=== PATIENT | female | born 1975 | race Caucasian/White ===

== ENCOUNTER 2019-10-26 16:47 | Emergency (ER) | payer MEDICARE, SELFPAY ==
[2019-10-26 17:15] VITALS: BP 121/90; PULSE 81; RESP 16; TEMP 36.5; O2SAT 99; BMI 20.5
--- NOTE | 2019-10-26 18:41 | ED_ITS ---
Entered by [id number], acting as scribe for Liliana Anderson MD Oct 26, 2019 16:47 HPI - General Adult General: Chief complaint: General Medical Stated complaint: flu like symptoms Time Seen by Provider: 10/26/19 19:01 Source: patient Mode of arrival: wheelchair Limitations: no limitations History of Present Illness: HPI narrative: 44-year-old female states she had generalized weakness for last 2 days. She has had low-grade fevers as well states she has had some nausea. She denies any abdominal pain. She had a slight cough. She denies any worsening or improving factors. Patient is normotensive here. She is afebrile here. Onset (ago): hour(s) Associated symptoms: Deny chest pain, dyspnea, headache(s), nausea, rash or vomiting Review of Systems Const: Denies: fever or chills Eyes: Denies: change in vision ENMT: Denies: throat pain or mouth pain Card: Denies: chest pain Resp: Denies: shortness of breath GI: Denies: abdominal pain, nausea, vomiting or diarrhea : Denies: difficulty urinating Musc: Denies: back pain or joint pain Skin/Breast: Denies: rash Neuro: Denies: headache or behavioral changes Psych: Denies: depression Endo: Denies: excessive urination Raul/Lymph: Denies: easy bruising All/Imm: Denies: hives PFSH ED PFSH: Statuses (acute, chronic, etc) shown below reflect problem list status as previously entered and may not be historically accurate Social History Smoking and tobacco status: former smoker Physical Exam Const: COMMON NORMALS: no apparent distress, oriented x3 and healthy appearing HENMT: COMMON NORMALS: normocephalic and external nose normal HEAD & SCALP: normocephalic NOSE: external nose normal Eye: COMMON NORMALS: PERRL PUPIL: Yes PERRL Neck/C-Spine: COMMON NORMALS: full ROM and no lymphadenopathy Chest: COMMONS NORMALS: inspection of chest normal Resp: COMMON NORMALS: normal respiratory effort, no use of accessory muscles and clear to auscultation bilaterally AUSCULTATION: clear to auscultation bilaterally Cardio: COMMON NORMALS: regular rate and regular rhythm RATE: regular rate RHYTHM: regular rhythm GI: COMMON NORMALS: normal to inspection, nondistended, normoactive bowel sounds, soft to palpation, non-tender and no masses PALPATION: Yes soft Back/Pelvis: THORACIC SPINE/UPPER BACK: Yes normal to inspection Extremity: COMMON NORMALS: normal to inspection, full ROM and normal capillary refill Neuro: COMMON NORMALS: oriented x3 Psych: COMMON NORMALS: mental status grossly normal and cooperative Skin: COMMON NORMALS: no rashes or lesions noted GENERAL SKIN EXAM: no rashes or lesions noted Course Vital Signs: Vital signs: Vital Signs Temperature 97.9 F 10/26/19 23:24 Pulse Rate 90 10/26/19 23:24 Respiratory Rate 18 10/26/19 23:24 Blood Pressure 109/79 10/26/19 23:24 Pulse Oximetry 100 10/26/19 23:24 MDM - General Adult MDM Narrative: Medical decision making narrative: Patient presents with generalized weakness and was found to have a urinary tract infection. Patient given IV antibiotics and will prescribe Keflex for home. She is to follow-up with primary care doctor in 2 to 4 days and return if worsening. Lab Data: Labs: Lab Results 10/26/19 10/26/19 10/26/19 Range/Units 17:30 19:45 19:45 WBC Cancelled Corrected WBC Cancelled RBC Cancelled Hgb Cancelled Hct Cancelled MCV Cancelled MCH Cancelled MCHC Cancelled RDW Cancelled Plt Count Cancelled MPV Cancelled Gran % Cancelled Neut % (Auto) Cancelled Lymph % (Auto) Cancelled [place] % (Auto) Cancelled Eos % (Auto) Cancelled Baso % (Auto) Cancelled Neut # (Auto) Cancelled Lymph # (Auto) Cancelled [place] # (Auto) Cancelled Eos # (Auto) Cancelled Baso # (Auto) Cancelled Absolute Gran (aut o) Cancelled Nucleated RBC % (a uto) Cancelled Nucleated RBCs # Cancelled Sodium 134 L (136-145) mmol/L Potassium 4.0 (3.5-5.1) mmol/L Chloride 102 (98-107) mmol/L Carbon Dioxide 17 L (22-29) mmol/L Anion Gap 19.0 (5-19) BUN 13 (6-20) mg/dL Creatinine 0.8 (0.5-0.9) mg/dL GFR Calculation 77.9 L (90-130) mL/min Glucose 93 (74-109) mg/dL Calcium 10.1 H (8.6-10.0) mg/Dl Total Bilirubin 0.3 (0.15-1.2) mg/dL AST 15 (0-32) U/L ALT 9 (0-33) U/L Alkaline Phosphata se 91 (35-105) IU/L Total Protein 8.6 (6.6-8.7) g/dL Albumin 3.9 (3.5-5.2) g/dL Globulin 4.7 H (1.3-4.6) g/dL Lipase 19 (13-60) U/L Urine Color (Yellow) Urine Appearance (CLEAR) Urine pH (5-7) Ur Specific Gravit y (1.005-1.030) Urine Protein (Negative) Urine Glucose (UA) (Normal) Urine Ketones (Negative) Urine Occult Blood (Negative) Urine Nitrate (Negative) Urine Bilirubin (Negative) Prot Sulfosalicyli c Acd (Negative) Urine Urobilinogen (Negative) mg/dL Ur Leukocyte Maggi ase (Negative) Urine RBC (0-2) /hpf Urine WBC (0-5) /hpf Ur Squamous Epith Cells (0-5) Urine Bacteria (NONE) Influenza Type A A g Negative (Negative) POC Influenza B Ag Negative (Negative) 10/26/19 10/26/19 Range/Units 20:20 20:30 WBC 9.1 Corrected WBC RBC 4.56 Hgb 13.4 Hct 42.7 MCV 93.6 MCH 29.4 MCHC 31.4 RDW 13.5 Plt Count 382 MPV 10.2 Gran % Neut % (Auto) 72.5 Lymph % (Auto) 19.5 [place] % (Auto) 6.2 Eos % (Auto) 1.3 Baso % (Auto) 0.3 Neut # (Auto) 6.6 Lymph # (Auto) 1.8 [place] # (Auto) 0.6 Eos # (Auto) 0.1 Baso # (Auto) 0.0 Absolute Gran (aut o) Nucleated RBC % (a uto) 0 Nucleated RBCs # 0.0 Sodium (136-145) mmol/L Potassium (3.5-5.1) mmol/L Chloride (98-107) mmol/L Carbon Dioxide (22-29) mmol/L Anion Gap (5-19) BUN (6-20) mg/dL Creatinine (0.5-0.9) mg/dL GFR Calculation (90-130) mL/min Glucose (74-109) mg/dL Calcium (8.6-10.0) mg/Dl Total Bilirubin (0.15-1.2) mg/dL AST (0-32) U/L ALT (0-33) U/L Alkaline Phosphata se (35-105) IU/L Total Protein (6.6-8.7) g/dL Albumin (3.5-5.2) g/dL Globulin (1.3-4.6) g/dL Lipase (13-60) U/L Urine Color Yellow (Yellow) Urine Appearance Sl cloudy A (CLEAR) Urine pH 9 H (5-7) Ur Specific Gravit y 1.015 (1.005-1.030) Urine Protein 2+ H (Negative) Urine Glucose (UA) Norm (Normal) Urine Ketones 1+ H (Negative) Urine Occult Blood 3+ H (Negative) Urine Nitrate Positive H (Negative) Urine Bilirubin Neg (Negative) Prot Sulfosalicyli c Acd 1+ (Negative) Urine Urobilinogen Norm (Negative) mg/dL Ur Leukocyte Maggi ase 2+ H (Negative) Urine RBC 10-15 H (0-2) /hpf Urine WBC 40-55 H (0-5) /hpf Ur Squamous Epith Cells 0-4 H (0-5) Urine Bacteria 4+ H (NONE) Influenza Type A A g (Negative) POC Influenza B Ag (Negative) Discharge Plan Discharge Patient Disposition: Home, Self-Care Clinical Impression: Acute cystitis Qualifiers: Hematuria presence: without hematuria Qualified Code(s): N30.00 - Acute cystitis without hematuria Condition: Stable Prescriptions: New Keflex 500 mg capsule 500 mg PO Q6H 7 Days Qty: 28 RF: 0 [place] 5-325 mg tablet 1 tab PO Q8H PRN (Reason: pain) Qty: 14 RF: 0 Discharge Orders: Discharge Order (Routine); Ordered 10/26/19 Ordered By: Liliana Anderson Referrals: [id number] [Other] NOT ON FILE,DOCTOR [Primary Care Provider] - (pcp in 3-5 days) Discharge Diet: Advance as tolerated Discharge Activity: Resume usual activity Patient Instructions: Urinary Tract Infection in Women (ED) Discharge Date/Time: 10/26/19 21:21 Coding Level of Care Code ED Automated Cutting Machine Operator for Julien Magaña The documentation recorded by the [email or web address], [id number], accurately reflects the service I personally performed and the decisions made by Justin nicole Korby, MD Oct 26, 2019 16:47
--- NOTE | 2019-10-26 19:05 | W.ED.GENADLT ---
HPI - General Adult General: Chief complaint: General Medical Stated complaint: flu like symptoms Time Seen by Provider: 10/26/19 19:01 Source: patient Mode of arrival: wheelchair History of Present Illness: HPI narrative: 44 yo f came to the [place] [facility] with family with flu like symptoms. Onset was today. Pt states that she has had a cough with nausea and vomiting along with back pain. Pt states that she hurts all over her back. Pt denies a fever and chills at this time. MD complaint: poss flu Onset (ago): day(s) (today) Severity: mild Exacerbating factors: none Associated symptoms: Reports nausea and vomiting; Deny chest pain, cough or dyspnea Review of Systems General: Reports: 10 or more systems reviewed and unremarkable except in HPI and below Const: Reports: fatigue; Denies: fever ENMT: Denies: throat pain Card: Denies: chest pain Resp: Reports: productive cough; Denies: shortness of breath GI: Reports: nausea and vomiting Musc: Denies: neck pain PFSH ED PFSH: Statuses (acute, chronic, etc) shown below reflect problem list status as previously entered and may not be historically accurate Social History Smoking and tobacco status: former smoker Course Vital Signs: Vital signs: Vital Signs Temperature 97.7 F 10/26/19 17:15 Pulse Rate 81 10/26/19 17:15 Respiratory Rate 16 10/26/19 17:15 Blood Pressure 121/90 10/26/19 17:15 Pulse Oximetry 99 10/26/19 17:15 Discharge Plan Discharge Prescriptions: No Action No Known Home Medications RF: 0 Coding Level of Care Code ED Bark Tanner for Julien Magaña
--- NOTE | 2019-10-26 19:08 | XR_ITS ---
WS: [id number] Portable AP upright chest, 10/26/2019 Clinical Data: cough Comparison: Portable chest, 03/29/2019 Findings: No nodules, masses or effusions are seen. The heart is normal. The pulmonary vascularity is not increased. No pneumonia or pneumothorax is seen. There is a skinfold overlying the lateral aspec t of the right chest. There is a dextroscoliosis of the thoracic spine. The patient is had posterior fusion along with an anterior cervical fusion of the cervical spine. XR/XR chest 1V portable [id number] Impression: Negative chest.
[2019-10-26 20:24] LABS: Alanine Aminotransferase 9 U/L (0-33); Albumin Level 3.9 g/dL (3.5-5.2); Alkaline Phosphatase 91 IU/L (35-105); Aspartate Amino Transferase 15 U/L (0-32); Blood Urea Nitrogen 13 mg/dL (6-20); Calcium 10.1 mg/Dl (8.6-10.0); Carbon Dioxide 17 mmol/L (22-29); Chloride 102 mmol/L (98-107); Globulin 4.7 g/dL (1.3-4.6); Glomerular Filtration Rate 77.9 mL/min (90-130); Glucose 93 mg/dL (74-109); Lipase 19 U/L (13-60); Sodium 134 mmol/L (136-145); Total Bilirubin 0.3 mg/dL (0.15-1.2); Total Protein 8.6 g/dL (6.6-8.7)
--- NOTE | 2019-10-26 20:25 | PC.NURSE ---
Patient requested for an extra pillow for comfort, pillow was provided.
[2019-10-26] MEDS: ondansetron 2 mg/ML SDV 2 mL 4 MG IVP (20:39)
[2019-10-26] MEDS: sodium chloride 0.9% 1,000 ML 999 ML IV (20:40)
[2019-10-26 21:00] VITALS: BP 151/84; PULSE 89; RESP 19; O2SAT 99
[2019-10-26 21:12] LABS: Basophils % 0.3 %; Eosinophils # 0.1 10^3/uL (0.0-0.8); Eosinophils % 1.3 %; Hematocrit 42.7 % (37.0-47.0); Hemoglobin 13.4 g/dL (11.5-15.3); Lymphocytes # 1.8 10^3/uL (0.8-4.8); Lymphocytes % 19.5 %; Mean Corpuscular HGB Conc 31.4 g/dL (30.0-36.0); Mean Corpuscular Hemoglobin 29.4 pg (28.0-34.0); Mean Corpuscular Volume 93.6 fL (81-99); Mean Platelet Volume 10.2 fL (7.4-10.4); Monocytes # 0.6 10^3/uL (0.2-0.9); Monocytes % 6.2 %; Neutrophils # 6.6 10^3/uL (1.8-7.7); Neutrophils % 72.5 %; Nucleated Red Blood Cells % 0 %; Platelet Count 382 10^3/cmm (130-400); Red Blood Count 4.56 10^6/uL (4.1-5.3); Red Cell Distribution Width 13.5 % (12.1-15.1); White Blood Count 9.1 10^3/uL (4.0-10.0)
[2019-10-26] MEDS: morphine 4 mg/mL SDV 1 mL IVP (21:18)
[2019-10-26 21:42] LABS: Urine Color Yellow (Yellow)
[2019-10-26 21:43] LABS: Bilirubin Urine Neg (Negative); Blood Urine 3+ (Negative); Glucose Urine UA Norm (Normal); Ketones Urine 1+ (Negative); Leukocyte Esterase Urine 2+ (Negative); Nitrate Urine Positive (Negative); Protein Urine 2+ (Negative); Specific Gravity, Urine 1.015 (1.005-1.030); Urobilinogen Urine Norm (Negative); pH Urine 9 (5-7)
[2019-10-26 21:44] LABS: Sulfosalicylic Acid Urine 1+ (Negative)
[2019-10-26 22:21] LABS: Add Urine Culture? Yes; Bacteria Urine 4+; Squamous Epithelial Cell Urine 0-4 (0-5); WBC Urine 40-55 /hpf (0-5)
[2019-10-26 22:22] LABS: Influenza A by IFA Negative (Negative); Influenza B by IFA Negative (Negative)
[2019-10-26] MEDS: cefTRIAXone 1,000 MG in sodium chloride 0.9% (plus) 50 ML 100 MG IV (22:34)
[2019-10-26 23:02] LABS: Add RBC Morph No
[2019-10-26 23:03] LABS: Slide Review Slide Review Perform
[2019-10-26 23:24] VITALS: BP 109/79; PULSE 90; RESP 18; TEMP 36.6; O2SAT 100
== END 2019-10-26 21:21 | disposition home or self-care (01) ==
PROVIDERS: Family Medicine; Emergency Provider Emergency Medicine; Family Provider Psychiatry & Neurology Neurology
DX: N30.00 Acute cystitis without hematuria (principal); Z87.891 Personal history of nicotine dependence
CPT/HCPCS: 36415; 71045; 80053; 81001; 83690; 85025; 87077; 87086; 87186; 87804; 96360; 96365; 96374; 99282; J0696; J2270; J2405; J7030

== ENCOUNTER 2019-11-09 19:40 | Emergency (ER) | payer MEDICARE, SELFPAY ==
[2019-11-09 20:10] VITALS: BP 116/75; PULSE 99; RESP 17; TEMP 36.3; O2SAT 98; BMI 20.5
--- NOTE | 2019-11-09 21:11 | PC.NURSE ---
Aidee Singh at [facility] did bladder surgery, 2 months ago. Dx with bladder infection 2 weeks ago due to inadequate [place] care.
--- NOTE | 2019-11-09 21:38 | ED_ITS ---
Entered by Hanny De Jesus, acting as scribe for Abbey Gonzales Nov 09, 2019 19:40 Documented by User: Abbey Gonzales 11/10/19 00:19 HPI - Female Genitourinary General: Chief complaint: Urogenital-Female Stated complaint: bladder infection Time Seen by Provider: 11/09/19 21:38 Source: patient Mode of arrival: wheelchair Limitations: no limitations History of Present Illness: HPI Narrative: 44 yo Female presents to ED with complaint of possible bladder infection. Pt states that she has a alfaro catheter that was put in October 16. Pt states that it richards and she has pain all over. Pt also states she has had a fever. MD elicited complaint: UTI , back pain and difficulty urinating (burning) Pertinent past history: other (Alfaro Catheter) Onset (ago): unknown Location of symptoms: low back and other (Pain all over) Severity: severe Female Urogenital Radiation: Non-Radiating Severity scale (1-10): 10 Quality of pain: burning Consistency: constant Vaginal discharge: none Vaginal bleeding: none Urinary symptoms: Difficulty Urinating (burning) Exacerbating factors: none Relieving factors: none Associated symptoms: Reports fevers/chills and other (back pain); Deny abdominal pain, headache(s), nausea or syncope Treatment prior to arrival: none Review of Systems General: Reports: other (negative unless marked) Const: Reports: fever and body aches; Denies: chills, fatigue, malaise or diaphoresis Eyes: Denies: change in vision or blurry vision ENMT: Denies: throat pain, painful swallowing, hoarseness, ear pain, ear discharge, Change in hearing or nasal discharge Card: Denies: chest pain, palpitations, irregular heart rhythm, syncope, pre- syncope, shortness of breath on exertion or shortness of breath when lying down Resp: Denies: shortness of breath, productive cough, non-productive cough, wheezing, coughing up blood or chest congestion GI: Denies: abdominal pain, nausea, vomiting, vomiting blood, coffee grounds in vomit, diarrhea, constipation, cramping, blood in stool or black tarry stool : Reports: painful urination (burning); Denies: flank pain, urinary frequency, urinary urgency, decreased urine ouput, urinary incontinence or blood in urine Musc: Reports: back pain; Denies: neck pain, extremity pain, extremity swelling, joint pain, joint swelling, joint warmth or joint stiffness Skin/Breast: Denies: rash, skin tenderness or yellow skin Neuro: Denies: headache, numbness in extremities, weakness in extremities, changes in sensation, lack of coordination, difficulty walking, dizziness, vertigo or confusion Endo: Denies: excessive thirst, tired all the time, cold intolerance, excessive sweating, flushing or hot flashes Raul/Lymph: Denies: easy bruising, easy bleeding, petechiae or enlarged lymph nodes All/Imm: Denies: hives, throat swelling, tongue swelling, facial swelling or acute wheezing PFSH ED PFSH: Statuses (acute, chronic, etc) shown below reflect problem list status as previously entered and may not be historically accurate Social History Smoking and tobacco status: former smoker Physical Exam Const: COMMON NORMALS: no apparent distress, oriented x3, no limitations, healthy appearing and well nourished EXAM LIMITATIONS: no altered mental status GENERAL APPEARANCE: cooperative, well kempt and well developed ORIENTATION/CONSCIOUSNESS: Yes awake HENMT: COMMON NORMALS: normocephalic, head/scalp atraumatic, hearing grossly normal bilaterally, external ears normal, EAC's normal, external nose normal and moist oral mucous membranes HEAD & SCALP: normal to inspection, normocephalic and atraumatic FACE & SINUS: normal facial exam and face symmetric NOSE: external nose normal and nares normal EXTERNAL EAR: Yes external ears normal EXTERNAL AUDITORY CANAL: EAC's normal MOUTH: oral and palatal mucosa normal and tongue normal Eye: COMMON NORMALS: PERRL, EOMs intact bilaterally, conjunctivae normal and no scleral icterus GENERAL EYE: normal appearance of both eyes and normal light reflex CONJUNCTIVA: Yes conjunctivae normal SCLERA: sclerae normal CORNEA: Yes corneas normal PUPIL: Yes PERRL DIRECT OPHTHALMOSCOPY: Yes normal light reflex Neck/C-Spine: COMMON NORMALS: full ROM, no lymphadenopathy, supple, no meningeal signs and no JVD GENERAL: Yes normal visual inspection and Yes trachea midline CERVICAL SPINE: Yes cervical ROM normal Chest: COMMONS NORMALS: inspection of chest normal and palpation of chest normal Resp: COMMON NORMALS: normal respiratory effort, no retractions, no use of accessory muscles and clear to auscultation bilaterally EFFORT & INSPECTION: Yes able to speak in complete sentences AUSCULTATION: clear to auscultation bilaterally Cardio: COMMON NORMALS: no JVD, regular rate, regular rhythm, S1 normal heart sound, S2 normal heart sound, no gallops, no clicks, no murmurs and no rub JUGULAR VENOUS DISTENTION: no JVD RATE: regular rate RHYTHM: regular rhythm HEART SOUNDS: S1 normal and S2 normal GI: COMMON NORMALS: soft to palpation, non-tender, no hepatosplenomegaly and no masses INSPECTION: Yes normal to inspection PALPATION: Yes soft and Yes no hepatosplenomegaly : COMMON NORMALS: Yes no CVA tenderness BLADDER/KIDNEY EXAM: Yes no CVA tenderness Back/Pelvis: COMMON NORMALS: no CVA tenderness, thoracic and lumbar spine normal to inspection, no thoracic nor lumbar tenderness and thoraco-lumbar ROM normal Extremity: COMMON NORMALS: normal to inspection, full ROM, normal capillary refill, no joint enlargement, no clubbing, cyanosis or edema and no calf tenderness Neuro: COMMON NORMALS: oriented x3, CN's II-XII intact bilaterally, moves all extremities, no focal motor deficits and no sensory deficits noted MENINGEAL SIGNS: Yes no meningeal signs Psych: COMMON NORMALS: mental status grossly normal, thought process normal, cooperative, affect normal, speech normal and activity/motor behavior normal APPEARANCE: Yes well kempt SPEECH: Yes normal speech THOUGHT PROCESS: normal thought process Skin: COMMON NORMALS: no rashes or lesions noted, skin turgor normal, no jaundice, no petechiae and no mottling GENERAL SKIN EXAM: no rashes or lesions noted and turgor normal Course Vital Signs: Vital signs: Vital Signs Temperature 97.3 F L 11/09/19 20:10 Pulse Rate 99 11/09/19 20:10 Respiratory Rate 17 11/09/19 20:10 Blood Pressure 116/75 11/09/19 20:10 Pulse Oximetry 98 11/09/19 20:10 MDM - Female Lab Data: Labs: Lab Results 11/09/19 11/09/19 11/09/19 Range/Units 21:52 21:52 21:52 WBC 10.2 H (4.0-10.0) 10^3/ uL RBC 4.13 (4.1-5.3) 10^6/u L Hgb 11.6 (11.5-15.3) g/dL Hct 36.4 L (37.0-47.0) % MCV 88.1 (81-99) fL MCH 28.1 (28.0-34.0) pg MCHC 31.9 (30.0-36.0) g/dL RDW 13.1 (12.1-15.1) % Plt Count 319 (130-400) 10^3/c mm MPV 9.7 (7.4-10.4) fL Neut % (Auto) 70.4 % Lymph % (Auto) 19.6 % Mercer % (Auto) 7.3 % Eos % (Auto) 2.1 % Baso % (Auto) 0.3 % Neut # (Auto) 7.2 (1.8-7.7) 10^3/u L Lymph # (Auto) 2.0 (0.8-4.8) 10^3/u L Mercer # (Auto) 0.8 (0.2-0.9) 10^3/u L Eos # (Auto) 0.2 (0.0-0.8) 10^3/u L Baso # (Auto) 0.0 (0.0-0.1) 10^3/u L Nucleated RBC % (a uto) 0 % Nucleated RBCs # 0.0 /100WBC Sodium 138 (136-145) mmol/L Potassium 3.7 (3.5-5.1) mmol/L Chloride 103 (98-107) mmol/L Carbon Dioxide 21 L (22-29) mmol/L Anion Gap 17.7 (5-19) BUN 17 (6-20) mg/dL Creatinine 0.8 (0.5-0.9) mg/dL GFR Calculation 77.9 L (90-130) mL/min Glucose 104 (74-109) mg/dL Lactic Acid (0.5-2.2) mmol/L Calcium 9.8 (8.6-10.0) mg/Dl Magnesium 1.9 (1.7-2.3) mg/dL Total Bilirubin 0.2 (0.15-1.2) mg/dL AST 12 (0-32) U/L ALT 8 (0-33) U/L Alkaline Phosphata se 80 (35-105) IU/L Total Protein 7.4 (6.6-8.7) g/dL Albumin 4.2 (3.5-5.2) g/dL Globulin 3.2 (1.3-4.6) g/dL Lipase 24 (13-60) U/L HCG, Qual (Negative) Urine Color (Yellow) Urine Appearance (CLEAR) Urine pH (5-7) Ur Specific Gravit y (1.005-1.030) Urine Protein (Negative) Urine Glucose (UA) (Normal) Urine Ketones (Negative) Urine Occult Blood (Negative) Urine Nitrate (Negative) Urine Bilirubin (NEGATIVE) Urine Urobilinogen (Negative) mg/dL Ur Leukocyte Maggi ase (Negative) Urine RBC (0-2) /hpf Urine WBC (0-5) /hpf Ur Squamous Epith Cells (0-5) Ur Transition Epit h Cell /hpf Urine Bacteria (NONE) Influenza Type A A g (Negative) POC Influenza B Ag (Negative) 11/09/19 11/09/19 11/09/19 Range/Units 22:10 23:17 23:17 WBC (4.0-10.0) 10^3/ uL RBC (4.1-5.3) 10^6/u L Hgb (11.5-15.3) g/dL Hct (37.0-47.0) % MCV (81-99) fL MCH (28.0-34.0) pg MCHC (30.0-36.0) g/dL RDW (12.1-15.1) % Plt Count (130-400) 10^3/c mm MPV (7.4-10.4) fL Neut % (Auto) % Lymph % (Auto) % Mercer % (Auto) % Eos % (Auto) % Baso % (Auto) % Neut # (Auto) (1.8-7.7) 10^3/u L Lymph # (Auto) (0.8-4.8) 10^3/u L Mercer # (Auto) (0.2-0.9) 10^3/u L Eos # (Auto) (0.0-0.8) 10^3/u L Baso # (Auto) (0.0-0.1) 10^3/u L Nucleated RBC % (a uto) % Nucleated RBCs # /100WBC Sodium (136-145) mmol/L Potassium (3.5-5.1) mmol/L Chloride (98-107) mmol/L Carbon Dioxide (22-29) mmol/L Anion Gap (5-19) BUN (6-20) mg/dL Creatinine (0.5-0.9) mg/dL GFR Calculation (90-130) mL/min Glucose (74-109) mg/dL Lactic Acid 1.1 (0.5-2.2) mmol/L Calcium (8.6-10.0) mg/Dl Magnesium (1.7-2.3) mg/dL Total Bilirubin (0.15-1.2) mg/dL AST (0-32) U/L ALT (0-33) U/L Alkaline Phosphata se (35-105) IU/L Total Protein (6.6-8.7) g/dL Albumin (3.5-5.2) g/dL Globulin (1.3-4.6) g/dL Lipase (13-60) U/L HCG, Qual Negative (Negative) Urine Color (Yellow) Urine Appearance (CLEAR) Urine pH (5-7) Ur Specific Gravit y (1.005-1.030) Urine Protein (Negative) Urine Glucose (UA) (Normal) Urine Ketones (Negative) Urine Occult Blood (Negative) Urine Nitrate (Negative) Urine Bilirubin (NEGATIVE) Urine Urobilinogen (Negative) mg/dL Ur Leukocyte Maggi ase (Negative) Urine RBC (0-2) /hpf Urine WBC (0-5) /hpf Ur Squamous Epith Cells (0-5) Ur Transition Epit h Cell /hpf Urine Bacteria (NONE) Influenza Type A A g Negative (Negative) POC Influenza B Ag Negative (Negative) 11/09/19 Range/Units 23:17 WBC (4.0-10.0) 10^3/ uL RBC (4.1-5.3) 10^6/u L Hgb (11.5-15.3) g/dL Hct (37.0-47.0) % MCV (81-99) fL MCH (28.0-34.0) pg MCHC (30.0-36.0) g/dL RDW (12.1-15.1) % Plt Count (130-400) 10^3/c mm MPV (7.4-10.4) fL Neut % (Auto) % Lymph % (Auto) % Mercer % (Auto) % Eos % (Auto) % Baso % (Auto) % Neut # (Auto) (1.8-7.7) 10^3/u L Lymph # (Auto) (0.8-4.8) 10^3/u L Mercer # (Auto) (0.2-0.9) 10^3/u L Eos # (Auto) (0.0-0.8) 10^3/u L Baso # (Auto) (0.0-0.1) 10^3/u L Nucleated RBC % (a uto) % Nucleated RBCs # /100WBC Sodium (136-145) mmol/L Potassium (3.5-5.1) mmol/L Chloride (98-107) mmol/L Carbon Dioxide (22-29) mmol/L Anion Gap (5-19) BUN (6-20) mg/dL Creatinine (0.5-0.9) mg/dL GFR Calculation (90-130) mL/min Glucose (74-109) mg/dL Lactic Acid (0.5-2.2) mmol/L Calcium (8.6-10.0) mg/Dl Magnesium (1.7-2.3) mg/dL Total Bilirubin (0.15-1.2) mg/dL AST (0-32) U/L ALT (0-33) U/L Alkaline Phosphata se (35-105) IU/L Total Protein (6.6-8.7) g/dL Albumin (3.5-5.2) g/dL Globulin (1.3-4.6) g/dL Lipase (13-60) U/L HCG, Qual (Negative) Urine Color Yellow (Yellow) Urine Appearance Sl hazy (CLEAR) Urine pH 7 (5-7) Ur Specific Gravit y 1.010 (1.005-1.030) Urine Protein 1+ H (Negative) Urine Glucose (UA) Norm (Normal) Urine Ketones 1+ H (Negative) Urine Occult Blood 3+ H (Negative) Urine Nitrate Positive H (Negative) Urine Bilirubin Neg (NEGATIVE) Urine Urobilinogen Norm (Negative) mg/dL Ur Leukocyte Maggi ase 2+ H (Negative) Urine RBC Too numerous to c nt H (0-2) /hpf Urine WBC Too numerous to c nt H (0-5) /hpf Ur Squamous Epith Cells 25-40 H (0-5) Ur Transition Epit h Cell 5-10 /hpf Urine Bacteria 4+ H (NONE) Influenza Type A A g (Negative) POC Influenza B Ag (Negative) Discharge Plan Discharge Patient Disposition: Home, Self-Care Clinical Impression: Urinary tract infection Qualifiers: Urinary tract infection type: acute cystitis Hematuria presence: without hematuria Qualified Code(s): N30.00 - Acute cystitis without hematuria Condition: Stable Prescriptions: New Macrobid 100 mg capsule 100 mg PO BID 7 Days Qty: 14 RF: 0 No Action [place] 5-325 mg tablet 1 tab PO Q8H PRN (Reason: pain) Qty: 14 RF: 0 Discharge Orders: Discharge Order (Routine); Ordered 11/10/19 Ordered By: Liliana Anderson Referrals: [id number] [Other] NOT ON FILE,DOCTOR [Primary Care Provider] - Discharge Diet: Advance as tolerated Discharge Activity: Resume usual activity Patient Instructions: Urinary Tract Infection in Women (ED) Coding Level of Care Code ED Deck Supervisor for Chg Fwd Exam Problem Focused Documented by User: Liliana Anderson MD 11/10/19 03:39 HPI - Female Genitourinary General: Chief complaint: Urogenital-Female Stated complaint: bladder infection Time Seen by Provider: 11/09/19 21:38 PFSH ED PFSH: Statuses (acute, chronic, etc) shown below reflect problem list status as previously entered and may not be historically accurate Social History Smoking and tobacco status: former smoker Course Vital Signs: Vital signs: Vital Signs Temperature 97.3 F L 11/09/19 20:10 Pulse Rate 99 11/09/19 20:10 Respiratory Rate 17 11/09/19 20:10 Blood Pressure 116/75 11/09/19 20:10 Pulse Oximetry 98 11/09/19 20:10 MDM - Female MDM Narrative: Medical decision making narrative: Patient presents here with acute cystitis. Patient has no signs of pyelonephritis. Patient's lactate level is normal. Patient's lab work is normal as well. Will place patient on Macrobid and patient is stable for discharge and is return if worsening. Lab Data: Labs: Lab Results 11/09/19 11/09/19 11/09/19 Range/Units 21:52 21:52 21:52 WBC 10.2 H (4.0-10.0) 10^3/ uL RBC 4.13 (4.1-5.3) 10^6/u L Hgb 11.6 (11.5-15.3) g/dL Hct 36.4 L (37.0-47.0) % MCV 88.1 (81-99) fL MCH 28.1 (28.0-34.0) pg MCHC 31.9 (30.0-36.0) g/dL RDW 13.1 (12.1-15.1) % Plt Count 319 (130-400) 10^3/c mm MPV 9.7 (7.4-10.4) fL Neut % (Auto) 70.4 % Lymph % (Auto) 19.6 % Mercer % (Auto) 7.3 % Eos % (Auto) 2.1 % Baso % (Auto) 0.3 % Neut # (Auto) 7.2 (1.8-7.7) 10^3/u L Lymph # (Auto) 2.0 (0.8-4.8) 10^3/u L Mercer # (Auto) 0.8 (0.2-0.9) 10^3/u L Eos # (Auto) 0.2 (0.0-0.8) 10^3/u L Baso # (Auto) 0.0 (0.0-0.1) 10^3/u L Nucleated RBC % (a uto) 0 % Nucleated RBCs # 0.0 /100WBC Sodium 138 (136-145) mmol/L Potassium 3.7 (3.5-5.1) mmol/L Chloride 103 (98-107) mmol/L Carbon Dioxide 21 L (22-29) mmol/L Anion Gap 17.7 (5-19) BUN 17 (6-20) mg/dL Creatinine 0.8 (0.5-0.9) mg/dL GFR Calculation 77.9 L (90-130) mL/min Glucose 104 (74-109) mg/dL Lactic Acid (0.5-2.2) mmol/L Calcium 9.8 (8.6-10.0) mg/Dl Magnesium 1.9 (1.7-2.3) mg/dL Total Bilirubin 0.2 (0.15-1.2) mg/dL AST 12 (0-32) U/L ALT 8 (0-33) U/L Alkaline Phosphata se 80 (35-105) IU/L Total Protein 7.4 (6.6-8.7) g/dL Albumin 4.2 (3.5-5.2) g/dL Globulin 3.2 (1.3-4.6) g/dL Lipase 24 (13-60) U/L HCG, Qual (Negative) Urine Color (Yellow) Urine Appearance (CLEAR) Urine pH (5-7) Ur Specific Gravit y (1.005-1.030) Urine Protein (Negative) Urine Glucose (UA) (Normal) Urine Ketones (Negative) Urine Occult Blood (Negative) Urine Nitrate (Negative) Urine Bilirubin (NEGATIVE) Urine Urobilinogen (Negative) mg/dL Ur Leukocyte Maggi ase (Negative) Urine RBC (0-2) /hpf Urine WBC (0-5) /hpf Ur Squamous Epith Cells (0-5) Ur Transition Epit h Cell /hpf Urine Bacteria (NONE) Influenza Type A A g (Negative) POC Influenza B Ag (Negative) 11/09/19 11/09/19 11/09/19 Range/Units 22:10 23:17 23:17 WBC (4.0-10.0) 10^3/ uL RBC (4.1-5.3) 10^6/u L Hgb (11.5-15.3) g/dL Hct (37.0-47.0) % MCV (81-99) fL MCH (28.0-34.0) pg MCHC (30.0-36.0) g/dL RDW (12.1-15.1) % Plt Count (130-400) 10^3/c mm MPV (7.4-10.4) fL Neut % (Auto) % Lymph % (Auto) % Mercer % (Auto) % Eos % (Auto) % Baso % (Auto) % Neut # (Auto) (1.8-7.7) 10^3/u L Lymph # (Auto) (0.8-4.8) 10^3/u L Mercer # (Auto) (0.2-0.9) 10^3/u L Eos # (Auto) (0.0-0.8) 10^3/u L Baso # (Auto) (0.0-0.1) 10^3/u L Nucleated RBC % (a uto) % Nucleated RBCs # /100WBC Sodium (136-145) mmol/L Potassium (3.5-5.1) mmol/L Chloride (98-107) mmol/L Carbon Dioxide (22-29) mmol/L Anion Gap (5-19) BUN (6-20) mg/dL Creatinine (0.5-0.9) mg/dL GFR Calculation (90-130) mL/min Glucose (74-109) mg/dL Lactic Acid 1.1 (0.5-2.2) mmol/L Calcium (8.6-10.0) mg/Dl Magnesium (1.7-2.3) mg/dL Total Bilirubin (0.15-1.2) mg/dL AST (0-32) U/L ALT (0-33) U/L Alkaline Phosphata se (35-105) IU/L Total Protein (6.6-8.7) g/dL Albumin (3.5-5.2) g/dL Globulin (1.3-4.6) g/dL Lipase (13-60) U/L HCG, Qual Negative (Negative) Urine Color (Yellow) Urine Appearance (CLEAR) Urine pH (5-7) Ur Specific Gravit y (1.005-1.030) Urine Protein (Negative) Urine Glucose (UA) (Normal) Urine Ketones (Negative) Urine Occult Blood (Negative) Urine Nitrate (Negative) Urine Bilirubin (NEGATIVE) Urine Urobilinogen (Negative) mg/dL Ur Leukocyte Maggi ase (Negative) Urine RBC (0-2) /hpf Urine WBC (0-5) /hpf Ur Squamous Epith Cells (0-5) Ur Transition Epit h Cell /hpf Urine Bacteria (NONE) Influenza Type A A g Negative (Negative) POC Influenza B Ag Negative (Negative) 11/09/19 Range/Units 23:17 WBC (4.0-10.0) 10^3/ uL RBC (4.1-5.3) 10^6/u L Hgb (11.5-15.3) g/dL Hct (37.0-47.0) % MCV (81-99) fL MCH (28.0-34.0) pg MCHC (30.0-36.0) g/dL RDW (12.1-15.1) % Plt Count (130-400) 10^3/c mm MPV (7.4-10.4) fL Neut % (Auto) % Lymph % (Auto) % Mercer % (Auto) % Eos % (Auto) % Baso % (Auto) % Neut # (Auto) (1.8-7.7) 10^3/u L Lymph # (Auto) (0.8-4.8) 10^3/u L Mercer # (Auto) (0.2-0.9) 10^3/u L Eos # (Auto) (0.0-0.8) 10^3/u L Baso # (Auto) (0.0-0.1) 10^3/u L Nucleated RBC % (a uto) % Nucleated RBCs # /100WBC Sodium (136-145) mmol/L Potassium (3.5-5.1) mmol/L Chloride (98-107) mmol/L Carbon Dioxide (22-29) mmol/L Anion Gap (5-19) BUN (6-20) mg/dL Creatinine (0.5-0.9) mg/dL GFR Calculation (90-130) mL/min Glucose (74-109) mg/dL Lactic Acid (0.5-2.2) mmol/L Calcium (8.6-10.0) mg/Dl Magnesium (1.7-2.3) mg/dL Total Bilirubin (0.15-1.2) mg/dL AST (0-32) U/L ALT (0-33) U/L Alkaline Phosphata se (35-105) IU/L Total Protein (6.6-8.7) g/dL Albumin (3.5-5.2) g/dL Globulin (1.3-4.6) g/dL Lipase (13-60) U/L HCG, Qual (Negative) Urine Color Yellow (Yellow) Urine Appearance Sl hazy (CLEAR) Urine pH 7 (5-7) Ur Specific Gravit y 1.010 (1.005-1.030) Urine Protein 1+ H (Negative) Urine Glucose (UA) Norm (Normal) Urine Ketones 1+ H (Negative) Urine Occult Blood 3+ H (Negative) Urine Nitrate Positive H (Negative) Urine Bilirubin Neg (NEGATIVE) Urine Urobilinogen Norm (Negative) mg/dL Ur Leukocyte Maggi ase 2+ H (Negative) Urine RBC Too numerous to c nt H (0-2) /hpf Urine WBC Too numerous to c nt H (0-5) /hpf Ur Squamous Epith Cells 25-40 H (0-5) Ur Transition Epit h Cell 5-10 /hpf Urine Bacteria 4+ H (NONE) Influenza Type A A g (Negative) POC Influenza B Ag (Negative) Discharge Plan Discharge Patient Disposition: Home, Self-Care Clinical Impression: Urinary tract infection Qualifiers: Urinary tract infection type: acute cystitis Hematuria presence: without hematuria Qualified Code(s): N30.00 - Acute cystitis without hematuria Condition: Stable Prescriptions: New Macrobid 100 mg capsule 100 mg PO BID 7 Days Qty: 14 RF: 0 No Action [place] 5-325 mg tablet 1 tab PO Q8H PRN (Reason: pain) Qty: 14 RF: 0 Discharge Orders: Discharge Order (Routine); Ordered 11/10/19 Ordered By: Liliana Anderson Referrals: [id number] [Other] NOT ON FILE,DOCTOR [Primary Care Provider] - Discharge Diet: Advance as tolerated Discharge Activity: Resume usual activity Patient Instructions: Urinary Tract Infection in Women (ED) Coding Level of Care Code ED Deck Supervisor for Chg Fwd Exam Problem Focused The documentation recorded by the Neal dodge Carmen, accurately reflects the service I personally performed and the decisions made by Christian nicole Eli N Nov 09, 2019 19:40
--- NOTE | 2019-11-09 21:53 | XR_ITS ---
WS: [id number] PORTABLE CHEST HISTORY: cough COMPARISON: 10/26/2019 Mild pulmonary hyperinflation. No mass or nodule or pneumonia. Normal vasculature. No pleural effusio n or pneumothorax. Cardiac size: Normal. Mediastinum/Aorta: Normal mediastinum. Moderate RIGHT convex curvature thoracic spine. XR/XR chest 1V portable [id number] IMPRESSION: Unremarkable portable chest.
--- NOTE | 2019-11-09 21:53 | CTR_ITS ---
PROCEDURE INFORMATION: Exam: CT Abdomen And Pelvis With Contrast Exam date and time: 11/09/2019 10:21 PM Age: 44 years old Clinical indication: Abdominal pain; Acute; Prior surgery; Surgery date: 1-6 months; Surgery type: Hysterectomy, bladder repair 2 months ago TECHNIQUE: Imaging protocol: Computed tomography of the abdomen and pelvis with intravenous contrast. Total DLP: 669.71 mGy-cm Radiation optimization: All CT scans at this facility use at least one of these dose optimization techniques: automated exposure control; mA and/or kV adjustment per patient size (includes targeted exams where dose is matched to clinical indication); or iterative reconstruction. Contrast material: OMNI 300; Contrast volume: 95 ml; Contrast route: 20G; COMPARISON: CT abdomen pelvis wo con [id number] 06/07/2019 10:47 AM FINDINGS: Tubes, catheters and devices: A catheter is present in the urinary bladder. Liver: Normal. No mass. Gallbladder and bile ducts: Normal. No calcified stones. No ductal dilation. Pancreas: Normal. No ductal dilation. Spleen: Normal. No splenomegaly. Adrenals: A 12 mm left adrenal nodule, likely adenoma, is again noted. The right adrenal gland appears normal. Kidneys and ureters: Normal. No hydronephrosis. Stomach and bowel: The rectum is mildly distended with formed stool. No intestinal obstruction. Appendix: The appendix is normal. Intraperitoneal space: Unremarkable. No free air. No significant fluid collection. Vasculature: Unremarkable. No abdominal aortic aneurysm. Lymph nodes: Unremarkable. No enlarged lymph nodes. Bladder: Urinary bladder wall thickening is noted. Mild perivesicular fat stranding is also seen. Reproductive: The uterus is absent. A 4.4 cm left ovarian cyst is noted. A small 2 cm right ovarian cyst is also seen. Bones/joints: Unremarkable. No acute fracture. Soft tissues: Unremarkable. CT/CT abdomen pelvis w con* [id number] IMPRESSION: 1. Cystitis, correlate with urinalysis. 2. Stable left adrenal nodule/adenoma. 3. Left ovary 4.4 cm cyst. Radiation Dose CTDIVOL = (mGy): DLP = 669.71 (mGy-cm)
[2019-11-09 22:04] LABS: Basophils % 0.3 %; Eosinophils # 0.2 10^3/uL (0.0-0.8); Eosinophils % 2.1 %; Hematocrit 36.4 % (37.0-47.0); Hemoglobin 11.6 g/dL (11.5-15.3); Lymphocytes % 19.6 %; Mean Corpuscular HGB Conc 31.9 g/dL (30.0-36.0); Mean Corpuscular Hemoglobin 28.1 pg (28.0-34.0); Mean Corpuscular Volume 88.1 fL (81-99); Mean Platelet Volume 9.7 fL (7.4-10.4); Monocytes # 0.8 10^3/uL (0.2-0.9); Monocytes % 7.3 %; Neutrophils # 7.2 10^3/uL (1.8-7.7); Neutrophils % 70.4 %; Nucleated Red Blood Cells % 0 %; Platelet Count 319 10^3/cmm (130-400); Red Blood Count 4.13 10^6/uL (4.1-5.3); Red Cell Distribution Width 13.1 % (12.1-15.1); White Blood Count 10.2 10^3/uL (4.0-10.0)
[2019-11-09] MEDS: ondansetron 2 mg/ML SDV 2 mL 4 MG IVP (22:12)
[2019-11-09] MEDS: sodium chloride 0.9% 1,632.93 ML 1632.9 ML IV (22:12)
[2019-11-09 22:49] LABS: Alanine Aminotransferase 8 U/L (0-33); Albumin Level 4.2 g/dL (3.5-5.2); Alkaline Phosphatase 80 IU/L (35-105); Anion Gap 17.7 (5-19); Aspartate Amino Transferase 12 U/L (0-32); Blood Urea Nitrogen 17 mg/dL (6-20); Calcium 9.8 mg/Dl (8.6-10.0); Carbon Dioxide 21 mmol/L (22-29); Chloride 103 mmol/L (98-107); Globulin 3.2 g/dL (1.3-4.6); Glomerular Filtration Rate 77.9 mL/min (90-130); Glucose 104 mg/dL (74-109); Potassium 3.7 mmol/L (3.5-5.1); Sodium 138 mmol/L (136-145); Total Bilirubin 0.2 mg/dL (0.15-1.2); Total Protein 7.4 g/dL (6.6-8.7)
[2019-11-09 22:50] LABS: Lipase 24 U/L (13-60); Magnesium 1.9 mg/dL (1.7-2.3)
[2019-11-09 23:24] LABS: HCG Qualitative Urine. Negative (Negative)
[2019-11-09 23:29] LABS: Glucose Urine UA Norm (Normal); Ketones Urine 1+ (Negative); Protein Urine 1+ (Negative); Urine Appearance SL Hazy (CLEAR); Urine Color Yellow (Yellow); pH Urine 7 (5-7)
[2019-11-09 23:30] LABS: Add Urine Microscopic? YES; Bilirubin Urine Neg (NEGATIVE); Blood Urine 3+ (Negative); Leukocyte Esterase Urine 2+ (Negative); Nitrate Urine Positive (Negative); Urobilinogen Urine Norm (Negative)
[2019-11-09 23:36] LABS: Add Urine Culture? No; Bacteria Urine 4+; RBC Urine TOO NUMEROUS TO CNT /hpf (0-2); Squamous Epithelial Cell Urine 25-40 (0-5); WBC Urine TOO NUMEROUS TO CNT /hpf (0-5)
[2019-11-09 23:42] LABS: Influenza A by IFA Negative (Negative); Influenza B by IFA Negative (Negative)
[2019-11-10] MEDS: iohexol 300 mg/mL 100 mL Btl IV (00:31)
[2019-11-10 01:42] LABS: Lactic Sepsis W/Reflex 1.1 mmol/L (0.5-2.2)
[2019-11-10 05:49] VITALS: BP 102/87; PULSE 84; RESP 16; TEMP 36.4; O2SAT 98
[2019-11-10 05:51] VITALS: BP 102/87; PULSE 84; RESP 16; TEMP 36.4; O2SAT 98
== END 2019-11-10 05:52 | disposition home or self-care (01) ==
PROVIDERS: Emergency Medicine; Emergency Provider Emergency Medicine; Family Provider Psychiatry & Neurology Neurology
DX: N30.00 Acute cystitis without hematuria (principal); Z87.891 Personal history of nicotine dependence
CPT/HCPCS: 36415; 51702; 71045; 74177; 80053; 81003; 81025; 83605; 83690; 83735; 85025; 87040; 87804; 96360; 96365; 96366; 96374; 99282; J0131; J0743; J2405; J7030; J7050; Q9967

== ENCOUNTER 2019-11-21 14:19 | Emergency (ER) | payer MEDICARE, SELFPAY ==
[2019-11-21 15:39] VITALS: BP 114/81; PULSE 82; RESP 17; TEMP 36.7; O2SAT 96; BMI 20.5
--- NOTE | 2019-11-21 16:06 | ED_ITS ---
Entered by Michelle Saravia, acting as scribe for Liliana Anderson MD Nov 21, 2019 14:19 HPI - Abdominal Pain General: Chief Complaint: Abdominal Pain Stated Complaint: abd pain Time Seen by Provider: 11/21/19 16:07 Source: patient and RN notes reviewed Mode of arrival: ambulatory Limitations: no limitations History of Present Illness: HPI narrative: 44 yo female presents to ED with complaints of abdominal pain. The patient states she hurts all over and is nauseous. She said she has been chilling and feeling like she is running a fever (patient is afebrile here). The patient has a Dumont in place. MD elicited complaint: abdominal pain Pertinent past history: past UTI and other (patient is a quadriplegic) Onset (ago): day(s) (2) Pain Consistency: constant Location: Diffuse Severity: moderate Quality: cramping and aching Radiation: none Migration to: no migration Exacerbating factors: nothing Relieving factors: nothing Associated Symptoms: Reports chills and nausea; Denies diarrhea, dysuria and vomiting Review of Systems Const: Reports: chills Eyes: Denies: blurry vision or eye discomfort ENMT: Denies: throat pain or dental pain Card: Denies: chest pain Resp: Denies: shortness of breath GI: Reports: nausea; Denies: vomiting or diarrhea : Denies: painful urination Musc: Denies: neck pain or back pain Skin/Breast: Denies: rash Neuro: Denies: headache Psych: Denies: depression Raul/Lymph: Denies: easy bruising All/Imm: Denies: hives PFSH ED PFSH: Statuses (acute, chronic, etc) shown below reflect problem list status as previously entered and may not be historically accurate Social History Smoking and tobacco status: former smoker Physical Exam Const: COMMON NORMALS: no apparent distress, oriented x3 and healthy appearing HENMT: COMMON NORMALS: normocephalic and head/scalp atraumatic HEAD & SCALP: normocephalic and atraumatic Eye: COMMON NORMALS: PERRL and EOMs intact bilaterally PUPIL: Yes PERRL Neck/C-Spine: COMMON NORMALS: full ROM and supple Chest: COMMONS NORMALS: inspection of chest normal and palpation of chest normal Resp: COMMON NORMALS: normal respiratory effort, no retractions, no use of a ccessory muscles and clear to auscultation bilaterally AUSCULTATION: clear to auscultation bilaterally Cardio: COMMON NORMALS: regular rate, regular rhythm and no murmurs RATE: regular rate RHYTHM: regular rhythm GI: COMMON NORMALS: normal to inspection, nondistended, normoactive bowel sounds, soft to palpation, non-tender and no masses PALPATION: Yes soft Extremity: COMMON NORMALS: normal to inspection Neuro: COMMON NORMALS: oriented x3, moves all extremities and no focal motor deficits Psych: COMMON NORMALS: mental status grossly normal, thought process normal and cooperative THOUGHT PROCESS: normal thought process Skin: COMMON NORMALS: no rashes or lesions noted and no wounds GENERAL SKIN EXAM: no rashes or lesions noted Course Vital Signs: Vital signs: Vital Signs Temperature 98.1 F 11/21/19 15:39 Pulse Rate 79 11/21/19 17:00 Respiratory Rate 16 11/21/19 17:13 Blood Pressure 99/73 11/21/19 17:00 Pulse Oximetry 97 11/21/19 17:00 MDM - Abdominal Pain MDM Narrative: Medical decision making narrative: Patient presents here with abdominal pain that is chronic in nature. Patient's exam here is benign and she had a CT scan little over 1 week ago. She has no signs of acute surgical abdomen. Patient is stable for discharge and is to follow-up with primary care doctor in 3 to 5 days and return if worsening. Lab Data: Labs: Lab Results 11/21/19 11/21/19 11/21/19 Range/Units 16:27 16:27 17:10 WBC 5.5 (4.0-10.0) 10^3/ uL RBC 3.90 L (4.1-5.3) 10^6/u L Hgb 11.1 L (11.5-15.3) g/dL Hct 35.0 L (37.0-47.0) % MCV 89.7 (81-99) fL MCH 28.5 (28.0-34.0) pg MCHC 31.7 (30.0-36.0) g/dL RDW 13.0 (12.1-15.1) % Plt Count 369 (130-400) 10^3/c mm MPV 9.6 (7.4-10.4) fL Neut % (Auto) 72.9 % Lymph % (Auto) 14.2 % [place] % (Auto) 8.0 % Eos % (Auto) 4.0 % Baso % (Auto) 0.5 % Neut # (Auto) 4.0 (1.8-7.7) 10^3/u L Lymph # (Auto) 0.8 (0.8-4.8) 10^3/u L [place] # (Auto) 0.4 (0.2-0.9) 10^3/u L Eos # (Auto) 0.2 (0.0-0.8) 10^3/u L Baso # (Auto) 0.0 (0.0-0.1) 10^3/u L Nucleated RBC % (a uto) 0 % Nucleated RBCs # 0.0 /100WBC Sodium 140 (136-145) mmol/L Potassium 3.1 L (3.5-5.1) mmol/L Chloride 102 (98-107) mmol/L Carbon Dioxide 26 (22-29) mmol/L Anion Gap 15.1 (5-19) BUN 14 (6-20) mg/dL Creatinine 0.9 (0.5-0.9) mg/dL GFR Calculation 68.0 L (90-130) mL/min Glucose 98 (74-109) mg/dL Calcium 9.5 (8.5-10.5) mg/dL Total Bilirubin 0.2 (0.15-1.2) mg/dL AST 15 (0-32) U/L ALT 11 (0-33) U/L Alkaline Phosphata se 86 (35-105) IU/L Total Protein 7.7 (6.6-8.7) g/dL Albumin 4.0 (3.5-5.2) g/dL Globulin 3.7 (1.3-4.6) g/dL Lipase 18 (13-60) U/L HCG, Qual Negative (Negative) Urine Color (Yellow) Urine Appearance (CLEAR) Urine pH (5-7) Ur Specific Gravit y (1.005-1.030) Urine Protein (Negative) Urine Glucose (UA) (Normal) Urine Ketones (Negative) Urine Occult Blood (Negative) Urine Nitrate (Negative) Urine Bilirubin (NEGATIVE) Urine Urobilinogen (Negative) mg/dL Ur Leukocyte Maggi ase (Negative) Urine RBC (0-2) /hpf Urine WBC (0-5) /hpf Ur Squamous Epith Cells (0-5) Urine Bacteria (NONE) 11/21/19 Range/Units 17:10 WBC (4.0-10.0) 10^3/ uL RBC (4.1-5.3) 10^6/u L Hgb (11.5-15.3) g/dL Hct (37.0-47.0) % MCV (81-99) fL MCH (28.0-34.0) pg MCHC (30.0-36.0) g/dL RDW (12.1-15.1) % Plt Count (130-400) 10^3/c mm MPV (7.4-10.4) fL Neut % (Auto) % Lymph % (Auto) % [place] % (Auto) % Eos % (Auto) % Baso % (Auto) % Neut # (Auto) (1.8-7.7) 10^3/u L Lymph # (Auto) (0.8-4.8) 10^3/u L [place] # (Auto) (0.2-0.9) 10^3/u L Eos # (Auto) (0.0-0.8) 10^3/u L Baso # (Auto) (0.0-0.1) 10^3/u L Nucleated RBC % (a uto) % Nucleated RBCs # /100WBC Sodium (136-145) mmol/L Potassium (3.5-5.1) mmol/L Chloride (98-107) mmol/L Carbon Dioxide (22-29) mmol/L Anion Gap (5-19) BUN (6-20) mg/dL Creatinine (0.5-0.9) mg/dL GFR Calculation (90-130) mL/min Glucose (74-109) mg/dL Calcium (8.5-10.5) mg/dL Total Bilirubin (0.15-1.2) mg/dL AST (0-32) U/L ALT (0-33) U/L Alkaline Phosphata se (35-105) IU/L Total Protein (6.6-8.7) g/dL Albumin (3.5-5.2) g/dL Globulin (1.3-4.6) g/dL Lipase (13-60) U/L HCG, Qual (Negative) Urine Color Dark yellow (Yellow) Urine Appearance Cloudy (CLEAR) Urine pH 7 (5-7) Ur Specific Gravit y 1.010 (1.005-1.030) Urine Protein 1+ H (Negative) Urine Glucose (UA) Norm (Normal) Urine Ketones Negative (Negative) Urine Occult Blood 3+ H (Negative) Urine Nitrate Positive H (Negative) Urine Bilirubin Neg (NEGATIVE) Urine Urobilinogen Norm (Negative) mg/dL Ur Leukocyte Maggi ase 2+ H (Negative) Urine RBC 10-15 H (0-2) /hpf Urine WBC >100 H (0-5) /hpf Ur Squamous Epith Cells 0-4 H (0-5) Urine Bacteria 2+ H (NONE) Discharge Plan Discharge Patient Disposition: Home, Self-Care Clinical Impression: Abdominal pain Qualifiers: Abdominal location: generalized Qualified Code(s): R10.84 - Generalized abdominal pain Condition: Stable Prescriptions: New Zofran 4 mg tablet 4 mg PO QID PRN (Reason: nausea and vomiting) Qty: 14 RF: 0 No Action [place] 5-325 mg tablet 1 tab PO Q8H PRN (Reason: pain) Qty: 14 RF: 0 [place] 5-325 mg tablet 1 tab PO Q8H PRN (Reason: pain) Qty: 14 RF: 0 Discharge Orders: Discharge Order (Routine); Ordered 11/21/19 Ordered By: Liliana Anderson Referrals: [id number] [Other] Discharge Diet: Advance as tolerated Discharge Activity: Resume usual activity Patient Instructions: Abdominal Pain (ED) Coding Level of Care Code ED Principal Engineer for Chg Fwd Exam Problem Focused The documentation recorded by the Manjit dodge Valerie R, accurately reflects the service I personally performed and the decisions made by Justin nicole Korby, MD Nov 21, 2019 14:19
[2019-11-21 16:42] LABS: Basophils % 0.5 %; Eosinophils # 0.2 10^3/uL (0.0-0.8); Hemoglobin 11.1 g/dL (11.5-15.3); Lymphocytes # 0.8 10^3/uL (0.8-4.8); Lymphocytes % 14.2 %; Mean Corpuscular HGB Conc 31.7 g/dL (30.0-36.0); Mean Corpuscular Hemoglobin 28.5 pg (28.0-34.0); Mean Corpuscular Volume 89.7 fL (81-99); Mean Platelet Volume 9.6 fL (7.4-10.4); Monocytes # 0.4 10^3/uL (0.2-0.9); Neutrophils % 72.9 %; Nucleated Red Blood Cells % 0 %; Platelet Count 369 10^3/cmm (130-400); White Blood Count 5.5 10^3/uL (4.0-10.0)
[2019-11-21 17:00] VITALS: BP 99/73; PULSE 79; RESP 21; O2SAT 97
[2019-11-21 17:01] LABS: Alanine Aminotransferase 11 U/L (0-33); Alkaline Phosphatase 86 IU/L (35-105); Anion Gap 15.1 (5-19); Aspartate Amino Transferase 15 U/L (0-32); Blood Urea Nitrogen 14 mg/dL (6-20); Calcium 9.5 mg/dL (8.5-10.5); Carbon Dioxide 26 mmol/L (22-29); Chloride 102 mmol/L (98-107); Globulin 3.7 g/dL (1.3-4.6); Glucose 98 mg/dL (74-109); Lipase 18 U/L (13-60); Potassium 3.1 mmol/L (3.5-5.1); Sodium 140 mmol/L (136-145); Total Bilirubin 0.2 mg/dL (0.15-1.2); Total Protein 7.7 g/dL (6.6-8.7)
[2019-11-21 17:13] VITALS: RESP 16
[2019-11-21] MEDS: ondansetron 2 mg/ML SDV 2 mL 4 MG IM (17:13)
[2019-11-21] MEDS: morphine 4 mg/mL SDV 1 mL 8 MG IM (17:13)
[2019-11-21 17:30] LABS: HCG Qualitative Urine. Negative (Negative)
[2019-11-21 17:49] LABS: Blood Urine 3+ (Negative); Glucose Urine UA Norm (Normal); Ketones Urine Negative (Negative); Nitrate Urine Positive (Negative); Protein Urine 1+ (Negative); Urine Appearance Cloudy (CLEAR); Urine Color Dark Yellow (Yellow); pH Urine 7 (5-7)
[2019-11-21 17:51] LABS: Add Urine Microscopic? YES; Bilirubin Urine Neg (NEGATIVE); Leukocyte Esterase Urine 2+ (Negative); Urobilinogen Urine Norm (Negative)
[2019-11-21 17:52] LABS: Add Urine Culture? Yes; Bacteria Urine 2+; Squamous Epithelial Cell Urine 0-4 (0-5); WBC Urine >100 /hpf (0-5)
[2019-11-21 18:25] VITALS: BP 103/66; PULSE 72; RESP 16; O2SAT 98
--- NOTE | 2019-11-21 19:03 | PC.NURSE ---
Introduced self to patient and initiated vital signs. Pt is A&O x 4 and agreeable. Pt states that the reason for the ER visit today is due to generalized body aches and abdominal pain. Pt is waiting for ride home at present. Reassured patient of needs and will continue to monitor.
--- NOTE | 2019-11-21 20:49 | PC.NURSE ---
Patient family stepped out . Will transfer to auto when they return.
--- NOTE | 2019-11-21 21:10 | PC.NURSE ---
Pt transported out to car and placed into passenger seat. Seat belt affixed.
== END 2019-11-21 21:11 | disposition home or self-care (01) ==
PROVIDERS: Emergency Provider Emergency Medicine; Family Provider Psychiatry & Neurology Neurology
DX: R10.84 Generalized abdominal pain (principal); Z87.891 Personal history of nicotine dependence
CPT/HCPCS: 36415; 80053; 81001; 81025; 83690; 85025; 87077; 87086; 87186; 96372; 99282; 99283; J2270; J2405

== ENCOUNTER 2019-12-01 13:09 | Inpatient (IN) | payer MEDICARE, SELFPAY ==
[2019-12-01] VITALS (12 sets, daily range): BP systolic 66–113; BP diastolic 41–74; PULSE 78–136; RESP 16–18; TEMP 36.4–39.5; O2SAT 94–100; BMI 17.6
--- NOTE | 2019-12-01 14:00 | ED_ITS ---
Entered by Hanny De Jesus, acting as scribe for Abbey Gonzales HPI - Abdominal Pain General: Chief Complaint: Abdominal Pain Stated Complaint: abd pains Time Seen by Provider: 12/01/19 14:00 Source: patient Mode of arrival: wheelchair Limitations: no limitations History of Present Illness: HPI narrative: 44 yo Female presents to ED with complaint of abdominal pain. Pt states that it has been going on for a week but has gotten worse over the past 4 days. Pt states that she also has nausea. Pt states that she was vomiting last night. Pt states that she has been constipated and hasn't had a bowel movement in over a week. MD elicited complaint: abdominal pain Pertinent past history: other (quadraplegic) Onset (ago): week(s) Pain Consistency: constant Location: Diffuse Pain scale (0-10): 10 Radiation: none Exacerbating factors: nothing Relieving factors: nothing Associated Symptoms: Reports constipation, nausea and vomiting; Denies chills, dysuria, fever(s), hematuria and syncope Review of Systems General: Reports: other (negative unless marked) Const: Denies: fever, chills, body aches, fatigue, malaise or diaphoresis Eyes: Denies: change in vision or blurry vision ENMT: Denies: throat pain, painful swallowing, hoarseness, ear pain, ear discharge, Change in hearing or nasal discharge Card: Denies: chest pain, palpitations, irregular heart rhythm, syncope, pre- syncope, shortness of breath on exertion or shortness of breath when lying down Resp: Denies: shortness of breath, productive cough, non-productive cough, wheezing, coughing up blood or chest congestion GI: Reports: nausea, vomiting and constipation : Denies: flank pain, painful urination, urinary frequency, urinary urgency, decreased urine ouput, urinary incontinence or blood in urine Musc: Denies: neck pain, back pain, extremity pain, extremity swelling, joint pain, joint swelling, joint warmth or joint stiffness Skin/Breast: Denies: rash, skin tenderness or yellow skin Neuro: Denies: headache, numbness in extremities, weakness in extremities, changes in sensation, lack of coordination, difficulty walking, dizziness, vertigo or confusion Endo: Denies: excessive thirst, tired all the time, cold intolerance, excessive sweating, flushing or hot flashes Raul/Lymph: Denies: easy bruising, easy bleeding, petechiae or enlarged lymph nodes All/Imm: Denies: hives, throat swelling, tongue swelling, facial swelling or acute wheezing PFSH ED PFSH: Statuses (acute, chronic, etc) shown below reflect problem list status as previously entered and may not be historically accurate Social History Smoking and tobacco status: former smoker Physical Exam Const: COMMON NORMALS: no apparent distress, oriented x3, no limitations, healthy appearing and well nourished EXAM LIMITATIONS: no altered mental status GENERAL APPEARANCE: cooperative, well kempt and well developed ORIENTATION/CONSCIOUSNESS: Yes awake HENMT: COMMON NORMALS: normocephalic, head/scalp atraumatic, hearing grossly normal bilaterally, external ears normal, EAC's normal, external nose normal and moist oral mucous membranes HEAD & SCALP: normal to inspection, normocephalic and atraumatic FACE & SINUS: normal facial exam and face symmetric NOSE: external nose normal and nares normal EXTERNAL EAR: Yes external ears normal EXTERNAL AUDITORY CANAL: EAC's normal MOUTH: oral and palatal mucosa normal and tongue normal Eye: COMMON NORMALS: PERRL, EOMs intact bilaterally, conjunctivae normal and no scleral icterus GENERAL EYE: normal appearance of both eyes and normal light reflex CONJUNCTIVA: Yes conjunctivae normal SCLERA: sclerae normal CORNEA: Yes corneas normal PUPIL: Yes PERRL DIRECT OPHTHALMOSCOPY: Yes normal light reflex Neck/C-Spine: COMMON NORMALS: full ROM, no lymphadenopathy, supple, no meningeal signs and no JVD GENERAL: Yes normal visual inspection and Yes trachea midline CERVICAL SPINE: Yes cervical ROM normal Chest: COMMONS NORMALS: inspection of chest normal and palpation of chest normal Resp: COMMON NORMALS: normal respiratory effort, no retractions, no use of accessory muscles and clear to auscultation bilaterally EFFORT & INSPECTION: Yes able to speak in complete sentences AUSCULTATION: clear to auscultation bilaterally Cardio: COMMON NORMALS: no JVD, regular rate, regular rhythm, S1 normal heart sound, S2 normal heart sound, no gallops, no clicks, no murmurs and no rub JUGULAR VENOUS DISTENTION: no JVD RATE: regular rate RHYTHM: regular rhythm HEART SOUNDS: S1 normal and S2 normal GI: COMMON NORMALS: soft to palpation, non-tender, no hepatosplenomegaly and no masses INSPECTION: Yes normal to inspection PALPATION: Yes soft and Yes no hepatosplenomegaly : COMMON NORMALS: Yes no CVA tenderness BLADDER/KIDNEY EXAM: Yes no CVA tenderness Back/Pelvis: COMMON NORMALS: no CVA tenderness, thoracic and lumbar spine normal to inspection, no thoracic nor lumbar tenderness and thoraco-lumbar ROM normal Extremity: COMMON NORMALS: normal to inspection, normal capillary refill, no joint enlargement, no clubbing, cyanosis or edema and no calf tenderness; negative for full ROM (quadraplegic) Neuro: COMMON NORMALS: oriented x3, CN's II-XII intact bilaterally, moves all extremities, no focal motor deficits and no sensory deficits noted MENINGEAL SIGNS: Yes no meningeal signs Psych: COMMON NORMALS: mental status grossly normal, thought process normal, cooperative, affect normal, speech normal and activity/motor behavior normal APPEARANCE: Yes well kempt SPEECH: Yes normal speech THOUGHT PROCESS: normal thought process Skin: COMMON NORMALS: no rashes or lesions noted, skin turgor normal, no jaundice, no petechiae and no mottling GENERAL SKIN EXAM: no rashes or lesions noted and turgor normal Course Vital Signs: Vital signs: Vital Signs Temperature 97.5 F L 12/01/19 13:58 Pulse Rate 82 12/01/19 16:40 Respiratory Rate 16 12/01/19 13:58 Blood Pressure 93/58 12/01/19 16:40 Pulse Oximetry 99 12/01/19 16:40 MDM - Abdominal Pain MDM Narrative: Medical decision making narrative: Rosanne is a 44-year-old female, incomplete quadriplegic that comes in with abdominal pain and the concern of constipation. CT scan shows moderate constipation but no bowel obstruction. She does have findings consistent with pyelonephritis. Her cath eter did show infection and we have changed that out. There is question about adnexal changes, please see the CT report but specifically could there be a left ovarian torsion. Dr. Miles helped perform the ultrasound but her left ovary could not be seen definitively. The patient's blood pressure has been running low but her lactate is okay and she has responded well to IV fluids. I presented the case to Dr. Rosenthal who is in agreement to see and evaluate the patient. He would like to the crusher assembler on-call to be consulted and I have reviewed the case with Dr. Martinez and he agrees to see and evaluate the patient. Lab Data: Labs: Lab Results 12/01/19 12/01/19 12/01/19 Range/Units 14:45 14:48 14:48 WBC 7.4 (4.0-10.0) 10^3/ uL RBC 3.78 L (4.1-5.3) 10^6/u L Hgb 11.0 L (11.5-15.3) g/dL Hct 35.8 L (37.0-47.0) % MCV 94.7 (81-99) fL MCH 29.1 (28.0-34.0) pg MCHC 30.7 (30.0-36.0) g/dL RDW 13.9 (12.1-15.1) % Plt Count 250 (130-400) 10^3/c mm MPV 10.3 (7.4-10.4) fL Neut % (Auto) 82.1 % Lymph % (Auto) 8.7 % [place] % (Auto) 8.0 % Eos % (Auto) 0.5 % Baso % (Auto) 0.3 % Neut # (Auto) 6.1 (1.8-7.7) 10^3/u L Lymph # (Auto) 0.6 L (0.8-4.8) 10^3/u L [place] # (Auto) 0.6 (0.2-0.9) 10^3/u L Eos # (Auto) 0.0 (0.0-0.8) 10^3/u L Baso # (Auto) 0.0 (0.0-0.1) 10^3/u L Nucleated RBC % (a uto) 0 % Nucleated RBCs # 0.0 /100WBC Sodium 136 (136-145) mmol/L Potassium 4.3 (3.5-5.1) mmol/L Chloride 102 (98-107) mmol/L Carbon Dioxide 21 L (22-29) mmol/L Anion Gap 17.3 (5-19) BUN 23 H (6-20) mg/dL Creatinine 1.5 H (0.5-0.9) mg/dL GFR Calculation 37.7 L (90-130) mL/min Glucose 93 (65-115) mg/dL Lactic Acid (0.5-2.2) mmol/L Calcium 9.0 (8.5-10.5) mg/dL Total Bilirubin 0.2 (0.15-1.2) mg/dL AST 26 (0-32) U/L ALT 26 (0-33) U/L Alkaline Phosphata se 227 H (35-105) IU/L Total Protein 8.2 (6.6-8.7) g/dL Albumin 3.2 L (3.5-5.2) g/dL Globulin 5.0 H (1.3-4.6) g/dL Ser , Genie i-Qnt 0.50 mIU/mL Urine Color Yellow (Yellow) Urine Appearance Cloudy (CLEAR) Urine pH 8 H (5-7) Ur Specific Gravit y 1.010 (1.005-1.030) Urine Protein 1+ H (Negative) Urine Glucose (UA) Norm (Normal) Urine Ketones Negative (Negative) Urine Occult Blood 2+ H (Negative) Urine Nitrate Negative (Negative) Urine Bilirubin Neg (NEGATIVE) Prot Sulfosalicyli c Acd Positive Urine Urobilinogen Norm (Negative) mg/dL Ur Leukocyte Maggi ase 2+ H (Negative) Urine RBC 0-4 H (0-2) /hpf Urine WBC Too numerous to c nt H (0-5) /hpf Ur Squamous Epith Cells 0-4 H (0-5) Amorphous Sediment 2+ Urine Bacteria 3+ H (NONE) 12/01/19 Range/Units 14:48 WBC (4.0-10.0) 10^3/ uL RBC (4.1-5.3) 10^6/u L Hgb (11.5-15.3) g/dL Hct (37.0-47.0) % MCV (81-99) fL MCH (28.0-34.0) pg MCHC (30.0-36.0) g/dL RDW (12.1-15.1) % Plt Count (130-400) 10^3/c mm MPV (7.4-10.4) fL Neut % (Auto) % Lymph % (Auto) % [place] % (Auto) % Eos % (Auto) % Baso % (Auto) % Neut # (Auto) (1.8-7.7) 10^3/u L Lymph # (Auto) (0.8-4.8) 10^3/u L [place] # (Auto) (0.2-0.9) 10^3/u L Eos # (Auto) (0.0-0.8) 10^3/u L Baso # (Auto) (0.0-0.1) 10^3/u L Nucleated RBC % (a uto) % Nucleated RBCs # /100WBC Sodium (136-145) mmol/L Potassium (3.5-5.1) mmol/L Chloride (98-107) mmol/L Carbon Dioxide (22-29) mmol/L Anion Gap (5-19) BUN (6-20) mg/dL Creatinine (0.5-0.9) mg/dL GFR Calculation (90-130) mL/min Glucose (65-115) mg/dL Lactic Acid 1.6 (0.5-2.2) mmol/L Calcium (8.5-10.5) mg/dL Total Bilirubin (0.15-1.2) mg/dL AST (0-32) U/L ALT (0-33) U/L Alkaline Phosphata se (35-105) IU/L Total Protein (6.6-8.7) g/dL Albumin (3.5-5.2) g/dL Globulin (1.3-4.6) g/dL Ser , Genie i-Qnt mIU/mL Urine Color (Yellow) Urine Appearance (CLEAR) Urine pH (5-7) Ur Specific Gravit y (1.005-1.030) Urine Protein (Negative) Urine Glucose (UA) (Normal) Urine Ketones (Negative) Urine Occult Blood (Negative) Urine Nitrate (Negative) Urine Bilirubin (NEGATIVE) Prot Sulfosalicyli c Acd Urine Urobilinogen (Negative) mg/dL Ur Leukocyte Maggi ase (Negative) Urine RBC (0-2) /hpf Urine WBC (0-5) /hpf Ur Squamous Epith Cells (0-5) Amorphous Sediment Urine Bacteria (NONE) Imaging Data ^: CT Abd/Pel: Radiologist's impression: [address] [id number] [address] Scan Report Signed Patient: Danielle Morales #: [id number] : 1975Acct#:[id number] Age/Sex: 44 / FADM Date: 12/01/19 Loc: ERRoom/Bed: Attending Dr: Ordering Provider/Ordering MD: Abbey Gonzales DO Date of Service: 12/01/19 Procedure(s): CT abdomen pelvis w con* [id number] Accession Number(s): [id number] Report Number: [id number] WS: [id number] CT ABDOMEN AND PELVIS WITH CONTRAST HISTORY: Abdominal pain, history of uterine cancer. TECHNIQUE: Imaging performed of the abdomen and pelvis with IV contrast. Single phase imaging of the abdomen. Coronal and sagittal reformats are submitted. All CT scans at [facility] use at least one of these dose optimization techniques: automated exposure control; mA and/or kV adjustment per patient size (includes targeted exams where dose is matched to clinical indication); or iterative reconstruction. IV CONTRAST: Omnipaque 300; 75 mL IV. Oral contrast: No DLP: 708.65 mGy.cm COMPARISON: 11/10/2019 Lower thorax: Lung bases are clear. Heart is normal size. No hiatal hernia. Liver/biliary system: Normal size with no intrahepatic dilatation. Gallbladder: Normal. No gallstones or wall thickening. No pericholecystic fluid. Pancreas: Normal. Spleen: Normal. Adrenal glands: LEFT adrenal gland contains a nodule measuring 19 x 18 mm which has been present on prior studies. No increase in size. Normal RIGHT adrenal gland. Right kidney: Normal size RIGHT kidney. Areas of decreased attenuation throughout the kidney. Poor cortical medullary differentiation. RIGHT renal pelvis and the proximal ureter are mildly prominent with enhancement of the uroepithelium. Left kidney: Decreased attenuation throughout the parenchyma with no obstruction. Extrarenal pelvis and mild enhancement of the uroepithelium in the renal pelvis and proximal ureter. There is high density contrast or calcification layering in the LEFT renal pelvis and inferior pole of the LEFT kidney. Aorta: Mild atherosclerosis. Lymphadenopathy: Small retroperitoneal lymph nodes. No change in size. Free fluid: Small amount of free fluid in the LEFT pelvis. GI tract: Normal appendix. Moderate fecal retention throughout the colon. Abdominal wall: Unremarkable abdominal wall. No hernia. Pelvis: Bilateral fluid collections in the pelvis. RIGHT fluid collection measures 3.8 x 3.1 cm. LEFT fluid collection conforms to the space measuring 6.1 x 4.7 cm. Within the central fluid collection is a rounded structure with a thin wall measuring 3.7 cm. This finding is new since prior studies. Prior hysterectomy. Following catheter in the urinary bladder. Urinary bladder wall is mildly thickened. Bones: Unremarkable. CT/CT abdomen pelvis w con* [id number] IMPRESSION: 1. Moderate constipation. 2. Bilateral adnexal fluid collections have been previously seen. There is a new rounded thin-walled structure within the LEFT adnexal fluid collection. These collections may be related to the ovaries or fallopian tubes. If the patient is having LEFT lower quadrant severe pain, LEFT ovarian torsion should be considered. 3. Mild uroepithelial enhancement in the renal pelves. Correlate for possible urinary tract infection. 4. Patchy enhancement throughout both kidneys. Correlate for possible pyelonephritis. 5. Dumont catheter in urinary bladder. Dictated By:Tameka Miles DO Signed By:Tameka Miles DOSigned Date/Time:12/01/19 1552 DD/ 1527 Discharge Plan Discharge Patient Disposition: Placed in Observation Clinical Impression: Sepsis, Pyelonephritis Condition: Stable Prescriptions: No Action [place] 5-325 mg tablet 1 tab PO Q8H PRN (Reason: pain) Qty: 14 RF: 0 [place] 5-325 mg tablet 1 tab PO Q8H PRN (Reason: pain) Qty: 14 RF: 0 Zofran 4 mg tablet 4 mg PO QID PRN (Reason: nausea and vomiting) Qty: 14 RF: 0 Referrals: [id number] [Other] Coding Level of Care Code ED Advice Nurse for Chg Fwd Exam Problem Focused The documentation recorded by the Neal dodge Carmen, accurately reflects the service I personally performed and the decisions made by Christian nicole Eli N Dec 01, 2019 13:09
--- NOTE | 2019-12-01 14:04 | CT_ITS ---
WS: [id number] CT ABDOMEN AND PELVIS WITH CONTRAST HISTORY: Abdominal pain, history of uterine cancer. TECHNIQUE: Imaging performed of the abdomen and pelvis with IV contrast. Single phase imaging of the abdomen. Coronal and sagittal reformats are submitted. All CT scans at [facility] use at least one of these dose optimization techniques: automated exposure control; mA and/or kV adjustment per patient size (includes targeted exams where dose is matched to clinical indication); or iterativ e reconstruction. IV CONTRAST: Omnipaque 300; 75 mL IV. Oral contrast: No DLP: 708.65 mGy.cm COMPARISON: 11/10/2019 Lower thorax: Lung bases are clear. Heart is normal size. No hiatal hernia. Liver/biliary system: Normal size with no intrahepatic dilatation. Gallbladder: Normal. No gallstones or wall thickening. No pericholecystic fluid. Pancreas: Normal. Spleen: Normal. Adrenal glands: LEFT adrenal gland contains a nodule measuring 19 x 18 mm which has been present on p rior studies. No increase in size. Normal RIGHT adrenal gland. Right kidney: Normal size RIGHT kidney. Areas of decreased attenuation throughout the kidney. Poor co rtical medullary differentiation. RIGHT renal pelvis and the proximal ureter are mildly prominent wit h enhancement of the uroepithelium. Left kidney: Decreased attenuation throughout the parenchyma with no obstruction. Extrarenal pelvis a nd mild enhancement of the uroepithelium in the renal pelvis and proximal ureter. There is high densi ty contrast or calcification layering in the LEFT renal pelvis and inferior pole of the LEFT kidney. Aorta: Mild atherosclerosis. Lymphadenopathy: Small retroperitoneal lymph nodes. No change in size. Free fluid: Small amount of free fluid in the LEFT pelvis. GI tract: Normal appendix. Moderate fecal retention throughout the colon. Abdominal wall: Unremarkable abdominal wall. No hernia. Pelvis: Bilateral fluid collections in the pelvis. RIGHT fluid collection measures 3.8 x 3.1 cm. LEFT fluid collection conforms to the space measuring 6.1 x 4.7 cm. Within the central fluid collection i s a rounded structure with a thin wall measuring 3.7 cm. This finding is new since prior studies. Marium or hysterectomy. Following catheter in the urinary bladder. Urinary bladder wall is mildly thickened. Bones: Unremarkable. CT/CT abdomen pelvis w con* [id number] IMPRESSION: 1. Moderate constipation. 2. Bilateral adnexal fluid collections have been previously seen. There is a n ew rounded thin-walled structure within the LEFT adnexal fluid collection. Thes e collections may be related to the ovaries or fallopian tubes. If the patient is having LEFT lower quadrant severe pain, LEFT ovarian torsion should be consi dered. 3. Mild uroepithelial enhancement in the renal pelves. Correlate for possible urinary tract infection. 4. Patchy enhancement throughout both kidneys. Correlate for possible pyelonep hritis. 5. Dumont catheter in urinary bladder.
[2019-12-01 14:57] LABS: Basophils % 0.3 %; Eosinophils % 0.5 %; Hematocrit 35.8 % (37.0-47.0); Lymphocytes # 0.6 10^3/uL (0.8-4.8); Lymphocytes % 8.7 %; Mean Corpuscular HGB Conc 30.7 g/dL (30.0-36.0); Mean Corpuscular Hemoglobin 29.1 pg (28.0-34.0); Mean Corpuscular Volume 94.7 fL (81-99); Mean Platelet Volume 10.3 fL (7.4-10.4); Monocytes # 0.6 10^3/uL (0.2-0.9); Neutrophils # 6.1 10^3/uL (1.8-7.7); Neutrophils % 82.1 %; Nucleated Red Blood Cells % 0 %; Platelet Count 250 10^3/cmm (130-400); Red Blood Count 3.78 10^6/uL (4.1-5.3); Red Cell Distribution Width 13.9 % (12.1-15.1); White Blood Count 7.4 10^3/uL (4.0-10.0)
[2019-12-01 15:11] LABS: Lactic Sepsis W/Reflex 1.6 mmol/L (0.5-2.2)
[2019-12-01 15:14] LABS: Blood Urine 2+ (Negative); Glucose Urine UA Norm (Normal); Ketones Urine Negative (Negative); Protein Urine 1+ (Negative); Urine Appearance Cloudy (CLEAR); Urine Color Yellow (Yellow); pH Urine 8 (5-7)
[2019-12-01] MEDS: ondansetron 2 mg/ML SDV 2 mL 4 MG IVP (15:14)
[2019-12-01] MEDS: morphine 4 mg/mL SDV 1 mL IVP (15:14)
[2019-12-01 15:15] LABS: Bilirubin Urine Neg (NEGATIVE); Leukocyte Esterase Urine 2+ (Negative); Nitrate Urine Negative (Negative); Sulfosalicylic Acid Urine Positive; Urobilinogen Urine Norm (Negative)
[2019-12-01 15:22] LABS: Alanine Aminotransferase 26 U/L (0-33); Albumin Level 3.2 g/dL (3.5-5.2); Alkaline Phosphatase 227 IU/L (35-105); Anion Gap 17.3 (5-19); Aspartate Amino Transferase 26 U/L (0-32); Blood Urea Nitrogen 23 mg/dL (6-20); Carbon Dioxide 21 mmol/L (22-29); Chloride 102 mmol/L (98-107); Glomerular Filtration Rate 37.7 mL/min (90-130); Glucose 93 mg/dL (65-115); Potassium 4.3 mmol/L (3.5-5.1); Sodium 136 mmol/L (136-145); Total Bilirubin 0.2 mg/dL (0.15-1.2); Total Protein 8.2 g/dL (6.6-8.7)
[2019-12-01 15:26] LABS: RBC Urine 0-4 /hpf (0-2); Squamous Epithelial Cell Urine 0-4 (0-5)
[2019-12-01] MEDS: iohexol 300 mg/mL 100 mL Btl IV (15:26)
[2019-12-01 15:28] LABS: Bacteria Urine 3+; WBC Urine TOO NUMEROUS TO CNT /hpf (0-5)
[2019-12-01 15:29] LABS: Amorphous Sediment Urine 2+
[2019-12-01 15:30] LABS: Add Urine Culture? Yes
--- NOTE | 2019-12-01 16:13 | US_ITS ---
WS: [id number] TRANSABDOMINAL PELVIC ULTRASOUND HISTORY: Pain COMPARISON: CT pelvis 12/01/2019. Uterus: Prior hysterectomy. Endometrium: Prior hysterectomy. Right ovary: 2.5 x 1.3 x 2.6 cm. There is an adjacent complex fluid collection which was also seen by CT which may be a paraovarian cystic collection. This has been present on prior studies. Left ovary: LEFT ovary is not identified. The previously described collection deep within the pelvis and above the bladder is not definitely seen by ultrasound and surrounded by bowel. No free fluid. US/US pelvic complete* [id number] IMPRESSION: 1. Prior hysterectomy. 2. Complex fluid collection seen on CT is not identified by ultrasound. Patien t's pain is more to the RIGHT of midline. This may be a paraovarian fluid colle ction from prior surgeries. If pain continues repeat abdomen CT with IV and ora l contrast may be helpful.
[2019-12-01] MEDS: cefTRIAXone 1,000 MG in sodium chloride 0.9% (plus) 50 ML 100 MG IV (16:50)
--- NOTE | 2019-12-01 16:51 | PC.NURSE ---
portable ultrasound at bedside
--- NOTE | 2019-12-01 17:57 | P.HP_ITS ---
Providers/Chief Complaint Chief Complaint: abd pains History of Present Illness Rosanne Morales is a 44 year old female with past medical history of traumatic quadriplegia, neurogenic bladder, recurrent UTIs, chronic Dumont, ureteric stents, UTIs with E. coli and history of bacteremia due to E. coli, history of renal failure, urolithiasis who was brought in by her family members from home b ecause of complaint of feeling weak with not having had a bowel movement the last 7 days along with nausea and 2 episodes of vomiting. In the ER patient was found to be mildly hypotensive with grossly bad looking urine in the urinal bag so urinalysis was done and was consistent with UTI. In the ER patient received multiple fluid boluses to get her blood pressure over [address] abdomen done showed constipation along with possible right-sided pyelonephritis and multiple adnexal collections similar in the past but a new left-sided adnexal collection with a possible ovarian torsion. For this hospitalist service was consulted. On my evaluation patient states he has been having constipation for last 7 days and has had multiple bowel regimens without any help with nausea for 3 days and vomiting 2 episodes since last night. Vomitus usually consist of food particles but is never bloodstained or foul-smelling. Patient is also complaining of some chills with subjective feel a fever for last 2 days but has not checked her fever at home. Patient states she has had a chronic Dumont because of recurrent UTIs and her being quadriplegic. At baseline patient lives with her and has in-home services. Patient denies of having any palpitations, chest pain, shortness of breath, dizziness, headache. Review of Systems Const: Reports: fever and chills; Denies: body aches, change in appetite, malaise, night sweats, diaphoresis, change in sleep pattern, daytime sleepiness or snoring Eyes: Denies: change in vision, blurry vision, photophobia, eye discomfort or eye discharge ENMT: Denies: throat pain, enlarged tonsils, hoarseness, mouth pain, oral sores/lesions, dry mouth, tinnitus, nasal congestion or post nasal drip Card: Denies: chest pain, palpitations, irregular heart rhythm, edema, swelling of feet/ankles, lightheadedness, syncope, pre-syncope, shortness of breath on exertion, shortness of breath when lying down, leg pain with exertion or bluish discoloration of hands/feet Resp: Denies: shortness of breath, productive cough, non-productive cough, wheezing, stridor, pain on inspiration, change in phlegm color, coughing up blood or chest congestion GI: Reports: abdominal pain, constipation and change in bowel habits; Denies: nausea, vomiting, vomiting blood, coffee grounds in vomit, difficulty swallowing, heartburn/indigestion, diarrhea, bloating, cramping, painful bowel movements, blood in stool or black tarry stool : Reports: painful urination; Denies: flank pain, urinary frequency, urinary urgency, urinary hesitancy, nighttime urination or blood in urine Musc: Denies: neck pain, back pain, extremity pain, joint pain, joint swelling, redness, joint stiffness or limited range of motion Neuro: Reports: weakness in extremities and lack of coordination; Denies: headache, numbness in extremities, changes in sensation, difficulty walking, frequent falls, dizziness, vertigo, confusion, slurred speech, dif ficulty communicating thoughts or seizure-like activity Psych: Denies: anxiety, depression, mood swings, panic attacks, hopelessness or irritability Endo: Denies: excessive urination, excessive thirst, tired all the time, cold intolerance, excessive sweating, flushing or heat intolerance Raul/Lymph: Denies: easy bruising or easy bleeding All/Imm: Denies: tongue swelling, facial swelling or acute wheezing Medications/Allergies Allergies Allergy/AdvReac Type Severity Reaction Status Date / Time No Known Allergies Allergy Verified 12/01/19 14:03 PFSH Acute PFSH: Statuses (acute, chronic, etc) shown below reflect problem list status as previously entered and may not be historically accurate Medical History (Updated 12/01/19 @ 18:05 by Damir Ernst MD) Chronic indwelling Dumont catheter (Acute) Neurogenic bladder (Acute) Post-traumatic quadriplegia (Acute) Recurrent sepsis due to urinary tract infection (Acute) Surgical History (Updated 12/01/19 @ 18:03 by Damir Enrst MD) H/O cystoscopy (Acute) H/O Spinal surgery (Acute) History of hysterectomy (Acute) Family History (Updated 12/01/19 @ 18:04 by Damir Ernst MD) Other Hypertension Social History (Updated 12/01/19 @ 18:04 by Damir Ernst MD) Smoking and tobacco status: former smoker Alcohol intake: never Substance/Drug Use: never Household members: spouse Housing: House Vitals/I&O/Wt Last Vital Signs Temp 97.5 F L 12/01/19 13:58 Pulse 82 12/01/19 16:40 Resp 16 12/01/19 13:58 BP 93/58 12/01/19 16:40 Pulse Ox 99 12/01/19 16:40 Weight last 48 hrs Weight 46.72 kg Physical Exam Narrative: EXAM NARRATIVE: General: No acute distress, AO x3, quadriplegia HEENT: PERRLA, pupils bilaterally equal and reactive Chest: Normal vesicular breath sounds, no added sounds, equal good air entry bilaterally CVS: S1-S2 regular, no murmurs, no tachycardia, no gallops, no rubs Abdomen: Soft, generalized tender all over the abdomen more so in the right lower quadrant, no organomegaly, bowel sounds present Neuro: Quadriplegia, AO x3, no facial deformity Urinary Catheter Management^: Dumont: Cath Placed During This Visit: yes Urethral Indwelling: Yes Reason for Continuing Indwelling Catheter: Chronic Indwelling Urinary Catheter on Admission Urinary Catheter Date of Insertion: 12/01/19 Urinary Catheter Time of Insertion: 16:42 Data : 12/01/19 14:48 12/01/19 14:48 A&P Assessment and plan (1) Sepsis: Status: Acute Qualifiers: Sepsis acute organ dysfunction status: unspecified Sepsis type: sepsis due to unspecified organism Qualified Code(s): A41.9 - Sepsis, unspecified organism Code(s): A41.9 - Sepsis, unspecified organism (2) Pyelonephritis: Status: Acute Code(s): N12 - Tubulo-interstitial nephritis, not specified as acute or chronic (3) Neurogenic bladder: Status: Acute Code(s): N31.9 - Neuromuscular dysfunction of bladder, unspecified (4) Left pelvic adnexal fluid collection: Status: Acute Code(s): R68.89 - Other general symptoms and signs (5) Post-traumatic quadriplegia: Status: Acute Code(s): G82.50 - Quadriplegia, unspecified (6) Chronic indwelling Dumont catheter: Status: Acute Code(s): Z96.0 - Presence of urogenital implants Additional A&P Information Sepsis: Most likely due to pyelonephritis versus complicated UTI: Chronic indwelling Dumont catheter. Patient is tachycardic, hypotensive, requiring multiple fluid boluses, with a source of UTI. Continue IV fluid hydration with normal saline 800 cc/h. Patient received ceftriaxone in the ER. We will continue ceftriaxone 1 g daily. Urine culture and blood culture history suggestive of infection previously because of E. coli, Morganella, Proteus, Klebsiella, enterococcus only last 1 year are susceptible to ceftriaxone in the past. If patient deteriorates can add vancomycin for resistant enterococcus. Urine culture already sent in the ER. We will also send blood cultures stat. We will de-escalate antibiotics or change antibiotics as per the culture results. Dumont catheter already changed in the ER. Procalcitonin, MRSA swab. Monitor intake and output, vitals. Left pelvic adnexal fluid collection: As per the CT results torsion cannot be ruled out. Patient would most likely need pelvic versus transvaginal ultrasound. As per the ER physician transabdominal ultrasound could not reveal as radiologist was not able to locate the adnexa on ultrasound. We will consult gynecology for further guidance. Continue to monitor vitals. Posttraumatic quadriplegia: Frequent positioning in the bed to avoid pressure ulcers. Continue home dose of [place]. Full code. Heparin 5000 subcu every 12 for DVT prophylaxis. Regular diet. Attestations Medical Necessity Statement*: Needs hospitalization for more than 2 midnights for sepsis due to pyelonephritis. Time Spent in Patient Care: Greater than 35 minutes Coding Level of Care Code Acute Social Services Assistant for [facility] Diagnoses Sepsis A41.9 Sepsis acute organ dysfunction status: unspecified Sepsis type: sepsis due to unspecified organism Pyelonephritis N12 Neurogenic bladder N31.9 Left pelvic adnexal fluid collection R68.89 Post-traumatic quadriplegia G82.50 Chronic indwelling Dumont catheter Z96.0
[2019-12-01 18:47] LABS: Procalcitonin 0.05 ng/mL (0-0.5)
[2019-12-01 18:58] LABS: Iron 25 ug/dL (37-145); Percent Saturation 6.8 % (20-50); Total Iron Binding Capacity 367 mcg/dl; Unsaturated Iron Binding 342 ug/dL (112-347)
[2019-12-01] MEDS: HYDROmorphone 1 mg/mL INJ 1 mL 0.5 MG IVP (18:59)
--- NOTE | 2019-12-01 19:13 | PC.NURSE ---
REPORT RECEIVED FROM KRIS KEN AND CARE TRANSFERRED TO KRIS CARIAS
[2019-12-01] MEDS: sodium chloride 0.9% 1,000 ML 999 ML IV (20:31)
[2019-12-01] MEDS: acetaminophen 500 mg Tablet 1000 MG PO (20:36)
--- NOTE | 2019-12-01 21:13 | PC.NURSE ---
xray in room
[2019-12-02] VITALS (53 sets, daily range): BP systolic 59–132; BP diastolic 40–82; PULSE 71–101; RESP 16–29; TEMP 36.8–37.3; O2SAT 93–100; BMI 20.5; BMI 20.7
[2019-12-02 01:28] LABS: Thyroid Stimulating Hormone 2.13 uIU/mL (0.27-4.20)
--- NOTE | 2019-12-02 02:21 | PC.NURSE ---
[address] kearney. order [facility] for [facility] monitor now. order to turn off levophed and do 500 cc lr bolus fluid challenge. pt tolerated s difficulty. svi chnange 6.1 bp dropped to 59/40 . resumed levophed at 6mg/hr at this time. discussed c dr. kearney. repeat bp 128/82 will wean as tolerated. anamaria cowan rn.
[2019-12-02 02:24] LABS: Influenza A by IFA Negative (Negative); Influenza B by IFA Negative (Negative)
[2019-12-02] MEDS: lactated ringers 500 ML 999 ML IV (03:00)
[2019-12-02] MEDS: piperacillin-tazobactam 3.375 GM in sodium chloride 0.9% (plus) 50 ML IV ×3 (03:04→17:57)
[2019-12-02] MEDS: docusate sodium 100 mg Capsule PO ×3 (03:04→17:57)
[2019-12-02] MEDS: sennosides 8.6 mg Tablet 17.2 MG PO ×2 (03:04→20:55)
[2019-12-02] MEDS: heparin 5,000 unit/mL INJ 1 mL 5000 UNIT SUBCUT ×2 (03:05→13:08)
[2019-12-02] MEDS: sodium chloride 0.9% 1,000 ML 100 ML IV ×3 (03:05→23:07)
[2019-12-02] MEDS: ipratropium-albuterol 3 mL Neb INHALATION ×4 (03:06→20:43)
--- NOTE | 2019-12-02 03:47 | PC.PHAR ---
Vancomycin is dosed at 1000mg IVPB every 24 hours to produce a predicted trough level of 18.11 (population based pharmacokinetic analysis). A trough level has been ordered from the lab to be obtained before the third dose to confirm and adjust if needed.
[2019-12-02] MEDS: vancomycin 1,000 MG in sodium chloride 0.9% 250 ML 250 MG IV (05:10)
[2019-12-02] MEDS: HYDROcodone-acetaminophen 5-325 mg Tablet 1 TAB PO ×2 (05:11→20:54)
[2019-12-02 06:15] LABS: Basophils % 0.2 %; Eosinophils % 0.3 %; Hematocrit 29.2 % (37.0-47.0); Hemoglobin 8.8 g/dL (11.5-15.3); Lymphocytes # 1.3 10^3/uL (0.8-4.8); Lymphocytes % 10.9 %; Mean Corpuscular HGB Conc 30.1 g/dL (30.0-36.0); Mean Corpuscular Hemoglobin 27.8 pg (28.0-34.0); Mean Corpuscular Volume 92.1 fL (81-99); Monocytes % 8.8 %; Neutrophils # 9.1 10^3/uL (1.8-7.7); Neutrophils % 79.2 %; Nucleated Red Blood Cells % 0 %; Platelet Count 333 10^3/cmm (130-400); Red Blood Count 3.17 10^6/uL (4.1-5.3); Red Cell Distribution Width 14.1 % (12.1-15.1); White Blood Count 11.5 10^3/uL (4.0-10.0)
--- NOTE | 2019-12-02 06:38 | PC.NURSE ---
discussed pt c dr. kearney. pt previously requested enema to be given at 0[address].
[2019-12-02 06:58] LABS: Alanine Aminotransferase 18 U/L (0-33); Albumin Level 2.4 g/dL (3.5-5.2); Alkaline Phosphatase 187 IU/L (35-105); Anion Gap 18.9 (5-19); Aspartate Amino Transferase 22 U/L (0-32); Blood Urea Nitrogen 14 mg/dL (6-20); Calcium 7.9 mg/dL (8.5-10.5); Carbon Dioxide 17 mmol/L (22-29); Chloride 104 mmol/L (98-107); Globulin 3.9 g/dL (1.3-4.6); Glomerular Filtration Rate 44.5 mL/min (90-130); Glucose 135 mg/dL (65-115); Potassium 3.9 mmol/L (3.5-5.1); Sodium 136 mmol/L (136-145); Total Bilirubin 0.3 mg/dL (0.15-1.2); Total Protein 6.3 g/dL (6.6-8.7)
[2019-12-02] MEDS: Fleet Enema 133 mL Enema PR (10:39)
[2019-12-02] MEDS: lactulose oral liq 20 gm/30 mL UDC 10 GM PO (10:39)
--- NOTE | 2019-12-02 16:15 | PC.CHAP ---
Pastoral Care Encounter/Spiritual Assessment Type of Contact [] Declined catalog librarian visit [] Patient/Family/Request visit [] Outpatient visit [] Follow-up visit [] Physician referral [] Code/Alert [x] Routine visit [] Staff referral [] Actively dying [] Patient sleeping [] Family support [] [] Out of room [] Palliative care [] [] Receiving care in room [] Pre-surgical visit [] Trauma [] Long length of stay [] ICU visit [] Other: Relational/Emotional Strength [x] Patient feels connected with others/family/visitors/staff [] Distress [] Loneliness/isolation [] Abandonment Spirituality of Patient [x] Person of Susan [] Attends Judaism of their Susan [x] Believes in Prayer [x] Reads Bible or Alevism materials [] There are Spiritual issues to be addressed Electrical 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 Interventions [x] Prayer [x] Active listening [x] Non-anxious presence [x] Spiritual/emotional support [] Crisis/trauma care [] Spiritual counseling [] Bereavement support [] Provided bereavement packet [] Provided Bible/devotional materials [] Provided toy/stuffed animal, coloring book to patient or family member [] Provided Communion [] Anointing/[place] [] Salvation [x] Completed spiritual assessment [] Other: Impact on Illness or Injury [] Angry [] Fearful [] Anxious [] Often cries [] Exhaustion [] Unable to work [] Unable to attend cheondoism [] Unable to walk/stand [] Unable to read [] Unable to drive [] Unable to eat/drink [] Unable to sleep [] Unable to be with family [] Patient intubated [x] Other: Pt stated she has support at her place of residence when she returns home. Pt did not say what type of residence. Summary Pt was very pleasant and a pleasure to listen to her talk about her susan and all that God has and is doing for her. Pt is not concerned about her medical condition or being in the hospital. Time spent with patient 35 minutes
--- NOTE | 2019-12-02 17:43 | PM.PN ---
Subjective Subjective: Interval history: Transfer to ICU last night because of low blood pressures and her started on Levophed. On examination this morning patient is on levo fed of 4. Cheetah examination was done at patient had a SVI variants of 4%. On evaluation patient states she is feeling a lot better right now. She denies of having any further abdominal pain. Complains of occasional nausea but no vomiting. Denies of having any shortness of breath or palpitations. Patient has been draining more than 92% on room air. Vitals/I&O/Wt Last Vital Signs Temp 98.9 F 12/02/19 16:00 Pulse 92 12/02/19 16:00 Resp 23 H 12/02/19 16:00 BP 98/60 12/02/19 16:00 Pulse Ox 98 12/02/19 16:00 12/02/19 12/02/19 12/02/19 06:59 14:59 22:59 Intake Total 32.588 / 2484.188 1271.412 / 1271.412 67.937 / 1339.349 Output Total 800 / 800 Balance -767.412 / 0008.150 9443.412 / 1271.412 67.937 / 1339.349 Weight last 48 hrs Weight 54.975 kg Weight 54.431 kg Weight 46.72 kg Physical Exam Narrative: EXAM NARRATIVE: General: No acute distress, AO x3, quadriplegia HEENT: PERRLA, pupils bilaterally equal and reactive Chest: Normal vesicular breath sounds, no added sounds, equal good air entry bilaterally CVS: S1-S2 regular, no murmurs, no tachycardia, no gallops, no rubs Abdomen: Soft, generalized tender but less than yesterday all over the abdomen more so in the right lower quadrant, no organomegaly, bowel sounds present Neuro: Quadriplegia, AO x3, no facial deformity Urinary Catheter Management^: Dumont: Cath Placed During This Visit: yes Urethral Indwelling: Yes Reason for Continuing Indwelling Catheter: Other Urinary Catheter Date of Insertion: 12/01/19 Urinary Catheter Time of Insertion: 16:42 Data : 12/02/19 05:40 12/02/19 05:40 Micro: Microbiology 12/01/19 20:18 MRSA Culture - Final Nose 12/01/19 14:45 Urine Culture - Preliminary Urine,Clean Catch 12/01/19 14:48 Blood Culture - Preliminary Blood SPECIMEN COLLECTED A&P Assessment and plan (1) Sepsis: Status: Acute Qualifiers: Sepsis acute organ dysfunction status: unspecified Sepsis type: sepsis due to unspecified organism Qualified Code(s): A41.9 - Sepsis, unspecified organism Code(s): A41.9 - Sepsis, unspecified organism (2) Pyelonephritis: Status: Acute Code(s): N12 - Tubulo-interstitial nephritis, not specified as acute or chronic (3) Neurogenic bladder: Status: Acute Code(s): N31.9 - Neuromuscular dysfunction of bladder, unspecified (4) Left pelvic adnexal fluid collection: Status: Acute Code(s): R68.89 - Other general symptoms and signs (5) Post-traumatic quadriplegia: Status: Acute Code(s): G82.50 - Quadriplegia, unspecified (6) Chronic indwelling Dumont catheter: Status: Acute Code(s): Z96.0 - Presence of urogenital implants Additional A&P Information Sepsis: Most likely due to pyelonephritis versus complicated UTI: Chronic indwelling Dumont catheter. Patient is tachycardic, hypotensive, requiring multiple fluid boluses, with a source of UTI. Continue IV fluid hydration with normal saline @ 100 cc/h. Patient received ceftriaxone in the ER. We will continue ceftriaxone 1 g daily. Urine culture and blood culture history suggestive of infection previously because of E. coli, Morganella, Proteus, Klebsiella, enterococcus only last 1 year are susceptible to ceftriaxone in the past. If patient deteriorates can add vancomycin for resistant enterococcus. On further review of urine cultures patient had a urine culture done on October 30 which was suggestive of E. coli, Morganella, enterococcus. Enterococcus was sensitive to vancomycin. We will add vancomycin coverage and broaden to zosyn. We will continue antibiotics at renal dose. Keep mean arterial pressures over 60 mmHg. Will wean off Levophed accordingly. Cheetah not suggestive of fluid responsible continue the fluid at current rate and not give any boluses. Dumont catheter change in the ER yesterday. If patient continues detoriate will consult DR. Vail MRSA positive so will do contact isolation. Monitor intake and output, vitals. Will try to get documents from [facility] regarding preivous admission for urological procedure. Left pelvic adnexal fluid collection: Patient seen by Dr. Martinez from [facility]. As per him ultrasound and imaging not suggestive of ovarian torsion. MOst likely adhesions due to previous surgeries. Recommendations appreciated. Posttraumatic quadriplegia: Frequent positioning in the bed to avoid pressure ulcers. Continue home dose of [place]. Full code. Heparin 5000 subcu every 12 for DVT prophylaxis. Regular diet. Attestations Medical Necessity Statement*: Septic shock Critical Care Time: Critical Care Time (min): 60 Coding Level of Care Code Acute Manager Property for [facility] Diagnoses Sepsis A41.9 Sepsis acute organ dysfunction status: unspecified Sepsis type: sepsis due to unspecified organism Pyelonephritis N12 Neurogenic bladder N31.9 Left pelvic adnexal fluid collection R68.89 Post-traumatic quadriplegia G82.50 Chronic indwelling Dumont catheter Z96.0
[2019-12-02] MEDS: ondansetron 2 mg/ML SDV 2 mL 4 MG IVP (17:54)
[2019-12-02] MEDS: morphine 4 mg/mL SDV 1 mL 1 MG IVP (17:55)
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
[2019-12-03] VITALS (26 sets, daily range): BP systolic 85–127; BP diastolic 55–80; PULSE 56–96; RESP 12–32; TEMP 36.4–36.6; O2SAT 87–99
[2019-12-03] MEDS: piperacillin-tazobactam 3.375 GM in sodium chloride 0.9% (plus) 50 ML IV ×3 (01:04→18:33)
[2019-12-03] MEDS: heparin 5,000 unit/mL INJ 1 mL 5000 UNIT SUBCUT ×2 (01:05→12:22)
[2019-12-03] MEDS: morphine 4 mg/mL SDV 1 mL 1 MG IVP ×4 (01:11→22:31)
[2019-12-03] MEDS: ipratropium-albuterol 3 mL Neb INHALATION ×2 (02:50→08:28)
[2019-12-03] MEDS: vancomycin 1,000 MG in sodium chloride 0.9% 250 ML 250 MG IV (03:15)
[2019-12-03] MEDS: HYDROcodone-acetaminophen 5-325 mg Tablet 1 TAB PO ×3 (04:13→20:10)
[2019-12-03 05:12] LABS: Alanine Aminotransferase 17 U/L (0-33); Albumin Level 2.2 g/dL (3.5-5.2); Alkaline Phosphatase 184 IU/L (35-105); Anion Gap 16.4 (5-19); Aspartate Amino Transferase 22 U/L (0-32); Blood Urea Nitrogen 12 mg/dL (6-20); Calcium 7.9 mg/dL (8.5-10.5); Carbon Dioxide 17 mmol/L (22-29); Chloride 110 mmol/L (98-107); Globulin 4.3 g/dL (1.3-4.6); Glomerular Filtration Rate 48.8 mL/min (90-130); Glucose 103 mg/dL (65-115); Potassium 3.4 mmol/L (3.5-5.1); Sodium 140 mmol/L (136-145); Total Bilirubin 0.2 mg/dL (0.15-1.2); Total Protein 6.5 g/dL (6.6-8.7)
[2019-12-03 05:16] LABS: Basophils % 0.6 %; Eosinophils # 0.2 10^3/uL (0.0-0.8); Hematocrit 25.9 % (37.0-47.0); Hemoglobin 7.8 g/dL (11.5-15.3); Lymphocytes # 1.2 10^3/uL (0.8-4.8); Mean Corpuscular HGB Conc 30.1 g/dL (30.0-36.0); Mean Corpuscular Hemoglobin 27.9 pg (28.0-34.0); Mean Corpuscular Volume 92.5 fL (81-99); Mean Platelet Volume 9.9 fL (7.4-10.4); Monocytes # 0.7 10^3/uL (0.2-0.9); Monocytes % 9.6 %; Neutrophils # 4.6 10^3/uL (1.8-7.7); Neutrophils % 68.1 %; Nucleated Red Blood Cells % 0 %; Platelet Count 298 10^3/cmm (130-400); Red Cell Distribution Width 14.3 % (12.1-15.1); White Blood Count 6.7 10^3/uL (4.0-10.0)
[2019-12-03] MEDS: ondansetron 2 mg/ML SDV 2 mL 4 MG IVP ×3 (08:45→20:09)
[2019-12-03] MEDS: lactulose oral liq 20 gm/30 mL UDC 10 GM PO (08:45)
[2019-12-03] MEDS: docusate sodium 100 mg Capsule PO ×2 (08:45→18:33)
[2019-12-03] MEDS: sodium chloride 0.9% 1,000 ML 100 ML IV ×2 (08:46→18:33)
--- NOTE | 2019-12-03 10:20 | US_ITS ---
WS: [id number] ABDOMINAL ULTRASOUND LIMITED HISTORY: 44 years old Female with right upper quadrant pain COMPARISON: CT abdomen 12/01/2019 TECHNIQUE: Grayscale and Doppler ultrasound examination of the abdomen. FINDINGS: Pancreas: Head and body unremarkable, and tail not seen. No main ductal dilatation. Abdominal aorta and IVC: Included portions not dilated. Liver: Liver measures 15.1 cm in length. Size, contour, parenchyma echogenicity, and intrahepatic brittney e ducts unremarkable. Portal venous flow antegrade. Gallbladder: Gallbladder wall thickness measures 2.5 mm. No wall thickening, hydrops, stone, sludge, or extra hepatic bile duct dilatation. Minimal pericholecystic fluid is seen. Right kidney: Kidney is partially obscured. No solid or cystic mass seen. No obvious hydronephrosis o r shadowing calculus. No right quadrant fluid collection or other free fluid seen. US/US liver [id number] IMPRESSION: 1. No pericholecystic fluid without evidence of gallbladder wall thickening. Ea rly changes of acute cholecystitis not entirely excluded. Close follow-up dixon najera. 2. Partially obscured right kidney without evidence of obvious hydronephrosis o r nephrolithiasis.
--- NOTE | 2019-12-03 10:24 | PM.PN ---
Subjective Subjective: Interval history: No acute events overnight. This morning on evaluation patient is on levo fed of 1 with mean arterial blood pressure of 77. Patient continues to complain of nausea with abdominal pain. She denies of having any vomiting, headache, dizziness, palpitations. Patient yesterday had a Fleet enema and after that had a good bowel movement. Vitals/I&O/Wt Last Vital Signs Temp 98.9 F 12/02/19 16:00 Pulse 78 12/03/19 08:31 Resp 16 12/03/19 08:28 BP 121/80 12/03/19 04:00 Pulse Ox 96 12/03/19 08:28 12/02/19 12/03/19 12/03/19 22:59 06:59 14:59 Intake Total 145.804 / 9463.713 8019.166 / 2479.382 965 / 965 Output Total 1700 / 1700 1950 / 3650 Balance -1554.196 / -232.784 -937.834 / -1170.618 965 / 965 Weight last 48 hrs Weight 56.699 kg Weight 54.975 kg Weight 54.431 kg Weight 46.72 kg Physical Exam Narrative: EXAM NARRATIVE: General: No acute distress, AO x3, quadriplegia HEENT: PERRLA, pupils bilaterally equal and reactive Chest: Normal vesicular breath sounds, no added sounds, equal good air entry bilaterally CVS: S1-S2 regular, no murmurs, no tachycardia, no gallops, no rubs Abdomen: Soft, generalized tender but less than yesterday all over the abdomen more so in the right lower quadrant, no organomegaly, bowel sounds present Neuro: Quadriplegia, AO x3, no facial deformity Urinary Catheter Management^: Dumont: Cath Placed During This Visit: yes Urethral Indwelling: Yes Reason for Continuing Indwelling Catheter: Other Urinary Catheter Date of Insertion: 12/01/19 Urinary Catheter Time of Insertion: 16:42 Data : 12/03/19 04:35 12/03/19 04:35 Micro: Microbiology 12/01/19 14:48 Blood Culture - Preliminary Blood NEGATIVE TO DATE 12/01/19 20:18 MRSA Culture - Final Nose 12/01/19 14:45 Urine Culture - Preliminary Urine,Clean Catch A&P Assessment and plan (1) Sepsis: Status: Acute Qualifiers: Sepsis acute organ dysfunction status: unspecified Sepsis type: sepsis due to unspecified organism Qualified Code(s): A41.9 - Sepsis, unspecified organism Code(s): A41.9 - Sepsis, unspecified organism (2) Pyelonephritis: Status: Acute Code(s): N12 - Tubulo-interstitial nephritis, not specified as acute or chronic (3) Neurogenic bladder: Status: Acute Code(s): N31.9 - Neuromuscular dysfunction of bladder, unspecified (4) Left pelvic adnexal fluid collection: Status: Acute Code(s): R68.89 - Other general symptoms and signs (5) Post-traumatic quadriplegia: Status: Acute Code(s): G82.50 - Quadriplegia, unspecified (6) Chronic indwelling Dumont catheter: Status: Acute Code(s): Z96.0 - Presence of urogenital implants (7) Nausea: Status: Acute Code(s): R11.0 - Nausea Additional A&P Information Sepsis: Most likely due to pyelonephritis versus complicated UTI: Chronic indwelling Dumont catheter. Patient is tachycardic, hypotensive, requiring multiple fluid boluses, with a source of UTI. Continue IV fluid hydration with normal saline @ 100 cc/h. Most recent urine cultures patient had a urine culture done on October 30 which was suggestive of E. coli, Morganella, enterococcus. Enterococcus was sensitive to vancomycin. Continue with of Vancomycin and zosyn at renally dosed. We will continue follow-up cultures. Will de-escalate as per culture results Keep mean arterial pressures over 60 mmHg. Stop levophed as MAP >65mmhg. If patient continues detoriate will consult DR. Vail MRSA positive so will do contact isolation. Monitor intake and output, vitals. Documents from [facility] reviewed. Patient had a protracted course because of bladder rupture requiring multiple surgeries with bladder reconstruction nephrostomy tube and ureteral stents. Nausea: Given generalized abdominal tenderness more so in the right upper quadrant cannot rule out acute cholecystitis though she is completely covered with antibiotics. We will get right upper quadrant ultrasound to rule out gallstones. We will change patient diet to full liquid diet and see how she does. Will advance as tolerated. Left pelvic adnexal fluid collection: Patient seen by Dr. Martinez from [facility]. As per him ultrasound and imaging not suggestive of ovarian torsion. MOst likely adhesions due to previous surgeries. Recommendations appreciated. Posttraumatic quadriplegia: Frequent positioning in the bed to avoid pressure ulcers. Continue home dose of [place]. Full code. Heparin 5000 subcu every 12 for DVT prophylaxis. Liquid diet If patient continues to do well can plan to transfer to floors today later in the day. Attestations Medical Necessity Statement*: Needs controlled hospitalization for management of sepsis due to complicated UTI Time Spent in Patient Care: Greater than 35 minutes Coding Level of Care Code Acute Data Assistant for [facility] Fwd Diagnoses Sepsis A41.9 Sepsis acute organ dysfunction status: unspecified Sepsis type: sepsis due to unspecified organism Pyelonephritis N12 Neurogenic bladder N31.9 Left pelvic adnexal fluid collection R68.89 Post-traumatic quadriplegia G82.50 Chronic indwelling Dumont catheter Z96.0 Nausea R11.0
[2019-12-03 10:55] LABS: Lipase 7 U/L (13-60)
[2019-12-03] MEDS: sennosides 8.6 mg Tablet 17.2 MG PO (20:11)
[2019-12-03] MEDS: polyethylene glycol 3350 Pkt 17 gm PO (22:30)
[2019-12-03] MEDS: glycerin adult supp 1 EACH PR (22:31)
[2019-12-04] VITALS (17 sets, daily range): BP systolic 99–130; BP diastolic 63–84; PULSE 57–78; RESP 9–26; TEMP 36.4–36.7; O2SAT 95–100
[2019-12-04] MEDS: piperacillin-tazobactam 3.375 GM in sodium chloride 0.9% (plus) 50 ML IV ×3 (01:20→17:15)
[2019-12-04] MEDS: heparin 5,000 unit/mL INJ 1 mL 5000 UNIT SUBCUT ×2 (01:20→13:13)
[2019-12-04] MEDS: morphine 4 mg/mL SDV 1 mL 1 MG IVP ×4 (02:43→20:53)
[2019-12-04] MEDS: ondansetron 2 mg/ML SDV 2 mL 4 MG IVP ×3 (02:45→20:54)
[2019-12-04 03:28] LABS: Basophils % 0.7 %; Eosinophils # 0.2 10^3/uL (0.0-0.8); Eosinophils % 4.3 %; Hematocrit 26.6 % (37.0-47.0); Lymphocytes # 0.9 10^3/uL (0.8-4.8); Lymphocytes % 21.9 %; Mean Corpuscular HGB Conc 30.1 g/dL (30.0-36.0); Mean Corpuscular Hemoglobin 28.2 pg (28.0-34.0); Mean Corpuscular Volume 93.7 fL (81-99); Monocytes # 0.3 10^3/uL (0.2-0.9); Monocytes % 6.7 %; Neutrophils # 2.7 10^3/uL (1.8-7.7); Neutrophils % 65.7 %; Nucleated Red Blood Cells % 0 %; Platelet Count 265 10^3/cmm (130-400); Red Blood Count 2.84 10^6/uL (4.1-5.3); Red Cell Distribution Width 14.3 % (12.1-15.1); White Blood Count 4.2 10^3/uL (4.0-10.0)
[2019-12-04 03:43] LABS: Alanine Aminotransferase 12 U/L (0-33); Albumin Level 1.9 g/dL (3.5-5.2); Alkaline Phosphatase 152 IU/L (35-105); Anion Gap 14.1 (5-19); Aspartate Amino Transferase 14 U/L (0-32); Blood Urea Nitrogen 7 mg/dL (6-20); Calcium 8.1 mg/dL (8.5-10.5); Carbon Dioxide 18 mmol/L (22-29); Chloride 111 mmol/L (98-107); Globulin 3.7 g/dL (1.3-4.6); Glucose 87 mg/dL (65-115); Potassium 4.1 mmol/L (3.5-5.1); Sodium 139 mmol/L (136-145); Total Bilirubin 0.2 mg/dL (0.15-1.2); Total Protein 5.6 g/dL (6.6-8.7); Vancomycin Trough 14.9 ug/mL (10-15)
[2019-12-04] MEDS: vancomycin 1,000 MG in sodium chloride 0.9% 250 ML 250 MG IV (04:55)
[2019-12-04] MEDS: sodium chloride 0.9% 1,000 ML 100 ML IV ×2 (05:00→15:13)
[2019-12-04] MEDS: HYDROcodone-acetaminophen 5-325 mg Tablet 1 TAB PO ×3 (07:08→23:26)
[2019-12-04] MEDS: lactulose oral liq 20 gm/30 mL UDC 10 GM PO (08:31)
[2019-12-04] MEDS: polyethylene glycol 3350 Pkt 17 gm PO (08:31)
[2019-12-04] MEDS: docusate sodium 100 mg Capsule PO ×2 (08:31→17:14)
--- NOTE | 2019-12-04 09:05 | CT_ITS ---
WS: [id number] CT ABDOMEN AND PELVIS HISTORY: 44 years old Female with history of bladder reconstruction. Concern for abscess. COMPARISON: CT abdomen pelvis 12/01/2019 TECHNIQUE: 5 mm post IV contrast axial CT images of the abdomen pelvis with 2-D reformations and dose reduction technique. Oral contrast absent. DLP: 876.[address] scans at [facility] use at least one of these dose optimization techniques: automat ed exposure control; mA and/or kV adjustment per patient size (includes targeted exams where dose is matched to clinical indication); or iterative reconstruction. FINDINGS: Interval small bilateral pleural effusions. Interval dependent subpleural airspace opacity. Included heart size unremarkable. No pericardial thickening or effusion. GE junction and distal esophagus unre markable. Distal descending thoracic aorta unremarkable. Included ribs intact. Spleen slightly enlarged measuring 13.6 cm AP. Left adrenal gland 16 mm nodule unchanged. Right adren al gland induration of the left adrenal gland unremarkable. Pancreas, gallbladder, and liver are unre markable. Right mid kidney calcification measuring 8.9 mm reidentified. Mild bilateral uroepithelial thickening reidentified. Bilateral renal extrarenal pelvises reidentified. No biliary or other urinar y collecting system stone seen. No peripancreatic, pericholecystic, or significant perinephric fat in duration. Stomach, small bowel, large bowel are not abnormally distended. No pathologic air-fluid levels. Moder ate fecal retention. Small amount of pelvic free fluid is similar. Left lower pelvis thin-walled flui d collection measuring 4.2 x 4.3 cm is without significant change. Right lower pelvis round focus of fluid measuring 4.1 x 3.4 cm without significant change. Interval small amount of right paracolic gut ter free fluid. Appendix is not enlarged. No definite new fluid collection is seen. No free air. Fole y balloon within the urinary bladder. Air in the urinary bladder. No inguinal, retroperitoneal, or mesenteric enlarged lymph node or mass. Left periaortic 8 mm short a xis lymph node unchanged. Abdominal aorta atherosclerosis without evidence of aneurysm. Bilateral hi p osteoarthritic change. No fracture, osteolytic or osteoblastic change. Bilateral hip osteoarthritic change. CT/CT abdomen pelvis w con* [id number] IMPRESSION: 1. Interval small bilateral pleural effusions with dependent bilateral lower lo be subpleural atelectasis and/or pneumonia. 2. Unchanged pelvic small free fluid and new right paracolic gutter small amoun t of free fluid. 3. Unchanged pelvic thin-walled fluid collections. 4. Gas and Dumont balloon within the urinary bladder. 5. Right nephrolithiasis. 6. Continued bilateral uroepithelial mucosal thickening and hyperemia. Correlat e for urinary tract infection.
--- NOTE | 2019-12-04 09:50 | PC.SOCIAL ---
IMM Page 2 of [facility] explained to patient and she verbalizes understanding. Patient unable to physically sign. Initialed, dated, and timed and placed in chart. Copy provided to patient.
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
--- NOTE | 2019-12-04 10:32 | PC.NURSE ---
wound Dr. Izquierdo at bedside to assess wound. orders given for silvasorb gel to be applied to wound bed and covered with hydrafera blue change daily. continue with optifoam dressing to the stage 2 on the sacrum. pt tolerated fair.
[2019-12-04] MEDS: iohexol 300 mg/mL 100 mL Btl IV (11:24)
--- NOTE | 2019-12-04 12:13 | PC.NURSE ---
Addendum entered by Kori Edmondson RN 12/04/19 12:15: time of this note was 1100 Original Note: pt tranferred to [facility] after going to [place] via bed. pt tolerated fair. report given to Ginger PONCE dressing change completed with Ginger PONCE.
--- NOTE | 2019-12-04 12:39 | P.PN_ITS ---
Subjective Subjective: Interval history: No acute events overnight. Last 24 hours her blood pressures had remained acceptable. Mean arterial pressures have remained over 65 mmHg without being on Levophed for last 24 hours. Patient continues to complain of mild nausea but states is improved her bed. Patient is found to have decubitus ulcers which seem to be stage III. She denies of having any vomiting, headache, dizziness, palpitations. Vitals/I&O/Wt Last Vital Signs Temp 97.5 F L 12/04/19 11:42 Pulse 74 12/04/19 11:42 Resp 16 12/04/19 11:42 BP 116/77 12/04/19 11:42 Pulse Ox 95 12/04/19 11:42 12/03/19 12/04/19 12/04/19 22:59 06:59 14:59 Intake Total 1268.333 / 2583.333 1373.333 / 3956.666 120 / 120 Output Total 2600 / 2600 250 / 2850 Balance -1331.667 / -16.667 1123.333 / 1106.666 120 / 120 Weight last 48 hrs Weight 56.416 kg Weight 56.699 kg Physical Exam Narrative: EXAM NARRATIVE: General: No acute distress, AO x3, quadriplegia HEENT: PERRLA, pupils bilaterally equal and reactive Chest: Normal vesicular breath sounds, no added sounds, equal good air entry bilaterally CVS: S1-S2 regular, no murmurs, no tachycardia, no gallops, no rubs Abdomen: Soft, generalized tender but less than yesterday all over the abdomen more so in the right lower quadrant, no organomegaly, bowel sounds present Neuro: Quadriplegia, AO x3, no facial deformity Urinary Catheter Management^: Dumont: Cath Placed During This Visit: yes Urethral Indwelling: Yes Reason for Continuing Indwelling Catheter: Chronic Indwelling Urinary Catheter on Admission Urinary Catheter Date of Insertion: 12/01/19 Urinary Catheter Time of Insertion: 16:42 Data : 12/04/19 03:22 12/04/19 03:22 Micro: Microbiology 12/01/19 14:45 Urine Culture - Preliminary Urine,Clean Catch Proteus mirabilis Strep species, gamma-hemolytic A&P Assessment and plan (1) Sepsis: Status: Acute Qualifiers: Sepsis acute organ dysfunction status: unspecified Sepsis type: sepsis due to unspecified organism Qualified Code(s): A41.9 - Sepsis, unspecified organism Code(s): A41.9 - Sepsis, unspecified organism (2) Pyelonephritis: Status: Acute Code(s): N12 - Tubulo-interstitial nephritis, not specified as acute or chronic (3) Neurogenic bladder: Status: Acute Code(s): N31.9 - Neuromuscular dysfunction of bladder, unspecified (4) Left pelvic adnexal fluid collection: Status: Acute Code(s): R68.89 - Other general symptoms and signs (5) Post-traumatic quadriplegia: Status: Acute Code(s): G82.50 - Quadriplegia, unspecified (6) Chronic indwelling Dumont catheter: Status: Acute Code(s): Z96.0 - Presence of urogenital implants (7) Nausea: Status: Acute Code(s): R11.0 - Nausea Additional A&P Information Sepsis: Most likely due to pyelonephritis versus complicated UTI: Chronic indwelling Dumont catheter. On reviewing the documents from [facility] patient over there had a protracted course in which she had developed abdominal abscesses because of bladder rupture and had bladder reconstruction surgery, nephrostomy tube and ureteral stents placed. Most recent urine cultures patient had a urine culture done on October 30 which was suggestive of E. coli, Morganella, enterococcus. Enterococcus was sensitive to vancomycin. Continue with of Vancomycin and zosyn at renally dosed. We will continue follow-up cultures. Will de-escalate as per culture results. Will repeat CT abdomen today with IV contrast to have better assessment of fluid collections in the abdomen. Patient would most likely need CT-guided fluid drainage for analysis. It is important to rule out persistent intra-abdominal abscesses to determine the course and duration of antibiotics. MRSA positive so will do contact isolation. Monitor intake and output, vitals. Nausea: Ultrasound done yesterday suggestive of resolving cholecystitis. We will continue the same antibiotics for now as they would cover for cholecystitis as well. We will continue on full liquid diet for now and advance as tolerated. Left pelvic adnexal fluid collection: Patient seen by Dr. Martinez from [facility]. As per him ultrasound and imaging not suggestive of ovarian torsion. Most likely adhesions due to previous surgeries. Recommendations appreciated. Posttraumatic quadriplegia: Frequent positioning in the bed to avoid pressure ulcers. Continue home dose of [place]. Decubitus ulcers: We will have surgical consultation for assistance with further debridement versus wound care. Frequent position in bed every 4 hours. We will ask for air bed. Continue with aggressive bowel regimen. Full code. Heparin 5000 subcu every 12 for DVT prophylaxis. Liquid diet Transfer to [facility] today. Attestations Medical Necessity Statement*: Needs further hospitalization for management of sepsis due to complicated UTI. Time Spent in Patient Care: Greater than 35 minutes Coding Level of Care Code Acute Commercial Construction Superintendent for [facility] Fwd Diagnoses Sepsis A41.9 Sepsis acute organ dysfunction status: unspecified Sepsis type: sepsis due to unspecified organism Pyelonephritis N12 Neurogenic bladder N31.9 Left pelvic adnexal fluid collection R68.89 Post-traumatic quadriplegia G82.50 Chronic indwelling Dumont catheter Z96.0 Nausea R11.0
[2019-12-04] MEDS: promethazine 25 mg/mL SDV 1 mL 12.5 MG IM ×2 (13:13→23:26)
[2019-12-04] MEDS: silvasorb gel 44.4 mL 1 APPLIC TOPICAL (13:13)
[2019-12-04] MEDS: sennosides 8.6 mg Tablet 17.2 MG PO (20:54)
[2019-12-05] VITALS (11 sets, daily range): BP systolic 97–132; BP diastolic 61–85; PULSE 65–76; RESP 14–20; TEMP 36.6–36.7; O2SAT 93–100
[2019-12-05] MEDS: morphine 4 mg/mL SDV 1 mL 1 MG IVP ×3 (01:04→19:43)
[2019-12-05] MEDS: heparin 5,000 unit/mL INJ 1 mL 5000 UNIT SUBCUT ×2 (01:56→12:53)
[2019-12-05] MEDS: piperacillin-tazobactam 3.375 GM in sodium chloride 0.9% (plus) 50 ML IV ×3 (01:57→18:10)
[2019-12-05] MEDS: HYDROcodone-acetaminophen 5-325 mg Tablet 1 TAB PO ×4 (03:29→22:09)
[2019-12-05] MEDS: vancomycin 1,000 MG in sodium chloride 0.9% 250 ML 250 MG IV (03:38)
[2019-12-05 06:41] LABS: Basophils % 0.6 %; Eosinophils # 0.2 10^3/uL (0.0-0.8); Eosinophils % 5.1 %; Hematocrit 28.9 % (37.0-47.0); Lymphocytes # 1.1 10^3/uL (0.8-4.8); Lymphocytes % 24.3 %; Mean Corpuscular HGB Conc 31.1 g/dL (30.0-36.0); Mean Corpuscular Volume 93.2 fL (81-99); Mean Platelet Volume 9.7 fL (7.4-10.4); Monocytes # 0.3 10^3/uL (0.2-0.9); Monocytes % 5.3 %; Nucleated Red Blood Cells % 0 %; Platelet Count 297 10^3/cmm (130-400); Red Cell Distribution Width 13.9 % (12.1-15.1); White Blood Count 4.7 10^3/uL (4.0-10.0)
[2019-12-05 07:10] LABS: Albumin Level 2.2 g/dL (3.5-5.2); Alkaline Phosphatase 150 IU/L (35-105); Anion Gap 17.1 (5-19); Blood Urea Nitrogen 6 mg/dL (6-20); Calcium 7.8 mg/dL (8.5-10.5); Carbon Dioxide 16 mmol/L (22-29); Chloride 108 mmol/L (98-107); Globulin 2.8 g/dL (1.3-4.6); Glomerular Filtration Rate 77.9 mL/min (90-130); Glucose 81 mg/dL (65-115); Potassium 4.1 mmol/L (3.5-5.1); Sodium 137 mmol/L (136-145); Total Bilirubin 0.2 mg/dL (0.15-1.2)
[2019-12-05 07:43] LABS: Alanine Aminotransferase 11 U/L (0-33); Aspartate Amino Transferase 17 U/L (0-32)
[2019-12-05] MEDS: lactulose oral liq 20 gm/30 mL UDC 10 GM PO (08:22)
[2019-12-05] MEDS: polyethylene glycol 3350 Pkt 17 gm PO (08:22)
[2019-12-05] MEDS: docusate sodium 100 mg Capsule PO ×2 (08:22→18:10)
[2019-12-05] MEDS: ondansetron 2 mg/ML SDV 2 mL 4 MG IVP (09:17)
--- NOTE | 2019-12-05 09:56 | XR_ITS ---
WS: [id number] CHEST XRAY TECHNIQUE: Portable chest. CLINICAL INFORMATION: Placement of PICC line COMPARISON: None. FINDINGS Right PICC line has been retracted with tip in the mid SVC in good position. No pneumothorax.: Heart: Normal cardiac silhouette. Lungs: Lungs are clear. No consolidation or pleural effusion. Bones: Normal visualized bony structures. XR/XR chest 1V portable [id number] IMPRESSION: Right PICC line tip in the mid SVC in good position.
[2019-12-05] MEDS: silvasorb gel 44.4 mL 1 APPLIC TOPICAL (10:56)
[2019-12-05] MEDS: sodium chloride 0.9% 1,000 ML 100 ML IV (15:05)
--- NOTE | 2019-12-05 18:21 | PM.PN ---
Subjective Subjective: Interval history: Rosanne reports she is doing better. She has less abdominal pain. Medications: Reviewed: Yes Vitals/I&O/Wt Last Vital Signs Temp 97.8 F 12/05/19 15:41 Pulse 66 12/05/19 15:41 Resp 14 12/05/19 15:41 BP 98/63 12/05/19 15:41 Pulse Ox 98 12/05/19 15:41 12/05/19 12/05/19 12/05/19 06:59 14:59 22:59 Intake Total 1050 / 2830 410 / 410 Output Total 2500 / 5050 1600 / 1600 450 / 2050 Balance -1450 / -2220 -1190 / -1190 -450 / -1640 Weight last 48 hrs Weight 56.245 kg Weight 56.416 kg Physical Exam Narrative: EXAM NARRATIVE: General exam no apparent distress Cardiovascular regular rate and rhythm without murmur Lungs clear Abdomen is soft, slight tenderness suprapubic area. Extremities no cyanosis clubbing or edema Urinary Catheter Management^: Dumont: Cath Placed During This Visit: yes Urethral Indwelling: Yes Reason for Continuing Indwelling Catheter: Chronic Indwelling Urinary Catheter on Admission Urinary Catheter Date of Insertion: 12/01/19 Urinary Catheter Time of Insertion: 16:42 Data : 12/05/19 06:24 12/05/19 06:24 Micro: Microbiology 12/01/19 14:45 Urine Culture - Preliminary Urine,Clean Catch Proteus mirabilis Enterococcus faecalis Gram Negative Rods 12/03/19 19:50 Wound Culture - Preliminary Other Source Staphylococcus aureus A&P Assessment and plan (1) Sepsis: Resolving. Presumably from to pyelonephritis Status: Acute Qualifiers: Sepsis acute organ dysfunction status: unspecified Sepsis type: sepsis due to unspecified organism Qualified Code(s): A41.9 - Sepsis, unspecified organism Code(s): A41.9 - Sepsis, unspecified organism (2) Pyelonephritis: Cultures pending. Multiple organisms. Proteus, enterococcus, gram-negative rods. Status: Acute Code(s): N12 - Tubulo-interstitial nephritis, not specified as acute or chronic (3) Neurogenic bladder: Status: Acute Code(s): N31.9 - Neuromuscular dysfunction of bladder, unspecified (4) Left pelvic adnexal fluid collection: Have asked for old records from [facility], to determine size of pelvic abscess, abdominal abscess at that time. Status: Acute Code(s): R68.89 - Other general symptoms and signs (5) Post-traumatic quadriplegia: Status: Acute Code(s): G82.50 - Quadriplegia, unspecified (6) Chronic indwelling Dumont catheter: Was placed following her stay at [place] after patient's description of bladder rupture. Status post bladder reconstruction, nephrostomy/stents placed Status: Acute Code(s): Z96.0 - Presence of urogenital implants (7) Nausea: Resolved Status: Acute Code(s): R11.0 - Nausea Additional A&P Information Decubitus ulcers. Surgery has debrided and made wound care recommendations. Scant growth of staph aureus Heparin for DVT prophylaxis Attestations Medical Necessity Statement*: Needs continued hospitalization for IV antibiotics secondary to pyelonephritis. Coding Level of Care Code Acute [employer] [facility] for [facility] Fwd Diagnoses Sepsis A41.9 Sepsis acute organ dysfunction status: unspecified Sepsis type: sepsis due to unspecified organism Pyelonephritis N12 Neurogenic bladder N31.9 Left pelvic adnexal fluid collection R68.89 Post-traumatic quadriplegia G82.50 Chronic indwelling Dumont catheter Z96.0 Nausea R11.0
[2019-12-05] MEDS: sennosides 8.6 mg Tablet 17.2 MG PO (22:09)
[2019-12-06] VITALS (7 sets, daily range): BP systolic 125–144; BP diastolic 75–88; PULSE 65–98; RESP 16–20; TEMP 36.7–37.2; O2SAT 96–98
[2019-12-06] MEDS: piperacillin-tazobactam 3.375 GM in sodium chloride 0.9% (plus) 50 ML IV ×3 (02:40→18:14)
[2019-12-06] MEDS: heparin 5,000 unit/mL INJ 1 mL 5000 UNIT SUBCUT ×2 (02:40→15:32)
[2019-12-06] MEDS: sodium chloride 0.9% 1,000 ML 100 ML IV (02:42)
[2019-12-06] MEDS: HYDROcodone-acetaminophen 5-325 mg Tablet 1 TAB PO ×4 (05:00→22:09)
[2019-12-06] MEDS: vancomycin 1,000 MG in sodium chloride 0.9% 250 ML 250 MG IV (05:37)
[2019-12-06 06:34] LABS: Basophils % 0.4 %; Eosinophils # 0.2 10^3/uL (0.0-0.8); Eosinophils % 3.3 %; Hematocrit 25.7 % (37.0-47.0); Hemoglobin 7.9 g/dL (11.5-15.3); Lymphocytes # 1.2 10^3/uL (0.8-4.8); Lymphocytes % 22.4 %; Mean Corpuscular HGB Conc 30.7 g/dL (30.0-36.0); Mean Corpuscular Hemoglobin 27.7 pg (28.0-34.0); Mean Corpuscular Volume 90.2 fL (81-99); Mean Platelet Volume 9.5 fL (7.4-10.4); Monocytes # 0.3 10^3/uL (0.2-0.9); Neutrophils # 3.7 10^3/uL (1.8-7.7); Neutrophils % 67.1 %; Nucleated Red Blood Cells % 0 %; Platelet Count 366 10^3/cmm (130-400); Red Blood Count 2.85 10^6/uL (4.1-5.3); White Blood Count 5.4 10^3/uL (4.0-10.0)
[2019-12-06 06:54] LABS: Anion Gap 15.3 (5-19); Carbon Dioxide 20 mmol/L (22-29); Chloride 108 mmol/L (98-107); Glucose 94 mg/dL (65-115); Potassium 3.3 mmol/L (3.5-5.1); Sodium 140 mmol/L (136-145)
[2019-12-06 07:33] LABS: Blood Urea Nitrogen 9 mg/dL (6-20); Calcium 7.8 mg/dL (8.5-10.5); Osmolality Calculated 284 mOsm/kg (285-295)
[2019-12-06] MEDS: morphine 4 mg/mL SDV 1 mL 1 MG IVP ×2 (09:07→15:32)
--- NOTE | 2019-12-06 09:35 | PC.SOCIAL ---
IMM Updated Page 2 of IMM explained to patient. She is physically unable to sign. Initialed, dated, and timed and placed in chart.
[2019-12-06] MEDS: lactulose oral liq 20 gm/30 mL UDC 10 GM PO (10:22)
[2019-12-06] MEDS: polyethylene glycol 3350 Pkt 17 gm PO (10:23)
[2019-12-06] MEDS: silvasorb gel 44.4 mL 1 APPLIC TOPICAL (10:23)
[2019-12-06] MEDS: docusate sodium 100 mg Capsule PO (10:23)
--- NOTE | 2019-12-06 17:11 | P.PN_ITS ---
Subjective Subjective: Interval history: Rosanne reports she is doing well. Abdomen is not hurting as much. Medications: Reviewed: Yes Vitals/I&O/Wt Last Vital Signs Temp 98.5 F 12/06/19 16:00 Pulse 69 12/06/19 16:00 Resp 16 12/06/19 16:00 BP 133/79 12/06/19 16:00 Pulse Ox 97 12/06/19 16:00 12/06/19 12/06/19 12/06/19 06:59 14:59 22:59 Intake Total 1125 / 1825 480 / 480 Output Total 1050 / 3100 425 / 425 450 / 875 Balance 75 / -1275 55 / 55 -450 / -395 Weight last 48 hrs Weight 56.245 kg Physical Exam Narrative: EXAM NARRATIVE: General exam no apparent distress Cardiovascular regular rate and rhythm without murmur Lungs clear Abdomen is soft, slight tenderness suprapubic area. Extremities no cyanosis clubbing or edema Urinary Catheter Management^: Dumont: Cath Placed During This Visit: yes Urethral Indwelling: Yes Reason for Continuing Indwelling Catheter: Chronic Indwelling Urinary Catheter on Admission Urinary Catheter Date of Insertion: 12/01/19 Urinary Catheter Time of Insertion: 16:42 Data : 12/06/19 06:03 12/06/19 06:03 Micro: Microbiology 12/01/19 14:45 Urine Culture - Preliminary Urine,Clean Catch Proteus mirabilis Enterococcus faecalis Gram Negative Rods 12/03/19 19:50 Wound Culture - Preliminary Other Source Methicillin Resis Staph Aureus A&P Assessment and plan (1) Sepsis: Resolving. Presumably from to pyelonephritis Status: Acute Qualifiers: Sepsis acute organ dysfunction status: unspecified Sepsis type: sepsis due to unspecified organism Qualified Code(s): A41.9 - Sepsis, unspecified organism Code(s): A41.9 - Sepsis, unspecified organism (2) Pyelonephritis: Cultures pending. Multiple organisms. Proteus, enterococcus, gram- negative rods yet to be identified Status: Acute Code(s): N12 - Tubulo-interstitial nephritis, not specified as acute or chronic (3) Neurogenic bladder: Status: Acute Code(s): N31.9 - Neuromuscular dysfunction of bladder, unspecified (4) Left pelvic adnexal fluid collection: Have asked for old records from [facility], to determine size of pelvic abscess, abdominal abscess at that time. Still awaiting records Status: Acute Code(s): R68.89 - Other general symptoms and signs (5) Post-traumatic quadriplegia: Status: Acute Code(s): G82.50 - Quadriplegia, unspecified (6) Chronic indwelling Dumont catheter: Was placed following her stay at [place] after patient's description of bladder rupture. Status post bladder reconstruction, nephrostomy/stents placed Status: Acute Code(s): Z96.0 - Presence of urogenital implants (7) Nausea: Resolved Status: Acute Code(s): R11.0 - Nausea Additional A&P Information Decubitus ulcers. Surgery has debrided and made wound care recommendations. Wound culture grew MRSA Heparin for DVT prophylaxis Patient considering transition to halfway facility Consider linezolid on discharge secondary to MRSA and enterococcus Will await further identification of other gram-negative chelly in urine prior to other medication/antibiotic that could be used on discharge as well as records from [facility]. Attestations Medical Necessity Statement*: Needs continued hospitalization for IV antibiotics related to sepsis/UTI Coding Level of Care Code Acute Nurse Clinical for [facility] Fwd Diagnoses Sepsis A41.9 Sepsis acute organ dysfunction status: unspecified Sepsis type: sepsis due to unspecified organism Pyelonephritis N12 Neurogenic bladder N31.9 Left pelvic adnexal fluid collection R68.89 Post-traumatic quadriplegia G82.50 Chronic indwelling Dumont catheter Z96.0 Nausea R11.0
[2019-12-07] VITALS (9 sets, daily range): BP systolic 103–132; BP diastolic 63–86; PULSE 71–82; RESP 16–22; TEMP 36.6–37.2; O2SAT 95–98
[2019-12-07] MEDS: morphine 4 mg/mL SDV 1 mL 1 MG IVP ×3 (01:19→13:39)
[2019-12-07] MEDS: sodium chloride 0.9% 1,000 ML 100 ML IV (02:14)
[2019-12-07] MEDS: piperacillin-tazobactam 3.375 GM in sodium chloride 0.9% (plus) 50 ML IV ×2 (03:23→09:52)
[2019-12-07] MEDS: heparin 5,000 unit/mL INJ 1 mL 5000 UNIT SUBCUT ×2 (03:23→15:31)
[2019-12-07 04:03] LABS: Vancomycin Trough 14.6 ug/mL (10-15)
[2019-12-07] MEDS: vancomycin 1,000 MG in sodium chloride 0.9% 250 ML 150 MG IV (04:43)
[2019-12-07] MEDS: ondansetron 2 mg/ML SDV 2 mL 4 MG IVP (07:42)
[2019-12-07] MEDS: polyethylene glycol 3350 Pkt 17 gm PO (08:56)
[2019-12-07] MEDS: lactulose oral liq 20 gm/30 mL UDC 10 GM PO (08:56)
[2019-12-07] MEDS: docusate sodium 100 mg Capsule PO (08:56)
--- NOTE | 2019-12-07 09:10 | PC.NURSE ---
Unable to obtain patients weight, the bed has a non working scale
[2019-12-07] MEDS: HYDROcodone-acetaminophen 5-325 mg Tablet 1 TAB PO ×2 (11:27→15:34)
--- NOTE | 2019-12-07 12:39 | P.DS_ITS ---
Discharge Providers Date of Admission: 12/01/19 19:49 Date of Discharge: December 07, 2019 Attending Provider at Admission: Damir Ernst MD Attending Provider at Discharge: Sedrick Cruz MD Diagnoses at Discharge Discharge Diagnosis (1) Sepsis: Status: Acute Problem details: Resolved, likely secondary to UTI. Multiple organisms. MRSA also grew from wound culture on decubitus. No bacteremia. Qualifiers: Sepsis acute organ dysfunction status: unspecified Sepsis type: sepsis due to unspecified organism Qualified Code(s): A41.9 - Sepsis, unspecified organism (2) Pyelonephritis: Status: Acute Problem details: Multiple organisms, Morganella, Proteus, enterococcus (3) Neurogenic bladder: Status: Acute Problem details: Chronic indwelling catheter at this point (4) Left pelvic adnexal fluid collection: Status: Acute Problem details: We will follow-up in 1 week (5) Post-traumatic quadriplegia: Status: Acute (6) Chronic indwelling Dumont catheter: Status: Acute (7) Nausea: Status: Acute Problem details: Improved Reason for Visit Reason for Visit: Reason For Visit: [facility] Hospital Course Hospital Course: Rosanne is a 44-year-old white female who presented to the emergency department with evidence of sepsis. She had previously in March had a bladder rupture and multiple intra-abdominal abscesses that were drained by interventional radiology. While at the hospital here she received pressors, broad-spectrum antibiotics, urine culture. Decubitus was also noted on her back, which was debrided. She ultimately grew MRSA from her back. Blood cultures were negative. Urine culture demonstrated Proteus, enterococcus, Morganella. As catheter is required to stay in currently, she will finish up 10 days of ampicillin and 10 days of Bactrim as an outpatient and have follow-up CT scan of her abdomen and pelvis with contrast in approximately 1 week. She will follow-up with urology as well as primary care provider [facility]. While here the hospital she received a CT of her abdomen and pelvis which demonstrated some pelvic fluid collections. These are likely residual from her previous bladder rupture and I doubt these represent ongoing active abscess, but these will be followed up with repeat CT scan. At time of discharge she had been afebrile for quite some time. She was able to tolerate a normal diet. She had had some abdominal discomfort on admission which had lessened significantly through her hospital stay. Physical Exam Narrative: EXAM NARRATIVE: General exam no apparent distress Cardiovascular regular in rhythm Lungs clear Abdomen is soft, positive bowel sounds Extremities no cyanosis clubbing or edema, atrophy noted Urinary Catheter Management^: Dumont: Cath Placed During This Visit: yes Urethral Indwelling: Yes Reason for Continuing Indwelling Catheter: Chronic Indwelling Urinary Catheter on Admission Urinary Catheter Date of Insertion: 12/01/19 Urinary Catheter Time of Insertion: 16:42 Discharge Data Data Completed and Pending: Completed Studies During Hospitalization Category Date Time Status CT abdomen pelvis w con* [id number] Urge nt Cat Scan 12/01/19 14:[address] abdomen pelvis w con* [id number] Urge nt Cat Scan 12/04/19 09:05 Completed XR chest 1V [place]ison ble [id number] Routine Exams 12/05/19 09:56 Completed US liver 19500 Ro utine Ultrasound 12/03/19 10:20 Completed US pelvic complet e* [id number] Urgent Ultrasound 12/01/19 16:13 Completed Pending at discharge Category Date Time Status Vancomycin Trough Timed Lab 12/08/19 03:00 Ordered Labs from last 24 hours 12/07/19 03:38 Vancomycin Trough 14.6 Vitals: Last Vital Signs Temp 99.0 F 12/07/19 10:49 Pulse 76 12/07/19 11:13 Resp 16 12/07/19 11:13 BP 103/63 12/07/19 10:49 Pulse Ox 95 12/07/19 11:13 Discharge Plan Discharge Patient Disposition: Xfer SNF Condition: Stable Prescriptions: New hydrocodone-acetaminophen 5-325 mg Tablet 1 tab PO Q6H PRN (Reason: Moderate To Severe Pain) Qty: 30 RF: 0 docusate sodium 100 mg Capsule 100 mg PO BID Qty: 60 RF: 0 lactulose 20 gram/30 mL Solution 10 g PO DAILY Qty: 300 RF: 0 sennosides [Senna Lax] 8.6 mg Tablet 17.2 mg PO BEDTIME Qty: 30 RF: 0 polyethylene glycol 3350 [Miralax] 17 gram Powder In Packet 17 g PO DAILY Qty: 30 RF: 0 ampicillin 500 mg capsule 500 mg PO QID Qty: 40 RF: 0 sulfamethoxazole-trimethoprim [Bactrim DS] 800-160 mg tablet 1 tab PO BID 10 Days Qty: 20 RF: 0 Discontinued baclofen 10 mg Tablet 10 mg PO TID RF: 0 Discharge Orders: Discharge Order (Routine); Ordered 12/07/19 Ordered By: Sedrick Cruz Other Ambulatory Orders: CT abdomen pelvis w con* [id number] (Routine) Timeframe: 1 Week Facility: [facility] - Location: [facility] Ordered By: Sedrick Cruz Referrals: [id number] [Other] [facility] [Outside] [facility] [Outside] - 1-3 days (Follow-up with primary care provider at [facility] 3 to 5 days. CBC, BMP 3 days) Hilton Culp MD [Physician] - 7-10 days (Follow-up with Dr. Culp next week. Repeat CT abdomen and pelvis with contrast at that time for follow-up of abdominal fluid collections. Report to Dr. Culp.) Discharge Diet: Regular Discharge Activity: Resume usual activity Activity Restrictions/Additional Instructions: Please continue wound care instructions per Dr. Merino currently Arrange follow-up with wound care at nursing facility, or wound care clinic at hospital Leave urinary catheter in Discharge Attestations Time Spent in Discharge Care*: greater than 30 min Quality Metrics Clinical Quality Measures During this hospital stay, did patient experience: None Coding Level of Care Code Acute Budget Manager for g Fwd Diagnoses Sepsis A41.9 Sepsis acute organ dysfunction status: unspecified Sepsis type: sepsis due to unspecified organism Pyelonephritis N12 Neurogenic bladder N31.9 Left pelvic adnexal fluid collection R68.89 Post-traumatic quadriplegia G82.50 Chronic indwelling Dumont catheter Z96.0 Nausea R11.0
--- NOTE | 2019-12-07 14:54 | PC.NURSE ---
Prn note Report called to [facility], Sydnie PATTON. This staff member spoke at length to patient's who was upset at patient being transferred to [facility]. Patient is adamant that she be transferred to help her heal and get well. He was belligerent with staff stating he wanted her to come home. Patient is alert and oriented and states she is going to [facility]. field services director spoke at length to spouse as well. Transfer to continue at this time.
[2019-12-07] MEDS: silvasorb gel 44.4 mL 1 APPLIC TOPICAL (15:31)
== END 2019-12-07 16:32 | disposition skilled nursing facility (03) | DRG 871 ==
LOC: ER 17:36 → MEDSURG 21:02 → ICU 23:59 → MEDSURG 12-04 10:57
PROVIDERS: Family Medicine; Admitting Provider Student in an Organized Health Care Education/Training Program; Emergency Provider Emergency Medicine; Family Provider Psychiatry & Neurology Neurology; Visit Provider Internal Medicine
DX: A41.81 Sepsis due to Enterococcus (principal); G82.50 Quadriplegia, unspecified; N12 Tubulo-interstitial nephritis, not specified as acute or chronic; A41.89 Other specified sepsis; N31.9 Neuromuscular dysfunction of bladder, unspecified; Z96.0 Presence of urogenital implants; Z79.899 Other long term (current) drug therapy; K59.00 Constipation, unspecified; A41.02 Sepsis due to Methicillin resistant Staphylococcus aureus
CPT/HCPCS: 12345; 36415; 51702; 71045; 74177; 76705; 76856; 80048; 80053; 80202; 81001; 83540; 83550; 83605; 83690; 84145; 84443; 84702; 85025; 87040; 87070; 87077; 87086; 87186; 87641; 87804; 94640; 96365; 96366; 96372; 96375; 99284; C1751; J0696; J1170; J1644; J2270; J2405; J2543; J2550; J3370; J7030; J7050; Q9967

== ENCOUNTER 2019-12-18 17:39 | Emergency (ER) | payer MEDICARE, SELFPAY ==
[2019-12-18 17:41] VITALS: BP 114/80; PULSE 107; RESP 16; TEMP 37.7; O2SAT 96; BMI 20.5
--- NOTE | 2019-12-18 18:15 | ED_ITS ---
HPI - Nausea/Vomiting/Diarrhea General: Chief complaint: Nausea/Vomiting/Diarrhea Stated complaint: FEVER Time Seen by Provider: 12/18/19 18:15 History of Present Illness: HPI Narrative: Patient is a 44-year-old female who comes to the ED with nausea and vomiting. Patient is an incomplete quadriplegic and has a past medical history of a recent hospitalization for pyelonephritis. She has a Dumont catheter. Patient's states that the nausea and vomiting started this morning when she woke up denies any fever or chills. She does have generalized body aches and abdominal pain in the right upper quadrant. She rates the abdominal pain a 10 out of 10. Associated nausea: Yes Associated symtoms: Reports nausea; Denies change in vision, chest pain, dysuria, fatigue, headache(s) or palpitations Review of Systems Const: Denies: fever, chills or fatigue Eyes: Denies: change in vision or eye discomfort ENMT: Denies: throat pain, painful swallowing, nasal discharge or nasal congestion Card: Denies: chest pain, palpitations, edema, swelling of feet/ankles, shortness of breath on exertion or shortness of breath when lying down Resp: Denies: shortness of breath, productive cough or non-productive cough GI: Reports: abdominal pain, nausea and vomiting; Denies: diarrhea, constipation or blood in stool : Denies: flank pain, painful urination or blood in urine Musc: Denies: neck pain, back pain or extremity swelling Skin/Breast: Denies: rash or new lesion Neuro: Denies: headache, numbness in extremities or weakness in extremities PFS ED PFSH: Medical History Chronic indwelling Dumont catheter Neurogenic bladder Chronic indwelling catheter at this point Post-traumatic quadriplegia Recurrent sepsis due to urinary tract infection Surgical History H/O cystoscopy H/O Spinal surgery History of hysterectomy Family History Other Hypertension Social History Smoking and tobacco status: never smoked Alcohol intake: never Household members: spouse Housing: House Physical Exam Narrative: EXAM NARRATIVE: Patient is a 44-year-old female that is an incomplete quadriplegic. She has no movement in her lower extremities and very minimal movement in her upper extremities. Const: COMMON NORMALS: oriented x3 HENMT: COMMON NORMALS: normocephalic HEAD & SCALP: normocephalic MOUTH: oral and palatal mucosa normal THROAT: posterior oropharynx normal and uvula midline Neck/C-Spine: COMMON NORMALS: supple GENERAL: Yes normal visual inspection Resp: COMMON NORMALS: normal respiratory effort, no retractions, no use of accessory muscles and clear to auscultation bilaterally AUSCULTATION: clear to auscultation bilaterally Cardio: COMMON NORMALS: regular rate, regular rhythm, S1 normal heart sound, S2 normal heart sound, no gallops, no clicks, no murmurs and peripheral pulses 2+ throughout RATE: regular rate RHYTHM: regular rhythm HEART SOUNDS: S1 normal and S2 normal PERIPHERAL PULSES: pulses 2+ throughout GI: COMMON NORMALS: normal to inspection, nondistended, normoactive bowel sounds, soft to palpation, non-tender and no masses PALPATION: Yes soft : COMMON NORMALS: Yes no CVA tenderness BLADDER/KIDNEY EXAM: Yes no CVA tenderness Back/Pelvis: COMMON NORMALS: no CVA tenderness Extremity: NARRATIVE EXTREMITY EXAM: incomplete quadraplegic Neuro: COMMON NORMALS: oriented x3 and moves all extremities Skin: COMMON NORMALS: no rashes or lesions noted GENERAL SKIN EXAM: no rashes or lesions noted and dry skin Course Vital Signs: Vital signs: Vital Signs Temperature 99.8 F H 12/18/19 17:41 Pulse Rate 95 12/18/19 22:29 Respiratory Rate 16 12/18/19 22:29 Blood Pressure 104/64 12/18/19 22:29 Pulse Oximetry 97 12/18/19 22:29 MDM - Nausea/Vomiting/Diarrhea Lab Data: Attestation: I reviewed the patient's lab results. Labs: Lab Results 12/18/19 12/18/19 12/18/19 Range/Units 18:27 18:27 18:27 WBC 10.0 (4.0-10.0) 10^3/ uL RBC 4.20 (4.1-5.3) 10^6/u L Hgb 11.7 (11.5-15.3) g/dL Hct 38.2 (37.0-47.0) % MCV 91.0 (81-99) fL MCH 27.9 L (28.0-34.0) pg MCHC 30.6 (30.0-36.0) g/dL RDW 14.8 (12.1-15.1) % Plt Count 423 H (130-400) 10^3/c mm MPV 9.6 (7.4-10.4) fL Neut % (Auto) 93.2 % Lymph % (Auto) 3.1 % [place] % (Auto) 2.7 % Eos % (Auto) 0.5 % Baso % (Auto) 0.2 % Neut # (Auto) 9.3 H (1.8-7.7) 10^3/u L Lymph # (Auto) 0.3 L (0.8-4.8) 10^3/u L [place] # (Auto) 0.3 (0.2-0.9) 10^3/u L Eos # (Auto) 0.1 (0.0-0.8) 10^3/u L Baso # (Auto) 0.0 (0.0-0.1) 10^3/u L Nucleated RBC % (a uto) 0 % Nucleated RBCs # 0.0 /100WBC Sodium 134 L (136-145) mmol/L Potassium 5.0 (3.5-5.1) mmol/L Chloride 97 L (98-107) mmol/L Carbon Dioxide 22 (22-29) mmol/L Anion Gap 20.0 H (5-19) BUN 23 H (6-20) mg/dL Creatinine 0.9 (0.5-0.9) mg/dL GFR Calculation 68.0 L (90-130) mL/min Glucose 107 (65-115) mg/dL Calcium 9.9 (8.5-10.5) mg/dL Total Bilirubin 0.2 (0.15-1.2) mg/dL AST 18 (0-32) U/L ALT 15 (0-33) U/L Alkaline Phosphata se 123 H (35-105) IU/L Total Protein 8.7 (6.6-8.7) g/dL Albumin 4.2 (3.5-5.2) g/dL Globulin 4.5 (1.3-4.6) g/dL Lipase 26 (13-60) U/L HCG, Qual Negative (Negative) Urine Color (Yellow) Urine Appearance (CLEAR) Urine pH (5-7) Ur Specific Gravit y (1.005-1.030) Urine Protein (Negative) Urine Glucose (UA) (Normal) Urine Ketones (Negative) Urine Blood (Negative) Urine Nitrate (Negative) Urine Bilirubin (NEGATIVE) Urine Urobilinogen (Negative) mg/dL Ur Leukocyte Maggi ase (Negative) Urine RBC (0-2) /hpf Urine WBC (0-5) /hpf Ur Squamous Epith Cells (0-5) Ur Transition Epit h Cell /hpf Urine Bacteria (NONE) Urine Mucus Influenza Type A A g (Negative) POC Influenza B Ag (Negative) 12/18/19 12/18/19 Range/Units 18:30 21:00 WBC (4.0-10.0) 10^3/ uL RBC (4.1-5.3) 10^6/u L Hgb (11.5-15.3) g/dL Hct (37.0-47.0) % MCV (81-99) fL MCH (28.0-34.0) pg MCHC (30.0-36.0) g/dL RDW (12.1-15.1) % Plt Count (130-400) 10^3/c mm MPV (7.4-10.4) fL Neut % (Auto) % Lymph % (Auto) % [place] % (Auto) % Eos % (Auto) % Baso % (Auto) % Neut # (Auto) (1.8-7.7) 10^3/u L Lymph # (Auto) (0.8-4.8) 10^3/u L [place] # (Auto) (0.2-0.9) 10^3/u L Eos # (Auto) (0.0-0.8) 10^3/u L Baso # (Auto) (0.0-0.1) 10^3/u L Nucleated RBC % (a uto) % Nucleated RBCs # /100WBC Sodium (136-145) mmol/L Potassium (3.5-5.1) mmol/L Chloride (98-107) mmol/L Carbon Dioxide (22-29) mmol/L Anion Gap (5-19) BUN (6-20) mg/dL Creatinine (0.5-0.9) mg/dL GFR Calculation (90-130) mL/min Glucose (65-115) mg/dL Calcium (8.5-10.5) mg/dL Total Bilirubin (0.15-1.2) mg/dL AST (0-32) U/L ALT (0-33) U/L Alkaline Phosphata se (35-105) IU/L Total Protein (6.6-8.7) g/dL Albumin (3.5-5.2) g/dL Globulin (1.3-4.6) g/dL Lipase (13-60) U/L HCG, Qual (Negative) Urine Color Yellow (Yellow) Urine Appearance Sl hazy (CLEAR) Urine pH 6 (5-7) Ur Specific Gravit y 1.015 (1.005-1.030) Urine Protein Neg (Negative) Urine Glucose (UA) Norm (Normal) Urine Ketones Negative (Negative) Urine Blood 2+ H (Negative) Urine Nitrate Negative (Negative) Urine Bilirubin Neg (NEGATIVE) Urine Urobilinogen Norm (Negative) mg/dL Ur Leukocyte Maggi ase 1+ H (Negative) Urine RBC 5-10 H (0-2) /hpf Urine WBC 40-55 H (0-5) /hpf Ur Squamous Epith Cells 15-25 H (0-5) Ur Transition Epit h Cell 0-4 /hpf Urine Bacteria 2+ H (NONE) Urine Mucus 1+ Influenza Type A A g Negative (Negative) POC Influenza B Ag Negative (Negative) Imaging Data^: CT Abd/Pel: Attestation: I personally reviewed and interpreted this imaging study as follows: Radiologist's impression: [address] [address] [address] Scan Report Signed Patient: Rosanne Morales Unit #: [id number] : 1975 ct#:[id number] Age/Sex: 44 / F ADM Date: 12/18/19 Loc: ER Room/Bed: Attending Dr: Ordering Provider/Ordering MD: Abrahan Ruiz Date of Service: 12/18/19 Procedure(s): CT abdomen pelvis w con* [id number] Accession Number(s): [id number] Report Number: [id number] PROCEDURE INFORMATION: Exam: CT Abdomen And Pelvis With Contrast Exam date and time: 12/18/2019 6:56 PM Age: 44 years old Clinical indication: Abdominal pain; Epigastric; Prior surgery; Surgery date: 6+ months; Surgery type: Bladder, hystorectomy; Patient HX: PT is a quadrapalegic, unable to raise arms above head. ; Additional info: Ruq pain with n/v TECHNIQUE: Imaging protocol: Computed tomography of the abdomen and pelvis with intravenous contrast. Axial, coronal and sagittal reformatted images were created and reviewed. Total DLP: 731.74 mGy-cm Radiation optimization: All CT scans at this facility use at least one of these dose optimization techniques: automated exposure control; mA and/or kV adjustment per patient size (includes targeted exams where dose is matched to clinical indication); or iterative reconstruction. Contrast material: OMNIPAQUE 300; Contrast volume: 95 ml; Contrast route: IV; COMPARISON: CT abdomen pelvis w con* [id number] 12/04/2019 11:27 AM FINDINGS: Lungs: Minimal linear stranding and groundglass at the lung bases, likely due to atelectasis and/or scarring. Pleural space: Resolved pleural effusions. Liver: Unremarkable. Gallbladder and bile ducts: No radiodense gallstones. No biliary ductal dilatation. Pancreas: Unremarkable. Spleen: Unremarkable. Adrenals: Unchanged 1.6 cm low-density left adrenal nodule. Kidneys and ureters: Bilateral renal cortical scarring and/or lobulation. Mild bilateral urothelial thickening and enhancement, somewhat improved. No radiodense calculi. No hydronephrosis. Stomach and bowel: Moderate amount of retained stool in the colon. No obstruction. No bowel wall thickening. No pneumatosis. Appendix: Normal. Intraperitoneal space: Resolved free pelvic fluid. No organized collection. No free air. Vasculature: Mild atherosclerotic disease. No aneurysm or dissection. Lymph nodes: No pathologically enlarged lymph nodes. Bladder: Dumont catheter in the urinary bladder. Mild circumferential urinary bladder wall thickening, possibly secondary to underdistention. Reproductive: Status post hysterectomy. 4 x 3.5 cm right adnexal cystic lesion, similar to prior. Bones/joints: No acute osseous abnormality. Soft tissues: Unremarkable. CT/CT abdomen pelvis w con* [id number] IMPRESSION: 1. Mild circumferential urinary bladder wall thickening and bilateral urothelial thickening/enhancement, somewhat improved. Correlate with urinalysis to exclude urinary tract infection. 2. 4 x 3.5 cm right adnexal cystic lesion, similar to prior. 3. Resolved pleural effusions and free pelvic fluid. 4. Additional findings, as above. Radiation Dose CTDIVOL = (mGy): DLP = 731.74 (mGy-cm) Dictated By: Raulito Wood MD Signed By: Raulito Wood MD Signed Date/Time: 12/18/19 2030 Discharge Plan Discharge Patient Disposition: Home, Self-Care Clinical Impression: Gastroenteritis Nausea & vomiting Qualifiers: Vomiting type: unspecified Vomiting Intractability: non-intractable Qualified Code(s): R11.2 - Nausea with vomiting, unspecified Condition: Stable Prescriptions: New Zofran 4 mg tablet 4 mg PO Q8H Qty: 15 RF: 0 No Action Senna Lax 8.6 mg Tablet 17.2 mg PO BEDTIME Qty: 30 RF: 0 Miralax 17 gram Powder In Packet 17 g PO DAILY Qty: 30 RF: 0 hydrocodone-acetaminophen 5-325 mg Tablet 1 tab PO Q6H PRN (Reason: Moderate To Severe Pain) Qty: 30 RF: 0 docusate sodium 100 mg Capsule 100 mg PO BID Qty: 60 RF: 0 lactulose 20 gram/30 mL Solution 10 g PO DAILY Qty: 300 RF: 0 ampicillin 500 mg capsule 500 mg PO QID Qty: 40 RF: 0 Discharge Orders: Discharge Order (Routine); Ordered 12/18/19 Ordered By: Abrahan Ruiz Referrals: [id number] [Other] Discharge Diet: Advance as tolerated Discharge Activity: Resume usual activity Patient Instructions: Gastroenteritis (ED), Acute Nausea and Vomiting (ED) Activity Restrictions/Additional Instructions: Follow-up with your PCP in 5-7 days for reevaluation. Take Zofran as prescribed for nausea. For the next 24 hours just have a liquid diet. Then after 24 hours start introducing solid foods again. Make sure you're drinking plenty of fluids and staying hydrated. He can take ibuprofen or Tylenol for fevers. Continue taking all home meds. Discharge Date/Time: 12/18/19 22:29 Coding Level of Care Code ED Adoption Agent for Chg Fwd Exam Comprehensive
--- NOTE | 2019-12-18 18:35 | CTR_ITS ---
PROCEDURE INFORMATION: Exam: CT Abdomen And Pelvis With Contrast Exam date and time: 12/18/2019 6:56 PM Age: 44 years old Clinical indication: Abdominal pain; Epigastric; Prior surgery; Surgery date: 6+ months; Surgery type: Bladder, hystorectomy; Patient HX: PT is a quadrapalegic, unable to raise arms above head. ; Additional info: Ruq pain with n/v TECHNIQUE: Imaging protocol: Computed tomography of the abdomen and pelvis with intravenous contrast. Axial, coronal and sagittal reformatted images were created and reviewed. Total DLP: 731.74 mGy-cm Radiation optimization: All CT scans at this facility use at least one of these dose optimization techniques: automated exposure control; mA and/or kV adjustment per patient size (includes targeted exams where dose is matched to clinical indication); or iterative reconstruction. Contrast material: OMNIPAQUE 300; Contrast volume: 95 ml; Contrast route: IV; COMPARISON: CT abdomen pelvis w con* [id number] 12/04/2019 11:27 AM FINDINGS: Lungs: Minimal linear stranding and groundglass at the lung bases, likely due to atelectasis and/or scarring. Pleural space: Resolved pleural effusions. Liver: Unremarkable. Gallbladder and bile ducts: No radiodense gallstones. No biliary ductal dilatation. Pancreas: Unremarkable. Spleen: Unremarkable. Adrenals: Unchanged 1.6 cm low-density left adrenal nodule. Kidneys and ureters: Bilateral renal cortical scarring and/or lobulation. Mild bilateral urothelial thickening and enhancement, somewhat improved. No radiodense calculi. No hydronephrosis. Stomach and bowel: Moderate amount of retained stool in the colon. No obstruction. No bowel wall thickening. No pneumatosis. Appendix: Normal. Intraperitoneal space: Resolved free pelvic fluid. No organized collection. No free air. Vasculature: Mild atherosclerotic disease. No aneurysm or dissection. Lymph nodes: No pathologically enlarged lymph nodes. Bladder: Dumont catheter in the urinary bladder. Mild circumferential urinary bladder wall thickening, possibly secondary to underdistention. Reproductive: Status post hysterectomy. 4 x 3.5 cm right adnexal cystic lesion, similar to prior. Bones/joints: No acute osseous abnormality. Soft tissues: Unremarkable. CT/CT abdomen pelvis w con* [id number] IMPRESSION: 1. Mild circumferential urinary bladder wall thickening and bilateral urothelial thickening/enhancement, somewhat improved. Correlate with urinalysis to exclude urinary tract infection. 2. 4 x 3.5 cm right adnexal cystic lesion, similar to prior. 3. Resolved pleural effusions and free pelvic fluid. 4. Additional findings, as above. Radiation Dose CTDIVOL = (mGy): DLP = 731.74 (mGy-cm)
[2019-12-18] MEDS: sodium chloride 0.9% 1,000 ML 999 ML IV (18:42)
[2019-12-18] MEDS: ondansetron 2 mg/ML SDV 2 mL 4 MG IVP (18:43)
[2019-12-18 18:45] LABS: Urine Appearance SL Hazy (CLEAR); Urine Color Yellow (Yellow)
[2019-12-18 18:46] VITALS: RESP 16; O2SAT 96
[2019-12-18 18:46] LABS: Bilirubin Urine Neg (NEGATIVE); Blood Urine 2+ (Negative); Glucose Urine UA Norm (Normal); Ketones Urine Negative (Negative); Leukocyte Esterase Urine 1+ (Negative); Nitrate Urine Negative (Negative); Protein Urine Neg (Negative); Specific Gravity, Urine 1.015 (1.005-1.030); Urobilinogen Urine Norm (Negative); pH Urine 6 (5-7)
[2019-12-18 18:46] LABS: Basophils % 0.2 %; Eosinophils # 0.1 10^3/uL (0.0-0.8); Eosinophils % 0.5 %; Hematocrit 38.2 % (37.0-47.0); Hemoglobin 11.7 g/dL (11.5-15.3); Lymphocytes # 0.3 10^3/uL (0.8-4.8); Lymphocytes % 3.1 %; Mean Corpuscular HGB Conc 30.6 g/dL (30.0-36.0); Mean Corpuscular Hemoglobin 27.9 pg (28.0-34.0); Mean Platelet Volume 9.6 fL (7.4-10.4); Monocytes # 0.3 10^3/uL (0.2-0.9); Monocytes % 2.7 %; Neutrophils # 9.3 10^3/uL (1.8-7.7); Neutrophils % 93.2 %; Nucleated Red Blood Cells % 0 %; Platelet Count 423 10^3/cmm (130-400); Red Cell Distribution Width 14.8 % (12.1-15.1)
[2019-12-18] MEDS: morphine 4 mg/mL SDV 1 mL IVP (18:46)
[2019-12-18 18:54] LABS: WBC Urine 40-55 /hpf (0-5)
[2019-12-18 18:55] LABS: Bacteria Urine 2+; Mucus Urine 1+; Squamous Epithelial Cell Urine 15-25 (0-5); Transitional Epi Cells Urine 0-4 /hpf
[2019-12-18 18:56] LABS: Add Urine Culture? No
[2019-12-18 18:56] LABS: HCG, Serum Qual Negative (Negative)
[2019-12-18 19:01] LABS: Alanine Aminotransferase 15 U/L (0-33); Albumin Level 4.2 g/dL (3.5-5.2); Alkaline Phosphatase 123 IU/L (35-105); Aspartate Amino Transferase 18 U/L (0-32); Blood Urea Nitrogen 23 mg/dL (6-20); Calcium 9.9 mg/dL (8.5-10.5); Carbon Dioxide 22 mmol/L (22-29); Chloride 97 mmol/L (98-107); Globulin 4.5 g/dL (1.3-4.6); Glucose 107 mg/dL (65-115); Lipase 26 U/L (13-60); Sodium 134 mmol/L (136-145); Total Bilirubin 0.2 mg/dL (0.15-1.2); Total Protein 8.7 g/dL (6.6-8.7)
[2019-12-18] MEDS: iohexol 300 mg/mL 100 mL Btl IV (19:44)
[2019-12-18 20:04] VITALS: BP 105/73; PULSE 95; RESP 16; O2SAT 96
[2019-12-18 21:44] LABS: Influenza A by IFA Negative (Negative); Influenza B by IFA Negative (Negative)
[2019-12-18 22:29] VITALS: BP 104/64; PULSE 95; RESP 16; O2SAT 97
== END 2019-12-18 22:29 | disposition home or self-care (01) ==
PROVIDERS: Emergency Provider Physician Assistant; Family Provider Psychiatry & Neurology Neurology
DX: K52.9 Noninfective gastroenteritis and colitis, unspecified (principal); R11.2 Nausea with vomiting, unspecified; G82.50 Quadriplegia, unspecified
CPT/HCPCS: 74177; 80053; 81001; 83690; 84703; 85025; 87040; 87804; 96361; 96374; 96375; 99282; 99283; A9270; J2270; J2405; J7030; Q9967

== ENCOUNTER 2020-01-04 11:58 | Outpatient (CLI) | payer MEDICARE, SELFPAY ==
[2020-01-04 12:36] LABS: Urine Appearance Cloudy (CLEAR); Urine Color Yellow (Yellow); pH Urine 5 (5-7)
[2020-01-04 12:37] LABS: Add Urine Microscopic? YES; Bilirubin Urine Neg (NEGATIVE); Blood Urine 2+ (Negative); Glucose Urine UA Norm (Normal); Ketones Urine Negative (Negative); Leukocyte Esterase Urine 2+ (Negative); Nitrate Urine Negative (Negative); Protein Urine Neg (Negative); Urobilinogen Urine Norm (Negative)
[2020-01-04 12:41] LABS: Add Urine Culture? Yes; Bacteria Urine 4+; RBC Urine 0-4 /hpf (0-2); Squamous Epithelial Cell Urine 0-4 (0-5); WBC Urine TOO NUMEROUS TO CNT /hpf (0-5)
== END 2020-01-04 11:59 | disposition home or self-care (01) ==
LOC: LAB 11:59
PROVIDERS: Visit Provider Family Medicine
DX: N12 Tubulo-interstitial nephritis, not specified as acute or chronic (principal)
CPT/HCPCS: 36415; 81001; 87077; 87086; 87186

== ENCOUNTER 2020-01-05 22:32 | Inpatient (IN) | payer MEDICARE, SELFPAY ==
--- NOTE | 2020-01-05 22:35 | ED_ITS ---
Entered by Neda Amezquita, acting as scribe for Liliana Anderson MD HPI - Abdominal Pain General: Chief Complaint: Abdominal Pain Stated Complaint: R ABD PAIN Time Seen by Provider: 01/05/20 22:34 Source: patient and EMS Mode of arrival: EMS History of Present Illness: HPI narrative: 44 y/o female presents to the ED with complaint of abd pain. Pt states she has constant RLQ pain that gets worse with movement, breathing, crying, etc. 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 EMS reports the nurse was there when they arrived and told them she had had dark urine earlier this evening. Pt has had 2 normal BMs today. MD elicited complaint: abdominal pain Onset (ago): hour(s) Pain Consistency: constant Associated Symptoms: Reports nausea; Denies chills and fever(s) Review of Systems Const: Denies: fever, chills, body aches or change in appetite Eyes: Denies: blurry vision or eye discomfort ENMT: Denies: throat pain or dental pain Card: Denies: chest pain Resp: Denies: shortness of breath GI: Reports: abdominal pain and nausea : Reports: other (dark urine) Musc: Denies: neck pain or back pain Skin/Breast: Denies: rash Neuro: Denies: headache Psych: Denies: depression Raul/Lymph: Denies: easy bruising All/Imm: Denies: hives PFS ED PFSH: Social History Smoking and tobacco status: never smoked Alcohol intake: never Household members: spouse Housing: House Physical Exam Const: COMMON NORMALS: oriented x3 NUTRITIONAL APPEARANCE: obese HENMT: COMMON NORMALS: normocephalic and head/scalp atraumatic HEAD & SCALP: normocephalic and atraumatic Eye: COMMON NORMALS: PERRL and EOMs intact bilaterally PUPIL: Yes PERRL Neck/C-Spine: COMMON NORMALS: full ROM and supple Chest: COMMONS NORMALS: inspection of chest normal and palpation of chest normal Resp: COMMON NORMALS: normal respiratory effort, no retractions, no use of accessory muscles and clear to auscultation bilaterally AUSCULTATION: clear to auscultation bilaterally Cardio: COMMON NORMALS: regular rate, regular rhythm and no murmurs RATE: regular rate RHYTHM: regular rhythm GI: INSPECTION: Yes abdominal distension PALPATION: Yes tender Details: RLQ and Yes guarding Extremity: COMMON NORMALS: normal to inspection and full ROM Neuro: COMMON NORMALS: oriented x3, moves all extremities and no focal motor deficits Psych: COMMON NORMALS: mental status grossly normal, thought process normal and cooperative THOUGHT PROCESS: normal thought process Course Vital Signs: Vital signs: Vital Signs Temperature 99.3 F 01/05/20 22:50 Pulse Rate 76 01/05/20 22:50 Respiratory Rate 16 01/05/20 22:50 Blood Pressure 114/81 01/05/20 22:50 Pulse Oximetry 98 01/05/20 22:50 MDM - Abdominal Pain MDM Narrative: Medical decision making narrative: Rosanne presents here with abdominal pain and was found to have perforated viscus. Patient given IV fluids here along with antibiotics. I spoke to Dr. Salgado and he is coming in to take patient to the OR emergently. Patient's vital signs of been stable while in the ER. Lab Data: Labs: Lab Results 01/05/20 01/05/20 01/05/20 Range/Units 23:00 23:00 23:00 WBC 16.7 H (4.0-10.0) 10^3/ uL RBC 3.91 L (4.1-5.3) 10^6/u L Hgb 11.2 L (11.5-15.3) g/dL Hct 36.7 L (37.0-47.0) % MCV 93.9 (81-99) fL MCH 28.6 (28.0-34.0) pg MCHC 30.5 (30.0-36.0) g/dL RDW 15.2 H (12.1-15.1) % Plt Count 385 (130-400) 10^3/c mm MPV 9.4 (7.4-10.4) fL Neut % (Auto) 88.7 % Lymph % (Auto) 5.3 % [place] % (Auto) 5.1 % Eos % (Auto) 0.3 % Baso % (Auto) 0.2 % Neut # (Auto) 14.8 H (1.8-7.7) 10^3/u L Lymph # (Auto) 0.9 (0.8-4.8) 10^3/u L [place] # (Auto) 0.9 (0.2-0.9) 10^3/u L Eos # (Auto) 0.1 (0.0-0.8) 10^3/u L Baso # (Auto) 0.0 (0.0-0.1) 10^3/u L Nucleated RBC % (a uto) 0 % Nucleated RBCs # 0.0 /100WBC Sodium 135 L (136-145) mmol/L Potassium 4.2 (3.5-5.1) mmol/L Chloride 101 (98-107) mmol/L Carbon Dioxide 19 L (22-29) mmol/L Anion Gap 19.2 H (5-19) BUN 22 H (6-20) mg/dL Creatinine 0.8 (0.5-0.9) mg/dL GFR Calculation 77.9 L (90-130) mL/min Glucose 151 H (65-115) mg/dL Calculated Osmolal ity 280 L (285-295) mOsm/k g Lactate 2.4 H (0.5-2.2) mmol/L Calcium 9.4 (8.5-10.5) mg/dL Total Bilirubin 0.2 (0.15-1.2) mg/dL AST 25 (0-32) U/L ALT 22 (0-33) U/L Alkaline Phosphata se 82 (35-105) IU/L Total Protein 7.6 (6.6-8.7) g/dL Albumin 3.7 (3.5-5.2) g/dL Globulin 3.9 (1.3-4.6) g/dL Lipase 17 (13-60) U/L Imaging Data ^: CT Abd/Pel: Radiologist's impression: Patient: Danielle Morales #: [id number] : 1975Acct#:[id number] Age/Sex: 44 / FADM Date: 01/05/20 Loc: ERRoom/Bed: Attending Dr: Ordering Provider/Ordering MD: Liliana Anderson MD Date of Service: 01/05/20 Procedure(s): CT abdomen pelvis w con* [id number] Accession Number(s): [id number] Report Number: [id number]/CT abdomen pelvis w con* [id number] The findings were discussed with Dr. Anderson on 01/06/2020 1:10 AM CDT. Radiation Dose CTDIVOL = (mGy): DLP = 708.96 (mGy-cm) Addendum Dictated By: Todd Morales MD Addendum Signed By: Todd Morales MDSigned Date/Time:01/06/20110 Addendum Cosigned By: PROCEDURE INFORMATION: Exam: CT Abdomen And Pelvis With Contrast Exam date and time: 01/05/2020 12:24 AM Age: 44 years old Clinical indication: Abdominal pain; Generalized; Prior surgery; Surgery date: 6+ months; Surgery type: Bladder repair, hysterectomy; Additional info: Abd pain TECHNIQUE: Imaging protocol: Computed tomography of the abdomen and pelvis with intravenous contrast. Total DLP: 708.96 mGy-cm Radiation optimization: All CT scans at this facility use at least one of these dose optimization techniques: automated exposure control; mA and/or kV adjustment per patient size (includes targeted exams where dose is matched to clinical indication); or iterative reconstruction. Contrast material: OMNI 300; Contrast volume: 95 ml; Contrast route: 22G; COMPARISON: 1. CT abdomen pelvis w con* [id number] 12/18/2019 7:45 PM [address] Report of CT of the abdomen and pelvis 09/26/2018 FINDINGS: Mild patchy atelectasis at bilateral lung bases. The liver, gallbladder, spleen, pancreas, and right adrenal gland are unremarkable. There is a 2.2 cm x 1.1 cm nodule in the left adrenal gland on series 2, image 23 with density 73 Hounsfield units. This is similar to 12/18/2019 and a similar finding is described on report of CT of the abdomen and pelvis performed 09/26/2018. Consider adrenal washout protocol CT on a nonemergent basis for further evaluation. Each kidney is mildly atrophic. Striated nephrogram demonstrated in each kidney. Differential diagnosis includes acute tubular necrosis and pyelonephritis. A normal-appearing appendix is seen in the right lower quadrant. Moderate dilation of the stomach. No dilated bowel loops identified to suggest small bowel obstruction. A normal-appearing appendix is seen in the right lower quadrant. No diverticulitis identified. Large amount of stool in the distal sigmoid colon. Large amount of free intraperitoneal air in the anterior-superior abdomen. Small amount of extraluminal fluid in the left upper quadrant adjacent to the greater curvature of the stomach. Findings are consistent with perforated viscus. It is suspected that the stomach is perforated (coronal series 602 image 30). Dumont catheter is noted in the bladder. Bladder wall thickening is present, possibly related to cystitis, chronic outlet obstruction, or prior surgery. Appearance is similar to prior study. The uterus is not seen, consistent with hysterectomy. There is a 4.4 cm x 3.8 cm cystic mass in the right hemipelvis on series 2, image 80. This may be ovarian in origin. Appearance suggests benign etiology. This finding is similar to 12/18/2019. The abdominal aorta is nonaneurysmal. Visualized bones are unremarkable. CT/CT abdomen pelvis w con* [id number] IMPRESSION: 1. Large amount of free intraperitoneal air, consistent with perforated viscus. It is suspected at the site of perforation is the body of the stomach. 2. Striated nephrogram demonstrated in each kidney. Differential diagnosis includes acute tubular necrosis and pyelonephritis. 3. Left adrenal nodule, similar to 12/18/2019 and a similar finding is described on report of CT of the abdomen and pelvis performed 09/26/2018. Consider adrenal washout protocol CT on a nonemergent basis for further evaluation. 4. Cystic mass in the right hemipelvis, similar to 12/18/2019. 5. Bladder wall thickening is present, possibly related to cystitis, chronic outlet obstruction, or prior surgery. Appearance is similar to prior study. Radiation Dose CTDIVOL = (mGy): DLP = 708.96 (mGy-cm) Critical Care Time Critical Care Time: Critical Care Time: Yes Total Critical Care Time: 36 Attestation: This case had a high probability of a clinically significant, sudden, or life threatening deterioration of this patient's condition which required my full and direct attention, intervention and personal management. Discharge Plan Discharge Patient Disposition: Admitted As Inpatient Clinical Impression: Perforated abdominal viscus Condition: Stable Referrals: [id number] [Other] Cade Castaneda MD [Primary Care Provider] - Coding Level of Care Code ED Director Of Event Management for Chg Fwd Exam Comprehensive The documentation recorded by the scribe, Green,Neda, accurately reflects the service I personally performed and the decisions made by me, Liliana Anderson MD Jan 05, 2020 22:32
--- NOTE | 2020-01-05 22:40 | CTR_ITS ---
PROCEDURE INFORMATION: Exam: CT Abdomen And Pelvis With Contrast Exam date and time: 01/05/2020 12:24 AM Age: 44 years old Clinical indication: Abdominal pain; Generalized; Prior surgery; Surgery date: 6+ months; Surgery type: Bladder repair, hysterectomy; Additional info: Abd pain TECHNIQUE: Imaging protocol: Computed tomography of the abdomen and pelvis with intravenous contrast. Total DLP: 708.96 mGy-cm Radiation optimization: All CT scans at this facility use at least one of these dose optimization techniques: automated exposure control; mA and/or kV adjustment per patient size (includes targeted exams where dose is matched to clinical indication); or iterative reconstruction. Contrast material: OMNI 300; Contrast volume: 95 ml; Contrast route: 22G; COMPARISON: 1. CT abdomen pelvis w con* [id number] 12/18/2019 7:45 PM 2. Report of CT of the abdomen and pelvis 09/26/2018 FINDINGS: Mild patchy atelectasis at bilateral lung bases. The liver, gallbladder, spleen, pancreas, and right adrenal gland are unremarkable. There is a 2.2 cm x 1.1 cm nodule in the left adrenal gland on series 2, image 23 with density 73 Hounsfield units. This is similar to 12/18/2019 and a similar finding is described on report of CT of the abdomen and pelvis performed 09/26/2018. Consider adrenal washout protocol CT on a nonemergent basis for further evaluation. Each kidney is mildly atrophic. Striated nephrogram demonstrated in each kidney. Differential diagnosis includes acute tubular necrosis and pyelonephritis. A normal-appearing appendix is seen in the right lower quadrant. Moderate dilation of the stomach. No dilated bowel loops identified to suggest small bowel obstruction. A normal-appearing appendix is seen in the right lower quadrant. No diverticulitis identified. Large amount of stool in the distal sigmoid colon. Large amount of free intraperitoneal air in the anterior-superior abdomen. Small amount of extraluminal fluid in the left upper quadrant adjacent to the greater curvature of the stomach. Findings are consistent with perforated viscus. It is suspected that the stomach is perforated (coronal series 602 image 30). Dumont catheter is noted in the bladder. Bladder wall thickening is present, possibly related to cystitis, chronic outlet obstruction, or prior surgery. Appearance is similar to prior study. The uterus is not seen, consistent with hysterectomy. There is a 4.4 cm x 3.8 cm cystic mass in the right hemipelvis on series 2, image 80. This may be ovarian in origin. Appearance suggests benign etiology. This finding is similar to 12/18/2019. The abdominal aorta is nonaneurysmal. Visualized bones are unremarkable. CT/CT abdomen pelvis w con* [id number] IMPRESSION: 1. Large amount of free intraperitoneal air, consistent with perforated viscus. It is suspected at the site of perforation is the body of the stomach. 2. Striated nephrogram demonstrated in each kidney. Differential diagnosis includes acute tubular necrosis and pyelonephritis. 3. Left adrenal nodule, similar to 12/18/2019 and a similar finding is described on report of CT of the abdomen and pelvis performed 09/26/2018. Consider adrenal washout protocol CT on a nonemergent basis for further evaluation. 4. Cystic mass in the right hemipelvis, similar to 12/18/2019. 5. Bladder wall thickening is present, possibly related to cystitis, chronic outlet obstruction, or prior surgery. Appearance is similar to prior study. Radiation Dose CTDIVOL = (mGy): DLP = 708.96 (mGy-cm)
[2020-01-05 22:50] VITALS: BP 114/81; PULSE 76; RESP 16; TEMP 37.4; O2SAT 98; BMI 16.8
[2020-01-05 23:09] LABS: Basophils % 0.2 %; Eosinophils # 0.1 10^3/uL (0.0-0.8); Eosinophils % 0.3 %; Hematocrit 36.7 % (37.0-47.0); Hemoglobin 11.2 g/dL (11.5-15.3); Lymphocytes # 0.9 10^3/uL (0.8-4.8); Lymphocytes % 5.3 %; Mean Corpuscular HGB Conc 30.5 g/dL (30.0-36.0); Mean Corpuscular Hemoglobin 28.6 pg (28.0-34.0); Mean Corpuscular Volume 93.9 fL (81-99); Mean Platelet Volume 9.4 fL (7.4-10.4); Monocytes # 0.9 10^3/uL (0.2-0.9); Monocytes % 5.1 %; Neutrophils # 14.8 10^3/uL (1.8-7.7); Neutrophils % 88.7 %; Nucleated Red Blood Cells % 0 %; Platelet Count 385 10^3/cmm (130-400); Red Blood Count 3.91 10^6/uL (4.1-5.3); Red Cell Distribution Width 15.2 % (12.1-15.1); White Blood Count 16.7 10^3/uL (4.0-10.0)
[2020-01-05 23:31] LABS: Lactate (Lactic Acid level) 2.4 mmol/L (0.5-2.2)
[2020-01-05 23:32] LABS: Alanine Aminotransferase 22 U/L (0-33); Albumin Level 3.7 g/dL (3.5-5.2); Alkaline Phosphatase 82 IU/L (35-105); Anion Gap 19.2 (5-19); Aspartate Amino Transferase 25 U/L (0-32); Blood Urea Nitrogen 22 mg/dL (6-20); Calcium 9.4 mg/dL (8.5-10.5); Carbon Dioxide 19 mmol/L (22-29); Chloride 101 mmol/L (98-107); Globulin 3.9 g/dL (1.3-4.6); Glomerular Filtration Rate 77.9 mL/min (90-130); Glucose 151 mg/dL (65-115); Lipase 17 U/L (13-60); Osmolality Calculated 280 mOsm/kg (285-295); Potassium 4.2 mmol/L (3.5-5.1); Sodium 135 mmol/L (136-145); Total Bilirubin 0.2 mg/dL (0.15-1.2); Total Protein 7.6 g/dL (6.6-8.7)
[2020-01-05 23:54] VITALS: BP 94/56; PULSE 98; RESP 16; O2SAT 95
[2020-01-06] VITALS (29 sets, daily range): BP systolic 83–134; BP diastolic 50–94; PULSE 65–107; RESP 12–21; TEMP 36.3–38; O2SAT 93–99
[2020-01-06] MEDS: ondansetron 2 mg/ML SDV 2 mL 4 MG IVP ×3 (00:02→23:38)
[2020-01-06] MEDS: sodium chloride 0.9% 1,000 ML 999 ML IV ×3 (00:02→02:28)
[2020-01-06] MEDS: morphine 4 mg/mL SDV 1 mL IVP ×2 (00:02→02:27)
[2020-01-06] MEDS: iohexol 300 mg/mL 100 mL Btl IV (00:26)
[2020-01-06] MEDS: piperacillin-tazobactam 3.375 GM in sodium chloride 0.9% (plus) 100 ML IV ×4 (01:27→22:02)
--- NOTE | 2020-01-06 01:44 | P.HP_ITS ---
Providers/Chief Complaint Admitting Physician: Kartik Carter MD Primary Care Provider: Cade Castaneda MD Chief Complaint: R ABD PAIN History of Present Illness Rosanne Morales is a 44 year old female with history of quadriplegia in bed attached with chronic indwelling Dumont catheter, patient started to encounter abdominal pain yesterday noon and as the pain got worse presented to the emergency department for further work-up and a CT scan of the abdomen and pelvis was done that showed; 1. Large amount of free intraperitoneal air, consistent with perforated viscus. It is suspected at the site of perforation is the body of the stomach. 2. Striated nephrogram demonstrated in each kidney. Differential diagnosis includes acute tubular necrosis and pyelonephritis. 3. Left adrenal nodule, similar to 12/18/2019 and a similar finding is described on report of CT of the abdomen and pelvis performed 09/26/2018. Consider adrenal washout protocol CT on a nonemergent basis for further evaluation. 4. Cystic mass in the right hemipelvis, similar to 12/18/2019. 5. Bladder wall thickening is present, possibly related to cystitis, chronic outlet obstruction, or prior surgery. Appearance is similar to prior study. Patient denies any other constitutional symptoms but she does report history of previous laparotomy for bladder rupture per her description he had surgery in [facility] about a year ago, she denies any history of peptic ulcer disease or any previous endoscopies. General surgery was consulted for further evaluation and potential intervention Current blood pressure 106/63 with a heart rate of 98 and respiratory rate 16/min Patient was seen and examined in the emergency department Patient reports that she lives at home and her takes care of her Review of Systems General: Reports: 10 or more systems reviewed and unremarkable except in HPI and below Medications/Allergies Allergies Allergy/AdvReac Type Severity Reaction Status Date / Time No Known Allergies Allergy Verified 12/01/19 14:03 PFSH Acute PFSH: Medical History (Updated 01/06/20 @ 01:30 by Liliana Anderson MD) Chronic indwelling Dumont catheter Neurogenic bladder Chronic indwelling catheter at this point Post-traumatic quadriplegia Recurrent sepsis due to urinary tract infection Surgical History H/O cystoscopy H/O Spinal surgery History of hysterectomy Social History Smoking and tobacco status: never smoked Alcohol intake: never Household members: spouse Housing: House Vitals/I&O/Wt Last Vital Signs Temp 99.3 F 01/05/20 22:50 Pulse 98 01/05/20 23:54 Resp 16 01/05/20 23:54 BP 94/56 01/05/20 23:54 Pulse Ox 95 01/05/20 23:54 Weight last 48 hrs Weight 98 lb Physical Exam Narrative: EXAM NARRATIVE: Patient is conscious alert oriented X3 BMI Head and neck examination PERRLA no masses no cervical lymphadenopathy no jaundice Cardiac examination audible S1-S2 no murmurs no gallops no arrhythmias Chest is clear bilateral,abscence of Rhonchi or wheezes,no surgical emphysema Abdomen generalized tenderess, particularly in the upper abdomen mildly distended soft no organomegaly guarding or rigidity/no signs of peritonitis Midline scar. Chronic indwelling catheter in the bladder Extremities no cyanosis no clubbing no edema Lower back pressure injury ulcers range stages from I-III Data : 01/05/20 23:00 01/05/20 23:00 A&P Assessment and plan (1) Perforated abdominal viscus: After thorough history physical examination and reviewing the chart and images myself, I counseled the patient for diagnostic laparoscopy possible laparotomy and possible bowel resection urgently. Indications risks benefits and alternatives all discussed with the patient and she did give a verbal consent as she is not able to write due to her quadriplegia. Informed consent per chart Status: Acute Code(s): R19.8 - Other specified symptoms and signs involving the digestive system and abdomen Attestations Medical Necessity Statement*: Medical necessity care is expected to cross 2 midnights Time Spent in Patient Care: 16 - 35 minutes (>than 50% of time spent in counselling and/or direct pt care on unit) . Coding Level of Care Code Acute Chief Sustainability Officer for g Fwd Diagnoses Perforated abdominal viscus R19.8
--- NOTE | 2020-01-06 01:50 | PC.NURSE ---
Surgeon here to see patient, surgery packet complete and signed.
--- NOTE | 2020-01-06 02:52 | PC.NURSE ---
OR crew here to get patient, patient left in stable condition in care of Or crew with ivf infusing.
[2020-01-06] MEDS: sodium chloride 0.9% 1,000 ML 30 ML IV (03:06)
--- NOTE | 2020-01-06 03:08 | P.ANESASSM_ITS ---
Pre-Anesthetic Assessment Pre-Anesthetic Assessment: Height/Weight: Height 1.63 m Weight 44.452 kg Temp Pulse Resp BP Pulse Ox 99.3 F 88 16 102/58 97 01/05/20 22:50 01/06/20 02:51 01/06/20 02:51 01/06/20 02:51 01/06/20 02:51 Preop Diagnosis: Perforated viscus Proposed Procedure: Operation Date: 01/06/20 03:30 Proposed Procedures p Laparoscopy(Not Applicable) - Kartik Carter MD s Exploratory Laparotomy(Not Applicable) - Kartik Carter MD s Colon Resection(Not Applicable) - Kartik Carter MD Familial anesthetic complications: none Last intake: NPO > 8 hrs, currently nauseated, no vomiting Social: Social History: No alcohol and No tobacco Exam: Pre-Anes Outpt Exam: alert, oriented x 3, clear to auscultation bilaterally and regular rate & rhythm Airway: Cervical ROM: WNL MP: 3 Additional comments: edentulous Pulmonary: Pulmonary: None reported CV/HEM: CV/HEM: None reported : Comments: chronic alfaro Hepatic: Hepatic: None reported GI: Comments: perforated viscus Metabolic: Metabolic: None reported Musc/skel: Comments: cervical spine injury w/ quadriplegia Neuropsych: Comments: quadriplegia Anesthetic Plan: ASA status: 3E Anesthesia: General Risk of > 500 ml blood loss (7ml/kg in children): No Other Pertinent Information: no apparent hx of autonomic hyperreflexia PFSH Anesthesia PFSH: Social History Smoking and tobacco status: never smoked Alcohol intake: never Household members: spouse Housing: House Data Anesthesia CBC & Chem 7: 01/05/20 23:00 01/05/20 23:00 Other Labs: Laboratory Results - last 48 hr 01/05/20 01/05/20 01/05/20 23:00 23:00 23:00 WBC 16.7 H RBC 3.91 L Hgb 11.2 L Hct 36.7 L MCV 93.9 MCH 28.6 MCHC 30.5 RDW 15.2 H Plt Count 385 MPV 9.4 Neut % (Auto) 88.7 Lymph % (Auto) 5.3 [place] % (Auto) 5.1 Eos % (Auto) 0.3 Baso % (Auto) 0.2 Neut # (Auto) 14.8 H Lymph # (Auto) 0.9 [place] # (Auto) 0.9 Eos # (Auto) 0.1 Baso # (Auto) 0.0 Nucleated RBC % (auto) 0 Nucleated RBCs # 0.0 Sodium 135 L Potassium 4.2 Chloride 101 Carbon Dioxide 19 L Anion Gap 19.2 H BUN 22 H Creatinine 0.8 GFR Calculation 77.9 L Glucose 151 H Calculated Osmolality 280 L Lactate 2.4 H Calcium 9.4 Total Bilirubin 0.2 AST 25 ALT 22 Alkaline Phosphatase 82 Total Protein 7.6 Albumin 3.7 Globulin 3.9 Lipase 17 Cardiac Studies: No Data to Display
[2020-01-06] MEDS: lidocaine 2% INJ 20 mL INJECTION (03:51)
[2020-01-06 05:07] LABS: Add Urine Microscopic? YES; Bilirubin Urine Neg (NEGATIVE); Blood Urine 2+ (Negative); Glucose Urine UA Norm (Normal); Ketones Urine Negative (Negative); Leukocyte Esterase Urine 2+ (Negative); Nitrate Urine Negative (Negative); Protein Urine Neg (Negative); Specific Gravity, Urine 1.015 (1.005-1.030); Urine Appearance Cloudy (CLEAR); Urine Color Yellow (Yellow); Urobilinogen Urine Norm (Negative); pH Urine 6 (5-7)
[2020-01-06 05:10] LABS: Add Urine Culture? No; Bacteria Urine 4+; Squamous Epithelial Cell Urine 40-55 (0-5); WBC Urine TOO NUMEROUS TO CNT /hpf (0-5)
--- NOTE | 2020-01-06 05:16 | P.OP_ITS ---
Operative Report Date of procedure: January 06, 2020 Pre-op Diagnosis: Perforated viscus Post-op diagnosis: other (Perforated gastric ulcer on the greater curvature of the) Procedure Done: Diagnostic laparoscopy Extensive adhesio lysis partial gastrectomy including the perforated gastric ulcer sutures issa proximal Peritoneal lavage Intra-abdominal drain placement Implants: 19 Polish rounded Denny drain Specimens removed/disposition: Partial gastrectomy sutures issa proximal Surgeon: Kartik Carter Carpet Sewing Machine Operator: Surgical techtyler Hilton Circulating nurse Donna Anesthesia: General (DOM Dialloi/Dr Escamilla) Estimated blood loss (mL): 25 IV fluids (mL): 600 Urine output (mL): 100 Complications: No immediate complications. Condition: stable Disposition: floor Brief History: Rosanne Morales is a 44 year old female with history of quadriplegia in bed attached with chronic indwelling Dumont catheter, patient started to encounter abdominal pain yesterday noon and as the pain got worse presented to the emergency department for further work-up and a CT scan of the abdomen and pelvis was done that showed; 1. Large amount of free intraperitoneal air, consistent with perforated viscus. It is suspected at the site of perforation is the body of the stomach. 2. Striated nephrogram demonstrated in each kidney. Differential diagnosis includes acute tubular necrosis and pyelonephritis. 3. Left adrenal nodule, similar to 12/18/2019 and a similar finding is described on report of CT of the abdomen and pelvis performed 09/26/2018. Consider adrenal washout protocol CT on a nonemergent basis for further evaluation. 4. Cystic mass in the right hemipelvis, similar to 12/18/2019. 5. Bladder wall thickening is present, possibly related to cystitis, chronic outlet obstruction, or prior surgery. Appearance is similar to prior study. Patient denies any other constitutional symptoms but she does report history of previous laparotomy for bladder rupture per her description he had surgery in [facility] about a year ago, she denies any history of peptic ulcer disease or any previous endoscopies. General surgery was consulted for further evaluation and potential intervention Current blood pressure 106/63 with a heart rate of 98 and respiratory rate 16/min Patient was seen and examined in the emergency department After thorough history physical examination and reviewing the chart and images with my personal interpretation, I counseled the patient for diagnostic laparoscopy possible laparotomy possible bowel resection, patient agreed to proceed accordingly. Informed consent per chart Procedure: Patient was identified in the holding area, patient was then taken to the operating room were the patient was placed in supine position, intubated by anesthesia, patient already received a dose Zosyn in the ER .Timeout was done verifying the patient's name/date of /planned procedure and destination after the procedure,all were in agreement. SCDs confirmed to be functioning and beta eric protocol was confirmed. Both arms were tucked to the sides.and all pressure points were padded,a Dumont catheter was already in. The patient was appropriately secured to the operating table, and I asked anesthesia to swing the table [id number] in different positions that the patient is appropriately secured to the OR table which it was the case. Prep and drape of the abdomen was done under the usual sterile technique, started by left upper quadrant Optiview 5 mm trocar guided by 5 mm scope and a safe entry to the abdomen was done under direct visualization and upon entrance.The peritoneal cavity was insufflated with CO2 gas up to 15 mmHg,there was no evidence of intra-abdominal injuries detected the scope was switched to a 30 degree 5 mm, extensive intra-abdominal adhesions were appreciated towards the midline and at this point under direct vision a 12 mm trocar was inserted at the epigastric region followed by more caudad 5 mm trocar. There was a band of adhesion likely represent previous PEG tube placement in the stomach, fixing the anterior surface of the stomach to the abdominal wall at this point a blue load GI stapler was fired to take that band down. I was able at this point to appreciate a perforation at the greater curvature slightly posterior with partial omental seal after taking the omentum down,there was evidence of pus at the retrogastric space with fibrinous exit likely due to the perforation,suction irrigation was done. Extensive adhesio lysis was achieved and exceeded 1 hour of the operative time using LigaSure device. And after taking more of the greater omentum down caudad and cephalad, I was able to apply multiple fires of green loads going from the distal part of the greater curvature to the proximal part including the perforated part of the stomach, which was delivered in an Endo Catch bag and specimen later on was marked by me with silk sutures proximal. There was mild oozing from the staple line 5 mm clips were applied in addition to large piece of Surgicel after appropriate suction and irrigation. Following that I was able to grab the omentum and sutured to the body of the stomach to cover the site of the staple line. A final laparoscopic survey was done showing no injuries to intra-abdominal structures, at this point under direct visualization, both 12 mm ports site was closed by grainy needle using an 2/0 Vicryl. A 19 Polish Denny round drain , was placed via the first 5 mm trocar,the drain was brought out from the left upper abdomen and secured to the skin by 2-0 nylon All trocars were taken out under direct vision. The rest of the stab incisions were closed by skin lasha after irrigation, followed by dry dressing in the form of Band-Aids Patient overall tolerated the procedure well The count of instruments,needles and sponges was completed at the end of the procedure. Dumont catheter was left in place. Patient was then extubated and transferred to the recovery area in a stable condition I was present for the whole entire procedure
[2020-01-06] MEDS: fentaNYL 50 mcg/mL INJ 2mL IVP ×2 (05:30→05:35)
[2020-01-06] MEDS: lactated ringers 1,000 ML 100 ML IV (06:17)
[2020-01-06] MEDS: famotidine 20 mg/2 mL INJ IVP ×2 (06:17→17:32)
[2020-01-06] MEDS: morphine 4 mg/mL SDV 1 mL 2 MG IVP (09:48)
--- NOTE | 2020-01-06 10:57 | PC.CHAP ---
Pastoral Care Encounter/Spiritual Assessment Type of Contact [] Declined shearer helper visit [] Patient/Family/Request visit [] Outpatient visit [] Follow-up visit [] Physician referral [] Code/Alert [x] Routine visit [] Staff referral [] Actively dying [] Patient sleeping [] Family support [] [] Out of room [] Palliative care [] [] Receiving care in room [] Pre-surgical visit [] Trauma [] Long length of stay [] ICU visit [] Other: Relational/Emotional Strength [x] Patient feels connected with others/family/visitors/staff [] Distress [] Loneliness/isolation [] Abandonment Spirituality of Patient [x] Person of Susan [x] Attends Presybeterian of their Susan [x] Believes in Prayer [] Reads Bible or Christianity materials [] There are Spiritual issues to be addressed Asbestos Remover Interventions [x] Prayer [x] Active listening [x] Non-anxious presence [x] Spiritual/emotional support [] Crisis/trauma care [] Spiritual counseling [] Bereavement support [] Provided bereavement packet [] Provided Bible/devotional materials [] Provided toy/stuffed animal, coloring book to patient or family member [] Provided Communion [] Anointing/[place] [] Salvation [x] Completed spiritual assessment [] Other: Impact on Illness or Injury [] Angry [] Fearful [] Anxious [] Often cries [] Exhaustion [] Unable to work [] Unable to attend mosque [] Unable to walk/stand [] Unable to read [] Unable to drive [] Unable to eat/drink [] Unable to sleep [] Unable to be with family [] Patient intubated [] Other: Summary patient very sweet Time spent with patient 10 min
[2020-01-06] MEDS: lactated ringers 500 ML 999 ML IV (14:47)
[2020-01-06] MEDS: lactated ringers 1,000 ML 125 ML IV ×2 (15:41→23:30)
[2020-01-06 16:25] LABS: Hematocrit 27.7 % (37.0-47.0); Hemoglobin 8.4 g/dL (11.5-15.3)
[2020-01-06] MEDS: morphine 4 mg/mL SDV 1 mL 1 MG IVP ×3 (16:33→23:38)
[2020-01-06 16:37] LABS: INR 1.21 (0.8-1.2)
[2020-01-06 16:38] LABS: Partial Thromboplastin Time 36.4 SECONDS (23.9-36.7)
[2020-01-07] VITALS (14 sets, daily range): BP systolic 91–130; BP diastolic 53–80; PULSE 72–91; RESP 16–20; TEMP 36.5–37.1; O2SAT 95–100
[2020-01-07] MEDS: morphine 4 mg/mL SDV 1 mL 1 MG IVP ×2 (05:22→08:11)
[2020-01-07] MEDS: famotidine 20 mg/2 mL INJ IVP ×2 (05:22→17:24)
[2020-01-07 05:58] LABS: Basophils % 0.2 %; Eosinophils # 0.1 10^3/uL (0.0-0.8); Eosinophils % 0.9 %; Hematocrit 26.2 % (37.0-47.0); Hemoglobin 8.1 g/dL (11.5-15.3); Lymphocytes # 0.8 10^3/uL (0.8-4.8); Lymphocytes % 9.1 %; Mean Corpuscular HGB Conc 30.9 g/dL (30.0-36.0); Mean Corpuscular Hemoglobin 29.7 pg (28.0-34.0); Mean Platelet Volume 9.5 fL (7.4-10.4); Monocytes # 0.7 10^3/uL (0.2-0.9); Monocytes % 7.2 %; Neutrophils # 7.5 10^3/uL (1.8-7.7); Neutrophils % 82.4 %; Nucleated Red Blood Cells % 0 %; Platelet Count 254 10^3/cmm (130-400); Red Blood Count 2.73 10^6/uL (4.1-5.3); Red Cell Distribution Width 15.9 % (12.1-15.1); White Blood Count 9.1 10^3/uL (4.0-10.0)
[2020-01-07] MEDS: lanolin oint 7 gm 1 APPLIC TOPICAL (06:02)
[2020-01-07] MEDS: piperacillin-tazobactam 3.375 GM in sodium chloride 0.9% (plus) 100 ML IV ×3 (06:03→23:14)
[2020-01-07 06:07] LABS: INR 1.29 (0.8-1.2)
[2020-01-07 06:16] LABS: Alanine Aminotransferase 12 U/L (0-33); Albumin Level 2.4 g/dL (3.5-5.2); Alkaline Phosphatase 63 IU/L (35-105); Anion Gap 13.9 (5-19); Aspartate Amino Transferase 13 U/L (0-32); Blood Urea Nitrogen 12 mg/dL (6-20); Calcium 8.3 mg/dL (8.5-10.5); Carbon Dioxide 20 mmol/L (22-29); Chloride 104 mmol/L (98-107); Globulin 3.1 g/dL (1.3-4.6); Glomerular Filtration Rate 77.9 mL/min (90-130); Glucose 83 mg/dL (65-115); Osmolality Calculated 273 mOsm/kg (285-295); Potassium 3.9 mmol/L (3.5-5.1); Sodium 134 mmol/L (136-145); Total Bilirubin 0.2 mg/dL (0.15-1.2); Total Protein 5.5 g/dL (6.6-8.7)
--- NOTE | 2020-01-07 06:27 | PM.PN ---
Subjective Subjective: Interval history: Patient overall is doing well, and no acute events overnight Blood pressure continues to be on the softer side but it seems to be at baseline for the patient as she continues to be making good urine output and does not show signs of tachycardia. Vitals/I&O/Wt Last Vital Signs Temp 98.2 F 01/07/20 04:00 Pulse 88 01/07/20 04:00 Resp 18 01/07/20 05:22 BP 91/53 01/07/20 04:00 Pulse Ox 96 01/07/20 04:00 01/06/20 01/06/20 01/07/20 14:59 22:59 06:59 Intake Total 1185.167 / 4506.199 9094.500 / 2447.667 872.917 / 3320.584 Output Total 830 / 830 920 / 1750 660 / 2410 Balance 355.167 / 355.167 342.500 / 697.667 212.917 / 910.584 Weight last 48 hrs Weight 98 lb Physical Exam Narrative: EXAM NARRATIVE: Patient is conscious alert oriented X3 BMI 70 Head and neck examination PERRLA no masses no cervical lymphadenopathy no jaundice Cardiac examination audible S1-S2 no murmurs no gallops no arrhythmias Chest is clear bilateral,abscence of Rhonchi or wheezes,no surgical emphysema Abdomen nontender except mildly at the incision site nondistended soft no organomegaly guarding or rigidity/no signs of peritonitis Left upper quadrant drain with serosanguineous output Lower back pressure injury ulcers right and left lower back region stages III and II respectively Extremities shows chronic deformity Urinary Catheter Management^: I: Cath Placed During This Visit: no Data : 01/07/20 05:40 01/07/20 05:40 A&P Assessment and plan (1) Perforated abdominal viscus: We will send the patient today for an upper GI study once this comes back we will start feeding the patient Frequent turning in bed and repositioning every 2 hours We will follow on a.m. lab Continue drain care We will consult physical therapy We will have drug abuse social worker to look into patient's potential discharge planning Assurance and education All questions have been answered and all concerns have been addressed to patient's satisfaction. Unfortunately there is no available radiology service today to perform an upper GI study or tomorrow likely will take place Thursday, and thus will continue to keep the patient n.p.o. Status: Resolved Code(s): R19.8 - Other specified symptoms and signs involving the digestive system and abdomen Attestations Medical Necessity Statement*: Medical necessity care is expected to cross 2 midnights Time Spent in Patient Care: 16 - 35 minutes (>than 50% of time spent in counselling and/or direct pt care on unit). 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
[2020-01-07] MEDS: lactated ringers 1,000 ML 125 ML IV ×3 (07:44→23:15)
[2020-01-07] MEDS: ondansetron 2 mg/ML SDV 2 mL 4 MG IVP (07:45)
--- NOTE | 2020-01-07 08:12 | ANE.PACU2 ---
 Inpatient post-anesthesia follow up: Airway intact: Yes Vital signs: Temperature 98.5 F Pulse Rate [Monito r] 76 Pulse Rate 88 Respiratory Rate 18 Blood Pressure [Ri ght Arm] 114/81 Blood Pressure 100/67 Pulse Oximetry 100 Oxygen Delivery Me thod Room Air Oxygen Flow Rate 8 Fraction of Inspir ed Oxygen Hydration adequate: Yes Nausea and vomiting: No Pain level: 2 Mental status: Baseline
[2020-01-07] MEDS: morphine 4 mg/mL SDV 1 mL 2 MG IVP ×3 (12:42→23:22)
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
--- NOTE | 2020-01-07 17:47 | PC.NURSE ---
Nurse spoke with Chante at [facility] home care, patient's catheter was changed last Thursday, stated she will send over documentation of alfaro catheter change as soon as possible. IS at bedside, nurse assisted patient with IS and will continue routinely.
[2020-01-08] VITALS (8 sets, daily range): BP systolic 116–132; BP diastolic 75–82; PULSE 64–76; RESP 16–18; TEMP 36.4–36.9; O2SAT 94–100
[2020-01-08] MEDS: morphine 4 mg/mL SDV 1 mL 2 MG IVP ×4 (05:46→22:27)
[2020-01-08] MEDS: famotidine 20 mg/2 mL INJ IVP ×2 (06:43→18:00)
[2020-01-08] MEDS: piperacillin-tazobactam 3.375 GM in sodium chloride 0.9% (plus) 100 ML IV (06:43)
--- NOTE | 2020-01-08 07:31 | PM.PN ---
Subjective Subjective: Interval history: Patient overall feels well and started to have passage of gas Patient is a very hard stick lab was not able to retrieve blood work today Vitals/I&O/Wt Last Vital Signs Temp 97.5 F L 01/08/20 07:08 Pulse 65 01/08/20 07:08 Resp 17 01/08/20 07:08 BP 132/78 01/08/20 07:08 Pulse Ox 100 01/08/20 07:08 01/07/20 01/08/20 01/08/20 22:59 06:59 14:59 Intake Total 1558.334 / 2658.334 679.167 / 3337.501 Output Total 1415 / 1545 1185 / 2730 Balance 143.334 / 1113.334 -505.833 / 607.501 Physical Exam Narrative: EXAM NARRATIVE: Patient is conscious alert oriented X3 BMI 17 Head and neck examination PERRLA no masses no cervical lymphadenopathy no jaundice Cardiac examination audible S1-S2 no murmurs no gallops no arrhythmias Chest is clear bilateral,abscence of Rhonchi or wheezes,no surgical emphysema Abdomen nontender nondistended soft no organomegaly guarding or rigidity/no signs of peritonitis. Left upper quadrant drain in place with serosanguineous output Urinary Catheter Management^: I: Cath Placed During This Visit: no Data : 01/07/20 05:40 01/07/20 05:40 A&P Assessment and plan (1) Perforated abdominal viscus: Today is postoperative day 2 status post diagnostic laparoscopy and partial gastrectomy We will plan to start the patient slowly on ice chips and popsicles We will send the patient tomorrow for an upper GI study as there is no available radiology service over the weekend Frequent turning in bed and repositioning every 2 hours Daily dressing change using Hydrofera Blue for the pressure injury lower back ulcers We will follow on a.m. labs Will switch to maintenance fluids D5 and half-normal +20 KCl at 100 mL/h and DC LR DC IV antibiotics Continue drain care Continue physical therapy We will continue coordinating with long term care social worker for discharge planning Assurance and education All questions have been answered and all concerns have been addressed to patient's satisfaction. Status: Resolved Code(s): R19.8 - Other specified symptoms and signs involving the digestive system and abdomen Attestations Medical Necessity Statement*: Medical necessity care is expected to cross 2 midnights Time Spent in Patient Care: 16 - 35 minutes (>than 50% of time spent in counselling and/or direct pt care on unit). 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
[2020-01-08] MEDS: D5-NS 0.45% + KCL 20 mEq 20 MEQ/1,000 ML BAG 100 MEQ IV ×2 (08:26→17:59)
[2020-01-08] MEDS: ondansetron 2 mg/ML SDV 2 mL 4 MG IVP (14:23)
[2020-01-09] VITALS (12 sets, daily range): BP systolic 105–155; BP diastolic 67–97; PULSE 50–73; RESP 16–20; TEMP 36.3–36.9; O2SAT 94–99
[2020-01-09] MEDS: morphine 4 mg/mL SDV 1 mL 2 MG IVP ×5 (03:38→20:30)
[2020-01-09 05:00] LABS: Hematocrit 27.3 % (37.0-47.0); Hemoglobin 8.2 g/dL (11.5-15.3)
[2020-01-09 05:20] LABS: Blood Urea Nitrogen 7 mg/dL (6-20); Calcium 8.6 mg/dL (8.5-10.5); Carbon Dioxide 24 mmol/L (22-29); Chloride 106 mmol/L (98-107); Glomerular Filtration Rate 90.9 mL/min (90-130); Glucose 106 mg/dL (65-115); Osmolality Calculated 282 mOsm/kg (285-295); Sodium 138 mmol/L (136-145)
[2020-01-09] MEDS: D5-NS 0.45% + KCL 20 mEq 20 MEQ/1,000 ML BAG 100 MEQ IV ×2 (05:21→18:06)
[2020-01-09] MEDS: famotidine 20 mg/2 mL INJ IVP ×2 (05:21→18:07)
[2020-01-09] MEDS: ondansetron 2 mg/ML SDV 2 mL 4 MG IVP ×2 (05:23→09:11)
--- NOTE | 2020-01-09 05:43 | FL_ITS ---
WS: [id number] Barium swallow and esophagram, upper GI series, 01/09/2020 Clinical Data: s/p Partial gastrectomy for perforated Gastric ulcer Comparison: None. Fluoroscopy time: 1.8 minutes. Findings: The preliminary film showed a drainage tube in the left upper quadrant. There were surgical lasha and clips in the left upper quadrant. There is a catheter in the bladder. The patient swallowed the thin barium, and it flowed to the hypopharynx without hesitation. No stric ture, mass, polyp or erosion was seen. The barium passed into the esophagus and there was normal motility throughout. No hiatal hernia, refl ux, stricture, polyp, mass, erosion or ulcer was noted. No reflux was present. The barium proceeded into the stomach and only the fundus filled. The barium then did not move out of the fundus. No gastric peristalsis was seen. Delayed imaging was obtained at 1, 2 and 4 hours after ingestion and no propulsion of the barium occurred. A delayed KUB at 19 hours showed the barium did proceed from the stomach and is seen within the colon . However there is still residual barium within the stomach. FL/FL upper GI gastrografin [id number] Impression: 1. Normal esophagram. 2. Only the fundus of stomach filled and even at 19 hours later did some of the barium procede into the colon.
--- NOTE | 2020-01-09 05:43 | PM.PN ---
Subjective Subjective: Interval history: Patient overall feels well and tolerating popsicles Vitals/I&O/Wt Last Vital Signs Temp 97.7 F 01/09/20 03:36 Pulse 58 L 01/09/20 03:36 Resp 18 01/09/20 03:38 BP 105/67 01/09/20 03:36 Pulse Ox 98 01/09/20 03:36 01/08/20 01/08/20 01/09/20 14:59 22:59 06:59 Intake Total 1000 / 1000 1055 / 2055 1000 / 3055 Output Total 50 / 50 2805 / 2855 665 / 3520 Balance 950 / 950 -1750 / -800 335 / -465 Physical Exam Narrative: EXAM NARRATIVE: Patient is conscious alert oriented X3 BMI 17 Head and neck examination PERRLA no masses no cervical lymphadenopathy no jaundice Abdomen nontender except mildly at the incision site nondistended soft no organomegaly guarding or rigidity/no signs of peritonitis Left upper drain in place with serous output Urinary Catheter Management^: I: Cath Placed During This Visit: no Data : 01/09/20 04:08 01/09/20 04:08 A&P Assessment and plan (1) Perforated abdominal viscus: Postoperative day 3 status post partial gastrectomy for perforated gastric ulcer We will follow on the upper GI study today once it is cleared we will have the patient advanced her diet Will Continue coordinating with case technician with regard to placement & discharge planning Continue physical therapy Reposition in bed every 2 hours Assurance and education All questions have been answered and all concerns have been addressed to patient's satisfaction. Status: Resolved Code(s): R19.8 - Other specified symptoms and signs involving the digestive system and abdomen Attestations Medical Necessity Statement*: Medical necessity care is expected to cross 2 midnights Time Spent in Patient Care: 16 - 35 minutes (>than 50% of time spent in counselling and/or direct pt care on unit). Coding Level of Care Code Acute Head Orthopedic Team Physician for Julien [facility] Diagnoses Perforated abdominal viscus R19.8
[2020-01-09] MEDS: scopolamine 1.5 Patch 1 PATCH TRANSDERMA (09:10)
--- NOTE | 2020-01-09 12:25 | PC.SOCIAL ---
IMM Update Pg 2 of IMM given and explained to patient who verbalized understanding. Patient unable to sign. Placed in chart and copy provided to patient.
[2020-01-09] MEDS: metoclopramide 5 mg/mL SDV 2 mL IVP (15:50)
[2020-01-10] VITALS (9 sets, daily range): BP systolic 100–143; BP diastolic 62–84; PULSE 64–100; RESP 16–18; TEMP 36.3–37; O2SAT 96–100
[2020-01-10] MEDS: morphine 4 mg/mL SDV 1 mL 2 MG IVP ×5 (02:16→12:15)
[2020-01-10] MEDS: D5-NS 0.45% + KCL 20 mEq 20 MEQ/1,000 ML BAG 100 MEQ IV (02:19)
[2020-01-10] MEDS: famotidine 20 mg/2 mL INJ IVP ×2 (04:44→17:28)
--- NOTE | 2020-01-10 06:01 | PM.PN ---
Subjective Subjective: Interval history: Patient is passing gas and having bowel movement Minimal output per drain Continue to tolerate popsicles and ice chips Final read of upper GI study is pending, contrast is taking more time to pass through likely due to underlying gastroparesis, patient is given Reglan intermittently Vitals/I&O/Wt Last Vital Signs Temp 97.4 F L 01/10/20 04:00 Pulse 64 01/10/20 04:00 Resp 18 01/10/20 04:43 BP 113/72 01/10/20 04:00 Pulse Ox 96 01/10/20 04:00 01/09/20 01/09/20 01/10/20 14:59 22:59 06:59 Intake Total 100 / 100 1000 / 1100 821.667 / 1921.667 Output Total 1365 / 1365 915 / 2280 Balance 100 / 100 -365 / -265 -93.333 / -358.333 Physical Exam Narrative: EXAM NARRATIVE: Patient is conscious alert oriented X3 BMI 17 Head and neck examination PERRLA no masses no cervical lymphadenopathy no jaundice Abdomen nontender nondistended soft no organomegaly guarding or rigidity/no signs of peritonitis Left upper drain in place with minimal serous output Urinary Catheter Management^: I: Cath Placed During This Visit: no Data : 01/09/20 04:08 01/09/20 04:08 A&P Assessment and plan (1) Perforated abdominal viscus: Postoperative day 4 status post partial gastrectomy for perforated gastric ulcer 01/06/20 We will follow on the upper GI study today once it is cleared we will have the patient advanced her diet Will Continue coordinating with medical case manager with regard to placement & discharge planning Continue physical therapy Reposition in bed every 2 hours We will drop the maintenance fluids to 75 mL/h Later through the day the upper GI study came back and the contrast went through and being appreciated in the colon, at this point will start the patient on full liquid diet and Hep-Lock IV fluids. Once patient tolerates p.o. intake, will plan to discharge today Assurance and education All questions have been answered and all concerns have been addressed to patient's satisfaction. Status: Resolved Code(s): R19.8 - Other specified symptoms and signs involving the digestive system and abdomen Attestations Medical Necessity Statement*: Medical necessity care is expected to cross 2 midnights Time Spent in Patient Care: 16 - 35 minutes (>than 50% of time spent in counselling and/or direct pt care on unit). Coding Level of Care Code Acute Environmental Health Safety Manager for [facility] Fwd Diagnoses Perforated abdominal viscus R19.8
[2020-01-10] MEDS: metoclopramide 5 mg/mL SDV 2 mL IVP (06:34)
[2020-01-10] MEDS: morphine 4 mg/mL SDV 1 mL 1 MG IVP ×2 (12:10→15:22)
[2020-01-10] MEDS: D5-NS 0.45% + KCL 20 mEq 20 MEQ/1,000 ML BAG 75 MEQ IV (14:49)
[2020-01-10] MEDS: HYDROcodone-acetaminophen 5-325 mg Tablet 1 TAB PO ×2 (17:28→23:00)
[2020-01-10] MEDS: ondansetron 2 mg/ML SDV 2 mL 4 MG IVP (21:22)
[2020-01-10] MEDS: gabapentin 100 mg Capsule PO (21:37)
[2020-01-10] MEDS: baclofen 10 mg Tablet 5 MG PO (21:37)
[2020-01-11 03:56] VITALS: BP 123/80; PULSE 60; RESP 16; TEMP 36.6; O2SAT 94
[2020-01-11] MEDS: famotidine 20 mg/2 mL INJ IVP (06:01)
--- NOTE | 2020-01-11 06:09 | P.PN_ITS ---
Subjective Subjective: Interval history: Patient overall is tolerating p.o. intake and passing gas and having bowel movement No acute events overnight Vitals/I&O/Wt Last Vital Signs Temp 97.9 F 01/11/20 03:56 Pulse 60 01/11/20 03:56 Resp 16 01/11/20 03:56 BP 123/80 01/11/20 03:56 Pulse Ox 94 01/11/20 03:56 01/10/20 01/10/20 01/11/20 14:59 22:59 06:59 Intake Total 745 / 745 Output Total 2650 / 2650 310 / 2960 Balance 745 / 745 -2650 / -1905 -310 / -2215 Physical Exam Const: COMMON NORMALS: no apparent distress and oriented x3 GENERAL APPEARANCE: cooperative ORIENTATION/CONSCIOUSNESS: Yes awake, Yes oriented to person, Yes oriented to place and Yes oriented to time HENMT: COMMON NORMALS: normocephalic HEAD & SCALP: normocephalic Eye: COMMON NORMALS: PERRL and no scleral icterus PUPIL: Yes PERRL Chest: COMMONS NORMALS: inspection of chest normal GI: COMMON NORMALS: soft to palpation; negative for no hepatosplenomegaly INSPECTION: Yes normal to inspection PALPATION: Yes soft, No firm, No tender, No guarding, No rigid and No no hepatosplenomegaly Neuro: COMMON NORMALS: oriented x3 SENSORIUM/ORIENTATION: Yes oriented to person, Yes oriented to place and Yes oriented to time Skin: GENERAL SKIN EXAM: other (Lower back pressure injury ulcers stable on examination) Urinary Catheter Management^: I: Cath Placed During This Visit: no Data : 01/09/20 04:08 01/09/20 04:08 A&P Assessment and plan (1) Perforated abdominal viscus: Postoperative day 5 status post partial gastrectomy for perforated gastric ulcer 01/06/20 We will continue full liquid diet today and starting tomorrow advance to soft GI diet Continue physical therapy Reposition in bed every 2 hours We will plan to discharge patient today to [facility] facility she [facility] been accepted Patient was kept yesterday overnight to make sure that she continues to tolerate well p.o. intake Continue drain care follow the protocol for changing indwelling Dumont catheter every 30 days Assurance and education All questions have been answered and all concerns have been addressed to patient's satisfaction. We will have the patient come back and see me in surgery office in 1 week for drain removal Status: Resolved Code(s): R19.8 - Other specified symptoms and signs involving the digestive system and abdomen Attestations Medical Necessity Statement*: Medical necessity care is expected to cross 2 midnights Time Spent in Patient Care: 16 - 35 minutes (>than 50% of time spent in counselling and/or direct pt care on unit) . Coding Level of Care Code Acute Manpower Development Manager for g Fwd Diagnoses Perforated abdominal viscus R19.8
--- NOTE | 2020-01-11 06:18 | PM.DCS ---
Discharge Providers Date of Admission: 01/06/20 05:48 Date of Discharge: January 11, 2020 Attending Provider at Admission: Kartik Carter MD Attending Provider at Discharge: Kartik Carter MD Primary Care Provider: Cade Castaneda MD Diagnoses at Discharge Discharge Diagnosis (1) Perforated abdominal viscus: Status: Resolved Problem details: Condition resolved Reason for Visit Reason for Visit: Reason For Visit: R ABD PAIN Hospital Course Discharge Summary: This is a pleasant 44 years old female patient scented to the emergency department with worsening abdominal pain and a CT scan was obtained showed pneumoperitoneum, patient was urgently taken to the OR for diagnostic laparoscopy and was found to have a perforated gastric ulcer and a partial gastrectomy was done intra-abdominal drain placed, patient was admitted to my service and an upper GI study was obtained that showed no leak, but there was a delay of emptying of the stomach likely due to underlying gastroparesis. Patient maintained to be doing well she was a very hard stick to obtain frequent labs yet her H&H was stable, continue to have stable vital signs and tolerating p.o. intake and having bowel movements and passing gas. Plan to discharge patient to long term facility today as she has been accepted, with the plan to follow-up with me at the surgery office in 1 week to remove the drain. Physical Exam Narrative: EXAM NARRATIVE: Patient is conscious alert oriented X3 BMI 17 Head and neck examination PERRLA no masses no cervical lymphadenopathy no jaundice Abdomen nontender nondistended soft no organomegaly guarding or rigidity/no signs of peritonitis Left upper drain in place with serous output Lower back pressure injury ulcers stable Urinary Catheter Management^: I: Cath Placed During This Visit: no Discharge Data Data Completed and Pending: Completed Studies During Hospitalization Category Date Time Status CT abdomen pelvis w con* [id number] Urge nt Cat Scan 01/05/20 22:40 Completed [place] upper GI gastr ografin [id number] Rout ine Exams 01/09/20 05:43 Completed Pathology: Surgic al [PTH] Routine Pth 01/06/20 05:34 Completed Pending at discharge Category Date Time Status ES surgery / GI i mages Routine Exams 01/06/20 02:52 Ordered Vitals: Last Vital Signs Temp 97.9 F 01/11/20 03:56 Pulse 60 01/11/20 03:56 Resp 16 01/11/20 03:56 BP 123/80 01/11/20 03:56 Pulse Ox 94 01/11/20 03:56 Discharge Plan Discharge Patient Disposition: Xfer SNF Condition: Stable Prescriptions: New Protonix 40 mg tablet,delayed release (DR/EC) 40 mg PO DAILY 30 Days Qty: 30 RF: 2 Continued Senna Lax 8.6 mg Tablet 17.2 mg PO BEDTIME Qty: 30 RF: 0 Miralax 17 gram Powder In Packet 17 g PO DAILY Qty: 30 RF: 0 hydrocodone-acetaminophen 5-325 mg Tablet 1 tab PO Q6H PRN (Reason: Moderate To Severe Pain) Qty: 30 RF: 0 docusate sodium 100 mg Capsule 100 mg PO BID Qty: 60 RF: 0 lactulose 20 gram/30 mL Solution 10 g PO DAILY Qty: 300 RF: 0 ampicillin 500 mg capsule 500 mg PO QID Qty: 40 RF: 0 Zofran 4 mg tablet 4 mg PO Q8H Qty: 15 RF: 0 Discharge Orders: Discharge Order (Routine); Ordered 01/11/20 Ordered By: Kartik Carter Referrals: [facility] [Other] Cade Castaneda MD [Primary Care Provider] - Discharge Diet: Full LIquid Activity Restrictions/Additional Instructions: 1. Patient can have sponge bath on daily 2. Return to surgery office in 1 week to remove drain and skin lasha 3. Continue physical therapy 4. Frequent turning in bed at least every 2 hours to prevent deterioration of already existing pressure injury ulcers and developing more 5. Please follow the protocol for changing indwelling Dumont catheter every 30 days 6.Contact the office or return to the ER for worsening nausea vomiting fevers or chills, or noticing any redness around incision sites or discharge. 6. Advised to return to ER or contact my office if there are any signs of infection like, increasing pain, fevers, chills, redness or drainage of pus. 7. Continue full liquid diet today and starting tomorrow advance to soft GI diet with aspiration precautions. 8. 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
[2020-01-11 07:41] VITALS: BP 135/77; PULSE 65; RESP 18; TEMP 36.3; O2SAT 97
[2020-01-11] MEDS: HYDROcodone-acetaminophen 5-325 mg Tablet 1 TAB PO ×2 (08:57→14:25)
[2020-01-11] MEDS: baclofen 10 mg Tablet 5 MG PO ×2 (08:58→14:23)
[2020-01-11] MEDS: gabapentin 100 mg Capsule PO ×2 (08:58→14:23)
[2020-01-11 09:52] VITALS: BP 135/77; PULSE 65; RESP 18; TEMP 36.3; O2SAT 97
--- NOTE | 2020-01-11 10:22 | PC.SOCIAL ---
IMM UPDATE PG 2 of IMM given and explained to patient who verbalized understanding. Copy provided.
[2020-01-11 11:36] VITALS: BP 107/72; PULSE 69; RESP 18; TEMP 36.7; O2SAT 96
[2020-01-11 15:25] VITALS: BP 107/72; PULSE 69; RESP 18; TEMP 36.7; O2SAT 96
== END 2020-01-11 15:27 | disposition skilled nursing facility (03) | DRG 326 ==
LOC: ER 01-06 02:46 → OPS 01-06 02:51 → MEDSURG 01-06 09:10
PROVIDERS: Admitting Provider Surgery; Emergency Provider Emergency Medicine; Family Provider Psychiatry & Neurology Neurology; PCP Family Medicine; Visit Provider Surgery
PROC: 0DB60ZZ Excision of Stomach, Open Approach (ICD-10-PCS; CPT 49320; principal; 2020-01-06 03:00)
PROC: 0DB60ZZ Excision of Stomach, Open Approach (ICD-10-PCS; 2020-01-06 03:00)
DX: K25.5 Chronic or unspecified gastric ulcer with perforation (principal); G82.50 Quadriplegia, unspecified; Z79.82 Long term (current) use of aspirin; Z79.83 Long term (current) use of bisphosphonates
CPT/HCPCS: 12345; 36415; 74177; 74240; 80048; 80053; 81001; 83605; 83690; 85014; 85018; 85025; 85610; 85730; 86850; 86900; 87077; 87086; 87186; 88309; 96374; 96375; 97110; 97162; 97530; 99284; J0131; J2001; J2270; J2370; J2405; J2543; J2704; J2710; J2765; J3010; J3490; J7030; J7050; Q9963; Q9967

== ENCOUNTER 2020-01-27 10:45 | Emergency (ER) | payer MEDICARE, SELFPAY ==
[2020-01-27] VITALS (7 sets, daily range): BP systolic 85–90; BP diastolic 52–74; PULSE 64–84; RESP 14–21; O2SAT 98–99; BMI 20.5
--- NOTE | 2020-01-27 11:00 | CT_ITS ---
WS: [id number] CT ABDOMEN AND PELVIS WITH CONTRAST HISTORY: abd pain TECHNIQUE: Imaging performed of the abdomen and pelvis with IV contrast. Single phase imaging of the abdomen. Coronal and sagittal reformats are submitted. All CT scans at [facility] use at least one of these dose optimization techniques: automated exposure control; mA and/or kV adjustment per patient size (includes targeted exams where dose is matched to clinical indication); or iterativ e reconstruction. IV CONTRAST: Omnipaque 300; 95 mL IV. Oral contrast: No DLP: 741.63 mGy.cm COMPARISON: 01/06/2020, 12/18/2019 Lower thorax: Dependent changes posteriorly. No pneumonia. Heart is normal size. No hiatal hernia. Liver/biliary system: Normal size with no intrahepatic dilatation. Gallbladder: Normal. No gallstones or wall thickening. No pericholecystic fluid. Pancreas: Normal. Spleen: Normal. Adrenal glands: Normal RIGHT adrenal gland. LEFT adrenal nodule measuring 12 x 10 mm has been previou sly described with no increase in size. Right kidney: Normal size kidney with normal enhancement no obstruction. There is a small extrarenal pelvis which is stable. Left kidney: Normal size kidney with an extrarenal pelvis which is unchanged. No obstruction. Aorta: Mild atherosclerosis. Normal variant celiac axis. Lymphadenopathy: None. Free fluid: There is a very small amount of free fluid in the pelvis. No definite free air is identified on today's study. There is a small outpouching of air from the hep atic flexure which I believe is still contained within the GI tract. This is seen on image 38 of seri es 2. GI tract: Numerous surgical clips are now noted over the fundus of the stomach. Marked dilatation of the stomach with food products. There is colonic distention with fluid and fecal material. Severe con stipation and dilated, distended rectum measuring up to 7.1 cm in diameter. No obstruction. The appen violetta is normal. Abdominal wall: Unremarkable abdominal wall. No hernia. Pelvis: Dumont catheter in a nondistended urinary bladder. Again noted are long-term stability of bila teral cystic masses. Bones: Unremarkable. CT/CT abdomen pelvis w con* [id number] IMPRESSION: 1. Marked fluid fecal distention of the colon with marked dilatation of the re ctum due to inspissation. 2. New postsurgical changes involving the stomach since 01/06/2020. 3. No definite free air is identified on today's study. 4. Stable LEFT adrenal adenoma.
[2020-01-27 11:24] LABS: Basophils % 0.3 %; Eosinophils # 0.1 10^3/uL (0.0-0.8); Eosinophils % 1.3 %; Hematocrit 34.7 % (37.0-47.0); Hemoglobin 10.8 g/dL (11.5-15.3); Lymphocytes # 1.1 10^3/uL (0.8-4.8); Lymphocytes % 13.1 %; Mean Corpuscular HGB Conc 31.1 g/dL (30.0-36.0); Mean Corpuscular Hemoglobin 29.5 pg (28.0-34.0); Mean Corpuscular Volume 94.8 fL (81-99); Mean Platelet Volume 10.1 fL (7.4-10.4); Monocytes # 0.4 10^3/uL (0.2-0.9); Monocytes % 5.1 %; Neutrophils # 6.9 10^3/uL (1.8-7.7); Neutrophils % 79.9 %; Nucleated Red Blood Cells % 0 %; Platelet Count 353 10^3/cmm (130-400); Red Blood Count 3.66 10^6/uL (4.1-5.3); Red Cell Distribution Width 14.9 % (12.1-15.1); White Blood Count 8.6 10^3/uL (4.0-10.0)
--- NOTE | 2020-01-27 11:45 | PC.NURSE ---
pt presents to ed via ems with abdominal pain. pt recently had a perforated bowel and had surgery. states she has been home for 5 days. pt is bed bound, has alfaro catheter in place with cloudy purulent urine. Pt states that she started to have abdominal pain this morning. states that she has been nauseous, states the pain is similar to when she had her bowel issues. ems administered 5mg morphine by IM. no other meds or acls done. pt is caox4. once in the room, pt connected to time checker. iv access obtained. pt states that she was supposed to have her alfaro removed today, so changed out her alfaro cath. meds given per doctors orders. will continue to monitor pt
[2020-01-27] MEDS: iohexol 300 mg/mL 100 mL Btl IV (11:46)
[2020-01-27 11:49] LABS: Alanine Aminotransferase 14 U/L (0-33); Alkaline Phosphatase 91 IU/L (35-105); Anion Gap 18.8 (5-19); Aspartate Amino Transferase 18 U/L (0-32); Blood Urea Nitrogen 22 mg/dL (6-20); Calcium 9.7 mg/dL (8.5-10.5); Carbon Dioxide 23 mmol/L (22-29); Chloride 101 mmol/L (98-107); Globulin 3.6 g/dL (1.3-4.6); Glomerular Filtration Rate 77.9 mL/min (90-130); Glucose 113 mg/dL (65-115); Lipase 16 U/L (13-60); Osmolality Calculated 285 mOsm/kg (285-295); Potassium 3.8 mmol/L (3.5-5.1); Sodium 139 mmol/L (136-145); Total Bilirubin 0.2 mg/dL (0.15-1.2); Total Protein 7.6 g/dL (6.6-8.7)
[2020-01-27] MEDS: sodium chloride 0.9% 1,000 ML 999 ML IV (11:51)
[2020-01-27] MEDS: ondansetron 2 mg/ML SDV 2 mL 4 MG IVP (11:52)
[2020-01-27 12:57] LABS: Urine Appearance Cloudy (CLEAR); Urine Color Yellow (Yellow)
[2020-01-27 12:58] LABS: Add Urine Microscopic? YES; Bilirubin Urine Neg (NEGATIVE); Blood Urine 3+ (Negative); Glucose Urine UA Norm (Normal); Ketones Urine Negative (Negative); Leukocyte Esterase Urine 2+ (Negative); Nitrate Urine Negative (Negative); Protein Urine 1+ (Negative); Urobilinogen Urine Norm (Negative); pH Urine 5 (5-7)
[2020-01-27 12:59] LABS: Add Urine Culture? Yes; Bacteria Urine 4+; RBC Urine 15-25 /hpf (0-2); Squamous Epithelial Cell Urine 25-40 (0-5); WBC Urine 40-55 /hpf (0-5)
[2020-01-27] MEDS: morphine 4 mg/mL SDV 1 mL 2 MG IVP (13:02)
--- NOTE | 2020-01-27 13:03 | ED_ITS ---
HPI - Abdominal Pain General: Chief Complaint: Abdominal Pain Stated Complaint: ABDOMINAL PAIN Time Seen by Provider: 01/27/20 10:47 History of Present Illness: HPI narrative: 84-year-old female presents with abdominal pain that began this morning, she recently had surgery. She had an exploratory laparotomy for possible perforated viscus by Dr. Carter. She comes in today complaining of abdominal pain and cramping she is mildly distended. She has been very nauseous she denies any hematochezia or melena. No report of fever. No respiratory symptoms. Associated Symptoms: Reports constipation and nausea; Denies chills, coffee ground emesis, GI cramping, diarrhea, dysuria, fever(s), heartburn, hematochezia, hematuria, hematemesis, melena, syncope and vomiting Review of Systems Const: Denies: fever, chills, body aches, fatigue, malaise or night sweats ENMT: Denies: throat pain, oral sores/lesions, dental pain, nasal discharge or nasal congestion Card: Denies: chest pain, palpitations, irregular heart rhythm, edema, syncope, shortness of breath on exertion, shortness of breath when lying down or leg pain with exertion Resp: Denies: shortness of breath, productive cough, non-productive cough or wheezing GI: Reports: abdominal pain, nausea and constipation; Denies: vomiting, vomiting blood, coffee grounds in vomit, difficulty swallowing, heartburn/indigestion, diarrhea, cramping, blood in stool or black tarry stool : Denies: flank pain, painful urination, urinary frequency, urinary urgency, urinary incontinence or blood in urine Musc: Denies: neck pain, back pain, extremity pain, extremity swelling, joint pain or joint swelling Skin/Breast: Denies: rash, itching or redness Neuro: Denies: headache, numbness in extremities, weakness in extremities, changes in sensation, lack of coordination, difficulty walking, frequent falls, dizziness, vertigo or confusion Psych: Denies: anxiety, depression, loss of interest, visual hallucinations, auditory hallucinations, suicidal ideation or homicidal ideation Endo: Denies: excessive urination, excessive thirst, tired all the time or cold intolerance Raul/Lymph: Denies: easy bruising, easy bleeding, petechiae, enlarged lymph nodes or tender lymph nodes PFSH ED PFSH: Social History Smoking and tobacco status: former smoker Alcohol intake: never Household members: spouse Housing: House Physical Exam Const: GENERAL APPEARANCE: cooperative ORIENTATION/CONSCIOUSNESS: Yes oriented to person, Yes oriented to place and Yes oriented to time HENMT: COMMON NORMALS: normocephalic, head/scalp atraumatic, hearing grossly normal bilaterally, external ears normal, EAC's normal, TM's normal bilaterally, nasal mucous membranes and turbinates normal, moist oral mucous membranes and oropharynx normal HEAD & SCALP: normocephalic and atraumatic NOSE: nasal mucous membranes and turbinates normal EXTERNAL EAR: Yes external ears normal EXTERNAL AUDITORY CANAL: EAC's normal TYMPANIC MEMBRANE: TM's normal bilaterally Eye: COMMON NORMALS: PERRL, EOMs intact bilaterally, conjunctivae normal and no scleral icterus CONJUNCTIVA: Yes conjunctivae normal PUPIL: Yes PERRL Neck/C-Spine: COMMON NORMALS: full ROM, no lymphadenopathy, supple and no JVD Lymph: LYMPHATIC: no lymphadenopathy noted and no lymphedema noted Resp: COMMON NORMALS: normal respiratory effort, no retractions, no use of accessory muscles and clear to auscultation bilaterally AUSCULTATION: clear to auscultation bilaterally Cardio: COMMON NORMALS: no JVD, regular rate, regular rhythm and no murmurs RATE: regular rate RHYTHM: regular rhythm GI: COMMON NORMALS: soft to palpation and no hepatosplenomegaly AUSCULTATION: Yes normoactive bowel sounds PALPATION: Yes soft, No tender, No guarding and Yes no hepatosplenomegaly Extremity: COMMON NORMALS: normal to inspection, normal capillary refill, no clubbing, cyanosis or edema, no calf tenderness and no pedal edema Neuro: SENSORIUM/ORIENTATION: Yes oriented to person, Yes oriented to place and Yes oriented to time Skin: COMMON NORMALS: no rashes or lesions noted GENERAL SKIN EXAM: no rashes or lesions noted Course Vital Signs: Vital signs: Vital Signs Pulse Rate 68 01/27/20 17:04 Respiratory Rate 15 01/27/20 17:04 Blood Pressure 88/53 01/27/20 17:04 Pulse Oximetry 98 01/27/20 17:04 MDM - Abdominal Pain MDM Narrative: Medical decision making narrative: Patient disimpacted at the bedside also attempted enema. She has had some relief of her symptoms in his past fair amount of stool will go ahead and discharge her. Increase her lactulose. Lab Data: Attestation: I reviewed the patient's lab results. Labs: Lab Results 01/27/20 01/27/20 01/27/20 Range/Units 11:05 11:05 12:39 WBC 8.6 (4.0-10.0) 10^3/ uL RBC 3.66 L (4.1-5.3) 10^6/u L Hgb 10.8 L (11.5-15.3) g/dL Hct 34.7 L (37.0-47.0) % MCV 94.8 (81-99) fL MCH 29.5 (28.0-34.0) pg MCHC 31.1 (30.0-36.0) g/dL RDW 14.9 (12.1-15.1) % Plt Count 353 (130-400) 10^3/c mm MPV 10.1 (7.4-10.4) fL Neut % (Auto) 79.9 % Lymph % (Auto) 13.1 % Nye % (Auto) 5.1 % Eos % (Auto) 1.3 % Baso % (Auto) 0.3 % Neut # (Auto) 6.9 (1.8-7.7) 10^3/u L Lymph # (Auto) 1.1 (0.8-4.8) 10^3/u L Nye # (Auto) 0.4 (0.2-0.9) 10^3/u L Eos # (Auto) 0.1 (0.0-0.8) 10^3/u L Baso # (Auto) 0.0 (0.0-0.1) 10^3/u L Nucleated RBC % (a uto) 0 % Nucleated RBCs # 0.0 /100WBC Sodium 139 (136-145) mmol/L Potassium 3.8 (3.5-5.1) mmol/L Chloride 101 (98-107) mmol/L Carbon Dioxide 23 (22-29) mmol/L Anion Gap 18.8 (5-19) BUN 22 H (6-20) mg/dL Creatinine 0.8 (0.5-0.9) mg/dL GFR Calculation 77.9 L (90-130) mL/min Glucose 113 (65-115) mg/dL Calculated Osmolal ity 285 (285-295) mOsm/k g Calcium 9.7 (8.5-10.5) mg/dL Total Bilirubin 0.2 (0.15-1.2) mg/dL AST 18 (0-32) U/L ALT 14 (0-33) U/L Alkaline Phosphata se 91 (35-105) IU/L Total Protein 7.6 (6.6-8.7) g/dL Albumin 4.0 (3.5-5.2) g/dL Globulin 3.6 (1.3-4.6) g/dL Lipase 16 (13-60) U/L Urine Color Yellow (Yellow) Urine Appearance Cloudy (CLEAR) Urine pH 5 (5-7) Ur Specific Gravit y 1.020 (1.005-1.030) Urine Protein 1+ H (Negative) Urine Glucose (UA) Norm (Normal) Urine Ketones Negative (Negative) Urine Blood 3+ H (Negative) Urine Nitrate Negative (Negative) Urine Bilirubin Neg (NEGATIVE) Urine Urobilinogen Norm (Negative) mg/dL Ur Leukocyte Maggi ase 2+ H (Negative) Urine RBC 15-25 H (0-2) /hpf Urine WBC 40-55 H (0-5) /hpf Ur Squamous Epith Cells 25-40 H (0-5) Urine Bacteria 4+ H (NONE) Imaging Data ^: CT Abd/Pel: Radiologist's impression: COMPARISON: 01/06/2020, 12/18/2019 Lower thorax: Dependent changes posteriorly. No pneumonia. Heart is normal size. No hiatal hernia. Liver/biliary system: Normal size with no intrahepatic dilatation. Gallbladder: Normal. No gallstones or wall thickening. No pericholecystic fluid. Pancreas: Normal. Spleen: Normal. Adrenal glands: Normal RIGHT adrenal gland. LEFT adrenal nodule measuring 12 x 10 mm has been previously described with no increase in size. Right kidney: Normal size kidney with normal enhancement no obstruction. There is a small extrarenal pelvis which is stable. Left kidney: Normal size kidney with an extrarenal pelvis which is unchanged. No obstruction. Aorta: Mild atherosclerosis. Normal variant celiac axis. Lymphadenopathy: None. Free fluid: There is a very small amount of free fluid in the pelvis. No definite free air is identified on today's study. There is a small outpouching of air from the hepatic flexure which I believe is still contained within the GI tract. This is seen on image 38 of series 2. GI tract: Numerous surgical clips are now noted over the fundus of the stomach. Marked dilatation of the stomach with food products. There is colonic distention with fluid and fecal material. Severe constipation and dilated, distended rectum measuring up to 7.1 cm in diameter. No obstruction. The appendix is normal. Abdominal wall: Unremarkable abdominal wall. No hernia. Pelvis: Dumont catheter in a nondistended urinary bladder. Again noted are long- term stability of bilateral cystic masses. Bones: Unremarkable. CT/CT abdomen pelvis w con* [id number] IMPRESSION: 1. Marked fluid fecal distention of the colon with marked dilatation of the rectum due to inspissation. 2. New postsurgical changes involving the stomach since 01/06/2020. 3. No definite free air is identified on today's study. 4. Stable LEFT adrenal adenoma. Dictated By:Tameka Miles DO Discharge Plan Discharge Patient Disposition: Home, Self-Care Clinical Impression: Constipation by delayed colonic transit Condition: Stable Prescriptions: No Action Senna Lax 8.6 mg Tablet 17.2 mg PO BEDTIME Qty: 30 RF: 0 Miralax 17 gram Powder In Packet 17 g PO DAILY Qty: 30 RF: 0 hydrocodone-acetaminophen 5-325 mg Tablet 1 tab PO Q6H PRN (Reason: Moderate To Severe Pain) Qty: 30 RF: 0 docusate sodium 100 mg Capsule 100 mg PO BID Qty: 60 RF: 0 lactulose 20 gram/30 mL Solution 10 g PO DAILY Qty: 300 RF: 0 ampicillin 500 mg capsule 500 mg PO QID Qty: 40 RF: 0 Protonix 40 mg tablet,delayed release (DR/EC) 40 mg PO DAILY 30 Days Qty: 30 RF: 2 Zofran 4 mg tablet 4 mg PO Q8H Qty: 15 RF: 0 Discharge Orders: Discharge Order (Routine); Ordered 01/27/20 Ordered By: Devin Witt Referrals: [id number] [Other] Cade Castaneda MD [Primary Care Provider] - Discharge Diet: Usual diet Discharge Activity: Resume usual activity Discharge Date/Time: 01/27/20 18:15 Coding Level of Care Code ED 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
[2020-01-27] MEDS: acetaminophen 500 mg Tablet 1000 MG PO (18:16)
== END 2020-01-27 18:15 | disposition home or self-care (01) ==
PROVIDERS: Emergency Provider Family Medicine; Family Provider Psychiatry & Neurology Neurology; PCP Family Medicine
DX: K59.01 Slow transit constipation (principal); Z87.891 Personal history of nicotine dependence; Z96.0 Presence of urogenital implants; Z98.890 Other specified postprocedural states
CPT/HCPCS: 12345; 51702; 74177; 80053; 81001; 83690; 85025; 87077; 87086; 87186; 96360; 96361; 96374; 96375; 99283; 99284; J2270; J2405; J7030; Q9967

== ENCOUNTER 2020-02-13 15:53 | Outpatient (CLI) | payer MEDICARE, SELFPAY ==
[2020-02-13 20:20] LABS: Urine Appearance SL Hazy (CLEAR); Urine Color Yellow (Yellow)
[2020-02-13 20:21] LABS: Add Urine Microscopic? YES; Bilirubin Urine Neg (NEGATIVE); Blood Urine Neg (Negative); Glucose Urine UA Norm (Normal); Ketones Urine Negative (Negative); Leukocyte Esterase Urine 1+ (Negative); Nitrate Urine Negative (Negative); Protein Urine Neg (Negative); Sulfosalicylic Acid Urine Negative (Negative); Urobilinogen Urine Norm (Negative); pH Urine 8 (5-7)
[2020-02-13 20:22] LABS: Add Urine Culture? Yes; Bacteria Urine 1+; Squamous Epithelial Cell Urine 0-4 (0-5)
== END 2020-02-13 15:54 | disposition home or self-care (01) ==
LOC: LAB 15:54
PROVIDERS: Family Provider Psychiatry & Neurology Neurology; PCP Family Medicine; Visit Provider Family Medicine
DX: N12 Tubulo-interstitial nephritis, not specified as acute or chronic (principal)
CPT/HCPCS: 81001; 87077; 87086; 87186

== ENCOUNTER 2020-02-16 13:18 | Emergency (ER) | payer MEDICARE, SELFPAY ==
[2020-02-16 13:24] VITALS: BP 109/80; PULSE 76; RESP 18; TEMP 36.7; O2SAT 98; BMI 20.5
--- NOTE | 2020-02-16 13:36 | W.ED.EAR ---
HPI - Ear Problem General: Chief complaint: Ear Stated complaint: bilat ear pain, urinary pain Time Seen by Provider: 02/16/20 13:30 History of Present Illness: HPI Narrative: 45 yo PFSH ED PFSH: Social History Smoking and tobacco status: never smoked Alcohol intake: never Household members: spouse Housing: House Course Vital Signs: Vital signs: Vital Signs Temperature 98.0 F 02/16/20 13:24 Pulse Rate 76 02/16/20 13:24 Respiratory Rate 18 02/16/20 13:24 Blood Pressure 109/80 02/16/20 13:24 Pulse Oximetry 98 02/16/20 13:24 Discharge Plan Discharge Prescriptions: No Action Senna Lax 8.6 mg Tablet 17.2 mg PO BEDTIME Qty: 30 RF: 0 Miralax 17 gram Powder In Packet 17 g PO DAILY Qty: 30 RF: 0 hydrocodone-acetaminophen 5-325 mg Tablet 1 tab PO Q6H PRN (Reason: Moderate To Severe Pain) Qty: 30 RF: 0 docusate sodium 100 mg Capsule 100 mg PO BID Qty: 60 RF: 0 lactulose 20 gram/30 mL Solution 10 g PO DAILY Qty: 300 RF: 0 ampicillin 500 mg capsule 500 mg PO QID Qty: 40 RF: 0 Protonix 40 mg tablet,delayed release (DR/EC) 40 mg PO DAILY 30 Days Qty: 30 RF: 2 Zofran 4 mg tablet 4 mg PO Q8H Qty: 15 RF: 0 Coding Level of Care Code ED Human Services Care Specialist for [facility]
--- NOTE | 2020-02-16 14:08 | W.ED.GENADLT ---
HPI - General Adult General: Chief complaint: Ear Stated complaint: bilat ear pain, urinary pain Time Seen by Provider: 02/16/20 13:30 Source: patient Mode of arrival: ambulatory Limitations: no limitations History of Present Illness: HPI narrative: Patient is a 45-year-old female who presents to ED today with complaints of bilateral ear pain over the past 3 days. She does not describe any ringing of the ears or hearing loss. She has not noticed any discharge or drainage from the ears. She is not complaining of nasal discharge/congestion/sinus pain. She has no previous history of ear infections. She does not complain of a headache, lightheadedness, dizziness, visual changes. She also tells me that the other day home health told her that her urine smelled funny . They apparently tested this for UTI but she does not know the results. 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 She complains of nausea without vomiting. Onset (ago): day(s) Location: lower extremity (ears) Relieving factors: none Exacerbating factors: none Associated symptoms: Deny chest pain, confusion, dyspnea, headache(s), nausea, palpitations, syncope or vomiting Review of Systems Const: Denies: fever, chills, body aches or fatigue Eyes: Denies: change in vision, blurry vision, photophobia, eye discomfort or eye discharge ENMT: Reports: ear pain; Denies: throat pain, enlarged tonsils, painful swallowing, mouth pain, swelling of lips/tongue, oral sores/lesions, ear discharge, tinnitus, disequilibrium, nasal discharge, nasal congestion, nasal obstruction, nose bleeds, post nasal drip or facial/sinus pain Card: Denies: chest pain, palpitations, irregular heart rhythm, edema, swelling of feet/ankles, lightheadedness, syncope, pre-syncope, shortness of breath on exertion or shortness of breath when lying down Resp: Denies: shortness of breath, productive cough or non-productive cough GI: Denies: abdominal pain, nausea, vomiting or diarrhea : Reports: other (urine odor); Denies: flank pain, decreased urine ouput, blood in urine, genital lesion, genital itching, vaginal odor, vaginal bleeding, vaginal discharge or pelvic pain Musc: Denies: neck pain or back pain Neuro: Denies: headache, numbness in extremities, weakness in extremities, changes in sensation, lack of coordination, difficulty walking, dizziness, vertigo or confusion All/Imm: Denies: facial swelling or seasonal allergies PFSH ED PFSH: Social History Smoking and tobacco status: never smoked Alcohol intake: never Household members: spouse Housing: House Physical Exam Const: COMMON NORMALS: no apparent distress, average body habitus, oriented x3, no limitations, healthy appearing, alert and well nourished HENMT: COMMON NORMALS: normocephalic, head/scalp atraumatic, hearing grossly normal bilaterally, external ears normal, EAC's normal, external nose normal, nasal mucous membranes and turbinates normal, moist oral mucous membranes and oropharynx normal HEAD & SCALP: normocephalic and atraumatic FACE & SINUS: normal facial exam and sinuses nontender NOSE: external nose normal and nasal mucous membranes and turbinates normal EXTERNAL EAR: Yes external ears normal EXTERNAL AUDITORY CANAL: EAC's normal TYMPANIC MEMBRANE: TM abnormal (erythema to superior aspect of R TM; serous fluid behind left TM) THROAT: posterior oropharynx normal, tonsils normal and uvula midline Resp: COMMON NORMALS: normal respiratory effort and clear to auscultation bilaterally AUSCULTATION: clear to auscultation bilaterally Cardio: COMMON NORMALS: regular rate and regular rhythm RATE: regular rate RHYTHM: regular rhythm GI: COMMON NORMALS: normal to inspection, nondistended, normoactive bowel sounds, soft to palpation, non-tender, no hepatosplenomegaly and no masses PALPATION: Yes soft and Yes no hepatosplenomegaly : COMMON NORMALS: Yes no CVA tenderness BLADDER/KIDNEY EXAM: Yes catheter in place Catheter type (Female): urethral and Yes no CVA tenderness OTHER: alfaro seems to be draining okay; small amount of yellow urine in bag Back/Pelvis: COMMON NORMALS: no CVA tenderness OTHER: 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; there is no surrounding redness, no drainage, no odor; states she is having this dressed daily by her and also has home health Extremity: COMMON NORMALS: normal to inspection Neuro: COMMON NORMALS: oriented x3 SENSORIUM/ORIENTATION: Yes alert Skin: COMMON NORMALS: no rashes or lesions noted GENERAL SKIN EXAM: no rashes or lesions noted Course Vital Signs: Vital signs: Vital Signs Temperature 98.0 F 02/16/20 13:24 Pulse Rate 67 02/16/20 16:15 Respiratory Rate 16 02/16/20 16:15 Blood Pressure 93/58 02/16/20 16:15 Pulse Oximetry 97 02/16/20 16:15 MDM - General Adult MDM Narrative: Medical decision making narrative: pt has UTI; her last two cultures grew E.Coli sensitive to Cipro so will place her on this; she needs to follow up with PCP early next week for re-evaluation; close observation on symptoms and needs to return if she begins feeling unwell or running fevers Lab Data: Labs: Lab Results 02/16/20 02/16/20 02/16/20 Range/Units 14:32 14:32 14:50 WBC 5.2 (4.0-10.0) 10^3/ uL RBC 4.05 L (4.1-5.3) 10^6/u L Hgb 11.6 (11.5-15.3) g/dL Hct 38.1 (37.0-47.0) % MCV 94.1 (81-99) fL MCH 28.6 (28.0-34.0) pg MCHC 30.4 (30.0-36.0) g/dL RDW 14.5 (12.1-15.1) % Plt Count 293 (130-400) 10^3/c mm MPV 10.0 (7.4-10.4) fL Neut % (Auto) 61.0 % Lymph % (Auto) 25.2 % [place] % (Auto) 8.8 % Eos % (Auto) 4.2 % Baso % (Auto) 0.6 % Neut # (Auto) 3.2 (1.8-7.7) 10^3/u L Lymph # (Auto) 1.3 (0.8-4.8) 10^3/u L [place] # (Auto) 0.5 (0.2-0.9) 10^3/u L Eos # (Auto) 0.2 (0.0-0.8) 10^3/u L Baso # (Auto) 0.0 (0.0-0.1) 10^3/u L Nucleated RBC % (a uto) 0 % Nucleated RBCs # 0.0 /100WBC Sodium 141 (136-145) mmol/L Potassium 4.0 (3.5-5.1) mmol/L Chloride 106 (98-107) mmol/L Carbon Dioxide 24 (22-29) mmol/L Anion Gap 15.0 (5-19) BUN 20 (6-20) mg/dL Creatinine 1.0 H (0.5-0.9) mg/dL GFR Calculation 60.0 L (90-130) mL/min Glucose 113 (65-115) mg/dL Calculated Osmolal ity 289 (285-295) mOsm/k g Calcium 9.3 (8.5-10.5) mg/dL Total Bilirubin 0.2 (0.15-1.2) mg/dL AST 20 (0-32) U/L ALT 19 (0-33) U/L Alkaline Phosphata se 95 (35-105) IU/L Total Protein 8.2 (6.6-8.7) g/dL Albumin 3.8 (3.5-5.2) g/dL Globulin 4.4 (1.3-4.6) g/dL Urine Color Yellow (Yellow) Urine Appearance Turbid (CLEAR) Urine pH 7 (5-7) Ur Specific Gravit y 1.010 (1.005-1.030) Urine Protein Trace (Negative) Urine Glucose (UA) Norm (Normal) Urine Ketones Negative (Negative) Urine Blood 2+ H (Negative) Urine Nitrate Negative (Negative) Urine Bilirubin Neg (NEGATIVE) Urine Urobilinogen Norm (Negative) mg/dL Ur Leukocyte Maggi ase 2+ H (Negative) Urine RBC 25-40 H (0-2) /hpf Urine WBC 25-40 H (0-5) /hpf Ur Squamous Epith Cells 0-4 H (0-5) Calcium Oxalate Cr ystal 5-10 H /hpf Triple Phos [place] ls 0-4 H /hpf Amorphous Sediment 2+ Urine Bacteria 2+ H (NONE) Discharge Plan Discharge Patient Disposition: Home, Self-Care Clinical Impression: Otalgia, bilateral UTI (urinary tract infection) Qualifiers: Urinary tract infection type: acute cystitis Hematuria presence: with hematuria Qualified Code(s): N30.01 - Acute cystitis with hematuria Condition: Stable Prescriptions: New Cipro 500 mg tablet 500 mg PO BID 7 Days Qty: 14 RF: 0 No Action sennosides [Senna Lax] 8.6 mg Tablet 17.2 mg PO BEDTIME Qty: 30 RF: 0 polyethylene glycol 3350 [Miralax] 17 gram Powder In Packet 17 g PO DAILY Qty: 30 RF: 0 docusate sodium 100 mg Capsule 100 mg PO BID Qty: 60 RF: 0 lactulose 20 gram/30 mL Solution 10 g PO DAILY Qty: 300 RF: 0 pantoprazole [Protonix] 40 mg tablet,delayed release (DR/EC) 40 mg PO DAILY 30 Days Qty: 30 RF: 2 gabapentin 300 mg Capsule 300 mg PO TID RF: 0 baclofen 5 mg Tablet 5 mg PO TID PRN (Reason: Pain) RF: 0 Zofran 4 mg tablet 4 mg PO Q8H PRN (Reason: Nausea) RF: 0 Discharge Orders: Discharge Order (Routine); Ordered 02/16/20 Ordered By: Yesenia Barajas Referrals: [facility] [Other] Cade Castaneda MD [Primary Care Provider] - Activity Restrictions/Additional Instructions: Follow-up with your primary care provider early next week for reevaluation. Return to the emergency department for any worsening symptoms or fevers greater than 100.4. Coding Level of Care Code ED [employer] for [employer] Fwd Exam Comprehensive
[2020-02-16 14:39] LABS: Basophils % 0.6 %; Eosinophils # 0.2 10^3/uL (0.0-0.8); Eosinophils % 4.2 %; Hematocrit 38.1 % (37.0-47.0); Hemoglobin 11.6 g/dL (11.5-15.3); Lymphocytes # 1.3 10^3/uL (0.8-4.8); Lymphocytes % 25.2 %; Mean Corpuscular HGB Conc 30.4 g/dL (30.0-36.0); Mean Corpuscular Hemoglobin 28.6 pg (28.0-34.0); Mean Corpuscular Volume 94.1 fL (81-99); Monocytes # 0.5 10^3/uL (0.2-0.9); Monocytes % 8.8 %; Neutrophils # 3.2 10^3/uL (1.8-7.7); Nucleated Red Blood Cells % 0 %; Platelet Count 293 10^3/cmm (130-400); Red Blood Count 4.05 10^6/uL (4.1-5.3); Red Cell Distribution Width 14.5 % (12.1-15.1); White Blood Count 5.2 10^3/uL (4.0-10.0)
[2020-02-16] MEDS: ondansetron 2 mg/ML SDV 2 mL 4 MG IM (14:43)
[2020-02-16 14:45] VITALS: BP 91/62; PULSE 83; RESP 16; O2SAT 97
[2020-02-16 14:55] LABS: Alanine Aminotransferase 19 U/L (0-33); Albumin Level 3.8 g/dL (3.5-5.2); Alkaline Phosphatase 95 IU/L (35-105); Aspartate Amino Transferase 20 U/L (0-32); Blood Urea Nitrogen 20 mg/dL (6-20); Calcium 9.3 mg/dL (8.5-10.5); Carbon Dioxide 24 mmol/L (22-29); Chloride 106 mmol/L (98-107); Globulin 4.4 g/dL (1.3-4.6); Glucose 113 mg/dL (65-115); Osmolality Calculated 289 mOsm/kg (285-295); Sodium 141 mmol/L (136-145); Total Bilirubin 0.2 mg/dL (0.15-1.2); Total Protein 8.2 g/dL (6.6-8.7)
[2020-02-16 15:12] LABS: Add Urine Microscopic? YES; Bilirubin Urine Neg (NEGATIVE); Blood Urine 2+ (Negative); Glucose Urine UA Norm (Normal); Ketones Urine Negative (Negative); Leukocyte Esterase Urine 2+ (Negative); Nitrate Urine Negative (Negative); Protein Urine Trace (Negative); Urine Appearance Turbid (CLEAR); Urine Color Yellow (Yellow); Urobilinogen Urine Norm (Negative); pH Urine 7 (5-7)
[2020-02-16 15:13] LABS: Bacteria Urine 2+; RBC Urine 25-40 /hpf (0-2); Squamous Epithelial Cell Urine 0-4 (0-5); WBC Urine 25-40 /hpf (0-5)
[2020-02-16 15:14] LABS: Add Urine Culture? Yes; Amorphous Sediment Urine 2+; Triple Phosphate Crystal Urine 0-4 /hpf
[2020-02-16 15:52] VITALS: BP 109/71; PULSE 67; RESP 16; O2SAT 98
[2020-02-16 16:15] VITALS: BP 93/58; PULSE 67; RESP 16; O2SAT 97
[2020-02-16 18:15] VITALS: BP 100/71; PULSE 71; RESP 16; O2SAT 96
[2020-02-16] MEDS: acetaminophen 500 mg Tablet PO (20:07)
[2020-02-16 20:11] VITALS: BP 126/83; PULSE 74; RESP 16; O2SAT 97
--- NOTE | 2020-02-17 10:25 | DCPLANNER ---
Late entry - patient seen in ED on 02.16.20 [facility] from [facility] called nurse outreach case manager about patient. newspaper manager was asked to speak with patient about calls patient has made to Dalila at night and left voicemails stating that she the patient wanted out of the house that she did not feel safe at home. Dalila stated that she has not been able to reach patient during the day when she tried to call patient back. newspaper manager spoke with patient, she stated to nurse outreach case manager that she did not want to leave her home and that everything was fine in her home. newspaper manager called Dalila at [facility] about patient and told her what patient had reported to nurse outreach case manager. Dalila asked to speak with patient, nurse outreach case manager transferred call into patients room, held phone for patient while speaking with Dalila. Dalila and patient spoke for about 45 minutes. Dalila then spoke with nurse outreach case manager about patient, Dalila was going to call different alf facilities to see if they would accept patient. Dalila called nurse outreach case manager back and stated that she called [facility] which is where patient would like to go. Dalila stated that the long term is doing an asset research on patient to see if there was any assets that would be a pay source. Dalila stated that it would be next week before the long term would know if they would be able to accept patient. newspaper manager informed patient of this, and stated that patient would be going home at this time, and that patient would need to call Dalila next week to see if Dalila had heard from the long term on if they would be able to accept patient or not. Patient stated that she would call Dalila next week. newspaper manager informed the ED physician and nurse that patient would be going home at this time. Later nurse outreach case manager was told that the home health company that patient uses was fired by patients . newspaper manager was asked to work on home health for patient. newspaper manager spoke with patient to ask patient what home health company that patient would like to use. Patient stated that she would like to use who she used before. newspaper manager read off the names of the different companies, patient stated that she thought that it was either [facility] or [facility], but she was not for sure. newspaper manager would have to do this on 02.17.20 due to the time of day. 02.17.20 newspaper manager told patient that she would call both and see which one patient used in the past and give that company the referral. newspaper manager called [facility], which did service patient in the past. newspaper manager made the referral to [facility], and faxed patients paperwork to the company. newspaper manager was told that they would accept patient. newspaper manager did call Dalila with senior services and informed her that nurse outreach case manager was working on a referral to home health.
== END 2020-02-16 20:30 | disposition home or self-care (01) ==
PROVIDERS: Emergency Provider Physician Assistant; Family Provider Psychiatry & Neurology Neurology; PCP Family Medicine
DX: H92.03 Otalgia, bilateral (principal); N30.01 Acute cystitis with hematuria
CPT/HCPCS: 12345; 36415; 80053; 81001; 85025; 87077; 87086; 87186; 96372; 99282; 99283; A9270; J2405

== ENCOUNTER 2020-03-04 09:35 | Inpatient (IN) | payer MEDICARE, SELFPAY ==
[2020-03-04] VITALS (8 sets, daily range): BP systolic 91–129; BP diastolic 54–87; PULSE 64–75; RESP 12–18; TEMP 36.4–36.6; O2SAT 97–100; BMI 20.5
--- NOTE | 2020-03-04 09:44 | US_ITS ---
WS: [id number] ABDOMINAL ULTRASOUND REASON FOR EXAM: Abdominal Pain TECHNIQUE: Grayscale and Doppler ultrasound examination of the abdomen. FINDINGS: Pancreas: Within normal limits Abdominal aorta and IVC: Within normal limits. Liver: Liver measures 14.1 cm in length. Normal hepatopedal portal circulation. Gallbladder: Gallbladder wall thickness measures 0.2 cm. No stones identified. Wall the gallbladder n ormal 0.18 cm. Bilaterally measures 0.20 cm. Left kidney: Left kidney poorly seen due to overriding bowel gas. Right kidney: Right kidney measures 9.0 cm x 3.2 cm x 4.8 cm. No hydronephrosis no stones. Cortex aline sured 1.10 cm. Spleen: Spleen measures 9.34 cm US/US abdomen complete* [id number] IMPRESSION: Inconclusive evaluation left kidney overriding gas and poor positioning of the patient The remaining abdomen essentially normal.
--- NOTE | 2020-03-04 09:52 | ED_ITS ---
HPI - Abdominal Pain General: Chief Complaint: Abdominal Pain Stated Complaint: ABD PAIN POST OP Time Seen by Provider: 03/04/20 09:36 History of Present Illness: HPI narrative: Rosanne is a very nice 45-year-old female who comes in complaining of upper abdominal pain around 1 of her abdominal incisions. She states the pain began today and is sharp in nature. She has had dry heaves but has been unable to vomit any fluid. She denies any diarrhea or constipation. She denies any fever or chills. Patient has a chronic indwelling Dumont catheter. 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 She is concerned this has something to do with her surgery which was performed for a perforated ulcer back in December of this year. Associated Symptoms: Denies chills, coffee ground emesis, constipation, GI cramping, diarrhea, dysuria, fever(s), hematochezia, hematuria, hematemesis, melena, syncope and vomiting Review of Systems General: Reports: other (negative unless marked) Const: Denies: fever, chills, body aches, fatigue, malaise or diaphoresis Eyes: Denies: change in vision or blurry vision ENMT: Denies: throat pain, painful swallowing, hoarseness, ear pain, ear discharge, Change in hearing or nasal discharge Card: Denies: chest pain, palpitations, irregular heart rhythm, syncope, pre- syncope, shortness of breath on exertion or shortness of breath when lying down Resp: Denies: shortness of breath, productive cough, non-productive cough, wheezing, coughing up blood or chest congestion GI: Denies: vomiting, vomiting blood, coffee grounds in vomit, diarrhea, constipation, cramping, blood in stool or black tarry stool : Denies: flank pain, painful urination, urinary frequency, urinary urgency, decreased urine ouput, urinary incontinence or blood in urine Musc: Denies: neck pain, back pain, extremity pain, extremity swelling, joint pain, joint swelling, joint warmth or joint stiffness Skin/Breast: Denies: rash, skin tenderness or yellow skin Neuro: Denies: headache Endo: Denies: excessive thirst, tired all the time, cold intolerance, exces sive sweating, flushing or hot flashes Raul/Lymph: Denies: easy bruising, easy bleeding, petechiae or enlarged lymph nodes All/Imm: Denies: hives, throat swelling, tongue swelling, facial swelling or acute wheezing PFSH ED PFSH: Medical History Chronic indwelling Dumont catheter Neurogenic bladder Chronic indwelling catheter at this point Post-traumatic quadriplegia Recurrent sepsis due to urinary tract infection Surgical History H/O cystoscopy H/O Spinal surgery History of hysterectomy Family History Other Hypertension Social History Smoking and tobacco status: never smoked Alcohol intake: never Household members: spouse Housing: House Physical Exam Const: COMMON NORMALS: no apparent distress, oriented x3, no limitations, healthy appearing, alert and well nourished EXAM LIMITATIONS: no altered mental status GENERAL APPEARANCE: cooperative, well kempt and well developed ORIENTATION/CONSCIOUSNESS: Yes awake, Yes oriented to person, Yes oriented to place and Yes oriented to time HENMT: COMMON NORMALS: normocephalic, head/scalp atraumatic, hearing grossly normal bilaterally, external ears normal, EAC's normal, external nose normal and moist oral mucous membranes HEAD & SCALP: normal to inspection, normocephalic and atraumatic FACE & SINUS: normal facial exam and face symmetric NOSE: external nose normal and nares normal EXTERNAL EAR: Yes external ears normal EXTERNAL AUDITORY CANAL: EAC's normal MOUTH: oral and palatal mucosa normal and tongue normal Eye: COMMON NORMALS: PERRL, EOMs intact bilaterally, conjunctivae normal and no scleral icterus GENERAL EYE: normal appearance of both eyes and normal light reflex CONJUNCTIVA: Yes conjunctivae normal SCLERA: sclerae normal CORNEA: Yes corneas normal PUPIL: Yes PERRL DIRECT OPHTHALMOSCOPY: Yes normal light reflex Neck/C-Spine: COMMON NORMALS: full ROM, no lymphadenopathy, supple, no meningeal signs and no JVD GENERAL: Yes normal visual inspection and Yes trachea midline CERVICAL SPINE: Yes cervical ROM normal Chest: COMMONS NORMALS: inspection of chest normal and palpation of chest normal Resp: COMMON NORMALS: normal respiratory effort, no retractions, no use of accessory muscles and clear to auscultation bilaterally EFFORT & INSPECTION: Yes able to speak in complete sentences AUSCULTATION: clear to auscultation bilaterally Cardio: COMMON NORMALS: no JVD, regular rate, regular rhythm, S1 normal heart sound, S2 normal heart sound, no gallops, no clicks, no murmurs and no rub JUGULAR VENOUS DISTENTION: no JVD RATE: regular rate RHYTHM: regular rhythm HEART SOUNDS: S1 normal and S2 normal GI: COMMON NORMALS: soft to palpation, no hepatosplenomegaly and no masses PALPATION: Yes soft, Yes tender Details: LUQ and RUQ, No guarding, No rigid and Yes no hepatosplenomegaly : COMMON NORMALS: Yes no CVA tenderness BLADDER/KIDNEY EXAM: Yes no CVA tenderness Back/Pelvis: COMMON NORMALS: no CVA tenderness, thoracic and lumbar spine normal to inspection, no thoracic nor lumbar tenderness and thoraco-lumbar ROM normal Extremity: COMMON NORMALS: normal to inspection, full ROM, normal capillary refill, no joint enlargement, no clubbing, cyanosis or edema and no calf tenderness Neuro: COMMON NORMALS: oriented x3 and CN's II-XII intact bilaterally SENSORIUM/ORIENTATION: Yes alert, Yes oriented to person, Yes oriented to place and Yes oriented to time MENINGEAL SIGNS: Yes no meningeal signs CRANIAL NERVES: Yes CN normal except as noted SPEECH: speech normal Psych: COMMON NORMALS: mental status grossly normal, thought process normal, cooperative, affect normal, speech normal and activity/motor behavior normal APPEARANCE: Yes well kempt SPEECH: Yes normal speech THOUGHT PROCESS: normal thought process Skin: COMMON NORMALS: skin turgor normal, no jaundice, no petechiae and no mottling NARRATIVE SKIN EXAM: Red blanching areas under right axilla GENERAL SKIN EXAM: turgor normal Course Vital Signs: Vital signs: Vital Signs Temperature 97.5 F L 03/04/20 09:35 Pulse Rate 75 03/04/20 09:35 Respiratory Rate 12 03/04/20 10:53 Blood Pressure 129/87 03/04/20 09:35 Pulse Oximetry 100 03/04/20 09:35 MDM - Abdominal Pain MDM Narrative: Medical decision making narrative: The case was reviewed with Dr. Carter. The patient has incomplete quadriplegia but is still complaining of pain in the upper abdomen. Her CT scan shows a questionable air in the wall of the stomach and thickened wall as well. I am concerned her abdominal exam may not be as reliable with her quadriplegia. I reviewed the case with him and he agrees to consult but would like the hospitalist to admit and he will follow her clinically. He would like a repeat CT scan with oral contrast only. He will evaluate further from there. The case was reviewed with Dr. Cristobal, he will admit the patient but defer all decisions about surgery and abdominal work- up to Dr. Carter. Lab Data: Attestation: I reviewed the patient's lab results. Labs: Lab Results 03/04/20 03/04/20 03/04/20 Range/Units 10:28 10:28 10:28 WBC 6.3 (4.0-10.0) 10^3/ uL RBC 4.47 (4.1-5.3) 10^6/u L Hgb 12.5 (11.5-15.3) g/dL Hct 41.8 (37.0-47.0) % MCV 93.5 (81-99) fL MCH 28.0 (28.0-34.0) pg MCHC 29.9 L (30.0-36.0) g/dL RDW 14.1 (12.1-15.1) % Plt Count 288 (130-400) 10^3/c mm MPV 10.5 H (7.4-10.4) fL Neut % (Auto) 72.5 % Lymph % (Auto) 20.4 % [place] % (Auto) 4.9 % Eos % (Auto) 1.4 % Baso % (Auto) 0.6 % Neut # (Auto) 4.6 (1.8-7.7) 10^3/u L Lymph # (Auto) 1.3 (0.8-4.8) 10^3/u L [place] # (Auto) 0.3 (0.2-0.9) 10^3/u L Eos # (Auto) 0.1 (0.0-0.8) 10^3/u L Baso # (Auto) 0.0 (0.0-0.1) 10^3/u L Nucleated RBC % (a uto) 0 % Nucleated RBCs # 0.0 /100WBC Sodium 139 (136-145) mmol/L Potassium 4.1 (3.5-5.1) mmol/L Chloride 103 (98-107) mmol/L Carbon Dioxide 24 (22-29) mmol/L Anion Gap 16.1 (5-19) BUN 15 (6-20) mg/dL Creatinine 0.8 (0.5-0.9) mg/dL GFR Calculation 77.6 L (90-130) mL/min Glucose 98 (65-115) mg/dL Calculated Osmolal ity 284 L (285-295) mOsm/k g Calcium 9.3 (8.5-10.5) mg/dL Magnesium 2.1 (1.7-2.3) mg/dL Total Bilirubin 0.2 (0.15-1.2) mg/dL AST 18 (0-32) U/L ALT 12 (0-33) U/L Alkaline Phosphata se 75 (35-105) IU/L Troponin T Baselin e 11 H (0-10) ng/mL Troponin T 120 Min [place] (0-10) ng/mL Delta Troponin T (0-10) ABS# Total Protein 7.9 (6.6-8.7) g/dL Albumin 4.1 (3.5-5.2) g/dL Globulin 3.8 (1.3-4.6) g/dL Lipase 38 (13-60) U/L Urine Color (Yellow) Urine Appearance (CLEAR) Urine pH (5-7) Ur Specific Gravit y (1.005-1.030) Urine Protein (Negative) Urine Glucose (UA) (Normal) Urine Ketones (Negative) Urine Blood (Negative) Urine Nitrate (Negative) Urine Bilirubin (NEGATIVE) Urine Urobilinogen (Negative) mg/dL Ur Leukocyte Maggi ase (Negative) Urine RBC (0-2) /hpf Urine WBC (0-5) /hpf Ur Squamous Epith Cells (0-5) Ur Transition Epit h Cell /hpf Urine Bacteria (NONE) Urine Mucus 03/04/20 03/04/20 Range/Units 12:13 12:19 WBC (4.0-10.0) 10^3/ uL RBC (4.1-5.3) 10^6/u L Hgb (11.5-15.3) g/dL Hct (37.0-47.0) % MCV (81-99) fL MCH (28.0-34.0) pg MCHC (30.0-36.0) g/dL RDW (12.1-15.1) % Plt Count (130-400) 10^3/c mm MPV (7.4-10.4) fL Neut % (Auto) % Lymph % (Auto) % [place] % (Auto) % Eos % (Auto) % Baso % (Auto) % Neut # (Auto) (1.8-7.7) 10^3/u L Lymph # (Auto) (0.8-4.8) 10^3/u L [place] # (Auto) (0.2-0.9) 10^3/u L Eos # (Auto) (0.0-0.8) 10^3/u L Baso # (Auto) (0.0-0.1) 10^3/u L Nucleated RBC % (a uto) % Nucleated RBCs # /100WBC Sodium (136-145) mmol/L Potassium (3.5-5.1) mmol/L Chloride (98-107) mmol/L Carbon Dioxide (22-29) mmol/L Anion Gap (5-19) BUN (6-20) mg/dL Creatinine (0.5-0.9) mg/dL GFR Calculation (90-130) mL/min Glucose (65-115) mg/dL Calculated Osmolal ity (285-295) mOsm/k g Calcium (8.5-10.5) mg/dL Magnesium (1.7-2.3) mg/dL Total Bilirubin (0.15-1.2) mg/dL AST (0-32) U/L ALT (0-33) U/L Alkaline Phosphata se (35-105) IU/L Troponin T Baselin e (0-10) ng/mL Troponin T 120 Min [place] 10.18 H (0-10) ng/mL Delta Troponin T -0.82 L (0-10) ABS# Total Protein (6.6-8.7) g/dL Albumin (3.5-5.2) g/dL Globulin (1.3-4.6) g/dL Lipase (13-60) U/L Urine Color Yellow (Yellow) Urine Appearance Hazy A (CLEAR) Urine pH 5 (5-7) Ur Specific Gravit y 1.005 (1.005-1.030) Urine Protein Neg (Negative) Urine Glucose (UA) Norm (Normal) Urine Ketones Negative (Negative) Urine Blood Neg (Negative) Urine Nitrate Positive H (Negative) Urine Bilirubin Neg (NEGATIVE) Urine Urobilinogen Norm (Negative) mg/dL Ur Leukocyte Maggi ase 2+ H (Negative) Urine RBC None (0-2) /hpf Urine WBC 55-80 H (0-5) /hpf Ur Squamous Epith Cells 5-10 H (0-5) Ur Transition Epit h Cell 5-10 /hpf Urine Bacteria 3+ H (NONE) Urine Mucus 2+ Imaging Data ^: US: Radiologist's impression: [address] [address] Ultrasound Report Signed Patient: Rosanne Morales Unit #: [id number] : 1975 Age/Sex: 45 / F ADM Date: 03/04/20 Loc: ER Room/Bed: Attending Dr: Ordering Provider/Ordering MD: Abbey Gonzales DO Date of Service: 03/04/20 Procedure(s): US abdomen complete* [id number] Accession Number(s): [id number] Report Number: [id number] WS: [id number] ABDOMINAL ULTRASOUND REASON FOR EXAM: Abdominal Pain TECHNIQUE: Grayscale and Doppler ultrasound examination of the abdomen. FINDINGS: Pancreas: Within normal limits Abdominal aorta and IVC: Within normal limits. Liver: Liver measures 14.1 cm in length. Normal hepatopedal portal circulation. Gallbladder: Gallbladder wall thickness measures 0.2 cm. No stones identified. Wall the gallbladder normal 0.18 cm. Bilaterally measures 0.20 cm. Left kidney: Left kidney poorly seen due to overriding bowel gas. Right kidney: Right kidney measures 9.0 cm x 3.2 cm x 4.8 cm. No hydronephrosis no stones. Cortex measured 1.10 cm. Spleen: Spleen measures 9.34 cm US/US abdomen complete* [id number] IMPRESSION: Inconclusive evaluation left kidney overriding gas and poor positioning of the patient The remaining abdomen essentially normal. Dictated By: Noel Lemos DO Signed By: Noel Lemos DO Signed Date/Time: 03/04/20 1028 DD/ 1019 CT Abd/Pel: Radiologist's impression: [facility] [address] [place] [address] CT Scan Report Signed Patient: Rosanne Morales Unit #: [id number] : 1975 Age/Sex: 45 / F ADM Date: 03/04/20 Loc: ER Room/Bed: Attending Dr: Ordering Provider/Ordering MD: Abbey Gonzales DO Date of Service: 03/04/20 Procedure(s): CT abdomen pelvis w con* [id number] Accession Number(s): [id number] Report Number: [id number] WS: [id number] CT abdomen pelvis w con* [id number] REASON FOR EXAM: Abdominal Pain IV CONTRAST ADMINISTERED: Omnipaque 300, 95 cc TOTAL EXAM DLP: 911.[address] scans at [facility] use at least one of these dose optimi zation techniques: automated exposure control; mA and/or kV adjustment per patient size (includes targeted exams where dose is matched to clinical indication); or iterative reconstruction. FINDINGS: Comparisons were made to previous exam January 27, 2020. The lower lungs and mediastinum were normal. The stomach showed postop changes The stomach appears to be thickened wall. [place] are seen in the upper body fundus junction of the stomach. Small amount of air is seen in the subcutaneous tissues at this location but the actual ulcers not seen The liver was normal no deformities in the liver seen and there was no air under the diaphragms. The spleen measures 12.91 cm. The aorta inferior vena cava were normal. The left adrenal gland is found to be enlarged similar to previous exam measures 2.98 cm. The lateral right adrenal gland was normal. The gallbladder showed normal appearance no stones in the gallbladder were seen. Both kidneys appear to be of accident normal size or stones seen in the left kidney the largest stone measures 4.99 mm. The right kidney shows no definite stones are is mild extrarenal pelvises bilaterally but no obstructive changes. The anterior abdominal wall did not show areas. The large and small bowel today appear to be normal previous exam these were found to be dilated no longer dilated and normal in size. Small bowel appear to be normal. The pelvis shows a markedly thickened wall urinary bladder which is contracted the wall measured 10.396 mm and is consistent with a paralytic bladder. In the rectosigmoid area was normal. The lumbar spine and pelvis did not show fractures. We understand the. Patient is paraplegic. CT/CT abdomen pelvis w con* [id number] Impression: Postop changes are seen in the stomach and appears to be a small amount of air in the wall of the stomach but no perforations are seen. The stomach is thickened wall. Left adrenal adenoma unchanged since earlier exams Renal lithiasis left kidney The urinary bladder is thickened wall and contracted Dictated By: Noel Lemos DO Signed By: Noel Lemos DO Signed Date/Time: 03/04/20 1211 DD/ 1157 EKG Data ^: EKG 1: Attestation: I personally reviewed and interpreted this EKG as follows: EKG interpretation date: 03/04/20 EKG interpretation time: 11:04 Interpretation: Normal sinus rhythm at 63 beats a minute, no acute ST or T wave changes. EKG 2: Attestation: I personally reviewed and interpreted this EKG as follows: EKG interpretation date: 03/04/20 EKG interpretation time: 11:34 Interpretation: Normal sinus rhythm at 61 beats a minute, no acute ST-T wave changes. Discharge Plan Discharge Patient Disposition: Placed in Observation Admit Provider: Simon Huitron Clinical Impression: Abdominal pain Condition: Stable Coding Level of Care Code ED Suppression Crew Leader for Chg Fwd Exam Comprehensive
--- NOTE | 2020-03-04 09:52 | ECG_ITS ---
Measurements Intervals [place] Rate: 61 P: 1 MD: 134 QRS: 40 QRSD: 89 T: 69 QT: 454 QTc: 460 SINUS RHYTHM LOW QRS VOLTAGE IN PRECORDIAL LEADS [QRS DEFLECTION < 1.0 mV IN CHEST LEADS] POSSIBLE RIGHT VENTRICULAR CONDUCTION DELAY [RSR (QR) IN V1/V2] Compared to ECG 03/29/2019 14:13:03 Low QRS voltage now present Short MD interval no longer present Electronically Signed On 03-04-2020 20:04:52 CDT by Ellen Kincaid M.D. [email or web address]
[2020-03-04 10:33] LABS: Basophils % 0.6 %; Eosinophils # 0.1 10^3/uL (0.0-0.8); Eosinophils % 1.4 %; Hematocrit 41.8 % (37.0-47.0); Hemoglobin 12.5 g/dL (11.5-15.3); Lymphocytes # 1.3 10^3/uL (0.8-4.8); Lymphocytes % 20.4 %; Mean Corpuscular HGB Conc 29.9 g/dL (30.0-36.0); Mean Corpuscular Volume 93.5 fL (81-99); Mean Platelet Volume 10.5 fL (7.4-10.4); Monocytes # 0.3 10^3/uL (0.2-0.9); Monocytes % 4.9 %; Neutrophils # 4.6 10^3/uL (1.8-7.7); Neutrophils % 72.5 %; Nucleated Red Blood Cells % 0 %; Platelet Count 288 10^3/cmm (130-400); Red Blood Count 4.47 10^6/uL (4.1-5.3); Red Cell Distribution Width 14.1 % (12.1-15.1); White Blood Count 6.3 10^3/uL (4.0-10.0)
[2020-03-04 10:48] LABS: Alanine Aminotransferase 12 U/L (0-33); Albumin Level 4.1 g/dL (3.5-5.2); Alkaline Phosphatase 75 IU/L (35-105); Anion Gap 16.1 (5-19); Aspartate Amino Transferase 18 U/L (0-32); Blood Urea Nitrogen 15 mg/dL (6-20); Calcium 9.3 mg/dL (8.5-10.5); Carbon Dioxide 24 mmol/L (22-29); Chloride 103 mmol/L (98-107); Globulin 3.8 g/dL (1.3-4.6); Glomerular Filtration Rate 77.6 mL/min (90-130); Glucose 98 mg/dL (65-115); Lipase 38 U/L (13-60); Magnesium 2.1 mg/dL (1.7-2.3); Osmolality Calculated 284 mOsm/kg (285-295); Potassium 4.1 mmol/L (3.5-5.1); Sodium 139 mmol/L (136-145); Total Bilirubin 0.2 mg/dL (0.15-1.2); Total Protein 7.9 g/dL (6.6-8.7)
[2020-03-04 10:50] LABS: Troponin(5th) Baseline 11 ng/mL (0-10)
[2020-03-04] MEDS: morphine 4 mg/mL SDV 1 mL IVP ×3 (10:53→19:54)
[2020-03-04] MEDS: sodium chloride 0.9% 1,000 ML 999 ML IV (10:55)
[2020-03-04] MEDS: ondansetron 2 mg/ML SDV 2 mL 4 MG IVP (10:55)
--- NOTE | 2020-03-04 11:15 | CT_ITS ---
WS: [id number] CT abdomen pelvis w con* [id number] REASON FOR EXAM: Abdominal Pain IV CONTRAST ADMINISTERED: Omnipaque 300, 95 cc TOTAL EXAM DLP: 911.[address] scans at [facility] use at least one of these dose optimization techniques: automat ed exposure control; mA and/or kV adjustment per patient size (includes targeted exams where dose is matched to clinical indication); or iterative reconstruction. FINDINGS: Comparisons were made to previous exam January 27, 2020. The lower lungs and mediastinum were normal. The stomach showed postop changes The stomach appears to be thickened wall. [place] are seen in the upper body fundus junction of the stomach. Small amount of air is seen in the subcutaneous tissues at this location but the actual ulcers not seen The liver was normal no deformities in the liver seen and there was no air under the diaphragms. The spleen measures 12.91 cm. The aorta inferior vena cava were normal. The left adrenal gland is found to be enlarged similar to previous exam measures 2.98 cm. The lateral right adrenal gland was normal. The gallbladder showed normal appearance no stones in the gallbladder were seen. Both kidneys appear to be of accident normal size or stones seen in the left kidney the largest stone measures 4.99 mm. The right kidney shows no definite stones are is mild extrarenal pelvises bilatera lly but no obstructive changes. The anterior abdominal wall did not show areas. The large and small bowel today appear to be normal previous exam these were found to be dilated no l onger dilated and normal in size. Small bowel appear to be normal. The pelvis shows a markedly thickened wall urinary bladder which is contracted the wall measured 10.3 96 mm and is consistent with a paralytic bladder. In the rectosigmoid area was normal. The lumbar spine and pelvis did not show fractures. We understand the. Patient is paraplegic. CT/CT abdomen pelvis w con* [id number] Impression: Postop changes are seen in the stomach and appears to be a small am ount of air in the wall of the stomach but no perforations are seen. The stomac h is thickened wall. Left adrenal adenoma unchanged since earlier exams Renal lithiasis left kidney The urinary bladder is thickened wall and contracted
[2020-03-04] MEDS: iohexol 300 mg/mL 100 mL Btl IV (11:41)
[2020-03-04 12:28] LABS: Bilirubin Urine Neg (NEGATIVE); Blood Urine Neg (Negative); Glucose Urine UA Norm (Normal); Ketones Urine Negative (Negative); Leukocyte Esterase Urine 2+ (Negative); Nitrate Urine Positive (Negative); Protein Urine Neg (Negative); Specific Gravity, Urine 1.005 (1.005-1.030); Urine Appearance Hazy (CLEAR); Urine Color Yellow (Yellow); Urobilinogen Urine Norm (Negative); pH Urine 5 (5-7)
[2020-03-04 12:30] LABS: WBC Urine 55-80 /hpf (0-5)
[2020-03-04] MEDS: sodium chloride 0.9% 1,000 ML 100 ML IV ×2 (12:30→17:35)
[2020-03-04 12:31] LABS: Add Urine Culture? Yes; Bacteria Urine 3+; Mucus Urine 2+
[2020-03-04 12:37] LABS: Troponin 5 2HR 10.18 ng/mL (0-10)
[2020-03-04 12:43] LABS: Troponin 5 2HR Delta -0.82 ABS# (0-10)
--- NOTE | 2020-03-04 12:47 | CT_ITS ---
WS: [id number] CT abdomen pelvis wo con [id number] REASON FOR EXAM: Abdominal Pain IV CONTRAST ADMINISTERED: Previously given Omnipaque 350 followed today with this exam with height an d contrast. TOTAL EXAM DLP: 1996.[address] scans at [facility] use at least one of these dose optimization techniques: automat ed exposure control; mA and/or kV adjustment per patient size (includes targeted exams where dose is matched to clinical indication); or iterative reconstruction. FINDINGS: Previous exam earlier today suggested air bubbles in the stomach we were unsure if these re presented air in the wall are in the stomach. The patient given oral contrast the stomach fill readil y and what was felt to be a thickened wall stomach was a collapsed stomach was distended with the con trast normal appearance is seen in the wall and there is postop changes noted with lasha but no oth er evidence to suggest perforation or penetration of an ulcer. The liver was also normal The 10 minute delay images showed contrast in the small bowel normal. The kidneys are well contrasted showed normal function. CT/CT abdomen pelvis wo con [id number] IMPRESSION: Follow-up evaluation with oral contrast show the stomach was normal in caliber and distended and not thickened wall is suspected from the noncontrast study There is air in the stomach but there is no penetration or perforation changes noted.
[2020-03-04] MEDS: iohexol 300 mg/mL 50 mL Btl PO (13:13)
[2020-03-04] MEDS: pantoprazole 40 mg SDV 80 MG IVP (14:22)
[2020-03-04] MEDS: cefTRIAXone 1,000 MG in sodium chloride 0.9% (plus) 50 ML 100 MG IV (15:32)
--- NOTE | 2020-03-04 15:48 | PC.NURSE ---
angelina changed per DR COWAN
--- NOTE | 2020-03-04 15:52 | ECG_ITS ---
Measurements Intervals [place] Rate: 63 P: 2 GA: 129 QRS: 40 QRSD: 91 T: 71 QT: 448 QTc: 462 SINUS RHYTHM LOW QRS VOLTAGE IN PRECORDIAL LEADS [QRS DEFLECTION < 1.0 mV IN CHEST LEADS] Compared to ECG 03/29/2019 14:13:03 Low QRS voltage now present Short GA interval no longer present Electronically Signed On 03-04-2020 20:16:00 CDT by Ellen Kincaid M.D. [email or web address]
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
[2020-03-04 16:09] LABS: Troponin 5 6HR 9.23 ng/mL (0-10)
[2020-03-04 16:10] LABS: Troponin 5 6HR Delta -1.77 ng/L (0-12)
[2020-03-04 17:18] LABS: Bilirubin Urine Neg (NEGATIVE); Blood Urine Neg (Negative); Glucose Urine UA Norm (Normal); Ketones Urine Negative (Negative); Leukocyte Esterase Urine 1+ (Negative); Nitrate Urine Negative (Negative); Protein Urine Neg (Negative); Specific Gravity, Urine 1.005 (1.005-1.030); Urine Appearance Clear (CLEAR); Urine Color Straw (Yellow); Urobilinogen Urine Norm (Negative); pH Urine 5 (5-7)
[2020-03-04 17:23] LABS: Squamous Epithelial Cell Urine 0-4 (0-5)
[2020-03-04 17:25] LABS: Add Urine Culture? No; Bacteria Urine 1+; Mucus Urine 1+
--- NOTE | 2020-03-04 17:50 | P.HP_ITS ---
Providers/Chief Complaint Admitting Physician: Simon Huitron Primary Care Provider: Cade Castaneda MD Chief Complaint: ABD PAIN POST OP History of Present Illness Rosanne Morales is a 45 year old female with quadruplegia, chronic Dumont catheter and recurrent UTI with recent E coli UTI resistant to ampicillin and Bactrim, prior to that laparoscopic evaluation and partial gastrectomy after complaint of abdominal pain and finding of gastric perforation on exploration. She presented today to the ER complaining of about 3 days of abdominal pain bothering her. She says the pain is on the R side, in R lower quadrant but also higher up at the lateral R flank. The pain is constant. She denies any changes in bowel patterns. She had a normal bowel movement yesterday. She also denies any other complaints, but when asked about it does report some dysuria. She says this is been present for about 1 day. In the ER initially CT abdomen pelvis with IV contrast was reported as showing concern of small amount of air in the wall of the stomach without perforation, and thickened stomach wall. Urinary bladder is chronically thickened and contracted. She has history of urinary bladder perforation/rupture, and had undergone partial cystectomy in the past. CT abdomen pelvis with oral contrast was followed up, showing no thickened stomach wall, and all air in the lumen of the stomach. No need for additional surgical intervention at this time was found by surgery. She was described to have right upper quadrant pain, although I was not able to elicit this. Liver parameters are all normal. Gallbladder normal on CT. UA on admission found with 55-80 WBC. With positive nitrite, leukocyte esterase. No RBC. As noted she does reply he is on review of systems to dysuria, although states that this is a recurrent issue. She otherwise denies any other complaints. She has been afebrile, denies any upper or lower respiratory complaints. She has had a minimal rash in her right axilla. Of note her Dumont catheter was last replaced a week ago. It is usually replaced every 30 days. Urinary catheter replacement was requested, and UA repeated. On my examination right lower quadrant pain can be elicited on palpation, but the right flank pain is elicited in the skin fold at the right flank, and can be triggered by squeezing the cutaneous tissue. She does not appear to have a rash there. Denies known trauma. Review of Systems Const: Denies: fever, chills, body aches or malaise Eyes: Denies: change in vision or eye redness ENMT: Denies: throat pain, oral sores/lesions or ear pain Card: Denies: chest pain, edema, pre-syncope or shortness of breath on exertion Resp: Denies: shortness of breath, productive cough, change in phlegm color or coughing up blood GI: Reports: abdominal pain (RLQ); Denies: nausea, vomiting, diarrhea, constipation, blood in stool or black tarry stool : Reports: other (burning around the catheter); Denies: flank pain, urinary frequency or blood in urine Musc: Denies: back pain, joint swelling or redness Skin/Breast: Denies: rash, sores or new lesion Neuro: Denies: headache, numbness in extremities, weakness in extremities, dizziness, confusion or seizure-like activity Endo: Denies: excessive urination or excessive thirst Raul/Lymph: Denies: easy bleeding or purpura All/Imm: Denies: hives, throat swelling or tongue swelling Medications/Allergies Home Medications Medication Instructions Recorded Confirmed Last Taken Type docusate sodium 100 mg PO BID #60 cap 12/07/19 03/04/20 03/04/20 Rx lactulose 10 g PO DAILY #300 ml 12/07/19 03/04/20 03/04/20 Rx pantoprazole [Protonix] 40 mg PO DAILY 30 Days #30 tab 01/11/20 03/04/20 0 Rx baclofen 5 mg PO TID PRN 02/16/20 03/04/20 03/04/20 History gabapentin 100 mg PO TID 02/16/20 03/04/20 03/04/20 History cephalexin 500 mg PO DAILY 03/04/20 03/04/20 03/04/20 History Allergies Allergy/AdvReac Type Severity Reaction Status Date / Time No Known Allergies Allergy Verified 03/04/20 15:57 PFSH Acute PFSH: Medical History Chronic indwelling Dumont catheter Neurogenic bladder Chronic indwelling catheter at this point Post-traumatic quadriplegia Recurrent sepsis due to urinary tract infection Surgical History H/O cystoscopy H/O partial cystectomy H/O Spinal surgery History of hysterectomy History of partial gastrectomy Family History Other CAD (coronary artery disease) Diabetes Hypertension Social History Smoking and tobacco status: never smoked Alcohol intake: never Household members: spouse Housing: House Marital status: Current occupational status: disabled Vitals/I&O/Wt Last Vital Signs Temp 97.5 F L 03/04/20 16:09 Pulse 64 03/04/20 16:09 Resp 16 03/04/20 16:09 BP 120/80 03/04/20 16:09 Pulse Ox 99 03/04/20 16:09 Weight last 48 hrs Weight 54.431 kg Physical Exam Const: COMMON NORMALS: no apparent distress and oriented x3 EXAM LIMITATIONS: physical limitations (Quadriplegic.) OTHER: Pleasant, conversant. HENMT: COMMON NORMALS: oropharynx normal Neck/C-Spine: COMMON NORMALS: no JVD Resp: COMMON NORMALS: normal respiratory effort and clear to auscultation bilaterally AUSCULTATION: clear to auscultation bilaterally Cardio: COMMON NORMALS: no JVD, regular rhythm, S1 normal heart sound, S2 normal heart sound and no murmurs RHYTHM: regular rhythm HEART SOUNDS: S1 normal and S2 normal GI: COMMON NORMALS: normal to inspection, nondistended, normoactive bowel sounds and soft to palpation PALPATION: Yes soft and Yes tender Details: RLQ Back/Pelvis: OTHER: Tender to palpation over R flank, but even to just superficial palpation. Gentle pinching of the vertical skin roll at the R lateral flank triggers pain. Extremity: COMMON NORMALS: no joint enlargement and no pedal edema Neuro: COMMON NORMALS: oriented x3 and moves all extremities Skin: COMMON NORMALS: no rashes or lesions noted GENERAL SKIN EXAM: no rashes or lesions noted Data : 03/04/20 10:28 03/04/20 10:28 A&P Assessment and plan (1) Abdominal pain: On detailed examination of her abdomen, she has pain in the right lower quadrant, all other quadrants are nontender at this time. She does also have tenderness on very superficial palpation of the right flank, and even pinching of the vertical skin fold at the lateral right flank triggers pain. There is no superficial rash, no erythema, swelling, warmth to suggest integumentary infection. She denies trauma. CT abdomen pelvis with IV contrast first, then with oral contrast, without significant abnormality noted, although I do not see report on appendix. Symptoms may need to be monitored for evolution. Tomorrow we will touch base with radiology regarding whether any concerns about the appendix may be seen. Per discussion with surgery nothing obvious was visualized on the image on surge on's review. She has a left side nephrolithiasis, however, this is nonobstructing and not even on the same side. Per brief discussion with urology nonobstructing stone would rarely be expected to cause symptoms. There is no hydronephrosis on the right. No signs of pyelonephritis. First UA on presentation was with 55-80 WBC, positive nitrite, positive leukocyte esterase. There were no RBC to suggest that she may have been passing a stone on the right. The flank pain on the right is very superficial, and does not relate to any deeper structures. Whether she may be having some cystitis as the cause of the pain, may be somewhat unusual with unilateral location. She does have some dysuria, recently was treated for UTI. At the same time her Dumont catheter has been in for about a week, and on replacement and repeating UA, there is only 10-15 WBC, and now negative nitrite. Not very impressive. If any potentially having very early cystitis. Consider serial abdominal exams. Discussion with radiology regarding appearance of appendix. If pain persistent, consider additional evaluation of uterine adnexa. Status: Acute Qualifiers: Abdominal location: upper abdomen, unspecified Qualified Code(s): R10.10 - Upper abdominal pain, unspecified (2) Chronic indwelling Dumont catheter: At this time she has no fever, leukocytosis, or other signs of sepsis. There is no signs of pyelonephritis on imaging, or clinically. She does have right lower quadrant pain of unidentified etiology at this time, see above. With nephrolithiasis on the left, it is possibly less likely, without any hematuria, that she may have passed a stone on the right, and is symptomatic from that. As noted her Dumont catheter had been in for about a week, and though initial UA did show 55-80 WBC, positive nitrite and leukocytes esterase and bacteria, on replacement of Dumont and reposition of UA, there were only 10-15 WBC, negative nitrite. Discussed with her and her . I am not 100% convinced that she is having a UTI again, however, with some dysuria cannot entirely exclude especially chronic Dumont, and her other risk factors. Perhaps this may be early cystitis, so for now we will resume ciprofloxacin, consider a 5-day course, but would not go longer unless something changes. Discussed with her , would recommend replacing Dumont catheter more often, perhaps even on a weekly basis given that even after a week she has had some pyuria, and other findings. Status: Acute Additional A&P Information Quadriplegia History of urinary bladder rupture, partial cystectomy, chronically thickened bladder wall Attestations Medical Necessity Statement*: Place in observation. Coding Level of Care Code Acute Supervisor Laboratory Animal Facility for Julien [facility] Diagnoses Abdominal pain R10.10 Abdominal location: upper abdomen, unspecified Chronic indwelling Dumont catheter Z96.0
[2020-03-04] MEDS: ciprofloxacin 500 mg Tablet PO (19:53)
[2020-03-04] MEDS: heparin 5,000 unit/mL INJ 1 mL 5000 UNIT SUBCUT (19:54)
[2020-03-04] MEDS: gabapentin 100 mg Capsule PO (22:09)
[2020-03-04] MEDS: baclofen 10 mg Tablet 5 MG PO (22:09)
[2020-03-05] VITALS (12 sets, daily range): BP systolic 80–127; BP diastolic 51–78; PULSE 67–103; RESP 18–20; TEMP 36.4–37; O2SAT 95–99
[2020-03-05] MEDS: morphine 4 mg/mL SDV 1 mL IVP ×5 (00:06→22:01)
[2020-03-05 05:37] LABS: Basophils % 0.5 %; Eosinophils # 0.2 10^3/uL (0.0-0.8); Eosinophils % 3.5 %; Hematocrit 34.7 % (37.0-47.0); Hemoglobin 10.4 g/dL (11.5-15.3); Lymphocytes # 1.5 10^3/uL (0.8-4.8); Lymphocytes % 34.4 %; Mean Corpuscular Hemoglobin 28.7 pg (28.0-34.0); Mean Corpuscular Volume 95.6 fL (81-99); Mean Platelet Volume 10.5 fL (7.4-10.4); Monocytes # 0.4 10^3/uL (0.2-0.9); Neutrophils # 2.2 10^3/uL (1.8-7.7); Neutrophils % 52.6 %; Nucleated Red Blood Cells % 0 %; Platelet Count 229 10^3/cmm (130-400); Red Blood Count 3.63 10^6/uL (4.1-5.3); White Blood Count 4.2 10^3/uL (4.0-10.0)
[2020-03-05] MEDS: sodium chloride 0.9% 1,000 ML 100 ML IV ×2 (05:46→17:53)
[2020-03-05] MEDS: heparin 5,000 unit/mL INJ 1 mL 5000 UNIT SUBCUT ×3 (05:47→21:57)
[2020-03-05 05:54] LABS: Anion Gap 11.9 (5-19); Blood Urea Nitrogen 9 mg/dL (6-20); Calcium 8.1 mg/dL (8.5-10.5); Carbon Dioxide 25 mmol/L (22-29); Chloride 107 mmol/L (98-107); Glomerular Filtration Rate 90.5 mL/min (90-130); Glucose 86 mg/dL (65-115); Lactic Acid level (Lactate) 1.2 mmol/L (0.5-2.2); Osmolality Calculated 285 mOsm/kg (285-295); Potassium 3.9 mmol/L (3.5-5.1); Sodium 140 mmol/L (136-145)
--- NOTE | 2020-03-05 06:44 | P.PN_ITS ---
Subjective Subjective: Interval history: Patient overall feels slightly better, continues to complain of right-sided abdominal pain with particular maximal tenderness on the right upper quadrant and right flank Vitals/I&O/Wt Last Vital Signs Temp 97.6 F 03/05/20 04:00 Pulse 67 03/05/20 04:00 Resp 18 03/05/20 05:47 BP 103/64 03/05/20 05:39 Pulse Ox 99 03/05/20 05:47 03/04/20 03/04/20 03/05/20 14:59 22:59 06:59 Intake Total 1000 / 1000 Output Total 550 / 550 350 / 900 Balance -550 / -550 650 / 100 Weight last 48 hrs Weight 120 lb Physical Exam Narrative: EXAM NARRATIVE: Patient is conscious alert oriented X3 BMI 21 Physical examination was done in the presence of patient's nurse Eric Head and neck examination PERRLA no masses no cervical lymphadenopathy no jaundice Abdomen right upper quadrant and right flank tenderess, less tender on the right lower quadrant, nondistended soft no organomegaly guarding or rigidity/no signs of peritonitis Right gluteal pressure injury ulcer stage III and left gluteal pressure injury ulcer stage II Urinary Catheter Management^: Dumont: Cath Placed During This Visit: no Reason for Continuing Indwelling Catheter: Chronic Indwelling Urinary Catheter on Admission Data : 03/05/20 05:29 03/05/20 05:29 A&P Assessment and plan (1) Abdominal pain: We will plan to review the images with radiology today, I do not see an acute inflammatory process at the right lower quadrant on imaging studies. After reviewing further the images with Dr. Miles she agreed that the appendix is normal. Application daily of Hydrofera Blue Repeated physical examination We will continue coordinating with the hospitalist service Continue advance diet as tolerated Upon discharge patient can follow-up with me as needed at surgery office Thank you for consulting general surgery to participate taking care Bowels Status: Acute Qualifiers: Abdominal location: upper abdomen, unspecified Qualified Code(s): R10.10 - Upper abdominal pain, unspecified Attestations Medical Necessity Statement*: Per hospitalist service Time Spent in Patient Care: 16 - 35 minutes (>than 50% of time spent in c ounselling and/or direct pt care on unit) . Coding Level of Care Code Acute Retail Office Associate for [facility] Fwd Diagnoses Abdominal pain R10.10 Abdominal location: upper abdomen, unspecified
[2020-03-05] MEDS: baclofen 10 mg Tablet 5 MG PO ×3 (09:31→21:57)
[2020-03-05] MEDS: ciprofloxacin 500 mg Tablet PO ×2 (09:31→17:12)
[2020-03-05] MEDS: lactulose oral liq 20 gm/30 mL UDC 10 GM PO (09:31)
[2020-03-05] MEDS: docusate sodium 100 mg Capsule PO ×2 (09:31→17:12)
[2020-03-05] MEDS: pantoprazole DR 40 mg Tablet PO (09:31)
[2020-03-05] MEDS: gabapentin 100 mg Capsule PO ×3 (09:31→21:57)
--- NOTE | 2020-03-05 10:28 | PC.CHAP ---
Pastoral Care Encounter/Spiritual Assessment Type of Contact [] Declined gold leaf laborer visit [] Patient/Family/Request visit [] Outpatient visit [] Follow-up visit [] Physician referral [] Code/Alert [x] Routine visit [] Staff referral [] Actively dying [] Patient sleeping [] Family support [] [] Out of room [] Palliative care [] [] Receiving care in room [] Pre-surgical visit [] Trauma [] Long length of stay [] ICU visit [] Other: Relational/Emotional Strength [] Patient feels connected with others/family/visitors/staff [] Distress [] Loneliness/isolation [] Abandonment Spirituality of Patient [] Person of Susan [] Attends Shinto of their Susan [x] Believes in Prayer [] Reads Bible or Adventism materials [] There are Spiritual issues to be addressed Quality Assurance Monitor Body Interventions [x] Prayer [] Active listening [] Non-anxious presence [] Spiritual/emotional support [] Crisis/trauma care [] Spiritual counseling [] Bereavement support [] Provided bereavement packet [] Provided Bible/devotional materials [] Provided toy/stuffed animal, coloring book to patient or family member [] Provided Communion [] Anointing/[place] [] Salvation [x] Completed spiritual assessment [] Other: Impact on Illness or Injury [] Angry [] Fearful [] Anxious [] Often cries [] Exhaustion [] Unable to work [] Unable to attend episcopalian [] Unable to walk/stand [] Unable to read [] Unable to drive [] Unable to eat/drink [] Unable to sleep [] Unable to be with family [] Patient intubated [] Other: Summary Patient excited no surgery. Ate a good meal with staff assistance. Patient feeling much stronger Time spent with patient 10 min
--- NOTE | 2020-03-05 13:34 | P.PN_ITS ---
Subjective Subjective: Interval history: Rosanne reports that she is better but still having some right lower quadrant abdominal discomfort. She states her back hurts some as well on that side. History and physical reviewed. Medications: Reviewed: Yes Vitals/I&O/Wt Last Vital Signs Temp 97.9 F 03/05/20 11:02 Pulse 103 H 03/05/20 13:05 Resp 18 03/05/20 13:14 BP 81/53 03/05/20 11:02 Pulse Ox 95 03/05/20 13:14 03/04/20 03/05/20 03/05/20 22:59 06:59 14:59 Intake Total 1000 / 1000 480 / 480 Output Total 550 / 550 350 / 900 Balance -550 / -550 650 / 100 480 / 480 Weight last 48 hrs Weight 54.431 kg Physical Exam Narrative: EXAM NARRATIVE: General exam is a conversant female in no apparent distress Cardiovascular regular rate and rhythm without murmur Lungs clear Abdomen is soft with positive bowel sounds Extremities no cyanosis or clubbing. Trace edema is present. Urinary Catheter Management^: Dumont: Cath Placed During This Visit: no Reason for Continuing Indwelling Catheter: Chronic Indwelling Urinary Catheter on Admission Data : 03/05/20 05:29 03/05/20 05:29 Micro: Microbiology 03/04/20 12:13 Urine Culture - Preliminary Urine,Clean Catch Gram Negative Rods A&P Assessment and plan (1) Abdominal pain: Right lower quadrant abdominal discomfort. No abscess is noted and appendix appears normal. Surgery following. With her back pain this is likely secondary to UTI and possible pyelonephritis. Urine is growing gram-negative chelly. Of note, I have cared for her before back in November and she had similar complaints at that time. Check serum hCG as well. Continue ciprofloxacin Await culture results No evidence of need for urologic intervention. Nephrolithiasis is noted but no evidence of obstruction. Dumont has recently been changed Status: Acute Qualifiers: Abdominal location: upper abdomen, unspecified Qualified Code(s): R10.10 - Upper abdominal pain, unspecified (2) Chronic indwelling Dumont catheter: Continue urinary catheter Follow-up with urology Status: Acute Additional A&P Information Quadriplegia History of urinary bladder rupture, partial cystectomy, chronically thickened bladder wall, pelvic abscess Reduce fluids Changed to regular admission. Secondary to her history of multiple complications, indwelling catheter, etc. this is a complicated UTI and culture results should be known prior to discharge. Attestations Medical Necessity Statement*: Needs continued hospital stay, for further antibiotics and close monitoring secondary to abdominal pain with complicated UTI. Coding Level of Care Code Acute Tower Air Traffic Control Specialist for Chg Fwd Diagnoses Abdominal pain R10.10 Abdominal location: upper abdomen, unspecified Chronic indwelling Dumont catheter Z96.0
[2020-03-05 14:10] LABS: HCG, Serum Qual Negative (Negative)
[2020-03-06] VITALS (7 sets, daily range): BP systolic 96–118; BP diastolic 60–72; PULSE 59–72; RESP 14–20; TEMP 36.6–37; O2SAT 92–98
[2020-03-06] MEDS: morphine 4 mg/mL SDV 1 mL IVP (02:57)
[2020-03-06 05:21] LABS: Basophils % 0.5 %; Eosinophils # 0.1 10^3/uL (0.0-0.8); Eosinophils % 2.8 %; Hematocrit 32.1 % (37.0-47.0); Lymphocytes # 1.1 10^3/uL (0.8-4.8); Lymphocytes % 25.6 %; Mean Corpuscular HGB Conc 31.2 g/dL (30.0-36.0); Mean Platelet Volume 10.3 fL (7.4-10.4); Monocytes # 0.5 10^3/uL (0.2-0.9); Monocytes % 11.8 %; Neutrophils # 2.6 10^3/uL (1.8-7.7); Neutrophils % 59.3 %; Nucleated Red Blood Cells % 0 %; Platelet Count 186 10^3/cmm (130-400); Red Blood Count 3.45 10^6/uL (4.1-5.3); Red Cell Distribution Width 13.6 % (12.1-15.1); White Blood Count 4.3 10^3/uL (4.0-10.0)
[2020-03-06 05:45] LABS: Alanine Aminotransferase 9 U/L (0-33); Albumin Level 3.1 g/dL (3.5-5.2); Alkaline Phosphatase 61 IU/L (35-105); Anion Gap 10.3 (5-19); Aspartate Amino Transferase 14 U/L (0-32); Blood Urea Nitrogen 5 mg/dL (6-20); Calcium 9.1 mg/dL (8.5-10.5); Carbon Dioxide 25 mmol/L (22-29); Chloride 106 mmol/L (98-107); Globulin 3.4 g/dL (1.3-4.6); Glomerular Filtration Rate 90.5 mL/min (90-130); Glucose 99 mg/dL (65-115); Osmolality Calculated 282 mOsm/kg (285-295); Potassium 3.3 mmol/L (3.5-5.1); Sodium 138 mmol/L (136-145); Total Bilirubin 0.2 mg/dL (0.15-1.2); Total Protein 6.5 g/dL (6.6-8.7)
[2020-03-06] MEDS: docusate sodium 100 mg Capsule PO ×2 (08:59→17:25)
[2020-03-06] MEDS: heparin 5,000 unit/mL INJ 1 mL 5000 UNIT SUBCUT ×3 (08:59→23:43)
[2020-03-06] MEDS: lactulose oral liq 20 gm/30 mL UDC 10 GM PO (08:59)
[2020-03-06] MEDS: gabapentin 100 mg Capsule PO ×3 (08:59→21:19)
[2020-03-06] MEDS: ciprofloxacin 500 mg Tablet PO (08:59)
[2020-03-06] MEDS: pantoprazole DR 40 mg Tablet PO (09:00)
[2020-03-06] MEDS: ondansetron 2 mg/ML SDV 2 mL 4 MG IVP ×2 (09:10→15:10)
[2020-03-06] MEDS: HYDROcodone-acetaminophen 5-325 mg Tablet 1 TAB PO ×3 (10:47→21:18)
[2020-03-06] MEDS: cefTRIAXone 2,000 MG in sodium chloride 0.9% (plus) 50 ML 100 MG IV (11:36)
--- NOTE | 2020-03-06 12:01 | PC.CHAP ---
Pastoral Care Encounter/Spiritual Assessment Type of Contact [] Declined mobile manager visit [] Patient/Family/Request visit [] Outpatient visit [] Follow-up visit [] Physician referral [] Code/Alert [] Routine visit [] Staff referral [] Actively dying [] Patient sleeping [] Family support [] [] Out of room [] Palliative care [] [] Receiving care in room [] Pre-surgical visit [] Trauma [] Long length of stay [] ICU visit [x] Other: Isolation Relational/Emotional Strength [] Patient feels connected with others/family/visitors/staff [] Distress [] Loneliness/isolation [] Abandonment Spirituality of Patient [] Person of Susan [] Attends Quaker of their Susan [] Believes in Prayer [] Reads Bible or Yazidism materials [] There are Spiritual issues to be addressed Filemaker Developer Interventions [] Prayer [] Active listening [] Non-anxious presence [] Spiritual/emotional support [] Crisis/trauma care [] Spiritual counseling [] Bereavement support [] Provided bereavement packet [] Provided Bible/devotional materials [] Provided toy/stuffed animal, coloring book to patient or family member [] Provided Communion [] Anointing/[place] [] Salvation [] Completed spiritual assessment [] Other: Impact on Illness or Injury [] Angry [] Fearful [] Anxious [] Often cries [] Exhaustion [] Unable to work [] Unable to attend episcopal [] Unable to walk/stand [] Unable to read [] Unable to drive [] Unable to eat/drink [] Unable to sleep [] Unable to be with family [] Patient intubated [] Other: Summary Isolation Time spent with patient 5 mins
--- NOTE | 2020-03-06 12:05 | PM.PN ---
Subjective Subjective: Interval history: Rosanne reports her right lower quadrant is still hurting her. She does not really feel like eating. Perhaps some slight nausea. Medications: Reviewed: Yes Vitals/I&O/Wt Last Vital Signs Temp 98.0 F 03/06/20 11:03 Pulse 69 03/06/20 11:03 Resp 18 03/06/20 11:03 BP 118/67 03/06/20 11:03 Pulse Ox 98 03/06/20 11:03 03/05/20 03/06/20 03/06/20 22:59 06:59 14:59 Intake Total 1240 / 1720 100 / 1820 120 / 120 Output Total 1300 / 1300 1475 / 1475 Balance -60 / 420 100 / 520 -1355 / -1355 Physical Exam Narrative: EXAM NARRATIVE: General exam is a conversant female in no apparent distress Cardiovascular regular rate and rhythm without murmur Lungs clear Abdomen is soft with positive bowel sounds. Right lower quadrant discomfort on palpation persists Extremities no cyanosis or clubbing. Trace edema is present. Urinary Catheter Management^: Dumont: Cath Placed During This Visit: no Reason for Continuing Indwelling Catheter: Chronic Indwelling Urinary Catheter on Admission Data : 03/06/20 05:00 03/06/20 05:00 Micro: Microbiology 03/04/20 12:13 Urine Culture - Final Urine,Clean Catch Escherichia coli A&P Assessment and plan (1) Abdominal pain: Right lower quadrant abdominal discomfort. No abscess is noted and appendix appears normal. Surgery following. Concerned this is secondary to UTI and pyelonephritis. Urine grew E. coli, only intermediate sensitivity to Cipro. She was changed to Rocephin this morning and Cipro was discontinued. No evidence of need for urologic intervention. Nephrolithiasis is noted but no evidence of obstruction. Dumont has recently been changed I did review her CAT scan with radiology and a right ovarian cyst is noted. This appears benign. Conceivably this could cause some of her discomfort as well as it is in that location. Consider outpatient gynecology evaluation Status: Acute Qualifiers: Abdominal location: upper abdomen, unspecified Qualified Code(s): R10.10 - Upper abdominal pain, unspecified (2) Chronic indwelling Dumont catheter: Continue urinary catheter Follow-up with urology Status: Acute Additional A&P Information Mild hypokalemia, will supplement Quadriplegia History of urinary bladder rupture, partial cystectomy, chronically thickened bladder wall, pelvic abscess Continue low-dose fluids Full code Heparin for DVT prophylaxis No need for laboratory tomorrow Discharge planning working on disposition. It is possible she could be discharged within the next 1 to 2 days when clinical improvement is noted in her condition as urine culture has returned. Attestations Medical Necessity Statement*: Needs continued hospitalization for IV antibiotics secondary to complicated UTI Coding Level of Care Code Acute Manager Educational for Julien Magaña Diagnoses Abdominal pain R10.10 Abdominal location: upper abdomen, unspecified Chronic indwelling Dumont catheter Z96.0
[2020-03-06] MEDS: baclofen 10 mg Tablet 5 MG PO ×2 (14:02→21:18)
[2020-03-06] MEDS: sodium chloride 0.9% 1,000 ML 100 ML IV (14:12)
[2020-03-07] VITALS: BP 107/69; PULSE 68; RESP 20; TEMP 37; O2SAT 98
[2020-03-07 04:00] VITALS: BP 102/65; PULSE 59; RESP 20; TEMP 36.7; O2SAT 97
[2020-03-07 07:04] VITALS: BP 113/70; PULSE 63; RESP 14; TEMP 36.4; O2SAT 96
[2020-03-07] MEDS: lactulose oral liq 20 gm/30 mL UDC 10 GM PO (09:01)
[2020-03-07] MEDS: docusate sodium 100 mg Capsule PO (09:02)
[2020-03-07] MEDS: pantoprazole DR 40 mg Tablet PO (09:02)
[2020-03-07] MEDS: baclofen 10 mg Tablet 5 MG PO ×2 (09:02→14:55)
[2020-03-07] MEDS: HYDROcodone-acetaminophen 5-325 mg Tablet 1 TAB PO ×2 (09:04→14:55)
[2020-03-07] MEDS: gabapentin 100 mg Capsule PO ×2 (09:05→14:55)
[2020-03-07] MEDS: heparin 5,000 unit/mL INJ 1 mL 5000 UNIT SUBCUT ×2 (09:05→16:10)
[2020-03-07 10:06] VITALS: BP 107/70; PULSE 93; RESP 16; TEMP 36.7; O2SAT 95
--- NOTE | 2020-03-07 10:33 | PM.DCS ---
Discharge Providers Date of Admission: 03/05/20 13:48 Date of Discharge: March 07, 2020 Attending Provider at Admission: Simon Huitron Attending Provider at Discharge: Sedrick Cruz MD Primary Care Provider: Cade Castaneda MD Diagnoses at Discharge Discharge Diagnosis (1) Abdominal pain: Status: Acute Problem details: Improved. Consistent with UTI, E. coli, sensitive to third-generation cephalosporin Qualifiers: Abdominal location: upper abdomen, unspecified Qualified Code(s): R10.10 - Upper abdominal pain, unspecified (2) Chronic indwelling Dumont catheter: Status: Acute Reason for Visit Reason for Visit: Reason For Visit: ABD PAIN POST OP Hospital Course Hospital Course: Rosanne is a 45-year-old white female, with quadriparesis, and indwelling catheter that presented to the hospital with some right lower quadrant pain. There was concerned this represented UTI or possibly pyelonephritis. She was placed on oral fluoroquinolone. Surgery was also consulted to exclude surgical causes such as appendicitis. While in the hospital her pain waxed and waned. Urine culture ultimately returned E. coli, intermediate sensitivity to fluoroquinolones. Antibiotic was changed to Rocephin. At that point her abdominal discomfort seemed to improve and was minimal on discharge March 07. She did not run fevers while in the hospital. She was not bacteremic. She will finish 12 days of cefdinir, follow-up with urology in 1 week, to determine if any suppressive antibiotic should be given. She will also follow-up with surgery regarding a longstanding sacral decub that does not currently appear to be infected. Of note she does have an a benign-appearing right ovarian cyst. Should pain be recurrent, consideration of TRACK ANNOUNCER referral. Physical Exam Narrative: EXAM NARRATIVE: General exam no apparent distress Cardiovascular regular in rhythm without murmur Lungs clear Abdomen is soft, positive bowel sounds Extremities no cyanosis clubbing or edema Urinary Catheter Management^: Dumont: Cath Placed During This Visit: no Reason for Continuing Indwelling Catheter: Chronic Indwelling Urinary Catheter on Admission Discharge Data Data Completed and Pending: Completed Studies During Hospitalization Category Date Time Status CT abdomen pelvis w con* [id number] Urge nt Cat Scan 03/04/20 11:[address] abdomen pelvis wo con [id number] Urge nt Cat Scan 03/04/20 12:47 Completed US abdomen comple te* [id number] Urgent Ultrasound 03/04/20 09:44 Completed Pending at discharge Category Date Time Status Urine Culture Sta t Lab 03/04/20 16:55 Results Vitals: Last Vital Signs Temp 98.0 F 03/07/20 10:06 Pulse 93 03/07/20 10:06 Resp 16 03/07/20 10:06 BP 107/70 03/07/20 10:06 Pulse Ox 95 03/07/20 10:06 Discharge Plan Discharge Patient Disposition: Xfer SNF Condition: Stable Prescriptions: New cefdinir 300 mg capsule 300 mg PO BID 12 Days Qty: 24 RF: 0 Continued docusate sodium 100 mg Capsule 100 mg PO BID Qty: 60 RF: 0 lactulose 20 gram/30 mL Solution 10 g PO DAILY Qty: 300 RF: 0 pantoprazole [Protonix] 40 mg tablet,delayed release (DR/EC) 40 mg PO DAILY 30 Days Qty: 30 RF: 2 gabapentin 300 mg Capsule 100 mg PO TID RF: 0 baclofen 5 mg Tablet 5 mg PO TID PRN (Reason: Pain) RF: 0 Discontinued cephalexin 500 mg capsule 500 mg PO DAILY RF: 0 Discharge Orders: Discharge Order (Routine); Ordered 03/07/20 Ordered By: Sedrick Cruz Referrals: Kartik Carter MD [Physician] - (Return to surgery office in 2w.) Hilton Culp MD [Physician] - 7-10 days Discharge Diet: Regular Discharge Activity: Increase activity as tolerated Activity Restrictions/Additional Instructions: Continue Dumont on discharge Follow-up with urology 1 week Follow-up with primary care provider at snf facility 3 to 5 days Complete 12 days of cefdinir as prescribed, potentially further treatment as directed by urology Discharge Attestations Time Spent in Discharge Care*: greater than 30 min Quality Metrics Clinical Quality Measures During this hospital stay, did patient experience: None Coding Level of Care Code Acute Bilingual Speech Language Pathologist for Chg Fwd Diagnoses Abdominal pain R10.10 Abdominal location: upper abdomen, unspecified Chronic indwelling Dumont catheter Z96.0
[2020-03-07 10:58] VITALS: BP 107/70; PULSE 93; RESP 16; TEMP 36.7; O2SAT 95
[2020-03-07] MEDS: polyethylene glycol 3350 Pkt 17 gm PO (11:18)
[2020-03-07] MEDS: cefTRIAXone 2,000 MG in sodium chloride 0.9% (plus) 50 ML 100 MG IV (11:18)
[2020-03-07 15:36] VITALS: BP 125/78; PULSE 95; RESP 18; TEMP 36.9; O2SAT 96
== END 2020-03-07 16:36 | disposition skilled nursing facility (03) | DRG 689 ==
LOC: ER 13:11 → MEDSURG 14:23
PROVIDERS: Emergency Medicine; Surgery; Admitting Provider Internal Medicine; PCP Family Medicine; Visit Provider Internal Medicine
DX: N39.0 Urinary tract infection, site not specified (principal); G82.50 Quadriplegia, unspecified; Z16.19 Resistance to other specified beta lactam antibiotics; B96.20 Unspecified Escherichia coli [E. coli] as the cause of diseases classified elsewhere; Z96.0 Presence of urogenital implants; N31.9 Neuromuscular dysfunction of bladder, unspecified
CPT/HCPCS: 12345; 36415; 74176; 74177; 76700; 80048; 80053; 81001; 83605; 83690; 83735; 84484; 84703; 85025; 87077; 87086; 87186; 93005; 96372; 96375; 99284; C9113; G0378; J0696; J1644; J2270; J2405; J7030; Q9967

== ENCOUNTER 2020-04-22 00:30 | Emergency (ER) | payer MEDICARE, MEDICAID, SELFPAY ==
[2020-04-22 00:35] VITALS: BP 105/68; PULSE 100; RESP 20; TEMP 38.4; O2SAT 90; BMI 21.9
[2020-04-22 01:04] LABS: Basophils # 0.1 10^3/uL (0.0-0.1); Basophils % 0.5 %; Eosinophils # 0.1 10^3/uL (0.0-0.8); Eosinophils % 0.8 %; Hematocrit 38.5 % (37.0-47.0); Hemoglobin 12.1 g/dL (11.5-15.3); Lymphocytes # 1.1 10^3/uL (0.8-4.8); Lymphocytes % 9.8 %; Mean Corpuscular HGB Conc 31.4 g/dL (30.0-36.0); Mean Corpuscular Hemoglobin 28.9 pg (28.0-34.0); Mean Corpuscular Volume 91.9 fL (81-99); Monocytes % 9.4 %; Neutrophils # 8.7 10^3/uL (1.8-7.7); Neutrophils % 79.2 %; Nucleated Red Blood Cells % 0 %; Platelet Count 267 10^3/cmm (130-400); Red Blood Count 4.19 10^6/uL (4.1-5.3); Red Cell Distribution Width 13.8 % (12.1-15.1)
--- NOTE | 2020-04-22 01:10 | XRR_ITS ---
PROCEDURE INFORMATION: Exam: XR Chest, 1 View Exam date and time: 04/22/2020 1:12 AM Age: 45 years old Clinical indication: Fever TECHNIQUE: Imaging protocol: XR of the chest Views: 1 view. COMPARISON: CR XR chest 1V portable [id number] 12/05/2019 10:12 AM FINDINGS: Lungs: Unremarkable. No consolidation. Pleural space: Unremarkable. No pleural effusion. No pneumothorax. Heart/Mediastinum: Unremarkable. No cardiomegaly. Bones/joints: Unremarkable. XR/XR chest 1V portable [id number] IMPRESSION: No acute findings.
[2020-04-22 01:29] LABS: Alanine Aminotransferase 15 U/L (0-33); Albumin Level 3.9 g/dL (3.5-5.2); Alkaline Phosphatase 85 IU/L (35-105); Anion Gap 18.1 (5-19); Aspartate Amino Transferase 17 U/L (0-32); Blood Urea Nitrogen 18 mg/dL (6-20); Calcium 9.7 mg/dL (8.5-10.5); Carbon Dioxide 19 mmol/L (22-29); Chloride 103 mmol/L (98-107); Creatinine Clr Calc Pharmacy 72.6643; Globulin 3.9 g/dL (1.3-4.6); Glomerular Filtration Rate 77.6 mL/min (90-130); Glucose 120 mg/dL (65-115); Osmolality Calculated 280 mOsm/kg (285-295); Potassium 4.1 mmol/L (3.5-5.1); Sodium 136 mmol/L (136-145); Total Bilirubin 0.3 mg/dL (0.15-1.2); Total Protein 7.8 g/dL (6.6-8.7)
[2020-04-22 01:31] LABS: Lactic Sepsis W/Reflex 0.8 mmol/L (0.5-2.2)
[2020-04-22] MEDS: ondansetron 2 mg/ML SDV 2 mL 4 MG IVP (02:30)
[2020-04-22 02:40] VITALS: RESP 20; O2SAT 99
[2020-04-22] MEDS: HYDROmorphone 1 mg/mL INJ 1 mL IVP (02:40)
[2020-04-22] MEDS: sodium chloride 0.9% 1,000 ML 999 ML IV (04:00)
[2020-04-22 04:48] LABS: Specific Gravity, Urine 1.005 (1.005-1.030); Urine Appearance Cloudy (CLEAR); Urine Color Straw (Yellow); pH Urine 5 (5-7)
[2020-04-22 04:49] LABS: Add Urine Microscopic? YES; Bilirubin Urine Neg (NEGATIVE); Blood Urine 3+ (Negative); Glucose Urine UA Norm (Normal); Ketones Urine Negative (Negative); Leukocyte Esterase Urine 2+ (Negative); Nitrate Urine Positive (Negative); Protein Urine Neg (Negative); Urobilinogen Urine Norm (Negative)
[2020-04-22 04:56] LABS: RBC Urine 15-25 /hpf (0-2); WBC Urine TOO NUMEROUS TO CNT /hpf (0-5)
[2020-04-22 04:57] LABS: Add Urine Culture? Yes; Bacteria Urine 2+
--- NOTE | 2020-04-22 06:31 | PC.NURSE ---
Pt's b/p and o2 sats dropping after dilaudid adm. Pt placed on 2lpm of o2. sats increased to 95%. notified
--- NOTE | 2020-04-22 06:32 | W.ED.FEMALGU ---
HPI - Female Genitourinary General: Chief complaint: Urogenital-Female Stated complaint: FEVER/ NAUSEA/ PAIN Time Seen by Provider: 04/22/20 01:05 History of Present Illness: HPI Narrative: 45-year-old partial quadriplegia patient from the retirement. She presents with a fever and increasing pain. She has a chronic indwelling catheter. No cough or shortness of breath MD elicited complaint: dysuria and UTI Onset (ago): day(s) Location of symptoms: suprapubic Severity: moderate Female Urogenital Radiation: Non-Radiating Quality of pain: cramping and sharp Vaginal bleeding: none Urinary symptoms: Difficulty Urinating and Dysuria Exacerbating factors: urination Relieving factors: none Associated symptoms: Reports fevers/chills and nausea; Deny headache(s) Review of Systems Const: Denies: fever(s) or chills Eyes: Denies: change in vision ENMT: Denies: swelling of lips/tongue or sinus pain Card: Denies: chest pain, palpitations or irregular heart rhythm Resp: Denies: dyspnea, productive cough, non-productive cough or wheezing GI: Reports: nausea : Reports: dysuria and urinary frequency; Denies: urinary urgency or hematuria Musc: Reports: back pain; Denies: neck pain Skin/Breast: Denies: rash, pruritus or erythema Neuro: Denies: headache(s), dizziness or vertigo Psych: Denies: anxiety PFSH ED PFSH: Medical History (Updated 04/22/20 @ 05:20 by Ari Gunderson DO) Chronic indwelling Dumont catheter Neurogenic bladder Chronic indwelling catheter at this point Post-traumatic quadriplegia Recurrent sepsis due to urinary tract infection Surgical History H/O bladder repair surgery H/O cystoscopy H/O partial cystectomy H/O Spinal surgery History of hysterectomy History of partial gastrectomy Family History Other CAD (coronary artery disease) Diabetes Hypertension Social History Smoking and tobacco status: former smoker Alcohol intake: never Household members: spouse Housing: House Marital status: Current occupational status: disabled Physical Exam Const: GENERAL APPEARANCE: well developed ORIENTATION/CONSCIOUSNESS: Yes oriented to person, Yes oriented to place and Yes oriented to time HENMT: COMMON NORMALS: normocephalic, external ears normal and Normal external nose present HEAD & SCALP: normocephalic FACE & SINUS: normal facial exam NOSE: Normal external nose present and No nasal discharge present EXTERNAL EAR: Yes external ears normal THROAT: posterior oropharynx normal; no peritonsillar mass Eye: COMMON NORMALS: Equal, round and reactive pupils present, EOMs intact bilaterally and conjunctivae normal EYELID: eyelids normal CONJUNCTIVA: Yes conjunctivae normal PUPIL: Yes Equal, round and reactive pupils present Chest: COMMONS NORMALS: normal inspection of the chest CHEST: No tenderness Resp: COMMON NORMALS: clear to auscultation bilaterally EFFORT & INSPECTION: No tachypneic, No respiratory distress, No retractions, No uses accessory muscles and No tracheal deviation AUSCULTATION: clear to auscultation bilaterally, no rhonchi, no wheezes and lung sounds not diminished Cardio: COMMON NORMALS: regular rate and regular rhythm RATE: regular rate RHYTHM: regular rhythm HEART SOUNDS: no murmurs PERIPHERAL PULSES: radial pulses present GI: INSPECTION: No abdominal distension AUSCULTATION: No Hyperactive bowel sounds present and No Hypoactive bowel sounds present PALPATION: Yes Tenderness to palpation present (GI) (Suprapubic), No Guarding due to palpation present (GI) and No Rigid due to palpation PERCUSSION: no dullness to percussion and no tympanic to percussion Neuro: SENSORIUM/ORIENTATION: Yes oriented to person, Yes oriented to place and Yes oriented to time Psych: COMMON NORMALS: mental status grossly normal Skin: COMMON NORMALS: no rashes or lesions noted GENERAL SKIN EXAM: no rashes or lesions noted Course ED course: Suprapubic tenderness and fever in a patient with an indwelling catheter. White blood cell count is only 11. Her blood pressure is mildly soft, has been essentially 90/50, except for right after pain medication, but she is non-tachycardic. She runs low blood pressures by history. She is received some IV fluid, and Rocephin. She last grew E. coli from her urine which was sensitive to Rocephin. She does have a urinary tract infection. Since she is not vomiting, she will be allowed back to the home on cefdinir Vital Signs: Vital signs: Vital Signs Temperature 101.1 F H 04/22/20 00:35 Pulse Rate 100 04/22/20 00:35 Respiratory Rate 20 H 04/22/20 02:40 Blood Pressure 105/68 04/22/20 00:35 Pulse Oximetry 99 04/22/20 02:40 MDM - Female Lab Data: Labs: Lab Results 04/22/20 04/22/20 04/22/20 Range/Units 00:53 00:53 00:53 WBC 11.0 H (4.0-10.0) 10^3/ uL RBC 4.19 (4.1-5.3) 10^6/u L Hgb 12.1 (11.5-15.3) g/dL Hct 38.5 (37.0-47.0) % MCV 91.9 (81-99) fL MCH 28.9 (28.0-34.0) pg MCHC 31.4 (30.0-36.0) g/dL RDW 13.8 (12.1-15.1) % Plt Count 267 (130-400) 10^3/c mm MPV 10.0 (7.4-10.4) fL Neut % (Auto) 79.2 % Lymph % (Auto) 9.8 % [place] % (Auto) 9.4 % Eos % (Auto) 0.8 % Baso % (Auto) 0.5 % Neut # (Auto) 8.7 H (1.8-7.7) 10^3/u L Lymph # (Auto) 1.1 (0.8-4.8) 10^3/u L [place] # (Auto) 1.0 H (0.2-0.9) 10^3/u L Eos # (Auto) 0.1 (0.0-0.8) 10^3/u L Baso # (Auto) 0.1 (0.0-0.1) 10^3/u L Nucleated RBC % (a uto) 0 % Nucleated RBCs # 0.0 /100WBC Sodium 136 (136-145) mmol/L Potassium 4.1 (3.5-5.1) mmol/L Chloride 103 (98-107) mmol/L Carbon Dioxide 19 L (22-29) mmol/L Anion Gap 18.1 (5-19) BUN 18 (6-20) mg/dL Creatinine 0.8 (0.5-0.9) mg/dL GFR Calculation 77.6 L (90-130) mL/min Glucose 120 H (65-115) mg/dL Calculated Osmolal ity 280 L (285-295) mOsm/k g Lactic Acid 0.8 (0.5-2.2) mmol/L Calcium 9.7 (8.5-10.5) mg/dL Total Bilirubin 0.3 (0.15-1.2) mg/dL AST 17 (0-32) U/L ALT 15 (0-33) U/L Alkaline Phosphata se 85 (35-105) IU/L Total Protein 7.8 (6.6-8.7) g/dL Albumin 3.9 (3.5-5.2) g/dL Globulin 3.9 (1.3-4.6) g/dL Urine Color (Yellow) Urine Appearance (CLEAR) Urine pH (5-7) Ur Specific Gravit y (1.005-1.030) Urine Protein (Negative) Urine Glucose (UA) (Normal) Urine Ketones (Negative) Urine Blood (Negative) Urine Nitrate (Negative) Urine Bilirubin (NEGATIVE) Urine Urobilinogen (Negative) mg/dL Ur Leukocyte Maggi ase (Negative) Urine RBC (0-2) /hpf Urine WBC (0-5) /hpf Ur Squamous Epith Cells (0-5) Amorphous Sediment Urine Bacteria (NONE) 04/22/ Range/Units 04:15 WBC (4.0-10.0) 10^3/ uL RBC (4.1-5.3) 10^6/u L Hgb (11.5-15.3) g/dL Hct (37.0-47.0) % MCV (81-99) fL MCH (28.0-34.0) pg MCHC (30.0-36.0) g/dL RDW (12.1-15.1) % Plt Count (130-400) 10^3/c mm MPV (7.4-10.4) fL Neut % (Auto) % Lymph % (Auto) % [place] % (Auto) % Eos % (Auto) % Baso % (Auto) % Neut # (Auto) (1.8-7.7) 10^3/u L Lymph # (Auto) (0.8-4.8) 10^3/u L [place] # (Auto) (0.2-0.9) 10^3/u L Eos # (Auto) (0.0-0.8) 10^3/u L Baso # (Auto) (0.0-0.1) 10^3/u L Nucleated RBC % (a uto) % Nucleated RBCs # /100WBC Sodium (136-145) mmol/L Potassium (3.5-5.1) mmol/L Chloride (98-107) mmol/L Carbon Dioxide (22-29) mmol/L Anion Gap (5-19) BUN (6-20) mg/dL Creatinine (0.5-0.9) mg/dL GFR Calculation (90-130) mL/min Glucose (65-115) mg/dL Calculated Osmolal ity (285-295) mOsm/k g Lactic Acid (0.5-2.2) mmol/L Calcium (8.5-10.5) mg/dL Total Bilirubin (0.15-1.2) mg/dL AST (0-32) U/L ALT (0-33) U/L Alkaline Phosphata se (35-105) IU/L Total Protein (6.6-8.7) g/dL Albumin (3.5-5.2) g/dL Globulin (1.3-4.6) g/dL Urine Color Straw (Yellow) Urine Appearance Cloudy (CLEAR) Urine pH 5 (5-7) Ur Specific Gravit y 1.005 (1.005-1.030) Urine Protein Neg (Negative) Urine Glucose (UA) Norm (Normal) Urine Ketones Negative (Negative) Urine Blood 3+ H (Negative) Urine Nitrate Positive H (Negative) Urine Bilirubin Neg (NEGATIVE) Urine Urobilinogen Norm (Negative) mg/dL Ur Leukocyte Maggi ase 2+ H (Negative) Urine RBC 15-25 H (0-2) /hpf Urine WBC Too numerous to c nt H (0-5) /hpf Ur Squamous Epith Cells 5-10 H (0-5) Amorphous Sediment Not Reportable Urine Bacteria 2+ H (NONE) Discharge Plan Discharge Patient Disposition: Home, Self-Care Clinical Impression: Urinary tract infection Qualifiers: Urinary tract infection type: acute cystitis Hematuria presence: with hematuria Qualified Code(s): N30.01 - Acute cystitis with hematuria Condition: Stable Prescriptions: New cefdinir 300 mg capsule 300 mg PO Q12H 10 Days Qty: 20 RF: 0 Discontinued cefdinir 300 mg Capsule 300 mg PO DAILY RF: 0 No Action fentanyl 50 mcg/hr Patch 72 Hour 1 patch TRANSDERMAL Q72H RF: 0 Vitamin C 1,000 mg Tablet 1,000 mg PO BID RF: 0 Tylenol 325 mg Tablet 650 mg PO QID PRN (Reason: Pain) RF: 0 Diflucan 150 mg Tablet 150 mg PO DIRECTED RF: 0 Emerado 5-325 mg Tablet 1 tab PO BID PRN (Reason: Pain) RF: 0 Zofran 4 mg Tablet 4 mg PO Q8H PRN (Reason: Nausea) RF: 0 gentian bucky 1 % Solution 1 applic TOPICAL DIRECTED RF: 0 methenamine hippurate 1 gram Tablet 1 g PO BID RF: 0 Milk of Magnesia 400 mg/5 mL Suspension 30 ml PO DAILY PRN (Reason: Constipation) RF: 0 Dulcolax (bisacodyl) 10 mg Suppository 10 mg PA DAILY PRN (Reason: Constipation) RF: 0 pantoprazole 40 mg Tablet,Delayed Release (Dr/Ec) 40 mg PO DAILY RF: 0 nystatin 100,000 unit/gram Cream 1 applic TOPICAL DAILY RF: 0 Fleet Enema 19-7 gram/118 mL Enema 118 ml PA DAILY PRN (Reason: Constipation) RF: 0 gabapentin 100 mg Capsule 100 mg PO TID RF: 0 docusate sodium 100 mg Tablet 200 mg PO BEDTIME RF: 0 lactulose 10 gram/15 mL (15 mL) Solution 10 g PO DAILY RF: 0 baclofen 5 mg Tablet 5 mg PO TID PRN (Reason: Pain) RF: 0 Discharge Orders: Discharge Order (Routine); Ordered 04/22/20 Ordered By: Ari Gunderson Referrals: Cade Castaneda MD [Primary Care Provider] - 4-7 days Discharge Diet: Advance as tolerated Discharge Activity: Increase activity as tolerated Patient Instructions: Urinary Tract Infection in Women (ED) Activity Restrictions/Additional Instructions: Return for fever despite 3 doses of antibiotics, worsening mental status, worsening pain despite treatment, other concerning symptoms. Coding Level of Care Code ED Mother'S Helper for Julien Magaña
[2020-04-22 07:04] VITALS: BP 92/56; PULSE 72; RESP 18; O2SAT 98
[2020-04-22] MEDS: cefTRIAXone 1,000 mg SDV 1000 MG IM (07:29)
[2020-04-22] MEDS: acetaminophen 500 mg Tablet 1000 MG PO (07:30)
[2020-04-22] MEDS: water for injection-sterile 10 ML 2.1 ML (07:30)
[2020-04-22 08:10] VITALS: BP 99/60; PULSE 72; RESP 18; TEMP 37.2; O2SAT 98
== END 2020-04-22 08:12 | disposition home or self-care (01) ==
PROVIDERS: Nurse Practitioner Family; Emergency Provider Emergency Medicine; PCP Family Medicine
DX: N30.01 Acute cystitis with hematuria (principal); Z87.891 Personal history of nicotine dependence
CPT/HCPCS: 12345; 71045; 80053; 81001; 83605; 85025; 87040; 87077; 87086; 87186; 87205; 96360; 96361; 96365; 96372; 96375; 99283; 99285; J0696; J1170; J2405; J7030

== ENCOUNTER 2020-05-28 17:38 | Emergency (ER) | payer MEDICARE, MEDICAID, SELFPAY ==
[2020-05-28] VITALS (9 sets, daily range): BP systolic 103–143; BP diastolic 56–79; PULSE 68–105; RESP 17–18; TEMP 36.7; O2SAT 94–98; BMI 21.9
--- NOTE | 2020-05-28 17:52 | W.ED.GENADLT ---
HPI - General Adult General: Chief complaint: General Medical Stated complaint: UNCONTROLLED PAIN Time Seen by Provider: 05/28/20 17:48 History of Present Illness: HPI narrative: Patient is a 45-year-old female comes to the ED with uncontrolled pain. Patient has a past medical history of posttraumatic quadriplegia, neurogenic bladder and has a Alfaro catheter placed. Patient reports having pain and burning in the bladder for the past 4 days along with generalized body pain including lower abdomen for the past 2 days. She states she has been in such severe pain that she cannot sleep. She also has been nauseous and vomited multiple times daily for the past couple days as well. When I asked patient to be more specific about where most of her pain is she continues to say it is generalized, but highlights that some pain is in the bladder. She rates her pain a 10 out of 10. She endorses having some constipation at her last bowel movement was approximately 4 days ago. Associated symptoms: Deny chest pain, dyspnea, headache(s), nausea, rash, palpitations or vomiting Review of Systems Const: Reports: change in sleep pattern (Lack of sleep due to pain for the past 2 nights.) and other (Uncontrolled generalized pain.); Denies: fever(s), chills or fatigue Eyes: Denies: change in vision or eye discomfort ENMT: Denies: throat pain, odynophagia, nasal discharge or nasal congestion Card: Denies: chest pain, palpitations, edema, swelling of feet/ankles, dyspnea on exertion or orthopnea Resp: Denies: dyspnea, productive cough or non-productive cough GI: Reports: abdominal pain; Denies: nausea, vomiting, diarrhea, constipation or hematochezia : Reports: dysuria, pelvic pain (bladder pain) and other (alfaro catheter in place); Denies: flank pain or hematuria Musc: Denies: neck pain, back pain or extremity swelling Skin/Breast: Denies: rash or new lesions Neuro: Denies: headache(s), numbness in extremities or weakness in extremities PFS ED PFSH: Medical History Chronic indwelling Alfaro catheter Neurogenic bladder Chronic indwelling catheter at this point Post-traumatic quadriplegia Recurrent sepsis due to urinary tract infection Surgical History H/O bladder repair surgery H/O cystoscopy H/O partial cystectomy H/O Spinal surgery History of hysterectomy History of partial gastrectomy Family History Other CAD (coronary artery disease) Diabetes Hypertension Social History Smoking and tobacco status: former smoker Alcohol intake: never Household members: spouse Housing: House Marital status: Current occupational status: disabled Physical Exam Const: COMMON NORMALS: no acute distress and patient oriented x3 EXAM LIMITATIONS: physical limitations (Patient is quadriplegic) GENERAL APPEARANCE: cooperative HENMT: COMMON NORMALS: normocephalic HEAD & SCALP: normocephalic MOUTH: Normal oral and palatal mucosa present THROAT: posterior oropharynx normal and uvula midline Eye: COMMON NORMALS: Equal, round and reactive pupils present PUPIL: Yes Equal, round and reactive pupils present Neck/C-Spine: COMMON NORMALS: supple GENERAL: Yes normal visual inspection Resp: COMMON NORMALS: normal respiratory effort, No retractions, No use of accessory muscles and clear to auscultation bilaterally AUSCULTATION: clear to auscultation bilaterally Cardio: COMMON NORMALS: regular rate, regular rhythm, S1 normal heart sound present, S2 normal heart sound present, No gallops present (Cardio), No clicks present (Cardio), No murmurs present (Cardio) and Peripheral pulses 2+ throughout RATE: regular rate RHYTHM: regular rhythm HEART SOUNDS: S1 normal heart sound present and S2 normal heart sound present PERIPHERAL PULSES: Peripheral pulses 2+ throughout GI: COMMON NORMALS: Normal to inspection, nondistended, normoactive bowel sounds present, Soft to palpation, non-tender and no masses PALPATION: Yes Soft to palpation and Yes Bladder palpation abnormal : COMMON NORMALS: Yes no CVA tenderness BLADDER/KIDNEY EXAM: Yes catheter in place Catheter type (Female): urethral, Yes no CVA tenderness and Yes Bladder palpation abnormal Bladder abnormal details: tender Back/Pelvis: COMMON NORMALS: no CVA tenderness Extremity: COMMON NORMALS: no pedal edema NARRATIVE EXTREMITY EXAM: Patient is a quadriplegic and has no movement in all 4 limbs. Neuro: COMMON NORMALS: patient oriented x3 Skin: COMMON NORMALS: no rashes or lesions noted GENERAL SKIN EXAM: no rashes or lesions noted and dry skin Course Consultations: Consultation #1: I contacted Dr. Culp and discussed patient's case with him. He recommended if patient does not have any signs of sepsis, she can be discharged and put on Levaquin to treat UTI. Patient has scheduled follow-up with Dr. Culp on June 05. Vital Signs: Vital signs: Vital Signs Temperature 98.1 F 05/28/20 17:38 Pulse Rate 95 05/28/20 22:42 Respiratory Rate 17 05/28/20 22:42 Blood Pressure 137/56 05/28/20 22:42 Pulse Oximetry 98 05/28/20 22:42 MDM - General Adult MDM Narrative: Medical decision making narrative: Patient is a 45-year-old female comes to the ED with bladder pain. Patient has indwelling Alfaro catheter. White blood cell count 14.3 and UA showed a lot of white blood cells, red blood cells and bacteria. CT of the abdomen pelvis showed bilateral upper urinary tract infection, with no signs of pyelonephritis. Patient was given IV fluids and IV Rocephin while here in the ED. I contacted Dr. Culp to discuss patient's case and he recommended sending her home as long as she is not septic and putting her on Levaquin. Patient has a follow-up appoint with Dr. Culp on June 05. Patient was sent home with a prescription of Levaquin, Reglan and Robaxin. Return to ED precautions given. Patient understood and agreed with plan. Lab Data: Attestation: I reviewed the patient's lab results. Labs: Lab Results 05/28/20 05/28/20 05/28/20 Range/Units 17:59 17:59 21:10 WBC 14.3 H (4.0-10.0) 10^3/ uL RBC 4.51 (4.1-5.3) 10^6/u L Hgb 13.0 (11.5-15.3) g/dL Hct 40.1 (37.0-47.0) % MCV 88.9 (81-99) fL MCH 28.8 (28.0-34.0) pg MCHC 32.4 (30.0-36.0) g/dL RDW 14.4 (12.1-15.1) % Plt Count 305 (130-400) 10^3/c mm MPV 9.4 (7.4-10.4) fL Neut % (Auto) 85.0 % Lymph % (Auto) 6.4 % [place] % (Auto) 7.8 % Eos % (Auto) 0.2 % Baso % (Auto) 0.2 % Neut # (Auto) 12.12 H (1.8-7.7) 10^3/u L Lymph # (Auto) 0.9 (0.8-4.8) 10^3/u L [place] # (Auto) 1.1 H (0.2-0.9) 10^3/u L Eos # (Auto) 0.0 (0.0-0.8) 10^3/u L Baso # (Auto) 0.0 (0.0-0.1) 10^3/u L Nucleated RBC % (a uto) 0 % Nucleated RBCs # 0.0 /100WBC Sodium 137 (136-145) mmol/L Potassium 3.7 (3.5-5.1) mmol/L Chloride 102 (98-107) mmol/L Carbon Dioxide 21 L (22-29) mmol/L Anion Gap 17.7 (5-19) BUN 10 (6-20) mg/dL Creatinine 0.8 (0.5-0.9) mg/dL GFR Calculation 77.6 L (90-130) mL/min Glucose 111 (65-115) mg/dL Calculated Osmolal ity 281 L (285-295) mOsm/k g Calcium 8.9 (8.5-10.5) mg/dL Total Bilirubin 0.2 (0.15-1.2) mg/dL AST 15 (0-32) U/L ALT 12 (0-33) U/L Alkaline Phosphata se 74 (35-105) IU/L C-Reactive Protein 28.4 H (0.0-4.9) mg/L Total Protein 8.5 (6.6-8.7) g/dL Albumin 4.0 (3.5-5.2) g/dL Globulin 4.5 (1.3-4.6) g/dL Urine Color Yellow (Yellow) Urine Appearance Cloudy (CLEAR) Urine pH 5 (5-7) Ur Specific Gravit y 1.015 (1.005-1.030) Urine Protein 1+ H (Negative) Urine Glucose (UA) Norm (Normal) Urine Ketones 1+ H (Negative) Urine Blood 3+ H (Negative) Urine Nitrate Negative (Negative) Urine Bilirubin Neg (NEGATIVE) Prot Sulfosalicyli c Acd Negative (Negative) Urine Urobilinogen Norm (Negative) mg/dL Ur Leukocyte Maggi ase 2+ H (Negative) Urine RBC 25-40 H (0-2) /hpf Urine WBC >100 H (0-5) /hpf Ur Squamous Epith Cells 0-4 H (0-5) Amorphous Sediment Not Reportable Urine Bacteria 2+ H (NONE) Imaging Data^: CT Abd/Pel: Attestation: I personally reviewed and interpreted this imaging study as follows: Radiologist's impression: [place] [address] CT Scan Report Signed Patient: Rosanne Morales Unit #: [id number] : 1975 Age/Sex: 45 / F ADM Date: 05/28/20 Loc: ER Room/Bed: Attending Dr: Ordering Provider/Ordering MD: Abrahan Ruiz Date of Service: 05/28/20 Procedure(s): CT abdomen pelvis w con* [id number] Accession Number(s): [id number] Report Number: [id number] PROCEDURE INFORMATION: Exam: CT Abdomen And Pelvis With Contrast Exam date and time: 05/28/2020 7:47 PM Age: 45 years old Clinical indication: Nausea and vomiting; Abdominal pain; Prior surgery; Surgery type: Hyst, bladder, spine; Additional info: Abdominal pain, n/v TECHNIQUE: Imaging protocol: Computed tomography of the abdomen and pelvis with intravenous contrast. Radiation optimization: All CT scans at this facility use at least one of these dose optimization techniques: automated exposure control; mA and/or kV adjustment per patient size (includes targeted exams where dose is matched to clinical indication); or iterative reconstruction. Contrast material: OMNI 300; Contrast volume: 75 ml; Contrast route: INTRAVENOUS (IV); COMPARISON: CT abdomen pelvis wo con [id number] 03/04/2020 1:10 PM RADIATION DOSE METRICS: Total DLP (mGy-cm): 1557.62 FINDINGS: Lungs: Minor right basilar atelectasis. Liver: Normal. No mass. Gallbladder and bile ducts: The gallbladder is enlarged up to 8.7 cm and may have a slightly thickened wall. No visible stones or biliary obstruction. Pancreas: Normal. No ductal dilation. Spleen: Normal. No splenomegaly. Adrenals: Unchanged fatty left adrenal adenoma measuring 2 x 1 cm. Kidneys and ureters: The abnormal wall enhancement in the bilateral urothelium within the kidneys and ureters. Findings are typical for upper urinary tract infection. No evidence of pyelonephritis. Several scars in both kidneys. 4 mm nonobstructing calculus in the left upper renal pole. Stomach and bowel: Chronic gastric postop changes. Increased fecal loading in the rectosigmoid colon. No evidence of mechanical obstruction. Appendix: The appendix is normal. Intraperitoneal space: Unremarkable. No free air. No significant fluid collection. Vasculature: Unremarkable. No abdominal aortic aneurysm. Lymph nodes: Unremarkable. No enlarged lymph nodes. Bladder: The urinary bladder is decompressed by catheter. Reproductive: Unchanged 3.9 cm simple right adnexal cyst. Several additional right adnexal cysts are also unchanged measuring up to 2.7 cm. The uterus is absent. Bones/joints: Mild osteoarthritic changes in both hip joints. Soft tissues: Unremarkable. CT/CT abdomen pelvis w con* [id number] IMPRESSION: 1. Bilateral upper urinary tract infections. No obstruction or evidence of pyelonephritis. 2. Unchanged right adnexal cysts up to 3.9 cm. 3. Mildly distended gallbladder. No visible stones or obstruction. 4. Other chronic and incidental findings as described Radiation Dose CTDIVOL = (mGy): DLP = 1557.62 (mGy-cm) Dictated By: Cornel Diaz MD Signed By: Cornel Diaz MD Signed Date/Time: 05/28/202040 DD/ 38 Discharge Plan Discharge Patient Disposition: Home Clinical Impression: UTI (urinary tract infection) Qualifiers: Urinary tract infection type: catheter-associated UTI Indwelling urinary catheter type: indwelling urethral catheter Encounter type: initial encounter Qualified Code(s): T83.511A - Infection and inflammatory reaction due to indwelling urethral catheter, initial encounter Condition: Stable Prescriptions: New levofloxacin 250 mg tablet 250 mg PO DAILY 10 Days Qty: 10 RF: 0 metoclopramide HCl 10 mg tablet 10 mg PO Q6H PRN (Reason: nausea and vomiting) Qty: 20 RF: 0 methocarbamol 750 mg tablet 750 mg PO Q8H Qty: 20 RF: 0 No Action fentanyl 50 mcg/hr Patch 72 Hour 1 patch TRANSDERMAL Q72H RF: 0 ascorbic acid (vitamin C) [Vitamin C] 1,000 mg Tablet 1,000 mg PO BID RF: 0 acetaminophen [Tylenol] 325 mg Tablet 650 mg PO Q6H PRN (Reason: Pain) RF: 0 fluconazole [Diflucan] 150 mg Tablet 150 mg PO PRN RF: 0 hydrocodone-acetaminophen [[place]] 5-325 mg Tablet 1 tab PO Q6H PRN (Reason: Pain) RF: 0 ondansetron HCl [Zofran] 4 mg Tablet 4 mg PO Q8H PRN (Reason: Nausea) RF: 0 gentian bucky 1 % Solution 1 applic TOPICAL DAILY RF: 0 methenamine hippurate 1 gram Tablet 1 g PO BID RF: 0 magnesium hydroxide [Milk of Magnesia] 400 mg/5 mL Suspension 30 ml PO DAILY PRN (Reason: Constipation) RF: 0 bisacodyl [Dulcolax (bisacodyl)] 10 mg Suppository 10 mg LA DAILY PRN (Reason: Constipation) RF: 0 pantoprazole 40 mg Tablet,Delayed Release (Dr/Ec) 40 mg PO DAILY RF: 0 nystatin 100,000 unit/gram Cream See Rx Instructions .ROUTE .COMPLEX RF: 0 Fleet Enema 19-7 gram/118 mL Enema 118 ml LA DAILY PRN (Reason: Constipation) RF: 0 gabapentin 100 mg Capsule 100 mg PO TID RF: 0 docusate sodium 100 mg Tablet 100 mg PO BID RF: 0 lactulose 10 gram/15 mL (15 mL) Solution 15 ml PO BID RF: 0 Senna Plus 8.6-50 mg Tablet 2 tab PO BID RF: 0 Zoloft 25 mg Tablet 25 mg PO DAILY RF: 0 hydroxyzine HCl 25 mg Tablet 25 mg PO Q8H PRN (Reason: Anxiety) RF: 0 Dulcolax (bisacodyl) 5 mg Tablet,Delayed Release (Dr/Ec) 10 mg PO DAILY PRN (Reason: Constipation) RF: 0 cefdinir 300 mg Capsule 300 mg PO DAILY RF: 0 Seroquel 50 mg Tablet 50 mg PO BID RF: 0 baclofen 5 mg Tablet 10 mg PO TID RF: 0 Discharge Orders: Discharge Order (Routine); Ordered 05/28/20 Ordered By: Abrahan Ruiz Referrals: Cade Castaneda MD [Primary Care Provider] - Discharge Diet: Advance as tolerated and Clear Liquid Discharge Activity: Increase activity as tolerated Patient Instructions: Urinary Tract Infection in Women (ED), Alfaro Catheter Placement and Care (ED) Activity Restrictions/Additional Instructions: Follow-up with medical provider as directed at your next scheduled appointment with Dr. Culp on the . Contact him sooner if needed. Take medications as prescribed. You can stop taking the cefdinir antibiotic and start taking the newly prescribed Levaquin. I also am sending you with a prescription for Reglan for nausea so you can use that instead of the Zofran and Robaxin is a different muscle relaxer that you can use instead of the baclofen. Continue taking previously prescribed pain medications. Return to the ER or your medical provider if condition worsens. Please read and understand discharge instructions. If any questions, please ask. Discharge Date/Time: 05/28/20 22:44 Coding Level of Care Code ED [facility] [employer] for [facility] Fwd Exam Comprehensive
[2020-05-28 18:04] LABS: Basophils % 0.2 %; Eosinophils % 0.2 %; Hematocrit 40.1 % (37.0-47.0); Lymphocytes # 0.9 10^3/uL (0.8-4.8); Lymphocytes % 6.4 %; Mean Corpuscular HGB Conc 32.4 g/dL (30.0-36.0); Mean Corpuscular Hemoglobin 28.8 pg (28.0-34.0); Mean Corpuscular Volume 88.9 fL (81-99); Mean Platelet Volume 9.4 fL (7.4-10.4); Monocytes # 1.1 10^3/uL (0.2-0.9); Monocytes % 7.8 %; Neutrophils # 12.12 10^3/uL (1.8-7.7); Nucleated Red Blood Cells % 0 %; Platelet Count 305 10^3/cmm (130-400); Red Blood Count 4.51 10^6/uL (4.1-5.3); Red Cell Distribution Width 14.4 % (12.1-15.1); White Blood Count 14.3 10^3/uL (4.0-10.0)
--- NOTE | 2020-05-28 18:16 | XRR_ITS ---
PROCEDURE INFORMATION: Exam: XR Abdomen, 1 View Exam date and time: 05/28/2020 7:12 PM Age: 45 years old Clinical indication: Patient HX: Constipation. HX of quadropalegic TECHNIQUE: Imaging protocol: XR of the abdomen. Views: Frontal supine view of the abdomen. 1 View. COMPARISON: CT abdomen pelvis wo con [id number] 03/04/2020 1:10 PM FINDINGS: Gastrointestinal tract: Small collection of fecal debris in the distal colon within the central pelvis. Otherwise no significant fecal volume throughout the remainder of the colon. No extreme gaseous distension of bowel. Organs: No evidence of organomegaly. Vasculature: Calcifications within the pelvis suggestive of phleboliths. Bones/joints: Oval 0.47 cm calcification overlies the right sacroiliac joint. Lumbar curvature left concavity. XR/XR KUB portable [id number] IMPRESSION: 1. Nonspecific gas pattern with small focal collection of fecal debris distal colon in the pelvis. 2. Pelvic calcifications which may reflect phleboliths.
[2020-05-28 18:23] LABS: Alanine Aminotransferase 12 U/L (0-33); Alkaline Phosphatase 74 IU/L (35-105); Anion Gap 17.7 (5-19); Aspartate Amino Transferase 15 U/L (0-32); Blood Urea Nitrogen 10 mg/dL (6-20); C Reactive Protein 28.4 mg/L (0.0-4.9); Calcium 8.9 mg/dL (8.5-10.5); Carbon Dioxide 21 mmol/L (22-29); Chloride 102 mmol/L (98-107); Creatinine Clr Calc Pharmacy 72.6643; Globulin 4.5 g/dL (1.3-4.6); Glomerular Filtration Rate 77.6 mL/min (90-130); Glucose 111 mg/dL (65-115); Osmolality Calculated 281 mOsm/kg (285-295); Potassium 3.7 mmol/L (3.5-5.1); Sodium 137 mmol/L (136-145); Total Bilirubin 0.2 mg/dL (0.15-1.2); Total Protein 8.5 g/dL (6.6-8.7)
[2020-05-28] MEDS: morphine 4 mg/mL SDV 1 mL IVP (19:25)
[2020-05-28] MEDS: ondansetron 2 mg/ML SDV 2 mL 4 MG IVP (19:25)
[2020-05-28] MEDS: sodium chloride 0.9% 1,000 ML 999 ML IV (19:26)
--- NOTE | 2020-05-28 19:35 | CTR_ITS ---
PROCEDURE INFORMATION: Exam: CT Abdomen And Pelvis With Contrast Exam date and time: 05/28/2020 7:47 PM Age: 45 years old Clinical indication: Nausea and vomiting; Abdominal pain; Prior surgery; Surgery type: Hyst, bladder, spine; Additional info: Abdominal pain, n/v TECHNIQUE: Imaging protocol: Computed tomography of the abdomen and pelvis with intravenous contrast. Radiation optimization: All CT scans at this facility use at least one of these dose optimization techniques: automated exposure control; mA and/or kV adjustment per patient size (includes targeted exams where dose is matched to clinical indication); or iterative reconstruction. Contrast material: OMNI 300; Contrast volume: 75 ml; Contrast route: INTRAVENOUS (IV); COMPARISON: CT abdomen pelvis wo con [id number] 03/04/2020 1:10 PM RADIATION DOSE METRICS: Total DLP (mGy-cm): 1557.62 FINDINGS: Lungs: Minor right basilar atelectasis. Liver: Normal. No mass. Gallbladder and bile ducts: The gallbladder is enlarged up to 8.7 cm and may have a slightly thickened wall. No visible stones or biliary obstruction. Pancreas: Normal. No ductal dilation. Spleen: Normal. No splenomegaly. Adrenals: Unchanged fatty left adrenal adenoma measuring 2 x 1 cm. Kidneys and ureters: The abnormal wall enhancement in the bilateral urothelium within the kidneys and ureters. Findings are typical for upper urinary tract infection. No evidence of pyelonephritis. Several scars in both kidneys. 4 mm nonobstructing calculus in the left upper renal pole. Stomach and bowel: Chronic gastric postop changes. Increased fecal loading in the rectosigmoid colon. No evidence of mechanical obstruction. Appendix: The appendix is normal. Intraperitoneal space: Unremarkable. No free air. No significant fluid collection. Vasculature: Unremarkable. No abdominal aortic aneurysm. Lymph nodes: Unremarkable. No enlarged lymph nodes. Bladder: The urinary bladder is decompressed by catheter. Reproductive: Unchanged 3.9 cm simple right adnexal cyst. Several additional right adnexal cysts are also unchanged measuring up to 2.7 cm. The uterus is absent. Bones/joints: Mild osteoarthritic changes in both hip joints. Soft tissues: Unremarkable. CT/CT abdomen pelvis w con* [id number] IMPRESSION: 1. Bilateral upper urinary tract infections. No obstruction or evidence of pyelonephritis. 2. Unchanged right adnexal cysts up to 3.9 cm. 3. Mildly distended gallbladder. No visible stones or obstruction. 4. Other chronic and incidental findings as described Radiation Dose CTDIVOL = (mGy): DLP = 1557.62 (mGy-cm)
[2020-05-28] MEDS: iohexol 300 mg/mL 100 mL Btl IV (20:01)
[2020-05-28] MEDS: HYDROmorphone 1 mg/mL INJ 1 mL IVP (20:28)
[2020-05-28] MEDS: cefTRIAXone 2,000 MG in sodium chloride 0.9% (plus) 50 ML 100 MG IV (21:32)
[2020-05-28] MEDS: HYDROmorphone 1 mg/mL INJ 1 mL 0.5 MG IVP (21:33)
[2020-05-28] MEDS: sodium chloride 0.9% 500 ML IV (21:33)
[2020-05-28 21:44] LABS: Add Urine Culture? Yes; Add Urine Microscopic? YES; Bacteria Urine 2+; Bilirubin Urine Neg (NEGATIVE); Blood Urine 3+ (Negative); Glucose Urine UA Norm (Normal); Ketones Urine 1+ (Negative); Leukocyte Esterase Urine 2+ (Negative); Nitrate Urine Negative (Negative); Protein Urine 1+ (Negative); RBC Urine 25-40 /hpf (0-2); Specific Gravity, Urine 1.015 (1.005-1.030); Squamous Epithelial Cell Urine 0-4 (0-5); Sulfosalicylic Acid Urine Negative (Negative); Urine Appearance Cloudy (CLEAR); Urine Color Yellow (Yellow); Urobilinogen Urine Norm (Negative); WBC Urine >100 /hpf (0-5); pH Urine 5 (5-7)
== END 2020-05-28 22:44 | disposition home or self-care (01) ==
PROVIDERS: Emergency Provider Physician Assistant; PCP Family Medicine
DX: T83.511A Infection and inflammatory reaction due to indwelling urethral catheter, initial encounter (principal); G82.50 Quadriplegia, unspecified; Z87.891 Personal history of nicotine dependence
CPT/HCPCS: 12345; 36415; 74018; 74177; 80053; 81001; 81003; 85025; 86140; 87040; 96361; 96365; 96375; 96376; 99283; 99284; J0696; J1170; J2270; J2405; J7030; J7040; Q9967

== ENCOUNTER 2020-06-02 18:58 | Emergency (ER) | payer MEDICARE, MEDICAID, SELFPAY ==
[2020-06-02 19:04] VITALS: BP 98/77; PULSE 95; RESP 18; TEMP 37.2; O2SAT 95; BMI 21.9
--- NOTE | 2020-06-02 19:07 | W.ED.ABDPA2 ---
HPI - Abdominal Pain General: Chief Complaint: Abdominal Pain Stated Complaint: RIGHT ABD PAIN Time Seen by Provider: 06/02/20 19:04 Source: patient and EMS Mode of arrival: EMS Limitations: no limitations History of Present Illness: HPI narrative: 45-year-old female is here from local senior care who has a history of being bedbound and has an indwelling Dumont. Patient was recently diagnosed with a UTI and is on oral antibiotics at [facility] but she is unsure what they are. Patient sent here from [facility] she had a supposed fever there of 101. Patient's temperature here is 99 8. She denies any cough. She states she feels like she is lower abdominal pain and body aches. Associated Symptoms: Reports fever(s); Denies dysuria Review of Systems Const: Reports: fever(s) Eyes: Denies: blurry vision or eye discomfort ENMT: Denies: throat pain or dental pain Card: Denies: chest pain Resp: Denies: dyspnea GI: Reports: abdominal pain : Denies: dysuria Musc: Denies: neck pain or back pain Skin/Breast: Denies: rash Neuro: Denies: headache(s) Psych: Denies: depression Raul/Lymph: Denies: easy bruising All/Imm: Denies: urticaria PFSH ED PFSH: Medical History (Updated 06/02/20 @ 21:35 by Liliana Anderson MD) Chronic indwelling Dumont catheter Neurogenic bladder Chronic indwelling catheter at this point Post-traumatic quadriplegia Recurrent sepsis due to urinary tract infection Surgical History H/O bladder repair surgery H/O cystoscopy H/O partial cystectomy H/O Spinal surgery History of hysterectomy History of partial gastrectomy Family History Other CAD (coronary artery disease) Diabetes Hypertension Social History Smoking and tobacco status: former smoker Alcohol intake: never Household members: spouse Housing: House Marital status: Current occupational status: disabled Physical Exam Const: COMMON NORMALS: no acute distress, patient oriented x3 and healthy appearing HENMT: COMMON NORMALS: normocephalic and atraumatic HEAD & SCALP: normocephalic and atraumatic Eye: COMMON NORMALS: Equal, round and reactive pupils present and EOMs intact bilaterally PUPIL: Yes Equal, round and reactive pupils present Neck/C-Spine: COMMON NORMALS: full ROM and supple Chest: COMMONS NORMALS: normal inspection of the chest and normal palpation of entire chest wall Resp: COMMON NORMALS: normal respiratory effort, No retractions, No use of accessory muscles and clear to auscultation bilaterally AUSCULTATION: clear to auscultation bilaterally Cardio: COMMON NORMALS: regular rate, regular rhythm and No murmurs present (Cardio) RATE: regular rate RHYTHM: regular rhythm GI: COMMON NORMALS: Normal to inspection, nondistended, normoactive bowel sounds present, Soft to palpation, non-tender and no masses PALPATION: Yes Soft to palpation : OTHER: Dumont in place Extremity: COMMON NORMALS: normal to inspection and full ROM Neuro: COMMON NORMALS: patient oriented x3, moves all extremities and no focal motor deficits Psych: COMMON NORMALS: mental status grossly normal, Normal thought process present and cooperative THOUGHT PROCESS: Normal thought process present Skin: COMMON NORMALS: no rashes or lesions noted and no wounds GENERAL SKIN EXAM: no rashes or lesions noted Course Vital Signs: Vital signs: Vital Signs Temperature 99.0 F 06/02/20 19:04 Pulse Rate 95 06/02/20 19:04 Respiratory Rate 18 06/02/20 21:25 Blood Pressure 98/77 06/02/20 19:04 Pulse Oximetry 95 06/02/20 19:04 MDM - Abdominal Pain MDM Narrative: Medical decision making narrative: Rosanne presents here with fever along with belly pain is likely urinary tract infection. Patient had a CT scan less than a week ago that was normal. Her abdominal exam here is benign. She is afebrile here and has normal blood pressures. Her lactate and white count are normal and no signs of sepsis. Patient is to take Keflex and will get a urine culture. She is stable for discharge back to senior care. Lab Data: Labs: Lab Results 06/02/20 06/02/20 06/02/20 Range/Units 20:10 20:10 20:10 WBC 5.4 (4.0-10.0) 10^3/ uL RBC 4.02 L (4.1-5.3) 10^6/u L Hgb 11.4 L (11.5-15.3) g/dL Hct 37.6 (37.0-47.0) % MCV 93.5 (81-99) fL MCH 28.4 (28.0-34.0) pg MCHC 30.3 (30.0-36.0) g/dL RDW 14.4 (12.1-15.1) % Plt Count 346 (130-400) 10^3/c mm MPV 9.2 (7.4-10.4) fL Neut % (Auto) 57.5 % Lymph % (Auto) 30.1 % [place] % (Auto) 8.1 % Eos % (Auto) 3.5 % Baso % (Auto) 0.6 % Neut # (Auto) 3.11 (1.8-7.7) 10^3/u L Lymph # (Auto) 1.6 (0.8-4.8) 10^3/u L [place] # (Auto) 0.4 (0.2-0.9) 10^3/u L Eos # (Auto) 0.2 (0.0-0.8) 10^3/u L Baso # (Auto) 0.0 (0.0-0.1) 10^3/u L Nucleated RBC % (a uto) 0 % Nucleated RBCs # 0.0 /100WBC Sodium 136 (136-145) mmol/L Potassium 3.7 (3.5-5.1) mmol/L Chloride 105 (98-107) mmol/L Carbon Dioxide 22 (22-29) mmol/L Anion Gap 12.7 (5-19) BUN 11 (6-20) mg/dL Creatinine 0.8 (0.5-0.9) mg/dL GFR Calculation 77.6 L (90-130) mL/min Glucose 105 (65-115) mg/dL Calculated Osmolal ity 278 L (285-295) mOsm/k g Lactate 1.0 (0.5-2.2) mmol/L Calcium 9.0 (8.5-10.5) mg/dL Total Bilirubin 0.2 (0.15-1.2) mg/dL AST 12 (0-32) U/L ALT 7 (0-33) U/L Alkaline Phosphata se 72 (35-105) IU/L Total Protein 7.0 (6.6-8.7) g/dL Albumin 3.5 (3.5-5.2) g/dL Globulin 3.5 (1.3-4.6) g/dL Lipase 19 (13-60) U/L Urine Color (Yellow) Urine Appearance (CLEAR) Urine pH (5-7) Ur Specific Gravit y (1.005-1.030) Urine Protein (Negative) Urine Glucose (UA) (Normal) Urine Ketones (Negative) Urine Blood (Negative) Urine Nitrate (Negative) Urine Bilirubin (NEGATIVE) Urine Urobilinogen (Negative) mg/dL Ur Leukocyte Maggi ase (Negative) Urine RBC (0-2) /hpf Urine WBC (0-5) /hpf Ur Squamous Epith Cells (0-5) Amorphous Sediment Urine Bacteria (NONE) 06/02/20 Range/Units 20:35 WBC (4.0-10.0) 10^3/ uL RBC (4.1-5.3) 10^6/u L Hgb (11.5-15.3) g/dL Hct (37.0-47.0) % MCV (81-99) fL MCH (28.0-34.0) pg MCHC (30.0-36.0) g/dL RDW (12.1-15.1) % Plt Count (130-400) 10^3/c mm MPV (7.4-10.4) fL Neut % (Auto) % Lymph % (Auto) % [place] % (Auto) % Eos % (Auto) % Baso % (Auto) % Neut # (Auto) (1.8-7.7) 10^3/u L Lymph # (Auto) (0.8-4.8) 10^3/u L [place] # (Auto) (0.2-0.9) 10^3/u L Eos # (Auto) (0.0-0.8) 10^3/u L Baso # (Auto) (0.0-0.1) 10^3/u L Nucleated RBC % (a uto) % Nucleated RBCs # /100WBC Sodium (136-145) mmol/L Potassium (3.5-5.1) mmol/L Chloride (98-107) mmol/L Carbon Dioxide (22-29) mmol/L Anion Gap (5-19) BUN (6-20) mg/dL Creatinine (0.5-0.9) mg/dL GFR Calculation (90-130) mL/min Glucose (65-115) mg/dL Calculated Osmolal ity (285-295) mOsm/k g Lactate (0.5-2.2) mmol/L Calcium (8.5-10.5) mg/dL Total Bilirubin (0.15-1.2) mg/dL AST (0-32) U/L ALT (0-33) U/L Alkaline Phosphata se (35-105) IU/L Total Protein (6.6-8.7) g/dL Albumin (3.5-5.2) g/dL Globulin (1.3-4.6) g/dL Lipase (13-60) U/L Urine Color Yellow (Yellow) Urine Appearance Sl cloudy A (CLEAR) Urine pH 5 (5-7) Ur Specific Gravit y 1.010 (1.005-1.030) Urine Protein Neg (Negative) Urine Glucose (UA) Norm (Normal) Urine Ketones Negative (Negative) Urine Blood 2+ H (Negative) Urine Nitrate Negative (Negative) Urine Bilirubin Neg (NEGATIVE) Urine Urobilinogen Norm (Negative) mg/dL Ur Leukocyte Maggi ase 2+ H (Negative) Urine RBC 10-15 H (0-2) /hpf Urine WBC 55-80 H (0-5) /hpf Ur Squamous Epith Cells 5-10 H (0-5) Amorphous Sediment Not Reportable Urine Bacteria 1+ H (NONE) Discharge Plan Discharge Patient Disposition: Home Clinical Impression: UTI (urinary tract infection) Qualifiers: Urinary tract infection type: acute cystitis Hematuria presence: without hematuria Qualified Code(s): N30.00 - Acute cystitis without hematuria Condition: Stable Prescriptions: New Keflex 500 mg capsule 500 mg PO Q6H 7 Days Qty: 28 RF: 0 No Action fentanyl 50 mcg/hr Patch 72 Hour 1 patch TRANSDERMAL Q72H RF: 0 ascorbic acid (vitamin C) [Vitamin C] 1,000 mg Tablet 1,000 mg PO BID RF: 0 acetaminophen [Tylenol] 325 mg Tablet 650 mg PO Q6H PRN (Reason: Pain) RF: 0 fluconazole [Diflucan] 150 mg Tablet 150 mg PO PRN RF: 0 hydrocodone-acetaminophen [Pritchett] 5-325 mg Tablet 1 tab PO Q6H PRN (Reason: Pain) RF: 0 ondansetron HCl [Zofran] 4 mg Tablet 4 mg PO Q8H PRN (Reason: Nausea) RF: 0 gentian bucky 1 % Solution 1 applic TOPICAL DAILY RF: 0 methenamine hippurate 1 gram Tablet 1 g PO BID RF: 0 magnesium hydroxide [Milk of Magnesia] 400 mg/5 mL Suspension 30 ml PO DAILY PRN (Reason: Constipation) RF: 0 bisacodyl [Dulcolax (bisacodyl)] 10 mg Suppository 10 mg VA DAILY PRN (Reason: Constipation) RF: 0 pantoprazole 40 mg Tablet,Delayed Release (Dr/Ec) 40 mg PO DAILY RF: 0 nystatin 100,000 unit/gram Cream See Rx Instructions .ROUTE .COMPLEX RF: 0 Fleet Enema 19-7 gram/118 mL Enema 118 ml VA DAILY PRN (Reason: Constipation) RF: 0 gabapentin 100 mg Capsule 100 mg PO TID RF: 0 docusate sodium 100 mg Tablet 100 mg PO BID RF: 0 lactulose 10 gram/15 mL (15 mL) Solution 15 ml PO BID RF: 0 Senna Plus 8.6-50 mg Tablet 2 tab PO BID RF: 0 Zoloft 25 mg Tablet 25 mg PO DAILY RF: 0 hydroxyzine HCl 25 mg Tablet 25 mg PO Q8H PRN (Reason: Anxiety) RF: 0 Dulcolax (bisacodyl) 5 mg Tablet,Delayed Release (Dr/Ec) 10 mg PO DAILY PRN (Reason: Constipation) RF: 0 cefdinir 300 mg Capsule 300 mg PO DAILY RF: 0 Seroquel 50 mg Tablet 50 mg PO BID RF: 0 levofloxacin 250 mg tablet 250 mg PO DAILY 10 Days Qty: 10 RF: 0 metoclopramide HCl 10 mg tablet 10 mg PO Q6H PRN (Reason: nausea and vomiting) Qty: 20 RF: 0 methocarbamol 750 mg tablet 750 mg PO Q8H Qty: 20 RF: 0 baclofen 5 mg Tablet 10 mg PO TID RF: 0 Discharge Orders: Discharge Order (Routine); Ordered 06/02/20 Ordered By: Liliana Anderson Referrals: Cade Castaneda MD [Primary Care Provider] - 1-3 days Discharge Diet: Advance as tolerated Discharge Activity: Resume usual activity Patient Instructions: Urinary Tract Infection in Women (ED) Coding Level of Care Code ED Kiln Charger for Julien Fwd Exam Comprehensive
[2020-06-02] MEDS: sodium chloride 0.9% 1,000 ML 999 ML IV (19:15)
[2020-06-02 19:20] VITALS: RESP 22
[2020-06-02] MEDS: morphine 4 mg/mL SDV 1 mL IVP (19:20)
[2020-06-02] MEDS: ondansetron 2 mg/ML SDV 2 mL 4 MG IVP (19:30)
[2020-06-02 20:16] LABS: Basophils % 0.6 %; Eosinophils # 0.2 10^3/uL (0.0-0.8); Eosinophils % 3.5 %; Hematocrit 37.6 % (37.0-47.0); Hemoglobin 11.4 g/dL (11.5-15.3); Lymphocytes # 1.6 10^3/uL (0.8-4.8); Lymphocytes % 30.1 %; Mean Corpuscular HGB Conc 30.3 g/dL (30.0-36.0); Mean Corpuscular Hemoglobin 28.4 pg (28.0-34.0); Mean Corpuscular Volume 93.5 fL (81-99); Mean Platelet Volume 9.2 fL (7.4-10.4); Monocytes # 0.4 10^3/uL (0.2-0.9); Monocytes % 8.1 %; Neutrophils # 3.11 10^3/uL (1.8-7.7); Neutrophils % 57.5 %; Nucleated Red Blood Cells % 0 %; Platelet Count 346 10^3/cmm (130-400); Red Blood Count 4.02 10^6/uL (4.1-5.3); Red Cell Distribution Width 14.4 % (12.1-15.1); White Blood Count 5.4 10^3/uL (4.0-10.0)
[2020-06-02] MEDS: acetaminophen 325 mg Tablet 650 MG PO (20:30)
[2020-06-02 20:38] LABS: Alanine Aminotransferase 7 U/L (0-33); Albumin Level 3.5 g/dL (3.5-5.2); Alkaline Phosphatase 72 IU/L (35-105); Anion Gap 12.7 (5-19); Aspartate Amino Transferase 12 U/L (0-32); Blood Urea Nitrogen 11 mg/dL (6-20); Carbon Dioxide 22 mmol/L (22-29); Chloride 105 mmol/L (98-107); Creatinine Clr Calc Pharmacy 72.6643; Globulin 3.5 g/dL (1.3-4.6); Glomerular Filtration Rate 77.6 mL/min (90-130); Glucose 105 mg/dL (65-115); Lipase 19 U/L (13-60); Osmolality Calculated 278 mOsm/kg (285-295); Potassium 3.7 mmol/L (3.5-5.1); Sodium 136 mmol/L (136-145); Total Bilirubin 0.2 mg/dL (0.15-1.2)
[2020-06-02 20:55] LABS: Glucose Urine UA Norm (Normal); Ketones Urine Negative (Negative); Protein Urine Neg (Negative); Urine Color Yellow (Yellow); pH Urine 5 (5-7)
[2020-06-02 20:56] LABS: Add Urine Microscopic? YES; Bilirubin Urine Neg (NEGATIVE); Blood Urine 2+ (Negative); Leukocyte Esterase Urine 2+ (Negative); Nitrate Urine Negative (Negative); Urobilinogen Urine Norm (Negative)
--- NOTE | 2020-06-02 20:57 | XRR_ITS ---
PROCEDURE INFORMATION: Exam: XR Chest, 1 View Exam date and time: 06/02/2020 9:18 PM Age: 45 years old Clinical indication: Fever TECHNIQUE: Imaging protocol: XR of the chest Views: 1 view. COMPARISON: CR (CHEST, ) 04/22/2020 1:39 AM FINDINGS: Tubes, catheters and devices: Surgical clips are again seen in the left upper quadrant of the abdomen Lungs: Discoid atelectasis is present in the right middle lobe. The lungs are otherwise clear. Pleural space: Unremarkable. No pleural effusion. No pneumothorax. Heart/Mediastinum: Unremarkable. No cardiomegaly. Bones/joints: Unremarkable. XR/XR chest 1V portable [id number] IMPRESSION: No acute cardiopulmonary abnormality.
[2020-06-02 21:10] LABS: Add Urine Culture? Yes; Bacteria Urine 1+; WBC Urine 55-80 /hpf (0-5)
[2020-06-02 21:25] VITALS: RESP 18
[2020-06-02] MEDS: cefTRIAXone 1,000 MG in sodium chloride 0.9% (plus) 50 ML 100 MG IV (21:25)
[2020-06-02] MEDS: HYDROmorphone 1 mg/mL INJ 1 mL IVP (21:25)
--- NOTE | 2020-06-02 23:46 | PC.NURSE ---
i agree with this assessment
[2020-06-02 23:55] VITALS: BP 93/64; PULSE 74; RESP 16; O2SAT 99
== END 2020-06-02 23:45 | disposition home or self-care (01) ==
PROVIDERS: Emergency Provider Emergency Medicine; PCP Family Medicine
DX: N30.00 Acute cystitis without hematuria (principal); G82.50 Quadriplegia, unspecified; Z87.891 Personal history of nicotine dependence
CPT/HCPCS: 12345; 71045; 80053; 81001; 83605; 83690; 85025; 87040; 87086; 96365; 96375; 99283; 99284; J0696; J1170; J2270; J2405; J7030

== ENCOUNTER 2020-06-11 10:36 | Day surgery (SDC) | payer MEDICARE, MEDICAID, SELFPAY ==
[2020-06-08 14:43] VITALS: BMI 23.8
[2020-06-11 11:20] VITALS: BP 118/78; PULSE 86; RESP 18; TEMP 36.8; O2SAT 99
[2020-06-11] MEDS: sodium chloride 0.9% 1,000 ML 30 ML IV (12:15)
--- NOTE | 2020-06-11 12:33 | ANES.PREANE2 ---
Pre-Anesthetic Assessment Pre-Anesthetic Assessment: Height/Weight: Height 1.57 m Weight 58.967 kg Temp Pulse Resp BP Pulse Ox 98.3 F 86 18 118/78 99 06/11/20 11:20 06/11/20 11:20 06/11/20 11:20 06/11/20 11:20 06/11/20 11:20 Preop Diagnosis: Recurrent UTIs with sepsis Proposed Procedure: Operation Date: 06/11/20 15:15 Proposed Procedures p Cystoscopy 55105 A41.9 N39.0(Not Applicable) - Hilton Culp MD Was Beta Rolando taken within 24 hours: N/A Last intake: Intake Last Liquid Date 06/10/20 Last Liquid Time 22:00 Last Solid Date 06/10/20 Last Solid Time 17:00 Social: Social History: No alcohol and No tobacco Exam: Pre-Anes Outpt Exam: alert, oriented x 3, clear to auscultation bilaterally and regular rate & rhythm Airway: Submandibular: WNL Cervical ROM: WNL MP: 2 Dentition: False Pulmonary: Pulmonary: None reported CV/HEM: CV/HEM: Anemia : : UTI Hepatic: Hepatic: None reported GI: GI: None reported Metabolic: Metabolic: None reported Musc/skel: Comments: Wheel chair bound. Neuropsych: Neuropsych: Deficit Comments: Quadraplegia Anesthetic Plan: ASA status: 3 Anesthesia: General Risk of > 500 ml blood loss (7ml/kg in children): No Meds/Allergies Current Medications: Current Medications Generic Name Dose Route Start Last Admin Trade Name Freq PRN Reason Stop Dose Admin Sodium Chloride 1,000 mls @ 30 ml s/hr 06/11/20 11:30 06/11/20 12:15 Sodium Chloride 0.9% IV 06/12/20 11:29 30 mls/hr .Q24H ELISEO Administration PFSH Anesthesia PFSH: Medical History Chronic indwelling Dumont catheter Neurogenic bladder Chronic indwelling catheter at this point Post-traumatic quadriplegia Recurrent sepsis due to urinary tract infection Surgical History H/O bladder repair surgery H/O cystoscopy H/O partial cystectomy H/O Spinal surgery History of hysterectomy History of partial gastrectomy Family History Other CAD (coronary artery disease) Diabetes Hypertension Social History Smoking and tobacco status: former smoker Alcohol intake: never Household members: spouse Housing: House Marital status: Current occupational status: disabled Data Anesthesia Cardiac Studies: No Data to Display
--- NOTE | 2020-06-11 16:57 | P.HPUD_ITS ---
Surgery/Procedure H&P Update DATE OF PROCEDURE: June 11, 2020 DATE H&P PERFORMED: 06/05/20 H&P UPDATE INFORMATION: I have reviewed H&P completed within last 30 days, I have examined patient prior to procedure, No changes to prior documentation and [place] [facility] [place] indicated PREOP DIAGNOSIS: Recurrent UTIs with sepsis PLANNED PROCEDURE: Operation Date: 06/11/20 15:15 Proposed Procedures p Cystoscopy 35496 A41.9 N39.0(Not Applicable) - Hilton Culp MD
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
[2020-06-11 17:49] VITALS: BP 120/82; PULSE 90; RESP 16; TEMP 36.6; O2SAT 97
--- NOTE | 2020-06-11 17:50 | PM.PACU ---
PACU note PACU note: VSS good pain control. Post-Anesthesia Exam: somnolent, arousable Disposition: discharged
[2020-06-11 17:55] VITALS: BP 132/92; PULSE 109; RESP 17; O2SAT 95
[2020-06-11 18:00] VITALS: BP 125/86; BP 131/90; PULSE 105; PULSE 93; RESP 18; TEMP 36.9; O2SAT 94; O2SAT 95
[2020-06-11 18:30] VITALS: BP 119/80; PULSE 93; RESP 18; O2SAT 95
--- NOTE | 2020-06-11 19:14 | SUR.PHASEII ---
\Patient ready and awaiting transport at 1830
== END 2020-06-11 19:12 | disposition home or self-care (01) ==
PROVIDERS: PCP Family Medicine; Visit Provider Urology
PROC: 0TJB8ZZ Inspection of Bladder, Via Natural or Artificial Opening Endoscopic (ICD-10-PCS; CPT 52000; principal; 2020-06-11 15:15)
DX: N39.0 Urinary tract infection, site not specified (principal); A41.9 Sepsis, unspecified organism; G82.50 Quadriplegia, unspecified; Z87.891 Personal history of nicotine dependence
CPT/HCPCS: 52000; 12345; J2405; J2704; J3010; J7030

== ENCOUNTER 2020-08-08 11:10 | Observation (INO) | payer MEDICARE, MEDICAID, SELFPAY ==
[2020-08-08] VITALS (15 sets, daily range): BP systolic 92–112; BP diastolic 41–75; PULSE 63–88; RESP 16–20; TEMP 36.6–37.7; O2SAT 93–97; BMI 20.5
--- NOTE | 2020-08-08 11:38 | CT_ITS ---
WS: [id number] CT CHEST, ABDOMEN AND PELVIS WITH CONTRAST. HISTORY: COVID, abd pain, h/o perforated bowel TECHNIQUE: Contiguous 5 mm axial imaging performed through the chest, abdomen and pelvis with IV cont rast, oral contrast has not been provided. Coronal and sagittal reformats chest. Coronal and sagittal reformats through the abdomen and pelvis. All CT scans at [facility] use at least one of these dose optimization techniques: automated exposure control; mA and/or kV adjustment per patient size (includes targeted exams where dose is matched to clinical indication); or iterative reconstruct ion. CONTRAST: Omnipaque 300; 95 mL IV. DLP: 1384.67 mGy.cm COMPARISON: 05/28/[address]: Linear areas of subsegmental atelectasis in the RIGHT lower lobe and also the posterior med ial LEFT lower lung. No nodule or pneumonia. Normal size aorta. Aberrant RIGHT subclavian artery. No adenopathy. No dissection. Normal pulmonary artery. Heart size is normal. No pericardial or pleural e ffusion. Abdomen CT: Liver and spleen are normal size. Gallbladder is normal. Normal RIGHT adrenal gland. LEFT adrenal mass measures 2.0 x 1.0 cm and is stable since 09/26/2018. Normal pancreas. No adenopathy or free fluid. Surgical sutures adjacent to the stomach is probably from a prior bypass or gastric sleev e procedure. Normal aorta with mild atherosclerosis. Postsurgical changes along the intra-abdominal w all with no complication. Renal pelvis are probably prominent consistent with an extrarenal pelvis. There is no obstruction. Pelvic CT: Dumont catheter in the urinary bladder. There is fluid and air in the urinary bladder with mild bladder wall thickening. Slightly limited cystic mass in the RIGHT adnexa has been previously de scribed. Mass measures 5.8 x 2.1 cm is probably related to the RIGHT ovary. The adjacent appendix is normal. No destructive bone lesions. Mild thoracolumbar scoliosis. CT/CT chest abd pel w con* IMPRESSION: 1. Subsegmental bilateral lower lobe areas of atelectasis. No pneumonia. 2. No GI tract obstruction. 3. Dumont catheter present in a nondistended urinary bladder. 4. Stable LEFT adrenal adenoma. 5. No ascites or free air.
--- NOTE | 2020-08-08 12:16 | PC.NURSE ---
Ursula,since 2017. Has angelina buenrostro
[2020-08-08] MEDS: morphine 4 mg/mL SDV 1 mL IVP (12:18)
[2020-08-08] MEDS: ondansetron 2 mg/ML SDV 2 mL 4 MG IVP ×3 (12:18→18:35)
[2020-08-08] MEDS: sodium chloride 0.9% 1,000 ML 999 ML IV (12:18)
[2020-08-08 12:24] LABS: Hematocrit 39.3 % (37.0-47.0); Hemoglobin 12.2 g/dL (11.5-15.3); Lymphocytes # 0.7 10^3/uL (0.8-4.8); Lymphocytes % 18.2 %; Mean Corpuscular Hemoglobin 28.6 pg (28.0-34.0); Mean Corpuscular Volume 92.3 fL (81-99); Mean Platelet Volume 9.7 fL (7.4-10.4); Monocytes # 0.4 10^3/uL (0.2-0.9); Monocytes % 8.8 %; Neutrophils # 2.96 10^3/uL (1.8-7.7); Neutrophils % 72.8 %; Nucleated Red Blood Cells % 0 %; Platelet Count 302 10^3/cmm (130-400); Red Blood Count 4.26 10^6/uL (4.1-5.3); Red Cell Distribution Width 12.8 % (12.1-15.1); White Blood Count 4.1 10^3/uL (4.0-10.0)
[2020-08-08 12:34] LABS: Glucose Urine UA Norm (Normal); Ketones Urine 2+ (Negative); Protein Urine Neg (Negative); Specific Gravity, Urine 1.015 (1.005-1.030); Urine Appearance Cloudy (CLEAR); Urine Color Yellow (Yellow); pH Urine 6 (5-7)
[2020-08-08 12:35] LABS: Add Urine Microscopic? YES; Bilirubin Urine Neg (Negative); Blood Urine 3+ (Negative); Leukocyte Esterase Urine 2+ (Negative); Nitrate Urine Positive (Negative); Urobilinogen Urine Neg (Negative)
[2020-08-08 12:38] LABS: Add Urine Culture? Yes; Bacteria Urine 4+ /hpf; RBC Urine 25-40 /hpf (0-2); WBC Urine >100 /hpf (0-5)
[2020-08-08 12:41] LABS: SARS Covid-2 Antigen Positive (Negative)
[2020-08-08 12:43] LABS: Lactic Sepsis W/Reflex 1.4 mmol/L (0.5-2.2)
[2020-08-08 12:44] LABS: INR 0.97 (0.8-1.2)
[2020-08-08 12:45] LABS: Fibrinogen 560 mg/dL (174-498)
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
[2020-08-08 12:47] LABS: D Dimer 0.75 ug/mIFEU (0-0.59)
[2020-08-08 12:53] LABS: Alanine Aminotransferase 15 U/L (0-33); Albumin Level 4.1 g/dL (3.5-5.2); Alkaline Phosphatase 101 IU/L (35-105); Blood Urea Nitrogen 11 mg/dL (6-20); Calcium 9.2 mg/dL (8.5-10.5); Carbon Dioxide 18 mmol/L (22-29); Chloride 104 mmol/L (98-107); Globulin 3.6 g/dL (1.3-4.6); Glomerular Filtration Rate 67.7 mL/min (90-130); Glucose 107 mg/dL (65-115); Lipase 42 U/L (13-60); NT Pro B Type Natriuretic Pept 309 pg/mL (0-125); Osmolality Calculated 290 mOsm/kg (285-295); Sodium 140 mmol/L (136-145); Total Bilirubin 0.2 mg/dL (0.15-1.2); Total Protein 7.7 g/dL (6.6-8.7)
[2020-08-08 13:22] LABS: Procalcitonin 0.05 ng/mL (0-0.5)
--- NOTE | 2020-08-08 13:30 | PC.NURSE ---
Cleaned and repositioned pt. Noted Ulcers to buttocks area. Appears to be undermining , approx 1 inch. Does not appear to be tunneling. Pressure ulcer on heal of left foot. Tender area on right heal
[2020-08-08 13:47] LABS: Aspartate Amino Transferase 30 U/L (0-32); C Reactive Protein 13.9 mg/L (0.0-4.9); Lactate Dehydrogenase 270 U/L (135-214)
--- NOTE | 2020-08-08 14:16 | PC.NURSE ---
Pain continues in RLQ
[2020-08-08] MEDS: iohexol 300 mg/mL 100 mL Btl IV (15:07)
[2020-08-08] MEDS: HYDROmorphone 1 mg/mL INJ 1 mL 0.5 MG IVP ×2 (15:40→18:34)
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
[2020-08-08] MEDS: dextrose 5%-sod chloride 0.45% 1,000 ML 75 ML IV (18:35)
[2020-08-08] MEDS: fentaNYL 50 mcg Patch 1 PATCH TRANSDERMA (23:19)
[2020-08-08] MEDS: gabapentin 100 mg Capsule PO (23:20)
--- NOTE | 2020-08-08 23:54 | PC.NURSE ---
Fentanyl patch removed from left lower abd. New patch placed on left chest.
[2020-08-09] VITALS (14 sets, daily range): BP systolic 92–120; BP diastolic 56–78; PULSE 57–105; RESP 12–20; TEMP 36.4–37; O2SAT 96–98
[2020-08-09] MEDS: ondansetron 2 mg/ML SDV 2 mL 4 MG IVP ×3 (01:17→22:43)
[2020-08-09] MEDS: morphine 4 mg/mL SDV 1 mL 2 MG IVP ×4 (03:06→22:43)
[2020-08-09 06:20] LABS: Alanine Aminotransferase 13 U/L (0-33); Albumin Level 3.4 g/dL (3.5-5.2); Alkaline Phosphatase 83 IU/L (35-105); Blood Urea Nitrogen 8 mg/dL (6-20); Calcium 8.5 mg/dL (8.5-10.5); Carbon Dioxide 19 mmol/L (22-29); Chloride 108 mmol/L (98-107); Globulin 3.7 g/dL (1.3-4.6); Glomerular Filtration Rate 90.5 mL/min (90-130); Glucose 100 mg/dL (65-115); Osmolality Calculated 288 mOsm/kg (285-295); Sodium 140 mmol/L (136-145); Total Bilirubin 0.2 mg/dL (0.15-1.2); Total Protein 7.1 g/dL (6.6-8.7)
[2020-08-09 06:24] LABS: Anion Gap 16.5 (5-19); Aspartate Amino Transferase 28 U/L (0-32); Potassium 3.5 mmol/L (3.5-5.1)
[2020-08-09] MEDS: dextrose 5%-sod chloride 0.45% 1,000 ML 75 ML IV ×2 (06:54→20:15)
[2020-08-09] MEDS: gabapentin 100 mg Capsule PO ×2 (09:15→15:49)
[2020-08-09] MEDS: docusate sodium 100 mg Capsule PO (09:15)
[2020-08-09] MEDS: cefdinir 300 MG CAPSULE PO (09:15)
[2020-08-09] MEDS: ascorbic acid 500 mg Tablet 1000 MG PO (09:15)
[2020-08-09] MEDS: sertraline 50 mg Tablet 25 MG PO (09:15)
[2020-08-09] MEDS: pantoprazole DR 40 mg Tablet PO (09:15)
[2020-08-09] MEDS: quetiapine 25 mg Tablet 50 MG PO (09:15)
--- NOTE | 2020-08-09 13:44 | PM.PN ---
Subjective Subjective: Interval history: patient has not had any witnessed episodes of vomiting but continues to complain of intense nausea and poor po intake. Loss of smell and taste+. Anion gap improved today with hydration. Medications: Reviewed: Yes Vitals/I&O/Wt Last Vital Signs Temp 97.6 F 08/09/20 11:54 Pulse 65 08/09/20 11:54 Resp 18 08/09/20 11:54 BP 96/62 08/09/20 11:54 Pulse Ox 97 08/09/20 11:54 08/08/20 08/09/20 08/09/20 22:59 06:59 14:59 Intake Total 923.75 / 923.75 Output Total 200 / 200 Balance 723.75 / 723.75 Weight last 48 hrs Weight 54.431 kg Physical Exam Narrative: EXAM NARRATIVE: GEN: Awake, alert and oriented, no acute distress CVS: S1S2 N RS: CTA B/L Abd: Soft, nt/nd , bs+ STRATEGIC INSIGHTS LEAD: quadriparesis at baseline Data : 08/08/20 12:01 08/09/20 05:29 Micro: Microbiology 08/08/20 12:01 Urine Culture - Preliminary Urine,Clean Catch Gram Negative Rods 08/08/20 12:00 Blood Culture - Preliminary Blood SPECIMEN COLLECTED 08/08/20 12:01 Blood Culture - Preliminary Blood SPECIMEN COLLECTED A&P Assessment and plan (1) Intractable nausea and vomiting: Status: Acute (2) Dehydration: Status: Acute (3) Chronic indwelling Dumont catheter: Status: Acute (4) Neurogenic bladder: Status: Acute (5) Post-traumatic quadriplegia: Status: Acute (6) COVID-19: Status: Acute Additional A&P Information # intractable nausea, vomiting better, persisting nausea, and abdominal pain CT abdomen is reassuringly negative for any acute intra-abdominal process. Lipase is normal at 42. Chest CT abdomen does not show any signs of acute pancreatitis or appendicitis. No hydronephrosis or urinary obstruction noted either. UA is showing positive nitrates and more numerous WBCs, however this is not unexpected from a chronic indwelling Dumont. Patient recently had a cystoscopy with Dr. 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 In the absence of any signs of active urinary tract infection, I would hold off on treating this with directed antibiotics at this present time. Past urine cultures have shown the presence of Pseudomonas and ESBL organisms with MDR susceptibility patterns. She appears to be on cefdinir, though I am unable to a certain indication for this. We will continue on this and methenamine for now. Patient's labs are improving, she is much better hydrated. Anion gap is closed. She remains extremely anxious though abotu her nausea and loss of appetite. She is concerned that is she returns to [place] today, she will end up back at the hospital I have counselled her that these are syptoms likely from her COVID illness and hopefully she should feel better in the next 10-14 days. For now we will continue with symptomatic management and encourage her to try po intake. As needed Zofran and metoclopramide alternating for control of nausea. Laxatives as needed as needed for now. Low-grade fever 99.9 may be related to COVID-19. CTA chest does not show any evidence of lung infiltrates or development of ARDS. Patient is currently on room air and saturating well. Continue home medications of Seroquel and sertraline. Full code Attestations Medical Necessity Statement*: ongoing nausea and abdominal pain, trial of po intake to assess for tolerability Coding Level of Care Code Acute Band Saw Operator Cake Cutting for g Fwd Diagnoses Intractable nausea and vomiting R11.2 Dehydration E86.0 Chronic indwelling Dumont catheter Z96.0 Neurogenic bladder N31.9 Post-traumatic quadriplegia G82.50 COVID-19 U07.1
[2020-08-09] MEDS: metoclopramide 5 mg/mL SDV 2 mL IVP (15:49)
[2020-08-10] VITALS (7 sets, daily range): BP systolic 91–119; BP diastolic 58–78; PULSE 56–81; RESP 12–18; TEMP 36.5–36.9; O2SAT 96–98
[2020-08-10 05:19] LABS: Alanine Aminotransferase 15 U/L (0-33); Albumin Level 3.4 g/dL (3.5-5.2); Alkaline Phosphatase 76 IU/L (35-105); Anion Gap 12.7 (5-19); Aspartate Amino Transferase 31 U/L (0-32); Blood Urea Nitrogen 4 mg/dL (6-20); Calcium 8.4 mg/dL (8.5-10.5); Carbon Dioxide 22 mmol/L (22-29); Chloride 107 mmol/L (98-107); Creatinine Clr Calc Pharmacy 122.4538; Globulin 3.5 g/dL (1.3-4.6); Glomerular Filtration Rate 133.4 mL/min (90-130); Glucose 104 mg/dL (65-115); Osmolality Calculated 285 mOsm/kg (285-295); Sodium 139 mmol/L (136-145); Total Bilirubin 0.2 mg/dL (0.15-1.2); Total Protein 6.9 g/dL (6.6-8.7)
[2020-08-10 05:49] LABS: Potassium 2.7 mmol/L (3.5-5.1)
[2020-08-10] MEDS: metoclopramide 5 mg/mL SDV 2 mL IVP ×2 (06:28→16:38)
[2020-08-10] MEDS: potassium chloride premix 100 ML 25 MEQ IV ×2 (06:35→09:11)
[2020-08-10] MEDS: ascorbic acid 500 mg Tablet 1000 MG PO (09:06)
[2020-08-10] MEDS: pantoprazole DR 40 mg Tablet PO (09:06)
[2020-08-10] MEDS: gabapentin 100 mg Capsule PO (09:06)
[2020-08-10] MEDS: docusate sodium 100 mg Capsule PO (09:06)
[2020-08-10] MEDS: cefdinir 300 MG CAPSULE PO (09:06)
[2020-08-10] MEDS: sertraline 50 mg Tablet 25 MG PO (09:07)
[2020-08-10] MEDS: quetiapine 25 mg Tablet 50 MG PO (09:07)
[2020-08-10] MEDS: ondansetron 2 mg/ML SDV 2 mL 4 MG IVP (09:10)
[2020-08-10] MEDS: morphine 4 mg/mL SDV 1 mL 2 MG IVP ×2 (09:10→16:39)
[2020-08-10] MEDS: tizanidine 4 mg Tablet 2 MG PO (09:11)
[2020-08-10] MEDS: dextrose 5%-sod chloride 0.45% 1,000 ML 75 ML IV (10:39)
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
--- NOTE | 2020-08-13 15:15 | PC.SOCIAL ---
Discussed culture results with Dr Yen via email. Per her DC summary and email response this organism ECOLI ESBL is colonization and no further treatment needed. Called [facility] spoke with patient care nurse Brooklynn and discussed results along with Dr Yen response. Sent culture results to number provided [phone] with confirmation that fax was sent successfully. Brooklynn will make sure attending at SNF reviews.
== END 2020-08-10 16:58 | disposition skilled nursing facility (03) ==
LOC: ER 18:32 → MEDSURG 18:35
PROVIDERS: Emergency Medicine; Admitting Provider Student in an Organized Health Care Education/Training Program; PCP Family Medicine; Visit Provider Student in an Organized Health Care Education/Training Program
DX: A08.4 Viral intestinal infection, unspecified (principal); R11.2 Nausea with vomiting, unspecified; E86.0 Dehydration; Z96.0 Presence of urogenital implants; N31.9 Neuromuscular dysfunction of bladder, unspecified; G82.50 Quadriplegia, unspecified; U07.1 COVID-19; Z82.49 Family history of ischemic heart disease and other diseases of the circulatory system; Z87.891 Personal history of nicotine dependence
CPT/HCPCS: 12345; 36415; 71260; 74177; 80053; 81001; 83605; 83615; 83690; 83880; 84145; 85025; 85378; 85384; 85610; 86140; 87040; 87077; 87086; 87186; 87426; 94762; 96361; 96365; 96367; 96375; 99284; 99285; G0378; J0743; J1170; J2270; J2405; J2765; J3480; J7030; J7799; Q9967

== ENCOUNTER 2020-11-18 15:30 | Inpatient (IN) | payer MEDICARE, MEDICAID, SELFPAY ==
[2020-11-18] VITALS (9 sets, daily range): BP systolic 103–122; BP diastolic 73–82; PULSE 78–89; RESP 16–18; TEMP 36.6–36.7; O2SAT 94–100; BMI 19.7
--- NOTE | 2020-11-18 16:15 | CTR_ITS ---
PROCEDURE INFORMATION: Exam: CT Abdomen And Pelvis With Contrast Exam date and time: 11/18/2020 4:28 PM Age: 45 years old Clinical indication: Abdominal pain; Generalized; Prior surgery; Surgery date: 6+ months; Surgery type: Hyst, bladder, spine; Patient HX: Nh PT quad C/O abd pain w n/v/d TECHNIQUE: Imaging protocol: Computed tomography of the abdomen and pelvis with intravenous contrast. Radiation optimization: All CT scans at this facility use at least one of these dose optimization techniques: automated exposure control; mA and/or kV adjustment per patient size (includes targeted exams where dose is matched to clinical indication); or iterative reconstruction. Contrast material: OMNI 300; Contrast volume: 75 ml; Contrast route: INTRAVENOUS (IV); COMPARISON: CT chest abd pel w con* 08/08/2020 2:55 PM RADIATION DOSE METRICS: Total DLP (mGy-cm): 705.76 FINDINGS: Lungs: Streaky densities at the lung bases are most consistent with scarring and/or atelectasis. Liver: Normal. No mass. Gallbladder and bile ducts: Normal. No calcified stones. No ductal dilation. Pancreas: Normal. No ductal dilation. Spleen: Normal. No splenomegaly. Adrenal glands: Normal. No mass. Kidneys and ureters: The urothelium of the renal pelves and proximal ureters enhances somewhat prominently. Stomach and bowel: There are air-fluid levels in the distal colon suggesting mild nonspecific colitis versus other diarrheal illness. There is mucosal thickening of the rectosigmoid colon with mild adjacent mesenteric inflammatory stranding. Appendix: No evidence of appendicitis. Intraperitoneal space: Unremarkable. No free air. No significant fluid collection. Vasculature: Unremarkable. No abdominal aortic aneurysm. Lymph nodes: Unremarkable. No enlarged lymph nodes. Urinary bladder: There is a Dumont catheter and a small focus of air in the bladder. Bladder wall is thickened and irregular in contour. There is mild hazy stranding in the pericystic fat. Reproductive: The uterus is not visualized, consistent with hysterectomy. Bones/joints: Mild lateral curvature of the thoracolumbar spine with the convexity to the right. Soft tissues: Unremarkable. CT/CT abdomen pelvis w con* [id number] IMPRESSION: 1. There is mucosal thickening of the rectosigmoid colon and air-fluid levels in the distal colon. Findings are consistent with a nonspecific colitis. 2. The bladder wall is thickened. This is nonspecific and may represent bladder outlet obstruction, inflammation or infection. Neoplastic process is included in the differential. 3. The urothelium of the renal pelves and proximal ureters enhances somewhat prominently raising concern for ascending urinary tract infections. Please correlate clinically. Radiation Dose CTDIVOL = (mGy): DLP = 705.76 (mGy-cm)
[2020-11-18] MEDS: ondansetron 2 mg/ML SDV 2 mL 4 MG IVP (16:53)
[2020-11-18 17:00] LABS: Basophils % 0.5 %; Eosinophils # 0.1 10^3/uL (0.0-0.8); Eosinophils % 0.9 %; Hematocrit 43.8 % (37.0-47.0); Hemoglobin 13.3 g/dL (11.5-15.3); Lymphocytes # 1.2 10^3/uL (0.8-4.8); Lymphocytes % 13.8 %; Mean Corpuscular HGB Conc 30.4 g/dL (30.0-36.0); Mean Corpuscular Hemoglobin 28.4 pg (28.0-34.0); Mean Corpuscular Volume 93.4 fL (81-99); Mean Platelet Volume 9.5 fL (7.4-10.4); Monocytes # 0.5 10^3/uL (0.2-0.9); Monocytes % 5.8 %; Neutrophils % 78.6 %; Nucleated Red Blood Cells % 0 %; Platelet Count 325 10^3/cmm (130-400); Red Blood Count 4.69 10^6/uL (4.1-5.3); Red Cell Distribution Width 14.2 % (12.1-15.1); White Blood Count 8.5 10^3/uL (4.0-10.0)
[2020-11-18] MEDS: morphine 4 mg/mL SDV 1 mL IVP ×2 (17:00→20:09)
--- NOTE | 2020-11-18 17:08 | W.ED.ABDPA2 ---
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 She describes it as feeling like someone punching her in the belly. She also has some nausea and vomiting. She denies any fever. She says she has a history of UTIs in the past. She is here to be evaluated for the pain. MD elicited complaint: abdominal pain Pertinent past history: none Onset (ago): day(s) (2) Pain Consistency: constant Location: Diffuse Severity: severe Quality: other (She said it feels like someone is punching her) Radiation: none Migration to: no migration Exacerbating factors: nothing Relieving factors: nothing Associated Symptoms: Reports vomiting; Denies anorexia, belching, bloating, change in bowel habits, change in stool character, chills, coffee ground emesis, constipation, GI cramping, diarrhea, dyspepsia, dysuria, excessive flatus, fever(s), heartburn, hematochezia, hematuria, hematemesis, fecal incontinence, loose stools, melena, nausea, poor appetite and syncope Review of Systems General: Reports: 10 or more systems reviewed and unremarkable except in HPI and below Const: Denies: fever(s) or chills Eyes: Denies: change in vision or blurry vision ENMT: Denies: throat pain, enlarged tonsils, odynophagia, hoarseness, mouth pain or swelling of lips/tongue Card: Denies: syncope Resp: Denies: dyspnea, productive cough or non-productive cough GI: Reports: vomiting; Denies: nausea, hematemesis, coffee ground emesis, heartburn, diarrhea, constipation, bloating, GI cramping, belching, excessive flatus, fecal incontinence, change in bowel habits, change in stool character, hematochezia or melena : Denies: dysuria or hematuria Musc: Denies: neck pain, back pain or extremity swelling Skin/Breast: Denies: rash, pruritus or erythema Neuro: Denies: headache(s), numbness in extremities or weakness in extremities Endo: Denies: polyuria, polydipsia or tired all the time PFSH ED PFSH: Medical History (Updated 11/18/20 @ 22:14 by Jose Manuel Desir MD, [facility]) Chronic indwelling Dumont catheter Neurogenic bladder Post-traumatic quadriplegia Recurrent sepsis due to urinary tract infection Surgical History H/O bladder repair surgery H/O cystoscopy H/O partial cystectomy H/O Spinal surgery History of hysterectomy History of partial gastrectomy Family History Other CAD (coronary artery disease) Diabetes Hypertension Social History Smoking and tobacco status: former smoker Alcohol intake: never Household members: spouse Housing: House Marital status: Current occupational status: disabled Physical Exam Const: COMMON NORMALS: no acute distress, average body habitus, patient oriented x3, no limitations, healthy appearing, alert and well nourished Neck/C-Spine: COMMON NORMALS: no meningeal signs and no JVD Resp: COMMON NORMALS: normal respiratory effort, No retractions, No use of accessory muscles, clear to auscultation bilaterally and percussion normal AUSCULTATION: clear to auscultation bilaterally PERCUSSION: percussion normal Cardio: COMMON NORMALS: no JVD, regular rate, regular rhythm, S1 normal heart sound present, S2 normal heart sound present, No gallops present (Cardio), No clicks present (Cardio), No murmurs present (Cardio), No rub (Cardio) and Peripheral pulses 2+ throughout RATE: regular rate RHYTHM: regular rhythm HEART SOUNDS: S1 normal heart sound present and S2 normal heart sound present PERIPHERAL PULSES: Peripheral pulses 2+ throughout GI: COMMON NORMALS: Normal to inspection, nondistended, normoactive bowel sounds present, Soft to palpation, No hepatosplenomegaly present, no masses and no bruits PALPATION: Yes Soft to palpation, Yes Tenderness to palpation present (GI) (Generalized), Yes Guarding due to palpation present (GI) and Yes No hepatosplenomegaly present Neuro: COMMON NORMALS: patient oriented x3 SENSORIUM/ORIENTATION: Yes alert MENINGEAL SIGNS: Yes no meningeal signs Skin: COMMON NORMALS: no rashes or lesions noted, no wounds, turgor normal, no jaundice, no petechiae and no mottling GENERAL SKIN EXAM: no rashes or lesions noted and turgor normal Course Consultations: Consultation #1: Discussed the patient with Dr. Farmer, hospitalist and he kindly accepted patient to his service Time: 19:50 Vital Signs: Vital signs: Vital Signs Temperature 98.1 F 11/18/20 21:14 Pulse Rate 89 11/18/20 21:14 Respiratory Rate 16 11/18/20 22:00 Blood Pressure 121/75 11/18/20 21:14 Pulse Oximetry 97 11/18/20 22:00 MDM - Abdominal Pain MDM Narrative: Medical decision making narrative: 45-year-old female patient who presents with abdominal pain. Evaluation in the emergency department is consistent with colitis. She also has a UTI. Her pain is poorly controlled and she has severe nausea that is not responsive to multiple medications. Because of the continuous pain and severe nausea she is admitted for IV antibiotics and further management. Medical Records: Attestation: I reviewed the patient's medical records. Lab Data: Attestation: I reviewed the patient's lab results. Labs: Lab Results 11/18/20 11/18/20 11/18/20 Range/Units 16:50 16:50 17:43 WBC 8.5 (4.0-10.0) 10^3/ uL RBC 4.69 (4.1-5.3) 10^6/u L Hgb 13.3 (11.5-15.3) g/dL Hct 43.8 (37.0-47.0) % MCV 93.4 (81-99) fL MCH 28.4 (28.0-34.0) pg MCHC 30.4 (30.0-36.0) g/dL RDW 14.2 (12.1-15.1) % Plt Count 325 (130-400) 10^3/c mm MPV 9.5 (7.4-10.4) fL Neut % (Auto) 78.6 % Lymph % (Auto) 13.8 % Clark % (Auto) 5.8 % Eos % (Auto) 0.9 % Baso % (Auto) 0.5 % Neut # (Auto) 6.70 (1.8-7.7) 10^3/u L Lymph # (Auto) 1.2 (0.8-4.8) 10^3/u L Clark # (Auto) 0.5 (0.2-0.9) 10^3/u L Eos # (Auto) 0.1 (0.0-0.8) 10^3/u L Baso # (Auto) 0.0 (0.0-0.1) 10^3/u L Nucleated RBC % (a uto) 0 % Nucleated RBCs # 0.0 /100WBC Sodium 138 (136-145) mmol/L Potassium 4.1 (3.5-5.1) mmol/L Chloride 100 (98-107) mmol/L Carbon Dioxide 23 (22-29) mmol/L Anion Gap 19.1 H (5-19) BUN 14 (6-20) mg/dL Creatinine 0.9 (0.5-0.9) mg/dL GFR Calculation 67.7 L (90-130) mL/min Glucose 118 H (65-115) mg/dL Calculated Osmolal ity 288 (285-295) mOsm/k g Lactate 1.7 (0.5-2.2) mmol/L Calcium 9.7 (8.5-10.5) mg/dL Total Bilirubin 0.2 (0.15-1.2) mg/dL AST 26 (0-32) U/L ALT 32 (0-33) U/L Alkaline Phosphata se 132 H (35-105) IU/L Creatine Kinase 24 L (26-192) U/L C-Reactive Protein 6.9 H (0.0-4.9) mg/L Total Protein 11.0 H (6.6-8.7) g/dL Albumin 4.4 (3.5-5.2) g/dL Globulin 6.6 H (1.3-4.6) g/dL Lipase 17 (13-60) U/L Urine Color (Yellow) Urine Appearance (CLEAR) Urine pH (5-7) Ur Specific Gravit y (1.005-1.030) Urine Protein (Negative) Urine Glucose (UA) (Normal) Urine Ketones (Negative) Urine Blood (Negative) Urine Nitrate (Negative) Urine Bilirubin (Negative) Urine Urobilinogen (Negative) mg/dL Ur Leukocyte Maggi ase (Negative) Urine RBC (0-2) /hpf Urine WBC (0-5) /hpf Ur Squamous Epith Cells (0-5) /hpf Amorphous Sediment Urine Bacteria (NONE) /hpf 11/18/20 Range/Units 17:45 WBC (4.0-10.0) 10^3/ uL RBC (4.1-5.3) 10^6/u L Hgb (11.5-15.3) g/dL Hct (37.0-47.0) % MCV (81-99) fL MCH (28.0-34.0) pg MCHC (30.0-36.0) g/dL RDW (12.1-15.1) % Plt Count (130-400) 10^3/c mm MPV (7.4-10.4) fL Neut % (Auto) % Lymph % (Auto) % Clark % (Auto) % Eos % (Auto) % Baso % (Auto) % Neut # (Auto) (1.8-7.7) 10^3/u L Lymph # (Auto) (0.8-4.8) 10^3/u L Clark # (Auto) (0.2-0.9) 10^3/u L Eos # (Auto) (0.0-0.8) 10^3/u L Baso # (Auto) (0.0-0.1) 10^3/u L Nucleated RBC % (a uto) % Nucleated RBCs # /100WBC Sodium (136-145) mmol/L Potassium (3.5-5.1) mmol/L Chloride (98-107) mmol/L Carbon Dioxide (22-29) mmol/L Anion Gap (5-19) BUN (6-20) mg/dL Creatinine (0.5-0.9) mg/dL GFR Calculation (90-130) mL/min Glucose (65-115) mg/dL Calculated Osmolal ity (285-295) mOsm/k g Lactate (0.5-2.2) mmol/L Calcium (8.5-10.5) mg/dL Total Bilirubin (0.15-1.2) mg/dL AST (0-32) U/L ALT (0-33) U/L Alkaline Phosphata se (35-105) IU/L Creatine Kinase (26-192) U/L C-Reactive Protein (0.0-4.9) mg/L Total Protein (6.6-8.7) g/dL Albumin (3.5-5.2) g/dL Globulin (1.3-4.6) g/dL Lipase (13-60) U/L Urine Color Yellow (Yellow) Urine Appearance Hazy A (CLEAR) Urine pH 5 (5-7) Ur Specific Gravit y 1.020 (1.005-1.030) Urine Protein 1+ H (Negative) Urine Glucose (UA) Norm (Normal) Urine Ketones 1+ H (Negative) Urine Blood 3+ H (Negative) Urine Nitrate Negative (Negative) Urine Bilirubin Neg (Negative) Urine Urobilinogen Norm (Negative) mg/dL Ur Leukocyte Maggi ase 2+ H (Negative) Urine RBC 10-15 H (0-2) /hpf Urine WBC Too numerous to c nt H (0-5) /hpf Ur Squamous Epith Cells 0-4 H (0-5) /hpf Amorphous Sediment Not Reportable Urine Bacteria 2+ H (NONE) /hpf Imaging Data ^: CT Abd/Pel: Attestation: I personally reviewed and interpreted this imaging study as follows: Radiologist's impression: [address] [address] [address] Scan Report Signed Patient: Danielle Morales #: [id number] : 1975Acct#:[id number] Age/Sex: 45 / FADM Date: 11/18/20 Loc: [facility]/Bed: Attending Dr: Ordering Provider/Ordering MD: Jose Manuel Desir MD, [facility] Date of Service: 11/18/20 Procedure(s): CT abdomen pelvis w con* [id number] Accession Number(s): [id number] Report Number: [id number] PROCEDURE INFORMATION: Exam: CT Abdomen And Pelvis With Contrast Exam date and time: 11/18/2020 4:28 PM Age: 45 years old Clinical indication: Abdominal pain; Generalized; Prior surgery; Surgery date: 6+ months; Surgery type: Hyst, bladder, spine; Patient HX: Nh PT quad C/O abd pain w n/v/d TECHNIQUE: Imaging protocol: Computed tomography of the abdomen and pelvis with intravenous contrast. Radiation optimization: All CT scans at this facility use at least one of these dose optimization techniques: automated exposure control; mA and/or kV adjustment per patient size (includes targeted exams where dose is matched to clinical indication); or iterative reconstruction. Contrast material: OMNI 300; Contrast volume: 75 ml; Contrast route: INTRAVENOUS (IV); COMPARISON: CT chest abd pel w con* 08/08/2020 2:55 PM RADIATION DOSE METRICS: Total DLP (mGy-cm): 705.76 FINDINGS: Lungs: Streaky densities at the lung bases are most consistent with scarring and/or atelectasis. Liver: Normal. No mass. Gallbladder and bile ducts: Normal. No calcified stones. No ductal dilation. Pancreas: Normal. No ductal dilation. Spleen: Normal. No splenomegaly. Adrenal glands: Normal. No mass. Kidneys and ureters: The urothelium of the renal pelves and proximal ureters enhances somewhat prominently. Stomach and bowel: There are air-fluid levels in the distal colon suggesting mild nonspecific colitis versus other diarrheal illness. There is mucosal thickening of the rectosigmoid colon with mild adjacent mesenteric inflammatory stranding. Appendix: No evidence of appendicitis. Intraperitoneal space: Unremarkable. No free air. No significant fluid collection. Vasculature: Unremarkable. No abdominal aortic aneurysm. Lymph nodes: Unremarkable. No enlarged lymph nodes. Urinary bladder: There is a Dumont catheter and a small focus of air in the bladder. Bladder wall is thickened and irregular in contour. There is mild hazy stranding in the pericystic fat. Reproductive: The uterus is not visualized, consistent with hysterectomy. Bones/joints: Mild lateral curvature of the thoracolumbar spine with the convexity to the right. Soft tissues: Unremarkable. CT/CT abdomen pelvis w con* [id number] IMPRESSION: 1. There is mucosal thickening of the rectosigmoid colon and air-fluid levels in the distal colon. Findings are consistent with a nonspecific colitis. 2. The bladder wall is thickened. This is nonspecific and may represent bladder outlet obstruction, inflammation or infection. Neoplastic process is included in the differential. 3. The urothelium of the renal pelves and proximal ureters enhances somewhat prominently raising concern for ascending urinary tract infections. Please correlate clinically. 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
[2020-11-18] MEDS: iohexol 300 mg/mL 100 mL Btl IV (17:11)
[2020-11-18 17:56] LABS: Alanine Aminotransferase 32 U/L (0-33); Albumin Level 4.4 g/dL (3.5-5.2); Alkaline Phosphatase 132 IU/L (35-105); Anion Gap 19.1 (5-19); Aspartate Amino Transferase 26 U/L (0-32); Blood Urea Nitrogen 14 mg/dL (6-20); C Reactive Protein 6.9 mg/L (0.0-4.9); Calcium 9.7 mg/dL (8.5-10.5); Carbon Dioxide 23 mmol/L (22-29); Chloride 100 mmol/L (98-107); Creatine Phosphokinase 24 U/L (26-192); Glomerular Filtration Rate 67.7 mL/min (90-130); Glucose 118 mg/dL (65-115); Lipase 17 U/L (13-60); Osmolality Calculated 288 mOsm/kg (285-295); Potassium 4.1 mmol/L (3.5-5.1); Sodium 138 mmol/L (136-145); Total Bilirubin 0.2 mg/dL (0.15-1.2)
[2020-11-18 18:19] LABS: Lactate (Lactic Acid level) 1.7 mmol/L (0.5-2.2)
[2020-11-18 18:22] LABS: Urine Appearance Hazy (CLEAR); Urine Color Yellow (Yellow)
[2020-11-18 18:23] LABS: Blood Urine 3+ (Negative); Glucose Urine UA Norm (Normal); Ketones Urine 1+ (Negative); Protein Urine 1+ (Negative); pH Urine 5 (5-7)
[2020-11-18 18:24] LABS: Add Urine Microscopic? YES; Bilirubin Urine Neg (Negative); Leukocyte Esterase Urine 2+ (Negative); Nitrate Urine Negative (Negative); Urobilinogen Urine Norm (Negative)
[2020-11-18 18:25] LABS: Add Urine Culture? Yes; Bacteria Urine 2+ /hpf; Squamous Epithelial Cell Urine 0-4 /hpf (0-5); WBC Urine TOO NUMEROUS TO CNT /hpf (0-5)
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
[2020-11-18] MEDS: metoclopramide 5 mg/mL SDV 2 mL 10 MG IVP (20:09)
[2020-11-18] MEDS: piperacillin-tazobactam 3.375 GM in sodium chloride 0.9% (plus) 50 ML IV (20:10)
[2020-11-18] MEDS: HYDROmorphone 1 mg/mL INJ 1 mL IVP (22:00)
[2020-11-18] MEDS: sodium chloride 0.9% 1,000 ML 75 ML IV (22:00)
[2020-11-18] MEDS: enoxaparin 40 mg/0.4 mL Syringe SUBCUT (22:07)
[2020-11-18] MEDS: ALPRAZolam 0.25 mg Tablet PO (23:19)
[2020-11-18] MEDS: gabapentin 100 mg Capsule PO (23:19)
[2020-11-18] MEDS: tizanidine 4 mg Tablet PO (23:19)
[2020-11-19] VITALS (11 sets, daily range): BP systolic 84–108; BP diastolic 51–68; PULSE 59–79; RESP 16–19; TEMP 36.5–36.9; O2SAT 94–97
[2020-11-19] MEDS: HYDROmorphone 1 mg/mL INJ 1 mL IVP ×5 (02:31→21:19)
[2020-11-19 05:31] LABS: Basophils % 0.4 %; Eosinophils # 0.1 10^3/uL (0.0-0.8); Eosinophils % 1.2 %; Hematocrit 36.8 % (37.0-47.0); Hemoglobin 11.3 g/dL (11.5-15.3); Lymphocytes # 1.7 10^3/uL (0.8-4.8); Lymphocytes % 22.3 %; Mean Corpuscular HGB Conc 30.7 g/dL (30.0-36.0); Mean Corpuscular Hemoglobin 28.3 pg (28.0-34.0); Mean Platelet Volume 9.9 fL (7.4-10.4); Monocytes # 0.6 10^3/uL (0.2-0.9); Monocytes % 7.4 %; Neutrophils # 5.35 10^3/uL (1.8-7.7); Neutrophils % 68.4 %; Nucleated Red Blood Cells % 0 %; Platelet Count 298 10^3/cmm (130-400); Red Cell Distribution Width 14.4 % (12.1-15.1); White Blood Count 7.8 10^3/uL (4.0-10.0)
[2020-11-19 06:20] LABS: Anion Gap 14.1 (5-19); Blood Urea Nitrogen 14 mg/dL (6-20); Calcium 9.1 mg/dL (8.5-10.5); Carbon Dioxide 25 mmol/L (22-29); Chloride 100 mmol/L (98-107); Glomerular Filtration Rate 77.6 mL/min (90-130); Glucose 110 mg/dL (65-115); Osmolality Calculated 281 mOsm/kg (285-295); Potassium 4.1 mmol/L (3.5-5.1); Sodium 135 mmol/L (136-145)
--- NOTE | 2020-11-19 06:54 | PC.NURSE ---
Report to Kristine PONCE
[2020-11-19] MEDS: ondansetron 2 mg/ML SDV 2 mL 4 MG IVP ×2 (08:14→15:19)
[2020-11-19] MEDS: ascorbic acid 500 mg Tablet 1000 MG PO ×2 (08:16→20:17)
[2020-11-19] MEDS: docusate sodium 100 mg Capsule PO ×2 (08:16→20:17)
[2020-11-19] MEDS: sennosides-docusate Tablet 2 TAB PO ×2 (08:16→20:17)
[2020-11-19] MEDS: pantoprazole DR 40 mg Tablet PO (08:16)
[2020-11-19] MEDS: lactulose oral liq 20 gm/30 mL UDC 15 GM PO ×2 (08:17→20:17)
[2020-11-19] MEDS: gabapentin 100 mg Capsule PO ×3 (08:17→20:17)
[2020-11-19] MEDS: sertraline 50 mg Tablet PO (08:17)
[2020-11-19] MEDS: ALPRAZolam 0.25 mg Tablet PO ×3 (09:15→23:32)
--- NOTE | 2020-11-19 09:28 | PC.CHAP ---
Pastoral Care Encounter/Spiritual Assessment Type of Contact [] Declined computer installation engineer visit [] Patient/Family/Request visit [] Outpatient visit [] Follow-up visit [] Physician referral [] Code/Alert [x] Routine visit [] Staff referral [] Actively dying [] Patient sleeping [] Family support [] [] Out of room [] Palliative care [] [] Receiving care in room [] Pre-surgical visit [] Trauma [] Long length of stay [] ICU visit [] Other: Relational/Emotional Strength [] Patient feels connected with others/family/visitors/staff [] Distress [] Loneliness/isolation [] Abandonment Spirituality of Patient [x] Person of Susan [] Attends Hinduism of their Susan [] Believes in Prayer [] Reads Bible or Latter-Day materials [] There are Spiritual issues to be addressed Diabetic Educator Interventions [x] Prayer [x] Active listening [] Non-anxious presence [] Spiritual/emotional support [] Crisis/trauma care [] Spiritual counseling [] Bereavement support [] Provided bereavement packet [] Provided Bible/devotional materials [] Provided toy/stuffed animal, coloring book to patient or family member [] Provided Communion [] Anointing/[place] [] Salvation [x] Completed spiritual assessment [] Other: Impact on Illness or Injury [] Angry [] Fearful [] Anxious [] Often cries [] Exhaustion [] Unable to work [] Unable to attend islam [] Unable to walk/stand [] Unable to read [] Unable to drive [] Unable to eat/drink [] Unable to sleep [] Unable to be with family [] Patient intubated [] Other: Summary great patient with a great attitudes Time spent with patient 15 min
[2020-11-19] MEDS: sodium chloride 0.9% 1,000 ML 75 ML IV (10:46)
[2020-11-19] MEDS: metoclopramide 5 mg/mL SDV 2 mL 10 MG IVP ×2 (12:19→21:19)
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
[2020-11-19] MEDS: tizanidine 4 mg Tablet PO ×2 (15:23→23:33)
[2020-11-19 20:00] LABS: Globulin 4.1 g/dL (1.3-4.6); Total Protein 8.5 g/dL (6.6-8.7)
[2020-11-19] MEDS: enoxaparin 40 mg/0.4 mL Syringe SUBCUT (21:56)
[2020-11-20] VITALS (11 sets, daily range): BP systolic 80–120; BP diastolic 50–81; PULSE 72–92; RESP 16–18; TEMP 36.6–37.2; O2SAT 94–97
[2020-11-20] MEDS: ondansetron 2 mg/ML SDV 2 mL 4 MG IVP ×3 (00:22→20:14)
[2020-11-20] MEDS: HYDROmorphone 1 mg/mL INJ 1 mL IVP ×4 (01:45→20:07)
[2020-11-20] MEDS: sodium chloride 0.9% 1,000 ML 75 ML IV ×2 (01:54→17:28)
[2020-11-20] MEDS: metoclopramide 5 mg/mL SDV 2 mL 10 MG IVP (05:39)
[2020-11-20] MEDS: pantoprazole DR 40 mg Tablet PO (08:41)
[2020-11-20] MEDS: ascorbic acid 500 mg Tablet 1000 MG PO ×2 (08:41→20:22)
[2020-11-20] MEDS: sertraline 50 mg Tablet PO (08:41)
[2020-11-20] MEDS: gabapentin 100 mg Capsule PO ×3 (08:41→20:22)
[2020-11-20] MEDS: ALPRAZolam 0.25 mg Tablet PO ×2 (09:30→20:52)
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
[2020-11-20] MEDS: tizanidine 4 mg Tablet PO (17:28)
[2020-11-20] MEDS: docusate sodium 100 mg Capsule PO (20:22)
[2020-11-20] MEDS: sennosides-docusate Tablet 2 TAB PO (20:23)
[2020-11-20] MEDS: lactulose oral liq 20 gm/30 mL UDC 15 GM PO (20:29)
[2020-11-20] MEDS: enoxaparin 40 mg/0.4 mL Syringe SUBCUT (20:52)
[2020-11-21] VITALS (14 sets, daily range): BP systolic 101–126; BP diastolic 67–80; PULSE 62–85; RESP 16–18; TEMP 36.4–36.9; O2SAT 94–98
[2020-11-21] MEDS: HYDROmorphone 1 mg/mL INJ 1 mL IVP ×6 (00:11→22:27)
[2020-11-21] MEDS: metoclopramide 5 mg/mL SDV 2 mL 10 MG IVP ×3 (00:11→20:16)
[2020-11-21] MEDS: ondansetron 2 mg/ML SDV 2 mL 4 MG IVP ×3 (04:35→17:17)
[2020-11-21 06:30] LABS: Basophils % 0.5 %; Eosinophils # 0.1 10^3/uL (0.0-0.8); Eosinophils % 1.1 %; Hematocrit 32.6 % (37.0-47.0); Hemoglobin 10.1 g/dL (11.5-15.3); Lymphocytes # 1.6 10^3/uL (0.8-4.8); Lymphocytes % 22.1 %; Mean Corpuscular Hemoglobin 28.4 pg (28.0-34.0); Mean Corpuscular Volume 91.6 fL (81-99); Monocytes # 0.6 10^3/uL (0.2-0.9); Monocytes % 8.7 %; Neutrophils # 4.94 10^3/uL (1.8-7.7); Neutrophils % 67.3 %; Nucleated Red Blood Cells % 0 %; Platelet Count 245 10^3/cmm (130-400); Red Blood Count 3.56 10^6/uL (4.1-5.3); Red Cell Distribution Width 13.8 % (12.1-15.1); White Blood Count 7.3 10^3/uL (4.0-10.0)
[2020-11-21] MEDS: sodium chloride 0.9% 1,000 ML 75 ML IV ×2 (06:42→15:52)
[2020-11-21 06:56] LABS: Alanine Aminotransferase 13 U/L (0-33); Albumin Level 3.3 g/dL (3.5-5.2); Alkaline Phosphatase 88 IU/L (35-105); Anion Gap 13.3 (5-19); Aspartate Amino Transferase 13 U/L (0-32); Blood Urea Nitrogen 6 mg/dL (6-20); Calcium 8.8 mg/dL (8.5-10.5); Carbon Dioxide 23 mmol/L (22-29); Chloride 107 mmol/L (98-107); Globulin 3.5 g/dL (1.3-4.6); Glomerular Filtration Rate 108.1 mL/min (90-130); Glucose 84 mg/dL (65-115); Osmolality Calculated 287 mOsm/kg (285-295); Potassium 3.3 mmol/L (3.5-5.1); Sodium 140 mmol/L (136-145); Total Bilirubin 0.2 mg/dL (0.15-1.2); Total Protein 6.8 g/dL (6.6-8.7)
[2020-11-21] MEDS: pantoprazole DR 40 mg Tablet PO (07:58)
[2020-11-21] MEDS: docusate sodium 100 mg Capsule PO ×2 (07:58→20:33)
[2020-11-21] MEDS: tizanidine 4 mg Tablet PO ×2 (07:58→20:33)
[2020-11-21] MEDS: lactulose oral liq 20 gm/30 mL UDC 15 GM PO ×2 (07:58→20:33)
[2020-11-21] MEDS: sertraline 50 mg Tablet PO (07:58)
[2020-11-21] MEDS: gabapentin 100 mg Capsule PO ×3 (07:58→20:32)
[2020-11-21] MEDS: ascorbic acid 500 mg Tablet 1000 MG PO ×2 (07:58→20:33)
[2020-11-21] MEDS: sennosides-docusate Tablet 2 TAB PO ×2 (07:58→20:33)
--- NOTE | 2020-11-21 08:13 | PC.NURSE ---
Patient refused breakfast tray, reports nausea and pain to abdomen /, PRN reglan and dilaudid given per doctors orders see MAR for further details, range of motion to bilateral upper extremities completed by this nurse per patient request, call light under chin to allow patient chin press, repositioned and body floating on pillows, radiology in room to complete x-ray.
[2020-11-21] MEDS: ALPRAZolam 0.25 mg Tablet PO ×2 (11:50→20:32)
--- NOTE | 2020-11-21 16:11 | PC.NURSE ---
patient has required frequent repositioning more frequently than q1hour throughout shift, patient calls frequently transportation dispatcher light and this nurse provides needs, patient uses towels rolled for hand positioning and arm positioning, patient is floated on pillows and heel protectors are in place.
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
[2020-11-21] MEDS: piperacillin-tazobactam 3.375 GM in sodium chloride 0.9% (plus) 50 ML IV (17:05)
[2020-11-21] MEDS: potassium chloride ER 20 mEq Tablet PO (17:07)
--- NOTE | 2020-11-21 19:00 | XR_ITS ---
WS: [id number] Exam: XR KUB [id number] Date/Time of Exam: 11/21/2020 8:28 AM Reason For Exam: colitis Comparison 05/28/2020. No bowel obstruction or free air. Visualized organ margins are intact. Numerous surgical clips in the upper left quadrant. Bony structures are intact. Mild dextroscoliosis of the L-spine. DJD of both hi ps. XR/XR KUB [id number] IMPRESSION: 1. No acute abdominal process.
[2020-11-21] MEDS: fentaNYL 50 mcg Patch 1 PATCH TRANSDERMA (22:07)
[2020-11-21] MEDS: enoxaparin 40 mg/0.4 mL Syringe SUBCUT (22:07)
[2020-11-22] VITALS (7 sets, daily range): BP systolic 122–125; BP diastolic 79–82; PULSE 66–78; RESP 16–18; TEMP 36.4–37; O2SAT 95–97
[2020-11-22] MEDS: piperacillin-tazobactam 3.375 GM in sodium chloride 0.9% (plus) 50 ML IV ×2 (01:57→08:28)
[2020-11-22] MEDS: HYDROmorphone 1 mg/mL INJ 1 mL IVP ×2 (03:01→13:24)
[2020-11-22] MEDS: metoclopramide 5 mg/mL SDV 2 mL 10 MG IVP ×2 (03:01→13:24)
[2020-11-22] MEDS: pantoprazole DR 40 mg Tablet PO (08:29)
[2020-11-22] MEDS: gabapentin 100 mg Capsule PO (08:29)
[2020-11-22] MEDS: sertraline 50 mg Tablet PO (08:29)
[2020-11-22] MEDS: lactulose oral liq 20 gm/30 mL UDC 15 GM PO (08:29)
[2020-11-22] MEDS: sennosides-docusate Tablet 2 TAB PO (08:29)
[2020-11-22] MEDS: ascorbic acid 500 mg Tablet 1000 MG PO (08:29)
[2020-11-22] MEDS: docusate sodium 100 mg Capsule PO (08:29)
[2020-11-22] MEDS: ALPRAZolam 0.25 mg Tablet PO (09:32)
--- NOTE | 2020-11-22 10:16 | PC.SOCIAL ---
IMM update Pg.2 of IMM Updated and reviewed with patient who verbalized understanding. Copy provided.
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
== END 2020-11-22 14:25 | disposition skilled nursing facility (03) | DRG 391 ==
LOC: ER 16:29 → MEDSURG 20:45
PROVIDERS: Admitting Provider Internal Medicine; Emergency Provider Family Medicine; PCP Family Medicine; Visit Provider Hospitalist
DX: K52.9 Noninfective gastroenteritis and colitis, unspecified (principal); G82.50 Quadriplegia, unspecified; Z86.16 Personal history of COVID-19; Z96.0 Presence of urogenital implants; S14.159S Other incomplete lesion at unspecified level of cervical spinal cord, sequela; V89.2XXS Person injured in unspecified motor-vehicle accident, traffic, sequela; Z87.440 Personal history of urinary (tract) infections; N31.9 Neuromuscular dysfunction of bladder, unspecified; Z87.891 Personal history of nicotine dependence; L89.892 Pressure ulcer of other site, stage 2; E87.6 Hypokalemia; Z79.891 Long term (current) use of opiate analgesic
CPT/HCPCS: 12345; 36415; 74018; 74177; 80048; 80053; 81001; 82550; 83605; 83690; 85025; 86140; 87086; 96372; 99283; G0378; J0743; J1170; J1650; J2270; J2405; J2543; J2765; J7030; Q9967

== ENCOUNTER 2021-01-07 08:04 | Outpatient (CLI) | payer MEDICARE, MEDICAID, SELFPAY ==
--- NOTE | 2021-01-07 08:30 | FL_ITS ---
WS: [id number] Barium Enema TECHNICAL: Single contrast barium enema. Exam is somewhat limited due to patient's difficulty with mo bility. FLUOROSCOPY TIME: 3.8 minutes CLINICAL INFORMATION: K52.9 - Noninfective gastroenteritis and colitis, unspecified COMPARISON: None. FINDINGS: Market Investigator imaging demonstrates air distended colon. Mild lumbar curve convex right. Surgical cl ips at the GE junction. Pelvic phleboliths. Moderate joint space narrowing right greater than left hi ps advanced for patient this age. Tortuous sigmoid colon otherwise normal in appearance. No evidence of high-grade stricture or obstruc ting mass. Normal hepatic and splenic flexure. Contrast is visualized to the level of the cecum. No s uspicious filling defects. FL/FL barium enema [id number] IMPRESSION: 1. Markedly tortuous sigmoid colon. Sigmoid colon otherwise unremarkable. 2. Normal hepatic flexure and splenic flexure. Free flow of contrast to the ce cum. 3. No suspicious stricture or obstructing mass in the colon. No suspicious garret ling defects. 4. Otherwise normal barium enema.
== END 2021-01-07 08:05 | disposition home or self-care (01) ==
LOC: RAD 08:06
PROVIDERS: PCP Family Medicine; Visit Provider Surgery
DX: K52.9 Noninfective gastroenteritis and colitis, unspecified (principal)
CPT/HCPCS: 74270

== ENCOUNTER 2021-05-13 17:11 | Emergency (ER) | payer MEDICARE, MEDICAID, SELFPAY ==
[2021-05-13 17:31] VITALS: BP 119/83; PULSE 98; RESP 17; TEMP 37.1; O2SAT 97; BMI 26.6
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
[2021-05-13 19:17] LABS: Basophils % 0.4 %; Eosinophils # 0.1 10^3/uL (0.0-0.8); Eosinophils % 1.2 %; Hematocrit 42.9 % (37.0-47.0); Hemoglobin 12.8 g/dL (11.5-15.3); Lymphocytes # 1.6 10^3/uL (0.8-4.8); Lymphocytes % 15.9 %; Mean Corpuscular HGB Conc 29.8 g/dL (30.0-36.0); Mean Corpuscular Hemoglobin 29.2 pg (28.0-34.0); Mean Corpuscular Volume 97.7 fL (81-99); Mean Platelet Volume 9.7 fL (7.4-10.4); Monocytes # 0.7 10^3/uL (0.2-0.9); Monocytes % 6.8 %; Neutrophils # 7.71 10^3/uL (1.8-7.7); Neutrophils % 75.3 %; Nucleated Red Blood Cells % 0 %; Platelet Count 297 10^3/cmm (130-400); Red Blood Count 4.39 10^6/uL (4.1-5.3); White Blood Count 10.2 10^3/uL (4.0-10.0)
[2021-05-13 19:42] LABS: Alanine Aminotransferase 21 U/L (0-33); Albumin Level 3.5 g/dL (3.5-5.2); Alkaline Phosphatase 125 IU/L (35-105); Anion Gap 19.5 (5-19); Aspartate Amino Transferase 17 U/L (0-32); Blood Urea Nitrogen 14 mg/dL (6-20); Calcium 8.6 mg/dL (8.5-10.5); Carbon Dioxide 20 mmol/L (22-29); Chloride 99 mmol/L (98-107); Globulin 4.3 g/dL (1.3-4.6); Glomerular Filtration Rate 67.4 mL/min (90-130); Glucose 143 mg/dL (65-115); Lipase 18 U/L (13-60); Osmolality Calculated 281 mOsm/kg (285-295); Potassium 4.5 mmol/L (3.5-5.1); Sodium 134 mmol/L (136-145); Total Bilirubin 0.2 mg/dL (0.15-1.2); Total Protein 7.8 g/dL (6.6-8.7)
[2021-05-13 19:48] LABS: HCG, Serum Qual Negative (Negative)
[2021-05-13] MEDS: morphine 4 mg/mL SDV 1 mL IM (20:13)
--- NOTE | 2021-05-13 20:47 | CTR_ITS ---
PROCEDURE INFORMATION: Exam: CT Abdomen And Pelvis Without Contrast Exam date and time: 05/13/2021 8:47 PM Age: 46 years old Clinical indication: Abdominal pain; Localized; Right lower quadrant (rlq); Prior surgery; Surgery type: Hyst, bladder, spine; Patient HX: HX of uterine cancer; Additional info: Rlq pain TECHNIQUE: Imaging protocol: Computed tomography of the abdomen and pelvis without contrast. Total images: 246 Radiation optimization: All CT scans at this facility use at least one of these dose optimization techniques: automated exposure control; mA and/or kV adjustment per patient size (includes targeted exams where dose is matched to clinical indication); or iterative reconstruction. COMPARISON: CT abdomen pelvis w con* [id number] 11/18/2020 5:01 PM RADIATION DOSE METRICS: Total DLP (mGy-cm): 1828.98 FINDINGS: Lungs: Limited assessment lung bases reveals minimal chronic dependent atelectasis lung bases. Liver: No visible hepatic mass or cystic structure. Gallbladder and bile ducts: Unremarkable. No calcified stones. No ductal dilation. Pancreas: Pancreas is unremarkable. No visible pancreatic ductal ectasia. Spleen: Spleen unremarkable. Adrenal glands: Adrenal glands with a stable small left adrenal adenoma measuring 15 mm x 10 mm. No follow-up recommended. Right adrenal gland unremarkable. Kidneys and ureters: Moderate severe right hydronephrosis and hydroureter to the right ureterovesical junction. The right ureterovesical junction and right ureteral vesicle orifice is obstructed by the tip of the Dumont catheter. No ureterolithiasis. The Dumont catheter should be pulled back to remove the catheter tip from the distal right ureter. Nonobstructing calyceal nephrolithiasis foci right kidney. Very small stone or stones within the right renal extrarenal pelvis. Two small focus of nonobstructing calyceal nephrolithiasis equator left kidney measuring a maximum diameter 4 mm. No left hydronephrosis or hydroureter. No visible left ureterolithiasis. Stomach and bowel: Heavy fecal residue consistent with constipation and potential fecal impaction. Nonobstructive bowel pattern. No visible adynamic or reactive ileus. Evidence of a previous gastroplasty. Appendix: The appendix is visualized and appears noninflamed. Intraperitoneal space: No visible pneumoperitoneum or intraperitoneal ascites. Vasculature: The abdominal aorta is nonaneurysmal. Minimal arterial sclerotic disease. Lymph nodes: No clinically enlarged lymph nodes. Few small retroperitoneal periaortic/pericaval nodes stable since last evaluation. Doubt of clinical significance. Urinary bladder: Dumont catheter within a decompressed urinary bladder with the tip within the right ureterovesical junction orifice obstructing the right ureter. Reproductive: Status post hysterectomy. Bones/joints: No visible active or acute osseous pathology. Soft tissues: Diffuse muscle atrophy. CT/CT abdomen pelvis wo con [id number] IMPRESSION: 1. Moderate severe right hydronephrosis and hydroureter to the right ureterovesical junction. 2. The right ureterovesical junction and right ureteral vesicle orifice is obstructed by the tip of the Dumont catheter. 3. No ureterolithiasis. 4. The Dumont catheter should be pulled back to remove the catheter tip from the distal right ureter. 5. Bilateral nephrolithiasis, right more involved than left. 6. Stable small left adrenal adenoma. No follow-up recommended. 7. Constipation and potential fecal impaction. COMMENTS: Consistent with the [employer]'s Incidental Findings Committee white paper (J Am Karine Radiol 2018): Any incidental renal lesion less than 1 cm or classified as too small to characterize, or any incidental cystic renal lesion characterized as simple-appearing, is likely benign. No follow-up imaging is recommended for these lesions per consensus recommendations based on imaging criteria. Radiation Dose CTDIVOL = (mGy): DLP = 1828.98 (mGy-cm)
[2021-05-13 20:54] VITALS: BP 113/72; PULSE 110; RESP 18; O2SAT 94
[2021-05-13] MEDS: sodium chloride 0.9% 500 ML 999 ML IV ×2 (20:55→21:40)
[2021-05-13 21:46] LABS: Add Urine Culture? Yes; Add Urine Microscopic? YES; Amorphous Sediment Urine 2+ /hpf; Bacteria Urine 4+ /hpf; Bilirubin Urine Neg (Negative); Blood Urine 2+ (Negative); Glucose Urine UA Norm (Normal); Ketones Urine Negative (Negative); Leukocyte Esterase Urine 2+ (Negative); Nitrate Urine Positive (Negative); Protein Urine Neg (Negative); RBC Urine 0-4 /hpf (0-2); Specific Gravity, Urine 1.005 (1.005-1.030); Squamous Epithelial Cell Urine 0-4 /hpf (0-5); Urine Appearance Cloudy (CLEAR); Urine Color Yellow (Yellow); Urobilinogen Urine Norm (Negative); WBC Urine >100 /hpf (0-5); pH Urine 7 (5-7)
[2021-05-13] MEDS: amoxicillin-clav 875-125 mg Tablet 1 TAB PO (23:20)
[2021-05-13 23:24] VITALS: BP 100/63; PULSE 90; RESP 16; O2SAT 95
[2021-05-14] VITALS (9 sets, daily range): BP systolic 73–98; BP diastolic 45–64; PULSE 71–84; RESP 14–23; TEMP 36.8; O2SAT 92–95
[2021-05-14] MEDS: morphine 4 mg/mL SDV 1 mL 2 MG IVP (04:42)
[2021-05-14] MEDS: HYDROcodone-acetaminophen 5-325 mg Tablet 1 TAB PO (09:06)
--- NOTE | 2021-05-14 10:26 | PC.NURSE ---
UPDATED REPORT CALLED TO MARIBELL AT [facility].
== END 2021-05-14 09:55 | disposition home or self-care (01) ==
PROVIDERS: Emergency Provider Nurse Practitioner Family; PCP Family Medicine
DX: T83.518A Infection and inflammatory reaction due to other urinary catheter, initial encounter (principal); N39.0 Urinary tract infection, site not specified; B95.2 Enterococcus as the cause of diseases classified elsewhere; Y73.1 Therapeutic (nonsurgical) and rehabilitative gastroenterology and urology devices associated with adverse incidents
CPT/HCPCS: 51702; 74176; 80053; 81001; 83690; 84703; 85025; 87086; 96372; 96374; 99284; J2270; J7040

== ENCOUNTER 2021-06-04 20:08 | Outpatient (CLI) | payer MEDICARE, MEDICAID, SELFPAY ==
[2021-06-04 20:36] LABS: Basophils % 0.6 %; Eosinophils # 0.2 10^3/uL (0.0-0.8); Eosinophils % 3.3 %; Hemoglobin 10.9 g/dL (11.5-15.3); Lymphocytes # 1.6 10^3/uL (0.8-4.8); Lymphocytes % 24.8 %; Mean Corpuscular HGB Conc 31.1 g/dL (30.0-36.0); Mean Corpuscular Hemoglobin 28.8 pg (28.0-34.0); Mean Corpuscular Volume 92.6 fL (81-99); Mean Platelet Volume 10.1 fL (7.4-10.4); Monocytes # 0.5 10^3/uL (0.2-0.9); Monocytes % 7.8 %; Neutrophils # 4.13 10^3/uL (1.8-7.7); Neutrophils % 62.9 %; Nucleated Red Blood Cells % 0 %; Platelet Count 290 10^3/cmm (130-400); Red Blood Count 3.78 10^6/uL (4.1-5.3); Red Cell Distribution Width 14.2 % (12.1-15.1); White Blood Count 6.6 10^3/uL (4.0-10.0)
[2021-06-04 21:26] LABS: Amylase 48 U/L (28-100); Anion Gap 15.1 (5-19); Blood Urea Nitrogen 11 mg/dL (6-20); Calcium 8.2 mg/dL (8.5-10.5); Carbon Dioxide 23 mmol/L (22-29); Chloride 101 mmol/L (98-107); Chol HDL Ratio 7.72 mg/dL (0.0-4.40); Cholesterol 247 mg/dL (0-200); Glomerular Filtration Rate 132.8 mL/min (90-130); Glucose 201 mg/dL (65-115); HDL Cholesterol 32 mg/dL (60-100); LDL Cholesterol Calculated 137 mg/dL (50-129); LDL HDL Ratio 4.28 RATIO (0.00-3.22); Lipase 23 U/L (13-60); Osmolality Calculated 285 mOsm/kg (285-295); Potassium 4.1 mmol/L (3.5-5.1); Sodium 135 mmol/L (136-145); Triglycerides 391 mg/dL (0-150)
== END 2021-06-04 20:09 | disposition home or self-care (01) ==
PROVIDERS: PCP Family Medicine; Visit Provider Internal Medicine
DX: R10.9 Unspecified abdominal pain (principal)
CPT/HCPCS: 80048; 80061; 82150; 83690; 85025

== ENCOUNTER 2021-07-13 00:21 | Emergency (ER) | payer MEDICARE, MEDICAID, SELFPAY ==
[2021-07-13] VITALS (7 sets, daily range): BP systolic 80–96; BP diastolic 53–62; PULSE 60–74; RESP 13–18; TEMP 36.7; O2SAT 94–97; BMI 26.1
--- NOTE | 2021-07-13 00:25 | CTR_ITS ---
PROCEDURE INFORMATION: Exam: CT Abdomen And Pelvis With Contrast Exam date and time: 07/13/2021 12:25 AM Age: 46 years old Clinical indication: Bloating and constipation; Abdominal pain; Prior surgery; Surgery type: Hysterectomy. Spine. Bladder. Partial gastrectomy. ; Patient HX: Generalized abd pain with distention and constipation. PT quadraplegic. Unable to put arms above head. TECHNIQUE: Imaging protocol: Computed tomography of the abdomen and pelvis with contrast. Radiation optimization: All CT scans at this facility use at least one of these dose optimization techniques: automated exposure control; mA and/or kV adjustment per patient size (includes targeted exams where dose is matched to clinical indication); or iterative reconstruction. Contrast material: OMNI 300; Contrast volume: 95 ml; Contrast route: INTRAVENOUS (IV); COMPARISON: 1. CT abdomen pelvis wo con [id number] 2021-05-13 21:[address] abdomen pelvis w con* [id number] 2020-11-18 17:[address] chest abd pel w con* 08/08/2020 2:55:32 PM RADIATION DOSE METRICS: Total DLP (mGy-cm): 1380.19 FINDINGS: Limitations: Artifact related to patient's arm position limits evaluation. Diminished contrast enhancement with excessive contrast within the veins of the left upper extremity, no corresponding abnormality to explain on the prior from 08/08/2020, likely a timing bolus issue. Lungs: Right lung base subsegmental atelectasis. Mediastinal space: Small hiatal hernia with mild gastroesophageal junction thickening, correlate for esophagitis. Liver: Hepatic steatosis. Gallbladder and bile ducts: Normal. No calcified stones. No ductal dilation. Pancreas: Normal. No ductal dilation. Spleen: Normal. No splenomegaly. Adrenal glands: Incidental 1 cm benign left adrenal adenoma unchanged. Kidneys and ureters: Lobulated atrophic kidneys with mild cortical scarring. 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 Excessive stool in the distal sigmoid colon with thickening of the rectal wall, correlate, consider GI follow-up. Additionally, there is some adjacent mesorectal stranding and presacral stranding. Appendix: Normal appendix. Intraperitoneal space: Unremarkable. No free air. No significant fluid collection. Vasculature: Unremarkable. No abdominal aortic aneurysm. Lymph nodes: Unremarkable. No enlarged lymph nodes. Urinary bladder: Anterior bladder wall thickening, question scarring prior surgery, or perhaps a mucosal lesion but appears unchanged. Reproductive: Right adnexal 4.2 cm cyst with some marginal calcification and wall thickening appears unchanged, if not previously evaluated by ultrasound, consider. Hysterectomy. Bones/joints: Mild lower lumbar spinal stenosis with degenerative disc bulges. Moderate severe bilateral hip degenerative joint disease with overhanging osteophytes. Soft tissues: Mild soft tissue edema. Other findings: CT/CT abdomen pelvis w con* [id number] IMPRESSION: 1. Excessive stool in the distal sigmoid colon with thickening of the rectal wall, correlate, consider GI follow-up. Additionally, there is some adjacent meso rectal stranding and presacral stranding. 2. Right adnexal 4.2 cm cyst with some marginal calcification and wall thickening appears unchanged, if not previously evaluated by ultrasound, consider. 3. Small hiatal hernia with mild gastroesophageal junction thickening, correlate for esophagitis. 4. Lobulated atrophic kidneys with mild cortical scarring. No acute hydronephrosis or masses. 5. Anterior bladder wall thickening, question scarring prior surgery, or perhaps a mucosal lesion but appears unchanged. 6. Incidental 1 cm benign left adrenal adenoma unchanged. 7. Moderate severe bilateral hip degenerative joint disease with overhanging osteophytes. 7. Diminished contrast enhancement with excessive contrast within the veins of the left upper extremity, no corresponding abnormality to explain on the prior from 08/08/2020, likely a timing bolus issue. Radiation Dose CTDIVOL = (mGy): DLP = 1380.19 (mGy-cm)
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
--- NOTE | 2021-07-13 01:00 | XRR_ITS ---
PROCEDURE INFORMATION: Exam: XR Chest Exam date and time: 07/13/2021 1:00 AM Age: 46 years old Clinical indication: Other: Fluid retention, distention; Patient HX: Fluid retention , abdominal distention; Additional info: Cp TECHNIQUE: Imaging protocol: XR of the chest. Views: 1 view. COMPARISON: 1. CT chest abd pel w con* 2020-08-08 14:55 2. CR XR chest 1V portable [id number] 2020-06-02 21:08 3. CR XR chest 1V portable [id number] 2020-04-22 01:39 4. CR XR chest 1V portable [id number] 2019-12-05 10:12 FINDINGS: Limitations: Limited by patient's body habitus. Lungs: Right lung base subsegmental atelectasis. Pleural spaces: Unremarkable. No pleural effusion. No pneumothorax. Heart/Mediastinum: Unremarkable. No cardiomegaly. Bones/joints: Mild dextroconvex thoracic curvature. Other findings: Previous partial gastrectomy. XR/XR chest 1V portable [id number] IMPRESSION: No acute abnormality.
[2021-07-13] MEDS: sodium chloride 0.9% 1,000 ML 999 ML IV (01:11)
[2021-07-13 01:12] LABS: Basophils # 0.1 10^3/uL (0.0-0.1); Basophils % 0.6 %; Eosinophils # 0.3 10^3/uL (0.0-0.8); Eosinophils % 3.9 %; Hematocrit 37.3 % (37.0-47.0); Hemoglobin 11.7 g/dL (11.5-15.3); Lymphocytes % 25.1 %; Mean Corpuscular HGB Conc 31.4 g/dL (30.0-36.0); Mean Corpuscular Hemoglobin 28.7 pg (28.0-34.0); Mean Corpuscular Volume 91.6 fl (81-99); Monocytes # 0.6 10^3/uL (0.2-0.9); Monocytes % 7.8 %; Neutrophils # 4.83 10^3/uL (1.8-7.7); Neutrophils % 62.1 %; Nucleated Red Blood Cells % 0 %; Platelet Count 306 10^3/cmm (130-400); Red Blood Count 4.07 10^6/uL (4.1-5.3); White Blood Count 7.8 10^3/uL (4.0-10.0)
[2021-07-13 01:32] LABS: Alanine Aminotransferase 22 U/L (0-33); Albumin Level 3.8 g/dL (3.5-5.2); Alkaline Phosphatase 105 IU/L (35-105); Anion Gap 16.2 (5-19); Aspartate Amino Transferase 17 U/L (0-32); Blood Urea Nitrogen 11 mg/dL (6-20); Calcium 9.1 mg/dL (8.5-10.5); Carbon Dioxide 23 mmol/L (22-29); Chloride 97 mmol/L (98-107); Globulin 3.2 g/dL (1.3-4.6); Glomerular Filtration Rate 107.6 mL/min (90-130); Glucose 158 mg/dL (65-115); Lipase 24 U/L (13-60); Osmolality Calculated 277 mOsm/kg (285-295); Potassium 4.2 mmol/L (3.5-5.1); Sodium 132 mmol/L (136-145); Total Bilirubin 0.2 mg/dL (0.15-1.2)
[2021-07-13 01:33] LABS: Lactate (Lactic Acid level) 1.7 mmol/L (0.5-2.2)
[2021-07-13] MEDS: iohexol 300 mg/mL 100 mL Btl IV (01:54)
[2021-07-13 02:33] LABS: Troponin(5th) Baseline 10 ng/L (0-10)
[2021-07-13 03:41] LABS: NT Pro B Type Natriuretic Pept 245 pg/mL (0-125)
[2021-07-13 04:04] LABS: Bilirubin Urine Neg (Negative); Blood Urine 2+ (Negative); Glucose Urine UA Norm (Normal); Ketones Urine Negative (Negative); Leukocyte Esterase Urine 2+ (Negative); Nitrate Urine Negative (Negative); Protein Urine Neg (Negative); Specific Gravity, Urine 1.005 (1.005-1.030); Urine Color Yellow (Yellow); Urobilinogen Urine Norm (Negative); pH Urine 8 (5-7)
[2021-07-13 04:06] LABS: Add Urine Microscopic? YES; Sulfosalicylic Acid Urine Negative (Negative)
[2021-07-13 04:08] LABS: Bacteria Urine 4+ /hpf; RBC Urine >100 /hpf (0-2); Squamous Epithelial Cell Urine 25-40 /hpf (0-5); WBC Urine >100 /hpf (0-5)
[2021-07-13 04:09] LABS: Add Urine Culture? No
--- NOTE | 2021-07-13 04:09 | ECG_ITS ---
[facility] Test Date: 2021-07-13 Pat Name: Rosanne Morales Department: Room: Gender: Female Project Asst: : 1975 Requested By: Liliana Anderson Order Number: [id number] Helen MD: Ellen Kincaid M.D. Measurements Intervals [place] Rate: 75 P: -4 IN: 135 QRS: 57 QRSD: 79 T: 99 QT: 409 QTc: 457 Interpretive Statements SINUS RHYTHM LOW QRS VOLTAGE IN EXTREMITY LEADS [QRS DEFLECTION < 0.5 mV IN LIMB LEADS] POSSIBLE RIGHT VENTRICULAR CONDUCTION DELAY [RSR (QR) IN V1/V2] Compared to ECG 03/04/2020 11:34:12 No significant changes Electronically Signed On 07-13-2021 16:13:34 CDT by Ellen Kincaid M.D. [id number]
--- NOTE | 2021-07-15 11:17 | DCPLANNER ---
construction project manager had message to schedule a follow up appointment for patient with general surgery. construction project manager emailed patients information to both Shakira and Gladis at [facility] General Surgery. Patients information will be printed and reviewed. Clinic will call patient with appointment information.
--- NOTE | 2021-07-16 15:27 | DCPLANNER ---
Patient has a follow up appointment scheduled for Thursday, July 22, 2021 at 11:[address] Carter. Clinic will call patient with appointment information.
--- NOTE | 2021-09-05 07:48 | DCPLANNER ---
Patient had a follow up appointment scheduled for 07.22.[address] Horton at [facility] General Surgery - patient did attend appointment.
== END 2021-07-13 05:10 | disposition home or self-care (01) ==
PROVIDERS: Emergency Provider Emergency Medicine; PCP Family Medicine
DX: K59.00 Constipation, unspecified (principal); N39.0 Urinary tract infection, site not specified
CPT/HCPCS: 71045; 74177; 80053; 81001; 83605; 83690; 83880; 84484; 85025; 93005; 96360; 96361; 99284; J7030; Q9967

== ENCOUNTER 2021-07-25 22:25 | Emergency (ER) | payer MEDICARE, MEDICAID, SELFPAY ==
[2021-07-25 22:30] VITALS: BP 77/50; PULSE 75; RESP 20; TEMP 36.7; O2SAT 95; BMI 25.6
--- NOTE | 2021-07-26 00:15 | CTR_ITS ---
PROCEDURE INFORMATION: Exam: CT Abdomen And Pelvis With Contrast Exam date and time: 07/26/2021 12:15 AM Age: 46 years old Clinical indication: Abdominal pain; Generalized; Prior surgery; Surgery type: Hyst, bladder, spine; Additional info: Rule out infection TECHNIQUE: Imaging protocol: Computed tomography of the abdomen and pelvis with contrast. Radiation optimization: All CT scans at this facility use at least one of these dose optimization techniques: automated exposure control; mA and/or kV adjustment per patient size (includes targeted exams where dose is matched to clinical indication); or iterative reconstruction. Contrast material: OMNI 300; Contrast volume: 95 ml; Contrast route: INTRAVENOUS (IV); COMPARISON: CT abdomen pelvis w con* [id number] 07/13/2021 1:22 AM RADIATION DOSE METRICS: Total DLP (mGy-cm): FINDINGS: Lungs: There are strandy opacity seen in the lung bases bilaterally likely representing atelectasis versus pleural or parenchymal scarring. Liver: Normal. No mass. Gallbladder and bile ducts: Normal. No calcified stones. No ductal dilation. Pancreas: Normal. No ductal dilation. Spleen: Normal. No splenomegaly. Adrenal glands: There is a 1.6 x 1.8 x 1 1 cm left adrenal nodularity present. Kidneys and ureters: There is a prominent 6 x 9 mm nonobstructing renal calculus seen on the right. There is bilateral hydronephrosis and mild hydroureter seen, right more prominent than left without evidence of obstructing ureteral calculi. Some subtle hyperdense material is seen in the dependent portion the renal pelvis sees bilaterally possibly representing some debris or tiny nonobstructing calculi. Stomach and bowel: There are nondilated loops of small bowel containing fluid and a few air-fluid levels, findings could represent ileus. Moderate stool is seen within the descending and sigmoid colon. Appendix: The appendix is visualized and is normal in configuration. Intraperitoneal space: Unremarkable. No free air. No significant fluid collection. Vasculature: Unremarkable. No abdominal aortic aneurysm. Lymph nodes: Unremarkable. No enlarged lymph nodes. Urinary bladder: There is mild bladder wall thickening seen anteriorly likely representing postoperative scarring. Reproductive: Status post hysterectomy. There are 2 hypoattenuation cystic lesions seen associated with the right ovary. The largest cyst measures 2.6 x 3.0 x 4.2 cm. These likely represent benign or functional ovarian cysts. Bones/joints: Unremarkable. No acute fracture. Soft tissues: Unremarkable. CT/CT abdomen pelvis w con* [id number] IMPRESSION: 1. There is bilateral hydronephrosis and hydroureter seen, right more prominent than left without evidence of obstructing ureteral calculi or masses. 2. Mild irregular bladder wall thickening seen anteriorly likely representing postoperative scarring. 3. Nondilated small bowel loops containing fluid and air fluid levels may represent ileus. 4. Moderate stool is seen in the descending and sigmoid colon. 5. Normal appendix 6. Two cystic masses within the right ovary, the largest measuring up to 4.2 cm compatible with benign or functional ovarian cysts. No further workup needed. 7. Nonobstructing 6 x 9 mm calculus in the lower pole of the right kidney. Radiation Dose CTDIVOL = (mGy): DLP = 2054.31 (mGy-cm)
[2021-07-26 00:17] LABS: Basophils # 0.1 10^3/uL (0.0-0.1); Basophils % 0.5 %; Eosinophils # 0.2 10^3/uL (0.0-0.8); Eosinophils % 1.6 %; Hematocrit 34.6 % (37.0-47.0); Hemoglobin 10.8 g/dL (11.5-15.3); Lymphocytes # 2.1 10^3/uL (0.8-4.8); Lymphocytes % 21.3 %; Mean Corpuscular HGB Conc 31.2 g/dL (30.0-36.0); Mean Corpuscular Hemoglobin 28.7 pg (28.0-34.0); Mean Platelet Volume 9.8 fL (7.4-10.4); Monocytes % 9.5 %; Neutrophils # 6.72 10^3/uL (1.8-7.7); Neutrophils % 66.8 %; Nucleated Red Blood Cells % 0 %; Platelet Count 306 10^3/cmm (130-400); Red Blood Count 3.76 10^6/uL (4.1-5.3); Red Cell Distribution Width 14.2 % (12.1-15.1); White Blood Count 10.1 10^3/uL (4.0-10.0)
--- NOTE | 2021-07-26 00:23 | W.ED.GENADLT ---
HPI - General Adult General: Chief complaint: Abdominal Pain Stated complaint: ABD PAIN Time Seen by Provider: 07/25/21 22:33 History of Present Illness: HPI narrative: Patient is a 46-year-old female with history of incomplete quadriplegia who presents the emergency room with concerns for bowel distention x1 month now worsening and new onset of RLQ pain x7 days. Patient denies any nausea vomiting, fever chills reports pain has significantly worsened last time. Patient denies any urinary symptoms. Patient has history of bladder reconstruction. No other focal complaints at this time. Patient is chronically bedbound at home. No complaints of chest pain, palpitation, lightheadedness, diarrhea, melena or hematochezia. Patient has been to tolerate p.o. without difficulty. Onset: 1 month for abdominal distension, 7 days ago for RLQ abd pain Duration: 7 days Location:home Severity: moderate Review of Systems Narrative: Constitutional: No fever, no chills. HEENT: No vision changes CV: No chest pain, no palpitations PULM: no cough, no dyspnea. GI: +RLQ abdominal pain, no N/V/D. +abdominal distension : No dysuria MSKEL: No muscle pain SKIN: No new rashes, no lesions. NEURO: No headache, no focal weakness. HEME: No visible bruises PSYCH: Normal mood PFSH ED PFSH: Medical History Chronic indwelling Dumont catheter Neurogenic bladder Perforated abdominal viscus Condition resolved Post-traumatic quadriplegia Recurrent sepsis due to urinary tract infection Surgical History H/O bladder repair surgery H/O cystoscopy H/O partial cystectomy H/O Spinal surgery History of hysterectomy History of partial gastrectomy Family History Other CAD (coronary artery disease) Diabetes Hypertension Social History Alcohol intake: never Household members: spouse Housing: House Marital status: Current occupational status: disabled Female Reproductive History: Date of last menstrual period: 01/17/21 Physical Exam Narrative: EXAM NARRATIVE: Head: Atraumatic Eyes: PERRL, conjunctiva without injection ENT: Mucous membrane moist NECK: Supple, ROM limited by quadraplegia LUNGS: LCTAB, no crackles/rhonchi CV: RRR ABDOMEN: Soft, +moderate RLQ TTP. NO guarding rebound, guarding, rigidity. No CVA tenderness to percussion. Neg Lemos/Neg McBurney's point tenderness, no suprabupic tenderness to palpation. EXTREMITY: Normal ROM SKIN: No rash or erythema NEURO: Awake and alert, diffuse weakness, only able to move hands L >R and turn head 15 degrees in both reaction PSYCH: Normal mood and affect Course Vital Signs: Vital signs: Vital Signs Temperature 98.0 F 07/25/21 22:30 Pulse Rate 75 07/25/21 22:30 Respiratory Rate 18 07/26/21 00:30 Blood Pressure 77/50 07/25/21 22:30 Pulse Oximetry 97 07/26/21 00:30 MDM - General Adult MDM Narrative: Medical decision making narrative: 46-year-old female history of incomplete quadriplegia who presents the emergency room for evaluation of 7 days of RLQ pain and abdominal distension x 1 month. On exam, patient is focally tender in the RLQ. No guarding or rebound tenderness. Rest of vitals within normal limit. Patient chronically has low blood pressure per baseline with history of spinal cord injury. Will defer exam given not sexually active currently. Laboratory work-up showed white count 10.1. UA is consistent with UTI. CT abdomen pelvis showed ileus, right side greater than left hydronephrosis, and decreased stool burden. On UA, patient was noted to have 2+ blood however there is no visualization of stone on CT abdomen pelvis. At this present time, do not suspect that hydronephrosis secondary to impaction. Most likely the hydronephrosis secondary to postoperative changes. Given findings, do not suspect any acute infection. Patient is given a prescription for Keflex for UTI, MiraLAX and docusate for constipation and follow-up with primary care provider. Patient is aware that she needs to follow-up with Dr. Culp for bilateral hydronephrosis. Disposition: Lab Data: Labs: Lab Results 07/25/21 07/25/21 07/26/21 23:30 23:30 00:45 WBC 10.1 10^3/uL H 10 ^3/uL (4.0-10.0) RBC 3.76 10^6/uL L 10 ^6/uL (4.1-5.3) Hgb 10.8 g/dL L g/dL (11.5-15.3) Hct 34.6 % L % (37.0-47.0) MCV 92.0 fl fl (81-99) MCH 28.7 pg pg (28.0-34.0) MCHC 31.2 g/dL g/dL (30.0-36.0) RDW 14.2 % % (12.1-15.1) Plt Count 306 10^3/cmm 10^3 /cmm (130-400) MPV 9.8 fL fL (7.4-10.4) Neut % (Auto) 66.8 % % Lymph % (Auto) 21.3 % % [place] % (Auto) 9.5 % % Eos % (Auto) 1.6 % % Baso % (Auto) 0.5 % % Neut # (Auto) 6.72 10^3/uL 10^3 /uL (1.8-7.7) Lymph # (Auto) 2.1 10^3/uL 10^3/ uL (0.8-4.8) [place] # (Auto) 1.0 10^3/uL H 10^ 3/uL (0.2-0.9) Eos # (Auto) 0.2 10^3/uL 10^3/ uL (0.0-0.8) Baso # (Auto) 0.1 10^3/uL 10^3/ uL (0.0-0.1) Nucleated RBC % (a uto) 0 % % Nucleated RBCs # 0.0 /100WBC /100W BC Sodium 136 mmol/L mmol/L (136-145) Potassium 3.6 mmol/L mmol/L (3.5-5.1) Chloride 101 mmol/L mmol/L (98-107) Carbon Dioxide 23 mmol/L mmol/L (22-29) Anion Gap 15.6 (5-19) BUN 12 mg/dL mg/dL (6-20) Creatinine 0.7 mg/dL mg/dL (0.5-0.9) GFR Calculation 90.1 mL/min mL/mi n (90-130) Glucose 169 mg/dL H mg/dL (65-115) Calculated Osmolal ity 286 mOsm/kg mOsm/ kg (285-295) Calcium 8.6 mg/dL mg/dL (8.5-10.5) Total Bilirubin 0.2 mg/dL mg/dL (0.15-1.2) AST 14 U/L U/L (0-32) ALT 21 U/L U/L (0-33) Alkaline Phosphata se 82 IU/L IU/L (35-105) Total Protein 7.4 g/dL g/dL (6.6-8.7) Albumin 3.4 g/dL L g/dL (3.5-5.2) Globulin 4.0 g/dL g/dL (1.3-4.6) Lipase 19 U/L U/L (13-60) Urine Color Urine Appearance Urine pH Ur Specific Gravit y Urine Protein Urine Glucose (UA) Urine Ketones Urine Blood Urine Nitrate Urine Bilirubin Urine Urobilinogen Ur Leukocyte Maggi ase Urine RBC Urine WBC Ur Squamous Epith Cells Ur Transition Epit h Cell Amorphous Sediment Urine Bacteria Urine HCG, Qual Negative (Negative) 07/26/21 00:45 WBC RBC Hgb Hct MCV MCH MCHC RDW Plt Count MPV Neut % (Auto) Lymph % (Auto) [place] % (Auto) Eos % (Auto) Baso % (Auto) Neut # (Auto) Lymph # (Auto) [place] # (Auto) Eos # (Auto) Baso # (Auto) Nucleated RBC % (a uto) Nucleated RBCs # Sodium Potassium Chloride Carbon Dioxide Anion Gap BUN Creatinine GFR Calculation Glucose Calculated Osmolal ity Calcium Total Bilirubin AST ALT Alkaline Phosphata se Total Protein Albumin Globulin Lipase Urine Color Yellow (Yellow) Urine Appearance Hazy A (CLEAR) Urine pH 7 (5-7) Ur Specific Gravit y 1.000 L (1.005-1.030) Urine Protein Neg (Negative) Urine Glucose (UA) Norm (Normal) Urine Ketones Negative (Negative) Urine Blood 2+ H (Negative) Urine Nitrate Negative (Negative) Urine Bilirubin Neg (Negative) Urine Urobilinogen Norm mg/dL mg/dL (Negative) Ur Leukocyte Maggi ase 2+ H (Negative) Urine RBC 0-4 /hpf H /hpf (0-2) Urine WBC >100 /hpf H /hpf (0-5) Ur Squamous Epith Cells 5-10 /hpf H /hpf (0-5) Ur Transition Epit h Cell 0-4 /hpf /hpf Amorphous Sediment Not Reportable Urine Bacteria 4+ /hpf H /hpf (NONE) Urine HCG, Qual Imaging Data^: Other Imaging: Radiologist's impression: [facility] [place], [place] [address]QB Scan ReportSigned Patient: Danielle Morales #: [id number]: [id number]#:[id number]/Sex: 46 / FADM Date: 07/25/21Loc: ERRoom/Bed:Attending Dr: Ordering Provider/Ordering MD: Alf Lopez MD Date of Service: 07/26/21 Procedure(s): CT abdomen pelvis w con* [id number] Accession Number(s): [id number] Report Number: [id number] PROCEDURE INFORMATION: Exam: CT Abdomen And Pelvis With Contrast Exam date and time: 07/26/2021 12:15 AM Age: 46 years old Clinical indication: Abdominal pain; Generalized; Prior surgery; Surgery type: Hyst, bladder, spine; Additional info: Rule out infection TECHNIQUE: Imaging protocol: Computed tomography of the abdomen and pelvis with contrast. Radiation optimization: All CT scans at this facility use at least one of these dose optimization techniques: automated exposure control; mA and/or kV adjustment per patient size (includes targeted exams where dose is matched to clinical indication); or iterative reconstruction. Contrast material: OMNI 300; Contrast volume: 95 ml; Contrast route: INTRAVENOUS (IV); COMPARISON: CT abdomen pelvis w con* [id number] 07/13/2021 1:22 AM RADIATION DOSE METRICS: Total DLP (mGy-cm): 2053.31 FINDINGS: Lungs: There are strandy opacity seen in the lung bases bilaterally likely representing atelectasis versus pleural or parenchymal scarring. Liver: Normal. No mass. Gallbladder and bile ducts: Normal. No calcified stones. No ductal dilation. Pancreas: Normal. No ductal dilation. Spleen: Normal. No splenomegaly. Adrenal glands: There is a 1.6 x 1.8 x 1 1 cm left adrenal nodularity present. Kidneys and ureters: There is a prominent 6 x 9 mm nonobstructing renal calculus seen on the right. There is bilateral hydronephrosis and mild hydroureter seen, right more prominent than left without evidence of obstructing ureteral calculi. Some subtle hyperdense material is seen in the dependent portion the renal pelvis sees bilaterally possibly representing some debris or tiny nonobstructing calculi. Stomach and bowel: There are nondilated loops of small bowel containing fluid and a few air-fluid levels, findings could represent ileus. Moderate stool is seen within the descending and sigmoid colon. Appendix: The appendix is visualized and is normal in configuration. Intraperitoneal space: Unremarkable. No free air. No significant fluid collection. Vasculature: Unremarkable. No abdominal aortic aneurysm. Lymph nodes: Unremarkable. No enlarged lymph nodes. Urinary bladder: There is mild bladder wall thickening seen anteriorly likely representing postoperative scarring. Reproductive: Status post hysterectomy. There are 2 hypoattenuation cystic lesions seen associated with the right ovary. The largest cyst measures 2.6 x 3.0 x 4.2 cm. These likely represent benign or functional ovarian cysts. Bones/joints: Unremarkable. No acute fracture. Soft tissues: Unremarkable. CT/CT abdomen pelvis w con* [id number] IMPRESSION: 1. There is bilateral hydronephrosis and hydroureter seen, right more prominent than left without evidence of obstructing ureteral calculi or masses. 2. Mild irregular bladder wall thickening seen anteriorly likely representing postoperative scarring. 3. Nondilated small bowel loops containing fluid and air fluid levels may represent ileus. 4. Moderate stool is seen in the descending and sigmoid colon. 5. Normal appendix 6. Two cystic masses within the right ovary, the largest measuring up to 4.2 cm compatible with benign or functional ovarian cysts. No further workup needed. 7. Nonobstructing 6 x 9 mm calculus in the lower pole of the right kidney. Radiation Dose CTDIVOL = (mGy): DLP = 2054.31 (mGy-cm) Dictated By:Renny Dey MDSigned By:Renny Dey MDSigned Date/Time:07/26/21157DD/ 5 Discharge Plan Discharge Patient Disposition: Home Clinical Impression: Abdominal pain, Abdominal distension, Ileus, Hydronephrosis, UTI (urinary tract infection), Constipation Condition: Stable Prescriptions: New cephalexin 500 mg capsule 500 mg PO BID 7 Days Qty: 14 RF: 0 acetaminophen 500 mg tablet 500 mg PO Q6H PRN (Reason: pain) 10 Days Qty: 40 RF: 0 Miralax 17 gram/dose powder 8.5 g PO DAILY PRN (Reason: constipation) 28 Days Qty: 238 RF: 0 docusate calcium 240 mg capsule 240 mg PO BID PRN (Reason: constipation) 14 Days Qty: 28 RF: 0 No Action ascorbic acid (vitamin C) [Vitamin C] 1,000 mg Tablet 1,000 mg PO BID@08,20 RF: 0 acetaminophen [Tylenol] 325 mg Tablet 650 mg PO Q6H PRN (Reason: Pain) RF: 0 gentian bucky 1 % Solution 1 applic TOPICAL DAILY@08 RF: 0 methenamine hippurate 1 gram Tablet 1 g PO BID@08,20 RF: 0 magnesium hydroxide [Milk of Magnesia] 400 mg/5 mL Suspension 30 ml PO DAILY PRN (Reason: Constipation) RF: 0 pantoprazole 40 mg Tablet,Delayed Release (Dr/Ec) 40 mg PO DAILY RF: 0 nystatin 100,000 unit/gram Cream See Rx Instructions .ROUTE .COMPLEX RF: 0 Fleet Enema 19-7 gram/118 mL Enema 118 ml ME DAILY PRN (Reason: Constipation) RF: 0 gabapentin 100 mg Capsule 100 mg PO TID@08,14,20 RF: 0 docusate sodium 100 mg Tablet 100 mg PO BID@08,20 RF: 0 lactulose 10 gram/15 mL (15 mL) Solution 15 ml PO BID@08,20 RF: 0 sennosides-docusate sodium [Senna Plus] 8.6-50 mg Tablet 2 tab PO BID@08,20 RF: 0 sertraline [Zoloft] 25 mg Tablet 50 mg PO DAILY@08 RF: 0 bisacodyl [Dulcolax (bisacodyl)] 5 mg Tablet,Delayed Release (Dr/Ec) 10 mg PO DAILY PRN (Reason: Constipation) RF: 0 metoclopramide HCl 10 mg tablet 10 mg PO Q6H PRN (Reason: nausea and vomiting) Qty: 20 RF: 0 Augmentin 875-125 mg tablet 1 tab PO BID Qty: 14 RF: 0 ondansetron HCl [Zofran] 4 mg Tablet 4 mg PO Q6H PRN (Reason: Nausea And Vomiting) RF: 0 bisacodyl [Dulcolax (bisacodyl)] 10 mg Suppository 10 mg ME DAILY PRN (Reason: Constipation) RF: 0 tizanidine 4 mg Tablet 4 mg PO TID@08,14,20 PRN (Reason: unknown) RF: 0 Betadine Swabsticks 10 % Swab 1 applic topical DAILY@08 RF: 0 fentanyl 50 mcg/hr Patch 72 Hour 1 patch TRANSDERMAL Q72H Qty: 5 RF: 0 morphine concentrate 100 mg/5 mL (20 mg/mL) solution 5 mg PO Q4H PRN (Reason: Pain) Qty: 30 RF: 0 Xanax 0.25 mg Tablet 0.25 mg PO TID PRN (Reason: Anxiety) Qty: 10 RF: 0 Discharge Orders: Discharge ED (Routine); Ordered 07/26/21 Ordered By: Alf Lopez Referrals: Sedrick Cruz MD [Primary Care Provider] - Patient Instructions: Abdominal Pain (ED), Opioid Safety Activity Restrictions/Additional Instructions: Please take your medicine as instructed. Have constipation today. Please take your medicine for constipation. You also have a urinary tract infection. Please take your antibiotics for urinary tract infection. You also have large kidneys. Please follow-up Dr. Culp for management of your large kidneys. Our caser up will call you in the next few days for management of the large kidneys. Please contact the emergency room for worsening abdominal pain, fever/chills, diarrhea, hydration, nausea/vomiting, or any new or concerning complaints. Coding Level of Care Code ED Pulmonary Function Technician for Julien Magaña
[2021-07-26 00:30] VITALS: RESP 18; O2SAT 97
[2021-07-26] MEDS: HYDROmorphone 1 mg/mL INJ 1 mL 0.5 MG IVP (00:30)
[2021-07-26] MEDS: iohexol 300 mg/mL 100 mL Btl IV (00:33)
[2021-07-26 00:37] LABS: Alanine Aminotransferase 21 U/L (0-33); Albumin Level 3.4 g/dL (3.5-5.2); Alkaline Phosphatase 82 IU/L (35-105); Anion Gap 15.6 (5-19); Aspartate Amino Transferase 14 U/L (0-32); Blood Urea Nitrogen 12 mg/dL (6-20); Calcium 8.6 mg/dL (8.5-10.5); Carbon Dioxide 23 mmol/L (22-29); Chloride 101 mmol/L (98-107); Glomerular Filtration Rate 90.1 mL/min (90-130); Glucose 169 mg/dL (65-115); Lipase 19 U/L (13-60); Osmolality Calculated 286 mOsm/kg (285-295); Potassium 3.6 mmol/L (3.5-5.1); Sodium 136 mmol/L (136-145); Total Bilirubin 0.2 mg/dL (0.15-1.2); Total Protein 7.4 g/dL (6.6-8.7)
[2021-07-26 01:11] LABS: Add Urine Culture? Yes; Add Urine Microscopic? YES; Bacteria Urine 4+ /hpf; Bilirubin Urine Neg (Negative); Blood Urine 2+ (Negative); Glucose Urine UA Norm (Normal); Ketones Urine Negative (Negative); Leukocyte Esterase Urine 2+ (Negative); Nitrate Urine Negative (Negative); Protein Urine Neg (Negative); RBC Urine 0-4 /hpf (0-2); Transitional Epi Cells Urine 0-4 /hpf; Urine Appearance Hazy (CLEAR); Urine Color Yellow (Yellow); Urobilinogen Urine Norm (Negative); WBC Urine >100 /hpf (0-5); pH Urine 7 (5-7)
[2021-07-26 02:58] VITALS: BP 89/54; PULSE 74; RESP 14; O2SAT 99
--- NOTE | 2021-07-26 11:41 | DCPLANNER ---
non destructive evaluation manager had message to schedule a followup appointment for patient with Dr. Culp. non destructive evaluation manager called the office of Dr. Culp, spoke with Francine, gave clinic patients information. non destructive evaluation manager was told that patients information would be printed and reviewed. Clinic will call patient with appointment information.
--- NOTE | 2021-08-01 13:27 | DCPLANNER ---
Addendum entered by Princess Garcia 11/15/21 15:05: Patient had a follow up appointment scheduled for 08.06.[address] Culp - patient did attend appointment. Original Note: Patient has a follow up appointment scheduled for Friday, August 06, 2021 at 11:[address] Culp. Clinic will call patient with appointment information.
== END 2021-07-26 05:25 | disposition home or self-care (01) ==
PROVIDERS: Emergency Provider Emergency Medicine; PCP Internal Medicine
DX: K59.00 Constipation, unspecified (principal); N39.0 Urinary tract infection, site not specified; R14.0 Abdominal distension (gaseous); K56.7 Ileus, unspecified; N13.30 Unspecified hydronephrosis
CPT/HCPCS: 74177; 80053; 81001; 81025; 83690; 85025; 87077; 87086; 87186; 96374; 99283; J1170; Q9967

== ENCOUNTER 2021-08-17 16:06 | Emergency (ER) | payer MEDICARE, MEDICAID, SELFPAY ==
[2021-08-17 16:12] VITALS: BP 100/73; PULSE 65; RESP 16; TEMP 36.5; O2SAT 92; BMI 26.4
[2021-08-17 16:21] VITALS: BP 100/73; PULSE 66; RESP 18; TEMP 36.5; O2SAT 93
--- NOTE | 2021-08-17 16:33 | CTR_ITS ---
PROCEDURE INFORMATION: Exam: CT Abdomen And Pelvis With Contrast Exam date and time: 08/17/2021 4:33 PM Age: 46 years old Clinical indication: Abdominal tenderness; Additional info: Rule out infection TECHNIQUE: Imaging protocol: Computed tomography of the abdomen and pelvis with contrast. Radiation optimization: All CT scans at this facility use at least one of these dose optimization techniques: automated exposure control; mA and/or kV adjustment per patient size (includes targeted exams where dose is matched to clinical indication); or iterative reconstruction. Contrast material: OMNI 300; Contrast volume: 95 ml; Contrast route: INTRAVENOUS (IV); COMPARISON: CT abdomen pelvis w con* [id number] 07/26/2021 12:27 AM , 12/18/2019 RADIATION DOSE METRICS: Total DLP (mGy-cm): 1846.97 FINDINGS: Lungs: Dependent atelectasis in both lower lobes. Liver: Normal. No mass. Gallbladder and bile ducts: Normal. No calcified stones. No ductal dilation. Pancreas: Normal. No ductal dilation. Spleen: Normal. No splenomegaly. Adrenal glands: Stable 1.5 cm nodule in the left adrenal gland, Hounsfield units measuring 70. The right adrenal is normal. Kidneys and ureters: Moderate-severe chronic bilateral hydronephrosis appears to have progressed. 10 mm calculus in the inferior right kidney. Columning of the bilateral ureters to the urinary bladder. Mild enhancement of the urothelium of the bilateral renal collecting systems. Stomach and bowel: Sutures and clips along the left stomach. Large amount of stool in the distal colon and proximal rectum, measuring up to 6.9 cm diameter. The small bowel is unremarkable. No wall thickening or obstruction. Appendix: The appendix is visualized and is normal. Intraperitoneal space: Unremarkable. No free air. No significant fluid collection. Vasculature: Unremarkable. No abdominal aortic aneurysm. Lymph nodes: Unremarkable. No enlarged lymph nodes. Urinary bladder: See Kidneys and ureters finding. Reproductive: The uterus and right ovary are absent. Normal retained left ovary. Bones/joints: Severe degenerative changes of the bilateral hip joints. Mild degenerative changes of the spine. No acute fracture. Soft tissues: Mild soft tissue edema in the flank and hip regions. Other findings: Anterior laparotomy scar. CT/CT abdomen pelvis w con* [id number] IMPRESSION: 1. Chronic moderate to severe bilateral hydronephrosis has progressed. No ureteral calculus identified. 2. Mild urothelial enhancement of the bilateral renal collecting system could indicate mild infection. Clinical correlation recommended. 3. 10 mm right renal calculus. 4. Stool burden in the distal colon and proximal rectum likely indicates constipation. 5. Stable 1.5 cm nodule in the left adrenal gland. 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 Radiation Dose CTDIVOL = (mGy): DLP = 1846.97 (mGy-cm)
--- NOTE | 2021-08-17 16:36 | ED_ITS ---
HPI - General Adult General: Chief complaint: Abdominal Pain Stated complaint: ABD PAIN Time Seen by Provider: 08/17/21 16:09 History of Present Illness: HPI narrative: Patient is a 46-year-old female with history of paraplegia, neurogenic bladder, previous ex lap for bowel perforation presenting to the emergency room for 1 week of nausea/vomiting and right-sided abdominal pain. Patient states that symptoms is worsening over the last few days. Reports significant nausea vomiting after tolerating p.o. Patient denies any change in bowel pattern, melena/hematochezia. Patient also reports symptoms of dysuria at this time. No complaints of chest pain, s hortness of breath, or palpitation. Onset:1 week ago Duration:1 week Location:home Severity:moderate Review of Systems Narrative: Constitutional: No fever, no chills. HEENT: No vision changes CV: No chest pain, no palpitations PULM: no cough, no dyspnea. GI: R sided abdominal pain, +N/+V/-D. : +dysuria MSKEL: No muscle pain SKIN: No new rashes, no lesions. NEURO: No headache, no focal weakness. HEME: No visible bruises PSYCH: Normal mood PFSH ED PFSH: Medical History Chronic indwelling Dumont catheter Hydronephrosis Neurogenic bladder Perforated abdominal viscus Condition resolved Post-traumatic quadriplegia Recurrent sepsis due to urinary tract infection Surgical History H/O bladder repair surgery H/O cystoscopy H/O partial cystectomy H/O Spinal surgery History of hysterectomy History of partial gastrectomy Family History Other CAD (coronary artery disease) Diabetes Hypertension Social History Smoking and tobacco status: former smoker Alcohol intake: never Household members: spouse Housing: House Marital status: Current occupational status: disabled Female Reproductive History: Date of last menstrual period: 01/17/21 : 3 Physical Exam Narrative: EXAM NARRATIVE: Head: Atraumatic Eyes: PERRL, conjunctiva without injection ENT: Mucous membrane moist NECK: Supple, ROM intact LUNGS: LCTAB, no crackles/rhonchi CV: RRR ABDOMEN: Soft, focal TTP in the RLQ and RUQ . NO guarding rebound, guarding, rigidity. No CVA tenderness to percussion. Neg Lemos/Neg McBurney's point tenderness, no suprabupic tenderness to palpation. EXTREMITY: Normal ROM SKIN: No rash or erythema NEURO: Awake and alert, no focal motor deficits PSYCH: Normal mood and affect Course Vital Signs: Vital signs: Vital Signs Temperature 97.7 F 08/17/21 16:21 Pulse Rate 102 H 08/17/21 20:43 Respiratory Rate 16 08/17/21 20:43 Blood Pressure 91/62 08/17/21 20:43 Pulse Oximetry 98 08/17/21 20:43 MDM - General Adult MDM Narrative: Medical decision making narrative: 46-year-old female presented to emergency room with worsening right side abdominal pain was 1 week with nausea vomiting. On exam, HDS with mild R sided tenderness to palpation. No CVA tenderness b/l Labs showed white count of 10.2. Creatinine noted to be 1.[address] abdomen pelvis showed worsening mild to moderate hydronephrosis bilaterally without findings of stones. A Dumont was placed today with return of 300 cc of concentrated urine. UA possible for UTI. Given patient cannot tolerate p.o., will prescribe Augmentin suspension at this time for UTI. Given concerns for decreased urinary output, decision was made to have patient follow with Dr. Culp for further management of Dumont and hydronephrosis. Patient received IV ceftriaxone. I have given patient follow up with our bilingual patient support caseworker to be seen by our outpatient Urologist Dr. Culp for management of hydronephrosis, post renal obstruction, and mild YEN Patient aware of a call from our bilingual patient support caseworker to [facility] for appointment(s) and verbalizes understanding of the importance of following up. Rx augmentin suspension BID x 7 days (since patient cannot tolerate tablets) for UTI Disposition: Discharge. Patient counseled regarding diagnostic impression, treatment plan. Patient given ED strict return precautions to return for continuation, worsening, or development of new symptoms. Instructed to f/u w/ PCP and Dr. Culp regarding symptoms today. Patient verbalized understanding. Lab Data: Labs: Lab Results 08/17/21 08/17/21 08/17/21 16:55 16:55 16:55 WBC 10.2 10^3/uL H 10 ^3/uL (4.0-10.0) RBC 3.93 10^6/uL L 10 ^6/uL (4.1-5.3) Hgb 11.1 g/dL L g/dL (11.5-15.3) Hct 36.0 % L % (37.0-47.0) MCV 91.6 fl fl (81-99) MCH 28.2 pg pg (28.0-34.0) MCHC 30.8 g/dL g/dL (30.0-36.0) RDW 13.6 % % (12.1-15.1) Plt Count 458 10^3/cmm H 10 ^3/cmm (130-400) MPV 9.2 fL fL (7.4-10.4) Neut % (Auto) 78.6 % % Lymph % (Auto) 11.8 % % Appling % (Auto) 6.9 % % Eos % (Auto) 1.8 % % Baso % (Auto) 0.3 % % Neut # (Auto) 8.02 10^3/uL H 10 ^3/uL (1.8-7.7) Lymph # (Auto) 1.2 10^3/uL 10^3/ uL (0.8-4.8) Appling # (Auto) 0.7 10^3/uL 10^3/ uL (0.2-0.9) Eos # (Auto) 0.2 10^3/uL 10^3/ uL (0.0-0.8) Baso # (Auto) 0.0 10^3/uL 10^3/ uL (0.0-0.1) Nucleated RBC % (a uto) 0 % % Nucleated RBCs # 0.0 /100WBC /100W BC Sodium 137 mmol/L mmol/L (136-145) Potassium 4.3 mmol/L mmol/L (3.5-5.1) Chloride 101 mmol/L mmol/L (98-107) Carbon Dioxide 21 mmol/L L mmol/ L (22-29) Anion Gap 19.3 H (5-19) BUN 25 mg/dL H mg/dL (6-20) Creatinine 1.4 mg/dL H mg/dL (0.5-0.9) GFR Calculation 40.5 mL/min L mL/ min (90-130) Glucose 160 mg/dL H mg/dL (65-115) Calculated Osmolal ity 292 mOsm/kg mOsm/ kg (285-295) Lactate 0.9 mmol/L mmol/L (0.5-2.2) Calcium 9.2 mg/dL mg/dL (8.5-10.5) Total Bilirubin 0.2 mg/dL mg/dL (0.15-1.2) AST 9 U/L U/L (0-32) ALT 9 U/L U/L (0-33) Alkaline Phosphata se 117 IU/L H IU/L (35-105) Total Protein 8.5 g/dL g/dL (6.6-8.7) Albumin 3.8 g/dL g/dL (3.5-5.2) Globulin 4.7 g/dL H g/dL (1.3-4.6) Lipase 15 U/L U/L (13-60) Urine Color Urine Appearance Urine pH Ur Specific Gravit y Urine Protein Urine Glucose (UA) Urine Ketones Urine Blood Urine Nitrate Urine Bilirubin Prot Sulfosalicyli c Acd Urine Urobilinogen Ur Leukocyte Maggi ase Urine RBC Urine WBC Ur Squamous Epith Cells Amorphous Sediment Urine Bacteria Urine Mucus Urine HCG, Qual 08/17/21 08/17/21 08/17/21 17:23 17:23 18:41 WBC RBC Hgb Hct MCV MCH MCHC RDW Plt Count MPV Neut % (Auto) Lymph % (Auto) Appling % (Auto) Eos % (Auto) Baso % (Auto) Neut # (Auto) Lymph # (Auto) Appling # (Auto) Eos # (Auto) Baso # (Auto) Nucleated RBC % (a uto) Nucleated RBCs # Sodium Potassium Chloride Carbon Dioxide Anion Gap BUN Creatinine GFR Calculation Glucose Calculated Osmolal ity Lactate Calcium Total Bilirubin AST ALT Alkaline Phosphata se Total Protein Albumin Globulin Lipase Urine Color Yellow Yellow (Yellow) (Yellow) Urine Appearance Cloudy Cloudy (CLEAR) (CLEAR) Urine pH 8 H 8 H (5-7) (5-7) Ur Specific Gravit y 1.005 1.010 (1.005-1.030) (1.005-1.030) Urine Protein Neg Trace (Negative) (Negative) Urine Glucose (UA) Norm Norm (Normal) (Normal) Urine Ketones Negative Negative (Negative) (Negative) Urine Blood 2+ H 3+ H (Negative) (Negative) Urine Nitrate Negative Negative (Negative) (Negative) Urine Bilirubin Neg Neg (Negative) (Negative) Prot Sulfosalicyli c Acd Negative Negative (Negative) (Negative) Urine Urobilinogen Norm mg/dL mg/dL Norm mg/dL mg/dL (Negative) (Negative) Ur Leukocyte Maggi ase 2+ H 2+ H (Negative) (Negative) Urine RBC 10-15 /hpf H /hpf 10-15 /hpf H /hpf (0-2) (0-2) Urine WBC 55-80 /hpf H /hpf 55-80 /hpf H /hpf (0-5) (0-5) Ur Squamous Epith Cells 5-10 /hpf H /hpf 0-4 /hpf H /hpf (0-5) (0-5) Amorphous Sediment 2+ /hpf /hpf 2+ /hpf /hpf Urine Bacteria 4+ /hpf H /hpf 4+ /hpf H /hpf (NONE) (NONE) Urine Mucus 4+ /hpf /hpf 4+ /hpf /hpf Urine HCG, Qual Negative (Negative) Imaging Data^: Other Imaging: Radiologist's impression: [address] [id number] Scan ReportSigned Patient: Danielle Morales #: [id number]: [id number]#:[id number]/Sex: 46 / FADM Date: 08/17/21Loc: ERRoom/Bed:Attending Dr: Ordering Provider/Ordering MD: Alf Lopez MD Date of Service: 08/17/21 Procedure(s): CT abdomen pelvis w con* [id number] Accession Number(s): [id number] Report Number: [id number] PROCEDURE INFORMATION: Exam: CT Abdomen And Pelvis With Contrast Exam date and time: 08/17/2021 4:33 PM Age: 46 years old Clinical indication: Abdominal tenderness; Additional info: Rule out infection TECHNIQUE: Imaging protocol: Computed tomography of the abdomen and pelvis with contrast. Radiation optimization: All CT scans at this facility use at least one of these dose optimization techniques: automated exposure control; mA and/or kV adjustment per patient size (includes targeted exams where dose is matched to clinical indication); or iterative reconstruction. Contrast material: OMNI 300; Contrast volume: 95 ml; Contrast route: INTRAVENOUS (IV); COMPARISON: CT abdomen pelvis w con* [id number] 07/26/2021 12:27 AM , 12/18/2019 RADIATION DOSE METRICS: Total DLP (mGy-cm): 1846.97 FINDINGS: Lungs: Dependent atelectasis in both lower lobes. Liver: Normal. No mass. Gallbladder and bile ducts: Normal. No calcified stones. No ductal dilation. Pancreas: Normal. No ductal dilation. Spleen: Normal. No splenomegaly. Adrenal glands: Stable 1.5 cm nodule in the left adrenal gland, Hounsfield units measuring 70. The right adrenal is normal. Kidneys and ureters: Moderate-severe chronic bilateral hydronephrosis appears to have progressed. 10 mm calculus in the inferior right kidney. Columning of the bilateral ureters to the urinary bladder. Mild enhancement of the urothelium of the bilateral renal collecting systems. Stomach and bowel: Sutures and clips along the left stomach. Large amount of stool in the distal colon and proximal rectum, measuring up to 6.9 cm diameter. The small bowel is unremarkable. No wall thickening or obstruction. Appendix: The appendix is visualized and is normal. Intraperitoneal space: Unremarkable. No free air. No significant fluid collection. Vasculature: Unremarkable. No abdominal aortic aneurysm. Lymph nodes: Unremarkable. No enlarged lymph nodes. Urinary bladder: See Kidneys and ureters finding. Reproductive: The uterus and right ovary are absent. Normal retained left ovary. Bones/joints: Severe degenerative changes of the bilateral hip joints. Mild degenerative changes of the spine. No acute fracture. Soft tissues: Mild soft tissue edema in the flank and hip regions. Other findings: Anterior laparotomy scar. CT/CT abdomen pelvis w con* [id number] IMPRESSION: 1. Chronic moderate to severe bilateral hydronephrosis has progressed. No ureteral calculus identified. 2. Mild urothelial enhancement of the bilateral renal collecting system could indicate mild infection. Clinical correlation recommended. 3. 10 mm right renal calculus. 4. Stool burden in the distal colon and proximal rectum likely indicates constipation. 5. Stable 1.5 cm nodule in the left adrenal gland. 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 Radiation Dose CTDIVOL = (mGy): DLP = 1846.97 (mGy-cm) Dictated By:Richelle Simon By:Richelle Simon Date/Time:08/17/21 1812DD/ 1633 Discharge Plan Discharge Patient Disposition: Home Clinical Impression: Abdominal pain, Hydronephrosis, UTI (urinary tract infection), YEN (acute kidne y injury) Condition: Stable Prescriptions: New Augmentin ES-600 600-42.9 mg/5 mL suspension for reconstitution 7.5 ml PO Q12H 10 Days Qty: 150 RF: 0 No Action ascorbic acid (vitamin C) [Vitamin C] 1,000 mg Tablet 1,000 mg PO BID@08,20 RF: 0 gentian bucky 1 % Solution 1 applic TOPICAL DAILY@08 RF: 0 methenamine hippurate 1 gram Tablet 1 g PO BID@,20 RF: 0 magnesium hydroxide [Milk of Magnesia] 400 mg/5 mL Suspension 30 ml PO DAILY PRN (Reason: Constipation) RF: 0 pantoprazole 40 mg Tablet,Delayed Release (Dr/Ec) 40 mg PO DAILY RF: 0 nystatin 100,000 unit/gram Cream See Rx Instructions .ROUTE .COMPLEX RF: 0 Fleet Enema 19-7 gram/118 mL Enema 118 ml SD DAILY PRN (Reason: Constipation) RF: 0 gabapentin 100 mg Capsule 100 mg PO TID@,,20 RF: 0 docusate sodium 100 mg Tablet 100 mg PO BID@,20 RF: 0 lactulose 10 gram/15 mL (15 mL) Solution 15 ml PO BID@,20 RF: 0 sennosides-docusate sodium [Senna Plus] 8.6-50 mg Tablet 2 tab PO BID@,20 RF: 0 sertraline [Zoloft] 25 mg Tablet 50 mg PO DAILY@08 RF: 0 bisacodyl [Dulcolax (bisacodyl)] 5 mg Tablet,Delayed Release (Dr/Ec) 10 mg PO DAILY PRN (Reason: Constipation) RF: 0 metoclopramide HCl 10 mg tablet 10 mg PO Q6H PRN (Reason: nausea and vomiting) Qty: 20 RF: 0 pravastatin 40 mg Tablet 40 mg PO BEDTIME RF: 0 naloxone 0.4 mg/mL Solution 0.4 mg IM Q2M PRN (Reason: overdose) RF: 0 acetaminophen 500 mg Tablet 500 mg PO Q6H PRN (Reason: Pain) RF: 0 simethicone 80 mg Tablet,Chewable 80 mg PO .AFTER MEALS RF: 0 Miralax 17 gram/dose powder 17 g PO DAILY PRN (Reason: constipation) RF: 0 ondansetron HCl [Zofran] 4 mg Tablet 4 mg PO Q6H PRN (Reason: Nausea And Vomiting) RF: 0 bisacodyl [Dulcolax (bisacodyl)] 10 mg Suppository 10 mg SD DAILY PRN (Reason: Constipation) RF: 0 tizanidine 4 mg Tablet 4 mg PO TID@08,14,20 PRN (Reason: unknown) RF: 0 fentanyl 50 mcg/hr Patch 72 Hour 1 patch TRANSDERMAL Q72H Qty: 5 RF: 0 morphine concentrate 100 mg/5 mL (20 mg/mL) solution 5 mg PO Q4H PRN (Reason: Pain) Qty: 30 RF: 0 alprazolam [Xanax] 0.25 mg Tablet 0.25 mg PO TID PRN (Reason: Anxiety) Qty: 10 RF: 0 Discharge Orders: Discharge ED (Routine); Ordered 08/17/21 Ordered By: Alf Lopez Referrals: Sedrick Cruz MD [Primary Care Provider] - Discharge Diet: Advance as tolerated Discharge Activity: Resume usual activity Patient Instructions: Abdominal Pain (ED) Activity Restrictions/Additional Instructions: Please come back to the emergency room if having worsening pain, fever/chills, inability to tolerate p.o., any new or concerning complaints. Coding Level of Care Code ED Movie Theater Manager for Julien Magaña
[2021-08-17 17:04] LABS: Basophils % 0.3 %; Eosinophils # 0.2 10^3/uL (0.0-0.8); Eosinophils % 1.8 %; Hemoglobin 11.1 g/dL (11.5-15.3); Lymphocytes # 1.2 10^3/uL (0.8-4.8); Lymphocytes % 11.8 %; Mean Corpuscular HGB Conc 30.8 g/dL (30.0-36.0); Mean Corpuscular Hemoglobin 28.2 pg (28.0-34.0); Mean Corpuscular Volume 91.6 fl (81-99); Mean Platelet Volume 9.2 fL (7.4-10.4); Monocytes # 0.7 10^3/uL (0.2-0.9); Monocytes % 6.9 %; Neutrophils # 8.02 10^3/uL (1.8-7.7); Neutrophils % 78.6 %; Nucleated Red Blood Cells % 0 %; Platelet Count 458 10^3/cmm (130-400); Red Blood Count 3.93 10^6/uL (4.1-5.3); Red Cell Distribution Width 13.6 % (12.1-15.1); White Blood Count 10.2 10^3/uL (4.0-10.0)
[2021-08-17] MEDS: iohexol 300 mg/mL 100 mL Btl IV (17:17)
[2021-08-17] MEDS: sodium chloride 0.9% 1,000 ML 999 ML IV (17:18)
[2021-08-17] MEDS: ondansetron 2 mg/ML SDV 2 mL 4 MG IVP (17:18)
[2021-08-17 17:30] LABS: Alanine Aminotransferase 9 U/L (0-33); Albumin Level 3.8 g/dL (3.5-5.2); Alkaline Phosphatase 117 IU/L (35-105); Anion Gap 19.3 (5-19); Aspartate Amino Transferase 9 U/L (0-32); Blood Urea Nitrogen 25 mg/dL (6-20); Calcium 9.2 mg/dL (8.5-10.5); Carbon Dioxide 21 mmol/L (22-29); Chloride 101 mmol/L (98-107); Globulin 4.7 g/dL (1.3-4.6); Glomerular Filtration Rate 40.5 mL/min (90-130); Glucose 160 mg/dL (65-115); Lactate (Lactic Acid level) 0.9 mmol/L (0.5-2.2); Lipase 15 U/L (13-60); Osmolality Calculated 292 mOsm/kg (285-295); Potassium 4.3 mmol/L (3.5-5.1); Sodium 137 mmol/L (136-145); Total Bilirubin 0.2 mg/dL (0.15-1.2); Total Protein 8.5 g/dL (6.6-8.7)
[2021-08-17 17:44] LABS: Urine Appearance Cloudy (CLEAR); Urine Color Yellow (Yellow)
[2021-08-17 17:45] LABS: Add Urine Microscopic? YES; Bilirubin Urine Neg (Negative); Blood Urine 2+ (Negative); Glucose Urine UA Norm (Normal); Ketones Urine Negative (Negative); Leukocyte Esterase Urine 2+ (Negative); Nitrate Urine Negative (Negative); Protein Urine Neg (Negative); Specific Gravity, Urine 1.005 (1.005-1.030); Sulfosalicylic Acid Urine Negative (Negative); Urobilinogen Urine Norm (Negative); pH Urine 8 (5-7)
[2021-08-17 17:47] LABS: WBC Urine 55-80 /hpf (0-5)
[2021-08-17 17:48] LABS: Add Urine Culture? Yes; Amorphous Sediment Urine 2+ /hpf; Bacteria Urine 4+ /hpf; Mucus Urine 4+ /hpf
[2021-08-17 17:51] VITALS: BP 101/67; PULSE 65; RESP 16; O2SAT 96
[2021-08-17 18:22] VITALS: BP 105/70; PULSE 63; RESP 17; O2SAT 97
[2021-08-17 19:04] LABS: Protein Urine Trace (Negative); Urine Appearance Cloudy (CLEAR); Urine Color Yellow (Yellow); pH Urine 8 (5-7)
[2021-08-17 19:05] LABS: Add Urine Microscopic? YES; Bilirubin Urine Neg (Negative); Blood Urine 3+ (Negative); Glucose Urine UA Norm (Normal); Ketones Urine Negative (Negative); Leukocyte Esterase Urine 2+ (Negative); Nitrate Urine Negative (Negative); Sulfosalicylic Acid Urine Negative (Negative); Urobilinogen Urine Norm (Negative)
[2021-08-17 19:07] LABS: WBC Urine 55-80 /hpf (0-5)
[2021-08-17 19:08] LABS: Add Urine Culture? Yes; Amorphous Sediment Urine 2+ /hpf; Bacteria Urine 4+ /hpf; Mucus Urine 4+ /hpf; Squamous Epithelial Cell Urine 0-4 /hpf (0-5)
[2021-08-17] MEDS: cefTRIAXone 1,000 MG in sodium chloride 0.9% (plus) 50 ML 100 MG IV (19:22)
[2021-08-17 19:35] VITALS: RESP 18; O2SAT 96
[2021-08-17] MEDS: morphine 4 mg/mL SDV 1 mL IVP (19:35)
[2021-08-17 20:43] VITALS: BP 91/62; PULSE 102; RESP 16; O2SAT 98
--- NOTE | 2021-08-20 09:56 | PC.SOCIAL ---
Spoke with Jad at Urology clinic regarding referral for hydronephrosis blt per Dr Lopez. They will follow up and call patient for appt. jad aware she is a resident of [facility].
--- NOTE | 2021-08-29 13:56 | DCPLANNER ---
Addendum entered by Princess Garcia 11/16/21 11:38: Patient had a follow up appointment scheduled for 09.03.[address] Culp - patient did attend appointment. Original Note: Patient has a follow up appointment scheduled for Friday, September 03, 2021 at 1:[address] Culp. Clinic will call patient with appointment information.
== END 2021-08-17 20:45 | disposition home or self-care (01) ==
PROVIDERS: Emergency Provider Emergency Medicine; PCP Internal Medicine
DX: N13.6 Pyonephrosis (principal); N17.9 Acute kidney failure, unspecified; Z87.891 Personal history of nicotine dependence
CPT/HCPCS: 51702; 74177; 80053; 81001; 81025; 83605; 83690; 85025; 87077; 87086; 87186; 96365; 96375; 99284; J0696; J2270; J2405; J7030; Q9967

== ENCOUNTER 2021-09-03 10:49 | Outpatient (CLI) | payer MEDICARE, MEDICAID, SELFPAY ==
--- NOTE | 2021-09-03 11:03 | US_ITS ---
WS: [id number] RENAL ULTRASOUND HISTORY: UNSPECIFIED HYDRONEPHROSIS COMPARISON: None available. TECHNIQUE: 2-D and color Doppler imaging of the kidney submitted. Technically this is a very limited and difficult evaluation of the kidneys due to patient's body habi tus and positioning. Right kidney: 7.8 cm x 4.2 cm x 5.0 cm. Poorly visualized. No discrete hydronephrosis identified. Left kidney: Not visualized. Aorta: Not visualized. Urinary Bladder: Nondistended. US/US renal BI* [id number] IMPRESSION: Extremely limited evaluation of the kidneys. Hydronephrosis cannot be excluded on this examination.
== END 2021-09-03 10:50 | disposition home or self-care (01) ==
PROVIDERS: PCP Internal Medicine; Visit Provider Urology
DX: N13.30 Unspecified hydronephrosis (principal)
CPT/HCPCS: 76770

== ENCOUNTER 2022-01-22 18:01 | Emergency (ER) | payer MEDICARE, MEDICAID, SELFPAY ==
[2022-01-22 18:04] VITALS: BP 98/82; PULSE 68; RESP 18; TEMP 36.7; O2SAT 94; BMI 27.1
[2022-01-22 18:30] VITALS: PULSE 90; O2SAT 93
--- NOTE | 2022-01-22 18:39 | CTR_ITS ---
PROCEDURE INFORMATION: Exam: CT Abdomen And Pelvis With Contrast Exam date and time: 01/22/2022 7:05 PM Age: 46 years old Clinical indication: Prior surgery; Surgery date: 6+ months; Surgery type: Bladder repair, hysterectomy, gastrectomy, spinal surgery; Patient HX: Generalized abdominal pain, gross hematuria; Additional info: Abd pain TECHNIQUE: Imaging protocol: Computed tomography of the abdomen and pelvis with contrast. Radiation optimization: All CT scans at this facility use at least one of these dose optimization techniques: automated exposure control; mA and/or kV adjustment per patient size (includes targeted exams where dose is matched to clinical indication); or iterative reconstruction. Contrast material: VISI 320; Contrast volume: 95 ml; Contrast route: INTRAVENOUS (IV); COMPARISON: CT abdomen pelvis w con* [id number] 08/17/2021 5:02 PM RADIATION DOSE METRICS: Total DLP (mGy-cm): 1879.44 FINDINGS: Tubes, catheters and devices: A balloon bladder catheter is present. Lungs: There is unchanged bibasilar scarring. Diaphragm: A small hiatal hernia is present. Liver: There is a diffuse decrease in hepatic parenchymal density, consistent with fatty infiltration. Gallbladder and bile ducts: Normal. No calcified stones. No ductal dilation. Pancreas: Normal. No ductal dilation. Spleen: The spleen is normal. Adrenal glands: The adrenal glands are normal. Kidneys and ureters: There is moderate bilateral hydronephrosis right slightly greater than left but less prominent than the prior exam. There is wall thickening of the renal pelves and ureters especially the right ureter concerning for urinary tract infection. The distal aspect of the Dumont catheter is cannulating the distal right ureter/ureteral vesicle junction and no obstructing calculi are identified. No definite pyelonephritis. The kidneys are very lobulated with scattered cortical thinning/scarring bilaterally. Stomach and bowel: Postoperative changes involving the stomach are noted. There is mild gastric wall thickening but the stomach is also partially collapsed. There is moderately excessive colonic stool content. There is no evidence of intestinal perforation or obstruction. There is no evidence of colitis/diverticulitis. Appendix: A normal appendix is identified. Intraperitoneal space: Unremarkable. No free air. No significant fluid collection. Vasculature: Unremarkable.No abdominal aortic aneurysm. Lymph nodes: Unremarkable.No enlarged lymph nodes. Urinary bladder: The bladder is decompressed. Although the bladder is decompressed, the right wall of the bladder is specially surrounding the right ureteral vesicle junction is very thickened concerning for cystitis or possibly neoplasm. Reproductive: There has been a hysterectomy. Bones/joints: Unremarkable. No acute fracture. Soft tissues: Unremarkable. CT/CT abdomen pelvis w con* [id number] IMPRESSION: 1. There is moderate bilateral hydronephrosis right slightly greater than left but less prominent than the prior exam. There is wall thickening of the renal pelves and ureters especially the right ureter concerning for urinary tract infection. The distal aspect of the Dumont catheter is cannulating the distal right ureter/ureteral vesicle junction and no obstructing calculi are identified. 2. Although the urinary bladder is collapsed, there is marked asymmetric new wall thickening of the right lateral wall especially surrounding the right renal vesicle junction that may reflect cystitis or neoplasm. The wall of the distal right ureter and ureteral vesicle junction is thickened and enhancing concerning for infection.
--- NOTE | 2022-01-22 18:40 | W.ED.ABDPA2 ---
HPI - Abdominal Pain General: Chief Complaint: Abdominal Pain Stated Complaint: ABDOMINAL PAIN Time Seen by Provider: 01/22/22 18:08 Source: patient and EMS Mode of arrival: EMS Limitations: no limitations History of Present Illness: 46-year-old female who is here from [place] sn[place] she has a history of quadriplegia said chronic indwelling Dumont's. States she been having lower abdominal pain just had a Dumont replacement this week and felt like her Dumont may not be working. She has sharp pain in her lower abdomen she rates and 7 out of 10 states she did pass some blood clots in her Dumont earlier Dumont has clear urine in it currently. No vomiting no diarrhea no fever denies any worsening improving factors. Associated Symptoms: Denies chills, dysuria and fever(s) Related Data: Date of Last Menstrual Period: 01/17/21 Review of Systems Const: Denies: fever(s), chills, body aches or change in appetite Eyes: Denies: blurry vision or eye discomfort ENMT: Denies: throat pain or dental pain Card: Denies: chest pain Resp: Denies: dyspnea GI: Reports: abdominal pain : Denies: dysuria Musc: Denies: neck pain or back pain Skin/Breast: Denies: rash Neuro: Denies: headache(s) Psych: Denies: depression Raul/Lymph: Denies: easy bruising All/Imm: Denies: urticaria PFSH ED PFSH: Medical History Chronic indwelling Dumont catheter Hydronephrosis Neurogenic bladder Perforated abdominal viscus Condition resolved Post-traumatic quadriplegia Recurrent sepsis due to urinary tract infection Surgical History H/O bladder repair surgery H/O cystoscopy H/O partial cystectomy H/O Spinal surgery History of hysterectomy History of partial gastrectomy Family History Other CAD (coronary artery disease) Diabetes Hypertension Social History Alcohol intake: never Household members: spouse Housing: House Marital status: Current occupational status: disabled Female Reproductive History: Date of last menstrual period: 01/17/21 Physical Exam Const: COMMON NORMALS: no acute distress, patient oriented x3 and healthy appearing HENMT: COMMON NORMALS: normocephalic and atraumatic HEAD & SCALP: normocephalic and atraumatic Eye: COMMON NORMALS: Equal, round and reactive pupils present and EOMs intact bilaterally PUPIL: Yes Equal, round and reactive pupils present Neck/C-Spine: COMMON NORMALS: supple Chest: COMMONS NORMALS: normal inspection of the chest and normal palpation of entire chest wall Resp: COMMON NORMALS: normal respiratory effort, No retractions, No use of accessory muscles and clear to auscultation bilaterally AUSCULTATION: clear to auscultation bilaterally Cardio: COMMON NORMALS: regular rate, regular rhythm and No murmurs present (Cardio) RATE: regular rate RHYTHM: regular rhythm GI: COMMON NORMALS: Soft to palpation PALPATION: Yes Soft to palpation OTHER: Multiple surgical scars on abdomen does have some tenderness to her lower abdomen Dumont is in place has clear urine in it Extremity: COMMON NORMALS: normal to inspection Neuro: COMMON NORMALS: patient oriented x3 and no focal motor deficits Psych: COMMON NORMALS: mental status grossly normal, Normal thought process present and cooperative THOUGHT PROCESS: Normal thought process present Skin: COMMON NORMALS: no rashes or lesions noted and no wounds GENERAL SKIN EXAM: no rashes or lesions noted Course Vital Signs: Vital signs: Vital Signs Temperature 98.1 F 01/22/22 18:04 Pulse Rate 59 L 01/22/22 20:13 Respiratory Rate 18 01/22/22 20:13 Blood Pressure 93/66 01/22/22 20:13 Pulse Oximetry 94 01/22/22 20:13 MDM - Abdominal Pain Medical Decision Making Patient presents here with lower abdominal pain does have a urinary tract infection no signs of sepsis will start on antibiotics have her follow-up with PCP and return if worsening. Lab Data : 01/22/22 17:50 01/22/22 17:50 Labs/Radiology: Radiology Impressions Abdomen/Pelvis CT 01/22/22 18:39 IMPRESSION: 1. There is moderate bilateral hydronephrosis right slightly greater than left but less prominent than the prior exam. There is wall thickening of the renal pelves and ureters especially the right ureter concerning for urinary tract infection. The distal aspect of the Dumont catheter is cannulating the distal right ureter/ureteral vesicle junction and no obstructing calculi are identified. 2. Although the urinary bladder is collapsed, there is marked asymmetric new wall thickening of the right lateral wall especially surrounding the right renal vesicle junction that may reflect cystitis or neoplasm. The wall of the distal right ureter and ureteral vesicle junction is thickened and enhancing concerning for infection. Laboratory Results WBC 6.0 10^3/uL (4.0-10.0) 01/22/22 17:50 RBC 4.84 10^6/uL (4.1-5.3) 01/22/22 17:50 Hgb 14.1 g/dL (11.5-15.3) 01/22/22 17:50 Hct 44.2 % (37.0-47.0) 01/22/22 17:50 MCV 91.3 fl (81-99) 01/22/22 17:50 MCH 29.1 pg (28.0-34.0) 01/22/22 17:50 MCHC 31.9 g/dL (30.0-36.0) 01/22/22 17:50 RDW 13.8 % (12.1-15.1) 01/22/22 17:50 Plt Count 248 10^3/cmm (130-400) 01/22/22 17:50 MPV 11.0 fL (7.4-10.4) H 01/22/22 17:50 Neut % (Auto) 63.7 % 01/22/22 17:50 Lymph % (Auto) 26.0 % 01/22/22 17:50 Lewis % (Auto) 6.8 % 01/22/22 17:50 Eos % (Auto) 2.3 % 01/22/22 17:50 Baso % (Auto) 0.7 % 01/22/22 17:50 Neut # (Auto) 3.84 10^3/uL (1.8-7.7) 01/22/22 17:50 Lymph # (Auto) 1.6 10^3/uL (0.8-4.8) 01/22/22 17:50 Lewis # (Auto) 0.4 10^3/uL (0.2-0.9) 01/22/22 17:50 Eos # (Auto) 0.1 10^3/uL (0.0-0.8) 01/22/22 17:50 Baso # (Auto) 0.0 10^3/uL (0.0-0.1) 01/22/22 17:50 Nucleated RBC % (auto) 0 % 01/22/22 17:50 Nucleated RBCs # 0.0 /100WBC 01/22/22 17:50 Sodium 129 mmol/L (136-145) L 01/22/22 17:50 Potassium 3.9 mmol/L (3.5-5.1) 01/22/22 17:50 Chloride 94 mmol/L (98-107) L 01/22/22 17:50 Carbon Dioxide 24 mmol/L (22-29) 01/22/22 17:50 Anion Gap 14.9 (5-19) 01/22/22 17:50 BUN 13 mg/dL (6-20) 01/22/22 17:50 Creatinine 0.7 mg/dL (0.5-0.9) 01/22/22 17:50 GFR Calculation 90.1 mL/min (90-130) 01/22/22 17:50 Glucose 432 mg/dL (65-115) H 01/22/22 17:50 Calculated Osmolality 287 mOsm/kg (285-295) 01/22/22 17:50 Calcium 9.3 mg/dL (8.5-10.5) 01/22/22 17:50 Total Bilirubin 0.2 mg/dL (0.15-1.2) 01/22/22 17:50 AST 26 U/L (0-32) 01/22/22 17:50 ALT 23 U/L (0-33) 01/22/22 17:50 Alkaline Phosphatase 95 IU/L (35-105) 01/22/22 17:50 Total Protein 7.3 g/dL (6.6-8.7) 01/22/22 17:50 Albumin 4.0 g/dL (3.5-5.2) 01/22/22 17:50 Globulin 3.3 g/dL (1.3-4.6) 01/22/22 17:50 Lipase 27 U/L (13-60) 01/22/22 17:50 Urine Color Yellow (Yellow) 01/22/22 18:54 Urine Appearance Cloudy (CLEAR) 01/22/22 18:54 Urine pH 5 (5-7) 01/22/22 18:54 Ur Specific [place] 1.015 (1.005-1.030) 01/22/22 18:54 Urine Protein Neg (Negative) 01/22/22 18:54 Urine Glucose (UA) 4+ (Normal) H 01/22/22 18:54 Urine Ketones Negative (Negative) 01/22/22 18:54 Urine Blood 3+ (Negative) H 01/22/22 18:54 Urine Nitrate Positive (Negative) H 01/22/22 18:54 Urine Bilirubin Neg (Negative) 01/22/22 18:54 Urine Urobilinogen Neg mg/dL (Negative) 01/22/22 18:54 Ur Leukocyte Esterase 2+ (Negative) H 01/22/22 18:54 Urine RBC >100 /hpf (0-2) H 01/22/22 18:54 Urine WBC >100 /hpf (0-5) H 01/22/22 18:54 Ur Squamous Epith Cells 5-10 /hpf (0-5) H 01/22/22 18:54 Amorphous Sediment Not Reportable 01/22/22 18:54 Urine Bacteria 4+ /hpf (NONE) H 01/22/22 18:54 Urine Mucus 2+ /hpf 01/22/22 18:54 Discharge Plan Discharge Patient Disposition: Home Clinical Impression: Acute cystitis Condition: Stable Prescriptions: New Macrobid 100 mg capsule 100 mg PO BID 7 Days Qty: 14 0RF Rx Instructions: must administer with a meal/food No Action ascorbic acid (vitamin C) [Vitamin C] 1,000 mg Tablet 1,000 mg PO BID@08,20 0RF gentian bucky 1 % Solution 1 applic TOPICAL DAILY@08 0RF Rx Instructions: APPLY TO MACERATED AREAS OF BUTTOCKS methenamine hippurate 1 gram Tablet 1 g PO BID@08,20 0RF Rx Instructions: Clinically indicated ue to recurrent UTI. Ordered by Dr. Culp. magnesium hydroxide [Milk of Magnesia] 400 mg/5 mL Suspension 30 ml PO DAILY PRN (Reason: Constipation) 0RF Rx Instructions: If no BM in 3 days. pantoprazole 40 mg Tablet,Delayed Release (Dr/Ec) 40 mg PO DAILY 0RF nystatin 100,000 unit/gram Cream See Rx Instructions .ROUTE .COMPLEX 0RF Rx Instructions: APPLY TO RED AREA EVERY SHIFT Fleet Enema 19-7 gram/118 mL Enema 118 ml DC DAILY PRN (Reason: Constipation) 0RF gabapentin 100 mg Capsule 100 mg PO TID@08,14,20 0RF docusate sodium 100 mg Tablet 100 mg PO BID@08,20 0RF lactulose 10 gram/15 mL (15 mL) Solution 15 ml PO BID@08,20 0RF sennosides-docusate sodium [Senna Plus] 8.6-50 mg Tablet 2 tab PO BID@08,20 0RF sertraline [Zoloft] 25 mg Tablet 50 mg PO DAILY@08 0RF bisacodyl [Dulcolax (bisacodyl)] 5 mg Tablet,Delayed Release (Dr/Ec) 10 mg PO DAILY PRN (Reason: Constipation) 0RF metoclopramide HCl 10 mg tablet 10 mg PO Q6H PRN (Reason: nausea and vomiting) Qty: 20 0RF pravastatin 40 mg Tablet 40 mg PO BEDTIME 0RF naloxone 0.4 mg/mL Solution 0.4 mg IM Q2M PRN (Reason: overdose) 0RF acetaminophen 500 mg Tablet 500 mg PO Q6H PRN (Reason: Pain) 0RF simethicone 80 mg Tablet,Chewable 80 mg PO .AFTER MEALS 0RF Miralax 17 gram/dose powder 17 g PO DAILY PRN (Reason: constipation) 0RF ondansetron HCl [Zofran] 4 mg Tablet 4 mg PO Q6H PRN (Reason: Nausea And Vomiting) 0RF bisacodyl [Dulcolax (bisacodyl)] 10 mg Suppository 10 mg DC DAILY PRN (Reason: Constipation) 0RF Rx Instructions: Give rectally if can't take p/o, if no results from MOM tizanidine 4 mg Tablet 4 mg PO TID@08,14,20 PRN (Reason: unknown) 0RF fentanyl 50 mcg/hr Patch 72 Hour 1 patch TRANSDERMAL Q72H Qty: 5 0RF morphine concentrate 100 mg/5 mL (20 mg/mL) solution 5 mg PO Q4H PRN (Reason: Pain) Qty: 30 0RF alprazolam [Xanax] 0.25 mg Tablet 0.25 mg PO TID PRN (Reason: Anxiety) Qty: 10 0RF Discharge Orders: Discharge ED (Routine); Ordered 01/22/22 Ordered By: Liliana Anderson Referrals: Sedrick Cruz MD [Primary Care Provider] - Discharge Diet: Advance as tolerated Discharge Activity: Resume usual activity Patient Instructions: Urinary Tract Infection in Women (ED) Coding Level of Care Code ED Mononitrotoluene Operator for Chg Fwd Exam Comprehensive
[2022-01-22 18:49] LABS: Basophils % 0.7 %; Eosinophils # 0.1 10^3/uL (0.0-0.8); Eosinophils % 2.3 %; Hematocrit 44.2 % (37.0-47.0); Hemoglobin 14.1 g/dL (11.5-15.3); Lymphocytes # 1.6 10^3/uL (0.8-4.8); Mean Corpuscular HGB Conc 31.9 g/dL (30.0-36.0); Mean Corpuscular Hemoglobin 29.1 pg (28.0-34.0); Mean Corpuscular Volume 91.3 fl (81-99); Monocytes # 0.4 10^3/uL (0.2-0.9); Monocytes % 6.8 %; Neutrophils # 3.84 10^3/uL (1.8-7.7); Neutrophils % 63.7 %; Nucleated Red Blood Cells % 0 %; Platelet Count 248 10^3/cmm (130-400); Red Blood Count 4.84 10^6/uL (4.1-5.3); Red Cell Distribution Width 13.8 % (12.1-15.1)
[2022-01-22] MEDS: ondansetron 2 mg/ML SDV 2 mL 4 MG IVP (18:51)
[2022-01-22] MEDS: morphine 4 mg/mL SDV 1 mL IVP (18:52)
[2022-01-22] MEDS: iodixanol 320 mg/mL 100mL Btl IV (19:04)
[2022-01-22 19:14] LABS: Alanine Aminotransferase 23 U/L (0-33); Alkaline Phosphatase 95 IU/L (35-105); Anion Gap 14.9 (5-19); Aspartate Amino Transferase 26 U/L (0-32); Blood Urea Nitrogen 13 mg/dL (6-20); Calcium 9.3 mg/dL (8.5-10.5); Carbon Dioxide 24 mmol/L (22-29); Chloride 94 mmol/L (98-107); Globulin 3.3 g/dL (1.3-4.6); Glomerular Filtration Rate 90.1 mL/min (90-130); Glucose 432 mg/dL (65-115); Lipase 27 U/L (13-60); Osmolality Calculated 287 mOsm/kg (285-295); Potassium 3.9 mmol/L (3.5-5.1); Sodium 129 mmol/L (136-145); Total Bilirubin 0.2 mg/dL (0.15-1.2); Total Protein 7.3 g/dL (6.6-8.7)
[2022-01-22 19:55] LABS: Add Urine Microscopic? YES; Bilirubin Urine Neg (Negative); Blood Urine 3+ (Negative); Glucose Urine UA 4+ (Normal); Ketones Urine Negative (Negative); Leukocyte Esterase Urine 2+ (Negative); Nitrate Urine Positive (Negative); Protein Urine Neg (Negative); Specific Gravity, Urine 1.015 (1.005-1.030); Urine Appearance Cloudy (CLEAR); Urine Color Yellow (Yellow); Urobilinogen Urine Neg (Negative); pH Urine 5 (5-7)
[2022-01-22 20:02] LABS: Bacteria Urine 4+ /hpf; Mucus Urine 2+ /hpf; RBC Urine >100 /hpf (0-2); WBC Urine >100 /hpf (0-5)
[2022-01-22 20:07] VITALS: BP 93/66; O2SAT 93
[2022-01-22] MEDS: cefTRIAXone 1,000 MG in sodium chloride 0.9% (plus) 50 ML 100 MG IV (20:12)
[2022-01-22 20:13] VITALS: BP 93/66; PULSE 59; RESP 18; O2SAT 94
--- NOTE | 2022-01-22 20:27 | PC.NURSE ---
[facility]ISTOF[facility]UKLA SET UP @ 2027, REFERENCE # [id number]
[2022-01-22 21:32] VITALS: BP 117/74; PULSE 62; RESP 15; O2SAT 94
[2022-01-22 21:33] VITALS: BP 117/74; PULSE 62; RESP 15; O2SAT 94
== END 2022-01-22 21:30 | disposition home or self-care (01) ==
PROVIDERS: Emergency Provider Emergency Medicine; PCP Internal Medicine
DX: N30.00 Acute cystitis without hematuria (principal); N13.30 Unspecified hydronephrosis; G82.50 Quadriplegia, unspecified; N31.9 Neuromuscular dysfunction of bladder, unspecified
CPT/HCPCS: 74177; 80053; 81001; 83690; 85025; 96365; 96375; 99284; J0696; J2270; J2405; Q9967

== ENCOUNTER 2022-01-24 15:11 | Emergency (ER) | payer MEDICARE, MEDICAID, SELFPAY ==
[2022-01-24 15:17] VITALS: BP 115/82; PULSE 76; RESP 16; TEMP 37.3; O2SAT 95; BMI 27.2
[2022-01-24 16:18] VITALS: BP 106/75; PULSE 71; RESP 20; O2SAT 95
--- NOTE | 2022-01-24 16:25 | CTR_ITS ---
PROCEDURE INFORMATION: Exam: CT Abdomen And Pelvis Without Contrast Exam date and time: 01/24/2022 5:01 PM Age: 46 years old Clinical indication: Bloating; Abdominal pain; Generalized; Prior surgery; Surgery date: 6+ months; Surgery type: Spine, bladdern cystectomy, hyst, part gatrectomy, indwelling catheter; Patient HX: C/O abd pain and distention; Additional info: Abdominal pain, distention, R back pain; Dumont TECHNIQUE: Imaging protocol: Computed tomography of the abdomen and pelvis without contrast. Radiation optimization: All CT scans at this facility use at least one of these dose optimization techniques: automated exposure control; mA and/or kV adjustment per patient size (includes targeted exams where dose is matched to clinical indication); or iterative reconstruction. COMPARISON: CT abdomen pelvis w con* [id number] 01/22/2022 7:05 PM RADIATION DOSE METRICS: Total DLP (mGy-cm): 1972.96 FINDINGS: Tubes, catheters and devices: Dumont catheter noted. Liver: The liver is unremarkable in appearance. Gallbladder and bile ducts: No calcified gallstones in the gallbladder. No gallbladder wall thickening. No pericholecystic fluid. No biliary dilatation. Pancreas: The pancreas is normal in appearance. No pancreatic duct dilatation. Spleen: The spleen is normal in size and appearance. Adrenal glands: 1.5 cm left adrenal nodule measuring 0 Hounsfield units in density, consistent with adrenal adenoma. Right adrenal gland is unremarkable. Kidneys and ureters: Mild right hydroureteronephrosis noted. The distal tip of the indwelling Dumont catheter, extends into the distal right ureter, causing right ureteral obstruction. No obstructing right ureteral calculus. Cortical scarring of the left kidney noted. No left hydronephrosis. Left ureter is unremarkable. Stomach and bowel: Postop changes of the stomach consistent with gastric sleeve surgery are noted. No acute gastric abnormality demonstrated. The small bowel is unremarkable as demonstrated. Moderate retained stool throughout the colon. No inflammatory change of the colon. Appendix: No evidence of appendicitis. Normal appendix identified. Intraperitoneal space: No free air. No significant fluid collection. Vasculature: The aorta is atherosclerotic. No aortic aneurysm. Lymph nodes: No pathologically enlarged lymph nodes are demonstrated. Urinary bladder: Urinary bladder is empty. Reproductive: The uterus is not visualized, consistent with hysterectomy. Bones/joints: No fracture or other acute osseous abnormality. Soft tissues: Unremarkable. CT/CT abdomen pelvis wo con [id number] IMPRESSION: 1. Mild right hydroureteronephrosis noted. The distal tip of the indwelling Dumont catheter, extends into the distal right ureter, causing right ureteral obstruction. No obstructing right ureteral calculus. Degree of right hydroureteronephrosis has worsened when compared to 01/22/2022. 2. 1.5 cm left adrenal nodule measuring 0 Hounsfield units in density, consistent with adrenal adenoma. COMMENTS: Consistent with the [employer]'s Incidental Findings Committee white paper (J Am Karine Radiol 2017): Any incidental adrenal lesion less than or equal to 1 cm is likely benign. No follow-up imaging is recommended for these lesions per consensus recommendations based on imaging criteria. Further lab evaluation could be pursued if warranted based on clinical findings.
--- NOTE | 2022-01-24 16:25 | ED_ITS ---
Documented by User: SHAYNA Mata 01/24/22 16:48 HPI - Abdominal Pain General: Chief Complaint: Abdominal Pain Stated Complaint: BACK PAIN Time Seen by Provider: 01/24/22 15:17 Source: patient and EMS Mode of arrival: EMS Limitations: no limitations History of Present Illness: Patient is a 46-year-old female with a history of quadriplegia, neurogenic bladder, chronic indwelling Alfaro catheter here for concerns of abdominal pain and right-sided back pain. Patient states she was just seen here yesterday for some lower abdominal pains and had noted blood in her Alfaro bag. Patient was discharged home on Macrobid. Patient states since then her entire abdomen is now hurting and she is having pain to the right side of her back. No fevers. No vomiting. She states her abdomen feels distended. MD elicited complaint: abdominal pain Pain Consistency: constant Location: Diffuse Migration to: R flank Associated Symptoms: Reports hematuria (this has cleared since last visit); Denies chills, diarrhea, fever(s), nausea and vomiting Related Data: Date of Last Menstrual Period: 01/17/21 Review of Systems Const: Denies: fever(s), chills, body aches, fatigue or malaise Card: Denies: chest pain Resp: Denies: dyspnea GI: Reports: abdominal pain; Denies: nausea, vomiting or diarrhea : Reports: flank pain, hematuria (this has cleared since last visit) and other (reports her alfaro seems to be draining normally) Neuro: Denies: headache(s) PFS ED PFSH: Medical History Chronic indwelling Alfaro catheter Hydronephrosis Neurogenic bladder Perforated abdominal viscus Condition resolved Post-traumatic quadriplegia Recurrent sepsis due to urinary tract infection Surgical History H/O bladder repair surgery H/O cystoscopy H/O partial cystectomy H/O Spinal surgery History of hysterectomy History of partial gastrectomy Family History Other CAD (coronary artery disease) Diabetes Hypertension Social History Alcohol intake: never Household members: spouse Housing: House Marital status: Current occupational status: disabled Female Reproductive History: Date of last menstrual period: 01/17/21 Physical Exam Const: COMMON NORMALS: no acute distress, patient oriented x3, no limitations and alert NUTRITIONAL APPEARANCE: obese ORIENTATION/CONSCIOUSNESS: Yes awake, Yes oriented to person, Yes oriented to place and Yes oriented to time Resp: COMMON NORMALS: normal respiratory effort and clear to auscultation bilaterally AUSCULTATION: clear to auscultation bilaterally Cardio: COMMON NORMALS: regular rate and regular rhythm RATE: regular rate RHYTHM: regular rhythm GI: INSPECTION: Yes abdominal distension (diffusely) AUSCULTATION: Yes normoactive bowel sounds PALPATION: Yes Tenderness to palpation present (GI) (diffuse) : BLADDER/KIDNEY EXAM: Yes CVA tenderness on the right OTHER: alfaro with clear yellow urine with sediment in tubing; several hundred mls currently in alfaro bag-scant bloody sediment present Back/Pelvis: GENERAL BACK: Yes CVA tenderness Neuro: JESICA COMA SCALE: document GCS findings Jesica coma scale eye opening: Spontaneous Jesica coma scale verbal response: Orientated [place] coma scale motor response: Obey commands Jesica coma scale total score: 15 COMMON NORMALS: patient oriented x3 SENSORIUM/ORIENTATION: Yes alert, Yes oriented to person, Yes oriented to place and Yes oriented to time Course Vital Signs: Vital signs: Vital Signs Temperature 99.2 F 01/24/22 15:17 Pulse Rate 70 01/24/22 18:24 Respiratory Rate 16 01/24/22 18:24 Blood Pressure 94/53 01/24/22 18:24 Pulse Oximetry 94 01/24/22 18:24 MDM - Abdominal Pain Lab Data : 01/24/22 17:20 01/24/22 16:30 Labs/Radiology: Radiology Impressions Abdomen/Pelvis CT 01/24/22 16:25 IMPRESSION: 1. Mild right hydroureteronephrosis noted. The distal tip of the indwelling Alfaro catheter, extends into the distal right ureter, causing right ureteral obstruction. No obstructing right ureteral calculus. Degree of right hydroureteronephrosis has worsened when compared to 01/22/2022. 2. 1.5 cm left adrenal nodule measuring 0 Hounsfield units in density, consistent with adrenal adenoma. COMMENTS: Consistent with the [employer]'s Incidental Findings Committee white paper (J Am Karine Radiol 2017): Any incidental adrenal lesion less than or equal to 1 cm is likely benign. No follow-up imaging is recommended for these lesions per consensus recommendations based on imaging criteria. Further lab evaluation could be pursued if warranted based on clinical findings. Laboratory Results WBC 7.0 10^3/uL (4.0-10.0) 01/24/22 17:20 Corrected WBC Cancelled 01/24/22 16:30 RBC 4.74 10^6/uL (4.1-5.3) 01/24/22 17:20 Hgb 13.8 g/dL (11.5-15.3) 01/24/22 17:20 Hct 43.1 % (37.0-47.0) 01/24/22 17:20 MCV 90.9 fl (81-99) 01/24/22 17:20 MCH 29.1 pg (28.0-34.0) 01/24/22 17:20 MCHC 32.0 g/dL (30.0-36.0) 01/24/22 17:20 RDW 13.7 % (12.1-15.1) 01/24/22 17:20 Plt Count 215 10^3/cmm (130-400) 01/24/22 17:20 MPV 10.6 fL (7.4-10.4) H 01/24/22 17:20 Gran % Cancelled 01/24/22 16:30 Neut % (Auto) 76.5 % 01/24/22 17:20 Lymph % (Auto) 14.1 % 01/24/22 17:20 [place] % (Auto) 7.7 % 01/24/22 17:20 Eos % (Auto) 0.7 % 01/24/22 17:20 Baso % (Auto) 0.6 % 01/24/22 17:20 Neut # (Auto) 5.36 10^3/uL (1.8-7.7) 01/24/22 17:20 Lymph # (Auto) 1.0 10^3/uL (0.8-4.8) 01/24/22 17:20 [place] # (Auto) 0.5 10^3/uL (0.2-0.9) 01/24/22 17:20 Eos # (Auto) 0.1 10^3/uL (0.0-0.8) 01/24/22 17:20 Baso # (Auto) 0.0 10^3/uL (0.0-0.1) 01/24/22 17:20 Absolute Gran (auto) Cancelled 01/24/22 16:30 Nucleated RBC % (auto) 0 % 01/24/22 17:20 Nucleated RBCs # 0.0 /100WBC 01/24/22 17:20 Sodium 130 mmol/L (136-145) L 01/24/22 16:30 Potassium 3.9 mmol/L (3.5-5.1) 01/24/22 16:30 Chloride 95 mmol/L (98-107) L 01/24/22 16:30 Carbon Dioxide 21 mmol/L (22-29) L 01/24/22 16:30 Anion Gap 17.9 (5-19) 01/24/22 16:30 BUN 9 mg/dL (6-20) 01/24/22 16:30 Creatinine 0.7 mg/dL (0.5-0.9) 01/24/22 16:30 GFR Calculation 90.1 mL/min (90-130) 01/24/22 16:30 Glucose 384 mg/dL (65-115) H 01/24/22 16:30 Calculated Osmolality 285 mOsm/kg (285-295) 01/24/22 16:30 Lactic Acid 1.1 mmol/L (0.5-2.2) 01/24/22 16:30 Calcium 9.4 mg/dL (8.5-10.5) 01/24/22 16:30 Total Bilirubin 0.3 mg/dL (0.15-1.2) 01/24/22 16:30 AST 14 U/L (0-32) 01/24/22 16:30 ALT 17 U/L (0-33) 01/24/22 16:30 Alkaline Phosphatase 114 IU/L (35-105) H 01/24/22 16:30 Total Protein 8.3 g/dL (6.6-8.7) 01/24/22 16:30 Albumin 3.8 g/dL (3.5-5.2) 01/24/22 16:30 Globulin 4.5 g/dL (1.3-4.6) 01/24/22 16:30 Urine Color Yellow (Yellow) 01/24/22 16:15 Urine Appearance Turbid (CLEAR) 01/24/22 16:15 Urine pH 6.5 (5-7) 01/24/22 16:15 Ur Specific [place] 1.005 (1.005-1.030) 01/24/22 16:15 Urine Protein Trace (Negative) 01/24/22 16:15 Urine Glucose (UA) 4+ (Normal) H 01/24/22 16:15 Urine Ketones 1+ (Negative) H 01/24/22 16:15 Urine Blood 3+ (Negative) H 01/24/22 16:15 Urine Nitrate Negative (Negative) 01/24/22 16:15 Urine Bilirubin Neg (Negative) 01/24/22 16:15 Urine Urobilinogen Norm mg/dL (Negative) 01/24/22 16:15 Ur Leukocyte Esterase 2+ (Negative) H 01/24/22 16:15 Urine RBC 5-10 /hpf (0-2) H 01/24/22 16:15 Urine WBC 55-80 /hpf (0-5) H 01/24/22 16:15 Ur Squamous Epith Cells 0-4 /hpf (0-5) H 01/24/22 16:15 Amorphous Sediment 2+ /hpf 01/24/22 16:15 Urine Bacteria 4+ /hpf (NONE) H 01/24/22 16:15 Discharge Plan Discharge Patient Disposition: Home Clinical Impression: Cystitis, Chronic indwelling Alfaro catheter Condition: Stable Prescriptions: New cefdinir 300 mg capsule 300 mg PO BID 5 Days Qty: 10 0RF No Action ascorbic acid (vitamin C) [Vitamin C] 1,000 mg Tablet 1,000 mg PO BID@08,20 0RF methenamine hippurate 1 gram Tablet 1 g PO BID@08,20 0RF Rx Instructions: Clinically indicated ue to recurrent UTI. Ordered by Dr. Culp. magnesium hydroxide [Milk of Magnesia] 400 mg/5 mL Suspension 30 ml PO DAILY PRN (Reason: Constipation) 0RF Rx Instructions: If no BM in 3 days. pantoprazole 40 mg Tablet,Delayed Release (Dr/Ec) 40 mg PO DAILY 0RF nystatin 100,000 unit/gram Cream See Rx Instructions .ROUTE .COMPLEX 0RF Rx Instructions: APPLY TO RED AREA EVERY SHIFT Fleet Enema 19-7 gram/118 mL Enema 118 ml GA DAILY PRN (Reason: Constipation) 0RF gabapentin 100 mg Capsule 100 mg PO TID@,,20 0RF docusate sodium 100 mg Tablet 100 mg PO BID@,20 0RF lactulose 10 gram/15 mL (15 mL) Solution 15 ml PO BID@08,20 0RF sennosides-docusate sodium [Senna Plus] 8.6-50 mg Tablet 2 tab PO BID@08,20 0RF sertraline [Zoloft] 25 mg Tablet 50 mg PO DAILY@08 0RF bisacodyl [Dulcolax (bisacodyl)] 5 mg Tablet,Delayed Release (Dr/Ec) 10 mg PO DAILY PRN (Reason: Constipation) 0RF metoclopramide HCl 10 mg tablet 10 mg PO Q6H PRN (Reason: nausea and vomiting) Qty: 20 0RF pravastatin 40 mg Tablet 40 mg PO BEDTIME 0RF naloxone 0.4 mg/mL Solution 0.4 mg IM Q2M PRN (Reason: overdose) 0RF acetaminophen 500 mg Tablet 500 mg PO Q6H PRN (Reason: Pain) 0RF simethicone 80 mg Tablet,Chewable 80 mg PO .AFTER MEALS 0RF polyethylene glycol 3350 [Miralax] 17 gram/dose powder 17 g PO DAILY PRN (Reason: constipation) 0RF bisacodyl [Dulcolax (bisacodyl)] 10 mg Suppository 10 mg GA DAILY PRN (Reason: Constipation) 0RF Rx Instructions: Give rectally if can't take p/o, if no results from MOM tizanidine 4 mg Tablet 4 mg PO TID@,,20 PRN (Reason: unknown) 0RF fentanyl 50 mcg/hr Patch 72 Hour 1 patch TRANSDERMAL Q72H Qty: 5 0RF morphine concentrate 100 mg/5 mL (20 mg/mL) solution 5 mg PO Q4H PRN (Reason: Pain) Qty: 30 0RF alprazolam [Xanax] 0.25 mg Tablet 0.25 mg PO TID PRN (Reason: Anxiety) Qty: 10 0RF nitrofurantoin monohyd/m-cryst [Macrobid] 100 mg capsule 100 mg PO BID 7 Days Qty: 14 0RF Rx Instructions: must administer with a meal/food Zofran 4 mg Tablet 4 mg PO Q6H PRN (Reason: Nausea) 0RF Relistor 12 mg/0.6 mL Syringe 6 mg SUBCUT Q3D PRN (Reason: Constipation) 0RF Discharge Orders: Discharge ED (Routine); Ordered 01/24/22 Ordered By: Moise Zapata Referrals: Sedrick Cruz MD [Primary Care Provider] - Discharge Diet: Usual diet Discharge Activity: Resume usual activity Patient Instructions: Catheter-associated Urinary Tract Infection (ED) Activity Restrictions/Additional Instructions: Stop nitrofurantoin. Use cefdinir 300 mg twice a day for the next 5 days. Recheck urine in 1 week. Healthy diet and activity. Encourage plenty of fluids. Return to ER for new concerns. Sign Out Sign Out Data: Patient Sign Out occurred on 01/24/22 at 17:13. Patient's care was discussed, and care was transferred from to Moise Zapata. Coding Level of Care Code ED Combat Systems Operator for Chg Fwd Exam Detailed Documented by User: EMELIA Cedillo 01/24/22 18:58 HPI - Abdominal Pain General: Chief Complaint: Abdominal Pain Stated Complaint: BACK PAIN Time Seen by Provider: 01/24/22 15:17 [facility] ED PFSH: Medical History Chronic indwelling Alfaro catheter Hydronephrosis Neurogenic bladder Perforated abdominal viscus Condition resolved Post-traumatic quadriplegia Recurrent sepsis due to urinary tract infection Surgical History H/O bladder repair surgery H/O cystoscopy H/O partial cystectomy H/O Spinal surgery History of hysterectomy History of partial gastrectomy Family History Other CAD (coronary artery disease) Diabetes Hypertension Social History Alcohol intake: never Household members: spouse Housing: House Marital status: Current occupational status: disabled Physical Exam Neuro: JESICA COMA SCALE: document GCS findings [place] coma scale total score: 15 Course ED course: 1844, Alfaro catheter was changed due to abnormality noted on the CT scan with the distal tip was in the distal part of the right ureter with hydronephrosis. We will give patient another dose of Rocephin due to better coverage of the infection. Patient be continued on cefdinir 300 twice a day for 5 days. Patient's abdomen was slightly distended although CT scan did not indicate any other abnormalities. Vital Signs: Vital signs: Vital Signs Temperature 99.2 F 01/24/22 15:17 Pulse Rate 70 01/24/22 18:24 Respiratory Rate 16 01/24/22 18:24 Blood Pressure 94/53 01/24/22 18:24 Pulse Oximetry 94 01/24/22 18:24 MDM - Abdominal Pain Medical Decision Making Patient was sent over from [facility] due to abdominal pain. Patient was started on antibiotics yesterday for a urinary tract infection. On exam abdomen was noted to be distended and tender to touch. Differential diagnosis includes but not limited to sepsis, bowel obstruction, pyelonephritis. Laboratory values were unchanged from yesterday are very similar. Urinalysis showed some improvement with a decrease in the red blood cells and white blood cells in the urine. Review of the record noted prior urinary tract infections that were resistant to Macrobid. CT of the abdomen pelvis indicated no obstruction no other significant abnormality except for some hydronephrosis and distal tip of t he Alfaro catheter in the right ureter. Alfaro catheter was changed. Patient was given another dose of Rocephin for her urinary tract infection. We will continue cefdinir twice a day for patient's urinary tract infection. Patient tolerated procedure well we will can return to the halfway on cefdinir and follow-up with repeat urinalysis. Patient reported understanding. Lab Data : 01/24/22 17:20 01/24/22 16:30 Labs/Radiology: Radiology Impressions Abdomen/Pelvis CT 01/24/22 16:25 IMPRESSION: 1. Mild right hydroureteronephrosis noted. The distal tip of the indwelling Alfaro catheter, extends into the distal right ureter, causing right ureteral obstruction. No obstructing right ureteral calculus. Degree of right hydroureteronephrosis has worsened when compared to 01/22/2022. 2. 1.5 cm left adrenal nodule measuring 0 Hounsfield units in density, consistent with adrenal adenoma. COMMENTS: Consistent with the [employer]'s Incidental Findings Committee white paper (J Am Karine Radiol 2017): Any incidental adrenal lesion less than or equal to 1 cm is likely benign. No follow-up imaging is recommended for these lesions per consensus recommendations based on imaging criteria. Further lab evaluation could be pursued if warranted based on clinical findings. Laboratory Results WBC 7.0 10^3/uL (4.0-10.0) 01/24/22 17:20 Corrected WBC Cancelled 01/24/22 16:30 RBC 4.74 10^6/uL (4.1-5.3) 01/24/22 17:20 Hgb 13.8 g/dL (11.5-15.3) 01/24/22 17:20 Hct 43.1 % (37.0-47.0) 01/24/22 17:20 MCV 90.9 fl (81-99) 01/24/22 17:20 MCH 29.1 pg (28.0-34.0) 01/24/22 17:20 MCHC 32.0 g/dL (30.0-36.0) 01/24/22 17:20 RDW 13.7 % (12.1-15.1) 01/24/22 17:20 Plt Count 215 10^3/cmm (130-400) 01/24/22 17:20 MPV 10.6 fL (7.4-10.4) H 01/24/22 17:20 Gran % Cancelled 01/24/22 16:30 Neut % (Auto) 76.5 % 01/24/22 17:20 Lymph % (Auto) 14.1 % 01/24/22 17:20 [place] % (Auto) 7.7 % 01/24/22 17:20 Eos % (Auto) 0.7 % 01/24/22 17:20 Baso % (Auto) 0.6 % 01/24/22 17:20 Neut # (Auto) 5.36 10^3/uL (1.8-7.7) 01/24/22 17:20 Lymph # (Auto) 1.0 10^3/uL (0.8-4.8) 01/24/22 17:20 [place] # (Auto) 0.5 10^3/uL (0.2-0.9) 01/24/22 17:20 Eos # (Auto) 0.1 10^3/uL (0.0-0.8) 01/24/22 17:20 Baso # (Auto) 0.0 10^3/uL (0.0-0.1) 01/24/22 17:20 Absolute Gran (auto) Cancelled 01/24/22 16:30 Nucleated RBC % (auto) 0 % 01/24/22 17:20 Nucleated RBCs # 0.0 /100WBC 01/24/22 17:20 Sodium 130 mmol/L (136-145) L 01/24/22 16:30 Potassium 3.9 mmol/L (3.5-5.1) 01/24/22 16:30 Chloride 95 mmol/L (98-107) L 01/24/22 16:30 Carbon Dioxide 21 mmol/L (22-29) L 01/24/22 16:30 Anion Gap 17.9 (5-19) 01/24/22 16:30 BUN 9 mg/dL (6-20) 01/24/22 16:30 Creatinine 0.7 mg/dL (0.5-0.9) 01/24/22 16:30 GFR Calculation 90.1 mL/min (90-130) 01/24/22 16:30 Glucose 384 mg/dL (65-115) H 01/24/22 16:30 Calculated Osmolality 285 mOsm/kg (285-295) 01/24/22 16:30 Lactic Acid 1.1 mmol/L (0.5-2.2) 01/24/22 16:30 Calcium 9.4 mg/dL (8.5-10.5) 01/24/22 16:30 Total Bilirubin 0.3 mg/dL (0.15-1.2) 01/24/22 16:30 AST 14 U/L (0-32) 01/24/22 16:30 ALT 17 U/L (0-33) 01/24/22 16:30 Alkaline Phosphatase 114 IU/L (35-105) H 01/24/22 16:30 Total Protein 8.3 g/dL (6.6-8.7) 01/24/22 16:30 Albumin 3.8 g/dL (3.5-5.2) 01/24/22 16:30 Globulin 4.5 g/dL (1.3-4.6) 01/24/22 16:30 Urine Color Yellow (Yellow) 01/24/22 16:15 Urine Appearance Turbid (CLEAR) 01/24/22 16:15 Urine pH 6.5 (5-7) 01/24/22 16:15 Ur Specific [place] 1.005 (1.005-1.030) 01/24/22 16:15 Urine Protein Trace (Negative) 01/24/22 16:15 Urine Glucose (UA) 4+ (Normal) H 01/24/22 16:15 Urine Ketones 1+ (Negative) H 01/24/22 16:15 Urine Blood 3+ (Negative) H 01/24/22 16:15 Urine Nitrate Negative (Negative) 01/24/22 16:15 Urine Bilirubin Neg (Negative) 01/24/22 16:15 Urine Urobilinogen Norm mg/dL (Negative) 01/24/22 16:15 Ur Leukocyte Esterase 2+ (Negative) H 01/24/22 16:15 Urine RBC 5-10 /hpf (0-2) H 01/24/22 16:15 Urine WBC 55-80 /hpf (0-5) H 01/24/22 16:15 Ur Squamous Epith Cells 0-4 /hpf (0-5) H 01/24/22 16:15 Amorphous Sediment 2+ /hpf 01/24/22 16:15 Urine Bacteria 4+ /hpf (NONE) H 01/24/22 16:15 Discharge Plan Discharge Patient Disposition: Home Clinical Impression: Cystitis, Chronic indwelling Alfaro catheter Condition: Stable Prescriptions: New cefdinir 300 mg capsule 300 mg PO BID 5 Days Qty: 10 0RF No Action ascorbic acid (vitamin C) [Vitamin C] 1,000 mg Tablet 1,000 mg PO BID@08,20 0RF methenamine hippurate 1 gram Tablet 1 g PO BID@08,20 0RF Rx Instructions: Clinically indicated ue to recurrent UTI. Ordered by Dr. Culp. magnesium hydroxide [Milk of Magnesia] 400 mg/5 mL Suspension 30 ml PO DAILY PRN (Reason: Constipation) 0RF Rx Instructions: If no BM in 3 days. pantoprazole 40 mg Tablet,Delayed Release (Dr/Ec) 40 mg PO DAILY 0RF nystatin 100,000 unit/gram Cream See Rx Instructions .ROUTE .COMPLEX 0RF Rx Instructions: APPLY TO RED AREA EVERY SHIFT Fleet Enema 19-7 gram/118 mL Enema 118 ml GA DAILY PRN (Reason: Constipation) 0RF gabapentin 100 mg Capsule 100 mg PO TID@08,14,20 0RF docusate sodium 100 mg Tablet 100 mg PO BID@08,20 0RF lactulose 10 gram/15 mL (15 mL) Solution 15 ml PO BID@08,20 0RF sennosides-docusate sodium [Senna Plus] 8.6-50 mg Tablet 2 tab PO BID@08,20 0RF sertraline [Zoloft] 25 mg Tablet 50 mg PO DAILY@08 0RF bisacodyl [Dulcolax (bisacodyl)] 5 mg Tablet,Delayed Release (Dr/Ec) 10 mg PO DAILY PRN (Reason: Constipation) 0RF metoclopramide HCl 10 mg tablet 10 mg PO Q6H PRN (Reason: nausea and vomiting) Qty: 20 0RF pravastatin 40 mg Tablet 40 mg PO BEDTIME 0RF naloxone 0.4 mg/mL Solution 0.4 mg IM Q2M PRN (Reason: overdose) 0RF acetaminophen 500 mg Tablet 500 mg PO Q6H PRN (Reason: Pain) 0RF simethicone 80 mg Tablet,Chewable 80 mg PO .AFTER MEALS 0RF polyethylene glycol 3350 [Miralax] 17 gram/dose powder 17 g PO DAILY PRN (Reason: constipation) 0RF bisacodyl [Dulcolax (bisacodyl)] 10 mg Suppository 10 mg GA DAILY PRN (Reason: Constipation) 0RF Rx Instructions: Give rectally if can't take p/o, if no results from MOM tizanidine 4 mg Tablet 4 mg PO TID@08,14,20 PRN (Reason: unknown) 0RF fentanyl 50 mcg/hr Patch 72 Hour 1 patch TRANSDERMAL Q72H Qty: 5 0RF morphine concentrate 100 mg/5 mL (20 mg/mL) solution 5 mg PO Q4H PRN (Reason: Pain) Qty: 30 0RF alprazolam [Xanax] 0.25 mg Tablet 0.25 mg PO TID PRN (Reason: Anxiety) Qty: 10 0RF nitrofurantoin monohyd/m-cryst [Macrobid] 100 mg capsule 100 mg PO BID 7 Days Qty: 14 0RF Rx Instructions: must administer with a meal/food Zofran 4 mg Tablet 4 mg PO Q6H PRN (Reason: Nausea) 0RF Relistor 12 mg/0.6 mL Syringe 6 mg SUBCUT Q3D PRN (Reason: Constipation) 0RF Discharge Orders: Discharge ED (Routine); Ordered 01/24/22 Ordered By: Moise Zapata Referrals: Sedrick Cruz MD [Primary Care Provider] - Discharge Diet: Usual diet Discharge Activity: Resume usual activity Patient Instructions: Catheter-associated Urinary Tract Infection (ED) Activity Restrictions/Additional Instructions: Stop nitrofurantoin. Use cefdinir 300 mg twice a day for the next 5 days. Recheck urine in 1 week. Healthy diet and activity. Encourage plenty of fluids. Return to ER for new concerns. Sign Out Sign Out Data: Patient Sign Out occurred on 01/24/22 at 17:13. Patient's care was discussed, and care was transferred from to Moise Zapata. Coding Level of Care Code ED Combat Systems Operator for Chg Fwd Exam Detailed
--- NOTE | 2022-01-24 16:55 | PC.NURSE ---
bladder scan shown to [facility] CASTELLANO
--- NOTE | 2022-01-24 16:56 | PC.NURSE ---
pt to ct
[2022-01-24 16:59] LABS: Add Urine Culture? Yes; Add Urine Microscopic? YES; Amorphous Sediment Urine 2+ /hpf; Bacteria Urine 4+ /hpf; Bilirubin Urine Neg (Negative); Blood Urine 3+ (Negative); Glucose Urine UA 4+ (Normal); Ketones Urine 1+ (Negative); Leukocyte Esterase Urine 2+ (Negative); Nitrate Urine Negative (Negative); Protein Urine Trace (Negative); Specific Gravity, Urine 1.005 (1.005-1.030); Squamous Epithelial Cell Urine 0-4 /hpf (0-5); Urine Appearance Turbid (CLEAR); Urine Color Yellow (Yellow); Urobilinogen Urine Norm (Negative); WBC Urine 55-80 /hpf (0-5); pH Urine 6.5 (5-7)
[2022-01-24 16:59] LABS: Alanine Aminotransferase 17 U/L (0-33); Albumin Level 3.8 g/dL (3.5-5.2); Alkaline Phosphatase 114 IU/L (35-105); Anion Gap 17.9 (5-19); Aspartate Amino Transferase 14 U/L (0-32); Blood Urea Nitrogen 9 mg/dL (6-20); Calcium 9.4 mg/dL (8.5-10.5); Carbon Dioxide 21 mmol/L (22-29); Chloride 95 mmol/L (98-107); Globulin 4.5 g/dL (1.3-4.6); Glomerular Filtration Rate 90.1 mL/min (90-130); Glucose 384 mg/dL (65-115); Osmolality Calculated 285 mOsm/kg (285-295); Potassium 3.9 mmol/L (3.5-5.1); Sodium 130 mmol/L (136-145); Total Bilirubin 0.3 mg/dL (0.15-1.2); Total Protein 8.3 g/dL (6.6-8.7)
[2022-01-24 17:00] LABS: Lactic Sepsis W/Reflex 1.1 mmol/L (0.5-2.2)
[2022-01-24] MEDS: iohexol 300 mg/mL 100 mL Btl IV (17:00)
--- NOTE | 2022-01-24 17:29 | PC.NURSE ---
pt returns from ct iv infiltrated and dc'd
[2022-01-24 17:32] LABS: Basophils % 0.6 %; Eosinophils # 0.1 10^3/uL (0.0-0.8); Eosinophils % 0.7 %; Hematocrit 43.1 % (37.0-47.0); Hemoglobin 13.8 g/dL (11.5-15.3); Lymphocytes % 14.1 %; Mean Corpuscular Hemoglobin 29.1 pg (28.0-34.0); Mean Corpuscular Volume 90.9 fl (81-99); Mean Platelet Volume 10.6 fL (7.4-10.4); Monocytes # 0.5 10^3/uL (0.2-0.9); Monocytes % 7.7 %; Neutrophils # 5.36 10^3/uL (1.8-7.7); Neutrophils % 76.5 %; Nucleated Red Blood Cells % 0 %; Platelet Count 215 10^3/cmm (130-400); Red Blood Count 4.74 10^6/uL (4.1-5.3); Red Cell Distribution Width 13.7 % (12.1-15.1)
[2022-01-24] MEDS: ondansetron 2 mg/ML SDV 2 mL 4 MG IVP (17:38)
[2022-01-24 17:40] VITALS: RESP 20
[2022-01-24] MEDS: morphine 4 mg/mL SDV 1 mL IVP (17:40)
[2022-01-24] MEDS: cefTRIAXone 1,000 MG in sodium chloride 0.9% (plus) 50 ML 100 MG IV (17:44)
[2022-01-24 17:58] VITALS: BP 111/57; PULSE 65; RESP 16; O2SAT 97
[2022-01-24 18:24] VITALS: BP 94/53; PULSE 70; RESP 16; O2SAT 94
[2022-01-24 20:25] VITALS: BP 92/60; PULSE 72; RESP 16; O2SAT 95
--- NOTE | 2022-01-27 11:15 | DCPLANNER ---
Addendum entered by Princess Garcia 02/12/22 08:53: manager flight operations was told that patient was supposed to see someone in [facility] for her urology needs. Original Note: manager flight operations had message to schedule a follow up appointment for patient urology. manager flight operations sent patients information to the front staff at urology thru the [employer] messaging system. Patients information will be printed and reviewed. Clinic will call patient with appointment information.
== END 2022-01-24 20:20 | disposition home or self-care (01) ==
PROVIDERS: Physician Assistant; Emergency Provider Nurse Practitioner Family; PCP Internal Medicine
DX: T83.518A Infection and inflammatory reaction due to other urinary catheter, initial encounter (principal); Y73.8 Miscellaneous gastroenterology and urology devices associated with adverse incidents, not elsewhere classified; N30.90 Cystitis, unspecified without hematuria; Z79.891 Long term (current) use of opiate analgesic; N31.9 Neuromuscular dysfunction of bladder, unspecified; G82.50 Quadriplegia, unspecified; S14.109S Unspecified injury at unspecified level of cervical spinal cord, sequela; N13.6 Pyonephrosis
CPT/HCPCS: 51702; 51798; 74176; 80053; 81001; 83605; 85025; 87077; 87086; 87186; 96365; 96375; 99284; J0696; J2270; J2405; Q9967

== ENCOUNTER 2022-02-11 10:42 | Emergency (ER) | payer MEDICARE, MEDICAID, SELFPAY ==
--- NOTE | 2022-02-11 11:10 | CT_ITS ---
WS: [id number] CT ABDOMEN PELVIS TECHNIQUE: Contrast-enhanced CT of the abdomen and pelvis with coronal and sagittal reformatted image s. CLINICAL INFORMATION: eval for pathologies, R abd pain COMPARISON: January 24, 2022 DLP: 1986.[address] scans at [facility] use at least one of these dose optimization techniques: automated e xposure control; mA and/or kV adjustment per patient size (includes targeted exams where dose is matc hed to clinical indication); or iterative reconstruction. FINDINGS: Prior hysterectomy. Diffuse fatty infiltration of the liver. Normal portal vein and splenic vein. Nor mal spleen. Postoperative changes involving the stomach. Normal portal vein and splenic vein. Fatty a trophy of the pancreas. Stable LEFT adrenal adenoma. Celiac and SMA are patent. Bilateral renal corti luiz scarring. RIGHT greater than LEFT lower lobe atelectasis. Dumont catheter. No hydronephrosis in either kidney today. Marked rectosigmoid constipation with recto sigmoid distention. Moderate diffuse colonic constipation. Postoperative changes in the RIGHT lower p cathie small bowel. No evidence of high-grade small or large bowel obstruction. Tiny fat-containing umbilical hernia. CT/CT abdomen pelvis w con* [id number] IMPRESSION: 1. Dumont catheter. No evidence of hydronephrosis. Both ureters are decompresse d. 2. Marked rectosigmoid constipation with distention. Diffuse moderate pancolon ic constipation. 3. Postoperative changes involving the greater curvature stomach. 4. Diffuse fatty infiltration of the liver with hepatomegaly. 5. Prior postoperative changes in the RIGHT lower quadrant small bowel. 6. Normal appendix in the RIGHT lower quadrant. 7. No other significant changes from previous. 8. Bibasilar atelectasis RIGHT greater than LEFT. 9. Prior hysterectomy.
[2022-02-11 11:11] VITALS: BP 126/93; PULSE 78; RESP 18; TEMP 36.6; O2SAT 94; BMI 25.7
--- NOTE | 2022-02-11 11:13 | W.ED.GENADLT ---
HPI - General Adult General: Chief complaint: Abdominal Pain Stated complaint: R QUAD ABD PAIN WITH DISTENSION Time Seen by Provider: 02/11/22 11:02 History of Present Illness: Patient is a 47-year-old female with a history of quadriplegia w/ hx of bladder repair surgery requiring chronic indwelling alfaro (last changed on 01/24/2022), UTI c/b sepsis presenting to the emergency room for evaluation of right-sided abdominal pain/dysuria x 2 days and left-sided ear pain x 2 days. Patient states that she has been having R sided abdominal pain for the last 3 days has noticed dysuria and pain with Alfaro. Patient notes that the Alfaro bag looks more cloudy. In addition, patient reports right-sided flank pain with nausea without vomiting. Patient denies any fever or chills. For the last 3 days, patient also complains of left-sided ear pain. Patient has been receiving some eardrops (no records on file) but cannot recall. Patient denies any neck pain, headache, but reports L sided ear drainage and pain. Onset:3 days of ear pain, 2 days of dysuria and R sided abd pain Duration:ongoing Location:group home Severity:moderate Associated symptoms: Deny chest pain, dyspnea, nausea, rash, palpitations or vomiting Review of Systems Const: Denies: fever(s) or chills Eyes: Denies: change in vision ENMT: Denies: mouth pain Card: Denies: chest pain or palpitations Resp: Denies: dyspnea or non-productive cough GI: Reports: abdominal pain; Denies: nausea, vomiting or diarrhea : Reports: flank pain and dysuria Musc: Denies: extremity pain Skin/Breast: Denies: rash or new lesions Neuro: Denies: weakness in extremities Psych: Reports: other (Normal mood) Raul/Lymph: Denies: easy bruising PFSH ED PFSH: Medical History Chronic indwelling Alfaro catheter Hydronephrosis Neurogenic bladder Perforated abdominal viscus Condition resolved Post-traumatic quadriplegia Recurrent sepsis due to urinary tract infection Surgical History H/O bladder repair surgery H/O cystoscopy H/O partial cystectomy H/O Spinal surgery History of hysterectomy History of partial gastrectomy Family History Other CAD (coronary artery disease) Diabetes Hypertension Social History Alcohol intake: never Household members: spouse Housing: House Marital status: Current occupational status: disabled Physical Exam Const: COMMON NORMALS: alert HENMT: COMMON NORMALS: atraumatic HEAD & SCALP: atraumatic MOUTH: moist mucous membranes not abnormal OTHER: +L EAC edema, TM intact, no mastoid tenderness L side, tragus palpation/traction without pain Eye: COMMON NORMALS: EOMs intact bilaterally and conjunctivae normal CONJUNCTIVA: Yes conjunctivae normal Neck/C-Spine: COMMON NORMALS: full ROM and supple Resp: COMMON NORMALS: normal respiratory effort and clear to auscultation bilaterally AUSCULTATION: clear to auscultation bilaterally Cardio: COMMON NORMALS: regular rate RATE: regular rate GI: COMMON NORMALS: Soft to palpation PALPATION: Yes Soft to palpation OTHER: +abdominal distension, +moderate R sided TTP. NO guarding rebound, guarding, rigidity. +R CVA tenderness to percussion. Neg Lemos/Neg McBurney's point tenderness, no suprabupic tenderness to palpation. Extremity: COMMON NORMALS: full ROM Neuro: SENSORIUM/ORIENTATION: Yes alert MOTOR EXAM: Other motor observations present (+chronic quadriplegia) Psych: COMMON NORMALS: speech normal SPEECH: Yes normal speech MOOD & AFFECT: Yes euthymic mood Course Vital Signs: Vital signs: Vital Signs Temperature 97.8 F 02/11/22 14:00 Pulse Rate 84 02/11/22 17:51 Respiratory Rate 20 H 02/11/22 14:00 Blood Pressure 115/70 02/11/22 14:00 Pulse Oximetry 93 02/11/22 17:51 MDM - General Adult Medical Decision Making 47-year-old female with history of quadriplegia, chronic indwelling Alfaro last changed on 01/24/2022 presenting to the emergency room for evaluation of dysuria, cloudy urine, right side abdominal pain and flank pain. Patient also reports left ear pain. Patient has mild left EAC edema. No drainage visible of the left ear. No mastoid tenderness. + Palpable right side abdominal tenderness with right CVA tenderness. CT abdomen pelvis showed no focal finding other than constipation. White count 8.2. UA consistent with UTI likely E. coli, given nitrate positive. Patient received ceftriaxone in the emergency room. She is able to tolerate p.o. without any difficulty. Alfaro exchanged today prior to discharge. Rx: Cefdinir twice daily for UTI, miralax tabletes for constipation Patient will need close followup with PCP and patient reassures she will follow up. Disposition: Discharge. Patient counseled regarding diagnostic impression, treatment plan. Patient given ED strict return precautions to return for continuation, worsening, or development of new symptoms. Instructed to f/u w/ PCP regarding symptoms today. Patient verbalized understanding. Lab Data : 02/11/22 11:30 02/11/22 12:50 Radiology Impressions Abdomen/Pelvis CT 02/11/22 11:10 IMPRESSION: 1. Alfaro catheter. No evidence of hydronephrosis. Both ureters are decompressed. 2. Marked rectosigmoid constipation with distention. Diffuse moderate pancolonic constipation. 3. Postoperative changes involving the greater curvature stomach. 4. Diffuse fatty infiltration of the liver with hepatomegaly. 5. Prior postoperative changes in the RIGHT lower quadrant small bowel. 6. Normal appendix in the RIGHT lower quadrant. 7. No other significant changes from previous. 8. Bibasilar atelectasis RIGHT greater than LEFT. 9. Prior hysterectomy. Laboratory Results WBC 8.2 10^3/uL (4.0-10.0) 02/11/22 11:30 RBC 4.96 10^6/uL (4.1-5.3) 02/11/22 11:30 Hgb 14.4 g/dL (11.5-15.3) 02/11/22 11:30 Hct 45.3 % (37.0-47.0) 02/11/22 11:30 MCV 91.3 fl (81-99) 02/11/22 11:30 MCH 29.0 pg (28.0-34.0) 02/11/22 11:30 MCHC 31.8 g/dL (30.0-36.0) 02/11/22 11:30 RDW 14.2 % (12.1-15.1) 02/11/22 11:30 Plt Count 271 10^3/cmm (130-400) 02/11/22 11:30 MPV 10.6 fL (7.4-10.4) H 02/11/22 11:30 Neut % (Auto) 74.2 % 02/11/22 11:30 Lymph % (Auto) 17.0 % 02/11/22 11:30 [place] % (Auto) 5.5 % 02/11/22 11:30 Eos % (Auto) 2.3 % 02/11/22 11:30 Baso % (Auto) 0.5 % 02/11/22 11:30 Neut # (Auto) 6.06 10^3/uL (1.8-7.7) 02/11/22 11:30 Lymph # (Auto) 1.4 10^3/uL (0.8-4.8) 02/11/22 11:30 [place] # (Auto) 0.5 10^3/uL (0.2-0.9) 02/11/22 11:30 Eos # (Auto) 0.2 10^3/uL (0.0-0.8) 02/11/22 11:30 Baso # (Auto) 0.0 10^3/uL (0.0-0.1) 02/11/22 11:30 Nucleated RBC % (auto) 0 % 02/11/22 11:30 Nucleated RBCs # 0.0 /100WBC 02/11/22 11:30 Sodium 132 mmol/L (136-145) L 02/11/22 12:50 Potassium 3.4 mmol/L (3.5-5.1) L 02/11/22 12:50 Chloride 98 mmol/L (98-107) 02/11/22 12:50 Carbon Dioxide 24 mmol/L (22-29) 02/11/22 12:50 Anion Gap 13.4 (5-19) 02/11/22 12:50 BUN 8 mg/dL (6-20) 02/11/22 12:50 Creatinine 0.7 mg/dL (0.5-0.9) 02/11/22 12:50 GFR Calculation 89.7 mL/min (90-130) L 02/11/22 12:50 Glucose 418 mg/dL (65-115) H 02/11/22 12:50 Calculated Osmolality 290 mOsm/kg (285-295) 02/11/22 12:50 Lactate 1.4 mmol/L (0.5-2.2) 02/11/22 12:50 Calcium 8.4 mg/dL (8.5-10.5) L 02/11/22 12:50 Total Bilirubin 0.2 mg/dL (0.15-1.2) 02/11/22 12:50 AST 11 U/L (0-32) 02/11/22 12:50 ALT 10 U/L (0-33) 02/11/22 12:50 Alkaline Phosphatase 85 IU/L (35-105) 02/11/22 12:50 Total Protein 6.6 g/dL (6.6-8.7) 02/11/22 12:50 Albumin 3.7 g/dL (3.5-5.2) 02/11/22 12:50 Globulin 2.9 g/dL (1.3-4.6) 02/11/22 12:50 Lipase 16 U/L (13-60) 02/11/22 12:50 Urine Color Colorless (Yellow) 02/11/22 12:50 Urine Appearance Turbid (CLEAR) 02/11/22 12:50 Urine pH 5 (5-7) 02/11/22 12:50 Ur Specific [place] 1.010 (1.005-1.030) 02/11/22 12:50 Urine Protein 1+ (Negative) H 02/11/22 12:50 Urine Glucose (UA) 4+ (Normal) H 02/11/22 12:50 Urine Ketones 1+ (Negative) H 02/11/22 12:50 Urine Blood 3+ (Negative) H 02/11/22 12:50 Urine Nitrate Positive (Negative) H 02/11/22 12:50 Urine Bilirubin Neg (Negative) 02/11/22 12:50 Urine Urobilinogen Neg mg/dL (Negative) 02/11/22 12:50 Ur Leukocyte Esterase 2+ (Negative) H 02/11/22 12:50 Urine RBC Too numerous to cnt /hpf (0-2) H 02/11/22 12:50 Urine WBC Too numerous to cnt /hpf (0-5) H 02/11/22 12:50 Ur Squamous Epith Cells 0-4 /hpf (0-5) H 02/11/22 12:50 Amorphous Sediment 2+ /hpf 02/11/22 12:50 Urine Bacteria 4+ /hpf (NONE) H 02/11/22 12:50 Urine Mucus 2+ /hpf 02/11/22 12:50 Discharge Plan Discharge Patient Disposition: Home Clinical Impression: Abdominal pain, Ear pain, Dysuria, Constipation Condition: Stable Prescriptions: New cefdinir 300 mg capsule 300 mg PO BID 10 Days Qty: 20 0RF ondansetron 4 mg tablet,disintegrating 4 mg PO TID PRN (Reason: nausea and vomiting) 4 Days Qty: 12 0RF Maalox Advanced 1,000-60 mg tablet,chewable 1 tab PO DAILY PRN (Reason: constipation) 60 Days Qty: 60 0RF No Action ascorbic acid (vitamin C) [Vitamin C] 1,000 mg Tablet 1,000 mg PO BID@08,20 0RF methenamine hippurate 1 gram Tablet 1 g PO BID@08,20 0RF Rx Instructions: Clinically indicated ue to recurrent UTI. Ordered by Dr. Culp. magnesium hydroxide [Milk of Magnesia] 400 mg/5 mL Suspension 30 ml PO DAILY PRN (Reason: Constipation) 0RF Rx Instructions: If no BM in 3 days. pantoprazole 40 mg Tablet,Delayed Release (Dr/Ec) 40 mg PO DAILY 0RF nystatin 100,000 unit/gram Cream See Rx Instructions .ROUTE .COMPLEX 0RF Rx Instructions: APPLY TO RED AREA EVERY SHIFT Fleet Enema 19-7 gram/118 mL Enema 118 ml UT DAILY PRN (Reason: Constipation) 0RF lactulose 10 gram/15 mL (15 mL) Solution 30 ml PO TID 0RF sennosides-docusate sodium [Senna Plus] 8.6-50 mg Tablet 2 tab PO BID@08,20 0RF sertraline [Zoloft] 25 mg Tablet 50 mg PO DAILY@08 0RF bisacodyl [Dulcolax (bisacodyl)] 5 mg Tablet,Delayed Release (Dr/Ec) 10 mg PO DAILY PRN (Reason: Constipation) 0RF metoclopramide HCl 10 mg tablet 10 mg PO Q6H PRN (Reason: nausea and vomiting) Qty: 20 0RF pravastatin 40 mg Tablet 40 mg PO BEDTIME 0RF naloxone 0.4 mg/mL Solution 0.4 mg IM Q2M PRN (Reason: overdose) 0RF acetaminophen 500 mg Tablet 500 mg PO Q6H PRN (Reason: Pain) 0RF simethicone 80 mg Tablet,Chewable 80 mg PO .AFTER MEALS 0RF polyethylene glycol 3350 [Miralax] 17 gram/dose powder 17 g PO DAILY PRN (Reason: constipation) 0RF bisacodyl [Dulcolax (bisacodyl)] 10 mg Suppository 10 mg UT DAILY PRN (Reason: Constipation) 0RF Rx Instructions: Give rectally if can't take p/o, if no results from MOM tizanidine 4 mg Tablet 4 mg PO TID@08,14,20 PRN (Reason: unknown) 0RF fentanyl 50 mcg/hr Patch 72 Hour 1 patch TRANSDERMAL Q72H Qty: 5 0RF morphine concentrate 100 mg/5 mL (20 mg/mL) solution 5 mg PO Q4H PRN (Reason: Pain) Qty: 30 0RF alprazolam [Xanax] 0.25 mg Tablet 0.25 mg PO TID PRN (Reason: Anxiety) Qty: 10 0RF ondansetron HCl [Zofran] 4 mg Tablet 4 mg PO Q6H PRN (Reason: Nausea) 0RF Relistor 12 mg/0.6 mL Syringe 6 mg SUBCUT Q3D PRN (Reason: Constipation) 0RF gabapentin 600 mg tablet 1,200 mg PO TID 0RF Debrox 6.5 % Drops See Rx Instructions .ROUTE .COMPLEX 0RF Rx Instructions: 5 drp into the ear(s) three times a day, fill both canals full, let set for 15 min. tid x 3 days then on 4th day flush with warm water. Colace 100 mg Capsule 100 mg PO BID 0RF Discharge Orders: Discharge ED (Routine); Ordered 02/11/22 Ordered By: Alf Lopez Referrals: Sedrick Cruz MD [Primary Care Provider] - Discharge Diet: Advance as tolerated Discharge Activity: Increase activity as tolerated Patient Instructions: Abdominal Pain (ED), Opioid Safety (ED) Activity Restrictions/Additional Instructions: Please come back if you have any worsening abdominal pain, fever or chills, nausea or vomiting, diarrhea, blood in the stool, inability hold down liquid or solids, or any new concerning complaints. Please take miralax for your constipation. Please take your antibiotics as instructed. Watch out for signs of skin changes/redness, mouth redeness or swelling, nausea/vomiting, diarrhea, blood in the urine or any new or concering complaints. Coding Level of Care Code ED Agriculture Consultant for Chg Fwd Exam Comprehensive
[2022-02-11] MEDS: sodium chloride 0.9% 500 ML 999 ML IV (11:45)
[2022-02-11 11:56] LABS: Basophils % 0.5 %; Eosinophils # 0.2 10^3/uL (0.0-0.8); Eosinophils % 2.3 %; Hematocrit 45.3 % (37.0-47.0); Hemoglobin 14.4 g/dL (11.5-15.3); Lymphocytes # 1.4 10^3/uL (0.8-4.8); Mean Corpuscular HGB Conc 31.8 g/dL (30.0-36.0); Mean Corpuscular Volume 91.3 fl (81-99); Mean Platelet Volume 10.6 fL (7.4-10.4); Monocytes # 0.5 10^3/uL (0.2-0.9); Monocytes % 5.5 %; Neutrophils # 6.06 10^3/uL (1.8-7.7); Neutrophils % 74.2 %; Nucleated Red Blood Cells % 0 %; Platelet Count 271 10^3/cmm (130-400); Red Blood Count 4.96 10^6/uL (4.1-5.3); Red Cell Distribution Width 14.2 % (12.1-15.1); White Blood Count 8.2 10^3/uL (4.0-10.0)
[2022-02-11] MEDS: iohexol 350 mg/mL 100 mL Btl IV (12:02)
[2022-02-11 12:49] VITALS: RESP 18; O2SAT 98
[2022-02-11] MEDS: HYDROmorphone 1 mg/mL INJ 1 mL 0.5 MG IVP (12:49)
[2022-02-11] MEDS: ciprofloxacin-dexameth Otic Susp 7.5 mL Btl 4 DROP EAR-LEFT (12:50)
[2022-02-11 13:14] LABS: Glucose Urine UA 4+ (Normal); Ketones Urine 1+ (Negative); Protein Urine 1+ (Negative); Urine Appearance Turbid (CLEAR); Urine Color Colorless (Yellow); pH Urine 5 (5-7)
[2022-02-11 13:15] LABS: Add Urine Culture? Yes; Add Urine Microscopic? YES; Amorphous Sediment Urine 2+ /hpf; Bacteria Urine 4+ /hpf; Bilirubin Urine Neg (Negative); Blood Urine 3+ (Negative); Leukocyte Esterase Urine 2+ (Negative); Mucus Urine 2+ /hpf; Nitrate Urine Positive (Negative); RBC Urine TOO NUMEROUS TO CNT /hpf (0-2); Squamous Epithelial Cell Urine 0-4 /hpf (0-5); Urobilinogen Urine Neg (Negative); WBC Urine TOO NUMEROUS TO CNT /hpf (0-5)
[2022-02-11 13:16] LABS: Lactate (Lactic Acid level) 1.4 mmol/L (0.5-2.2)
[2022-02-11 13:17] LABS: Alanine Aminotransferase 10 U/L (0-33); Albumin Level 3.7 g/dL (3.5-5.2); Alkaline Phosphatase 85 IU/L (35-105); Anion Gap 13.4 (5-19); Aspartate Amino Transferase 11 U/L (0-32); Blood Urea Nitrogen 8 mg/dL (6-20); Calcium 8.4 mg/dL (8.5-10.5); Carbon Dioxide 24 mmol/L (22-29); Chloride 98 mmol/L (98-107); Globulin 2.9 g/dL (1.3-4.6); Glomerular Filtration Rate 89.7 mL/min (90-130); Glucose 418 mg/dL (65-115); Lipase 16 U/L (13-60); Osmolality Calculated 290 mOsm/kg (285-295); Potassium 3.4 mmol/L (3.5-5.1); Sodium 132 mmol/L (136-145); Total Bilirubin 0.2 mg/dL (0.15-1.2); Total Protein 6.6 g/dL (6.6-8.7)
[2022-02-11 14:00] VITALS: BP 115/70; PULSE 78; RESP 20; TEMP 36.6; O2SAT 96
[2022-02-11] MEDS: cefTRIAXone 1,000 MG in sodium chloride 0.9% (plus) 50 ML 100 MG IV (14:02)
[2022-02-11] MEDS: ondansetron 2 mg/ML SDV 2 mL 4 MG IVP (15:02)
[2022-02-11] MEDS: HYDROmorphone 1 mg/mL INJ 1 mL IVP (15:03)
[2022-02-11 17:51] VITALS: PULSE 84; O2SAT 93
--- NOTE | 2022-02-11 20:06 | PC.NURSE ---
1500 CT's completed Meds given as on DEC. Patient sleeps for short naps but wakes complaining of pain and nausea. Patient and [facility] staff reveal this is not new and she has chronic pain and chronic nausea, by history. Dr. Lopez aware. 1700 Alfaro exchanged. Current indwelling alfaro removed without difficulty. Strong smell with sediment and purulent drainage noted Patient tolerated well. New 16fr alfaro placed in aseptic/sterile fashion. Cleansed with Betadine and place on first and only attempt, bulb inflated to 10cc. 1800 Report called to KRIS Roche at [facility]. EMS called for transfer. Patient is stable throughout ED stay.
== END 2022-02-11 18:03 | disposition home or self-care (01) ==
PROVIDERS: Emergency Provider Emergency Medicine; PCP Internal Medicine
DX: N39.0 Urinary tract infection, site not specified (principal); R10.9 Unspecified abdominal pain; H92.02 Otalgia, left ear; K59.00 Constipation, unspecified; G82.50 Quadriplegia, unspecified; N31.9 Neuromuscular dysfunction of bladder, unspecified
CPT/HCPCS: 74177; 80053; 81001; 83605; 83690; 85025; 87077; 87086; 87186; 96365; 96375; 96376; 99284; J0696; J1170; J2405; J3490; J7040; Q9967

== ENCOUNTER 2022-03-06 07:57 | Inpatient (IN) | payer MEDICARE, MEDICAID, SELFPAY ==
[2022-03-06] VITALS (9 sets, daily range): BP systolic 100–144; BP diastolic 63–87; PULSE 76–132; RESP 15–20; TEMP 36.7–38.9; O2SAT 91–100; BMI 24.3
--- NOTE | 2022-03-06 07:59 | ED_ITS ---
HPI - Headache General: Chief Complaint: Headache Stated Complaint: HEADACHE Time Seen by Provider: 03/06/22 07:58 History of Present Illness: Ms. Morales is a 47-year-old lady with complex past medical history including quadriplegia who presents to the emergency department due to chills and headache. She reports yesterday being diagnosed with a urinary tract infection though per chart review this was on 03/03. She was initiated on antibiotics but continues to have symptoms. She endorses chills yesterday which were significant overnight and limited to her ability to sleep. Additionally she has a frontal headache which is throbbing in quality and moderate to severe intensity. She notes worsening with bright lights and loud noises. She denies history of migraines. Overall course of symptoms has persisted. No other specific changes in health, exacerbating, or alleviating factors identified. Onset (ago): hour(s) Onset description: gradually Location: frontal Severity: moderate Quality & Timing: throbbing Exacerbating factors: light and noise Review of Systems General: Reports: 10 or more systems reviewed and unremarkable except in HPI and below PFSH ED PFSH: Medical History Chronic indwelling [place] catheter Hydronephrosis Neurogenic bladder Perforated abdominal viscus Condition resolved Post-traumatic quadriplegia Recurrent sepsis due to urinary tract infection Surgical History H/O bladder repair surgery H/O cystoscopy H/O partial cystectomy H/O Spinal surgery History of hysterectomy History of partial gastrectomy Family History Other CAD (coronary artery disease) Diabetes Hypertension Social History Alcohol intake: never Household members: spouse Housing: House Marital status: Current occupational status: disabled Physical Exam Const: COMMON NORMALS: alert GENERAL APPEARANCE: cooperative, well developed and ill appearing (Mildly) HENMT: COMMON NORMALS: normocephalic and atraumatic HEAD & SCALP: normocephalic and atraumatic Eye: COMMON NORMALS: conjunctivae normal CONJUNCTIVA: Yes conjunctivae normal SCLERA: sclerae normal Neck/C-Spine: COMMON NORMALS: supple GENERAL: Yes trachea midline Resp: EFFORT & INSPECTION: Yes able to speak in complete sentences Cardio: COMMON NORMALS: regular rate and regular rhythm RATE: regular rate RHYTHM: regular rhythm GI: COMMON NORMALS: Soft to palpation PALPATION: Yes Soft to palpation and No Tenderness to palpation present (GI) PERCUSSION: normal to percussion Extremity: GENERAL: Yes normal exam except as noted and No edema Neuro: SENSORIUM/ORIENTATION: Yes alert and No Orientation impaired Psych: COMMON NORMALS: mental status grossly normal and Normal thought process present THOUGHT PROCESS: Normal thought process present Course ED course: - Patient was seen and evaluated by me at bedside - Patient placed on cardiac monitors, IV access obtained - Initial evaluation notable for exam as above, somewhat ill-appearing - Labs and xrays personally interpreted by me -Fluids, symptom treatment ordered. - Labs notable for no leukocytosis, normal hemoglobin. Metabolic panel with evidence of mild dehydration, hyperglycemia noted. Urinalysis concerning for urinary tract infection. - Imaging notable for no lobar consolidation or pneumothorax. CT head negative for acute intracranial pathology to explain headache. - Upon serial reexamination after treatment the patient was mildly improved. - Based on patient history, evaluation, and testing as interpreted the most likely cause of the patient's condition is urinary tract infection. Upon review of chart including prior cultures patient has a history of ESBL and essentially has only IV options for appropriate treatment of symptoms. I did discuss possibility of tetracycline based therapy the patient reports history of treatment failure with doxycycline. Therefore, IV antibiotics ordered for patient's worsening urinary tract infection. - The results of ED evaluation were discussed with the patient including plan for admission due to requirement for level of care not available if discharged to prevent significant worsening/deterioration. - Admitting service was contacted and Dr Robins with the hospitalist service agreed to admit the patient - Patient was admitted without further deterioration or significant events. Note: Click bubbles or prepopulated gordon in note writing are used for assistance with data collection and billing and are inherently more limited than narrative and other text portions of this note. Please use narrative for additional clinical history and defer to narrative/free test for any case of contradictory information. If information appears in only free text or click bubble it should be considered present or absent as reported. Please contact note auto service writer for clarifications of clinical information or contradictory information. MDM is a brief summary, contradictory or erroneous seeming information should be clarified and full note should be reviewed. Vital Signs: Vital signs: Vital Signs Temperature 98.5 F 03/11/22 04:00 Pulse Rate 69 03/11/22 04:00 Respiratory Rate 17 03/11/22 04:00 Blood Pressure 95/61 03/11/22 04:00 Pulse Oximetry 93 03/11/22 04:00 MDM - Headache Medical Decision Making 47-year-old lady with complex past medical history presenting to the emergency department due to generalized symptoms in the context of recent diagnosis of UTI. Patient has history of ESBL and requires IV antibiotics for treatment of urinary tract infection. Medical Records I reviewed the patient's medical records. Lab Data I reviewed the patient's lab results. : 03/08/22 04:10 03/09/22 04:13 Radiology Impressions Chest X-Ray 03/06/22 08:16 IMPRESSION: No acute cardiopulmonary abnormality identified. Head CT 03/06/22 08:16 IMPRESSION: 1. No acute intracranial hemorrhage or edema. 2. 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 This area is partially obscured by artifact from the occipital cervical fusion. Abdomen/Pelvis CT 03/07/22 09:51 IMPRESSION: 1. Severe diffuse constipation with rectal impaction, rectal diameter measures up to 7 cm in diameter. 2. No free air. 3. No ascites. 4. Postsurgical changes in the stomach and distal small bowel are stable. No change in position of the sutures. 5. Normal appendix. KUB X-Ray 03/07/22 16:28 IMPRESSION: Abnormally dilated small bowel loops. Chest CTA 03/08/22 04:34 IMPRESSION: 1. No pulmonary embolism identified. 2. Bibasilar atelectasis. Laboratory Results WBC 4.5 10^3/uL (4.0-10.0) 03/06/22 09:00 RBC 4.90 10^6/uL (4.1-5.3) 03/06/22 09:00 Hgb 14.2 g/dL (11.5-15.3) 03/06/22 09:00 Hct 44.0 % (37.0-47.0) 03/06/22 09:00 MCV 89.8 fl (81-99) 03/06/22 09:00 MCH 29.0 pg (28.0-34.0) 03/06/22 09:00 MCHC 32.3 g/dL (30.0-36.0) 03/06/22 09:00 RDW 13.7 % (12.1-15.1) 03/06/22 09:00 Plt Count 176 10^3/cmm (130-400) 03/06/22 09:00 MPV 10.5 fL (7.4-10.4) H 03/06/22 09:00 Neut % (Auto) 87.8 % 03/06/22 09:00 Lymph % (Auto) 4.4 % 03/06/22 09:00 [place] % (Auto) 4.6 % 03/06/22 09:00 Eos % (Auto) 2.4 % 03/06/22 09:00 Baso % (Auto) 0.4 % 03/06/22 09:00 Neut # (Auto) 3.97 10^3/uL (1.8-7.7) 03/06/22 09:00 Lymph # (Auto) 0.2 10^3/uL (0.8-4.8) L 03/06/22 09:00 [place] # (Auto) 0.2 10^3/uL (0.2-0.9) 03/06/22 09:00 Eos # (Auto) 0.1 10^3/uL (0.0-0.8) 03/06/22 09:00 Baso # (Auto) 0.0 10^3/uL (0.0-0.1) 03/06/22 09:00 Nucleated RBC % (auto) 0 % 03/06/22 09:00 Nucleated RBCs # 0.0 /100WBC 03/06/22 09:00 Sodium 129 mmol/L (136-145) L 03/06/22 09:00 Potassium 3.7 mmol/L (3.5-5.1) 03/06/22 09:00 Chloride 95 mmol/L (98-107) L 03/06/22 09:00 Carbon Dioxide 22 mmol/L (22-29) 03/06/22 09:00 Anion Gap 15.7 (5-19) 03/06/22 09:00 BUN 8 mg/dL (6-20) 03/06/22 09:00 Creatinine 0.6 mg/dL (0.5-0.9) 03/06/22 09:00 GFR Calculation 107.2 mL/min (90-130) 03/06/22 09:00 Glucose 369 mg/dL (65-115) H 03/06/22 09:00 POC Glucose 230 mg/dL (70-110) H 03/06/22 13:55 Calculated Osmolality 281 mOsm/kg (285-295) L 03/06/22 09:00 Lactic Acid 1.2 mmol/L (0.5-2.2) 03/06/22 09:00 Calcium 9.3 mg/dL (8.5-10.5) 03/06/22 09:00 Total Bilirubin 0.3 mg/dL (0.15-1.2) 03/06/22 09:00 AST 18 U/L (0-32) 03/06/22 09:00 ALT 18 U/L (0-33) 03/06/22 09:00 Alkaline Phosphatase 100 IU/L (35-105) 03/06/22 09:00 Total Protein 7.3 g/dL (6.6-8.7) 03/06/22 09:00 Albumin 3.7 g/dL (3.5-5.2) 03/06/22 09:00 Globulin 3.6 g/dL (1.3-4.6) 03/06/22 09:00 Urine Color Yellow (Yellow) 03/06/22 12:50 Urine Appearance Clear (CLEAR) 03/06/22 12:50 Urine pH 6.5 (5-7) 03/06/22 12:50 Ur Specific [place] 1.010 (1.005-1.030) 03/06/22 12:50 Urine Protein Neg (Negative) 03/06/22 12:50 Urine Glucose (UA) 1+ (Normal) H 03/06/22 12:50 Urine Ketones Negative (Negative) 03/06/22 12:50 Urine Blood 2+ (Negative) H 03/06/22 12:50 Urine Nitrate Negative (Negative) 03/06/22 12:50 Urine Bilirubin Neg (Negative) 03/06/22 12:50 Urine Urobilinogen Norm mg/dL (Negative) 03/06/22 12:50 Ur Leukocyte Esterase 2+ (Negative) H 03/06/22 12:50 Urine RBC 25-40 /hpf (0-2) H 03/06/22 12:50 Urine WBC 40-55 /hpf (0-5) H 03/06/22 12:50 Ur Squamous Epith Cells 0-4 /hpf (0-5) H 03/06/22 12:50 Amorphous Sediment Not Reportable 03/06/22 12:50 Urine Bacteria 2+ /hpf (NONE) H 03/06/22 12:50 Urine Mucus 1+ /hpf 03/06/22 12:50 Urine Osmolality 508 mOsm/kg (50-1200) 03/06/22 15:24 Ur Random Sodium 55 mmol/L 03/06/22 15:24 Ur Random Potassium 36 mmol/L 03/06/22 15:24 Ur Random Chloride 56 mmol/L 03/06/22 15:24 Discharge Plan Discharge Patient Disposition: Placed in Observation Admit Provider: Gwen Robins Clinical Impression: UTI (urinary tract infection), History of ESBL E. coli infection Coding Level of Care Code ED Bottle Label Inspector for Chg Fwd Exam Comprehensive
--- NOTE | 2022-03-06 08:16 | XRR_ITS ---
PROCEDURE INFORMATION: Exam: XR Chest Exam date and time: 03/06/2022 8:23 AM Age: 47 years old Clinical indication: Cough and shortness of breath; Additional info: Cough, chills TECHNIQUE: Imaging protocol: XR of the chest. Views: 1 view. COMPARISON: CR XR chest 1V portable [id number] 07/13/2021 1:13 AM FINDINGS: Lungs: The lung parenchyma is clear. Pleural spaces: No pneumothorax. No pleural effusion. Heart/Mediastinum: The cardiomediastinal silhouette is within normal limits. Bones/joints: Partially visualized cervical spinal fixation hardware noted. Intraperitoneal space: Surgical clips in the left upper quadrant again noted. XR/XR chest 1V portable [id number] IMPRESSION: No acute cardiopulmonary abnormality identified.
--- NOTE | 2022-03-06 08:16 | CT_ITS ---
WS: [id number] CT HEAD NONCONTRAST HISTORY: headache TECHNIQUE: Contiguous axial imaging performed through the brain in 2.5 mm imaging. Bone and soft tiss ue windows. Sagittal and coronal reformats reviewed. All CT scans at [facility] use at least one of these dose optimization techniques: automated exposure control; mA and/or kV adjustment per pa tient size (includes targeted exams where dose is matched to clinical indication); or iterative recon struction. DLP: 995.19 mGy.cm COMPARISON: 12/18/2018 No acute intracranial hemorrhage, midline shift or mass effect. Focal area of atrophy and encephalomalacia in the LEFT cerebellum was also present on 12/18/2018. Cons istent with a prior infarct with volume loss. This area is being partially obscured by artifact from the occipital cervical fusion hardware. Ventricles: Normal size with no hydrocephalus. No inferior displacement of cerebellar tonsils. Paranasal sinuses: As visualized are clear. Mastoid air cells: Well pneumatized. Calvarium and scalp: Extensive fusion hardware beginning in the occipital region extending into the u pper cervical spine. Does not appear to change since the prior study. CT/CT head wo con* [id number] IMPRESSION: 1. No acute intracranial hemorrhage or edema. 2. 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 This area is partially obscured by artifact from the occipital cervical fusion.
[2022-03-06 09:17] LABS: Basophils % 0.4 %; Eosinophils # 0.1 10^3/uL (0.0-0.8); Eosinophils % 2.4 %; Hemoglobin 14.2 g/dL (11.5-15.3); Lymphocytes # 0.2 10^3/uL (0.8-4.8); Lymphocytes % 4.4 %; Mean Corpuscular HGB Conc 32.3 g/dL (30.0-36.0); Mean Corpuscular Volume 89.8 fl (81-99); Mean Platelet Volume 10.5 fL (7.4-10.4); Monocytes # 0.2 10^3/uL (0.2-0.9); Monocytes % 4.6 %; Neutrophils # 3.97 10^3/uL (1.8-7.7); Neutrophils % 87.8 %; Nucleated Red Blood Cells % 0 %; Platelet Count 176 10^3/cmm (130-400); Red Cell Distribution Width 13.7 % (12.1-15.1); White Blood Count 4.5 10^3/uL (4.0-10.0)
[2022-03-06] MEDS: sodium chloride 0.9% 1,000 ML 999 ML IV ×2 (09:17→15:11)
[2022-03-06] MEDS: metoclopramide 5 mg/mL SDV 2 mL 10 MG IVP (09:19)
[2022-03-06] MEDS: diphenhydrAMINE 50 mg/mL SDV 1mL 25 MG IVP (09:21)
[2022-03-06] MEDS: ketorolac 30 mg/mL INJ 15 MG IVP (09:22)
[2022-03-06 09:32] LABS: Lactic Sepsis W/Reflex 1.2 mmol/L (0.5-2.2)
[2022-03-06 09:33] LABS: Alanine Aminotransferase 18 U/L (0-33); Albumin Level 3.7 g/dL (3.5-5.2); Alkaline Phosphatase 100 IU/L (35-105); Anion Gap 15.7 (5-19); Aspartate Amino Transferase 18 U/L (0-32); Blood Urea Nitrogen 8 mg/dL (6-20); Calcium 9.3 mg/dL (8.5-10.5); Carbon Dioxide 22 mmol/L (22-29); Chloride 95 mmol/L (98-107); Globulin 3.6 g/dL (1.3-4.6); Glomerular Filtration Rate 107.2 mL/min (90-130); Glucose 369 mg/dL (65-115); Osmolality Calculated 281 mOsm/kg (285-295); Potassium 3.7 mmol/L (3.5-5.1); Sodium 129 mmol/L (136-145); Total Bilirubin 0.3 mg/dL (0.15-1.2); Total Protein 7.3 g/dL (6.6-8.7)
[2022-03-06 09:35] LABS: Glucose Point of Care 366 mg/dL (70-110)
[2022-03-06] MEDS: insulin regular-human 100 units/1 mL 10 UNIT IVP (10:24)
[2022-03-06] MEDS: valproic acid inj 500 MG in sodium chloride 0.9% 50 ML 110 MG IV (11:17)
[2022-03-06 13:58] LABS: Glucose Point of Care 230 mg/dL (70-110)
[2022-03-06 14:28] LABS: Bilirubin Urine Neg (Negative); Blood Urine 2+ (Negative); Glucose Urine UA 1+ (Normal); Ketones Urine Negative (Negative); Leukocyte Esterase Urine 2+ (Negative); Nitrate Urine Negative (Negative); Protein Urine Neg (Negative); Urine Appearance Clear (CLEAR); Urine Color Yellow (Yellow); Urobilinogen Urine Norm (Negative); pH Urine 6.5 (5-7)
[2022-03-06 14:29] LABS: Add Urine Microscopic? YES
[2022-03-06 14:36] LABS: Bacteria Urine 2+ /hpf; Mucus Urine 1+ /hpf; RBC Urine 25-40 /hpf (0-2); Squamous Epithelial Cell Urine 0-4 /hpf (0-5); WBC Urine 40-55 /hpf (0-5)
[2022-03-06 14:37] LABS: Add Urine Culture? Yes
[2022-03-06] MEDS: enoxaparin 40 mg/0.4 mL Syringe SUBCUT (16:34)
[2022-03-06] MEDS: sodium chloride 0.9% 1,000 ML 75 ML IV ×2 (16:34→20:32)
--- NOTE | 2022-03-06 16:52 | PC.NURSE ---
Addendum entered by Eva Crooks RN 03/06/22 18:17: Room clean and clutter free with soft touch call light in reach. Original Note: Patient AAOx4 with elevated HR and temp (see chart), has what appears to be psoriasis over face and trunk. Chronic alfaro in place and patent. BUE contractured, and BLE typically uses boots to assist in continuation of contractures but did not bring to hospital. C/o pain and being hungry. BLE swollen 2+. Sacrum red and blanchable.
[2022-03-06] MEDS: fentaNYL 50 mcg Patch 1 PATCH TRANSDERMA (17:09)
[2022-03-06 17:20] LABS: Glucose Point of Care 237 mg/dL (70-110)
[2022-03-06] MEDS: pregabalin 50 mg Capsule PO (17:27)
[2022-03-06] MEDS: simethicone 80 mg Chew PO (17:28)
--- NOTE | 2022-03-06 18:33 | ECG_ITS ---
[facility] Test Date: 2022-03-06 Pat Name: Rosanne Morales Department: Room: 269 Gender: Female [employer]itor [employer]: : 1975 Requested By: Gwen Robins Order Number: [id number] Helen MD: Ellen Kincaid M.D. Measurements Intervals Jones Rate: 122 P: 31 MS: 108 QRS: 28 QRSD: 85 T: 31 QT: 337 QTc: 482 Interpretive Statements SINUS TACHYCARDIA WITH SHORT MS INTERVAL POSSIBLE RIGHT VENTRICULAR CONDUCTION DELAY [RSR (QR) IN V1/V2] NONSPECIFIC ST & T-WAVE ABNORMALITY ABNORMAL RHYTHM ECG Compared to ECG 07/13/2021 03:28:36 Short MS interval now present T-wave abnormality now present Sinus rhythm no longer present Electronically Signed On 03-07-2022 0:23:27 CDT by Ellen Kincaid M.D. [id number]
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
[2022-03-06] MEDS: atorvastatin 40 mg Tablet 20 MG PO (20:32)
[2022-03-06] MEDS: sennosides-docusate Tablet 2 TAB PO (20:33)
[2022-03-06] MEDS: lactulose oral liq 20 gm/30 mL UDC PO (20:33)
[2022-03-06] MEDS: ascorbic acid 500 mg Tablet 1000 MG PO (20:33)
[2022-03-06] MEDS: tizanidine 4 mg Tablet PO (20:40)
[2022-03-06] MEDS: acetaminophen 500 mg Tablet PO (20:41)
[2022-03-06] MEDS: insulin lispro 100 unit/1 mL SUBCUT (21:34)
[2022-03-06 21:37] LABS: D Dimer 2.12 ug/mIFEU (0-0.59)
[2022-03-06 21:39] LABS: C Reactive Protein 98.7 mg/L (0.0-4.9)
[2022-03-07] VITALS (9 sets, daily range): BP systolic 91–116; BP diastolic 56–75; PULSE 80–111; RESP 15–18; TEMP 36.7–37.5; O2SAT 90–95
[2022-03-07] MEDS: metoclopramide 10 mg Tablet PO ×2 (04:00→13:31)
[2022-03-07] MEDS: sodium chloride 0.9% 1,000 ML 75 ML IV ×3 (04:01→22:13)
[2022-03-07 05:21] LABS: Basophils % 0.9 %; Eosinophils # 0.1 10^3/uL (0.0-0.8); Eosinophils % 3.6 %; Hematocrit 38.3 % (37.0-47.0); Hemoglobin 12.1 g/dL (11.5-15.3); Lymphocytes # 0.8 10^3/uL (0.8-4.8); Mean Corpuscular HGB Conc 31.6 g/dL (30.0-36.0); Mean Corpuscular Hemoglobin 29.2 pg (28.0-34.0); Mean Corpuscular Volume 92.5 fl (81-99); Monocytes # 0.4 10^3/uL (0.2-0.9); Neutrophils # 1.92 10^3/uL (1.8-7.7); Neutrophils % 57.9 %; Nucleated Red Blood Cells % 0 %; Platelet Count 168 10^3/cmm (130-400); Red Blood Count 4.14 10^6/uL (4.1-5.3); Red Cell Distribution Width 14.4 % (12.1-15.1); White Blood Count 3.3 10^3/uL (4.0-10.0)
[2022-03-07 05:40] LABS: Blood Urea Nitrogen 11 mg/dL (6-20); Calcium 8.1 mg/dL (8.5-10.5); Carbon Dioxide 19 mmol/L (22-29); Chloride 101 mmol/L (98-107); Glomerular Filtration Rate 76.9 mL/min (90-130); Glucose 310 mg/dL (65-115); Magnesium 2.1 mg/dL (1.7-2.3); Osmolality Calculated 285 mOsm/kg (285-295); Sodium 132 mmol/L (136-145)
[2022-03-07 05:42] LABS: Anion Gap 15.6 (5-19); Potassium 3.6 mmol/L (3.5-5.1)
[2022-03-07] MEDS: ALPRAZolam 0.5 mg Tablet 0.25 MG PO ×3 (08:38→22:12)
[2022-03-07] MEDS: tizanidine 4 mg Tablet PO ×3 (08:38→20:02)
[2022-03-07] MEDS: ondansetron 4 MG Tablet PO (08:38)
[2022-03-07] MEDS: lactulose oral liq 20 gm/30 mL UDC PO ×2 (08:38→20:02)
[2022-03-07] MEDS: insulin lispro 100 unit/1 mL SUBCUT ×4 (08:39→22:03)
[2022-03-07] MEDS: ascorbic acid 500 mg Tablet 1000 MG PO ×2 (08:39→20:02)
[2022-03-07] MEDS: pregabalin 50 mg Capsule PO ×2 (08:39→17:48)
[2022-03-07] MEDS: pantoprazole DR 40 mg Tablet PO (08:39)
[2022-03-07] MEDS: sennosides-docusate Tablet 2 TAB PO ×2 (08:39→20:02)
[2022-03-07] MEDS: sertraline 50 mg Tablet PO (08:39)
[2022-03-07] MEDS: simethicone 80 mg Chew PO ×3 (08:39→17:48)
[2022-03-07 08:59] LABS: Glucose Point of Care 308 mg/dL (70-110)
[2022-03-07 08:59] LABS: Glucose Point of Care 285 mg/dL (70-110)
[2022-03-07 08:59] LABS: Glucose Point of Care 263 mg/dL (70-110)
--- NOTE | 2022-03-07 09:13 | PC.CHAP ---
Pastoral Care Encounter/Spiritual Assessment Type of Contact [] Declined triage nurse visit [] Patient/Family/Request visit [] Outpatient visit [] Follow-up visit [] Physician referral [] Code/Alert [x] Routine visit [] Staff referral [] Actively dying [] Patient sleeping [] Family support [] [] Out of room [] Palliative care [] [x] Receiving care in room [] Pre-surgical visit [] Trauma [] Long length of stay [] ICU visit [] Other: Relational/Emotional Strength [] Patient feels connected with others/family/visitors/staff [] Distress [] Loneliness/isolation [] Abandonment Spirituality of Patient [] Person of Susan [] Attends Zoroastrian of their Susan [] Believes in Prayer [] Reads Bible or Jainism materials [] There are Spiritual issues to be addressed Material Handling Supervisor Interventions [] Prayer [] Active listening [] Non-anxious presence [] Spiritual/emotional support [] Crisis/trauma care [] Spiritual counseling [] Bereavement support [] Provided bereavement packet [] Provided Bible/devotional materials [] Provided toy/stuffed animal, coloring book to patient or family member [] Provided Communion [] Anointing/Bend [] Salvation [x] Completed spiritual assessment [] Other: Impact on Illness or Injury [] Angry [] Fearful [] Anxious [] Often cries [] Exhaustion [] Unable to work [] Unable to attend moravian [] Unable to walk/stand [] Unable to read [] Unable to drive [] Unable to eat/drink [] Unable to sleep [] Unable to be with family [] Patient intubated [] Other: Summary Time spent with patient
--- NOTE | 2022-03-07 09:51 | CT_ITS ---
WS: [id number] CT ABDOMEN AND PELVIS NONCONTRAST HISTORY: distention, n/v, abdominal pain TECHNIQUE: Imaging performed through the abdomen and pelvis. Coronal and sagittal reformats are submi tted. All CT scans at [facility] use at least one of these dose optimization techniques: auto mated exposure control; mA and/or kV adjustment per patient size (includes targeted exams where dose is matched to clinical indication); or iterative reconstruction. DLP: 1367.54 mGy.cm COMPARISON: 02/11/2022 Lower thorax: New mild dependent changes at the lung bases posteriorly. Heart size is normal. No hiat al hernia. Liver: Normal size liver. No mass or bile duct dilatation. Gallbladder: Normal gallbladder. Pancreas: Normal size and attenuation. Normal pancreatic duct. No pancreatitis or mass. Spleen: Normal. Adrenal glands: Mild thickening of the LEFT adrenal gland similar to prior studies. May be a small ad enoma. Right kidney: Mild cortical scarring. Nonobstructing 2 mm calcification lower pole. No hydronephrosis . Left kidney: Mild cortical thinning in scarring. No obstruction. There is an extrarenal pelvis. No ur eteral calcification. Aorta: Mild atherosclerosis abdominal aorta with no aneurysm. No free fluid, intraperitoneal air or significant lymphadenopathy. GI tract: Postoperative clips along the greater curvature of the stomach are similar to prior studies . No obstruction. No dilatation of the small bowel. There is marked reduced fecal retention and obsti pation throughout the colon. There is severe rectal retention of fecal material. Distal colon measure s at least 7 cm in diameter. The appendix is normal. Additional postoperative clips are noted within the RIGHT lower quadrant associated with the small bowel. Abdominal wall: Negative. No hernia. Pelvis: No free fluid or adenopathy. Prior hysterectomy. Osseous structures: No destructive bone lesions. Mild synovial thickening at the hip joints bilateral ly, RIGHT greater than LEFT. No acute interval change. CT/CT abdomen pelvis wo con [id number] IMPRESSION: 1. Severe diffuse constipation with rectal impaction, rectal diameter measures up to 7 cm in diameter. 2. No free air. 3. No ascites. 4. Postsurgical changes in the stomach and distal small bowel are stable. No c hange in position of the sutures. 5. Normal appendix.
[2022-03-07 11:35] LABS: Glucose Point of Care 265 mg/dL (70-110)
[2022-03-07] MEDS: polyethylene glycol 3350 Pkt 17 gm PO (13:31)
[2022-03-07] MEDS: methylnaltrexone 12 /0.6 mL INJ 6 MG SUBCUT (13:31)
--- NOTE | 2022-03-07 14:33 | P.PN_ITS ---
Subjective Subjective: Seen this AM. Patient complains of a little bit of shortness of breath but is otherwise saturating well on room air. She states that shortness of breath came on this morning. She is not really wheezing at this time either. She says she did not take any of her home medications yesterday and does feel constipated. She does have right lower quadrant pain which has been chronic for her and it was present at previous admissions as well. Patient also had a fever last night with T-max of 102. She has been on imipenem since admission. Patient did report nausea and vomiting to be this morning. She states she vomited right after having breakfast. Vitals/I&O/Wt Last Vital Signs Temp 98.1 F 03/07/22 12:43 Pulse 85 03/07/22 12:43 Resp 15 03/07/22 12:43 BP 115/70 03/07/22 12:43 Pulse Ox 91 03/07/22 12:43 03/06/22 03/07/22 03/07/22 22:59 06:59 14:59 Intake Total 2495 / 2495 1298.75 / 3793.75 1717.5 / 1717.5 Output Total 625 / 625 Balance 1870 / 1870 1298.75 / 3168.75 1717.5 / 1717.5 Weight last 48 hrs Weight 64.41 kg Physical Exam Narrative: General: Alert oriented x3, patient seen laying in bed appearing comfortable, slightly anxious. HEENT: Normocephalic, atraumatic, EOMI, breathing normally no acute respiratory distress. Cardio: Regular rate rhythm, normal S1-S2, no murmurs Respiratory: No wheezes no rhonchi noted, clear to auscultation bilaterally. GI: Abdomen slightly firm and distended, no guarding or rigidity, nontender to palpation Behavior: Appropriate and cooperative Extremities: Trace lower extremity edema, trace upper extremity edema bilaterally, quadriplegia -I will go back and examine patient's decubitus ulcer with the help of the nurse and add addendum to this document. Data : 03/07/22 04:49 03/07/22 04:49 Micro: Microbiology 03/06/22 10:10 Blood Culture - Preliminary Blood NEGATIVE TO DATE 03/06/22 09:00 Blood Culture - Preliminary Blood NEGATIVE TO DATE A&P Assessment and plan (1) Abdominal pain: Status: Acute Qualifiers: Abdominal location: periumbilical Qualified Code(s): R10.33 - Periumbilical pain (2) Hyperglycemia: Status: Acute (3) UTI (urinary tract infection): Status: Acute (4) History of ESBL E. coli infection: Status: Acute (5) PVD (peripheral vascular disease): Status: Acute (6) Quadriplegia: Status: Acute (7) Abdominal pain determined by examination: Status: Resolved (8) Sacral decubitus ulcer, stage IV: Status: Acute (9) Chronic indwelling Dumont catheter: Status: Acute (10) Neurogenic bladder: Status: Acute (11) Post-traumatic quadriplegia: Status: Acute Plan #Acute on chronic UTI, history of ESBL #Sinus tachycardia secondary to fever #Decubitus ulcer present on admission #Headache at admission most likely migraine. #Chronic right lower quadrant pain #Quadriparesis #Severe constipation #Diabetes mellitus type 2, insulin-dependent -Patient had a fever 102 overnight. No leukocytosis present. Sputum culture gram stain pending, blood culture pending ? Continue imipenem every 6 hours. Eventually at discharge she will need to have ertapenem daily to complete 7 days ? Tylenol 650 oral as needed for fever ? We will check CT abdomen for any underlying pathology as on physical exam there is mild distention and some rigidity present ? Continue home medications for bowel regimen. ? Lovenox for DVT prophylaxis ? D-dimer elevated. Will rule out PE since patient also complaining of shortness of breath at this time and she is high risk for such an event. -Lantus 10 daily plus sliding scale -Zofran for nausea ? Clear liquid diet for now -We will BladderScan patient and flush Dumont. We will also replace the Dumont. Full code Attestations Medical Necessity Statement*: Will require inpatient stay for IV antibiotics for UTI. Still febrile. Coding Level of Care Code Acute Coordinator Mining Products for [facility] Diagnoses Abdominal pain R10.33 Abdominal location: periumbilical Hyperglycemia R73.9 UTI (urinary tract infection) N39.0 History of ESBL E. coli infection Z86.19 PVD (peripheral vascular disease) I73.9 Quadriplegia G82.50 Abdominal pain determined by examination R10.9 Sacral decubitus ulcer, stage IV L89.154 Chronic indwelling Dumont catheter Z96.0 Neurogenic bladder N31.9 Post-traumatic quadriplegia G82.50
--- NOTE | 2022-03-07 16:28 | XRR_ITS ---
PROCEDURE INFORMATION: Exam: XR Abdomen Exam date and time: 03/07/2022 9:27 PM Age: 47 years old Clinical indication: Constipation and fever and nausea and vomiting; Patient HX: C/O constipation, nausea, vomiting 03/07/22; Additional info: Impaction TECHNIQUE: Imaging protocol: XR of the abdomen. Views: Frontal supine view of the abdomen. 1 View. COMPARISON: CT abdomen pelvis con [id number] 03/07/2022 10:17 AM FINDINGS: Gastrointestinal tract: Abnormally dilated small bowel loops noted in the right and mid abdomen. The entirety of the upper abdomen is not included in the field of view. Intraperitoneal space: Postsurgical changes in the left upper quadrant noted. Bones/joints: Unremarkable. XR/XR KUB portable [id number] IMPRESSION: Abnormally dilated small bowel loops.
[2022-03-07 16:35] LABS: Potassium, Radom Urine 36 mmol/L; Urine Random Chloride 56 mmol/L; Urine Random Sodium 55 mmol/L
[2022-03-07] MEDS: enoxaparin 40 mg/0.4 mL Syringe SUBCUT (17:11)
[2022-03-07 17:34] LABS: Glucose Point of Care 186 mg/dL (70-110)
[2022-03-07] MEDS: morphine 10 mg/0.5 mL oral liq UD 5 MG PO (17:48)
[2022-03-07] MEDS: docusate sodium 100 mg Capsule PO (17:48)
[2022-03-07] MEDS: nystatin cream 30 gm 1 APPLIC TOPICAL (18:02)
[2022-03-07] MEDS: acetaminophen 500 mg Tablet PO (20:01)
[2022-03-07] MEDS: gabapentin 400 mg Capsule 1200 MG PO (20:02)
[2022-03-07] MEDS: atorvastatin 40 mg Tablet 20 MG PO (20:02)
[2022-03-07] MEDS: insulin glargine 100 units/1 mL 10 UNIT SUBCUT (20:03)
[2022-03-07 20:48] LABS: Glucose Point of Care 253 mg/dL (70-110)
[2022-03-08] VITALS (7 sets, daily range): BP systolic 97–134; BP diastolic 67–88; PULSE 63–97; RESP 15–18; TEMP 36.4–36.7; O2SAT 94–96
--- NOTE | 2022-03-08 04:34 | CTR_ITS ---
PROCEDURE INFORMATION: Exam: CTA Chest With Contrast Exam date and time: 03/08/2022 4:27 AM Age: 47 years old Clinical indication: Abnormal findings; Abnormal diagnostic tests; Elevated d-dimer; Shortness of breath; Prior surgery; Surgery type: Partial gastrectomy; Patient HX: SOB with elevated d dimer. ; Additional info: Elevated d dimer with shortness of breath TECHNIQUE: Imaging protocol: Computed tomographic angiography of the chest with contrast. 3D rendering (Not supervised by radiologist): MIP and/or 3D reconstructed images were created by the technologist. Radiation optimization: All CT scans at this facility use at least one of these dose optimization techniques: automated exposure control; mA and/or kV adjustment per patient size (includes targeted exams where dose is matched to clinical indication); or iterative reconstruction. Contrast material: OMNI 350; Contrast volume: 75 ml; Contrast route: INTRAVENOUS (IV); COMPARISON: CT chest abd pel w con* 08/08/2020 2:55 PM RADIATION DOSE METRICS: Total DLP (mGy-cm): 719.43 FINDINGS: Pulmonary arteries: No central or segmental filling pulmonary artery filling defects are identified. Great vessels off aortic arch: Aberrant retroesophageal right subclavian artery. Aorta: Unremarkable. The aorta is normal in course and caliber. Lungs: Bibasilar atelectasis and minimal linear scarring in the dependent portions of the lower lobes. The remaining lung parenchyma is clear. No dense confluent lobar opacities identified. Pleural spaces: No pneumothorax. No pleural effusion. Heart: The heart is within normal limits for size. No pericardial effusion is seen. Lymph nodes: The visualized supraclavicular region appears normal. No mediastinal or hilar adenopathy is identified. Stomach and bowel: Postsurgical changes in the stomach noted in the partially visualized upper abdomen. Bones/joints: Unremarkable. Soft tissues: Unremarkable. CT/CT angio chest PE protcl [id number] IMPRESSION: 1. No pulmonary embolism identified. 2. Bibasilar atelectasis.
[2022-03-08] MEDS: iohexol 350 mg/mL 100 mL Btl IV (04:35)
[2022-03-08 04:57] LABS: Basophils % 0.4 %; Eosinophils # 0.2 10^3/uL (0.0-0.8); Eosinophils % 4.1 %; Hematocrit 38.9 % (37.0-47.0); Lymphocytes # 1.4 10^3/uL (0.8-4.8); Lymphocytes % 26.6 %; Mean Corpuscular HGB Conc 30.8 g/dL (30.0-36.0); Mean Platelet Volume 10.7 fL (7.4-10.4); Monocytes # 0.5 10^3/uL (0.2-0.9); Monocytes % 9.7 %; Neutrophils # 2.99 10^3/uL (1.8-7.7); Nucleated Red Blood Cells % 0 %; Platelet Count 178 10^3/cmm (130-400); Red Blood Count 4.14 10^6/uL (4.1-5.3); Red Cell Distribution Width 14.2 % (12.1-15.1); White Blood Count 5.1 10^3/uL (4.0-10.0)
[2022-03-08] MEDS: sodium chloride 0.9% 1,000 ML 75 ML IV ×2 (05:14→17:40)
[2022-03-08 05:19] LABS: Anion Gap 15.1 (5-19); Blood Urea Nitrogen 9 mg/dL (6-20); Calcium 8.1 mg/dL (8.5-10.5); Carbon Dioxide 20 mmol/L (22-29); Chloride 106 mmol/L (98-107); Glomerular Filtration Rate 132.2 mL/min (90-130); Glucose 139 mg/dL (65-115); Osmolality Calculated 287 mOsm/kg (285-295); Potassium 3.1 mmol/L (3.5-5.1); Sodium 138 mmol/L (136-145)
[2022-03-08 06:44] LABS: Glucose Point of Care 133 mg/dL (70-110)
[2022-03-08] MEDS: ondansetron 4 MG Tablet PO ×2 (08:09→23:48)
[2022-03-08] MEDS: ascorbic acid 500 mg Tablet 1000 MG PO ×2 (09:02→21:01)
[2022-03-08] MEDS: simethicone 80 mg Chew PO ×3 (09:02→17:35)
[2022-03-08] MEDS: polyethylene glycol 3350 Pkt 17 gm PO (09:02)
[2022-03-08] MEDS: lactulose oral liq 20 gm/30 mL UDC PO (09:02)
[2022-03-08] MEDS: ALPRAZolam 0.5 mg Tablet 0.25 MG PO ×3 (09:02→21:01)
[2022-03-08] MEDS: docusate sodium 100 mg Capsule PO ×2 (09:03→17:35)
[2022-03-08] MEDS: pregabalin 50 mg Capsule PO ×2 (09:03→17:35)
[2022-03-08] MEDS: sertraline 50 mg Tablet PO (09:03)
[2022-03-08] MEDS: pantoprazole DR 40 mg Tablet PO (09:03)
[2022-03-08] MEDS: bisacodyl 5 mg Tablet 10 MG PO (09:03)
[2022-03-08] MEDS: sennosides-docusate Tablet 2 TAB PO ×2 (09:03→21:05)
[2022-03-08] MEDS: tizanidine 4 mg Tablet PO ×2 (09:03→15:37)
[2022-03-08] MEDS: gabapentin 400 mg Capsule 1200 MG PO ×3 (09:03→21:03)
[2022-03-08] MEDS: potassium chloride ER 20 mEq Tablet 40 MEQ PO ×2 (09:04→17:36)
--- NOTE | 2022-03-08 10:49 | P.PN_ITS ---
Subjective Subjective: Seen this AM. Pt had a large BM yesterday. She is feeling a lot better. Shortness of breath is also improved. Has been afebrile for the last 24 hours. WBC count is still normal. Urine growing gram-negative rods more than 100,000 colonies. Previous culture was sensitive to imipenem. She is c ontinue to imipenem for now. Patient's back was examined yesterday with help of nurses. She does have a stage I decubitus ulcer. Vitals/I&O/Wt Last Vital Signs Temp 97.8 F 03/08/22 08:17 Pulse 83 03/08/22 08:17 Resp 16 03/08/22 08:17 BP 134/88 03/08/22 08:17 Pulse Ox 95 03/08/22 08:17 03/07/22 03/08/22 03/08/22 22:59 06:59 14:59 Intake Total 866.25 / 2683.75 926.25 / 3610.00 120 / 120 Output Total 650 / 650 1500 / 2150 Balance 216.25 / 2033.75 -573.75 / 1460.00 120 / 120 Physical Exam Narrative: General: Alert oriented x3, patient seen laying in bed appearing comfortable HEENT: Normocephalic, atraumatic, EOMI, breathing normally no acute respiratory distress. Cardio: Regular rate rhythm, normal S1-S2, no murmurs Respiratory: No wheezes no rhonchi noted, clear to auscultation bilaterally. GI: Abdomen soft, no distention, no guarding or rigidity, nontender to palpation Behavior: Appropriate and cooperative Extremities: Trace lower extremity edema, trace upper extremity edema bilaterally, quadriplegia Stage I decubitus ulcer present on back. Urinary Catheter Management: Dumont: Cath Placed During This Visit: yes Reason for Continuing Indwelling Catheter: Chronic Indwelling Urinary Catheter on Admission Urinary Catheter Date of Insertion: 03/07/22 Urinary Catheter Time of Insertion: 17:16 Data : 03/08/22 04:10 03/08/22 04:10 Micro: Microbiology 03/06/22 14:33 C.difficile Toxin B Gene (PCR) - Final Stool - Stool Aspirate 03/06/22 12:50 Urine Culture - Preliminary Urine,Clean Catch Gram Negative Rods 03/06/22 10:10 Blood Culture - Preliminary Blood NEGATIVE TO DATE 03/06/22 09:00 Blood Culture - Preliminary Blood NEGATIVE TO DATE A&P Assessment and plan (1) Acute cystitis: Status: Acute Qualifiers: Hematuria presence: without hematuria Qualified Code(s): N30.00 - Acute cystitis without hematuria (2) Abdominal pain: Status: Acute Qualifiers: Abdominal location: periumbilical Qualified Code(s): R10.33 - Periumbilical pain (3) Hyperglycemia: Status: Acute (4) UTI (urinary tract infection): Status: Acute (5) History of ESBL E. coli infection: Status: Acute (6) PVD (peripheral vascular disease): Status: Acute (7) Quadriplegia: Status: Acute Plan #Acute on chronic UTI, history of ESBL #Sinus tachycardia secondary to fever - resolved #Decubitus ulcer present on admission, stage 1 #Headache at admission most likely migraine. - resolved #Chronic right lower quadrant pain - improved #Quadriparesis #Severe constipation - improved #Diabetes mellitus type 2, insulin-dependent -Patient had a fever 102 first 24 hours. Afebrile overnight.? No leukocytosis present.? Sputum culture gram stain pending, blood culture pending ? Continue imipenem every 6 hours.? Eventually at discharge she will need to have ertapenem daily to complete 7 days ? Tylenol 650 oral as needed for fever ? CT ab showed severe constipation with rectal impaction. Enema ordered. Pt had a very large BM. She feels a lot better. ? Continue home medications for bowel regimen. ? Lovenox for DVT prophylaxis ? D-dimer elevated.CTA ruled out PE. Shortness of breath improved. -Lantus 10 daily plus sliding scale -Zofran for nausea ? Diabetic diet. - Dumont replaced. draining clear yellow urine Pt overall improved. Will advance diet to see if she can tolerate. UCx positive for gram neg rods If continues to improve, will plan for discharge after urine culture sensitivity is back. Full code Attestations Medical Necessity Statement*: IV abx for UTI. awaiting culture sensitivity. 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 coli infection Z86.19 PVD (peripheral vascular disease) I73.9 Quadriplegia G82.50
[2022-03-08 11:22] LABS: Glucose Point of Care 199 mg/dL (70-110)
[2022-03-08] MEDS: insulin lispro 100 unit/1 mL SUBCUT (12:50)
[2022-03-08] MEDS: enoxaparin 40 mg/0.4 mL Syringe SUBCUT (15:36)
[2022-03-08 17:20] LABS: Glucose Point of Care 104 mg/dL (70-110)
[2022-03-08] MEDS: atorvastatin 40 mg Tablet 20 MG PO (21:03)
[2022-03-08] MEDS: insulin glargine 100 units/1 mL 10 UNIT SUBCUT (21:17)
--- NOTE | 2022-03-08 23:26 | PC.NURSE ---
Diarrhea contains chunks of undigested jello.
[2022-03-08] MEDS: morphine 10 mg/0.5 mL oral liq UD 5 MG PO (23:47)
[2022-03-09] VITALS (7 sets, daily range): BP systolic 92–152; BP diastolic 57–91; PULSE 67–89; RESP 12–18; TEMP 36.4–37.1; O2SAT 93–96
[2022-03-09] MEDS: acetaminophen 500 mg Tablet PO (01:25)
--- NOTE | 2022-03-09 03:44 | PC.NURSE ---
Phoned Dr. Del Real at 0120, pt. having lot of stools, abdomen pain, and new order to check stool for c-diff . Medicated with Prn pain med's and zofran given to patient at her request. Stool sent to lab.
[2022-03-09] MEDS: morphine 10 mg/0.5 mL oral liq UD 5 MG PO ×3 (04:29→17:56)
[2022-03-09 05:52] LABS: Anion Gap 15.6 (5-19); Blood Urea Nitrogen 6 mg/dL (6-20); Calcium 8.2 mg/dL (8.5-10.5); Carbon Dioxide 20 mmol/L (22-29); Chloride 109 mmol/L (98-107); Glomerular Filtration Rate 132.2 mL/min (90-130); Glucose 81 mg/dL (65-115); Osmolality Calculated 289 mOsm/kg (285-295); Potassium 3.6 mmol/L (3.5-5.1); Sodium 141 mmol/L (136-145)
[2022-03-09] MEDS: gabapentin 400 mg Capsule 1200 MG PO ×3 (08:09→20:27)
[2022-03-09] MEDS: sertraline 50 mg Tablet PO (08:09)
[2022-03-09] MEDS: sennosides-docusate Tablet 2 TAB PO ×2 (08:10→20:27)
[2022-03-09] MEDS: simethicone 80 mg Chew PO ×3 (08:10→17:49)
[2022-03-09] MEDS: ascorbic acid 500 mg Tablet 1000 MG PO ×2 (08:10→20:27)
[2022-03-09] MEDS: docusate sodium 100 mg Capsule PO (08:10)
[2022-03-09] MEDS: pregabalin 50 mg Capsule PO ×2 (08:10→17:49)
[2022-03-09] MEDS: pantoprazole DR 40 mg Tablet PO (08:10)
[2022-03-09] MEDS: nystatin cream 30 gm 1 APPLIC TOPICAL ×2 (08:11→17:49)
[2022-03-09] MEDS: sodium chloride 0.9% 1,000 ML 75 ML IV ×2 (08:15→22:30)
[2022-03-09 10:12] LABS: Glucose Point of Care 85 mg/dL (70-110)
[2022-03-09 10:12] LABS: Glucose Point of Care 93 mg/dL (70-110)
--- NOTE | 2022-03-09 10:34 | PC.SOCIAL ---
Pg 2 IMM Explained to pt Pg 2 IMM. No questions voiced. Provided pt a copy. Initialed, dated, & timed a copy & placed in chart.
--- NOTE | 2022-03-09 12:23 | PM.PN ---
Subjective Subjective: Seen this morning. There was a concern that the patient had a lot of bowel movements overnight and C. difficile was sent. C. difficile sample is negative. Because patient was severely constipated she received a lot of stool softeners since admission. We have cut back on stool softeners at this point. Patient is feeling a lot better. Has been afebrile in the last 48 hours. Dumont also draining clear urine. Vitals/I&O/Wt Last Vital Signs Temp 97.6 F 03/09/22 08:00 Pulse 79 03/09/22 08:00 Resp 18 03/09/22 08:00 BP 121/79 03/09/22 08:00 Pulse Ox 95 03/09/22 08:00 03/08/22 03/09/22 03/09/22 22:59 06:59 14:59 Intake Total 1152.5 / 1612.5 238 / 1850.5 1220 / 1220 Output Total 450 / 950 2000 / 2950 500 / 500 Balance 702.5 / 662.5 -1762 / -1099.5 720 / 720 Physical Exam Narrative: General: Alert oriented x3, patient seen laying in bed appearing comfortable HEENT: Normocephalic, atraumatic, EOMI, breathing normally no acute respiratory distress. Cardio: Regular rate rhythm, normal S1-S2, no murmurs Respiratory: No wheezes no rhonchi noted, clear to auscultation bilaterally. GI: Abdomen soft, no distention, no guarding or rigidity, nontender to palpation Behavior: Appropriate and cooperative Extremities: Trace lower extremity edema, trace upper extremity edema bilaterally, quadriplegia Stage I decubitus ulcer present on back. Urinary Catheter Management: Dumont: Cath Placed During This Visit: yes Reason for Continuing Indwelling Catheter: Chronic Indwelling Urinary Catheter on Admission Urinary Catheter Date of Insertion: 03/07/22 Urinary Catheter Time of Insertion: 17:16 Data : 03/08/22 04:10 03/09/22 04:13 Micro: Microbiology 03/09/22 01:20 C.difficile Toxin B Gene (PCR) - Final Stool Routine Collection 03/06/22 12:50 Urine Culture - Final Urine,Clean Catch Escherichia coli esbl A&P Assessment and plan (1) Acute cystitis: Status: Acute Qualifiers: Hematuria presence: without hematuria Qualified Code(s): N30.00 - Acute cystitis without hematuria (2) Abdominal pain: Status: Acute Qualifiers: Abdominal location: periumbilical Qualified Code(s): R10.33 - Periumbilical pain (3) Hyperglycemia: Status: Acute (4) UTI (urinary tract infection): Status: Acute (5) History of ESBL E. coli infection: Status: Acute (6) PVD (peripheral vascular disease): Status: Acute (7) Quadriplegia: Status: Acute Plan #Acute on chronic UTI, history of ESBL #Sinus tachycardia secondary to fever - resolved #Decubitus ulcer present on admission, stage 1 #Headache at admission most likely migraine. - resolved #Chronic right lower quadrant pain - improved #Quadriparesis #Severe constipation - improved #Diabetes mellitus type 2, insulin-dependent -Patient had a fever 102 first 24 hours. Afebrile overnight.? No leukocytosis present.? Sputum culture gram stain pending, blood culture pending ? Continue imipenem every 6 hours.? Eventually at discharge she will need to have ertapenem daily to complete 7 days ? CT ab showed severe constipation with rectal impaction. Enema ordered. Pt had a very large BM. She feels a lot better. ? Continue home medications for bowel regimen. ? Lovenox for DVT prophylaxis ? D-dimer elevated.CTA ruled out PE. Shortness of breath improved. -Lantus 10 daily plus sliding scale -Zofran for nausea ? Diabetic diet. - Dumont replaced. draining clear yellow urine -Pt overall improved. Will advance diet to see if she can tolerate. -UCx positive for gram neg rods sensitive to Carbapenem class. -Discharged to retirement tomorrow with ertapenem 1 g daily until 03/14/2022 Full code Attestations Medical Necessity Statement*: Pending placement. 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 coli infection Z86.19 PVD (peripheral vascular disease) I73.9 Quadriplegia G82.50
[2022-03-09] MEDS: ALPRAZolam 0.5 mg Tablet 0.25 MG PO ×2 (13:03→20:28)
[2022-03-09] MEDS: tizanidine 4 mg Tablet PO ×2 (13:03→22:35)
[2022-03-09] MEDS: enoxaparin 40 mg/0.4 mL Syringe SUBCUT (14:34)
[2022-03-09] MEDS: fentaNYL 50 mcg Patch 1 PATCH TRANSDERMA (15:49)
[2022-03-09] MEDS: potassium chloride ER 20 mEq Tablet 40 MEQ PO (17:49)
[2022-03-09] MEDS: metoclopramide 10 mg Tablet PO (20:27)
[2022-03-09] MEDS: atorvastatin 40 mg Tablet 20 MG PO (20:27)
[2022-03-09] MEDS: lactulose oral liq 20 gm/30 mL UDC PO (20:29)
[2022-03-09] MEDS: insulin glargine 100 units/1 mL 10 UNIT SUBCUT (21:59)
[2022-03-09] MEDS: ondansetron 4 MG Tablet PO (22:02)
[2022-03-09] MEDS: gabapentin 400 mg Capsule PO (23:58)
[2022-03-10] VITALS (9 sets, daily range): BP systolic 78–142; BP diastolic 49–89; PULSE 70–87; RESP 16–18; TEMP 36.4–37.1; O2SAT 92–98
[2022-03-10] MEDS: morphine 10 mg/0.5 mL oral liq UD 5 MG PO ×4 (00:10→20:47)
[2022-03-10 06:25] LABS: Glucose Point of Care 127 mg/dL (70-110)
[2022-03-10 06:25] LABS: Glucose Point of Care 112 mg/dL (70-110)
[2022-03-10 06:25] LABS: Glucose Point of Care 110 mg/dL (70-110)
[2022-03-10 06:39] LABS: Glucose Point of Care 104 mg/dL (70-110)
[2022-03-10] MEDS: ALPRAZolam 0.5 mg Tablet 0.25 MG PO ×2 (08:17→15:39)
[2022-03-10] MEDS: gabapentin 400 mg Capsule 1200 MG PO ×3 (08:18→20:47)
[2022-03-10] MEDS: pregabalin 50 mg Capsule PO ×2 (08:18→17:57)
[2022-03-10] MEDS: sennosides-docusate Tablet 2 TAB PO (08:18)
[2022-03-10] MEDS: potassium chloride ER 20 mEq Tablet 40 MEQ PO (08:19)
[2022-03-10] MEDS: lactulose oral liq 20 gm/30 mL UDC PO ×3 (08:19→20:48)
[2022-03-10] MEDS: sertraline 50 mg Tablet PO (08:19)
[2022-03-10] MEDS: pantoprazole DR 40 mg Tablet PO (08:19)
[2022-03-10] MEDS: polyethylene glycol 3350 Pkt 17 gm PO (08:25)
[2022-03-10] MEDS: ascorbic acid 500 mg Tablet 1000 MG PO ×2 (08:25→20:48)
[2022-03-10] MEDS: nystatin cream 30 gm 1 APPLIC TOPICAL ×2 (08:31→17:57)
[2022-03-10] MEDS: simethicone 80 mg Chew PO ×3 (08:33→17:34)
[2022-03-10] MEDS: tizanidine 4 mg Tablet PO ×3 (08:38→20:48)
[2022-03-10] MEDS: ondansetron 4 MG Tablet PO ×2 (08:38→15:47)
--- NOTE | 2022-03-10 08:40 | PC.NURSE ---
Patient refused her diabetic food tray. Patient states, I just want Jello this morning. I got sick last night and so I am not ready to try food again yet.
[2022-03-10] MEDS: ertapenem 1,000 MG in sodium chloride 0.9% (plus) 100 ML 200 MG IV (10:40)
[2022-03-10 11:38] LABS: Glucose Point of Care 121 mg/dL (70-110)
--- NOTE | 2022-03-10 12:38 | P.PN_ITS ---
Subjective Subjective: Patient was nauseous this morning and was nauseous last night. She states she does not want to go back to fully solid food yet. She does have nausea at baseline and states that she takes Zofran 3 times a day at home. She would like for us to schedule that for her. She would like to go to a either a full liquid or GI soft diet as that keeps her feeling better. Denies any vomiting at this time, denies abdominal pain. Did not have a bowel movement yesterday. She says overall she feels completely back to baseline and is ready to go back to her longterm. She does not have any other complaints at this time. Vitals/I&O/Wt Last Vital Signs Temp 98.1 F 03/10/22 11:16 Pulse 87 03/10/22 11:16 Resp 17 03/10/22 11:16 BP 124/78 03/10/22 11:16 Pulse Ox 98 03/10/22 11:16 03/09/22 03/10/22 03/10/22 22:59 06:59 14:59 Intake Total 1340 / 3020 200 / 3220 240 / 240 Output Total 1050 / 1550 1700 / 3250 Balance 290 / 1470 -1500 / -30 240 / 240 Physical Exam Narrative: General: Alert oriented x3, patient seen laying in bed appearing comfortable HEENT: Normocephalic, atraumatic, EOMI, breathing normally no acute respiratory distress. Cardio: Regular rate rhythm, normal S1-S2, no murmurs Respiratory: No wheezes no rhonchi noted, clear to auscultation bilaterally. GI: Abdomen soft, no distention, no guarding or rigidity, nontender to palpation Behavior: Appropriate and cooperative Extremities: Trace lower extremity edema, trace upper extremity edema bilaterally, quadriplegia Stage I decubitus ulcer present on back. Urinary Catheter Management: Dumont: Cath Placed During This Visit: yes Reason for Continuing Indwelling Catheter: Chronic Indwelling Urinary Catheter on Admission Urinary Catheter Date of Insertion: 03/07/22 Urinary Catheter Time of Insertion: 17:16 Data : 03/08/22 04:10 03/09/22 04:13 A&P Assessment and plan (1) Acute cystitis: Status: Acute Qualifiers: Hematuria presence: without hematuria Qualified Code(s): N30.00 - Acute cystitis without hematuria (2) Hyperglycemia: Status: Acute (3) UTI (urinary tract infection): Status: Acute (4) PVD (peripheral vascular disease): Status: Acute (5) Quadriplegia: Status: Acute (6) Bloating: Status: Chronic (7) Abdominal pain: Status: Acute Qualifiers: Abdominal location: periumbilical Qualified Code(s): R10.33 - Periumbilical pain Plan #Acute on chronic UTI, history of ESBL #Sinus tachycardia secondary to fever - resolved #Decubitus ulcer present on admission, stage 1 #Headache at admission most likely migraine. - resolved #Chronic right lower quadrant pain - improved #Quadriparesis #Severe constipation - improved #Diabetes mellitus type 2, insulin-dependent - Patient had a fever 102 first 24 hours. Afebrile overnight.? No leukocytosis present.? Sputum culture gram stain pending, blood culture pending ? Stop imipenem. Switch to ertapenem 1 g daily for another 3 days. Patient to discharge by Thursday to go back to longterm after her last dose of ertapenem. ? CT ab showed severe constipation with rectal impaction on admission. Bowel regimen was adjusted and enema was given. Patient had large bowel movements thereafter and is feeling a lot better. ? Continue home medications for bowel regimen. ? Lovenox for DVT prophylaxis ? D-dimer elevated.CTA ruled out PE. Shortness of breath improved. -Lantus 10 daily plus sliding scale -Zofran for nausea ? Diabetic diet. - Dumont replaced at admission draining clear yellow urine Patient feels back to baseline. She is ready to go back to longterm. We will discharge her this Thursday after last dose of ertapenem. -UCx positive for gram neg rods sensitive to Carbapenem class. -Discharged to longterm tomorrow with ertapenem 1 g daily until 03/12/2022 Full code Attestations Medical Necessity Statement*: Discharge when stable 03/12/2022 back to longterm after completion of ertapenem. 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
--- NOTE | 2022-03-10 13:56 | PC.NURSE ---
Report to Melanie PATTON at this time.
[2022-03-10] MEDS: sodium chloride 0.9% 1,000 ML 75 ML IV (14:27)
[2022-03-10 15:22] LABS: Glucose Point of Care 109 mg/dL (70-110)
[2022-03-10] MEDS: enoxaparin 40 mg/0.4 mL Syringe SUBCUT (15:41)
[2022-03-10 16:06] LABS: Osmolality Urine 508 mOsm/kg (50-1200)
[2022-03-10] MEDS: docusate sodium 100 mg Capsule PO (17:34)
[2022-03-10 17:45] LABS: Glucose Point of Care 105 mg/dL (70-110)
[2022-03-10] MEDS: atorvastatin 40 mg Tablet 20 MG PO (20:48)
[2022-03-10 21:05] LABS: Glucose Point of Care 110 mg/dL (70-110)
[2022-03-10] MEDS: insulin glargine 100 units/1 mL 10 UNIT SUBCUT (21:36)
[2022-03-11] VITALS (9 sets, daily range): BP systolic 90–127; BP diastolic 59–86; PULSE 64–80; RESP 16–18; TEMP 36.5–36.9; O2SAT 93–97
[2022-03-11] MEDS: morphine 10 mg/0.5 mL oral liq UD 5 MG PO ×5 (00:42→23:04)
[2022-03-11] MEDS: sodium chloride 0.9% 1,000 ML 75 ML IV ×2 (03:57→20:50)
[2022-03-11] MEDS: ondansetron 4 MG Tablet PO (06:16)
[2022-03-11 06:28] LABS: Glucose Point of Care 108 mg/dL (70-110)
[2022-03-11] MEDS: sertraline 50 mg Tablet PO (07:38)
[2022-03-11] MEDS: tizanidine 4 mg Tablet PO ×3 (07:38→20:50)
[2022-03-11] MEDS: ascorbic acid 500 mg Tablet 1000 MG PO ×2 (07:39→20:49)
[2022-03-11] MEDS: sennosides-docusate Tablet 2 TAB PO (07:39)
[2022-03-11] MEDS: simethicone 80 mg Chew PO ×3 (07:39→17:26)
[2022-03-11] MEDS: pregabalin 50 mg Capsule PO ×2 (08:27→17:26)
[2022-03-11] MEDS: gabapentin 400 mg Capsule 1200 MG PO ×3 (08:27→20:49)
[2022-03-11] MEDS: pantoprazole DR 40 mg Tablet PO (08:27)
[2022-03-11] MEDS: ALPRAZolam 0.5 mg Tablet 0.25 MG PO ×3 (08:27→23:05)
[2022-03-11] MEDS: ertapenem 1,000 MG in sodium chloride 0.9% (plus) 100 ML 200 MG IV (08:29)
[2022-03-11] MEDS: nystatin cream 30 gm 1 APPLIC TOPICAL ×2 (08:30→17:28)
--- NOTE | 2022-03-11 11:28 | PC.SOCIAL ---
IMM Update pg 2 of IMM updated and reviewed w/ patient. Copy provided and Copy in chart updated.
[2022-03-11 11:57] LABS: Glucose Point of Care 132 mg/dL (70-110)
--- NOTE | 2022-03-11 13:12 | P.PN_ITS ---
Subjective Subjective: No acute events overnight. Patient is feeling better. Vitals/I&O/Wt Last Vital Signs Temp 97.7 F 03/11/22 11:19 Pulse 64 03/11/22 11:19 Resp 18 03/11/22 11:19 BP 115/76 03/11/22 11:19 Pulse Ox 96 03/11/22 11:19 03/10/22 03/11/22 03/11/22 22:59 06:59 14:59 Intake Total 120 / 1940 1000 / 2940 340 / 340 Output Total 925 / 1825 620 / 2445 Balance -805 / 115 380 / 495 340 / 340 Physical Exam Narrative: General: Alert oriented x3, patient seen laying in bed appearing comfortable HEENT: Normocephalic, atraumatic, EOMI, breathing normally no acute respiratory distress. Cardio: Regular rate rhythm, normal S1-S2, no murmurs Respiratory: No wheezes no rhonchi noted, clear to auscultation bilaterally. GI: Abdomen soft, no distention, no guarding or rigidity, nontender to palpation Extremities: Trace lower extremity edema, trace upper extremity edema bila terally, quadriplegia Stage I decubitus ulcer present on back. Urinary Catheter Management: Dumont: Cath Placed During This Visit: yes Reason for Continuing Indwelling Catheter: Chronic Indwelling Urinary Catheter on Admission Urinary Catheter Date of Insertion: 03/07/22 Urinary Catheter Time of Insertion: 17:16 Data : 03/08/22 04:10 03/09/22 04:13 Micro: Microbiology 03/06/22 10:10 Blood Culture - Final Blood NO GROWTH AFTER 5 DAYS 03/06/22 09:00 Blood Culture - Final Blood NO GROWTH AFTER 5 DAYS A&P Assessment and plan (1) Acute cystitis: Status: Acute Qualifiers: Hematuria presence: without hematuria Qualified Code(s): N30.00 - Acute cystitis without hematuria (2) Abdominal pain: Status: Acute Qualifiers: Abdominal location: periumbilical Qualified Code(s): R10.33 - Periumbilical pain (3) Hyperglycemia: Status: Acute (4) UTI (urinary tract infection): Status: Acute (5) History of ESBL E. coli infection: Status: Acute (6) Abdominal pain determined by examination: Status: Resolved Plan #Acute on chronic UTI, history of ESBL #Sinus tachycardia secondary to fever - resolved #Decubitus ulcer present on admission, stage 1 #Headache at admission most likely migraine. - resolved #Chronic right lower quadrant pain - improved #Quadriparesis #Severe constipation - improved #Diabetes mellitus type 2, insulin-dependent - Patient had a fever 102 first 24 hours. Afebrile since then.? No leukocytosis present.? ? Continue ertapenem. Last done mar 12 2022. ? CT ab showed severe constipation with rectal impaction on admission.? Bowel regimen was adjusted and enema was given.? Patient had large bowel movements thereafter and is feeling a lot better. ? Continue home medications for bowel regimen. ? Lovenox for DVT prophylaxis ? D-dimer elevated.CTA ruled out PE. Shortness of breath improved. -Lantus 10 daily plus sliding scale -Zofran for nausea ? Diabetic diet. - Dumont replaced at admission draining clear yellow urine Patient feels back to baseline.? She is ready to go back to halfway.? We will discharge her this Thursday after last dose of ertapenem. -UCx positive for gram neg rods sensitive to Carbapenem class. 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 coli infection Z86.19 Abdominal pain determined by examination R10.9
[2022-03-11] MEDS: enoxaparin 40 mg/0.4 mL Syringe SUBCUT (15:18)
--- NOTE | 2022-03-11 15:20 | PM.DCS ---
Discharge Providers Date of Admission: 03/06/22 15:42 Date of Discharge: March 11, 2022 Attending Provider at Admission: Gwen Robins MD Attending Provider at Discharge: Gwen Robins MD Diagnoses at Discharge Discharge Diagnosis (1) Acute cystitis: Status: Acute Qualifiers: Hematuria presence: without hematuria Qualified Code(s): N30.00 - Acute cystitis without hematuria (2) Abdominal pain: Status: Acute Qualifiers: Abdominal location: periumbilical Qualified Code(s): R10.33 - Periumbilical pain (3) Hyperglycemia: Status: Acute (4) UTI (urinary tract infection): Status: Acute (5) History of ESBL E. coli infection: Status: Acute (6) Abdominal pain determined by examination: Status: Resolved Reason for Visit Reason for Visit: HEADACHE Physical Exam Urinary Catheter Management: Dumont: Cath Placed During This Visit: yes Reason for Continuing Indwelling Catheter: Chronic Indwelling Urinary Catheter on Admission Urinary Catheter Date of Insertion: 03/07/22 Urinary Catheter Time of Insertion: 17:16 Discharge Data Studies Completed and Pending Completed Studies During Hospitalization Category Date Time Status CT abdomen pelvis wo con [id number] Stat Cat Scan 03/07/22 09:[address] angio chest PE protcl [id number] Stat Cat Scan 03/08/22 04:[address] head wo con* [id number] Urgent Cat Scan 03/06/22 08:16 Completed XR KUB portable [id number] Routine Exams 03/07/22 16:28 Completed XR chest 1V portable [id number] Urgent Exams 03/06/22 08:16 Completed Pending at discharge Category Date Time Status Basic Metabolic Panel AM LABS Lab 03/12/22 04:00 Ordered COVID [SARS Covid-2 Antigen] Routine Lab 03/11/22 13:48 Uncollected Complete Blood Count w/Auto AM LABS Lab 03/12/22 04:00 Ordered Osmolality Serum Stat Lab 03/06/22 18:56 Received Radiology Impressions Chest X-Ray 03/06/22 08:16 IMPRESSION: No acute cardiopulmonary abnormality identified. Head CT 03/06/22 08:16 IMPRESSION: 1. No acute intracranial hemorrhage or edema. 2. 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 This area is partially obscured by artifact from the occipital cervical fusion. Abdomen/Pelvis CT 03/07/22 09:51 IMPRESSION: 1. Severe diffuse constipation with rectal impaction, rectal diameter measures up to 7 cm in diameter. 2. No free air. 3. No ascites. 4. Postsurgical changes in the stomach and distal small bowel are stable. No change in position of the sutures. 5. Normal appendix. KUB X-Ray 03/07/22 16:28 IMPRESSION: Abnormally dilated small bowel loops. Chest CTA 03/08/22 04:34 IMPRESSION: 1. No pulmonary embolism identified. 2. Bibasilar atelectasis. Laboratory Results WBC 5.1 10^3/uL (4.0-10.0) 03/08/22 04:10 RBC 4.14 10^6/uL (4.1-5.3) 03/08/22 04:10 Hgb 12.0 g/dL (11.5-15.3) 03/08/22 04:10 Hct 38.9 % (37.0-47.0) 03/08/22 04:10 MCV 94.0 fl (81-99) 03/08/22 04:10 MCH 29.0 pg (28.0-34.0) 03/08/22 04:10 MCHC 30.8 g/dL (30.0-36.0) 03/08/22 04:10 RDW 14.2 % (12.1-15.1) 03/08/22 04:10 Plt Count 178 10^3/cmm (130-400) 03/08/22 04:10 MPV 10.7 fL (7.4-10.4) H 03/08/22 04:10 Neut % (Auto) 59.0 % 03/08/22 04:10 Lymph % (Auto) 26.6 % 03/08/22 04:10 [place] % (Auto) 9.7 % 03/08/22 04:10 Eos % (Auto) 4.1 % 03/08/22 04:10 Baso % (Auto) 0.4 % 03/08/22 04:10 Neut # (Auto) 2.99 10^3/uL (1.8-7.7) 03/08/22 04:10 Lymph # (Auto) 1.4 10^3/uL (0.8-4.8) 03/08/22 04:10 [place] # (Auto) 0.5 10^3/uL (0.2-0.9) 03/08/22 04:10 Eos # (Auto) 0.2 10^3/uL (0.0-0.8) 03/08/22 04:10 Baso # (Auto) 0.0 10^3/uL (0.0-0.1) 03/08/22 04:10 Nucleated RBC % (auto) 0 % 03/08/22 04:10 Nucleated RBCs # 0.0 /100WBC 03/08/22 04:10 D-Dimer 2.12 ug/mIFEU (0-0.59) H 03/06/22 21:06 Sodium 141 mmol/L (136-145) 03/09/22 04:13 Potassium 3.6 mmol/L (3.5-5.1) 03/09/22 04:13 Chloride 109 mmol/L (98-107) H 03/09/22 04:13 Carbon Dioxide 20 mmol/L (22-29) L 03/09/22 04:13 Anion Gap 15.6 (5-19) 03/09/22 04:13 BUN 6 mg/dL (6-20) 03/09/22 04:13 Creatinine 0.5 mg/dL (0.5-0.9) 03/09/22 04:13 GFR Calculation 132.2 mL/min (90-130) H 03/09/22 04:13 Glucose 81 mg/dL (65-115) 03/09/22 04:13 POC Glucose 132 mg/dL (70-110) H 03/11/22 11:45 Calculated Osmolality 289 mOsm/kg (285-295) 03/09/22 04:13 Lactic Acid 1.2 mmol/L (0.5-2.2) 03/06/22 09:00 Calcium 8.2 mg/dL (8.5-10.5) L 03/09/22 04:13 Magnesium 2.0 mg/dL (1.7-2.3) 03/09/22 04:13 Total Bilirubin 0.3 mg/dL (0.15-1.2) 03/06/22 09:00 AST 18 U/L (0-32) 03/06/22 09:00 ALT 18 U/L (0-33) 03/06/22 09:00 Alkaline Phosphatase 100 IU/L (35-105) 03/06/22 09:00 C-Reactive Protein 98.7 mg/L (0.0-4.9) H 03/06/22 21:06 Total Protein 7.3 g/dL (6.6-8.7) 03/06/22 09:00 Albumin 3.7 g/dL (3.5-5.2) 03/06/22 09:00 Globulin 3.6 g/dL (1.3-4.6) 03/06/22 09:00 Urine Color Yellow (Yellow) 03/06/22 12:50 Urine Appearance Clear (CLEAR) 03/06/22 12:50 Urine pH 6.5 (5-7) 03/06/22 12:50 Ur Specific [place] 1.010 (1.005-1.030) 03/06/22 12:50 Urine Protein Neg (Negative) 03/06/22 12:50 Urine Glucose (UA) 1+ (Normal) H 03/06/22 12:50 Urine Ketones Negative (Negative) 03/06/22 12:50 Urine Blood 2+ (Negative) H 03/06/22 12:50 Urine Nitrate Negative (Negative) 03/06/22 12:50 Urine Bilirubin Neg (Negative) 03/06/22 12:50 Urine Urobilinogen Norm mg/dL (Negative) 03/06/22 12:50 Ur Leukocyte Esterase 2+ (Negative) H 03/06/22 12:50 Urine RBC 25-40 /hpf (0-2) H 03/06/22 12:50 Urine WBC 40-55 /hpf (0-5) H 03/06/22 12:50 Ur Squamous Epith Cells 0-4 /hpf (0-5) H 03/06/22 12:50 Amorphous Sediment Not Reportable 03/06/22 12:50 Urine Bacteria 2+ /hpf (NONE) H 03/06/22 12:50 Urine Mucus 1+ /hpf 03/06/22 12:50 Urine Osmolality 508 mOsm/kg (50-1200) 03/06/22 15:24 Ur Random Sodium 55 mmol/L 03/06/22 15:24 Ur Random Potassium 36 mmol/L 03/06/22 15:24 Ur Random Chloride 56 mmol/L 03/06/22 15:24 Vitals Last Vital Signs Temp 97.7 F 03/11/22 11:19 Pulse 64 03/11/22 11:19 Resp 18 03/11/22 11:19 BP 115/76 03/11/22 11:19 Pulse Ox 96 03/11/22 11:19 Discharge Plan Discharge Patient Disposition: Home Condition: Stable Prescriptions: No Action ascorbic acid (vitamin C) [Vitamin C] 1,000 mg Tablet 1,000 mg PO BID@08,20 0RF methenamine hippurate 1 gram Tablet 1 g PO BID@08,20 0RF magnesium hydroxide [Milk of Magnesia] 400 mg/5 mL Suspension 30 ml PO DAILY PRN (Reason: Constipation) 0RF Rx Instructions: If no BM in 3 days. pantoprazole 40 mg Tablet,Delayed Release (Dr/Ec) 40 mg PO DAILY 0RF nystatin 100,000 unit/gram Cream See Rx Instructions .ROUTE .COMPLEX 0RF Rx Instructions: APPLY TO RED AREA EVERY SHIFT Fleet Enema 19-7 gram/118 mL Enema 118 ml [place] DAILY PRN (Reason: Constipation) 0RF lactulose 10 gram/15 mL (15 mL) Solution 30 ml PO TID 0RF sennosides-docusate sodium [Senna Plus] 8.6-50 mg Tablet 2 tab PO BID@08,20 0RF sertraline [Zoloft] 25 mg Tablet 50 mg PO DAILY@08 0RF bisacodyl [Dulcolax (bisacodyl)] 5 mg Tablet,Delayed Release (Dr/Ec) 10 mg PO DAILY PRN (Reason: Constipation) 0RF metoclopramide HCl 10 mg tablet 10 mg PO Q6H PRN (Reason: nausea and vomiting) Qty: 20 0RF pravastatin 40 mg Tablet 40 mg PO BEDTIME 0RF naloxone 0.4 mg/mL Solution 0.4 mg IM Q2M PRN (Reason: overdose) 0RF acetaminophen 500 mg Tablet 500 mg PO Q6H PRN (Reason: Pain) 0RF simethicone 80 mg Tablet,Chewable 80 mg PO .AFTER MEALS 0RF polyethylene glycol 3350 [Miralax] 17 gram/dose powder 17 g PO DAILY PRN (Reason: constipation) 0RF bisacodyl [Dulcolax (bisacodyl)] 10 mg Suppository 10 mg [place] DAILY PRN (Reason: Constipation) 0RF Rx Instructions: Give rectally if can't take p/o, if no results from MOM tizanidine 4 mg Tablet 4 mg PO TID@08,14,20 PRN (Reason: unknown) 0RF fentanyl 50 mcg/hr Patch 72 Hour 1 patch TRANSDERMAL Q72H Qty: 5 0RF morphine concentrate 100 mg/5 mL (20 mg/mL) solution 5 mg PO Q4H PRN (Reason: Pain) Qty: 30 0RF alprazolam [Xanax] 0.25 mg Tablet 0.25 mg PO TID PRN (Reason: Anxiety) Qty: 10 0RF ondansetron HCl [Zofran] 4 mg Tablet 4 mg PO Q6H PRN (Reason: Nausea) 0RF Relistor 12 mg/0.6 mL Syringe 6 mg SUBCUT Q3D PRN (Reason: Constipation) 0RF gabapentin 600 mg tablet 1,200 mg PO TID 0RF docusate sodium [Colace] 100 mg Capsule 100 mg PO BID 0RF Humalog KwikPen Insulin 100 unit/mL Insulin Pen See Rx Instructions .ROUTE .COMPLEX 0RF Rx Instructions: SLIDING SCALE- BLOOD SUGAR 125-150 GIVE 2 UNITS, 151-200 GIVE 4 UNITS, 201-250 GIVE 6 UNITS, 251-300 GIVE 8 UNITS, 301-350 GIVE 10 UNITS, 351-400 GIVE 12 UNITS Lyrica 50 mg Capsule 50 mg PO BID 0RF Tums Ultra 400 mg calcium (1,000 mg) Tablet,Chewable 400 mg PO DAILY PRN (Reason: Heartburn) 0RF nitrofurantoin monohyd/m-cryst [Macrobid] 100 mg capsule 100 mg PO BID 7 Days Qty: 14 0RF Rx Instructions: must administer with a meal/food Referrals: [facility] [Outside] Patient Instructions: Opioid Safety Discharge Attestations Status at Discharge: Cognitive status at discharge: cognitively intact, Behavioral status at discharge: cooperative, Coding Level of Care Code Acute Chg FW DC note Diagnoses Acute cystitis N30.00 Hematuria presence: without hematuria Abdominal pain R10.33 Abdominal location: periumbilical Hyperglycemia R73.9 UTI (urinary tract infection) N39.0 History of ESBL E. coli infection Z86.19 Abdominal pain determined by examination R10.9
[2022-03-11 15:48] LABS: Osmolality Serum 289 mOsm/kg (278-305)
[2022-03-11] MEDS: docusate sodium 100 mg Capsule PO (17:26)
[2022-03-11 17:46] LABS: Glucose Point of Care 97 mg/dL (70-110)
[2022-03-11 18:52] LABS: SARS Covid-2 Antigen Negative (Negative)
[2022-03-11] MEDS: atorvastatin 40 mg Tablet 20 MG PO (20:49)
[2022-03-11] MEDS: lactulose oral liq 20 gm/30 mL UDC PO (20:49)
[2022-03-11] MEDS: insulin glargine 100 units/1 mL 10 UNIT SUBCUT (21:03)
[2022-03-11 21:08] LABS: Glucose Point of Care 134 mg/dL (70-110)
[2022-03-12] MEDS: morphine 10 mg/0.5 mL oral liq UD 5 MG PO ×3 (03:42→15:45)
[2022-03-12 04:10] VITALS: BP 96/57; PULSE 65; RESP 16; TEMP 36.8; O2SAT 93
[2022-03-12 06:26] LABS: Basophils % 0.4 %; Eosinophils # 0.2 10^3/uL (0.0-0.8); Eosinophils % 2.2 %; Hematocrit 40.7 % (37.0-47.0); Hemoglobin 12.8 g/dL (11.5-15.3); Lymphocytes # 1.9 10^3/uL (0.8-4.8); Lymphocytes % 27.5 %; Mean Corpuscular HGB Conc 31.4 g/dL (30.0-36.0); Mean Corpuscular Hemoglobin 29.4 pg (28.0-34.0); Mean Corpuscular Volume 93.6 fl (81-99); Mean Platelet Volume 9.8 fL (7.4-10.4); Monocytes # 0.7 10^3/uL (0.2-0.9); Neutrophils # 4.05 10^3/uL (1.8-7.7); Neutrophils % 59.3 %; Nucleated Red Blood Cells % 0 %; Platelet Count 199 10^3/cmm (130-400); Red Blood Count 4.35 10^6/uL (4.1-5.3); Red Cell Distribution Width 14.1 % (12.1-15.1); White Blood Count 6.8 10^3/uL (4.0-10.0)
[2022-03-12 06:34] LABS: Glucose Point of Care 120 mg/dL (70-110)
[2022-03-12 06:46] LABS: Anion Gap 14.5 (5-19); Blood Urea Nitrogen 5 mg/dL (6-20); Calcium 8.4 mg/dL (8.5-10.5); Carbon Dioxide 21 mmol/L (22-29); Chloride 108 mmol/L (98-107); Glomerular Filtration Rate 132.2 mL/min (90-130); Glucose 121 mg/dL (65-115); Osmolality Calculated 289 mOsm/kg (285-295); Potassium 3.5 mmol/L (3.5-5.1); Sodium 140 mmol/L (136-145)
[2022-03-12 08:00] VITALS: PULSE 74; RESP 16; O2SAT 94
[2022-03-12] MEDS: ondansetron 4 MG Tablet PO (08:11)
[2022-03-12] MEDS: ascorbic acid 500 mg Tablet 1000 MG PO (09:15)
[2022-03-12] MEDS: sennosides-docusate Tablet 2 TAB PO (09:16)
[2022-03-12] MEDS: sertraline 50 mg Tablet PO (09:16)
[2022-03-12] MEDS: simethicone 80 mg Chew PO ×2 (09:17→12:38)
[2022-03-12] MEDS: gabapentin 400 mg Capsule 1200 MG PO ×2 (09:18→15:44)
[2022-03-12] MEDS: nystatin cream 30 gm 1 APPLIC TOPICAL (09:19)
[2022-03-12] MEDS: lactulose oral liq 20 gm/30 mL UDC PO ×2 (09:19→15:45)
[2022-03-12] MEDS: pantoprazole DR 40 mg Tablet PO (09:19)
[2022-03-12] MEDS: pregabalin 50 mg Capsule PO (09:20)
[2022-03-12] MEDS: ALPRAZolam 0.5 mg Tablet 0.25 MG PO ×2 (09:20→16:29)
[2022-03-12] MEDS: tizanidine 4 mg Tablet PO ×2 (09:21→15:45)
[2022-03-12] MEDS: ertapenem 1,000 MG in sodium chloride 0.9% (plus) 100 ML 200 MG IV (10:02)
[2022-03-12] MEDS: docusate sodium 100 mg Capsule PO (10:13)
[2022-03-12 11:06] VITALS: TEMP 37.1
[2022-03-12 11:40] LABS: Glucose Point of Care 196 mg/dL (70-110)
[2022-03-12 12:00] VITALS: BP 105/69; PULSE 65; RESP 13; TEMP 36.9; O2SAT 94
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
[2022-03-12] MEDS: insulin lispro 100 unit/1 mL SUBCUT (12:39)
[2022-03-12] MEDS: fentaNYL 50 mcg Patch 1 PATCH TRANSDERMA (13:06)
[2022-03-12 13:39] VITALS: BP 95/60; PULSE 66; RESP 18; TEMP 36.3; O2SAT 95
--- NOTE | 2022-03-12 14:10 | PC.NURSE ---
Patient is ready for discharge. Nurse gave report to Brooklynn at [facility]. Currently waiting on a ride from [facility] which has been called. Patient's belongings include glasses and protective boots.
[2022-03-12] MEDS: enoxaparin 40 mg/0.4 mL Syringe SUBCUT (15:45)
[2022-03-12 15:50] VITALS: BP 122/81; PULSE 79; RESP 14; TEMP 36.6; O2SAT 95
--- NOTE | 2022-03-12 17:29 | PC.NURSE ---
[facility] ambulance came to transfer patient to [facility]. Patient sent with indwelling catheter. Facesheet provided to [facility] staff.
== END 2022-03-12 17:31 | disposition skilled nursing facility (03) | DRG 698 ==
LOC: ER 15:33 → MEDSURG 15:53
PROVIDERS: Internal Medicine; Admitting Provider Internal Medicine; Emergency Provider Emergency Medicine; Visit Provider Student in an Organized Health Care Education/Training Program
DX: T83.518A Infection and inflammatory reaction due to other urinary catheter, initial encounter (principal); G82.50 Quadriplegia, unspecified; Y82.9 Unspecified medical devices associated with adverse incidents; S14.109S Unspecified injury at unspecified level of cervical spinal cord, sequela; V49.9XXS Car occupant (driver) (passenger) injured in unspecified traffic accident, sequela; N31.9 Neuromuscular dysfunction of bladder, unspecified; E11.65 Type 2 diabetes mellitus with hyperglycemia; L89.151 Pressure ulcer of sacral region, stage 1; I73.9 Peripheral vascular disease, unspecified; K59.00 Constipation, unspecified; Z79.891 Long term (current) use of opiate analgesic; Z79.4 Long term (current) use of insulin
CPT/HCPCS: 36415; 36416; 70450; 71045; 71275; 74018; 74176; 80048; 80053; 81001; 82436; 82962; 83605; 83690; 83735; 83930; 83935; 84133; 84300; 85025; 85378; 86140; 87040; 87077; 87086; 87186; 87426; 87493; 93005; 96361; 96365; 96366; 96367; 96372; 96374; 96375; 96376; 99284; 99285; J0743; J1200; J1335; J1650; J1815 ×2; J1885; J2212; J2765; J7030; J8597; Q0162; Q9967

== ENCOUNTER 2022-03-28 08:05 | Emergency (ER) | payer MEDICARE, MEDICAID, SELFPAY ==
[2022-03-28 08:09] VITALS: BP 130/90; RESP 16; TEMP 36.4; O2SAT 97; BMI 25.7
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
--- NOTE | 2022-03-28 08:39 | XRR_ITS ---
PROCEDURE INFORMATION: Exam: XR Chest Exam date and time: 03/28/2022 9:01 AM Age: 47 years old Clinical indication: Cough and dyspnea; Additional info: Dyspnea/cough TECHNIQUE: Imaging protocol: XR of the chest. Views: 1 view. COMPARISON: CR XR chest 1V portable [id number] 03/06/2022 8:23 AM FINDINGS: Tubes, catheters and devices: Metal hardware is present in the neck from cervical spine fusion. Lungs: There is mild linear atelectasis in the right lung base. Otherwise lungs are clear. Pleural spaces: Unremarkable. No pleural effusion. No pneumothorax. Heart/Mediastinum: Unremarkable. No cardiomegaly. Bones/joints: Unremarkable. XR/XR chest 1V portable [id number] IMPRESSION: Mild atelectasis in the right base. No other acute abnormality.
--- NOTE | 2022-03-28 08:39 | ECG_ITS ---
[facility] Test Date: 2022-03-28 Pat Name: Rosanne Morales Department: Room: Gender: Female Proof Tester: : 1975 Requested By: Devin Stewart Order Number: [id number] Helen MD: Yuri Beyer M.D. Measurements Intervals [place] Rate: 80 P: 48 NC: 145 QRS: 23 QRSD: 81 T: 47 QT: 403 QTc: 465 Interpretive Statements SINUS RHYTHM NONSPECIFIC T-WAVE ABNORMALITY Compared to ECG 03/06/2022 20:36:47 Sinus tachycardia no longer present Short NC interval no longer present T-wave abnormality still present Electronically Signed On 03-28-2022 22:33:23 CDT by Yuri Beyer M.D. [email or web address] [email or web address] [email or web address] [email or web address] va [email or web address] [email or web address]/store/NU/[id number] f
[2022-03-28 09:54] LABS: Basophils % 0.5 %; Eosinophils # 0.2 10^3/uL (0.0-0.8); Eosinophils % 3.3 %; Hematocrit 42.5 % (37.0-47.0); Hemoglobin 13.8 g/dL (11.5-15.3); Lymphocytes % 33.9 %; Mean Corpuscular HGB Conc 32.5 g/dL (30.0-36.0); Mean Corpuscular Hemoglobin 29.4 pg (28.0-34.0); Mean Corpuscular Volume 90.6 fl (81-99); Mean Platelet Volume 10.4 fL (7.4-10.4); Monocytes # 0.5 10^3/uL (0.2-0.9); Monocytes % 8.1 %; Neutrophils # 3.12 10^3/uL (1.8-7.7); Neutrophils % 53.9 %; Nucleated Red Blood Cells % 0 %; Platelet Count 212 10^3/cmm (130-400); Red Blood Count 4.69 10^6/uL (4.1-5.3); Red Cell Distribution Width 13.6 % (12.1-15.1); White Blood Count 5.8 10^3/uL (4.0-10.0)
[2022-03-28 10:16] LABS: Glucose Urine UA Norm (Normal); Protein Urine Trace (Negative); Urine Appearance Cloudy (CLEAR); Urine Color Yellow (Yellow); pH Urine 5 (5-7)
[2022-03-28 10:17] LABS: Add Urine Microscopic? YES; Bilirubin Urine Neg (Negative); Blood Urine 2+ (Negative); Ketones Urine Negative (Negative); Leukocyte Esterase Urine 2+ (Negative); Nitrate Urine Positive (Negative); Urobilinogen Urine Norm (Negative)
[2022-03-28 10:35] LABS: Bacteria Urine 3+ /hpf; Mucus Urine TRACE /hpf; RBC Urine 0-4 /hpf (0-2); WBC Urine TOO NUMEROUS TO CNT /hpf (0-5)
[2022-03-28 10:36] LABS: Add Urine Culture? Yes
[2022-03-28 10:49] LABS: Alanine Aminotransferase 21 U/L (0-33); Alkaline Phosphatase 87 IU/L (35-105); Anion Gap 15.7 (5-19); Aspartate Amino Transferase 19 U/L (0-32); Blood Urea Nitrogen 12 mg/dL (6-20); Carbon Dioxide 25 mmol/L (22-29); Chloride 100 mmol/L (98-107); Globulin 3.1 g/dL (1.3-4.6); Glomerular Filtration Rate 107.2 mL/min (90-130); Glucose 144 mg/dL (65-115); Osmolality Calculated 286 mOsm/kg (285-295); Potassium 3.7 mmol/L (3.5-5.1); Sodium 137 mmol/L (136-145); Total Bilirubin 0.2 mg/dL (0.15-1.2); Total Protein 7.1 g/dL (6.6-8.7)
[2022-03-28] MEDS: doxycycline 100 MG in sodium chloride 0.9% (plus) 100 ML IV (11:36)
[2022-03-28 12:31] VITALS: BP 120/81; PULSE 85; RESP 18; O2SAT 94
[2022-03-28 12:42] VITALS: RESP 18; O2SAT 92
[2022-03-28] MEDS: morphine 4 mg/mL SDV 1 mL IVP (12:42)
[2022-03-28] MEDS: cefTRIAXone 1,000 MG in sodium chloride 0.9% (plus) 50 ML 100 MG IV (12:43)
[2022-03-28 14:44] VITALS: BP 124/87; PULSE 87; RESP 17; O2SAT 93
== END 2022-03-28 14:38 | disposition home or self-care (01) ==
PROVIDERS: Emergency Provider Family Medicine
DX: N30.90 Cystitis, unspecified without hematuria (principal); G82.20 Paraplegia, unspecified; S14.109S Unspecified injury at unspecified level of cervical spinal cord, sequela; V89.2XXS Person injured in unspecified motor-vehicle accident, traffic, sequela; N31.9 Neuromuscular dysfunction of bladder, unspecified; R09.02 Hypoxemia; Z96.0 Presence of urogenital implants; Z87.440 Personal history of urinary (tract) infections
CPT/HCPCS: 71045; 80053; 81001; 85025; 87077; 87086; 87186; 93005; 96365; 96367; 96375; 99284; J0696; J2270; J3490

== ENCOUNTER 2022-04-07 21:08 | Emergency (ER) | payer MEDICARE, MEDICAID, SELFPAY ==
[2022-04-07 21:11] VITALS: BP 100/58; PULSE 94; RESP 20; TEMP 36.8; O2SAT 90; BMI 24.0
--- NOTE | 2022-04-07 21:24 | CTR_ITS ---
PROCEDURE INFORMATION: Exam: CT Head Without Contrast Exam date and time: 04/07/2022 9:41 PM Age: 47 years old Clinical indication: Alteration of consciousness; Somnolence (drowsiness); Additional info: AMS TECHNIQUE: Imaging protocol: Computed tomography of the head without contrast. Sagittal and coronal reformatted images were created and reviewed. Radiation optimization: All CT scans at this facility use at least one of these dose optimization techniques: automated exposure control; mA and/or kV adjustment per patient size (includes targeted exams where dose is matched to clinical indication); or iterative reconstruction. COMPARISON: CT head wo con* [id number] 03/06/2022 8:32 AM RADIATION DOSE METRICS: Total DLP (mGy-cm): 967.17 FINDINGS: Brain: No acute intracranial hemorrhage. No acute infarct. No intra-axial or extra-axial masses. Mchugh-white matter differentiation is preserved. No cerebral edema. No extra-axial fluid collections. No midline shift. No evidence for Chiari 1 malformation. Stable mild cerebral volume loss. 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 Cerebral ventricles: No hydrocephalus. Paranasal sinuses: Visualized paranasal sinuses are clear. Mastoid air cells: Visualized mastoid air cells are clear. Orbital cavities: No acute abnormality in the visualized orbits. Bones/joints: Stable changes consistent with fusion between the occipital bone and visualized upper cervical spine. Soft tissues: No acute abnormality of the extracranial soft tissues. Vasculature: Mild atherosclerotic changes in the visualized arteries. CT/CT head wo con* [id number] IMPRESSION: 1. No acute abnormality of the brain. 2. Incidental/nonacute findings are listed in the report.
--- NOTE | 2022-04-07 21:24 | XRR_ITS ---
PROCEDURE INFORMATION: Exam: XR Chest Exam date and time: 04/07/2022 9:30 PM Age: 47 years old Clinical indication: Screening exam; Other screening; Additional info: AMS TECHNIQUE: Imaging protocol: XR of the chest. Views: 1 view. COMPARISON: CR (CHEST, ) 03/28/2022 9:01 AM FINDINGS: Lungs: Stable linear scarring in the right lower lobe. Clearing of left lower lobe airspace disease. Pleural spaces: No pleural effusion. No pneumothorax. Heart/Mediastinum: The cardiac silhouette and mediastinal contours are unremarkable. Bones/joints: Stable postsurgical changes in the visualized cervical spine. Intraperitoneal space: Surgical clips in the left upper quadrant are stable. XR/XR chest 1V portable [id number] IMPRESSION: 1. No acute cardiopulmonary process. 2. Incidental/nonacute findings are listed in the report.
--- NOTE | 2022-04-07 21:25 | ECG_ITS ---
[facility] Test Date: 2022-04-07 Pat Name: Rosanne Morales Department: Room: Gender: Female Bench Mover: : 1975 Requested By: Liliana Anderson Order Number: [id number] Helen MD: Yuri Beyer M.D. Measurements Intervals [place] Rate: 91 P: 48 ID: [id number] QRS: 23 QRSD: 85 T: 72 QT: 379 QTc: 468 Interpretive Statements SINUS RHYTHM NONSPECIFIC T-WAVE ABNORMALITY Compared to ECG 03/28/2022 09:06:59 No significant changes Electronically Signed On 04-08-2022 18:33:12 CDT by Yuri Beyer M.D. [email or web address], [id number]
--- NOTE | 2022-04-07 21:31 | W.ED.AMS ---
HPI - Altered Mental Status General: Chief Complaint: Altered Mental Status Stated Complaint: AMS Time Seen by Provider: 04/07/22 21:11 Source: patient and EMS Mode of arrival: EMS Limitations: no limitations History of Present Illness: 47-year-old female very well-known to the ER history of quadriplegia she is [facility] resident. She states that over the last 2 days she been having increasing pain all over along with some confusion. She states she feels like she has been sleeping more and waking up with some periods of confusion and seeing things. She denies any headache denies any fever here she is able answer all my questions appropriately and is ANO x4. Associated symptoms: Deny depression Review of Systems Const: Denies: fever(s), chills, body aches or change in appetite Eyes: Denies: blurry vision or eye discomfort ENMT: Denies: throat pain or dental pain Card: Denies: chest pain Resp: Denies: dyspnea GI: Denies: abdominal pain, nausea, vomiting or diarrhea : Denies: dysuria Musc: Denies: neck pain or back pain Skin/Breast: Denies: rash Neuro: Denies: headache(s) Psych: Denies: depression Raul/Lymph: Denies: easy bruising All/Imm: Denies: urticaria PFSH ED PFSH: Medical History Chronic indwelling Dumont catheter Hydronephrosis Neurogenic bladder Perforated abdominal viscus Condition resolved Post-traumatic quadriplegia PVD (peripheral vascular disease) Quadriplegia Recurrent sepsis due to urinary tract infection Surgical History H/O bladder repair surgery H/O cystoscopy H/O partial cystectomy H/O Spinal surgery History of hysterectomy History of partial gastrectomy Family History Other CAD (coronary artery disease) Diabetes Hypertension Social History Alcohol intake: never Household members: spouse Housing: House Marital status: Current occupational status: disabled Course Vital Signs: Vital signs: Vital Signs Temperature 98.2 F 04/07/22 21:11 Pulse Rate 85 04/08/22 02:14 Respiratory Rate 16 04/08/22 02:14 Blood Pressure 109/78 04/08/22 02:14 Pulse Oximetry 94 04/08/22 02:14 MDM - Altered Mental Status Medical Decision Making Patient presents with chronic pain with pain all over she had some confusion the [facility] here she is awake and alert with no confusion patient's blood work and head CT here are all normal she is stable for discharge back to the [facility]. Return if worsening. Lab Data : 04/07/22 22:17 04/07/22 22:17 Radiology Impressions Chest X-Ray 04/07/22 21:24 IMPRESSION: 1. No acute cardiopulmonary process. 2. Incidental/nonacute findings are listed in the report. Head CT 04/07/22 21:24 IMPRESSION: 1. No acute abnormality of the brain. 2. Incidental/nonacute findings are listed in the report. Laboratory Results WBC 7.6 10^3/uL (4.0-10.0) 04/07/22 22:17 RBC 4.70 10^6/uL (4.1-5.3) 04/07/22 22:17 Hgb 13.5 g/dL (11.5-15.3) 04/07/22 22:17 Hct 42.0 % (37.0-47.0) 04/07/22 22:17 MCV 89.4 fl (81-99) 04/07/22 22:17 MCH 28.7 pg (28.0-34.0) 04/07/22 22:17 MCHC 32.1 g/dL (30.0-36.0) 04/07/22 22:17 RDW 13.7 % (12.1-15.1) 04/07/22 22:17 Plt Count 272 10^3/cmm (130-400) 04/07/22 22:17 MPV 10.3 fL (7.4-10.4) 04/07/22 22:17 Neut % (Auto) 57.2 % 04/07/22 22:17 Lymph % (Auto) 29.7 % 04/07/22 22:17 [place] % (Auto) 8.3 % 04/07/22 22:17 Eos % (Auto) 3.8 % 04/07/22 22:17 Baso % (Auto) 0.5 % 04/07/22 22:17 Neut # (Auto) 4.35 10^3/uL (1.8-7.7) 04/07/22 22:17 Lymph # (Auto) 2.3 10^3/uL (0.8-4.8) 04/07/22 22:17 [place] # (Auto) 0.6 10^3/uL (0.2-0.9) 04/07/22 22:17 Eos # (Auto) 0.3 10^3/uL (0.0-0.8) 04/07/22 22:17 Baso # (Auto) 0.0 10^3/uL (0.0-0.1) 04/07/22 22:17 Nucleated RBC % (auto) 0 % 04/07/22 22:17 Nucleated RBCs # 0.0 /100WBC 04/07/22 22:17 Sodium 141 mmol/L (136-145) 04/07/22 22:17 Potassium 4.2 mmol/L (3.5-5.1) 04/07/22 22:17 Chloride 103 mmol/L (98-107) 04/07/22 22:17 Carbon Dioxide 25 mmol/L (22-29) 04/07/22 22:17 Anion Gap 17.2 (5-19) 04/07/22 22:17 BUN 17 mg/dL (6-20) 04/07/22 22:17 Creatinine 0.7 mg/dL (0.5-0.9) 04/07/22 22:17 GFR Calculation 89.7 mL/min (90-130) L 04/07/22 22:17 Glucose 134 mg/dL (65-115) H 04/07/22 22:17 Calculated Osmolality 296 mOsm/kg (285-295) H 04/07/22 22:17 Calcium 8.8 mg/dL (8.5-10.5) 04/07/22 22:17 Total Bilirubin 0.2 mg/dL (0.15-1.2) 04/07/22 22:17 AST 13 U/L (0-32) 04/07/22 22:17 ALT 13 U/L (0-33) 04/07/22 22:17 Alkaline Phosphatase 101 IU/L (35-105) 04/07/22 22:17 Total Protein 7.7 g/dL (6.6-8.7) 04/07/22 22:17 Albumin 3.6 g/dL (3.5-5.2) 04/07/22 22:17 Globulin 4.1 g/dL (1.3-4.6) 04/07/22 22:17 Urine Color Yellow (Yellow) 04/07/22 22:25 Urine Appearance Hazy (CLEAR) A 04/07/22 22:25 Urine pH 6.5 (5-7) 04/07/22 22:25 Ur Specific [place] 1.020 (1.005-1.030) 04/07/22 22:25 Urine Protein 1+ (Negative) H 04/07/22 22:25 Urine Glucose (UA) Norm (Normal) 04/07/22 22:25 Urine Ketones Negative (Negative) 04/07/22 22:25 Urine Blood 2+ (Negative) H 04/07/22 22:25 Urine Nitrate Positive (Negative) H 04/07/22 22:25 Urine Bilirubin Neg (Negative) 04/07/22 22:25 Urine Urobilinogen Norm mg/dL (Negative) 04/07/22 22:25 Ur Leukocyte Esterase 2+ (Negative) H 04/07/22 22:25 Urine RBC 0-4 /hpf (0-2) H 04/07/22 22:25 Urine WBC >100 /hpf (0-5) H 04/07/22 22:25 Ur Squamous Epith Cells 5-10 /hpf (0-5) H 04/07/22 22:25 Amorphous Sediment Not Reportable 04/07/22 22:25 Urine Bacteria 3+ /hpf (NONE) H 04/07/22 22:25 EKG Data EKG 1: I personally reviewed and interpreted this EKG as follows: EKG interpretation date: 04/07/22 EKG interpretation time: 21:14 Interpretation: nsr hr [address] or t wave abnormalities qrs 85 qtc 428 Discharge Plan Discharge Patient Disposition: Home Clinical Impression: Altered mental status Qualifiers: Altered mental status type: unspecified Qualified Code(s): R41.82 - Altered mental status, unspecified Chronic pain Qualifiers: Chronic pain type: other chronic pain Qualified Code(s): G89.29 - Other chronic pain Condition: Stable Prescriptions: No Action ascorbic acid (vitamin C) [Vitamin C] 1,000 mg Tablet 1,000 mg PO BID@08,20 0RF methenamine hippurate 1 gram Tablet 1 g PO BID@08,20 0RF magnesium hydroxide [Milk of Magnesia] 400 mg/5 mL Suspension 30 ml PO DAILY PRN (Reason: Constipation) 0RF Rx Instructions: If no BM in 3 days. pantoprazole 40 mg Tablet,Delayed Release (Dr/Ec) 40 mg PO DAILY 0RF nystatin 100,000 unit/gram Cream See Rx Instructions .ROUTE .COMPLEX 0RF Rx Instructions: APPLY TO RED AREA EVERY SHIFT Fleet Enema 19-7 gram/118 mL Enema 118 ml MN DAILY PRN (Reason: Constipation) 0RF lactulose 10 gram/15 mL (15 mL) Solution 30 ml PO TID 0RF sennosides-docusate sodium [Senna Plus] 8.6-50 mg Tablet 2 tab PO BID@08,20 0RF sertraline [Zoloft] 25 mg Tablet 50 mg PO DAILY@08 0RF bisacodyl [Dulcolax (bisacodyl)] 5 mg Tablet,Delayed Release (Dr/Ec) 5 mg PO DAILY PRN (Reason: Constipation) 0RF metoclopramide HCl 10 mg tablet 10 mg PO Q6H PRN (Reason: nausea and vomiting) Qty: 20 0RF pravastatin 40 mg Tablet 40 mg PO BEDTIME 0RF naloxone 0.4 mg/mL Solution 0.4 mg IM Q2M PRN (Reason: overdose) 0RF acetaminophen 500 mg Tablet 500 mg PO Q6H PRN (Reason: Pain) 0RF simethicone 80 mg Tablet,Chewable 80 mg PO .AFTER MEALS 0RF polyethylene glycol 3350 [Miralax] 17 gram/dose powder 17 g PO DAILY PRN (Reason: constipation) 0RF bisacodyl [Dulcolax (bisacodyl)] 10 mg Suppository 10 mg MN DAILY PRN (Reason: Constipation) 0RF Rx Instructions: Give rectally if can't take p/o, if no results from MOM tizanidine 4 mg Tablet 4 mg PO TID@08,14,20 PRN (Reason: unknown) 0RF fentanyl 50 mcg/hr Patch 72 Hour 1 patch TRANSDERMAL Q72H Qty: 5 0RF morphine concentrate 100 mg/5 mL (20 mg/mL) solution 5 mg PO Q4H PRN (Reason: Pain) Qty: 30 0RF alprazolam [Xanax] 0.25 mg Tablet 0.25 mg PO TID PRN (Reason: Anxiety) Qty: 10 0RF ondansetron HCl 4 mg Tablet 4 mg PO Q6H PRN (Reason: Nausea) 0RF Relistor 12 mg/0.6 mL Syringe 6 mg SUBCUT Q3D PRN (Reason: Constipation) 0RF gabapentin 600 mg tablet 1,200 mg PO TID 0RF docusate sodium [Colace] 100 mg Capsule 100 mg PO BID 0RF insulin lispro [Humalog KwikPen Insulin] 100 unit/mL Insulin Pen See Rx Instructions .ROUTE .COMPLEX 0RF Rx Instructions: SLIDING SCALE- BLOOD SUGAR 125-150 GIVE 2 UNITS, 151-200 GIVE 4 UNITS, 201-250 GIVE 6 UNITS, 251-300 GIVE 8 UNITS, 301-350 GIVE 10 UNITS, 351-400 GIVE 12 UNITS pregabalin [Lyrica] 50 mg Capsule 50 mg PO BID 0RF calcium carbonate [Tums Ultra] 400 mg calcium (1,000 mg) Tablet,Chewable 400 mg PO DAILY PRN (Reason: Heartburn) 0RF magnesium hydroxide [Milk of Magnesia] 400 mg/5 mL suspension 5 ml PO DAILY Qty: 355 0RF metformin 850 mg Tablet 850 mg PO BID 0RF potassium chloride 20 mEq Tablet Extended Release 20 meq PO DAILY 0RF Discharge Orders: Discharge ED (Routine); Ordered 04/07/22 Ordered By: Liliana Anderson Discharge Diet: Advance as tolerated Discharge Activity: Resume usual activity Patient Instructions: Altered Mental Status (ED) Coding Level of Care Code ED Fruit Grower for Julien Magaña
[2022-04-07 22:17] VITALS: BP 108/68; PULSE 89; RESP 16; O2SAT 93
[2022-04-07 22:20] LABS: Basophils % 0.5 %; Eosinophils # 0.3 10^3/uL (0.0-0.8); Eosinophils % 3.8 %; Hemoglobin 13.5 g/dL (11.5-15.3); Lymphocytes # 2.3 10^3/uL (0.8-4.8); Lymphocytes % 29.7 %; Mean Corpuscular HGB Conc 32.1 g/dL (30.0-36.0); Mean Corpuscular Hemoglobin 28.7 pg (28.0-34.0); Mean Corpuscular Volume 89.4 fl (81-99); Mean Platelet Volume 10.3 fL (7.4-10.4); Monocytes # 0.6 10^3/uL (0.2-0.9); Monocytes % 8.3 %; Neutrophils # 4.35 10^3/uL (1.8-7.7); Neutrophils % 57.2 %; Nucleated Red Blood Cells % 0 %; Platelet Count 272 10^3/cmm (130-400); Red Cell Distribution Width 13.7 % (12.1-15.1); White Blood Count 7.6 10^3/uL (4.0-10.0)
[2022-04-07 22:37] LABS: Bilirubin Urine Neg (Negative); Blood Urine 2+ (Negative); Glucose Urine UA Norm (Normal); Ketones Urine Negative (Negative); Leukocyte Esterase Urine 2+ (Negative); Nitrate Urine Positive (Negative); Protein Urine 1+ (Negative); RBC Urine 0-4 /hpf (0-2); Urine Appearance Hazy (CLEAR); Urine Color Yellow (Yellow); Urobilinogen Urine Norm (Negative); WBC Urine >100 /hpf (0-5); pH Urine 6.5 (5-7)
[2022-04-07 22:38] LABS: Add Urine Culture? Yes; Add Urine Microscopic? YES; Bacteria Urine 3+ /hpf
[2022-04-07 22:38] LABS: Alanine Aminotransferase 13 U/L (0-33); Albumin Level 3.6 g/dL (3.5-5.2); Alkaline Phosphatase 101 IU/L (35-105); Anion Gap 17.2 (5-19); Aspartate Amino Transferase 13 U/L (0-32); Blood Urea Nitrogen 17 mg/dL (6-20); Calcium 8.8 mg/dL (8.5-10.5); Carbon Dioxide 25 mmol/L (22-29); Chloride 103 mmol/L (98-107); Globulin 4.1 g/dL (1.3-4.6); Glomerular Filtration Rate 89.7 mL/min (90-130); Glucose 134 mg/dL (65-115); Osmolality Calculated 296 mOsm/kg (285-295); Potassium 4.2 mmol/L (3.5-5.1); Sodium 141 mmol/L (136-145); Total Bilirubin 0.2 mg/dL (0.15-1.2); Total Protein 7.7 g/dL (6.6-8.7)
[2022-04-07] MEDS: morphine 4 mg/mL SDV 1 mL IM (23:20)
[2022-04-07] MEDS: ondansetron 2 mg/ML SDV 2 mL 4 MG IVP (23:20)
[2022-04-08 01:09] VITALS: BP 109/78; PULSE 85; RESP 16; O2SAT 94
[2022-04-08 02:14] VITALS: BP 109/78; PULSE 85; RESP 16; O2SAT 94
[2022-04-08] MEDS: morphine 4 mg/mL SDV 1 mL IVP (02:14)
== END 2022-04-08 02:17 | disposition home or self-care (01) ==
PROVIDERS: Emergency Provider Emergency Medicine
DX: G89.29 Other chronic pain (principal); G82.20 Paraplegia, unspecified; N31.9 Neuromuscular dysfunction of bladder, unspecified
CPT/HCPCS: 70450; 71045; 80053; 81001; 85025; 87077; 87086; 87186; 93005; 96374; 96375; 99284; J2270; J2405

== ENCOUNTER 2022-04-21 18:07 | Emergency (ER) | payer MEDICARE, MEDICAID, SELFPAY ==
[2022-04-21] VITALS (11 sets, daily range): BP systolic 121–141; BP diastolic 81–91; PULSE 77–88; RESP 14–21; TEMP 36.6; O2SAT 90–99
--- NOTE | 2022-04-21 18:08 | CTR_ITS ---
PROCEDURE INFORMATION: Exam: CT Abdomen And Pelvis Without Contrast Exam date and time: 04/21/2022 7:09 PM Age: 47 years old Clinical indication: Abdominal pain; Generalized; Prior surgery; Surgery type: Partial gastrectomy. Partial cystectomy. Hysterectomy. Patient HX: C/O abd pain with diarrhea TECHNIQUE: Imaging protocol: Computed tomography of the abdomen and pelvis without contrast. Radiation optimization: All CT scans at this facility use at least one of these dose optimization techniques: automated exposure control; mA and/or kV adjustment per patient size (includes targeted exams where dose is matched to clinical indication); or iterative reconstruction. COMPARISON: CT abdomen pelvis wo con [id number] 03/07/2022 10:17 AM RADIATION DOSE METRICS: Total DLP (mGy-cm): 2597.25 FINDINGS: Heart: Mild coronary arterial calcifications are noted. Liver: Normal. No mass. Gallbladder and bile ducts: Normal. No calcified stones. No ductal dilation. Pancreas: Normal. No ductal dilation. Spleen: Normal. No splenomegaly. Adrenal glands: Left adrenal nodule shows chronic stability. Kidneys and ureters: Normal. No hydronephrosis. Stomach and bowel: Gastric surgical changes are noted. Marked reduction in colonic stool. Mild wall thickening in portions of small bowel and colon . Large quantity of fluid and particulate material in stomach can be correlated with recent p.o. intake or delay in gastric emptying. Appendix: No evidence of appendicitis. Intraperitoneal space: Unremarkable. No free air. No significant fluid collection. Vasculature: Minimal vascular calcifications are noted. No findings of abdominal aortic aneurysm. Lymph nodes: Unremarkable. No enlarged lymph nodes. Urinary bladder: Dumont catheter is well positioned in urinary bladder. Reproductive: Hysterectomy. Cystic findings at right adnexal region show chronic stability. Bones/joints: No acute fracture. Soft tissues: Unremarkable. CT/CT abdomen pelvis wo con [id number] IMPRESSION: Suspicion for infectious/inflammatory changes of small bowel and colon. Large quantity of fluid and particulate material in stomach can be correlated with recent p.o. intake or delay in gastric emptying.
--- NOTE | 2022-04-21 18:14 | W.ED.ABDPA2 ---
HPI - Abdominal Pain General: Chief Complaint: Nausea/Vomiting/Diarrhea Stated Complaint: N/V/ EMESIS Time Seen by Provider: 04/21/22 18:07 Source: patient and EMS Mode of arrival: EMS Limitations: no limitations History of Present Illness: 47-year-old female is very well-known to ER as a quadriplegic has had multiple abdominal surgeries in the past. States she is been having severe abdominal pain that started this evening with fecal like vomitus at the custodial. She states that she has had a peptic ulcer in the past she states her pain is diffuse in nature rates it an 8 out of 10 denies any worsening improving factors she had some diarrhea as well. Associated Symptoms: Reports nausea and vomiting; Denies chills, dysuria and fever(s) Review of Systems Const: Denies: fever(s), chills, body aches or change in appetite Eyes: Denies: blurry vision or eye discomfort ENMT: Denies: throat pain or dental pain Card: Denies: chest pain Resp: Denies: dyspnea GI: Reports: abdominal pain, nausea and vomiting : Denies: dysuria Musc: Denies: neck pain or back pain Skin/Breast: Denies: rash Neuro: Denies: headache(s) Psych: Denies: depression Raul/Lymph: Denies: easy bruising All/Imm: Denies: urticaria PFSH ED PFSH: Medical History Chronic indwelling Dumont catheter Hydronephrosis Neurogenic bladder Perforated abdominal viscus Condition resolved Post-traumatic quadriplegia PVD (peripheral vascular disease) Quadriplegia Recurrent sepsis due to urinary tract infection Surgical History H/O bladder repair surgery H/O cystoscopy H/O partial cystectomy H/O Spinal surgery History of hysterectomy History of partial gastrectomy Family History Other CAD (coronary artery disease) Diabetes Hypertension Social History Alcohol intake: never Household members: spouse Housing: House Marital status: Current occupational status: disabled Physical Exam Const: COMMON NORMALS: patient oriented x3 and healthy appearing HENMT: COMMON NORMALS: normocephalic and atraumatic HEAD & SCALP: normocephalic and atraumatic Eye: COMMON NORMALS: Equal, round and reactive pupils present and EOMs intact bilaterally PUPIL: Yes Equal, round and reactive pupils present Neck/C-Spine: COMMON NORMALS: full ROM and supple Chest: COMMONS NORMALS: normal inspection of the chest and normal palpation of entire chest wall Resp: COMMON NORMALS: normal respiratory effort, No retractions, No use of accessory muscles and clear to auscultation bilaterally AUSCULTATION: clear to auscultation bilaterally Cardio: COMMON NORMALS: regular rate, regular rhythm and No murmurs present (Cardio) RATE: regular rate RHYTHM: regular rhythm GI: COMMON NORMALS: Normal to inspection, nondistended, normoactive bowel sounds present and no masses OTHER: diffuse tenderness Extremity: COMMON NORMALS: normal to inspection Neuro: COMMON NORMALS: patient oriented x3; negative for moves all extremities Psych: COMMON NORMALS: mental status grossly normal, Normal thought process present and cooperative THOUGHT PROCESS: Normal thought process present Skin: COMMON NORMALS: no rashes or lesions noted and no wounds GENERAL SKIN EXAM: no rashes or lesions noted Course Vital Signs: Vital signs: Vital Signs Temperature 97.9 F 04/21/22 19:38 Pulse Rate 81 04/21/22 22:00 Respiratory Rate 18 04/21/22 22:00 Blood Pressure 124/87 04/21/22 22:00 Pulse Oximetry 97 04/21/22 22:00 MDM - Abdominal Pain Medical Decision Making Patient presents with abdominal pain along with vomiting CT does show a possible colitis her white count and lactate here are normal. She has no signs of obstruction. We will start her on Cipro and Flagyl have her follow-up with surgery she is to return if worsening she understands agrees to plan. Lab Data : 04/21/22 19:54 04/21/22 18:15 Labs/Radiology: Radiology Impressions Abdomen/Pelvis CT 04/21/22 18:08 IMPRESSION: Suspicion for infectious/inflammatory changes of small bowel and colon. Large quantity of fluid and particulate material in stomach can be correlated with recent p.o. intake or delay in gastric emptying. Laboratory Results WBC 10.8 10^3/uL (4.0-10.0) H 04/21/22 19:54 Corrected WBC Cancelled 04/21/22 18:15 RBC 4.77 10^6/uL (4.1-5.3) 04/21/22 19:54 Hgb 14.1 g/dL (11.5-15.3) 04/21/22 19:54 Hct 42.1 % (37.0-47.0) 04/21/22 19:54 MCV 88.3 fl (81-99) 04/21/22 19:54 MCH 29.6 pg (28.0-34.0) 04/21/22 19:54 MCHC 33.5 g/dL (30.0-36.0) 04/21/22 19:54 RDW 13.8 % (12.1-15.1) 04/21/22 19:54 Plt Count 285 10^3/cmm (130-400) 04/21/22 19:54 MPV 10.1 fL (7.4-10.4) 04/21/22 19:54 Gran % Cancelled 04/21/22 18:15 Neut % (Auto) 85.1 % 04/21/22 19:54 Lymph % (Auto) 8.9 % 04/21/22 19:54 [place] % (Auto) 4.6 % 04/21/22 19:54 Eos % (Auto) 0.6 % 04/21/22 19:54 Baso % (Auto) 0.3 % 04/21/22 19:54 Neut # (Auto) 9.16 10^3/uL (1.8-7.7) H 04/21/22 19:54 Lymph # (Auto) 1.0 10^3/uL (0.8-4.8) 04/21/22 19:54 [place] # (Auto) 0.5 10^3/uL (0.2-0.9) 04/21/22 19:54 Eos # (Auto) 0.1 10^3/uL (0.0-0.8) 04/21/22 19:54 Baso # (Auto) 0.0 10^3/uL (0.0-0.1) 04/21/22 19:54 Absolute Gran (auto) Cancelled 04/21/22 18:15 Nucleated RBC % (auto) 0 % 04/21/22 19:54 Nucleated RBCs # 0.0 /100WBC 04/21/22 19:54 Sodium 138 mmol/L (136-145) 04/21/22 18:15 Potassium 4.2 mmol/L (3.5-5.1) 04/21/22 18:15 Chloride 99 mmol/L (98-107) 04/21/22 18:15 Carbon Dioxide 25 mmol/L (22-29) 04/21/22 18:15 Anion Gap 18.2 (5-19) 04/21/22 18:15 BUN 11 mg/dL (6-20) 04/21/22 18:15 Creatinine 0.5 mg/dL (0.5-0.9) 04/21/22 18:15 GFR Calculation 132.2 mL/min (90-130) H 04/21/22 18:15 Glucose 120 mg/dL (65-115) H 04/21/22 18:15 Calculated Osmolality 287 mOsm/kg (285-295) 04/21/22 18:15 Lactate 1.9 mmol/L (0.5-2.2) 04/21/22 19:30 Calcium 9.8 mg/dL (8.5-10.5) 04/21/22 18:15 Total Bilirubin 0.2 mg/dL (0.15-1.2) 04/21/22 18:15 AST 21 U/L (0-32) 04/21/22 18:15 ALT 21 U/L (0-33) 04/21/22 18:15 Alkaline Phosphatase 89 IU/L (35-105) 04/21/22 18:15 Total Protein 8.2 g/dL (6.6-8.7) 04/21/22 18:15 Albumin 4.4 g/dL (3.5-5.2) 04/21/22 18:15 Globulin 3.8 g/dL (1.3-4.6) 04/21/22 18:15 Lipase 29 U/L (13-60) 04/21/22 18:15 Discharge Plan Discharge Patient Disposition: Home Clinical Impression: Vomiting, Abdominal pain, Colitis Condition: Stable Prescriptions: New metronidazole 500 mg tablet 500 mg PO Q8H 7 Days Qty: 21 0RF Cipro 500 mg tablet 500 mg PO BID Qty: 14 0RF ondansetron 4 mg tablet,disintegrating 4 mg PO Q6H PRN (Reason: nausea and vomiting) Qty: 14 0RF No Action ascorbic acid (vitamin C) [Vitamin C] 1,000 mg Tablet 1,000 mg PO BID@08,20 0RF methenamine hippurate 1 gram Tablet 1 g PO BID@08,20 0RF magnesium hydroxide [Milk of Magnesia] 400 mg/5 mL Suspension 30 ml PO DAILY PRN (Reason: Constipation) 0RF Rx Instructions: If no BM in 3 days. pantoprazole 40 mg Tablet,Delayed Release (Dr/Ec) 40 mg PO DAILY 0RF nystatin 100,000 unit/gram Cream See Rx Instructions .ROUTE .COMPLEX 0RF Rx Instructions: APPLY TO RED AREA EVERY SHIFT Fleet Enema 19-7 gram/118 mL Enema 118 ml IN DAILY PRN (Reason: Constipation) 0RF lactulose 10 gram/15 mL (15 mL) Solution 30 ml PO TID 0RF sennosides-docusate sodium [Senna Plus] 8.6-50 mg Tablet 2 tab PO BID@08,20 0RF sertraline [Zoloft] 25 mg Tablet 50 mg PO DAILY@08 0RF bisacodyl [Dulcolax (bisacodyl)] 5 mg Tablet,Delayed Release (Dr/Ec) 5 mg PO DAILY PRN (Reason: Constipation) 0RF metoclopramide HCl 10 mg tablet 10 mg PO Q6H PRN (Reason: nausea and vomiting) Qty: 20 0RF pravastatin 40 mg Tablet 40 mg PO BEDTIME 0RF naloxone 0.4 mg/mL Solution 0.4 mg IM Q2M PRN (Reason: overdose) 0RF acetaminophen 500 mg Tablet 500 mg PO Q6H PRN (Reason: Pain) 0RF simethicone 80 mg Tablet,Chewable 80 mg PO .AFTER MEALS 0RF polyethylene glycol 3350 [Miralax] 17 gram/dose powder 17 g PO DAILY PRN (Reason: constipation) 0RF bisacodyl [Dulcolax (bisacodyl)] 10 mg Suppository 10 mg IN DAILY PRN (Reason: Constipation) 0RF Rx Instructions: Give rectally if can't take p/o, if no results from MOM tizanidine 4 mg Tablet 4 mg PO TID@08,14,20 PRN (Reason: unknown) 0RF fentanyl 50 mcg/hr Patch 72 Hour 1 patch TRANSDERMAL Q72H Qty: 5 0RF morphine concentrate 100 mg/5 mL (20 mg/mL) solution 5 mg PO Q4H PRN (Reason: Pain) Qty: 30 0RF alprazolam [Xanax] 0.25 mg Tablet 0.25 mg PO TID PRN (Reason: Anxiety) Qty: 10 0RF ondansetron HCl 4 mg Tablet 4 mg PO Q6H PRN (Reason: Nausea) 0RF Relistor 12 mg/0.6 mL Syringe 6 mg SUBCUT Q3D PRN (Reason: Constipation) 0RF gabapentin 600 mg tablet 1,200 mg PO TID 0RF docusate sodium [Colace] 100 mg Capsule 100 mg PO BID 0RF insulin lispro [Humalog KwikPen Insulin] 100 unit/mL Insulin Pen See Rx Instructions .ROUTE .COMPLEX 0RF Rx Instructions: SLIDING SCALE- BLOOD SUGAR 125-150 GIVE 2 UNITS, 151-200 GIVE 4 UNITS, 201-250 GIVE 6 UNITS, 251-300 GIVE 8 UNITS, 301-350 GIVE 10 UNITS, 351-400 GIVE 12 UNITS pregabalin [Lyrica] 50 mg Capsule 50 mg PO BID 0RF calcium carbonate [Tums Ultra] 400 mg calcium (1,000 mg) Tablet,Chewable 400 mg PO DAILY PRN (Reason: Heartburn) 0RF magnesium hydroxide [Milk of Magnesia] 400 mg/5 mL suspension 5 ml PO DAILY Qty: 355 0RF metformin 850 mg Tablet 850 mg PO BID 0RF potassium chloride 20 mEq Tablet Extended Release 20 meq PO DAILY 0RF Discharge Orders: Discharge ED (Routine); Ordered 04/21/22 Ordered By: Liliana Anderson Referrals: Andrew Lo DO [Physician] - 1-3 days Discharge Diet: Advance as tolerated Discharge Activity: Resume usual activity Patient Instructions: Abdominal Pain (ED), Colitis (ED) Coding Level of Care Code ED Regional Loss Prevention Manager for Julien Fwd Exam Comprehensive
[2022-04-21 18:42] LABS: Alanine Aminotransferase 21 U/L (0-33); Albumin Level 4.4 g/dL (3.5-5.2); Alkaline Phosphatase 89 IU/L (35-105); Aspartate Amino Transferase 21 U/L (0-32); Blood Urea Nitrogen 11 mg/dL (6-20); Calcium 9.8 mg/dL (8.5-10.5); Carbon Dioxide 25 mmol/L (22-29); Chloride 99 mmol/L (98-107); Globulin 3.8 g/dL (1.3-4.6); Glomerular Filtration Rate 132.2 mL/min (90-130); Glucose 120 mg/dL (65-115); Lipase 29 U/L (13-60); Osmolality Calculated 287 mOsm/kg (285-295); Sodium 138 mmol/L (136-145); Total Bilirubin 0.2 mg/dL (0.15-1.2); Total Protein 8.2 g/dL (6.6-8.7)
[2022-04-21] MEDS: morphine 4 mg/mL SDV 1 mL IM (18:45)
[2022-04-21] MEDS: ondansetron 2 mg/ML SDV 2 mL 4 MG IM (18:46)
[2022-04-21 18:57] LABS: Anion Gap 18.2 (5-19); Potassium 4.2 mmol/L (3.5-5.1)
[2022-04-21] MEDS: morphine 4 mg/mL SDV 1 mL IVP (19:36)
[2022-04-21] MEDS: ondansetron 2 mg/ML SDV 2 mL 4 MG IVP (19:37)
[2022-04-21 19:59] LABS: Basophils % 0.3 %; Eosinophils # 0.1 10^3/uL (0.0-0.8); Eosinophils % 0.6 %; Hematocrit 42.1 % (37.0-47.0); Hemoglobin 14.1 g/dL (11.5-15.3); Lymphocytes % 8.9 %; Mean Corpuscular HGB Conc 33.5 g/dL (30.0-36.0); Mean Corpuscular Hemoglobin 29.6 pg (28.0-34.0); Mean Corpuscular Volume 88.3 fl (81-99); Mean Platelet Volume 10.1 fL (7.4-10.4); Monocytes # 0.5 10^3/uL (0.2-0.9); Monocytes % 4.6 %; Neutrophils # 9.16 10^3/uL (1.8-7.7); Neutrophils % 85.1 %; Nucleated Red Blood Cells % 0 %; Platelet Count 285 10^3/cmm (130-400); Red Blood Count 4.77 10^6/uL (4.1-5.3); Red Cell Distribution Width 13.8 % (12.1-15.1); White Blood Count 10.8 10^3/uL (4.0-10.0)
[2022-04-21 20:15] LABS: Lactate (Lactic Acid level) 1.9 mmol/L (0.5-2.2)
[2022-04-21] MEDS: HYDROmorphone 1 mg/mL INJ 1 mL IVP (22:27)
--- NOTE | 2022-04-29 07:44 | DCPLANNER ---
Addendum entered by Princess Garcia 05/19/22 13:56: food processing plant manager was sent the following message regarding follow up from general surgery: Patient is in ICU currently to hold off on referral. [facility] will contact us Original Note: food processing plant manager had message to schedule a follow up appointment for patient with general surgery. food processing plant manager sent patients information to the front office staff at general surgery. Patients information will be printed and reviewed. Clinic will call patient with appointment information.
== END 2022-04-21 22:48 | disposition home or self-care (01) ==
PROVIDERS: Emergency Provider Emergency Medicine
DX: K52.9 Noninfective gastroenteritis and colitis, unspecified (principal); Z79.4 Long term (current) use of insulin; G82.50 Quadriplegia, unspecified
CPT/HCPCS: 51702; 74176; 80053; 83605; 83690; 85025; 96372; 96374; 96375; 99284; J1170; J2270; J2405

== ENCOUNTER 2022-05-01 17:18 | Inpatient (IN) | payer MEDICARE, MEDICAID, SELFPAY ==
[2022-05-01] VITALS (10 sets, daily range): BP systolic 94–130; BP diastolic 57–96; PULSE 79–140; RESP 13–23; TEMP 37.1–39.7; O2SAT 96–98; BMI 24.9
--- NOTE | 2022-05-01 17:42 | CTR_ITS ---
PROCEDURE INFORMATION: Exam: CT Abdomen And Pelvis Without Contrast Exam date and time: 05/01/2022 6:09 PM Age: 47 years old Clinical indication: Device placement; Urinary device; Other: Suprapubic catheter placement 04/30; Prior surgery; Surgery date: 3-7 days post-operative; Patient HX: Quadriplegic; Additional info: Fever recent suprapubic catheter. TECHNIQUE: Imaging protocol: Computed tomography of the abdomen and pelvis without contrast. Radiation optimization: All CT scans at this facility use at least one of these dose optimization techniques: automated exposure control; mA and/or kV adjustment per patient size (includes targeted exams where dose is matched to clinical indication); or iterative reconstruction. COMPARISON: CT abdomen pelvis wo con [id number] 04/21/2022 7:09 PM RADIATION DOSE METRICS: Total DLP (mGy-cm): 1129.13 FINDINGS: Tubes, catheters and devices: A suprapubic catheter is noted with its tip in the urinary bladder. Lungs: Bibasilar subsegmental atelectasis is noted. Heart: The heart is normal in size. Liver: Normal. No mass. Gallbladder and bile ducts: Normal. No calcified stones. No ductal dilation. Pancreas: Normal. No ductal dilation. Spleen: Normal. No splenomegaly. Adrenal glands: A small 10 mm adenoma is present in the left adrenal gland. The right adrenal gland appears normal. Kidneys and ureters: Mild bilateral hydronephrosis is appreciated. No renal stone is visualized. Mild right perinephric stranding is appreciated. Stomach and bowel: Prior surgical changes are seen in the stomach. Several loops of small bowel and the colon are mildly distended. No focal point of obstruction is seen. No intestinal wall thickening. Appendix: The appendix is normal. Intraperitoneal space: Unremarkable. No free air. No significant fluid collection. Vasculature: Unremarkable. No abdominal aortic aneurysm. Lymph nodes: Unremarkable. No enlarged lymph nodes. Urinary bladder: Unremarkable as visualized. Reproductive: The uterus is absent. An oblong 6.4 x 3 cm cystic structure is again seen in the right adnexal region, which appear stable. The left ovary appears normal. Bones/joints: Unremarkable. No acute fracture. Soft tissues: Unremarkable. CT/CT kidney stone [id number] IMPRESSION: 1. Possible mild right pyelonephritis, correlate with urinalysis. 2. Interval placement of a suprapubic catheter, which appears in good position. 3. Left adrenal adenoma. 4. Ileus. COMMENTS: Consistent with the [employer]'s Incidental Findings Committee white paper (J Am Karine Radiol 2017): For any incidental adrenal lesion greater than or equal to 1 cm but less than or equal to 4 cm classified in this report as benign, likely benign, or containing fat (including classification as an adenoma or myelolipoma), no follow-up imaging is recommended per consensus recommendations based on imaging criteria. Further lab evaluation could be pursued if warranted based on clinical findings.
--- NOTE | 2022-05-01 17:42 | W.ED.FEVER ---
Documented by User: Devin Witt DO 05/02/22 06:54 HPI - Fever General: Chief Complaint: Fever Stated Complaint: FEVER/ CATHETER PAIN Time Seen by Provider: 05/01/22 17:24 Source: patient Mode of arrival: ambulatory Limitations: no limitations History of Present Illness: 47-year-old female presents emergency room from [facility] with acute fever. On arrival patient is acutely ill febrile and quite anxious. She had a suprapubic catheter placed yesterday. Catheter is still draining appropriately no significant hematuria. She is complaining of sensation of some shortness of breath however sats are normal. Patient is quadriplegic due to traumatic incidents that she has not mild sensation from her abdomen. 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) Onset (ago): hour(s) Context: recent procedure (Prepubic catheter) Exacerbating factors: nothing Relieving factors: nothing Associated symptoms: Reports abdominal pain, chills, myalgias and short of breath; Deny flank pain, chest pain, confusion, cough, diarrhea, dysuria, extremity pain, headache(s), nasal congestion, nausea, night sweats, rash, rhinorrhea, sinus pain, stiffness, sore throat, vomiting or weight loss Treatments prior to arrival fever: none Review of Systems Const: Reports: fever(s), chills, change in appetite, fatigue and malaise; Denies: night sweats ENMT: Denies: nasal congestion or sinus pain Card: Reports: palpitations; Denies: chest pain or irregular heart rhythm Resp: Reports: dyspnea; Denies: productive cough or non-productive cough GI: Reports: abdominal pain; Denies: nausea, vomiting, hematemesis or diarrhea : Reports: difficulty voiding; Denies: flank pain, dysuria, urinary frequency or urinary urgency Musc: Denies: extremity pain Skin/Breast: Denies: rash or pruritus Neuro: Denies: headache(s) or confusion PFSH ED PFSH: Medical History Chronic indwelling Dumont catheter Hydronephrosis Neurogenic bladder Perforated abdominal viscus Condition resolved Post-traumatic quadriplegia PVD (peripheral vascular disease) Quadriplegia Recurrent sepsis due to urinary tract infection Surgical History H/O bladder repair surgery H/O cystoscopy H/O partial cystectomy H/O Spinal surgery History of hysterectomy History of partial gastrectomy Family History Other CAD (coronary artery disease) Diabetes Hypertension Social History Alcohol intake: never Household members: spouse Housing: House Marital status: Current occupational status: disabled Physical Exam Const: GENERAL APPEARANCE: cooperative ORIENTATION/CONSCIOUSNESS: Yes awake, Yes oriented to person, Yes oriented to place and Yes oriented to time HENMT: COMMON NORMALS: normocephalic, atraumatic and hearing grossly normal bilaterally HEAD & SCALP: normocephalic and atraumatic Eye: COMMON NORMALS: Equal, round and reactive pupils present, EOMs intact bilaterally, conjunctivae normal and no scleral icterus CONJUNCTIVA: Yes conjunctivae normal PUPIL: Yes Equal, round and reactive pupils present Resp: COMMON NORMALS: normal respiratory effort, No retractions, No use of accessory muscles and clear to auscultation bilaterally AUSCULTATION: clear to auscultation bilaterally Cardio: COMMON NORMALS: regular rhythm and No murmurs present (Cardio) RATE: tachycardic RHYTHM: regular rhythm GI: COMMON NORMALS: No hepatosplenomegaly present AUSCULTATION: Yes normoactive bowel sounds PALPATION: Yes Tenderness to palpation present (GI) (Suprapubic), No Guarding due to palpation present (GI) and Yes No hepatosplenomegaly present : COMMON NORMALS: Yes no CVA tenderness BLADDER/KIDNEY EXAM: Yes no CVA tenderness Back/Pelvis: COMMON NORMALS: no CVA tenderness Extremity: COMMON NORMALS: normal to inspection, capillary refill normal, no clubbing, cyanosis or edema, no calf tenderness and no pedal edema Neuro: SENSORIUM/ORIENTATION: Yes oriented to person, Yes oriented to place and Yes oriented to time Skin: COMMON NORMALS: no rashes or lesions noted GENERAL SKIN EXAM: no rashes or lesions noted Course Vital Signs: Vital signs: Vital Signs Temperature 100.5 F H 05/02/22 04:00 Pulse Rate 95 05/02/22 06:00 Respiratory Rate 16 05/02/22 06:00 Blood Pressure 102/57 05/02/22 06:00 Pulse Oximetry 90 05/02/22 06:00 MDM - Fever Medical Decision Making Patient seen initially in initial labs and cultures were done and started on Primaxin due to recent in-hospital procedure. Anticipate urosepsis/pyelonephritis. Care signed out to Dr. Anderson at change of shift. See final notes for diagnosis and disposition. Patient presents here with fever likely pyelonephritis. Patient does have an elevated white count fever here patient started on IV antibiotics her blood pressure here has been stable I spoke to hospitalist will admit at this time. Medical Records I reviewed the patient's medical records. Lab Data I reviewed the patient's lab results. : 05/02/22 04:45 05/02/22 04:45 Radiology Impressions Abdomen/Pelvis CT 05/01/22 17:42 IMPRESSION: 1. Possible mild right pyelonephritis, correlate with urinalysis. 2. Interval placement of a suprapubic catheter, which appears in good position. 3. Left adrenal adenoma. 4. Ileus. COMMENTS: Consistent with the [employer]'s Incidental Findings Committee white paper (J Am Karine Radiol 2017): For any incidental adrenal lesion greater than or equal to 1 cm but less than or equal to 4 cm classified in this report as benign, likely benign, or containing fat (including classification as an adenoma or myelolipoma), no follow-up imaging is recommended per consensus recommendations based on imaging criteria. Further lab evaluation could be pursued if warranted based on clinical findings. Laboratory Results WBC 15.9 10^3/uL (4.0-10.0) H 05/01/22 17:55 RBC 4.59 10^6/uL (4.1-5.3) 05/01/22 17:55 Hgb 13.4 g/dL (11.5-15.3) 05/01/22 17:55 Hct 41.9 % (37.0-47.0) 05/01/22 17:55 MCV 91.3 fl (81-99) 05/01/22 17:55 MCH 29.2 pg (28.0-34.0) 05/01/22 17:55 MCHC 32.0 g/dL (30.0-36.0) 05/01/22 17:55 RDW 14.6 % (12.1-15.1) 05/01/22 17:55 Plt Count 267 10^3/cmm (130-400) 05/01/22 17:55 MPV 10.3 fL (7.4-10.4) 05/01/22 17:55 Neut % (Auto) 84.8 % 05/01/22 17:55 Lymph % (Auto) 6.8 % 05/01/22 17:55 [place] % (Auto) 7.5 % 05/01/22 17:55 Eos % (Auto) 0.0 % 05/01/22 17:55 Baso % (Auto) 0.3 % 05/01/22 17:55 Neut # (Auto) 13.45 10^3/uL (1.8-7.7) H 05/01/22 17:55 Lymph # (Auto) 1.1 10^3/uL (0.8-4.8) 05/01/22 17:55 [place] # (Auto) 1.2 10^3/uL (0.2-0.9) H 05/01/22 17:55 Eos # (Auto) 0.0 10^3/uL (0.0-0.8) 05/01/22 17:55 Baso # (Auto) 0.0 10^3/uL (0.0-0.1) 05/01/22 17:55 Nucleated RBC % (auto) 0 % 05/01/22 17:55 Nucleated RBCs # 0.0 /100WBC 05/01/22 17:55 Sodium 135 mmol/L (136-145) L 05/01/22 17:55 Potassium 4.0 mmol/L (3.5-5.1) 05/01/22 17:55 Chloride 97 mmol/L (98-107) L 05/01/22 17:55 Carbon Dioxide 24 mmol/L (22-29) 05/01/22 17:55 Anion Gap 18.0 (5-19) 05/01/22 17:55 BUN 12 mg/dL (6-20) 05/01/22 17:55 Creatinine 1.1 mg/dL (0.5-0.9) H 05/01/22 17:55 GFR Calculation 53.2 mL/min (90-130) L 05/01/22 17:55 Glucose 230 mg/dL (65-115) H 05/01/22 17:55 Calculated Osmolality 287 mOsm/kg (285-295) 05/01/22 17:55 Lactic Acid 2.9 mmol/L (0.5-2.2) H 05/01/22 17:55 Calcium 8.5 mg/dL (8.5-10.5) 05/01/22 17:55 Total Bilirubin 0.2 mg/dL (0.15-1.2) 05/01/22 17:55 AST 18 U/L (0-32) 05/01/22 17:55 ALT 16 U/L (0-33) 05/01/22 17:55 Alkaline Phosphatase 91 IU/L (35-105) 05/01/22 17:55 Total Protein 7.5 g/dL (6.6-8.7) 05/01/22 17:55 Albumin 3.9 g/dL (3.5-5.2) 05/01/22 17:55 Globulin 3.6 g/dL (1.3-4.6) 05/01/22 17:55 Urine Color Yellow (Yellow) 05/01/22 18:39 Urine Appearance Sl cloudy (CLEAR) A 05/01/22 18:39 Urine pH 7 (5-7) 05/01/22 18:39 Ur Specific [place] 1.005 (1.005-1.030) 05/01/22 18:39 Urine Protein 3+ (Negative) H 05/01/22 18:39 Urine Glucose (UA) Norm (Normal) 05/01/22 18:39 Urine Ketones 1+ (Negative) H 05/01/22 18:39 Urine Blood 3+ (Negative) H 05/01/22 18:39 Urine Nitrate Positive (Negative) H 05/01/22 18:39 Urine Bilirubin Neg (Negative) 05/01/22 18:39 Urine Urobilinogen Norm mg/dL (Negative) 05/01/22 18:39 Ur Leukocyte Esterase 2+ (Negative) H 05/01/22 18:39 Urine RBC 5-10 /hpf (0-2) H 05/01/22 18:39 Urine WBC Too numerous to cnt /hpf (0-5) H 05/01/22 18:39 Ur Squamous Epith Cells 0-4 /hpf (0-5) H 05/01/22 18:39 Amorphous Sediment Not Reportable 05/01/22 18:39 Urine Bacteria 3+ /hpf (NONE) H 05/01/22 18:39 Discharge Plan Discharge Admit Provider: Simon Huitron Condition: Stable Coding Level of Care Code [facility] for Chg Fwd Documented by User: Liliana Anderson MD 05/01/22 19:53 HPI - Fever General: Chief Complaint: Fever Stated Complaint: FEVER/ CATHETER PAIN Time Seen by Provider: 05/01/22 17:24 History of Present Illness: . PFSH ED PFSH: Medical History Chronic indwelling Dumont catheter Hydronephrosis Neurogenic bladder Perforated abdominal viscus Condition resolved Post-traumatic quadriplegia PVD (peripheral vascular disease) Quadriplegia Recurrent sepsis due to urinary tract infection Surgical History H/O bladder repair surgery H/O cystoscopy H/O partial cystectomy H/O Spinal surgery History of hysterectomy History of partial gastrectomy Family History Other CAD (coronary artery disease) Diabetes Hypertension Social History Alcohol intake: never Household members: spouse Housing: House Marital status: Current occupational status: disabled Course Vital Signs: Vital signs: Vital Signs Temperature 100.5 F H 05/02/22 04:00 Pulse Rate 95 05/02/22 06:00 Respiratory Rate 16 05/02/22 06:00 Blood Pressure 102/57 05/02/22 06:00 Pulse Oximetry 90 05/02/22 06:00 MDM - Fever Medical Decision Making Patient presents here with fever likely pyelonephritis. Patient does have an elevated white count fever here patient started on IV antibiotics her blood pressure here has been stable I spoke to hospitalist will admit at this time. Lab Data : 05/02/22 04:45 05/02/22 04:45 Radiology Impressions Abdomen/Pelvis CT 05/01/22 17:42 IMPRESSION: 1. Possible mild right pyelonephritis, correlate with urinalysis. 2. Interval placement of a suprapubic catheter, which appears in good position. 3. Left adrenal adenoma. 4. Ileus. COMMENTS: Consistent with the [employer]'s Incidental Findings Committee white paper (J Am Karine Radiol 2017): For any incidental adrenal lesion greater than or equal to 1 cm but less than or equal to 4 cm classified in this report as benign, likely benign, or containing fat (including classification as an adenoma or myelolipoma), no follow-up imaging is recommended per consensus recommendations based on imaging criteria. Further lab evaluation could be pursued if warranted based on clinical findings. Laboratory Results WBC 15.9 10^3/uL (4.0-10.0) H 05/01/22 17:55 RBC 4.59 10^6/uL (4.1-5.3) 05/01/22 17:55 Hgb 13.4 g/dL (11.5-15.3) 05/01/22 17:55 Hct 41.9 % (37.0-47.0) 05/01/22 17:55 MCV 91.3 fl (81-99) 05/01/22 17:55 MCH 29.2 pg (28.0-34.0) 05/01/22 17:55 MCHC 32.0 g/dL (30.0-36.0) 05/01/22 17:55 RDW 14.6 % (12.1-15.1) 05/01/22 17:55 Plt Count 267 10^3/cmm (130-400) 05/01/22 17:55 MPV 10.3 fL (7.4-10.4) 05/01/22 17:55 Neut % (Auto) 84.8 % 05/01/22 17:55 Lymph % (Auto) 6.8 % 05/01/22 17:55 [place] % (Auto) 7.5 % 05/01/22 17:55 Eos % (Auto) 0.0 % 05/01/22 17:55 Baso % (Auto) 0.3 % 05/01/22 17:55 Neut # (Auto) 13.45 10^3/uL (1.8-7.7) H 05/01/22 17:55 Lymph # (Auto) 1.1 10^3/uL (0.8-4.8) 05/01/22 17:55 [place] # (Auto) 1.2 10^3/uL (0.2-0.9) H 05/01/22 17:55 Eos # (Auto) 0.0 10^3/uL (0.0-0.8) 05/01/22 17:55 Baso # (Auto) 0.0 10^3/uL (0.0-0.1) 05/01/22 17:55 Nucleated RBC % (auto) 0 % 05/01/22 17:55 Nucleated RBCs # 0.0 /100WBC 05/01/22 17:55 Sodium 135 mmol/L (136-145) L 05/01/22 17:55 Potassium 4.0 mmol/L (3.5-5.1) 05/01/22 17:55 Chloride 97 mmol/L (98-107) L 05/01/22 17:55 Carbon Dioxide 24 mmol/L (22-29) 05/01/22 17:55 Anion Gap 18.0 (5-19) 05/01/22 17:55 BUN 12 mg/dL (6-20) 05/01/22 17:55 Creatinine 1.1 mg/dL (0.5-0.9) H 05/01/22 17:55 GFR Calculation 53.2 mL/min (90-130) L 05/01/22 17:55 Glucose 230 mg/dL (65-115) H 05/01/22 17:55 Calculated Osmolality 287 mOsm/kg (285-295) 05/01/22 17:55 Lactic Acid 2.9 mmol/L (0.5-2.2) H 05/01/22 17:55 Calcium 8.5 mg/dL (8.5-10.5) 05/01/22 17:55 Total Bilirubin 0.2 mg/dL (0.15-1.2) 05/01/22 17:55 AST 18 U/L (0-32) 05/01/22 17:55 ALT 16 U/L (0-33) 05/01/22 17:55 Alkaline Phosphatase 91 IU/L (35-105) 05/01/22 17:55 Total Protein 7.5 g/dL (6.6-8.7) 05/01/22 17:55 Albumin 3.9 g/dL (3.5-5.2) 05/01/22 17:55 Globulin 3.6 g/dL (1.3-4.6) 05/01/22 17:55 Urine Color Yellow (Yellow) 05/01/22 18:39 Urine Appearance Sl cloudy (CLEAR) A 05/01/22 18:39 Urine pH 7 (5-7) 05/01/22 18:39 Ur Specific [place] 1.005 (1.005-1.030) 05/01/22 18:39 Urine Protein 3+ (Negative) H 05/01/22 18:39 Urine Glucose (UA) Norm (Normal) 05/01/22 18:39 Urine Ketones 1+ (Negative) H 05/01/22 18:39 Urine Blood 3+ (Negative) H 05/01/22 18:39 Urine Nitrate Positive (Negative) H 05/01/22 18:39 Urine Bilirubin Neg (Negative) 05/01/22 18:39 Urine Urobilinogen Norm mg/dL (Negative) 05/01/22 18:39 Ur Leukocyte Esterase 2+ (Negative) H 05/01/22 18:39 Urine RBC 5-10 /hpf (0-2) H 05/01/22 18:39 Urine WBC Too numerous to cnt /hpf (0-5) H 05/01/22 18:39 Ur Squamous Epith Cells 0-4 /hpf (0-5) H 05/01/22 18:39 Amorphous Sediment Not Reportable 05/01/22 18:39 Urine Bacteria 3+ /hpf (NONE) H 05/01/22 18:39 Critical Care Time Critical Care Time: Critical Care Time: Yes Total Critical Care Time: 40 Attestation: The high probability of a clinically significant, sudden or life threatening deterioration of the patient's gu system(s) required my full and direct attention, intervention and personal management. The critical care time is as shown. This time is in addition to time spent performing any reported procedures but includes the following: [x] Data and vital sign review and interpretation [x] Patient assessment, examination and intervention [x] Documentation [x] Medication orders and management Discharge Plan Discharge Admit Provider: Simon Huitron Condition: Stable Coding Level of Care Code [facility] for Julien Magaña
[2022-05-01 18:09] LABS: Basophils % 0.3 %; Hematocrit 41.9 % (37.0-47.0); Hemoglobin 13.4 g/dL (11.5-15.3); Lymphocytes # 1.1 10^3/uL (0.8-4.8); Lymphocytes % 6.8 %; Mean Corpuscular Hemoglobin 29.2 pg (28.0-34.0); Mean Corpuscular Volume 91.3 fl (81-99); Mean Platelet Volume 10.3 fL (7.4-10.4); Monocytes # 1.2 10^3/uL (0.2-0.9); Monocytes % 7.5 %; Neutrophils # 13.45 10^3/uL (1.8-7.7); Neutrophils % 84.8 %; Nucleated Red Blood Cells % 0 %; Platelet Count 267 10^3/cmm (130-400); Red Blood Count 4.59 10^6/uL (4.1-5.3); Red Cell Distribution Width 14.6 % (12.1-15.1); White Blood Count 15.9 10^3/uL (4.0-10.0)
[2022-05-01 18:29] LABS: Lactic Sepsis W/Reflex 2.9 mmol/L (0.5-2.2)
[2022-05-01 18:30] LABS: Alanine Aminotransferase 16 U/L (0-33); Albumin Level 3.9 g/dL (3.5-5.2); Alkaline Phosphatase 91 IU/L (35-105); Aspartate Amino Transferase 18 U/L (0-32); Blood Urea Nitrogen 12 mg/dL (6-20); Calcium 8.5 mg/dL (8.5-10.5); Carbon Dioxide 24 mmol/L (22-29); Chloride 97 mmol/L (98-107); Globulin 3.6 g/dL (1.3-4.6); Glomerular Filtration Rate 53.2 mL/min (90-130); Glucose 230 mg/dL (65-115); Osmolality Calculated 287 mOsm/kg (285-295); Sodium 135 mmol/L (136-145); Total Bilirubin 0.2 mg/dL (0.15-1.2); Total Protein 7.5 g/dL (6.6-8.7)
[2022-05-01] MEDS: acetaminophen 1,000 MG/100 ML PIGGYBACK 400 MG IV (18:43)
[2022-05-01] MEDS: sodium chloride 0.9% 1,000 ML 999 ML IV (18:44)
[2022-05-01 18:50] LABS: Add Urine Microscopic? YES; Bilirubin Urine Neg (Negative); Blood Urine 3+ (Negative); Glucose Urine UA Norm (Normal); Ketones Urine 1+ (Negative); Leukocyte Esterase Urine 2+ (Negative); Nitrate Urine Positive (Negative); Protein Urine 3+ (Negative); Specific Gravity, Urine 1.005 (1.005-1.030); Urine Color Yellow (Yellow); Urobilinogen Urine Norm (Negative); pH Urine 7 (5-7)
[2022-05-01 18:53] LABS: Add Urine Culture? Yes; Bacteria Urine 3+ /hpf; Squamous Epithelial Cell Urine 0-4 /hpf (0-5); WBC Urine TOO NUMEROUS TO CNT /hpf (0-5)
[2022-05-01 19:50] LABS: Reflex Lactate Order REFLEX LACTIC ORDERD
--- NOTE | 2022-05-01 20:49 | P.HP_ITS ---
Providers/Chief Complaint Admitting Physician: Simon Huitron Chief Complaint: FEVER/ CATHETER PAIN History of Present Illness Pleasant 47-year-old lady [facility] resident with quadriplegia, previously chronic Dumont catheter, on Thursday had a suprapubic catheter placed, presented to the hospital with fever, malaise, right flank pain, here with fever 103.5 on presentation, leukocytosis 15.9, sodium 135, BUN 12, creatinine 1.1, lactic acid 2.9. UA positive for nitrate, leukocyte Estrace, with too numerous to count WBCs, 5-10 RBC, 0-4 squamous pleural cells. 3+ bacteria. CT abdomen pelvis with possible mild right pyelonephritis. Left adrenal adenoma. Ileus. She request for something for pain for the right flank pain. She has so far received Primaxin, fluid bolus and acetaminophen. Review of Systems Const: Reports: fever(s), body aches and malaise Eyes: Denies: change in vision, eye discomfort or eye redness ENMT: Denies: throat pain, oral sores or ear or mastoid pain Card: Denies: chest pain, edema, pre-syncope or dyspnea on exertion Resp: Denies: dyspnea, productive cough, change in phlegm color or hemoptysis GI: Reports: nausea and diarrhea (one episode several days ago); Denies: abdominal pain, vomiting, constipation, hematochezia or melena : Reports: flank pain (R); Denies: urinary frequency or hematuria Musc: Denies: back pain, joint swelling or joint redness Skin/Breast: Denies: rash or new lesions Neuro: Denies: headache(s), numbness in extremities, weakness in extremities, dizziness, confusion or seizure-like activity Endo: Denies: polyuria or polydipsia Raul/Lymph: Denies: easy bleeding or tender lymph nodes All/Imm: Denies: urticaria or tongue swelling Medications/Allergies Home Medications Medication Instructions Recorded Confirmed Last Taken Type ascorbic acid (vitamin C) 1,000 mg 1,000 mg PO BID@08,04/22/20 03/28/22 03/27/22 History tablet (Vitamin C) lactulose 10 gram/15 mL (15 mL) 30 ml PO TID 04/22/20 03/28/22 03/27/22 History oral solution magnesium hydroxide 400 mg/5 mL 30 ml PO DAILY PRN 04/22/20 03/28/22 06/10/20 History oral suspension (Milk of Magnesia) methenamine hippurate 1 gram tablet 1 g PO BID@,04/22/20 03/28/22 03/27/22 History nystatin 100,000 unit/gram topical See Rx Instructions .ROUTE .COMPLEX 04/22/20 03/28/22 03/27/22 History cream pantoprazole 40 mg tablet,delayed 40 mg PO DAILY 04/22/20 03/28/22 03/28/22 History release sodium phosphates 19 gram-7 118 ml AR DAILY PRN 04/22/20 03/28/22 Unknown H istory gram/118 mL enema (Fleet Enema) bisacodyl 5 mg tablet,delayed 5 mg PO DAILY PRN 05/28/20 03/28/22 11/18/20 07:24 History release (Dulcolax (bisacodyl)) metoclopramide HCl 10 mg tablet 10 mg PO Q6H PRN #20 tab 05/28/20 03/28/22 03/21/22 Rx sennosides 8.6 mg-docusate sodium 2 tab PO BID@05/28/20 03/28/22 03/27/22 History 50 mg tablet (Senna Plus) sertraline 25 mg tablet (Zoloft) 50 mg PO DAILY@08 05/28/20 03/28/22 03/27/22 History bisacodyl 10 mg rectal suppository 10 mg AR DAILY PRN 08/09/20 03/28/22 04/25/20 History (Dulcolax (bisacodyl)) tizanidine 4 mg tablet 4 mg PO TID@08,,20 PRN 11/18/20 03/28/22 03/27/22 History alprazolam 0.25 mg tablet (Xanax) 0.25 mg PO TID PRN #10 tab 11/22/20 03/28/22 03/27/22 Rx fentanyl 50 mcg/hr transdermal 1 patch TRANSDERMAL Q72H #5 ea 11/22/20 03/28/22 03/25/22 Rx patch morphine concentrate 100 mg/5 mL 5 mg (0.25 mL) PO Q4H PRN #30 ml 11/22/20 03/28/22 03/27/22 Rx (20 mg/mL) oral solution acetaminophen 500 mg tablet 500 mg PO Q6H PRN 08/17/21 03/28/22 03/26/22 History naloxone 0.4 mg/mL injection 0.4 mg IM Q2M PRN 08/17/21 03/28/22 Unknown History solution polyethylene glycol 3350 17 17 g PO DAILY PRN 08/17/21 03/28/22 03/27/22 History gram/dose oral powder (Miralax) pravastatin 40 mg tablet 40 mg PO BEDTIME 08/17/21 03/28/22 03/27/22 History simethicone 80 mg chewable tablet 80 mg PO .AFTER MEALS 08/17/21 03/28/22 03/27/22 History methylnaltrexone 12 mg/0.6 mL 6 mg SUBCUT Q3D PRN 01/24/22 03/28/22 03/27/22 History subcutaneous syringe (Relistor) ondansetron HCl 4 mg tablet 4 mg PO Q6H PRN 01/24/22 03/28/22 03/26/22 History docusate sodium 100 mg capsule 100 mg PO BID 02/11/22 03/28/22 03/27/22 History (Colace) gabapentin 600 mg tablet 1,200 mg PO TID 02/11/22 03/28/22 03/27/22 History calcium carbonate 400 mg calcium 400 mg PO DAILY PRN 03/06/22 03/28/22 Unknown History (1,000 mg) chewable tablet (Tums Ultra) insulin lispro 100 unit/mL See Rx Instructions .ROUTE .COMPLEX 03/06/22 03/28/22 03/27/22 History subcutaneous pen (Humalog KwikPen (U-100) Insulin) pregabalin 50 mg capsule (Lyrica) 50 mg PO BID 03/06/22 03/28/22 03/27/22 History magnesium hydroxide 400 mg/5 mL 5 ml PO DAILY #355 ml 03/12/22 03/28/22 Unknown Rx oral suspension (Milk of Magnesia) metformin 850 mg tablet 850 mg PO BID 03/28/22 03/28/22 03/27/22 History potassium chloride 20 mEq 20 meq PO DAILY 03/28/22 03/28/22 Unknown History tablet,extended release ciprofloxacin HCl 500 mg tablet 500 mg PO BID #14 tab 04/21/22 Unknown Rx (Cipro) ondansetron 4 mg disintegrating 4 mg PO Q6H PRN #14 tab 04/21/22 Unknown Rx tablet Allergies Allergy/AdvReac Type Severity Reaction Status Date / Time No Known Allergies Allergy Verified 03/06/22 08:41 PFSH Acute PFSH: Medical History Chronic indwelling Dumont catheter Hydronephrosis Neurogenic bladder Perforated abdominal viscus Condition resolved Post-traumatic quadriplegia PVD (peripheral vascular disease) Quadriplegia Recurrent sepsis due to urinary tract infection Surgical History H/O bladder repair surgery H/O cystoscopy H/O partial cystectomy H/O Spinal surgery History of hysterectomy History of partial gastrectomy Family History Other CAD (coronary artery disease) Diabetes Hypertension Social History Alcohol intake: never Household members: spouse Housing: House Marital status: Current occupational status: disabled Vitals/I&O/Wt Last Vital Signs Temp 98.8 F 05/01/22 20:40 Pulse 117 H 05/01/22 20:40 Resp 17 05/01/22 20:40 BP 120/78 05/01/22 20:40 Pulse Ox 96 05/01/22 20:40 05/01/22 05/01/22 05/01/22 06:59 14:59 22:59 Intake Total 200 / 200 Balance 200 / 200 Weight last 48 hrs Weight 65.771 kg Physical Exam Narrative: Quadruplegia Const: COMMON NORMALS: alert GENERAL APPEARANCE: cooperative ORIENTATION/CONSCIOUSNESS: Yes awake HENMT: COMMON NORMALS: normocephalic, EAC's normal, Normal external nose present and moist oral mucous membranes HEAD & SCALP: normocephalic NOSE: Normal external nose present EXTERNAL AUDITORY CANAL: EAC's normal Neck/C-Spine: COMMON NORMALS: no meningeal signs Chest: CHEST: Yes Symmetrical chest wall rise Resp: COMMON NORMALS: clear to auscultation bilaterally AUSCULTATION: clear to auscultation bilaterally Cardio: COMMON NORMALS: regular rate, regular rhythm and No murmurs present (Cardio) RATE: regular rate RHYTHM: regular rhythm GI: COMMON NORMALS: Normal to inspection, nondistended, normoactive bowel sounds present, Soft to palpation and non-tender PALPATION: Yes Soft to palpation Extremity: OTHER: Trace peripheral edema Neuro: COMMON NORMALS: moves all extremities SENSORIUM/ORIENTATION: Yes alert MENINGEAL SIGNS: Yes no meningeal signs Psych: COMMON NORMALS: mental status grossly normal Skin: RASHES: no rashes Data : 05/01/22 17:55 05/01/22 17:55 Micro: Microbiology 05/01/22 19:00 Blood Culture - Preliminary Blood SPECIMEN COLLECTED 05/01/22 19:10 Blood Culture - Preliminary Blood SPECIMEN COLLECTED A&P Assessment and plan (1) Complicated UTI (urinary tract infection): Complicated urinary tract infection with pyelonephritis, sepsis with leukocytosis, tachycardia, fever, lactic acidosis. Not appear to have any significant obstructive uropathy on abdominal imaging. Follow-up cultures. For now continue Primaxin. Status: Acute (2) Sepsis: Follow-up blood and urine cultures. Continue Primaxin. Lactic acidosis 2.9. Received fluid bolus 1 L, will give additional bolus 500 mL. Status: Acute (3) YEN (acute kidney injury): YEN 1.1, in setting of sepsis. Does not appear to have significant obstructive uropathy. Received fluid challenge. Monitor I&O, reassess renal function. Status: Acute Plan Quadriplegia Status post SP catheter PVD Chronic pain Recurrent urinary tract infection DM2 Attestations Medical Necessity Statement*: Admission of over 2 midnights is anticipated for assessment and management of complicated UTI, sepsis. 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
[2022-05-01 21:50] LABS: Lactic Acid level (Lactate) 2.1 mmol/L (0.5-2.2)
--- NOTE | 2022-05-01 22:32 | PC.NURSE ---
Patient has suprapubic catheter right lower abd.
[2022-05-01] MEDS: lactated ringers 500 ML 999 ML IV (22:37)
[2022-05-01] MEDS: heparin 5,000 unit/mL INJ 1 mL 5000 UNIT SUBCUT (22:38)
[2022-05-01] MEDS: morphine 10 mg/0.5 mL oral liq UD 5 MG PO (22:38)
[2022-05-02] VITALS (30 sets, daily range): BP systolic 85–161; BP diastolic 52–84; PULSE 62–156; RESP 14–29; TEMP 36.9–38.1; O2SAT 89–100
--- NOTE | 2022-05-02 01:38 | PC.NURSE ---
Fentanyl patch 50 mcg on left chest placed 04/30/2022
[2022-05-02] MEDS: ondansetron 2 mg/ML SDV 2 mL 4 MG IVP ×2 (02:35→11:21)
[2022-05-02] MEDS: MED 1200 MG PO ×4 (02:47→20:08)
[2022-05-02] MEDS: pregabalin 50 mg Capsule PO ×3 (02:47→17:06)
[2022-05-02] MEDS: acetaminophen 325 mg Tablet 650 MG PO ×2 (02:52→20:08)
[2022-05-02] MEDS: morphine 10 mg/0.5 mL oral liq UD 5 MG PO (03:27)
[2022-05-02] MEDS: ipratropium-albuterol 3 mL Neb INHALATION ×4 (04:21→20:57)
[2022-05-02 04:53] LABS: Basophils % 0.2 %; Hematocrit 35.1 % (37.0-47.0); Hemoglobin 11.1 g/dL (11.5-15.3); Lymphocytes % 6.8 %; Mean Corpuscular HGB Conc 31.6 g/dL (30.0-36.0); Mean Corpuscular Hemoglobin 29.5 pg (28.0-34.0); Mean Corpuscular Volume 93.4 fl (81-99); Mean Platelet Volume 10.1 fL (7.4-10.4); Monocytes # 1.2 10^3/uL (0.2-0.9); Monocytes % 8.1 %; Neutrophils # 12.27 10^3/uL (1.8-7.7); Neutrophils % 84.4 %; Nucleated Red Blood Cells % 0 %; Platelet Count 209 10^3/cmm (130-400); Red Blood Count 3.76 10^6/uL (4.1-5.3); Red Cell Distribution Width 14.6 % (12.1-15.1); White Blood Count 14.5 10^3/uL (4.0-10.0)
[2022-05-02 05:11] LABS: Alanine Aminotransferase 12 U/L (0-33); Albumin Level 2.9 g/dL (3.5-5.2); Alkaline Phosphatase 75 IU/L (35-105); Anion Gap 15.6 (5-19); Aspartate Amino Transferase 11 U/L (0-32); Blood Urea Nitrogen 13 mg/dL (6-20); Carbon Dioxide 22 mmol/L (22-29); Chloride 100 mmol/L (98-107); Globulin 3.5 g/dL (1.3-4.6); Glomerular Filtration Rate 67.1 mL/min (90-130); Glucose 199 mg/dL (65-115); Osmolality Calculated 284 mOsm/kg (285-295); Potassium 3.6 mmol/L (3.5-5.1); Sodium 134 mmol/L (136-145); Total Bilirubin 0.2 mg/dL (0.15-1.2); Total Protein 6.4 g/dL (6.6-8.7)
[2022-05-02] MEDS: ALPRAZolam 0.5 mg Tablet 0.25 MG PO ×2 (06:17→20:08)
[2022-05-02] MEDS: heparin 5,000 unit/mL INJ 1 mL 5000 UNIT SUBCUT ×3 (06:17→20:59)
[2022-05-02 07:45] LABS: Glucose Point of Care 178 mg/dL (70-110)
[2022-05-02] MEDS: insulin lispro 100 unit/1 mL SUBCUT ×3 (08:07→20:09)
[2022-05-02] MEDS: pantoprazole DR 40 mg Tablet PO (08:08)
[2022-05-02] MEDS: sennosides-docusate Tablet 2 TAB PO ×2 (08:08→20:09)
[2022-05-02] MEDS: docusate sodium 100 mg Capsule PO ×2 (08:08→17:06)
[2022-05-02] MEDS: sertraline 50 mg Tablet PO (08:09)
[2022-05-02] MEDS: midodrine 5 mg TABLET PO ×3 (08:12→20:07)
--- NOTE | 2022-05-02 09:25 | PM.PN ---
Subjective Subjective: Patient was seen this morning nursing staff at bedside, she tells me that she had a suprapubic catheter placed about 4 months ago, by Dr. Culp, she continues to have UTIs, she felt fevers, she had chills, that is what brought her to the hospital, denies a history of sacral ulcers, she does tell me that she has chronic constipation she is on multiple bowel regimens Vitals/I&O/Wt Last Vital Signs Temp 98.4 F 05/02/22 08:00 Pulse 76 05/02/22 09:12 Resp 14 05/02/22 09:12 BP 87/55 05/02/22 08:00 Pulse Ox 93 05/02/22 09:12 05/01/22 05/02/22 05/02/22 22:59 06:59 14:59 Intake Total 200 / 200 600 / 800 1700 / 1700 Balance 200 / 200 600 / 800 1700 / 1700 Weight last 48 hrs Weight 71.384 kg Weight 68.974 kg Weight 65.771 kg Physical Exam Const: COMMON NORMALS: no acute distress and patient oriented x3 Resp: COMMON NORMALS: normal respiratory effort, No retractions, No use of accessory muscles and clear to auscultation bilaterally AUSCULTATION: clear to auscultation bilaterally Cardio: COMMON NORMALS: regular rate, regular rhythm, S1 normal heart sound present and S2 normal heart sound present RATE: regular rate RHYTHM: regular rhythm HEART SOUNDS: S1 normal heart sound present and S2 normal heart sound present GI: COMMON NORMALS: Normal to inspection, nondistended, normoactive bowel sounds present, Soft to palpation and non-tender PALPATION: Yes Soft to palpation : OTHER: Suprapubic catheter in place Extremity: OTHER: 1+ pitting edema bilateral extremity Neuro: COMMON NORMALS: patient oriented x3 Psych: COMMON NORMALS: mental status grossly normal Data : 05/02/22 04:45 05/02/22 04:45 Micro: Microbiology 05/01/22 18:39 Urine Culture - Preliminary Urine,Clean Catch Gram Negative Rods 05/01/22 19:00 Blood Culture - Preliminary Blood SPECIMEN COLLECTED 05/01/22 19:10 Blood Culture - Preliminary Blood SPECIMEN COLLECTED A&P Assessment and plan (1) Complicated UTI (urinary tract infection): Complicated urinary tract infection with pyelonephritis, sepsis with leukocytosis, tachycardia, fever, lactic acidosis. Not appear to have any significant obstructive uropathy on abdominal imaging. Urine cultures in the past have grown ESBL sensitive to Primaxin, had grown Proteus Continue Primaxin Add cefepime for Proteus Status: Acute (2) Sepsis: Follow-up blood and urine cultures. Continue Primaxin. Lactic acidosis 2.9. Status post 3 L bolus, blood pressures remain soft, start midodrine. Status: Acute (3) YEN (acute kidney injury): YEN 1.1, in setting of sepsis. Does not appear to have significant obstructive uropathy. Received fluid challenge. Monitor I&O, reassess renal function. Status: Acute Plan Quadriplegia Status post SP catheter PVD Chronic pain Recurrent urinary tract infection DM2 Attestations Medical Necessity Statement*: Patient requires hospitalization inpatient, greater than 2 midnights, for sepsis secondary to multidrug-resistant UTI Coding Level of Care Code Acute Materials Engineering Technician for [facility] Fwd Diagnoses Complicated UTI (urinary tract infection) N39.0 Sepsis A41.9 YEN (acute kidney injury) N17.9
[2022-05-02] MEDS: polyethylene glycol 3350 Pkt 17 gm PO (09:49)
[2022-05-02] MEDS: cefepime 1,000 MG in sodium chloride 0.9% (plus) 50 ML 100 MG IV ×2 (09:52→22:55)
[2022-05-02 11:44] LABS: Glucose Point of Care 211 mg/dL (70-110)
[2022-05-02 17:10] LABS: Glucose Point of Care 131 mg/dL (70-110)
--- NOTE | 2022-05-02 18:12 | PC.NURSE ---
Pt resting in bed, repositioned q2h and PRN, VSS. Makes all needs known, denies any needs at this time. Sp cath draining freely to bsd. Dressing to sacrum c/d/i. Prevlon boots in place, arms and legs supported by pillows. No other issues noted, CLWR, SR up x 2. Will monitor.
[2022-05-02 20:04] LABS: Glucose Point of Care 171 mg/dL (70-110)
[2022-05-02] MEDS: atorvastatin 40 mg Tablet 20 MG PO (20:07)
[2022-05-02] MEDS: tizanidine 4 mg Tablet PO (20:08)
--- NOTE | 2022-05-02 21:11 | PC.NURSE ---
Patient complaining of leaking and burning sensation from the urethra with a suprapubic catheter in place. Catheter is draining. Chucks are saturated. Patient was given a bed bath with full bedding change. Physician notified of leaking. No orders at this time. Physician says this is a normal finding but if the pain increases or leaking worsens to notify him.
--- NOTE | 2022-05-02 21:42 | PC.NURSE ---
Updated patients daughter, Tamela with patients permission.
[2022-05-03] VITALS (20 sets, daily range): BP systolic 105–171; BP diastolic 65–96; PULSE 50–78; RESP 14–29; TEMP 36.3–36.9; O2SAT 92–96
[2022-05-03] MEDS: heparin 5,000 unit/mL INJ 1 mL 5000 UNIT SUBCUT ×3 (05:08→21:27)
[2022-05-03 05:49] LABS: Basophils % 0.4 %; Eosinophils # 0.1 10^3/uL (0.0-0.8); Eosinophils % 1.3 %; Hemoglobin 10.8 g/dL (11.5-15.3); Lymphocytes # 1.4 10^3/uL (0.8-4.8); Lymphocytes % 19.9 %; Mean Corpuscular HGB Conc 32.7 g/dL (30.0-36.0); Mean Corpuscular Hemoglobin 28.9 pg (28.0-34.0); Mean Corpuscular Volume 88.2 fl (81-99); Monocytes # 0.5 10^3/uL (0.2-0.9); Monocytes % 7.6 %; Neutrophils % 70.4 %; Nucleated Red Blood Cells % 0 %; Platelet Count 205 10^3/cmm (130-400); Red Blood Count 3.74 10^6/uL (4.1-5.3); Red Cell Distribution Width 14.5 % (12.1-15.1)
--- NOTE | 2022-05-03 06:01 | PC.NURSE ---
Patient's goal pain level is 5. Patient is not requesting anything for pain at this time.
[2022-05-03 06:12] LABS: Alanine Aminotransferase 12 U/L (0-33); Albumin Level 2.9 g/dL (3.5-5.2); Alkaline Phosphatase 80 IU/L (35-105); Anion Gap 11.2 (5-19); Aspartate Amino Transferase 12 U/L (0-32); Blood Urea Nitrogen 13 mg/dL (6-20); Calcium 8.5 mg/dL (8.5-10.5); Carbon Dioxide 25 mmol/L (22-29); Chloride 107 mmol/L (98-107); Globulin 3.5 g/dL (1.3-4.6); Glomerular Filtration Rate 89.7 mL/min (90-130); Glucose 130 mg/dL (65-115); Osmolality Calculated 292 mOsm/kg (285-295); Potassium 3.2 mmol/L (3.5-5.1); Sodium 140 mmol/L (136-145); Total Bilirubin 0.2 mg/dL (0.15-1.2); Total Protein 6.4 g/dL (6.6-8.7)
[2022-05-03 07:08] LABS: Glucose Point of Care 123 mg/dL (70-110)
[2022-05-03] MEDS: morphine 10 mg/0.5 mL oral liq UD 5 MG PO ×2 (07:11→11:18)
[2022-05-03] MEDS: magnesium hydroxide 30 mL UDC 5 ML PO (07:47)
[2022-05-03] MEDS: lactulose oral liq 20 gm/30 mL UDC 30 GM PO ×3 (07:47→21:10)
[2022-05-03] MEDS: midodrine 5 mg TABLET PO (07:48)
[2022-05-03] MEDS: pantoprazole DR 40 mg Tablet PO (07:48)
[2022-05-03] MEDS: sennosides-docusate Tablet 2 TAB PO ×2 (07:48→21:09)
[2022-05-03] MEDS: MED 1200 MG PO ×3 (07:48→21:07)
[2022-05-03] MEDS: docusate sodium 100 mg Capsule PO ×2 (07:48→18:27)
[2022-05-03] MEDS: pregabalin 50 mg Capsule PO ×2 (07:49→18:26)
[2022-05-03] MEDS: sertraline 50 mg Tablet PO (07:49)
[2022-05-03] MEDS: polyethylene glycol 3350 Pkt 17 gm PO (07:49)
[2022-05-03] MEDS: ondansetron 2 mg/ML SDV 2 mL 4 MG IVP (08:00)
[2022-05-03] MEDS: potassium chloride ER 20 mEq Tablet 40 MEQ PO (08:37)
[2022-05-03] MEDS: ipratropium-albuterol 3 mL Neb INHALATION ×2 (08:52→20:27)
[2022-05-03] MEDS: cefepime 1,000 MG in sodium chloride 0.9% (plus) 50 ML 100 MG IV ×2 (09:57→22:05)
[2022-05-03] MEDS: tizanidine 4 mg Tablet PO ×3 (09:57→21:08)
[2022-05-03 11:15] LABS: Glucose Point of Care 149 mg/dL (70-110)
[2022-05-03] MEDS: insulin lispro 100 unit/1 mL SUBCUT ×3 (11:18→21:29)
--- NOTE | 2022-05-03 11:38 | PM.PN ---
Subjective Subjective: Patient was seen this morning she had low-grade fevers overnight, overall she tells me that this morning she is feeling quite well Vitals/I&O/Wt Last Vital Signs Temp 97.4 F L 05/03/22 07:00 Pulse 55 L 05/03/22 09:00 Resp 16 05/03/22 09:00 BP 136/84 05/03/22 08:00 Pulse Ox 95 05/03/22 09:00 05/02/22 05/03/22 05/03/22 22:59 06:59 14:59 Intake Total 1300 / 3270 150 / 3420 630 / 630 Balance 1300 / 3270 150 / 3420 630 / 630 Weight last 48 hrs Weight 70.902 kg Weight 71.384 kg Weight 68.974 kg Weight 65.771 kg Physical Exam Const: COMMON NORMALS: no acute distress and patient oriented x3 Resp: COMMON NORMALS: normal respiratory effort, No retractions, No use of accessory muscles and clear to auscultation bilaterally AUSCULTATION: clear to auscultation bilaterally Cardio: COMMON NORMALS: regular rate, regular rhythm, S1 normal heart sound present and S2 normal heart sound present RATE: regular rate RHYTHM: regular rhythm HEART SOUNDS: S1 normal heart sound present and S2 normal heart sound present GI: COMMON NORMALS: Normal to inspection, nondistended, normoactive bowel sounds present, Soft to palpation and non-tender PALPATION: Yes Soft to palpation Extremity: COMMON NORMALS: no pedal edema Neuro: COMMON NORMALS: patient oriented x3 Psych: COMMON NORMALS: mental status grossly normal Data : 05/03/22 05:15 05/03/22 05:15 Micro: Microbiology 05/01/22 19:00 Blood Culture - Preliminary Blood NEGATIVE TO DATE 05/01/22 19:10 Blood Culture - Preliminary Blood NEGATIVE TO DATE 05/01/22 18:39 Urine Culture - Preliminary Urine,Clean Catch Gram Negative Rods A&P Assessment and plan (1) Complicated UTI (urinary tract infection): Complicated urinary tract infection with pyelonephritis, sepsis with leukocytosis, tachycardia, fever, lactic acidosis. Not appear to have any significant obstructive uropathy on abdominal imaging. Urine cultures in the past have grown ESBL sensitive to Primaxin, had grown Proteus Continue Primaxin Add cefepime for Proteus Decrease midodrine to 2.5 to 8 hours Moved to general medical floors Status: Acute (2) Sepsis: Follow-up blood and urine cultures. Blood pressures improved, as above Status: Acute (3) YEN (acute kidney injury): YEN 0.7, in setting of sepsis. Does not appear to have significant obstructive uropathy. Received fluid challenge. Monitor I&O, reassess renal function. Status: Acute Plan Quadriplegia Status post SP catheter PVD Chronic pain Recurrent urinary tract infection DM2 Attestations Medical Necessity Statement*: Patient requires hospitalization for UTI, multidrug-resistant, likely ESBL, moved to general medical floors Coding Level of Care Code Acute Soda Clerk for [facility] Fwd Diagnoses Complicated UTI (urinary tract infection) N39.0 Sepsis A41.9 YEN (acute kidney injury) N17.9
[2022-05-03] MEDS: ALPRAZolam 0.5 mg Tablet 0.25 MG PO ×2 (13:56→21:06)
[2022-05-03] MEDS: midodrine 5 mg TABLET 2.5 MG PO ×2 (13:56→21:12)
--- NOTE | 2022-05-03 14:59 | PC.NURSE ---
Report called to Bushra PONCE.
--- NOTE | 2022-05-03 15:29 | PC.NURSE ---
Pt transferred to room 258. CLWR
[2022-05-03 17:02] LABS: Glucose Point of Care 192 mg/dL (70-110)
[2022-05-03 20:32] LABS: Glucose Point of Care 156 mg/dL (70-110)
[2022-05-03] MEDS: atorvastatin 40 mg Tablet 20 MG PO (21:09)
[2022-05-03] MEDS: lidocaine 5% Patch 1 PATCH TOPICAL (21:10)
[2022-05-03] MEDS: fentaNYL 50 mcg Patch 1 PATCH TRANSDERMA (21:11)
[2022-05-04] VITALS (14 sets, daily range): BP systolic 90–128; BP diastolic 66–90; PULSE 57–87; RESP 16–17; TEMP 36.3–36.9; O2SAT 95–98
[2022-05-04] MEDS: ipratropium-albuterol 3 mL Neb INHALATION ×4 (04:11→20:18)
[2022-05-04 05:24] LABS: Basophils % 0.4 %; Eosinophils # 0.1 10^3/uL (0.0-0.8); Eosinophils % 2.5 %; Hematocrit 36.8 % (37.0-47.0); Hemoglobin 11.5 g/dL (11.5-15.3); Lymphocytes # 1.4 10^3/uL (0.8-4.8); Lymphocytes % 26.4 %; Mean Corpuscular HGB Conc 31.3 g/dL (30.0-36.0); Mean Corpuscular Hemoglobin 29.1 pg (28.0-34.0); Mean Corpuscular Volume 93.2 fl (81-99); Mean Platelet Volume 10.3 fL (7.4-10.4); Monocytes # 0.3 10^3/uL (0.2-0.9); Neutrophils # 3.34 10^3/uL (1.8-7.7); Neutrophils % 64.3 %; Nucleated Red Blood Cells % 0 %; Platelet Count 225 10^3/cmm (130-400); Red Blood Count 3.95 10^6/uL (4.1-5.3); Red Cell Distribution Width 14.5 % (12.1-15.1); White Blood Count 5.2 10^3/uL (4.0-10.0)
[2022-05-04 05:53] LABS: Alanine Aminotransferase 12 U/L (0-33); Albumin Level 2.9 g/dL (3.5-5.2); Alkaline Phosphatase 78 IU/L (35-105); Anion Gap 16.2 (5-19); Aspartate Amino Transferase 13 U/L (0-32); Blood Urea Nitrogen 9 mg/dL (6-20); C Reactive Protein 81.9 mg/L (0.0-4.9); Calcium 8.6 mg/dL (8.5-10.5); Carbon Dioxide 20 mmol/L (22-29); Chloride 106 mmol/L (98-107); Globulin 3.6 g/dL (1.3-4.6); Glomerular Filtration Rate 89.7 mL/min (90-130); Glucose 127 mg/dL (65-115); Magnesium 2.3 mg/dL (1.7-2.3); Osmolality Calculated 288 mOsm/kg (285-295); Phosphorus 3.3 mg/dL (2.5-4.5); Potassium 3.2 mmol/L (3.5-5.1); Sodium 139 mmol/L (136-145); Total Bilirubin 0.2 mg/dL (0.15-1.2); Total Protein 6.5 g/dL (6.6-8.7)
[2022-05-04 05:56] LABS: Procalcitonin 0.61 ng/mL (0-0.5)
[2022-05-04] MEDS: heparin 5,000 unit/mL INJ 1 mL 5000 UNIT SUBCUT ×3 (06:01→20:51)
[2022-05-04 06:31] LABS: Glucose Point of Care 112 mg/dL (70-110)
[2022-05-04] MEDS: midodrine 5 mg TABLET 2.5 MG PO ×3 (09:22→20:52)
[2022-05-04] MEDS: pantoprazole DR 40 mg Tablet PO (09:24)
[2022-05-04] MEDS: pregabalin 50 mg Capsule PO ×2 (09:24→18:31)
[2022-05-04] MEDS: MED 1200 MG PO ×3 (09:25→20:51)
[2022-05-04] MEDS: sertraline 50 mg Tablet PO (09:27)
[2022-05-04] MEDS: lactulose oral liq 20 gm/30 mL UDC 30 GM PO ×3 (09:42→20:53)
[2022-05-04] MEDS: potassium chloride ER 20 mEq Tablet 40 MEQ PO (09:43)
[2022-05-04] MEDS: sennosides-docusate Tablet 2 TAB PO ×2 (09:44→20:04)
[2022-05-04] MEDS: ALPRAZolam 0.5 mg Tablet 0.25 MG PO ×2 (09:45→20:52)
[2022-05-04] MEDS: tizanidine 4 mg Tablet PO ×3 (09:46→20:53)
[2022-05-04] MEDS: docusate sodium 100 mg Capsule PO ×2 (09:47→18:30)
[2022-05-04] MEDS: polyethylene glycol 3350 Pkt 17 gm PO (09:48)
[2022-05-04] MEDS: magnesium hydroxide 30 mL UDC 5 ML PO (09:52)
[2022-05-04] MEDS: ondansetron 2 mg/ML SDV 2 mL 4 MG IVP ×2 (09:56→21:17)
[2022-05-04] MEDS: cefepime 1,000 MG in sodium chloride 0.9% (plus) 50 ML 100 MG IV (10:43)
[2022-05-04 11:07] LABS: Glucose Point of Care 136 mg/dL (70-110)
--- NOTE | 2022-05-04 11:50 | PM.PN ---
Subjective Subjective: Patient was seen this morning, she does complain of watery stools, no fevers overnight Vitals/I&O/Wt Last Vital Signs Temp 98.1 F 05/04/22 08:00 Pulse 66 05/04/22 08:37 Resp 16 05/04/22 08:37 BP 114/72 05/04/22 08:00 Pulse Ox 98 05/04/22 08:37 05/03/22 05/04/22 05/04/22 22:59 06:59 14:59 Intake Total 510 / 1480 1200 / 2680 120 / 120 Output Total 400 / 400 0 / 400 Balance 110 / 1080 1200 / 2280 120 / 120 Weight last 48 hrs Weight 66.497 kg Weight 70.902 kg Physical Exam Const: COMMON NORMALS: no acute distress and patient oriented x3 Resp: COMMON NORMALS: normal respiratory effort, No retractions, No use of accessory muscles and clear to auscultation bilaterally AUSCULTATION: clear to auscultation bilaterally Cardio: COMMON NORMALS: regular rate, regular rhythm, S1 normal heart sound present and S2 normal heart sound present RATE: regular rate RHYTHM: regular rhythm HEART SOUNDS: S1 normal heart sound present and S2 normal heart sound present GI: COMMON NORMALS: Normal to inspection, nondistended, normoactive bowel sounds present, Soft to palpation and non-tender PALPATION: Yes Soft to palpation Extremity: COMMON NORMALS: no pedal edema Neuro: COMMON NORMALS: patient oriented x3 Psych: COMMON NORMALS: mental status grossly normal Data : 05/04/22 05:14 05/04/22 05:14 Micro: Microbiology 05/01/22 18:39 Urine Culture - Final Urine,Clean Catch Escherichia coli esbl A&P Assessment and plan (1) Complicated UTI (urinary tract infection): Complicated urinary tract infection with pyelonephritis, sepsis with leukocytosis, tachycardia, fever, lactic acidosis. Not appear to have any significant obstructive uropathy on abdominal imaging. Urine cultures in the past have grown ESBL sensitive to Primaxin, had grown Proteus Currently urine culture showing ESBL E. coli, multidrug resistant Sensitive to Primaxin, today would be day 2 She will likely need a total of 7 days of IV antibiotics, Likely keep inpatient for 4 days for IV antibiotics, unless meropenem or Invanz can be arranged via PICC line Midodrine 2.5 mg every 8 hours Status: Acute (2) Sepsis: Follow-up blood and urine cultures. Blood pressures improved, as above Status: Acute (3) YEN (acute kidney injury): YEN 0.7, in setting of sepsis. Does not appear to have significant obstructive uropathy. Received fluid challenge. Monitor I&O, reassess renal function. Status: Acute Plan Quadriplegia Status post SP catheter PVD Chronic pain Recurrent urinary tract infection DM2 Attestations Medical Necessity Statement*: Patient requires hospitalization for multidrug-resistant ESBL UTI Coding Level of Care Code Acute Biochemistry Technologist for [facility] Fwd Diagnoses Complicated UTI (urinary tract infection) N39.0 Sepsis A41.9 YEN (acute kidney injury) N17.9
--- NOTE | 2022-05-04 13:20 | PC.SOCIAL ---
IMM update pg 2 of IMM updated and reviewed w/ patient. Copy provided and copy placed in chart.
[2022-05-04] MEDS: morphine 10 mg/0.5 mL oral liq UD 5 MG PO ×3 (14:24→22:17)
[2022-05-04] MEDS: FUROsemide 10 mg/mL SDV 4mL 40 MG IVP (14:55)
[2022-05-04 16:54] LABS: Glucose Point of Care 171 mg/dL (70-110)
[2022-05-04] MEDS: insulin lispro 100 unit/1 mL SUBCUT (18:31)
[2022-05-04] MEDS: lidocaine 5% Patch 1 PATCH TOPICAL (20:04)
[2022-05-04 20:47] LABS: Glucose Point of Care 124 mg/dL (70-110)
[2022-05-04] MEDS: atorvastatin 40 mg Tablet 20 MG PO (20:53)
[2022-05-05] VITALS (11 sets, daily range): BP systolic 93–139; BP diastolic 61–79; PULSE 55–83; RESP 13–18; TEMP 36.6–37; O2SAT 90–99
[2022-05-05] MEDS: morphine 10 mg/0.5 mL oral liq UD 5 MG PO ×2 (02:05→11:34)
[2022-05-05] MEDS: heparin 5,000 unit/mL INJ 1 mL 5000 UNIT SUBCUT ×3 (05:25→21:07)
--- NOTE | 2022-05-05 06:00 | PC.NURSE ---
SHIFT SUMMARY Has had a good night. Medicated for pain X2 with po liquid Morphine with good relief noted. Says she hurts all over but margaret hands and legs. Is quadriplegic and cannot move below neck but does continue to feel. Uses call light pad with her chin. Has had X4 incont BM's All liquid watery consistency. Has been repositioned as pt requests. Receiving IV antibiotics. Good urine output per suprapubic catheter. Urine is clear pale yellow.
[2022-05-05 06:06] LABS: C Reactive Protein 38.5 mg/L (0.0-4.9); Magnesium 2.3 mg/dL (1.7-2.3); Phosphorus 3.5 mg/dL (2.5-4.5)
[2022-05-05 06:11] LABS: Procalcitonin 0.39 ng/mL (0-0.5)
[2022-05-05 06:14] LABS: Glucose Point of Care 130 mg/dL (70-110)
[2022-05-05] MEDS: ondansetron 2 mg/ML SDV 2 mL 4 MG IVP (08:19)
[2022-05-05] MEDS: midodrine 5 mg TABLET 2.5 MG PO ×3 (08:20→20:51)
[2022-05-05] MEDS: sertraline 50 mg Tablet PO (08:20)
[2022-05-05] MEDS: sennosides-docusate Tablet 2 TAB PO ×2 (08:20→20:56)
[2022-05-05] MEDS: MED 1200 MG PO ×3 (08:20→20:52)
[2022-05-05] MEDS: pantoprazole DR 40 mg Tablet PO (08:20)
[2022-05-05] MEDS: docusate sodium 100 mg Capsule PO ×2 (08:20→17:55)
[2022-05-05] MEDS: polyethylene glycol 3350 Pkt 17 gm PO (09:28)
[2022-05-05] MEDS: lactulose oral liq 20 gm/30 mL UDC 30 GM PO ×2 (09:29→20:52)
[2022-05-05] MEDS: magnesium hydroxide 30 mL UDC 5 ML PO (09:29)
[2022-05-05] MEDS: pregabalin 50 mg Capsule PO ×2 (09:29→17:55)
[2022-05-05] MEDS: ipratropium-albuterol 3 mL Neb INHALATION ×2 (09:50→20:27)
--- NOTE | 2022-05-05 10:50 | XR_ITS ---
WS: [id number] CHEST XRAY TECHNIQUE: Portable chest. CLINICAL INFORMATION: post PICC placement COMPARISON: None. FINDINGS: RIGHT PICC line tip in distal SVC. No pneumothorax. Heart: Normal cardiac silhouette. Lungs: Lungs are clear. No consolidation or pleural effusion. Bones: Thoracic curve convex RIGHT. Postoperative changes cervical spine. XR/XR chest 1V portable [id number] IMPRESSION: RIGHT PICC line tip in distal SVC. No pneumothorax.
[2022-05-05 11:24] LABS: Glucose Point of Care 167 mg/dL (70-110)
--- NOTE | 2022-05-05 13:08 | PM.PN ---
Subjective Subjective: I will recommend 14 days of imipenem PICC line to be placed acquisition marketing manager aware Start prior Auth Plan for discharge with PICC line imipenem 500 mg every 6 hours for 14 days Patient is having diarrhea today she received bowel regimen for her constipation Vitals/I&O/Wt Last Vital Signs Temp 97.8 F 05/05/22 07:30 Pulse 74 05/05/22 10:00 Resp 16 05/05/22 10:00 BP 106/68 05/05/22 07:30 Pulse Ox 96 05/05/22 10:00 05/04/22 05/05/22 05/05/22 22:59 06:59 14:59 Intake Total 320 / 1090 400 / 1490 100 / 100 Balance 320 / 1090 400 / 1490 100 / 100 Weight last 48 hrs Weight 66.678 kg Weight 66.497 kg Physical Exam Narrative: Patient is laying supine Complaining of diarrhea Extremity contractures noted Back was not examined Suprapubic catheter Abdomen soft Saturating well on room air Awake and alert Very pleasant cooperative Data : 05/04/22 05:14 05/04/22 05:14 Micro: Microbiology 05/04/22 11:30 C.difficile Toxin B Gene (PCR) - Final Stool Routine Collection 05/01/22 18:39 Urine Culture - Final Urine,Clean Catch Escherichia coli esbl A&P Assessment and plan (1) YEN (acute kidney injury): Status: Acute (2) Sepsis: Status: Acute (3) Complicated UTI (urinary tract infection): Status: Acute (4) UTI (urinary tract infection): Status: Acute (5) Constipation: Status: Acute Plan ESBL UTI Recurrent history of UTI I would recommend 14-day imipenem 500 mg every 6 hours because of her sepsis, She was admitted on 05/01 which we will start her 14-day regimen Sepsis: Resolved Suprapubic catheter in place, dressing can be changed on daily basis She is afebrile Leukocytosis improved Constipation: Received bowel regimen and now experiencing diarrhea PICC line to be placed today plan her discharge from the hospital back to snf acquisition marketing manager is aware She is full code Attestations Medical Necessity Statement*: Awaiting placement Time Spent in Patient Care: 30 Coding Level of Care Code Acute Instrument Lens Grinder Apprentice for [facility] Fwd Diagnoses YEN (acute kidney injury) N17.9 Sepsis A41.9 Complicated UTI (urinary tract infection) N39.0 UTI (urinary tract infection) N39.0 Constipation K59.00
[2022-05-05] MEDS: ALPRAZolam 0.5 mg Tablet 0.25 MG PO ×2 (13:55→20:56)
[2022-05-05] MEDS: metoclopramide 10 mg Tablet PO (13:55)
[2022-05-05] MEDS: tizanidine 4 mg Tablet PO ×2 (13:55→20:56)
[2022-05-05] MEDS: insulin lispro 100 unit/1 mL SUBCUT (13:55)
[2022-05-05 16:46] LABS: Glucose Point of Care 136 mg/dL (70-110)
--- NOTE | 2022-05-05 19:59 | PC.NURSE ---
Shift Note Frequent safety and comfort rounds continue. Orders and/or nursing care completed as indicated. Patient monitored for response to intervention and treatment(s). Education provided includes pain mgt, picc line mgt and iv antibiotics, bowel regimen. Patient and/or major account representative verbalizes understanding. Will continue to monitor. Dressing change on her suprapubic catheter per pt request.
[2022-05-05] MEDS: atorvastatin 40 mg Tablet 20 MG PO (20:52)
[2022-05-05] MEDS: lidocaine 5% Patch 1 PATCH TOPICAL (21:06)
[2022-05-05 23:52] LABS: Glucose Point of Care 142 mg/dL (70-110)
[2022-05-06] VITALS (9 sets, daily range): BP systolic 90–139; BP diastolic 60–90; PULSE 60–98; RESP 16–18; TEMP 36.5–37.2; O2SAT 93–99
[2022-05-06] MEDS: insulin lispro 100 unit/1 mL SUBCUT ×3 (00:30→11:29)
[2022-05-06 04:53] LABS: Basophils % 0.4 %; Eosinophils # 0.2 10^3/uL (0.0-0.8); Hematocrit 37.9 % (37.0-47.0); Hemoglobin 12.1 g/dL (11.5-15.3); Lymphocytes # 1.4 10^3/uL (0.8-4.8); Mean Corpuscular HGB Conc 31.9 g/dL (30.0-36.0); Mean Corpuscular Hemoglobin 29.2 pg (28.0-34.0); Mean Corpuscular Volume 91.5 fl (81-99); Mean Platelet Volume 10.2 fL (7.4-10.4); Monocytes # 0.8 10^3/uL (0.2-0.9); Monocytes % 8.8 %; Nucleated Red Blood Cells % 0 %; Platelet Count 244 10^3/cmm (130-400); Red Blood Count 4.14 10^6/uL (4.1-5.3); Red Cell Distribution Width 14.6 % (12.1-15.1); White Blood Count 8.9 10^3/uL (4.0-10.0)
[2022-05-06] MEDS: heparin 5,000 unit/mL INJ 1 mL 5000 UNIT SUBCUT ×2 (05:30→15:36)
[2022-05-06 05:58] LABS: Blood Urea Nitrogen 9 mg/dL (6-20); Calcium 8.4 mg/dL (8.5-10.5); Carbon Dioxide 21 mmol/L (22-29); Chloride 106 mmol/L (98-107); Glomerular Filtration Rate 89.7 mL/min (90-130); Glucose 131 mg/dL (65-115); Osmolality Calculated 292 mOsm/kg (285-295); Sodium 141 mmol/L (136-145)
[2022-05-06 06:00] LABS: Anion Gap 18.2 (5-19); Potassium 4.2 mmol/L (3.5-5.1)
[2022-05-06] MEDS: ipratropium-albuterol 3 mL Neb INHALATION (09:39)
[2022-05-06] MEDS: sennosides-docusate Tablet 2 TAB PO (09:53)
[2022-05-06] MEDS: docusate sodium 100 mg Capsule PO (09:54)
[2022-05-06] MEDS: sertraline 50 mg Tablet PO (09:54)
[2022-05-06] MEDS: MED 1200 MG PO ×2 (09:54→15:38)
[2022-05-06] MEDS: lactulose oral liq 20 gm/30 mL UDC 30 GM PO ×2 (09:54→15:38)
[2022-05-06] MEDS: lidocaine 5% Patch 1 PATCH TOPICAL (09:55)
[2022-05-06] MEDS: pantoprazole DR 40 mg Tablet PO (09:56)
[2022-05-06] MEDS: magnesium hydroxide 30 mL UDC 5 ML PO (09:56)
[2022-05-06] MEDS: midodrine 5 mg TABLET 2.5 MG PO ×2 (09:56→15:38)
[2022-05-06] MEDS: polyethylene glycol 3350 Pkt 17 gm PO (09:56)
[2022-05-06] MEDS: ondansetron 2 mg/ML SDV 2 mL 4 MG IVP (10:10)
--- NOTE | 2022-05-06 10:59 | PM.DCS ---
Discharge Providers Date of Admission: 05/01/22 19:18 Date of Discharge: May 06, 2022 Attending Provider at Admission: Simon Huitron Attending Provider at Discharge: Dario Farmer MD Diagnoses at Discharge Discharge Diagnosis (1) YEN (acute kidney injury): Status: Acute (2) Sepsis: Status: Acute (3) Complicated UTI (urinary tract infection): Status: Acute (4) UTI (urinary tract infection): Status: Acute (5) Constipation: Status: Acute Reason for Visit Reason for Visit: FEVER/ CATHETER PAIN Hospital Course Hospital Course Pleasant 47-year-old lady [facility] resident with quadriplegia, previously chronic Dumont catheter, on Thursday had a suprapubic catheter placed, presented to the hospital with fever, malaise, right flank pain. She has history of recurrent UTI with ESBL E. coli. This time urine culture showed ESBL as well. She was diagnosed with sepsis at the time of admission however blood cultures remain negative. She remained on Primaxin throughout her hospitalization. Her YEN improved with IV fluid hydration. She has a suprapubic catheter, her dressing was changed on daily basis. She will finish 14 days of imipenem 500 mg every 6 hours, PICC line has been placed on 05/05. I have tried to contact her brother it went to voicemail. I have contacted [facility] to update them and let the social worker health services know as well. Sepsis resolved. She was constipated, received bowel regimen, now having diarrhea. C. difficile panel is negative. Physical Exam Narrative: Patient is laying supine watching television Extremity contractures noted Back was not examined Suprapubic catheter Abdomen soft Saturating well on room air Awake and alert Very pleasant cooperative Urinary Catheter Management: Suprapubic: Cath Placed During This Visit: no Reason for Continuing Indwelling Catheter: Chronic Indwelling Urinary Catheter on Admission Discharge Data Studies Completed and Pending Completed Studies During Hospitalization Category Date Time Status CT kidney stone [id number] Stat Cat Scan 05/01/22 17:42 Completed XR chest 1V portable [id number] Routine Exams 05/05/22 10:50 Completed Pending at discharge Category Date Time Status Blood Culture Stat Lab 05/01/22 19:00 Results SARS Covid-2 Antigen Stat Lab 05/05/22 08:51 Uncollected Radiology Impressions Abdomen/Pelvis CT 05/01/22 17:42 IMPRESSION: 1. Possible mild right pyelonephritis, correlate with urinalysis. 2. Interval placement of a suprapubic catheter, which appears in good position. 3. Left adrenal adenoma. 4. Ileus. COMMENTS: Consistent with the [employer]'s Incidental Findings Committee white paper (J Am Karine Radiol 2017): For any incidental adrenal lesion greater than or equal to 1 cm but less than or equal to 4 cm classified in this report as benign, likely benign, or containing fat (including classification as an adenoma or myelolipoma), no follow-up imaging is recommended per consensus recommendations based on imaging criteria. Further lab evaluation could be pursued if warranted based on clinical findings. Chest X-Ray 05/05/22 10:50 IMPRESSION: RIGHT PICC line tip in distal SVC. No pneumothorax. Laboratory Results WBC 8.9 10^3/uL (4.0-10.0) 05/06/22 04:44 RBC 4.14 10^6/uL (4.1-5.3) 05/06/22 04:44 Hgb 12.1 g/dL (11.5-15.3) 05/06/22 04:44 Hct 37.9 % (37.0-47.0) 05/06/22 04:44 MCV 91.5 fl (81-99) 05/06/22 04:44 MCH 29.2 pg (28.0-34.0) 05/06/22 04:44 MCHC 31.9 g/dL (30.0-36.0) 05/06/22 04:44 RDW 14.6 % (12.1-15.1) 05/06/22 04:44 Plt Count 244 10^3/cmm (130-400) 05/06/22 04:44 MPV 10.2 fL (7.4-10.4) 05/06/22 04:44 Neut % (Auto) 72.0 % 05/06/22 04:44 Lymph % (Auto) 16.0 % 05/06/22 04:44 [place] % (Auto) 8.8 % 05/06/22 04:44 Eos % (Auto) 2.0 % 05/06/22 04:44 Baso % (Auto) 0.4 % 05/06/22 04:44 Neut # (Auto) 6.40 10^3/uL (1.8-7.7) 05/06/22 04:44 Lymph # (Auto) 1.4 10^3/uL (0.8-4.8) 05/06/22 04:44 [place] # (Auto) 0.8 10^3/uL (0.2-0.9) 05/06/22 04:44 Eos # (Auto) 0.2 10^3/uL (0.0-0.8) 05/06/22 04:44 Baso # (Auto) 0.0 10^3/uL (0.0-0.1) 05/06/22 04:44 Nucleated RBC % (auto) 0 % 05/06/22 04:44 Nucleated RBCs # 0.0 /100WBC 05/06/22 04:44 Sodium 141 mmol/L (136-145) 05/06/22 05:32 Potassium 4.2 mmol/L (3.5-5.1) 05/06/22 05:32 Chloride 106 mmol/L (98-107) 05/06/22 05:32 Carbon Dioxide 21 mmol/L (22-29) L 05/06/22 05:32 Anion Gap 18.2 (5-19) 05/06/22 05:32 BUN 9 mg/dL (6-20) 05/06/22 05:32 Creatinine 0.7 mg/dL (0.5-0.9) 05/06/22 05:32 GFR Calculation 89.7 mL/min (90-130) L 05/06/22 05:32 Glucose 131 mg/dL (65-115) H 05/06/22 05:32 POC Glucose 142 mg/dL (70-110) H 05/05/22 23:39 Calculated Osmolality 292 mOsm/kg (285-295) 05/06/22 05:32 Lactic Acid 2.9 mmol/L (0.5-2.2) H 05/01/22 17:55 Lactic Acid (Sepsis) 2.1 mmol/L (0.5-2.2) 05/01/22 21:17 Calcium 8.4 mg/dL (8.5-10.5) L 05/06/22 05:32 Phosphorus 3.5 mg/dL (2.5-4.5) 05/05/22 05:17 Magnesium 2.3 mg/dL (1.7-2.3) 05/05/22 05:17 Total Bilirubin 0.2 mg/dL (0.15-1.2) 05/04/22 05:14 AST 13 U/L (0-32) 05/04/22 05:14 ALT 12 U/L (0-33) 05/04/22 05:14 Alkaline Phosphatase 78 IU/L (35-105) 05/04/22 05:14 C-Reactive Protein 38.5 mg/L (0.0-4.9) H 05/05/22 05:17 Total Protein 6.5 g/dL (6.6-8.7) L 05/04/22 05:14 Albumin 2.9 g/dL (3.5-5.2) L 05/04/22 05:14 Globulin 3.6 g/dL (1.3-4.6) 05/04/22 05:14 Procalcitonin 0.39 ng/mL (0-0.5) 05/05/22 05:17 Urine Color Yellow (Yellow) 05/01/22 18:39 Urine Appearance Sl cloudy (CLEAR) A 05/01/22 18:39 Urine pH 7 (5-7) 05/01/22 18:39 Ur Specific [place] 1.005 (1.005-1.030) 05/01/22 18:39 Urine Protein 3+ (Negative) H 05/01/22 18:39 Urine Glucose (UA) Norm (Normal) 05/01/22 18:39 Urine Ketones 1+ (Negative) H 05/01/22 18:39 Urine Blood 3+ (Negative) H 05/01/22 18:39 Urine Nitrate Positive (Negative) H 05/01/22 18:39 Urine Bilirubin Neg (Negative) 05/01/22 18:39 Urine Urobilinogen Norm mg/dL (Negative) 05/01/22 18:39 Ur Leukocyte Esterase 2+ (Negative) H 05/01/22 18:39 Urine RBC 5-10 /hpf (0-2) H 05/01/22 18:39 Urine WBC Too numerous to cnt /hpf (0-5) H 05/01/22 18:39 Ur Squamous Epith Cells 0-4 /hpf (0-5) H 05/01/22 18:39 Amorphous Sediment Not Reportable 05/01/22 18:39 Urine Bacteria 3+ /hpf (NONE) H 05/01/22 18:39 Vitals Last Vital Signs Temp 98.9 F 05/06/22 08:00 Pulse 96 05/06/22 09:43 Resp 16 05/06/22 09:40 BP 132/78 05/06/22 08:00 Pulse Ox 96 05/06/22 09:40 Discharge Plan Discharge Patient Disposition: Xfer SNF Condition: Stable Prescriptions: New imipenem-cilastatin 500 mg recon soln 1 ml IV Q6H 14 Days Qty: 1 0RF Rx Instructions: administer over 40-60 mins Continued ascorbic acid (vitamin C) [Vitamin C] 1,000 mg Tablet 1,000 mg PO BID@08,20 0RF methenamine hippurate 1 gram Tablet 1 g PO BID@08,20 0RF magnesium hydroxide [Milk of Magnesia] 400 mg/5 mL Suspension 30 ml PO DAILY PRN (Reason: Constipation) 0RF Rx Instructions: If no BM in 3 days. pantoprazole 40 mg Tablet,Delayed Release (Dr/Ec) 40 mg PO DAILY 0RF Fleet Enema 19-7 gram/118 mL Enema 118 ml IN DAILY PRN (Reason: Constipation) 0RF lactulose 10 gram/15 mL (15 mL) Solution 30 ml PO TID 0RF sennosides-docusate sodium [Senna Plus] 8.6-50 mg Tablet 2 tab PO BID@08,20 0RF sertraline [Zoloft] 25 mg Tablet 50 mg PO DAILY@08 0RF bisacodyl [Dulcolax (bisacodyl)] 5 mg Tablet,Delayed Release (Dr/Ec) 10 mg PO DAILY PRN (Reason: Constipation) 0RF metoclopramide HCl 10 mg tablet 10 mg PO Q6H PRN (Reason: nausea and vomiting) Qty: 20 0RF pravastatin 40 mg Tablet 40 mg PO BEDTIME 0RF naloxone 0.4 mg/mL Solution 0.4 mg IM Q2M PRN (Reason: overdose) 0RF acetaminophen 500 mg Tablet 500 mg PO Q6H PRN (Reason: Pain) 0RF simethicone 80 mg Tablet,Chewable 80 mg PO .AFTER MEALS 0RF polyethylene glycol 3350 [Miralax] 17 gram/dose powder 17 g PO DAILY PRN (Reason: constipation) 0RF bisacodyl [Dulcolax (bisacodyl)] 10 mg Suppository 10 mg IN DAILY PRN (Reason: Constipation) 0RF Rx Instructions: Give rectally if can't take p/o, if no results from MOM tizanidine 4 mg Tablet 4 mg PO TID@08,14,20 PRN (Reason: unknown) 0RF fentanyl 50 mcg/hr Patch 72 Hour 1 patch TRANSDERMAL Q72H Qty: 5 0RF morphine concentrate 100 mg/5 mL (20 mg/mL) solution 5 mg PO Q4H PRN (Reason: Pain) Qty: 30 0RF alprazolam [Xanax] 0.25 mg Tablet 0.25 mg PO TID PRN (Reason: Anxiety) Qty: 10 0RF ondansetron HCl 4 mg Tablet 4 mg PO Q6H PRN (Reason: Nausea) 0RF Relistor 12 mg/0.6 mL Syringe 6 mg SUBCUT Q3D PRN (Reason: Constipation) 0RF gabapentin 600 mg tablet 1,200 mg PO TID 0RF docusate sodium [Colace] 100 mg Capsule 100 mg PO BID 0RF insulin lispro [Humalog KwikPen Insulin] 100 unit/mL Insulin Pen See Rx Instructions .ROUTE .COMPLEX 0RF Rx Instructions: SLIDING SCALE- BLOOD SUGAR 125-150 GIVE 2 UNITS, 151-200 GIVE 4 UNITS, 201-250 GIVE 6 UNITS, 251-300 GIVE 8 UNITS, 301-350 GIVE 10 UNITS, 351-400 GIVE 12 UNITS pregabalin [Lyrica] 50 mg Capsule 50 mg PO BID 0RF calcium carbonate [Tums Ultra] 400 mg calcium (1,000 mg) Tablet,Chewable 400 mg PO DAILY PRN (Reason: Heartburn) 0RF magnesium hydroxide [Milk of Magnesia] 400 mg/5 mL suspension 5 ml PO DAILY Qty: 355 0RF metformin 850 mg Tablet 1,000 mg PO BID 0RF potassium chloride 20 mEq Tablet Extended Release 20 meq PO DAILY 0RF ciprofloxacin HCl [Cipro] 500 mg tablet 500 mg PO BID Qty: 14 0RF Discharge Orders: Discharge Order (Routine); Ordered 05/06/22 Ordered By: Dario Farmer Discharge Diet: GI Soft Discharge Activity: Bedrest Discharge Attestations Time Spent in Discharge Care*: less than 30 min Status at Discharge: Cognitive status at discharge: cognitively intact, Behavioral status at discharge: cooperative, Quality Metrics Clinical Quality Measures [ No reported AMI, CVA or VTE this stay] Coding Level of Care Code Acute Chg FW DC note Diagnoses YEN (acute kidney injury) N17.9 Sepsis A41.9 Complicated UTI (urinary tract infection) N39.0 UTI (urinary tract infection) N39.0 Constipation K59.00
[2022-05-06 11:05] LABS: Glucose Point of Care 152 mg/dL (70-110)
--- NOTE | 2022-05-06 13:06 | PC.SOCIAL ---
IMM Updated pt on IMM. No questions voiced. Provided pt a copy. Initialed, dated, & timed copy in chart.
[2022-05-06 15:17] LABS: SARS Covid-2 Antigen Negative (Negative)
[2022-05-06] MEDS: tizanidine 4 mg Tablet PO (15:41)
[2022-05-06 17:00] LABS: Glucose Point of Care 126 mg/dL (70-110)
== END 2022-05-06 19:50 | disposition skilled nursing facility (03) | DRG 698 ==
LOC: ER 19:29 → ICU 20:00 → MEDSURG 05-03 16:11
PROVIDERS: Family Medicine; Admitting Provider Internal Medicine; Emergency Provider Emergency Medicine; Visit Provider Internal Medicine
DX: T83.518A Infection and inflammatory reaction due to other urinary catheter, initial encounter (principal); A41.9 Sepsis, unspecified organism; G82.50 Quadriplegia, unspecified; N12 Tubulo-interstitial nephritis, not specified as acute or chronic; E87.2 Acidosis; N17.9 Acute kidney failure, unspecified; S14.109S Unspecified injury at unspecified level of cervical spinal cord, sequela; X58.XXXS Exposure to other specified factors, sequela; Z96.0 Presence of urogenital implants; N31.9 Neuromuscular dysfunction of bladder, unspecified; I73.9 Peripheral vascular disease, unspecified; Z87.440 Personal history of urinary (tract) infections; L89.151 Pressure ulcer of sacral region, stage 1; L89.621 Pressure ulcer of left heel, stage 1; K59.09 Other constipation; B96.20 Unspecified Escherichia coli [E. coli] as the cause of diseases classified elsewhere; Y73.8 Miscellaneous gastroenterology and urology devices associated with adverse incidents, not elsewhere classified
CPT/HCPCS: 36415; 36416; 36569; 36592; 71045; 74176; 80048; 80053; 81001; 82962; 83605; 83735; 84100; 84145; 85025; 86140; 87040; 87077; 87086; 87186; 87426; 87493; 94640; 96365; 96372; 96375; 99285; J0692; J0743; J1644; J1815; J1940; J2405; J7030; J8597

== ENCOUNTER 2022-05-12 15:13 | Observation (INO) | payer MEDICARE, MEDICAID, SELFPAY ==
[2022-05-12] VITALS (10 sets, daily range): BP systolic 123–169; BP diastolic 79–93; PULSE 84–119; RESP 16–18; TEMP 36.7–37.1; O2SAT 96–99; BMI 24.9; BMI 24.7
--- NOTE | 2022-05-12 15:39 | ED_ITS ---
HPI - General Adult General: Chief complaint: Urogenital-Female Stated complaint: GENERALIZED WEAKNESS Time Seen by Provider: 05/12/22 15:17 History of Present Illness: Patient is a [age]-year-old female with history of quadriplegia, recent suprapubic catheter placement on 04/30/2022 at [facility] presents the emergency room with concerns of continued urine output from her urethra, dysuria symptoms, and pain around the suprapubic catheter insertion site. Patient tells me that since 04/30, [facility] which point time, one of the healthcare staff accidentally pulled on her suprapubic catheter since then, patient has had exit site pain. In addition, patient also reports persistent urine leakage from her urethra. Patient discussed case with her urologist but has yet to hear back from them. Patient denies any nabil-suprapubic catheter site drainage or leakage of urine. Patient has no flank pain, nausea/vomiting, fever or chills. Patient denies any acute abdominal pain at this time. Patient chronically has UTI. Valencia gonzales has a right-sided PICC line that was placed during her previous admission at [facility]. Onset:04/30/2022 Duration:12 days Location[facility] Severity:moderate Associated symptoms: Deny chest pain, dyspnea, nausea, rash, palpitations or vomiting Review of Systems Const: Denies: fever(s) or chills Eyes: Denies: change in vision ENMT: Denies: mouth pain Card: Denies: chest pain or palpitations Resp: Denies: dyspnea or non-productive cough GI: Denies: abdominal pain, nausea, vomiting or diarrhea : Reports: dysuria and other (urinary production) Musc: Denies: extremity pain Skin/Breast: Denies: rash or new lesions Neuro: Denies: weakness in extremities Psych: Reports: other (Normal mood) Raul/Lymph: Denies: easy bruising PFSH ED PFSH: Medical History Chronic indwelling Dumont catheter Hydronephrosis Neurogenic bladder Perforated abdominal viscus Condition resolved Post-traumatic quadriplegia PVD (peripheral vascular disease) Quadriplegia Recurrent sepsis due to urinary tract infection Surgical History H/O bladder repair surgery H/O cystoscopy H/O partial cystectomy H/O Spinal surgery History of hysterectomy History of partial gastrectomy Family History Other CAD (coronary artery disease) Diabetes Hypertension Social History Alcohol intake: never Household members: spouse Housing: House Marital status: Current occupational status: disabled Physical Exam Const: COMMON NORMALS: alert HENMT: COMMON NORMALS: atraumatic HEAD & SCALP: atraumatic MOUTH: moist mucous membranes not abnormal Eye: COMMON NORMALS: EOMs intact bilaterally and conjunctivae normal CONJUNCTIVA: Yes conjunctivae normal Neck/C-Spine: COMMON NORMALS: full ROM and supple Resp: COMMON NORMALS: normal respiratory effort and clear to auscultation bilaterally AUSCULTATION: clear to auscultation bilaterally Cardio: COMMON NORMALS: regular rate RATE: regular rate GI: COMMON NORMALS: Soft to palpation and non-tender PALPATION: Yes Soft to palpation OTHER: No focal TTP. NO guarding rebound, guarding, rigidity. No CVA tenderness to percussion. Neg Lemos/Neg McBurney's point tenderness, no suprabupic tenderness to palpation. Extremity: COMMON NORMALS: full ROM OTHER: +R PICC line intact Neuro: SENSORIUM/ORIENTATION: Yes alert MOTOR EXAM: No Abnormal motor strength present and Other motor observations present (no focal motor deficits) Psych: COMMON NORMALS: speech normal SPEECH: Yes normal speech MOOD & AFFECT: Yes euthymic mood Skin: NARRATIVE SKIN EXAM: + Suprapubic catheter insertion site dry clean intact without any leakage of urine Course Vital Signs: Vital signs: Vital Signs Temperature 98.7 F 05/12/22 15:31 Pulse Rate 84 05/12/22 18:07 Respiratory Rate 18 05/12/22 19:31 Blood Pressure 126/79 05/12/22 18:07 Pulse Oximetry 99 05/12/22 18:07 [facility] - General Adult Medical Decision Making 47-year-old female history of quadriplegia, recent suprapubic catheter placement on 04/30/2022 presenting to emergency room with concern of persisting urethral urine production and pain around the suprapubic catheter site. On exam, patient is hemodynamically stable without any focal tenderness palpation of the abdomen. The suprapubic catheter insertion site appears to be dry/clean/intact. Patient is noted to have white count 5.2 today. Potassium 6.0. Creatinine 0.6. CT scan showed pyelonephritis with chronic cystitis. Patient received 40 mg of Lasix. Patient has previous resistance to cefepime. S/p imipenem. Case was discussed with Dr. Culp who will follow patient. Disposition: admission Lab Data : 05/12/22 16:42 05/12/22 16:42 Radiology Impressions Abdomen/Pelvis CT 05/12/22 16:31 IMPRESSION: 1. There is marked thickening and enhancement of the wall of the renal pelves and ureters concerning for urinary tract infection. 2. There is also a delayed right nephrogram and streaky hypodensity in the cortex of the right kidney with right perinephric fat stranding concerning for right pyelonephritis. 3. Suprapubic catheter in the bladder. 4. Unchanged cystic lesion in the right adnexa/pelvis is a probable right ovarian cyst measuring 3.8 cm in size. 5. Unchanged left adrenal adenoma. Laboratory Results WBC 5.2 10^3/uL (4.0-10.0) 05/12/22 16:42 RBC 4.42 10^6/uL (4.1-5.3) 05/12/22 16:42 Hgb 12.9 g/dL (11.5-15.3) 05/12/22 16:42 Hct 38.5 % (37.0-47.0) 05/12/22 16:42 MCV 87.1 fl (81-99) 05/12/22 16:42 MCH 29.2 pg (28.0-34.0) 05/12/22 16:42 MCHC 33.5 g/dL (30.0-36.0) 05/12/22 16:42 RDW 14.2 % (12.1-15.1) 05/12/22 16:42 Plt Count 324 10^3/cmm (130-400) 05/12/22 16:42 MPV 10.4 fL (7.4-10.4) 05/12/22 16:42 Neut % (Auto) 60.2 % 05/12/22 16:42 Lymph % (Auto) 28.4 % 05/12/22 16:42 [place] % (Auto) 6.3 % 05/12/22 16:42 Eos % (Auto) 3.5 % 05/12/22 16:42 Baso % (Auto) 0.6 % 05/12/22 16:42 Neut # (Auto) 3.14 10^3/uL (1.8-7.7) 05/12/22 16:42 Lymph # (Auto) 1.5 10^3/uL (0.8-4.8) 05/12/22 16:42 [place] # (Auto) 0.3 10^3/uL (0.2-0.9) 05/12/22 16:42 Eos # (Auto) 0.2 10^3/uL (0.0-0.8) 05/12/22 16:42 Baso # (Auto) 0.0 10^3/uL (0.0-0.1) 05/12/22 16:42 Nucleated RBC % (auto) 0 % 05/12/22 16:42 Nucleated RBCs # 0.0 /100WBC 05/12/22 16:42 Sodium 131 mmol/L (136-145) L 05/12/22 16:42 Potassium 6.0 mmol/L (3.5-5.1) H 05/12/22 16:42 Chloride 99 mmol/L (98-107) 05/12/22 16:42 Carbon Dioxide 20 mmol/L (22-29) L 05/12/22 16:42 Anion Gap 18.0 (5-19) 05/12/22 16:42 BUN 11 mg/dL (6-20) 05/12/22 16:42 Creatinine 0.6 mg/dL (0.5-0.9) 05/12/22 16:42 GFR Calculation 107.2 mL/min (90-130) 05/12/22 16:42 Glucose 96 mg/dL (65-115) 05/12/22 16:42 Calculated Osmolality 271 mOsm/kg (285-295) L 05/12/22 16:42 Calcium 9.0 mg/dL (8.5-10.5) 05/12/22 16:42 Total Bilirubin 0.2 mg/dL (0.15-1.2) 05/12/22 16:42 AST 21 U/L (0-32) 05/12/22 16:42 ALT 10 U/L (0-33) 05/12/22 16:42 Alkaline Phosphatase 79 IU/L (35-105) 05/12/22 16:42 Total Protein 7.3 g/dL (6.6-8.7) 05/12/22 16:42 Albumin 3.5 g/dL (3.5-5.2) 05/12/22 16:42 Globulin 3.8 g/dL (1.3-4.6) 05/12/22 16:42 Lipase 20 U/L (13-60) 05/12/22 16:42 Urine Color Colorless (Yellow) 05/12/22 17:40 Urine Appearance Hazy (CLEAR) A 05/12/22 17:40 Urine pH 7 (5-7) 05/12/22 17:40 Ur Specific [place] 1.005 (1.005-1.030) 05/12/22 17:40 Urine Protein Neg (Negative) 05/12/22 17:40 Urine Glucose (UA) Norm (Normal) 05/12/22 17:40 Urine Ketones Negative (Negative) 05/12/22 17:40 Urine Blood Neg (Negative) 05/12/22 17:40 Urine Nitrate Negative (Negative) 05/12/22 17:40 Urine Bilirubin Neg (Negative) 05/12/22 17:40 Urine Urobilinogen Norm mg/dL (Negative) 05/12/22 17:40 Ur Leukocyte Esterase 2+ (Negative) H 05/12/22 17:40 Urine RBC 0-4 /hpf (0-2) H 05/12/22 17:40 Urine WBC 25-40 /hpf (0-5) H 05/12/22 17:40 Ur Squamous Epith Cells 10-15 /hpf (0-5) H 05/12/22 17:40 Amorphous Sediment Not Reportable 05/12/22 17:40 Urine Bacteria 1+ /hpf (NONE) H 05/12/22 17:40 Urine Yeast 1+ /hpf H 05/12/22 17:40 Imaging Data Other Imaging: Radiologist's impression: [address] [address] [address] Scan Report Signed Patient: Rosanne Morales [id number] [facility] 1975 [id number] Age/Sex: 47 / F ADM Date: 05/12/22 Loc: ER Room/Bed: Attending Dr: Ordering Provider/Ordering MD: Alf Lopez MD Date of Service: 05/12/22 Procedure(s): CT abdomen pelvis w con* [id number] Accession Number(s): [id number] Report Number: [id number] PROCEDURE INFORMATION: Exam: CT Abdomen And Pelvis With Contrast Exam date and time: 05/12/2022 6:50 PM Age: 47 years old Clinical indication: Abdominal pain; Localized; Lower; Prior surgery; Surgery date: <1 month; Surgery type: Suprapubic catheter on 04/30/2022. Partial gastrectomy. Partial cystectomy. Hysterectomy. Patient HX: C/O continued pelvic pain with dysuria since suprapubic catheter placement on 04/30/2022. ; Additional info: Suprapubic catheter site pain, dysuria TECHNIQUE: Imaging protocol: Computed tomography of the abdomen and pelvis with contrast. Radiation optimization: All CT scans at this facility use at least one of these dose optimization techniques: automated exposure control; mA and/or kV adjustment per patient size (includes targeted exams where dose is matched to clinical indication); or iterative reconstruction. Contrast material: OMNI 350; Contrast volume: 90 ml; Contrast route: INTRAVENOUS (IV);? COMPARISON: CT kidney stone [id number] 05/01/2022 6:09 PM RADIATION DOSE METRICS: Total DLP (mGy-cm): 1330.73 FINDINGS: Tubes, catheters and devices: There is a suprapubic catheter within the bladder. Lungs: There is unchanged linear atelectasis versus scarring in the lung bases. Diaphragm: A small hiatal hernia is present. Liver: There is a diffuse decrease in hepatic parenchymal density, consistent with fatty infiltration. Gallbladder and bile ducts: Normal. No calcified stones. No ductal dilation. Pancreas: The pancreas is normal. Spleen: The spleen is normal. Adrenal glands: There is an unchanged left adrenal adenoma measuring 1 cm. The right adrenal gland is normal. Kidneys and ureters: There is continued but mildly decreased bilateral hydronephrosis compared to the prior exam. There is marked thickening and enhancement of the wall of the renal pelves and ureters concerning for urinary tract infection. There is also a delayed right nephrogram and streaky hypodensity in the cortex of the right kidney with right perinephric fat stranding concerning for right pyelonephritis. Stomach and bowel: There is moderately excessive colonic stool content. There is no evidence of colitis/diverticulitis. Postoperative changes of the stomach are noted. Previously there were dilated loops of small bowel concerning for ileus in this has improved. Appendix: A normal appendix is identified. Intraperitoneal space: Unremarkable. No free air. No significant fluid collection. Vasculature: Unremarkable.No abdominal aortic aneurysm. Lymph nodes: Unremarkable.No enlarged lymph nodes. Urinary bladder: The bladder is collapsed. Reproductive: Unchanged cystic lesion in the right adnexa/pelvis is a probable right ovarian cyst measuring 3.8 cm in size. There has been a hysterectomy. Bones/joints: Moderate to severe degenerative changes are noted in the spine and pelvis. Soft tissues: Unremarkable. Other findings: No obstructing calculi. CT/CT abdomen pelvis w con* [id number] IMPRESSION: 1. There is marked thickening and enhancement of the wall of the renal pelves and ureters concerning for urinary tract infection. 2. There is also a delayed right nephrogram and streaky hypodensity in the cortex of the right kidney with right perinephric fat stranding concerning for right pyelonephritis. 3. Suprapubic catheter in the bladder. 4. Unchanged cystic lesion in the right adnexa/pelvis is a probable right ovarian cyst measuring 3.8 cm in size. 5. Unchanged left adrenal adenoma. ? Dictated By: Hortencia Dai Signed By: Hortencia Dai Signed Date/Time: 05/12/221934 DD/ 49 Discharge Plan Discharge Patient Disposition: Admitted As Inpatient Clinical Impression: Pyelonephritis, Suprapubic catheter Condition: Stable Coding Level of Care Code ED Hearings Reporter for Chg Fwd Exam Comprehensive
[2022-05-12] MEDS: morphine 4 mg/mL SDV 1 mL IVP (16:09)
[2022-05-12] MEDS: sodium chloride 0.9% 1,000 ML 999 ML IV (16:10)
--- NOTE | 2022-05-12 16:31 | CTR_ITS ---
PROCEDURE INFORMATION: Exam: CT Abdomen And Pelvis With Contrast Exam date and time: 05/12/2022 6:50 PM Age: 47 years old Clinical indication: Abdominal pain; Localized; Lower; Prior surgery; Surgery date: <1 month; Surgery type: Suprapubic catheter on 04/30/2022. Partial gastrectomy. Partial cystectomy. Hysterectomy. Patient HX: C/O continued pelvic pain with dysuria since suprapubic catheter placement on 04/30/2022. ; Additional info: Suprapubic catheter site pain, dysuria TECHNIQUE: Imaging protocol: Computed tomography of the abdomen and pelvis with contrast. Radiation optimization: All CT scans at this facility use at least one of these dose optimization techniques: automated exposure control; mA and/or kV adjustment per patient size (includes targeted exams where dose is matched to clinical indication); or iterative reconstruction. Contrast material: OMNI 350; Contrast volume: 90 ml; Contrast route: INTRAVENOUS (IV); COMPARISON: CT kidney stone [id number] 05/01/2022 6:09 PM RADIATION DOSE METRICS: Total DLP (mGy-cm): 1330.73 FINDINGS: Tubes, catheters and devices: There is a suprapubic catheter within the bladder. Lungs: There is unchanged linear atelectasis versus scarring in the lung bases. Diaphragm: A small hiatal hernia is present. Liver: There is a diffuse decrease in hepatic parenchymal density, consistent with fatty infiltration. Gallbladder and bile ducts: Normal. No calcified stones. No ductal dilation. Pancreas: The pancreas is normal. Spleen: The spleen is normal. Adrenal glands: There is an unchanged left adrenal adenoma measuring 1 cm. The right adrenal gland is normal. Kidneys and ureters: There is continued but mildly decreased bilateral hydronephrosis compared to the prior exam. There is marked thickening and enhancement of the wall of the renal pelves and ureters concerning for urinary tract infection. There is also a delayed right nephrogram and streaky hypodensity in the cortex of the right kidney with right perinephric fat stranding concerning for right pyelonephritis. Stomach and bowel: There is moderately excessive colonic stool content. There is no evidence of colitis/diverticulitis. Postoperative changes of the stomach are noted. Previously there were dilated loops of small bowel concerning for ileus in this has improved. Appendix: A normal appendix is identified. Intraperitoneal space: Unremarkable. No free air. No significant fluid collection. Vasculature: Unremarkable.No abdominal aortic aneurysm. Lymph nodes: Unremarkable.No enlarged lymph nodes. Urinary bladder: The bladder is collapsed. Reproductive: Unchanged cystic lesion in the right adnexa/pelvis is a probable right ovarian cyst measuring 3.8 cm in size. There has been a hysterectomy. Bones/joints: Moderate to severe degenerative changes are noted in the spine and pelvis. Soft tissues: Unremarkable. Other findings: No obstructing calculi. CT/CT abdomen pelvis w con* [id number] IMPRESSION: 1. There is marked thickening and enhancement of the wall of the renal pelves and ureters concerning for urinary tract infection. 2. There is also a delayed right nephrogram and streaky hypodensity in the cortex of the right kidney with right perinephric fat stranding concerning for right pyelonephritis. 3. Suprapubic catheter in the bladder. 4. Unchanged cystic lesion in the right adnexa/pelvis is a probable right ovarian cyst measuring 3.8 cm in size. 5. Unchanged left adrenal adenoma.
[2022-05-12 16:46] LABS: Basophils % 0.6 %; Eosinophils # 0.2 10^3/uL (0.0-0.8); Eosinophils % 3.5 %; Hematocrit 38.5 % (37.0-47.0); Hemoglobin 12.9 g/dL (11.5-15.3); Lymphocytes # 1.5 10^3/uL (0.8-4.8); Lymphocytes % 28.4 %; Mean Corpuscular HGB Conc 33.5 g/dL (30.0-36.0); Mean Corpuscular Hemoglobin 29.2 pg (28.0-34.0); Mean Corpuscular Volume 87.1 fl (81-99); Mean Platelet Volume 10.4 fL (7.4-10.4); Monocytes # 0.3 10^3/uL (0.2-0.9); Monocytes % 6.3 %; Neutrophils # 3.14 10^3/uL (1.8-7.7); Neutrophils % 60.2 %; Nucleated Red Blood Cells % 0 %; Platelet Count 324 10^3/cmm (130-400); Red Blood Count 4.42 10^6/uL (4.1-5.3); Red Cell Distribution Width 14.2 % (12.1-15.1); White Blood Count 5.2 10^3/uL (4.0-10.0)
[2022-05-12 17:22] LABS: Albumin Level 3.5 g/dL (3.5-5.2); Alkaline Phosphatase 79 IU/L (35-105); Blood Urea Nitrogen 11 mg/dL (6-20); Carbon Dioxide 20 mmol/L (22-29); Chloride 99 mmol/L (98-107); Globulin 3.8 g/dL (1.3-4.6); Glomerular Filtration Rate 107.2 mL/min (90-130); Glucose 96 mg/dL (65-115); Lipase 20 U/L (13-60); Osmolality Calculated 271 mOsm/kg (285-295); Sodium 131 mmol/L (136-145); Total Bilirubin 0.2 mg/dL (0.15-1.2); Total Protein 7.3 g/dL (6.6-8.7)
[2022-05-12 17:29] LABS: Alanine Aminotransferase 10 U/L (0-33); Aspartate Amino Transferase 21 U/L (0-32)
[2022-05-12] MEDS: iohexol 350 mg/mL 100 mL Btl IV (19:01)
[2022-05-12] MEDS: HYDROmorphone 1 mg/mL INJ 1 mL IVP (19:31)
[2022-05-12 20:06] LABS: Add Urine Microscopic? YES; Bilirubin Urine Neg (Negative); Blood Urine Neg (Negative); Glucose Urine UA Norm (Normal); Ketones Urine Negative (Negative); Leukocyte Esterase Urine 2+ (Negative); Nitrate Urine Negative (Negative); Protein Urine Neg (Negative); Specific Gravity, Urine 1.005 (1.005-1.030); Urine Appearance Hazy (CLEAR); Urine Color Colorless (Yellow); Urobilinogen Urine Norm (Negative); pH Urine 7 (5-7)
[2022-05-12 20:07] LABS: Add Urine Culture? Yes; Bacteria Urine 1+ /hpf; RBC Urine 0-4 /hpf (0-2); WBC Urine 25-40 /hpf (0-5)
[2022-05-12] MEDS: HYDROmorphone 1 mg/mL INJ 1 mL 0.5 MG IVP (21:20)
[2022-05-12] MEDS: FUROsemide 10 mg/mL SDV 4mL 40 MG IVP (21:20)
--- NOTE | 2022-05-12 21:25 | PC.NURSE ---
2100 pt repositioned in bed pt denies needs
--- NOTE | 2022-05-12 21:26 | PC.NURSE ---
193 pt repositioned in bed requesting pain meds.
--- NOTE | 2022-05-12 21:52 | P.HP_ITS ---
Providers/Chief Complaint Admitting Physician: Simon Huitron Chief Complaint: GENERALIZED WEAKNESS History of Present Illness Very pleasant 47-year-old lady with quadriplegia with suprapubic catheter, with recent admission for complicated urinary infection with ESBL E. coli, discharged 05/06, returns to the hospital due to urinary symptoms with lower abdominal discomfort, dysuria with urethral urine output, pain around suprapubic catheter insertion site. Appears there was some accidental pulling of the [facility]ic catheter at the [facility]. No leakage is reported around suprapubic catheter. CT abdomen pelvis obtained in ER shows marked thickening and enhancement of the wall of the renal pelvis and ureters concerning for urinary tract infection. Delayed right nephrogram and streaky hypodensity in the cortex of the right kidney with right paranephric fat stranding concerning for right pyelonephritis. Suprapubic catheter in the bladder. Unchanged cystic lesion in the right adnexa/pelvis inseparable right ovarian cyst measuring 2.8 cm in size. Unchanged left adrenal adenoma. Right PICC line in place since prior hospitalization at [facility]. Review of Systems Const: Denies: fever(s), chills, body aches or malaise Eyes: Denies: change in vision, eye discomfort or eye redness ENMT: Denies: throat pain, oral sores or ear or mastoid pain Card: Denies: chest pain, edema, pre-syncope or dyspnea on exertion Resp: Denies: dyspnea, productive cough, change in phlegm color or hemoptysis GI: Denies: abdominal pain, nausea, vomiting, diarrhea, constipation, hematochezia or melena : Reports: dysuria, urinary frequency and urinary incontinence; Denies: hematuria Musc: Denies: back pain, joint swelling or joint redness Skin/Breast: Denies: rash or new lesions Neuro: Denies: headache(s), numbness in extremities, weakness in extremities, dizziness, confusion or seizure-like activity Endo: Denies: polyuria or polydipsia Raul/Lymph: Denies: easy bleeding or tender lymph nodes All/Imm: Denies: urticaria or tongue swelling Medications/Allergies Home Medications Medication Instructions Recorded Confirmed Last Taken Type ascorbic acid (vitamin C) 1,000 mg 1,000 mg PO BID@08,20 0605/12/22 05/12/22 History tablet (Vitamin C) lactulose 10 gram/15 mL (15 mL) 30 ml PO TID 04/22/20 05/12/22 05/12/22 History oral solution methenamine hippurate 1 gram tablet 1 g PO BID@08,04/22/20 05/12/22 05/12/22 History pantoprazole 40 mg tablet,delayed 40 mg PO DAILY 04/22/20 05/12/22 05/12/22 History release metoclopramide HCl 10 mg tablet 10 mg PO Q6H PRN #20 tab 05/28/20 05/12/22 05/12/22 Rx sennosides 8.6 mg-docusate sodium 2 tab PO BID@05/28/20 05/12/22 05/12/22 History 50 mg tablet (Senna Plus) tizanidine 4 mg tablet 4 mg PO TID@08,, PRN 11/18/20 05/12/22 05/08/22 History alprazolam 0.25 mg tablet (Xanax) 0.25 mg PO TID PRN #10 tab 11/22/20 05/12/22 05/09/22 Rx fentanyl 50 mcg/hr transdermal 1 patch TRANSDERMAL Q72H #5 ea 11/22/20 05/12/22 05/10/22 Rx patch morphine concentrate 100 mg/5 mL 5 mg (0.25 mL) PO Q4H PRN #30 ml 11/22/20 05/12/22 05/09/22 Rx (20 mg/mL) oral solution acetaminophen 500 mg tablet 500 mg PO Q6H PRN 08/17/21 05/12/22 03/26/22 History naloxone 0.4 mg/mL injection 0.4 mg IM Q2M PRN 08/17/21 05/12/22 Unknown History solution polyethylene glycol 3350 17 17 g PO DAILY PRN 08/17/21 05/12/22 05/12/22 History gram/dose oral powder (Miralax) pravastatin 40 mg tablet 40 mg PO BEDTIME 08/17/21 05/12/22 05/11/22 History simethicone 80 mg chewable tablet 80 mg PO .AFTER MEALS 08/17/21 05/12/22 05/12/22 History methylnaltrexone 12 mg/0.6 mL 0.6 ml SUBCUT Q3D PRN 01/24/22 05/12/22 03/27/22 History subcutaneous syringe (Relistor) ondansetron HCl 4 mg tablet 4 mg PO Q6H PRN 01/24/22 05/12/22 05/12/22 History docusate sodium 100 mg capsule 100 mg PO BID 02/11/22 05/12/22 05/12/22 History (Colace) gabapentin 600 mg tablet 1,200 mg PO TID 02/11/22 05/12/22 05/12/22 History calcium carbonate 400 mg calcium 400 mg PO DAILY PRN 03/06/22 05/12/22 Unknown History (1,000 mg) chewable tablet (Tums Ultra) insulin lispro 100 unit/mL See Rx Instructions .ROUTE .COMPLEX 03/06/22 05/12/22 05/12/22 History subcutaneous pen (Humalog KwikPen (U-100) Insulin) pregabalin 50 mg capsule (Lyrica) 50 mg PO BID 03/06/22 05/12/22 05/12/22 History magnesium hydroxide 400 mg/5 mL 5 ml PO DAILY #355 ml 03/12/22 05/12/22 05/12/22 Rx oral suspension (Milk of Magnesia) potassium chloride 20 mEq 20 meq PO DAILY 03/28/22 05/12/22 05/12/22 History tablet,extended release imipenem-cilastatin 500 mg 1 ml IV Q6H 14 Days #1 ea 05/06/22 05/12/22 05/12/22 Rx intravenous solution heparin lock flush (porcine) 10 5 unit IV Q6H 05/12/22 05/12/22 05/12/22 History unit/mL intravenous solution lidocaine 5 % topical patch 1 patch TOPICAL Q12H 05/12/22 05/12/22 05/12/22 History metformin 1,000 mg tablet 1,000 mg PO BID 05/12/22 05/12/22 05/12/22 History miconazole nitrate 2 % vaginal 1 applic VAGINAL BID 05/12/22 05/12/22 Unknown History cream (Monistat 7) sertraline 50 mg tablet 50 mg PO DAILY 05/12/22 05/12/22 05/11/22 History sodium chloride 0.9 % (flush) 10 ml IV Q6H 05/12/22 05/12/22 05/12/22 History (Normal Saline Flush) Allergies Allergy/AdvReac Type Severity Reaction Status Date / Time No Known Allergies Allergy Verified 05/12/22 16:05 PFSH Acute PFSH: Medical History Chronic indwelling Dumont catheter Hydronephrosis Neurogenic bladder Perforated abdominal viscus Condition resolved Post-traumatic quadriplegia PVD (peripheral vascular disease) Quadriplegia Recurrent sepsis due to urinary tract infection Surgical History H/O bladder repair surgery H/O cystoscopy H/O partial cystectomy H/O Spinal surgery History of hysterectomy History of partial gastrectomy Family History Other CAD (coronary artery disease) Diabetes Hypertension Social History Alcohol intake: never Household members: spouse Housing: House Marital status: Current occupational status: disabled Vitals/I&O/Wt Last Vital Signs Temp 98.7 F 05/12/22 15:31 Pulse 89 05/12/22 21:21 Resp 16 05/12/22 21:21 BP 143/88 05/12/22 21:21 Pulse Ox 97 05/12/22 21:21 Weight last 48 hrs Weight 65.771 kg Physical Exam Narrative: Quadriplegic Const: COMMON NORMALS: alert GENERAL APPEARANCE: cooperative ORIENTATION/CONSCIOUSNESS: Yes awake HENMT: COMMON NORMALS: normocephalic, EAC's normal, Normal external nose present and moist oral mucous membranes HEAD & SCALP: normocephalic NOSE: Normal external nose present EXTERNAL AUDITORY CANAL: EAC's normal Neck/C-Spine: COMMON NORMALS: no meningeal signs Chest: CHEST: Yes Symmetrical chest wall rise Resp: COMMON NORMALS: clear to auscultation bilaterally AUSCULTATION: clear to auscultation bilaterally Cardio: COMMON NORMALS: regular rate, regular rhythm and No murmurs present (Cardio) RATE: regular rate RHYTHM: regular rhythm GI: COMMON NORMALS: Normal to inspection, nondistended, normoactive bowel sounds present, Soft to palpation and non-tender PALPATION: Yes Soft to palpation Extremity: COMMON NORMALS: no pedal edema OTHER: Foot protectors Neuro: SENSORIUM/ORIENTATION: Yes alert Psych: COMMON NORMALS: mental status grossly normal Skin: COMMON NORMALS: no wounds RASHES: no rashes OTHER: Dimple from healed blood blister on left heel Data : 05/12/22 16:42 05/12/22 16:42 A&P Assessment and plan (1) Complicated UTI (urinary tract infection): ESBL E. coli on culture 05/05. Persistent urinary symptoms, imaging findings suggestive of pyelonephritis, although otherwise afebrile, without signs of sepsis. For now continue Primaxin. Follow-up repeat urine culture. Reassess for development of sepsis, or other resistant organism in urine. Follow-up with urology regarding recurrent urinary infections. She is inquiring about urostomy. Remove PICC line once she is done with IV antibiotics. Status: Acute (2) Dysuria: Add Pyridium. Status: Acute Plan Hyperkalemia: Hold potassium supplement. Consider discontinuing at discharge. Low potassium diet. Received a dose of Lasix. Mild hyponatremia: Recheck sodium Almost healed blood blister on the left heel Quadriplegia Attestations Medical Necessity Statement*: Place in observation for additional assessment management of complicated urinary tract infection. Coding Level of Care Code Acute Engineering Vice President for [facility] Diagnoses Complicated UTI (urinary tract infection) N39.0 Dysuria R30.0
[2022-05-13] VITALS (11 sets, daily range): BP systolic 83–142; BP diastolic 62–92; PULSE 77–119; RESP 16–18; TEMP 36.4–36.8; O2SAT 92–96
[2022-05-13] MEDS: ALPRAZolam 0.5 mg Tablet 0.25 MG PO ×3 (00:16→21:32)
[2022-05-13] MEDS: lactulose oral liq 20 gm/30 mL UDC PO ×4 (00:17→21:32)
[2022-05-13] MEDS: gabapentin 400 mg Capsule 1200 MG PO ×4 (00:17→21:31)
[2022-05-13] MEDS: heparin 5,000 unit/mL INJ 1 mL 5000 UNIT SUBCUT ×4 (00:18→21:33)
[2022-05-13] MEDS: pregabalin 50 mg Capsule PO ×3 (00:19→17:35)
[2022-05-13] MEDS: tizanidine 4 mg Tablet PO ×4 (00:40→21:32)
[2022-05-13] MEDS: fentaNYL 50 mcg Patch 1 PATCH TRANSDERMA (00:51)
[2022-05-13] MEDS: morphine 10 mg/0.5 mL oral liq UD 5 MG PO (04:53)
[2022-05-13] MEDS: metoclopramide 10 mg Tablet PO ×2 (05:00→23:08)
[2022-05-13 05:12] LABS: Basophils # 0.1 10^3/uL (0.0-0.1); Basophils % 0.8 %; Eosinophils # 0.2 10^3/uL (0.0-0.8); Eosinophils % 2.6 %; Hematocrit 43.7 % (37.0-47.0); Hemoglobin 14.3 g/dL (11.5-15.3); Lymphocytes # 1.6 10^3/uL (0.8-4.8); Lymphocytes % 25.2 %; Mean Corpuscular HGB Conc 32.7 g/dL (30.0-36.0); Mean Corpuscular Hemoglobin 28.3 pg (28.0-34.0); Mean Corpuscular Volume 86.5 fl (81-99); Mean Platelet Volume 9.8 fL (7.4-10.4); Monocytes # 0.5 10^3/uL (0.2-0.9); Monocytes % 7.2 %; Neutrophils # 3.93 10^3/uL (1.8-7.7); Neutrophils % 63.2 %; Nucleated Red Blood Cells % 0 %; Platelet Count 377 10^3/cmm (130-400); Red Blood Count 5.05 10^6/uL (4.1-5.3); Red Cell Distribution Width 14.4 % (12.1-15.1); White Blood Count 6.2 10^3/uL (4.0-10.0)
[2022-05-13 05:31] LABS: Alanine Aminotransferase 9 U/L (0-33); Albumin Level 3.9 g/dL (3.5-5.2); Alkaline Phosphatase 88 IU/L (35-105); Anion Gap 19.3 (5-19); Aspartate Amino Transferase 17 U/L (0-32); Blood Urea Nitrogen 14 mg/dL (6-20); Calcium 9.6 mg/dL (8.5-10.5); Carbon Dioxide 25 mmol/L (22-29); Chloride 99 mmol/L (98-107); Glomerular Filtration Rate 76.9 mL/min (90-130); Glucose 132 mg/dL (65-115); Osmolality Calculated 290 mOsm/kg (285-295); Potassium 4.3 mmol/L (3.5-5.1); Sodium 139 mmol/L (136-145); Total Bilirubin 0.2 mg/dL (0.15-1.2); Total Protein 7.9 g/dL (6.6-8.7)
[2022-05-13 06:43] LABS: Glucose Point of Care 122 mg/dL (70-110)
--- NOTE | 2022-05-13 08:18 | PC.NURSE ---
I reported the low bp to the nurse. 83/62 85/62
--- NOTE | 2022-05-13 08:44 | PC.NURSE ---
Addendum entered by Analia Koo RN 05/13/22 08:47: Dr. Robins notified(not Dr. Kunz),bp now 103/72 Original Note: pt bp 85/62 manual, pt asymptomatic at this time. Attempted to notify Dr. Kunz, unable to reach him at this time.
[2022-05-13] MEDS: ondansetron 2 mg/ML SDV 2 mL 4 MG IVP ×3 (09:05→21:34)
[2022-05-13] MEDS: pantoprazole DR 40 mg Tablet PO (09:10)
[2022-05-13] MEDS: phenazopyridine 100 mg Tablet PO ×3 (09:11→17:35)
[2022-05-13] MEDS: sennosides-docusate Tablet 2 TAB PO ×2 (09:12→21:30)
[2022-05-13] MEDS: docusate sodium 100 mg Capsule PO ×2 (09:12→17:35)
[2022-05-13] MEDS: sertraline 50 mg Tablet PO (09:12)
[2022-05-13] MEDS: magnesium hydroxide 30 mL UDC 5 ML PO (09:13)
[2022-05-13] MEDS: miconazole 2% vaginal cream 45 gm 1 APPFUL VAGINAL ×2 (09:36→17:37)
[2022-05-13] MEDS: simethicone 80 mg Chew PO ×3 (09:45→17:34)
[2022-05-13] MEDS: polyethylene glycol 3350 Pkt 17 gm PO (10:18)
[2022-05-13 10:48] LABS: Glucose Point of Care 145 mg/dL (70-110)
[2022-05-13] MEDS: insulin lispro 100 unit/1 mL SUBCUT ×2 (12:37→17:35)
--- NOTE | 2022-05-13 12:47 | P.PN_ITS ---
Subjective Subjective: seen this AM. Patient unable to keep food down. She vomits. Also has not had a BM in 2.5 days. She is on multiple consitpation medications. She would like to see Dr. Culp Vitals/I&O/Wt Last Vital Signs Temp 97.5 F L 05/13/22 11:36 Pulse 94 05/13/22 11:36 Resp 16 05/13/22 11:36 BP 110/84 05/13/22 11:36 Pulse Ox 95 05/13/22 11:36 05/12/22 05/13/22 05/13/22 22:59 06:59 14:59 Intake Total 1200 / 1200 100 / 100 Output Total 3000 / 3000 Balance -1800 / -1800 100 / 100 Weight last 48 hrs Weight 65.317 kg Weight 65.771 kg Physical Exam Narrative: General: Alert oriented x3, patient seen laying in bed appearing comfortable HEENT: Normocephalic, atraumatic, EOMI, breathing normally no acute respiratory distress. Cardio: Regular rate rhythm, normal S1-S2, no murmurs Respiratory: No wheezes no rhonchi noted, clear to auscultation bilaterally. GI: Abdomen soft, no distention, no guarding or rigidity, nontender to palpation Extremities: Trace lower extremity edema, trace upper extremity edema bilaterally, quadriplegia Stage I decubitus ulcer present on back. Data : 05/13/22 04:56 05/13/22 04:56 A&P Assessment and plan (1) Dysuria: Status: Acute (2) Pyelonephritis: Status: Acute (3) Suprapubic catheter: Status: Acute (4) Constipation: Status: Acute (5) YEN (acute kidney injury): Status: Acute (6) Sepsis: Status: Acute (7) Complicated UTI (urinary tract infection): Status: Acute (8) UTI (urinary tract infection): Status: Acute (9) History of ESBL E. coli infection: Status: Acute (10) Hydronephrosis: Status: Acute Qualifiers: Hydronephrosis type: other Qualified Code(s): N13.39 - Other hydronephrosis (11) Bloating: Status: Chronic (12) Sacral decubitus ulcer, stage IV: Status: Acute (13) Nausea: Status: Acute (14) Chronic indwelling Dumont catheter: Status: Acute Plan #Right pyelonephritis #Acute on chronic UTI, history of ESBL #Decubitus ulcer present on admission, stage 1 #Hx of Chronic right lower quadrant pain #Quadriparesis #Severe constipation #Diabetes mellitus type 2, insulin-dependent #Hx of recent suprapubic catheter - Continue primaxin x [address] picc line. - Continue on bowel regimen - Clear liquid diet and slowly advance - Reglan for nausea, zofran alternating. ? Lovenox for DVT prophylaxis ? D-dimer elevated.CTA ruled out PE. Shortness of breath improved. -Lantus 10 daily plus sliding scale - SUprapubic catheter maintanance - Dr. Culp consulted by ER. Will await for recommendations. Full code Attestations Medical Necessity Statement*: Will need to stay for management of pyelonephritis and gastritis. Unable to tolerate food and vomitting. 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 coli infection Z86.19 Hydronephrosis N13.39 Hydronephrosis type: other Bloating R14.0 Sacral decubitus ulcer, stage IV L89.154 Nausea R11.0 Chronic indwelling Dumont catheter Z96.0
[2022-05-13 16:50] LABS: Glucose Point of Care 153 mg/dL (70-110)
[2022-05-13 20:26] LABS: Glucose Point of Care 91 mg/dL (70-110)
[2022-05-13] MEDS: atorvastatin 40 mg Tablet PO (21:30)
[2022-05-14] VITALS (9 sets, daily range): BP systolic 89–102; BP diastolic 63–72; PULSE 73–92; RESP 17–19; TEMP 36.4–36.8; O2SAT 94–97
[2022-05-14 05:59] LABS: Blood Urea Nitrogen 12 mg/dL (6-20); Calcium 9.2 mg/dL (8.5-10.5); Carbon Dioxide 24 mmol/L (22-29); Chloride 97 mmol/L (98-107); Glomerular Filtration Rate 107.2 mL/min (90-130); Glucose 106 mg/dL (65-115); Osmolality Calculated 276 mOsm/kg (285-295); Sodium 133 mmol/L (136-145)
[2022-05-14 06:00] LABS: Anion Gap 16.1 (5-19); Potassium 4.1 mmol/L (3.5-5.1)
[2022-05-14] MEDS: heparin 5,000 unit/mL INJ 1 mL 5000 UNIT SUBCUT ×3 (06:00→22:10)
[2022-05-14 06:32] LABS: Glucose Point of Care 101 mg/dL (70-110)
--- NOTE | 2022-05-14 09:02 | P.PN_ITS ---
Subjective Subjective: Seen this am. No BM yet. Interested in urethral closure Will be seen by Dr. Culp today. Vitals/I&O/Wt Last Vital Signs Temp 98.1 F 05/14/22 11:45 Pulse 75 05/14/22 11:45 Resp 18 05/14/22 11:45 BP 102/63 05/14/22 11:45 Pulse Ox 97 05/14/22 11:45 05/13/22 05/14/22 05/14/22 22:59 06:59 14:59 Intake Total 440 / 540 100 / 640 240 / 240 Output Total 350 / 350 750 / 1100 Balance 90 / 190 -650 / -460 240 / 240 Weight last 48 hrs Weight 66.723 kg Weight 65.635 kg Weight 65.317 kg Weight 65.771 kg Physical Exam Narrative: General: Alert oriented x3, patient seen laying in bed appearing comfortable HEENT: Normocephalic, atraumatic, EOMI, breathing normally no acute respiratory distress. Cardio: Regular rate rhythm, normal S1-S2, no murmurs Respiratory: No wheezes no rhonchi noted, clear to auscultation bilaterally. GI: Abdomen soft, no distention, no guarding or rigidity, nontender to palpation Extremities: Trace lower extremity edema, trace upper extremity edema bilaterally, quadriplegia Stage I decubitus ulcer present on back. Data : 05/13/22 04:56 05/14/22 04:57 Micro: Microbiology 05/12/22 17:40 Urine Culture - Preliminary Urine,Clean Catch Yeast species A&P Assessment and plan (1) Nausea: Status: Acute (2) Hydronephrosis: Status: Acute Qualifiers: Hydronephrosis type: other Qualified Code(s): N13.39 - Other hydronephrosis (3) UTI (urinary tract infection): Status: Acute (4) History of ESBL E. coli infection: Status: Acute (5) Complicated UTI (urinary tract infection): Status: Acute (6) Pyelonephritis: Status: Acute (7) Suprapubic catheter: Status: Acute (8) Dysuria: Status: Acute Plan #Right pyelonephritis #Acute on chronic UTI, history of ESBL #Decubitus ulcer present on admission, stage 1 #Hx of Chronic right lower quadrant pain #Quadriparesis #Severe constipation #Diabetes mellitus type 2, insulin-dependent #Hx of recent suprapubic catheter - Continue primaxin x 14 days for pyelo. Was discharged on 14 days of primaxin previous admission. Will complete total of 14 days. [address] already in place. - Continue on bowel regimen - Transition to gi soft diet today. - Reglan for nausea, zofran alternating. ? Lovenox for DVT prophylaxis ? D-dimer elevated.CTA ruled out PE. Shortness of breath improved. -Lantus 10 daily plus sliding scale - SUprapubic catheter maintanance - Dr. Culp consulted by ER. Will await for recommendations. Full COde Attestations Medical Necessity Statement*: DC planning after urology consult. 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 coli infection Z86.19 Complicated UTI (urinary tract infection) N39.0 Pyelonephritis N12 Suprapubic catheter Z93.59 Dysuria R30.0
--- NOTE | 2022-05-14 10:21 | PM.CONSULT ---
Providers/Reason For Consult Consulting Physician/Specialty*: Urology/Culp Reason for Consult*: Neurogenic bladder, suprapubic tube placed recently, UTI Requesting Physician: Dr. Peace Attending Physician: Gwen Robins MD History of Present Illness History of Present Illness Rosanne Morales is a 47 year old female well-known to me for history of neurogenic bladder related to quadriplegia. She has had multiple complications with her bladder including intermittent hydronephrosis from bladder distention, history of leukoplakia, spontaneous bladder rupture with sepsis and near experience, and chronic indwelling catheters. She was referred to the [facility] for consideration of urinary diversion. Decision was made to try suprapubic tube first and on 04/30/2022 she had a 12 [place] percutaneous suprapubic tube placed. Catheter has been functioning well. She is scheduled for catheter change by her urologist at [facility] roughly 1 month to 6 weeks after the initial placement She did develop an infection and was admitted for treatment for that. In addition she has been having some intermittent drainage through the urethra. Reviewed options. She was asking as to whether it would make sense to consider closure of her urethra in order to avoid intermittent leaking from the urethra. Overall she is feeling much better since she was admitted and began on antibiotic therapy. Urology recommendations: 1. Keep appointment as scheduled at [facility] 2. Encouraged her to hold off on consideration of urethral closure until she has a tube size that is adequate for long-term management of the bladder. My expectation is when she gets up to a 20+ [place]i suprapubic tube the resistance through that tube will be significantly lowered which would likely allow spontaneous coaptation of the urethra and less chance of leaking per urethra. She was comfortable with that plan. Review of Systems Const: Denies: fever(s) or chills Eyes: Denies: eye discharge ENMT: Denies: hoarseness Card: Denies: chest pain or palpitations Resp: Denies: dyspnea or productive cough GI: Reports: abdominal pain (Mild lower abdominal pain after her tube had been accidentally pulled on. ) : Reports: other (Urethral leakage probably combination of relative decreased drainage from t) Musc: Denies: joint warmth Neuro: Reports: other (Quadriplegia) Psych: Denies: anxiety Endo: Denies: flushing Raul/Lymph: Denies: easy bruising, easy bleeding or enlarged lymph nodes All/Imm: Denies: urticaria or acute wheezing Medications/Allergies Home Medications Medication Instructions Recorded Confirmed Last Taken Type ascorbic acid (vitamin C) 1,000 mg 1,000 mg PO BID@,04/22/20 05/12/22 05/12/22 History tablet (Vitamin C) lactulose 10 gram/15 mL (15 mL) 30 ml PO TID 04/22/20 05/12/22 05/12/22 History oral solution methenamine hippurate 1 gram tablet 1 g PO BID@,04/22/20 05/12/22 05/12/22 History pantoprazole 40 mg tablet,delayed 40 mg PO DAILY 04/22/20 05/12/22 05/12/22 History release metoclopramide HCl 10 mg tablet 10 mg PO Q6H PRN #20 tab 05/28/20 05/12/22 05/12/22 Rx sennosides 8.6 mg-docusate sodium 2 tab PO BID@05/28/20 05/12/22 05/12/22 History 50 mg tablet (Senna Plus) tizanidine 4 mg tablet 4 mg PO TID@,, PRN 11/18/20 05/12/22 05/08/22 History alprazolam 0.25 mg tablet (Xanax) 0.25 mg PO TID PRN #10 tab 11/22/20 05/12/22 05/09/22 Rx fentanyl 50 mcg/hr transdermal 1 patch TRANSDERMAL Q72H #5 ea 11/22/20 05/12/22 05/10/22 Rx patch morphine concentrate 100 mg/5 mL 5 mg (0.25 mL) PO Q4H PRN #30 ml 11/22/20 05/12/22 05/09/22 Rx (20 mg/mL) oral solution acetaminophen 500 mg tablet 500 mg PO Q6H PRN 08/17/21 05/12/22 03/26/22 History naloxone 0.4 mg/mL injection 0.4 mg IM Q2M PRN 08/17/21 05/12/22 Unknown History solution polyethylene glycol 3350 17 17 g PO DAILY PRN 08/17/21 05/12/22 05/12/22 History gram/dose oral powder (Miralax) pravastatin 40 mg tablet 40 mg PO BEDTIME 08/17/21 05/12/22 05/11/22 History simethicone 80 mg chewable tablet 80 mg PO .AFTER MEALS 08/17/21 05/12/22 05/12/22 History methylnaltrexone 12 mg/0.6 mL 0.6 ml SUBCUT Q3D PRN 01/24/22 05/12/22 03/27/22 History subcutaneous syringe (Relistor) ondansetron HCl 4 mg tablet 4 mg PO Q6H PRN 01/24/22 05/12/22 05/12/22 History docusate sodium 100 mg capsule 100 mg PO BID 02/11/22 05/12/22 05/12/22 History (Colace) gabapentin 600 mg tablet 1,200 mg PO TID 02/11/22 05/12/22 05/12/22 History calcium carbonate 400 mg calcium 400 mg PO DAILY PRN 03/06/22 05/12/22 Unknown History (1,000 mg) chewable tablet (Tums Ultra) insulin lispro 100 unit/mL See Rx Instructions .ROUTE .COMPLEX 03/06/22 05/12/22 05/12/22 History subcutaneous pen (Humalog KwikPen (U-100) Insulin) pregabalin 50 mg capsule (Lyrica) 50 mg PO BID 03/06/22 05/12/22 05/12/22 History magnesium hydroxide 400 mg/5 mL 5 ml PO DAILY #355 ml 03/12/22 05/12/22 05/12/22 Rx oral suspension (Milk of Magnesia) potassium chloride 20 mEq 20 meq PO DAILY 03/28/22 05/12/22 05/12/22 History tablet,extended release imipenem-cilastatin 500 mg 1 ml IV Q6H 14 Days #1 ea 05/06/22 05/12/22 05/12/22 Rx intravenous solution heparin lock flush (porcine) 10 5 unit IV Q6H 05/12/22 05/12/22 05/12/22 History unit/mL intravenous solution lidocaine 5 % topical patch 1 patch TOPICAL Q12H 05/12/22 05/12/22 05/12/22 History metformin 1,000 mg tablet 1,000 mg PO BID 05/12/22 05/12/22 05/12/22 History miconazole nitrate 2 % vaginal 1 applic VAGINAL BID 05/12/22 05/12/22 Unknown History cream (Monistat 7) sertraline 50 mg tablet 50 mg PO DAILY 05/12/22 05/12/22 05/11/22 History sodium chloride 0.9 % (flush) 10 ml IV Q6H 05/12/22 05/12/22 05/12/22 History (Normal Saline Flush) Allergies Allergy/AdvReac Type Severity Reaction Status Date / Time No Known Allergies Allergy Verified 05/12/22 16:05 Current Medications Generic Name Dose Route Start Last Admin Trade Name Freq PRN Reason Stop Dose Admin Alprazolam 0.25 mg 05/12/22 22:44 05/13/22 21:32 Alprazolam 0.5 Mg Tablet PO 0.25 mg TID PRN Administration Anxiety Atorvastatin Calcium 40 mg 05/13/22 21:00 05/13/22 21:30 Atorvastatin 40 Mg Tablet PO 40 mg BEDTIME ELISEO Administration Docusate Sodium 100 mg 05/13/22 09:00 05/13/22 17:35 Docusate Sodium 100 Mg Capsule PO 100 mg BID ELISEO Administration Fentanyl 1 patch 05/12/22 22:44 05/13/22 00:51 Fentanyl 50 Mcg Patch TRANSDERMA 1 patch Q72H ELISEO Administration Gabapentin 1,200 mg 05/12/22 23:53 05/13/22 21:31 Gabapentin 400 Mg Capsule PO 1,200 mg TID ELISEO Administration Heparin Sodium (Porcine) 5,000 unit 05/12/22 22:44 05/14/22 06:00 Heparin 5,000 Unit/Ml Inj 1 Ml SUBCUT 5,000 unit Q8H ELISEO Administration Insulin Human Lispro 0 unit 05/13/22 08:00 05/13/22 23:16 Insulin Lispro 100 Unit/1 Ml SUBCUT Not Given WM&BEDTIME ELISEO Protocol Lactulose 20 gm 05/12/22 23:45 05/13/22 21:32 Lactulose Oral Liq 20 Gm/30 Ml Udc PO 20 gm TID ELISEO Administration Magnesium Hydroxide 5 ml 05/13/22 09:00 05/13/22 09:13 Magnesium Hydroxide 30 Ml Udc PO 5 ml DAILY ELISEO Administration Metoclopramide HCl 10 mg 05/12/22 22:44 05/13/22 23:08 Metoclopramide 10 Mg Tablet PO 10 mg Q6H PRN Administration nausea and vomiting Miconazole Nitrate 1 appful 05/13/22 09:00 05/13/22 17:37 Miconazole 2% Vaginal Cream 45 Gm VAGINAL 1 appful BID ELISEO Administration Morphine Sulfate 5 mg 05/12/22 23:04 05/13/22 04:53 Morphine 10 Mg/0.5 Ml Oral Liq Ud PO 5 mg Q4H PRN Administration Pain Ondansetron HCl 4 mg 05/12/22 19:42 05/13/22 21:34 Ondansetron 2 Mg/Ml Sdv 2 Ml IVP 4 mg Q6H PRN Administration NAUSEA AND VOMITING Pantoprazole Sodium 40 mg 05/13/22 09:00 05/13/22 09:[address] 40 Mg Tablet PO 40 mg DAILY ELISEO Administration Phenazopyridine HCl 100 mg 05/13/22 08:00 05/13/22 17:35 Phenazopyridine 100 Mg Tablet PO 100 mg TIDPC ELISEO Administration Polyethylene Glycol 17 gm 05/12/22 22:44 05/13/22 10:18 Polyethylene Glycol 3350 Pkt 17 Gm PO 17 gm DAILY PRN Administration constipation Pregabalin 50 mg 05/12/22 23:55 05/13/22 17:35 Pregabalin 50 Mg Capsule PO 50 mg BID ELISEO Administration Senna/Docusate Sodium 2 tab 05/13/22 08:00 05/13/22 21:30 Sennosides-Docusate Tablet PO 2 tab BID@,20 ELISEO Administration Sertraline HCl 50 mg 05/13/22 09:00 05/13/22 09:12 Sertraline 50 Mg Tablet PO 50 mg DAILY ELISEO Administration Simethicone 80 mg 05/13/22 08:00 05/13/22 17:34 Simethicone 80 Mg Chew PO 80 mg TIDPC ELISEO Administration Tizanidine HCl 4 mg 05/13/22 00:28 05/13/22 21:32 Tizanidine 4 Mg Tablet PO 4 mg TID@08,14,20 PRN Administration unknown PFSH Acute PFSH: Medical History (Updated 05/14/22 @ 10:41 by Hilton Culp MD) Chronic indwelling Dumont catheter Hydronephrosis Neurogenic bladder Perforated abdominal viscus Condition resolved Post-traumatic quadriplegia PVD (peripheral vascular disease) Quadriplegia Recurrent sepsis due to urinary tract infection Surgical History H/O bladder repair surgery H/O cystoscopy H/O partial cystectomy H/O Spinal surgery History of hysterectomy History of partial gastrectomy Family History Other CAD (coronary artery disease) Diabetes Hypertension Social History Alcohol intake: never Household members: spouse Housing: House Marital status: Current occupational status: disabled Vitals/I&O/Wt Last Vital Signs Temp 98.3 F 05/14/22 07:14 Pulse 78 05/14/22 07:14 Resp 18 05/14/22 07:14 BP 90/64 05/14/22 07:14 Pulse Ox 96 05/14/22 07:14 05/13/22 05/14/22 05/14/22 22:59 06:59 14:59 Intake Total 440 / 540 100 / 640 240 / 240 Output Total 350 / 350 750 / 1100 Balance 90 / 190 -650 / -460 240 / 240 Weight last 48 hrs Weight 147 lb 1.6 oz Weight 144 lb 11.2 oz Weight 144 lb Weight 145 lb Physical Exam Const: COMMON NORMALS: no acute distress and patient oriented x3 HENMT: COMMON NORMALS: normocephalic and atraumatic HEAD & SCALP: normocephalic and atraumatic Eye: COMMON NORMALS: negative for no scleral icterus Lymph: OTHER: No palpable lymphadenopathy Chest: OTHER: Normal chest movement Resp: OTHER: No audible wheezing. No labored respiration Cardio: COMMON NORMALS: regular rate RATE: regular rate GI: COMMON NORMALS: Soft to palpation PALPATION: Yes Soft to palpation : OTHER: Suprapubic tube is in good position. Draining clear yellow urine. Neuro: COMMON NORMALS: patient oriented x3 Skin: OTHER: Interesting abdominal tattoo Data : 05/13/22 04:56 05/14/22 04:57 Micro: Microbiology 05/12/22 17:40 Urine Culture - Preliminary Urine,Clean Catch Yeast species A&P Assessment and plan (1) Pyelonephritis: Status: Acute (2) Neurogenic bladder: Status: Acute (3) Suprapubic catheter: Status: Acute (4) Urinary incontinence: Status: Acute Plan See HPI Coding Level of Care Code Acute Roll Hand for Chg Fwd Diagnoses Pyelonephritis N12 Neurogenic bladder N31.9 Suprapubic catheter Z93.59 Urinary incontinence R32
[2022-05-14] MEDS: ondansetron 2 mg/ML SDV 2 mL 4 MG IVP (10:27)
[2022-05-14] MEDS: lactulose oral liq 20 gm/30 mL UDC PO ×3 (10:32→21:17)
[2022-05-14] MEDS: gabapentin 400 mg Capsule 1200 MG PO ×3 (10:36→21:16)
[2022-05-14] MEDS: magnesium hydroxide 30 mL UDC 5 ML PO (10:39)
[2022-05-14] MEDS: sertraline 50 mg Tablet PO (10:41)
[2022-05-14] MEDS: ALPRAZolam 0.5 mg Tablet 0.25 MG PO ×2 (10:41→21:25)
[2022-05-14] MEDS: pregabalin 50 mg Capsule PO ×2 (10:41→18:53)
[2022-05-14] MEDS: phenazopyridine 100 mg Tablet PO ×3 (10:43→18:56)
[2022-05-14] MEDS: sennosides-docusate Tablet 2 TAB PO ×2 (10:43→21:16)
[2022-05-14] MEDS: docusate sodium 100 mg Capsule PO ×2 (10:43→18:53)
[2022-05-14] MEDS: miconazole 2% vaginal cream 45 gm 1 APPFUL VAGINAL ×2 (10:44→18:56)
[2022-05-14] MEDS: pantoprazole DR 40 mg Tablet PO (10:44)
[2022-05-14] MEDS: simethicone 80 mg Chew PO ×3 (10:44→18:56)
[2022-05-14 11:14] LABS: Glucose Point of Care 117 mg/dL (70-110)
[2022-05-14] MEDS: metoclopramide 10 mg Tablet PO (13:55)
[2022-05-14 16:48] LABS: Glucose Point of Care 145 mg/dL (70-110)
[2022-05-14] MEDS: insulin lispro 100 unit/1 mL SUBCUT (18:54)
[2022-05-14 20:56] LABS: Glucose Point of Care 117 mg/dL (70-110)
[2022-05-14] MEDS: atorvastatin 40 mg Tablet PO (21:16)
[2022-05-14] MEDS: ondansetron 4 MG Tablet PO (21:25)
[2022-05-14] MEDS: tizanidine 4 mg Tablet PO (21:25)
[2022-05-15] VITALS (9 sets, daily range): BP systolic 90–105; BP diastolic 56–78; PULSE 72–91; RESP 16–18; TEMP 36.3–36.9; O2SAT 91–95
[2022-05-15] MEDS: heparin 5,000 unit/mL INJ 1 mL 5000 UNIT SUBCUT ×3 (06:28→22:19)
[2022-05-15 06:32] LABS: Glucose Point of Care 108 mg/dL (70-110)
[2022-05-15] MEDS: simethicone 80 mg Chew PO ×3 (09:28→18:35)
[2022-05-15] MEDS: phenazopyridine 100 mg Tablet PO ×3 (09:29→18:35)
[2022-05-15] MEDS: ALPRAZolam 0.5 mg Tablet 0.25 MG PO ×3 (09:29→20:45)
[2022-05-15] MEDS: sennosides-docusate Tablet 2 TAB PO ×2 (09:29→20:42)
[2022-05-15] MEDS: ondansetron 2 mg/ML SDV 2 mL 4 MG IVP (09:30)
[2022-05-15] MEDS: docusate sodium 100 mg Capsule PO ×2 (09:36→18:35)
[2022-05-15] MEDS: pregabalin 50 mg Capsule PO ×2 (09:36→18:35)
[2022-05-15] MEDS: pantoprazole DR 40 mg Tablet PO (09:36)
[2022-05-15] MEDS: tizanidine 4 mg Tablet PO ×3 (09:36→20:45)
[2022-05-15] MEDS: gabapentin 400 mg Capsule 1200 MG PO ×3 (09:37→20:43)
[2022-05-15] MEDS: magnesium hydroxide 30 mL UDC 5 ML PO (09:37)
[2022-05-15] MEDS: lactulose oral liq 20 gm/30 mL UDC PO ×3 (09:37→20:44)
[2022-05-15] MEDS: sertraline 50 mg Tablet PO (09:37)
[2022-05-15 11:27] LABS: Glucose Point of Care 151 mg/dL (70-110)
[2022-05-15] MEDS: insulin lispro 100 unit/1 mL SUBCUT ×2 (12:12→18:35)
[2022-05-15] MEDS: miconazole 2% vaginal cream 45 gm 1 APPFUL VAGINAL ×2 (12:13→18:35)
--- NOTE | 2022-05-15 14:17 | P.PN_ITS ---
Subjective Subjective: Patient had bowel movement. Feels a lot better. Tolerating GI soft diet. Seen by Dr. Culp. Plan in place for hospital follow-up after discharge. Vitals/I&O/Wt Last Vital Signs Temp 98.0 F 05/15/22 12:00 Pulse 86 05/15/22 12:00 Resp 16 05/15/22 12:00 BP 105/77 05/15/22 12:00 Pulse Ox 95 05/15/22 12:00 05/14/22 05/15/22 05/15/22 22:59 06:59 14:59 Intake Total 320 / 1020 1020 / 2040 Output Total 800 / 800 Balance 320 / 1020 220 / 1240 Weight last 48 hrs Weight 67.857 kg Weight 66.723 kg Weight 65.635 kg Physical Exam Narrative: General: Alert oriented x3, patient seen laying in bed appearing comfortable HEENT: Normocephalic, atraumatic, EOMI, breathing normally no acute respiratory distress. Cardio: Regular rate rhythm, normal S1-S2, no murmurs Respiratory: No wheezes no rhonchi noted, clear to auscultation bilaterally. GI: Abdomen soft, no distention, no guarding or rigidity, nontender to palpation Extremities: Trace lower extremity edema, trace upper extremity edema bilaterally, quadriplegia Stage I decubitus ulcer present on back. Data : 05/13/22 04:56 05/14/22 04:57 A&P Assessment and plan (1) Chronic indwelling Dumont catheter: Status: Acute (2) Nausea: Status: Acute (3) Bloating: Status: Chronic (4) Hydronephrosis: Status: Acute Qualifiers: Hydronephrosis type: other Qualified Code(s): N13.39 - Other hydronephrosis (5) UTI (urinary tract infection): Status: Acute (6) History of ESBL E. coli infection: Status: Acute (7) Constipation: Status: Acute (8) Pyelonephritis: Status: Acute (9) Suprapubic catheter: Status: Acute (10) Dysuria: Status: Acute (11) Neurogenic bladder: Status: Acute Plan #Right pyelonephritis #Acute on chronic UTI, history of ESBL #Decubitus ulcer present on admission, stage 1 #Hx of Chronic right lower quadrant pain #Quadriparesis #Severe constipation #Diabetes mellitus type 2, insulin-dependent #Hx of recent suprapubic catheter - Continue primaxin x 14 days for pyelo. Was discharged on 14 days of primaxin p revious admission. Will complete total of 14 days. [address]ICC already in place. Day 14 to complete on 05/15/2022. Antibiotics started last admission on May 01, 2022 - Continue on bowel regimen - Continue gi soft diet today. - Reglan for nausea, zofran alternating. ? Lovenox for DVT prophylaxis ? D-dimer elevated.CTA ruled out PE. Shortness of breath improved. -Lantus 10 daily plus sliding scale - SUprapubic catheter maintanance - Dr. Culp consulted by ER. Recommended to keep appointment scheduled at [facility]. Encouraged her to hold off on consideration of urethral closure until she has a tube size that is adequate for long-term management of the bladder.? My expectation is when she gets up to a 20+ [place] suprapubic tube the resistance through that tube will be significantly lowered which would likely allow spontaneous coaptation of the urethra and less chance of leaking per urethra. ? She was comfortable with that plan. - Discussed with Dr. Culp, will complete 14 days total of primaxin from last hospital stay. - UCx repeated this current admission positive for yeast but negative for bacteria. - Clinically patient better and no lower complaining of abdominal pain and dysuria. PLan to send back to alf when able. Full COde Attestations Medical Necessity Statement*: Medically clear for discharge. Awaiting insurance authorization to go back to alf. 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 coli infection Z86.19 Constipation K59.00 Pyelonephritis N12 Suprapubic catheter Z93.59 Dysuria R30.0 Neurogenic bladder N31.9
[2022-05-15] MEDS: metoclopramide 10 mg Tablet PO (15:40)
[2022-05-15 17:14] LABS: SARS Covid-2 Antigen Negative (Negative)
[2022-05-15 18:02] LABS: Glucose Point of Care 149 mg/dL (70-110)
[2022-05-15] MEDS: atorvastatin 40 mg Tablet PO (20:43)
[2022-05-15] MEDS: ondansetron 4 MG Tablet PO (20:43)
[2022-05-15 21:03] LABS: Glucose Point of Care 137 mg/dL (70-110)
[2022-05-15] MEDS: fentaNYL 50 mcg Patch 1 PATCH TRANSDERMA (22:19)
[2022-05-16] VITALS (7 sets, daily range): BP systolic 92–104; BP diastolic 62–72; PULSE 70–82; RESP 16–17; TEMP 36.5–37; O2SAT 92–94
[2022-05-16] MEDS: heparin 5,000 unit/mL INJ 1 mL 5000 UNIT SUBCUT ×2 (06:21→16:42)
[2022-05-16 06:24] LABS: Glucose Point of Care 118 mg/dL (70-110)
[2022-05-16] MEDS: polyethylene glycol 3350 Pkt 17 gm PO (09:01)
[2022-05-16] MEDS: ondansetron 2 mg/ML SDV 2 mL 4 MG IVP (09:01)
[2022-05-16] MEDS: phenazopyridine 100 mg Tablet PO ×2 (09:11→13:14)
[2022-05-16] MEDS: sennosides-docusate Tablet 2 TAB PO (09:12)
[2022-05-16] MEDS: simethicone 80 mg Chew PO ×2 (09:12→13:14)
[2022-05-16] MEDS: docusate sodium 100 mg Capsule PO (09:13)
[2022-05-16] MEDS: sertraline 50 mg Tablet PO (09:15)
[2022-05-16] MEDS: ALPRAZolam 0.5 mg Tablet 0.25 MG PO ×2 (09:16→16:43)
[2022-05-16] MEDS: gabapentin 400 mg Capsule 1200 MG PO ×2 (09:16→16:42)
[2022-05-16] MEDS: tizanidine 4 mg Tablet PO ×2 (09:17→16:43)
[2022-05-16] MEDS: pantoprazole DR 40 mg Tablet PO (09:17)
[2022-05-16] MEDS: pregabalin 50 mg Capsule PO (09:18)
[2022-05-16] MEDS: lactulose oral liq 20 gm/30 mL UDC PO ×2 (09:18→16:43)
[2022-05-16] MEDS: magnesium hydroxide 30 mL UDC 5 ML PO (09:18)
[2022-05-16] MEDS: miconazole 2% vaginal cream 45 gm 1 APPFUL VAGINAL (09:19)
--- NOTE | 2022-05-16 10:41 | PM.DCS ---
Discharge Providers Date of Admission: 05/12/22 22:24 Date of Discharge: May 16, 2022 Attending Provider at Admission: Simon Huitron Attending Provider at Discharge: Gwen Robins MD Diagnoses at Discharge Discharge Diagnosis (1) Chronic indwelling Dumont catheter: Status: Acute (2) Nausea: Status: Acute Permanent problem details: Improved (3) Bloating: Status: Chronic (4) Hydronephrosis: Status: Acute Qualifiers: Hydronephrosis type: other Qualified Code(s): N13.39 - Other hydronephrosis (5) UTI (urinary tract infection): Status: Acute (6) History of ESBL E. coli infection: Status: Acute (7) Constipation: Status: Acute (8) Pyelonephritis: Status: Acute (9) Suprapubic catheter: Status: Acute (10) Dysuria: Status: Acute (11) Neurogenic bladder: Status: Acute Reason for Visit Reason for Visit: GENERALIZED WEAKNESS Brief History: Very pleasant 47-year-old lady with quadriplegia with suprapubic catheter, with recent admission for complicated urinary infection with ESBL E. coli, discharged 05/06, returns to the hospital due to urinary symptoms with lower abdominal discomfort, dysuria with urethral urine output, pain around suprapubic catheter insertion site.? Appears there was some accidental pulling of the [facility]ic catheter [facility] the [facility].? No leakage is reported around suprapubic catheter. CT abdomen pelvis obtained in ER shows marked thickening and enhancement of the wall of the renal pelvis and ureters concerning for urinary tract infection.? Delayed right nephrogram and streaky hypodensity in the cortex of the right kidney with right paranephric fat stranding concerning for right pyelonephritis.? Suprapubic catheter in the bladder.? Unchanged cystic lesion in the right adnexa/pelvis inseparable right ovarian cyst measuring 2.8 cm in size.? Unchanged left adrenal adenoma. Right PICC line in place since prior hospitalization at [facility]. Hospital Course Hospital Course Patient was admitted for complaint of pain around suprapubic site and dysuria with urethral urine output. Her Dumont catheter was removed on the sixth and replaced with a suprapubic catheter at [facility]. She was also admitted to our hospital previously on 7/7 and diagnosed with right pyelonephritis for which she was completing Primaxin for total of 14 days. Last date 05/16 2022. Urine culture obtained again this visit showed yeast but no bacteria. Patient was also seen by Dr. Culp this day. Suprapubic catheter was reinserted. She is advised to keep her appointment with [facility] that is coming up soon. It was decided to let her complete her existing 14 days of Primaxin course that was started previous day. We may repeat a CT abdomen in 2 weeks time to ensure resolution of pyelonephritis. She does have chronic right-sided pain which is still present. Also during this hospital stay she had constipation and was given methylnaltrexone shot after which she was able to have a bowel movement. She was tolerating a diet and was on GI soft at time of discharge. He said she felt back in good enough to go back to the [facility]. She has been afebrile during hospital stay and has had no elevation in her white count. Off note at admission CTA was done to rule out PE. CT abdomen pelvis was also done which showed fat stranding around right kidney indicating pyelonephritis consistent with her diagnosis from a week ago. Clinically patient is doing well and will be sent back to [facility] today. Discussed all develop with the patient and she is in agreement. She will follow-up with primary care doctor, urology as an outpatient. I did advise her that if she has a new temperature or worsening symptoms or development of new symptoms she should return to the hospital. Physical Exam Narrative: General: Alert oriented x3, patient seen laying in bed appearing comfortable HEENT: Normocephalic, atraumatic, EOMI, breathing normally no acute respiratory distress. Cardio: Regular rate rhythm, normal S1-S2, no murmurs Respiratory: No wheezes no rhonchi noted, clear to auscultation bilaterally. GI: Abdomen soft, no distention, no guarding or rigidity, nontender to palpation Extremities: Trace lower extremity edema, trace upper extremity edema bilaterally, quadriplegia Stage I decubitus ulcer present on back. Discharge Data Studies Completed and Pending Completed Studies During Hospitalization Category Date Time Status CT abdomen pelvis w con* [id number] Urgent Cat Scan 05/12/22 16:31 Completed Pending at discharge Category Date Time Status Urine Culture Stat Lab 05/12/22 17:40 Results Radiology Impressions Abdomen/Pelvis CT 05/12/22 16:31 IMPRESSION: 1. There is marked thickening and enhancement of the wall of the renal pelves and ureters concerning for urinary tract infection. 2. There is also a delayed right nephrogram and streaky hypodensity in the cortex of the right kidney with right perinephric fat stranding concerning for right pyelonephritis. 3. Suprapubic catheter in the bladder. 4. Unchanged cystic lesion in the right adnexa/pelvis is a probable right ovarian cyst measuring 3.8 cm in size. 5. Unchanged left adrenal adenoma. Laboratory Results WBC 6.2 10^3/uL (4.0-10.0) 05/13/22 04:56 RBC 5.05 10^6/uL (4.1-5.3) 05/13/22 04:56 Hgb 14.3 g/dL (11.5-15.3) 05/13/22 04:56 Hct 43.7 % (37.0-47.0) 05/13/22 04:56 MCV 86.5 fl (81-99) 05/13/22 04:56 MCH 28.3 pg (28.0-34.0) 05/13/22 04:56 MCHC 32.7 g/dL (30.0-36.0) 05/13/22 04:56 RDW 14.4 % (12.1-15.1) 05/13/22 04:56 Plt Count 377 10^3/cmm (130-400) 05/13/22 04:56 MPV 9.8 fL (7.4-10.4) 05/13/22 04:56 Neut % (Auto) 63.2 % 05/13/22 04:56 Lymph % (Auto) 25.2 % 05/13/22 04:56 Park % (Auto) 7.2 % 05/13/22 04:56 Eos % (Auto) 2.6 % 05/13/22 04:56 Baso % (Auto) 0.8 % 05/13/22 04:56 Neut # (Auto) 3.93 10^3/uL (1.8-7.7) 05/13/22 04:56 Lymph # (Auto) 1.6 10^3/uL (0.8-4.8) 05/13/22 04:56 Park # (Auto) 0.5 10^3/uL (0.2-0.9) 05/13/22 04:56 Eos # (Auto) 0.2 10^3/uL (0.0-0.8) 05/13/22 04:56 Baso # (Auto) 0.1 10^3/uL (0.0-0.1) 05/13/22 04:56 Nucleated RBC % (auto) 0 % 05/13/22 04:56 Nucleated RBCs # 0.0 /100WBC 05/13/22 04:56 Sodium 133 mmol/L (136-145) L 05/14/22 04:57 Potassium 4.1 mmol/L (3.5-5.1) 05/14/22 04:57 Chloride 97 mmol/L (98-107) L 05/14/22 04:57 Carbon Dioxide 24 mmol/L (22-29) 05/14/22 04:57 Anion Gap 16.1 (5-19) 05/14/22 04:57 BUN 12 mg/dL (6-20) 05/14/22 04:57 Creatinine 0.6 mg/dL (0.5-0.9) 05/14/22 04:57 GFR Calculation 107.2 mL/min (90-130) 05/14/22 04:57 Glucose 106 mg/dL (65-115) 05/14/22 04:57 POC Glucose 118 mg/dL (70-110) H 05/16/22 06:19 Calculated Osmolality 276 mOsm/kg (285-295) L 05/14/22 04:57 Calcium 9.2 mg/dL (8.5-10.5) 05/14/22 04:57 Total Bilirubin 0.2 mg/dL (0.15-1.2) 05/13/22 04:56 AST 17 U/L (0-32) 05/13/22 04:56 ALT 9 U/L (0-33) 05/13/22 04:56 Alkaline Phosphatase 88 IU/L (35-105) 05/13/22 04:56 Total Protein 7.9 g/dL (6.6-8.7) 05/13/22 04:56 Albumin 3.9 g/dL (3.5-5.2) 05/13/22 04:56 Globulin 4.0 g/dL (1.3-4.6) 05/13/22 04:56 Lipase 20 U/L (13-60) 05/12/22 16:42 Urine Color Colorless (Yellow) 05/12/22 17:40 Urine Appearance Hazy (CLEAR) A 05/12/22 17:40 Urine pH 7 (5-7) 05/12/22 17:40 Ur Specific Arthur 1.005 (1.005-1.030) 05/12/22 17:40 Urine Protein Neg (Negative) 05/12/22 17:40 Urine Glucose (UA) Norm (Normal) 05/12/22 17:40 Urine Ketones Negative (Negative) 05/12/22 17:40 Urine Blood Neg (Negative) 05/12/22 17:40 Urine Nitrate Negative (Negative) 05/12/22 17:40 Urine Bilirubin Neg (Negative) 05/12/22 17:40 Urine Urobilinogen Norm mg/dL (Negative) 05/12/22 17:40 Ur Leukocyte Esterase 2+ (Negative) H 05/12/22 17:40 Urine RBC 0-4 /hpf (0-2) H 05/12/22 17:40 Urine WBC 25-40 /hpf (0-5) H 05/12/22 17:40 Ur Squamous Epith Cells 10-15 /hpf (0-5) H 05/12/22 17:40 Amorphous Sediment Not Reportable 05/12/22 17:40 Urine Bacteria 1+ /hpf (NONE) H 05/12/22 17:40 Urine Yeast 1+ /hpf H 05/12/22 17:40 SARS-CoV-2 Ag (Rapid) Negative (Negative) 05/15/22 15:00 Vitals Last Vital Signs Temp 97.9 F 05/16/22 04:00 Pulse 74 05/16/22 08:00 Resp 16 05/16/22 08:00 BP 96/69 05/16/22 08:00 Pulse Ox 94 05/16/22 08:00 Discharge Plan Discharge Patient Disposition: Xfer SNF Condition: Stable Prescriptions: Continued ascorbic acid (vitamin C) [Vitamin C] 1,000 mg Tablet 1,000 mg PO BID@08,20 0RF methenamine hippurate 1 gram Tablet 1 g PO BID@08,20 0RF pantoprazole 40 mg Tablet,Delayed Release (Dr/Ec) 40 mg PO DAILY 0RF lactulose 10 gram/15 mL (15 mL) Solution 30 ml PO TID 0RF sennosides-docusate sodium [Senna Plus] 8.6-50 mg Tablet 2 tab PO BID@08,20 0RF metoclopramide HCl 10 mg tablet 10 mg PO Q6H PRN (Reason: nausea and vomiting) Qty: 20 0RF pravastatin 40 mg Tablet 40 mg PO BEDTIME 0RF naloxone 0.4 mg/mL Solution 0.4 mg IM Q2M PRN (Reason: overdose) 0RF acetaminophen 500 mg Tablet 500 mg PO Q6H PRN (Reason: Pain) 0RF simethicone 80 mg Tablet,Chewable 80 mg PO .AFTER MEALS 0RF polyethylene glycol 3350 [Miralax] 17 gram/dose powder 17 g PO DAILY PRN (Reason: constipation) 0RF tizanidine 4 mg Tablet 4 mg PO TID@08,14,20 PRN (Reason: unknown) 0RF fentanyl 50 mcg/hr Patch 72 Hour 1 patch TRANSDERMAL Q72H Qty: 5 0RF morphine concentrate 100 mg/5 mL (20 mg/mL) solution 5 mg PO Q4H PRN (Reason: Pain) Qty: 30 0RF alprazolam [Xanax] 0.25 mg Tablet 0.25 mg PO TID PRN (Reason: Anxiety) Qty: 10 0RF ondansetron HCl 4 mg Tablet 4 mg PO Q6H PRN (Reason: Nausea) 0RF Relistor 12 mg/0.6 mL Syringe 0.6 ml SUBCUT Q3D PRN (Reason: Constipation) 0RF gabapentin 600 mg tablet 1,200 mg PO TID 0RF docusate sodium [Colace] 100 mg Capsule 100 mg PO BID 0RF insulin lispro [Humalog KwikPen Insulin] 100 unit/mL Insulin Pen See Rx Instructions .ROUTE .COMPLEX 0RF Rx Instructions: SLIDING SCALE- BLOOD SUGAR 125-150 GIVE 2 UNITS, 151-200 GIVE 4 UNITS, 201-250 GIVE 6 UNITS, 251-300 GIVE 8 UNITS, 301-350 GIVE 10 UNITS, 351-400 GIVE 12 UNITS pregabalin [Lyrica] 50 mg Capsule 50 mg PO BID 0RF calcium carbonate [Tums Ultra] 400 mg calcium (1,000 mg) Tablet,Chewable 400 mg PO DAILY PRN (Reason: Heartburn) 0RF magnesium hydroxide [Milk of Magnesia] 400 mg/5 mL suspension 5 ml PO DAILY Qty: 355 0RF potassium chloride 20 mEq Tablet Extended Release 20 meq PO DAILY 0RF Monistat 7 2 % Cream 1 applic VAGINAL BID 0RF heparin lock flush (porcine) 10 unit/mL Solution 5 unit IV Q6H 0RF Rx Instructions: administer after IV drug administration as part of [facility] protocol metformin 1,000 mg Tablet 1,000 mg PO BID 0RF lidocaine 5 % Adhesive Patch,Medicated 1 patch TOPICAL Q12H 0RF Rx Instructions: leave on most painful area for up to 12 hrs sertraline 50 mg Tablet 50 mg PO DAILY 0RF Normal Saline Flush Syringe 10 ml IV Q6H 0RF Rx Instructions: administer before and after IV drug administration as part of [facility] protocol Discontinued imipenem-cilastatin 500 mg recon soln 1 ml IV Q6H 14 Days Qty: 1 0RF Rx Instructions: administer over 40-60 mins Discharge Orders: Discharge Order (Routine); Ordered 05/16/22 Ordered By: Gwen Robins Other Ambulatory Orders: CT abdomen pelvis wo con [id number] (Routine) Timeframe: 1 Week Facility: [facility] - Location: Radiology [facility] Ordered By: Gwen Robins Referrals: [facility] [Outside] Hilton Culp MD [Physician] - 1 week Discharge Diet: GI Soft Discharge Activity: Resume usual activity Patient Instructions: Urinary Tract Infection in Women (DC), Pyelonephritis Activity Restrictions/Additional Instructions: Please follow up with [facility] as previously scheduled. Please follow up with Dr. Culp and your primary care doctor. Please return to ER if you have a fever, worsening pain, or any new symptoms develop including and not limited to sweating. Discharge Attestations Time Spent in Discharge Care*: greater than 30 min Status at Discharge: Cognitive status at discharge: cognitively intact, Behavioral status at discharge: cooperative, Quality Metrics Clinical Quality Measures [ No reported AMI, CVA or VTE this stay] Coding Level of Care Code Acute Chg FW DC note Diagnoses Chronic indwelling Dumont catheter Z96.0 Nausea R11.0 Bloating R14.0 Hydronephrosis N13.39 Hydronephrosis type: other UTI (urinary tract infection) N39.0 History of ESBL E. coli infection Z86.19 Constipation K59.00 Pyelonephritis N12 Suprapubic catheter Z93.59 Dysuria R30.0 Neurogenic bladder N31.9
[2022-05-16 11:56] LABS: Glucose Point of Care 135 mg/dL (70-110)
[2022-05-16] MEDS: fluconazole 100 mg Tablet 400 MG PO (16:42)
[2022-05-16 17:06] LABS: Glucose Point of Care 174 mg/dL (70-110)
--- NOTE | 2022-05-16 17:48 | PC.NURSE ---
PICC line removed. PICC line intact, patient tolerated well. Attempted to call report to [facility]. Waited on hold for 7 minutes and was disconnected. Attempted to call two more times. No answer. Note sent with discharge instructions. Patient transported via EMS back to [facility].
--- NOTE | 2022-05-16 18:07 | PC.NURSE ---
Patient discharged via EMS. Attempted to call report and waited over 8 minutes on hold, disconnected three times. PICC line was not removed as EMS had left with patient prior to nurse finishing up with attempts to call report to [facility].
== END 2022-05-16 18:10 | disposition skilled nursing facility (03) ==
LOC: ER 20:05 → MEDSURG 23:57
PROVIDERS: Admitting Provider Internal Medicine; Emergency Provider Emergency Medicine; Visit Provider Internal Medicine
DX: A41.9 Sepsis, unspecified organism (principal); R30.0 Dysuria; N12 Tubulo-interstitial nephritis, not specified as acute or chronic; Z96.0 Presence of urogenital implants; R11.0 Nausea; R14.0 Abdominal distension (gaseous); N13.39 Other hydronephrosis; N39.0 Urinary tract infection, site not specified; Z86.19 Personal history of other infectious and parasitic diseases; K59.00 Constipation, unspecified; Z93.59 Other cystostomy status; N31.9 Neuromuscular dysfunction of bladder, unspecified; E11.9 Type 2 diabetes mellitus without complications; Z79.4 Long term (current) use of insulin
CPT/HCPCS: 36415; 36416; 36569; 74177; 80048; 80053; 81001; 82962; 83690; 85025; 87086; 87106; 87426; 96365; 96367; 96372; 96375; 99285; G0378; J0743; J1170; J1644; J1815; J1940; J2270; J2405; J7030; J8597; Q0162; Q9967

== ENCOUNTER 2022-05-22 11:11 | Inpatient (IN) | payer MEDICARE, MEDICAID, SELFPAY ==
[2022-05-22] VITALS (17 sets, daily range): BP systolic 93–107; BP diastolic 58–86; PULSE 70–91; RESP 16–22; TEMP 36.5–36.9; O2SAT 89–100; BMI 24.9
[2022-05-22 11:25] LABS: Glucose Point of Care 166 mg/dL (70-110)
--- NOTE | 2022-05-22 11:34 | W.ED.GENADLT ---
HPI - General Adult General: Chief complaint: General Medical Stated complaint: HALLUCINATIONS Time Seen by Provider: 05/22/22 11:28 History of Present Illness: 47-year-old female with history of quadriplegia, recurrent UTIs now with suprapubic catheter dependent presenting to emergency room with concerns of hallucinations. Patient tells me that she has been getting IV antibiotics through her PICC line on her right arm for recurrent UTI and pyelonephritis. Most recently, patient tells me that she follow-up with Dr. Culp and is planning to have a revision of her urethra at [facility]. Patient denies any fever/chills however over the last few days has noticed hallucinations and things moving. Earlier today, patient tells me that she is seeing things that other people are not seeing. Patient denies hearing voices, suicidal ideation or homicidal ideation. Patient also reports shortness of breath for the last week. Reports mild cough and chills. Patient also reports diarrhea. Denies any abdominal pain currently, nausea/vomiting, chest pain or palpitation. Onset 1 week ago Duration:1 week Location:home Severity:moderate Associated symptoms: Deny chest pain, dyspnea, nausea, rash, palpitations or vomiting Review of Systems Const: Denies: fever(s) or chills Eyes: Denies: change in vision ENMT: Denies: mouth pain Card: Denies: chest pain or palpitations Resp: Denies: dyspnea or non-productive cough GI: Denies: abdominal pain, nausea, vomiting or diarrhea : Denies: dysuria Musc: Denies: extremity pain Skin/Breast: Denies: rash or new lesions Neuro: Denies: weakness in extremities Psych: Reports: other (Normal mood) Raul/Lymph: Denies: easy bruising PFS ED PFSH: Medical History Chronic indwelling Dumont catheter Hydronephrosis Neurogenic bladder Perforated abdominal viscus Condition resolved Post-traumatic quadriplegia PVD (peripheral vascular disease) Quadriplegia Recurrent sepsis due to urinary tract infection UTI (urinary tract infection) Surgical History H/O bladder repair surgery H/O cystoscopy H/O partial cystectomy H/O Spinal surgery History of hysterectomy History of partial gastrectomy Family History Other CAD (coronary artery disease) Diabetes Hypertension Social History Alcohol intake: never Household members: spouse Housing: House Marital status: Current occupational status: disabled Physical Exam Const: COMMON NORMALS: alert HENMT: COMMON NORMALS: atraumatic HEAD & SCALP: atraumatic MOUTH: moist mucous membranes not abnormal Eye: COMMON NORMALS: EOMs intact bilaterally and conjunctivae normal CONJUNCTIVA: Yes conjunctivae normal Neck/C-Spine: COMMON NORMALS: full ROM and supple Resp: COMMON NORMALS: normal respiratory effort and clear to auscultation bilaterally AUSCULTATION: clear to auscultation bilaterally Cardio: COMMON NORMALS: regular rate RATE: regular rate GI: COMMON NORMALS: Soft to palpation and non-tender PALPATION: Yes Soft to palpation Extremity: COMMON NORMALS: full ROM Neuro: SENSORIUM/ORIENTATION: Yes alert MOTOR EXAM: No Abnormal motor strength present and Other motor observations present (no focal motor deficits) Psych: COMMON NORMALS: speech normal SPEECH: Yes normal speech MOOD & AFFECT: Yes euthymic mood Course Vital Signs: Vital signs: Vital Signs Temperature 98.5 F 05/22/22 11:23 Pulse Rate 86 05/22/22 15:00 Respiratory Rate 16 05/22/22 12:50 Blood Pressure 107/86 05/22/22 15:00 Pulse Oximetry 96 05/22/22 15:00 Oxygen Delivery Me thod 05/22/22 15:00 Oxygen Flow Rate 5 05/22/22 15:00 [facility] - General Adult Medical Decision Making 47-year-old female with history of quadriplegia, recurrent UTIs now with suprapubic catheter dependent presenting to emergency room with concerns of hallucinations. Patient was noted to be hypoxemic on arrival to 85 to 87% on room air. Patient required 5L oxygen to achieve O2 sat between 95%. Patient's COVID antigen negative. Lab work-up showed white count 5.9. X-ray showed appears to be clear. proBNP troponin within normal limit. D-dimer appears to be elevated but patient has chronically elevated D-dimer. CTA did not show any large PE. Patient will be admitted to hospital for hypoxemia work-up. In addition, patient's right sided PICC line has had nabil-PICC line leakage. Patient will need new PICC line placement. UA is consistent with UTI and patient has a chronic history of UTI. Patient has multidrug resistant UTI in the past. She will received vancomycin and meropenem. At the present time, it is unclear what is the source of hypoxemia. Disposition: admission Lab Data : 05/22/22 14:21 05/22/22 13:17 Radiology Impressions Chest X-Ray 05/22/22 11:51 IMPRESSION: 1. Mild plaque atelectasis at the right hilum. No acute cardiopulmonary finding. 2. Right-sided PICC line in place unchanged. Exact location is difficult to determine. Laboratory Results WBC 5.9 10^3/uL (4.0-10.0) 05/22/22 14:21 Corrected WBC Cancelled 05/22/22 13:17 RBC 4.01 10^6/uL (4.1-5.3) L 05/22/22 14:21 Hgb 11.6 g/dL (11.5-15.3) 05/22/22 14:21 Hct 38.4 % (37.0-47.0) 05/22/22 14:21 MCV 95.8 fl (81-99) 05/22/22 14:21 MCH 28.9 pg (28.0-34.0) 05/22/22 14:21 MCHC 30.2 g/dL (30.0-36.0) 05/22/22 14:21 RDW 14.8 % (12.1-15.1) 05/22/22 14:21 Plt Count 203 10^3/cmm (130-400) 05/22/22 14:21 MPV 11.1 fL (7.4-10.4) H 05/22/22 14:21 Gran % Cancelled 05/22/22 13:17 Neut % (Auto) 60.6 % 05/22/22 14:21 Lymph % (Auto) 25.5 % 05/22/22 14:21 [place] % (Auto) 10.4 % 05/22/22 14:21 Eos % (Auto) 2.5 % 05/22/22 14:21 Baso % (Auto) 0.5 % 05/22/22 14:21 Neut # (Auto) 3.57 10^3/uL (1.8-7.7) 05/22/22 14:21 Lymph # (Auto) 1.5 10^3/uL (0.8-4.8) 05/22/22 14:21 [place] # (Auto) 0.6 10^3/uL (0.2-0.9) 05/22/22 14:21 Eos # (Auto) 0.2 10^3/uL (0.0-0.8) 05/22/22 14:21 Baso # (Auto) 0.0 10^3/uL (0.0-0.1) 05/22/22 14:21 Absolute Gran (auto) Cancelled 05/22/22 13:17 Nucleated RBC % (auto) 0 % 05/22/22 14:21 Nucleated RBCs # 0.0 /100WBC 05/22/22 14:21 ESR 53 mm/hr (0-15) H 05/22/22 14:21 D-Dimer 0.96 ug/mIFEU (0-0.59) H 05/22/22 16:32 Specimen Type Arterial 05/22/22 15:58 Sample Site Brachial, left 05/22/22 15:58 ABG pH 7.32 (7.35-7.45) L 05/22/22 15:58 ABG pCO2 54.2 mmHg (35-45) H 05/22/22 15:58 ABG pO2 125.0 mmHg (80.0-100.0) H 05/22/22 15:58 ABG HCO3 27.6 mmol/L (22-26) H 05/22/22 15:58 ABG Base Excess 0.7 mmol/L (-2.0-2.0) 05/22/22 15:58 Sabino Test N/a 05/22/22 15:58 Hematocrit 35.7 % (37-47) L 05/22/22 15:58 O2 Delivery Device Nc 05/22/22 15:58 O2 Liters/Min 4.5 % 05/22/22 15:58 FiO2 38.0 % 05/22/22 15:58 Piano Machine Operator ID glc 05/22/22 15:58 Sodium 135 mmol/L (136-145) L 05/22/22 13:17 Potassium 5.1 mmol/L (3.5-5.1) 05/22/22 13:17 Chloride 99 mmol/L (98-107) 05/22/22 13:17 Carbon Dioxide 24 mmol/L (22-29) 05/22/22 13:17 Anion Gap 17.1 (5-19) 05/22/22 13:17 BUN 11 mg/dL (6-20) 05/22/22 13:17 Creatinine 0.6 mg/dL (0.5-0.9) 05/22/22 13:17 GFR Calculation 107.2 mL/min (90-130) 05/22/22 13:17 Glucose 127 mg/dL (65-115) H 05/22/22 13:17 POC Glucose 166 mg/dL (70-110) H 05/22/22 11:22 Calculated Osmolality 281 mOsm/kg (285-295) L 05/22/22 13:17 Lactic Acid Cancelled 05/22/22 16:32 Lactate 1.4 mmol/L (0.5-2.2) 05/22/22 16:32 Calcium 7.8 mg/dL (8.5-10.5) L 05/22/22 13:17 Total Bilirubin 0.2 mg/dL (0.15-1.2) 05/22/22 13:17 AST 16 U/L (0-32) 05/22/22 13:17 ALT 10 U/L (0-33) 05/22/22 13:17 Alkaline Phosphatase 71 IU/L (35-105) 05/22/22 13:17 Troponin T Baseline 10 ng/L (0-10) 05/22/22 13:17 Troponin T 120 Minute 11.53 ng/L (0-10) H 05/22/22 16:40 Delta Troponin T 1.53 ABS# (0-10) 05/22/22 16:40 C-Reactive Protein 24.6 mg/L (0.0-4.9) H 05/22/22 13:17 NT-Pro-B Natriuret Pep 89 pg/mL (0-125) 05/22/22 13:17 Total Protein 6.5 g/dL (6.6-8.7) L 05/22/22 13:17 Albumin 3.1 g/dL (3.5-5.2) L 05/22/22 13:17 Globulin 3.4 g/dL (1.3-4.6) 05/22/22 13:17 Lipase 24 U/L (13-60) 05/22/22 13:17 Procalcitonin 0.03 ng/mL (0-0.5) 05/22/22 13:17 Urine Color Yellow (Yellow) 05/22/22 11:40 Urine Appearance Hazy (CLEAR) A 05/22/22 11:40 Urine pH 7 (5-7) 05/22/22 11:40 Ur Specific [place] 1.005 (1.005-1.030) 05/22/22 11:40 Urine Protein Neg (Negative) 05/22/22 11:40 Urine Glucose (UA) Norm (Normal) 05/22/22 11:40 Urine Ketones Negative (Negative) 05/22/22 11:40 Urine Blood 2+ (Negative) H 05/22/22 11:40 Urine Nitrate Negative (Negative) 05/22/22 11:40 Urine Bilirubin Neg (Negative) 05/22/22 11:40 Urine Urobilinogen Norm mg/dL (Negative) 05/22/22 11:40 Ur Leukocyte Esterase 2+ (Negative) H 05/22/22 11:40 Urine RBC 0-4 /hpf (0-2) H 05/22/22 11:40 Urine WBC Too numerous to cnt /hpf (0-5) H 05/22/22 11:40 Ur Squamous Epith Cells 0-4 /hpf (0-5) H 05/22/22 11:40 Amorphous Sediment Not Reportable 05/22/22 11:40 Urine Bacteria 2+ /hpf (NONE) H 05/22/22 11:40 SARS-CoV-2 Ag (Rapid) Negative (Negative) 05/22/22 13:11 Imaging Data Other Imaging: Radiologist's impression: [address] [address] XRay Report Signed Patient: Rosanne Morales Unit #: [id number] : 1975 Age/Sex: 47 / F ADM Date: 05/22/22 Loc: ER Room/Bed: Attending Dr: Ordering Provider/Ordering MD: Alf Lopez MD Date of Service: 05/22/22 Procedure(s): XR chest 1V portable [id number] Accession Number(s): [id number] Report Number: [id number] WS: [id number] Exam: XR chest 1V portable [id number] Date/Time of Exam: 05/22/2022 11:51 AM Reason For Exam: dyspnea Comparison 05/05/2022. The lungs are fully expanded. Mild plaque atelectasis at the right hilum. Normal cardiomediastinal structures for technique. Right-sided PICC line in place unchanged in location. Exact location of the line is indeterminate. Bony structures are intact. The chest is rotated. XR/XR chest 1V portable [id number] IMPRESSION: 1. Mild plaque atelectasis at the right hilum. No acute cardiopulmonary finding. 2. Right-sided PICC line in place unchanged. Exact location is difficult to determine. ? Dictated By: Sanjiv Newman DO Signed By: Sanjiv Newman DO Signed Date/Time: 05/22/221208 DD/ 120 Discharge Plan Discharge Condition: Stable Prescriptions: No Action ascorbic acid (vitamin C) [Vitamin C] 1,000 mg Tablet 1,000 mg PO BID@08,20 methenamine hippurate 1 gram Tablet 1 g PO BID@08,20 pantoprazole 40 mg Tablet,Delayed Release (Dr/Ec) 40 mg PO DAILY lactulose 10 gram/15 mL (15 mL) Solution 30 ml PO TID sennosides-docusate sodium [Senna Plus] 8.6-50 mg Tablet 2 tab PO BID@08,20 metoclopramide HCl 10 mg tablet 10 mg PO Q6H PRN (Reason: nausea and vomiting) Qty: 20 0RF pravastatin 40 mg Tablet 40 mg PO BEDTIME naloxone 0.4 mg/mL Solution 0.4 mg IM Q2M PRN (Reason: overdose) acetaminophen 500 mg Tablet 500 mg PO Q6H PRN (Reason: Pain) simethicone 80 mg Tablet,Chewable 80 mg PO .AFTER MEALS polyethylene glycol 3350 [Miralax] 17 gram/dose powder 17 g PO DAILY PRN (Reason: constipation) tizanidine 4 mg Tablet 4 mg PO TID@08,14,20 PRN (Reason: unknown) fentanyl 50 mcg/hr Patch 72 Hour 1 patch TRANSDERMAL Q72H Qty: 5 0RF morphine concentrate 100 mg/5 mL (20 mg/mL) solution 5 mg PO Q4H PRN (Reason: Pain) Qty: 30 0RF alprazolam [Xanax] 0.25 mg Tablet 0.25 mg PO TID PRN (Reason: Anxiety) Qty: 10 0RF ondansetron HCl 4 mg Tablet 4 mg PO Q6H PRN (Reason: Nausea) Relistor 12 mg/0.6 mL Syringe 0.6 ml SUBCUT Q3D PRN (Reason: Constipation) gabapentin 600 mg tablet 1,200 mg PO TID docusate sodium [Colace] 100 mg Capsule 100 mg PO BID insulin lispro [Humalog KwikPen Insulin] 100 unit/mL Insulin Pen See Rx Instructions .ROUTE .COMPLEX Rx Instructions: SLIDING SCALE- BLOOD SUGAR 125-150 GIVE 2 UNITS, 151-200 GIVE 4 UNITS, 201-250 GIVE 6 UNITS, 251-300 GIVE 8 UNITS, 301-350 GIVE 10 UNITS, 351-400 GIVE 12 UNITS pregabalin [Lyrica] 50 mg Capsule 50 mg PO BID calcium carbonate [Tums Ultra] 400 mg calcium (1,000 mg) Tablet,Chewable 400 mg PO DAILY PRN (Reason: Heartburn) magnesium hydroxide [Milk of Magnesia] 400 mg/5 mL suspension 5 ml PO DAILY Qty: 355 0RF potassium chloride 20 mEq Tablet Extended Release 20 meq PO DAILY miconazole nitrate [Monistat 7] 2 % Cream 1 applic VAGINAL BID metformin 1,000 mg Tablet 1,000 mg PO BID lidocaine 5 % Adhesive Patch,Medicated 1 patch TOPICAL Q12H Rx Instructions: leave on most painful area for up to 12 hrs sertraline 50 mg Tablet 50 mg PO DAILY fluconazole 200 mg tablet 200 mg PO DAILY 10 Days Qty: 10 0RF Coding Level of Care Code ED [facility] [employer] Fwd Exam Comprehensive
--- NOTE | 2022-05-22 11:51 | XR_ITS ---
WS: [id number] Exam: XR chest 1V portable [id number] Date/Time of Exam: 05/22/2022 11:51 AM Reason For Exam: dyspnea Comparison 05/05/2022. The lungs are fully expanded. Mild plaque atelectasis at the right hilum. Normal cardiomediastinal st ructures for technique. Right-sided PICC line in place unchanged in location. Exact location of the l ine is indeterminate. Bony structures are intact. The chest is rotated. XR/XR chest 1V portable [id number] IMPRESSION: 1. Mild plaque atelectasis at the right hilum. No acute cardiopulmonary finding . 2. Right-sided PICC line in place unchanged. Exact location is difficult to det ermine.
--- NOTE | 2022-05-22 11:52 | ECG_ITS ---
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 Measurements Intervals [place] Rate: 83 P: 39 SD: 143 QRS: 21 QRSD: 75 T: 49 QT: 377 QTc: 444 Interpretive Statements SINUS RHYTHM NONSPECIFIC T-WAVE ABNORMALITY Compared to ECG 05/22/2022 13:23:32 No significant changes Electronically Signed On 05-22-2022 21:29:16 CDT by Ellen Kincaid M.D. [id number]
[2022-05-22 12:45] LABS: Bilirubin Urine Neg (Negative); Blood Urine 2+ (Negative); Glucose Urine UA Norm (Normal); Ketones Urine Negative (Negative); Leukocyte Esterase Urine 2+ (Negative); Nitrate Urine Negative (Negative); Protein Urine Neg (Negative); Specific Gravity, Urine 1.005 (1.005-1.030); Urine Appearance Hazy (CLEAR); Urine Color Yellow (Yellow); Urobilinogen Urine Norm (Negative); pH Urine 7 (5-7)
[2022-05-22 12:46] LABS: Add Urine Culture? Yes; Add Urine Microscopic? YES; Bacteria Urine 2+ /hpf; RBC Urine 0-4 /hpf (0-2); Squamous Epithelial Cell Urine 0-4 /hpf (0-5); WBC Urine TOO NUMEROUS TO CNT /hpf (0-5)
[2022-05-22] MEDS: sodium chloride 0.9% 1,000 ML 999 ML IV ×2 (12:50→19:26)
[2022-05-22] MEDS: morphine 4 mg/mL SDV 1 mL IVP (12:50)
[2022-05-22 13:50] LABS: SARS Covid-2 Antigen Negative (Negative)
--- NOTE | 2022-05-22 13:52 | ECG_ITS ---
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 Measurements Intervals [place] Rate: 85 P: 40 WI: 143 QRS: 29 QRSD: 82 T: 58 QT: 390 QTc: 465 Interpretive Statements SINUS RHYTHM POSSIBLE RIGHT VENTRICULAR CONDUCTION DELAY [RSR (QR) IN V1/V2] NONSPECIFIC T-WAVE ABNORMALITY Compared to ECG 04/07/2022 21:14:03 No significant changes Electronically Signed On 05-22-2022 21:37:04 CDT by Ellen Kincaid M.D. [id number]
[2022-05-22 14:02] LABS: Troponin(5th) Baseline 10 ng/L (0-10)
[2022-05-22 14:11] LABS: Alanine Aminotransferase 10 U/L (0-33); Albumin Level 3.1 g/dL (3.5-5.2); Alkaline Phosphatase 71 IU/L (35-105); Blood Urea Nitrogen 11 mg/dL (6-20); Calcium 7.8 mg/dL (8.5-10.5); Carbon Dioxide 24 mmol/L (22-29); Chloride 99 mmol/L (98-107); Globulin 3.4 g/dL (1.3-4.6); Glomerular Filtration Rate 107.2 mL/min (90-130); Glucose 127 mg/dL (65-115); Lipase 24 U/L (13-60); NT Pro B Type Natriuretic Pept 89 pg/mL (0-125); Osmolality Calculated 281 mOsm/kg (285-295); Sodium 135 mmol/L (136-145); Total Bilirubin 0.2 mg/dL (0.15-1.2); Total Protein 6.5 g/dL (6.6-8.7)
[2022-05-22 14:14] LABS: Anion Gap 17.1 (5-19); Aspartate Amino Transferase 16 U/L (0-32); Potassium 5.1 mmol/L (3.5-5.1)
[2022-05-22 14:43] LABS: Basophils % 0.5 %; Eosinophils # 0.2 10^3/uL (0.0-0.8); Eosinophils % 2.5 %; Hematocrit 38.4 % (37.0-47.0); Hemoglobin 11.6 g/dL (11.5-15.3); Lymphocytes # 1.5 10^3/uL (0.8-4.8); Lymphocytes % 25.5 %; Mean Corpuscular HGB Conc 30.2 g/dL (30.0-36.0); Mean Corpuscular Hemoglobin 28.9 pg (28.0-34.0); Mean Corpuscular Volume 95.8 fl (81-99); Mean Platelet Volume 11.1 fL (7.4-10.4); Monocytes # 0.6 10^3/uL (0.2-0.9); Monocytes % 10.4 %; Neutrophils # 3.57 10^3/uL (1.8-7.7); Neutrophils % 60.6 %; Nucleated Red Blood Cells % 0 %; Platelet Count 203 10^3/cmm (130-400); Red Blood Count 4.01 10^6/uL (4.1-5.3); Red Cell Distribution Width 14.8 % (12.1-15.1); White Blood Count 5.9 10^3/uL (4.0-10.0)
[2022-05-22] MEDS: HYDROmorphone 1 mg/mL INJ 1 mL 0.5 MG IVP (14:55)
[2022-05-22 16:09] LABS: ABG PCO2 54.2 mmHg (35-45); ABG PH Result 7.32 (7.35-7.45); Arterial Blood Gas Hematocrit 35.7 % (37-47); Base Excess ABG 0.7 mmol/L (-2.0-2.0); Blood Gas LPM 4.5 %; Blood Gas Operator Identificat glc; Blood Gas Sample Site Brachial, left; Blood Gas Sample Type Arterial; HCO3 ABG 27.6 mmol/L (22-26); Oxygen Device NC
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
--- NOTE | 2022-05-22 17:08 | CTR_ITS ---
PROCEDURE INFORMATION: Exam: CTA Chest With Contrast Exam date and time: 05/22/2022 5:44 PM Age: 47 years old Clinical indication: Shortness of breath and wheezing; Patient HX: Quadraplegia, new onset dyspnea today; Additional info: Hypoxemia TECHNIQUE: Imaging protocol: Computed tomographic angiography of the chest with contrast. 3D rendering (Not supervised by radiologist): MIP and/or 3D reconstructed images were created by the technologist. Radiation optimization: All CT scans at this facility use at least one of these dose optimization techniques: automated exposure control; mA and/or kV adjustment per patient size (includes targeted exams where dose is matched to clinical indication); or iterative reconstruction. Contrast material: OMNIPAQUE 350; Contrast volume: 70 ml; Contrast route: INTRAVENOUS (IV); COMPARISON: CT angio chest PE protcl [id number] 03/08/2022 4:27 AM RADIATION DOSE METRICS: Total DLP (mGy-cm): 293.81 FINDINGS: Tubes, catheters and devices: There is a catheter present in the right subclavian artery, with distal tip in the proximal descending thoracic aorta. Pulmonary arteries: Pulmonary arteries are normal in caliber. No filling defects are demonstrated. No evidence of pulmonary embolism. 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 Aorta: No aortic aneurysm or aortic dissection noted. Lungs: Nonspecific atelectasis versus consolidation in the bilateral lower lobes. Mild atelectasis in the right middle lobe and lingula. Pleural spaces: No pneumothorax. No pleural effusion. Heart: No cardiomegaly demonstrated. The coronary arteries demonstrate atherosclerotic calcifications. There is no significant pericardial effusion present. Lymph nodes: No pathologically enlarged lymph nodes are demonstrated. Bones/joints: Unremarkable. No acute osseous abnormality. Soft tissues: Unremarkable. CT/CT angio chest PE protcl [id number] IMPRESSION: 1. No evidence of pulmonary embolism. 2. No aortic aneurysm or aortic dissection noted. 3. There is a catheter present in the right subclavian artery, with distal tip in the proximal descending thoracic aorta. 4. Nonspecific atelectasis versus consolidation in the bilateral lower lobes. Mild atelectasis in the right middle lobe and lingula.
[2022-05-22 17:20] LABS: Lactate (Lactic Acid level) 1.4 mmol/L (0.5-2.2)
[2022-05-22 17:29] LABS: D Dimer 0.96 ug/mIFEU (0-0.59)
[2022-05-22 17:31] LABS: Erythrocyte Sedimentation Rate 53 mm/hr (0-15)
[2022-05-22 18:04] LABS: Troponin 5 2HR 11.53 ng/L (0-10)
[2022-05-22 18:04] LABS: Procalcitonin 0.03 ng/mL (0-0.5)
[2022-05-22] MEDS: iohexol 350 mg/mL 100 mL Btl IV (18:09)
[2022-05-22 18:14] LABS: Troponin 5 2HR Delta 1.53 ABS# (0-10)
[2022-05-22 18:17] LABS: C Reactive Protein 24.6 mg/L (0.0-4.9)
[2022-05-22] MEDS: meropenem 1,000 MG in sodium chloride 0.9% (plus) 50 ML 100 MG IV (19:27)
[2022-05-22] MEDS: vancomycin 1,000 MG in sodium chloride 0.9% 250 ML 250 MG IV (19:58)
[2022-05-22] MEDS: HYDROmorphone 1 mg/mL INJ 1 mL IVP (20:20)
--- NOTE | 2022-05-22 21:50 | USR_ITS ---
PROCEDURE INFORMATION: Exam: US Duplex Lower Extremity Veins, Bilateral Exam date and time: 05/22/2022 10:06 PM Age: 47 years old Clinical indication: Condition or disease; Other: Severe neuropathy, patient unable to move her limbs. History of dvt ble 2020; Patient HX: Severe neuropathy, patient unable to move her limbs. There is no edema bilaterally. There is no erythema bilaterally. Patient has chronic pain in both legs, due to severe neuropathy. TECHNIQUE: Imaging protocol: Real-time Duplex ultrasound of the bilateral extremities with 2-D pina scale, color Doppler flow and spectral waveform analysis with image documentation. Complete exam focused on the bilateral lower extremity veins. COMPARISON: No relevant prior studies available. FINDINGS: Right deep veins: Unremarkable. The common femoral, femoral, proximal profunda femoral and popliteal veins are patent without thrombus. Normal Doppler waveforms. Normal compressibility and/or augmentation response. Right superficial veins: Saphenofemoral junction is patent without thrombus. Left deep veins: Unremarkable. The common femoral, femoral, proximal profunda femoral and popliteal veins are patent without thrombus. Normal Doppler waveforms. Normal compressibility and/or augmentation response. Left superficial veins: Saphenofemoral junction is patent without thrombus. Soft tissues: Unremarkable. US/[place] [id number] IMPRESSION: No evidence of deep vein thrombosis, bilateral lower extremities.
[2022-05-22 23:23] LABS: Glucose Point of Care 117 mg/dL (70-110)
[2022-05-23] VITALS (11 sets, daily range): BP systolic 96–113; BP diastolic 65–74; PULSE 67–98; RESP 13–18; TEMP 36.2–38.4; O2SAT 94–100
[2022-05-23] MEDS: pregabalin 50 mg Capsule PO ×3 (01:15→17:56)
[2022-05-23] MEDS: sennosides-docusate Tablet 2 TAB PO ×3 (01:15→21:17)
[2022-05-23] MEDS: docusate sodium 100 mg Capsule PO ×3 (01:15→17:56)
[2022-05-23] MEDS: enoxaparin 30 mg/0.3 mL Syringe SUBCUT ×2 (01:15→21:19)
[2022-05-23 06:19] LABS: Glucose Point of Care 130 mg/dL (70-110)
--- NOTE | 2022-05-23 09:47 | PC.CHAP ---
Pastoral Care Encounter/Spiritual Assessment Type of Contact [] Declined supervisor residential visit [] Patient/Family/Request visit [] Outpatient visit [] Follow-up visit [] Physician referral [] Code/Alert x[] Routine visit [] Staff referral [] Actively dying [] Patient sleeping [] Family support [] [] Out of room [] Palliative care [] [] Receiving care in room [] Pre-surgical visit [] Trauma [] Long length of stay [] ICU visit [] Other: Relational/Emotional Strength [x] Patient feels connected with others/family/visitors/staff [] Distress [] Loneliness/isolation [] Abandonment Spirituality of Patient [] Person of Susan [] Attends Latter Day of their Susan x[] Believes in Prayer [] Reads Bible or Taoism materials x [] There are Spiritual issues to be addressed Underwriting Director Interventions [x] Prayer [] Active listening [] Non-anxious presence [] Spiritual/emotional support [] Crisis/trauma care [] Spiritual counseling [] Bereavement support [] Provided bereavement packet [] Provided Bible/devotional materials [] Provided toy/stuffed animal, coloring book to patient or family member [] Provided Communion [] Anointing/[place] [] Salvation [] Completed spiritual assessment [] Other: Impact on Illness or Injury [] Angry [] Fearful [] Anxious [] Often cries [] Exhaustion [] Unable to work [] Unable to attend temple [] Unable to walk/stand [] Unable to read [] Unable to drive [] Unable to eat/drink [] Unable to sleep [] Unable to be with family [] Patient intubated [] Other: Summary Time spent with patient 5 min
[2022-05-23 09:58] LABS: Basophils % 0.4 %; Eosinophils # 0.1 10^3/uL (0.0-0.8); Eosinophils % 2.2 %; Hematocrit 43.1 % (37.0-47.0); Lymphocytes # 1.3 10^3/uL (0.8-4.8); Lymphocytes % 28.9 %; Mean Corpuscular HGB Conc 30.2 g/dL (30.0-36.0); Mean Corpuscular Hemoglobin 29.1 pg (28.0-34.0); Mean Corpuscular Volume 96.6 fl (81-99); Mean Platelet Volume 10.6 fL (7.4-10.4); Monocytes # 0.7 10^3/uL (0.2-0.9); Monocytes % 15.7 %; Neutrophils # 2.32 10^3/uL (1.8-7.7); Neutrophils % 52.1 %; Nucleated Red Blood Cells % 0 %; Platelet Count 169 10^3/cmm (130-400); Red Blood Count 4.46 10^6/uL (4.1-5.3); Red Cell Distribution Width 15.1 % (12.1-15.1); White Blood Count 4.5 10^3/uL (4.0-10.0)
[2022-05-23] MEDS: morphine 10 mg/0.5 mL oral liq UD 5 MG PO ×2 (10:20→21:21)
[2022-05-23] MEDS: ALPRAZolam 0.5 mg Tablet 0.25 MG PO ×2 (10:21→21:20)
[2022-05-23] MEDS: fluconazole 100 mg Tablet 200 MG PO (10:22)
[2022-05-23] MEDS: gabapentin 400 mg Capsule 1200 MG PO ×3 (10:23→21:19)
[2022-05-23] MEDS: sertraline 50 mg Tablet PO (10:24)
[2022-05-23] MEDS: tizanidine 4 mg Tablet PO ×2 (10:24→21:20)
[2022-05-23] MEDS: pantoprazole DR 40 mg Tablet PO (10:24)
[2022-05-23] MEDS: ondansetron 2 mg/ML SDV 2 mL 4 MG IVP ×2 (10:25→22:25)
[2022-05-23] MEDS: FUROsemide 10 mg/mL SDV 4mL 40 MG IVP (10:26)
[2022-05-23 11:06] LABS: Glucose Point of Care 170 mg/dL (70-110)
[2022-05-23] MEDS: insulin lispro 100 unit/1 mL SUBCUT (13:01)
--- NOTE | 2022-05-23 13:22 | PM.PN ---
Subjective Subjective: Patient was seen this morning, she is alert and oriented x3, she tells me that she is feeling little better she is on 2 to 3 L, no fevers overnight, has recurrent UTI Vitals/I&O/Wt Last Vital Signs Temp 98.4 F 05/23/22 12:00 Pulse 81 05/23/22 12:00 Resp 13 05/23/22 12:00 BP 96/67 05/23/22 12:00 Pulse Ox 99 05/23/22 12:00 O2 Del Method 05/23/22 12:00 O2 Flow Rate 3 05/23/22 08:22 05/22/22 05/23/22 05/23/22 22:59 06:59 14:59 Intake Total 1345 / 2345 400 / 2745 120 / 120 Output Total 1100 / 1100 Balance 1345 / 2345 -700 / 1645 120 / 120 Weight last 48 hrs Weight 65.771 kg Physical Exam Const: COMMON NORMALS: no acute distress and patient oriented x3 Resp: COMMON NORMALS: normal respiratory effort, No retractions, No use of accessory muscles and clear to auscultation bilaterally AUSCULTATION: clear to auscultation bilaterally Cardio: COMMON NORMALS: regular rate, regular rhythm, S1 normal heart sound present and S2 normal heart sound present RATE: regular rate RHYTHM: regular rhythm HEART SOUNDS: S1 normal heart sound present and S2 normal heart sound present GI: COMMON NORMALS: Normal to inspection, nondistended, normoactive bowel sounds present and non-tender : OTHER: Suprapubic catheter in place Extremity: COMMON NORMALS: no pedal edema Neuro: COMMON NORMALS: patient oriented x3 Psych: COMMON NORMALS: mental status grossly normal Data : 05/23/22 09:30 05/22/22 13:17 Micro: Microbiology 05/22/22 11:40 Urine Culture - Preliminary Urine,Clean Catch Gram Negative Rods 05/22/22 16:32 Blood Culture - Preliminary Blood SPECIMEN COLLECTED 05/22/22 16:34 Blood Culture - Preliminary Blood SPECIMEN COLLECTED A&P Assessment and plan (1) History of ESBL E. coli infection: Status: Acute (2) Pyelonephritis: Status: Acute (3) Suprapubic catheter: Status: Acute (4) Flank pain: Status: Acute (5) Shortness of breath: Status: Acute Plan Shortness of breath -Likely fluid overload, possible aspiration -Chest x-ray no focal pneumonia -No significant BNP elevation -Does complain of shortness of breath, cough, possible aspiration? -Prolonged immobility, venous ultrasound negative for DVT, CT angiogram negative for possible pulmonary embolism, -Currently on 2 to 3 L -Possible atelectasis, incentive spirometer, flutter valve -1 dose of Lasix today Acute on chronic UTI -Secondary suprapubic catheter -Saw Dr. Culp, appointments [facility] in the future, for change of suprapubic catheter -Has a PICC line in place for ESBL E. coli UTI, had pyelonephritis, finished Primaxin -PICC line leaking, will need to remove -Continues to complain of flank pain, lower pelvic pain, continue Primaxin -Follow urine cultures, blood cultures Type 2 diabetes mellitus, low-dose sliding scale Chronic pain continue fentanyl, morphine Attestations Medical Necessity Statement*: Patient requires positioning fluid overload, shortness of breath, acute on chronic UTI, suprapubic catheter Coding Level of Care Code Acute Contact And Service Clerks Supervisor for Chg Fwd Diagnoses History of ESBL E. coli infection Z86.19 Pyelonephritis N12 Suprapubic catheter Z93.59 Flank pain R10.9 Shortness of breath R06.02
[2022-05-23 13:51] LABS: Alanine Aminotransferase 13 U/L (0-33); Albumin Level 3.6 g/dL (3.5-5.2); Alkaline Phosphatase 85 IU/L (35-105); Aspartate Amino Transferase 23 U/L (0-32); Blood Urea Nitrogen 9 mg/dL (6-20); Carbon Dioxide 27 mmol/L (22-29); Chloride 100 mmol/L (98-107); Globulin 3.7 g/dL (1.3-4.6); Glomerular Filtration Rate 107.2 mL/min (90-130); Glucose 121 mg/dL (65-115); Magnesium 2.9 mg/dL (1.7-2.3); Osmolality Calculated 284 mOsm/kg (285-295); Phosphorus 3.4 mg/dL (2.5-4.5); Sodium 137 mmol/L (136-145); Total Bilirubin 0.3 mg/dL (0.15-1.2); Total Protein 7.3 g/dL (6.6-8.7)
[2022-05-23 13:54] LABS: Anion Gap 15.1 (5-19); Potassium 5.1 mmol/L (3.5-5.1)
[2022-05-23 16:57] LABS: Glucose Point of Care 135 mg/dL (70-110)
[2022-05-23] MEDS: atorvastatin 40 mg Tablet 20 MG PO (21:18)
[2022-05-23 22:33] LABS: Glucose Point of Care 188 mg/dL (70-110)
[2022-05-24] VITALS (9 sets, daily range): BP systolic 95–135; BP diastolic 58–78; PULSE 74–80; RESP 16–17; TEMP 36.5–36.9; O2SAT 95–98
[2022-05-24 05:52] LABS: Basophils % 0.4 %; Eosinophils # 0.1 10^3/uL (0.0-0.8); Eosinophils % 2.6 %; Hematocrit 37.8 % (37.0-47.0); Hemoglobin 11.1 g/dL (11.5-15.3); Lymphocytes # 1.8 10^3/uL (0.8-4.8); Lymphocytes % 36.9 %; Mean Corpuscular HGB Conc 29.4 g/dL (30.0-36.0); Mean Corpuscular Hemoglobin 28.5 pg (28.0-34.0); Mean Corpuscular Volume 97.2 fl (81-99); Mean Platelet Volume 10.8 fL (7.4-10.4); Monocytes # 0.5 10^3/uL (0.2-0.9); Monocytes % 9.5 %; Neutrophils # 2.47 10^3/uL (1.8-7.7); Neutrophils % 50.2 %; Nucleated Red Blood Cells % 0 %; Platelet Count 215 10^3/cmm (130-400); Red Blood Count 3.89 10^6/uL (4.1-5.3); Red Cell Distribution Width 14.9 % (12.1-15.1); White Blood Count 4.9 10^3/uL (4.0-10.0)
[2022-05-24 06:18] LABS: Glucose Point of Care 164 mg/dL (70-110)
[2022-05-24 06:27] LABS: Alanine Aminotransferase 12 U/L (0-33); Albumin Level 3.3 g/dL (3.5-5.2); Alkaline Phosphatase 83 IU/L (35-105); Anion Gap 14.2 (5-19); Aspartate Amino Transferase 16 U/L (0-32); Blood Urea Nitrogen 15 mg/dL (6-20); Carbon Dioxide 28 mmol/L (22-29); Chloride 99 mmol/L (98-107); Globulin 3.4 g/dL (1.3-4.6); Glomerular Filtration Rate 76.9 mL/min (90-130); Glucose 150 mg/dL (65-115); Magnesium 2.6 mg/dL (1.7-2.3); Osmolality Calculated 288 mOsm/kg (285-295); Phosphorus 3.3 mg/dL (2.5-4.5); Potassium 4.2 mmol/L (3.5-5.1); Sodium 137 mmol/L (136-145); Total Bilirubin 0.2 mg/dL (0.15-1.2); Total Protein 6.7 g/dL (6.6-8.7)
[2022-05-24] MEDS: fentaNYL 50 mcg Patch 1 PATCH TRANSDERMA (09:54)
[2022-05-24] MEDS: fluconazole 100 mg Tablet 200 MG PO (09:55)
[2022-05-24] MEDS: pantoprazole DR 40 mg Tablet PO (09:55)
[2022-05-24] MEDS: gabapentin 400 mg Capsule 1200 MG PO ×2 (09:55→20:19)
[2022-05-24] MEDS: ALPRAZolam 0.5 mg Tablet 0.25 MG PO ×2 (09:55→20:20)
[2022-05-24] MEDS: docusate sodium 100 mg Capsule PO ×2 (09:55→16:54)
[2022-05-24] MEDS: sertraline 50 mg Tablet PO (09:57)
[2022-05-24] MEDS: pregabalin 50 mg Capsule PO ×2 (09:57→16:44)
[2022-05-24] MEDS: sennosides-docusate Tablet 2 TAB PO ×2 (10:04→20:20)
[2022-05-24] MEDS: ondansetron 2 mg/ML SDV 2 mL 4 MG IVP ×3 (11:28→20:51)
[2022-05-24] MEDS: insulin lispro 100 unit/1 mL SUBCUT (12:38)
[2022-05-24] MEDS: tizanidine 4 mg Tablet PO ×2 (12:45→20:20)
[2022-05-24 13:07] LABS: Glucose Point of Care 144 mg/dL (70-110)
--- NOTE | 2022-05-24 13:11 | CTR_ITS ---
PROCEDURE INFORMATION: Exam: CT Abdomen And Pelvis With Contrast Exam date and time: 05/24/2022 6:10 PM Age: 47 years old Clinical indication: Prior surgery; Surgery date: 6+ months; Surgery type: Bladder, spine, hyst, part. Gastrectomy; Patient HX: UTI, fever; Additional info: Recurrent UTI, now fever TECHNIQUE: Imaging protocol: Computed tomography of the abdomen and pelvis with contrast. Radiation optimization: All CT scans at this facility use at least one of these dose optimization techniques: automated exposure control; mA and/or kV adjustment per patient size (includes targeted exams where dose is matched to clinical indication); or iterative reconstruction. Contrast material: OMNI 350; Contrast volume: 95 ml; Contrast route: INTRAVENOUS (IV); COMPARISON: CT abdomen pelvis w con* [id number] 05/12/2022 6:50 PM RADIATION DOSE METRICS: Total DLP (mGy-cm): 568.83 FINDINGS: Liver: Normal. No mass. Gallbladder and bile ducts: Normal. No calcified stones. No ductal dilation. Pancreas: Normal. No ductal dilation. Spleen: Normal. No splenomegaly. Adrenal glands: 8 mm nodular region of the left adrenal gland is similar to the prior study. This is too small to further characterize. Kidneys and ureters: Normal. No hydronephrosis. Stomach and bowel: Postoperative gastric changes. Moderate stool burden. Appendix: A normal appendix is identified. Intraperitoneal space: Unremarkable. No free air. No significant fluid collection. Vasculature: Unremarkable. No abdominal aortic aneurysm. Lymph nodes: Unremarkable. No enlarged lymph nodes. Urinary bladder: Postoperative bladder changes. There is a percutaneous catheter in the bladder. Bladder wall is ill-defined. Reproductive: The uterus is not visualized, consistent with hysterectomy. Bones/joints: Unremarkable. No acute fracture. Soft tissues: Unremarkable. CT/CT abdomen pelvis w con* [id number] IMPRESSION: There are postoperative bladder changes with a percutaneous catheter in the bladder. Bladder wall is ill-defined. This is nonspecific and may represent bladder outlet obstruction, inflammation or infection. Neoplastic process is included in the differential.
--- NOTE | 2022-05-24 13:11 | PM.PN ---
Subjective Subjective: Patient was seen this morning, she does report a fever overnight, she does report right shoulder pain, Vitals/I&O/Wt Last Vital Signs Temp 98.0 F 05/24/22 07:12 Pulse 77 05/24/22 08:00 Resp 16 05/24/22 07:12 BP 95/65 05/24/22 07:12 Pulse Ox 95 05/24/22 08:00 O2 Del Method 05/24/22 08:00 O2 Flow Rate 3 05/24/22 08:00 05/23/22 05/24/22 05/24/22 22:59 06:59 14:59 Intake Total 320 / 780 100 / 880 200 / 200 Output Total 1350 / 1350 Balance 320 / 780 -1250 / -470 200 / 200 Physical Exam Const: COMMON NORMALS: no acute distress and patient oriented x3 Resp: COMMON NORMALS: normal respiratory effort, No retractions, No use of accessory muscles and clear to auscultation bilaterally AUSCULTATION: clear to auscultation bilaterally Cardio: COMMON NORMALS: regular rate, regular rhythm, S1 normal heart sound present and S2 normal heart sound present RATE: regular rate RHYTHM: regular rhythm HEART SOUNDS: S1 normal heart sound present and S2 normal heart sound present GI: COMMON NORMALS: Normal to inspection, nondistended, normoactive bowel sounds present and non-tender Extremity: COMMON NORMALS: no pedal edema Neuro: COMMON NORMALS: patient oriented x3 Psych: COMMON NORMALS: mental status grossly normal Data : 05/24/22 04:35 05/24/22 04:35 Micro: Microbiology 05/22/22 11:40 Urine Culture - Final Urine,Clean Catch Escherichia coli esbl 05/22/22 16:32 Blood Culture - Preliminary Blood NEGATIVE TO DATE 05/22/22 16:34 Blood Culture - Preliminary Blood NEGATIVE TO DATE A&P Assessment and plan (1) History of ESBL E. coli infection: Status: Acute (2) Pyelonephritis: Status: Acute (3) Suprapubic catheter: Status: Acute (4) Flank pain: Status: Acute (5) Shortness of breath: Status: Acute Plan Shortness of breath -Likely fluid overload, possible aspiration -Chest x-ray no focal pneumonia -No significant BNP elevation -Does complain of shortness of breath, cough, possible aspiration? -Prolonged immobility, venous ultrasound negative for DVT, CT angiogram negative for possible pulmonary embolism, -Currently on 2 to 3 L -Possible atelectasis, incentive spirometer, flutter valve - another dose of Lasix today Acute on chronic UTI -Secondary suprapubic catheter -Saw Dr. Culp, appointments [facility] in the future, for change of suprapubic catheter -Has a PICC line in place for ESBL E. coli UTI, had pyelonephritis, finished Primaxin -PICC line removed due to leaking, concerns for infection, although blood cultures remain clear -Continues to complain of flank pain, lower pelvic pain, now with low-grade fever overnight continue Primaxin -CT scan abdomen pelvis with contrast -Follow urine cultures, blood cultures Type 2 diabetes mellitus, low-dose sliding scale Chronic pain continue fentanyl, morphine Attestations Medical Necessity Statement*: Patient requires hospitalization for shortness of breath, acute on chronic UTI Coding Level of Care Code Acute Glass Sander Belt for luis carlos Magaña Diagnoses History of ESBL E. coli infection Z86.19 Pyelonephritis N12 Suprapubic catheter Z93.59 Flank pain R10.9 Shortness of breath R06.02
[2022-05-24] MEDS: FUROsemide 10 mg/mL SDV 4mL 40 MG IVP (16:41)
[2022-05-24] MEDS: lidocaine 5% Patch 1 PATCH TOPICAL (16:54)
[2022-05-24] MEDS: morphine 10 mg/0.5 mL oral liq UD 5 MG PO ×2 (16:54→23:48)
[2022-05-24] MEDS: polyethylene glycol 3350 Pkt 17 gm PO (17:40)
[2022-05-24] MEDS: iohexol 350 mg/mL 100 mL Btl IV (18:19)
[2022-05-24 20:09] LABS: Glucose Point of Care 161 mg/dL (70-110)
[2022-05-24] MEDS: atorvastatin 40 mg Tablet 20 MG PO (20:19)
[2022-05-24] MEDS: enoxaparin 30 mg/0.3 mL Syringe SUBCUT (23:48)
[2022-05-25] VITALS (10 sets, daily range): BP systolic 101–136; BP diastolic 69–89; PULSE 74–113; RESP 16–20; TEMP 36.8–37.7; O2SAT 92–98
[2022-05-25 04:58] LABS: Basophils % 0.7 %; Eosinophils # 0.2 10^3/uL (0.0-0.8); Eosinophils % 3.3 %; Hematocrit 40.5 % (37.0-47.0); Hemoglobin 12.7 g/dL (11.5-15.3); Lymphocytes # 2.1 10^3/uL (0.8-4.8); Lymphocytes % 36.9 %; Mean Corpuscular HGB Conc 31.4 g/dL (30.0-36.0); Mean Corpuscular Hemoglobin 29.3 pg (28.0-34.0); Mean Corpuscular Volume 93.3 fl (81-99); Mean Platelet Volume 10.3 fL (7.4-10.4); Monocytes # 0.6 10^3/uL (0.2-0.9); Monocytes % 10.5 %; Neutrophils # 2.77 10^3/uL (1.8-7.7); Neutrophils % 48.3 %; Nucleated Red Blood Cells % 0 %; Platelet Count 236 10^3/cmm (130-400); Red Blood Count 4.34 10^6/uL (4.1-5.3); Red Cell Distribution Width 14.6 % (12.1-15.1); White Blood Count 5.7 10^3/uL (4.0-10.0)
[2022-05-25] MEDS: ondansetron 2 mg/ML SDV 2 mL 4 MG IVP ×4 (05:02→21:11)
[2022-05-25 05:31] LABS: Alanine Aminotransferase 15 U/L (0-33); Albumin Level 3.3 g/dL (3.5-5.2); Alkaline Phosphatase 94 IU/L (35-105); Blood Urea Nitrogen 16 mg/dL (6-20); Calcium 9.4 mg/dL (8.5-10.5); Carbon Dioxide 26 mmol/L (22-29); Chloride 95 mmol/L (98-107); Globulin 4.2 g/dL (1.3-4.6); Glomerular Filtration Rate 76.9 mL/min (90-130); Glucose 117 mg/dL (65-115); Magnesium 2.3 mg/dL (1.7-2.3); Osmolality Calculated 282 mOsm/kg (285-295); Phosphorus 3.9 mg/dL (2.5-4.5); Sodium 135 mmol/L (136-145); Total Bilirubin 0.2 mg/dL (0.15-1.2); Total Protein 7.5 g/dL (6.6-8.7)
[2022-05-25 05:32] LABS: Anion Gap 18.4 (5-19); Aspartate Amino Transferase 23 U/L (0-32); Potassium 4.4 mmol/L (3.5-5.1)
[2022-05-25 06:28] LABS: Glucose Point of Care 154 mg/dL (70-110)
[2022-05-25] MEDS: insulin lispro 100 unit/1 mL SUBCUT (08:33)
[2022-05-25] MEDS: lidocaine 5% Patch 1 PATCH TOPICAL ×2 (09:37→21:19)
[2022-05-25] MEDS: pantoprazole DR 40 mg Tablet PO (09:37)
[2022-05-25] MEDS: FUROsemide 10 mg/mL SDV 4mL 40 MG IVP (09:38)
[2022-05-25] MEDS: gabapentin 400 mg Capsule 1200 MG PO ×3 (09:38→21:00)
[2022-05-25] MEDS: metoclopramide 5 mg/mL SDV 2 mL IVP ×2 (09:38→16:02)
[2022-05-25] MEDS: pregabalin 50 mg Capsule PO ×2 (09:38→17:36)
[2022-05-25] MEDS: sennosides-docusate Tablet 2 TAB PO ×2 (09:38→21:00)
[2022-05-25] MEDS: fluconazole 100 mg Tablet 200 MG PO (09:38)
[2022-05-25] MEDS: sertraline 50 mg Tablet PO (09:38)
[2022-05-25] MEDS: docusate sodium 100 mg Capsule PO ×2 (09:38→17:36)
[2022-05-25 12:09] LABS: Glucose Point of Care 176 mg/dL (70-110)
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
[2022-05-25] MEDS: ALPRAZolam 0.5 mg Tablet 0.25 MG PO ×2 (15:26→21:11)
[2022-05-25] MEDS: tizanidine 4 mg Tablet PO ×2 (15:26→21:00)
--- NOTE | 2022-05-25 18:25 | PC.NURSE ---
spilt sponge changed to suprapubic cath.
[2022-05-25 20:29] LABS: Glucose Point of Care 142 mg/dL (70-110)
[2022-05-25] MEDS: atorvastatin 40 mg Tablet 20 MG PO (21:00)
[2022-05-25] MEDS: polyethylene glycol 3350 Pkt 17 gm PO (21:11)
[2022-05-25] MEDS: enoxaparin 30 mg/0.3 mL Syringe SUBCUT (22:14)
[2022-05-26] VITALS (10 sets, daily range): BP systolic 103–129; BP diastolic 72–83; PULSE 67–84; RESP 16–17; TEMP 36.3–36.7; O2SAT 92–98
[2022-05-26] MEDS: morphine 10 mg/0.5 mL oral liq UD 5 MG PO (01:08)
[2022-05-26] MEDS: metoclopramide 5 mg/mL SDV 2 mL IVP ×3 (03:04→20:59)
[2022-05-26 04:16] LABS: Glucose Point of Care 174 mg/dL (70-110)
[2022-05-26 04:21] LABS: Basophils % 0.8 %; Eosinophils # 0.2 10^3/uL (0.0-0.8); Hematocrit 38.6 % (37.0-47.0); Hemoglobin 12.7 g/dL (11.5-15.3); Lymphocytes # 2.1 10^3/uL (0.8-4.8); Lymphocytes % 41.3 %; Mean Corpuscular HGB Conc 32.9 g/dL (30.0-36.0); Mean Corpuscular Hemoglobin 28.4 pg (28.0-34.0); Mean Corpuscular Volume 86.4 fl (81-99); Mean Platelet Volume 10.3 fL (7.4-10.4); Monocytes # 0.5 10^3/uL (0.2-0.9); Monocytes % 9.9 %; Neutrophils # 2.25 10^3/uL (1.8-7.7); Neutrophils % 44.6 %; Nucleated Red Blood Cells % 0 %; Platelet Count 255 10^3/cmm (130-400); Red Blood Count 4.47 10^6/uL (4.1-5.3); Red Cell Distribution Width 14.4 % (12.1-15.1)
[2022-05-26 04:48] LABS: Alanine Aminotransferase 12 U/L (0-33); Albumin Level 3.6 g/dL (3.5-5.2); Alkaline Phosphatase 91 IU/L (35-105); Anion Gap 17.1 (5-19); Aspartate Amino Transferase 18 U/L (0-32); Blood Urea Nitrogen 18 mg/dL (6-20); Calcium 9.4 mg/dL (8.5-10.5); Carbon Dioxide 29 mmol/L (22-29); Chloride 93 mmol/L (98-107); Glomerular Filtration Rate 76.9 mL/min (90-130); Glucose 155 mg/dL (65-115); Magnesium 2.3 mg/dL (1.7-2.3); Osmolality Calculated 285 mOsm/kg (285-295); Phosphorus 3.8 mg/dL (2.5-4.5); Potassium 4.1 mmol/L (3.5-5.1); Sodium 135 mmol/L (136-145); Total Bilirubin 0.2 mg/dL (0.15-1.2); Total Protein 7.6 g/dL (6.6-8.7)
[2022-05-26] MEDS: ondansetron 2 mg/ML SDV 2 mL 4 MG IVP ×2 (06:48→15:43)
[2022-05-26 07:49] LABS: Glucose Point of Care 139 mg/dL (70-110)
[2022-05-26] MEDS: sertraline 50 mg Tablet PO (08:48)
[2022-05-26] MEDS: pantoprazole DR 40 mg Tablet PO (08:48)
[2022-05-26] MEDS: docusate sodium 100 mg Capsule PO ×2 (08:48→18:12)
[2022-05-26] MEDS: pregabalin 50 mg Capsule PO ×2 (08:48→18:12)
[2022-05-26] MEDS: sennosides-docusate Tablet 2 TAB PO ×2 (08:48→20:57)
[2022-05-26] MEDS: gabapentin 400 mg Capsule 1200 MG PO ×3 (08:48→20:58)
[2022-05-26] MEDS: fluconazole 100 mg Tablet 200 MG PO (08:48)
[2022-05-26] MEDS: lidocaine 5% Patch 1 PATCH TOPICAL ×2 (08:48→21:00)
[2022-05-26] MEDS: ALPRAZolam 0.5 mg Tablet 0.25 MG PO ×3 (08:54→21:19)
[2022-05-26] MEDS: tizanidine 4 mg Tablet PO ×3 (08:55→20:58)
--- NOTE | 2022-05-26 09:36 | PC.SOCIAL ---
IMM update IMM updated with patient. Verbalized an understanding. Copy Pg 2 provided. Initialled, dated, timed, and placed in chart.
[2022-05-26 12:01] LABS: Glucose Point of Care 188 mg/dL (70-110)
[2022-05-26 17:15] LABS: Glucose Point of Care 166 mg/dL (70-110)
--- NOTE | 2022-05-26 18:00 | PM.PN ---
Subjective Subjective: Reports she has not had a bowel movement since last Thursday. Having some tenderness on the right side of her buttock. Has been having some perineal and buttock irritation due to moisture. Still having some lower abdominal/pelvic discomfort. Vitals/I&O/Wt Last Vital Signs Temp 98.0 F 05/26/22 12:00 Pulse 75 05/26/22 12:00 Resp 17 05/26/22 12:00 BP 118/83 05/26/22 12:00 Pulse Ox 96 05/26/22 12:00 O2 Del Method 05/26/22 12:00 O2 Flow Rate 4 05/26/22 12:00 05/26/22 05/26/22 05/26/22 06:59 14:59 22:59 Intake Total 100 / 840 220 / 220 100 / 320 Output Total 300 / 550 Balance -200 / 290 220 / 220 100 / 320 Physical Exam Narrative: Quadriplegic Const: COMMON NORMALS: alert GENERAL APPEARANCE: cooperative ORIENTATION/CONSCIOUSNESS: Yes awake HENMT: COMMON NORMALS: normocephalic, EAC's normal, Normal external nose present and moist oral mucous membranes HEAD & SCALP: normocephalic NOSE: Normal external nose present EXTERNAL AUDITORY CANAL: EAC's normal Neck/C-Spine: COMMON NORMALS: no meningeal signs Chest: CHEST: Yes Symmetrical chest wall rise Resp: COMMON NORMALS: clear to auscultation bilaterally AUSCULTATION: clear to auscultation bilaterally Cardio: COMMON NORMALS: regular rate, regular rhythm and No murmurs present (Cardio) RATE: regular rate RHYTHM: regular rhythm GI: COMMON NORMALS: Normal to inspection, nondistended, normoactive bowel sounds present, Soft to palpation and non-tender PALPATION: Yes Soft to palpation Extremity: COMMON NORMALS: no pedal edema OTHER: Foot protectors Neuro: SENSORIUM/ORIENTATION: Yes alert MENINGEAL SIGNS: Yes no meningeal signs Psych: COMMON NORMALS: mental status grossly normal Skin: OTHER: Heel protectors. Data : 05/26/22 03:45 05/26/22 03:45 A&P Assessment and plan (1) History of ESBL E. coli infection: Complicated urinary tract infection with ESBL E. coli. Appreciate reassessment by urology given recurrence of infection. Continue antibiotic therap with Primaxin y. Midline catheter requested. Follow-up with [facility] urology team. She tells me urology team at [facility] were concerned to go ahead with urostomy due to her overall condition. Status: Acute (2) Pyelonephritis: Status: Acute (3) Suprapubic catheter: Status: Acute (4) Flank pain: Status: Acute (5) Shortness of breath: Status: Acute Plan Shortness of breath: Continues on 4 L nasal cannula. Repeat chest x-ray. Incentive spirometer. Constipation: No BM since Thursday. Continue bowel regimen. Add Dulcolax. Resume Relistor. Discussed with her if no bowel movement consider enema. Type 2 diabetes mellitus, low-dose sliding scale Chronic pain continue fentanyl, morphine Attestations Medical Necessity Statement*: Continue admission for assessment of management of complicated urinary tract infection with ESBL resistant organism. Coding Level of Care Code Acute Ultrasound Applications Specialist for Julien Fwd Diagnoses History of ESBL E. coli infection Z86.19 Pyelonephritis N12 Suprapubic catheter Z93.59 Flank pain R10.9 Shortness of breath R06.02
[2022-05-26 20:39] LABS: Glucose Point of Care 175 mg/dL (70-110)
[2022-05-26] MEDS: atorvastatin 40 mg Tablet 20 MG PO (20:58)
[2022-05-26] MEDS: bisacodyl 10 mg Supp PR (20:59)
[2022-05-26] MEDS: enoxaparin 40 mg/0.4 mL Syringe SUBCUT (20:59)
[2022-05-27] VITALS (10 sets, daily range): BP systolic 108–146; BP diastolic 72–85; PULSE 63–79; RESP 14–18; TEMP 36.4–36.7; O2SAT 95–99
[2022-05-27] MEDS: ondansetron 2 mg/ML SDV 2 mL 4 MG IVP ×3 (00:31→15:09)
[2022-05-27] MEDS: metoclopramide 5 mg/mL SDV 2 mL IVP ×2 (04:53→20:43)
[2022-05-27 05:06] LABS: Basophils % 0.5 %; Eosinophils # 0.3 10^3/uL (0.0-0.8); Eosinophils % 4.5 %; Hematocrit 39.8 % (37.0-47.0); Hemoglobin 12.6 g/dL (11.5-15.3); Lymphocytes % 31.5 %; Mean Corpuscular HGB Conc 31.7 g/dL (30.0-36.0); Mean Corpuscular Hemoglobin 29.5 pg (28.0-34.0); Mean Corpuscular Volume 93.2 fl (81-99); Mean Platelet Volume 10.3 fL (7.4-10.4); Monocytes # 0.7 10^3/uL (0.2-0.9); Monocytes % 11.3 %; Neutrophils # 3.25 10^3/uL (1.8-7.7); Neutrophils % 51.9 %; Nucleated Red Blood Cells % 0 %; Platelet Count 231 10^3/cmm (130-400); Red Blood Count 4.27 10^6/uL (4.1-5.3); Red Cell Distribution Width 14.8 % (12.1-15.1); White Blood Count 6.3 10^3/uL (4.0-10.0)
[2022-05-27 05:39] LABS: Alanine Aminotransferase 10 U/L (0-33); Albumin Level 3.8 g/dL (3.5-5.2); Alkaline Phosphatase 77 IU/L (35-105); Anion Gap 16.6 (5-19); Aspartate Amino Transferase 17 U/L (0-32); Blood Urea Nitrogen 20 mg/dL (6-20); Calcium 9.6 mg/dL (8.5-10.5); Carbon Dioxide 27 mmol/L (22-29); Chloride 95 mmol/L (98-107); Globulin 3.8 g/dL (1.3-4.6); Glomerular Filtration Rate 89.7 mL/min (90-130); Glucose 123 mg/dL (65-115); Magnesium 2.5 mg/dL (1.7-2.3); Osmolality Calculated 284 mOsm/kg (285-295); Phosphorus 3.7 mg/dL (2.5-4.5); Potassium 3.6 mmol/L (3.5-5.1); Sodium 135 mmol/L (136-145); Total Bilirubin 0.2 mg/dL (0.15-1.2); Total Protein 7.6 g/dL (6.6-8.7)
--- NOTE | 2022-05-27 06:00 | XRR_ITS ---
PROCEDURE INFORMATION: Exam: XR Chest Exam date and time: 05/27/2022 5:20 AM Age: 47 years old Clinical indication: Angina and shortness of breath; Additional info: Hypoxia TECHNIQUE: Imaging protocol: Radiologic exam of the chest. Views: 1 view. COMPARISON: CR XR chest 1V portable [id number] 05/22/2022 11:56 AM FINDINGS: Lungs: Streaky bibasilar atelectasis noted. No consolidation. Pleural spaces: Unremarkable. No pleural effusion. No pneumothorax. Heart/Mediastinum: Stable cardiomediastinal silhouette. Bones/joints: Unremarkable. XR/XR chest 1V portable [id number] IMPRESSION: No evidence of active cardiopulmonary disease.
[2022-05-27 06:51] LABS: Glucose Point of Care 143 mg/dL (70-110)
[2022-05-27] MEDS: fentaNYL 50 mcg Patch 1 PATCH TRANSDERMA (09:27)
[2022-05-27] MEDS: tizanidine 4 mg Tablet PO ×2 (09:27→20:39)
[2022-05-27] MEDS: docusate sodium 100 mg Capsule PO ×2 (09:28→17:55)
[2022-05-27] MEDS: sennosides-docusate Tablet 2 TAB PO ×2 (09:28→20:39)
[2022-05-27] MEDS: gabapentin 400 mg Capsule 1200 MG PO ×3 (09:28→20:39)
[2022-05-27] MEDS: fluconazole 100 mg Tablet 200 MG PO (09:28)
[2022-05-27] MEDS: pantoprazole DR 40 mg Tablet PO (09:29)
[2022-05-27] MEDS: sertraline 50 mg Tablet PO (09:29)
[2022-05-27] MEDS: lidocaine 5% Patch 1 PATCH TOPICAL ×2 (09:29→20:40)
[2022-05-27 11:32] LABS: Glucose Point of Care 178 mg/dL (70-110)
[2022-05-27 17:24] LABS: Glucose Point of Care 132 mg/dL (70-110)
[2022-05-27] MEDS: nystatin powder 15 gm Btl 1 APPLIC TOPICAL (17:55)
--- NOTE | 2022-05-27 17:57 | PC.NURSE ---
Patient has saturated a ankush with urine completely twice throughout the day.
[2022-05-27] MEDS: morphine 10 mg/0.5 mL oral liq UD 5 MG PO (20:36)
[2022-05-27] MEDS: atorvastatin 40 mg Tablet 20 MG PO (20:39)
[2022-05-27] MEDS: enoxaparin 40 mg/0.4 mL Syringe SUBCUT (20:40)
[2022-05-27] MEDS: polyethylene glycol 3350 Pkt 17 gm PO (20:52)
--- NOTE | 2022-05-27 20:55 | P.PN_ITS ---
Subjective Subjective: Reports she has had a bowel movement. Concerned about leakage from her urethra, as well as moisture irritation/maceration of her perineum, buttock. Pain in her buttock. Concerned that she is having difficult time commuting to for the necessary care. Vitals/I&O/Wt Last Vital Signs Temp 97.9 F 05/27/22 19:27 Pulse 70 05/27/22 20:49 Resp 18 05/27/22 19:27 BP 134/85 05/27/22 19:27 Pulse Ox 97 05/27/22 20:49 O2 Del Method 05/27/22 20:49 O2 Flow Rate 2 05/27/22 20:49 05/27/22 05/27/22 05/27/22 06:59 14:59 22:59 Intake Total 100 / 1380 100 / 100 340 / 440 Output Total 650 / 1400 Balance -550 / -20 100 / 100 340 / 440 Physical Exam Narrative: Quadriplegic Const: COMMON NORMALS: alert GENERAL APPEARANCE: cooperative ORIENTATION/CONSCIOUSNESS: Yes awake HENMT: COMMON NORMALS: normocephalic, EAC's normal, Normal external nose present and moist oral mucous membranes HEAD & SCALP: normocephalic NOSE: Normal external nose present EXTERNAL AUDITORY CANAL: EAC's normal Neck/C-Spine: COMMON NORMALS: no meningeal signs Chest: CHEST: Yes Symmetrical chest wall rise Resp: COMMON NORMALS: clear to auscultation bilaterally AUSCULTATION: clear to auscultation bilaterally Cardio: COMMON NORMALS: regular rate, regular rhythm and No murmurs present (Cardio) RATE: regular rate RHYTHM: regular rhythm GI: COMMON NORMALS: Normal to inspection, nondistended, normoactive bowel sounds present, Soft to palpation and non-tender PALPATION: Yes Soft to palpation Extremity: COMMON NORMALS: no pedal edema OTHER: Foot protectors Neuro: SENSORIUM/ORIENTATION: Yes alert MENINGEAL SIGNS: Yes no meningeal signs Psych: COMMON NORMALS: mental status grossly normal Skin: OTHER: Heel protectors. Small dimple L heel after healed blood blilster. Data : 05/27/22 04:39 05/27/22 04:39 Micro: Microbiology 05/22/22 16:32 Blood Culture - Final Blood NO GROWTH AFTER 5 DAYS 05/22/22 16:34 Blood Culture - Final Blood NO GROWTH AFTER 5 DAYS A&P Assessment and plan (1) History of ESBL E. coli infection: Continue Primaxin. Midline catheter placed for continued antibiotic therapy. Complicated urinary tract infection with ESBL E. coli. Appreciate reassessment by urology given recurrence of infection. Follow-up with [facility] urology team - will likely benefit with upgrade to a larger bore SP tube. She tells me urology team at [facility] were concerned to go ahead with urostomy due to her overall condition. Status: Acute (2) Pyelonephritis: Status: Acute (3) Suprapubic catheter: Status: Acute (4) Flank pain: Status: Acute (5) Shortness of breath: Status: Acute Plan Shortness of breath: Continues on 4 L nasal cannula. Repeat chest x-ray. Incentive spirometer. Constipation: Had BM. Continue bowel regimen. Relistor. Intertrigo: Nystatin Type 2 diabetes mellitus, low-dose sliding scale Chronic pain continue fentanyl, morphine Attestations Medical Necessity Statement*: Continue admission for assessment of management of recurrent multidrug-resistant urinary tract infection with SP tube in place, disposition arrangements for outpatient IV antibiotic therapy. Coding Level of Care Code Acute Surgical Endoscopist for Julien Fwestela Diagnoses History of ESBL E. coli infection Z86.19 Pyelonephritis N12 Suprapubic catheter Z93.59 Flank pain R10.9 Shortness of breath R06.02
[2022-05-27 21:24] LABS: Glucose Point of Care 140 mg/dL (70-110)
[2022-05-28] MEDS: ondansetron 2 mg/ML SDV 2 mL 4 MG IVP (01:53)
[2022-05-28 04:00] VITALS: BP 101/72; PULSE 71; RESP 18; TEMP 36.4; O2SAT 97
[2022-05-28] MEDS: metoclopramide 5 mg/mL SDV 2 mL IVP (05:42)
--- NOTE | 2022-05-28 05:53 | PM.CONSULT ---
Providers/Reason For Consult Consulting Physician/Specialty*: Urology/Culp Reason for Consult*: RUTIs Chronic but newly placed SP tube Requesting Physician: Dr. Huitron Attending Physician: Simon Huitron History of Present Illness History of Present Illness Rosanne Morales is a 47 year old female well known to me and recently reevaluated on 05/14/22 during hospitalization for UTI. The below is the summary of my last visit: Rosanne Morales is a 47 year old female well-known to me for history of neurogenic bladder related to quadriplegia.? She has had multiple complications with her bladder including intermittent hydronephrosis from bladder distention, history of leukoplakia, spontaneous bladder rupture with sepsis and near experience, and chronic indwelling catheters. She was referred to the [facility] for consideration of urinary diversion.? Decision was made to try suprapubic tube first and on 04/30/2022 she had a 12 Moldovan percutaneous suprapubic tube placed.? Catheter has been functioning well. She is scheduled for catheter change by her urologist at [facility] roughly 1 month to 6 weeks after the initial placement She did develop an infection and was admitted for treatment for that.? In addition she has been having some intermittent drainage through the urethra. Reviewed options.? She was asking as to whether it would make sense to consider closure of her urethra in order to avoid intermittent leaking from the urethra. Overall she is feeling much better since she was admitted and began on antibiotic therapy. Urology recommendations: 1.? Keep appointment as scheduled at [facility] 2.? Encouraged her to hold off on consideration of urethral closure until she has a tube size that is adequate for long-term management of the bladder.? My expectation is when she gets up to a 20+ Moldovan suprapubic tube the resistance through that tube will be significantly lowered which would likely allow spontaneous coaptation of the urethra and less chance of leaking per urethra. ? She was comfortable with that plan. Has not reached the timing as of this admission, selected before her 1st SP tube change already planned at [place] and because of that has not followed up with [facility] yet. Unfortunately since discharge on 05/16/22 she became symptomatic for UTI and was readmitted. Urine grew: E. coli ESBL sensitive to Imipenem. Blood cultures negative. In past, have discussed the difficulty of managing her SCI related Neurogenic bladder and had entertained ileal loop urinary diversion. Initial consultation at [place] elected to trial SP tube 1st which was certainly reasonable. Diversion put off as an alternative unless management with SP tube failed. She is clearly NOT a candidate for no bladder drainage tool. Has suffered a nearly fatal bladder rupture previously under those circumstances. She is now approaching the minimum timeframe preferred for allowing SP tract formation post initial SP tube placement such that changing should be less tenuous with decreased risk of losing access through established tract.. While changing the current tube has the merits of new vs colonized old tube as well as potentially placement of a larger bore catheter reducing likelihood of urethral leakage (path of least resistence phenomenon) she will still be at risk for ongoing UTI. I reviewed with her all of the above. I also reviewed her CT scan. I recommended that for her first suprapubic tube change to be done under anesthesia with switch to a more conventional Dumont catheter. She does have a reduced bladder capacity and this is a very small suprapubic tube so changing under more controlled environment possibly over a wire I think makes more sense. With another week of this catheter in place she will achieve adequate passive dilation and formation of the track to make that much more likely a success and an easier conversion to a larger catheter more quickly. Review of Systems Const: Denies: chills or malaise Eyes: Denies: eye discharge Card: Denies: chest pain Resp: Reports: other; Denies: productive cough or wheezing GI: Reports: other (Some flank pain) : Reports: other (Suprapubic tube in place, functioning well) Musc: Reports: other (Chronic muscle atrophy) Neuro: Reports: other (Quadriplegia) Psych: Denies: memory loss or difficulty concentrating All/Imm: Denies: urticaria Medications/Allergies Home Medications Medication Instructions Recorded Confirmed Last Taken Type ascorbic acid (vitamin C) 1,000 mg 1,000 mg PO BID@04/22/20 05/22/22 05/22/22 History tablet (Vitamin C) lactulose 10 gram/15 mL (15 mL) 30 ml PO TID 04/22/20 05/22/22 05/22/22 History oral solution methenamine hippurate 1 gram tablet 1 g PO BID@04/22/20 05/22/22 05/22/22 History pantoprazole 40 mg tablet,delayed 40 mg PO DAILY 04/22/20 05/22/22 05/22/22 History release metoclopramide HCl 10 mg tablet 10 mg PO Q6H PRN nausea and 05/28/20 05/22/22 05/17/22 Rx vomiting #20 tabs sennosides 8.6 mg-docusate sodium 2 tab PO BID@08,20 05/28/20 05/22/22 05/22/22 History 50 mg tablet (Senna Plus) tizanidine 4 mg tablet 4 mg PO TID@08,14,20 PRN unknown 11/18/20 05/22/22 05/22/22 History alprazolam 0.25 mg tablet (Xanax) 0.25 mg PO TID PRN Anxiety #10 tabs 11/22/20 05/22/22 05/22/22 Rx fentanyl 50 mcg/hr transdermal 1 patch transdermal Q72H #5 ea 11/22/20 05/22/22 05/21/22 Rx patch morphine concentrate 100 mg/5 mL 5 mg (0.25 mL) PO Q4H PRN Pain #30 11/22/20 05/22/22 05/22/22 Rx (20 mg/mL) oral solution mL acetaminophen 500 mg tablet 500 mg PO Q6H PRN Pain 08/17/21 05/22/22 03/26/22 History naloxone 0.4 mg/mL injection 0.4 mg IM Q2M PRN overdose 08/17/21 05/22/22 Unknown History solution polyethylene glycol 3350 17 17 g PO DAILY PRN constipation 08/17/21 05/22/22 05/22/22 History gram/dose oral powder (Miralax) pravastatin 40 mg tablet 40 mg PO BEDTIME 08/17/21 05/22/22 05/21/22 History simethicone 80 mg chewable tablet 80 mg PO .AFTER MEALS 08/17/21 05/22/22 05/21/22 History methylnaltrexone 12 mg/0.6 mL 0.6 ml SUBCUT Q3D PRN Constipation 01/24/22 05/22/22 03/27/22 History subcutaneous syringe (Relistor) ondansetron HCl 4 mg tablet 4 mg PO Q6H PRN Nausea 01/24/22 05/22/22 05/21/22 History docusate sodium 100 mg capsule 100 mg PO BID 02/11/22 05/22/22 05/22/22 History (Colace) gabapentin 600 mg tablet 1,200 mg PO TID 02/11/22 05/22/22 05/22/22 History calcium carbonate 400 mg calcium 400 mg PO DAILY PRN Heartburn 03/06/22 05/22/22 Unknown History (1,000 mg) chewable tablet (Tums Ultra) insulin lispro 100 unit/mL See Rx Instructions .Route .COMPLEX 03/06/22 05/22/22 05/22/22 History subcutaneous pen (Humalog KwikPen (U-100) Insulin) pregabalin 50 mg capsule (Lyrica) 50 mg PO BID 03/06/22 05/22/22 05/22/22 History magnesium hydroxide 400 mg/5 mL 5 ml PO DAILY #355 mL 03/12/22 05/22/22 05/22/22 Rx oral suspension (Milk of Magnesia) potassium chloride 20 mEq 20 meq PO DAILY 03/28/22 05/22/22 05/22/22 History tablet,extended release lidocaine 5 % topical patch 1 patch topical Q12H 05/12/22 05/22/22 05/22/22 History metformin 1,000 mg tablet 1,000 mg PO BID 05/12/22 05/22/22 05/22/22 History miconazole nitrate 2 % vaginal 1 applic vaginal BID 05/12/22 05/22/22 Unknown History cream (Monistat 7) sertraline 50 mg tablet 50 mg PO DAILY 05/12/22 05/22/22 05/21/22 History fluconazole 200 mg tablet 200 mg PO DAILY 10 days #10 tabs 05/16/22 05/22/22 05/22/22 Rx Allergies Allergy/AdvReac Type Severity Reaction Status Date / Time No Known Allergies Allergy Verified 05/22/22 12:14 Current Medications Generic Name Dose Route Start Last Admin Trade Name Freq PRN Reason Stop Dose Admin Atorvastatin Calcium 20 mg 05/23/22 21:00 05/27/22 20:39 Atorvastatin 40 Mg Tablet PO 20 mg BEDTIME ELISEO Administration Docusate Sodium 100 mg 05/22/22 21:50 05/27/22 17:55 Docusate Sodium 100 Mg Capsule PO 100 mg BID ELISEO Administration Enoxaparin Sodium 40 mg 05/26/22 21:00 05/27/22 20:40 Enoxaparin 40 Mg/0.4 Ml Syringe SUBCUT 40 mg Q24H ELISEO Administration Fentanyl 1 patch 05/24/22 08:00 05/27/22 09:27 Fentanyl 50 Mcg Patch TRANSDERMA 1 patch Q72H ELISEO Administration Fluconazole 200 mg 05/23/22 09:00 05/27/22 09:28 Fluconazole 100 Mg Tablet PO 200 mg DAILY ELISEO Administration Gabapentin 1,200 mg 05/23/22 09:00 05/27/22 20:39 Gabapentin 400 Mg Capsule PO 1,200 mg TID ELISEO Administration Imipenem/Cilastatin Sodium 500 100 mls @ 200 mls/hr 05/24/22 08:15 05/28/22 02:20 mg/ Dextrose IV Infused Q6H [facility] Infusion Protocol Insulin Human Lispro 0 unit 05/22/22 21:50 05/27/22 17:35 Insulin Lispro 100 Unit/1 Ml SUBCUT Not Given TIDWM [facility] Protocol Lidocaine 1 patch 05/24/22 13:15 05/27/22 20:40 Lidocaine 5% Patch TOPICAL 1 patch [id number] ELISEO Administration Metoclopramide HCl 5 mg 05/25/22 09:21 05/28/22 05:42 Metoclopramide 5 Mg/Ml Sdv 2 Ml IVP 5 mg Q6H PRN Administration NAUSEA Morphine Sulfate 5 mg 05/22/22 21:57 05/27/22 20:36 Morphine 10 Mg/0.5 Ml Oral Liq Ud PO 5 mg Q4H PRN Administration Pain Nystatin 1 applic 05/27/22 18:00 05/27/22 17:55 Nystatin Powder 15 Gm Btl TOPICAL 1 applic BID ELISEO Administration Ondansetron HCl 4 mg 05/25/22 12:51 05/28/22 01:53 Ondansetron 2 Mg/Ml Sdv 2 Ml IVP 4 mg Q4H PRN Administration NAUSEA AND VOMITING Pantoprazole Sodium 40 mg 05/23/22 09:00 05/27/22 09:[address] 40 Mg Tablet PO 40 mg DAILY ELISEO Administration Polyethylene Glycol 17 gm 05/22/22 22:02 05/27/22 20:52 Polyethylene Glycol 3350 Pkt 17 Gm PO 17 gm DAILY PRN Administration constipation Senna/Docusate Sodium 2 tab 05/22/22 21:50 05/27/22 20:39 Sennosides-Docusate Tablet PO 2 tab BID@ ELISEO Administration Sertraline HCl 50 mg 05/23/22 09:00 05/27/22 09:29 Sertraline 50 Mg Tablet PO 50 mg DAILY ELISEO Administration Tizanidine HCl 4 mg 05/22/22 21:50 05/27/22 20:39 Tizanidine 4 Mg Tablet PO 4 mg TID@,,20 PRN Administration unknown PFSH Acute PFSH: Medical History Chronic indwelling Dumont catheter Hydronephrosis Neurogenic bladder Perforated abdominal viscus Condition resolved Post-traumatic quadriplegia PVD (peripheral vascular disease) Quadriplegia Recurrent sepsis due to urinary tract infection UTI (urinary tract infection) Surgical History H/O bladder repair surgery H/O cystoscopy H/O partial cystectomy H/O Spinal surgery History of hysterectomy History of partial gastrectomy Family History Other CAD (coronary artery disease) Diabetes Hypertension Social History Alcohol intake: never Household members: spouse Housing: House Marital status: Current occupational status: disabled Vitals/I&O/Wt Last Vital Signs Temp 97.6 F 05/28/22 04:00 Pulse 71 05/28/22 04:00 Resp 18 05/28/22 04:00 BP 101/72 05/28/22 04:00 Pulse Ox 97 05/28/22 04:00 O2 Del Method 05/27/22 20:49 O2 Flow Rate 2 05/27/22 20:49 05/27/22 05/27/22 05/28/22 14:59 22:59 06:59 Intake Total 100 / 100 440 / 540 100 / 640 Output Total 1200 / 1200 Balance 100 / 100 440 / 540 -1100 / -560 Physical Exam Const: COMMON NORMALS: no acute distress and patient oriented x3 HENMT: COMMON NORMALS: normocephalic HEAD & SCALP: normocephalic Eye: COMMON NORMALS: negative for no scleral icterus Chest: OTHER: Normal chest movement Resp: OTHER: No audible wheezing. No labored respiration Cardio: COMMON NORMALS: regular rate RATE: regular rate GI: COMMON NORMALS: Soft to palpation PALPATION: Yes Soft to palpation : OTHER: Suprapubic tube is in good position. Draining clear yellow urine. Neuro: COMMON NORMALS: patient oriented x3 Skin: OTHER: Suprapubic Tube Data : 05/28/22 05:24 05/28/22 05:24 Micro: Microbiology 05/22/22 16:32 Blood Culture - Final Blood NO GROWTH AFTER 5 DAYS 05/22/22 16:34 Blood Culture - Final Blood NO GROWTH AFTER 5 DAYS A&P Assessment and plan (1) Neurogenic bladder: Managed currently with recently placed (<4 weeks ago) suprapubic tube. Is only a 12 Moldovan catheter. Status: Acute (2) Suprapubic catheter: See above Status: Acute (3) Urinary incontinence: Likely related to higher resistance from small suprapubic tube and more patulous urethral changes from chronic indwelling Dumont prior to the suprapubic tube. Hopefully that will resolve once we have had a chance to work up to a more substantial tube diameter. Status: Acute (4) Pyelonephritis: Seems to clinically be responding well Occurred after recent course of antibiotics and chronic use of METHENAMINE HIPPURATE plus vitamin C Status: Acute Plan 1. Maintain current suprapubic tube until next week at which time I would recommend changing it to a larger catheter under anesthesia 2. She will need to continue antibiotics appropriate for cultures until after that is completed. 3. Once the tract is well formed and stable we can more rapidly increase the diameter of her catheters to achieve a catheter with much less drainage resistance which may help with her incontinence as well as potentially RUTIs but I expect she will need some sort of suppression regimen at some point. Coding Level of Care Code Acute Technology Methodology Consultant for Julien Fwestela Diagnoses Neurogenic bladder N31.9 Suprapubic catheter Z93.59 Urinary incontinence R32 Pyelonephritis N12
[2022-05-28 05:59] VITALS: PULSE 68
[2022-05-28 06:04] LABS: Basophils % 0.6 %; Eosinophils # 0.2 10^3/uL (0.0-0.8); Eosinophils % 4.2 %; Hematocrit 38.3 % (37.0-47.0); Hemoglobin 12.3 g/dL (11.5-15.3); Lymphocytes # 1.4 10^3/uL (0.8-4.8); Lymphocytes % 29.3 %; Mean Corpuscular HGB Conc 32.1 g/dL (30.0-36.0); Mean Corpuscular Hemoglobin 29.5 pg (28.0-34.0); Mean Corpuscular Volume 91.8 fl (81-99); Mean Platelet Volume 10.5 fL (7.4-10.4); Monocytes # 0.4 10^3/uL (0.2-0.9); Monocytes % 8.8 %; Neutrophils % 56.9 %; Nucleated Red Blood Cells % 0 %; Platelet Count 225 10^3/cmm (130-400); Red Blood Count 4.17 10^6/uL (4.1-5.3); Red Cell Distribution Width 14.6 % (12.1-15.1); White Blood Count 4.8 10^3/uL (4.0-10.0)
[2022-05-28 06:29] LABS: Glucose Point of Care 159 mg/dL (70-110)
[2022-05-28 06:43] LABS: Alanine Aminotransferase 7 U/L (0-33); Albumin Level 3.7 g/dL (3.5-5.2); Alkaline Phosphatase 75 IU/L (35-105); Anion Gap 14.3 (5-19); Aspartate Amino Transferase 15 U/L (0-32); Blood Urea Nitrogen 16 mg/dL (6-20); Calcium 9.2 mg/dL (8.5-10.5); Carbon Dioxide 27 mmol/L (22-29); Chloride 96 mmol/L (98-107); Globulin 3.7 g/dL (1.3-4.6); Glomerular Filtration Rate 107.2 mL/min (90-130); Glucose 126 mg/dL (65-115); Magnesium 2.5 mg/dL (1.7-2.3); Osmolality Calculated 281 mOsm/kg (285-295); Phosphorus 3.4 mg/dL (2.5-4.5); Potassium 3.3 mmol/L (3.5-5.1); Sodium 134 mmol/L (136-145); Total Bilirubin 0.2 mg/dL (0.15-1.2); Total Protein 7.4 g/dL (6.6-8.7)
[2022-05-28] MEDS: morphine 10 mg/0.5 mL oral liq UD 5 MG PO ×2 (07:49→15:08)
[2022-05-28] MEDS: tizanidine 4 mg Tablet PO ×2 (07:50→15:09)
[2022-05-28 08:00] VITALS: BP 147/87; PULSE 80; O2SAT 98
--- NOTE | 2022-05-28 09:05 | PC.SOCIAL ---
IMM update IMM updated with patient. Verbalized an understanding. Copy Pg 2 provided. Initialled, dated, timed, and placed in chart.
[2022-05-28] MEDS: insulin lispro 100 unit/1 mL SUBCUT ×2 (09:50→12:58)
[2022-05-28] MEDS: fluconazole 100 mg Tablet 200 MG PO (09:50)
[2022-05-28] MEDS: sennosides-docusate Tablet 2 TAB PO (09:50)
[2022-05-28] MEDS: docusate sodium 100 mg Capsule PO (09:51)
[2022-05-28] MEDS: gabapentin 400 mg Capsule 1200 MG PO ×2 (09:51→15:09)
[2022-05-28] MEDS: lidocaine 5% Patch 1 PATCH TOPICAL (09:51)
[2022-05-28] MEDS: pantoprazole DR 40 mg Tablet PO (09:51)
[2022-05-28] MEDS: ALPRAZolam 0.5 mg Tablet 0.25 MG PO ×2 (09:51→15:09)
[2022-05-28] MEDS: sertraline 50 mg Tablet PO (09:52)
[2022-05-28] MEDS: nystatin powder 15 gm Btl 1 APPLIC TOPICAL (09:52)
[2022-05-28 11:25] LABS: SARS Covid-2 Antigen Negative (Negative)
[2022-05-28 11:52] LABS: Glucose Point of Care 143 mg/dL (70-110)
--- NOTE | 2022-05-28 13:40 | P.DS_ITS ---
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 She was restarted on antibiotic treatment with Primaxin. Her PICC line was initially removed for additional assessment due to concern of possibility of bloodstream infection, but so far there has been no growth on blood cultures. Repeat urine culture grew ESBL E. coli. She was also started on Diflucan, but is also noted Nanette glabrata 30-40,000 CFU which may also help explain her ongoing symptoms. She is started and will complete a course of caspofungin. She was additionally reassessed by urology. She has not yet reached a safe window for upgrade of the size of the suprapubic catheter, but will be getting there soon within about a week or so. She had expressed that she would if possible prefer to stay locally for replacement of the tube, and as such is going to be seen by Dr. Culp in office in 1 week. She will continue on antibiotic coverage until then, decision may be considered whether antibiotic therapy may need to be extended due to recurrent infections, hostile urinary bladder. Her suprapubic tube appears clean, without any surrounding erythema, no leakage around the tube. For now urethral closure is not recommended as her symptoms of urethral leakage may improve significantly with upgrades in her suprapubic tube. Keep dry to prevent further skin breakdown. Continue to reposition frequently. Physical Exam Narrative: Quadriplegic Const: COMMON NORMALS: alert GENERAL APPEARANCE: cooperative ORIENTATION/CONSCIOUSNESS: Yes awake HENMT: COMMON NORMALS: normocephalic, EAC's normal, Normal external nose present and moist oral mucous membranes HEAD & SCALP: normocephalic NOSE: Normal external nose present EXTERNAL AUDITORY CANAL: EAC's normal Neck/C-Spine: COMMON NORMALS: no meningeal signs Chest: CHEST: Yes Symmetrical chest wall rise Resp: COMMON NORMALS: clear to auscultation bilaterally AUSCULTATION: clear to auscultation bilaterally Cardio: COMMON NORMALS: regular rate, regular rhythm and No murmurs present (Cardio) RATE: regular rate RHYTHM: regular rhythm GI: COMMON NORMALS: Normal to inspection, nondistended, normoactive bowel sounds present, Soft to palpation and non-tender PALPATION: Yes Soft to palpation Extremity: COMMON NORMALS: no pedal edema OTHER: Foot protectors Neuro: SENSORIUM/ORIENTATION: Yes alert MENINGEAL SIGNS: Yes no meningeal signs Psych: COMMON NORMALS: mental status grossly normal Skin: OTHER: Heel protectors. Small dimple L heel after healed blood blilster. Discharge Data Studies Completed and Pending Completed Studies During Hospitalization Category Date Time Status CT abdomen pelvis w con* [id number] Routine Cat Scan 05/24/22 13:11 Completed CTA chest [CT angio chest PE protcl [id number]] Urgent Cat Scan 05/22/22 17:08 Completed XR chest 1V portable [id number] Routine Exams 05/27/22 06:00 Completed XR chest 1V portable [id number] Urgent Exams 05/22/22 11:51 Completed US venous duplex lower extremity bilat [CV venous Ultrasound 05/22/22 21:50 [place] [id number]] Urgent Radiology Impressions Chest CTA 05/22/22 17:08 IMPRESSION: 1. No evidence of pulmonary embolism. 2. No aortic aneurysm or aortic dissection noted. 3. There is a catheter present in the right subclavian artery, with distal tip in the proximal descending thoracic aorta. 4. Nonspecific atelectasis versus consolidation in the bilateral lower lobes. Mild atelectasis in the right middle lobe and lingula. Venous Duplex 05/22/22 21:50 IMPRESSION: No evidence of deep vein thrombosis, bilateral lower extremities. Abdomen/Pelvis CT 05/24/22 13:11 IMPRESSION: There are postoperative bladder changes with a percutaneous catheter in the bladder. Bladder wall is ill-defined. This is nonspecific and may represent bladder outlet obstruction, inflammation or infection. Neoplastic process is included in the differential. Chest X-Ray 05/27/22 06:00 IMPRESSION: No evidence of active cardiopulmonary disease. Laboratory Results WBC 4.8 10^3/uL (4.0-10.0) 05/28/22 05:24 Corrected WBC Cancelled 05/22/22 13:17 RBC 4.17 10^6/uL (4.1-5.3) 05/28/22 05:24 Hgb 12.3 g/dL (11.5-15.3) 05/28/22 05:24 Hct 38.3 % (37.0-47.0) 05/28/22 05:24 MCV 91.8 fl (81-99) 05/28/22 05:24 MCH 29.5 pg (28.0-34.0) 05/28/22 05:24 MCHC 32.1 g/dL (30.0-36.0) 05/28/22 05:24 RDW 14.6 % (12.1-15.1) 05/28/22 05:24 Plt Count 225 10^3/cmm (130-400) 05/28/22 05:24 MPV 10.5 fL (7.4-10.4) H 05/28/22 05:24 Gran % Cancelled 05/22/22 13:17 Neut % (Auto) 56.9 % 05/28/22 05:24 Lymph % (Auto) 29.3 % 05/28/22 05:24 [place] % (Auto) 8.8 % 05/28/22 05:24 Eos % (Auto) 4.2 % 05/28/22 05:24 Baso % (Auto) 0.6 % 05/28/22 05:24 Neut # (Auto) 2.70 10^3/uL (1.8-7.7) 05/28/22 05:24 Lymph # (Auto) 1.4 10^3/uL (0.8-4.8) 05/28/22 05:24 [place] # (Auto) 0.4 10^3/uL (0.2-0.9) 05/28/22 05:24 Eos # (Auto) 0.2 10^3/uL (0.0-0.8) 05/28/22 05:24 Baso # (Auto) 0.0 10^3/uL (0.0-0.1) 05/28/22 05:24 Absolute Gran (auto) Cancelled 05/22/22 13:17 Nucleated RBC % (auto) 0 % 05/28/22 05:24 Nucleated RBCs # 0.0 /100WBC 05/28/22 05:24 ESR 53 mm/hr (0-15) H 05/22/22 14:21 D-Dimer 0.96 ug/mIFEU (0-0.59) H 05/22/22 16:32 Specimen Type Arterial 05/22/22 15:58 Sample Site Brachial, left 05/22/22 15:58 ABG pH 7.32 (7.35-7.45) L 05/22/22 15:58 ABG pCO2 54.2 mmHg (35-45) H 05/22/22 15:58 ABG pO2 125.0 mmHg (80.0-100.0) H 05/22/22 15:58 ABG HCO3 27.6 mmol/L (22-26) H 05/22/22 15:58 ABG Base Excess 0.7 mmol/L (-2.0-2.0) 05/22/22 15:58 Sabino Test N/a 05/22/22 15:58 Hematocrit 35.7 % (37-47) L 05/22/22 15:58 O2 Delivery Device Nc 05/22/22 15:58 O2 Liters/Min 4.5 % 05/22/22 15:58 FiO2 38.0 % 05/22/22 15:58 Tavern Keeper ID glc 05/22/22 15:58 Sodium 134 mmol/L (136-145) L 05/28/22 05:24 Potassium 3.3 mmol/L (3.5-5.1) L 05/28/22 05:24 Chloride 96 mmol/L (98-107) L 05/28/22 05:24 Carbon Dioxide 27 mmol/L (22-29) 05/28/22 05:24 Anion Gap 14.3 (5-19) 05/28/22 05:24 BUN 16 mg/dL (6-20) 05/28/22 05:24 Creatinine 0.6 mg/dL (0.5-0.9) 05/28/22 05:24 GFR Calculation 107.2 mL/min (90-130) 05/28/22 05:24 Glucose 126 mg/dL (65-115) H 05/28/22 05:24 POC Glucose 143 mg/dL (70-110) H 05/28/22 11:41 Calculated Osmolality 281 mOsm/kg (285-295) L 05/28/22 05:24 Lactic Acid Cancelled 05/22/22 16:32 Lactate 1.4 mmol/L (0.5-2.2) 05/22/22 16:32 Calcium 9.2 mg/dL (8.5-10.5) 05/28/22 05:24 Phosphorus 3.4 mg/dL (2.5-4.5) 05/28/22 05:24 Magnesium 2.5 mg/dL (1.7-2.3) H 05/28/22 05:24 Total Bilirubin 0.2 mg/dL (0.15-1.2) 05/28/22 05:24 AST 15 U/L (0-32) 05/28/22 05:24 ALT 7 U/L (0-33) 05/28/22 05:24 Alkaline Phosphatase 75 IU/L (35-105) 05/28/22 05:24 Troponin T Baseline 10 ng/L (0-10) 05/22/22 13:17 Troponin T 120 Minute 11.53 ng/L (0-10) H 05/22/22 16:40 Delta Troponin T 1.53 ABS# (0-10) 05/22/22 16:40 C-Reactive Protein 24.6 mg/L (0.0-4.9) H 05/22/22 13:17 NT-Pro-B Natriuret Pep 89 pg/mL (0-125) 05/22/22 13:17 Total Protein 7.4 g/dL (6.6-8.7) 05/28/22 05:24 Albumin 3.7 g/dL (3.5-5.2) 05/28/22 05:24 Globulin 3.7 g/dL (1.3-4.6) 05/28/22 05:24 Lipase 24 U/L (13-60) 05/22/22 13:17 Procalcitonin 0.03 ng/mL (0-0.5) 05/22/22 13:17 Urine Color Yellow (Yellow) 05/22/22 11:40 Urine Appearance Hazy (CLEAR) A 05/22/22 11:40 Urine pH 7 (5-7) 05/22/22 11:40 Ur Specific [place] 1.005 (1.005-1.030) 05/22/22 11:40 Urine Protein Neg (Negative) 05/22/22 11:40 Urine Glucose (UA) Norm (Normal) 05/22/22 11:40 Urine Ketones Negative (Negative) 05/22/22 11:40 Urine Blood 2+ (Negative) H 05/22/22 11:40 Urine Nitrate Negative (Negative) 05/22/22 11:40 Urine Bilirubin Neg (Negative) 05/22/22 11:40 Urine Urobilinogen Norm mg/dL (Negative) 05/22/22 11:40 Ur Leukocyte Esterase 2+ (Negative) H 05/22/22 11:40 Urine RBC 0-4 /hpf (0-2) H 05/22/22 11:40 Urine WBC Too numerous to cnt /hpf (0-5) H 05/22/22 11:40 Ur Squamous Epith Cells 0-4 /hpf (0-5) H 05/22/22 11:40 Amorphous Sediment Not Reportable 05/22/22 11:40 Urine Bacteria 2+ /hpf (NONE) H 05/22/22 11:40 SARS-CoV-2 Ag (Rapid) Negative (Negative) 05/28/22 10:34 Vitals Last Vital Signs Temp 97.6 F 05/28/22 04:00 Pulse 80 05/28/22 08:00 Resp 18 05/28/22 04:00 BP 147/87 05/28/22 08:00 Pulse Ox 98 05/28/22 08:00 O2 Del Method 05/27/22 20:49 O2 Flow Rate 2 05/27/22 20:49 Discharge Plan Discharge Patient Disposition: Xfer SNF Condition: Stable Prescriptions: New Nystop 100,000 unit/gram Powder 1 applic topical BID 14 Days Qty: 30 0RF imipenem-cilastatin 500 mg recon soln 1 ml IV Q6H 14 Days Qty: 56 0RF Rx Instructions: administer over 40-60 mins Continued ascorbic acid (vitamin C) [Vitamin C] 1,000 mg Tablet 1,000 mg PO BID@08,20 methenamine hippurate 1 gram Tablet 1 g PO BID@08,20 pantoprazole 40 mg Tablet,Delayed Release (Dr/Ec) 40 mg PO DAILY lactulose 10 gram/15 mL (15 mL) Solution 30 ml PO TID sennosides-docusate sodium [Senna Plus] 8.6-50 mg Tablet 2 tab PO BID@08,20 metoclopramide HCl 10 mg tablet 10 mg PO Q6H PRN (Reason: nausea and vomiting) Qty: 20 0RF pravastatin 40 mg Tablet 40 mg PO BEDTIME naloxone 0.4 mg/mL Solution 0.4 mg IM Q2M PRN (Reason: overdose) acetaminophen 500 mg Tablet 500 mg PO Q6H PRN (Reason: Pain) simethicone 80 mg Tablet,Chewable 80 mg PO .AFTER MEALS polyethylene glycol 3350 [Miralax] 17 gram/dose powder 17 g PO DAILY PRN (Reason: constipation) tizanidine 4 mg Tablet 4 mg PO TID@08,14,20 PRN (Reason: unknown) fentanyl 50 mcg/hr Patch 72 Hour 1 patch TRANSDERMAL Q72H Qty: 5 0RF morphine concentrate 100 mg/5 mL (20 mg/mL) solution 5 mg PO Q4H PRN (Reason: Pain) Qty: 30 0RF alprazolam [Xanax] 0.25 mg Tablet 0.25 mg PO TID PRN (Reason: Anxiety) Qty: 10 0RF ondansetron HCl 4 mg Tablet 4 mg PO Q6H PRN (Reason: Nausea) Relistor 12 mg/0.6 mL Syringe 0.6 ml SUBCUT Q3D PRN (Reason: Constipation) gabapentin 600 mg tablet 1,200 mg PO TID docusate sodium [Colace] 100 mg Capsule 100 mg PO BID insulin lispro [Humalog KwikPen Insulin] 100 unit/mL Insulin Pen See Rx Instructions .ROUTE .COMPLEX Rx Instructions: SLIDING SCALE- BLOOD SUGAR 125-150 GIVE 2 UNITS, 151-200 GIVE 4 UNITS, 201- 250 GIVE 6 UNITS, 251-300 GIVE 8 UNITS, 301-350 GIVE 10 UNITS, 351-400 GIVE 12 UNITS pregabalin [Lyrica] 50 mg Capsule 50 mg PO BID calcium carbonate [Tums Ultra] 400 mg calcium (1,000 mg) Tablet,Chewable 400 mg PO DAILY PRN (Reason: Heartburn) magnesium hydroxide [Milk of Magnesia] 400 mg/5 mL suspension 5 ml PO DAILY Qty: 355 0RF potassium chloride 20 mEq Tablet Extended Release 20 meq PO DAILY miconazole nitrate [Monistat 7] 2 % Cream 1 applic VAGINAL BID metformin 1,000 mg Tablet 1,000 mg PO BID lidocaine 5 % Adhesive Patch,Medicated 1 patch TOPICAL Q12H Rx Instructions: leave on most painful area for up to 12 hrs sertraline 50 mg Tablet 50 mg PO DAILY fluconazole 200 mg tablet 200 mg PO DAILY 10 Days Qty: 10 0RF Discharge Orders: Discharge Order (Routine); Ordered 05/28/22 Ordered By: Simon Huitron Referrals: Primary, provider [Other] - 4-7 days [facility] [Provider Group] - 2 weeks (Recurrent UTI, ESBL E coli) Hilton Culp MD [Physician] - 1 week Discharge Diet: Diabetic Discharge Activity: Increase activity as tolerated Patient Instructions: Nystatin (On the skin), Imipenem/Cilastatin (By injection), Opioid Safety Activity Restrictions/Additional Instructions: Continue Primaxin for 14 days. Remove midline catheter once antibiotic therapy is complete. Follow-up with Dr. Culp for catheter exchange in 1 week. Keep dry. Reposition every 2 hours. Continue bowel regimen, avoid constipation. Continue oxygen 2 L nasal cannula, wean off as tolerating. Continue symptom spirometer. Discharge Attestations Time Spent in Discharge Care*: greater than 30 min Status at Discharge: Cognitive status at discharge: cognitively intact , Behavioral status at discharge: cooperative , Quality Metrics Clinical Quality Measures [ No reported AMI, CVA or VTE this stay] Coding Level of Care Code Acute Chg FW DC note Diagnoses Neurogenic bladder N31.9 Suprapubic catheter Z93.59 Urinary incontinence R32 Pyelonephritis N12
[2022-05-28 14:00] VITALS: PULSE 67
[2022-05-28 17:26] LABS: Glucose Point of Care 95 mg/dL (70-110)
--- NOTE | 2022-05-28 17:47 | PC.NURSE ---
Discharge Note Patient discharged to [facility] via stretcher accompanied by ambulance personnel. Discharge instructions reviewed with patient and/or bilingual call center representative. Mobile pharmacy medications and/or prescriptions provided. Belongings/home medications returned.
[2022-05-28 17:48] VITALS: PULSE 67
== END 2022-05-28 17:30 | disposition skilled nursing facility (03) | DRG 698 ==
LOC: ER 11:35 → MEDSURG 20:44
PROVIDERS: Admitting Provider Family Medicine; Emergency Provider Emergency Medicine; Visit Provider Internal Medicine
DX: T83.511A Infection and inflammatory reaction due to indwelling urethral catheter, initial encounter (principal); G82.50 Quadriplegia, unspecified; N12 Tubulo-interstitial nephritis, not specified as acute or chronic; Z16.24 Resistance to multiple antibiotics; Y73.8 Miscellaneous gastroenterology and urology devices associated with adverse incidents, not elsewhere classified; Z87.440 Personal history of urinary (tract) infections; G89.29 Other chronic pain; Z74.01 Bed confinement status; N31.9 Neuromuscular dysfunction of bladder, unspecified; E11.51 Type 2 diabetes mellitus with diabetic peripheral angiopathy without gangrene; Z79.84 Long term (current) use of oral hypoglycemic drugs; Z79.4 Long term (current) use of insulin; Z79.891 Long term (current) use of opiate analgesic; B37.9 Candidiasis, unspecified; B96.20 Unspecified Escherichia coli [E. coli] as the cause of diseases classified elsewhere; R06.02 Shortness of breath; M25.511 Pain in right shoulder
CPT/HCPCS: 36415; 36416; 36569; 36600; 71045; 71275; 74177; 80053; 81001; 82803; 82962; 83605; 83690; 83735; 83880; 84100; 84145; 84484; 85025; 85378; 85651; 86140; 87040; 87077; 87086; 87186; 87426; 93005; 93970; 94664; 96365; 96367; 96372; 96375; 96376; 99285; C1751; G0378; J0637; J0743; J1170; J1650; J1815; J1940; J2185; J2270; J2405; J2765; J3370; J7030; J7050; Q9967

== ENCOUNTER 2022-06-02 09:52 | Emergency (ER) | payer MEDICARE, MEDICAID, SELFPAY ==
[2022-06-02 09:55] VITALS: BP 112/68; PULSE 72; RESP 18; TEMP 36.8; O2SAT 97; BMI 24.9
--- NOTE | 2022-06-02 10:34 | XRR_ITS ---
PROCEDURE INFORMATION: Exam: XR Abdomen Exam date and time: 06/02/2022 10:38 AM Age: 47 years old Clinical indication: Other: Abdominal distention; Additional info: Abdominal distention/ possible obstruction TECHNIQUE: Imaging protocol: Radiologic exam of the abdomen. Views: 2 Views. Upright and supine views. COMPARISON: CT abdomen pelvis w con* [id number] 05/24/2022 6:10 PM FINDINGS: Tubes, catheters and devices: Suprapubic catheter is in place. Gastrointestinal tract: Nonobstructive bowel gas pattern. Moderate stool burden in the transverse colon. Intraperitoneal space: Surgical clips in the left upper quadrant. Bones/joints: Unremarkable for age. XR/XR abdomen min 2V [id number] IMPRESSION: No acute findings.
[2022-06-02 10:46] LABS: Basophils # 0.1 10^3/uL (0.0-0.1); Eosinophils # 0.4 10^3/uL (0.0-0.8); Eosinophils % 5.8 %; Lymphocytes # 1.1 10^3/uL (0.8-4.8); Lymphocytes % 18.7 %; Mean Corpuscular HGB Conc 31.6 g/dL (30.0-36.0); Mean Corpuscular Hemoglobin 29.6 pg (28.0-34.0); Mean Corpuscular Volume 93.6 fl (81-99); Mean Platelet Volume 10.6 fL (7.4-10.4); Monocytes # 0.3 10^3/uL (0.2-0.9); Monocytes % 5.3 %; Neutrophils # 4.12 10^3/uL (1.8-7.7); Neutrophils % 68.9 %; Nucleated Red Blood Cells % 0 %; Platelet Count 261 10^3/cmm (130-400); Red Blood Count 4.06 10^6/uL (4.1-5.3); Red Cell Distribution Width 15.9 % (12.1-15.1)
[2022-06-02 11:14] LABS: Alanine Aminotransferase 11 U/L (0-33); Albumin Level 3.7 g/dL (3.5-5.2); Alkaline Phosphatase 70 IU/L (35-105); Anion Gap 14.6 (5-19); Aspartate Amino Transferase 19 U/L (0-32); Blood Urea Nitrogen 11 mg/dL (6-20); Calcium 9.1 mg/dL (8.5-10.5); Carbon Dioxide 27 mmol/L (22-29); Chloride 101 mmol/L (98-107); Globulin 3.1 g/dL (1.3-4.6); Glomerular Filtration Rate 107.2 mL/min (90-130); Glucose 94 mg/dL (65-115); Lipase 23 U/L (13-60); Osmolality Calculated 285 mOsm/kg (285-295); Potassium 4.6 mmol/L (3.5-5.1); Sodium 138 mmol/L (136-145); Total Bilirubin 0.2 mg/dL (0.15-1.2); Total Protein 6.8 g/dL (6.6-8.7)
[2022-06-02] MEDS: ondansetron 2 mg/ML SDV 2 mL 4 MG IVP (11:15)
[2022-06-02 11:19] LABS: Add Urine Microscopic? NO; Charge for UA Resulting for Rev
[2022-06-02 11:42] LABS: Bilirubin Urine Neg (Negative); Blood Urine Neg (Negative); Glucose Urine UA Norm (Normal); Ketones Urine 1+ (Negative); Leukocyte Esterase Urine Negative (Negative); Nitrate Urine Negative (Negative); Protein Urine Neg (Negative); Specific Gravity, Urine 1.005 (1.005-1.030); Urine Appearance Clear (CLEAR); Urine Color Straw (Yellow); Urobilinogen Urine Norm (Negative); pH Urine 7 (5-7)
--- NOTE | 2022-06-02 12:47 | W.ED.ABDPA2 ---
HPI - Abdominal Pain General: Chief Complaint: Abdominal Pain Stated Complaint: N/V/ ABDOMINAL PAIN Time Seen by Provider: 06/02/22 09:56 Source: patient History of Present Illness: 47-year-old female resident of a correction she is paraplegic is complaining of some bloating and discomfort. She has some nausea and has vomited a couple times. She denies any medic easier melena hematemesis. She is concerned she has a bowel obstruction, her last bowel movement was yesterday denies any dysuria urgency or frequency.. MD elicited complaint: abdominal pain Pertinent past history: none Onset (ago): minute(s) Pain Consistency: intermittent Location: Diffuse Severity: mild Quality: cramping Radiation: none Exacerbating factors: nothing Relieving factors: nothing Associated Symptoms: Reports bloating and GI cramping; Denies belching, change in bowel habits, change in stool character, chills, coffee ground emesis, constipation, diarrhea, dyspepsia, dysuria, excessive flatus, fever(s), heartburn, hematochezia, hematuria, hematemesis, fecal incontinence, loose stools, melena, nausea, poor appetite, syncope and vomiting Review of Systems Const: Denies: fever(s), chills, fatigue or malaise ENMT: Denies: throat pain, ear or mastoid pain, nasal discharge or nasal congestion Card: Denies: syncope Resp: Denies: dyspnea, productive cough or non-productive cough GI: Reports: bloating and GI cramping; Denies: nausea, vomiting, hematemesis, coffee ground emesis, heartburn, diarrhea, constipation, belching, excessive flatus, fecal incontinence, change in bowel habits, change in stool character, hematochezia or melena : Denies: dysuria or hematuria Skin/Breast: Denies: rash or pruritus PFSH ED PFSH: Medical History Chronic indwelling Dumont catheter Hydronephrosis Neurogenic bladder Perforated abdominal viscus Condition resolved Post-traumatic quadriplegia PVD (peripheral vascular disease) Quadriplegia Recurrent sepsis due to urinary tract infection UTI (urinary tract infection) Surgical History H/O bladder repair surgery H/O cystoscopy H/O partial cystectomy H/O Spinal surgery History of hysterectomy History of partial gastrectomy Family History Other CAD (coronary artery disease) Diabetes Hypertension Social History Alcohol intake: never Household members: spouse Housing: House Marital status: Current occupational status: disabled Physical Exam Const: COMMON NORMALS: no acute distress GENERAL APPEARANCE: cooperative and comfortable ORIENTATION/CONSCIOUSNESS: Yes awake, Yes oriented to person, Yes oriented to place and Yes oriented to time HENMT: COMMON NORMALS: normocephalic, atraumatic and hearing grossly normal bilaterally HEAD & SCALP: normocephalic and atraumatic Resp: COMMON NORMALS: normal respiratory effort, No retractions, No use of accessory muscles and clear to auscultation bilaterally AUSCULTATION: clear to auscultation bilaterally Cardio: COMMON NORMALS: regular rate, regular rhythm and No murmurs present (Cardio) RATE: regular rate RHYTHM: regular rhythm GI: COMMON NORMALS: Soft to palpation and No hepatosplenomegaly present AUSCULTATION: Yes normoactive bowel sounds PALPATION: Yes Soft to palpation, No Tenderness to palpation present (GI), No Guarding due to palpation present (GI) and Yes No hepatosplenomegaly present Extremity: COMMON NORMALS: normal to inspection, capillary refill normal, no clubbing, cyanosis or edema, no calf tenderness and no pedal edema Neuro: SENSORIUM/ORIENTATION: Yes oriented to person, Yes oriented to place and Yes oriented to time Skin: COMMON NORMALS: no rashes or lesions noted GENERAL SKIN EXAM: no rashes or lesions noted Course Vital Signs: Vital signs: Vital Signs Temperature 98.2 F 06/02/22 09:55 Pulse Rate 72 06/02/22 09:55 Respiratory Rate 18 06/02/22 09:55 Blood Pressure 112/68 06/02/22 09:55 Pulse Oximetry 97 06/02/22 09:55 Oxygen Delivery Me thod 06/02/22 09:55 MDM - Abdominal Pain Medical Decision Making Labs imaging and EKG done. Exam benign acute abdominal series as well as no sign of obstruction bowel sounds are normal we will discharge patient home follow-up as needed Medical Records I reviewed the patient's medical records. Lab Data I reviewed the patient's lab results. : 06/02/22 10:27 06/02/22 10:27 Labs/Radiology: Radiology Impressions Abdomen X-Ray 06/02/22 10:34 IMPRESSION: No acute findings. Laboratory Results WBC 6.0 10^3/uL (4.0-10.0) 06/02/22 10:27 RBC 4.06 10^6/uL (4.1-5.3) L 06/02/22 10:27 Hgb 12.0 g/dL (11.5-15.3) 06/02/22 10:27 Hct 38.0 % (37.0-47.0) 06/02/22 10:27 MCV 93.6 fl (81-99) 06/02/22 10:27 MCH 29.6 pg (28.0-34.0) 06/02/22 10:27 MCHC 31.6 g/dL (30.0-36.0) 06/02/22 10:27 RDW 15.9 % (12.1-15.1) H 06/02/22 10:27 Plt Count 261 10^3/cmm (130-400) 06/02/22 10:27 MPV 10.6 fL (7.4-10.4) H 06/02/22 10:27 Neut % (Auto) 68.9 % 06/02/22 10:27 Lymph % (Auto) 18.7 % 06/02/22 10:27 [place] % (Auto) 5.3 % 06/02/22 10:27 Eos % (Auto) 5.8 % 06/02/22 10:27 Baso % (Auto) 1.0 % 06/02/22 10:27 Neut # (Auto) 4.12 10^3/uL (1.8-7.7) 06/02/22 10:27 Lymph # (Auto) 1.1 10^3/uL (0.8-4.8) 06/02/22 10:27 [place] # (Auto) 0.3 10^3/uL (0.2-0.9) 06/02/22 10:27 Eos # (Auto) 0.4 10^3/uL (0.0-0.8) 06/02/22 10:27 Baso # (Auto) 0.1 10^3/uL (0.0-0.1) 06/02/22 10:27 Nucleated RBC % (auto) 0 % 06/02/22 10:27 Nucleated RBCs # 0.0 /100WBC 06/02/22 10:27 Sodium 138 mmol/L (136-145) 06/02/22 10:27 Potassium 4.6 mmol/L (3.5-5.1) 06/02/22 10:27 Chloride 101 mmol/L (98-107) 06/02/22 10:27 Carbon Dioxide 27 mmol/L (22-29) 06/02/22 10:27 Anion Gap 14.6 (5-19) 06/02/22 10:27 BUN 11 mg/dL (6-20) 06/02/22 10:27 Creatinine 0.6 mg/dL (0.5-0.9) 06/02/22 10:27 GFR Calculation 107.2 mL/min (90-130) 06/02/22 10:27 Glucose 94 mg/dL (65-115) 06/02/22 10:27 Calculated Osmolality 285 mOsm/kg (285-295) 06/02/22 10:27 Calcium 9.1 mg/dL (8.5-10.5) 06/02/22 10:27 Total Bilirubin 0.2 mg/dL (0.15-1.2) 06/02/22 10:27 AST 19 U/L (0-32) 06/02/22 10:27 ALT 11 U/L (0-33) 06/02/22 10:27 Alkaline Phosphatase 70 IU/L (35-105) 06/02/22 10:27 Total Protein 6.8 g/dL (6.6-8.7) 06/02/22 10:27 Albumin 3.7 g/dL (3.5-5.2) 06/02/22 10:27 Globulin 3.1 g/dL (1.3-4.6) 06/02/22 10:27 Lipase 23 U/L (13-60) 06/02/22 10:27 Urine Color Straw (Yellow) 06/02/22 11:10 Urine Appearance Clear (CLEAR) 06/02/22 11:10 Urine pH 7 (5-7) 06/02/22 11:10 Ur Specific [place] 1.005 (1.005-1.030) 06/02/22 11:10 Urine Protein Neg (Negative) 06/02/22 11:10 Urine Glucose (UA) Norm (Normal) 06/02/22 11:10 Urine Ketones 1+ (Negative) H 06/02/22 11:10 Urine Blood Neg (Negative) 06/02/22 11:10 Urine Nitrate Negative (Negative) 06/02/22 11:10 Urine Bilirubin Neg (Negative) 06/02/22 11:10 Urine Urobilinogen Norm mg/dL (Negative) 06/02/22 11:10 Ur Leukocyte Esterase Negative (Negative) 06/02/22 11:10 Discharge Plan Discharge Patient Disposition: Home Clinical Impression: Abdominal pain, Chronic indwelling Dumont catheter, Paraplegia Condition: Stable Prescriptions: No Action ascorbic acid (vitamin C) [Vitamin C] 1,000 mg Tablet 1,000 mg PO BID@08, methenamine hippurate 1 gram Tablet 1 g PO BID@, pantoprazole 40 mg Tablet,Delayed Release (Dr/Ec) 40 mg PO DAILY lactulose 10 gram/15 mL (15 mL) Solution 30 ml PO TID sennosides-docusate sodium [Senna Plus] 8.6-50 mg Tablet 2 tab PO BID@, metoclopramide HCl 10 mg tablet 10 mg PO Q6H PRN (Reason: nausea and vomiting) Qty: 20 0RF pravastatin 40 mg Tablet 40 mg PO BEDTIME naloxone 0.4 mg/mL Solution 0.4 mg IM Q2M PRN (Reason: overdose) acetaminophen 500 mg Tablet 500 mg PO Q6H PRN (Reason: Pain) simethicone 80 mg Tablet,Chewable 80 mg PO .AFTER MEALS polyethylene glycol 3350 [Miralax] 17 gram/dose powder 17 g PO DAILY PRN (Reason: constipation) tizanidine 4 mg Tablet 4 mg PO TID@08,14,20 PRN (Reason: unknown) fentanyl 50 mcg/hr Patch 72 Hour 1 patch TRANSDERMAL Q72H Qty: 5 0RF morphine concentrate 100 mg/5 mL (20 mg/mL) solution 5 mg PO Q4H PRN (Reason: Pain) Qty: 30 0RF alprazolam [Xanax] 0.25 mg Tablet 0.25 mg PO TID PRN (Reason: Anxiety) Qty: 10 0RF ondansetron HCl 4 mg Tablet 4 mg PO Q6H PRN (Reason: Nausea) Relistor 12 mg/0.6 mL Syringe 0.6 ml SUBCUT Q3D PRN (Reason: Constipation) gabapentin 600 mg tablet 1,200 mg PO TID docusate sodium [Colace] 100 mg Capsule 100 mg PO BID insulin lispro [Humalog KwikPen Insulin] 100 unit/mL Insulin Pen See Rx Instructions .ROUTE .COMPLEX Rx Instructions: SLIDING SCALE- BLOOD SUGAR 125-150 GIVE 2 UNITS, 151-200 GIVE 4 UNITS, 201-250 GIVE 6 UNITS, 251-300 GIVE 8 UNITS, 301-350 GIVE 10 UNITS, 351-400 GIVE 12 UNITS pregabalin [Lyrica] 50 mg Capsule 50 mg PO BID calcium carbonate [Tums Ultra] 400 mg calcium (1,000 mg) Tablet,Chewable 400 mg PO DAILY PRN (Reason: Heartburn) magnesium hydroxide [Milk of Magnesia] 400 mg/5 mL suspension 5 ml PO DAILY Qty: 355 0RF potassium chloride 20 mEq Tablet Extended Release 20 meq PO DAILY Nystop 100,000 unit/gram Powder 1 applic topical BID 14 Days Qty: 30 0RF imipenem-cilastatin 500 mg recon soln 1 ml IV Q6H 14 Days Qty: 56 0RF Rx Instructions: administer over 40-60 mins caspofungin 50 mg recon soln 50 mg IV DAILY Qty: 14 0RF caspofungin 50 mg recon soln 50 mg IV DAILY Qty: 1 0RF miconazole nitrate [Monistat 7] 2 % Cream 1 applic VAGINAL BID metformin 1,000 mg Tablet 1,000 mg PO BID lidocaine 5 % Adhesive Patch,Medicated 1 patch TOPICAL Q12H Rx Instructions: leave on most painful area for up to 12 hrs sertraline 50 mg Tablet 50 mg PO DAILY Discharge Orders: Discharge ED (Routine); Ordered 06/02/22 Ordered By: Devin Witt Discharge Diet: Usual diet Discharge Activity: Resume usual activity Patient Instructions: Abdominal Pain (ED), Opioid Safety Coding Level of Care Code ED Social Sciences Instructor for Julien Magaña
== END 2022-06-02 13:55 | disposition home or self-care (01) ==
PROVIDERS: Emergency Provider Family Medicine
DX: R10.9 Unspecified abdominal pain (principal); G82.20 Paraplegia, unspecified; Z79.84 Long term (current) use of oral hypoglycemic drugs; Z79.4 Long term (current) use of insulin
CPT/HCPCS: 74019; 80053; 81003; 83690; 85025; 96374; 99284; J2405

== ENCOUNTER 2022-06-03 09:31 | Emergency (ER) | payer MEDICARE, MEDICAID, SELFPAY ==
[2022-06-03] VITALS (10 sets, daily range): BP systolic 100–120; BP diastolic 54–72; PULSE 69–85; RESP 18; TEMP 37.1; O2SAT 93–98; BMI 21.4
--- NOTE | 2022-06-03 09:34 | XRR_ITS ---
PROCEDURE INFORMATION: Exam: XR Complete Acute Abdomen Series Including Chest Exam date and time: 06/03/2022 10:26 AM Age: 47 years old Clinical indication: Vomiting; Abdominal pain; Generalized; Prior surgery; Surgery type: Hystero, bladder, spine, gastrectomy TECHNIQUE: Imaging protocol: Radiologic exam. Complete acute abdomen series, including 2 or more views of the abdomen and a single view chest. COMPARISON: CR XR abdomen min 2V [id number] 06/02/2022 10:38 AM FINDINGS: Tubes, catheters and devices: Suprapubic catheter is in place. Vascular catheter is seen with tip in the left axillary region. Lungs: Normal. No consolidation. Pleural spaces: Normal. No pleural effusions. No pneumothorax. Heart/Mediastinum: Normal. No cardiomegaly. Gastrointestinal tract: Nonobstructive bowel gas pattern. Intraperitoneal space: Surgical clips in the left upper quadrant. Bones/joints: Normal. No acute fracture. Soft tissues: Normal. XR/XR acute abdomen series [id number] IMPRESSION: No acute findings.
--- NOTE | 2022-06-03 10:09 | ED_ITS ---
HPI - General Adult General: Chief complaint: General Medical Stated complaint: VOMITING Time Seen by Provider: 06/03/22 09:39 Source: patient Mode of arrival: EMS History of Present Illness: 47-year-old female who returns emergency room complaining abdominal pain and distention. We seen the patient yesterday and she had acute abdominal series there is no acute obstruction no air-fluid levels and at that time she had good bowel sounds. She states since then she has had progressively worsening nausea and vomiting is unable to keep any food or fluids down and is more distended today. She still denies dysuria urgency or frequency no hematochezia melena hematemesis cough cramps no fever. She is quadriplegic from a previous high cervical spinal cord injury. Onset (ago): day(s) Location: abdomen Radiation: non-radiation Severity: mild Pain Consistency: intermittent Relieving factors: none Exacerbating factors: none Associated symptoms: Reports decreased appetite, malaise, nausea and weakness; Deny chest pain, confusion, cough, diaphoresis, dyspnea, fevers/chills, headache(s), rash, palpitations, seizures, short of breath, syncope or vomiting Treatments prior to arrival: none Review of Systems Const: Reports: fatigue and malaise; Denies: fever(s), chills or diaphoresis ENMT: Denies: throat pain, ear or mastoid pain, nasal discharge or nasal congestion Card: Denies: chest pain, palpitations or syncope Resp: Denies: dyspnea, productive cough or non-productive cough GI: Reports: abdominal pain and nausea; Denies: vomiting : Denies: flank pain, difficulty voiding, dysuria, urinary frequency or urinary urgency Skin/Breast: Denies: rash Neuro: Denies: headache(s) or confusion PFS ED PFSH: Medical History Chronic indwelling Dumont catheter Hydronephrosis Neurogenic bladder Perforated abdominal viscus Condition resolved Post-traumatic quadriplegia PVD (peripheral vascular disease) Quadriplegia Recurrent sepsis due to urinary tract infection UTI (urinary tract infection) Surgical History H/O bladder repair surgery H/O cystoscopy H/O partial cystectomy H/O Spinal surgery History of hysterectomy History of partial gastrectomy Family History Other CAD (coronary artery disease) Diabetes Hypertension Social History Alcohol intake: never Household members: spouse Housing: House Marital status: Current occupational status: disabled Physical Exam Const: COMMON NORMALS: no acute distress GENERAL APPEARANCE: cooperative and comfortable ORIENTATION/CONSCIOUSNESS: Yes awake, Yes oriented to person, Yes oriented to place and Yes oriented to time HENMT: COMMON NORMALS: normocephalic, atraumatic, hearing grossly normal bilaterally and external ears normal HEAD & SCALP: normocephalic and atraumatic EXTERNAL EAR: Yes external ears normal Resp: COMMON NORMALS: normal respiratory effort, No retractions, No use of accessory muscles and clear to auscultation bilaterally AUSCULTATION: clear to auscultation bilaterally Cardio: COMMON NORMALS: regular rate, regular rhythm and No murmurs present (Cardio) RATE: regular rate RHYTHM: regular rhythm GI: COMMON NORMALS: Soft to palpation and No hepatosplenomegaly present AUSCULTATION: Yes normoactive bowel sounds PALPATION: Yes Soft to palpation, No Tenderness to palpation present (GI), No Guarding due to palpation present (GI) and Yes No hepatosplenomegaly present Neuro: SENSORIUM/ORIENTATION: Yes oriented to person, Yes oriented to place and Yes oriented to time Skin: COMMON NORMALS: no rashes or lesions noted GENERAL SKIN EXAM: no rashes or lesions noted Course Vital Signs: Vital signs: Vital Signs Temperature 98.7 F 06/03/22 09:36 Pulse Rate 73 06/03/22 16:00 Respiratory Rate 18 06/03/22 10:42 Blood Pressure 102/60 06/03/22 16:00 Pulse Oximetry 93 06/03/22 16:00 Oxygen Delivery Me thod 06/03/22 16:00 [facility] - General Adult Medical Decision Making Improved with treatment here in the emergency room I think she has some gastroparesis likely primarily caused by her diabetes and complicated by her use of narcotics and her previous spinal cord injury. Start Reglan. Discharge pa tient back to the jail. Medical Records I reviewed the patient's medical records. Improved with treatment here in the emergency room I think she has some gastroparesis likely primarily caused by her diabetes and complicated by her use of narcotics and her previous spinal cord injury. Start Reglan. Discharge patient back to the jail. Lab Data I reviewed the patient's lab results. : 06/03/22 09:34 06/03/22 10:50 Radiology Impressions Chest/Abdomen X-ray 06/03/22 09:34 IMPRESSION: No acute findings. Laboratory Results WBC 5.5 10^3/uL (4.0-10.0) 06/03/22 09:34 RBC 4.55 10^6/uL (4.1-5.3) 06/03/22 09:34 Hgb 13.4 g/dL (11.5-15.3) 06/03/22 09:34 Hct 40.5 % (37.0-47.0) 06/03/22 09:34 MCV 89.0 fl (81-99) 06/03/22 09:34 MCH 29.5 pg (28.0-34.0) 06/03/22 09:34 MCHC 33.1 g/dL (30.0-36.0) 06/03/22 09:34 RDW 15.8 % (12.1-15.1) H 06/03/22 09:34 Plt Count 272 10^3/cmm (130-400) 06/03/22 09:34 MPV 10.2 fL (7.4-10.4) 06/03/22 09:34 Neut % (Auto) 72.5 % 06/03/22 09:34 Lymph % (Auto) 19.0 % 06/03/22 09:34 Sanders % (Auto) 4.6 % 06/03/22 09:34 Eos % (Auto) 3.1 % 06/03/22 09:34 Baso % (Auto) 0.4 % 06/03/22 09:34 Neut # (Auto) 3.96 10^3/uL (1.8-7.7) 06/03/22 09:34 Lymph # (Auto) 1.0 10^3/uL (0.8-4.8) 06/03/22 09:34 Sanders # (Auto) 0.3 10^3/uL (0.2-0.9) 06/03/22 09:34 Eos # (Auto) 0.2 10^3/uL (0.0-0.8) 06/03/22 09:34 Baso # (Auto) 0.0 10^3/uL (0.0-0.1) 06/03/22 09:34 Nucleated RBC % (auto) 0 % 06/03/22 09:34 Nucleated RBCs # 0.0 /100WBC 06/03/22 09:34 Sodium 137 mmol/L (136-145) 06/03/22 10:50 Potassium 4.7 mmol/L (3.5-5.1) 06/03/22 10:50 Chloride 100 mmol/L (98-107) 06/03/22 10:50 Carbon Dioxide 25 mmol/L (22-29) 06/03/22 10:50 Anion Gap 16.7 (5-19) 06/03/22 10:50 BUN 11 mg/dL (6-20) 06/03/22 10:50 Creatinine 0.5 mg/dL (0.5-0.9) 06/03/22 10:50 GFR Calculation 132.2 mL/min (90-130) H 06/03/22 10:50 Glucose 95 mg/dL (65-115) 06/03/22 10:50 Calculated Osmolality 283 mOsm/kg (285-295) L 06/03/22 10:50 Lactate 1.5 mmol/L (0.5-2.2) 06/03/22 10:50 Calcium 9.8 mg/dL (8.5-10.5) 06/03/22 10:50 Total Bilirubin 0.2 mg/dL (0.15-1.2) 06/03/22 10:50 AST 19 U/L (0-32) 06/03/22 10:50 ALT 11 U/L (0-33) 06/03/22 10:50 Alkaline Phosphatase 72 IU/L (35-105) 06/03/22 10:50 Total Protein 7.4 g/dL (6.6-8.7) 06/03/22 10:50 Albumin 4.1 g/dL (3.5-5.2) 06/03/22 10:50 Globulin 3.3 g/dL (1.3-4.6) 06/03/22 10:50 Urine Color Yellow (Yellow) 06/03/22 11:43 Urine Appearance Clear (CLEAR) 06/03/22 11:43 Urine pH 7 (5-7) 06/03/22 11:43 Ur Specific Hamilton 1.015 (1.005-1.030) 06/03/22 11:43 Urine Protein Neg (Negative) 06/03/22 11:43 Urine Glucose (UA) Norm (Normal) 06/03/22 11:43 Urine Ketones Negative (Negative) 06/03/22 11:43 Urine Blood Neg (Negative) 06/03/22 11:43 Urine Nitrate Negative (Negative) 06/03/22 11:43 Urine Bilirubin Neg (Negative) 06/03/22 11:43 Urine Urobilinogen Norm mg/dL (Negative) 06/03/22 11:43 Ur Leukocyte Esterase 1+ (Negative) H 06/03/22 11:43 Urine RBC 0-4 /hpf (0-2) H 06/03/22 11:43 Urine WBC 10-15 /hpf (0-5) H 06/03/22 11:43 Ur Squamous Epith Cells 5-10 /hpf (0-5) H 06/03/22 11:43 Amorphous Sediment Not Reportable 06/03/22 11:43 Urine Bacteria None /hpf (NONE) 06/03/22 11:43 Discharge Plan Discharge Patient Disposition: Home Clinical Impression: Nausea and vomiting Condition: Stable Prescriptions: Changed metoclopramide HCl 10 mg tablet 10 mg PO Q6H Qty: 20 0RF No Action ascorbic acid (vitamin C) [Vitamin C] 1,000 mg Tablet 1,000 mg PO BID@ methenamine hippurate 1 gram Tablet 1 g PO BID@ pantoprazole 40 mg Tablet,Delayed Release (Dr/Ec) 40 mg PO DAILY lactulose 10 gram/15 mL (15 mL) Solution 30 ml PO TID sennosides-docusate sodium [Senna Plus] 8.6-50 mg Tablet 2 tab PO BID@, pravastatin 40 mg Tablet 40 mg PO BEDTIME naloxone 0.4 mg/mL Solution 0.4 mg IM Q2M PRN (Reason: overdose) acetaminophen 500 mg Tablet 500 mg PO Q6H PRN (Reason: Pain) simethicone 80 mg Tablet,Chewable 80 mg PO TIDWM polyethylene glycol 3350 [Miralax] 17 gram/dose powder 17 g PO DAILY PRN (Reason: constipation) tizanidine 4 mg Tablet 4 mg PO TID@08,14,20 PRN (Reason: unknown) fentanyl 50 mcg/hr Patch 72 Hour 1 patch TRANSDERMAL Q72H Qty: 5 0RF morphine concentrate 100 mg/5 mL (20 mg/mL) solution 5 mg PO Q4H PRN (Reason: Pain) Qty: 30 0RF alprazolam [Xanax] 0.25 mg Tablet 0.25 mg PO TID PRN (Reason: Anxiety) Qty: 10 0RF ondansetron HCl 4 mg Tablet 4 mg PO Q6H PRN (Reason: Nausea) Relistor 12 mg/0.6 mL Syringe 0.6 ml SUBCUT Q3D PRN (Reason: Constipation) gabapentin 600 mg tablet 1,200 mg PO TID docusate sodium [Colace] 100 mg Capsule 100 mg PO BID insulin lispro [Humalog KwikPen Insulin] 100 unit/mL Insulin Pen See Rx Instructions .ROUTE .COMPLEX Rx Instructions: SLIDING SCALE- BLOOD SUGAR 125-150 GIVE 2 UNITS, 151-200 GIVE 4 UNITS, 201- 250 GIVE 6 UNITS, 251-300 GIVE 8 UNITS, 301-350 GIVE 10 UNITS, 351-400 GIVE 12 UNITS pregabalin [Lyrica] 50 mg Capsule 50 mg PO BID calcium carbonate [Tums Ultra] 400 mg calcium (1,000 mg) Tablet,Chewable 400 mg PO DAILY PRN (Reason: Heartburn) magnesium hydroxide [Milk of Magnesia] 400 mg/5 mL suspension 5 ml PO DAILY Qty: 355 0RF potassium chloride 20 mEq Tablet Extended Release 20 meq PO DAILY caspofungin 50 mg recon soln 50 mg IV DAILY Qty: 1 0RF metformin 1,000 mg Tablet 1,000 mg PO BID lidocaine 5 % Adhesive Patch,Medicated 1 patch TOPICAL Q12H Rx Instructions: leave on most painful area for up to 12 hrs sertraline 50 mg Tablet 50 mg PO DAILY Discharge Orders: Discharge ED (Routine); Ordered 06/03/22 Ordered By: Devin Witt Discharge Diet: Usual diet Discharge Activity: Resume usual activity Patient Instructions: Opioid Safety Activity Restrictions/Additional Instructions: Recommend that the patient eat while sitting up at at least 75 to 80 degrees elevation head of the bed. She should remain sitting up for one full-hour after eating or drinking. Change Reglan to scheduled every 6 hours. Follow-up with primary care doctor [facility] the [facility]. Coding Level of Care Code ED Panelboard Assembler for Julien Magaña
[2022-06-03] MEDS: morphine 4 mg/mL SDV 1 mL IVP (10:42)
[2022-06-03] MEDS: sodium chloride 0.9% 1,000 ML 999 ML IV (10:44)
[2022-06-03] MEDS: promethazine 25 mg/mL SDV 1 mL IM (10:44)
[2022-06-03 10:56] LABS: Basophils % 0.4 %; Eosinophils # 0.2 10^3/uL (0.0-0.8); Eosinophils % 3.1 %; Hematocrit 40.5 % (37.0-47.0); Hemoglobin 13.4 g/dL (11.5-15.3); Mean Corpuscular HGB Conc 33.1 g/dL (30.0-36.0); Mean Corpuscular Hemoglobin 29.5 pg (28.0-34.0); Mean Platelet Volume 10.2 fL (7.4-10.4); Monocytes # 0.3 10^3/uL (0.2-0.9); Monocytes % 4.6 %; Neutrophils # 3.96 10^3/uL (1.8-7.7); Neutrophils % 72.5 %; Nucleated Red Blood Cells % 0 %; Platelet Count 272 10^3/cmm (130-400); Red Blood Count 4.55 10^6/uL (4.1-5.3); Red Cell Distribution Width 15.8 % (12.1-15.1); White Blood Count 5.5 10^3/uL (4.0-10.0)
--- NOTE | 2022-06-03 10:56 | CT_ITS ---
WS: [id number] CT ABDOMEN AND PELVIS NONCONTRAST HISTORY: RIGHT upper quadrant pain with urination. TECHNIQUE: Imaging performed through the abdomen and pelvis. Coronal and sagittal reformats are submi tted. All CT scans at [facility] use at least one of these dose optimization techniques: auto mated exposure control; mA and/or kV adjustment per patient size (includes targeted exams where dose is matched to clinical indication); or iterative reconstruction. DLP: 591.56 mGy.cm COMPARISON: 05/24/2022 Lower thorax: Mild atelectasis and dependent changes at the lung bases. Heart size is normal. Liver: Liver is mildly high riding beneath an elevated diaphragm. Gallbladder: Normal gallbladder. Pancreas: Normal size and attenuation. Normal pancreatic duct. No pancreatitis or mass. Spleen: Normal. Adrenal glands: Normal RIGHT adrenal gland. Mild thickening of the LEFT adrenal gland. Similar to tatyana or studies. Right kidney: Mild atrophy with a small extrarenal pelvis similar to prior studies. No hydronephrosis . Left kidney: Mild atrophy and cortical thinning similar to prior studies. Very slight dilatation of t he renal pelvis. Aorta: Mild atherosclerosis abdominal aorta with no aneurysm. No free fluid, intraperitoneal air or significant lymphadenopathy. GI tract: Postoperative changes are noted within the stomach. There is no obstruction. No small bowel obstruction. There is moderate diffuse fecal retention throughout the entire colon. The appendix is normal. There are mild diffuse circumferential rectal wall thickening is similar to prior studies. Abdominal wall: Negative. No hernia. Pelvis: Prior hysterectomy. Urinary bladder is not distended. Suprapubic catheter is coiled in the no ndistended bladder. RIGHT adnexal cyst is reidentified. Cyst measures 2.6 x 3.4 cm. Osseous structures: Mild curvature of the lumbar spine. Mild narrowing of the hip joints. IMPRESSION: 1. No acute abdominal or pelvic abnormality identified. Very minimal dilatation of the renal pelves, similar to the prior examination. 2. Mild bilateral renal atrophy and cortical thinning. 3. Suprapubic catheter in a nondistended urinary bladder. 4. No ascites or free air. 5. Diffuse moderate constipation throughout the entire colon. 6. Normal appendix. 7. Stable RIGHT adnexal cyst. Favor this is an ovarian cyst. Prior hysterectomy.
[2022-06-03 11:13] LABS: Lactate (Lactic Acid level) 1.5 mmol/L (0.5-2.2)
[2022-06-03 11:18] LABS: Alanine Aminotransferase 11 U/L (0-33); Albumin Level 4.1 g/dL (3.5-5.2); Alkaline Phosphatase 72 IU/L (35-105); Anion Gap 16.7 (5-19); Aspartate Amino Transferase 19 U/L (0-32); Blood Urea Nitrogen 11 mg/dL (6-20); Calcium 9.8 mg/dL (8.5-10.5); Carbon Dioxide 25 mmol/L (22-29); Chloride 100 mmol/L (98-107); Globulin 3.3 g/dL (1.3-4.6); Glomerular Filtration Rate 132.2 mL/min (90-130); Glucose 95 mg/dL (65-115); Osmolality Calculated 283 mOsm/kg (285-295); Potassium 4.7 mmol/L (3.5-5.1); Sodium 137 mmol/L (136-145); Total Bilirubin 0.2 mg/dL (0.15-1.2); Total Protein 7.4 g/dL (6.6-8.7)
[2022-06-03 12:13] LABS: Specific Gravity, Urine 1.015 (1.005-1.030); Urine Appearance Clear (CLEAR); Urine Color Yellow (Yellow); pH Urine 7 (5-7)
[2022-06-03 12:14] LABS: Add Urine Culture? No; Add Urine Microscopic? YES; Bilirubin Urine Neg (Negative); Blood Urine Neg (Negative); Glucose Urine UA Norm (Normal); Ketones Urine Negative (Negative); Leukocyte Esterase Urine 1+ (Negative); Nitrate Urine Negative (Negative); Protein Urine Neg (Negative); RBC Urine 0-4 /hpf (0-2); Urobilinogen Urine Norm (Negative)
== END 2022-06-03 16:25 | disposition home or self-care (01) ==
PROVIDERS: Emergency Provider Family Medicine
DX: R11.2 Nausea with vomiting, unspecified (principal); Z79.84 Long term (current) use of oral hypoglycemic drugs; Z79.4 Long term (current) use of insulin; G82.50 Quadriplegia, unspecified
CPT/HCPCS: 36415; 74022; 74176; 80053; 81001; 83605; 85025; 96372; 96374; 99285; J2270; J2550; J7030

== ENCOUNTER 2022-06-04 05:25 | Day surgery (SDC) | payer MEDICARE, MEDICAID, SELFPAY ==
[2022-06-04] VITALS (7 sets, daily range): BP systolic 100–114; BP diastolic 57–77; PULSE 59–86; RESP 10–18; TEMP 36.1–36.8; O2SAT 95–98; BMI 24.9
--- NOTE | 2022-06-04 06:49 | P.ANESASSM_ITS ---
Pre-Anesthetic Assessment Height/Weight: Height 1.63 m Weight 65.771 kg Temp Pulse Resp BP Pulse Ox O2 Del Method 97.0 F L 59 L 18 109/67 95 06/04/22 06:13 06/04/22 06:13 06/04/22 06:13 06/04/22 06:13 06/04/22 06:13 06/04/22 06:13 Preop Diagnosis: Chronic neurogenic bladder with recent SP tube placement Operation Date: 06/04/22 07:00 Proposed Procedures p CYSTOSCOPY SUPRAPUBIC TUBE EXCHANGE [id number],Z93.59,N31.9,N13.30(Not Applicable) - Hilton Culp MD Familial anesthetic complications: None Was Beta Rolando taken within 24 hours: N/A Was Clonidine taken within 24 hours: N/A Last intake: Intake Last Liquid Date 06/03/22 Last Liquid Time 22:00 Last Solid Date 06/03/22 Last Solid Time 13:00 Social No alcohol and No tobacco Exam alert, oriented x 3, clear to auscultation bilaterally and regular rate & rhythm Airway Mallampati: Class IV Dentition: other (no teeth) Pulmonary None reported CV/HEM Peripheral Vascular Disease and None reported neurogenic bladder Hepatic None reported Metabolic Diabetes Mellitus and Morbid Obesity Neuropsych Qudariplegia - states does get sick to stomach if painful stimuli occur below injury Anesthetic Plan ASA status: 4 Anesthesia: Choice Risk of > 500 ml blood loss (7ml/kg in children): No Medications/Allergies Home Medications Medication Instructions Recorded Confirmed Last Taken Type ascorbic acid (vitamin C) 1,000 mg 1,000 mg PO BID@04/22/20 06/03/22 06/03/22 History tablet (Vitamin C) lactulose 10 gram/15 mL (15 mL) 30 ml PO TID 04/22/20 06/03/22 06/03/22 History oral solution methenamine hippurate 1 gram tablet 1 g PO BID@04/22/20 06/03/22 06/03/22 History pantoprazole 40 mg tablet,delayed 40 mg PO DAILY 04/22/20 06/03/22 06/03/22 History release sennosides 8.6 mg-docusate sodium 2 tab PO BID@05/28/20 06/03/22 06/03/22 History 50 mg tablet (Senna Plus) tizanidine 4 mg tablet 4 mg PO TID@08,14,20 PRN unknown 11/18/20 06/03/22 06/02/22 History alprazolam 0.25 mg tablet (Xanax) 0.25 mg PO TID PRN Anxiety #10 tabs 11/22/20 06/03/22 06/02/22 Rx fentanyl 50 mcg/hr transdermal 1 patch transdermal Q72H #5 ea 11/22/20 06/03/22 05/30/22 Rx patch morphine concentrate 100 mg/5 mL 5 mg (0.25 mL) PO Q4H PRN Pain #30 11/22/20 06/03/22 06/02/22 Rx (20 mg/mL) oral solution mL acetaminophen 500 mg tablet 500 mg PO Q6H PRN Pain 08/17/21 06/03/22 03/26/22 History naloxone 0.4 mg/mL injection 0.4 mg IM Q2M PRN overdose 08/17/21 06/03/22 Unknown History solution polyethylene glycol 3350 17 17 g PO DAILY PRN constipation 08/17/21 06/03/22 06/02/22 History gram/dose oral powder (Miralax) pravastatin 40 mg tablet 40 mg PO BEDTIME 08/17/21 06/03/22 06/02/22 History simethicone 80 mg chewable tablet 80 mg PO TIDWM 08/17/21 06/03/22 06/03/22 History methylnaltrexone 12 mg/0.6 mL 0.6 ml SUBCUT Q3D PRN Constipation 01/24/22 06/03/22 03/27/22 History subcutaneous syringe (Relistor) ondansetron HCl 4 mg tablet 4 mg PO Q6H PRN Nausea 01/24/22 06/03/22 05/21/22 History docusate sodium 100 mg capsule 100 mg PO BID 02/11/22 06/03/22 06/03/22 History (Colace) gabapentin 600 mg tablet 1,200 mg PO TID 02/11/22 06/03/22 06/03/22 History calcium carbonate 400 mg calcium 400 mg PO DAILY PRN Heartburn 03/06/22 06/03/22 Unknown History (1,000 mg) chewable tablet (Tums Ultra) insulin lispro 100 unit/mL See Rx Instructions .Route .COMPLEX 03/06/22 06/03/22 05/22/22 History subcutaneous pen (Humalog KwikPen (U-100) Insulin) pregabalin 50 mg capsule (Lyrica) 50 mg PO BID 03/06/22 06/03/22 06/03/22 History magnesium hydroxide 400 mg/5 mL 5 ml PO DAILY #355 mL 03/12/22 06/03/22 06/03/22 Rx oral suspension (Milk of Magnesia) potassium chloride 20 mEq 20 meq PO DAILY 03/28/22 06/03/22 06/03/22 History tablet,extended release lidocaine 5 % topical patch 1 patch topical Q12H 05/12/22 06/03/22 06/03/22 History metformin 1,000 mg tablet 1,000 mg PO BID 05/12/22 06/03/22 06/03/22 History sertraline 50 mg tablet 50 mg PO DAILY 05/12/22 06/03/22 06/02/22 History caspofungin 50 mg intravenous 50 mg IV DAILY #1 ea 05/28/22 06/03/22 06/01/22 Rx solution imipenem-cilastatin 500 mg 1 ml IV Q6H 14 days #56 ea 05/28/22 06/03/22 06/03/22 Rx intravenous solution nystatin 100,000 unit/gram topical 1 applic topical BID 14 days #30 05/28/22 06/03/22 Unknown Rx powder (Nystop) grams metoclopramide HCl 10 mg tablet 10 mg PO Q6H #20 tabs 06/03/22 06/03/22 06/02/22 Rx Allergies Allergy/AdvReac Type Severity Reaction Status Date / Time No Known Allergies Allergy Verified 05/22/22 12:14 [facility] Anesthesia Medical History Chronic indwelling Dumont catheter Hydronephrosis Neurogenic bladder Perforated abdominal viscus Condition resolved Post-traumatic quadriplegia PVD (peripheral vascular disease) Quadriplegia Recurrent sepsis due to urinary tract infection UTI (urinary tract infection) Surgical History H/O bladder repair surgery H/O cystoscopy H/O partial cystectomy H/O Spinal surgery History of hysterectomy History of partial gastrectomy Family History Other CAD (coronary artery disease) Diabetes Hypertension Social History Alcohol intake: never Household members: spouse Housing: House Marital status: Current occupational status: disabled Data Anesthesia Cardiac Studies: No Data to Display
[2022-06-04] MEDS: sodium chloride 0.9% 1,000 ML 30 ML IV (06:54)
--- NOTE | 2022-06-04 06:54 | W.PM.OPSUD ---
Surgery/Procedure H&P Update DATE OF PROCEDURE: June 04, 2022 DATE H&P PERFORMED: 05/28/22 H&P UPDATE INFORMATION: I have reviewed H&P completed within last 30 days, I have examined patient prior to procedure, No changes to prior documentation and H&P is in [facility] EMR on date indicated CHANGES TO PREVIOUS DOCUMENTATION: No changes in consultation/H&P on 05/28/2022. PREOP DIAGNOSIS: Chronic neurogenic bladder with recent SP tube placement PLANNED PROCEDURE: Operation Date: 06/04/22 07:00 Proposed Procedures p CYSTOSCOPY SUPRAPUBIC TUBE EXCHANGE [id number] [id number],Z93.59,N31.9,N13.30(Not Applicable) - Hilton Culp MD
[2022-06-04] MEDS: levofloxacin-dextrose 5 % 500 MG/100 ML PREMIX 100 MG IV (07:00)
[2022-06-04] MEDS: neomycin-poly-bacitracin oint 28 gm 28 APPLIC (07:24)
--- NOTE | 2022-06-04 07:33 | P.OP_ITS ---
Operative Report Date of procedure: June 04, 2022 Pre-op diagnosis: Chronic suprapubic tube for neurogenic bladder Post-op diagnosis: Same Procedure done: 1. Cystoscopy 2. Suprapubic tube exchange over wire Implants: 14 Togolese Dumont catheter as suprapubic tube Specimens removed/disposition: None Surgeon: Suni Anesthesia: General Estimated blood loss: None Urine output: Not measured Complications: None Findings: 12 Togolese percutaneous suprapubic tube exchanged for a 14 Togolese Dumont catheter via suprapubic tract over a wire Brief History: Rosanne is a 47-year-old white female quadriplegic with neurogenic bladder and multiple complications related to that including multiple episodes of sepsis, bladder rupture, chronic incontinence and wound issues. She was assessed for possible urinary diversion but it was elected initially to try a suprapubic tube management for neurogenic bladder before considering diversion due to her multiple abdominal surgeries and risks. At the [facility] she had a 12 Togolese percutaneous suprapubic tube placed and is due for initial change. Based on the small size of the tube it was elected to make the first change in the operating room under controlled conditions. Condition: Stable Disposition: PACU Procedure: After routine preoperative evaluation examination and obtaining of informed consent she was taken to the operating suite on 06/04/2022 where general anesthesia was administered without difficulty after appropriate timeout was performed, SCDs confirmed to be functioning, preoperative antibiotics administered, beta-eric protocol confirmed. Prepped and draped in usual sterile fashion in dorsolithotomy position paying careful attention to avoiding pressure points. She had significant hip and lower extremity contractures and appropriate caution was made regarding position ing in that environment. The existing suprapubic tube was prepped into the field. 21 Togolese cystoscope with 30 degree lens was introduced into the urethra meatus and into the bladder without difficulty. The tube was inspected. It was a pigtail type locking percutaneous tube. The remainder of the bladder looked mildly inflamed but without any significant pathology. Capacity was actually pretty good. The locking mechanism was unlocked and a guidewire was passed through the suprapubic tube into the wire and the percutaneous tube was removed without difficulty. The site was inspected and was found to be fairly tight and that it was located in old scar tissue. For that reason a 14 Togolese catheter was converted to a chemehuevi tip catheter and the catheter was placed without difficulty but the suprapubic tract was still pretty tight so therefore a larger catheter was not attempted. The balloon was inflated and cystoscopically confirmed to be inflated and it was seated up against the anterior bladder wall. No sutures were used. Catheter was current confirmed to be functioning and the procedure was completed. She tolerated procedure well without complications and was awakened in the operating room and returned recovery in stable condition. Plans: 1. Anticipate discharge from outpatient surgery 2. Follow-up in 1 month for 16 or 18 Togolese suprapubic tube catheter placement in clinic. 3. Once her tract is mature and adequately dilated to the anticipate long-term Dumont catheter size we will turn the role of catheter address change clerk to her [facility]p staff.
[2022-06-04 08:05] LABS: Glucose Point of Care 127 mg/dL (70-110)
--- NOTE | 2022-06-04 08:28 | SUR.PHASEII ---
report called to nurse at [facility]
--- NOTE | 2022-06-04 09:03 | SUR.PHASEII ---
spoke with heather tanner at urology. she states she will send a note and clinic will call [facility] for patients follow up appointment.
--- NOTE | 2022-06-04 10:41 | SUR.PHASEII ---
Patient ready for DC at 0840. [facility] report to prison at 0805. at 1005 no ride to pick patient up yet. called the prison back and they never called transport. i called ready transport and patient picked up at 1016. patient awake and alert and in her wheelchair with belongings.
--- NOTE | 2022-06-04 18:04 | ANE.PACU2 ---
Inpatient post-anesthesia follow up: Airway intact: Yes Vital signs: Temperature 98.2 F Pulse Rate 82 Respiratory Rate 18 Blood Pressure 113/64 Pulse Oximetry 95 Oxygen Delivery Me thod Room Air Oxygen Flow Rate 6 Fraction of Inspir ed Oxygen Hydration adequate: Yes Nausea and vomiting: No Pain level: 1 Mental status: Baseline
== END 2022-06-04 10:16 | disposition home or self-care (01) ==
PROVIDERS: PCP Family Medicine; Visit Provider Urology
PROC: 0TJB8ZZ Inspection of Bladder, Via Natural or Artificial Opening Endoscopic (ICD-10-PCS; CPT 52000; principal; 2022-06-04 07:00)
DX: N31.9 Neuromuscular dysfunction of bladder, unspecified (principal); Z93.59 Other cystostomy status; E11.9 Type 2 diabetes mellitus without complications; E66.01 Morbid (severe) obesity due to excess calories; Z68.24 Body mass index [BMI] 24.0-24.9, adult; G82.50 Quadriplegia, unspecified
CPT/HCPCS: 51705; 36416; 82962; J1100; J1956; J2370; J2405; J2704; J3010; J7030

== ENCOUNTER → 2022-06-26 10:26 | Outpatient (BNVA) | payer MEDICARE, MEDICAID, SELFPAY | PROVIDERS: PCP Family Medicine; Visit Provider Student in an Organized Health Care Education/Training Program | DX: R10.9 Unspecified abdominal pain (principal); N31.9 Neuromuscular dysfunction of bladder, unspecified; N39.0 Urinary tract infection, site not specified | CPT/HCPCS: 87086; 99204 ==

== ENCOUNTER → 2022-07-04 08:55 | Outpatient (BNVA) | payer MEDICARE, MEDICAID, SELFPAY | PROVIDERS: PCP Family Medicine; Visit Provider Urology | DX: N31.9 Neuromuscular dysfunction of bladder, unspecified (principal); Z93.59 Other cystostomy status; N39.0 Urinary tract infection, site not specified; L89.154 Pressure ulcer of sacral region, stage 4; R32 Unspecified urinary incontinence | CPT/HCPCS: 51705 ==

== ENCOUNTER → 2022-07-31 08:56 | Outpatient (BNVA) | payer MEDICARE, MEDICAID, SELFPAY | PROVIDERS: PCP Family Medicine; Visit Provider Urology | DX: N31.9 Neuromuscular dysfunction of bladder, unspecified (principal); Z93.59 Other cystostomy status; N39.0 Urinary tract infection, site not specified; G82.50 Quadriplegia, unspecified; R33.9 Retention of urine, unspecified | CPT/HCPCS: 51705; 99213 ==

== ENCOUNTER → 2022-10-14 13:57 | Outpatient (BNVA) | payer MEDICARE, SELFPAY | PROVIDERS: PCP Family Medicine; Visit Provider Thoracic Surgery (Cardiothoracic Vascular Surgery) | DX: L89.313 Pressure ulcer of right buttock, stage 3 (principal) | CPT/HCPCS: 99308 ==

== ENCOUNTER 2022-10-15 02:08 | Emergency (ER) | payer MEDICARE, SELFPAY ==
[2022-10-15 02:12] VITALS: BP 164/106; PULSE 86; RESP 20; TEMP 36.4; O2SAT 95; BMI 26.4
--- NOTE | 2022-10-15 02:17 | W.ED.FEMALGU ---
HPI - Female Genitourinary General: Chief complaint: Urogenital-Female Stated complaint: issues with cath Time Seen by Provider: 10/15/22 02:11 Source: patient and EMS Mode of arrival: EMS Limitations: no limitations History of Present Illness: 47-year-old female who has a suprapubic catheter longterm sent her here states they have had a hard time getting it to drain since 7 PM she has had no fever denies any pain she denies any worsening improving factors Associated symptoms: Deny abdominal pain, headache(s) or nausea Review of Systems Const: Denies: fever(s), chills, body aches or change in appetite Eyes: Denies: blurry vision or eye discomfort ENMT: Denies: throat pain or dental pain Card: Denies: chest pain Resp: Denies: dyspnea GI: Denies: abdominal pain, nausea, vomiting or diarrhea : Reports: difficulty voiding Musc: Denies: neck pain or back pain Skin/Breast: Denies: rash Neuro: Denies: headache(s) Psych: Denies: depression Raul/Lymph: Denies: easy bruising All/Imm: Denies: urticaria PFSH ED PFSH: Medical History Hydronephrosis Neurogenic bladder Perforated abdominal viscus Condition resolved Post-traumatic quadriplegia PVD (peripheral vascular disease) Quadriplegia Recurrent sepsis due to urinary tract infection Urinary retention UTI (urinary tract infection) Surgical History H/O bladder repair surgery H/O cystoscopy H/O partial cystectomy H/O Spinal surgery History of hysterectomy History of partial gastrectomy Family History Other CAD (coronary artery disease) Diabetes Hypertension Social History Alcohol intake: never Household members: other Housing: [facility] Marital status: Current occupational status: disabled Physical Exam Const: COMMON NORMALS: no acute distress, patient oriented x3 and healthy appearing HENMT: COMMON NORMALS: normocephalic and atraumatic HEAD & SCALP: normocephalic and atraumatic Eye: COMMON NORMALS: Equal, round and reactive pupils present and EOMs intact bilaterally PUPIL: Yes Equal, round and reactive pupils present Neck/C-Spine: COMMON NORMALS: full ROM and supple Chest: COMMONS NORMALS: normal inspection of the chest and normal palpation of entire chest wall Resp: COMMON NORMALS: normal respiratory effort, No retractions, No use of accessory muscles and clear to auscultation bilaterally AUSCULTATION: clear to auscultation bilaterally Cardio: COMMON NORMALS: regular rate, regular rhythm and No murmurs present (Cardio) RATE: regular rate RHYTHM: regular rhythm GI: COMMON NORMALS: Normal to inspection, nondistended, normoactive bowel sounds present, Soft to palpation, non-tender and no masses PALPATION: Yes Soft to palpation : OTHER: Suprapubic catheter in place is not currently draining Extremity: COMMON NORMALS: normal to inspection and full ROM Neuro: COMMON NORMALS: patient oriented x3, moves all extremities and no focal motor deficits Psych: COMMON NORMALS: mental status grossly normal, Normal thought process present and cooperative THOUGHT PROCESS: Normal thought process present Skin: COMMON NORMALS: no rashes or lesions noted and no wounds GENERAL SKIN EXAM: no rashes or lesions noted Course Vital Signs: Vital signs: Vital Signs Temperature 97.6 F 10/15/22 02:12 Pulse Rate 86 10/15/22 02:12 Respiratory Rate 20 H 10/15/22 02:12 Blood Pressure 164/106 10/15/22 02:12 Pulse Oximetry 95 10/15/22 02:12 MDM - Female Medical Decision Making Patient presents here with dysfunctional Dumont catheter I did inserted just slightly further below the balloon she has good drainage she has no signs of any allergic reaction or irritation she is stable for discharge back to the longterm Discharge Plan Discharge Patient Disposition: Home Clinical Impression: Encounter for suprapubic catheter care Condition: Stable Prescriptions: No Action Linzess 145 mcg capsule 145 mcg PO DAILY fosfomycin tromethamine 3 gram packet 1 packet PO Q3D 30 Days Qty: 10 5RF ascorbic acid (vitamin C) [Vitamin C] 1,000 mg Tablet 1,000 mg PO BID@08,20 pantoprazole 40 mg Tablet,Delayed Release (Dr/Ec) 40 mg PO DAILY lactulose 10 gram/15 mL (15 mL) Solution 30 ml PO TID sennosides-docusate sodium [Senna Plus] 8.6-50 mg Tablet 2 tab PO BID@08,20 pravastatin 40 mg Tablet 40 mg PO BEDTIME naloxone 0.4 mg/mL Solution 0.4 mg IM Q2M PRN (Reason: overdose) acetaminophen 500 mg Tablet 500 mg PO Q6H PRN (Reason: Pain) simethicone 80 mg Tablet,Chewable 80 mg PO TIDWM polyethylene glycol 3350 [Miralax] 17 gram/dose powder 17 g PO DAILY PRN (Reason: constipation) tizanidine 4 mg Tablet 4 mg PO TID@08,14,20 PRN (Reason: unknown) fentanyl 50 mcg/hr Patch 72 Hour 1 patch TRANSDERMAL Q72H Qty: 5 0RF morphine concentrate 100 mg/5 mL (20 mg/mL) solution 5 mg PO Q4H PRN (Reason: Pain) Qty: 30 0RF alprazolam [Xanax] 0.25 mg Tablet 0.25 mg PO TID PRN (Reason: Anxiety) Qty: 10 0RF ondansetron HCl 4 mg Tablet 4 mg PO Q6H PRN (Reason: Nausea) Relistor 12 mg/0.6 mL Syringe 0.6 ml SUBCUT Q3D PRN (Reason: Constipation) gabapentin 600 mg tablet 1,200 mg PO TID docusate sodium [Colace] 100 mg Capsule 100 mg PO BID insulin lispro [Humalog KwikPen Insulin] 100 unit/mL Insulin Pen See Rx Instructions .ROUTE .COMPLEX Rx Instructions: SLIDING SCALE- BLOOD SUGAR 125-150 GIVE 2 UNITS, 151-200 GIVE 4 UNITS, 201-250 GIVE 6 UNITS, 251-300 GIVE 8 UNITS, 301-350 GIVE 10 UNITS, 351-400 GIVE 12 UNITS pregabalin [Lyrica] 50 mg Capsule 50 mg PO BID calcium carbonate [Tums Ultra] 400 mg calcium (1,000 mg) Tablet,Chewable 400 mg PO DAILY PRN (Reason: Heartburn) magnesium hydroxide [Milk of Magnesia] 400 mg/5 mL suspension 5 ml PO DAILY Qty: 355 0RF potassium chloride 20 mEq Tablet Extended Release 20 meq PO DAILY caspofungin 50 mg recon soln 50 mg IV DAILY Qty: 1 0RF metformin 1,000 mg Tablet 1,000 mg PO BID lidocaine 5 % Adhesive Patch,Medicated 1 patch TOPICAL Q12H Rx Instructions: leave on most painful area for up to 12 hrs sertraline 50 mg Tablet 50 mg PO DAILY metoclopramide HCl 10 mg tablet 10 mg PO Q6H Qty: 20 0RF Discharge Orders: Discharge ED (Routine); Ordered 10/15/22 Ordered By: Liliana Anderson Referrals: Shakira Cruz MD [Primary Care Provider] - Hilton Culp MD [Physician] - 1-3 days Discharge Diet: Advance as tolerated Discharge Activity: Resume usual activity Patient Instructions: How to Care for Your Suprapubic Catheter (DC) Coding Level of Care Code ED Manager Video Games for Chg Fwd Exam Comprehensive
[2022-10-15] MEDS: HYDROcodone-acetaminophen 5-325 mg Tablet 1 TAB PO (02:23)
--- NOTE | 2022-10-15 02:42 | PC.NURSE ---
Irrigated catheter. No difficulty, all amount irrigated had returned. Pt denies complaints.
== END 2022-10-15 03:26 | disposition home or self-care (01) ==
PROVIDERS: Emergency Provider Emergency Medicine; PCP Family Medicine
DX: Z46.6 Encounter for fitting and adjustment of urinary device (principal); Z79.84 Long term (current) use of oral hypoglycemic drugs; Z79.4 Long term (current) use of insulin; G82.50 Quadriplegia, unspecified
CPT/HCPCS: 99283

== ENCOUNTER 2022-10-21 07:43 | Inpatient (IN) | payer MEDICARE, SELFPAY ==
[2022-10-21] VITALS (10 sets, daily range): BP systolic 94–150; BP diastolic 57–85; PULSE 75–150; RESP 18–34; TEMP 36.4–39.5; O2SAT 91–96; BMI 25.4; BMI 29.0
--- NOTE | 2022-10-21 07:47 | XR_ITS ---
WS: [id number] Portable AP semiupright chest, 10/21/2022 Clinical Data: dyspnea/cough Comparison: Portable chest, 05/27/2022 Findings: No nodules, masses or effusions are seen. The heart is normal. The pulmonary vascularity is not increased. No pneumothorax is seen. There are bilateral patchy opacities in both lungs which can be seen with atelectasis and/or diffuse pneumonia. The patient has a poor inspiratory effort. There is a dextroscoliosis of the thoracic spine. There are left upper quadrant surgical clips. Orthopedic devices from a cervical fusion are partly visible. XR/XR chest 1V portable [id number] Impression: Bilateral patchy pulmonary opacities consistent with diffuse viral pneumonia an d/or atelectasis.
--- NOTE | 2022-10-21 07:47 | ECG_ITS ---
[facility] Test Date: 2022-10-21 Pat Name: Rosanne Morales Department: Room: Gender: Female Or Director: : 1975 Requested By: Devin Stewart Order Number: [id number] Helen MD: Yuri Beyer M.D. Measurements Intervals [place] Rate: 129 P: 46 NE: 130 QRS: -2 QRSD: 78 T: 29 QT: 334 QTc: 489 Interpretive Statements SINUS TACHYCARDIA MODERATE VOLTAGE CRITERIA FOR LVH, CONSIDER NORMAL VARIANT [MEETS CRITERIA IN ONE OF: R(aVL), S(V1), R(V5), R(V5/V6)+S(V1)] NONSPECIFIC T-WAVE ABNORMALITY Compared to ECG 05/22/2022 16:00:30 Sinus rhythm no longer present T-wave abnormality still present Electronically Signed On 10-21-2022 14:11:30 A&P MECHANIC by Yuri Beyer M.D. [id number]
--- NOTE | 2022-10-21 08:17 | ED_ITS ---
HPI - Fever General: Chief Complaint: Fever Stated Complaint: Confused/Fever Time Seen by Provider: 10/21/22 07:46 Source: patient Mode of arrival: EMS History of Present Illness: 47-year-old female resident of [place] she is quadriplegic from acute spinal cord injury presents emergency room with complaint of a temp of 104 coughing confused generally not feeling well. She has usual urine output from her Dumont. No vomiting or diarrhea she is awake alert actually able to give fairly good answers she denies abdominal pain or chest pain. He has a little bit of a cough. MD elicited complaint: fever Onset (ago): hour(s) Exacerbating factors: nothing Relieving factors: nothing Associated symptoms: Reports chills; Deny abdominal pain, flank pain, confusion, cough, diarrhea, dysuria, extremity pain, headache(s), myalgias, nasal congestion, nausea, night sweats, rash, rhinorrhea, short of breath, sinus pain, stiffness, sore throat, vaginal discharge, vomiting or weight loss Treatments prior to arrival fever: acetaminophen Review of Systems Const: Reports: fever(s), chills, fatigue and malaise; Denies: night sweats ENMT: Denies: nasal congestion or sinus pain GI: Denies: abdominal pain, nausea, vomiting or diarrhea : Denies: flank pain, dysuria or vaginal discharge Musc: Denies: extremity pain Neuro: Denies: headache(s) or confusion PFSH ED PFSH: Medical History (Updated 10/21/22 @ 14:49 by Devin Witt DO) Hydronephrosis Neurogenic bladder Post-traumatic quadriplegia PVD (peripheral vascular disease) Quadriplegia Recurrent sepsis due to urinary tract infection Urinary retention UTI (urinary tract infection) Surgical History (Updated 10/21/22 @ 13:49 by Debi Butler MD) H/O bladder repair surgery H/O cystoscopy H/O partial cystectomy H/O Spinal surgery History of hysterectomy History of partial gastrectomy (12/2019) due to perforated viscous from gastric ulcer Family History Other CAD (coronary artery disease) Diabetes Hypertension Social History Alcohol intake: never Household members: other Housing: [facility] Marital status: Current occupational status: disabled Physical Exam Const: COMMON NORMALS: no acute distress GENERAL APPEARANCE: cooperative and comfortable ORIENTATION/CONSCIOUSNESS: Yes awake, Yes oriented to person, Yes oriented to place and Yes oriented to time HENMT: COMMON NORMALS: normocephalic, atraumatic and hearing grossly normal bilaterally HEAD & SCALP: normocephalic and atraumatic Eye: COMMON NORMALS: EOMs intact bilaterally and no scleral icterus Lymph: LYMPHATIC: no lymphadenopathy noted and no lymphedema noted Resp: COMMON NORMALS: normal respiratory effort, No retractions, No use of accessory muscles and clear to auscultation bilaterally AUSCULTATION: clear to auscultation bilaterally Cardio: COMMON NORMALS: regular rate, regular rhythm and No murmurs present (Cardio) RATE: regular rate RHYTHM: regular rhythm GI: COMMON NORMALS: Soft to palpation and No hepatosplenomegaly present AUSCULTATION: Yes normoactive bowel sounds PALPATION: Yes Soft to palpation, No Tenderness to palpation present (GI), No Guarding due to palpation present (GI) and Yes No hepatosplenomegaly present Extremity: COMMON NORMALS: normal to inspection, capillary refill normal, no clubbing, cyanosis or edema, no calf tenderness and no pedal edema Neuro: SENSORIUM/ORIENTATION: Yes oriented to person, Yes oriented to place and Yes oriented to time Skin: COMMON NORMALS: no rashes or lesions noted GENERAL SKIN EXAM: no rashes or lesions noted Course Vital Signs: Vital signs: Vital Signs Temperature 98.4 F 10/21/22 13:30 Pulse Rate 75 10/21/22 12:30 Respiratory Rate 31 H 10/21/22 12:25 Blood Pressure 128/65 10/21/22 12:30 Pulse Oximetry 95 10/21/22 12:30 Oxygen Delivery Me thod 10/21/22 12:30 Oxygen Flow Rate 2 10/21/22 12:30 MDM - Fever Medical Decision Making Pneumonia tachycardia and hypoxia. Shows running a high-grade fever labs imaging EKG reviewed. Cultures started surgeon antibiotics cussed with hospitalist orders. Medical Records I reviewed the patient's medical records. Lab Data I reviewed the patient's lab results. 10/21/22 09:20 10/21/22 08:55 Radiology Impressions Chest X-Ray 10/21/22 07:47 Impression: Bilateral patchy pulmonary opacities consistent with diffuse viral pneumonia and /or atelectasis. Laboratory Results WBC 7.0 10^3/uL (4.0-10.0) 10/21/22 09:20 Corrected WBC Cancelled 10/21/22 08:55 RBC 4.74 10^6/uL (4.1-5.3) 10/21/22 09:20 Hgb 12.8 g/dL (11.5-15.3) 10/21/22 09:20 Hct 44.2 % (37.0-47.0) 10/21/22 09:20 MCV 93.2 fl (81-99) 10/21/22 09:20 MCH 27.0 pg (28.0-34.0) L 10/21/22 09:20 MCHC 29.0 g/dL (30.0-36.0) L 10/21/22 09:20 RDW 15.1 % (12.1-15.1) 10/21/22 09:20 Plt Count 209 10^3/cmm (130-400) 10/21/22 09:20 MPV 9.9 fL (7.4-10.4) 10/21/22 09:20 Gran % Cancelled 10/21/22 08:55 Neut % (Auto) 84.1 % 10/21/22 09:20 Lymph % (Auto) 8.6 % 10/21/22 09:20 Cook % (Auto) 5.6 % 10/21/22 09:20 Eos % (Auto) 0.7 % 10/21/22 09:20 Baso % (Auto) 0.4 % 10/21/22 09:20 Neut # (Auto) 5.87 10^3/uL (1.8-7.7) 10/21/22 09:20 Lymph # (Auto) 0.6 10^3/uL (0.8-4.8) L 10/21/22 09:20 Cook # (Auto) 0.4 10^3/uL (0.2-0.9) 10/21/22 09:20 Eos # (Auto) 0.1 10^3/uL (0.0-0.8) 10/21/22 09:20 Baso # (Auto) 0.0 10^3/uL (0.0-0.1) 10/21/22 09:20 Absolute Gran (auto) Cancelled 10/21/22 08:55 Nucleated RBC % (auto) 0 % 10/21/22 09:20 Nucleated RBCs # 0.0 /100WBC 10/21/22 09:20 Sodium 137 mmol/L (136-145) 10/21/22 08:55 Potassium 4.2 mmol/L (3.5-5.1) 10/21/22 08:55 Chloride 98 mmol/L (98-107) 10/21/22 08:55 Carbon Dioxide 25 mmol/L (22-29) 10/21/22 08:55 Anion Gap 18.2 (5-19) 10/21/22 08:55 BUN 17 mg/dL (6-20) 10/21/22 08:55 Creatinine 0.8 mg/dL (0.5-0.9) 10/21/22 08:55 GFR Calculation 76.9 mL/min (90-130) L 10/21/22 08:55 Glucose 169 mg/dL (65-115) H 10/21/22 08:55 Calculated Osmolality 289 mOsm/kg (285-295) 10/21/22 08:55 Lactic Acid 3.7 mmol/L (0.5-2.2) H 10/21/22 08:55 Lactic Acid (Sepsis) 3.7 mmol/L (0.5-2.2) H 10/21/22 12:18 Calcium 9.1 mg/dL (8.5-10.5) 10/21/22 08:55 Magnesium 2.1 mg/dL (1.7-2.3) 10/21/22 08:55 Total Bilirubin 0.2 mg/dL (0.15-1.2) 10/21/22 08:55 AST 17 U/L (0-32) 10/21/22 08:55 ALT 16 U/L (0-33) 10/21/22 08:55 Alkaline Phosphatase 87 U/L (35-105) 10/21/22 08:55 Total Protein 7.5 g/dL (6.6-8.7) 10/21/22 08:55 Albumin 3.8 g/dL (3.5-5.2) 10/21/22 08:55 Globulin 3.7 g/dL (1.3-4.6) 10/21/22 08:55 Lipase 17 U/L (13-60) 10/21/22 08:55 Urine Color Yellow (Yellow) 10/21/22 11:45 Urine Appearance Hazy (CLEAR) A 10/21/22 11:45 Urine pH 8 (5-7) H 10/21/22 11:45 Ur Specific [place] 1.010 (1.005-1.030) 10/21/22 11:45 Urine Protein Neg (Negative) 10/21/22 11:45 Urine Glucose (UA) Norm (Normal) 10/21/22 11:45 Urine Ketones Negative (Negative) 10/21/22 11:45 Urine Blood 2+ (Negative) H 10/21/22 11:45 Urine Nitrate Negative (Negative) 10/21/22 11:45 Urine Bilirubin Neg (Negative) 10/21/22 11:45 Urine Urobilinogen Norm mg/dL (Negative) 10/21/22 11:45 Ur Leukocyte Esterase 2+ (Negative) H 10/21/22 11:45 Urine RBC 0-4 /hpf (0-2) H 10/21/22 11:45 Urine WBC 5-10 /hpf (0-5) H 10/21/22 11:45 Ur Squamous Epith Cells 5-10 /hpf (0-5) H 10/21/22 11:45 Ur Renal Epithelial Cell 0-4 /hpf 10/21/22 11:45 Calcium Oxalate Crystal 0-4 /hpf H 10/21/22 11:45 Triple Phos Crystals 0-4 /hpf H 10/21/22 11:45 Amorphous Sediment Not Reportable 10/21/22 11:45 Urine Bacteria 4+ /hpf (NONE) H 10/21/22 11:45 Serum Ketones Negative (Negative) 10/21/22 09:20 Coronavirus 229E (PCR) Not detected (NOT DETECT) 10/21/22 11:50 Influenza Type A Ag negative (Negative) 10/21/22 08:35 Influenza Type B Ag negative (Negative) 10/21/22 08:35 SARS-CoV-2 (PCR) Not detected (NOT DETECT) 10/21/22 11:50 Discharge Plan Discharge Patient Disposition: Admitted As Inpatient Admit Provider: Debi Butler Clinical Impression: Pneumonia, Quadriplegia, Suprapubic catheter, Acute respiratory failure with hypoxia Condition: Stable Coding Level of Care Code ED Commodity Director for Chg Fwd Exam Comprehensive
[2022-10-21] MEDS: sodium chloride 0.9% 1,000 ML 999 ML IV ×2 (09:12→16:14)
[2022-10-21 09:27] LABS: Alanine Aminotransferase 16 U/L (0-33); Albumin Level 3.8 g/dL (3.5-5.2); Alkaline Phosphatase 87 U/L (35-105); Aspartate Amino Transferase 17 U/L (0-32); Blood Urea Nitrogen 17 mg/dL (6-20); Calcium 9.1 mg/dL (8.5-10.5); Carbon Dioxide 25 mmol/L (22-29); Chloride 98 mmol/L (98-107); Creatinine Clr Calc Pharmacy 81.8947; Globulin 3.7 g/dL (1.3-4.6); Glomerular Filtration Rate 76.9 mL/min (90-130); Glucose 169 mg/dL (65-115); Lactic Sepsis W/Reflex 3.7 mmol/L (0.5-2.2); Lipase 17 U/L (13-60); Magnesium 2.1 mg/dL (1.7-2.3); Osmolality Calculated 289 mOsm/kg (285-295); Sodium 137 mmol/L (136-145); Total Bilirubin 0.2 mg/dL (0.15-1.2); Total Protein 7.5 g/dL (6.6-8.7)
[2022-10-21 09:29] LABS: Influenza A by IFA negative (Negative); Influenza B by IFA negative (Negative)
[2022-10-21 09:32] LABS: Basophils % 0.4 %; Eosinophils # 0.1 10^3/uL (0.0-0.8); Eosinophils % 0.7 %; Hematocrit 44.2 % (37.0-47.0); Hemoglobin 12.8 g/dL (11.5-15.3); Lymphocytes # 0.6 10^3/uL (0.8-4.8); Lymphocytes % 8.6 %; Mean Corpuscular Volume 93.2 fl (81-99); Mean Platelet Volume 9.9 fL (7.4-10.4); Monocytes # 0.4 10^3/uL (0.2-0.9); Monocytes % 5.6 %; Neutrophils # 5.87 10^3/uL (1.8-7.7); Neutrophils % 84.1 %; Nucleated Red Blood Cells % 0 %; Platelet Count 209 10^3/cmm (130-400); Red Blood Count 4.74 10^6/uL (4.1-5.3); Red Cell Distribution Width 15.1 % (12.1-15.1)
[2022-10-21 09:34] LABS: Slide Review Slide Review Perform
[2022-10-21 09:34] LABS: Anion Gap 18.2 (5-19); Potassium 4.2 mmol/L (3.5-5.1)
[2022-10-21] MEDS: ketorolac 60 mg/2 mL INJ IM (09:58)
[2022-10-21 09:59] LABS: Ketone (Acetest) Serum Negative (Negative)
[2022-10-21 10:53] LABS: Reflex Lactate Order REFLEX LACTIC ORDERD
[2022-10-21] MEDS: piperacillin-tazobactam 3.375 GM in sodium chloride 0.9% (plus) 50 ML IV (10:56)
[2022-10-21] MEDS: levofloxacin-dextrose 5 % 750 MG/150 ML PREMIX 100 MG IV (10:56)
[2022-10-21] MEDS: morphine 4 mg/mL SDV 1 mL 2 MG IVP (12:25)
[2022-10-21 12:36] LABS: Add Urine Microscopic? YES; Bilirubin Urine Neg (Negative); Blood Urine 2+ (Negative); Glucose Urine UA Norm (Normal); Ketones Urine Negative (Negative); Leukocyte Esterase Urine 2+ (Negative); Nitrate Urine Negative (Negative); Protein Urine Neg (Negative); RBC Urine 0-4 /hpf (0-2); Urine Appearance Hazy (CLEAR); Urine Color Yellow (Yellow); Urobilinogen Urine Norm (Negative); pH Urine 8 (5-7)
[2022-10-21 12:37] LABS: Add Urine Culture? Yes; Bacteria Urine 4+ /hpf; Calcium Oxalate Crystals Urine 0-4 /hpf; Renal Epithelial Cells Urine 0-4 /hpf; Triple Phosphate Crystal Urine 0-4 /hpf
[2022-10-21 12:45] LABS: Lactic Acid level (Lactate) 3.7 mmol/L (0.5-2.2)
--- NOTE | 2022-10-21 13:17 | PM.HP ---
Providers/Chief Complaint Admitting Physician: Debi Butler MD Primary Care Provider: Shakira Cruz MD Chief Complaint: Confused/Fever History of Present Illness Rosanne Morales is a 47 year old female resident of [facility] presented to the emergency room with chief complaint of fever and general malaise. Her symptoms began a couple of days ago. She started hurting more than her baseline all over. Fever developed last night. Influenza has been going around the usp. She is up-to-date on her flu shot this year, has had Pneumovax and has had COVID vaccination plus at least 1 booster. She has recently been on antibiotics for urinary tract infection. Of outside records shows that she was on Augmentin. Mrs. Morales has a history of cervical cord injury with quadriplegia. She is dependent on ADLs. She does have a chronic suprapubic catheter and issues with recurrent infections including ESBL E. coli. She has had a little bit of a cough and some congestion lately but has not been able to get anything coughed up. Her mouth has been very dry lately. Does report a sore throat. No reports of any vomiting. She is chronically constipated and takes multiple medications for this. She reports chills alternating with being too hot. She has been having headaches. Her biggest complaint is hurting all over currently. She has a chronic decubitus followed by wound care. It was most recently debrided last week. No other new sores that she is aware of. Work-up in the emergency room included a normal white count, elevated lactic acid and patchy bilateral pulmonary opacities described as consistent with diffuse viral pneumonia or atelectasis. Influenza and COVID testing were negative. Urinalysis showed 2+ leukocyte esterase with negative nitrites, 5-10 white blood cells and 5-10 epithelial cells. Temperature in the emergency room was as high as 103 degrees. Tachycardia was noted with fever but blood pressures were stable. She was requiring oxygen therapy at 2 to 3 L by nasal cannula. She is not normally on oxygen. Hospitalist were consulted for admission and further care. History is obtained from review of records and talking with patient. Review of Systems Const: Reports: fever(s), chills, body aches, fatigue and malaise ENMT: Reports: throat pain and dry mouth (Severe) Card: Reports: palpitations, swelling of feet/ankles and other (Nonexertional due to quadriplegia); Denies: chest pain Resp: Reports: dyspnea, non-productive cough and chest congestion; Denies: pain on inspiration or hemoptysis GI: Reports: constipation (feels like she has to go often but does not); Denies: nausea, vomiting or diarrhea : Reports: other (Sensation of full bladder) Musc: Reports: back pain and other (Hurting all over) Skin/Breast: Reports: lesions (Right buttock, wound care comes to [facility]) Neuro: Reports: headache(s) and other (Quadriplegic with some sensation but no motor below the neck) Psych: Reports: anxiety and depression Raul/Lymph: Denies: easy bruising or easy bleeding Medications/Allergies Home Medications Medication Instructions Recorded Confirmed Last Taken Type ascorbic acid (vitamin C) 1,000 mg 1,000 mg PO BID@,04/22/20 10/21/22 10/20/22 History tablet (Vitamin C) pantoprazole 40 mg tablet,delayed 40 mg PO DAILY 04/22/20 10/21/22 10/21/22 History release sennosides 8.6 mg-docusate sodium 2 tab PO BID@,05/28/20 10/21/22 10/20/22 History 50 mg tablet (Senna Plus) alprazolam 0.25 mg tablet (Xanax) 0.25 mg PO TID PRN Anxiety #10 tabs 11/22/20 10/21/22 10/21/22 Rx fentanyl 50 mcg/hr transdermal 1 patch transdermal Q72H #5 ea 11/22/20 10/21/22 10/18/22 Rx patch morphine concentrate 100 mg/5 mL 5 mg (0.25 mL) PO Q4H PRN Pain #30 11/22/20 10/21/22 10/21/22 Rx (20 mg/mL) oral solution mL acetaminophen 500 mg tablet 500 mg PO Q6H PRN Pain 08/17/21 10/21/22 10/02/22 History naloxone 0.4 mg/mL injection 0.4 mg IM Q2M PRN overdose 08/17/21 10/21/22 Unknown History solution pravastatin 40 mg tablet 40 mg PO BEDTIME 08/17/21 10/21/22 10/20/22 History simethicone 80 mg chewable tablet 80 mg PO TIDWM 08/17/21 10/21/22 10/20/22 History methylnaltrexone 12 mg/0.6 mL 0.6 ml SUBCUT Q3D PRN Constipation 01/24/22 10/21/22 03/27/22 History subcutaneous syringe (Relistor) ondansetron HCl 4 mg tablet 4 mg PO Q6H PRN Nausea 01/24/22 10/21/22 10/21/22 History docusate sodium 100 mg capsule 100 mg PO BID 02/11/22 10/21/22 10/20/22 History (Colace) gabapentin 600 mg tablet 1,200 mg PO TID 02/11/22 10/21/22 10/20/22 History calcium carbonate 400 mg calcium 400 mg PO DAILY PRN Heartburn 03/06/22 10/21/22 06/03/22 History (1,000 mg) chewable tablet (Tums Ultra) insulin lispro 100 unit/mL See Rx Instructions .Route .COMPLEX 03/06/22 10/21/22 10/20/22 History subcutaneous pen (Humalog KwikPen (U-100) Insulin) pregabalin 50 mg capsule (Lyrica) 50 mg PO BID 03/06/22 10/21/22 10/20/22 History magnesium hydroxide 400 mg/5 mL 5 ml PO DAILY #355 mL 03/12/22 10/21/22 10/21/22 Rx oral suspension (Milk of Magnesia) potassium chloride 20 mEq 20 meq PO DAILY 03/28/22 10/21/22 10/20/22 History tablet,extended release lidocaine 5 % topical patch 1 patch topical Q12H 05/12/22 10/21/22 10/20/22 History metformin 1,000 mg tablet 1,000 mg PO BID 05/12/22 10/21/22 10/20/22 History sertraline 50 mg tablet 50 mg PO DAILY 05/12/22 10/21/22 10/20/22 History linaclotide 145 mcg capsule 145 mcg PO DAILY 07/31/22 10/21/22 10/21/22 History (Linzess) cyclobenzaprine 5 mg tablet 5 mg PO TID 10/21/22 10/21/22 10/20/22 History diclofenac sodium 1 % topical gel 2 g topical BID 10/21/22 10/21/22 10/20/22 History lidocaine 4 % topical cream 1 applic topical BID PRN Pain 10/21/22 10/21/22 Unknown History methenamine hippurate 1 gram tablet 1 g PO BID 10/21/22 10/21/22 10/20/22 History metoclopramide HCl 10 mg tablet 10 mg PO Q6H PRN nausea and 10/21/22 10/21/22 10/20/22 History vomiting oxybutynin chloride 5 mg tablet 5 mg PO TID 10/21/22 10/21/22 10/20/22 History sitagliptin 25 mg tablet (Januvia) 25 mg PO DAILY 10/21/22 10/21/22 10/20/22 History sitagliptin 50 mg tablet (Januvia) 50 mg PO DAILY 10/21/22 10/21/22 10/20/22 History Allergies Allergy/AdvReac Type Severity Reaction Status Date / Time No Known Allergies Allergy Verified 10/16/22 11:05 PFSH Acute PFSH: Medical History (Updated 10/21/22 @ 20:16 by Debi Butler MD) Anxiety Chronic kidney disease COVID-19 (~2019) Depression Diabetes mellitus, type II GERD (gastroesophageal reflux disease) History of ESBL E. 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 Neurogenic bladder Neuropathic pain PVD (peripheral vascular disease) Quadriplegia secondary to trauma Recurrent sepsis due to urinary tract infection Sacral decubitus ulcer Suprapubic catheter Therapeutic opioid induced constipation Urinary retention Surgical History (Updated 10/21/22 @ 13:49 by Debi Butler MD) H/O bladder repair surgery H/O cystoscopy H/O partial cystectomy H/O Spinal surgery History of hysterectomy History of partial gastrectomy (12/2019) due to perforated viscous from gastric ulcer Family History Other CAD (coronary artery disease) Diabetes Hypertension Social History (Updated 10/21/22 @ 19:56 by Debi Butler MD) Smoking and tobacco status: never smoked Alcohol intake: never Substance/Drug Use: never Housing: Alf Marital status: Current occupational status: disabled Vitals/I&O/Wt Last Vital Signs Temp 103.1 F H 10/21/22 09:31 Pulse 75 10/21/22 12:30 Resp 31 H 10/21/22 12:25 BP 128/65 10/21/22 12:30 Pulse Ox 95 10/21/22 12:30 O2 Del Method 10/21/22 12:30 O2 Flow Rate 2 10/21/22 12:30 10/20/22 10/21/22 10/21/22 22:59 06:59 14:59 Intake Total 1050 / 1050 Balance 1050 / 1050 Weight last 48 hrs Weight 67.132 kg Physical Exam Narrative: Constitutional: Asleep, easily arousable, acutely ill-appearing but able to provide history HEENT: Normocephalic, facies is flushed, very dry lips and oropharynx, conjunctive are injected, nasopharynx is clear Neck: Large but supple Respiratory: Shallow respirations, tachypnea, no wheezes or retractions, speaking predominantly in a few word sentences with frequent pauses, oxygen tubing in place, no wheezes noted anteriorly, decreased both bases, no rhonchi Cardiovascular: Regular rate and rhythm, distant heart sounds Abdomen: Soft, nontender to palpation, positive but slow bowel sounds : Suprapubic catheter in place with dark yellow urine with some sediment noted, no blood seen Extremities: Lower extremities with bilateral pitting edema, extension contractures of both ankles with both heels and heel protectors, no palpable cords noted, no complaints of increased pain or pressure sensation with calf palpation, some flexion contractures of fingers of both hands right more so than left Skin: Other than red face and flushed appearance, skin is pale, skin of both feet is dry and scaling on the soles and around the toes, palms are clean and soft Neuro: Speech soft but clear, face symmetric, some sensation to touch noted to hands more so than lower extremities, no involuntary or purposeful movements below the head, is able to hit call light with neck Psych: Anxious and scared appearing in addition to acute ill appearance but cooperative, oriented to person place and situation Data 10/21/22 09:20 10/21/22 08:55 Other Labs: Radiology Impressions Chest X-Ray 10/21/22 07:47 Impression: Bilateral patchy pulmonary opacities consistent with diffuse viral pneumonia and/or atelectasis. Laboratory Results WBC 7.0 10^3/uL (4.0-10.0) 10/21/22 09:20 Corrected WBC Cancelled 10/21/22 08:55 RBC 4.74 10^6/uL (4.1-5.3) 10/21/22 09:20 Hgb 12.8 g/dL (11.5-15.3) 10/21/22 09:20 Hct 44.2 % (37.0-47.0) 10/21/22 09:20 MCV 93.2 fl (81-99) 10/21/22 09:20 MCH 27.0 pg (28.0-34.0) L 10/21/22 09:20 MCHC 29.0 g/dL (30.0-36.0) L 10/21/22 09:20 RDW 15.1 % (12.1-15.1) 10/21/22 09:20 Plt Count 209 10^3/cmm (130-400) 10/21/22 09:20 MPV 9.9 fL (7.4-10.4) 10/21/22 09:20 Gran % Cancelled 10/21/22 08:55 Neut % (Auto) 84.1 % 10/21/22 09:20 Lymph % (Auto) 8.6 % 10/21/22 09:20 [place] % (Auto) 5.6 % 10/21/22 09:20 Eos % (Auto) 0.7 % 10/21/22 09:20 Baso % (Auto) 0.4 % 10/21/22 09:20 Neut # (Auto) 5.87 10^3/uL (1.8-7.7) 10/21/22 09:20 Lymph # (Auto) 0.6 10^3/uL (0.8-4.8) L 10/21/22 09:20 [place] # (Auto) 0.4 10^3/uL (0.2-0.9) 10/21/22 09:20 Eos # (Auto) 0.1 10^3/uL (0.0-0.8) 10/21/22 09:20 Baso # (Auto) 0.0 10^3/uL (0.0-0.1) 10/21/22 09:20 Absolute Gran (auto) Cancelled 10/21/22 08:55 Nucleated RBC % (auto) 0 % 10/21/22 09:20 Nucleated RBCs # 0.0 /100WBC 10/21/22 09:20 Sodium 137 mmol/L (136-145) 10/21/22 08:55 Potassium 4.2 mmol/L (3.5-5.1) 10/21/22 08:55 Chloride 98 mmol/L (98-107) 10/21/22 08:55 Carbon Dioxide 25 mmol/L (22-29) 10/21/22 08:55 Anion Gap 18.2 (5-19) 10/21/22 08:55 BUN 17 mg/dL (6-20) 10/21/22 08:55 Creatinine 0.8 mg/dL (0.5-0.9) 10/21/22 08:55 GFR Calculation 76.9 mL/min (90-130) L 10/21/22 08:55 Glucose 169 mg/dL (65-115) H 10/21/22 08:55 POC Glucose 141 mg/dL (70-110) H 10/21/22 17:17 Calculated Osmolality 289 mOsm/kg (285-295) 10/21/22 08:55 Lactic Acid 3.7 mmol/L (0.5-2.2) H 10/21/22 08:55 Lactic Acid (Sepsis) 3.7 mmol/L (0.5-2.2) H 10/21/22 12:18 Calcium 9.1 mg/dL (8.5-10.5) 10/21/22 08:55 Magnesium 2.1 mg/dL (1.7-2.3) 10/21/22 08:55 Total Bilirubin 0.2 mg/dL (0.15-1.2) 10/21/22 08:55 AST 17 U/L (0-32) 10/21/22 08:55 ALT 16 U/L (0-33) 10/21/22 08:55 Alkaline Phosphatase 87 U/L (35-105) 10/21/22 08:55 Total Protein 7.5 g/dL (6.6-8.7) 10/21/22 08:55 Albumin 3.8 g/dL (3.5-5.2) 10/21/22 08:55 Globulin 3.7 g/dL (1.3-4.6) 10/21/22 08:55 Lipase 17 U/L (13-60) 10/21/22 08:55 Urine Color Yellow (Yellow) 10/21/22 11:45 Urine Appearance Hazy (CLEAR) A 10/21/22 11:45 Urine pH 8 (5-7) H 10/21/22 11:45 Ur Specific [place] 1.010 (1.005-1.030) 10/21/22 11:45 Urine Protein Neg (Negative) 10/21/22 11:45 Urine Glucose (UA) Norm (Normal) 10/21/22 11:45 Urine Ketones Negative (Negative) 10/21/22 11:45 Urine Blood 2+ (Negative) H 10/21/22 11:45 Urine Nitrate Negative (Negative) 10/21/22 11:45 Urine Bilirubin Neg (Negative) 10/21/22 11:45 Urine Urobilinogen Norm mg/dL (Negative) 10/21/22 11:45 Ur Leukocyte Esterase 2+ (Negative) H 10/21/22 11:45 Urine RBC 0-4 /hpf (0-2) H 10/21/22 11:45 Urine WBC 5-10 /hpf (0-5) H 10/21/22 11:45 Ur Squamous Epith Cells 5-10 /hpf (0-5) H 10/21/22 11:45 Ur Renal Epithelial Cell 0-4 /hpf 10/21/22 11:45 Calcium Oxalate Crystal 0-4 /hpf H 10/21/22 11:45 Triple Phos Crystals 0-4 /hpf H 10/21/22 11:45 Amorphous Sediment Not Reportable 10/21/22 11:45 Urine Bacteria 4+ /hpf (NONE) H 10/21/22 11:45 Serum Ketones Negative (Negative) 10/21/22 09:20 Coronavirus 229E (PCR) Not detected (NOT DETECT) 10/21/22 11:50 Influenza Type A Ag negative (Negative) 10/21/22 08:35 Influenza Type B Ag negative (Negative) 10/21/22 08:35 SARS-CoV-2 (PCR) Not detected (NOT DETECT) 10/21/22 11:50 Micro: Microbiology 10/21/22 09:20 Blood Culture - Preliminary Blood SPECIMEN COLLECTED 10/21/22 08:55 Blood Culture - Preliminary Blood SPECIMEN COLLECTED A&P Assessment and plan (1) Pneumonia: Presumptive diagnosis at the time of admission based on abnormality on radiological interpretation of chest x-ray, fever of 103, hypoxemia and recent cough and general malaise described. Based on available history including influenza present at the nursing facility and normal white blood count with some lymphopenia, viral process strongly suspected however COVID PCR and influenza testing are negative at the time of admission. Could be early bacterial infection. While patient is currently febrile with associated appropriate tachycardia for temperature along with an elevation in lactic acid, she is not currently meeting sepsis 3 diagnostic criteria though at risk for progression to such without appropriate care. Has been on antibiotics outpatient for coverage of UTI which has a potential to complicate diagnostic endeavors at this time. Infections in other locations could present similarly but not necessarily account for hypoxemia or respiratory complaints except in specific situations. Often when patient has presented similarly infection was urinary source in nature. (2) Recurrent UTI: Associated with suprapubic catheter. Urinalysis currently is abnormal with positive leukocyte esterase and does have some white blood cells but also squamous epithelial cells present. Challenge in this situation is that she is already been on antibiotics in the outpatient setting. Review of records showed Augmentin. Partially treated urinary infection is considered present on admission. Patient has a known history of ESBL E. coli. She is on chronic methenamine and vitamin C. Follows with Dr. Culp. Suprapubic catheter last replaced a few months ago. On chronic oxybutynin also. (3) Stage III pressure ulcer of right buttock: Present on admission, followed by wound care outpatient, debrided last week. Visual appearance appears unchanged from documented description of wound at that time. (4) Diabetes mellitus, type II: On chronic insulin therapy with peripheral neuropathy and chronic kidney disease stage IIIa; also on Sitagliptin and metformin chronically (5) Hyperlipidemia: Chronically on statin therapy (6) penitentiary prescription opiate use: Chronically fentanyl patch and as needed oral morphine for breakthrough along with Flexeril, diclofenac topical gel, gabapentin, lidocaine patches, Lyrica (7) Therapeutic opioid induced constipation: On chronic Relistor and Linzess along with Colace/Senokot S (8) Anxiety and depression: On chronic sertraline and alprazolam as needed Plan Gastroesophageal reflux disease on chronic PPI and as needed metaclopramide/zofran Polypharmacy Inpatient admission Empirically with Primaxin and vancomycin initially We will go on and initiate Tamiflu for coverage of possible false negative influenza screening Blood cultures were collected Urine culture ordered Sputum culture ordered Additional fluid bolus and then continue IVFs Monitor urine outout Usual suprapubic catheter care Check procalcitonin, CRP, room air ABG, CK and D-dimer Continue oxygen therapy weaning as able Additional work-up and treatment as indicated Continue usual wound care with Hydrofera Blue and foam dressing Sliding scale insulin Continue Januvia but hold metformin currently Continue statin therapy Continue fentanyl patch and morphine liquid for breakthrough pain along with usual gabapentin and Lyrica dosing, lidocaine patches, diclofenac gel and Flexeril Continue Linzess if home formulation available and Relistor plus stool softeners Vitamin C and if available methenamine plus usual oxybutynin Continue home sertraline and as needed Xanax Home PPI and antiemetics plus simethicone Lovenox for DVT prophylaxis Regular turning and full assistance with ADLs Supportive care otherwise Anticipate discharge back to skilled facility for ongoing care. Previously patient has required PICC line placement for prolonged IV antibiotic therapy. Cannot presently rule out potential need again. Findings, concerns and plans as well as overall medication management were reviewed with patient and she was given an opportunity to ask questions Full code Attestations Medical Necessity Statement*: Anticipated stay greater than two midnights in a patient presenting with high fever, general malaise, cough with known exposure to influenza found to have hypoxemia and chest x-ray imaging suggestive of possible viral pneumonitis. Influenza and COVID testing however are negative at admission. Patient has been on recent antibiotics complicating evaluation for bacterial source of infection. Other foci of infection beyond pulmonary is possible including urine and wound, as are some noninfectious etiologies. While not currently meeting sepsis 3 criteria, at significantly high risk of progression to severe sepsis and septic shock without appropriate treatment in a monitored setting. Has a known history of such on multiple occasions in the past. Coding Level of Care Code Acute Manager Image for g Fwd Diagnoses Pneumonia J18.9 Recurrent UTI N39.0 Stage III pressure ulcer of right buttock L89.313 Diabetes mellitus, type II E11.9 Hyperlipidemia E78.5 penitentiary prescription opiate use Z79.891 Therapeutic opioid induced constipation K59.03; T40.2X5A Anxiety and depression F41.9; F32.A
[2022-10-21 14:12] LABS: Adenovirus Not Detected (NOT DETECT); Chlamydia Pneumoniae Not Detected (NOT DETECT); Coronavirus 229E,HKU1,NL63,OC4 Not Detected (NOT DETECT); Human Metapneumovirus Not Detected (NOT DETECT); Human Rhinovirus/Enterovirus Not Detected (NOT DETECT); Influenza A Not Detected (NOT DETECT); Influenza A H1 Not Detected (NOT DETECT); Influenza A H1-2009 Not Detected (NOT DETECT); Influenza A H3 Not Detected (NOT DETECT); Influenza B Not Detected (NOT DETECT); Mycoplasma Pneumoniae Not Detected (NOT DETECT); Parainfluenza Virus Type 1 Not Detected (NOT DETECT); Parainfluenza Virus Type 2 Not Detected (NOT DETECT); Parainfluenza Virus Type 3 Not Detected (NOT DETECT); Parainfluenza Virus Type 4 Not Detected (NOT DETECT); Respiratory Syncytial Virus A Not Detected (NOT DETECT); Respiratory Syncytial Virus B Not Detected (NOT DETECT); SARS-COV-2 Not Detected (NOT DETECT)
[2022-10-21 15:03] LABS: Procalcitonin 0.48 ng/mL (0-0.5)
[2022-10-21] MEDS: gabapentin 300 mg Capsule 1200 MG PO ×2 (16:08→20:54)
[2022-10-21] MEDS: oxybutynin 5 mg Tablet PO ×2 (16:08→20:55)
[2022-10-21] MEDS: lidocaine 5% Patch 1 PATCH TOPICAL ×2 (16:08→20:58)
[2022-10-21] MEDS: meropenem 1,000 MG in sodium chloride 0.9% (plus) 50 ML 100 MG IV ×2 (16:09→23:27)
[2022-10-21] MEDS: cyclobenzaprine 10 mg Tablet 5 MG PO ×2 (16:39→20:55)
[2022-10-21] MEDS: enoxaparin 40 mg/0.4 mL Syringe SUBCUT (16:40)
[2022-10-21] MEDS: fentaNYL 50 mcg Patch 1 PATCH TRANSDERMA (16:41)
[2022-10-21 17:29] LABS: Glucose Point of Care 141 mg/dL (70-110)
[2022-10-21] MEDS: diclofenac 1% Topical Gel 100 gm 1 APPLIC TOPICAL (18:34)
[2022-10-21] MEDS: vancomycin 1,000 MG in sodium chloride 0.9% 250 ML 250 MG IV (18:34)
[2022-10-21] MEDS: sodium chlor 0.9% + KCl 20 mEq 20 MEQ/1,000 ML BAG 75 MEQ IV (18:34)
[2022-10-21] MEDS: docusate sodium 100 mg Capsule PO (18:35)
[2022-10-21] MEDS: calcium carb-vit d 600mg/400unit 1 Tablet 1 EACH PO (18:35)
[2022-10-21] MEDS: ascorbic acid 500 mg Tablet 1000 MG PO (18:35)
[2022-10-21] MEDS: simethicone 80 mg Chew PO (19:07)
[2022-10-21] MEDS: oseltamivir phosphate 75 mg Capsule PO (20:54)
[2022-10-21] MEDS: sennosides-docusate Tablet 2 TAB PO (20:55)
[2022-10-21] MEDS: atorvastatin 40 mg Tablet PO (20:55)
[2022-10-21 21:21] LABS: Creatine Phosphokinase 24 U/L (26-192)
[2022-10-21 21:38] LABS: Glucose Point of Care 141 mg/dL (70-110)
[2022-10-21] MEDS: insulin lispro 100 unit/1 mL SUBCUT (21:54)
[2022-10-22] VITALS (10 sets, daily range): BP systolic 93–144; BP diastolic 62–91; PULSE 78–106; RESP 17–20; TEMP 36.6–37.5; O2SAT 90–98
[2022-10-22] MEDS: morphine 10 mg/0.5 mL oral liq UD 5 MG PO (04:19)
[2022-10-22 04:25] LABS: Basophils % 0.5 %; Eosinophils # 0.1 10^3/uL (0.0-0.8); Eosinophils % 1.2 %; Hematocrit 32.7 % (37.0-47.0); Hemoglobin 9.9 g/dL (11.5-15.3); Lymphocytes # 0.7 10^3/uL (0.8-4.8); Lymphocytes % 15.8 %; Mean Corpuscular HGB Conc 30.3 g/dL (30.0-36.0); Mean Corpuscular Volume 89.1 fl (81-99); Mean Platelet Volume 9.5 fL (7.4-10.4); Monocytes # 0.6 10^3/uL (0.2-0.9); Monocytes % 13.2 %; Neutrophils # 2.92 10^3/uL (1.8-7.7); Neutrophils % 69.1 %; Nucleated Red Blood Cells % 0 %; Platelet Count 151 10^3/cmm (130-400); Red Blood Count 3.67 10^6/uL (4.1-5.3); Red Cell Distribution Width 15.8 % (12.1-15.1); White Blood Count 4.2 10^3/uL (4.0-10.0)
[2022-10-22 04:42] LABS: D Dimer 1.88 ug/mIFEU (0-0.59)
[2022-10-22 04:45] LABS: Lactic Sepsis W/Reflex 0.6 mmol/L (0.5-2.2)
[2022-10-22 04:50] LABS: Anion Gap 11.3 (5-19); Blood Urea Nitrogen 19 mg/dL (6-20); C Reactive Protein 118.8 mg/L (0.0-4.9); Carbon Dioxide 26 mmol/L (22-29); Chloride 105 mmol/L (98-107); Glomerular Filtration Rate 76.9 mL/min (90-130); Glucose 105 mg/dL (65-115); Magnesium 2.5 mg/dL (1.7-2.3); Osmolality Calculated 289 mOsm/kg (285-295); Phosphorus 3.8 mg/dL (2.5-4.5); Potassium 4.3 mmol/L (3.5-5.1); Sodium 138 mmol/L (136-145)
[2022-10-22] MEDS: vancomycin 1,000 MG in sodium chloride 0.9% 250 ML 250 MG IV (05:12)
[2022-10-22 05:23] LABS: Erythrocyte Sedimentation Rate 36 mm/hr (0-15)
[2022-10-22 05:35] LABS: ABG PCO2 49.5 mmHg (35-45); ABG PH Result 7.35 (7.35-7.45); Base Excess ABG 1.3 mmol/L (-2.0-2.0); Blood Gas Allen Test Pos; Blood Gas Sample Site Radial, right; Blood Gas Sample Type Arterial; HCO3 ABG 27.4 mmol/L (22-26); PO2 ABG 62.3 mmHg (80.0-100.0)
[2022-10-22 05:36] LABS: Oxygen Device NC
[2022-10-22 06:33] LABS: Glucose Point of Care 118 mg/dL (70-110)
[2022-10-22] MEDS: sitagliptin 100 mg Tablet 50 MG PO (08:04)
[2022-10-22] MEDS: oseltamivir phosphate 75 mg Capsule PO (08:04)
[2022-10-22] MEDS: ascorbic acid 500 mg Tablet 1000 MG PO ×2 (08:04→17:10)
[2022-10-22] MEDS: oxybutynin 5 mg Tablet PO ×3 (08:04→20:12)
[2022-10-22] MEDS: docusate sodium 100 mg Capsule PO ×2 (08:04→17:10)
[2022-10-22] MEDS: pantoprazole DR 40 mg Tablet PO (08:04)
[2022-10-22] MEDS: gabapentin 300 mg Capsule 1200 MG PO ×3 (08:04→20:12)
[2022-10-22] MEDS: calcium carb-vit d 600mg/400unit 1 Tablet 1 EACH PO ×2 (08:04→17:10)
[2022-10-22] MEDS: simethicone 80 mg Chew PO ×3 (08:05→17:10)
[2022-10-22] MEDS: potassium chloride ER 20 mEq Tablet PO (08:05)
[2022-10-22] MEDS: sertraline 50 mg Tablet PO (08:05)
[2022-10-22] MEDS: cyclobenzaprine 10 mg Tablet 5 MG PO ×3 (08:05→20:12)
[2022-10-22] MEDS: meropenem 1,000 MG in sodium chloride 0.9% (plus) 50 ML 100 MG IV ×2 (08:05→15:57)
[2022-10-22] MEDS: lidocaine 5% Patch 1 PATCH TOPICAL (08:06)
[2022-10-22] MEDS: sennosides-docusate Tablet 2 TAB PO ×2 (08:06→20:15)
[2022-10-22] MEDS: magnesium hydroxide 30 mL UDC 5 ML PO (08:06)
[2022-10-22] MEDS: ipratropium-albuterol 3 mL Neb INHALATION ×2 (09:45→20:57)
[2022-10-22] MEDS: diclofenac 1% Topical Gel 100 gm 1 APPLIC TOPICAL ×2 (10:15→17:10)
[2022-10-22 10:43] LABS: Glucose Point of Care 191 mg/dL (70-110)
[2022-10-22] MEDS: insulin lispro 100 unit/1 mL SUBCUT ×2 (12:41→17:10)
[2022-10-22] MEDS: sodium chlor 0.9% + KCl 20 mEq 20 MEQ/1,000 ML BAG 75 MEQ IV (12:43)
[2022-10-22] MEDS: ALPRAZolam 0.5 mg Tablet 0.25 MG PO ×2 (12:46→20:12)
[2022-10-22 12:48] LABS: Acinetobacter baumannii Not Detected (NOT DETECT); Bacteroides fragilis Not Detected (NOT DETECT); CTX-M Not Detected (NOT DETECT); Citrobacter Not Detected (NOT DETECT); Cronobacter sakazakii Not Detected (NOT DETECT); Enterobacter cloacae complex Not Detected (NOT DETECT); Enterobacter non cloacae Not Detected (NOT DETECT); Fusobacterium necrophorum Not Detected (NOT DETECT); Fusobacterium nucleatum Not Detected (NOT DETECT); Haemophilus influenzae Not Detected (NOT DETECT); IMP Resistance Gene Not Detected (NOT DETECT); KPC Resistance Gene Not Detected (NOT DETECT); Klebsiella pneumoniae group Not Detected (NOT DETECT); Morganella morganii Not Detected (NOT DETECT); NDM Resistance Gene Not Detected (NOT DETECT); Neisseria meningitidis Not Detected (NOT DETECT); OXA Resistance Gene Not Detected (NOT DETECT); Pan Candida Not Detected (NOT DETECT); Pan Gram-Positive Not Detected (NOT DETECT); Proteus mirabilis Detected (NOT DETECT); Pseudomonas aeruginosa Not Detected (NOT DETECT); Salmonella Not Detected (NOT DETECT); Serratia Not Detected (NOT DETECT); Serratia marcescens Not Detected (NOT DETECT); Stenotrophomonas maltophilia Not Detected (NOT DETECT); VIM Resistance Gene Not Detected (NOT DETECT)
--- NOTE | 2022-10-22 13:45 | CT_ITS ---
WS: [id number] CT CHEST, ABDOMEN, AND PELVIS TECHNIQUE: Noncontrast CT of the chest, abdomen, and pelvis with coronal and sagittal reformatted haily ges. CLINICAL INFORMATION: gram negative bacteremia COMPARISON: CT abdomen pelvis June 03, 2022 DLP: 1111.[address] scans at [facility] use at least one of these dose optimization techniques: automated e xposure control; mA and/or kV adjustment per patient size (includes targeted exams where dose is matc hed to clinical indication); or iterative reconstruction. CT CHEST: Shallow inspiration. Tiny bilateral pleural effusions compressive atelectasis in the lung bases. Subs egmental atelectasis in both lower lobes RIGHT greater than LEFT. Slight subsegmental atelectasis in the RIGHT middle lobe and lingula. Lung apices are well aerated. Normal caliber thoracic aorta. No mediastinal or hilar lymphadenopathy. No axillary lymphadenopathy. Mild thoracic curve. Mild thoracic kyphosis. Elevation RIGHT hemidiaphragm. CT ABDOMEN AND PELVIS: Noncontrast liver is normal. Normal GE junction. Postoperative changes involving the greater curvatur e of the stomach. Air-fluid level in the distal stomach. Gallbladder is contracted. Moderate pancolonic fecal retention with moderate constipation. Normal caesar endix in the RIGHT lower quadrant. Slight thickening LEFT adrenal gland. RIGHT adrenal Gland is sisi l. Noncontrast pancreas is normal. No abdominal or pelvic lymphadenopathy. No inguinal lymphadenopath y. Diffuse body wall anasarca. Moderate LEFT hydronephrosis with LEFT ureterectasis is new from June 03, 2022. Dilated ureter exte nds down to the UVJ. No obstructing calculi. Suprapubic catheter with tip extending to the LEFT UVJ. This may contribute to obstruction. Slightly prominent RIGHT extrarenal pelvis. RIGHT ureter is decompressed. Diffuse bladder wall thicke jeannie with air-fluid levels. Recommend correlation for UTI. Nonobstructing subcentimeter LEFT calyceal tip calculi. Moderate degenerative arthritis both hips RIGHT greater than LEFT. CT/[place] [id number] IMPRESSION: 1. Moderate LEFT hydronephrosis with pelvocaliectasis and ureterectasis. This is new from June 03, 2022. LEFT ureter is dilated to the UVJ. Tip of the supr apubic catheter extends into or adjacent to the LEFT UVJ and may contribute to obstruction. 2. Suprapubic catheter with tip at the LEFT UVJ. Diffuse bladder wall thickeni ng with air-fluid level.Correlation for urinary tract infection. 3. Diffuse moderate pancolonic constipation. 4. Small bilateral pleural effusions with compressive atelectasis in the lung bases. Slight atelectasis in the lingula and RIGHT middle lobe. 5. Prior postoperative changes along the greater curvature of the stomach. 6. Diffuse moderate pancolonic constipation. Notified Damir Ernst MD at 10/22/2022 4:48 PM.
[2022-10-22 14:37] LABS: Thyroid Stimulating Hormone 0.78 uIU/mL (0.27-4.20)
[2022-10-22 14:47] LABS: Procalcitonin 2.24 ng/mL (0-0.5); Vitamin B12 241 pg/mL (232-1245)
[2022-10-22 14:58] LABS: Iron 36 ug/dL (37-145); Percent Saturation 15.9 % (20-50); Total Iron Binding Capacity 226 mcg/dl; Unsaturated Iron Binding 190 ug/dL (112-347)
[2022-10-22 16:45] LABS: Glucose Point of Care 143 mg/dL (70-110)
[2022-10-22] MEDS: enoxaparin 40 mg/0.4 mL Syringe SUBCUT (17:09)
[2022-10-22 17:42] LABS: Folate Level > 20.0 ng/mL (4.8-37.3)
--- NOTE | 2022-10-22 17:56 | P.PN_ITS ---
Subjective Subjective: H&P and labs appreciated. Seen laying comfortably in bed. Has remained hemodynamically stable and afebrile. On nasal cannula oxygen supplementation. Complaining of pain on the left side. Patient states she was advised fosfomycin by ID which she only got for 1 month. She also states Dumont catheter was last changed at the [facility] a month ago. She has been complaining of pain on the left side and with difficulty in flushing since then. States she usually has 20-gauge latex catheter which was changed to 18-gauge silicone catheter due to nonavailability at [facility]. States have been having issues since then. States she was recently in the ER a week ago for similar complaints. Not sure of the catheter was changed at home. Vitals/I&O/Wt Last Vital Signs Temp 98.8 F 10/22/22 16:00 Pulse 97 10/22/22 16:00 Resp 17 10/22/22 16:00 BP 115/77 10/22/22 16:00 Pulse Ox 93 10/22/22 16:00 O2 Del Method 10/22/22 16:00 O2 Flow Rate 3 10/22/22 09:45 10/22/22 10/22/22 10/22/22 06:59 14:59 22:59 Intake Total 780 / 3520 1530 / 1530 50 / 1580 Balance 780 / 2770 1530 / 1530 50 / 1580 Weight last 48 hrs Weight 76.793 kg Weight 67.132 kg Physical Exam Narrative: Constitutional: Asleep, easily arousable, acutely ill-appearing but able to provide history HEENT: Normocephalic, facies is flushed, very dry lips and oropharynx, conjunctive are injected, nasopharynx is clear Neck: Large but supple Respiratory: Shallow respirations, tachypnea, no wheezes or retractions, speaking predominantly in a few word sentences with frequent pauses, oxygen tubing in place, no wheezes noted anteriorly, decreased both bases, no rhonchi Cardiovascular: Regular rate and rhythm, distant heart sounds Abdomen: Soft, nontender to palpation, positive but slow bowel sounds : Suprapubic catheter in place with dark yellow urine with some sediment noted, no blood seen Extremities: Lower extremities with bilateral pitting edema, extension contrac tures of both ankles with both heels and heel protectors, no palpable cords noted, no complaints of increased pain or pressure sensation with calf palpation, some flexion contractures of fingers of both hands right more so than left Skin: Other than red face and flushed appearance, skin is pale, skin of both feet is dry and scaling on the soles and around the toes, palms are clean and soft Neuro: Speech soft but clear, face symmetric, some sensation to touch noted to hands more so than lower extremities, no involuntary or purposeful movements b elow the head, is able to hit call light with neck Psych: Anxious and scared appearing in addition to acute ill appearance but cooperative, oriented to person place and situation Data 10/22/22 04:12 10/22/22 04:12 Micro: Microbiology 10/21/22 09:20 Blood Culture - Preliminary Blood Proteus mirabilis 10/21/22 08:55 Blood Culture - Preliminary Blood Proteus mirabilis A&P Assessment and plan (1) Gram-negative bacteremia: In setting of recurrent UTI. Sepsis not present because of no leukocytosis tachycardia or fever. No target organ dysfunction. History of ESBL E. coli UTI in the past. Supposed fosfomycin suppression as per ID but not getting for last couple of months. Consult ID for further recommendations. CT chest abdomen pelvis for further evaluation. Recent history of catheter blockage and exchange the last 1 month. Continue with meropenem. Stop vancomycin. Repeat blood cultures in a.m. (2) Neurogenic bladder: (3) Suprapubic catheter: (4) Pneumonia: COVID-19, flu negative. Mild hypoxemia present. Can supplementation keeping saturation over 88%. Could be secondary to atelectasis. CT chest for further evaluation. Hold off on Tamiflu for now. Incentive spirometry. (5) Recurrent UTI: With history of recent catheter exchange before starting of symptoms will cons ult urology for further recommendations. (6) Stage III pressure ulcer of right buttock: Present on admission, followed by wound care outpatient, debrided last week. Visual appearance appears unchanged from documented description of wound at that time. Continue wound care as outpatient. (7) Diabetes mellitus, type II: On chronic insulin therapy with peripheral neuropathy and chronic kidney disease stage IIIa; also on Sitagliptin and metformin chronically. Stop OHA. Continue insulin sliding scale before meals and at bedtime. 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 coli infection: Plan Full code. Carb consistent diet. Protonix for PUD prophylaxis Lovenox for DVT prophylaxis. Continue other chronic medications. Discharge planning: Plan to discharge back to SNF once patient is hemodynamically stable. Attestations Medical Necessity Statement*: Requires further hospitalization for management of gram-negative bacteremia in setting of recurrent UTI, complicated cystitis, present of chronic indwelling suprapubic catheter, history of E. coli ESBL UTI, stage III decubitus ulcer in a patient who was quadriplegic Time Spent in Patient Care: Greater than 35 minutes Coding Level of Care Code Acute Acid Concentrator for [facility] Diagnoses Gram-negative bacteremia R78.81 Neurogenic bladder N31.9 Suprapubic catheter Z93.59 Pneumonia J18.9 Recurrent UTI N39.0 Stage III pressure ulcer of right buttock L89.313 Diabetes mellitus, type II E11.9 Hyperlipidemia E78.5 long term care social worker prescription opiate use Z79.891 Therapeutic opioid induced constipation K59.03; T40.2X5A Anxiety and depression F41.9; F32.A Quadriplegia G82.50 History of ESBL E. coli infection Z86.19
--- NOTE | 2022-10-22 18:03 | P.CONIM_ITS ---
Providers/Reason For Consult Consulting Physician/Specialty*: Debo Yen MD/ Infectious disease Reason for Consult*: Gram negative bacateremia Requesting Physician: Damir Ernst MD Attending Physician: Damir Ernst MD Primary Care Provider: Shakira Cruz MD History of Present Illness History of Present Illness Rosanne Morales is a 47 year old female quadriplegic with neurogenic bladder and multiple complications related to that including multiple episodes of sepsis, bladder rupture, chronic incontinence and wound issues. She was assessed for possible urinary diversion but it was elected initially to try a suprapubic tube management for neurogenic bladder before considering diversion due to her multiple abdominal surgeries and risks. She was evaluated in the infectious disease clinic due to her recurrent gram- negative infections and multiple episodes of UTI with E. coli and ESBL E. coli showing varying resistance to cephalosporins, Bactrim, nitrofurantoin and doxycycline. She had failed methenamine suppression and which she had been for a long time but having breakthrough infections. She was started on chronic suppressive therapy with fosfomycin every 3 days, however patient reports that she only got this treatment for a month and thereafter it was discontinued at the care home. We did call the care home and he confirmed that patient is not getting the fosfomycin. I am uncertain as to the reason why this was not given. A 6-month supply had been called in in June. We will try to find out more about this tomorrow. She reports that she has had issues with urinary drainage since her most recent suprapubic catheter change at the care home. She states that she was init ially on a 20 [place] latex catheter however it was switched out to an 18 Polish silicone catheter and she states that she has had drainage issues since then. She additionally has skin irritation around the catheter insertion site. Currently she is admitted to the hospital yesterday after presenting here with fever 104 with chills altered mental status and not feeling well. Today she is alert awake at the time of my assessment. Her blood culture from admission is presumptively positive for Proteus mirabilis 3 out of 4 based on PCR testing. Further microbiological data is pending. CT of her abdomen and pelvis has showed moderate left hydronephrosis with pelvocaliectasis and uricase is new since May. Left ureter is additionally dilated to the UVJ. Tip of the suprapubic catheter is seen extending into the left UVJ junction and may be causing to the obstruction. Review of Systems General: Reports: 10 or more systems reviewed and unremarkable except in HPI and below Const: Denies: fever(s), chills or body aches Eyes: Denies: change in vision, blurry vision or photophobia ENMT: Reports: hoarseness; Denies: throat pain, enlarged tonsils, odynophagia or nasal congestion Card: Denies: chest pain, palpitations, irregular heart rhythm, edema, swelling of feet/ankles, lightheadedness, pre-syncope, dyspnea on exertion or orthopnea Resp: Denies: dyspnea, productive cough, non-productive cough, wheezing, stridor, pain on inspiration, change in phlegm color, hemoptysis or chest congestion GI: Denies: abdominal pain, nausea, vomiting, hematemesis, coffee ground emesis, dysphagia, heartburn, diarrhea, constipation, GI cramping, change in stool character, hematochezia or melena : Denies: flank pain, difficulty voiding, dysuria, urinary frequency, urinary urgency, urinary hesitancy or hematuria Musc: Denies: neck pain, back pain, extremity pain, joint swelling, joint warmth or deformity Neuro: Denies: headache(s), numbness in extremities, weakness in extremities, sensory changes, difficulty walking, frequent falls, dizziness, vertigo, behavioral changes, Slurred speech present or seizure-like activity Psych: Denies: anxiety, depression, suicidal ideation or homicidal ideation Endo: Denies: polyuria, polydipsia, tired all the time, cold intolerance or hot flashes Raul/Lymph: Denies: easy bruising or easy bleeding Medications/Allergies Home Medications Medication Instructions Recorded Confirmed Last Taken Type ascorbic acid (vitamin C) 1,000 mg 1,000 mg PO BID@,04/22/20 10/21/22 10/20/22 History tablet (Vitamin C) pantoprazole 40 mg tablet,delayed 40 mg PO DAILY 04/22/20 10/21/22 10/21/22 History release sennosides 8.6 mg-docusate sodium 2 tab PO BID@08,20 05/28/20 10/21/22 10/20/22 History 50 mg tablet (Senna Plus) alprazolam 0.25 mg tablet (Xanax) 0.25 mg PO TID PRN Anxiety #10 tabs 11/22/20 10/21/22 10/21/22 Rx fentanyl 50 mcg/hr transdermal 1 patch transdermal Q72H #5 ea 11/22/20 10/21/22 10/18/22 Rx patch morphine concentrate 100 mg/5 mL 5 mg (0.25 mL) PO Q4H PRN Pain #30 11/22/20 10/21/22 10/21/22 Rx (20 mg/mL) oral solution mL acetaminophen 500 mg tablet 500 mg PO Q6H PRN Pain 08/17/21 10/21/22 10/02/22 History naloxone 0.4 mg/mL injection 0.4 mg IM Q2M PRN overdose 08/17/21 10/21/22 Unkno wn History solution pravastatin 40 mg tablet 40 mg PO BEDTIME 08/17/21 10/21/22 10/20/22 History simethicone 80 mg chewable tablet 80 mg PO TIDWM 08/17/21 10/21/22 10/20/22 History methylnaltrexone 12 mg/0.6 mL 0.6 ml SUBCUT Q3D PRN Constipation 01/24/22 10/21/22 03/27/22 History subcutaneous syringe (Relistor) ondansetron HCl 4 mg tablet 4 mg PO Q6H PRN Nausea 01/24/22 10/21/22 10/21/22 History docusate sodium 100 mg capsule 100 mg PO BID 02/11/22 10/21/22 10/20/22 History (Colace) gabapentin 600 mg tablet 1,200 mg PO TID 02/11/22 10/21/22 10/20/22 History calcium carbonate 400 mg calcium 400 mg PO DAILY PRN Heartburn 03/06/22 10/21/22 06/03/22 History (1,000 mg) chewable tablet (Tums Ultra) insulin lispro 100 unit/mL See Rx Instructions .Route .COMPLEX 03/06/22 10/21/22 10/20/22 History subcutaneous pen (Humalog KwikPen (U-100) Insulin) pregabalin 50 mg capsule (Lyrica) 50 mg PO BID 03/06/22 10/21/22 10/20/22 History magnesium hydroxide 400 mg/5 mL 5 ml PO DAILY #355 mL 03/12/22 10/21/22 10/21/22 Rx oral suspension (Milk of Magnesia) potassium chloride 20 mEq 20 meq PO DAILY 03/28/22 10/21/22 10/20/22 History tablet,extended release lidocaine 5 % topical patch 1 patch topical Q12H 05/12/22 10/21/22 10/20/22 History metformin 1,000 mg tablet 1,000 mg PO BID 05/12/22 10/21/22 10/20/22 History sertraline 50 mg tablet 50 mg PO DAILY 05/12/22 10/21/22 10/20/22 History linaclotide 145 mcg capsule 145 mcg PO DAILY 07/31/22 10/21/22 10/21/22 History (Linzess) cyclobenzaprine 5 mg tablet 5 mg PO TID 10/21/22 10/21/22 10/20/22 History diclofenac sodium 1 % topical gel 2 g topical BID 10/21/22 10/21/22 10/20/22 History lidocaine 4 % topical cream 1 applic topical BID PRN Pain 10/21/22 10/21/22 Unknown History methenamine hippurate 1 gram tablet 1 g PO BID 10/21/22 10/21/22 10/20/22 History metoclopramide HCl 10 mg tablet 10 mg PO Q6H PRN nausea and 10/21/22 10/21/22 10/20/22 History vomiting oxybutynin chloride 5 mg tablet 5 mg PO TID 10/21/22 10/21/22 10/20/22 History sitagliptin 25 mg tablet (Januvia) 25 mg PO DAILY 10/21/22 10/21/22 10/20/22 History sitagliptin 50 mg tablet (Januvia) 50 mg PO DAILY 10/21/22 10/21/22 10/20/22 History Allergies Allergy/AdvReac Type Severity Reaction Status Date / Time No Known Allergies Allergy Verified 10/16/22 11:05 Current Medications Generic Name Dose Route Start Last Admin Trade Name Freq PRN Reason Stop Dose Admin Albuterol/Ipratropium 3 ml 10/21/22 14:47 10/22/22 09:45 Ipratropium-Albuterol 3 Ml Neb INHALATION 3 ml Q6H PRN Administration SHORTNESS OF BREATH Alprazolam 0.25 mg 10/21/22 14:47 10/22/22 12:46 Alprazolam 0.5 Mg Tablet PO 0.25 mg TID PRN Administration ANXIETY Ascorbic Acid 1,000 mg 10/21/22 18:00 10/22/22 17:10 Ascorbic Acid 500 Mg Tablet PO 1,000 mg BID ELISEO Administration Atorvastatin Calcium 40 mg 10/21/22 21:00 10/21/22 20:55 Atorvastatin 40 Mg Tablet PO 40 mg BEDTIME ELISEO Administration Calcium Carbonate 1 each 10/21/22 18:00 10/22/22 17:10 Calcium Carb-Vit D 600mg/400unit 1 Tablet PO 1 each BID ELISEO Administration Cyclobenzaprine HCl 5 mg 10/21/22 15:00 10/22/22 15:57 Cyclobenzaprine 10 Mg Tablet PO 5 mg TID ELISEO Administration Diclofenac Sodium 1 applic 10/21/22 18:00 10/22/22 17:10 Diclofenac 1% Topical Gel 100 Gm TOPICAL 1 applic BID ELISEO Administration Docusate Sodium 100 mg 10/21/22 18:00 10/22/22 17:10 Docusate Sodium 100 Mg Capsule PO 100 mg BID ELISEO Administration Enoxaparin Sodium 40 mg 10/21/22 17:00 10/22/22 17:09 Enoxaparin 40 Mg/0.4 Ml Syringe SUBCUT 40 mg Q24H ELISEO Administration Fentanyl 1 patch 10/21/22 17:00 10/21/22 16:41 Fentanyl 50 Mcg Patch TRANSDERMA 1 patch Q72H ELISEO Administration Gabapentin 1,200 mg 10/21/22 15:00 10/22/22 15:57 Gabapentin 300 Mg Capsule PO 1,200 mg TID ELISEO Administration Meropenem 1,000 mg/ Sodium 50 mls @ 100 mls/hr 10/21/22 16:00 10/22/22 16:27 Chloride IV Infused Q8H ELISEO Infusion Potassium Chloride/Sodium Chloride 20 meq in 1,000 mls @ 75 mls/hr 10/21/22 16:45 10/22/22 12:43 Sodium Chlor 0.9% + Kcl 20 Meq IV 75 mls/hr .[id number] ELISEO Administration Insulin Human Lispro 0 unit 10/21/22 21:00 10/21/22 21:54 Insulin Lispro 100 Unit/1 Ml SUBCUT 2 unit BEDTIME ELISEO Administration Protocol Insulin Human Lispro 0 unit 10/21/22 18:00 10/22/22 17:10 Insulin Lispro 100 Unit/1 Ml SUBCUT 4 unit TIDWM ELISEO Administration Protocol Lidocaine 1 patch 10/21/22 16:00 10/22/22 08:06 Lidocaine 5% Patch TOPICAL 1 patch [id number] ELISEO Administration Magnesium Hydroxide 5 ml 10/22/22 09:00 10/22/22 08:06 Magnesium Hydroxide 30 Ml Udc PO 5 ml DAILY ELISEO Administration Morphine Sulfate 5 mg 10/21/22 14:47 10/22/22 04:19 Morphine 10 Mg/0.5 Ml Oral Liq Ud PO 5 mg Q4H PRN Administration SEVERE PAIN Non-Formulary Medication 145 mcg 10/22/22 09:00 10/22/22 08:06 Linaclotide [Linzess] PO Not Given DAILY [facility] Non-Formulary Medication 1 gm 10/21/22 18:00 10/22/22 17:11 Methenamine Hippurate PO Not Given BID ELISEO Oxybutynin Chloride 5 mg 10/21/22 15:00 10/22/22 15:57 Oxybutynin 5 Mg Tablet PO 5 mg TID ELISEO Administration Pantoprazole Sodium 40 mg 10/22/22 09:00 10/22/22 08:[address] 40 Mg Tablet PO 40 mg DAILY ELISEO Administration Potassium Chloride 20 meq 10/22/22 09:00 10/22/22 08:05 Potassium Chloride Er 20 Meq Tablet PO 20 meq DAILY ELISEO Administration Senna/Docusate Sodium 2 tab 10/21/22 20:00 10/22/22 08:06 Sennosides-Docusate Tablet PO 2 tab BID@08,20 ELISEO Administration Sertraline HCl 50 mg 10/22/22 09:00 10/22/22 08:05 Sertraline 50 Mg Tablet PO 50 mg DAILY ELISEO Administration Simethicone 80 mg 10/21/22 18:00 10/22/22 17:10 Simethicone 80 Mg Chew PO 80 mg TIDWM ELISEO Administration PFSH Acute PFSH: Medical History Anxiety Chronic kidney disease COVID-19 (~2020) Depression Diabetes mellitus, type II GERD (gastroesophageal reflux disease) History of ESBL E. 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 saw operator prescription opiate use Neurogenic bladder Neuropathic pain PVD (peripheral vascular disease) Quadriplegia secondary to trauma Recurrent sepsis due to urinary tract infection Sacral decubitus ulcer Suprapubic catheter Therapeutic opioid induced constipation Urinary retention Surgical History H/O bladder repair surgery H/O cystoscopy H/O partial cystectomy H/O Spinal surgery History of hysterectomy History of partial gastrectomy (12/2019) due to perforated viscous from gastric ulcer Family History Other CAD (coronary artery disease) Diabetes Hypertension Social History Smoking and tobacco status: never smoked Alcohol intake: never Substance/Drug Use: never Housing: Assisted Marital status: Current occupational status: disabled Vitals/I&O/Wt Last Vital Signs Temp 98.8 F 10/22/22 16:00 Pulse 97 10/22/22 16:00 Resp 17 10/22/22 16:00 BP 115/77 10/22/22 16:00 Pulse Ox 93 10/22/22 16:00 O2 Del Method 10/22/22 16:00 O2 Flow Rate 3 10/22/22 09:45 10/22/22 10/22/22 10/22/22 06:59 14:59 22:59 Intake Total 780 / 3520 1530 / 1530 50 / 1580 Balance 780 / 2770 1530 / 1530 50 / 1580 Weight last 48 hrs Weight 76.793 kg Weight 67.132 kg Physical Exam Narrative: General: No acute distress, AO x3 HEENT: PERRLA, pupils bilaterally equal and reactive, pallors not present Chest: Normal vesicular breath sounds, no added sounds, equal good air entry bilaterally CVS: S1-S2 regular, no murmurs, no tachycardia, no gallops, no rubs Abdomen: Soft, nontender, no organomegaly, bowel sounds present, slight irritation around the site of her suprapubic catheter insertion Neuro: Patient is paraplegic. Data 10/22/22 04:12 10/22/22 04:12 Micro: Microbiology 10/21/22 09:20 Blood Culture - Preliminary Blood Proteus mirabilis 10/21/22 08:55 Blood Culture - Preliminary Blood Proteus mirabilis A&P Assessment and plan (1) Gram-negative bacteremia: (2) Neurogenic bladder: Plan Patient currently admitted for gram-negative sepsis with blood cultures positive for Proteus mirabilis. Likely source is complicated urinary tract infection. CT of the abdomen pelvis shows obstruction of the left UVJ junction by the suprapubic catheter. Recommend urology consultation. Currently appropriately covered with meropenem, recommend to continue at 2 g IV every 8 hour dosing. Patient was recommended to be on chronic suppression with fosfomycin every 3 days in June 2022 and had been provided with 6 refills, however patient reports that she was taken off of treatment after the first month. We will try to find find out more about this tomorrow morning by talking to SNF. will follow Consult Attestations Medical Necessity Statement: per admitting Coding Level of Care Code Acute Resident Athletic Trainer for [facility] Diagnoses Gram-negative bacteremia R78.81 Neurogenic bladder N31.9
--- NOTE | 2022-10-22 18:38 | PM.CONSULT ---
Providers/Reason For Consult Consulting Physician/Specialty*: Urology/Culp Reason for Consult*: Malpositioned suprapubic tube complicated by left ureteral obstruction and sepsis Requesting Physician: Dr. Ernst Attending Physician: Damir Ernst MD Primary Care Provider: Shakira Cruz MD History of Present Illness History of Present Illness Rosanne Morales is a 47 year old female well-known to me for history of spinal cord injury and related urologic problems including neurogenic bladder, recurrent UTIs, history of spontaneous bladder rupture and stones. Had a permanent suprapubic tube placed in [facility] and beginning in May of this year was transition to routine Dumont suprapubic tube initially 14 and later to 20 Libyan. Last office visit was on 07/31/2022. Was admitted through the emergency department last night with evidence of sepsis. History of recurrent UTIs with ESBL E. coli. CT scan was performed that showed new onset of left hydronephrosis down to the distal ureter and it appeared that the tip of the suprapubic tube was actually advanced up the left ureter probably about a centimeter to 1.5 cm likely being the source of the obstruction. Very unusual finding. I was consulted for further evaluation. I did review the CT scan and agree with the findings. Patient reports that since the tube was placed she knew something was not right. She has been having increasing pain on the left side not surprisingly. On exam her abdomen is soft. She is tender on the left upper quadrant and left CVA area. I recommended suprapubic tube change. PROCEDURE: Bedside suprapubic tube changed. Site was prepped. Balloon was deflated on the suprapubic tube and it was withdrawn with some difficulty back into the bladder. Approximately 30 to 40 cc of sterile water was instilled into the bladder and the catheter removed and replaced with a 20 Libyan coud? catheter tip. The tip was directed to the patient's RIGHT SIDE and the balloon was inflated with 10 cc with good loose fitting in the bladder. No concerns related to the position. Catheter was functioning well and secured back to dependent drainage. The removal of the silicone suprapubic tube was slightly traumatic to the skin due to the residual irregularity of the balloon after deflation. This should not present a problem. Recommendations, continue suprapubic catheter. Would recommend follow-up in my office for next change. Review of Systems Const: Reports: fatigue and malaise Eyes: Denies: change in vision ENMT: Denies: hoarseness Card: Denies: chest pain or palpitations Resp: Denies: dyspnea or productive cough GI: Reports: abdominal pain; Denies: vomiting : Reports: flank pain and pelvic pain Musc: Denies: joint redness Skin/Breast: Reports: other (Decubitus) Neuro: Denies: behavioral changes or Slurred speech present Psych: Denies: anxiety Endo: Denies: flushing Raul/Lymph: Denies: easy bruising or easy bleeding All/Imm: Denies: acute wheezing Medications/Allergies Home Medications Medication Instructions Recorded Confirmed Last Taken Type ascorbic acid (vitamin C) 1,000 mg 1,000 mg PO BID@04/22/20 10/21/22 10/20/22 History tablet (Vitamin C) pantoprazole 40 mg tablet,delayed 40 mg PO DAILY 04/22/20 10/21/22 10/21/22 History release sennosides 8.6 mg-docusate sodium 2 tab PO BID@05/28/20 10/21/22 10/20/22 History 50 mg tablet (Senna Plus) alprazolam 0.25 mg tablet (Xanax) 0.25 mg PO TID PRN Anxiety #10 tabs 11/22/20 10/21/22 10/21/22 Rx fentanyl 50 mcg/hr transdermal 1 patch transdermal Q72H #5 ea 11/22/20 10/21/22 10/18/22 Rx patch morphine concentrate 100 mg/5 mL 5 mg (0.25 mL) PO Q4H PRN Pain #30 11/22/20 10/21/22 10/21/22 Rx (20 mg/mL) oral solution mL acetaminophen 500 mg tablet 500 mg PO Q6H PRN Pain 08/17/21 10/21/22 10/02/22 History naloxone 0.4 mg/mL injection 0.4 mg IM Q2M PRN overdose 08/17/21 10/21/22 Unknown History solution pravastatin 40 mg tablet 40 mg PO BEDTIME 08/17/21 10/21/22 10/20/22 History simethicone 80 mg chewable tablet 80 mg PO TIDWM 08/17/21 10/21/22 10/20/22 History methylnaltrexone 12 mg/0.6 mL 0.6 ml SUBCUT Q3D PRN Constipation 01/24/22 10/21/22 03/27/22 History subcutaneous syringe (Relistor) ondansetron HCl 4 mg tablet 4 mg PO Q6H PRN Nausea 01/24/22 10/21/22 10/21/22 History docusate sodium 100 mg capsule 100 mg PO BID 02/11/22 10/21/22 10/20/22 History (Colace) gabapentin 600 mg tablet 1,200 mg PO TID 02/11/22 10/21/22 10/20/22 History calcium carbonate 400 mg calcium 400 mg PO DAILY PRN Heartburn 03/06/22 10/21/22 06/03/22 History (1,000 mg) chewable tablet (Tums Ultra) insulin lispro 100 unit/mL See Rx Instructions .Route .COMPLEX 03/06/22 10/21/22 10/20/22 History subcutaneous pen (Humalog KwikPen (U-100) Insulin) pregabalin 50 mg capsule (Lyrica) 50 mg PO BID 03/06/22 10/21/22 10/20/22 History magnesium hydroxide 400 mg/5 mL 5 ml PO DAILY #355 mL 03/12/22 10/21/22 10/21/22 Rx oral suspension (Milk of Magnesia) potassium chloride 20 mEq 20 meq PO DAILY 03/28/22 10/21/22 10/20/22 History tablet,extended release lidocaine 5 % topical patch 1 patch topical Q12H 05/12/22 10/21/22 10/20/22 History metformin 1,000 mg tablet 1,000 mg PO BID 05/12/22 10/21/22 10/20/22 History sertraline 50 mg tablet 50 mg PO DAILY 05/12/22 10/21/22 10/20/22 History linaclotide 145 mcg capsule 145 mcg PO DAILY 07/31/22 10/21/22 10/21/22 History (Linzess) cyclobenzaprine 5 mg tablet 5 mg PO TID 10/21/22 10/21/22 10/20/22 History diclofenac sodium 1 % topical gel 2 g topical BID 10/21/22 10/21/22 10/20/22 History lidocaine 4 % topical cream 1 applic topical BID PRN Pain 10/21/22 10/21/22 Unknown History methenamine hippurate 1 gram tablet 1 g PO BID 10/21/22 10/21/22 10/20/22 History metoclopramide HCl 10 mg tablet 10 mg PO Q6H PRN nausea and 10/21/22 10/21/22 10/20/22 History vomiting oxybutynin chloride 5 mg tablet 5 mg PO TID 10/21/22 10/21/22 10/20/22 History sitagliptin 25 mg tablet (Januvia) 25 mg PO DAILY 10/21/22 10/21/22 10/20/22 History sitagliptin 50 mg tablet (Januvia) 50 mg PO DAILY 10/21/22 10/21/22 10/20/22 History Allergies Allergy/AdvReac Type Severity Reaction Status Date / Time No Known Allergies Allergy Verified 10/16/22 11:05 Current Medications Generic Name Dose Route Start Last Admin Trade Name Freq PRN Reason Stop Dose Admin Alprazolam 0.25 mg 10/21/22 14:47 10/22/22 12:46 Alprazolam 0.5 Mg Tablet PO 0.25 mg TID PRN Administration ANXIETY Ascorbic Acid 1,000 mg 10/21/22 18:00 10/22/22 17:10 Ascorbic Acid 500 Mg Tablet PO 1,000 mg BID ELISEO Administration Atorvastatin Calcium 40 mg 10/21/22 21:00 10/21/22 20:55 Atorvastatin 40 Mg Tablet PO 40 mg BEDTIME ELISEO Administration Calcium Carbonate 1 each 10/21/22 18:00 10/22/22 17:10 Calcium Carb-Vit D 600mg/400unit 1 Tablet PO 1 each BID ELISEO Administration Cyclobenzaprine HCl 5 mg 10/21/22 15:00 10/22/22 15:57 Cyclobenzaprine 10 Mg Tablet PO 5 mg TID ELISEO Administration Diclofenac Sodium 1 applic 10/21/22 18:00 10/22/22 17:10 Diclofenac 1% Topical Gel 100 Gm TOPICAL 1 applic BID ELISEO Administration Docusate Sodium 100 mg 10/21/22 18:00 10/22/22 17:10 Docusate Sodium 100 Mg Capsule PO 100 mg BID ELISEO Administration Enoxaparin Sodium 40 mg 10/21/22 17:00 10/22/22 17:09 Enoxaparin 40 Mg/0.4 Ml Syringe SUBCUT 40 mg Q24H ELISEO Administration Fentanyl 1 patch 10/21/22 17:00 10/21/22 16:41 Fentanyl 50 Mcg Patch TRANSDERMA 1 patch Q72H ELISEO Administration Gabapentin 1,200 mg 10/21/22 15:00 10/22/22 15:57 Gabapentin 300 Mg Capsule PO 1,200 mg TID EILSEO Administration Potassium Chloride/Sodium Chloride 20 meq in 1,000 mls @ 75 mls/hr 10/21/22 16:45 10/22/22 12:43 Sodium Chlor 0.9% + Kcl 20 Meq IV 75 mls/hr .[id number] ELISEO Administration Insulin Human Lispro 0 unit 10/21/22 21:00 10/21/22 21:54 Insulin Lispro 100 Unit/1 Ml SUBCUT 2 unit BEDTIME ELISEO Administration Protocol Insulin Human Lispro 0 unit 10/21/22 18:00 10/22/22 17:10 Insulin Lispro 100 Unit/1 Ml SUBCUT 4 unit TIDWM ELISEO Administration Protocol Lidocaine 1 patch 10/21/22 16:00 10/22/22 08:06 Lidocaine 5% Patch TOPICAL 1 patch [id number] ELISEO Administration Magnesium Hydroxide 5 ml 10/22/22 09:00 10/22/22 08:06 Magnesium Hydroxide 30 Ml Udc PO 5 ml DAILY ELISEO Administration Morphine Sulfate 5 mg 10/21/22 14:47 10/22/22 04:19 Morphine 10 Mg/0.5 Ml Oral Liq Ud PO 5 mg Q4H PRN Administration SEVERE PAIN Non-Formulary Medication 145 mcg 10/22/22 09:00 10/22/22 08:06 Linaclotide [Linzess] PO Not Given DAILY ELISEO Non-Formulary Medication 1 gm 10/21/22 18:00 10/22/22 17:11 Methenamine Hippurate PO Not Given BID ELISEO Oxybutynin Chloride 5 mg 10/21/22 15:00 10/22/22 15:57 Oxybutynin 5 Mg Tablet PO 5 mg TID ELISEO Administration Pantoprazole Sodium 40 mg 10/22/22 09:00 10/22/22 08:[address] 40 Mg Tablet PO 40 mg DAILY ELISEO Administration Potassium Chloride 20 meq 10/22/22 09:00 10/22/22 08:05 Potassium Chloride Er 20 Meq Tablet PO 20 meq DAILY ELISEO Administration Senna/Docusate Sodium 2 tab 12/27/22 20:00 10/22/22 08:06 Sennosides-Docusate Tablet PO 2 tab BID@08,20 ELISEO Administration Sertraline HCl 50 mg 10/22/22 09:00 10/22/22 08:05 Sertraline 50 Mg Tablet PO 50 mg DAILY ELISEO Administration Simethicone 80 mg 10/21/22 18:00 10/22/22 17:10 Simethicone 80 Mg Chew PO 80 mg TIDWM ELISEO Administration PFSH Acute PFSH: Medical History Anxiety Chronic kidney disease COVID-19 (~2019) Depression Diabetes mellitus, type II GERD (gastroesophageal reflux disease) History of ESBL E. 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 Neurogenic bladder Neuropathic pain PVD (peripheral vascular disease) Quadriplegia secondary to trauma Recurrent sepsis due to urinary tract infection Sacral decubitus ulcer Suprapubic catheter Therapeutic opioid induced constipation Urinary retention Surgical History H/O bladder repair surgery H/O cystoscopy H/O partial cystectomy H/O Spinal surgery History of hysterectomy History of partial gastrectomy (12/2019) due to perforated viscous from gastric ulcer Family History Other CAD (coronary artery disease) Diabetes Hypertension Social History Smoking and tobacco status: never smoked Alcohol intake: never Substance/Drug Use: never Housing: Intermediate Marital status: Current occupational status: disabled Vitals/I&O/Wt Last Vital Signs Temp 98.8 F 10/22/22 16:00 Pulse 97 10/22/22 16:00 Resp 17 10/22/22 16:00 BP 115/77 10/22/22 16:00 Pulse Ox 93 10/22/22 16:00 O2 Del Method 10/22/22 16:00 O2 Flow Rate 3 10/22/22 09:45 10/22/22 10/22/22 10/22/22 06:59 14:59 22:59 Intake Total 780 / 3520 1530 / 1530 170 / 1700 Balance 780 / 2770 1530 / 1530 170 / 1700 Weight last 48 hrs Weight 169 lb 4.8 oz Weight 148 lb Physical Exam Const: COMMON NORMALS: no acute distress, alert and well nourished GENERAL APPEARANCE: well kempt and well developed ORIENTATION/CONSCIOUSNESS: not confused Eye: COMMON NORMALS: no scleral icterus Resp: COMMON NORMALS: normal respiratory effort EFFORT & INSPECTION: Yes able to speak in complete sentences, No labored and No Actively coughing Cardio: COMMON NORMALS: regular rhythm RHYTHM: regular rhythm GI: OTHER: Soft no palpable masses : OTHER: Bladder is nondistended. Suprapubic tube site looks healthy. Neuro: SENSORIUM/ORIENTATION: Yes alert OTHER: Quadriplegia Psych: COMMON NORMALS: mental status grossly normal APPEARANCE: Yes grossly normal and Yes well kempt ATTITUDE: Yes calm and Yes engaged Skin: COMMON NORMALS: no jaundice Data 10/22/22 04:12 10/22/22 04:12 Micro: Microbiology 10/21/22 09:20 Blood Culture - Preliminary Blood Proteus mirabilis 10/21/22 08:55 Blood Culture - Preliminary Blood Proteus mirabilis A&P Assessment and plan (1) Urinary retention: Chronic secondary to neurogenic bladder (2) Suprapubic catheter: Has been doing well overall since his suprapubic tube placed but the current suprapubic tube tip surprisingly is up the left ureter. Causing hydronephrosis. Probably contributing to infectious concerns. Catheter changed good function. Position confirmed by field. (3) Quadriplegia: (4) History of ESBL E. coli infection: (5) Hydronephrosis: Secondary to unusual malposition of the tip of the suprapubic catheter lodged in the distal left ureter. Qualifiers: Hydronephrosis type: other Qualified Code(s): N13.39 - Other hydronephrosis Consult Attestations Medical Necessity Statement: See attending Coding Level of Care Code Acute Water Filtration Technician for [facility] Diagnoses Urinary retention R33.9 Suprapubic catheter Z93.59 Quadriplegia G82.50 History of ESBL E. coli infection Z86.19 Hydronephrosis N13.39 Hydronephrosis type: other
[2022-10-22] MEDS: atorvastatin 40 mg Tablet PO (20:12)
[2022-10-22 21:21] LABS: Glucose Point of Care 115 mg/dL (70-110)
[2022-10-23] VITALS (8 sets, daily range): BP systolic 109–127; BP diastolic 71–81; PULSE 72–95; RESP 16–18; TEMP 36.4–37.2; O2SAT 93–98
[2022-10-23] MEDS: sodium chlor 0.9% + KCl 20 mEq 20 MEQ/1,000 ML BAG 75 MEQ IV ×2 (01:39→15:17)
[2022-10-23 04:45] LABS: Basophils % 0.4 %; Eosinophils # 0.1 10^3/uL (0.0-0.8); Hematocrit 32.2 % (37.0-47.0); Hemoglobin 9.8 g/dL (11.5-15.3); Lymphocytes # 1.2 10^3/uL (0.8-4.8); Lymphocytes % 25.7 %; Mean Corpuscular HGB Conc 30.4 g/dL (30.0-36.0); Mean Corpuscular Hemoglobin 26.9 pg (28.0-34.0); Mean Corpuscular Volume 88.5 fl (81-99); Mean Platelet Volume 9.9 fL (7.4-10.4); Monocytes # 0.6 10^3/uL (0.2-0.9); Monocytes % 12.9 %; Neutrophils # 2.64 10^3/uL (1.8-7.7); Neutrophils % 58.6 %; Nucleated Red Blood Cells % 0 %; Platelet Count 180 10^3/cmm (130-400); Red Blood Count 3.64 10^6/uL (4.1-5.3); Red Cell Distribution Width 15.7 % (12.1-15.1); White Blood Count 4.5 10^3/uL (4.0-10.0)
[2022-10-23 05:06] LABS: Estmated Average Glucose 137; Hemoglobin A1C 6.4 % (4.0-6.0)
[2022-10-23 05:11] LABS: Alanine Aminotransferase 14 U/L (0-33); Albumin Level 3.1 g/dL (3.5-5.2); Alkaline Phosphatase 67 U/L (35-105); Anion Gap 11.6 (5-19); Aspartate Amino Transferase 16 U/L (0-32); Blood Urea Nitrogen 16 mg/dL (6-20); Calcium 9.5 mg/dL (8.5-10.5); Carbon Dioxide 28 mmol/L (22-29); Chloride 103 mmol/L (98-107); Chol HDL Ratio 3.92 mg/dL (0.0-4.40); Cholesterol 141 mg/dL (0-200); Globulin 3.2 g/dL (1.3-4.6); Glomerular Filtration Rate 76.9 mL/min (90-130); Glucose 109 mg/dL (65-115); HDL Cholesterol 36 mg/dL (60-100); LDL Cholesterol Calculated 68 mg/dL (50-129); Osmolality Calculated 288 mOsm/kg (285-295); Potassium 4.6 mmol/L (3.5-5.1); Sodium 138 mmol/L (136-145); Total Bilirubin 0.2 mg/dL (0.15-1.2); Total Protein 6.3 g/dL (6.6-8.7); Triglycerides 183 mg/dL (0-150); VLDL Cholestrol Calculation 37 mg/dL (0-30)
[2022-10-23 06:20] LABS: Glucose Point of Care 118 mg/dL (70-110)
[2022-10-23] MEDS: ipratropium-albuterol 3 mL Neb INHALATION ×3 (07:27→20:44)
[2022-10-23] MEDS: sennosides-docusate Tablet 2 TAB PO ×2 (07:40→20:19)
[2022-10-23] MEDS: magnesium hydroxide 30 mL UDC 5 ML PO (07:40)
[2022-10-23] MEDS: ascorbic acid 500 mg Tablet 1000 MG PO ×2 (07:40→16:58)
[2022-10-23] MEDS: simethicone 80 mg Chew PO ×3 (07:40→16:58)
[2022-10-23] MEDS: calcium carb-vit d 600mg/400unit 1 Tablet 1 EACH PO ×2 (07:40→16:58)
[2022-10-23] MEDS: gabapentin 300 mg Capsule 1200 MG PO ×3 (07:40→20:14)
[2022-10-23] MEDS: oxybutynin 5 mg Tablet PO ×3 (07:41→20:16)
[2022-10-23] MEDS: cyclobenzaprine 10 mg Tablet 5 MG PO ×3 (07:41→20:16)
[2022-10-23] MEDS: sertraline 50 mg Tablet PO (07:41)
[2022-10-23] MEDS: ALPRAZolam 0.5 mg Tablet 0.25 MG PO ×2 (07:41→20:16)
[2022-10-23] MEDS: potassium chloride ER 20 mEq Tablet PO (07:42)
[2022-10-23] MEDS: pantoprazole DR 40 mg Tablet PO (07:42)
[2022-10-23] MEDS: docusate sodium 100 mg Capsule PO ×2 (07:42→16:58)
[2022-10-23] MEDS: lidocaine 5% Patch 1 PATCH TOPICAL (07:42)
[2022-10-23 10:45] LABS: Glucose Point of Care 130 mg/dL (70-110)
[2022-10-23] MEDS: diclofenac 1% Topical Gel 100 gm 1 APPLIC TOPICAL (12:38)
--- NOTE | 2022-10-23 15:27 | P.PN_ITS ---
Subjective Subjective: No acute events overnight. Remained hemodynamically stable and afebrile within last 24 hours. Complaining of left-sided retro-orbital headache today. Denies any nausea or history of migraine. States pain is new. Suprapubic catheter changed with urology yesterday. Catheter draining well. Vitals/I&O/Wt Last Vital Signs Temp 98.4 F 10/23/22 11:30 Pulse 83 10/23/22 13:59 Resp 16 10/23/22 13:47 BP 119/80 10/23/22 11:30 Pulse Ox 98 10/23/22 13:47 O2 Del Method 10/23/22 13:47 O2 Flow Rate 3 10/23/22 13:47 FiO2 3 10/22/22 20:55 10/23/22 10/23/22 10/23/22 06:59 14:59 22:59 Intake Total 1220 / 3400 1000 / 1000 Balance 1220 / 3400 1000 / 1000 Physical Exam Narrative: Constitutional: Asleep, easily arousable, acutely ill-appearing but able to provide history HEENT: Normocephalic, facies is flushed, very dry lips and oropharynx, conjunctive are injected, nasopharynx is clear Neck: Large but supple Respiratory: Shallow respirations, tachypnea, no wheezes or retractions, speaking predominantly in a few word sentences with frequent pauses, oxygen tubing in place, no wheezes noted anteriorly, decreased both bases, no rhonchi Cardiovascular: Regular rate and rhythm, distant heart sounds Abdomen: Soft, nontender to palpation, positive but slow bowel sounds : Suprapubic catheter in place with dark yellow urine with some sediment noted, no blood seen Extremities: Lower extremities with bilateral pitting edema, extension contractu res of both ankles with both heels and heel protectors, no palpable cords noted, no complaints of increased pain or pressure sensation with calf palpation, some flexion contractures of fingers of both hands right more so than left Skin: Other than red face and flushed appearance, skin is pale, skin of both feet is dry and scaling on the soles and around the toes, palms are clean and soft Neuro: Speech soft but clear, face symmetric, some sensation to touch noted to hands more so than lower extremities, no involuntary or purposeful movements bel ow the head, is able to hit call light with neck Psych: Anxious and scared appearing in addition to acute ill appearance but cooperative, oriented to person place and situation Data 10/23/22 04:20 10/23/22 04:20 Micro: Microbiology 10/21/22 21:59 Urine Culture - Preliminary Urine Suprapubic 10/23/22 04:25 Blood Culture - Preliminary Blood SPECIMEN COLLECTED 10/23/22 04:20 Blood Culture - Preliminary Blood SPECIMEN COLLECTED 10/21/22 09:20 Blood Culture - Preliminary Blood Proteus mirabilis 10/21/22 08:55 Blood Culture - Preliminary Blood Proteus mirabilis A&P Assessment and plan (1) Gram-negative bacteremia: In setting of recurrent UTI. Sepsis not present because of no leukocytosis tachycardia or fever. No target organ dysfunction. History of ESBL E. coli UTI in the past. Supposed fosfomycin suppression as per ID but not getting for last couple of months. CT abdomen pelvis consistent with left hydroureteronephrosis with possible abutting of suprapubic catheter left UVJ. Appreciate ID and urology consultation. Follow-up blood culture. Repeat blood cultures sent in AM. Continue with meropenem. We will plan for PICC line placement. Most likely can discharge patient on ertapenem for a 14-day course from negative blood cultures. Suprapubic catheter replaced yesterday. Draining well. Patient will need to follow-up with Dr. Culp as an outpatient. (2) Neurogenic bladder: (3) Quadriplegia: (4) History of ESBL E. coli infection: (5) Suprapubic catheter: (6) Pneumonia: COVID-19, flu negative. Wean off oxygen keeping saturation over 88%. Most likely secondary to atelectasis. CT chest negative for any consolidation. Consistent with bilateral atelectasis and mild pleural effusion Hold off on Tamiflu for now. Incentive spirometry. (7) Recurrent UTI: With history of recent catheter exchange before starting of symptoms will cons ult urology for further recommendations. (8) Stage III pressure ulcer of right buttock: Present on admission, followed by wound care outpatient, debrided last week. Visual appearance appears unchanged from documented description of wound at that time. Continue wound care as outpatient. (9) Diabetes mellitus, type II: On chronic insulin therapy with peripheral neuropathy and chronic kidney disease stage IIIa; also on Sitagliptin and metformin chronically. Stop OHA. Continue insulin sliding scale before meals and at bedtime. 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 Carb consistent diet. Protonix for PUD prophylaxis Lovenox for DVT prophylaxis. Continue other chronic medications. Discharge planning: Plan to discharge back to SNF once patient is hemodynamically stable. Attestations Medical Necessity Statement*: Requires further hospitalization for management of gram-negative bacteremia in setting of left pyelonephritis, complicated cystitis in a patient with chronic suprapubic catheter, grade 3 decubitus ulcer Time Spent in Patient Care: Greater than 35 minutes Coding Level of Care Code Acute Business Intelligence Reporting Analyst for [facility] Fwd Diagnoses Gram-negative bacteremia R78.81 Neurogenic bladder N31.9 Quadriplegia G82.50 History of ESBL E. coli infection Z86.19 Suprapubic catheter Z93.59 Pneumonia J18.9 Recurrent UTI N39.0 Stage III pressure ulcer of right buttock L89.313 Diabetes mellitus, type II E11.9 Hyperlipidemia E78.5 manager intermediate prescription opiate use Z79.891 Therapeutic opioid induced constipation K59.03; T40.2X5A Anxiety and depression F41.9; F32.A
[2022-10-23 16:53] LABS: Glucose Point of Care 152 mg/dL (70-110)
[2022-10-23] MEDS: enoxaparin 40 mg/0.4 mL Syringe SUBCUT (16:58)
[2022-10-23] MEDS: insulin lispro 100 unit/1 mL SUBCUT (16:59)
--- NOTE | 2022-10-23 17:10 | P.PN_ITS ---
Subjective Subjective: c/o headache today Had catheter changed yesterday by urology, feels improved thereafter Last fever at ~2:30 pm yesterday pending final cx Vitals/I&O/Wt Last Vital Signs Temp 97.6 F 10/23/22 16:00 Pulse 95 10/23/22 16:00 Resp 16 10/23/22 16:00 BP 112/74 10/23/22 16:00 Pulse Ox 94 10/23/22 16:00 O2 Del Method 10/23/22 16:00 O2 Flow Rate 3 10/23/22 13:47 FiO2 3 10/22/22 20:55 10/23/22 10/23/22 10/23/22 06:59 14:59 22:59 Intake Total 1220 / 3400 1000 / 1000 Balance 1220 / 3400 1000 / 1000 Physical Exam Narrative: General: No acute distress, AO x3 HEENT: PERRLA, pupils bilaterally equal and reactive, pallors not present Chest: Normal vesicular breath sounds, no added sounds, equal good air entry bilaterally CVS: S1-S2 regular, no murmurs, no tachycardia, no gallops, no rubs Abdomen: Soft, nontender, no organomegaly, bowel sounds present, slight irritation around the site of her suprapubic catheter insertion Neuro: Patient is paraplegic. Data 10/23/22 04:20 10/23/22 04:20 Micro: Microbiology 10/21/22 21:59 Urine Culture - Preliminary Urine Suprapubic 10/23/22 04:25 Blood Culture - Preliminary Blood SPECIMEN COLLECTED 10/23/22 04:20 Blood Culture - Preliminary Blood SPECIMEN COLLECTED 10/21/22 09:20 Blood Culture - Preliminary Blood Proteus mirabilis 10/21/22 08:55 Blood Culture - Preliminary Blood Proteus mirabilis A&P Assessment and plan (1) Gram-negative bacteremia: (2) Neurogenic bladder: Plan Patient currently admitted for gram-negative sepsis with blood cultures positive for Proteus mirabilis. Likely source is complicated urinary tract infection. CT of the abdomen pelvis shows obstruction of the left UVJ junction by the sup rapubic catheter. changed yesterday. Currently appropriately covered with meropenem, recommend to continue at 2 g IV every 8 hour dosing. pending susceptibility Patient was recommended to be on chronic suppression with fosfomycin every 3 days in June 2022 and had been provided with 6 refills, however patient reports that she was taken off of treatment after the first month. Contacted the staff at [facility], fosfomycin was discontinued at the [facility] in June 2022 itself. Exact reason unable to be established for discontinuing. Will be sending new prescription at discharge will follow Attestations Medical Necessity Statement*: pending susceptibility results Coding Level of Care Code Acute Cement Sack Breaker for [facility] Fwd Diagnoses Gram-negative bacteremia R78.81 Neurogenic bladder N31.9
--- NOTE | 2022-10-23 18:10 | P.PN_ITS ---
Subjective Subjective: Urology follow-up: Feeling much better since the suprapubic tube was changed. Left flank pain has resolved. Tube is functioning well and urine is clear. Abdomen soft. Recommendations will be to continue suprapubic tube and have changed and were approximately 1 month in my office. Vitals/I&O/Wt Last Vital Signs Temp 97.6 F 10/23/22 16:00 Pulse 95 10/23/22 16:00 Resp 16 10/23/22 16:00 BP 112/74 10/23/22 16:00 Pulse Ox 94 10/23/22 16:00 O2 Del Method 10/23/22 16:00 O2 Flow Rate 3 10/23/22 13:47 FiO2 3 10/22/22 20:55 10/23/22 10/23/22 10/23/22 06:59 14:59 22:59 Intake Total 1220 / 3400 1000 / 1000 120 / 1120 Balance 1220 / 3400 1000 / 1000 120 / 1120 Physical Exam Const: COMMON NORMALS: no acute distress and well nourished GENERAL APPEARANCE: well kempt and well developed ORIENTATION/CONSCIOUSNESS: not confused Resp: COMMON NORMALS: normal respiratory effort EFFORT & INSPECTION: No lab ored and No Actively coughing GI: OTHER: Soft no palpable masses Psych: COMMON NORMALS: mental status grossly normal APPEARANCE: Yes grossly normal and Yes well kempt ATTITUDE: Yes calm and Yes engaged Data 10/23/22 04:20 10/23/22 04:20 Micro: Microbiology 10/21/22 21:59 Urine Culture - Preliminary Urine Suprapubic 10/23/22 04:25 Blood Culture - Preliminary Blood SPECIMEN COLLECTED 10/23/22 04:20 Blood Culture - Preliminary Blood SPECIMEN COLLECTED 10/21/22 09:20 Blood Culture - Preliminary Blood Proteus mirabilis 10/21/22 08:55 Blood Culture - Preliminary Blood Proteus mirabilis A&P Assessment and plan (1) Urinary retention: Neurogenic bladder secondary quadriplegia. Chronic suprapubic tube. Recently malpositioned with tip in the left ureteral orifice intramural tunnel. Resolved with changing tube. Plan 1. Hold on further urologic evaluation inpatient. Call for new concerns 2. I like to see her back in my office in about a month when she is due for her next suprapubic tube change Attestations Medical Necessity Statement*: See attending Coding Level of Care Code Acute Footwear Machinery Instructor for [facility] Fwd Diagnoses Urinary retention R33.9
[2022-10-23] MEDS: atorvastatin 40 mg Tablet PO (20:16)
[2022-10-23 20:32] LABS: Glucose Point of Care 114 mg/dL (70-110)
[2022-10-24] VITALS (10 sets, daily range): BP systolic 98–133; BP diastolic 68–87; PULSE 69–97; RESP 14–16; TEMP 36.6–36.9; O2SAT 93–97
[2022-10-24] MEDS: sodium chlor 0.9% + KCl 20 mEq 20 MEQ/1,000 ML BAG 75 MEQ IV ×2 (04:16→17:22)
[2022-10-24 04:50] LABS: Basophils % 0.6 %; Eosinophils # 0.2 10^3/uL (0.0-0.8); Eosinophils % 4.3 %; Hematocrit 35.5 % (37.0-47.0); Hemoglobin 10.3 g/dL (11.5-15.3); Lymphocytes % 27.5 %; Mean Corpuscular Volume 92.9 fl (81-99); Mean Platelet Volume 10.3 fL (7.4-10.4); Monocytes # 0.5 10^3/uL (0.2-0.9); Monocytes % 14.8 %; Neutrophils % 52.2 %; Nucleated Red Blood Cells % 0 %; Platelet Count 195 10^3/cmm (130-400); Red Blood Count 3.82 10^6/uL (4.1-5.3); Red Cell Distribution Width 15.6 % (12.1-15.1); White Blood Count 3.5 10^3/uL (4.0-10.0)
[2022-10-24 05:14] LABS: Alanine Aminotransferase 15 U/L (0-33); Alkaline Phosphatase 61 U/L (35-105); Anion Gap 14.8 (5-19); Aspartate Amino Transferase 16 U/L (0-32); Blood Urea Nitrogen 16 mg/dL (6-20); Calcium 8.7 mg/dL (8.5-10.5); Carbon Dioxide 23 mmol/L (22-29); Chloride 105 mmol/L (98-107); Globulin 3.5 g/dL (1.3-4.6); Glomerular Filtration Rate 107.2 mL/min (90-130); Glucose 103 mg/dL (65-115); Osmolality Calculated 287 mOsm/kg (285-295); Potassium 4.8 mmol/L (3.5-5.1); Sodium 138 mmol/L (136-145); Total Bilirubin 0.2 mg/dL (0.15-1.2); Total Protein 6.5 g/dL (6.6-8.7)
[2022-10-24 06:44] LABS: Glucose Point of Care 122 mg/dL (70-110)
[2022-10-24] MEDS: ipratropium-albuterol 3 mL Neb INHALATION ×2 (08:00→13:46)
[2022-10-24] MEDS: pantoprazole DR 40 mg Tablet PO (08:40)
[2022-10-24] MEDS: docusate sodium 100 mg Capsule PO ×2 (08:40→17:22)
[2022-10-24] MEDS: oxybutynin 5 mg Tablet PO ×3 (08:40→20:12)
[2022-10-24] MEDS: simethicone 80 mg Chew PO ×3 (08:40→17:22)
[2022-10-24] MEDS: potassium chloride ER 20 mEq Tablet PO (08:40)
[2022-10-24] MEDS: gabapentin 300 mg Capsule 1200 MG PO ×3 (08:40→20:12)
[2022-10-24] MEDS: ascorbic acid 500 mg Tablet 1000 MG PO ×2 (08:40→17:22)
[2022-10-24] MEDS: sertraline 50 mg Tablet PO (08:40)
[2022-10-24] MEDS: sennosides-docusate Tablet 2 TAB PO ×2 (08:41→20:11)
[2022-10-24] MEDS: cyclobenzaprine 10 mg Tablet 5 MG PO ×3 (08:41→20:10)
[2022-10-24] MEDS: lidocaine 5% Patch 1 PATCH TOPICAL (08:41)
[2022-10-24] MEDS: magnesium hydroxide 30 mL UDC 5 ML PO (08:41)
[2022-10-24] MEDS: calcium carb-vit d 600mg/400unit 1 Tablet 1 EACH PO ×2 (08:41→17:22)
[2022-10-24] MEDS: diclofenac 1% Topical Gel 100 gm 1 APPLIC TOPICAL (09:36)
--- NOTE | 2022-10-24 09:42 | PC.SOCIAL ---
IMM update IMM updated with patient. Copy Pg 2 provided. Verbalized an understanding. Initialled, dated, timed, and placed in chart.
[2022-10-24 10:48] LABS: Glucose Point of Care 182 mg/dL (70-110)
[2022-10-24] MEDS: insulin lispro 100 unit/1 mL SUBCUT ×2 (12:35→22:08)
--- NOTE | 2022-10-24 13:10 | PC.NURSE ---
Midline cath placed to right basilic vein. 12 cm inserted with 0 cm external length. Mid arm circumference measured 10 cm from AC space and noted at 26 cm. Pt tolerated well. Dressing due to be changed 10/25/22. Report given to patient care nurse.
--- NOTE | 2022-10-24 14:06 | PM.PN ---
Subjective Subjective: Infectious disease progress note. No new complaints. Received midline placement today Vitals/I&O/Wt Last Vital Signs Temp 98.1 F 10/24/22 11:59 Pulse 77 10/24/22 13:59 Resp 16 10/24/22 13:53 BP 110/76 10/24/22 11:59 Pulse Ox 97 10/24/22 13:53 O2 Del Method 10/24/22 13:53 O2 Flow Rate 2 10/24/22 13:53 FiO2 3 10/22/22 20:55 10/23/22 10/24/22 10/24/22 22:59 06:59 14:59 Intake Total 170 / 1170 1050 / 2220 720 / 720 Output Total 2600 / 2600 Balance 170 / 1170 1050 / 2220 -1880 / -1880 Physical Exam Narrative: General: No acute distress, AO x3 HEENT: PERRLA, pupils bilaterally equal and reactive, pallors not present Chest: Normal vesicular breath sounds, no added sounds, equal good air entry bilaterally CVS: S1-S2 regular, no murmurs, no tachycardia, no gallops, no rubs Abdomen: Soft, nontender, SPC changed, new catheter in place Neuro: Patient is paraplegic. Data 10/24/22 04:34 10/24/22 04:34 Micro: Microbiology 10/21/22 21:59 Urine Culture - Final Urine Suprapubic 10/23/22 04:20 Blood Culture - Preliminary Blood NEGATIVE TO DATE 10/23/22 04:25 Blood Culture - Preliminary Blood NEGATIVE TO DATE A&P Assessment and plan (1) Gram-negative bacteremia: (2) Neurogenic bladder: Plan Patient currently admitted for gram-negative sepsis with blood cultures positive for Proteus mirabilis identified on PCR. Likely source is complicated urinary tract infection. CT of the abdomen pelvis shows obstruction of the left UVJ junction by the suprapubic catheter. replaced now by urology Currently appropriately covered with meropenem, recommend to continue at 2 g IV every 8 hour dosing. pending cx and susceptibility Patient was recommended to be on chronic suppression with fosfomycin every 3 days in June 2022 and had been provided with 6 refills, however patient reports that she was taken off of treatment after the first month. Contacted the staff at [facility], fosfomycin was discontinued at the [facility] in June 2022 itself. Exact reason unable to be established for discontinuing. Will be sending new prescription at discharge will follow Attestations Medical Necessity Statement*: per admitting Coding Level of Care Code Acute Garland Machine Operator for [facility] Fwd Diagnoses Gram-negative bacteremia R78.81 Neurogenic bladder N31.9
--- NOTE | 2022-10-24 15:11 | P.PN_ITS ---
Subjective Subjective: No acute events overnight. Staes she is feeling a lot better. Denies any further headache. Denies any N/V. Has remained afebrile. Vitals/I&O/Wt Last Vital Signs Temp 98.1 F 10/24/22 11:59 Pulse 77 10/24/22 13:59 Resp 16 10/24/22 13:53 BP 110/76 10/24/22 11:59 Pulse Ox 97 10/24/22 13:53 O2 Del Method 10/24/22 13:53 O2 Flow Rate 2 10/24/22 13:53 FiO2 3 10/22/22 20:55 10/24/22 10/24/22 10/24/22 06:59 14:59 22:59 Intake Total 1050 / 2220 770 / 770 Output Total 2600 / 2600 Balance 1050 / 2220 -1830 / -1830 Physical Exam Narrative: Constitutional: Asleep, easily arousable, acutely ill-appearing but able to provide history HEENT: Normocephalic, facies is flushed, very dry lips and oropharynx, conj unctive are injected, nasopharynx is clear Neck: Large but supple Respiratory: Shallow respirations, tachypnea, no wheezes or retractions, speaking predominantly in a few word sentences with frequent pauses, oxygen tubing in place, no wheezes noted anteriorly, decreased both bases, no rhonchi Cardiovascular: Regular rate and rhythm, distant heart sounds Abdomen: Soft, nontender to palpation, positive but slow bowel sounds : Suprapubic catheter in place with dark yellow urine with some sediment noted, no blood seen Extremities: Lower extremities with bilateral pitting edema, extension contractures of both ankles with both heels and heel protectors, no palpable cords noted, no complaints of increased pain or pressure sensation with calf pal pation, some flexion contractures of fingers of both hands right more so than left Skin: Other than red face and flushed appearance, skin is pale, skin of both feet is dry and scaling on the soles and around the toes, palms are clean and soft Neuro: Speech soft but clear, face symmetric, some sensation to touch noted to hands more so than lower extremities, no involuntary or purposeful movements below the head, is able to hit call light with neck Psych: Anxious and scared appearing in addition to acute ill appearance but cooperative, oriented to person place and situation Data 10/24/22 04:34 10/24/22 04:34 Micro: Microbiology 10/21/22 21:59 Urine Culture - Final Urine Suprapubic 10/23/22 04:20 Blood Culture - Preliminary Blood NEGATIVE TO DATE 10/23/22 04:25 Blood Culture - Preliminary Blood NEGATIVE TO DATE A&P Assessment and plan (1) Gram-negative bacteremia: In setting of recurrent UTI. Sepsis not present because of no leukocytosis tachycardia or fever. No target organ dysfunction. History of ESBL E. coli UTI in the past. Supposed fosfomycin suppression as per ID but not getting for last couple of months. CT abdomen pelvis consistent with left hydroureteronephrosis with possible abutting of suprapubic catheter left UVJ. Appreciate ID and urology consultation. Follow-up blood culture. Repeat blood cultures sent in AM. Continue with meropenem. We will plan for PICC line placement. Most likely can discharge patient on ertapenem for a 14-day course from negative blood cultures. Suprapubic catheter replaced yesterday. Draining well. Patient will need to follow-up with Dr. Culp as an outpatient. (2) Neurogenic bladder: (3) Quadriplegia: (4) History of ESBL E. coli infection: (5) Suprapubic catheter: (6) Pneumonia: COVID-19, flu negative. Wean off oxygen keeping saturation over 88%. Most likely secondary to atelectasis. CT chest negative for any consolidation. Consistent with bilateral atelectasis and mild pleural effusion Hold off on Tamiflu for now. Incentive spirometry. (7) Recurrent UTI: With history of recent catheter exchange before starting of symptoms will consult urology for further recommendations. (8) Stage III pressure ulcer of right buttock: Present on admission, followed by wound care outpatient, debrided last week. Visual appearance appears unchanged from documented description of wound at that time. Continue wound care as outpatient. (9) Diabetes mellitus, type II: On chronic insulin therapy with peripheral neuropathy and chronic kidney disease stage IIIa; also on Sitagliptin and metformin chronically. Stop OHA. Continue insulin sliding scale before meals and at bedtime. 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 Carb consistent diet. Protonix for PUD prophylaxis Lovenox for DVT prophylaxis. Continue other chronic medications. Plan for the day: Mid line placement today. F/w Bcx sensitivities. C/w current Abx. Plan to dc on Abx for 14 day course. Discharge planning: Plan to discharge back to SNF once patient is hemodynamically stable. Attestations Medical Necessity Statement*: Requires further hospitalization for management of GN bacteremia while mid line and out patient Abx are arranged for longterm Abx course. Time Spent in Patient Care: Greater than 35 minutes Coding Level of Care Code Acute Litigation Examiner for [facility] Fwd Diagnoses Gram-negative bacteremia R78.81 Neurogenic bladder N31.9 Quadriplegia G82.50 History of ESBL E. coli infection Z86.19 Suprapubic catheter Z93.59 Pneumonia J18.9 Recurrent UTI N39.0 Stage III pressure ulcer of right buttock L89.313 Diabetes mellitus, type II E11.9 Hyperlipidemia E78.5 long term care pharmacist prescription opiate use Z79.891 Therapeutic opioid induced constipation K59.03; T40.2X5A Anxiety and depression F41.9; F32.A
[2022-10-24 16:41] LABS: Glucose Point of Care 124 mg/dL (70-110)
[2022-10-24] MEDS: enoxaparin 40 mg/0.4 mL Syringe SUBCUT (17:22)
[2022-10-24] MEDS: fentaNYL 50 mcg Patch 1 PATCH TRANSDERMA (17:22)
[2022-10-24] MEDS: atorvastatin 40 mg Tablet PO (20:12)
[2022-10-24] MEDS: ALPRAZolam 0.5 mg Tablet 0.25 MG PO (20:44)
[2022-10-24 21:56] LABS: Glucose Point of Care 143 mg/dL (70-110)
[2022-10-25] VITALS (9 sets, daily range): BP systolic 114–128; BP diastolic 79–85; PULSE 81–100; RESP 14–18; TEMP 36.4–37; O2SAT 92–96
[2022-10-25] MEDS: ipratropium 0.5 mg/2.5 mL Neb INHALATION ×3 (00:03→13:20)
[2022-10-25] MEDS: albuterol 2.5 mg/3 mL Neb INHALATION ×3 (00:03→13:20)
[2022-10-25] MEDS: morphine 10 mg/0.5 mL oral liq UD 5 MG PO (03:07)
[2022-10-25 06:41] LABS: Glucose Point of Care 133 mg/dL (70-110)
[2022-10-25] MEDS: ALPRAZolam 0.5 mg Tablet 0.25 MG PO (09:59)
[2022-10-25] MEDS: sodium chlor 0.9% + KCl 20 mEq 20 MEQ/1,000 ML BAG 75 MEQ IV (10:00)
[2022-10-25] MEDS: cyclobenzaprine 10 mg Tablet 5 MG PO ×3 (10:00→21:26)
[2022-10-25] MEDS: magnesium hydroxide 30 mL UDC 5 ML PO (10:00)
[2022-10-25] MEDS: ascorbic acid 500 mg Tablet 1000 MG PO ×2 (10:01→18:36)
[2022-10-25] MEDS: potassium chloride ER 20 mEq Tablet PO (10:01)
[2022-10-25] MEDS: calcium carb-vit d 600mg/400unit 1 Tablet 1 EACH PO ×2 (10:01→18:36)
[2022-10-25] MEDS: oxybutynin 5 mg Tablet PO ×3 (10:02→21:27)
[2022-10-25] MEDS: diclofenac 1% Topical Gel 100 gm 1 APPLIC TOPICAL ×2 (10:02→18:36)
[2022-10-25] MEDS: ondansetron 2 mg/ML SDV 2 mL 4 MG IVP (10:02)
[2022-10-25] MEDS: pantoprazole DR 40 mg Tablet PO (10:02)
[2022-10-25] MEDS: docusate sodium 100 mg Capsule PO ×2 (10:02→18:36)
[2022-10-25] MEDS: gabapentin 300 mg Capsule 1200 MG PO ×3 (10:02→21:26)
[2022-10-25] MEDS: lidocaine 5% Patch 1 PATCH TOPICAL (10:03)
[2022-10-25] MEDS: sennosides-docusate Tablet 2 TAB PO ×2 (10:25→20:37)
[2022-10-25] MEDS: sertraline 50 mg Tablet PO (10:26)
[2022-10-25] MEDS: simethicone 80 mg Chew PO ×3 (10:26→19:27)
[2022-10-25 11:41] LABS: Glucose Point of Care 195 mg/dL (70-110)
[2022-10-25] MEDS: insulin lispro 100 unit/1 mL SUBCUT (12:37)
--- NOTE | 2022-10-25 12:46 | PM.PN ---
Subjective Subjective: No acute events overnight. Patient has remained hemodynamically stable and afebrile. Denies any nausea, vomiting, headache. States feeling a lot better. Vitals/I&O/Wt Last Vital Signs Temp 98.3 F 10/25/22 08:00 Pulse 84 10/25/22 10:07 Resp 16 10/25/22 10:07 BP 123/80 10/25/22 08:00 Pulse Ox 96 10/25/22 10:07 O2 Del Method 10/25/22 10:07 O2 Flow Rate 0.5 10/25/22 10:07 FiO2 3 10/22/22 20:55 10/24/22 10/25/22 10/25/22 22:59 06:59 14:59 Intake Total 1152.5 / 1922.5 1050 / 2972.5 320 / 320 Output Total 1500 / 4100 Balance 1152.5 / -677.5 -450 / -1127.5 320 / 320 Physical Exam Narrative: Constitutional: Asleep, easily arousable, acutely ill-appearing but able to provide history HEENT: Normocephalic, facies is flushed, very dry lips and oropharynx, conjunctive are injected, nasopharynx is clear Neck: Large but supple Respiratory: Shallow respirations, tachypnea, no wheezes or retractions, speaking predominantly in a few word sentences with frequent pauses, oxygen tubing in place, no wheezes noted anteriorly, decreased both bases, no rhonchi Cardiovascular: Regular rate and rhythm, distant heart sounds Abdomen: Soft, nontender to palpation, positive but slow bowel sounds : Suprapubic catheter in place with dark yellow urine with some sediment noted, no blood seen Extremities: Lower extremities with bilateral pitting edema, extension contractures of both ankles with both heels and heel protectors, no palpable cords noted, no complaints of increased pain or pressure sensation with calf palpation, some flexion contractures of fingers of both hands right more so than left Skin: Other than red face and flushed appearance, skin is pale, skin of both feet is dry and scaling on the soles and around the toes, palms are clean and soft Neuro: Speech soft but clear, face symmetric, some sensation to touch noted to hands more so than lower extremities, no involuntary or purposeful movements below the head, is able to hit call light with neck Psych: Anxious and scared appearing in addition to acute ill appearance but cooperative, oriented to person place and situation Data 10/24/22 04:34 10/24/22 04:34 Micro: Microbiology 10/21/22 09:20 Blood Culture - Preliminary Blood Proteus mirabilis esbl 10/21/22 21:59 Urine Culture - Final Urine Suprapubic A&P Assessment and plan (1) Gram-negative bacteremia: In setting of recurrent UTI. Sepsis not present because of no leukocytosis tachycardia or fever. No target organ dysfunction. History of ESBL E. coli UTI in the past. Supposed fosfomycin suppression as per ID but not getting for last couple of months. CT abdomen pelvis consistent with left hydroureteronephrosis with possible abutting of suprapubic catheter left UVJ. Appreciate ID and urology consultation. Follow-up blood culture. Repeat blood cultures so far negative. Midline placed. Culture sensitivity shows intermittent resistance to ertapenem. We will plan to discharge on meropenem for overall 14-day course of antibiotics. Case management has been alerted. Will confirm with the [facility]. For now continue with meropenem 2 g IV every 8 hour as needed. Suprapubic catheter replaced yesterday. Draining well. Patient will need to follow-up with Dr. Culp as an outpatient. (2) Neurogenic bladder: (3) Quadriplegia: (4) History of ESBL E. coli infection: (5) Suprapubic catheter: (6) Pneumonia: COVID-19, flu negative. Wean off oxygen keeping saturation over 88%. Most likely secondary to atelectasis. CT chest negative for any consolidation. Consistent with bilateral atelectasis and mild pleural effusion Hold off on Tamiflu for now. Incentive spirometry. (7) Recurrent UTI: With history of recent catheter exchange before starting of symptoms will consult urology for further recommendations. (8) Stage III pressure ulcer of right buttock: Present on admission, followed by wound care outpatient, debrided last week. Visual appearance appears unchanged from documented description of wound at that time. Continue wound care as outpatient. (9) Diabetes mellitus, type II: On chronic insulin therapy with peripheral neuropathy and chronic kidney disease stage IIIa; also on Sitagliptin and metformin chronically. Stop OHA. Continue insulin sliding scale before meals and at bedtime. 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 Carb consistent diet. Protonix for PUD prophylaxis Lovenox for DVT prophylaxis. Continue other chronic medications. Discharge planning: Plan to discharge back to SNF once patient is hemodynamically stable. Attestations Medical Necessity Statement*: Requires further hospitalization for management of gram-negative bacteremia in setting of complicated cystitis, decub ulcer while outpatient antibiotic are arranged. Time Spent in Patient Care: 16 - 35 minutes Coding Level of Care Code Acute Criminal Psychologist for [facility] Fwd Diagnoses Gram-negative bacteremia R78.81 Neurogenic bladder N31.9 Quadriplegia G82.50 History of ESBL E. coli infection Z86.19 Suprapubic catheter Z93.59 Pneumonia J18.9 Recurrent UTI N39.0 Stage III pressure ulcer of right buttock L89.313 Diabetes mellitus, type II E11.9 Hyperlipidemia E78.5 termite treater helper prescription opiate use Z79.891 Therapeutic opioid induced constipation K59.03; T40.2X5A Anxiety and depression F41.9; F32.A
[2022-10-25 16:52] LABS: Glucose Point of Care 132 mg/dL (70-110)
[2022-10-25] MEDS: enoxaparin 40 mg/0.4 mL Syringe SUBCUT (18:36)
[2022-10-25 21:16] LABS: Glucose Point of Care 121 mg/dL (70-110)
[2022-10-25] MEDS: atorvastatin 40 mg Tablet PO (21:26)
[2022-10-26] VITALS (14 sets, daily range): BP systolic 111–124; BP diastolic 71–87; PULSE 62–100; RESP 16–18; TEMP 36.4–36.9; O2SAT 91–96
[2022-10-26] MEDS: ipratropium 0.5 mg/2.5 mL Neb INHALATION ×4 (02:34→22:00)
[2022-10-26] MEDS: albuterol 2.5 mg/3 mL Neb INHALATION ×4 (02:34→21:59)
[2022-10-26 05:58] LABS: Basophils % 0.5 %; Eosinophils # 0.5 10^3/uL (0.0-0.8); Eosinophils % 7.1 %; Hematocrit 37.4 % (37.0-47.0); Hemoglobin 11.4 g/dL (11.5-15.3); Lymphocytes # 1.8 10^3/uL (0.8-4.8); Lymphocytes % 26.6 %; Mean Corpuscular HGB Conc 30.5 g/dL (30.0-36.0); Mean Corpuscular Hemoglobin 26.5 pg (28.0-34.0); Mean Platelet Volume 9.9 fL (7.4-10.4); Monocytes # 0.5 10^3/uL (0.2-0.9); Nucleated Red Blood Cells % 0 %; Platelet Count 238 10^3/cmm (130-400); Red Cell Distribution Width 15.5 % (12.1-15.1); White Blood Count 6.7 10^3/uL (4.0-10.0)
[2022-10-26 06:15] LABS: Glucose Point of Care 118 mg/dL (70-110)
[2022-10-26 06:27] LABS: Alanine Aminotransferase 14 U/L (0-33); Albumin Level 3.8 g/dL (3.5-5.2); Alkaline Phosphatase 63 U/L (35-105); Aspartate Amino Transferase 16 U/L (0-32); Blood Urea Nitrogen 21 mg/dL (6-20); Calcium 9.8 mg/dL (8.5-10.5); Carbon Dioxide 25 mmol/L (22-29); Globulin 3.4 g/dL (1.3-4.6); Glomerular Filtration Rate 76.9 mL/min (90-130); Glucose 110 mg/dL (65-115); Total Bilirubin 0.2 mg/dL (0.15-1.2); Total Protein 7.2 g/dL (6.6-8.7)
[2022-10-26 07:01] LABS: Anion Gap 16.1 (5-19); Chloride 101 mmol/L (98-107); Osmolality Calculated 290 mOsm/kg (285-295); Potassium 4.1 mmol/L (3.5-5.1); Sodium 138 mmol/L (136-145)
[2022-10-26] MEDS: ondansetron 2 mg/ML SDV 2 mL 4 MG IVP (09:17)
[2022-10-26] MEDS: potassium chloride ER 20 mEq Tablet PO (09:18)
[2022-10-26] MEDS: docusate sodium 100 mg Capsule PO ×2 (09:18→18:02)
[2022-10-26] MEDS: pantoprazole DR 40 mg Tablet PO (09:18)
[2022-10-26] MEDS: oxybutynin 5 mg Tablet PO ×3 (09:18→20:58)
[2022-10-26] MEDS: sennosides-docusate Tablet 2 TAB PO ×2 (09:18→20:56)
[2022-10-26] MEDS: gabapentin 300 mg Capsule 1200 MG PO ×3 (09:18→20:57)
[2022-10-26] MEDS: ascorbic acid 500 mg Tablet 1000 MG PO ×2 (09:18→18:02)
[2022-10-26] MEDS: pregabalin 50 mg Capsule PO ×2 (09:18→18:07)
[2022-10-26] MEDS: sertraline 50 mg Tablet PO (09:18)
[2022-10-26] MEDS: calcium carb-vit d 600mg/400unit 1 Tablet 1 EACH PO ×2 (09:18→18:02)
[2022-10-26] MEDS: cyclobenzaprine 10 mg Tablet 5 MG PO ×3 (09:19→20:57)
[2022-10-26] MEDS: ALPRAZolam 0.5 mg Tablet 0.25 MG PO ×2 (09:19→20:57)
[2022-10-26] MEDS: lidocaine 5% Patch 1 PATCH TOPICAL (09:20)
[2022-10-26] MEDS: magnesium hydroxide 30 mL UDC 5 ML PO (09:22)
[2022-10-26] MEDS: simethicone 80 mg Chew PO ×3 (09:26→18:08)
[2022-10-26] MEDS: diclofenac 1% Topical Gel 100 gm 1 APPLIC TOPICAL ×2 (09:26→18:03)
--- NOTE | 2022-10-26 09:33 | PC.SOCIAL ---
IMM update IMM updated with patient. Verbalized an understanding. Copy Pg 2 provided. Initialled, dated, timed, and placed in chart.
[2022-10-26 11:54] LABS: Glucose Point of Care 131 mg/dL (70-110)
--- NOTE | 2022-10-26 14:04 | P.PN_ITS ---
Subjective Subjective: No acute events overnight. Status quo. Denies any nausea, vomiting, headache. Has remained hemodynamically stable and afebrile. Asking Lyrica to be very added to her medication list. States she needs to take Lyrica and gabapentin together for having effect on neuropathic pain as gabapentin has been increased to the maximum dose. Vitals/I&O/Wt Last Vital Signs Temp 97.5 F L 10/26/22 12:00 Pulse 100 10/26/22 12:00 Resp 17 10/26/22 12:00 BP 122/85 10/26/22 12:00 Pulse Ox 92 10/26/22 12:00 O2 Del Method 10/26/22 08:15 O2 Flow Rate 0.5 10/25/22 10:07 FiO2 3 10/22/22 20:55 10/25/22 10/26/22 10/26/22 22:59 06:59 14:59 Intake Total 290 / 1100 50 / 1150 880 / 880 Balance 290 / 1100 50 / 1150 880 / 880 Physical Exam Narrative: Constitutional: Asleep, easily arousable, acutely ill-appearing but able to provide history HEENT: Normocephalic, facies is flushed, very dry lips and oropharynx, conjunctive are injected, nasopharynx is clear Neck: Large but supple Respiratory: Shallow respirations, tachypnea, no wheezes or retractions, speaking predominantly in a few word sentences with frequent pauses, oxygen tubing in place, no wheezes noted anteriorly, decreased both bases, no rhonchi Cardiovascular: Regular rate and rhythm, distant heart sounds Abdomen: Soft, nontender to palpation, positive but slow bowel sounds : Suprapubic catheter in place with dark yellow urine with some sediment noted, no blood seen Extremities: Lower extremities with bilateral pitting edema, extension contractures of both ankles with both heels and heel protectors, no palpable cords noted, no complaints of increased pain or pressure sensation with calf palpation, some flexion contractures of fingers of both hands right more so than left Skin: Other than red face and flushed appearance, skin is pale, skin of both feet is dry and scaling on the soles and around the toes, palms are clean and soft Neuro: Speech soft but clear, face symmetric, some sensation to touch noted to hands more so than lower extremities, no involuntary or purposeful movements below the head, is able to hit call light with neck Psych: Anxious and scared appearing in addition to acute ill appearance but cooperative, oriented to person place and situation Data 10/26/22 05:30 10/26/22 05:30 Micro: Microbiology 10/21/22 08:55 Blood Culture - Final Blood Proteus mirabilis 10/21/22 09:20 Blood Culture - Final Blood Proteus mirabilis esbl A&P Assessment and plan (1) Gram-negative bacteremia: In setting of recurrent UTI. Sepsis not present because of no leukocytosis tach ycardia or fever. No target organ dysfunction. History of ESBL E. coli UTI in the past. Supposed fosfomycin suppression as per ID but not getting for last couple of months. CT abdomen pelvis consistent with left hydroureteronephrosis with possible abutting of suprapubic catheter left UVJ. Appreciate ID and urology consultation. Follow-up blood culture. Repeat blood cultures so far negative. Midline placed. Culture sensitivity shows intermittent resistance to ertapenem. We will plan to discharge on meropenem for overall 14-day course of antibiotics. Case management has been alerted. Will confirm with the [facility]. For now continue with meropenem 2 g IV every 8 hour as needed. Suprapubic catheter replaced yesterday. Draining well. Patient will need to follow-up with Dr. Culp as an outpatient. (2) Neurogenic bladder: (3) Quadriplegia: (4) History of ESBL E. coli infection: (5) Suprapubic catheter: (6) Pneumonia: COVID-19, flu negative. Wean off oxygen keeping saturation over 88%. Most likely secondary to atelectasis. CT chest negative for any consolidation. Consistent with bilateral atelectasis and mild pleural effusion Hold off on Tamiflu for now. Incentive spirometry. (7) Recurrent UTI: With history of recent catheter exchange before starting of symptoms will consult urology for further recommendations. (8) Stage III pressure ulcer of right buttock: Present on admission, followed by wound care outpatient, debrided last week. Visual appearance appears unchanged from documented description of wound at that time. Continue wound care as outpatient. (9) Diabetes mellitus, type II: On chronic insulin therapy with peripheral neuropathy and chronic kidney disease stage IIIa; also on Sitagliptin and metformin chronically. Stop OHA. Continue insulin sliding scale before meals and at bedtime. 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 Carb consistent diet. Protonix for PUD prophylaxis Lovenox for DVT prophylaxis. Continue other chronic medications. Plan for the day: Continue with IV of antibiotics. Follow-up blood cultures. Monitor vitals. Lab holiday tomorrow. Discharge planning: Plan to discharge back to SNF once patient is hemodynamically stable. Attestations Medical Necessity Statement*: Requires further hospitalization for management of ESBL bacteremia right outpatient antibiotics are being set up. Time Spent in Patient Care: 16 - 35 minutes Coding Level of Care Code Acute Ocean Export Coordinator for [facility] Fwd Diagnoses Gram-negative bacteremia R78.81 Neurogenic bladder N31.9 Quadriplegia G82.50 History of ESBL E. coli infection Z86.19 Suprapubic catheter Z93.59 Pneumonia J18.9 Recurrent UTI N39.0 Stage III pressure ulcer of right buttock L89.313 Diabetes mellitus, type II E11.9 Hyperlipidemia E78.5 long-term prescription opiate use Z79.891 Therapeutic opioid induced constipation K59.03; T40.2X5A Anxiety and depression F41.9; F32.A
--- NOTE | 2022-10-26 17:10 | PM.PN ---
Subjective Subjective: Infectious disease progress note. No new events. Afebrile, hemodynamically stable. Vitals/I&O/Wt Last Vital Signs Temp 97.9 F 10/26/22 16:00 Pulse 98 10/26/22 16:00 Resp 16 10/26/22 16:00 BP 113/80 10/26/22 16:00 Pulse Ox 93 10/26/22 16:00 O2 Del Method 10/26/22 16:00 O2 Flow Rate 0.5 10/25/22 10:07 FiO2 3 10/22/22 20:55 10/26/22 10/26/22 10/26/22 06:59 14:59 22:59 Intake Total 50 / 1150 880 / 880 Balance 50 / 1150 880 / 880 Physical Exam Narrative: General: No acute distress, AO x3 HEENT: PERRLA, pupils bilaterally equal and reactive, pallors not present Chest: Normal vesicular breath sounds, no added sounds, equal good air entry bilaterally CVS: S1-S2 regular, no murmurs, no tachycardia, no gallops, no rubs Abdomen: Soft, nontender, SPC changed, new catheter in place Neuro: Patient is paraplegic. Data 10/26/22 05:30 10/26/22 05:30 Micro: Microbiology 10/21/22 08:55 Blood Culture - Final Blood Proteus mirabilis 10/21/22 09:20 Blood Culture - Final Blood Proteus mirabilis esbl A&P Assessment and plan (1) Gram-negative bacteremia: (2) Neurogenic bladder: Plan Patient currently admitted for gram-negative sepsis with blood cultures positive for Proteus mirabilis identified on PCR. Likely source is complicated urinary tract infection. CT of the abdomen pelvis shows obstruction of the left UVJ junction by the suprapubic catheter. replaced now by urology Currently appropriately covered with meropenem, recommend to continue at 2 g IV every 8 hour dosing. Per discussion with lab isolate with intermediate susceptibility to ertapenem. Would prefer meropenem 2 g IV every 8 hours at discharge. Total treatment for 14 days from clearance of blood culture. Patient was recommended to be on chronic suppression with fosfomycin every 3 days in June 2022 and had been provided with 6 refills, however patient reports that she was taken off of treatment after the first month. Contacted the staff at [facility], fosfomycin was discontinued at the [facility] in June 2022 itself. Exact reason unable to be established for discontinuing. Will be sending new prescription at discharge Follow-up in ID clinic in 1 month. Attestations Medical Necessity Statement*: Per admitting Coding Level of Care Code Acute Neurology Technologist for [facility] Fwd Diagnoses Gram-negative bacteremia R78.81 Neurogenic bladder N31.9
[2022-10-26 17:18] LABS: Glucose Point of Care 191 mg/dL (70-110)
[2022-10-26] MEDS: enoxaparin 40 mg/0.4 mL Syringe SUBCUT (18:02)
[2022-10-26] MEDS: insulin lispro 100 unit/1 mL SUBCUT ×2 (18:05→21:35)
[2022-10-26] MEDS: atorvastatin 40 mg Tablet PO (20:58)
[2022-10-26 21:23] LABS: Glucose Point of Care 177 mg/dL (70-110)
[2022-10-27 03:40] VITALS: BP 113/77; PULSE 80; RESP 16; TEMP 36.4; O2SAT 93
[2022-10-27 06:44] LABS: Glucose Point of Care 145 mg/dL (70-110)
[2022-10-27 08:00] VITALS: BP 115/81; PULSE 87; RESP 18; TEMP 36.4; O2SAT 92; O2SAT 93
[2022-10-27] MEDS: calcium carb-vit d 600mg/400unit 1 Tablet 1 EACH PO (08:32)
[2022-10-27] MEDS: gabapentin 300 mg Capsule 1200 MG PO (08:33)
[2022-10-27] MEDS: cyclobenzaprine 10 mg Tablet 5 MG PO (08:34)
[2022-10-27] MEDS: ascorbic acid 500 mg Tablet 1000 MG PO (08:35)
[2022-10-27] MEDS: potassium chloride ER 20 mEq Tablet PO (08:35)
[2022-10-27] MEDS: pregabalin 50 mg Capsule PO (08:35)
[2022-10-27] MEDS: oxybutynin 5 mg Tablet PO (08:35)
[2022-10-27] MEDS: pantoprazole DR 40 mg Tablet PO (08:35)
[2022-10-27] MEDS: magnesium hydroxide 30 mL UDC 5 ML PO (08:35)
[2022-10-27] MEDS: ALPRAZolam 0.5 mg Tablet 0.25 MG PO (08:36)
[2022-10-27] MEDS: docusate sodium 100 mg Capsule PO (08:36)
[2022-10-27] MEDS: insulin lispro 100 unit/1 mL SUBCUT ×2 (08:36→12:36)
[2022-10-27] MEDS: lidocaine 5% Patch 1 PATCH TOPICAL (09:23)
[2022-10-27] MEDS: diclofenac 1% Topical Gel 100 gm 1 APPLIC TOPICAL (09:24)
[2022-10-27] MEDS: sertraline 50 mg Tablet PO (09:26)
[2022-10-27 11:00] LABS: SARS Covid-2 Antigen negative (Negative)
[2022-10-27 11:23] LABS: Glucose Point of Care 198 mg/dL (70-110)
[2022-10-27 12:00] VITALS: BP 111/79; PULSE 92; RESP 18; TEMP 36.6; O2SAT 93
--- NOTE | 2022-10-27 12:18 | PM.DCS ---
Discharge Providers Date of Admission: 10/21/22 13:52 Date of Discharge: October 27, 2022 Attending Provider at Admission: Debi Butler MD Attending Provider at Discharge: Simon Huitron Primary Care Provider: Shakira Cruz MD Diagnoses at Discharge Discharge Diagnosis (1) Gram-negative bacteremia: Status: Acute (2) Neurogenic bladder: Status: Chronic Reason for Visit Reason for Visit: Confused/Fever Hospital Course Hospital Course 47-year-old pleasant lady with quadriplegia, suprapubic catheter, history of ESBL organism UTI, was admitted due to lethargy, weakness, found to have complicated cystitis with ESBL bacteremia. Left sided hydroureteronephrosis. Malfunction of suprapubic catheter. Suprapubic tube was exchanged by urology and she is asked to follow-up with them in office in a month. Blood culture eventually grew ESBL Proteus mirabilis with intermediate sensitivity to ertapenem. She was continued on meropenem while in the hospital and so far has done well. She was seen by infectious disease in consultation, and recommendation is to complete additional course of therapy postdischarge. She will complete 14 days meropenem every 8 hours. Additionally it is recommended to continue chronic suppression with fosfomycin. Follow-up with ID in 1 month. Physical Exam Const: COMMON NORMALS: patient oriented x3 and alert ORIENTATION/CONSCIOUSNESS: Yes awake OTHER: Call light on return. HENMT: COMMON NORMALS: oropharynx normal Neck/C-Spine: COMMON NORMALS: no JVD Resp: COMMON NORMALS: normal respiratory effort and clear to auscultation bilaterally AUSCULTATION: clear to auscultation bilaterally Cardio: COMMON NORMALS: no JVD, regular rhythm, S1 normal heart sound present, S2 normal heart sound present and No murmurs present (Cardio) RHYTHM: regular rhythm HEART SOUNDS: S1 normal heart sound present and S2 normal heart sound present GI: COMMON NORMALS: Normal to inspection, nondistended, normoactive bowel sounds present, Soft to palpation and non-tender PALPATION: Yes Soft to palpation Extremity: COMMON NORMALS: no joint enlargement and no pedal edema OTHER: LE elevated in heel protectors Neuro: COMMON NORMALS: patient oriented x3; negative for moves all extremities (Quadriplegia) SENSORIUM/ORIENTATION: Yes alert Discharge Data Studies Completed and Pending Completed Studies During Hospitalization Category Date Time Status CT chest abdomen pelvis [[place] [id number] Cat Scan 10/22/22 13:45 Completed ] Routine XR chest 1V portable [id number] Stat Exams 10/21/22 07:47 Completed Pending at discharge Category Date Time Status Blood Culture AM LABS Lab 10/23/22 04:25 Results Sputum Culture and Gram Stain Stat Lab 10/21/22 10:33 Uncollected Radiology Impressions Chest X-Ray 10/21/22 07:47 Impression: Bilateral patchy pulmonary opacities consistent with diffuse viral pneumonia and/or atelectasis. Chest/Abdomen/Pelvis CT 10/22/22 13:45 IMPRESSION: 1. Moderate LEFT hydronephrosis with pelvocaliectasis and ureterectasis. This is new from June 03, 2022. LEFT ureter is dilated to the UVJ. Tip of the suprapubic catheter extends into or adjacent to the LEFT UVJ and may contribute to obstruction. 2. Suprapubic catheter with tip at the LEFT UVJ. Diffuse bladder wall thickening with air-fluid level.Correlation for urinary tract infection. 3. Diffuse moderate pancolonic constipation. 4. Small bilateral pleural effusions with compressive atelectasis in the lung bases. Slight atelectasis in the lingula and RIGHT middle lobe. 5. Prior postoperative changes along the greater curvature of the stomach. 6. Diffuse moderate pancolonic constipation. Notified Damri Ernst MD at 10/22/2022 4:48 PM. Laboratory Results WBC 6.7 10^3/uL (4.0-10.0) 10/26/22 05:30 Corrected WBC Cancelled 10/21/22 08:55 RBC 4.30 10^6/uL (4.1-5.3) 10/26/22 05:30 Hgb 11.4 g/dL (11.5-15.3) L 10/26/22 05:30 Hct 37.4 % (37.0-47.0) 10/26/22 05:30 MCV 87.0 fl (81-99) 10/26/22 05:30 MCH 26.5 pg (28.0-34.0) L 10/26/22 05:30 MCHC 30.5 g/dL (30.0-36.0) 10/26/22 05:30 RDW 15.5 % (12.1-15.1) H 10/26/22 05:30 Plt Count 238 10^3/cmm (130-400) 10/26/22 05:30 MPV 9.9 fL (7.4-10.4) 10/26/22 05:30 Gran % Cancelled 10/21/22 08:55 Neut % (Auto) 57.0 % 10/26/22 05:30 Lymph % (Auto) 26.6 % 10/26/22 05:30 Morrison % (Auto) 8.0 % 10/26/22 05:30 Eos % (Auto) 7.1 % 10/26/22 05:30 Baso % (Auto) 0.5 % 10/26/22 05:30 Neut # (Auto) 3.80 10^3/uL (1.8-7.7) 10/26/22 05:30 Lymph # (Auto) 1.8 10^3/uL (0.8-4.8) 10/26/22 05:30 Morrison # (Auto) 0.5 10^3/uL (0.2-0.9) 10/26/22 05:30 Eos # (Auto) 0.5 10^3/uL (0.0-0.8) 10/26/22 05:30 Baso # (Auto) 0.0 10^3/uL (0.0-0.1) 10/26/22 05:30 Absolute Gran (auto) Cancelled 10/21/22 08:55 Nucleated RBC % (auto) 0 % 10/26/22 05:30 Nucleated RBCs # 0.0 /100WBC 10/26/22 05:30 ESR 36 mm/hr (0-15) H 10/22/22 04:12 D-Dimer 1.88 ug/mIFEU (0-0.59) H 10/22/22 04:12 Specimen Type Arterial 10/22/22 05:23 Sample Site Radial, right 10/22/22 05:23 ABG pH 7.35 (7.35-7.45) 10/22/22 05:23 ABG pCO2 49.5 mmHg (35-45) H 10/22/22 05:23 ABG pO2 62.3 mmHg (80.0-100.0) L 10/22/22 05:23 ABG HCO3 27.4 mmol/L (22-26) H 10/22/22 05:23 ABG Base Excess 1.3 mmol/L (-2.0-2.0) 10/22/22 05:23 Sabino Test Pos 10/22/22 05:23 Hematocrit 30.0 % (37-47) L 10/22/22 05:23 O2 Delivery Device Nc 10/22/22 05:23 O2 Liters/Min 2.0 % 10/22/22 05:23 Programming Manager ID [email or web address] 10/22/22 05:23 Sodium 138 mmol/L (136-145) 10/26/22 05:30 Potassium 4.1 mmol/L (3.5-5.1) 10/26/22 05:30 Chloride 101 mmol/L (98-107) 10/26/22 05:30 Carbon Dioxide 25 mmol/L (22-29) 10/26/22 05:30 Anion Gap 16.1 (5-19) 10/26/22 05:30 BUN 21 mg/dL (6-20) H 10/26/22 05:30 Creatinine 0.8 mg/dL (0.5-0.9) 10/26/22 05:30 GFR Calculation 76.9 mL/min (90-130) L 10/26/22 05:30 Glucose 110 mg/dL (65-115) 10/26/22 05:30 POC Glucose 198 mg/dL (70-110) H 10/27/22 11:18 Estimat Average Glucose 137 10/23/22 04:20 Hemoglobin A1c 6.4 % (4.0-6.0) H 10/23/22 04:20 Calculated Osmolality 290 mOsm/kg (285-295) 10/26/22 05:30 Lactic Acid 0.6 mmol/L (0.5-2.2) 10/22/22 04:12 Lactic Acid (Sepsis) 3.7 mmol/L (0.5-2.2) H 10/21/22 12:18 Calcium 9.8 mg/dL (8.5-10.5) 10/26/22 05:30 Phosphorus 3.8 mg/dL (2.5-4.5) 10/22/22 04:12 Magnesium 2.5 mg/dL (1.7-2.3) H 10/22/22 04:12 Iron 36 ug/dL (37-145) L 10/22/22 04:12 TIBC 226 mcg/dl 10/22/22 04:12 % Saturation 15.9 % (20-50) L 10/22/22 04:12 Unsat Iron Binding 190 ug/dL (112-347) 10/22/22 04:12 Total Bilirubin 0.2 mg/dL (0.15-1.2) 10/26/22 05:30 AST 16 U/L (0-32) 10/26/22 05:30 ALT 14 U/L (0-33) 10/26/22 05:30 Alkaline Phosphatase 63 U/L (35-105) 10/26/22 05:30 Creatine Kinase 24 U/L (26-192) L 10/21/22 08:55 C-Reactive Protein 118.8 mg/L (0.0-4.9) H 10/22/22 04:12 Total Protein 7.2 g/dL (6.6-8.7) 10/26/22 05:30 Albumin 3.8 g/dL (3.5-5.2) 10/26/22 05:30 Globulin 3.4 g/dL (1.3-4.6) 10/26/22 05:30 Triglycerides 183 mg/dL (0-150) H 10/23/22 04:20 Cholesterol 141 mg/dL (0-200) 10/23/22 04:20 LDL Cholesterol, Calc 68 mg/dL (50-129) 10/23/22 04:20 Total VLDL Cholesterol 37 mg/dL (0-30) H 10/23/22 04:20 HDL Cholesterol 36 mg/dL (60-100) L 10/23/22 04:20 Cholesterol/HDL Ratio 3.92 mg/dL (0.0-4.40) 10/23/22 04:20 Lipase 17 U/L (13-60) 10/21/22 08:55 Vitamin B12 241 pg/mL (232-1245) 10/22/22 04:12 Folate > 20.0 ng/mL (4.8-37.3) 10/21/22 09:20 Procalcitonin 2.24 ng/mL (0-0.5) H 10/22/22 04:12 TSH 0.78 uIU/mL (0.27-4.20) 10/22/22 04:12 Urine Color Yellow (Yellow) 10/21/22 11:45 Urine Appearance Hazy (CLEAR) A 10/21/22 11:45 Urine pH 8 (5-7) H 10/21/22 11:45 Ur Specific [place] 1.010 (1.005-1.030) 10/21/22 11:45 Urine Protein Neg (Negative) 10/21/22 11:45 Urine Glucose (UA) Norm (Normal) 10/21/22 11:45 Urine Ketones Negative (Negative) 10/21/22 11:45 Urine Blood 2+ (Negative) H 10/21/22 11:45 Urine Nitrate Negative (Negative) 10/21/22 11:45 Urine Bilirubin Neg (Negative) 10/21/22 11:45 Urine Urobilinogen Norm mg/dL (Negative) 10/21/22 11:45 Ur Leukocyte Esterase 2+ (Negative) H 10/21/22 11:45 Urine RBC 0-4 /hpf (0-2) H 10/21/22 11:45 Urine WBC 5-10 /hpf (0-5) H 10/21/22 11:45 Ur Squamous Epith Cells 5-10 /hpf (0-5) H 10/21/22 11:45 Ur Renal Epithelial Cell 0-4 /hpf 10/21/22 11:45 Calcium Oxalate Crystal 0-4 /hpf H 10/21/22 11:45 Triple Phos Crystals 0-4 /hpf H 10/21/22 11:45 Amorphous Sediment Not Reportable 10/21/22 11:45 Urine Bacteria 4+ /hpf (NONE) H 10/21/22 11:45 Serum Ketones Negative (Negative) 10/21/22 09:20 Coronavirus 229E (PCR) Not detected (NOT DETECT) 10/21/22 11:50 Influenza Type A Ag negative (Negative) 10/21/22 08:35 Influenza Type B Ag negative (Negative) 10/21/22 08:35 SARS-CoV-2 (PCR) Not detected (NOT DETECT) 10/21/22 11:50 SARS-CoV-2 Ag (Rapid) negative (Negative) 10/27/22 10:32 Vitals Last Vital Signs Temp 97.9 F 10/27/22 12:00 Pulse 92 01/02/23 12:00 Resp 18 10/27/22 12:00 BP 111/79 10/27/22 12:00 Pulse Ox 93 10/27/22 12:00 O2 Del Method 10/27/22 12:00 O2 Flow Rate 0.5 10/25/22 10:07 FiO2 3 10/22/22 20:55 Discharge Plan Discharge Patient Disposition: Xfer SNF Condition: Stable Prescriptions: New fosfomycin tromethamine 3 gram packet 3 g PO Q3D 30 Days Qty: 10 5RF meropenem 1 gram recon soln 2 g IV Q8H 14 Days Qty: 42 0RF Continued Linzess 145 mcg capsule 145 mcg PO DAILY ascorbic acid (vitamin C) [Vitamin C] 1,000 mg Tablet 1,000 mg PO BID@08,20 pantoprazole 40 mg Tablet,Delayed Release (Dr/Ec) 40 mg PO DAILY sennosides-docusate sodium [Senna Plus] 8.6-50 mg Tablet 2 tab PO BID@08,20 pravastatin 40 mg Tablet 40 mg PO BEDTIME naloxone 0.4 mg/mL Solution 0.4 mg IM Q2M PRN (Reason: overdose) acetaminophen 500 mg Tablet 500 mg PO Q6H PRN (Reason: Pain) simethicone 80 mg Tablet,Chewable 80 mg PO TIDWM fentanyl 50 mcg/hr Patch 72 Hour 1 patch TRANSDERMAL Q72H Qty: 5 0RF morphine concentrate 100 mg/5 mL (20 mg/mL) solution 5 mg PO Q4H PRN (Reason: Pain) Qty: 30 0RF alprazolam [Xanax] 0.25 mg Tablet 0.25 mg PO TID PRN (Reason: Anxiety) Qty: 10 0RF ondansetron HCl 4 mg Tablet 4 mg PO Q6H PRN (Reason: Nausea) Relistor 12 mg/0.6 mL Syringe 0.6 ml SUBCUT Q3D PRN (Reason: Constipation) gabapentin 600 mg tablet 1,200 mg PO TID docusate sodium [Colace] 100 mg Capsule 100 mg PO BID insulin lispro [Humalog KwikPen Insulin] 100 unit/mL Insulin Pen See Rx Instructions .ROUTE .COMPLEX Rx Instructions: SLIDING SCALE- BLOOD SUGAR 125-150 GIVE 2 UNITS, 151-200 GIVE 4 UNITS, 201-250 GIVE 6 UNITS, 251-300 GIVE 8 UNITS, 301-350 GIVE 10 UNITS, 351-400 GIVE 12 UNITS pregabalin [Lyrica] 50 mg Capsule 50 mg PO BID calcium carbonate [Tums Ultra] 400 mg calcium (1,000 mg) Tablet,Chewable 400 mg PO DAILY PRN (Reason: Heartburn) magnesium hydroxide [Milk of Magnesia] 400 mg/5 mL suspension 5 ml PO DAILY Qty: 355 0RF potassium chloride 20 mEq Tablet Extended Release 20 meq PO DAILY metformin 1,000 mg Tablet 1,000 mg PO BID lidocaine 5 % Adhesive Patch,Medicated 1 patch TOPICAL Q12H Rx Instructions: leave on most painful area for up to 12 hrs sertraline 50 mg Tablet 50 mg PO DAILY cyclobenzaprine 5 mg Tablet 5 mg PO TID diclofenac sodium 1 % Gel 2 g TOPICAL BID Rx Instructions: apply to single elbow, wrist or hand; for hand includes palm/fingers/back of hand lidocaine 4 % Cream 1 applic TOPICAL BID PRN (Reason: Pain) methenamine hippurate 1 gram Tablet 1 g PO BID oxybutynin chloride 5 mg Tablet 5 mg PO TID Januvia 25 mg Tablet 25 mg PO DAILY Rx Instructions: Give with 50 mg to equal 75 mg daily Januvia 50 mg Tablet 50 mg PO DAILY Rx Instructions: Give with 25 mg to equal 75 mg daily metoclopramide HCl 10 mg tablet 10 mg PO Q6H PRN (Reason: nausea and vomiting) Discharge Orders: Discharge Order (Routine); Ordered 10/27/22 Ordered By: Simon Huitron Referrals: Infectious Disease Group [facility] [Provider Group] - 1 month Shakira Cruz MD [Primary Care Provider] - 4-7 days Hilton Culp MD [Physician] - 1 month Patient Instructions: Opioid Safety Activity Restrictions/Additional Instructions: Complete antibiotic infusions with meropenem for ESBL UTI. Subsequently as per infectious disease recommendation continue chronic suppression with fosfomycin. Follow-up with infectious disease and urology in 1 month. No additional coverage for streptococcal pharyngitis needed in case there was an infection, will be covered with meropenem as well. Discharge Attestations Time Spent in Discharge Care*: greater than 30 min Status at Discharge: Cognitive status at discharge: cognitively intact, Behavioral status at discharge: cooperative, Quality Metrics Clinical Quality Measures [ No reported AMI, CVA or VTE this stay] Coding Level of Care Code Acute Chg FW DC note Diagnoses Gram-negative bacteremia R78.81 Neurogenic bladder N31.9
[2022-10-27 15:01] VITALS: BP 111/79; PULSE 92; RESP 18; TEMP 36.6; O2SAT 93
--- NOTE | 2022-10-27 15:03 | PC.NURSE ---
Report called to [facility] to Kori PONCE.
== END 2022-10-27 15:03 | disposition skilled nursing facility (03) | DRG 698 ==
LOC: ER 13:36 → MEDSURG 13:53
PROVIDERS: Student in an Organized Health Care Education/Training Program; Admitting Provider Hospitalist; Emergency Provider Family Medicine; PCP Family Medicine; Visit Provider Internal Medicine
DX: T83.510A Infection and inflammatory reaction due to cystostomy catheter, initial encounter (principal); G82.50 Quadriplegia, unspecified; L89.153 Pressure ulcer of sacral region, stage 3; J18.9 Pneumonia, unspecified organism; N13.6 Pyonephrosis; Z16.12 Extended spectrum beta lactamase (ESBL) resistance; Y73.1 Therapeutic (nonsurgical) and rehabilitative gastroenterology and urology devices associated with adverse incidents; N31.8 Other neuromuscular dysfunction of bladder; Z87.440 Personal history of urinary (tract) infections; B96.4 Proteus (mirabilis) (morganii) as the cause of diseases classified elsewhere; Z79.891 Long term (current) use of opiate analgesic; Z79.4 Long term (current) use of insulin; Z79.84 Long term (current) use of oral hypoglycemic drugs; K59.03 Drug induced constipation; T40.605A Adverse effect of unspecified narcotics, initial encounter; R33.9 Retention of urine, unspecified; Z79.2 Long term (current) use of antibiotics; E78.5 Hyperlipidemia, unspecified; K21.9 Gastro-esophageal reflux disease without esophagitis; F41.8 Other specified anxiety disorders; Z86.16 Personal history of COVID-19; E11.22 Type 2 diabetes mellitus with diabetic chronic kidney disease; I12.9 Hypertensive chronic kidney disease with stage 1 through stage 4 chronic kidney disease, or unspecified chronic kidney disease; E11.51 Type 2 diabetes mellitus with diabetic peripheral angiopathy without gangrene; E11.40 Type 2 diabetes mellitus with diabetic neuropathy, unspecified; N18.31 Chronic kidney disease, stage 3a; T83.090A Other mechanical complication of cystostomy catheter, initial encounter
CPT/HCPCS: 36415; 36416; 36569; 36600; 71045; 71250; 74176; 80048; 80053; 80061; 81001; 82009; 82550; 82607; 82746; 82803; 82962; 83036; 83540; 83550; 83605; 83690; 83735; 84100; 84145; 84443; 85025; 85378; 85651; 86140; 87040; 87077; 87086; 87150; 87186; 87205; 87426; 87635; 87804; 93005; 94640; 96365; 96367; 96372; 96375; 97110; 97165; 99285; C1751; J1650; J1815; J1885; J1956; J2185; J2270; J2405; J2543; J3370; J3480; J7030; J7050; J7613; J7644

== ENCOUNTER → 2022-10-30 13:09 | Outpatient (BNVA) | payer MEDICARE, SELFPAY | PROVIDERS: PCP Family Medicine; Visit Provider Thoracic Surgery (Cardiothoracic Vascular Surgery) | DX: L98.419 Non-pressure chronic ulcer of buttock with unspecified severity (principal) ==

== ENCOUNTER → 2022-11-06 14:55 | Outpatient (BNVA) | payer MEDICARE, SELFPAY | PROVIDERS: PCP Family Medicine; Visit Provider Thoracic Surgery (Cardiothoracic Vascular Surgery) | DX: L98.419 Non-pressure chronic ulcer of buttock with unspecified severity (principal) ==

== ENCOUNTER 2022-11-11 16:26 | Emergency (ER) | payer MEDICARE, SELFPAY ==
[2022-11-11 16:27] VITALS: BP 106/79; PULSE 95; RESP 15; O2SAT 92
--- NOTE | 2022-11-11 16:32 | XRR_ITS ---
PROCEDURE INFORMATION: Exam: XR Abdomen Exam date and time: 11/11/2022 4:58 PM Age: 47 years old Clinical indication: Constipation; Prior surgery; Surgery type: Bladder, spine, hyst TECHNIQUE: Imaging protocol: Radiologic exam of the abdomen. Views: Frontal supine view of the abdomen. 1 View. COMPARISON: [place] [id number] 10/22/2022 3:37 PM FINDINGS: Gastrointestinal tract: Severe colonic stool burden. No bowel dilation. Bones/joints: Unremarkable. XR/XR KUB portable [id number] IMPRESSION: Severe colonic stool burden.
--- NOTE | 2022-11-11 17:15 | ED_ITS ---
HPI - Abdominal Pain General: Chief Complaint: Abdominal Pain Stated Complaint: CONSTIPATION Time Seen by Provider: 11/11/22 16:29 Source: patient Mode of arrival: EMS History of Present Illness: 47-year-old female who presents to the emergency room with complaints of abdominal pain and constipation. This is been ongoing problem for her recurrently. Most recently she has been extremely constipated since October 31. She takes daily morphine as well as having a fentanyl patch. She was given Ultram troxidone yesterday and today with only minimal results. She also had enemas as well as various other medications. Unfortunately none were significant laxatives. MD elicited complaint: abdominal pain Pertinent past history: constipation Onset (ago): week(s) Pain Consistency: constant Location: Diffuse Severity: moderate Quality: cramping and fullness Exacerbating factors: nothing Relieving factors: nothing Associated Symptoms: Reports bloating, change in bowel habits, constipation and GI cramping; Denies anorexia, belching, change in stool character, chills, coffee ground emesis, diarrhea, dyspepsia, dysuria, excessive flatus, fever(s), heartburn, hematochezia, hematuria, hematemesis, fecal incontinence, loose stools, melena, nausea, poor appetite, syncope and vomiting Review of Systems Const: Denies: fever(s) or chills ENMT: Denies: throat pain, ear or mastoid pain, nasal discharge or nasal congestion Card: Denies: syncope Resp: Denies: dyspnea, productive cough or non-productive cough GI: Reports: abdominal pain, constipation, bloating, GI cramping and change in bowel habits; Denies: nausea, vomiting, hematemesis, coffee ground emesis, heartburn, diarrhea, belching, excessive flatus, fecal incontinence, change in stool character, hematochezia or melena : Denies: dysuria, urinary frequency, urinary urgency or hematuria Skin/Breast: Denies: rash or pruritus PFSH ED PFSH: Medical History Anxiety Chronic kidney disease Colostomy in place COVID-19 (~2019) Depression Diabetes mellitus, type II GERD (gastroesophageal reflux disease) History of ESBL E. 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 Neurogenic bladder Neuropathic pain PVD (peripheral vascular disease) Quadriplegia secondary to trauma Recurrent sepsis due to urinary tract infection Sacral decubitus ulcer Sacral decubitus ulcer, stage IV Suprapubic catheter Therapeutic opioid induced constipation Urinary retention Surgical History H/O bladder repair surgery H/O cystoscopy H/O partial cystectomy H/O Spinal surgery History of hysterectomy History of partial gastrectomy (12/2019) due to perforated viscous from gastric ulcer Family History Other CAD (coronary artery disease) Diabetes Hypertension Social History Smoking and tobacco status: never smoked Alcohol intake: never Housing: Detention Marital status: Current occupational status: disabled Physical Exam Const: GENERAL APPEARANCE: cooperative and comfortable ORIENTATION/CONSCIOUSNESS: Yes awake, Yes oriented to person, Yes oriented to place and Yes oriented to time HENMT: COMMON NORMALS: normocephalic, atraumatic and hearing grossly normal bilaterally HEAD & SCALP: normocephalic and atraumatic Resp: COMMON NORMALS: normal respiratory effort, No retractions, No use of accessory muscles and clear to auscultation bilaterally AUSCULTATION: clear to auscultation bilaterally Cardio: COMMON NORMALS: regular rate, regular rhythm and No murmurs present (Cardio) RATE: regular rate RHYTHM: regular rhythm GI: COMMON NORMALS: No hepatosplenomegaly present AUSCULTATION: Yes normoac tive bowel sounds PALPATION: Yes Tenderness to palpation present (GI) (Moderate diffuse), No Guarding due to palpation present (GI) and Yes No hepatosplenomegaly present Neuro: SENSORIUM/ORIENTATION: Yes oriented to person, Yes oriented to place and Yes oriented to time Skin: COMMON NORMALS: no rashes or lesions noted GENERAL SKIN EXAM: no rashes or lesions noted Course Vital Signs: Vital signs: Vital Signs Pulse Rate 90 11/11/22 17:34 Respiratory Rate 14 11/11/22 17:34 Blood Pressure 106/79 11/11/22 16:27 Pulse Oximetry 92 11/11/22 17:34 Oxygen Delivery Me thod 11/11/22 17:34 MDM - Abdominal Pain Medical Decision Making Seen for constipation of a longstanding problem of the patient. Imaging shows large amount of stool burden will discharge home abdomen is lactulose. Medical Records I reviewed the patient's medical records. Lab Data I reviewed the patient's lab results. Labs/Radiology: Radiology Impressions KUB X-Ray 11/11/22 16:32 IMPRESSION: Severe colonic stool burden. Discharge Plan Discharge Patient Disposition: Home Clinical Impression: Constipation Condition: Stable Prescriptions: No Action Linzess 145 mcg capsule 145 mcg PO DAILY ascorbic acid (vitamin C) [Vitamin C] 1,000 mg Tablet 1,000 mg PO BID@08,20 pantoprazole 40 mg Tablet,Delayed Release (Dr/Ec) 40 mg PO DAILY sennosides-docusate sodium [Senna Plus] 8.6-50 mg Tablet 2 tab PO BID@08,20 pravastatin 40 mg Tablet 40 mg PO BEDTIME naloxone 0.4 mg/mL Solution 0.4 mg IM Q2M PRN (Reason: overdose) acetaminophen 500 mg Tablet 500 mg PO Q6H PRN (Reason: Pain) simethicone 80 mg Tablet,Chewable 80 mg PO TIDWM fentanyl 50 mcg/hr Patch 72 Hour 1 patch TRANSDERMAL Q72H Qty: 5 0RF morphine concentrate 100 mg/5 mL (20 mg/mL) solution 5 mg PO Q4H PRN (Reason: Pain) Qty: 30 0RF alprazolam [Xanax] 0.25 mg Tablet 0.25 mg PO TID PRN (Reason: Anxiety) Qty: 10 0RF ondansetron HCl 4 mg Tablet 4 mg PO Q6H PRN (Reason: Nausea) Relistor 12 mg/0.6 mL Syringe 0.6 ml SUBCUT Q3D PRN (Reason: Constipation) gabapentin 600 mg tablet 1,200 mg PO TID docusate sodium [Colace] 100 mg Capsule 100 mg PO BID insulin lispro [Humalog KwikPen Insulin] 100 unit/mL Insulin Pen See Rx Instructions .ROUTE .COMPLEX Rx Instructions: SLIDING SCALE- BLOOD SUGAR 125-150 GIVE 2 UNITS, 151-200 GIVE 4 UNITS, 201- 250 GIVE 6 UNITS, 251-300 GIVE 8 UNITS, 301-350 GIVE 10 UNITS, 351-400 GIVE 12 UNITS pregabalin [Lyrica] 50 mg Capsule 50 mg PO BID calcium carbonate [Tums Ultra] 400 mg calcium (1,000 mg) Tablet,Chewable 400 mg PO DAILY PRN (Reason: Heartburn) potassium chloride 20 mEq Tablet Extended Release 20 meq PO DAILY ketoconazole 2 % Cream 1 applic TOPICAL BID polyethylene glycol 3350 17 gram Powder In Packet 17 g PO DAILY Qty: 30 0RF magnesium hydroxide [Milk of Magnesia] 400 mg/5 mL suspension 5 ml PO TID PRN (Reason: constipation) Qty: 355 0RF metoclopramide HCl [Reglan] 5 mg tablet 5 mg PO DAILY PRN (Reason: nausea and vomiting) Qty: 14 0RF oxycodone-acetaminophen 5-325 mg Tablet 1 - 2 tab PO Q6H PRN (Reason: Pain) hydroxyzine HCl 25 mg Tablet 50 mg PO Q6H PRN (Reason: Anxiety) metformin 1,000 mg Tablet 1,000 mg PO BID lidocaine 5 % Adhesive Patch,Medicated 1 patch TOPICAL Q12H Rx Instructions: leave on most painful area for up to 12 hrs sertraline 50 mg Tablet 50 mg PO DAILY cyclobenzaprine 5 mg Tablet 5 mg PO TID PRN (Reason: Muscle Pain) diclofenac sodium 1 % Gel 2 g TOPICAL BID PRN (Reason: Pain) Rx Instructions: apply to single elbow, wrist or hand; for hand includes palm/fingers/back of hand lidocaine 4 % Cream 1 applic TOPICAL BID PRN (Reason: Pain) methenamine hippurate 1 gram Tablet 1 g PO BID oxybutynin chloride 5 mg Tablet 5 mg PO TID Januvia 25 mg Tablet 25 mg PO DAILY Rx Instructions: Give with 50 mg to equal 75 mg daily Januvia 50 mg Tablet 50 mg PO DAILY Rx Instructions: Give with 25 mg to equal 75 mg daily fosfomycin tromethamine 3 gram packet 3 g PO Q3D 30 Days Qty: 10 5RF bisacodyl 10 mg Suppository 10 mg [place] DAILY PRN (Reason: Constipation) Discharge Orders: Discharge ED (Routine); Ordered 11/11/22 Ordered By: Devin Witt Referrals: Shakira Cruz MD [Primary Care Provider] - Discharge Diet: Usual diet Discharge Activity: Resume usual activity Patient Instructions: Opioid Safety, Pain Management Activity Restrictions/Additional Instructions: You are seen today for constipation recommend you use lactulose every 2 hours until desired effect is achieved. To prevent future episodes of constipation you should be on MiraLAX recommend you start at 1 capful twice a day Coding Level of Care Code ED Butadiene Converter Utility Operator for Chg Fwd Exam Detailed
[2022-11-11 17:34] VITALS: PULSE 90; RESP 14; O2SAT 92
[2022-11-11] MEDS: ketorolac 30 mg/mL INJ 15 MG IVP (18:30)
== END 2022-11-11 19:27 | disposition home or self-care (01) ==
PROVIDERS: Emergency Provider Family Medicine; PCP Family Medicine
DX: K59.00 Constipation, unspecified (principal); Z79.4 Long term (current) use of insulin; E11.22 Type 2 diabetes mellitus with diabetic chronic kidney disease; N18.9 Chronic kidney disease, unspecified; E78.5 Hyperlipidemia, unspecified; G82.50 Quadriplegia, unspecified
CPT/HCPCS: 74018; 99285; J1885

== ENCOUNTER 2022-11-13 09:25 | Inpatient (IN) | payer MEDICARE, SELFPAY ==
[2022-11-13 09:29] VITALS: BP 157/98; PULSE 88; RESP 18; TEMP 36.8; O2SAT 92; BMI 24.9
--- NOTE | 2022-11-13 10:09 | W.ED.ABDPA2 ---
HPI - Abdominal Pain General: Chief Complaint: Abdominal Pain Stated Complaint: CONSTIPATION Time Seen by Provider: 11/13/22 09:29 Source: patient Mode of arrival: EMS History of Present Illness: 47-year-old female presents emergency room from a senior care. She was seen 2 days of constipation started on lactulose after a couple of enemas had very little output from the enemas. Evidently she has had no output from the lactulose either. Comes in today with bloating dry heaves and severe nausea. She is not passed anything else. She is quadriplegic with a large amount of narcotics as well. She has had recurrent episodes of constipation in the past. MD elicited complaint: abdominal pain Pertinent past history: constipation Onset (ago): week(s) Pain Consistency: constant Location: Diffuse Severity: severe Quality: cramping Radiation: none Exacerbating factors: nothing Relieving factors: nothing Associated Symptoms: Reports bloating, change in bowel habits, constipation, GI cramping, nausea, poor appetite and vomiting; Denies anorexia, belching, change in stool character, chills, coffee ground emesis, diarrhea, dyspepsia, dysuria, excessive flatus, fever(s), heartburn, hematochezia, hematuria, hematemesis, fecal incontinence, loose stools, melena and syncope Review of Systems Const: Denies: fever(s) or chills ENMT: Denies: throat pain, ear or mastoid pain, nasal discharge or nasal congestion Card: Denies: syncope Resp: Denies: dyspnea, productive cough or non-productive cough GI: Reports: abdominal pain, nausea, vomiting, constipation, bloating, GI cramping and change in bowel habits; Denies: hematemesis, coffee ground emesis, heartburn, diarrhea, belching, excessive flatus, fecal incontinence, change in stool character, hematochezia or melena : Denies: dysuria or hematuria Skin/Breast: Denies: rash or pruritus PFSH ED PFSH: Medical History Anxiety Chronic kidney disease Colostomy in place COVID-19 (~2020) Depression Diabetes mellitus, type II GERD (gastroesophageal reflux disease) History of ESBL E. 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 Neurogenic bladder Neuropathic pain PVD (peripheral vascular disease) Quadriplegia secondary to trauma Recurrent sepsis due to urinary tract infection Sacral decubitus ulcer Sacral decubitus ulcer, stage IV Suprapubic catheter Therapeutic opioid induced constipation Urinary retention Surgical History H/O bladder repair surgery H/O cystoscopy H/O partial cystectomy H/O Spinal surgery History of hysterectomy History of partial gastrectomy (12/2019) due to perforated viscous from gastric ulcer Family History Other CAD (coronary artery disease) Diabetes Hypertension Social History Smoking and tobacco status: never smoked Alcohol intake: never Housing: Assisted Marital status: Current occupational status: disabled Physical Exam Const: GENERAL APPEARANCE: cooperative ORIENTATION/CONSCIOUSNESS: Yes awake, Yes oriented to person, Yes oriented to place and Yes oriented to time HENMT: COMMON NORMALS: normocephalic and atraumatic HEAD & SCALP: normocephalic and atraumatic Resp: COMMON NORMALS: normal respiratory effort, No retractions, No use of accessory muscles and clear to auscultation bilaterally AUSCULTATION: clear to auscultation bilaterally Cardio: COMMON NORMALS: regular rate, regular rhythm and No murmurs present (Cardio) RATE: regular rate RHYTHM: regular rhythm GI: COMMON NORMALS: No hepatosplenomegaly present AUSCULTATION: Yes Absent bowel sounds PALPATION: Yes Tenderness to palpation present (GI), No Guarding due to palpation present (GI) and Yes No hepatosplenomegaly present PERCUSSION: tympanic to percussion Extremity: COMMON NORMALS: normal to inspection, capillary refill normal, no clubbing, cyanosis or edema, no calf tenderness and no pedal edema Neuro: SENSORIUM/ORIENTATION: Yes oriented to person, Yes oriented to place and Yes oriented to time Skin: COMMON NORMALS: no rashes or lesions noted GENERAL SKIN EXAM: no rashes or lesions noted Course Vital Signs: Vital signs: Vital Signs Temperature 97.8 F 11/18/22 18:33 Pulse Rate 97 11/18/22 18:33 Respiratory Rate 15 11/18/22 18:33 Blood Pressure 129/89 11/18/22 18:33 Pulse Oximetry 96 11/18/22 18:33 Oxygen Delivery Me thod 11/18/22 15:35 Oxygen Flow Rate 2 11/18/22 08:00 MDM - Abdominal Pain Medical Decision Making Failed outpatient attempts to relieve obstipation. Discussed with the hospitalist will admit. Of consulted surgery as well. Medical Records I reviewed the patient's medical records. Lab Data I reviewed the patient's lab results. 11/13/22 09:59 Labs/Radiology: Radiology Impressions Abdomen/Pelvis CT 11/13/22 11:04 IMPRESSION: 1. Moderate to severe RIGHT hydroureteronephrosis. There is a 2 mm calcification at the UV junction. 2. Severe bilateral constipation and obstipation throughout the entire colon. 3. RIGHT adnexal cystic mass is been present on prior studies. Differential includes ovarian cyst, paraovarian cyst, mucocele or gastric diverticulum. 4. Normal appendix. KUB X-Ray 11/18/22 08:41 IMPRESSION: 1. Marked dilatation of the colon. The largest loop involves the right colon which measures 11.2 cm at greatest diameter. Large amount of stool visualized in the rectosigmoid region as well as the right colon. 2. No pneumoperitoneum. Postoperative changes. Laboratory Results WBC 5.7 10^3/uL (4.0-10.0) 11/13/22 09:59 RBC 4.73 10^6/uL (4.1-5.3) 11/13/22 09:59 Hgb 12.6 g/dL (11.5-15.3) 11/13/22 09:59 Hct 40.8 % (37.0-47.0) 11/13/22 09:59 MCV 86.3 fl (81-99) 11/13/22 09:59 MCH 26.6 pg (28.0-34.0) L 11/13/22 09:59 MCHC 30.9 g/dL (30.0-36.0) 11/13/22 09:59 RDW 16.4 % (12.1-15.1) H 11/13/22 09:59 Plt Count 206 10^3/cmm (130-400) 11/13/22 09:59 MPV 10.4 fL (7.4-10.4) 11/13/22 09:59 Neut % (Auto) 69.7 % 11/13/22 09:59 Lymph % (Auto) 19.3 % 11/13/22 09:59 Will % (Auto) 5.8 % 11/13/22 09:59 Eos % (Auto) 4.6 % 11/13/22 09:59 Baso % (Auto) 0.4 % 11/13/22 09:59 Neut # (Auto) 3.98 10^3/uL (1.8-7.7) 11/13/22 09:59 Lymph # (Auto) 1.1 10^3/uL (0.8-4.8) 11/13/22 09:59 Will # (Auto) 0.3 10^3/uL (0.2-0.9) 11/13/22 09:59 Eos # (Auto) 0.3 10^3/uL (0.0-0.8) 11/13/22 09:59 Baso # (Auto) 0.0 10^3/uL (0.0-0.1) 11/13/22 09:59 Nucleated RBC % (auto) 0 % 11/13/22 09:59 Nucleated RBCs # 0.0 /100WBC 11/13/22 09:59 Sodium 137 mmol/L (136-145) 11/13/22 09:59 Potassium 4.3 mmol/L (3.5-5.1) 11/13/22 09:59 Chloride 102 mmol/L (98-107) 11/13/22 09:59 Carbon Dioxide 22 mmol/L (22-29) 11/13/22 09:59 Anion Gap 17.3 (5-19) 11/13/22 09:59 BUN 19 mg/dL (6-20) 11/13/22 09:59 Creatinine 0.6 mg/dL (0.5-0.9) 11/13/22 09:59 GFR Calculation 107.2 mL/min (90-130) 11/13/22 09:59 Glucose 101 mg/dL (65-115) 11/13/22 09:59 Calculated Osmolality 286 mOsm/kg (285-295) 11/13/22 09:59 Lactic Acid 1.9 mmol/L (0.5-2.2) 11/13/22 09:59 Calcium 8.9 mg/dL (8.5-10.5) 11/13/22 09:59 Total Bilirubin 0.2 mg/dL (0.15-1.2) 11/13/22 09:59 AST 18 U/L (0-32) 11/13/22 09:59 ALT 21 U/L (0-33) 11/13/22 09:59 Alkaline Phosphatase 68 U/L (35-105) 11/13/22 09:59 Total Protein 7.2 g/dL (6.6-8.7) 11/13/22 09:59 Albumin 3.8 g/dL (3.5-5.2) 11/13/22 09:59 Globulin 3.4 g/dL (1.3-4.6) 11/13/22 09:59 Discharge Plan Discharge Patient Disposition: Admitted As Inpatient Admit Provider: Jesse Kunz Clinical Impression: Obstipation, Quadriplegia, Therapeutic opioid induced constipation Condition: Stable Discharge Diet: Diabetic Discharge Activity: Resume usual activity and Increase activity as tolerated Coding Level of Care Code 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
[2022-11-13 10:23] LABS: Basophils % 0.4 %; Eosinophils # 0.3 10^3/uL (0.0-0.8); Eosinophils % 4.6 %; Hematocrit 40.8 % (37.0-47.0); Hemoglobin 12.6 g/dL (11.5-15.3); Lymphocytes # 1.1 10^3/uL (0.8-4.8); Lymphocytes % 19.3 %; Mean Corpuscular HGB Conc 30.9 g/dL (30.0-36.0); Mean Corpuscular Hemoglobin 26.6 pg (28.0-34.0); Mean Corpuscular Volume 86.3 fl (81-99); Mean Platelet Volume 10.4 fL (7.4-10.4); Monocytes # 0.3 10^3/uL (0.2-0.9); Monocytes % 5.8 %; Neutrophils # 3.98 10^3/uL (1.8-7.7); Neutrophils % 69.7 %; Nucleated Red Blood Cells % 0 %; Platelet Count 206 10^3/cmm (130-400); Red Blood Count 4.73 10^6/uL (4.1-5.3); Red Cell Distribution Width 16.4 % (12.1-15.1); White Blood Count 5.7 10^3/uL (4.0-10.0)
[2022-11-13 10:24] LABS: Alanine Aminotransferase 21 U/L (0-33); Albumin Level 3.8 g/dL (3.5-5.2); Alkaline Phosphatase 68 U/L (35-105); Anion Gap 17.3 (5-19); Aspartate Amino Transferase 18 U/L (0-32); Blood Urea Nitrogen 19 mg/dL (6-20); Calcium 8.9 mg/dL (8.5-10.5); Carbon Dioxide 22 mmol/L (22-29); Chloride 102 mmol/L (98-107); Globulin 3.4 g/dL (1.3-4.6); Glomerular Filtration Rate 107.2 mL/min (90-130); Glucose 101 mg/dL (65-115); Osmolality Calculated 286 mOsm/kg (285-295); Potassium 4.3 mmol/L (3.5-5.1); Sodium 137 mmol/L (136-145); Total Bilirubin 0.2 mg/dL (0.15-1.2); Total Protein 7.2 g/dL (6.6-8.7)
[2022-11-13] MEDS: ketorolac 30 mg/mL INJ IVP (10:24)
[2022-11-13] MEDS: ondansetron 2 mg/ML SDV 2 mL 4 MG IVP ×2 (10:24→21:19)
[2022-11-13 10:25] LABS: Lactic Sepsis W/Reflex 1.9 mmol/L (0.5-2.2)
--- NOTE | 2022-11-13 11:04 | CT_ITS ---
WS: [id number] CT ABDOMEN AND PELVIS NONCONTRAST HISTORY: Abdominal pain, constipation and severe abdominal pain. TECHNIQUE: Imaging performed through the abdomen and pelvis. Coronal and sagittal reformats are submi tted. All CT scans at [facility] use at least one of these dose optimization techniques: auto mated exposure control; mA and/or kV adjustment per patient size (includes targeted exams where dose is matched to clinical indication); or iterative reconstruction. DLP: 870.93 mGy.cm COMPARISON: 10/22/2022 Lower thorax: Partial atelectasis RIGHT lower lobe. Heart size is normal. Liver: Normal size liver. No mass or bile duct dilatation. Gallbladder: Normal gallbladder. Pancreas: Normal size and attenuation. Normal pancreatic duct. No pancreatitis or mass. Spleen: Normal. Adrenal glands: Normal. No mass. Right kidney: Moderate to severe RIGHT hydronephrosis. The entire ureter is dilated. There is a 2 mm calcification at the UV junction. Left kidney: Mild atrophy of the LEFT kidney. Numerous calcifications in the renal pelvis. Mildly dil ated renal pelvis with a few nonobstructing calcifications. LEFT ureter is not dilated. Aorta: Mild atherosclerosis abdominal aorta with no aneurysm. No free fluid, intraperitoneal air or significant lymphadenopathy. GI tract: Stomach is nondistended. Postsurgical clips associated with the stomach. No small bowel obs truction. There is severe marked fecal retention and obstipation throughout the entire colon. Most li jan Janneth syndrome. Normal appendix. Abdominal wall: Negative. No hernia. Pelvis: Prior hysterectomy. No free fluid. No change in the RIGHT adnexal cystic mass which may be as sociated with the ovary or the GI tract. Similar appearance to 06/03/2022. Soft tissue edema. Osseous structures: Unremarkable. CT/CT abdomen pelvis wo con [id number] IMPRESSION: 1. Moderate to severe RIGHT hydroureteronephrosis. There is a 2 mm calcificati on at the UV junction. 2. Severe bilateral constipation and obstipation throughout the entire colon. 3. RIGHT adnexal cystic mass is been present on prior studies. Differential in cludes ovarian cyst, paraovarian cyst, mucocele or gastric diverticulum. 4. Normal appendix.
[2022-11-13 13:45] VITALS: BP 138/86; PULSE 85; O2SAT 96
[2022-11-13 15:00] VITALS: BP 142/80; PULSE 81; O2SAT 96
[2022-11-13 15:29] VITALS: BMI 29.5
--- NOTE | 2022-11-13 15:48 | PM.HP ---
Providers/Chief Complaint Admitting Physician: Jesse Kunz MD Primary Care Provider: Shakira Cruz MD Chief Complaint: CONSTIPATION History of Present Illness Rosanne Morales is a 47 year old female with past medical history of quadriplegia suprapubic catheter neurogenic bladder, ESBL E. coli UTI, Proteus mirabilis ESBL bacteremia, opioid induced chronic constipation, Moderate to severe RIGHT hydroureteronephrosis. There is a 2 mm calcification at the UV junction, alf resident Came in today with chief complaint of worsening constipation, she was recently discharged from the ER on lactulose after giving enemas, she had no significant improvement in constipation after lactulose, was complaining of generalized abdominal pain, nausea as well as vomiting. CT abdomen and pelvis done showed: Severe constipation. Her labs and vitals have been reviewed. Review of Systems General: Reports: 10 or more systems reviewed and unremarkable except in HPI and below Const: Denies: fever(s), chills, body aches, change in appetite or diaphoresis Card: Denies: palpitations, edema, swelling of feet/ankles, dyspnea on exertion, orthopnea or leg pain with exertion Resp: Denies: dyspnea, productive cough, wheezing or pain on inspiration GI: Reports: abdominal pain, nausea and vomiting; Denies: diarrhea or constipation : Denies: flank pain Musc: Denies: back pain, extremity pain or extremity swelling Medications/Allergies Home Medications Medication Instructions Recorded Confirmed Last Taken Type ascorbic acid (vitamin C) 1,000 mg 1,000 mg PO BID@04/22/20 11/13/22 11/13/22 History tablet (Vitamin C) pantoprazole 40 mg tablet,delayed 40 mg PO DAILY 04/22/20 11/13/22 11/13/22 History release sennosides 8.6 mg-docusate sodium 2 tab PO BID@05/28/20 11/13/22 11/12/22 History 50 mg tablet (Senna Plus) alprazolam 0.25 mg tablet (Xanax) 0.25 mg PO TID PRN Anxiety #10 tabs 11/22/20 11/13/22 11/12/22 Rx fentanyl 50 mcg/hr transdermal 1 patch transdermal Q72H #5 ea 11/22/20 11/13/22 11/08/22 Rx patch morphine concentrate 100 mg/5 mL 5 mg (0.25 mL) PO Q4H PRN Pain #30 11/22/20 11/13/22 11/11/22 Rx (20 mg/mL) oral solution mL acetaminophen 500 mg tablet 500 mg PO Q6H PRN Pain 08/17/21 11/13/22 10/02/22 History naloxone 0.4 mg/mL injection 0.4 mg IM Q2M PRN overdose 08/17/21 11/13/22 Unknown History solution pravastatin 40 mg tablet 40 mg PO BEDTIME 08/17/21 11/13/22 11/12/22 History simethicone 80 mg chewable tablet 80 mg PO TIDWM 08/17/21 11/13/22 11/12/22 History methylnaltrexone 12 mg/0.6 mL 0.6 ml SUBCUT Q3D PRN Constipation 01/24/22 11/13/22 11/11/22 History subcutaneous syringe (Relistor) ondansetron HCl 4 mg tablet 4 mg PO Q6H PRN Nausea 01/24/22 11/13/22 11/07/22 History docusate sodium 100 mg capsule 100 mg PO BID 02/11/22 11/13/22 11/13/22 History (Colace) gabapentin 600 mg tablet 1,200 mg PO TID 02/11/22 11/13/22 11/13/22 History calcium carbonate 400 mg calcium 400 mg PO DAILY PRN Heartburn 03/06/22 11/13/22 06/03/22 History (1,000 mg) chewable tablet (Tums Ultra) insulin lispro 100 unit/mL See Rx Instructions .Route .COMPLEX 03/06/22 11/13/22 11/13/22 History subcutaneous pen (Humalog KwikPen (U-100) Insulin) pregabalin 50 mg capsule (Lyrica) 50 mg PO BID 03/06/22 11/13/22 11/12/22 History magnesium hydroxide 400 mg/5 mL 5 ml PO DAILY #355 mL 03/12/22 11/13/22 11/13/22 Rx oral suspension (Milk of Magnesia) potassium chloride 20 mEq 20 meq PO DAILY 03/28/22 11/13/22 11/12/22 History tablet,extended release lidocaine 5 % topical patch 1 patch topical Q12H 05/12/22 11/13/2223 History metformin 1,000 mg tablet 1,000 mg PO BID 05/12/22 11/13/22 11/12/22 History sertraline 50 mg tablet 50 mg PO DAILY 05/12/22 11/13/22 11/12/22 History linaclotide 145 mcg capsule 145 mcg PO DAILY 07/31/22 11/13/22 11/13/22 History (Linzess) cyclobenzaprine 5 mg tablet 5 mg PO TID PRN Muscle Pain 10/21/22 11/13/22 11/11/22 History diclofenac sodium 1 % topical gel 2 g topical BID 10/21/22 11/13/22 11/12/22 History lidocaine 4 % topical cream 1 applic topical BID PRN Pain 10/21/22 11/13/22 Unknown History methenamine hippurate 1 gram tablet 1 g PO BID 10/21/22 11/13/22 11/12/22 History oxybutynin chloride 5 mg tablet 5 mg PO TID 10/21/22 11/13/22 11/12/22 History sitagliptin phosphate 25 mg tablet 25 mg PO DAILY 10/21/22 11/13/22 11/12/22 History (Januvia) sitagliptin phosphate 50 mg tablet 50 mg PO DAILY 10/21/22 11/13/22 11/12/22 History (Januvia) fosfomycin tromethamine 3 gram 3 g PO Q3D 30 days #10 ea 10/26/22 11/13/22 11/11/22 Rx oral packet bisacodyl 10 mg rectal suppository [address] DAILY PRN Constipation 11/11/22 11/13/22 11/10/22 History nystatin 100,000 unit/mL oral 15 ml PO BID 11/11/22 11/13/22 11/12/22 History suspension sodium phosphates 19 gram-[address] DAILY PRN Constipation 11/11/22 11/13/22 11/11/22 History gram/118 mL enema (Fleet Enema) ketoconazole 2 % topical cream 1 applic topical BID 11/13/22 11/13/22 11/13/22 History Allergies Allergy/AdvReac Type Severity Reaction Status Date / Time No Known Allergies Allergy Verified 11/13/22 09:52 PFSH Acute PFSH: Medical History Anxiety Chronic kidney disease COVID-19 (~2019) Depression Diabetes mellitus, type II GERD (gastroesophageal reflux disease) History of ESBL E. 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 Neurogenic bladder Neuropathic pain PVD (peripheral vascular disease) Quadriplegia secondary to trauma Recurrent sepsis due to urinary tract infection Sacral decubitus ulcer Suprapubic catheter Therapeutic opioid induced constipation Urinary retention Surgical History H/O bladder repair surgery H/O cystoscopy H/O partial cystectomy H/O Spinal surgery History of hysterectomy History of partial gastrectomy (12/2019) due to perforated viscous from gastric ulcer Family History Other CAD (coronary artery disease) Diabetes Hypertension Social History Smoking and tobacco status: never smoked Alcohol intake: never Housing: Half-Way Marital status: Current occupational status: disabled Vitals/I&O/Wt Last Vital Signs Temp 98.3 F 11/13/22 09:29 Pulse 81 11/13/22 15:00 Resp 18 11/13/22 09:29 BP 142/80 11/13/22 15:00 Pulse Ox 96 11/13/22 15:00 O2 Del Method 11/13/22 09:29 Weight last 48 hrs Weight 65.771 kg Physical Exam Const: COMMON NORMALS: patient oriented x3 HENMT: COMMON NORMALS: normocephalic and atraumatic Resp: COMMON NORMALS: normal respiratory effort, No retractions, No use of accessory muscles and clear to auscultation bilaterally EFFORT & INSPECTION: Yes symmetric chest movement AUSCULTATION: clear to auscultation bilaterally Cardio: COMMON NORMALS: regular rate, regular rhythm, S1 normal heart sound present, S2 normal heart sound present, No gallops present (Cardio), No murmurs present (Cardio), No rub (Cardio) and Peripheral pulses 2+ throughout RATE: regular rate RHYTHM: regular rhythm HEART SOUNDS: S1 normal heart sound present and S2 normal heart sound present PERIPHERAL PULSES: Peripheral pulses 2+ throughout GI: COMMON NORMALS: Normal to inspection, nondistended, normoactive bowel sounds present, Soft to palpation, non-tender, No hepatosplenomegaly present and no masses AUSCULTATION: Yes normoactive bowel sounds PALPATION: Yes Soft to palpation and Yes No hepatosplenomegaly present RECTAL EXAM: deferred Extremity: COMMON NORMALS: no clubbing, cyanosis or edema and no pedal edema Neuro: COMMON NORMALS: patient oriented x3 Data 11/13/22 09:59 11/13/22 09:59 A&P Assessment and plan (1) Neurogenic bladder: (2) Quadriplegia: (3) Hydronephrosis: Qualifiers: Hydronephrosis type: other Qualified Code(s): N13.39 - Other hydronephrosis (4) Diabetes mellitus, type II: (5) Suprapubic catheter: (6) Constipation: Plan 47 year old female with past medical history of quadriplegia suprapubic catheter neurogenic bladder, ESBL E. coli UTI, Proteus mirabilis ESBL bacteremia, opioid induced chronic constipation, Moderate to severe RIGHT hydroureteronephrosis. There is a 2 mm calcification at the UV junction, alf resident Came in today with chief complaint of worsening constipation. Assessment: Opioid-induced severe constipation: Patient has failed lactulose, is on linaclotide at home. Will resume , patient will also receive GoLytely. Surgery on board. Right-sided Electra ureter: Urology was consulted, currently they do not plan to do anything. History of neurogenic bladder s/p suprapubic catheter Diabetes: Diabetic diet SSI, monitor fingerstick glucose CODE STATUS: Full code DVT prophylaxis on Lovenox Attestations Medical Necessity Statement*: Patient is in hospital for management of severe constipation. Anticipated length of stay greater than 2 midnight Coding Level of Care Code Acute Code for Chg Fwd Exam Detailed Diagnoses Neurogenic bladder N31.9 Quadriplegia G82.50 Hydronephrosis N13.39 Hydronephrosis type: other Diabetes mellitus, type II E11.9 Suprapubic catheter Z93.59 Constipation K59.00
[2022-11-13 15:52] VITALS: BP 142/80; PULSE 81; RESP 18; O2SAT 96
[2022-11-13 16:00] VITALS: BP 142/83; PULSE 79; RESP 18; TEMP 37.2; O2SAT 95
[2022-11-13] MEDS: sodium chloride 0.9% 1,000 ML 100 ML IV (16:22)
[2022-11-13] MEDS: enoxaparin 40 mg/0.4 mL Syringe SUBCUT (16:30)
[2022-11-13 17:39] LABS: Glucose Point of Care 88 mg/dL (70-110)
[2022-11-13] MEDS: pregabalin 50 mg Capsule PO (17:45)
[2022-11-13] MEDS: docusate sodium 100 mg Capsule PO (17:45)
[2022-11-13] MEDS: simethicone 80 mg Chew PO (17:45)
[2022-11-13] MEDS: peg /e-lyte soln 4,000 mL Btl 1500 ML PO (17:50)
[2022-11-13 20:00] VITALS: BP 142/87; PULSE 92; RESP 21; TEMP 36.8; O2SAT 94
[2022-11-13] MEDS: ALPRAZolam 0.5 mg Tablet 0.25 MG PO (20:48)
[2022-11-13] MEDS: ascorbic acid 500 mg Tablet 1000 MG PO (20:49)
[2022-11-13] MEDS: atorvastatin 40 mg Tablet 20 MG PO (20:49)
[2022-11-13] MEDS: gabapentin 400 mg Capsule 1200 MG PO (20:49)
[2022-11-13] MEDS: oxybutynin 5 mg Tablet PO (20:50)
[2022-11-13 21:28] LABS: Glucose Point of Care 78 mg/dL (70-110)
[2022-11-14] VITALS: BP 134/87; PULSE 80; RESP 18; TEMP 36.4; O2SAT 94
[2022-11-14] MEDS: cyclobenzaprine 10 mg Tablet 5 MG PO ×3 (00:33→22:33)
[2022-11-14] MEDS: sodium chloride 0.9% 1,000 ML 100 ML IV (00:34)
[2022-11-14 04:00] VITALS: BP 128/84; PULSE 81; RESP 18; TEMP 36.6; O2SAT 93
[2022-11-14 05:23] LABS: Basophils % 0.5 %; Eosinophils # 0.2 10^3/uL (0.0-0.8); Eosinophils % 4.7 %; Hematocrit 36.5 % (37.0-47.0); Lymphocytes # 1.5 10^3/uL (0.8-4.8); Lymphocytes % 37.6 %; Mean Corpuscular HGB Conc 30.1 g/dL (30.0-36.0); Mean Corpuscular Hemoglobin 26.4 pg (28.0-34.0); Mean Corpuscular Volume 87.7 fl (81-99); Mean Platelet Volume 10.3 fL (7.4-10.4); Monocytes # 0.4 10^3/uL (0.2-0.9); Monocytes % 8.9 %; Neutrophils # 1.94 10^3/uL (1.8-7.7); Neutrophils % 48.1 %; Nucleated Red Blood Cells % 0 %; Platelet Count 187 10^3/cmm (130-400); Red Blood Count 4.16 10^6/uL (4.1-5.3); Red Cell Distribution Width 16.3 % (12.1-15.1)
[2022-11-14 05:49] LABS: Anion Gap 15.2 (5-19); Blood Urea Nitrogen 17 mg/dL (6-20); Calcium 8.5 mg/dL (8.5-10.5); Carbon Dioxide 24 mmol/L (22-29); Chloride 104 mmol/L (98-107); Glomerular Filtration Rate 107.2 mL/min (90-130); Glucose 78 mg/dL (65-115); Osmolality Calculated 288 mOsm/kg (285-295); Potassium 4.2 mmol/L (3.5-5.1); Sodium 139 mmol/L (136-145)
[2022-11-14] MEDS: ondansetron 2 mg/ML SDV 2 mL 4 MG IVP ×2 (06:08→20:35)
[2022-11-14 06:27] LABS: Glucose Point of Care 93 mg/dL (70-110)
[2022-11-14 08:00] VITALS: BP 159/95; PULSE 75; RESP 18; TEMP 36.8; O2SAT 94
[2022-11-14] MEDS: magnesium hydroxide 30 mL UDC 5 ML PO (08:26)
[2022-11-14] MEDS: gabapentin 400 mg Capsule 1200 MG PO ×3 (08:26→20:18)
[2022-11-14] MEDS: pregabalin 50 mg Capsule PO ×2 (08:27→18:24)
[2022-11-14] MEDS: pantoprazole DR 40 mg Tablet PO (08:27)
[2022-11-14] MEDS: acetaminophen 325 mg Tablet 650 MG PO (08:27)
[2022-11-14] MEDS: ascorbic acid 500 mg Tablet 1000 MG PO ×2 (08:27→20:18)
[2022-11-14] MEDS: simethicone 80 mg Chew PO ×3 (08:27→18:23)
[2022-11-14] MEDS: sertraline 50 mg Tablet PO (08:27)
[2022-11-14] MEDS: docusate sodium 100 mg Capsule PO ×2 (08:28→18:24)
[2022-11-14] MEDS: oxybutynin 5 mg Tablet PO ×3 (08:29→20:19)
--- NOTE | 2022-11-14 11:20 | PM.CONSULT ---
Providers/Reason For Consult Consulting Physician/Specialty*: Dr. Andrew Lo, DO Reason for Consult*: Constipation/obstipation Attending Physician: Jesse Kunz MD Primary Care Provider: Shakira Cruz MD History of Present Illness History of Present Illness Rosanne Morales is a 47 year old female who is a quadriplegic from trauma, that presents the hospital with at least a 1 year history of constipation and obstipation. She was found to have significant constipation and colon dilation to over 6 cm. She reports that she is taken numerous laxatives every day for the last year and has a very hard hard time having a bowel movement. She is reasonably requesting a colostomy for a better quality of life. She gets some right-sided abdominal pain especially in the mornings. Having a bowel movement can make the pain better. Nighttime's are better for her. The pain does not radiate. She gets nauseated sometimes and has aversion to food due to this. Denies emesis. Review of Systems General: Reports: 10 or more systems reviewed and unremarkable except in HPI and below Medications/Allergies Home Medications Medication Instructions Recorded Confirmed Last Taken Type ascorbic acid (vitamin C) 1,000 mg 1,000 mg PO BID@08,04/22/20 11/13/22 11/13/22 History tablet (Vitamin C) pantoprazole 40 mg tablet,delayed 40 mg PO DAILY 04/22/20 11/13/22 11/13/22 History release sennosides 8.6 mg-docusate sodium 2 tab PO BID@,05/28/20 11/13/22 11/12/22 History 50 mg tablet (Senna Plus) alprazolam 0.25 mg tablet (Xanax) 0.25 mg PO TID PRN Anxiety #10 tabs 11/22/20 11/13/22 11/12/22 Rx fentanyl 50 mcg/hr transdermal 1 patch transdermal Q72H #5 ea 11/22/20 11/13/22 11/08/22 Rx patch morphine concentrate 100 mg/5 mL 5 mg (0.25 mL) PO Q4H PRN Pain #30 11/22/20 11/13/22 11/11/22 Rx (20 mg/mL) oral solution mL acetaminophen 500 mg tablet 500 mg PO Q6H PRN Pain 08/17/21 11/13/22 10/02/22 History naloxone 0.4 mg/mL injection 0.4 mg IM Q2M PRN overdose 08/17/21 11/13/22 Unknown History solution pravastatin 40 mg tablet 40 mg PO BEDTIME 08/17/21 11/13/22 11/12/22 History simethicone 80 mg chewable tablet 80 mg PO TIDWM 08/17/21 11/13/22 11/12/22 History methylnaltrexone 12 mg/0.6 mL 0.6 ml SUBCUT Q3D PRN Constipation 01/24/22 11/13/22 11/11/22 History subcutaneous syringe (Relistor) ondansetron HCl 4 mg tablet 4 mg PO Q6H PRN Nausea 01/24/22 11/13/22 11/07/22 History docusate sodium 100 mg capsule 100 mg PO BID 02/11/22 11/13/22 11/13/22 History (Colace) gabapentin 600 mg tablet 1,200 mg PO TID 02/11/22 11/13/22 11/13/22 History calcium carbonate 400 mg calcium 400 mg PO DAILY PRN Heartburn 03/06/22 11/13/22 06/03/22 History (1,000 mg) chewable tablet (Tums Ultra) insulin lispro 100 unit/mL See Rx Instructions .Route .COMPLEX 03/06/22 11/13/22 11/13/22 History subcutaneous pen (Humalog KwikPen (U-100) Insulin) pregabalin 50 mg capsule (Lyrica) 50 mg PO BID 03/06/22 11/13/22 11/12/22 History magnesium hydroxide 400 mg/5 mL 5 ml PO DAILY #355 mL 03/12/22 11/13/22 11/13/22 Rx oral suspension (Milk of Magnesia) potassium chloride 20 mEq 20 meq PO DAILY 03/28/22 11/13/22 11/12/22 History tablet,extended release lidocaine 5 % topical patch 1 patch topical Q12H 05/12/22 11/13/22 11/12/22 History metformin 1,000 mg tablet 1,000 mg PO BID 05/12/22 11/13/22 11/12/22 History sertraline 50 mg tablet 50 mg PO DAILY 05/12/22 11/13/22 11/12/22 History linaclotide 145 mcg capsule 145 mcg PO DAILY 07/31/22 11/13/22 11/13/22 History (Sharrizess) cyclobenzaprine 5 mg tablet 5 mg PO TID PRN Muscle Pain 10/21/22 11/13/22 11/11/22 History diclofenac sodium 1 % topical gel 2 g topical BID 10/21/22 11/13/22 11/12/22 History lidocaine 4 % topical cream 1 applic topical BID PRN Pain 10/21/22 11/13/22 Unknown History methenamine hippurate 1 gram tablet 1 g PO BID 10/21/22 11/13/22 11/12/22 History oxybutynin chloride 5 mg tablet 5 mg PO TID 10/21/22 11/13/22 11/12/22 History sitagliptin phosphate 25 mg tablet 25 mg PO DAILY 10/21/22 11/13/22 11/12/22 History (Januvia) sitagliptin phosphate 50 mg tablet 50 mg PO DAILY 10/21/22 11/13/22 11/12/22 History (Januvia) fosfomycin tromethamine 3 gram 3 g PO Q3D 30 days #10 ea 10/26/22 11/13/22 11/11/22 Rx oral packet bisacodyl 10 mg rectal suppository 10 mg MA DAILY PRN Constipation 11/11/22 11/13/22 11/10/22 History nystatin 100,000 unit/mL oral 15 ml PO BID 11/11/22 11/13/22 11/12/22 History suspension sodium phosphates 19 gram-7 118 ml MA DAILY PRN Constipation 11/11/22 11/13/22 11/11/22 History gram/118 mL enema (Fleet Enema) ketoconazole 2 % topical cream 1 applic topical BID 11/13/22 11/13/22 11/13/22 History Allergies Allergy/AdvReac Type Severity Reaction Status Date / Time No Known Allergies Allergy Verified 11/13/22 09:52 Current Medications Generic Name Dose Route Start Last Admin Trade Name Freq PRN Reason Stop Dose Admin Acetaminophen 650 mg 11/13/22 15:41 11/14/22 08:27 Acetaminophen 325 Mg Tablet PO 650 mg Q6H PRN Administration Mild/Mod Pain Or Temp >/= 101 Alprazolam 0.25 mg 11/13/22 15:44 11/14/22 22:33 Alprazolam 0.5 Mg Tablet PO 0.25 mg TID PRN Administration Anxiety Ascorbic Acid 1,000 mg 11/13/22 20:00 11/14/22 20:18 Ascorbic Acid 500 Mg Tablet PO 1,000 mg BID@,20 [facility] Administration Atorvastatin Calcium 20 mg 11/13/22 21:00 11/14/22 20:19 Atorvastatin 40 Mg Tablet PO 20 mg BEDTIME ELISEO Administration Cyclobenzaprine HCl 5 mg 11/13/22 22:23 11/14/22 22:33 Cyclobenzaprine 10 Mg Tablet PO 5 mg TID PRN Administration MUSCLE SPASMS Docusate Sodium 100 mg 11/13/22 18:00 11/14/22 18:24 Docusate Sodium 100 Mg Capsule PO 100 mg BID [facility] Administration Enoxaparin Sodium 40 mg 11/13/22 17:00 11/14/22 18:23 Enoxaparin 40 Mg/0.4 Ml Syringe SUBCUT 40 mg Q24H ELISEO Administration Gabapentin 1,200 mg 11/13/22 21:00 11/14/22 20:18 Gabapentin 400 Mg Capsule PO 1,200 mg TID ELISEO Administration Insulin Human Lispro 0 unit 11/13/22 18:00 11/14/22 18:05 Insulin Lispro 100 Unit/1 Ml SUBCUT Not Given TIDWM [facility] Protocol Lactulose 30 gm 11/13/22 15:45 11/15/22 04:12 Lactulose Oral Liq 20 Gm/30 Ml Udc PO Not Given Q6H ELISEO Magnesium Hydroxide 5 ml 11/14/22 09:00 11/14/22 08:26 Magnesium Hydroxide 30 Ml Udc PO 5 ml DAILY [facility] Administration Non-Formulary Medication 1 gm 11/13/22 18:00 11/14/22 18:05 Methenamine Hippurate PO Not Given BID [facility] Non-Formulary Medication 145 mcg 11/13/22 16:20 11/14/22 08:28 Linaclotide [Linzess] PO Not Given DAILY [facility] Ondansetron HCl 4 mg 11/13/22 15:41 11/15/22 05:29 Ondansetron 2 Mg/Ml Sdv 2 Ml IVP 4 mg Q8H PRN Administration vomiting, or N/V if npo Oxybutynin Chloride 5 mg 11/13/22 21:00 11/14/22 20:19 Oxybutynin 5 Mg Tablet PO 5 mg TID ELISEO Administration Pantoprazole Sodium 40 mg 11/14/22 09:00 11/14/22 08:[address] 40 Mg Tablet PO 40 mg DAILY ELISEO Administration Pregabalin 50 mg 11/13/22 18:00 11/14/22 18:24 Pregabalin 50 Mg Capsule PO 50 mg BID ELISEO Administration Sertraline HCl 50 mg 11/14/22 09:00 11/14/22 08:27 Sertraline 50 Mg Tablet PO 50 mg DAILY ELISEO Administration Simethicone 80 mg 11/13/22 18:00 11/14/22 18:23 Simethicone 80 Mg Chew PO 80 mg TIDWM ELISEO Administration Sodium Phosphate 133 ml 11/13/22 18:00 11/14/22 18:05 Fleet Enema 133 Ml Enema MA Not Given BID ELISEO PFSH Acute PFSH: Medical History Anxiety Chronic kidney disease COVID-19 (~2019) Depression Diabetes mellitus, type II GERD (gastroesophageal reflux disease) History of ESBL E. coli infection Hydronephrosis Hyperlipidemia halfway prescription opiate use Neurogenic bladder Neuropathic pain PVD (peripheral vascular disease) Quadriplegia secondary to trauma Recurrent sepsis due to urinary tract infection Sacral decubitus ulcer Suprapubic catheter Therapeutic opioid induced constipation Urinary retention Surgical History H/O bladder repair surgery H/O cystoscopy H/O partial cystectomy H/O Spinal surgery History of hysterectomy History of partial gastrectomy (12/2019) due to perforated viscous from gastric ulcer Family History Other CAD (coronary artery disease) Diabetes Hypertension Social History Smoking and tobacco status: never smoked Alcohol intake: never Housing: Correction Marital status: Current occupational status: disabled Vitals/I&O/Wt Last Vital Signs Temp 97.9 F 11/15/22 04:00 Pulse 78 11/15/22 04:00 Resp 18 11/15/22 04:00 BP 148/91 11/15/22 04:00 Pulse Ox 92 11/15/22 04:00 O2 Del Method 11/14/22 16:00 11/14/22 11/15/22 11/15/22 22:59 06:59 14:59 Intake Total 1070 / 1190 1500 / 2690 Output Total 1300 / 1300 Balance -230 / -110 1500 / 1390 Weight last 48 hrs Weight 169 lb 4.8 oz Weight 172 lb 3.2 oz Weight 145 lb Physical Exam Narrative: General : Patient is well developed , no acute distress, oriented x3 Head : Normal cephalic, a-traumatic. Ears : Pinnae and external canal are normal. Hearing is normal. Eyes : PERRLA, Sclera and injection are normal. No conjunctival discharge. Nose : Mucous membranes are without erythema. Throat : buccal mucosa is normal, gums are without significant recession or hypertrophy. Lungs : Equal chest rise bilaterally, no use of accessory muscles, trachea is midline. Cor : Rate and rhythm are normal. Abdomen : Soft, ND, NT, no g/r/m Urinary Catheter Management: Suprapubic: Cath Placed During This Visit: no Reason for Continuing Indwelling Catheter: Chronic Indwelling Urinary Catheter on Admission Data 11/15/22 02:29 11/15/22 02:29 A&P Assessment and plan (1) Constipation: (2) Quadriplegia: Plan Open colostomy formation when possible The risks and benefits of the procedure, including but not limited to, bleeding, infection, scar, numbness, pain, damage to surrounding structures, colostomy malfunction, need for colostomy revision, leak from the staple line, were explained to the patient. She is understanding of the risks and wishes to proceed. Coding Level of Care Code Acute Code for Chg Fwd Diagnoses Constipation K59.00 Quadriplegia G82.50
[2022-11-14 11:54] LABS: Glucose Point of Care 98 mg/dL (70-110)
[2022-11-14 12:00] VITALS: BP 144/88; PULSE 83; RESP 18; TEMP 37.1; O2SAT 91
--- NOTE | 2022-11-14 12:55 | PM.PN ---
Subjective Subjective: Patient was seen and examined this morning she has not responded to GoLytely no bowel movements feel constipated has abdominal pain, also feel nauseous. Medications: Medication Review Details: Generic Name Dose Route Start Last Admin Trade Name Effie PRN Reason Stop Dose Admin Acetaminophen 650 mg 11/13/22 15:41 11/14/22 08:27 Acetaminophen 32 5 Mg Tablet PO 650 mg Q6H PRN Administration Mild/Mod Pain Or Temp >/= 101 Alprazolam 0.25 mg 11/13/22 15:44 11/13/22 20:48 Alprazolam 0.5 M g Tablet PO 0.25 mg TID PRN Administration Anxiety Ascorbic Acid 1,000 mg 11/13/22 20:00 11/14/22 08:27 Ascorbic Acid 50 0 Mg Tablet PO 1,000 mg BID@ ELISEO Administration Atorvastatin Calci um 20 mg 11/13/22 21:00 11/13/22 20:49 Atorvastatin 40 Mg Tablet PO 20 mg BEDTIME ELISEO Administration Cyclobenzaprine HC l 5 mg 11/13/22 22:23 11/14/22 00:33 Cyclobenzaprine 10 Mg Tablet PO 5 mg TID PRN Administration MUSCLE SPASMS Docusate Sodium 100 mg 11/13/22 18:00 11/14/22 08:28 Docusate Sodium 100 Mg Capsule PO 100 mg BID ELISEO Administration Enoxaparin Sodium 40 mg 11/13/22 17:00 11/13/22 16:30 Enoxaparin 40 Mg /0.4 Ml Syringe SUBCUT 40 mg Q24H ELISEO Administration Gabapentin 1,200 mg 11/13/22 21:00 11/14/22 08:26 Gabapentin 400 M g Capsule PO 1,200 mg TID ELISEO Administration Sodium Chloride 1,000 mls @ 100 m ls/hr 11/13/22 15:21 11/14/22 00:34 Sodium Chloride 0.9% IV 100 mls/hr .Q10H ELISEO Administration Insulin Human Lisp ro 0 unit 11/13/22 18:00 11/14/22 12:29 Insulin Lispro 1 00 Unit/1 Ml SUBCUT Not Given TIDWM [facility] Protocol Lactulose 30 gm 11/13/22 15:45 11/14/22 08:29 Lactulose Oral L iq 20 Gm/30 Ml Udc PO Not Given Q6H [facility] Magnesium Hydroxid e 5 ml 11/14/22 09:00 11/14/22 08:26 Magnesium Hydrox vasyl 30 Ml Udc PO 5 ml DAILY ELISEO Administration Non-Formulary Medi cation 1 gm 11/13/22 18:00 11/14/22 08:28 Methenamine Prosper urate PO Not Given BID ELISEO Non-Formulary Medi cation 145 mcg 11/13/22 16:20 11/14/22 08:28 Linaclotide [Sharri zess] PO Not Given DAILY [facility] Ondansetron HCl 4 mg 11/13/22 15:41 11/14/22 06:08 Ondansetron 2 Mg /Ml Sdv 2 Ml IVP 4 mg Q8H PRN Administration vomiting, or N/V if npo Oxybutynin Chlorid e 5 mg 11/13/22 21:00 11/14/22 08:29 Oxybutynin 5 Mg Tablet PO 5 mg TID [facility] Administration Pantoprazole Sodiu m 40 mg 11/14/22 09:00 11/14/22 08:[address] 40 Mg Tablet PO 40 mg DAILY [facility] Administration Pregabalin 50 mg 11/13/22 18:00 11/14/22 08:27 Pregabalin 50 Mg Capsule PO 50 mg BID [facility] Administration Sertraline HCl 50 mg 11/14/22 09:00 11/14/22 08:27 Sertraline 50 Mg Tablet PO 50 mg DAILY [facility] Administration Simethicone 80 mg 11/13/22 18:00 11/14/22 08:27 Simethicone 80 M g Chew PO 80 mg TIDWM [facility] Administration Sodium Phosphate 133 ml 11/13/22 18:00 11/14/22 08:27 Fleet Enema 133 Ml Enema MD Not Given BID [facility] Vitals/I&O/Wt Last Vital Signs Temp 98.7 F 11/14/22 12:00 Pulse 83 11/14/22 12:00 Resp 18 11/14/22 12:00 BP 144/88 11/14/22 12:00 Pulse Ox 91 11/14/22 12:00 O2 Del Method 11/14/22 12:00 11/13/22 11/14/22 11/14/22 22:59 06:59 14:59 Intake Total 2320 / 2320 120 / 120 Output Total 4400 / 4400 Balance -2080 / -2080 120 / 120 Weight last 48 hrs Weight 76.793 kg Weight 78.109 kg Weight 65.771 kg Physical Exam Const: COMMON NORMALS: patient oriented x3 HENMT: COMMON NORMALS: normocephalic and atraumatic HEAD & SCALP: normocephalic and atraumatic Resp: COMMON NORMALS: clear to auscultation bilaterally EFFORT & INSPECTION: Yes symmetric chest movement AUSCULTATION: clear to auscultation bilaterally Cardio: COMMON NORMALS: regular rate, regular rhythm, S1 normal heart sound present, S2 normal heart sound present, No gallops present (Cardio), No murmurs present (Cardio), No rub (Cardio) and Peripheral pulses 2+ throughout RATE: regular rate RHYTHM: regular rhythm HEART SOUNDS: S1 normal heart sound present and S2 normal heart sound present PERIPHERAL PULSES: Peripheral pulses 2+ throughout GI: AUSCULTATION: Yes normoactive bowel sounds RECTAL EXAM: deferred OTHER: Generalized abdominal tenderness, Extremity: COMMON NORMALS: no clubbing, cyanosis or edema and no pedal edema Neuro: COMMON NORMALS: patient oriented x3 Urinary Catheter Management: Suprapubic: Cath Placed During This Visit: no Reason for Continuing Indwelling Catheter: Chronic Indwelling Urinary Catheter on Admission Data 11/14/22 05:03 11/14/22 05:03 A&P Assessment and plan (1) Neurogenic bladder: (2) Quadriplegia: (3) Hydronephrosis: Qualifiers: Hydronephrosis type: other Qualified Code(s): N13.39 - Other hydronephrosis (4) Diabetes mellitus, type II: (5) Suprapubic catheter: (6) Constipation: Plan 47 year old female with past medical history of quadriplegia suprapubic catheter neurogenic bladder, ESBL E. coli UTI, Proteus mirabilis ESBL bacteremia, opioid induced chronic constipation, Moderate to severe RIGHT hydroureteronephrosis. There is a 2 mm calcification at the UV junction, care home resident Came in today with chief complaint of worsening constipation. Assessment: Opioid-induced severe constipation: Patient has failed lactulose, is on linaclotide at home. Will resume , patient will also receive GoLytely. Surgery on board. Right-sided Rhododendron ureter: Urology was consulted, currently they do not plan to do anything. History of neurogenic bladder s/p suprapubic catheter Diabetes: Diabetic diet SSI, monitor fingerstick glucose CODE STATUS: Full code DVT prophylaxis on Lovenox Attestations Medical Necessity Statement*: For management of her severe constipation. Coding Level of Care Code Acute Code for Chg Fwd Diagnoses Neurogenic bladder N31.9 Quadriplegia G82.50 Hydronephrosis N13.39 Hydronephrosis type: other Diabetes mellitus, type II E11.9 Suprapubic catheter Z93.59 Constipation K59.00
[2022-11-14] MEDS: ALPRAZolam 0.5 mg Tablet 0.25 MG PO ×2 (15:45→22:33)
[2022-11-14 16:00] VITALS: BP 159/91; PULSE 79; RESP 18; TEMP 37; O2SAT 94
[2022-11-14 16:27] LABS: Glucose Point of Care 91 mg/dL (70-110)
[2022-11-14] MEDS: enoxaparin 40 mg/0.4 mL Syringe SUBCUT (18:23)
[2022-11-14 20:00] VITALS: BP 126/82; PULSE 92; RESP 18; TEMP 36.8; O2SAT 90
[2022-11-14] MEDS: atorvastatin 40 mg Tablet 20 MG PO (20:19)
[2022-11-14 22:13] LABS: Glucose Point of Care 94 mg/dL (70-110)
[2022-11-15] VITALS (14 sets, daily range): BP systolic 111–148; BP diastolic 76–96; PULSE 64–93; RESP 12–23; TEMP 36.1–36.9; O2SAT 89–99
[2022-11-15 03:34] LABS: Basophils % 0.7 %; Eosinophils # 0.2 10^3/uL (0.0-0.8); Eosinophils % 3.6 %; Hematocrit 36.1 % (37.0-47.0); Hemoglobin 11.3 g/dL (11.5-15.3); Lymphocytes # 1.7 10^3/uL (0.8-4.8); Lymphocytes % 39.3 %; Mean Corpuscular HGB Conc 31.3 g/dL (30.0-36.0); Mean Corpuscular Hemoglobin 26.7 pg (28.0-34.0); Mean Corpuscular Volume 85.1 fl (81-99); Mean Platelet Volume 10.7 fL (7.4-10.4); Monocytes # 0.4 10^3/uL (0.2-0.9); Neutrophils # 1.98 10^3/uL (1.8-7.7); Neutrophils % 47.2 %; Nucleated Red Blood Cells % 0 %; Platelet Count 207 10^3/cmm (130-400); Red Blood Count 4.24 10^6/uL (4.1-5.3); Red Cell Distribution Width 16.2 % (12.1-15.1); White Blood Count 4.2 10^3/uL (4.0-10.0)
[2022-11-15 04:05] LABS: Anion Gap 16.9 (5-19); Blood Urea Nitrogen 14 mg/dL (6-20); Calcium 8.7 mg/dL (8.5-10.5); Carbon Dioxide 25 mmol/L (22-29); Chloride 105 mmol/L (98-107); Glomerular Filtration Rate 107.2 mL/min (90-130); Glucose 76 mg/dL (65-115); Osmolality Calculated 295 mOsm/kg (285-295); Potassium 3.9 mmol/L (3.5-5.1); Sodium 143 mmol/L (136-145)
[2022-11-15] MEDS: ondansetron 2 mg/ML SDV 2 mL 4 MG IVP ×2 (05:29→22:57)
[2022-11-15 06:31] LABS: Glucose Point of Care 98 mg/dL (70-110)
--- NOTE | 2022-11-15 07:57 | W.PM.OPSUD ---
Surgery/Procedure H&P Update DATE OF PROCEDURE: November 15, 2022 DATE H&P PERFORMED: 11/14/22 PREOP DIAGNOSIS: Chronic neurogenic bladder with recent SP tube placement PLANNED PROCEDURE: Operation Date: 11/15/22 09:00 Proposed Procedures p Colostomy(Not Applicable) - Andrew Lo DO
--- NOTE | 2022-11-15 08:11 | PC.NURSE ---
PT OFF [place] FLOOR TO THE OR AT APPROX. [id number]
[2022-11-15] MEDS: cetylpyridinium Lozenge 1 EACH MUCOUS MEM (08:14)
--- NOTE | 2022-11-15 08:14 | ANES.PREANE2 ---
Pre-Anesthetic Assessment Height/Weight: Height 1.63 m Weight 76.793 kg Temp Pulse Resp BP Pulse Ox O2 Del Method 97.0 F L 65 17 147/84 91 11/15/22 08:13 11/15/22 08:13 11/15/22 08:13 11/15/22 08:13 11/15/22 08:13 11/15/22 08:13 Preop Diagnosis: Chronic neurogenic bladder with recent SP tube placement Operation Date: 11/15/22 09:00 Proposed Procedures p Colostomy(Not Applicable) - Andrew Lo DO Familial anesthetic complications: NOne Was Beta Rolnado taken within 24 hours: N/A Was Clonidine taken within 24 hours: N/A Last intake: Intake Last Liquid Date 11/15/22 Last Liquid Time 00:00 Last Solid Date 11/12/22 Last Solid Time 12:00 Social No alcohol and No tobacco Exam alert, oriented x 3, clear to auscultation bilaterally and regular rate & rhythm Airway Mallampati: Class IV Dentition: other (no teeth) Comments: Comments: hx tracheostomy (reversed 4 years ago), review of past records shows LMA 4 placed with no issues, unable to find previous intubation attempts here at [facility] CV/HEM Peripheral Vascular Disease Chronic Renal Insufficiency suprapubic catheter, neurogenic bladder GI Gastroesophageal Reflux Disease Metabolic Diabetes Mellitus and Morbid Obesity Musc/skel decubitus ulcers Neuropsych Cervical cord injury - quadriplegia Anesthetic Plan ASA status: 4 Anesthesia: General Risk of > 500 ml blood loss (7ml/kg in children): No Medications/Allergies Home Medications Medication Instructions Recorded Confirmed Last Taken Type ascorbic acid (vitamin C) 1,000 mg 1,000 mg PO BID@04/22/20 11/13/22 11/13/22 History tablet (Vitamin C) pantoprazole 40 mg tablet,delayed 40 mg PO DAILY 04/22/20 11/13/22 11/13/22 History release sennosides 8.6 mg-docusate sodium 2 tab PO BID@05/28/20 11/13/22 11/12/22 History 50 mg tablet (Senna Plus) alprazolam 0.25 mg tablet (Xanax) 0.25 mg PO TID PRN Anxiety #10 tabs 11/22/20 11/13/22 11/12/22 Rx fentanyl 50 mcg/hr transdermal 1 patch transdermal Q72H #5 ea 11/22/20 11/13/22 11/08/22 Rx patch morphine concentrate 100 mg/5 mL 5 mg (0.25 mL) PO Q4H PRN Pain #30 11/22/20 11/13/22 11/11/22 Rx (20 mg/mL) oral solution mL acetaminophen 500 mg tablet 500 mg PO Q6H PRN Pain 08/17/21 11/13/22 10/02/22 History naloxone 0.4 mg/mL injection 0.4 mg IM Q2M PRN overdose 08/17/21 11/13/22 Unknown History solution pravastatin 40 mg tablet 40 mg PO BEDTIME 08/17/21 11/13/22 11/12/22 History simethicone 80 mg chewable tablet 80 mg PO TIDWM 08/17/21 11/13/22 11/12/22 History methylnaltrexone 12 mg/0.6 mL 0.6 ml SUBCUT Q3D PRN Constipation 01/24/22 11/13/22 11/11/22 History subcutaneous syringe (Relistor) ondansetron HCl 4 mg tablet 4 mg PO Q6H PRN Nausea 01/24/22 11/13/22 11/07/22 History docusate sodium 100 mg capsule 100 mg PO BID 02/11/22 11/13/22 11/13/22 History (Colace) gabapentin 600 mg tablet 1,200 mg PO TID 02/11/22 11/13/22 11/13/22 History calcium carbonate 400 mg calcium 400 mg PO DAILY PRN Heartburn 03/06/22 11/13/22 06/03/22 History (1,000 mg) chewable tablet (Tums Ultra) insulin lispro 100 unit/mL See Rx Instructions .Route .COMPLEX 03/06/22 11/13/22 11/13/22 History subcutaneous pen (Humalog KwikPen (U-100) Insulin) pregabalin 50 mg capsule (Lyrica) 50 mg PO BID 03/06/22 11/13/22 11/12/22 History magnesium hydroxide 400 mg/5 mL 5 ml PO DAILY #355 mL 03/12/22 11/13/22 11/13/22 Rx oral suspension (Milk of Magnesia) potassium chloride 20 mEq 20 meq PO DAILY 03/28/22 11/13/22 11/12/22 History tablet,extended release lidocaine 5 % topical patch 1 patch topical Q12H 05/12/22 11/13/22 11/12/22 History metformin 1,000 mg tablet 1,000 mg PO BID 05/12/22 11/13/22 11/12/22 History sertraline 50 mg tablet 50 mg PO DAILY 05/12/22 11/13/22 11/12/22 History linaclotide 145 mcg capsule 145 mcg PO DAILY 07/31/22 11/13/22 11/13/22 History (Linzess) cyclobenzaprine 5 mg tablet 5 mg PO TID PRN Muscle Pain 10/21/22 11/13/22 11/11/22 History diclofenac sodium 1 % topical gel 2 g topical BID 10/21/22 11/13/22 11/12/22 History lidocaine 4 % topical cream 1 applic topical BID PRN Pain 10/21/22 11/13/22 Unknown History methenamine hippurate 1 gram tablet 1 g PO BID 10/21/22 11/13/22 11/12/22 History oxybutynin chloride 5 mg tablet 5 mg PO TID 10/21/22 11/13/22 11/12/22 History sitagliptin phosphate 25 mg tablet 25 mg PO DAILY 10/21/22 11/13/22 11/12/22 History (Januvia) sitagliptin phosphate 50 mg tablet 50 mg PO DAILY 10/21/22 11/13/22 11/12/22 History (Januvia) fosfomycin tromethamine 3 gram 3 g PO Q3D 30 days #10 ea 10/26/22 11/13/22 11/11/22 Rx oral packet bisacodyl 10 mg rectal suppository 10 mg [place] DAILY PRN Constipation 11/11/22 11/13/22 11/10/22 History nystatin 100,000 unit/mL oral 15 ml PO BID 11/11/22 11/13/22 11/12/22 History suspension sodium phosphates 19 gram-7 118 ml [place] DAILY PRN Constipation 11/11/22 11/13/22 11/11/22 History gram/118 mL enema (Fleet Enema) ketoconazole 2 % topical cream 1 applic topical BID 11/13/22 11/13/22 11/13/22 History Allergies Allergy/AdvReac Type Severity Reaction Status Date / Time No Known Allergies Allergy Verified 11/13/22 09:52 Current Medications Generic Name Dose Route Start Last Admin Trade Name Effie PRN Reason Stop Dose Admin Acetaminophen 650 mg 11/13/22 15:41 11/14/22 08:27 Acetaminophen 325 Mg Tablet PO 650 mg Q6H PRN Administration Mild/Mod Pain Or Temp >/= 101 Alprazolam 0.25 mg 11/13/22 15:44 11/14/22 22:33 Alprazolam 0.5 Mg Tablet PO 0.25 mg TID PRN Administration Anxiety Ascorbic Acid 1,000 mg 11/13/22 20:00 11/14/22 20:18 Ascorbic Acid 500 Mg Tablet PO 1,000 mg BID@ [facility] Administration Atorvastatin Calcium 20 mg 11/13/22 21:00 11/14/22 20:19 Atorvastatin 40 Mg Tablet PO 20 mg BEDTIME ELISEO Administration Cyclobenzaprine HCl 5 mg 11/13/22 22:23 11/14/22 22:33 Cyclobenzaprine 10 Mg Tablet PO 5 mg TID PRN Administration MUSCLE SPASMS Docusate Sodium 100 mg 11/13/22 18:00 11/14/22 18:24 Docusate Sodium 100 Mg Capsule PO 100 mg BID ELISEO Administration Enoxaparin Sodium 40 mg 11/13/22 17:00 11/14/22 18:23 Enoxaparin 40 Mg/0.4 Ml Syringe SUBCUT 40 mg Q24H ELISEO Administration Gabapentin 1,200 mg 11/13/22 21:00 11/14/22 20:18 Gabapentin 400 Mg Capsule PO 1,200 mg TID ELISEO Administration Insulin Human Lispro 0 unit 11/13/22 18:00 11/14/22 18:05 Insulin Lispro 100 Unit/1 Ml SUBCUT Not Given TIDWM [facility] Protocol Lactulose 30 gm 11/13/22 15:45 11/15/22 04:12 Lactulose Oral Liq 20 Gm/30 Ml Udc PO Not Given Q6H ELISEO Magnesium Hydroxide 5 ml 11/14/22 09:00 11/14/22 08:26 Magnesium Hydroxide 30 Ml Udc PO 5 ml DAILY ELISEO Administration Non-Formulary Medication 1 gm 11/13/22 18:00 11/14/22 18:05 Methenamine Hippurate PO Not Given BID [facility] Non-Formulary Medication 145 mcg 11/13/22 16:20 11/14/22 08:28 Linaclotide [Linzess] PO Not Given DAILY [facility] Ondansetron HCl 4 mg 11/13/22 15:41 11/15/22 05:29 Ondansetron 2 Mg/Ml Sdv 2 Ml IVP 4 mg Q8H PRN Administration vomiting, or N/V if npo Oxybutynin Chloride 5 mg 11/13/22 21:00 11/14/22 20:19 Oxybutynin 5 Mg Tablet PO 5 mg TID ELISEO Administration Pantoprazole Sodium 40 mg 11/14/22 09:00 11/14/22 08:[address] 40 Mg Tablet PO 40 mg DAILY ELISEO Administration Pregabalin 50 mg 11/13/22 18:00 11/14/22 18:24 Pregabalin 50 Mg Capsule PO 50 mg BID ELISEO Administration Sertraline HCl 50 mg 11/14/22 09:00 11/14/22 08:27 Sertraline 50 Mg Tablet PO 50 mg DAILY ELISEO Administration Simethicone 80 mg 11/13/22 18:00 11/14/22 18:23 Simethicone 80 Mg Chew PO 80 mg TIDWM ELISEO Administration Sodium Phosphate 133 ml 11/13/22 18:00 11/14/22 18:05 Fleet Enema 133 Ml Enema [place] Not Given BID [facility] Additional Medication Information Generic Name Dose Route Start Last Admin Trade Name Freq PRN Reason Stop Dose Admin Acetaminophen 650 mg 11/13/22 15:41 11/14/22 08:27 Acetaminophen 325 Mg Tablet PO 650 mg Q6H PRN Administration Mild/Mod Pain Or Temp >/= 101 Alprazolam 0.25 mg 11/13/22 15:44 11/13/22 20:48 Alprazolam 0.5 Mg Tablet PO 0.25 mg TID PRN Administration Anxiety Ascorbic Acid 1,000 mg 11/13/22 20:00 11/14/22 08:27 Ascorbic Acid 500 Mg Tablet PO 1,000 mg BID@, ELISEO Administration Atorvastatin Calcium 20 mg 11/13/22 21:00 11/13/22 20:49 Atorvastatin 40 Mg Tablet PO 20 mg BEDTIME ELISEO Administration Cyclobenzaprine HCl 5 mg 11/13/22 22:23 11/14/22 00:33 Cyclobenzaprine 10 Mg Tablet PO 5 mg TID PRN Administration MUSCLE SPASMS Docusate Sodium 100 mg 11/13/22 18:00 11/14/22 08:28 Docusate Sodium 100 Mg Capsule PO 100 mg BID ELISEO Administration Enoxaparin Sodium 40 mg 11/13/22 17:00 11/13/22 16:30 Enoxaparin 40 Mg/0.4 Ml Syringe SUBCUT 40 mg Q24H ELISEO Administration Gabapentin 1,200 mg 11/13/22 21:00 11/14/22 08:26 Gabapentin 400 Mg Capsule PO 1,200 mg TID ELISEO Administration Sodium Chloride 1,000 mls @ 100 mls/hr 11/13/22 15:21 11/14/22 00:34 Sodium Chloride 0.9% IV 100 mls/hr .Q10H ELISEO Administration Insulin Human Lispro 0 unit 11/13/22 18:00 11/14/22 12:29 Insulin Lispro 100 Unit/1 Ml SUBCUT Not Given TIDWM [facility] Protocol Lactulose 30 gm 11/13/22 15:45 11/14/22 08:29 Lactulose Oral Liq 20 Gm/30 Ml Udc PO Not Given Q6H [facility] Magnesium Hydroxide 5 ml 11/14/22 09:00 11/14/22 08:26 Magnesium Hydroxide 30 Ml Udc PO 5 ml DAILY [facility] Administration Non-Formulary Medication 1 gm 11/13/22 18:00 11/14/22 08:28 Methenamine Hippurate PO Not Given BID [facility] Non-Formulary Medication 145 mcg 11/13/22 16:20 11/14/22 08:28 Linaclotide [Linzess] PO Not Given DAILY [facility] Ondansetron HCl 4 mg 11/13/22 15:41 11/14/22 06:08 Ondansetron 2 Mg/Ml Sdv 2 Ml IVP 4 mg Q8H PRN Administration vomiting, or N/V if npo Oxybutynin Chloride 5 mg 11/13/22 21:00 11/14/22 08:29 Oxybutynin 5 Mg Tablet PO 5 mg TID ELISEO Administration Pantoprazole Sodium 40 mg 11/14/22 09:00 11/14/22 08:[address] 40 Mg Tablet PO 40 mg DAILY [facility] Administration Pregabalin 50 mg 11/13/22 18:00 11/14/22 08:27 Pregabalin 50 Mg Capsule PO 50 mg BID ELISEO Administration Sertraline HCl 50 mg 11/14/22 09:00 11/14/22 08:27 Sertraline 50 Mg Tablet PO 50 mg DAILY ELISEO Administration Simethicone 80 mg 11/13/22 18:00 11/14/22 08:27 Simethicone 80 Mg Chew PO 80 mg TIDWM ELISEO Administration Sodium Phosphate 133 ml 11/13/22 18:00 11/14/22 08:27 Fleet Enema 133 Ml Enema [place] Not Given BID ELISEO PFSH Anesthesia Medical History Anxiety Chronic kidney disease COVID-19 (~2019) Depression Diabetes mellitus, type II GERD (gastroesophageal reflux disease) History of ESBL E. coli infection Hydronephrosis Hyperlipidemia shelter prescription opiate use Neurogenic bladder Neuropathic pain PVD (peripheral vascular disease) Quadriplegia secondary to trauma Recurrent sepsis due to urinary tract infection Sacral decubitus ulcer Suprapubic catheter Therapeutic opioid induced constipation Urinary retention Surgical History H/O bladder repair surgery H/O cystoscopy H/O partial cystectomy H/O Spinal surgery History of hysterectomy History of partial gastrectomy (12/2019) due to perforated viscous from gastric ulcer Family History Other CAD (coronary artery disease) Diabetes Hypertension Social History Smoking and tobacco status: never smoked Alcohol intake: never Housing: Senior Living Marital status: Current occupational status: disabled Data Anesthesia 11/15/22 02:29 11/15/22 02:29 Short CBC 11/13/22 11/14/22 11/15/22 Range/Units 09:59 05:03 02:29 WBC 5.7 4.0 4.2 (4.0-10.0) 10^3/uL Hgb 12.6 11.0 L 11.3 L (11.5-15.3) g/dL Hct 40.8 36.5 L 36.1 L (37.0-47.0) % MCV 86.3 87.7 85.1 (81-99) fl Plt Count 206 187 207 (130-400) 10^3/cmm Neut % (Auto) 69.7 48.1 47.2 % Neut # (Auto) 3.98 1.94 1.98 (1.8-7.7) 10^3/uL BMP 11/13/22 11/14/22 11/15/22 09:59 05:03 02:29 Sodium 137 139 143 Potassium 4.3 4.2 3.9 Chloride 102 104 105 Carbon Dioxide 22 24 25 BUN 19 17 14 Creatinine 0.6 0.6 0.6 Glucose 101 78 76 Calcium 8.9 8.5 8.7 Liver Function 11/13/22 Range/Units 09:59 Total Bilirubin 0.2 (0.15-1.2) mg/dL AST 18 (0-32) U/L ALT 21 (0-33) U/L Alkaline Phosphatase 68 (35-105) U/L Albumin 3.8 (3.5-5.2) g/dL Cardiac Studies: No Data to Display
[2022-11-15] MEDS: sodium chloride 0.9% 1,000 ML 30 ML IV (08:15)
[2022-11-15] MEDS: ceFOXitin 2,000 MG in sodium chloride 0.9% (plus) 50 ML 100 MG IV (08:15)
--- NOTE | 2022-11-15 10:25 | P.OP_ITS ---
Operative Report Date of procedure: November 15, 2022 Pre-op diagnosis: Preop Diagnosis chronic constipation with obstipation Quadriplegia Post-op diagnosis: same Procedure done: Open colostomy formation Implants: None Specimens removed/disposition: None Surgeon: Dr. Theron Lo DO Anesthesia: General Estimated blood loss (mL): 10 Complications: None apparent Brief History: This is a very pleasant 47-year-old female with quadriplegia, constipation and obstipation for over a year. She has a stage IV sacral decubitus ulcer and desires colostomy formation for quality of life. The risks and benefits were explained and documented. Procedure: The patient was Operative room placed on the OR table in supine position. The abdomen was inspected prepped and draped in usual sterile fashion. A timeout was performed. All present were in agreement. General endotracheal ovation was achieved by department anesthesia. A 15 blade scalpel was used to make a midline lapar otomy. Dissection was carried down through the fascia with electrocautery. Jason's were used to grasp the fascia and Metzenbaum scissors were used to open the peritoneum. The peritoneum was further opened with electrocautery. The sigmoid was encountered and a hole was made in the mesentery bluntly and with electrocautery. Contour stapler with a blue load was used to transect the sigmoid colon. The avoidance was then used to ligate approximately 2 inches of mesentery for elongation of the future ostomy site. A Jason was then used to elevate the skin approximately 4 inches laterally and 2 inches inferior to the umbilicus. A [place] of skin was cut out using Bovie cautery. Fat was tunneled out down to the anterior rectus sheath which was opened in a cruciate fashion. A linear incision was made on the posterior rectus sheath after splitting the rectus muscle. The sigmoid colon was then brought up through the ostomy. The midline incision was closed with #1 PDS in running fashion x2. Skin was closed with lasha. The ostomy was then matured in the typical fashion. Ostomy appliance was placed. Sterile dressings were placed. Patient tolerated procedure well.
[2022-11-15 11:42] LABS: Glucose Point of Care 112 mg/dL (70-110)
[2022-11-15] MEDS: lactated ringers 1,000 ML 125 ML IV ×2 (11:52→20:44)
--- NOTE | 2022-11-15 12:00 | ANE.PACU2 ---
Inpatient post-anesthesia follow up: Airway intact: Yes Vital signs: Temperature 98.7 F Pulse Rate 95 Respiratory Rate 17 Blood Pressure 119/79 Pulse Oximetry 95 Oxygen Delivery Me thod Nasal Cannula Oxygen Flow Rate 2 Fraction of Inspir ed Oxygen Hydration adequate: Yes Nausea and vomiting: No Pain level: 1 Mental status: Baseline
--- NOTE | 2022-11-15 16:12 | P.PN_ITS ---
Subjective Subjective: Patient was seen and examined this morning, due for colostomy formation today. Medications: Medication Review Details: Generic Name Dose Route Start Last Admin Trade Name Freq PRN Reason Stop Dose Admin Acetaminophen 650 mg 11/13/22 15:41 11/14/22 08:27 Acetaminophen 32 5 Mg Tablet PO 650 mg Q6H PRN Administration Mild/Mod Pain Or Temp >/= 101 Alprazolam 0.25 mg 11/13/22 15:44 11/14/22 22:33 Alprazolam 0.5 M g Tablet PO 0.25 mg TID PRN Administration Anxiety Ascorbic Acid 1,000 mg 11/13/22 20:00 11/14/22 20:18 Ascorbic Acid 50 0 Mg Tablet PO 1,000 mg BID@ ELISEO Administration Atorvastatin Calci um 20 mg 11/13/22 21:00 11/14/22 20:19 Atorvastatin 40 Mg Tablet PO 20 mg BEDTIME ELISEO Administration Cyclobenzaprine HC l 5 mg 11/13/22 22:23 11/14/22 22:33 Cyclobenzaprine 10 Mg Tablet PO 5 mg TID PRN Administration MUSCLE SPASMS Docusate Sodium 100 mg 11/13/22 18:00 11/14/22 18:24 Docusate Sodium 100 Mg Capsule PO 100 mg BID ELISEO Administration Enoxaparin Sodium 40 mg 11/13/22 17:00 11/14/22 18:23 Enoxaparin 40 Mg /0.4 Ml Syringe SUBCUT 40 mg Q24H ELISEO Administration Gabapentin 1,200 mg 11/13/22 21:00 11/14/22 20:18 Gabapentin 400 M g Capsule PO 1,200 mg TID ELISEO Administration Sodium Chloride 1,000 mls @ 30 ml s/hr 11/15/22 08:00 11/15/22 08:15 Sodium Chloride 0.9% IV 11/16/22 07:59 30 mls/hr .Q24H ELISEO Administration Lactated Ringer's 1,000 mls @ 125 m ls/hr 11/15/22 11:18 11/15/22 11:52 Lactated Ringers IV 125 mls/hr .Q8H ELISEO Administration Insulin Human Lisp ro 0 unit 11/13/22 18:00 11/15/22 11:43 Insulin Lispro 1 00 Unit/1 Ml SUBCUT Not Given TIDWM [facility] Protocol Lactulose 30 gm 11/13/22 15:45 11/15/22 04:12 Lactulose Oral L iq 20 Gm/30 Ml Udc PO Not Given Q6H ELISEO Magnesium Hydroxid e 5 ml 11/14/22 09:00 11/14/22 08:26 Magnesium Hydrox vasyl 30 Ml Udc PO 5 ml DAILY ELISEO Administration Non-Formulary Medi cation 1 gm 11/13/22 18:00 11/14/22 18:05 Methenamine Prosper urate PO Not Given BID ELISEO Non-Formulary Medi cation 145 mcg 11/13/22 16:20 11/14/22 08:28 Linaclotide [Sharri zess] PO Not Given DAILY ELISEO Ondansetron HCl 4 mg 11/13/22 15:41 11/15/22 05:29 Ondansetron 2 Mg /Ml Sdv 2 Ml IVP 4 mg Q8H PRN Administration vomiting, or N/V if npo Oxybutynin Chlorid e 5 mg 11/13/22 21:00 11/14/22 20:19 Oxybutynin 5 Mg Tablet PO 5 mg TID ELISEO Administration Pantoprazole Sodiu m 40 mg 11/14/22 09:00 11/14/22 08:[address] 40 Mg Tablet PO 40 mg DAILY ELISEO Administration Pregabalin 50 mg 11/13/22 18:00 11/14/22 18:24 Pregabalin 50 Mg Capsule PO 50 mg BID ELISEO Administration Sertraline HCl 50 mg 11/14/22 09:00 11/14/22 08:27 Sertraline 50 Mg Tablet PO 50 mg DAILY ELISEO Administration Simethicone 80 mg 11/13/22 18:00 11/15/22 13:55 Simethicone 80 M g Chew PO Not Given TIDWM ELISEO Sodium Phosphate 133 ml 11/13/22 18:00 11/14/22 18:05 Fleet Enema 133 Ml Enema [place] Not Given BID [facility] Vitals/I&O/Wt Last Vital Signs Temp 97.7 F 11/15/22 15:18 Pulse 80 11/15/22 15:18 Resp 16 11/15/22 15:18 BP 146/89 11/15/22 15:18 Pulse Ox 95 11/15/22 15:18 O2 Del Method 11/15/22 15:18 O2 Flow Rate 2 11/15/22 15:18 11/15/22 11/15/22 11/15/22 06:59 14:59 22:59 Intake Total 1500 / 2690 860 / 860 Output Total 955 / 955 Balance 1500 / 1390 -95 / -95 Weight last 48 hrs Weight 76.793 kg Physical Exam Const: COMMON NORMALS: patient oriented x3 HENMT: COMMON NORMALS: normocephalic and atraumatic HEAD & SCALP: normocephalic and atraumatic Resp: COMMON NORMALS: normal respiratory effort, No retractions, No use of accessory muscles and clear to auscultation bilaterally EFFORT & INSPECTION: Yes symmetric chest movement AUSCULTATION: clear to auscultation bilaterally Cardio: COMMON NORMALS: regular rate, regular rhythm, S1 normal heart sound present, S2 normal heart sound present, No gallops present (Cardio), No murmurs present (Cardio), No rub (Cardio) and Peripheral pulses 2+ throughout RATE: regular rate RHYTHM: regular rhythm HEART SOUNDS: S1 normal heart sound present and S2 normal heart sound present PERIPHERAL PULSES: Peripheral pulses 2+ throughout GI: COMMON NORMALS: Normal to inspection, nondistended, normoactive bowel sounds present, Soft to palpation, non-tender, No hepatosplenomegaly present and no masses AUSCULTATION: Yes normoactive bowel sounds PALPATION: Yes Soft to palpation and Yes No hepatosplenomegaly present RECTAL EXAM: deferred OTHER: Generalized abdominal tenderness, Extremity: COMMON NORMALS: no clubbing, cyanosis or edema and no pedal edema Neuro: COMMON NORMALS: patient oriented x3 Urinary Catheter Management: Suprapubic: Cath Placed During This Visit: no Reason for Continuing Indwelling Catheter: Chronic Indwelling Urinary Catheter on Admission Data 11/15/22 02:29 11/15/22 02:29 A&P Assessment and plan (1) Neurogenic bladder: (2) Quadriplegia: (3) Hydronephrosis: Qualifiers: Hydronephrosis type: other Qualified Code(s): N13.39 - Other hydronephrosis (4) Diabetes mellitus, type II: (5) Suprapubic catheter: (6) Constipation: Plan 47 year old female with past medical history of quadriplegia suprapubic catheter neurogenic bladder, ESBL E. coli UTI, Proteus mirabilis ESBL bacteremia, opioid induced chronic constipation, Moderate to severe RIGHT hydroureteronephrosis. There is a 2 mm calcification at the UV junction, shelter resident Came in today with chief complaint of worsening constipation. Assessment: Opioid-induced severe constipation: Patient has failed lactulose, is on linaclotide at home. Will resume , patient will also receive GoLytely. Surgery on board. Right-sided Maynard ureter: Urology was consulted, currently they do not plan to do anything. History of neurogenic bladder s/p suprapubic catheter Diabetes: Diabetic diet SSI, monitor fingerstick glucose CODE STATUS: Full code DVT prophylaxis on Lovenox Attestations Medical Necessity Statement*: Needs to be in hospital management of chronic constipation. Coding Level of Care Code Acute Code for Chg Fwd Exam Detailed Diagnoses Neurogenic bladder N31.9 Quadriplegia G82.50 Hydronephrosis N13.39 Hydronephrosis type: other Diabetes mellitus, type II E11.9 Suprapubic catheter Z93.59 Constipation K59.00
[2022-11-15] MEDS: oxybutynin 5 mg Tablet PO ×2 (16:47→20:46)
[2022-11-15] MEDS: gabapentin 400 mg Capsule 1200 MG PO ×2 (16:47→20:45)
[2022-11-15] MEDS: enoxaparin 40 mg/0.4 mL Syringe SUBCUT (17:40)
[2022-11-15] MEDS: docusate sodium 100 mg Capsule PO (17:41)
[2022-11-15] MEDS: cyclobenzaprine 10 mg Tablet 5 MG PO (17:42)
[2022-11-15] MEDS: pregabalin 50 mg Capsule PO (18:20)
[2022-11-15] MEDS: simethicone 80 mg Chew PO (18:20)
[2022-11-15] MEDS: atorvastatin 40 mg Tablet 20 MG PO (20:46)
[2022-11-15 21:47] LABS: Glucose Point of Care 78 mg/dL (70-110)
[2022-11-15] MEDS: lactulose oral liq 20 gm/30 mL UDC 30 GM PO (22:09)
[2022-11-15] MEDS: ALPRAZolam 0.5 mg Tablet 0.25 MG PO (22:10)
[2022-11-16] VITALS (10 sets, daily range): BP systolic 105–131; BP diastolic 69–81; PULSE 88–99; RESP 16–20; TEMP 36.5–37.1; O2SAT 93–95
[2022-11-16 03:55] LABS: Basophils % 0.4 %; Eosinophils # 0.1 10^3/uL (0.0-0.8); Eosinophils % 0.7 %; Hemoglobin 11.1 g/dL (11.5-15.3); Lymphocytes # 1.4 10^3/uL (0.8-4.8); Lymphocytes % 20.3 %; Mean Corpuscular HGB Conc 30.8 g/dL (30.0-36.0); Mean Corpuscular Hemoglobin 26.8 pg (28.0-34.0); Mean Platelet Volume 10.4 fL (7.4-10.4); Monocytes # 0.6 10^3/uL (0.2-0.9); Monocytes % 9.3 %; Neutrophils # 4.62 10^3/uL (1.8-7.7); Neutrophils % 69.2 %; Nucleated Red Blood Cells % 0 %; Platelet Count 192 10^3/cmm (130-400); Red Blood Count 4.14 10^6/uL (4.1-5.3); Red Cell Distribution Width 16.3 % (12.1-15.1); White Blood Count 6.7 10^3/uL (4.0-10.0)
[2022-11-16 04:21] LABS: Anion Gap 16.9 (5-19); Blood Urea Nitrogen 12 mg/dL (6-20); Calcium 8.6 mg/dL (8.5-10.5); Carbon Dioxide 23 mmol/L (22-29); Chloride 104 mmol/L (98-107); Glomerular Filtration Rate 107.2 mL/min (90-130); Glucose 85 mg/dL (65-115); Osmolality Calculated 289 mOsm/kg (285-295); Potassium 3.9 mmol/L (3.5-5.1); Sodium 140 mmol/L (136-145)
[2022-11-16] MEDS: lactated ringers 1,000 ML 125 ML IV (04:51)
[2022-11-16 06:43] LABS: Glucose Point of Care 92 mg/dL (70-110)
[2022-11-16] MEDS: magnesium hydroxide 30 mL UDC 5 ML PO (09:00)
[2022-11-16] MEDS: gabapentin 400 mg Capsule 1200 MG PO ×3 (09:00→20:05)
[2022-11-16] MEDS: docusate sodium 100 mg Capsule PO ×2 (09:01→17:43)
[2022-11-16] MEDS: oxybutynin 5 mg Tablet PO ×3 (09:01→20:04)
[2022-11-16] MEDS: pregabalin 50 mg Capsule PO ×2 (09:01→17:43)
[2022-11-16] MEDS: pantoprazole DR 40 mg Tablet PO (09:01)
[2022-11-16] MEDS: ALPRAZolam 0.5 mg Tablet 0.25 MG PO ×3 (09:01→22:39)
[2022-11-16] MEDS: sertraline 50 mg Tablet PO (09:02)
[2022-11-16] MEDS: HYDROmorphone 1 mg/mL INJ 1 mL IVP ×3 (09:10→20:22)
[2022-11-16] MEDS: cyclobenzaprine 10 mg Tablet 5 MG PO ×3 (09:10→22:40)
[2022-11-16] MEDS: polyethylene glycol 3350 Pkt 17 gm PO (09:12)
[2022-11-16] MEDS: ascorbic acid 500 mg Tablet 1000 MG PO ×2 (09:15→20:05)
[2022-11-16] MEDS: simethicone 80 mg Chew PO ×3 (09:17→17:43)
[2022-11-16 11:50] LABS: Glucose Point of Care 95 mg/dL (70-110)
--- NOTE | 2022-11-16 12:34 | PC.SOCIAL ---
IMM Update pg 2 of IMM updated and reviewed w/ patient. Copy provided and Copy dated, initialed and placed in chart.
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
[2022-11-16 16:32] LABS: Glucose Point of Care 84 mg/dL (70-110)
--- NOTE | 2022-11-16 17:05 | PM.PN ---
Subjective Subjective: Patient seen and examined. Denies nausea or vomiting. Denies abdominal pain. Colostomy producing Vitals/I&O/Wt Last Vital Signs Temp 98.1 F 11/16/22 12:00 Pulse 88 11/16/22 12:00 Resp 18 11/16/22 14:15 BP 116/77 11/16/22 12:00 Pulse Ox 95 11/16/22 12:00 O2 Del Method 11/16/22 12:00 O2 Flow Rate 2 11/16/22 08:41 11/16/22 11/16/22 11/16/22 06:59 14:59 22:59 Intake Total 1000 / 2860 834.583 / 834.583 954 / 1788.583 Balance 1000 / 1905 834.583 / 834.583 954 / 1788.583 Physical Exam Narrative: General: No acute distress, awake alert and oriented x3 Abdomen soft, nontender, nondistended, no guarding rebound or masses Ostomy pink patent and producing Incisions intact without erythema or exudate Urinary Catheter Management: Suprapubic: Cath Placed During This Visit: no Reason for Continuing Indwelling Catheter: Other Data 11/16/22 03:05 11/16/22 03:05 A&P Assessment and plan (1) Constipation: (2) Quadriplegia: Plan Postop day #1 status post open colostomy formation Regular diet Surgically stable for discharge if tolerating a regular diet Medical management per hospitalist Attestations Medical Necessity Statement*: Patient requires at least 1 more night in the hospital for placement after open colostomy formation yesterday Coding Level of Care Code Acute Code for Chg Fwd Diagnoses Constipation K59.00 Quadriplegia G82.50
[2022-11-16] MEDS: enoxaparin 40 mg/0.4 mL Syringe SUBCUT (17:43)
--- NOTE | 2022-11-16 18:40 | PC.NURSE ---
Patient resting in bed and agreeing to frequent turns as well as at patient request, AAOx4, VSS on supplemental oxygen per nasal canula. NO new events or needs, ostomy clean, dry, intact as well at patent with formed stool. Sacral dressing clean, dry and intact. All questions and concerns addressed throughout shift, updated patients brother over the phone. Room clean and clutter free with soft touch call light under chin. Will report bedside to oncoming nurse.
[2022-11-16] MEDS: atorvastatin 40 mg Tablet 20 MG PO (20:05)
[2022-11-16 21:00] LABS: Glucose Point of Care 114 mg/dL (70-110)
[2022-11-17] VITALS (12 sets, daily range): BP systolic 105–129; BP diastolic 68–85; PULSE 81–95; RESP 15–95; TEMP 36.4–37.1; O2SAT 92–97
[2022-11-17 05:12] LABS: Basophils % 0.4 %; Eosinophils # 0.1 10^3/uL (0.0-0.8); Eosinophils % 2.1 %; Hemoglobin 10.3 g/dL (11.5-15.3); Lymphocytes # 1.3 10^3/uL (0.8-4.8); Lymphocytes % 23.9 %; Mean Corpuscular HGB Conc 30.3 g/dL (30.0-36.0); Mean Corpuscular Hemoglobin 26.6 pg (28.0-34.0); Mean Corpuscular Volume 87.9 fl (81-99); Mean Platelet Volume 10.7 fL (7.4-10.4); Monocytes # 0.6 10^3/uL (0.2-0.9); Neutrophils # 3.55 10^3/uL (1.8-7.7); Neutrophils % 63.4 %; Nucleated Red Blood Cells % 0 %; Platelet Count 185 10^3/cmm (130-400); Red Blood Count 3.87 10^6/uL (4.1-5.3); Red Cell Distribution Width 16.8 % (12.1-15.1); White Blood Count 5.6 10^3/uL (4.0-10.0)
[2022-11-17 05:48] LABS: Alanine Aminotransferase 16 U/L (0-33); Albumin Level 3.3 g/dL (3.5-5.2); Alkaline Phosphatase 70 U/L (35-105); Anion Gap 15.6 (5-19); Aspartate Amino Transferase 16 U/L (0-32); Blood Urea Nitrogen 11 mg/dL (6-20); Calcium 8.4 mg/dL (8.5-10.5); Carbon Dioxide 23 mmol/L (22-29); Chloride 101 mmol/L (98-107); Globulin 3.4 g/dL (1.3-4.6); Glomerular Filtration Rate 107.2 mL/min (90-130); Glucose 118 mg/dL (65-115); Osmolality Calculated 282 mOsm/kg (285-295); Potassium 3.6 mmol/L (3.5-5.1); Sodium 136 mmol/L (136-145); Total Bilirubin 0.3 mg/dL (0.15-1.2); Total Protein 6.7 g/dL (6.6-8.7)
[2022-11-17 06:51] LABS: Glucose Point of Care 127 mg/dL (70-110)
[2022-11-17] MEDS: HYDROmorphone 1 mg/mL INJ 1 mL IVP ×3 (08:26→18:30)
[2022-11-17] MEDS: magnesium hydroxide 30 mL UDC 5 ML PO (08:29)
[2022-11-17] MEDS: polyethylene glycol 3350 Pkt 17 gm PO (08:29)
[2022-11-17] MEDS: sertraline 50 mg Tablet PO (08:29)
[2022-11-17] MEDS: simethicone 80 mg Chew PO ×3 (08:29→17:34)
[2022-11-17] MEDS: gabapentin 400 mg Capsule 1200 MG PO ×3 (08:29→20:51)
[2022-11-17] MEDS: pregabalin 50 mg Capsule PO ×2 (08:29→17:34)
[2022-11-17] MEDS: docusate sodium 100 mg Capsule PO ×2 (08:29→17:34)
[2022-11-17] MEDS: cyclobenzaprine 10 mg Tablet 5 MG PO ×3 (08:30→20:50)
[2022-11-17] MEDS: ALPRAZolam 0.5 mg Tablet 0.25 MG PO ×3 (08:30→20:50)
[2022-11-17] MEDS: pantoprazole DR 40 mg Tablet PO (08:30)
[2022-11-17] MEDS: oxybutynin 5 mg Tablet PO ×3 (08:30→20:51)
[2022-11-17] MEDS: ascorbic acid 500 mg Tablet 1000 MG PO ×2 (08:37→20:51)
[2022-11-17 11:14] LABS: Glucose Point of Care 182 mg/dL (70-110)
[2022-11-17] MEDS: insulin lispro 100 unit/1 mL SUBCUT (11:55)
--- NOTE | 2022-11-17 13:05 | PM.DCS ---
Discharge Providers Date of Admission: 11/13/22 13:13 Date of Discharge: November 17, 2022 Attending Provider at Admission: Jesse Kunz MD Attending Provider at Discharge: Damir Ernst MD Primary Care Provider: Shakira Cruz MD Diagnoses at Discharge Discharge Diagnosis (1) Constipation: Status: Acute (2) Quadriplegia: Status: Chronic Permanent problem details: secondary to trauma Reason for Visit Reason for Visit: CONSTIPATION Brief History: History as per HPI: Rosanne Morales is a 47 year old female with past medical history of quadriplegia suprapubic catheter neurogenic bladder, ESBL E. coli UTI, Proteus mirabilis ESBL bacteremia, opioid induced chronic constipation,?Moderate to severe RIGHT hydroureteronephrosis. There is a 2 mm calcification at the UV junction, [facility] resident Came in today with chief complaint of worsening constipation, she was recently discharged from the ER on lactulose after giving enemas, she had no significant improvement in constipation after lactulose, was complaining of generalized abdominal pain, nausea as well as vomiting. CT abdomen and pelvis done showed: Severe constipation. Her labs and vitals have been reviewed. Physical Exam Const: COMMON NORMALS: patient oriented x3 HENMT: COMMON NORMALS: normocephalic and atraumatic HEAD & SCALP: normocephalic and atraumatic Resp: COMMON NORMALS: normal respiratory effort, No retractions, No use of accessory muscles and clear to auscultation bilaterally EFFORT & INSPECTION: Yes symmetric chest movement AUSCULTATION: clear to auscultation bilaterally Cardio: COMMON NORMALS: regular rate, regular rhythm, S1 normal heart sound present, S2 normal heart sound present, No gallops present (Cardio), No murmurs present (Cardio), No rub (Cardio) and Peripheral pulses 2+ throughout RATE: regular rate RHYTHM: regular rhythm HEART SOUNDS: S1 normal heart sound present and S2 normal heart sound present PERIPHERAL PULSES: Peripheral pulses 2+ throughout GI: COMMON NORMALS: Normal to inspection, nondistended, normoactive bowel sounds present, Soft to palpation, non-tender, No hepatosplenomegaly present and no masses AUSCULTATION: Yes normoactive bowel sounds PALPATION: Yes Soft to palpation and Yes No hepatosplenomegaly present RECTAL EXAM: deferred Extremity: COMMON NORMALS: no clubbing, cyanosis or edema and no pedal edema Neuro: COMMON NORMALS: patient oriented x3 Urinary Catheter Management: Suprapubic: Cath Placed During This Visit: no Reason for Continuing Indwelling Catheter: Other Discharge Data Studies Completed and Pending Completed Studies During Hospitalization Category Date Time Status CT abdomen pelvis wo con [id number] Stat Cat Scan 11/13/22 11:04 Completed Pending at discharge Category Date Time Status CBC Auto Diff [Complete Blood Count w/Auto] AM LABS Lab 11/18/22 04:00 Ordered CBC Auto Diff [Complete Blood Count w/Auto] AM LABS Lab 11/19/22 04:00 Ordered CMP [Comprehensive Metabolic Panel] AM LABS Lab 11/18/22 04:00 Ordered CMP [Comprehensive Metabolic Panel] AM LABS Lab 11/19/22 04:00 Ordered Urinalysis Stat Lab 11/13/22 11:17 Ordered Radiology Impressions Abdomen/Pelvis CT 11/13/22 11:04 IMPRESSION: 1. Moderate to severe RIGHT hydroureteronephrosis. There is a 2 mm calcification at the UV junction. 2. Severe bilateral constipation and obstipation throughout the entire colon. 3. RIGHT adnexal cystic mass is been present on prior studies. Differential includes ovarian cyst, paraovarian cyst, mucocele or gastric diverticulum. 4. Normal appendix. Laboratory Results WBC 5.6 10^3/uL (4.0-10.0) 11/17/22 04:15 RBC 3.87 10^6/uL (4.1-5.3) L 11/17/22 04:15 Hgb 10.3 g/dL (11.5-15.3) L 11/17/22 04:15 Hct 34.0 % (37.0-47.0) L 11/17/22 04:15 MCV 87.9 fl (81-99) 11/17/22 04:15 MCH 26.6 pg (28.0-34.0) L 11/17/22 04:15 MCHC 30.3 g/dL (30.0-36.0) 11/17/22 04:15 RDW 16.8 % (12.1-15.1) H 11/17/22 04:15 Plt Count 185 10^3/cmm (130-400) 11/17/22 04:15 MPV 10.7 fL (7.4-10.4) H 11/17/22 04:15 Neut % (Auto) 63.4 % 11/17/22 04:15 Lymph % (Auto) 23.9 % 11/17/22 04:15 [place] % (Auto) 10.0 % 11/17/22 04:15 Eos % (Auto) 2.1 % 11/17/22 04:15 Baso % (Auto) 0.4 % 11/17/22 04:15 Neut # (Auto) 3.55 10^3/uL (1.8-7.7) 11/17/22 04:15 Lymph # (Auto) 1.3 10^3/uL (0.8-4.8) 11/17/22 04:15 [place] # (Auto) 0.6 10^3/uL (0.2-0.9) 11/17/22 04:15 Eos # (Auto) 0.1 10^3/uL (0.0-0.8) 11/17/22 04:15 Baso # (Auto) 0.0 10^3/uL (0.0-0.1) 11/17/22 04:15 Nucleated RBC % (auto) 0 % 11/17/22 04:15 Nucleated RBCs # 0.0 /100WBC 11/17/22 04:15 Sodium 136 mmol/L (136-145) 11/17/22 04:15 Potassium 3.6 mmol/L (3.5-5.1) 11/17/22 04:15 Chloride 101 mmol/L (98-107) 11/17/22 04:15 Carbon Dioxide 23 mmol/L (22-29) 11/17/22 04:15 Anion Gap 15.6 (5-19) 11/17/22 04:15 BUN 11 mg/dL (6-20) 11/17/22 04:15 Creatinine 0.6 mg/dL (0.5-0.9) 11/17/22 04:15 GFR Calculation 107.2 mL/min (90-130) 11/17/22 04:15 Glucose 118 mg/dL (65-115) H 11/17/22 04:15 POC Glucose 182 mg/dL (70-110) H 11/17/22 11:05 Calculated Osmolality 282 mOsm/kg (285-295) L 11/17/22 04:15 Lactic Acid 1.9 mmol/L (0.5-2.2) 11/13/22 09:59 Calcium 8.4 mg/dL (8.5-10.5) L 11/17/22 04:15 Total Bilirubin 0.3 mg/dL (0.15-1.2) 11/17/22 04:15 AST 16 U/L (0-32) 11/17/22 04:15 ALT 16 U/L (0-33) 11/17/22 04:15 Alkaline Phosphatase 70 U/L (35-105) 11/17/22 04:15 Total Protein 6.7 g/dL (6.6-8.7) 11/17/22 04:15 Albumin 3.3 g/dL (3.5-5.2) L 11/17/22 04:15 Globulin 3.4 g/dL (1.3-4.6) 11/17/22 04:15 Vitals Last Vital Signs Temp 97.8 F 11/17/22 11:32 Pulse 95 11/17/22 11:32 Resp 18 11/17/22 11:54 BP 114/75 11/17/22 11:32 Pulse Ox 94 11/17/22 11:32 O2 Del Method 11/17/22 11:32 O2 Flow Rate 2 11/17/22 09:09 Discharge Plan Discharge Patient Disposition: Xfer SNF Condition: Stable Prescriptions: Continued Linzess 145 mcg capsule 145 mcg PO DAILY ascorbic acid (vitamin C) [Vitamin C] 1,000 mg Tablet 1,000 mg PO BID@08,20 pantoprazole 40 mg Tablet,Delayed Release (Dr/Ec) 40 mg PO DAILY sennosides-docusate sodium [Senna Plus] 8.6-50 mg Tablet 2 tab PO BID@08,20 pravastatin 40 mg Tablet 40 mg PO BEDTIME naloxone 0.4 mg/mL Solution 0.4 mg IM Q2M PRN (Reason: overdose) acetaminophen 500 mg Tablet 500 mg PO Q6H PRN (Reason: Pain) simethicone 80 mg Tablet,Chewable 80 mg PO TIDWM fentanyl 50 mcg/hr Patch 72 Hour 1 patch TRANSDERMAL Q72H Qty: 5 0RF morphine concentrate 100 mg/5 mL (20 mg/mL) solution 5 mg PO Q4H PRN (Reason: Pain) Qty: 30 0RF alprazolam [Xanax] 0.25 mg Tablet 0.25 mg PO TID PRN (Reason: Anxiety) Qty: 10 0RF ondansetron HCl 4 mg Tablet 4 mg PO Q6H PRN (Reason: Nausea) Relistor 12 mg/0.6 mL Syringe 0.6 ml SUBCUT Q3D PRN (Reason: Constipation) gabapentin 600 mg tablet 1,200 mg PO TID docusate sodium [Colace] 100 mg Capsule 100 mg PO BID insulin lispro [Humalog KwikPen Insulin] 100 unit/mL Insulin Pen See Rx Instructions .ROUTE .COMPLEX Rx Instructions: SLIDING SCALE- BLOOD SUGAR 125-150 GIVE 2 UNITS, 151-200 GIVE 4 UNITS, 201-250 GIVE 6 UNITS, 251-300 GIVE 8 UNITS, 301-350 GIVE 10 UNITS, 351-400 GIVE 12 UNITS pregabalin [Lyrica] 50 mg Capsule 50 mg PO BID calcium carbonate [Tums Ultra] 400 mg calcium (1,000 mg) Tablet,Chewable 400 mg PO DAILY PRN (Reason: Heartburn) magnesium hydroxide [Milk of Magnesia] 400 mg/5 mL suspension 5 ml PO DAILY Qty: 355 0RF potassium chloride 20 mEq Tablet Extended Release 20 meq PO DAILY ketoconazole 2 % Cream 1 applic TOPICAL BID metformin 1,000 mg Tablet 1,000 mg PO BID lidocaine 5 % Adhesive Patch,Medicated 1 patch TOPICAL Q12H Rx Instructions: leave on most painful area for up to 12 hrs sertraline 50 mg Tablet 50 mg PO DAILY cyclobenzaprine 5 mg Tablet 5 mg PO TID PRN (Reason: Muscle Pain) diclofenac sodium 1 % Gel 2 g TOPICAL BID Rx Instructions: apply to single elbow, wrist or hand; for hand includes palm/fingers/back of hand lidocaine 4 % Cream 1 applic TOPICAL BID PRN (Reason: Pain) methenamine hippurate 1 gram Tablet 1 g PO BID oxybutynin chloride 5 mg Tablet 5 mg PO TID Januvia 25 mg Tablet 25 mg PO DAILY Rx Instructions: Give with 50 mg to equal 75 mg daily Januvia 50 mg Tablet 50 mg PO DAILY Rx Instructions: Give with 25 mg to equal 75 mg daily fosfomycin tromethamine 3 gram packet 3 g PO Q3D 30 Days Qty: 10 5RF nystatin 100,000 unit/mL Suspension 15 ml PO BID Rx Instructions: swish and swallow bisacodyl 10 mg Suppository 10 mg [facility] DAILY PRN (Reason: Constipation) Fleet Enema 19-7 gram/118 mL Enema 118 ml [place] DAILY PRN (Reason: Constipation) Discharge Orders: Discharge Order (Routine); Ordered 11/17/22 Ordered By: Damir Ernst Referrals: [facility] [Outside] Shakira Cruz MD [Primary Care Provider] - Discharge Diet: Diabetic Discharge Activity: Resume usual activity and Increase activity as tolerated Patient Instructions: Opioid Safety Discharge Attestations Time Spent in Discharge Care*: greater than 30 min Specific Discharge Activities: educating patient, discussing with pcp/other providers, discussing with disease case manager/social workers/dc planners, documenting/other paperwork and evaluating patient/reviewing data Status at Discharge: Cognitive status at discharge: cognitively intact, Behavioral status at discharge: cooperative, Functional status at discharge: other assisted ambulation, Overall status at discharge: patient is back to baseline Quality Metrics Clinical Quality Measures [ No reported AMI, CVA or VTE this stay] Coding Level of Care Code Acute Chg DC note History Comprehensive Exam Comprehensive Medical Decision Making High Complexity Diagnoses Constipation K59.00 Quadriplegia G82.50
--- NOTE | 2022-11-17 14:25 | PM.PN ---
Subjective Subjective: Patient seen and examined. Denies nausea or vomiting. Denies abdominal pain. Colostomy producing Vitals/I&O/Wt Last Vital Signs Temp 97.8 F 11/17/22 11:32 Pulse 95 11/17/22 11:32 Resp 18 11/17/22 11:54 BP 114/75 11/17/22 11:32 Pulse Ox 94 11/17/22 11:32 O2 Del Method 11/17/22 11:32 O2 Flow Rate 2 11/17/22 09:09 11/16/22 11/17/22 11/17/22 22:59 06:59 14:59 Intake Total 1194 / 2028.583 360 / 360 Output Total 150 / 150 400 / 550 Balance 1044 / 1878.583 -400 / 1478.583 360 / 360 Physical Exam Narrative: General: No acute distress, awake alert and oriented x3 Abdomen soft, nontender, nondistended, no guarding rebound or masses Ostomy pink patent and producing Incisions intact without erythema or exudate Urinary Catheter Management: Suprapubic: Cath Placed During This Visit: no Reason for Continuing Indwelling Catheter: Other Data 11/17/22 04:15 11/17/22 04:15 A&P Assessment and plan (1) Constipation: (2) Quadriplegia: Plan Postop day #2 status post open colostomy formation Regular diet Surgically stable for discharge if tolerating a regular diet Medical management per hospitalist Follow-up with me in 2 weeks Attestations Medical Necessity Statement*: Further hospitalization per hospitalist Coding Level of Care Code Acute Code for g Fwd Diagnoses Constipation K59.00 Quadriplegia G82.50
[2022-11-17 17:14] LABS: Glucose Point of Care 113 mg/dL (70-110)
[2022-11-17] MEDS: enoxaparin 40 mg/0.4 mL Syringe SUBCUT (17:34)
--- NOTE | 2022-11-17 18:18 | PC.NURSE ---
Pt resting in bed. Colstomy bag was changed this evening. Pt AOx4, VSS, and no current needs at this time. All questions and concerns were addressed. Room neat and clean with call light within patients reach.
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
[2022-11-17] MEDS: atorvastatin 40 mg Tablet 20 MG PO (20:51)
[2022-11-17 21:28] LABS: Glucose Point of Care 162 mg/dL (70-110)
[2022-11-18] VITALS (7 sets, daily range): BP systolic 116–129; BP diastolic 81–89; PULSE 87–97; RESP 14–18; TEMP 36.4–36.6; O2SAT 93–96
[2022-11-18] MEDS: HYDROmorphone 1 mg/mL INJ 1 mL IVP ×2 (05:03→09:50)
[2022-11-18 05:43] LABS: Basophils % 0.2 %; Eosinophils # 0.2 10^3/uL (0.0-0.8); Eosinophils % 3.8 %; Hematocrit 37.3 % (37.0-47.0); Hemoglobin 11.2 g/dL (11.5-15.3); Lymphocytes # 1.3 10^3/uL (0.8-4.8); Lymphocytes % 21.7 %; Mean Corpuscular Hemoglobin 26.5 pg (28.0-34.0); Mean Corpuscular Volume 88.4 fl (81-99); Mean Platelet Volume 10.4 fL (7.4-10.4); Monocytes # 0.5 10^3/uL (0.2-0.9); Monocytes % 9.4 %; Neutrophils # 3.74 10^3/uL (1.8-7.7); Neutrophils % 64.7 %; Nucleated Red Blood Cells % 0 %; Platelet Count 204 10^3/cmm (130-400); Red Blood Count 4.22 10^6/uL (4.1-5.3); Red Cell Distribution Width 16.7 % (12.1-15.1); White Blood Count 5.8 10^3/uL (4.0-10.0)
[2022-11-18 06:10] LABS: Alanine Aminotransferase 17 U/L (0-33); Albumin Level 3.4 g/dL (3.5-5.2); Alkaline Phosphatase 82 U/L (35-105); Anion Gap 15.3 (5-19); Aspartate Amino Transferase 18 U/L (0-32); Blood Urea Nitrogen 13 mg/dL (6-20); Calcium 8.8 mg/dL (8.5-10.5); Carbon Dioxide 25 mmol/L (22-29); Chloride 100 mmol/L (98-107); Globulin 3.6 g/dL (1.3-4.6); Glomerular Filtration Rate 89.7 mL/min (90-130); Glucose 125 mg/dL (65-115); Osmolality Calculated 286 mOsm/kg (285-295); Potassium 3.3 mmol/L (3.5-5.1); Sodium 137 mmol/L (136-145); Total Bilirubin 0.2 mg/dL (0.15-1.2)
[2022-11-18 06:50] LABS: Glucose Point of Care 123 mg/dL (70-110)
[2022-11-18] MEDS: magnesium hydroxide 30 mL UDC 5 ML PO (08:23)
[2022-11-18] MEDS: docusate sodium 100 mg Capsule PO ×2 (08:23→17:18)
[2022-11-18] MEDS: polyethylene glycol 3350 Pkt 17 gm PO (08:23)
[2022-11-18] MEDS: oxybutynin 5 mg Tablet PO ×2 (08:24→14:52)
[2022-11-18] MEDS: ondansetron 2 mg/ML SDV 2 mL 4 MG IVP ×2 (08:24→14:52)
[2022-11-18] MEDS: pantoprazole DR 40 mg Tablet PO (08:24)
[2022-11-18] MEDS: sertraline 50 mg Tablet PO (08:24)
[2022-11-18] MEDS: gabapentin 400 mg Capsule 1200 MG PO ×2 (08:24→14:52)
--- NOTE | 2022-11-18 08:41 | XR_ITS ---
WS: [id number] Exam: XR KUB portable [id number] Date/Time of Exam: 11/18/2022 9:08 AM Reason For Exam: possible obstruction There is marked dilatation the colon with the significant stool retention in the rectosigmoid region as well as the right colon. No free air. Organ margins are obscured. Numerous surgical clips in the u pper left quadrant. Midline surgical skin clips noted. XR/XR KUB portable [id number] IMPRESSION: 1. Marked dilatation of the colon. The largest loop involves the right colon wh ich measures 11.2 cm at greatest diameter. Large amount of stool visualized in the rectosigmoid region as well as the right colon. 2. No pneumoperitoneum. Postoperative changes.
[2022-11-18] MEDS: pregabalin 50 mg Capsule PO ×2 (09:27→17:18)
[2022-11-18] MEDS: ascorbic acid 500 mg Tablet 1000 MG PO (09:27)
[2022-11-18] MEDS: simethicone 80 mg Chew PO ×3 (09:28→17:18)
[2022-11-18] MEDS: ALPRAZolam 0.5 mg Tablet 0.25 MG PO ×2 (09:28→14:52)
[2022-11-18] MEDS: cyclobenzaprine 10 mg Tablet 5 MG PO ×2 (09:28→14:52)
[2022-11-18] MEDS: metoclopramide 5 mg/mL SDV 2 mL 10 MG IVP ×2 (09:32→16:54)
[2022-11-18] MEDS: Fleet Enema 133 mL Enema PR (10:13)
[2022-11-18 11:09] LABS: Glucose Point of Care 146 mg/dL (70-110)
[2022-11-18] MEDS: insulin lispro 100 unit/1 mL SUBCUT (12:44)
--- NOTE | 2022-11-18 14:41 | PM.DCS ---
Discharge Providers Date of Admission: 11/13/22 13:13 Date of Discharge: November 18, 2022 Attending Provider at Admission: Jesse Kunz MD Attending Provider at Discharge: Damir Ernst MD Consults: Surgery: Dr. Lo Primary Care Provider: Shakira Cruz MD Diagnoses at Discharge Discharge Diagnosis (1) Constipation: Status: Acute (2) Quadriplegia: Status: Chronic Permanent problem details: secondary to trauma (3) Neurogenic bladder: Status: Chronic (4) Sacral decubitus ulcer, stage IV: Status: Acute (5) Colostomy in place: Status: Acute Reason for Visit Reason for Visit: CONSTIPATION Brief History: History as per HPI: Rosanne Morales is a 47 year old female with past medical history of quadriplegia suprapubic catheter neurogenic bladder, ESBL E. coli UTI, Proteus mirabilis ESBL bacteremia, opioid induced chronic constipation,?Moderate to severe RIGHT hydroureteronephrosis. There is a 2 mm calcification at the UV junction, longterm resident Came in today with chief complaint of worsening constipation, she was recently discharged from the ER on lactulose after giving enemas, she had no significant improvement in constipation after lactulose, was complaining of generalized abdominal pain, nausea as well as vomiting. CT abdomen and pelvis done showed: Severe constipation. Her labs and vitals have been reviewed. Hospital Course Hospital Course Patient was admitted to hospital further evaluation and management of constipation and obstipation which has been going for at least 1 year on and off. Surgery was consulted. CT abdomen pelvis was done which showed significant constipation with colon dilatation over 6 centimeters. Patient is also numerous bowel regimen medications as an outpatient. Patient requested for colostomy for better quality of life. She underwent open colostomy formation on November 15. Her postoperative stay was uneventful. She has been discharged back to longterm on aggressive bowel regimen. She is to follow-up with surgery on November 25 for suture removal. Fleet enema is to be held for next 2 to 3 weeks. Physical Exam Const: COMMON NORMALS: patient oriented x3 and alert GENERAL APPEARANCE: cooperative ORIENTATION/CONSCIOUSNESS: Yes awake, Yes oriented to person, Yes oriented to place and Yes oriented to time HENMT: COMMON NORMALS: normocephalic and atraumatic HEAD & SCALP: normocephalic and atraumatic Resp: COMMON NORMALS: normal respiratory effort, No retractions, No use of accessory muscles and clear to auscultation bilaterally EFFORT & INSPECTION: Yes symmetric chest movement AUSCULTATION: clear to auscultation bilaterally Cardio: COMMON NORMALS: regular rate, regular rhythm, S1 normal heart sound present, S2 normal heart sound present, No gallops present (Cardio), No murmurs present (Cardio), No rub (Cardio) and Peripheral pulses 2+ throughout RATE: regular rate RHYTHM: regular rhythm HEART SOUNDS: S1 normal heart sound present and S2 normal heart sound present PERIPHERAL PULSES: Peripheral pulses 2+ throughout GI: COMMON NORMALS: Normal to inspection, nondistended, normoactive bowel sounds present, Soft to palpation, non-tender, No hepatosplenomegaly present and no masses AUSCULTATION: Yes normoactive bowel sounds and Yes Absent bowel sounds PALPATION: Yes Soft to palpation, Yes Tenderness to palpation present (GI), No Guarding due to palpation present (GI) and Yes No hepatosplenomegaly present PERCUSSION: tympanic to percussion RECTAL EXAM: deferred Extremity: COMMON NORMALS: normal to inspection, capillary refill normal, no clubbing, cyanosis or edema, no calf tenderness and no pedal edema Neuro: COMMON NORMALS: patient oriented x3 SENSORIUM/ORIENTATION: Yes alert, Yes oriented to person, Yes oriented to place and Yes oriented to time Skin: COMMON NORMALS: no rashes or lesions noted GENERAL SKIN EXAM: no rashes or lesions noted Urinary Catheter Management: Suprapubic: Cath Placed During This Visit: no Reason for Continuing Indwelling Catheter: Other Discharge Data Studies Completed and Pending Completed Studies During Hospitalization Category Date Time Status CT abdomen pelvis wo con [id number] Stat Cat Scan 11/13/22 11:04 Completed XR KUB portable [id number] Routine Exams 11/18/22 08:41 Completed Pending at discharge Category Date Time Status CBC Auto Diff [Complete Blood Count w/Auto] AM LABS Lab 11/19/22 04:00 Ordered CMP [Comprehensive Metabolic Panel] AM LABS Lab 11/19/22 04:00 Ordered SARS Covid-2 Antigen Routine Lab 11/18/22 14:28 Ordered Urinalysis Stat Lab 11/13/22 11:17 Ordered Radiology Impressions Abdomen/Pelvis CT 11/13/22 11:04 IMPRESSION: 1. Moderate to severe RIGHT hydroureteronephrosis. There is a 2 mm calcification at the UV junction. 2. Severe bilateral constipation and obstipation throughout the entire colon. 3. RIGHT adnexal cystic mass is been present on prior studies. Differential includes ovarian cyst, paraovarian cyst, mucocele or gastric diverticulum. 4. Normal appendix. KUB X-Ray 11/18/22 08:41 IMPRESSION: 1. Marked dilatation of the colon. The largest loop involves the right colon which measures 11.2 cm at greatest diameter. Large amount of stool visualized in the rectosigmoid region as well as the right colon. 2. No pneumoperitoneum. Postoperative changes. Laboratory Results WBC 5.8 10^3/uL (4.0-10.0) 11/18/22 04:07 RBC 4.22 10^6/uL (4.1-5.3) 11/18/22 04:07 Hgb 11.2 g/dL (11.5-15.3) L 11/18/22 04:07 Hct 37.3 % (37.0-47.0) 11/18/22 04:07 MCV 88.4 fl (81-99) 11/18/22 04:07 MCH 26.5 pg (28.0-34.0) L 11/18/22 04:07 MCHC 30.0 g/dL (30.0-36.0) 11/18/22 04:07 RDW 16.7 % (12.1-15.1) H 11/18/22 04:07 Plt Count 204 10^3/cmm (130-400) 11/18/22 04:07 MPV 10.4 fL (7.4-10.4) 11/18/22 04:07 Neut % (Auto) 64.7 % 11/18/22 04:07 Lymph % (Auto) 21.7 % 11/18/22 04:07 Irion % (Auto) 9.4 % 11/18/22 04:07 Eos % (Auto) 3.8 % 11/18/22 04:07 Baso % (Auto) 0.2 % 11/18/22 04:07 Neut # (Auto) 3.74 10^3/uL (1.8-7.7) 11/18/22 04:07 Lymph # (Auto) 1.3 10^3/uL (0.8-4.8) 11/18/22 04:07 Irion # (Auto) 0.5 10^3/uL (0.2-0.9) 11/18/22 04:07 Eos # (Auto) 0.2 10^3/uL (0.0-0.8) 11/18/22 04:07 Baso # (Auto) 0.0 10^3/uL (0.0-0.1) 11/18/22 04:07 Nucleated RBC % (auto) 0 % 11/18/22 04:07 Nucleated RBCs # 0.0 /100WBC 11/18/22 04:07 Sodium 137 mmol/L (136-145) 11/18/22 04:07 Potassium 3.3 mmol/L (3.5-5.1) L 11/18/22 04:07 Chloride 100 mmol/L (98-107) 11/18/22 04:07 Carbon Dioxide 25 mmol/L (22-29) 11/18/22 04:07 Anion Gap 15.3 (5-19) 11/18/22 04:07 BUN 13 mg/dL (6-20) 11/18/22 04:07 Creatinine 0.7 mg/dL (0.5-0.9) 11/18/22 04:07 GFR Calculation 89.7 mL/min (90-130) L 11/18/22 04:07 Glucose 125 mg/dL (65-115) H 11/18/22 04:07 POC Glucose 146 mg/dL (70-110) H 11/18/22 11:04 Calculated Osmolality 286 mOsm/kg (285-295) 11/18/22 04:07 Lactic Acid 1.9 mmol/L (0.5-2.2) 11/13/22 09:59 Calcium 8.8 mg/dL (8.5-10.5) 11/18/22 04:07 Total Bilirubin 0.2 mg/dL (0.15-1.2) 11/18/22 04:07 AST 18 U/L (0-32) 11/18/22 04:07 ALT 17 U/L (0-33) 11/18/22 04:07 Alkaline Phosphatase 82 U/L (35-105) 11/18/22 04:07 Total Protein 7.0 g/dL (6.6-8.7) 11/18/22 04:07 Albumin 3.4 g/dL (3.5-5.2) L 11/18/22 04:07 Globulin 3.6 g/dL (1.3-4.6) 11/18/22 04:07 Vitals Last Vital Signs Temp 97.6 F 11/18/22 11:28 Pulse 95 11/18/22 11:28 Resp 15 11/18/22 11:28 BP 116/81 11/18/22 11:28 Pulse Ox 96 11/18/22 11:28 O2 Del Method 11/18/22 11:28 O2 Flow Rate 2 11/18/22 08:00 Discharge Plan Discharge Patient Disposition: Xfer SNF Condition: Stable Prescriptions: New polyethylene glycol 3350 17 gram Powder In Packet 17 g PO DAILY Qty: 30 0RF Milk of Magnesia 400 mg/5 mL suspension 5 ml PO TID PRN (Reason: constipation) Qty: 355 0RF metoclopramide HCl [Reglan] 5 mg tablet 5 mg PO DAILY PRN (Reason: nausea and vomiting) Qty: 14 0RF Continued Linzess 145 mcg capsule 145 mcg PO DAILY ascorbic acid (vitamin C) [Vitamin C] 1,000 mg Tablet 1,000 mg PO BID@08,20 pantoprazole 40 mg Tablet,Delayed Release (Dr/Ec) 40 mg PO DAILY sennosides-docusate sodium [Senna Plus] 8.6-50 mg Tablet 2 tab PO BID@08,20 pravastatin 40 mg Tablet 40 mg PO BEDTIME naloxone 0.4 mg/mL Solution 0.4 mg IM Q2M PRN (Reason: overdose) acetaminophen 500 mg Tablet 500 mg PO Q6H PRN (Reason: Pain) simethicone 80 mg Tablet,Chewable 80 mg PO TIDWM fentanyl 50 mcg/hr Patch 72 Hour 1 patch TRANSDERMAL Q72H Qty: 5 0RF morphine concentrate 100 mg/5 mL (20 mg/mL) solution 5 mg PO Q4H PRN (Reason: Pain) Qty: 30 0RF alprazolam [Xanax] 0.25 mg Tablet 0.25 mg PO TID PRN (Reason: Anxiety) Qty: 10 0RF ondansetron HCl 4 mg Tablet 4 mg PO Q6H PRN (Reason: Nausea) Relistor 12 mg/0.6 mL Syringe 0.6 ml SUBCUT Q3D PRN (Reason: Constipation) gabapentin 600 mg tablet 1,200 mg PO TID docusate sodium [Colace] 100 mg Capsule 100 mg PO BID insulin lispro [Humalog KwikPen Insulin] 100 unit/mL Insulin Pen See Rx Instructions .ROUTE .COMPLEX Rx Instructions: SLIDING SCALE- BLOOD SUGAR 125-150 GIVE 2 UNITS, 151-200 GIVE 4 UNITS, 201-250 GIVE 6 UNITS, 251-300 GIVE 8 UNITS, 301-350 GIVE 10 UNITS, 351-400 GIVE 12 UNITS pregabalin [Lyrica] 50 mg Capsule 50 mg PO BID calcium carbonate [Tums Ultra] 400 mg calcium (1,000 mg) Tablet,Chewable 400 mg PO DAILY PRN (Reason: Heartburn) magnesium hydroxide [Milk of Magnesia] 400 mg/5 mL suspension 5 ml PO DAILY Qty: 355 0RF potassium chloride 20 mEq Tablet Extended Release 20 meq PO DAILY ketoconazole 2 % Cream 1 applic TOPICAL BID metformin 1,000 mg Tablet 1,000 mg PO BID lidocaine 5 % Adhesive Patch,Medicated 1 patch TOPICAL Q12H Rx Instructions: leave on most painful area for up to 12 hrs sertraline 50 mg Tablet 50 mg PO DAILY cyclobenzaprine 5 mg Tablet 5 mg PO TID PRN (Reason: Muscle Pain) diclofenac sodium 1 % Gel 2 g TOPICAL BID Rx Instructions: apply to single elbow, wrist or hand; for hand includes palm/fingers/back of hand lidocaine 4 % Cream 1 applic TOPICAL BID PRN (Reason: Pain) methenamine hippurate 1 gram Tablet 1 g PO BID oxybutynin chloride 5 mg Tablet 5 mg PO TID Januvia 25 mg Tablet 25 mg PO DAILY Rx Instructions: Give with 50 mg to equal 75 mg daily Januvia 50 mg Tablet 50 mg PO DAILY Rx Instructions: Give with 25 mg to equal 75 mg daily fosfomycin tromethamine 3 gram packet 3 g PO Q3D 30 Days Qty: 10 5RF nystatin 100,000 unit/mL Suspension 15 ml PO BID Rx Instructions: swish and swallow bisacodyl 10 mg Suppository 10 mg NH DAILY PRN (Reason: Constipation) Held Fleet Enema 19-7 gram/118 mL Enema 118 ml [place] DAILY PRN (Reason: Constipation) Hold Instructions: Resume on 12/09/22. Discharge Orders: Discharge Order (Routine); Ordered 11/18/22 Ordered By: Damir Ernst Referrals: [facility] [Outside] Andrew Lo DO [Physician] - 11/25/22 2:00 pm Shakira Cruz MD [Primary Care Provider] - 2 weeks Discharge Diet: Diabetic Discharge Activity: Resume usual activity and Increase activity as tolerated Patient Instructions: Magnesium Hydroxide (By mouth), Colostomy Care (GEN), Colectomy (GEN), Opioid Safety Activity Restrictions/Additional Instructions: Please do not use fleet enema for next 2-3 weeks. Continue aggressive bowel regimen. F/w Surgery in 1 week for suture removal. C/w colostomy care. Discharge Attestations Time Spent in Discharge Care*: greater than 30 min Specific Discharge Activities: educating patient, discussing with pcp/other providers, discussing with rehabilitation case coordinator/social workers/dc planners, documenting/other paperwork and evaluating patient/reviewing data Status at Discharge: Cognitive status at discharge: cognitively intact, Behavioral status at discharge: cooperative, Functional status at discharge: bed bound, Overall status at discharge: patient is progressing back to baseline Quality Metrics Clinical Quality Measures [ No reported AMI, CVA or VTE this stay] Coding Level of Care Code Acute Chg FW DC note History Comprehensive Exam Comprehensive Medical Decision Making High Complexity Diagnoses Constipation K59.00 Quadriplegia G82.50 Neurogenic bladder N31.9 Sacral decubitus ulcer, stage IV L89.[address] Z93.3
[2022-11-18 15:13] LABS: SARS Covid-2 Antigen negative (Negative)
[2022-11-18] MEDS: HYDROcodone-APAP 7.5-325 mg/15 mL UDC 7.5 ML PO (16:52)
[2022-11-18] MEDS: enoxaparin 40 mg/0.4 mL Syringe SUBCUT (16:52)
[2022-11-18 17:03] LABS: Glucose Point of Care 109 mg/dL (70-110)
--- NOTE | 2022-11-18 17:05 | PC.NURSE ---
Report called to [facility] given to Rosio. All questions answered.
== END 2022-11-18 18:33 | disposition skilled nursing facility (03) | DRG 329 ==
LOC: ER 10:34 → MEDSURG 14:45
PROVIDERS: Surgery; Admitting Provider Internal Medicine; Emergency Provider Family Medicine; PCP Family Medicine; Visit Provider Student in an Organized Health Care Education/Training Program
PROC: 0D1N0Z4 Bypass Sigmoid Colon to Cutaneous, Open Approach (ICD-10-PCS; CPT 44320; principal; 2022-11-15 08:30)
DX: K59.03 Drug induced constipation (principal); G82.50 Quadriplegia, unspecified; L89.154 Pressure ulcer of sacral region, stage 4; N13.39 Other hydronephrosis; T40.2X5A Adverse effect of other opioids, initial encounter; N31.9 Neuromuscular dysfunction of bladder, unspecified; E11.22 Type 2 diabetes mellitus with diabetic chronic kidney disease; N18.9 Chronic kidney disease, unspecified; E78.5 Hyperlipidemia, unspecified; E11.51 Type 2 diabetes mellitus with diabetic peripheral angiopathy without gangrene; Z96.0 Presence of urogenital implants; Z79.4 Long term (current) use of insulin; Z79.84 Long term (current) use of oral hypoglycemic drugs; Z86.19 Personal history of other infectious and parasitic diseases; Z87.440 Personal history of urinary (tract) infections; Z90.49 Acquired absence of other specified parts of digestive tract; Z90.6 Acquired absence of other parts of urinary tract; Z87.828 Personal history of other (healed) physical injury and trauma; Z79.891 Long term (current) use of opiate analgesic
CPT/HCPCS: 36415; 36416; 74018; 74176; 80048; 80053; 82962; 83605; 85025; 87426; 96372; 99285; J0694; J1100; J1170; J1650; J1815; J1885; J2250; J2405; J2704; J2710; J2765; J3010; J3490; J7030; J7120

== ENCOUNTER → 2022-11-20 15:24 | Outpatient (BNVA) | payer MEDICARE, SELFPAY | PROVIDERS: PCP Family Medicine; Visit Provider Thoracic Surgery (Cardiothoracic Vascular Surgery) | DX: L89.154 Pressure ulcer of sacral region, stage 4 (principal) ==

== ENCOUNTER 2022-11-22 11:58 | Inpatient (IN) | payer MEDICARE, SELFPAY ==
[2022-11-22] VITALS (15 sets, daily range): BP systolic 86–168; BP diastolic 69–104; PULSE 108–134; RESP 11–31; TEMP 37.3–38.6; O2SAT 93–100; BMI 22.3
--- NOTE | 2022-11-22 12:08 | W.ED.ABDPA2 ---
HPI - Abdominal Pain General: Chief Complaint: Abdominal Pain Stated Complaint: ABD PAIN Time Seen by Provider: 11/22/22 11:58 Source: patient and EMS Mode of arrival: EMS Limitations: no limitations History of Present Illness: 47-year-old female who had abdominal surgery roughly a week and a half ago where she had a colostomy placed due to chronic constipation she states that ever since surgery she has been having worsening abdominal pain she has had pain today to 9 out of 10 she denies any fevers she denies any worsening factors. She denies any improving factors she has had no vomiting. Associated Symptoms: Denies chills, diarrhea, dysuria, fever(s), nausea and vomiting Review of Systems Const: Denies: fever(s), chills, body aches or change in appetite Eyes: Denies: blurry vision or eye discomfort ENMT: Denies: throat pain or dental pain Card: Denies: chest pain Resp: Denies: dyspnea GI: Reports: abdominal pain; Denies: nausea, vomiting or diarrhea : Denies: dysuria Musc: Denies: neck pain or back pain Skin/Breast: Denies: rash Neuro: Denies: headache(s) Psych: Denies: depression Raul/Lymph: Denies: easy bruising All/Imm: Denies: urticaria PFSH ED PFSH: Medical History Anxiety Chronic kidney disease Colostomy in place COVID-19 (~2019) Depression Diabetes mellitus, type II GERD (gastroesophageal reflux disease) History of ESBL E. coli infection Hydronephrosis Hyperlipidemia retirement prescription opiate use Neurogenic bladder Neuropathic pain PVD (peripheral vascular disease) Quadriplegia secondary to trauma Recurrent sepsis due to urinary tract infection Sacral decubitus ulcer Sacral decubitus ulcer, stage IV Suprapubic catheter Therapeutic opioid induced constipation Urinary retention Surgical History H/O bladder repair surgery H/O cystoscopy H/O partial cystectomy H/O Spinal surgery History of hysterectomy History of partial gastrectomy (12/2019) due to perforated viscous from gastric ulcer Family History Other CAD (coronary artery disease) Diabetes Hypertension Social History Smoking and tobacco status: never smoked Alcohol intake: never Housing: [facility]iary Marital status: Current occupational status: disabled Physical Exam Const: COMMON NORMALS: patient oriented x3 HENMT: COMMON NORMALS: normocephalic and atraumatic HEAD & SCALP: normocephalic and atraumatic Eye: COMMON NORMALS: Equal, round and reactive pupils present and EOMs intact bilaterally PUPIL: Yes Equal, round and reactive pupils present Neck/C-Spine: COMMON NORMALS: full ROM and supple Chest: COMMONS NORMALS: normal inspection of the chest and normal palpation of entire chest wall Resp: COMMON NORMALS: normal respiratory effort, No retractions, No use of accessory muscles and clear to auscultation bilaterally AUSCULTATION: clear to auscultation bilaterally Cardio: COMMON NORMALS: regular rate, regular rhythm and No murmurs present (Cardio) RATE: regular rate RHYTHM: regular rhythm GI: COMMON NORMALS: no masses OTHER: Diffuse tenderness abdomen is distended incisions clean dry intact. Extremity: COMMON NORMALS: normal to inspection and full ROM Neuro: COMMON NORMALS: patient oriented x3, moves all extremities and no focal motor deficits Psych: COMMON NORMALS: mental status grossly normal, Normal thought process present and cooperative THOUGHT PROCESS: Normal thought process present Skin: COMMON NORMALS: no rashes or lesions noted and no wounds GENERAL SKIN EXAM: no rashes or lesions noted Course Vital Signs: Vital signs: Vital Signs Temperature 99.2 F 11/22/22 12:02 Pulse Rate 134 H 11/22/22 12:02 Respiratory Rate 21 H 11/22/22 12:02 Blood Pressure 158/83 11/22/22 12:02 Pulse Oximetry 96 11/22/22 12:02 Oxygen Delivery Me thod 11/22/22 12:02 MDM - Abdominal Pain Medical Decision Making Patient presents with abdominal pain CT shows bowel obstruction I did speak to surgeon Dr. Lo who is seen patient is gone take her to the OR to revise her colostomy patient Antibiotics here. Lab Data 11/22/22 14:08 11/22/22 14:08 Labs/Radiology: Radiology Impressions Abdomen/Pelvis CT 11/22/22 12:11 IMPRESSION: 1. Interval partial sigmoid resection. The distal descending colon appears blind-ending without evidence of ostomy at this location. There is worsening distention of the colon proximal to this location with air-fluid levels compatible with colonic obstruction. There is worsening distal small bowel dilatation likely reflecting associated small bowel obstruction. 2. The distal colorectal limb extends to a colostomy site in the left abdomen. 3. Worsened thickening of the appendix measuring up to 1.2 cm. This may relate to colonic obstruction. There is minimal adjacent stranding/fluid. Early appendicitis is not excluded. Correlate clinically. 4. Fluid collection in the anterior left abdomen near ostomy site that could reflect abscess/developing abscess. 5. There are stones in the dependent bladder. The bladder wall is thickened. Correlate with urinalysis to assess for cystitis. 6. Indeterminate left adrenal nodule. Recommend nonemergent MR abdomen to better characterize. 7. Consolidation at the right base may reflect atelectasis or pneumonia. 8. Trace right pleural effusion. 9. Coronary artery disease. 10. Mild free fluid. COMMENTS: Consistent with the [employer]'s Incidental Findings Committee white paper (J Am Karine Radiol 2018): Any incidental renal lesion less than 1 cm or classified as too small to characterize, or any incidental cystic renal lesion characterized as simple-appearing, is likely benign. No follow-up imaging is recommended for these lesions per consensus recommendations based on imaging criteria. ADDENDUM: 11/22/22 1306 Findings discussed with QUOC MELCHOR at 11/22/2022 1:02 PM PODIATRIC AIDE. Laboratory Results WBC 13.9 10^3/uL (4.0-10.0) H 11/22/22 14:08 RBC 5.28 10^6/uL (4.1-5.3) 11/22/22 14:08 Hgb 14.2 g/dL (11.5-15.3) 11/22/22 14:08 Hct 46.0 % (37.0-47.0) 11/22/22 14:08 MCV 87.1 fl (81-99) 11/22/22 14:08 MCH 26.9 pg (28.0-34.0) L 11/22/22 14:08 MCHC 30.9 g/dL (30.0-36.0) 11/22/22 14:08 RDW 16.6 % (12.1-15.1) H 11/22/22 14:08 Plt Count 425 10^3/cmm (130-400) H 11/22/22 14:08 MPV 9.8 fL (7.4-10.4) 11/22/22 14:08 Neut % (Auto) 76.9 % 11/22/22 14:08 Lymph % (Auto) 11.0 % 11/22/22 14:08 Elk % (Auto) 11.2 % 11/22/22 14:08 Eos % (Auto) 0.0 % 11/22/22 14:08 Baso % (Auto) 0.4 % 11/22/22 14:08 Neut # (Auto) 10.67 10^3/uL (1.8-7.7) H 11/22/22 14:08 Lymph # (Auto) 1.5 10^3/uL (0.8-4.8) 11/22/22 14:08 Elk # (Auto) 1.6 10^3/uL (0.2-0.9) H 11/22/22 14:08 Eos # (Auto) 0.0 10^3/uL (0.0-0.8) 11/22/22 14:08 Baso # (Auto) 0.1 10^3/uL (0.0-0.1) 11/22/22 14:08 Nucleated RBC % (auto) 0 % 11/22/22 14:08 Nucleated RBCs # 0.0 /100WBC 11/22/22 14:08 Discharge Plan Discharge Patient Disposition: Admitted As Inpatient Clinical Impression: Abdominal pain, Small bowel obstruction Condition: Stable Prescriptions: No Action Linzess 145 mcg capsule 145 mcg PO DAILY ascorbic acid (vitamin C) [Vitamin C] 1,000 mg Tablet 1,000 mg PO BID@, pantoprazole 40 mg Tablet,Delayed Release (Dr/Ec) 40 mg PO DAILY sennosides-docusate sodium [Senna Plus] 8.6-50 mg Tablet 2 tab PO BID@08,20 pravastatin 40 mg Tablet 40 mg PO BEDTIME naloxone 0.4 mg/mL Solution 0.4 mg IM Q2M PRN (Reason: overdose) acetaminophen 500 mg Tablet 500 mg PO Q6H PRN (Reason: Pain) simethicone 80 mg Tablet,Chewable 80 mg PO TIDWM fentanyl 50 mcg/hr Patch 72 Hour 1 patch TRANSDERMAL Q72H Qty: 5 0RF morphine concentrate 100 mg/5 mL (20 mg/mL) solution 5 mg PO Q4H PRN (Reason: Pain) Qty: 30 0RF alprazolam [Xanax] 0.25 mg Tablet 0.25 mg PO TID PRN (Reason: Anxiety) Qty: 10 0RF ondansetron HCl 4 mg Tablet 4 mg PO Q6H PRN (Reason: Nausea) Relistor 12 mg/0.6 mL Syringe 0.6 ml SUBCUT Q3D PRN (Reason: Constipation) gabapentin 600 mg tablet 1,200 mg PO TID docusate sodium [Colace] 100 mg Capsule 100 mg PO BID insulin lispro [Humalog KwikPen Insulin] 100 unit/mL Insulin Pen See Rx Instructions .ROUTE .COMPLEX Rx Instructions: SLIDING SCALE- BLOOD SUGAR 125-150 GIVE 2 UNITS, 151-200 GIVE 4 UNITS, 201-250 GIVE 6 UNITS, 251-300 GIVE 8 UNITS, 301-350 GIVE 10 UNITS, 351-400 GIVE 12 UNITS pregabalin [Lyrica] 50 mg Capsule 50 mg PO BID calcium carbonate [Tums Ultra] 400 mg calcium (1,000 mg) Tablet,Chewable 400 mg PO DAILY PRN (Reason: Heartburn) potassium chloride 20 mEq Tablet Extended Release 20 meq PO DAILY ketoconazole 2 % Cream 1 applic TOPICAL BID polyethylene glycol 3350 17 gram Powder In Packet 17 g PO DAILY Qty: 30 0RF magnesium hydroxide [Milk of Magnesia] 400 mg/5 mL suspension 5 ml PO TID PRN (Reason: constipation) Qty: 355 0RF metoclopramide HCl [Reglan] 5 mg tablet 5 mg PO DAILY PRN (Reason: nausea and vomiting) Qty: 14 0RF oxycodone-acetaminophen 5-325 mg Tablet 1 - 2 tab PO Q6H PRN (Reason: Pain) hydroxyzine HCl 25 mg Tablet 50 mg PO Q6H PRN (Reason: Anxiety) metformin 1,000 mg Tablet 1,000 mg PO BID lidocaine 5 % Adhesive Patch,Medicated 1 patch TOPICAL Q12H Rx Instructions: leave on most painful area for up to 12 hrs sertraline 50 mg Tablet 50 mg PO DAILY cyclobenzaprine 5 mg Tablet 5 mg PO TID PRN (Reason: Muscle Pain) diclofenac sodium 1 % Gel 2 g TOPICAL BID PRN (Reason: Pain) Rx Instructions: apply to single elbow, wrist or hand; for hand includes palm/fingers/back of hand lidocaine 4 % Cream 1 applic TOPICAL BID PRN (Reason: Pain) methenamine hippurate 1 gram Tablet 1 g PO BID oxybutynin chloride 5 mg Tablet 5 mg PO TID Januvia 25 mg Tablet 25 mg PO DAILY Rx Instructions: Give with 50 mg to equal 75 mg daily Januvia 50 mg Tablet 50 mg PO DAILY Rx Instructions: Give with 25 mg to equal 75 mg daily fosfomycin tromethamine 3 gram packet 3 g PO Q3D 30 Days Qty: 10 5RF bisacodyl 10 mg Suppository 10 mg [place] DAILY PRN (Reason: Constipation) Referrals: Shakira Cruz MD [Primary Care Provider] - Coding Level of Care Code ED Terry Cloth Cutter Hand for Chg Fwd Exam Comprehensive
--- NOTE | 2022-11-22 12:11 | CTR_ITS ---
PROCEDURE INFORMATION: Exam: CT Abdomen And Pelvis With Contrast Exam date and time: 11/22/2022 12:20 PM Age: 47 years old Clinical indication: Abdominal pain. Prior colon surgery, hysterectomy and cholecystectomy. TECHNIQUE: Imaging protocol: Computed tomography of the abdomen and pelvis with contrast. Radiation optimization: All CT scans at this facility use at least one of these dose optimization techniques: automated exposure control; mA and/or kV adjustment per patient size (includes targeted exams where dose is matched to clinical indication); or iterative reconstruction. Contrast material: OMNI 350; Contrast volume: 100 ml; Contrast route: INTRAVENOUS (IV); Other protocol: This patient has received 15 known CTs and 0 known cardiac nuclear medicine studies in the 12 months prior to the current study. COMPARISON: CT abdomen pelvis wo con [id number] 11/13/2022 11:31 AM RADIATION DOSE METRICS: Total DLP (mGy-cm): 886.32 FINDINGS: Tubes, catheters and devices: A suprapubic catheter is noted. Lungs: Consolidation at the right base may reflect atelectasis or pneumonia. Subsegmental atelectasis or scarring at the left base. Trace right pleural effusion. Coronary arterial calcifications are seen. No pericardial effusion. No hiatal hernia. Diaphragm: The dome of the right hemidiaphragm is not included on the current study. Liver: No focal hepatic lesion is identified. Gallbladder and bile ducts: The gallbladder is unremarkable. Pancreas: The pancreas is unremarkable. Spleen: The spleen is unremarkable. Adrenal glands: Indeterminate left adrenal nodule measuring 2.0 cm. Kidneys and ureters: A simple right renal cyst measures 1.1 cm. Nonobstructive left renal stones. No hydronephrosis. Stomach and bowel: The stomach and small bowel are unremarkable. There has been prior partial sigmoid resection. The distal descending colon appears blind-ending without evidence of ostomy at this location. There is worsening distention of the colon proximal to this location with air-fluid levels compatible with colonic obstruction. There is worsening distal small bowel dilatation likely reflecting associated small bowel obstruction. The distal colorectal limb extends to a colostomy site in the left abdomen. Fluid collection in the anterior left abdomen near ostomy site measuring 4.4 x 2.2 x 3.5 cm. Appendix: Worsened thickening of the appendix measuring up to 1.2 cm. This may relate to colonic obstruction. There is minimal adjacent stranding/fluid. Early appendicitis is not excluded. Correlate clinically. Intraperitoneal space: No free intraperitoneal air is seen. Mild free fluid. Mild free fluid. Vasculature: No abdominal aortic aneurysm. Lymph nodes: No retroperitoneal lymphadenopathy. Urinary bladder: There are stones in the dependent bladder. The bladder wall is thickened. Correlate with urinalysis to assess for cystitis. Reproductive: Status post hysterectomy. Bones/joints: No acute fracture is identified. Soft tissues: Ventral abdominal staple line. CT/CT abdomen pelvis w con* [id number] IMPRESSION: 1. Interval partial sigmoid resection. The distal descending colon appears blind-ending without evidence of ostomy at this location. There is worsening distention of the colon proximal to this location with air-fluid levels compatible with colonic obstruction. There is worsening distal small bowel dilatation likely reflecting associated small bowel obstruction. 2. The distal colorectal limb extends to a colostomy site in the left abdomen. 3. Worsened thickening of the appendix measuring up to 1.2 cm. This may relate to colonic obstruction. There is minimal adjacent stranding/fluid. Early appendicitis is not excluded. Correlate clinically. 4. Fluid collection in the anterior left abdomen near ostomy site that could reflect abscess/developing abscess. 5. There are stones in the dependent bladder. The bladder wall is thickened. Correlate with urinalysis to assess for cystitis. 6. Indeterminate left adrenal nodule. Recommend nonemergent MR abdomen to better characterize. 7. Consolidation at the right base may reflect atelectasis or pneumonia. 8. Trace right pleural effusion. 9. Coronary artery disease. 10. Mild free fluid. COMMENTS: Consistent with the [employer]'s Incidental Findings Committee white paper (J Am Karine Radiol 2018): Any incidental renal lesion less than 1 cm or classified as too small to characterize, or any incidental cystic renal lesion characterized as simple-appearing, is likely benign. No follow-up imaging is recommended for these lesions per consensus recommendations based on imaging criteria.
[2022-11-22] MEDS: iohexol 350 mg/mL 500 mL Btl (per mL) IV (12:24)
[2022-11-22] MEDS: ondansetron 2 mg/ML SDV 2 mL 4 MG IVP (12:36)
[2022-11-22] MEDS: HYDROmorphone 1 mg/mL INJ 1 mL IVP (12:36)
[2022-11-22] MEDS: sodium chloride 0.9% 500 ML IV (12:37)
[2022-11-22] MEDS: LORazepam 2 mg/mL INJ 1 mL 1 MG IVP (12:39)
[2022-11-22 14:18] LABS: Basophils # 0.1 10^3/uL (0.0-0.1); Basophils % 0.4 %; Hemoglobin 14.2 g/dL (11.5-15.3); Lymphocytes # 1.5 10^3/uL (0.8-4.8); Mean Corpuscular HGB Conc 30.9 g/dL (30.0-36.0); Mean Corpuscular Hemoglobin 26.9 pg (28.0-34.0); Mean Corpuscular Volume 87.1 fl (81-99); Mean Platelet Volume 9.8 fL (7.4-10.4); Monocytes # 1.6 10^3/uL (0.2-0.9); Monocytes % 11.2 %; Neutrophils # 10.67 10^3/uL (1.8-7.7); Neutrophils % 76.9 %; Nucleated Red Blood Cells % 0 %; Platelet Count 425 10^3/cmm (130-400); Red Blood Count 5.28 10^6/uL (4.1-5.3); Red Cell Distribution Width 16.6 % (12.1-15.1); White Blood Count 13.9 10^3/uL (4.0-10.0)
[2022-11-22 14:46] LABS: Lactate (Lactic Acid level) 2.5 mmol/L (0.5-2.2)
[2022-11-22 14:47] LABS: Alanine Aminotransferase 10 U/L (0-33); Albumin Level 3.6 g/dL (3.5-5.2); Alkaline Phosphatase 79 U/L (35-105); Blood Urea Nitrogen 17 mg/dL (6-20); Calcium 9.3 mg/dL (8.5-10.5); Carbon Dioxide 19 mmol/L (22-29); Chloride 93 mmol/L (98-107); Globulin 4.5 g/dL (1.3-4.6); Glomerular Filtration Rate 76.9 mL/min (90-130); Glucose 144 mg/dL (65-115); Lipase 16 U/L (13-60); Osmolality Calculated 270 mOsm/kg (285-295); Sodium 128 mmol/L (136-145); Total Bilirubin 0.2 mg/dL (0.15-1.2); Total Protein 8.1 g/dL (6.6-8.7)
[2022-11-22 14:50] LABS: Anion Gap 20.2 (5-19)
[2022-11-22 14:51] LABS: Aspartate Amino Transferase 14 U/L (0-32); Potassium 4.2 mmol/L (3.5-5.1)
--- NOTE | 2022-11-22 15:25 | ANES.PREANE2 ---
Pre-Anesthetic Assessment Height/Weight: Height 1.63 m Weight 58.967 kg Temp Pulse Resp BP Pulse Ox O2 Del Method O2 Flow Rate 101.5 F H 132 H 16 137/102 93 3 11/22/22 15:15 11/22/22 15:15 11/22/22 15:15 11/22/22 15:15 11/22/22 15:15 11/22/22 15:15 11/22/22 15:15 Preop Diagnosis: Chronic neurogenic bladder with recent SP tube placement Operation Date: 11/22/22 16:00 Proposed Procedures p Colostomy Revision(Not Applicable) - Andrew Lo DO Familial anesthetic complications: none Was Beta Rolando taken within 24 hours: N/A Was Clonidine taken within 24 hours: N/A Last intake: > 8hrs Social No alcohol and No tobacco Exam alert, oriented x 3, clear to auscultation bilaterally and regular rate & rhythm Airway Mallampati: Class IV Dentition: other (no teeth) Comments: Comments: hx tracheostomy (reversed 4 years ago), review of past records shows LMA 4 placed with no issues, unable to find previous intubation attempts here at [facility] Chronic Renal Insufficiency GI Gastroesophageal Reflux Disease Metabolic Diabetes Mellitus, Hyperlipidemia and Morbid Obesity Neuropsych quadriplegia Anesthetic Plan ASA status: 4 Anesthesia: General Risk of > 500 ml blood loss (7ml/kg in children): No Medications/Allergies Home Medications Medication Instructions Recorded Confirmed Last Taken Type ascorbic acid (vitamin C) 1,000 mg 1,000 mg PO BID@08,04/22/20 11/22/22 11/22/22 History tablet (Vitamin C) pantoprazole 40 mg tablet,delayed 40 mg PO DAILY 04/22/20 11/22/22 11/22/22 History release sennosides 8.6 mg-docusate sodium 2 tab PO BID@08,05/28/20 11/22/22 11/22/22 History 50 mg tablet (Senna Plus) alprazolam 0.25 mg tablet (Xanax) 0.25 mg PO TID PRN Anxiety #10 tabs 11/22/20 11/22/22 11/20/22 Rx fentanyl 50 mcg/hr transdermal 1 patch transdermal Q72H #5 ea 11/22/20 11/22/22 11/20/22 Rx patch morphine concentrate 100 mg/5 mL 5 mg (0.25 mL) PO Q4H PRN Pain #30 11/22/20 11/22/22 11/11/22 Rx (20 mg/mL) oral solution mL acetaminophen 500 mg tablet 500 mg PO Q6H PRN Pain 08/17/21 11/22/22 11/20/22 History naloxone 0.4 mg/mL injection 0.4 mg IM Q2M PRN overdose 08/17/21 11/22/22 Unknown History solution pravastatin 40 mg tablet 40 mg PO BEDTIME 08/17/21 11/22/22 11/21/22 History simethicone 80 mg chewable tablet 80 mg PO TIDWM 08/17/21 11/22/22 11/22/22 History methylnaltrexone 12 mg/0.6 mL 0.6 ml SUBCUT Q3D PRN Constipation 01/24/22 11/22/22 11/11/22 History subcutaneous syringe (Relistor) ondansetron HCl 4 mg tablet 4 mg PO Q6H PRN Nausea 01/24/22 11/22/22 11/07/22 History docusate sodium 100 mg capsule 100 mg PO BID 02/11/22 11/22/22 11/22/22 History (Colace) gabapentin 600 mg tablet 1,200 mg PO TID 02/11/22 11/22/22 11/22/22 History calcium carbonate 400 mg calcium 400 mg PO DAILY PRN Heartburn 03/06/22 11/22/22 06/03/22 History (1,000 mg) chewable tablet (Tums Ultra) insulin lispro 100 unit/mL See Rx Instructions .Route .COMPLEX 03/06/22 11/22/22 11/13/22 History subcutaneous pen (Humalog KwikPen (U-100) Insulin) pregabalin 50 mg capsule (Lyrica) 50 mg PO BID 03/06/22 11/22/22 11/22/22 History potassium chloride 20 mEq 20 meq PO DAILY 03/28/22 11/22/22 11/22/22 History tablet,extended release lidocaine 5 % topical patch 1 patch topical Q12H 05/12/22 11/22/22 11/22/22 History metformin 1,000 mg tablet 1,000 mg PO BID 05/12/22 11/22/22 11/22/22 History sertraline 50 mg tablet 50 mg PO DAILY 05/12/22 11/22/22 11/21/22 History linaclotide 145 mcg capsule 145 mcg PO DAILY 07/31/22 11/22/22 11/22/22 History (Sharrizess) cyclobenzaprine 5 mg tablet 5 mg PO TID PRN Muscle Pain 10/21/22 11/22/22 11/11/22 History diclofenac sodium 1 % topical gel 2 g topical BID PRN Pain 10/21/22 11/22/22 11/12/22 History lidocaine 4 % topical cream 1 applic topical BID PRN Pain 10/21/22 11/22/22 Unknown History methenamine hippurate 1 gram tablet 1 g PO BID 10/21/22 11/22/22 11/22/22 History oxybutynin chloride 5 mg tablet 5 mg PO TID 10/21/22 11/22/22 11/22/22 History sitagliptin phosphate 25 mg tablet 25 mg PO DAILY 10/21/22 11/22/22 11/22/22 History (Januvia) sitagliptin phosphate 50 mg tablet 50 mg PO DAILY 10/21/22 11/22/22 11/22/22 History (Januvia) fosfomycin tromethamine 3 gram 3 g PO Q3D 30 days #10 ea 10/26/22 11/22/22 11/20/22 Rx oral packet bisacodyl 10 mg rectal suppository 10 mg [place] DAILY PRN Constipation 11/11/22 11/22/22 11/10/22 History ketoconazole 2 % topical cream 1 applic topical BID 11/13/22 11/22/22 11/13/22 History magnesium hydroxide 400 mg/5 mL 5 ml PO TID PRN constipation #355 11/18/22 11/22/22 Unknown Rx oral suspension (Milk of Magnesia) mL metoclopramide HCl 5 mg tablet 5 mg PO DAILY PRN nausea and 11/18/22 11/22/22 11/20/22 Rx (Reglan) vomiting #14 tabs polyethylene glycol 3350 17 gram 17 g PO DAILY #30 ea 11/18/22 11/22/22 11/22/22 Rx oral powder packet hydroxyzine HCl 25 mg tablet 50 mg PO Q6H PRN Anxiety 11/22/22 11/22/22 Unknown History oxycodone-acetaminophen 5 mg-325 1 - 2 tab PO Q6H PRN Pain 11/22/22 11/22/22 Unknown History mg tablet Allergies Allergy/AdvReac Type Severity Reaction Status Date / Time No Known Allergies Allergy Verified 11/20/22 17:34 PFSH Anesthesia Medical History Anxiety Chronic kidney disease Colostomy in place COVID-19 (~2019) Depression Diabetes mellitus, type II GERD (gastroesophageal reflux disease) History of ESBL E. 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 Neurogenic bladder Neuropathic pain PVD (peripheral vascular disease) Quadriplegia secondary to trauma Recurrent sepsis due to urinary tract infection Sacral decubitus ulcer Sacral decubitus ulcer, stage IV Suprapubic catheter Therapeutic opioid induced constipation Urinary retention Surgical History H/O bladder repair surgery H/O cystoscopy H/O partial cystectomy H/O Spinal surgery History of hysterectomy History of partial gastrectomy (12/2019) due to perforated viscous from gastric ulcer Family History Other CAD (coronary artery disease) Diabetes Hypertension Social History Smoking and tobacco status: never smoked Alcohol intake: never Housing: Shelter Marital status: Current occupational status: disabled Data Anesthesia 11/22/22 14:08 11/22/22 14:08 Short CBC 11/22/22 Range/Units 14:08 WBC 13.9 H (4.0-10.0) 10^3/uL Hgb 14.2 (11.5-15.3) g/dL Hct 46.0 (37.0-47.0) % MCV 87.1 (81-99) fl Plt Count 425 H (130-400) 10^3/cmm Neut % (Auto) 76.9 % Neut # (Auto) 10.67 H (1.8-7.7) 10^3/uL BMP 11/22/22 14:08 Sodium 128 L Potassium 4.2 Chloride 93 L Carbon Dioxide 19 L BUN 17 Creatinine 0.8 Glucose 144 H Calcium 9.3 Liver Function 11/22/22 Range/Units 14:08 Total Bilirubin 0.2 (0.15-1.2) mg/dL AST 14 (0-32) U/L ALT 10 (0-33) U/L Alkaline Phosphatase 79 (35-105) U/L Albumin 3.6 (3.5-5.2) g/dL Cardiac Studies: No Data to Display
[2022-11-22] MEDS: acetaminophen 1,000 MG/100 ML PIGGYBACK 400 MG IV (16:14)
[2022-11-22] MEDS: fentaNYL 50 mcg/mL INJ 2mL IVP (17:37)
--- NOTE | 2022-11-22 18:04 | P.HP_ITS ---
Providers/Chief Complaint Primary Care Provider: Shakira Cruz MD Chief Complaint: ABD PAIN History of Present Illness Rosanne Morales is a 47 year old female who presented to the hospital with new onset abdominal pain. She was recently in the hospital and underwent an open colostomy formation for quality of life due to her quadriplegia. She reports her abdominal pain is diffuse and constant. Due to her quadriplegia she is usha ble to characterize her pain more than that. She reports some some nausea but denies any emesis. She has had adequate colostomy output since surgery. CT was performed in the ER is concerning for colonic obstruction possible appendicitis, small bowel obstruction and fluid collection in the left anterior abdomen near the colostomy. Review of Systems General: Reports: 10 or more systems reviewed and unremarkable except in HPI and below Medications/Allergies Home Medications Medication Instructions Recorded Confirmed Last Taken Type ascorbic acid (vitamin C) 1,000 mg 1,000 mg PO BID@08,20 04/22/20 11/22/22 11/22/22 History tablet (Vitamin C) pantoprazole 40 mg tablet,delayed 40 mg PO DAILY 04/22/20 11/22/22 11/22/22 History release sennosides 8.6 mg-docusate sodium 2 tab PO BID@08,20 05/28/20 11/22/22 11/22/22 History 50 mg tablet (Senna Plus) alprazolam 0.25 mg tablet (Xanax) 0.25 mg PO TID PRN Anxiety #10 tabs 11/22/20 11/22/22 11/20/22 Rx fentanyl 50 mcg/hr transdermal 1 patch transdermal Q72H #5 ea 11/22/20 11/22/22 11/20/22 Rx patch morphine concentrate 100 mg/5 mL 5 mg (0.25 mL) PO Q4H PRN Pain #30 11/22/20 11/22/22 11/11/22 Rx (20 mg/mL) oral solution mL acetaminophen 500 mg tablet 500 mg PO Q6H PRN Pain 08/17/21 11/22/22 11/20/22 History naloxone 0.4 mg/mL injection 0.4 mg IM Q2M PRN overdose 08/17/21 11/22/22 Unknown History solution pravastatin 40 mg tablet 40 mg PO BEDTIME 08/17/21 11/22/22 11/21/22 History simethicone 80 mg chewable tablet 80 mg PO TIDWM 08/17/21 11/22/22 11/22/22 History methylnaltrexone 12 mg/0.6 mL 0.6 ml SUBCUT Q3D PRN Constipation 01/24/22 11/22/22 11/11/22 History subcutaneous syringe (Relistor) ondansetron HCl 4 mg tablet 4 mg PO Q6H PRN Nausea 01/24/22 11/22/22 11/07/22 History docusate sodium 100 mg capsule 100 mg PO BID 02/11/22 11/22/22 11/22/22 History (Colace) gabapentin 600 mg tablet 1,200 mg PO TID 02/11/22 11/22/22 11/22/22 History calcium carbonate 400 mg calcium 400 mg PO DAILY PRN Heartburn 03/06/22 11/22/22 06/03/22 History (1,000 mg) chewable tablet (Tums Ultra) insulin lispro 100 unit/mL See Rx Instructions .Route .COMPLEX 03/06/22 11/22/22 11/13/22 History subcutaneous pen (Humalog KwikPen (U-100) Insulin) pregabalin 50 mg capsule (Lyrica) 50 mg PO BID 03/06/22 11/22/22 11/22/22 History potassium chloride 20 mEq 20 meq PO DAILY 03/28/22 11/22/22 11/22/22 History tablet,extended release lidocaine 5 % topical patch 1 patch topical Q12H 05/12/22 11/22/22 11/22/22 History metformin 1,000 mg tablet 1,000 mg PO BID 05/12/22 11/22/22 11/22/22 History sertraline 50 mg tablet 50 mg PO DAILY 05/12/22 11/22/22 11/21/22 History linaclotide 145 mcg capsule 145 mcg PO DAILY 07/31/22 11/22/22 11/22/22 History (Linzess) cyclobenzaprine 5 mg tablet 5 mg PO TID PRN Muscle Pain 10/21/22 11/22/22 11/11/22 History diclofenac sodium 1 % topical gel 2 g topical BID PRN Pain 10/21/22 11/22/22 11/12/22 History lidocaine 4 % topical cream 1 applic topical BID PRN Pain 10/21/22 11/22/22 Unknown History methenamine hippurate 1 gram tablet 1 g PO BID 10/21/22 11/22/22 11/22/22 History oxybutynin chloride 5 mg tablet 5 mg PO TID 10/21/22 11/22/22 11/22/22 History sitagliptin phosphate 25 mg tablet 25 mg PO DAILY 10/21/22 11/22/22 11/22/22 History (Januvia) sitagliptin phosphate 50 mg tablet 50 mg PO DAILY 10/21/22 11/22/22 11/22/22 History (Januvia) fosfomycin tromethamine 3 gram 3 g PO Q3D 30 days #10 ea 10/26/22 11/22/22 11/20/22 Rx oral packet bisacodyl 10 mg rectal suppository 10 mg [place] DAILY PRN Constipation 11/11/22 11/22/22 11/10/22 History ketoconazole 2 % topical cream 1 applic topical BID 11/13/22 11/22/22 11/13/22 History magnesium hydroxide 400 mg/5 mL 5 ml PO TID PRN constipation #355 11/18/22 11/22/22 Unknown Rx oral suspension (Milk of Magnesia) mL metoclopramide HCl 5 mg tablet 5 mg PO DAILY PRN nausea and 11/18/22 11/22/22 11/20/22 Rx (Reglan) vomiting #14 tabs polyethylene glycol 3350 17 gram 17 g PO DAILY #30 ea 11/18/22 11/22/22 11/22/22 Rx oral powder packet hydroxyzine HCl 25 mg tablet 50 mg PO Q6H PRN Anxiety 11/22/22 11/22/22 Unknown History oxycodone-acetaminophen 5 mg-325 1 - 2 tab PO Q6H PRN Pain 11/22/22 11/22/22 Unknown History mg tablet Allergies Allergy/AdvReac Type Severity Reaction Status Date / Time No Known Allergies Allergy Verified 11/20/22 17:34 PFSH Acute PFSH: Medical History Anxiety Chronic kidney disease Colostomy in place COVID-19 (~2020) Depression Diabetes mellitus, type II GERD (gastroesophageal reflux disease) History of ESBL E. 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 Neurogenic bladder Neuropathic pain PVD (peripheral vascular disease) Quadriplegia secondary to trauma Recurrent sepsis due to urinary tract infection Sacral decubitus ulcer Sacral decubitus ulcer, stage IV Suprapubic catheter Therapeutic opioid induced constipation Urinary retention Surgical History H/O bladder repair surgery H/O cystoscopy H/O partial cystectomy H/O Spinal surgery History of hysterectomy History of partial gastrectomy (12/2019) due to perforated viscous from gastric ulcer Family History Other CAD (coronary artery disease) Diabetes Hypertension Social History Smoking and tobacco status: never smoked Alcohol intake: never Housing: Care Home Marital status: Current occupational status: disabled Vitals/I&O/Wt Last Vital Signs Temp 100.0 F H 11/22/22 17:15 Pulse 126 H 11/22/22 17:15 Resp 16 11/22/22 17:37 BP 168/104 11/22/22 17:15 Pulse Ox 97 11/22/22 17:15 O2 Del Method 11/22/22 17:15 O2 Flow Rate 3 11/22/22 17:15 Weight last 48 hrs Weight 130 lb Physical Exam Narrative: General : Patient is well developed , no acute distress, oriented x3 Head : Normal cephalic, a-traumatic. Ears : Pinnae and external canal are normal. Hearing is normal. Eyes : PERRLA, Sclera and injection are normal. No conjunctival discharge. Nose : Mucous membranes are without erythema. Throat : buccal mucosa is normal, gums are without significant recession or hypertrophy. Lungs : Equal chest rise bilaterally, no use of accessory muscles, trachea is midline. Cor : Rate and rhythm are normal. Abdomen : Soft, distended, mild diffuse tenderness, no guarding rebound or masses Colostomy pink patent and producing Incisions intact without erythema or exudate Data 11/22/22 14:08 11/22/22 14:08 A&P Assessment and plan (1) Abdominal pain: (2) Colostomy in place: (3) Quadriplegia: (4) Bowel obstruction: Plan She may appendicitis according to the CT read. Her appendix is 1.2 cm in diameter 2 OR for exploratory laparotomy, revision of colostomy and appendectomy The risks and benefits of the procedure, including but not limited to, bleeding, scar, numbness, pain, infection, damage to surrounding structures, colostomy dysfunction, wound breakdown, need for further surgery, or explained to the patient. She is understanding of the risks and wishes to proceed Attestations Medical Necessity Statement*: Patient will require at least a couple of nights in the hospital for recovery after exploratory laparotomy Coding Level of Care Code Acute Code for Chg Fwd Diagnoses Abdominal pain R10.[address] Z93.3 Quadriplegia G82.50 Bowel obstruction K56.609
--- NOTE | 2022-11-22 18:09 | PC.NURSE ---
Iv started in ER
[2022-11-22] MEDS: ceFOXitin 2,000 MG in sodium chloride 0.9% (plus) 50 ML 100 MG IV (18:50)
[2022-11-22 20:17] LABS: Glucose Point of Care 173 mg/dL (70-110)
[2022-11-22] MEDS: tranexamic acid 1,000 mg/10mL SDV 1000 MG IV (21:23)
--- NOTE | 2022-11-22 21:42 | P.OP_ITS ---
Operative Report Date of procedure: November 22, 2022 Pre-op diagnosis: Preop Diagnosis large bowel obstruction, small bowel obstruction and possible appendicitis Post-op diagnosis: other (Large bowel obstruction, small bowel obstruction from adhesions, right colon ischemia) Procedure done: Exploratory laparotomy with right hemicolectomy and colostomy revision Implants: 219 [place] [employer] Denny drains Specimens removed/disposition: Right colon Surgeon: Dr. Andrew Lo, Anesthesia: General Estimated blood loss (mL): 300 Complications: None apparent Brief History: This is a very pleasant 47-year-old female who recently underwent open colostomy formation for constipation/obstipation and for quality of life as she is quadriplegic. She returned to the hospital with CT reading of large bowel obstruction, small bowel obstruction and possible acute appendicitis. Exploratory laparotomy with colostomy revision and possible appendectomy was indicated. The risks and benefits of the procedure were explained and documented. Procedure: Patient is well in the operative room placed on the OR table in supine position. The abdomen was inspected prepped and draped in the usual sterile fashion. A timeout was performed. All present were in agreement. The colostomy was sewn closed in a running fashion with 3-0 Vicryl. The sutures at the colostomy were cut with a 15 blade scalpel. The abdomen was again prepped. The midline laparotomy incision was opened with a 10 blade scalpel. Electrocautery was used to dissect down to the fascia fascia was opened with electrocautery. The peritoneum was opened bluntly. The colostomy site was then pulled into the colon. It was found that the distal rectosigmoid was made into the colostomy instead of the proximal sigmoid. The colon and small bowel were very distended. I went to examine the appendix to look for appendicitis and found dense adhesions from the right ovary to the small bowel from her previous hysterectomy. I took down these adhesions bluntly and with electrocautery. There was also an adhesive band coming from the omentum down to the small bowel in this area. I ligated this with electrocautery. Upon examination of the right colon there were 2 areas of ischemia and near perforation. The right colon was not viable and the decision was made to form a right hemicolectomy. The right white line of Toldt was taken down bluntly and with electrocautery. The Enseal was then used to ligate the adhesions to the hepatic flexure. The site for anastomosis of the colon was then opened with electrocautery and 6 or 7 L of stool was drained out of the colon and into a bucket. This area was then sewn closed. The proximal ileum was then brought up to the proximal transverse colon and a [id number] functional end-to-end anastomosis was made with a EDWAR stapler with a 100 mm blue load x3. The mesentery of the right colon and proximal terminal ileum, along with the right colic artery, or ligated with the Enseal. Specimen was passed off. The appendix did not look inflamed. A 19 [place] [employer] Denny drain was placed into the right colic gutter and down into the pelvis while also covering the anastomosis. This came out of the right side of the abdomen. A 19 [place] Denny drain was put through the left side of the abdomen down the left paracolic gutter and into the pelvis. These were sewn in place with 3-0 nylon. The distal sigmoid colon was then brought up through the previous colostomy site. There was adequate length for a tension-free colostomy. The abdomen was then irrigated with 4 L of warm saline. Hemostasis was noted. The midline laparotomy incision was then closed with #1 PDS in a running fashion x2. Skin was closed with lasha. Quarter inch Eliel drains were placed between lasha for drainage. The ostomy was then matured in the typical fashion with 3-0 Vicryl sutures. Ostomy was pink and viable. Ostomy appliance was placed. Sterile dressings were placed. Patient tolerated procedure well.
[2022-11-22] MEDS: propofol 1,000 MG/100 ML INJ 1.77 MG IV (22:12)
--- NOTE | 2022-11-22 22:22 | PM.CONSULT ---
Providers/Reason For Consult Consulting Physician/Specialty*: DEBO Yen MD/ hospitalist Reason for Consult*: ICU/ critical care management Requesting Physician: shania lo MD Attending Physician: Shania Lo DO Primary Care Provider: Shakira Cruz MD History of Present Illness History of Present Illness Rosanne Morales is a 47 year old female with past medical history of quadriplegia suprapubic catheter neurogenic bladder, Erecurrent ESBL UTIs, opioid induced chronic constipation,?recently admitted here between 11/13-11/18 for constipation and obstipation, colinic dilatation s/p diverting colostomy to improve quality of life. Her postoperative stay was uneventful. She returned to ER today with abdominal pain and nausea. CT abdomen concerning for colonic obstruction possible appendicitis, small bowel obstruction and fluid collection in the left anterior abdomen near the colostomy. She was taken to the Er for Exploratory laparotomy with right hemicolectomy and colostomy revision. Inoperative findings included ischemic changes of the right colon pending perforation for which right hemicolectomy was needed. Appendix did not look inflammed. Patient was brought to ICU post operatively and remained intubated. She was on phenylephrine. EBL 300 cc. Her osotomy has fecal output post operatively. Review of Systems General: Reports: ROS unobtainable due to endotracheal tube Medications/Allergies Home Medications Medication Instructions Recorded Confirmed Last Taken Type ascorbic acid (vitamin C) 1,000 mg 1,000 mg PO BID@,04/22/20 11/22/22 11/22/22 History tablet (Vitamin C) pantoprazole 40 mg tablet,delayed 40 mg PO DAILY 04/22/20 11/22/22 11/22/22 History release sennosides 8.6 mg-docusate sodium 2 tab PO BID@,05/28/20 11/22/22 11/22/22 History 50 mg tablet (Senna Plus) alprazolam 0.25 mg tablet (Xanax) 0.25 mg PO TID PRN Anxiety #10 tabs 11/22/20 11/22/22 11/20/22 Rx fentanyl 50 mcg/hr transdermal 1 patch transdermal Q72H #5 ea 11/22/20 11/22/22 11/20/22 Rx patch morphine concentrate 100 mg/5 mL 5 mg (0.25 mL) PO Q4H PRN Pain #30 11/22/20 11/22/22 11/11/22 Rx (20 mg/mL) oral solution mL acetaminophen 500 mg tablet 500 mg PO Q6H PRN Pain 08/17/21 11/22/22 11/20/22 History naloxone 0.4 mg/mL injection 0.4 mg IM Q2M PRN overdose 08/17/21 11/22/22 Unknown History solution pravastatin 40 mg tablet 40 mg PO BEDTIME 08/17/21 11/22/22 11/21/22 History simethicone 80 mg chewable tablet 80 mg PO TIDWM 08/17/21 11/22/22 11/22/22 History methylnaltrexone 12 mg/0.6 mL 0.6 ml SUBCUT Q3D PRN Constipation 01/24/22 11/22/22 11/11/22 History subcutaneous syringe (Relistor) ondansetron HCl 4 mg tablet 4 mg PO Q6H PRN Nausea 01/24/22 11/22/22 11/07/22 History docusate sodium 100 mg capsule 100 mg PO BID 02/11/22 11/22/22 11/22/22 History (Colace) gabapentin 600 mg tablet 1,200 mg PO TID 02/11/22 11/22/22 11/22/22 History calcium carbonate 400 mg calcium 400 mg PO DAILY PRN Heartburn 03/06/22 11/22/22 06/03/22 History (1,000 mg) chewable tablet (Tums Ultra) insulin lispro 100 unit/mL See Rx Instructions .Route .COMPLEX 03/06/22 11/22/22 11/13/22 History subcutaneous pen (Humalog KwikPen (U-100) Insulin) pregabalin 50 mg capsule (Lyrica) 50 mg PO BID 03/06/22 11/22/22 11/22/22 History potassium chloride 20 mEq 20 meq PO DAILY 03/28/22 11/22/22 11/22/22 History tablet,extended release lidocaine 5 % topical patch 1 patch topical Q12H 05/12/22 11/22/22 11/22/22 History metformin 1,000 mg tablet 1,000 mg PO BID 05/12/22 11/22/22 11/22/22 History sertraline 50 mg tablet 50 mg PO DAILY 07/11/22/22 11/21/22 History linaclotide 145 mcg capsule 145 mcg PO DAILY 07/31/22 11/22/22 11/22/22 History (Sharrizess) cyclobenzaprine 5 mg tablet 5 mg PO TID PRN Muscle Pain 10/21/22 11/22/22 11/11/22 History diclofenac sodium 1 % topical gel 2 g topical BID PRN Pain 10/21/22 11/22/22 11/12/22 History lidocaine 4 % topical cream 1 applic topical BID PRN Pain 10/21/22 11/22/22 Unknown History methenamine hippurate 1 gram tablet 1 g PO BID 10/21/22 11/22/22 11/22/22 History oxybutynin chloride 5 mg tablet 5 mg PO TID 10/21/22 11/22/22 11/22/22 History sitagliptin phosphate 25 mg tablet 25 mg PO DAILY 10/21/22 11/22/22 11/22/22 History (Januvia) sitagliptin phosphate 50 mg tablet 50 mg PO DAILY 10/21/22 11/22/22 11/22/22 History (Januvia) fosfomycin tromethamine 3 gram 3 g PO Q3D 30 days #10 ea 10/26/22 11/22/22 11/20/22 Rx oral packet bisacodyl 10 mg rectal suppository 10 mg SC DAILY PRN Constipation 11/11/22 11/22/22 11/10/22 History ketoconazole 2 % topical cream 1 applic topical BID 11/13/22 11/22/22 11/13/22 History magnesium hydroxide 400 mg/5 mL 5 ml PO TID PRN constipation #355 11/18/22 11/22/22 Unknown Rx oral suspension (Milk of Magnesia) mL metoclopramide HCl 5 mg tablet 5 mg PO DAILY PRN nausea and 11/18/22 11/22/22 11/20/22 Rx (Reglan) vomiting #14 tabs polyethylene glycol 3350 17 gram 17 g PO DAILY #30 ea 11/18/22 11/22/22 11/22/22 Rx oral powder packet hydroxyzine HCl 25 mg tablet 50 mg PO Q6H PRN Anxiety 11/22/22 11/22/22 Unknown History oxycodone-acetaminophen 5 mg-325 1 - 2 tab PO Q6H PRN Pain 11/22/22 11/22/22 Unknown History mg tablet Allergies Allergy/AdvReac Type Severity Reaction Status Date / Time No Known Allergies Allergy Verified 11/20/22 17:34 Current Medications Generic Name Dose Route Start Last Admin Trade Name Michaelq PRN Reason Stop Dose Admin Fentanyl 50 mcg 11/22/22 17:32 11/22/22 17:37 Fentanyl 50 Mcg/Ml Inj 2ml IVP 50 mcg Q10M PRN Administration Preop Pain Propofol 1,000 mg in 100 mls @ 0 mls/hr 11/22/22 22:00 11/22/22 22:12 Diprivan IV 5 mcg/kg/min .Q0M ELISEO 1.77 mls/hr Administration Protocol Per Protocol PFSH Acute PFSH: Medical History Anxiety Chronic kidney disease Colostomy in place COVID-19 (~2019) Depression Diabetes mellitus, type II GERD (gastroesophageal reflux disease) History of ESBL E. coli infection Hydronephrosis Hyperlipidemia roasterman prescription opiate use Neurogenic bladder Neuropathic pain PVD (peripheral vascular disease) Quadriplegia secondary to trauma Recurrent sepsis due to urinary tract infection Sacral decubitus ulcer Sacral decubitus ulcer, stage IV Suprapubic catheter Therapeutic opioid induced constipation Urinary retention Surgical History H/O bladder repair surgery H/O cystoscopy H/O partial cystectomy H/O Spinal surgery History of hysterectomy History of partial gastrectomy (12/2019) due to perforated viscous from gastric ulcer Family History Other CAD (coronary artery disease) Diabetes Hypertension Social History Smoking and tobacco status: never smoked Alcohol intake: never Housing: Senior Living Marital status: Current occupational status: disabled Vitals/I&O/Wt Last Vital Signs Temp 100.0 F H 11/22/22 17:15 Pulse 126 H 11/22/22 17:15 Resp 22 H 11/22/22 22:17 BP 168/104 11/22/22 17:15 Pulse Ox 100 11/22/22 22:17 O2 Del Method 11/22/22 17:15 O2 Flow Rate 3 11/22/22 17:15 FiO2 50 11/22/22 22:17 11/22/22 11/22/22 11/22/22 06:59 14:59 22:59 Intake Total 50 / 50 Balance 50 / 50 Weight last 48 hrs Weight 58.967 kg Physical Exam Narrative: General: Intubated, sedated HEENT: PERRLA, pupils bilaterally equal and reactive Chest: Normal vesicular breath sounds anteriorly, no added sounds, equal good air entry bilaterally CVS: S1-S2 regular, no murmurs, no tachycardia, no gallops, no rubs Abdomen: post operative, anterior abdomen surgical dressing in place, not opened for exam by me Neuro: intubated, sedated, unable to assess Urinary Catheter Management: Suprapubic: Cath Placed During This Visit: no Data 11/22/22 14:08 11/22/22 14:08 Other data: CT/CT abdomen pelvis w con* [id number] IMPRESSION: 1. Interval partial sigmoid resection. The distal descending colon appears blind-ending without evidence of ostomy at this location. There is worsening distention of the colon proximal to this location with air-fluid levels compatible with colonic obstruction. There is worsening distal small bowel dilatation likely reflecting associated small bowel obstruction. 2. The distal colorectal limb extends to a colostomy site in the left abdomen. 3. Worsened thickening of the appendix measuring up to 1.2 cm. This may relate to colonic obstruction. There is minimal adjacent stranding/fluid. Early appendicitis is not excluded. Correlate clinically. 4. Fluid collection in the anterior left abdomen near ostomy site that could reflect abscess/developing abscess. 5. There are stones in the dependent bladder. The bladder wall is thickened. Correlate with urinalysis to assess for cystitis. 6. Indeterminate left adrenal nodule. Recommend nonemergent MR abdomen to better characterize. 7. Consolidation at the right base may reflect atelectasis or pneumonia. 8. Trace right pleural effusion. 9. Coronary artery disease. 10. Mild free fluid. ? A&P Assessment and plan (1) Bowel obstruction: taken to OR, now s/p ex lap, right hemicolectomy, colostomy revision post operative, colostomy and wound care management per surgery (2) Sepsis: Febrile 101.5F, tachycardic, elevated lactate, GI source of infection , currently with septic shock needing pressor support This was present on admission Blood cx has not been drawn since arrival, will obtain now Patient has been receving IVF during OR , currently receiving NS at 125 cc/hr Has been started empirically on Zosyn, will change this to meropenem 1g iv q8h given past h/o known ESBL gram negatives colonization Currently on phenylephrine, change to levophed sepsis protocol, goal MAP > 65 (3) Respiratory failure: Remains intubated postprocedure. Will check ABG with morning labs and attempt to wean vent support as tolerated. Chest x-ray shows ET tube leading to be advanced, adjusted by RT. Repeat chest x-ray pending. Fentanyl gtt added in addition to propofol gtt. Plan DM: addded insulin sliding scale for blood sugar management Holding home doses of medications including gabapentin, sertraline, statins as patient strictly n.p.o. per surgery recommendations. Consult Attestations Medical Necessity Statement: Please see admitting's note Critical Care Time: The high probability of a clinically significant, sudden or life threatening deterioration of the patient's [circulatory, respiratory, infectious] system(s) required my full and direct attention, intervention and personal management. The critical care time is as shown. This time is in addition to time spent performing any reported procedures but includes the following: [x] Data and vital sign review and interpretation [x] Patient assessment, examination and intervention [x] Documentation [x] Medication orders and management Critical Care Time (min): 40 Coding Level of Care Code Acute Code for Chg Fwd Diagnoses Bowel obstruction K56.609 Sepsis A41.9 Respiratory failure J96.90
[2022-11-22] MEDS: sodium chloride 0.9% 1,000 ML 125 ML IV (23:23)
[2022-11-22] MEDS: pantoprazole 40 mg SDV IVP (23:24)
[2022-11-22] MEDS: meropenem 1,000 MG in sodium chloride 0.9% (plus) 50 ML 100 MG IV (23:42)
[2022-11-22] MEDS: heparin 5,000 unit/mL INJ 1 mL 5000 UNIT SUBCUT (23:43)
[2022-11-23] VITALS (90 sets, daily range): BP systolic 65–119; BP diastolic 52–98; PULSE 107–137; RESP 16–19; TEMP 37.4–39.8; O2SAT 92–99; BMI 22.3
--- NOTE | 2022-11-23 02:14 | XRR_ITS ---
PROCEDURE INFORMATION: Exam: XR Chest Exam date and time: 11/23/2022 2:21 AM Age: 47 years old Clinical indication: Device placement; Ett placement (vent status); Additional info: Intubated, tube placement TECHNIQUE: Imaging protocol: Radiologic exam of the chest. Views: 1 view. COMPARISON: [place] [id number] 10/22/2022 3:37 PM FINDINGS: Tubes, catheters and devices: There is a nasogastric tube with its tip and side port in the body of the stomach. EKG monitoring leads overlie the thoracic wall. There is a central venous catheter coursing through the visualized medial segment of the right subclavian vein with its tip at the cavoatrial junction. Lungs: There is right perihilar and infrahilar nonspecific consolidation. Pleural spaces: No pleural effusion or pneumothorax. Heart/Mediastinum: Normal in size. Bones/joints: No acute fracture is identified. XR/XR chest 1V portable [id number] IMPRESSION: 1. Nasogastric tube tip and side port in the stomach. 2. A right central venous catheter is present with its tip at the cavoatrial junction. 3. Right perihilar and infrahilar nonspecific consolidation that may represent atelectasis and/or pneumonia. 4. Asymmetric elevation of the right the hemidiaphragm.
--- NOTE | 2022-11-23 04:51 | XRR_ITS ---
PROCEDURE INFORMATION: Exam: XR Chest Exam date and time: 11/23/2022 5:00 AM Age: 47 years old Clinical indication: Device placement; Ett placement (vent status); Patient HX: Et tube adjusted; Additional info: Et tube placement TECHNIQUE: Imaging protocol: Radiologic exam of the chest. Views: 1 view. COMPARISON: CR (CHEST, ) 11/23/2022 2:21 AM FINDINGS: Tubes, catheters and devices: The endotracheal tube is at the origin of the right mainstem bronchus. There is a nasogastric tube in the stomach, its tip outside the field of view. The right subclavian central venous line tip is at the cavoatrial junction. EKG monitoring leads overlie the thoracic wall. Lungs: There has been some interval improvement in right perihilar consolidation/atelectasis. Pleural spaces: No pleural effusion or pneumothorax. Heart/Mediastinum: Normal in size. Diaphragm: There has been interval resolution of the asymmetric elevation the right hemidiaphragm. Bones/joints: No acute fracture is identified. XR/XR chest 1V portable [id number] IMPRESSION: Endotracheal tube at the origin of the right mainstem bronchus. Consider withdrawing the endotracheal tube 3 cm.
[2022-11-23 05:28] LABS: ABG PCO2 33.4 mmHg (35-45); ABG PH Result 7.33 (7.35-7.45); Arterial Blood Gas Hematocrit 37.3 % (37-47); Base Excess ABG -7.5 mmol/L (-2.0-2.0); Blood Gas Operator Identificat JB; Blood Gas Sample Site Brachial, right; Blood Gas Sample Type Arterial; Blood Gas Tidal Volume 0.35; Carboxyhemoglobin 1.3 %THgb (0.4-20.1); HCO3 ABG 17.6 mmol/L (22-26); HGB O2 Sat 95.4 % (95-100); Methemoglobin 0.6 % (0.4-1.5); Oxygen Device VENT; Oxygen Saturation ABG 97.3; PO2 ABG 88.6 mmHg (80.0-100.0); Potassium Level - ABG 3.9 mmol/L (3.5-5.0); Total Hemoglobin 12.2 g/dL (12-16)
[2022-11-23 05:33] LABS: Basophils % 0.3 %; Hematocrit 37.8 % (37.0-47.0); Hemoglobin 11.6 g/dL (11.5-15.3); Lymphocytes % 9.3 %; Mean Corpuscular HGB Conc 30.7 g/dL (30.0-36.0); Mean Corpuscular Hemoglobin 26.5 pg (28.0-34.0); Mean Corpuscular Volume 86.3 fl (81-99); Mean Platelet Volume 10.3 fL (7.4-10.4); Monocytes # 1.2 10^3/uL (0.2-0.9); Monocytes % 10.5 %; Neutrophils # 8.89 10^3/uL (1.8-7.7); Neutrophils % 79.6 %; Nucleated Red Blood Cells % 0 %; Platelet Count 446 10^3/cmm (130-400); Red Blood Count 4.38 10^6/uL (4.1-5.3); Red Cell Distribution Width 16.8 % (12.1-15.1); White Blood Count 11.2 10^3/uL (4.0-10.0)
[2022-11-23 05:48] LABS: Anion Gap 17.8 (5-19); Blood Urea Nitrogen 18 mg/dL (6-20); Calcium 7.3 mg/dL (8.5-10.5); Carbon Dioxide 19 mmol/L (22-29); Chloride 101 mmol/L (98-107); Glomerular Filtration Rate 76.9 mL/min (90-130); Glucose 220 mg/dL (65-115); Magnesium 1.9 mg/dL (1.7-2.3); Osmolality Calculated 287 mOsm/kg (285-295); Phosphorus 3.1 mg/dL (2.5-4.5); Potassium 3.8 mmol/L (3.5-5.1); Sodium 134 mmol/L (136-145)
--- NOTE | 2022-11-23 05:49 | XRR_ITS ---
PROCEDURE INFORMATION: Exam: XR Chest Exam date and time: 11/23/2022 5:55 AM Age: 47 years old Clinical indication: Device placement; Ett placement (vent status); Patient HX: Et tube adjusted again; Additional info: Et tube placement TECHNIQUE: Imaging protocol: Radiologic exam of the chest. Views: 1 view. COMPARISON: CR (CHEST, ) 11/23/2022 5:00 AM FINDINGS: Tubes, catheters and devices: The endotracheal tube is approximately 3.5 cm above the leo. There is an enteric tube in the stomach. The right subclavian central venous line tip is at the cavoatrial junction. EKG monitoring leads overlie the thoracic wall. Lungs: Minimal interval change in the right perihilar and lower lobe consolidation. Pleural spaces: No pleural effusion or pneumothorax. Heart/Mediastinum: Normal in size. Diaphragm: There is mild asymmetric elevation the right hemidiaphragm. Bones/joints: No acute fracture is identified. Gastrointestinal tract: There are postoperative changes of the stomach. XR/XR chest 1V portable [id number] IMPRESSION: Endotracheal tube 3.5 cm above the leo.
[2022-11-23] MEDS: sodium chloride 0.9% 1,000 ML 125 ML IV ×3 (06:11→22:33)
[2022-11-23] MEDS: meropenem 1,000 MG in sodium chloride 0.9% (plus) 50 ML 100 MG IV ×3 (06:11→22:32)
[2022-11-23 07:06] LABS: Lactate (Lactic Acid level) 1.4 mmol/L (0.5-2.2)
[2022-11-23 07:29] LABS: Glucose Point of Care 240 mg/dL (70-110)
[2022-11-23] MEDS: insulin lispro 100 unit/1 mL SUBCUT ×3 (07:31→22:38)
[2022-11-23] MEDS: propofol 1,000 MG/100 ML INJ 10.61 MG IV ×2 (09:04→20:26)
[2022-11-23] MEDS: heparin 5,000 unit/mL INJ 1 mL 5000 UNIT SUBCUT ×2 (09:09→21:18)
--- NOTE | 2022-11-23 09:53 | PM.PN ---
Subjective Subjective: Patient remains intubated and sedated. She is on 12 mcg/min of Levophed with a MAP in the 80s and tachycardia. Vitals/I&O/Wt Last Vital Signs Temp 99.3 F 11/23/22 03:15 Pulse 134 H 11/23/22 06:00 Resp 16 11/23/22 07:20 BP 88/75 11/23/22 06:00 Pulse Ox 99 11/23/22 07:20 O2 Del Method 11/22/22 17:15 O2 Flow Rate 3 11/22/22 17:15 FiO2 40 11/23/22 08:00 11/22/22 11/23/22 11/23/22 22:59 06:59 14:59 Intake Total 650.531 / 371.529 5473.659 / 1893.190 250.285 / 250.285 Output Total 2945 / 2945 Balance 650.531 / 650.531 -1702.341 / -1051.810 250.285 / 250.285 Weight last 48 hrs Weight 130 lb 1.164 oz Weight 130 lb Physical Exam Narrative: General: Intubated/sedated Abdomen: Soft, nondistended, no guarding rebound or masses Incisions intact without erythema or exudate Ostomy pink patent and producing Drain serosanguineous Urinary Catheter Management: Suprapubic: Cath Placed During This Visit: no Data 11/23/22 04:22 11/23/22 04:22 Micro: Microbiology 11/23/22 06:29 Blood Culture - Preliminary Blood SPECIMEN COLLECTED 11/23/22 06:39 Blood Culture - Preliminary Blood SPECIMEN COLLECTED A&P Assessment and plan (1) Bowel obstruction: (2) Colostomy in place: (3) Ischemic colon: Plan Postoperative day #1 status post exploratory laparotomy, lysis of adhesions for small bowel obstruction, right hemicolectomy for ischemia and colostomy revision Continue Zosyn as there was some fecal contamination during surgery. Approximately 7 L of stool was suctioned Wean Levophed for MAP over 65 Daily dressing changes with 4 x 4's and tape Medical management per hospitalist-appreciate input Attestations Medical Necessity Statement*: Patient requires multiple more nights in the hospital for intensive care and return of bowel function following surgery Coding Level of Care Code Acute Code for Chg Fwd Diagnoses Bowel obstruction K56.[address] Z93.3 Ischemic colon K55.9
--- NOTE | 2022-11-23 10:35 | PC.NURSE ---
pt with dressing changed assist of Dr Lo tracey drain on right and tracey left .. Midline incision with lasha intact noted 4 open drains with drainage noted to gauze covering . abd placed to area . urostomy intact draining dyan urine weaning levophed as tolerated frequent turn and reposition pt quadriplegic heels elevated off bed
--- NOTE | 2022-11-23 11:04 | PM.PN ---
Subjective Subjective: Admitted overnight. H&P and labs appreciated. Operative note appreciated. Seen multiple times in the day. Currently on Levophed of 6, fluids of 125 cc/h, fentanyl and propofol. Intubated and sedated on minimal ventilator setting with FiO2 30%, PEEP of 5, tidal volume of 350. Urine output since last night documented to be around 2.5 L. Since today morning around 250 cc. Multiple abdominal drains present with fluid draining possible necrotic looking material. Vitals/I&O/Wt Last Vital Signs Temp 99.3 F 11/23/22 03:15 Pulse 137 H 11/23/22 10:15 Resp 16 11/23/22 09:30 BP 104/65 11/23/22 10:15 Pulse Ox 97 11/23/22 10:15 O2 Del Method 11/22/22 17:15 O2 Flow Rate 3 11/22/22 17:15 FiO2 30 11/23/22 10:00 11/22/22 11/23/22 11/23/22 22:59 06:59 14:59 Intake Total 650.531 / 610.003 6716.659 / 1893.190 329.025 / 329.025 Output Total 2945 / 2945 Balance 650.531 / 650.531 -1702.341 / -1051.810 329.025 / 329.025 Weight last 48 hrs Weight 59 kg Weight 58.967 kg Physical Exam Narrative: General: Intubated, sedated HEENT: PERRLA, pupils bilaterally equal and reactive Chest: Normal vesicular breath sounds anteriorly, no added sounds, equal good air entry bilaterally CVS: S1-S2 regular, no murmurs, no tachycardia, no gallops, no rubs Abdomen: post operative, anterior abdomen surgical dressing in place, not opened for exam by me, multiple abdominal drains present, colostomy present Neuro: intubated, sedated, unable to assess Urinary Catheter Management: Suprapubic: Cath Placed During This Visit: no Data 11/23/22 04:22 11/23/22 04:22 Micro: Microbiology 11/23/22 06:29 Blood Culture - Preliminary Blood SPECIMEN COLLECTED 11/23/22 06:39 Blood Culture - Preliminary Blood SPECIMEN COLLECTED A&P Assessment and plan (1) Septic shock: Keep mean arterial pressure over 65. History of ESBL. Monitor urine output. Can plan for monitoring abdominal pressure. Repeat BMP and lactate in evening. Wean off Levophed keeping mean artery pressure over 65. (2) Bowel obstruction: Postoperative day 1. Now s/p ex lap, right hemicolectomy, colostomy revision for large and small bowel obstruction, right colon ischemia post operative, colostomy and wound care management per surgery (3) Sepsis: Present on admission. Ruled in with febrile 101.5F, tachycardic, elevated lactate, GI source of infection , currently with septic shock needing pressor support Follow-up blood cultures. Continue with meropenem. Add vancomycin and fluconazole. IV Tylenol for fever. Patient also has decubitus ulcer. Continue wound care as per recent wound care note from Dr. Merino on November 20. (4) Respiratory failure: Remains intubated postprocedure. Continue with fentanyl and propofol. We will keep intubated for at least next 48 hours to facilitate with abdominal wound healing, possibility of going back to the OR as per clinical picture, currently in septic shock. (5) Ischemic colon: Plan DM: Insulin sliding scale every 6 hourly. Restart home gabapentin. Holding home doses of medications including sertraline, statins as patient strictly n.p.o. per surgery recommendations. Full code. NPO. Anticoagulation as per primary team. Protonix for PUD prophylaxis Thank you for involving us in care of Ms. Morales. Care discussed in detail with patient's RN and primary team. Attestations Medical Necessity Statement*: Requires further hospitalization for management of septic shock, respiratory failure in setting of postoperative status. Critical Care Time: The high probability of a clinically significant, sudden or life threatening deterioration of the patient's [pulmonary, cardiac, renal, ID, GI] system(s) required my full and direct attention, intervention and personal management. The critical care time is as shown. This time is in addition to time spent performing any reported procedures but includes the following: [x] Data and vital sign review and interpretation [x] Patient assessment, examination and intervention [x] Documentation [x] Medication orders and management Critical Care Time (min): 70 Coding Level of Care Code Acute Code for Chg Fwd Diagnoses Septic shock A41.9; R65.21 Bowel obstruction K56.609 Sepsis A41.9 Respiratory failure J96.90 Ischemic colon K55.9
[2022-11-23] MEDS: sodium chloride 0.9% 1,000 ML 999 ML IV (11:27)
[2022-11-23 12:41] LABS: Glucose Point of Care 256 mg/dL (70-110)
[2022-11-23] MEDS: acetaminophen 1,000 MG/100 ML PIGGYBACK 400 MG IV ×2 (13:30→21:18)
--- NOTE | 2022-11-23 14:27 | PC.NURSE ---
elevated temp noted doctor informed order noted prior
[2022-11-23] MEDS: fluconazole premix 200 MG/100 ML PREMIX 100 MG IV (17:46)
[2022-11-23 17:50] LABS: Glucose Point of Care 181 mg/dL (70-110)
[2022-11-23] MEDS: vancomycin 1,000 MG in sodium chloride 0.9% 250 ML 250 MG IV (18:20)
[2022-11-23] MEDS: pregabalin 50 mg Capsule PO (18:21)
[2022-11-23 19:08] LABS: Lactic Sepsis W/Reflex 0.9 mmol/L (0.5-2.2)
[2022-11-23 19:09] LABS: Anion Gap 12.4 (5-19); Blood Urea Nitrogen 19 mg/dL (6-20); Calcium 6.7 mg/dL (8.5-10.5); Carbon Dioxide 19 mmol/L (22-29); Chloride 105 mmol/L (98-107); Glomerular Filtration Rate 53.2 mL/min (90-130); Glucose 162 mg/dL (65-115); Osmolality Calculated 284 mOsm/kg (285-295); Sodium 134 mmol/L (136-145)
[2022-11-23 19:12] LABS: Potassium 2.4 mmol/L (3.5-5.1)
[2022-11-23] MEDS: potassium chloride premix 100 ML 25 MEQ IV (19:40)
[2022-11-23 20:35] LABS: Phosphorus 1.3 mg/dL (2.5-4.5)
[2022-11-23] MEDS: pantoprazole 40 mg SDV IVP (21:18)
[2022-11-23 22:38] LABS: Glucose Point of Care 142 mg/dL (70-110)
[2022-11-23 22:38] LABS: Glucose Point of Care 154 mg/dL (70-110)
[2022-11-24] VITALS (113 sets, daily range): BP systolic 71–181; BP diastolic 40–105; PULSE 69–112; RESP 15–20; TEMP 36.8–37.9; O2SAT 93–99
[2022-11-24] MEDS: propofol 1,000 MG/100 ML INJ 10.61 MG IV (03:33)
[2022-11-24] MEDS: vancomycin 1,000 MG in sodium chloride 0.9% 250 ML 25 MG IV (04:25)
[2022-11-24] MEDS: sodium chloride 0.9% 1,000 ML 125 ML IV (04:26)
[2022-11-24 04:28] LABS: Glucose Point of Care 151 mg/dL (70-110)
[2022-11-24] MEDS: acetaminophen 1,000 MG/100 ML PIGGYBACK 400 MG IV ×2 (04:30→13:36)
[2022-11-24 05:03] LABS: Alanine Aminotransferase 9 U/L (0-33); Albumin Level 2.1 g/dL (3.5-5.2); Alkaline Phosphatase 46 U/L (35-105); Anion Gap 17.3 (5-19); Aspartate Amino Transferase 16 U/L (0-32); Basophils % 0.2 %; Blood Urea Nitrogen 20 mg/dL (6-20); Calcium 6.4 mg/dL (8.5-10.5); Carbon Dioxide 15 mmol/L (22-29); Chloride 109 mmol/L (98-107); Creatinine Clr Calc Pharmacy 68.8272; Globulin 2.5 g/dL (1.3-4.6); Glomerular Filtration Rate 67.1 mL/min (90-130); Glucose 157 mg/dL (65-115); Hematocrit 25.5 % (37.0-47.0); Hemoglobin 7.8 g/dL (11.5-15.3); Lymphocytes # 1.5 10^3/uL (0.8-4.8); Lymphocytes % 12.3 %; Mean Corpuscular HGB Conc 30.6 g/dL (30.0-36.0); Mean Corpuscular Hemoglobin 26.6 pg (28.0-34.0); Mean Platelet Volume 10.6 fL (7.4-10.4); Monocytes # 1.5 10^3/uL (0.2-0.9); Monocytes % 11.9 %; Neutrophils # 9.39 10^3/uL (1.8-7.7); Neutrophils % 75.3 %; Nucleated Red Blood Cells % 0 %; Osmolality Calculated 292 mOsm/kg (285-295); Platelet Count 251 10^3/cmm (130-400); Potassium 3.3 mmol/L (3.5-5.1); Red Blood Count 2.93 10^6/uL (4.1-5.3); Red Cell Distribution Width 17.5 % (12.1-15.1); Sodium 138 mmol/L (136-145); Total Bilirubin 0.2 mg/dL (0.15-1.2); Total Protein 4.6 g/dL (6.6-8.7); White Blood Count 12.5 10^3/uL (4.0-10.0)
[2022-11-24 05:21] LABS: Magnesium 1.5 mg/dL (1.7-2.3); Phosphorus 5.2 mg/dL (2.5-4.5)
[2022-11-24 05:28] LABS: ABG PCO2 31.7 mmHg (35-45); Arterial Blood Gas Hematocrit 26.1 % (37-47); Base Excess ABG -9.7 mmol/L (-2.0-2.0); Blood Gas Operator Identificat JB; Blood Gas Sample Site Brachial, right; Blood Gas Sample Type Arterial; Blood Gas Tidal Volume 0.35; Carboxyhemoglobin 1.5 %THgb (0.4-20.1); HCO3 ABG 15.7 mmol/L (22-26); HGB O2 Sat 95.3 % (95-100); Methemoglobin 0.7 % (0.4-1.5); Oxygen Device VENT; Oxygen Saturation ABG 97.3; PO2 ABG 83.1 mmHg (80.0-100.0); Total Hemoglobin 8.5 g/dL (12-16)
[2022-11-24] MEDS: meropenem 1,000 MG in sodium chloride 0.9% (plus) 50 ML 100 MG IV ×3 (05:40→22:57)
[2022-11-24] MEDS: insulin lispro 100 unit/1 mL SUBCUT ×2 (05:41→10:53)
--- NOTE | 2022-11-24 06:00 | XRR_ITS ---
PROCEDURE INFORMATION: Exam: XR Chest Exam date and time: 11/24/2022 5:04 AM Age: 47 years old Clinical indication: Other: Daily port for intubated patient; Patient HX: Quadriplegic TECHNIQUE: Imaging protocol: Radiologic exam of the chest. Views: 1 view. COMPARISON: CR (CHEST, ) 11/23/2022 5:55 AM FINDINGS: Tubes, catheters and devices: Central venous catheter at the cavoatrial junction. Enteric tube in the stomach. Lungs: Right perihilar airspace opacity with volume loss mildly increased from comparison. Pleural spaces: Unremarkable. No pleural effusion. No pneumothorax. Heart/Mediastinum: Unremarkable. No cardiomegaly. Bones/joints: Unremarkable. XR/XR chest 1V portable [id number] IMPRESSION: Right mid lung zone airspace opacity increased from comparison; atelectasis favored.
[2022-11-24] MEDS: pregabalin 50 mg Capsule PO ×2 (08:10→17:01)
[2022-11-24] MEDS: dextrose 5%-sod chloride 0.45% 1,000 ML 125 ML IV (08:13)
[2022-11-24] MEDS: potassium chloride premix 100 ML 25 MEQ IV ×2 (08:16→12:01)
[2022-11-24] MEDS: magnesium sulfate premix 2 GM/50 ML PIGGYBACK IV (08:32)
[2022-11-24] MEDS: heparin 5,000 unit/mL INJ 1 mL 5000 UNIT SUBCUT ×2 (09:22→22:34)
[2022-11-24] MEDS: calcium chloride 10% Syr 10 mL 1 GM IVP (09:22)
--- NOTE | 2022-11-24 10:31 | PC.CHAP ---
Pastoral Care Encounter/Spiritual Assessment Type of Contact [] Declined pull out operator visit [] Patient/Family/Request visit [] Outpatient visit [] Follow-up visit [] Physician referral [] Code/Alert [x] Routine visit [] Staff referral [] Actively dying [x] Patient sleeping [] Family support [] [] Out of room [] Palliative care [] [] Receiving care in room [] Pre-surgical visit [] Trauma [] Long length of stay [x] ICU visit [] Other: Relational/Emotional Strength [] Patient feels connected with others/family/visitors/staff [] Distress [] Loneliness/isolation [] Abandonment Spirituality of Patient [] Person of Susan [] Attends Sikh of their Susan [] Believes in Prayer [] Reads Bible or Sikhism materials [] There are Spiritual issues to be addressed Children'S Aide Interventions [x] Prayer [] Active listening [] Non-anxious presence [] Spiritual/emotional support [] Crisis/trauma care [] Spiritual counseling [] Bereavement support [] Provided bereavement packet [] Provided Bible/devotional materials [] Provided toy/stuffed animal, coloring book to patient or family member [] Provided Communion [] Anointing/[place] [] Salvation [x] Completed spiritual assessment [] Other: Impact on Illness or Injury [] Angry [] Fearful [] Anxious [] Often cries [] Exhaustion [] Unable to work [] Unable to attend scientologist [] Unable to walk/stand [] Unable to read [] Unable to drive [] Unable to eat/drink [] Unable to sleep [] Unable to be with family [] Patient intubated [] Other: Summary Time spent with patient
[2022-11-24 10:53] LABS: Glucose Point of Care 147 mg/dL (70-110)
[2022-11-24] MEDS: dexmedetomidine 400 MCG in sodium chloride 0.9% (100 ml) 100 ML IV (11:55)
--- NOTE | 2022-11-24 13:57 | P.PN_ITS ---
Subjective Subjective: Patient was seen and examined this morning, continue to be intubated sedated on mechanical ventilation with minimal vent setting, fever curve is improving.Patient also has got metabolic acidosis, secondary to septic shock, hemoglobin has also dropped to 7.8 today as compared to 11.6 yesterday, hypokalemia correction has been undertaken.Other electrolytes abnormality correction has been done. Medications: Medication Review Details: Generic Name Dose Route Start Last Admin Trade Name Michaelq PRN Reason Stop Dose Admin Heparin Sodium (Po rcine) 5,000 unit 11/22/22 22:00 11/24/22 09:22 Heparin 5,000 Un it/Ml Inj 1 Ml SUBCUT 5,000 unit Q12H ELISEO Administration Propofol 1,000 mg in 100 m ls @ 0 mls/hr 11/22/22 22:00 11/24/22 11:26 Diprivan IV 0 mcg/kg/min .Q0M ELISEO 0 mls/hr Titration Protocol Per Protocol Norepinephrine Bit artrate 4 mg 254 mls @ 0 mls/h r 11/22/22 22:15 11/24/22 12:29 / Dextrose IV 0 mcg/min .Q0M ELISEO 0 mls/hr Titration Protocol Per Protocol Meropenem 1,000 mg / Sodium 50 mls @ 100 mls/ hr 11/22/22 22:30 11/24/22 13:36 Chloride IV 100 mls/hr Q8H ELISEO Administration Fentanyl 1,000 mcg / Sodium 100 mls @ 0 mls/h r 11/22/22 22:15 11/24/22 11:26 Chloride IV 0 mcg/hr .Q0M ELISEO 0 mls/hr Titration Protocol Per Protocol Vancomycin HCl 1,0 00 mg/ 250 mls @ 250 mls /hr 11/23/22 17:00 11/24/22 04:25 Sodium Chloride IV 25 mls/hr Q12H ELISEO Administration Protocol As Directed Fluconazole 200 mg in 100 mls @ 100 mls/hr 11/23/22 17:00 11/23/22 18:43 Diflucan Premix IV 11/30/22 16:59 Infused Q24H ELISEO Infusion Dextrose/Sodium Ch loride 1,000 mls @ 125 m ls/hr 11/24/22 08:00 11/24/22 08:13 Dextrose 5%-Sod Chloride 0.45% IV 125 mls/hr .Q8H ELISEO Administration Potassium Chloride 100 mls @ 25 mls/ hr 11/24/22 08:00 11/24/22 12:01 K-Kade IV 11/24/22 15:59 25 mls/hr Q4H ELISEO Administration Dexmedetomidine HC l 400 mcg/ 104 mls @ 0 mls/h r 11/24/22 11:15 11/24/22 13:30 Sodium Chloride IV 0.5 mcg/kg/hr .Q0M PRN 7.67 mls/hr AGITATION Titration Protocol Per Protocol Insulin Human Lisp ro 0 unit 11/23/22 11:15 11/24/22 10:53 Insulin Lispro 1 00 Unit/1 Ml SUBCUT 4 unit Q6H ELISEO Administration Protocol Pantoprazole Sodiu m 40 mg 11/22/22 22:00 11/23/22 21:18 Pantoprazole 40 Mg Sdv IVP 40 mg Q24H ELISEO Administration Pregabalin 50 mg 11/23/22 18:00 11/24/22 08:10 Pregabalin 50 Mg Capsule PO 50 mg BID ELISEO Administration Vitals/I&O/Wt Last Vital Signs Temp 100.3 F H 11/24/22 00:30 Pulse 82 11/24/22 13:45 Resp 16 11/24/22 13:23 BP 89/50 11/24/22 13:45 Pulse Ox 96 11/24/22 13:45 O2 Del Method 11/23/22 19:30 O2 Flow Rate 3 11/22/22 17:15 FiO2 30 11/24/22 13:23 11/23/22 11/24/22 11/24/22 22:59 06:59 14:59 Intake Total 1661.570 / 4120.952 1547.1313 / 5668.0833 995.003 / 995.003 Output Total 965 / 965 90 / 1055 Balance 696.570 / 3155.952 1457.1313 / 4613.0833 995.003 / 995.003 Weight last 48 hrs Weight 59 kg Physical Exam Narrative: Patient is currently intubated sedated on mechanical ventilation. HENMT: COMMON NORMALS: normocephalic and atraumatic HEAD & SCALP: normocephalic and atraumatic Resp: COMMON NORMALS: clear to auscultation bilaterally AUSCULTATION: clear to auscultation bilaterally Cardio: COMMON NORMALS: regular rate, regular rhythm, S1 normal heart sound present, S2 normal heart sound present, No gallops present (Cardio), No murmurs present (Cardio), No rub (Cardio) and Peripheral pulses 2+ throughout RATE: regular rate RHYTHM: regular rhythm HEART SOUNDS: S1 normal heart sound present and S2 normal heart sound present PERIPHERAL PULSES: Peripheral pulses 2+ throughout GI: AUSCULTATION: Yes normoactive bowel sounds RECTAL EXAM: deferred OTHER: Incision site intact and clean, ostomy patent. Extremity: COMMON NORMALS: no clubbing, cyanosis or edema and no pedal edema Urinary Catheter Management: Suprapubic: Cath Placed During This Visit: no Data 11/24/22 04:20 11/24/22 04:20 Micro: Microbiology 11/23/22 06:29 Blood Culture - Preliminary Blood NEGATIVE TO DATE 11/23/22 06:39 Blood Culture - Preliminary Blood NEGATIVE TO DATE A&P Assessment and plan (1) Septic shock: CT abdomen and pelvis findings appreciated Blood culture Urine culture Lactic acid:2.5 Prior history of ESBL Proteus.M Currently she is on broad-spectrum antibiotics (namely vancomycin, meropenem) Also covered with antifungal fluconazole. Continue Levophed Maintain MAP greater than 65 Decubitus ulcer management as per recent wound care follow-up plan. (2) Bowel obstruction: Postoperative day 1. Now s/p ex lap, right hemicolectomy, colostomy revision for large and small bowel obstruction, right colon ischemia post operative, colostomy and wound care management per surgery (3) Sepsis: (4) Respiratory failure: Currently patient is intubated sedated on mechanical ventilation.Requiring mini mal vent settings Monitor ABG, monitor x-ray chest as needed. Daily sedation break, weaning trials as appropriate. (5) Ischemic colon: (6) Metabolic acidosis: Likely secondary to septic shock: Monitor ABG, for now we will start on p.o. sodium bicarb IV fluid has been changed to LR. Low threshold for starting bicarb drip if needed depending upon the acceptable pH goal. As severe metabolic acidosis will interfere with vasopressors effectiveness. (7) Anemia: Possibly postop blood loss Monitor H&H Transfuse to maintain hemoglobin greater than 7 (8) Hypomagnesemia: Monitor and replace serum magnesium (9) Hyperphosphatemia: Monitor serum phosphorus (10) Hypoalbuminemia: (11) Hypocalcemia: Plan Ionized calcium is 1, will give 1 g sodium chloride IV. One-time dose monitor serum calcium. Attestations Medical Necessity Statement*: Patient is in hospital for management of septic shock Time Spent in Patient Care: Greater than 35 minutes Critical Care Time: The high probability of a clinically significant, sudden or life threatening deterioration of the patient's [] system(s) required my full and direct attention, intervention and personal management. The critical care time is as shown. This time is in addition to time spent performing any reported procedures but includes the following: [x] Data and vital sign review and interpretation [x] Patient assessment, examination and intervention [x] Documentation [x] Medication orders and management Critical Care Time (min): 40 Coding Level of Care Code Acute Code for Chg Fwd Exam Detailed Diagnoses Septic shock A41.9; R65.21 Bowel obstruction K56.609 Sepsis A41.9 Respiratory failure J96.90 Ischemic colon K55.9 Metabolic acidosis E87.20 Anemia D64.9 Hypomagnesemia E83.42 Hyperphosphatemia E83.39 Hypoalbuminemia E88.09 Hypocalcemia E83.51
--- NOTE | 2022-11-24 14:33 | PM.PN ---
Subjective Subjective: Patient remains intubated and sedated. She is on 4 mcg/min of Levophed Vitals/I&O/Wt Last Vital Signs Temp 100.3 F H 11/24/22 00:30 Pulse 82 11/24/22 13:45 Resp 16 11/24/22 13:23 BP 89/50 11/24/22 13:45 Pulse Ox 96 11/24/22 13:45 O2 Del Method 11/23/22 19:30 O2 Flow Rate 3 11/22/22 17:15 FiO2 30 11/24/22 13:23 11/23/22 11/24/22 11/24/22 22:59 06:59 14:59 Intake Total 1661.570 / 4120.952 1547.1313 / 5668.0833 1289.170 / 1289.170 Output Total 965 / 965 90 / 1055 Balance 696.570 / 3155.952 1457.1313 / 4613.0833 1289.170 / 1289.170 Weight last 48 hrs Weight 130 lb 1.164 oz Physical Exam Narrative: General: Intubated/sedated Abdomen: Soft, nondistended, no guarding rebound or masses Incisions intact without erythema or exudate Ostomy pink patent and producing Drain serosanguineous Urinary Catheter Management: Suprapubic: Cath Placed During This Visit: no Data 11/24/22 04:20 11/24/22 04:20 Micro: Microbiology 11/23/22 06:29 Blood Culture - Preliminary Blood NEGATIVE TO DATE 11/23/22 06:39 Blood Culture - Preliminary Blood NEGATIVE TO DATE A&P Assessment and plan (1) Bowel obstruction: (2) Colostomy in place: (3) Ischemic colon: Plan Postoperative day #2 status post exploratory laparotomy, lysis of adhesions for small bowel obstruction, right hemicolectomy for ischemia and colostomy revision Continue Zosyn as there was some fecal contamination during surgery. Approximately 7 L of stool was suctioned Wean Levophed for MAP over 65 Daily dressing changes with 4 x 4's and tape Medical management per hospitalist-appreciate input Attestations Medical Necessity Statement*: Patient requires multiple more nights in the hospital for intensive care and return of bowel function following surgery Coding Level of Care Code Acute Code for Chg Fwd Diagnoses Bowel obstruction K56.[address] Z93.3 Ischemic colon K55.9
[2022-11-24] MEDS: lactated ringers 1,000 ML 125 ML IV ×2 (14:59→22:33)
[2022-11-24 15:32] LABS: Basophils % 0.2 %; Eosinophils % 0.1 %; Hematocrit 23.5 % (37.0-47.0); Hemoglobin 7.1 g/dL (11.5-15.3); Lymphocytes % 9.8 %; Mean Corpuscular HGB Conc 30.2 g/dL (30.0-36.0); Mean Corpuscular Hemoglobin 26.8 pg (28.0-34.0); Mean Corpuscular Volume 88.7 fl (81-99); Mean Platelet Volume 10.6 fL (7.4-10.4); Monocytes # 0.9 10^3/uL (0.2-0.9); Monocytes % 8.4 %; Neutrophils # 8.24 10^3/uL (1.8-7.7); Neutrophils % 81.1 %; Nucleated Red Blood Cells % 0.2 %; Platelet Count 219 10^3/cmm (130-400); Red Blood Count 2.65 10^6/uL (4.1-5.3); Red Cell Distribution Width 17.6 % (12.1-15.1); White Blood Count 10.2 10^3/uL (4.0-10.0)
[2022-11-24] MEDS: sodium bicarbonate 650 mg Tablet 1300 MG PO ×2 (15:40→22:33)
[2022-11-24] MEDS: vancomycin 1,000 MG in sodium chloride 0.9% 250 ML 250 MG IV (16:20)
[2022-11-24] MEDS: fluconazole premix 200 MG/100 ML PREMIX 100 MG IV (16:21)
[2022-11-24 17:05] LABS: Glucose Point of Care 126 mg/dL (70-110)
[2022-11-24] MEDS: sodium chloride 0.9% (100 ml) 100 ML (17:13)
--- NOTE | 2022-11-24 18:06 | PC.NURSE ---
Plan to extubate patient tomorrow, can turn sedation back on overnight if needed.
[2022-11-24] MEDS: dexmedetomidine 400 MCG in sodium chloride 0.9% (100 ml) 100 ML 13.81 MCG IV (19:49)
[2022-11-24] MEDS: pantoprazole 40 mg SDV IVP (22:33)
[2022-11-24 23:24] LABS: Glucose Point of Care 108 mg/dL (70-110)
[2022-11-25] VITALS (44 sets, daily range): BP systolic 111–130; BP diastolic 70–90; PULSE 69–90; RESP 15–37; TEMP 37.1; O2SAT 86–97
[2022-11-25] MEDS: morphine 4 mg/mL SDV 1 mL IVP ×6 (00:40→23:53)
[2022-11-25 00:50] LABS: Basophils % 0.2 %; Eosinophils % 0.2 %; Lymphocytes # 1.2 10^3/uL (0.8-4.8); Lymphocytes % 9.7 %; Mean Corpuscular HGB Conc 31.2 g/dL (30.0-36.0); Mean Corpuscular Volume 89.7 fl (81-99); Mean Platelet Volume 10.6 fL (7.4-10.4); Monocytes # 0.9 10^3/uL (0.2-0.9); Monocytes % 6.7 %; Neutrophils # 10.58 10^3/uL (1.8-7.7); Neutrophils % 82.8 %; Nucleated Red Blood Cells % 0.2 %; Platelet Count 179 10^3/cmm (130-400); Red Cell Distribution Width 16.8 % (12.1-15.1); White Blood Count 12.8 10^3/uL (4.0-10.0)
[2022-11-25 00:57] LABS: Hematocrit 31.4 % (37.0-47.0); Hemoglobin 9.8 g/dL (11.5-15.3)
[2022-11-25] MEDS: dexmedetomidine 400 MCG in sodium chloride 0.9% (100 ml) 100 ML 16.87 MCG IV (02:20)
[2022-11-25 04:33] LABS: ABG PCO2 30.7 mmHg (35-45); ABG PH Result 7.34 (7.35-7.45); Alveolar-Arterial Oxygen Gradi 12.2 mmHg (5-10); Arterial Blood Gas Hematocrit 43.4 % (37-47); Base Excess ABG -8.2 mmol/L (-2.0-2.0); Blood Gas Operator Identificat JB; Blood Gas Sample Site Brachial, right; Blood Gas Sample Type Arterial; Blood Gas Tidal Volume 0.35; Carboxyhemoglobin 1.6 %THgb (0.4-20.1); HCO3 ABG 16.4 mmol/L (22-26); HGB O2 Sat 94.3 % (95-100); Ionized Calcium Level - ABG 1.1 mmol/L (1.1-1.4); Methemoglobin 0.5 % (0.4-1.5); Oxygen Device VENT; Oxygen Saturation ABG 96.4; PO2 ABG 83.3 mmHg (80.0-100.0); Potassium Level - ABG 3.8 mmol/L (3.5-5.0); Total Hemoglobin 14.2 g/dL (12-16)
[2022-11-25] MEDS: vancomycin 1,000 MG in sodium chloride 0.9% 250 ML 250 MG IV (04:59)
[2022-11-25] MEDS: meropenem 1,000 MG in sodium chloride 0.9% (plus) 50 ML 100 MG IV ×3 (05:41→22:15)
[2022-11-25 05:58] LABS: Magnesium 1.8 mg/dL (1.7-2.3)
[2022-11-25 06:00] LABS: Alanine Aminotransferase 9 U/L (0-33); Alkaline Phosphatase 63 U/L (35-105); Anion Gap 13.7 (5-19); Aspartate Amino Transferase 12 U/L (0-32); Blood Urea Nitrogen 17 mg/dL (6-20); Calcium 7.1 mg/dL (8.5-10.5); Carbon Dioxide 16 mmol/L (22-29); Chloride 110 mmol/L (98-107); Globulin 2.7 g/dL (1.3-4.6); Glomerular Filtration Rate 107.2 mL/min (90-130); Glucose 107 mg/dL (65-115); Osmolality Calculated 284 mOsm/kg (285-295); Potassium 3.7 mmol/L (3.5-5.1); Sodium 136 mmol/L (136-145); Total Bilirubin 0.5 mg/dL (0.15-1.2); Total Protein 4.7 g/dL (6.6-8.7)
--- NOTE | 2022-11-25 06:00 | XRR_ITS ---
PROCEDURE INFORMATION: Exam: XR Chest Exam date and time: 11/25/2022 4:15 AM Age: 47 years old Clinical indication: Device placement; Ett placement (vent status); Prior surgery; Surgery type: Cervical fusion; Patient HX: F/u for continued intubation. Best positioning obtained due to quadriplegia and multiple peritoneal drains in place. ; Additional info: Intubated TECHNIQUE: Imaging protocol: Radiologic exam of the chest. Views: 1 view. COMPARISON: CR (CHEST, ) 11/24/2022 5:04 AM FINDINGS: Tubes, catheters and devices: Central venous catheter terminates at the cavoatrial junction. Enteric tube extends into the left upper quadrant, incompletely assessed. Endotracheal tube position is stable about 1.6 cm above the leo. Lungs: Wedge-shaped opacity in the right perihilar mid lung zone area similar to comparison. Low lung volumes in general. Hazy infrahilar airspace opacities bilaterally. Pleural spaces: Unremarkable. No pleural effusion. No pneumothorax. Heart/Mediastinum: Unremarkable. No cardiomegaly. Bones/joints: Unremarkable. XR/XR chest 1V portable [id number] IMPRESSION: 1. No significant change in the chest. 2. Bilateral lower lung atelectasis changes are suspected.
[2022-11-25 06:08] LABS: Vancomycin Trough 32.1 ug/mL (10-15)
--- NOTE | 2022-11-25 06:23 | PC.NURSE ---
Vanc Trough Vancomycin trough drawn during vancomycin administration. Pharmacy contacted and vanc trough to be redrawn per pharmacy timing.
[2022-11-25] MEDS: dexmedetomidine 400 MCG in sodium chloride 0.9% (100 ml) 100 ML 18.41 MCG IV (08:13)
[2022-11-25] MEDS: lactated ringers 1,000 ML 125 ML IV (08:38)
[2022-11-25] MEDS: sodium bicarbonate 650 mg Tablet 1300 MG PO ×3 (08:38→22:13)
[2022-11-25] MEDS: pregabalin 50 mg Capsule PO ×2 (08:38→17:58)
[2022-11-25] MEDS: heparin 5,000 unit/mL INJ 1 mL 5000 UNIT SUBCUT ×2 (09:15→22:38)
--- NOTE | 2022-11-25 10:07 | PC.SOCIAL ---
IMM Update Pg 2 of IMM updated and placed at bedside. CM will review with patient once extubated.
[2022-11-25 10:17] LABS: Glucose Point of Care 119 mg/dL (70-110)
--- NOTE | 2022-11-25 10:39 | PC.CHAP ---
Pastoral Care Encounter/Spiritual Assessment Type of Contact [] Declined plug saw operator visit [] Patient/Family/Request visit [] Outpatient visit [] Follow-up visit [] Physician referral [] Code/Alert [x] Routine visit [] Staff referral [] Actively dying [] Patient sleeping [] Family support [] [] Out of room [] Palliative care [] [x] Receiving care in room [] Pre-surgical visit [] Trauma [] Long length of stay [x] ICU visit [x] Other: vent Relational/Emotional Strength [] Patient feels connected with others/family/visitors/staff [] Distress [] Loneliness/isolation [] Abandonment Spirituality of Patient [] Person of Susan [] Attends Shinto of their Susan [] Believes in Prayer [] Reads Bible or Christianity materials [] There are Spiritual issues to be addressed [place]ver Interventions [x] Prayer [] Active listening [] Non-anxious presence [] Spiritual/emotional support [] Crisis/trauma care [] Spiritual counseling [] Bereavement support [] Provided bereavement packet [] Provided Bible/devotional materials [] Provided toy/stuffed animal, coloring book to patient or family member [] Provided Communion [] Anointing/Irving [] Salvation [x] Completed spiritual assessment [] Other: Impact on Illness or Injury [] Angry [] Fearful [] Anxious [] Often cries [] Exhaustion [] Unable to work [] Unable to attend quaker [] Unable to walk/stand [] Unable to read [] Unable to drive [] Unable to eat/drink [] Unable to sleep [] Unable to be with family [] Patient intubated [] Other: Summary Time spent with patient
--- NOTE | 2022-11-25 10:51 | P.PN_ITS ---
Subjective Subjective: Patient remains intubated and sedated. On CPAP this morning Vitals/I&O/Wt Last Vital Signs Temp 98.7 F 11/25/22 03:00 Pulse 72 11/25/22 09:00 Resp 23 H 11/25/22 10:02 BP 121/77 11/25/22 09:00 Pulse Ox 94 11/25/22 09:41 O2 Del Method 11/25/22 03:00 O2 Flow Rate 3 11/22/22 17:15 FiO2 30 11/25/22 09:41 11/24/22 11/25/22 11/25/22 22:59 06:59 14:59 Intake Total 2716.951 / 4014.556 1733.434 / 5747.990 66.605 / 66.605 Output Total 190 / 190 180 / 370 Balance 2526.951 / 3824.556 1553.434 / 5377.990 66.605 / 66.605 Physical Exam Narrative: General: Intubated/sedated Abdomen: Soft, nondistended, no guarding rebound or masses Incisions intact without erythema or exudate Ostomy pink patent and producing Drain serosanguineous Urinary Catheter Management: Suprapubic: Cath Placed During This Visit: no Data 11/25/22 00:34 11/25/22 05:11 Micro: Microbiology 11/23/22 06:29 Blood Culture - Preliminary Blood NEGATIVE TO DATE 11/23/22 06:39 Blood Culture - Preliminary Blood NEGATIVE TO DATE A&P Assessment and plan (1) Bowel obstruction: (2) Colostomy in place: (3) Ischemic colon: Plan Postoperative day #3 status post exploratory laparotomy, lysis of adhesions for small bowel obstruction, right hemicolectomy for ischemia and colostomy revision Continue Zosyn as there was some fecal contamination during surgery. Appr oximately 7 L of stool was suctioned Wean Levophed for MAP over 65 Daily dressing changes with 4 x 4's and tape Medical management per hospitalist-appreciate input Attestations Medical Necessity Statement*: Patient requires multiple more nights in the hospital for intensive care and return of bowel function following surgery Coding Level of Care Code Acute Code for Chg Fwd Diagnoses Bowel obstruction K56.[address] Z93.3 Ischemic colon K55.9
--- NOTE | 2022-11-25 13:46 | PC.NURSE ---
Dr. Kunz at bedside, gave order to extubate patient, and v.o. for Dilaudid 0.2 mg IVP q4 hours prn patient extubated per RT
[2022-11-25] MEDS: FUROsemide 10 mg/mL SDV 2mL 20 MG IVP (14:49)
[2022-11-25] MEDS: lidocaine 1% 5 ML in potassium chloride premix 100 ML 52.5 ML IV (14:50)
--- NOTE | 2022-11-25 16:22 | P.PN_ITS ---
Subjective Subjective: Patient was seen and examined this morning afebrile overnight, her other vitals and labs have been reviewed. Medications: Medication Review Details: Generic Name Dose Route Start Last Admin Trade Name Effie PRN Reason Stop Dose Admin Heparin Sodium (Po rcine) 5,000 unit 11/22/22 22:00 11/25/22 09:15 Heparin 5,000 Un it/Ml Inj 1 Ml SUBCUT 5,000 unit Q12H ELISEO Administration Norepinephrine Bit artrate 4 mg 254 mls @ 0 mls/h r 11/22/22 22:15 11/24/22 14:35 / Dextrose IV 2 mcg/min .Q0M ELISEO 7.62 mls/hr Titration Protocol Per Protocol Meropenem 1,000 mg / Sodium 50 mls @ 100 mls/ hr 11/22/22 22:30 11/25/22 14:27 Chloride IV 100 mls/hr Q8H ELISEO Administration Vancomycin HCl 1,0 00 mg/ 250 mls @ 250 mls /hr 11/23/22 17:00 11/25/22 06:12 Sodium Chloride IV Infused Q12H ELISEO Infusion Protocol As Directed Fluconazole 200 mg in 100 mls @ 100 mls/hr 11/23/22 17:00 11/24/22 17:24 Diflucan Premix IV 11/30/22 16:59 Infused Q24H ELISEO Infusion Dexmedetomidine HC l 400 mcg/ 104 mls @ 0 mls/h r 11/24/22 11:15 11/25/22 08:13 Sodium Chloride IV 1.2 mcg/kg/hr .Q0M PRN 18.41 mls/hr AGITATION Administration Protocol Per Protocol Insulin Human Lisp ro 0 unit 11/23/22 11:15 11/25/22 10:24 Insulin Lispro 1 00 Unit/1 Ml SUBCUT Not Given Q6H ELISEO Protocol Morphine Sulfate 4 mg 11/22/22 21:52 11/25/22 12:59 Morphine 4 Mg/Ml Sdv 1 Ml IVP 4 mg Q2H PRN Administration SEVERE PAIN Pantoprazole Sodiu m 40 mg 11/22/22 22:00 11/24/22 22:33 Pantoprazole 40 Mg Sdv IVP 40 mg Q24H ELISEO Administration Pregabalin 50 mg 11/23/22 18:00 11/25/22 08:38 Pregabalin 50 Mg Capsule PO 50 mg BID ELISEO Administration Sodium Bicarbonate 1,300 mg 11/24/22 15:15 11/25/22 14:27 Sodium Bicarbona te 650 Mg Tablet PO 1,300 mg TID ELISEO Administration Vitals/I&O/Wt Last Vital Signs Temp 98.7 F 11/25/22 03:00 Pulse 73 11/25/22 12:00 Resp 19 H 11/25/22 13:44 BP 128/80 11/25/22 12:00 Pulse Ox 96 11/25/22 13:44 O2 Del Method 11/25/22 03:00 O2 Flow Rate 3 11/22/22 17:15 FiO2 30 11/25/22 13:44 11/25/22 11/25/22 11/25/22 06:59 14:59 22:59 Intake Total 1733.434 / 5747.990 66.605 / 66.605 Output Total 180 / 370 Balance 1553.434 / 5377.990 66.605 / 66.605 Physical Exam HENMT: COMMON NORMALS: normocephalic and atraumatic HEAD & SCALP: normoce phalic and atraumatic Resp: COMMON NORMALS: clear to auscultation bilaterally AUSCULTATION: clear to auscultation bilaterally Cardio: COMMON NORMALS: regular rate, regular rhythm, S1 normal heart sound present, S2 normal heart sound present, No gallops present (Cardio), No murmurs present (Cardio), No rub (Cardio) and Peripheral pulses 2+ throughout RATE: regular rate RHYTHM: regular rhythm HEART SOUNDS: S1 normal heart sound present and S2 normal heart sound present PERIPHERAL PULSES: Peripheral pulses 2+ throughout GI: AUSCULTATION: Yes normoactive bowel sounds RECTAL EXAM: deferred OTHER: Incision site intact and clean, ostomy patent. Extremity: COMMON NORMALS: no clubbing, cyanosis or edema and no pedal edema Urinary Catheter Management: Suprapubic: Cath Placed During This Visit: no Data 11/25/22 00:34 11/25/22 05:11 A&P Assessment and plan (1) Septic shock: CT abdomen and pelvis findings appreciated Blood culture Urine culture Lactic acid:2.5 Prior history of ESBL Proteus.M Currently she is on broad-spectrum antibiotics (namely vancomycin, meropenem) Also covered with antifungal fluconazole. Continue Levophed Maintain MAP greater than 65 Decubitus ulcer management as per recent wound care follow-up plan. (2) Bowel obstruction: Postoperative day 1. Now s/p ex lap, right hemicolectomy, colostomy revision for large and small bowel obstruction, right colon ischemia post operative, colostomy and wound care management per surgery (3) Sepsis: (4) Respiratory failure: Currently patient is intubated sedated on mechanical ventilation.Requiring minimal vent settings Monitor ABG, monitor x-ray chest as needed. Daily sedation break, weaning trials as appropriate. (5) Ischemic colon: (6) Metabolic acidosis: Likely secondary to septic shock: Monitor ABG, for now we will start on p.o. sodium bicarb IV fluid has been changed to LR. Low threshold for starting bicarb drip if needed depending upon the acceptable pH goal. As severe metabolic acidosis will interfere with vasopressors effectiveness. (7) Anemia: Possibly postop blood loss S/p 1 unit PRBC transfusion: Currently H&H is stable Monitor H&H Transfuse to maintain hemoglobin greater than 7 (8) Hypomagnesemia: Monitor and replace serum magnesium (9) Hyperphosphatemia: Monitor serum phosphorus (10) Hypoalbuminemia: (11) Hypocalcemia: Plan Plan for today: Continue broad-spectrum antibiotics, patient tolerated weaning trial well has been extubated To nasal cannula, currently Levophed has been turned off, metabolic acidosis is improving: A.m. ABG has been reviewed,continue with oral bicarb replacement. We will discontinue LR. currently she is 9 Ls positive, will give Lasix 20 mg IV one-time dose, monitor intake output. Attestations Medical Necessity Statement*: Needs to be in hospital for management of septic shock. Time Spent in Patient Care: Greater than 35 minutes Critical Care Time: The high probability of a clinically significant, sudden or life threatening deterioration of the patient's [] system(s) required my full and direct attention, intervention and personal management. The critical care time is as shown. This time is in addition to time spent performing any reported procedures but includes the following: [x] Data and vital sign review and interpretation [x] Patient assessment, examination and intervention [x] Documentation [x] Medication orders and management Critical Care Time (min): 40 Coding Level of Care Code Acute Code for [facility] Fwd Diagnoses Septic shock A41.9; R65.21 Bowel obstruction K56.609 Sepsis A41.9 Respiratory failure J96.90 Ischemic colon K55.9 Metabolic acidosis E87.20 Anemia D64.9 Hypomagnesemia E83.42 Hyperphosphatemia E83.39 Hypoalbuminemia E88.09 Hypocalcemia E83.51
[2022-11-25 16:52] LABS: Vancomycin Trough 27.1 ug/mL (10-15)
[2022-11-25 17:50] LABS: Glucose Point of Care 103 mg/dL (70-110)
[2022-11-25] MEDS: fluconazole premix 200 MG/100 ML PREMIX 100 MG IV (17:55)
--- NOTE | 2022-11-25 17:57 | PC.NURSE ---
vanc trough 27, Rx advised to hold dose
[2022-11-25] MEDS: dexmedetomidine 400 MCG in sodium chloride 0.9% (100 ml) 100 ML 13.81 MCG IV (18:57)
[2022-11-25] MEDS: HYDROmorphone 1 mg/mL INJ 1 mL 0.4 MG IVP (20:03)
[2022-11-25] MEDS: pantoprazole 40 mg SDV IVP (22:16)
[2022-11-25 22:50] LABS: Glucose Point of Care 97 mg/dL (70-110)
[2022-11-26] VITALS (51 sets, daily range): BP systolic 110–156; BP diastolic 68–93; PULSE 56–109; RESP 19–37; TEMP 36.6; O2SAT 87–100
[2022-11-26] MEDS: dexmedetomidine 400 MCG in sodium chloride 0.9% (100 ml) 100 ML 18.41 MCG IV ×4 (00:15→17:24)
[2022-11-26] MEDS: HYDROmorphone 1 mg/mL INJ 1 mL 0.4 MG IVP ×5 (01:32→23:54)
[2022-11-26] MEDS: morphine 4 mg/mL SDV 1 mL IVP ×4 (03:12→21:53)
[2022-11-26 03:38] LABS: Alanine Aminotransferase 10 U/L (0-33); Albumin Level 2.2 g/dL (3.5-5.2); Alkaline Phosphatase 92 U/L (35-105); Anion Gap 16.7 (5-19); Aspartate Amino Transferase 11 U/L (0-32); Blood Urea Nitrogen 14 mg/dL (6-20); Calcium 7.5 mg/dL (8.5-10.5); Carbon Dioxide 18 mmol/L (22-29); Chloride 109 mmol/L (98-107); Globulin 2.9 g/dL (1.3-4.6); Glomerular Filtration Rate 107.2 mL/min (90-130); Glucose 97 mg/dL (65-115); Osmolality Calculated 290 mOsm/kg (285-295); Potassium 3.7 mmol/L (3.5-5.1); Sodium 140 mmol/L (136-145); Total Bilirubin 0.2 mg/dL (0.15-1.2); Total Protein 5.1 g/dL (6.6-8.7)
[2022-11-26 03:53] LABS: ABG PCO2 33.1 mmHg (35-45); ABG PH Result 7.35 (7.35-7.45); Arterial Blood Gas Hematocrit 36.3 % (37-47); Base Excess ABG -6.4 mmol/L (-2.0-2.0); Blood Gas Allen Test Pos; Blood Gas Operator Identificat JB; Blood Gas Sample Site Brachial, right; Blood Gas Sample Type Arterial; Carboxyhemoglobin 1.5 %THgb (0.4-20.1); HCO3 ABG 18.3 mmol/L (22-26); HGB O2 Sat 94.2 % (95-100); Ionized Calcium Level - ABG 1.2 mmol/L (1.1-1.4); Methemoglobin 0.8 % (0.4-1.5); Oxygen Device VENTURI; Oxygen Saturation ABG 96.4; PO2 ABG 78.5 mmHg (80.0-100.0); Potassium Level - ABG 3.5 mmol/L (3.5-5.0); Total Hemoglobin 11.9 g/dL (12-16)
[2022-11-26] MEDS: vancomycin 1,000 MG in sodium chloride 0.9% 250 ML 250 MG IV (05:05)
--- NOTE | 2022-11-26 06:00 | XRR_ITS ---
PROCEDURE INFORMATION: Exam: XR Chest Exam date and time: 11/26/2022 6:07 AM Age: 47 years old Clinical indication: Device placement; Ett placement (vent status); Additional info: Intubated TECHNIQUE: Imaging protocol: Radiologic exam of the chest. Views: 1 view. COMPARISON: CR XR chest 1V portable [id number] 11/25/2022 4:15 AM FINDINGS: Tubes, catheters and devices: Endotracheal tube removal. Enteric tube in the stomach. Central venous catheter within distal SVC. Lungs: Low lung volumes with patchy lower lung opacities. Pleural spaces: Unremarkable. No pleural effusion. No pneumothorax. Heart/Mediastinum: Unremarkable. No cardiomegaly. Bones/joints: Unremarkable. XR/XR chest 1V portable [id number] IMPRESSION: 1. Endotracheal tube is no longer visible. 2. No significant changes in lower lung bibasilar opacities.
--- NOTE | 2022-11-26 06:01 | PC.RESP ---
CALLED TO ROOM 0530 PATIENT SP02 LOW PLACED ON HEATED HLIGH FLOW FOR MILD DISTRESS DOCTOR NOTIFIED
[2022-11-26] MEDS: meropenem 1,000 MG in sodium chloride 0.9% (plus) 50 ML 100 MG IV ×3 (06:05→21:35)
[2022-11-26 08:29] LABS: Glucose Point of Care 96 mg/dL (70-110)
[2022-11-26] MEDS: sodium bicarbonate 650 mg Tablet 1300 MG PO (09:00)
[2022-11-26 09:01] LABS: Basophils % 0.1 %; Eosinophils # 0.1 10^3/uL (0.0-0.8); Hematocrit 29.3 % (37.0-47.0); Hemoglobin 9.5 g/dL (11.5-15.3); Lymphocytes # 0.7 10^3/uL (0.8-4.8); Lymphocytes % 9.3 %; Mean Corpuscular HGB Conc 32.4 g/dL (30.0-36.0); Mean Corpuscular Volume 86.4 fl (81-99); Monocytes # 0.5 10^3/uL (0.2-0.9); Monocytes % 5.9 %; Neutrophils # 6.49 10^3/uL (1.8-7.7); Neutrophils % 82.9 %; Nucleated Red Blood Cells % 0 %; Platelet Count 211 10^3/cmm (130-400); Red Blood Count 3.39 10^6/uL (4.1-5.3); Red Cell Distribution Width 16.3 % (12.1-15.1); White Blood Count 7.8 10^3/uL (4.0-10.0)
[2022-11-26] MEDS: pregabalin 50 mg Capsule PO ×2 (09:01→17:24)
[2022-11-26] MEDS: ALPRAZolam 0.5 mg Tablet 0.25 MG PO ×2 (09:01→20:22)
[2022-11-26] MEDS: FUROsemide 10 mg/mL SDV 2mL 20 MG IVP (09:19)
[2022-11-26] MEDS: heparin 5,000 unit/mL INJ 1 mL 5000 UNIT SUBCUT ×2 (09:50→21:13)
--- NOTE | 2022-11-26 10:56 | CTR_ITS ---
PROCEDURE INFORMATION: Exam: CT Abdomen And Pelvis With Contrast Exam date and time: 11/26/2022 1:48 PM Age: 47 years old Clinical indication: Pain; Prior surgery; Surgery type: --colostomy , bladder, hysto, gastrectomy, colon; Additional info: Abdominal pain /colostomy. Abdomen pain, revision of colostomy recently with very little output TECHNIQUE: Imaging protocol: Computed tomography of the abdomen and pelvis with contrast. Axial, coronal and sagittal reformatted images were created and reviewed. Contrast material: OMNI 350; Contrast volume: 100 ml; Contrast route: INTRAVENOUS (IV); Other contrast: Oral; Other protocol: This patient has received 16 known CTs and 0 known cardiac nuclear medicine studies in the 12 months prior to the current study. COMPARISON: CT abdomen pelvis w con* [id number] 11/22/2022 12:20 PM RADIATION DOSE METRICS: Total DLP (mGy-cm): 823.61 FINDINGS: Tubes, catheters and devices: Percutaneous drainage catheters in place. Lungs: Bibasilar dependent consolidations. Pleural spaces: Small, loculated pleural effusions, increased on the right and new on the left. Liver: Unremarkable. Gallbladder and bile ducts: No radiodense gallstones. No biliary ductal dilatation. Pancreas: Unremarkable. Spleen: Unremarkable. Adrenal glands: Hypodense left adrenal thickening, likely secondary to benign hyperplasia or adenomas. Kidneys and ureters: Mild right greater than left hydroureteronephrosis. Nonobstructing left renal calculi. Stomach and bowel: Status post gastric sleeve. Evidence of prior partial colectomy and left lower quadrant colostomy. Prominent colonic wall thickening with associated mural and pericolonic edema. Appendix: Normal. Intraperitoneal space: Small amount of loculated free pelvic fluid. No definite organized collection. No free air. Vasculature: Unremarkable. No aneurysm. Lymph nodes: No pathologically enlarged lymph nodes. Urinary bladder: Dumont catheter in the urinary bladder. Mild circumferential urinary bladder wall thickening, possibly secondary to underdistention. Dependent urinary bladder calculi. Reproductive: Status post hysterectomy. Grossly unchanged 3.6 x 2.7 cm right adnexal cystic lesion. Bones/joints: No acute osseous abnormality. Mild degenerative changes. Soft tissues: Anasarca. CT/CT abdomen pelvis w con* [id number] IMPRESSION: 1. Nonspecific colitis, as described above. 2. Small, loculated pleural effusions, increased on the right and new on the left. 3. Bibasilar dependent consolidations, likely due to atelectasis. Pneumonia can not be excluded. 4. Mild right greater than left hydroureteronephrosis. 5. Additional findings, as above.
[2022-11-26 11:15] LABS: Glucose Point of Care 110 mg/dL (70-110)
--- NOTE | 2022-11-26 12:00 | PC.NURSE ---
First cup of contrast finished.
--- NOTE | 2022-11-26 12:52 | P.PN_ITS ---
Subjective Subjective: Patient was seen and examined this morning, she was complaining of abdominal pain repeat CT abdomen was done. Medications: Medication Review Details: Generic Name Dose Route Start Last Admin Trade Name Freq PRN Reason Stop Dose Admin Alprazolam 0.25 mg 11/23/22 11:03 11/26/22 09:01 Alprazolam 0.5 M g Tablet PO 0.25 mg TID PRN Administration Anxiety Heparin Sodium (Po rcine) 5,000 unit 11/22/22 22:00 11/26/22 09:50 Heparin 5,000 Un it/Ml Inj 1 Ml SUBCUT 5,000 unit Q12H ELISEO Administration Hydromorphone HCl 0.4 mg 11/25/22 13:44 11/26/22 08:51 Hydromorphone 1 Mg/Ml Inj 1 Ml IVP 0.4 mg Q4H PRN Administration MODERATE TO SEVER E PAIN Norepinephrine Bit artrate 4 mg 254 mls @ 0 mls/h r 11/22/22 22:15 11/25/22 22:17 / Dextrose IV Infused .Q0M ELISEO Titration Protocol Per Protocol Meropenem 1,000 mg / Sodium 50 mls @ 100 mls/ hr 11/22/22 22:30 11/26/22 07:00 Chloride IV Infused Q8H ELISEO Infusion Fluconazole 200 mg in 100 mls @ 100 mls/hr 11/23/22 17:00 11/25/22 19:00 Diflucan Premix IV 11/30/22 16:59 Infused Q24H ELISEO Infusion Dexmedetomidine HC l 400 mcg/ 104 mls @ 0 mls/h r 11/24/22 11:15 11/26/22 11:48 Sodium Chloride IV 1.2 mcg/kg/hr .Q0M PRN 18.41 mls/hr AGITATION Administration Protocol Per Protocol Vancomycin HCl 1,0 00 mg/ 250 mls @ 250 mls /hr 11/26/22 05:00 11/26/22 07:00 Sodium Chloride IV Infused Q24H ELISEO Infusion Protocol As Directed Insulin Human Lisp ro 0 unit 11/23/22 11:15 11/26/22 11:33 Insulin Lispro 1 00 Unit/1 Ml SUBCUT Not Given Q6H ELISEO Protocol Morphine Sulfate 4 mg 11/22/22 21:52 11/26/22 03:12 Morphine 4 Mg/Ml Sdv 1 Ml IVP 4 mg Q2H PRN Administration SEVERE PAIN Pantoprazole Sodiu m 40 mg 11/22/22 22:00 11/25/22 22:16 Pantoprazole 40 Mg Sdv IVP 40 mg Q24H ELISEO Administration Pregabalin 50 mg 11/23/22 18:00 11/26/22 09:01 Pregabalin 50 Mg Capsule PO 50 mg BID ELISEO Administration Sodium Bicarbonate 1,300 mg 11/24/22 15:15 11/26/22 09:00 Sodium Bicarbona te 650 Mg Tablet PO 1,300 mg TID ELISEO Administration Vitals/I&O/Wt Last Vital Signs Temp 97.9 F 11/26/22 09:00 Pulse 73 11/26/22 11:29 Resp 28 H 11/26/22 11:29 BP 138/80 11/26/22 11:00 Pulse Ox 95 11/26/22 11:29 O2 Del Method 11/26/22 11:00 O2 Flow Rate 30 11/26/22 11:29 FiO2 70 11/26/22 11:29 11/25/22 11/26/22 11/26/22 22:59 06:59 14:59 Intake Total 1453.028 / 1519.633 126.453 / 1646.086 424 / 424 Output Total 3180 / 3180 110 / 3290 1350 / 1350 Balance -1726.972 / -1660.367 16.453 / -1643.914 -926 / -926 Physical Exam Narrative: Alert awake oriented*3, not in acute distress HENMT: COMMON NORMALS: normocephalic and atraumatic HEAD & SCALP: normocephalic and atraumatic Resp: COMMON NORMALS: clear to auscultation bilaterally AUSCULTATION: clear to auscultation bilaterally Cardio: COMMON NORMALS: regular rate, regular rhythm, S1 normal heart sound present, S2 normal heart sound present, No gallops present (Cardio), No murmurs present (Cardio), No rub (Cardio) and Peripheral pulses 2+ throughout RATE: regular rate RHYTHM: regular rhythm HEART SOUNDS: S1 normal heart sound present and S2 normal heart sound present PERIPHERAL PULSES: Peripheral pulses 2+ throughout GI: AUSCULTATION: Yes normoactive bowel sounds RECTAL EXAM: deferred OTHER: Incision site intact and clean, ostomy patent. Extremity: COMMON NORMALS: no clubbing, cyanosis or edema and no pedal edema Urinary Catheter Management: Suprapubic: Cath Placed During This Visit: no Data 11/26/22 08:41 11/26/22 02:21 Micro: Microbiology 11/24/22 17:16 Urine Culture - Final Urine Catheterized A&P Assessment and plan (1) Septic shock: CT abdomen and pelvis findings appreciated Blood culture: NTD Urine culture: No growth Lactic acid:2.5 Prior history of ESBL Proteus.M Currently she is on broad-spectrum antibiotics (namely vancomycin, meropenem) Also covered with antifungal fluconazole. Was on Levophed Maintain MAP greater than 65 Decubitus ulcer management as per recent wound care follow-up plan. 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 Monitor x-ray chest. Currently she is appropriately covered with broad-spectrum antibiotics. Patient has also received Lasix intermittently, and had made good urine. (5) Ischemic colon: (6) Metabolic acidosis: Likely secondary to septic shock: Monitor ABG, for now we will start on p.o. sodium bicarb IV fluid has been changed to LR. Low threshold for starting bicarb drip if needed depending upon the acceptable pH goal. As severe metabolic acidosis will interfere with vasopressors effectiveness. (7) Anemia: Possibly postop blood loss S/p 1 unit PRBC transfusion: Currently H&H is stable Monitor H&H Transfuse to maintain hemoglobin greater than 7 (8) Hypomagnesemia: Monitor and replace serum magnesium (9) Hyperphosphatemia: Monitor serum phosphorus (10) Hypoalbuminemia: Will give her 1 dose of albumin (11) Hypocalcemia: Has received IV calcium. Monitor serum calcium for now (12) Pneumonia: X-ray chest is suggestive of: Bilateral patchy lower lung opacities. Sputum culture: Monitor x-ray chest Currently she is requiring supplemental oxygen through heated high flow Continue broad-spectrum antibiotics as above Plan B/L Hydroureteronephrosis.: Mild right greater than left hydroureteronephrosis. Urology has seen the patient in the past, and at that time they decided not for any intervention. Attestations Medical Necessity Statement*: In hospital for management of sepsis. Time Spent in Patient Care: Greater than 35 minutes (>than 50% of time spent in counselling and/or direct pt care on unit) . Coding Level of Care Code Acute Code for Chg Fwd Exam Detailed Diagnoses Septic shock A41.9; R65.21 Bowel obstruction K56.609 Sepsis A41.9 Respiratory failure J96.90 Ischemic colon K55.9 Metabolic acidosis E87.20 Anemia D64.9 Hypomagnesemia E83.42 Hyperphosphatemia E83.39 Hypoalbuminemia E88.09 Hypocalcemia E83.51 Pneumonia J18.9
[2022-11-26] MEDS: lanolin oint 7 gm 1 APPLIC TOPICAL (12:53)
[2022-11-26] MEDS: iohexol 350 mg/mL 500 mL Btl (per mL) IV (13:59)
[2022-11-26] MEDS: iohexol 300 mg/mL 50 mL Btl PO (13:59)
--- NOTE | 2022-11-26 14:07 | PC.NURSE ---
Addendum entered by Karlie Lee RN 11/26/22 14:09: Pt denied need for more pain med at this time. Original Note: CT completed. Pt poorly tolerated the last part of the contrast.
--- NOTE | 2022-11-26 15:21 | PC.NURSE ---
Pt will allow staff to lift her up/move her in bed but refuses to lie on her left or right side.
--- NOTE | 2022-11-26 16:11 | ECG_ITS ---
[facility] Test Date: 2022-11-26 Pat Name: Rosanne Morales Department: Room: [facility] Gender: Female Flap Maker: : [id number] Requested By: Andrew Lo Order Number: [id number] Helen MD: Yuri Beyer M.D. Measurements Intervals [place] Rate: 60 P: -18 MT: 175 QRS: 36 QRSD: 90 T: 51 QT: 504 QTc: 505 Interpretive Statements SINUS RHYTHM PROLONGED QT INTERVAL Compared to ECG 10/21/2022 08:07:59 Prolonged QT interval now present Sinus tachycardia no longer present T-wave abnormality no longer present Electronically Signed On 11-26-2022 16:27:11 SECURITY SHIFT MANAGER by Yuri Beyer M.D. [id number]
--- NOTE | 2022-11-26 17:10 | P.PN_ITS ---
Subjective Subjective: Patient is extubated and talking this morning. She was essentially nonstop screaming about abdominal pain until I ordered a CT scan. She calmed down immediately after I told her I would order it. Seems to be anxiety related. Ostomy with good output Vitals/I&O/Wt Last Vital Signs Temp 98 F 11/26/22 14:30 Pulse 56 L 11/26/22 16:30 Resp 22 H 11/26/22 16:30 BP 141/93 11/26/22 16:30 Pulse Ox 92 11/26/22 16:30 O2 Del Method 11/26/22 16:30 O2 Flow Rate 30 11/26/22 16:30 FiO2 86 11/26/22 16:30 11/26/22 11/26/22 11/26/22 06:59 14:59 22:59 Intake Total 126.453 / 9627.174 7676 / 1174 50 / 1224 Output Total 110 / 3290 2750 / 2750 Balance 16.453 / -1643.914 -1576 / -1576 50 / -1526 Physical Exam Narrative: General: In distress, awake alert and oriented x3 Abdomen: Soft, nondistended, no guarding rebound or masses Incisions intact without erythema or exudate Ostomy pink patent and producing Drain serosanguineous Urinary Catheter Management: Suprapubic: Cath Placed During This Visit: no Data 11/26/22 08:41 11/26/22 02:21 Micro: Microbiology 11/24/22 17:16 Urine Culture - Final Urine Catheterized A&P Assessment and plan (1) Bowel obstruction: (2) Colostomy in place: (3) Ischemic colon: Plan Postoperative day #4 status post exploratory laparotomy, lysis of adhesions for small bowel obstruction, right hemicolectomy for ischemia and colostomy revision Continue abx as there was some fecal contamination during surgery. Ap proximately 7 L of stool was suctioned Daily dressing changes with 4 x 4's and tape Clear liquid diet CT showed no acute pathology in the abdomen. Did show small bilateral pleural effusions Hopefully she can be discharged on Thursday Medical management per hospitalist-appreciate input Attestations Medical Necessity Statement*: Patient requires at least a couple more nights in the hospital for recovery after right hemicolectomy and colostomy revision Coding Level of Care Code Acute Code for Chg Fwd Diagnoses Bowel obstruction K56.[address] Z93.3 Ischemic colon K55.9
[2022-11-26 17:20] LABS: Glucose Point of Care 106 mg/dL (70-110)
[2022-11-26] MEDS: fluconazole premix 200 MG/100 ML PREMIX 100 MG IV (17:24)
[2022-11-26] MEDS: sodium chlor 0.45% +KCl 20 mEq 20 MEQ/1,000 ML BAG 75 MEQ IV (17:49)
--- NOTE | 2022-11-26 18:57 | PC.NURSE ---
Shift Note: Pt has had numerous requests and complaints today. She has been difficulty to satisfy. Her Oxygen delivered by heated high flow , now at 30liters and 78%, the prongs on the cannula have irritated her by sticking to her nose even after numerous readjustments. MOrpine and Dilaudid has been admin for pain. She had Precedex infusing, her heart rhythm became leny with pauses this afternoon, so Predex discontinued by Dr Kunz. She did receive on dose of her TID Xanax this morning , it seems to help her relax. Her abdomen has been hurting or uncomfortable, no output this am from colostomy so CT with contrast ordered and completed. Dressing changed [place] drains patent. Dr Lo removed NG this am. and started her on clear liquid diet. Pt did well with the first cup of contrast, the second cup was more difficult for her to ingest, she belched frequently during the process. Minimal drainage out of CARLY drains, 25 Left and 10 Right. Urine output greater than 3900ml this shift. She received albumin and Lasix this am. She has a decubitus on her right buttock. Pt has refused to reposition left or right most of the shift. She has just wanted to be lifted up in bed a few times. She did allow us to use the bed function to rotate her to the left at end of shift. Frequent safety and comfort rounds continue. Orders and/or nursing care completed as indicated. Patient monitored for response to intervention and treatment(s). Education provided includes Precedex, Flucanozole, Lyrica, CT, progress and plan of care. . 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 Will continue to monitor.
[2022-11-26] MEDS: ondansetron 2 mg/ML SDV 2 mL 4 MG IVP (20:23)
[2022-11-26] MEDS: pantoprazole 40 mg SDV IVP (21:13)
--- NOTE | 2022-11-26 21:15 | PC.NURSE ---
Morphine Patient complaining of uncontrolled pain in abdomen and joints; PRN morphine order to at 2200. Dr. Farmer contacted and order received to renew PRN morphine. See MAR for administration.
[2022-11-27] VITALS (64 sets, daily range): BP systolic 99–156; BP diastolic 58–102; PULSE 103–139; RESP 17–35; TEMP 36.5–37.5; O2SAT 83–99
[2022-11-27] MEDS: dextrose 5% + KCl 20 mEq 20 MEQ/1,000 ML BAG 75 MEQ IV (00:33)
--- NOTE | 2022-11-27 01:00 | PC.NURSE ---
Blood Sugar Patient's blood sugar 65 at 2331. Patient refused to drink 4 oz of juice indicated by hypoglycemia protocol, therefore 4 oz jello used instead. Blood sugar recheck resulted at 65 again at 0018. Patient once again refused juice, refused jello, and other alternatives offered. Dr. Farmer contacted and order received for 1/2 amp of D50 IV once and to switch maintenance fluid ordered to D5 with 20 KCL at 75 ml/hr. See MAR for details. Patient's subsequent blood sugars 84 and 125 following administration.
[2022-11-27] MEDS: morphine 4 mg/mL SDV 1 mL IVP ×5 (01:42→23:26)
[2022-11-27 02:07] LABS: Glucose Point of Care 65 mg/dL (70-110)
[2022-11-27 02:07] LABS: Glucose Point of Care 125 mg/dL (70-110)
[2022-11-27 02:07] LABS: Glucose Point of Care 84 mg/dL (70-110)
[2022-11-27 02:07] LABS: Glucose Point of Care 65 mg/dL (70-110)
[2022-11-27 02:34] LABS: Basophils % 0.3 %; Eosinophils # 0.1 10^3/uL (0.0-0.8); Eosinophils % 1.1 %; Hematocrit 30.3 % (37.0-47.0); Hemoglobin 9.7 g/dL (11.5-15.3); Lymphocytes # 0.8 10^3/uL (0.8-4.8); Lymphocytes % 10.3 %; Mean Corpuscular Hemoglobin 27.6 pg (28.0-34.0); Mean Corpuscular Volume 86.3 fl (81-99); Mean Platelet Volume 10.7 fL (7.4-10.4); Monocytes # 0.5 10^3/uL (0.2-0.9); Monocytes % 6.8 %; Neutrophils # 6.25 10^3/uL (1.8-7.7); Neutrophils % 79.8 %; Nucleated Red Blood Cells % 0 %; Platelet Count 293 10^3/cmm (130-400); Red Blood Count 3.51 10^6/uL (4.1-5.3); Red Cell Distribution Width 16.5 % (12.1-15.1); White Blood Count 7.8 10^3/uL (4.0-10.0)
[2022-11-27 02:58] LABS: Alanine Aminotransferase 12 U/L (0-33); Albumin Level 3.1 g/dL (3.5-5.2); Alkaline Phosphatase 70 U/L (35-105); Aspartate Amino Transferase 15 U/L (0-32); Blood Urea Nitrogen 8 mg/dL (6-20); Calcium 8.1 mg/dL (8.5-10.5); Carbon Dioxide 17 mmol/L (22-29); Globulin 2.6 g/dL (1.3-4.6); Glomerular Filtration Rate 107.2 mL/min (90-130); Glucose 104 mg/dL (65-115); Total Bilirubin 0.3 mg/dL (0.15-1.2); Total Protein 5.7 g/dL (6.6-8.7)
--- NOTE | 2022-11-27 03:05 | PC.NURSE ---
Tylenol Patient complaining of uncontrolled pain throughout shift with minimal relief from dilaudid and morphine; Dr. Farmer contacted and order received for 650 mg tylenol PRN Q6H for pain. Tylenol administered in conjunction of dilaudid and morphine for pain relief with no success.
[2022-11-27] MEDS: acetaminophen 325 mg Tablet 650 MG PO (03:12)
[2022-11-27 03:54] LABS: Anion Gap 23.8 (5-19); Chloride 105 mmol/L (98-107); Osmolality Calculated 295 mOsm/kg (285-295); Sodium 143 mmol/L (136-145)
[2022-11-27 03:55] LABS: Potassium 2.8 mmol/L (3.5-5.1)
[2022-11-27] MEDS: vancomycin 1,000 MG in sodium chloride 0.9% 250 ML 250 MG IV (04:14)
[2022-11-27] MEDS: potassium chloride premix 100 ML 25 MEQ IV ×2 (04:20→17:50)
[2022-11-27] MEDS: ALPRAZolam 0.5 mg Tablet 0.25 MG PO (04:23)
[2022-11-27] MEDS: ondansetron 2 mg/ML SDV 2 mL 4 MG IVP ×2 (05:26→21:18)
[2022-11-27] MEDS: HYDROmorphone 1 mg/mL INJ 1 mL 0.4 MG IVP ×3 (05:42→21:15)
[2022-11-27] MEDS: meropenem 1,000 MG in sodium chloride 0.9% (plus) 50 ML 100 MG IV ×3 (05:44→22:34)
[2022-11-27 06:05] LABS: Glucose Point of Care 111 mg/dL (70-110)
[2022-11-27 08:16] LABS: ABG PCO2 32.6 mmHg (35-45); ABG PH Result 7.41 (7.35-7.45); Alveolar-Arterial Oxygen Gradi 57.9 mmHg (5-10); Arterial Blood Gas Hematocrit 32.3 % (37-47); Base Excess ABG -3.7 mmol/L (-2.0-2.0); Blood Gas Allen Test Pos; Blood Gas Operator Identificat MONRO; Blood Gas Sample Site Radial, left; Blood Gas Sample Type Arterial; Carboxyhemoglobin 1.2 %THgb (0.4-20.1); HCO3 ABG 20.4 mmol/L (22-26); HGB O2 Sat 88.5 % (95-100); Ionized Calcium Level - ABG 1.2 mmol/L (1.1-1.4); Methemoglobin 0.4 % (0.4-1.5); Oxygen Device HAG; Oxygen Saturation ABG 89.9; PO2 ABG 53.6 mmHg (80.0-100.0); Potassium Level - ABG 3.5 mmol/L (3.5-5.0); Total Hemoglobin 10.5 g/dL (12-16)
[2022-11-27 08:17] LABS: Glucose Point of Care 103 mg/dL (70-110)
[2022-11-27] MEDS: gabapentin 400 mg Capsule 1200 MG PO ×3 (08:52→21:17)
[2022-11-27] MEDS: pregabalin 50 mg Capsule PO ×2 (08:52→17:50)
--- NOTE | 2022-11-27 09:10 | CT_ITS ---
WS: [id number] CT CHEST ANGIOGRAPHY WITH REFORMATS HISTORY: sob TECHNIQUE: Contiguous axial images are obtained through the chest during arterial injection of intrav enous contrast. Images are reconstructed to evaluate the pulmonary arteries. MIP imaging also reviewe d. All CT scans at [facility] use at least one of these dose optimization techniques: automat ed exposure control; mA and/or kV adjustment per patient size (includes targeted exams where dose is matched to clinical indication); or iterative reconstruction. CONTRAST: Omnipaque 350; 55 mL IV. DLP: 286.92 mGy.cm COMPARISON: 10/22/2022 Very good opacification of the pulmonary arteries. No central pulmonary emboli identified. No filling defects or pulmonary emboli. Pulmonary artery size is equal to the aorta. Very mild atherosclerotic plaque within the aorta. 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 There is a very tiny filling defect within the posterior RIGHT subclavian artery as it crosses the ve rtebral body. Small amount of atherosclerotic plaque. Small bilateral pleural effusions. There is significant volume loss in the LEFT lung due to atelectas is and collapsed. The LEFT upper lower lobes are essentially completely collapsed a small amount of a djacent fluid. There is a complete obstruction involving the proximal LEFT mainstem bronchus which is probably mucus. These findings have progressed since the radiograph of 11/26/2022. No pneumothorax. Partial atelectasis RIGHT lower lobe. No mediastinal or hilar adenopathy. No RIGHT h eart strain. Heart is normal size. Postoperative sutures are noted along the stomach. CT/CT angio chest PE protcl [id number] IMPRESSION: 1. Complete atelectasis LEFT upper and LEFT lower lobes due to obstruction of the proximal LEFT mainstem bronchus which is probably due to mucus again. New a telectasis since 09/25/2022. 2. Small bilateral pleural effusions. 3. No pulmonary embolism. 4. Subsegmental atelectasis RIGHT lung base. Notified Jesse Kunz MD at 11/27/2022 12:42 PM.
[2022-11-27] MEDS: fentaNYL 50 mcg Patch 1 PATCH TRANSDERMA (09:20)
[2022-11-27] MEDS: heparin 5,000 unit/mL INJ 1 mL 5000 UNIT SUBCUT ×2 (09:22→21:18)
--- NOTE | 2022-11-27 09:27 | PM.PN ---
Subjective Subjective: Patient is much more calm this morning but is still reporting right-sided abdominal pain. Abdominal exam is still benign. Good colostomy output. No nausea or vomiting. Tolerated clear liquids Vitals/I&O/Wt Last Vital Signs Temp 98.6 F 11/27/22 04:00 Pulse 108 H 11/27/22 08:21 Resp 24 H 11/27/22 08:59 BP 128/80 11/27/22 07:00 Pulse Ox 84 L 11/27/22 08:59 O2 Del Method 11/27/22 04:00 O2 Flow Rate 30 11/27/22 08:21 FiO2 75 11/27/22 08:21 11/26/22 11/27/22 11/27/22 22:59 06:59 14:59 Intake Total 324.673 / 1698.673 590 / 2288.673 300 / 300 Output Total 2435 / 5185 785 / 5970 Balance -2110.327 / -3486.327 -195 / -3681.327 300 / 300 Weight last 48 hrs Weight 168 lb Physical Exam Narrative: General: In distress, awake alert and oriented x3 Abdomen: Soft, nondistended, no guarding rebound or masses Incisions intact without erythema or exudate Ostomy pink patent and producing Drain serosanguineous Urinary Catheter Management: Suprapubic: Cath Placed During This Visit: no Data 11/27/22 02:14 11/27/22 02:14 Micro: Microbiology 11/24/22 17:16 Urine Culture - Final Urine Catheterized A&P Assessment and plan (1) Bowel obstruction: (2) Colostomy in place: (3) Ischemic colon: Plan Postoperative day #5 status post exploratory laparotomy, lysis of adhesions for small bowel obstruction, right hemicolectomy for ischemia and colostomy revision Continue abx as there was some fecal contamination during surgery. Approximately 7 L of stool was suctioned Daily dressing changes with 4 x 4's and tape Regular diet Plan for discharge tomorrow Medical management per hospitalist-appreciate input Attestations Medical Necessity Statement*: Patient requires at least 1 more night in the hospital for intensive care following exploratory laparotomy Coding Level of Care Code Acute Code for Chg Fwd Diagnoses Bowel obstruction K56.[address] Z93.3 Ischemic colon K55.9
--- NOTE | 2022-11-27 11:16 | PC.SOCIAL ---
IMM Updated Updated pt on IMM. No questions voiced. Provided pt a copy. Initialed, dated, & timed copy in chart.
[2022-11-27 11:23] LABS: Glucose Point of Care 141 mg/dL (70-110)
[2022-11-27] MEDS: insulin lispro 100 unit/1 mL SUBCUT (11:29)
[2022-11-27] MEDS: iohexol 350 mg/mL 500 mL Btl (per mL) IV (11:55)
[2022-11-27] MEDS: lidocaine 1% 5 ML in potassium chloride premix 100 ML 26.25 ML IV (12:24)
[2022-11-27] MEDS: levalbuterol 1.25 mg/3 mL Neb INHALATION ×2 (15:06→20:56)
[2022-11-27] MEDS: ipratropium 0.5 mg/2.5 mL Neb INHALATION ×2 (15:06→20:56)
[2022-11-27] MEDS: sodium chloride 3.5% neb 4 mL Neb INHALATION ×2 (15:07→20:56)
--- NOTE | 2022-11-27 16:38 | PM.PN ---
Subjective Subjective: Patient seen and examined. She is still reporting right-sided abdominal pain. Denies any nausea or vomiting. Good ostomy output. O2 requirements have gone up. She had a CT of the chest which shows mucous plugging of the left lung Vitals/I&O/Wt Last Vital Signs Temp 97.7 F 11/27/22 13:30 Pulse 123 H 11/27/22 15:29 Resp 30 H 11/27/22 15:29 BP 140/88 11/27/22 13:30 Pulse Ox 93 11/27/22 15:29 O2 Del Method 11/27/22 15:15 O2 Flow Rate 40 11/27/22 15:29 FiO2 90 11/27/22 15:29 11/27/22 11/27/22 11/27/22 06:59 14:59 22:59 Intake Total 590 / 2288.673 1408.75 / 1408.75 Output Total 785 / 5970 1352 / 1352 Balance -195 / -3681.327 56.75 / 56.75 Weight last 48 hrs Weight 168 lb Physical Exam Narrative: General: In distress, awake alert and oriented x3 Abdomen: Soft, nondistended, no guarding rebound or masses Incisions intact without erythema or exudate Ostomy pink patent and producing Drain serosanguineous Urinary Catheter Management: Suprapubic: Cath Placed During This Visit: no Data 11/27/22 02:14 11/27/22 02:14 A&P Assessment and plan (1) Bowel obstruction: (2) Colostomy in place: (3) Ischemic colon: Plan Postoperative day #6 status post exploratory laparotomy, lysis of adhesions for small bowel obstruction, right hemicolectomy for ischemia and colostomy revision Continue abx as there was some fecal contamination during surgery. Approximately 7 L of stool was suctioned Pulmonary consult for possible bronchoscopy Regular diet Plan for discharge tomorrow Medical management per hospitalist-appreciate input Attestations Medical Necessity Statement*: Patient requires at least 1 more night in the hospital for intensive care following exploratory laparotomy Coding Level of Care Code Acute Code for Chg Fwd Diagnoses Bowel obstruction K56.[address] Z93.3 Ischemic colon K55.9
[2022-11-27] MEDS: guaiFENesin 600 mg Tablet 1200 MG PO (17:50)
[2022-11-27] MEDS: potassium chloride ER 20 mEq Tablet 40 MEQ PO (17:50)
[2022-11-27] MEDS: magnesium sulfate premix 2 GM/50 ML PIGGYBACK IV (17:51)
[2022-11-27] MEDS: fluconazole premix 200 MG/100 ML PREMIX 100 MG IV (17:51)
--- NOTE | 2022-11-27 18:02 | PM.PN ---
Subjective Subjective: Patient was seen and examined this morning,in view of worsening SOB CTA Chest was done which showed no P/E. Extensive mucus plugging. Medications: Medication Review Details: Generic Name Dose Route Start Last Admin Trade Name Freq PRN Reason Stop Dose Admin Acetaminophen 650 mg 11/27/22 03:05 11/27/22 03:12 Acetaminophen 32 5 Mg Tablet PO 650 mg Q6H PRN Administration MILD PAIN Acetylcysteine 200 mg 11/27/22 16:00 11/27/22 15:07 Mucomyst 200 Mg/ Ml Sdv 30 Ml INHALATION Not Given QID.RESPIRATORY S CH Fentanyl 1 patch 11/27/22 09:00 11/27/22 09:20 Fentanyl 50 Mcg Patch TRANSDERMA 1 patch Q72H ELISEO Administration Gabapentin 1,200 mg 11/27/22 09:00 11/27/22 14:11 Gabapentin 400 M g Capsule PO 1,200 mg TID ELISEO Administration Guaifenesin 1,200 mg 11/27/22 18:00 11/27/22 17:50 Guaifenesin 600 Mg Tablet PO 1,200 mg BID ELISEO Administration Heparin Sodium (Po rcine) 5,000 unit 11/22/22 22:00 11/27/22 09:22 Heparin 5,000 Un it/Ml Inj 1 Ml SUBCUT 5,000 unit Q12H ELISEO Administration Hydromorphone HCl 0.4 mg 11/25/22 13:44 11/27/22 11:27 Hydromorphone 1 Mg/Ml Inj 1 Ml IVP 0.4 mg Q4H PRN Administration MODERATE TO SEVER E PAIN Norepinephrine Bit artrate 4 mg 254 mls @ 0 mls/h r 11/22/22 22:15 11/25/22 22:17 / Dextrose IV Infused .Q0M ELISEO Titration Protocol Per Protocol Meropenem 1,000 mg / Sodium 50 mls @ 100 mls/ hr 11/22/22 22:30 11/27/22 14:11 Chloride IV 100 mls/hr Q8H ELISEO Administration Fluconazole 200 mg in 100 mls @ 100 mls/hr 11/23/22 17:00 11/27/22 17:51 Diflucan Premix IV 11/30/22 16:59 100 mls/hr Q24H ELISEO Administration Vancomycin HCl 1,0 00 mg/ 250 mls @ 250 mls /hr 11/26/22 05:00 11/27/22 07:00 Sodium Chloride IV Infused Q24H ELISEO Infusion Protocol As Directed Potassium Chloride 100 mls @ 25 mls/ hr 11/27/22 16:37 11/27/22 17:50 K-Kade IV 11/27/22 20:36 25 mls/hr ONCE ONE Administration Insulin Human Lisp ro 0 unit 11/23/22 11:15 11/27/22 17:51 Insulin Lispro 1 00 Unit/1 Ml SUBCUT Not Given Q6H [facility] Protocol Ipratropium Bromid e 0.5 mg 11/27/22 16:00 11/27/22 15:06 Ipratropium 0.5 Mg/2.5 Ml Neb INHALATION 0.5 mg QID.RESPIRATORY S CH Administration Lanolin 1 applic 11/23/22 10:08 11/26/22 12:53 Lanolin Oint 7 G m TOPICAL 1 applic PRN PRN Administration DRYNESS Levalbuterol HCl 1.25 mg 11/27/22 16:00 11/27/22 15:06 Levalbuterol 1.2 5 Mg/3 Ml Neb INHALATION 1.25 mg QID.RESPIRATORY S CH Administration Morphine Sulfate 4 mg 11/22/22 21:52 11/27/22 14:12 Morphine 4 Mg/Ml Sdv 1 Ml IVP 4 mg Q2H PRN Administration SEVERE PAIN Ondansetron HCl 4 mg 11/22/22 21:52 11/27/22 05:26 Ondansetron 2 Mg /Ml Sdv 2 Ml IVP 4 mg Q6H PRN Administration vomiting, or N/V if npo Pantoprazole Sodiu m 40 mg 11/22/22 22:00 11/26/22 21:13 Pantoprazole 40 Mg Sdv IVP 40 mg Q24H ELISEO Administration Pregabalin 50 mg 11/23/22 18:00 11/27/22 17:50 Pregabalin 50 Mg Capsule PO 50 mg BID ELISEO Administration Sodium Chloride 4 ml 11/27/22 16:00 11/27/22 15:07 Sodium Chloride 3.5% Neb 4 Ml Neb INHALATION 4 ml QID.RESPIRATORY S CH Administration Vitals/I&O/Wt Last Vital Signs Temp 97.7 F 11/27/22 13:30 Pulse 123 H 11/27/22 15:29 Resp 30 H 11/27/22 15:29 BP 140/88 11/27/22 13:30 Pulse Ox 93 11/27/22 15:29 O2 Del Method 11/27/22 15:15 O2 Flow Rate 40 11/27/22 15:29 FiO2 90 11/27/22 15:29 11/27/22 11/27/22 11/27/22 06:59 14:59 22:59 Intake Total 590 / 2288.673 1408.75 / 1408.75 Output Total 785 / 5970 1352 / 1352 Balance -195 / -3681.327 56.75 / 56.75 Weight last 48 hrs Weight 76.204 kg Physical Exam Narrative: Alert awake oriented*3, not in acute distress Const: COMMON NORMALS: patient oriented x3 HENMT: COMMON NORMALS: normocephalic and atraumatic HEAD & SCALP: normocephalic and atraumatic Resp: COMMON NORMALS: clear to auscultation bilaterally AUSCULTATION: clear to auscultation bilaterally OTHER: Tachypneic, tachycardic diminished air entry, right lung gordon. Cardio: COMMON NORMALS: regular rate, regular rhythm, S1 normal heart sound present, S2 normal heart sound present, No gallops present (Cardio), No murmurs present (Cardio), No rub (Cardio) and Peripheral pulses 2+ throughout RATE: regular rate RHYTHM: regular rhythm HEART SOUNDS: S1 normal heart sound present and S2 normal heart sound present PERIPHERAL PULSES: Peripheral pulses 2+ throughout GI: COMMON NORMALS: Normal to inspection, nondistended, normoactive bowel sounds present, Soft to palpation, non-tender, No hepatosplenomegaly present and no masses AUSCULTATION: Yes normoactive bowel sounds PALPATION: Yes Soft to palpation and Yes No hepatosplenomegaly present RECTAL EXAM: deferred OTHER: Incision site intact and clean, ostomy patent. Extremity: COMMON NORMALS: no clubbing, cyanosis or edema and no pedal edema Neuro: COMMON NORMALS: patient oriented x3 Urinary Catheter Management: Suprapubic: Cath Placed During This Visit: no Data 11/27/22 02:14 11/27/22 02:14 A&P Assessment and plan (1) Septic shock: CT abdomen and pelvis findings appreciated Blood culture: NTD Urine culture: No growth Lactic acid:2.5 Prior history of ESBL Proteus.M Currently she is on broad-spectrum antibiotics (namely vancomycin, meropenem) Also covered with antifungal fluconazole. Was on Levophed Maintain MAP greater than 65 Decubitus ulcer management as per recent wound care follow-up plan. 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 Monitor x-ray chest. Currently she is appropriately covered with broad-spectrum antibiotics. Patient has also received Lasix intermittently, and had made good urine. (5) Ischemic colon: (6) Metabolic acidosis: Likely secondary to septic shock: Monitor ABG, for now we will start on p.o. sodium bicarb IV fluid has been changed to LR. Low threshold for starting bicarb drip if needed depending upon the acceptable pH goal. As severe metabolic acidosis will interfere with vasopressors effectiveness. (7) Anemia: Possibly postop blood loss S/p 1 unit PRBC transfusion: Currently H&H is stable Monitor H&H Transfuse to maintain hemoglobin greater than 7 (8) Hypomagnesemia: Monitor and replace serum magnesium (9) Hyperphosphatemia: Monitor serum phosphorus (10) Hypoalbuminemia: Will give her 1 dose of albumin (11) Hypocalcemia: Has received IV calcium. Monitor serum calcium for now (12) Pneumonia: X-ray chest is suggestive of: Bilateral patchy lower lung opacities. Sputum culture: Monitor x-ray chest Currently she is requiring supplemental oxygen through heated high flow Continue broad-spectrum antibiotics as above Plan B/L Hydroureteronephrosis.: Mild right greater than left hydroureteronephrosis. Urology has seen the patient in the past, and at that time they decided not for any intervention. Attestations Medical Necessity Statement*: Needs to be in hospital for R/F. Critical Care Time: The high probability of a clinically significant, sudden or life threatening deterioration of the patient's [] system(s) required my full and direct attention, intervention and personal management. The critical care time is as shown. This time is in addition to time spent performing any reported procedures but includes the following: [x] Data and vital sign review and interpretation [x] Patient assessment, examination and intervention [x] Documentation [x] Medication orders and management Critical Care Time (min): 45 Coding Level of Care Code Acute Code for Chg Fwd Exam Detailed Diagnoses Septic shock A41.9; R65.21 Bowel obstruction K56.609 Sepsis A41.9 Respiratory failure J96.90 Ischemic colon K55.9 Metabolic acidosis E87.20 Anemia D64.9 Hypomagnesemia E83.42 Hyperphosphatemia E83.39 Hypoalbuminemia E88.09 Hypocalcemia E83.51 Pneumonia J18.9
[2022-11-27 18:26] LABS: Glucose Point of Care 113 mg/dL (70-110)
--- NOTE | 2022-11-27 19:30 | PC.NURSE ---
Addendum entered by Karlie Lee RN 11/28/22 20:49: Pt's voice much stronger today than yesterday, she can be heart clearly at the nurses station now. Original Note: Shift Note: Pt started the day off on Heated high flow 30L and 78%. Her O2 needs have increased, she is now at40L and 90%. She is flushed today and had a low grad temp of 99.5. Her left lung sound is so diminished it sounds absent. CT of chest completed today, left side 'belinda out' Mucinex started today. Her fentanyl patch and gabapentin restarted today. Her voice is stronger today, staff does not need to lean over bed to hear it today. She has complained of abdominal pain throughout the shift. Pain medical records director multiple times, see MAR. Frequent flatulence noted, her stoma/colostomy can be heard gurgling at bedside. Appliance had required 'burping' numerous times this shift. Minimal drainage out of colostomy. Frequent discussion with patient about expectations of pain med not going to help much with abdominal pain due gas. HP drains patent and draing, left output much greater than right ( 140 and 12 respectively). Urine output, more than adequate at 2300ml. Frequent safety and comfort rounds continue. Orders and/or nursing care completed as indicated. Patient monitored for response to intervention and treatment(s). Education provided include Plan of care, progress,expectations, and mucinex . Patient and/or volunteer patient representative verbalized understanding of discussed topics. Will continue to monitor.
[2022-11-27] MEDS: pantoprazole 40 mg SDV IVP (21:17)
[2022-11-27 22:31] LABS: Glucose Point of Care 189 mg/dL (70-110)
[2022-11-28] VITALS (52 sets, daily range): BP systolic 88–123; BP diastolic 60–96; PULSE 97–126; RESP 15–35; TEMP 37.1; O2SAT 88–100
[2022-11-28] MEDS: HYDROmorphone 1 mg/mL INJ 1 mL 0.4 MG IVP ×4 (02:44→23:01)
[2022-11-28 03:51] LABS: Basophils % 0.3 %; Eosinophils # 0.1 10^3/uL (0.0-0.8); Eosinophils % 0.8 %; Hematocrit 31.3 % (37.0-47.0); Hemoglobin 9.9 g/dL (11.5-15.3); Lymphocytes # 1.2 10^3/uL (0.8-4.8); Lymphocytes % 19.1 %; Mean Corpuscular HGB Conc 31.6 g/dL (30.0-36.0); Mean Corpuscular Hemoglobin 28.1 pg (28.0-34.0); Mean Corpuscular Volume 88.9 fl (81-99); Mean Platelet Volume 10.7 fL (7.4-10.4); Monocytes # 0.7 10^3/uL (0.2-0.9); Neutrophils # 3.98 10^3/uL (1.8-7.7); Neutrophils % 65.5 %; Nucleated Red Blood Cells % 0.3 %; Platelet Count 362 10^3/cmm (130-400); Red Blood Count 3.52 10^6/uL (4.1-5.3); Red Cell Distribution Width 17.2 % (12.1-15.1); White Blood Count 6.1 10^3/uL (4.0-10.0)
[2022-11-28 04:35] LABS: Alanine Aminotransferase 17 U/L (0-33); Albumin Level 2.9 g/dL (3.5-5.2); Alkaline Phosphatase 75 U/L (35-105); Anion Gap 15.7 (5-19); Aspartate Amino Transferase 34 U/L (0-32); Blood Urea Nitrogen 4 mg/dL (6-20); Calcium 8.2 mg/dL (8.5-10.5); Carbon Dioxide 24 mmol/L (22-29); Chloride 106 mmol/L (98-107); Globulin 2.9 g/dL (1.3-4.6); Glomerular Filtration Rate 132.2 mL/min (90-130); Glucose 116 mg/dL (65-115); Magnesium 1.9 mg/dL (1.7-2.3); Osmolality Calculated 290 mOsm/kg (285-295); Phosphorus 1.8 mg/dL (2.5-4.5); Potassium 4.7 mmol/L (3.5-5.1); Sodium 141 mmol/L (136-145); Total Bilirubin 0.2 mg/dL (0.15-1.2); Total Protein 5.8 g/dL (6.6-8.7)
--- NOTE | 2022-11-28 05:00 | XR_ITS ---
WS: [id number] Portable AP semiupright chest, 11/28/2022 Clinical Data: Lt lung atelectasis Comparison: Portable chest, 11/26/2022 Findings: There is total opacification of the left thorax which probably represents worsening atelect asis. The heart is obscured by the opacity. The right basilar lung opacity remains the same. There ar e no nodules or masses. There is a dextroscoliosis of the thoracic spine. There is a right subclavian catheter which ends at the caval atrial junction. Monitor leads are on the chest wall. XR/XR chest 1V portable [id number] Impression: 1. Increasing opacification of the left thorax with shift of the heart and medi astinum from right to left. 2. No change in right basilar lung opacity.
[2022-11-28] MEDS: vancomycin 1,000 MG in sodium chloride 0.9% 250 ML 250 MG IV (05:37)
[2022-11-28] MEDS: meropenem 1,000 MG in sodium chloride 0.9% (plus) 50 ML 100 MG IV ×3 (05:39→22:56)
[2022-11-28] MEDS: levalbuterol 1.25 mg/3 mL Neb INHALATION ×4 (07:55→19:31)
[2022-11-28] MEDS: sodium chloride 3.5% neb 4 mL Neb INHALATION ×4 (07:55→19:31)
[2022-11-28] MEDS: ipratropium 0.5 mg/2.5 mL Neb INHALATION ×4 (07:55→19:31)
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
[2022-11-28 08:07] LABS: Glucose Point of Care 129 mg/dL (70-110)
[2022-11-28] MEDS: sodium chloride 0.9% 1,000 ML 30 ML IV (08:20)
--- NOTE | 2022-11-28 08:25 | PM.PN ---
Subjective Subjective: Patient seen and examined. Reports that her abdominal pain has improved. Denies any nausea or vomiting. Good ostomy output. O2 requirements have gone up. She had a CT of the chest which shows mucous plugging of the left lung and she is going for bronchoscopy this morning Vitals/I&O/Wt Last Vital Signs Temp 98.0 F 11/27/22 20:00 Pulse 113 H 11/28/22 08:00 Resp 30 H 11/28/22 08:00 BP 92/62 11/28/22 04:00 Pulse Ox 96 11/28/22 08:00 O2 Del Method 11/28/22 07:59 O2 Flow Rate 40 11/28/22 08:00 FiO2 90 11/28/22 08:00 11/27/22 11/28/22 11/28/22 22:59 06:59 14:59 Intake Total 570 / 2028.75 100 / 2128.75 Output Total 1100 / 2452 920 / 3372 Balance -530 / -423.25 -820 / -1243.25 Weight last 48 hrs Weight 168 lb Physical Exam Narrative: General: In distress, awake alert and oriented x3 Abdomen: Soft, nondistended, no guarding rebound or masses Incisions intact without erythema or exudate Ostomy pink patent and producing Drain serosanguineous Urinary Catheter Management: Suprapubic: Cath Placed During This Visit: no Data 11/28/22 02:47 11/28/22 02:47 Micro: Microbiology 11/23/22 06:29 Blood Culture - Final Blood NO GROWTH AFTER 5 DAYS 11/23/22 06:39 Blood Culture - Final Blood NO GROWTH AFTER 5 DAYS A&P Assessment and plan (1) Bowel obstruction: (2) Colostomy in place: (3) Ischemic colon: Plan Postoperative day #6 status post exploratory laparotomy, lysis of adhesions for small bowel obstruction, right hemicolectomy for ischemia and colostomy revision Continue abx as there was some fecal contamination during surgery. Approximately 7 L of stool was suctioned Pulmonary consult for possible bronchoscopy Regular diet Medical management per hospitalist-appreciate input Attestations Medical Necessity Statement*: Patient requires at least 1 more night in the hospital for intensive care following exploratory laparotomy Coding Level of Care Code Acute Code for Chg Fwd Diagnoses Bowel obstruction K56.[address] Z93.3 Ischemic colon K55.9
[2022-11-28] MEDS: lidocaine 1% INJ 10 mL (per mL) 20 ML XX (08:35)
--- NOTE | 2022-11-28 08:44 | XR_ITS ---
WS: [id number] Portable AP upright chest, 11/28/2022, 0854 hours Clinical Data: POST BRONCHOSCOPY Comparison: Portable chest, 11/28/2022, 0529 hours. Findings: Following bronchoscopy there is improved aeration of the left lung with residual patchy opa cities. The mediastinal shift has also improved. The patchy atelectasis in the right lower lobe remai ns the same. The right subclavian catheter remains in the same position. There is a dextroscoliosis o f the thoracic spine. The patient has had a posterior cervical fusion. There are left upper quadrant surgical clips. XR/XR chest 1V portable [id number] Impression: Improved aeration of left lung following bronchoscopy.
--- NOTE | 2022-11-28 08:50 | P.ANESASSM_ITS ---
Pre-Anesthetic Assessment Height/Weight: Height 1.63 m Weight 76.204 kg Temp Pulse Resp BP Pulse Ox O2 Del Method O2 Flow Rate 98.0 F 113 H 30 H 92/62 96 40 11/27/22 20:00 11/28/22 08:00 11/28/22 08:00 11/28/22 04:00 11/28/22 08:00 11/28/22 07:59 11/28/22 08:00 FiO2 90 11/28/22 08:00 Preop Diagnosis: Chronic neurogenic bladder with recent SP tube placement Operation Date: 11/22/22 16:00 Proposed Procedures p Colostomy Revision(Not Applicable) - Andrew Lo DO Operation Date: 11/28/22 08:10 Proposed Procedures p Bronchoscopy(Not Applicable) - Hoang Bradshaw MD Familial anesthetic complications: none Was Beta Rolando taken within 24 hours: N/A Was Clonidine taken within 24 hours: N/A Social No alcohol and No tobacco Exam alert and oriented x 3 tachy, rhonchi Airway Submandibular: within normal limits Cervical ROM: within normal limits Mallampati: Class III Dentition: false Pulmonary Respiratory failure, pneumonia CV/HEM Anemia renal insufficiency GI ischemic colon Metabolic Morbid Obesity Neuropsych Anxiety and Depression Quadraplegia Anesthetic Plan ASA status: 4 Anesthesia: General Medications/Allergies Home Medications Medication Instructions Recorded Confirmed Last Taken Type ascorbic acid (vitamin C) 1,000 mg 1,000 mg PO BID@,04/22/20 11/22/22 11/22/22 History tablet (Vitamin C) pantoprazole 40 mg tablet,delayed 40 mg PO DAILY 04/22/20 11/22/22 11/22/22 History release sennosides 8.6 mg-docusate sodium 2 tab PO BID@,05/28/20 11/22/22 11/22/22 History 50 mg tablet (Senna Plus) alprazolam 0.25 mg tablet (Xanax) 0.25 mg PO TID PRN Anxiety #10 tabs 11/22/20 11/22/22 11/20/22 Rx fentanyl 50 mcg/hr transdermal 1 patch transdermal Q72H #5 ea 11/22/20 11/22/22 11/20/22 Rx patch morphine concentrate 100 mg/5 mL 5 mg (0.25 mL) PO Q4H PRN Pain #30 11/22/20 11/22/22 11/11/22 Rx (20 mg/mL) oral solution mL acetaminophen 500 mg tablet 500 mg PO Q6H PRN Pain 08/17/21 11/22/22 11/20/22 History naloxone 0.4 mg/mL injection 0.4 mg IM Q2M PRN overdose 08/17/21 11/22/22 Unknown History solution pravastatin 40 mg tablet 40 mg PO BEDTIME 08/17/21 11/22/22 11/21/22 History simethicone 80 mg chewable tablet 80 mg PO TIDWM 08/17/21 11/22/22 11/22/22 History methylnaltrexone 12 mg/0.6 mL 0.6 ml SUBCUT Q3D PRN Constipation 01/24/22 11/22/22 11/11/22 History subcutaneous syringe (Relistor) ondansetron HCl 4 mg tablet 4 mg PO Q6H PRN Nausea 01/24/22 11/22/22 11/07/22 History docusate sodium 100 mg capsule 100 mg PO BID 02/11/22 11/22/22 11/22/22 History (Colace) gabapentin 600 mg tablet 1,200 mg PO TID 02/11/22 11/22/22 11/22/22 History calcium carbonate 400 mg calcium 400 mg PO DAILY PRN Heartburn 03/06/22 11/22/22 06/03/22 History (1,000 mg) chewable tablet (Tums Ultra) insulin lispro 100 unit/mL See Rx Instructions .Route .COMPLEX 03/06/22 11/22/22 11/13/22 History subcutaneous pen (Humalog KwikPen (U-100) Insulin) pregabalin 50 mg capsule (Lyrica) 50 mg PO BID 03/06/22 11/22/22 11/22/22 History potassium chloride 20 mEq 20 meq PO DAILY 03/28/22 11/22/22 11/22/22 History tablet,extended release lidocaine 5 % topical patch 1 patch topical Q12H 05/12/22 11/22/22 11/22/22 History metformin 1,000 mg tablet 1,000 mg PO BID 05/12/22 11/22/22 11/22/22 History sertraline 50 mg tablet 50 mg PO DAILY 05/12/22 11/22/2223 History linaclotide 145 mcg capsule 145 mcg PO DAILY 07/31/22 11/22/22 11/22/22 History (Sharrizess) cyclobenzaprine 5 mg tablet 5 mg PO TID PRN Muscle Pain 10/21/22 11/22/22 11/11/22 History diclofenac sodium 1 % topical gel 2 g topical BID PRN Pain 10/21/22 11/22/22 11/12/22 History lidocaine 4 % topical cream 1 applic topical BID PRN Pain 10/21/22 11/22/22 Unknown History methenamine hippurate 1 gram tablet 1 g PO BID 10/21/22 11/22/22 11/22/22 His tory oxybutynin chloride 5 mg tablet 5 mg PO TID 10/21/22 11/22/22 11/22/22 History sitagliptin phosphate 25 mg tablet 25 mg PO DAILY 10/21/22 11/22/22 11/22/22 History (Januvia) sitagliptin phosphate 50 mg tablet 50 mg PO DAILY 10/21/22 11/22/22 11/22/22 History (Januvia) fosfomycin tromethamine 3 gram 3 g PO Q3D 30 days #10 ea 10/26/22 11/22/22 11/20/22 Rx oral packet bisacodyl 10 mg rectal suppository 10 mg VA DAILY PRN Constipation 11/11/22 11/22/22 11/10/22 History ketoconazole 2 % topical cream 1 applic topical BID 11/13/22 11/22/22 11/13/22 History magnesium hydroxide 400 mg/5 mL 5 ml PO TID PRN constipation #355 11/18/22 11/22/22 Unknown Rx oral suspension (Milk of Magnesia) mL metoclopramide HCl 5 mg tablet 5 mg PO DAILY PRN nausea and 11/18/22 11/22/22 11/20/22 Rx (Reglan) vomiting #14 tabs polyethylene glycol 3350 17 gram 17 g PO DAILY #30 ea 11/18/22 11/22/22 11/22/22 Rx oral powder packet hydroxyzine HCl 25 mg tablet 50 mg PO Q6H PRN Anxiety 11/22/22 11/22/22 Unknown History oxycodone-acetaminophen 5 mg-325 1 - 2 tab PO Q6H PRN Pain 11/22/22 11/22/22 Unknown History mg tablet Allergies Allergy/AdvReac Type Severity Reaction Status Date / Time No Known Allergies Allergy Verified 11/20/22 17:34 Current Medications Generic Name Dose Route Start Last Admin Trade Name Michaelq PRN Reason Stop Dose Admin Acetaminophen 650 mg 11/27/22 03:05 11/27/22 03:12 Acetaminophen 325 Mg Tablet PO 650 mg Q6H PRN Administration MILD PAIN Fentanyl 1 patch 11/27/22 09:00 11/27/22 09:20 Fentanyl 50 Mcg Patch TRANSDERMA 1 patch Q72H ELISEO Administration Gabapentin 1,200 mg 11/27/22 09:00 11/27/22 21:17 Gabapentin 400 Mg Capsule PO 1,200 mg TID ELISEO Administration Guaifenesin 1,200 mg 11/27/22 18:00 11/27/22 17:50 Guaifenesin 600 Mg Tablet PO 1,200 mg BID ELISEO Administration Norepinephrine Bitartrate 4 mg 254 mls @ 0 mls/hr 11/22/22 22:15 11/25/22 22:17 / Dextrose IV Infused .Q0M ELISEO Titration Protocol Per Protocol Meropenem 1,000 mg/ Sodium 50 mls @ 100 mls/hr 11/22/22 22:30 11/28/22 06:17 Chloride IV Infused Q8H ELISEO Infusion Fluconazole 200 mg in 100 mls @ 100 mls/hr 11/23/22 17:00 11/27/22 19:22 Diflucan Premix IV 11/30/22 16:59 Infused Q24H ELISEO Infusion Vancomycin HCl 1,000 mg/ 250 mls @ 250 mls/hr 11/26/22 05:00 11/28/22 05:37 Sodium Chloride IV 250 mls/hr Q24H ELISEO Administration Protocol As Directed Sodium Chloride 1,000 mls @ 30 mls/hr 11/28/22 08:15 11/28/22 08:20 Sodium Chloride 0.9% IV 30 mls/hr .Q24H ELISEO Administration Insulin Human Lispro 0 unit 11/23/22 11:15 11/28/22 04:44 Insulin Lispro 100 Unit/1 Ml SUBCUT Not Given Q6H ELISEO Protocol Ipratropium [place] 0.5 mg 11/27/22 16:00 11/28/22 07:55 Ipratropium 0.5 Mg/2.5 Ml Neb INHALATION 0.5 mg QID.RESPIRATORY ELISEO Administration Lanolin 1 applic 11/23/22 10:08 11/26/22 12:53 Lanolin Oint 7 Gm TOPICAL 1 applic PRN PRN Administration DRYNESS Levalbuterol HCl 1.25 mg 11/27/22 16:00 11/28/22 07:55 Levalbuterol 1.25 Mg/3 Ml Neb INHALATION 1.25 mg QID.RESPIRATORY ELISEO Administration Ondansetron HCl 4 mg 11/22/22 21:52 11/27/22 21:18 Ondansetron 2 Mg/Ml Sdv 2 Ml IVP 4 mg Q6H PRN Administration vomiting, or N/V if npo Pantoprazole Sodium 40 mg 11/22/22 22:00 11/27/22 21:17 Pantoprazole 40 Mg Sdv IVP 40 mg Q24H ELISEO Administration Pregabalin 50 mg 11/23/22 18:00 11/27/22 17:50 Pregabalin 50 Mg Capsule PO 50 mg BID ELISEO Administration Sodium Chloride 4 ml 11/27/22 16:00 11/28/22 07:55 Sodium Chloride 3.5% Neb 4 Ml Neb INHALATION 4 ml QID.RESPIRATORY ELISEO Administration PFSH Anesthesia Medical History Anxiety Chronic kidney disease Colostomy in place COVID-19 (~2019) Depression Diabetes mellitus, type II GERD (gastroesophageal reflux disease) History of ESBL E. coli infection Hydronephrosis Hyperlipidemia half-way prescription opiate use Neurogenic bladder Neuropathic pain PVD (peripheral vascular disease) Quadriplegia secondary to trauma Recurrent sepsis due to urinary tract infection Sacral decubitus ulcer Sacral decubitus ulcer, stage IV Suprapubic catheter Therapeutic opioid induced constipation Urinary retention Surgical History H/O bladder repair surgery H/O cystoscopy H/O partial cystectomy H/O Spinal surgery History of hysterectomy History of partial gastrectomy (12/2019) due to perforated viscous from gastric ulcer Family History Other CAD (coronary artery disease) Diabetes Hypertension Social History Smoking and tobacco status: never smoked Alcohol intake: never Housing: [facility] Marital status: Current occupational status: disabled Data Anesthesia 11/28/22 02:47 11/28/22 02:47 Short CBC 11/26/22 11/27/22 11/28/22 Range/Units 08:41 02:14 02:47 WBC 7.8 7.8 6.1 (4.0-10.0) 10^3/uL Hgb 9.5 L 9.7 L 9.9 L (11.5-15.3) g/dL Hct 29.3 L 30.3 L 31.3 L (37.0-47.0) % MCV 86.4 86.3 88.9 (81-99) fl Plt Count 211 293 D 362 (130-400) 10^3/cmm Neut % (Auto) 82.9 79.8 65.5 % Neut # (Auto) 6.49 6.25 3.98 (1.8-7.7) 10^3/uL BMP 11/27/22 11/28/22 02:14 02:47 Sodium 143 141 Potassium 2.8 L* D 4.7 Chloride 105 106 Carbon Dioxide 17 L 24 BUN 8 4 L Creatinine 0.6 0.5 Glucose 104 116 H Calcium 8.1 L 8.2 L Liver Function 11/27/22 11/28/22 Range/Units 02:14 02:47 Total Bilirubin 0.3 0.2 (0.15-1.2) mg/dL AST 15 34 H (0-32) U/L ALT 12 17 (0-33) U/L Alkaline Phosphatase 70 75 (35-105) U/L Albumin 3.1 L 2.9 L (3.5-5.2) g/dL ABG 11/27/22 08:04 Specimen Type Arterial Sample Site Radial, left ABG pH 7.41 ABG pCO2 32.6 L ABG pO2 53.6 L ABG HCO3 20.4 L ABG O2 Saturation 89.9 ABG Base Excess -3.7 L A-a O2 Gradient 57.9 H O2 Delivery Device Hag O2 Liters/Min 30.0 FiO2 75.0 Microbiology 11/23/22 06:29 Blood Culture - Final Blood NO GROWTH AFTER 5 DAYS 11/23/22 06:39 Blood Culture - Final Blood NO GROWTH AFTER 5 DAYS Cardiac Studies: No Data to Display
--- NOTE | 2022-11-28 08:58 | PM.OP ---
Operative Report Date of procedure: November 28, 2022 Pre-op diagnosis: Preop Diagnosis left lung atelectasis due to mucous plugging causing leftward mediastinal shift Post-op diagnosis: Same Procedure done: 49074 Dx Bronchoscope w/Washings or airway inspection 43922 Dx Bronchoscope w/BAL 73105 Bronchoscopy w/ therapeutic aspiration of the tracheobronchial tree (clearance of airway secretions, removal of mucus plugs) Surgeon: Hoang Bradshaw MD [facility] Brief History: Rosanne Morales is a 47 year old female with past medical history of quadriplegia suprapubic catheter neurogenic bladder, recurrent ESBL UTIs, opioid-induced chronic constipation, recently admitted here in [facility] between 11/13/2022-11 18 2022 for constipation and obstipation, colonic dilation s/p diverting colostomy to improve quality of life.? Her postop stay was uneventful and was discharged on 11/18/2022.She presented to hospital ER 11/22/2022 for new onset abdominal pain.? CT in ER showed concerning for colonic obstruction possible appendicitis, small bowel obstruction and fluid collection in left anterior abdomen near the colostomy.? She was taken to the OR for exploratory laparotomy with right hemicolectomy and colostomy revision.? She was extubated on postop day 3.? And placed on Venturi mask 8 L initially.? Unfortunately her FiO2 requirements have increased and currently she is on heated high flow 40 L 90%.? Her daily chest x-ray showed worsening of left lung opacities with possible mucous plugging.? CTA obtained 11/27/2022 showed complete atelectasis of left upper and left lower lobes due to obstruction of the proximal left main bronchus which is probably due to mucous plug there are small bilateral effusions. Pulmonary consulted for bronchoscopy for therapeutic aspiration of mucous plugging with the hope that it will improve her oxygenation. Procedure: Indication: CT evidence of left upper lobe and left lower lobe atelectasis secondary to possible left mainstem mucous plugging causing ipsilateral mediastinal shift Consent: Consents were obtained from patient. She could not sign as she is quadriplegic but gave verbal consent as witnessed by RN. Consents were placed in the chart Pre-procedure Evaluation: Patient was evaluated clinically and ancillary testing reviewed. The risk of having active MTB infection is very low in my clinical judgement. ASA: 4 Malampati score: unable to evaluate due to presence of endotracheal tube Time out: Performed by the procedure team. Vent support maintained on Fio2 100. Anesthesia: General anesthesia as managed by anesthesia team Local anesthesia: The leo, right and left mainstem bronchi were anesthetized with 1% lidocaine, 6 mL. Summary of Significant Findings: -Bronchoscope passed through ET tube used for initial inspection (41356) and airway clearance. The scope was advanced through the ET tube. The lower trachea mucosa appeared normal, no endotracheal lesion was seen. There were some purulent mucus secretions which were suctioned right away. The leo was sharp. The leo, the right and left mainstem bronchi are anesthetized with 1% lidocaine. In a systematic manner bilateral bronchial tree was then examined. The bronchoscope was then introduced into the right mainstem bronchus. The right upper lobe, right middle lobe and right lower lobe bronchi were examined up to the third subsegmental level and no abnormalities were identified. The mucosa appeared normal with no endobronchial lesions, active bleeding. There were some purulent secretions which were suctioned right away. The bronchoscope was advanced into the left mainstem bronchus. There were significant mucopurulent secretions blocking left main bronchus and all subsegments of the left lower lobe as well as upper lobe segments. All the secretions were suctioned right away (98503). The mucosa appeared normal with no endobronchial lesions. The left upper lobe, lingula and left lower lobe bronchi were examined up to the third subsegmental level and no abnormalities were identified. Mucosa appeared normal with no endobronchial lesion, active bleeding or mucous plug. The bronchoscope was wedged into left lower lobe segments and instilled 50 mL normal saline and aspirated 15 cc bronchoalveolar lavage (99167). The bronchoscope was then removed and the procedure terminated. Estimated Blood Loss: None Specimens: Bronchoalveolar lavage (72816) from left lower lobe sent for cultures, fluid analysis, ova and parasites Complications:None; patient tolerated the procedure well. Disposition: We were able to extubate patient to 8 L on Venturi mask and transferred back to ICU Surgeon: Hoang Bradshaw MD, [facility] Pulmonary critical Care Medicine [facility]
[2022-11-28 09:08] LABS: Apprearance, Bronch Wash Cloudy (CLEAR); Color, Bronc Wash Slight Pink
[2022-11-28 09:13] LABS: Cyto Order Verification Order Verified
--- NOTE | 2022-11-28 09:52 | PC.CHAP ---
Pastoral Care Encounter/Spiritual Assessment Type of Contact [] Declined qa test lead visit [] Patient/Family/Request visit [] Outpatient visit [] Follow-up visit [] Physician referral [] Code/Alert [x] Routine visit [] Staff referral [] Actively dying [] Patient sleeping [] Family support [] [] Out of room [] Palliative care [] [] Receiving care in room [] Pre-surgical visit [] Trauma [] Long length of stay [x] ICU visit [x] Other:PT communicating better... requested a second prayer shawl... Relational/Emotional Strength [] Patient feels connected with others/family/visitors/staff [] Distress [] Loneliness/isolation [] Abandonment Spirituality of Patient [] Person of Susan [] Attends Buddhism of their Susan [] Believes in Prayer [] Reads Bible or Yarsani materials [] There are Spiritual issues to be addressed Rides Attendant Interventions [x] Prayer [] Active listening [] Non-anxious presence [] Spiritual/emotional support [] Crisis/trauma care [] Spiritual counseling [] Bereavement support [] Provided bereavement packet [] Provided Bible/devotional materials [] Provided toy/stuffed animal, coloring book to patient or family member [] Provided Communion [] Anointing/[place] [] Salvation [x] Completed spiritual assessment [] Other: Impact on Illness or Injury [] Angry [] Fearful [] Anxious [] Often cries [] Exhaustion [] Unable to work [] Unable to attend gnosticism [] Unable to walk/stand [] Unable to read [] Unable to drive [] Unable to eat/drink [] Unable to sleep [] Unable to be with family [] Patient intubated [] Other: Summary Time spent with patient
[2022-11-28] MEDS: heparin 5,000 unit/mL INJ 1 mL 5000 UNIT SUBCUT ×3 (10:37→22:56)
[2022-11-28] MEDS: lanolin oint 7 gm 1 APPLIC TOPICAL (10:45)
[2022-11-28] MEDS: acetylcysteine 200 mg/mL SDV 4 mL INHALATION ×2 (11:32→15:58)
[2022-11-28 12:06] LABS: Total Cells Counted Bronch 200
[2022-11-28 12:29] LABS: Glucose Point of Care 259 mg/dL (70-110)
--- NOTE | 2022-11-28 12:44 | ANE.PACU2 ---
Inpatient post-anesthesia follow up: Airway intact: Yes Vital signs: Temperature 98.0 F Pulse Rate [Therap y Changed] 120 Pulse Rate 115 Respiratory Rate [ Therapy 30 Changed] Respiratory Rate 18 Blood Pressure 100/73 Pulse Oximetry [Th erapy 93 Changed] Pulse Oximetry 98 Oxygen Delivery Me thod [ Heated High Flow Current Rate & Del nitin] Oxygen Delivery Me thod Heated High Flow Oxygen Flow Rate [ Therapy 40 Changed] Oxygen Flow Rate [ Current Rate 50 & Delivery] Oxygen Flow Rate 40 Fraction of Inspir ed Oxygen [ 85 Therapy Changed] Fraction of Inspir ed Oxygen 85 Hydration adequate: Yes Nausea and vomiting: No Pain level: 2 Mental status: Baseline
[2022-11-28] MEDS: insulin lispro 100 unit/1 mL SUBCUT ×3 (13:08→22:57)
[2022-11-28] MEDS: acetaminophen 325 mg Tablet 650 MG PO (14:38)
[2022-11-28] MEDS: gabapentin 400 mg Capsule 1200 MG PO ×2 (14:39→20:52)
--- NOTE | 2022-11-28 15:55 | PM.PN ---
Subjective Subjective: Patient was seen and examined this morning, successfully underwent bedside bronchoscopy, with clearing of mucous plugging and subsequent improvement in x-ray chest.Currently on heated high flow. Medications: Medication Review Details: Generic Name Dose Route Start Last Admin Trade Name Freq PRN Reason Stop Dose Admin Acetaminophen 650 mg 11/27/22 03:05 11/28/22 14:38 Acetaminophen 32 5 Mg Tablet PO 650 mg Q6H PRN Administration MILD PAIN Acetylcysteine 200 mg 11/28/22 12:00 11/28/22 11:32 Acetylcysteine 2 00 Mg/Ml Sdv 4 Ml INHALATION 200 mg QID.RESPIRATORY S CH Administration Fentanyl 1 patch 11/27/22 09:00 11/27/22 09:20 Fentanyl 50 Mcg Patch TRANSDERMA 1 patch Q72H ELISEO Administration Gabapentin 1,200 mg 11/27/22 09:00 11/28/22 14:39 Gabapentin 400 M g Capsule PO 1,200 mg TID ELISEO Administration Guaifenesin 1,200 mg 11/27/22 18:00 11/27/22 17:50 Guaifenesin 600 Mg Tablet PO 1,200 mg BID ELISEO Administration Heparin Sodium (Po rcine) 5,000 unit 11/28/22 07:15 11/28/22 14:36 Heparin 5,000 Un it/Ml Inj 1 Ml SUBCUT 5,000 unit Q8H ELISEO Administration Hydromorphone HCl 0.4 mg 11/28/22 07:05 11/28/22 10:37 Hydromorphone 1 Mg/Ml Inj 1 Ml IVP 0.4 mg Q6H PRN Administration MODERATE TO SEVER E PAIN Norepinephrine Bit artrate 4 mg 254 mls @ 0 mls/h r 11/22/22 22:15 11/25/22 22:17 / Dextrose IV Infused .Q0M ELISEO Titration Protocol Per Protocol Meropenem 1,000 mg / Sodium 50 mls @ 100 mls/ hr 11/22/22 22:30 11/28/22 14:35 Chloride IV 100 mls/hr Q8H ELISEO Administration Fluconazole 200 mg in 100 mls @ 100 mls/hr 11/23/22 17:00 11/27/22 19:22 Diflucan Premix IV 11/30/22 16:59 Infused Q24H ELISEO Infusion Vancomycin HCl 1,0 00 mg/ 250 mls @ 250 mls /hr 11/26/22 05:00 11/28/22 07:20 Sodium Chloride IV Infused Q24H ELISEO Infusion Protocol As Directed Sodium Chloride 1,000 mls @ 30 ml s/hr 11/28/22 08:15 11/28/22 08:56 Sodium Chloride 0.9% IV Infused .Q24H ELISEO Infusion Insulin Human Lisp ro 0 unit 11/23/22 11:15 11/28/22 13:08 Insulin Lispro 1 00 Unit/1 Ml SUBCUT 8 unit Q6H ELISEO Administration Protocol Ipratropium Bromid e 0.5 mg 11/27/22 16:00 11/28/22 11:32 Ipratropium 0.5 Mg/2.5 Ml Neb INHALATION 0.5 mg QID.RESPIRATORY S CH Administration Lanolin 1 applic 11/23/22 10:08 11/28/22 10:45 Lanolin Oint 7 G m TOPICAL 1 applic PRN PRN Administration DRYNESS Levalbuterol HCl 1.25 mg 11/27/22 16:00 11/28/22 11:32 Levalbuterol 1.2 5 Mg/3 Ml Neb INHALATION 1.25 mg QID.RESPIRATORY S CH Administration Ondansetron HCl 4 mg 11/22/22 21:52 11/27/22 21:18 Ondansetron 2 Mg /Ml Sdv 2 Ml IVP 4 mg Q6H PRN Administration vomiting, or N/V if npo Pantoprazole Sodiu m 40 mg 11/22/22 22:00 11/27/22 21:17 Pantoprazole 40 Mg Sdv IVP 40 mg Q24H ELISEO Administration Pregabalin 50 mg 11/23/22 18:00 11/27/22 17:50 Pregabalin 50 Mg Capsule PO 50 mg BID ELISEO Administration Sodium Chloride 4 ml 11/27/22 16:00 11/28/22 11:32 Sodium Chloride 3.5% Neb 4 Ml Neb INHALATION 4 ml QID.RESPIRATORY S CH Administration Vitals/I&O/Wt Last Vital Signs Temp 98.0 F 11/27/22 20:00 Pulse 115 H 11/28/22 12:30 Resp 18 11/28/22 12:30 BP 100/73 11/28/22 12:30 Pulse Ox 98 11/28/22 12:30 O2 Del Method 11/28/22 12:30 O2 Flow Rate 40 11/28/22 11:46 FiO2 85 11/28/22 11:46 11/28/22 11/28/22 11/28/22 06:59 14:59 22:59 Intake Total 100 / 2128.75 550 / 550 Output Total 920 / 3372 Balance -820 / -1243.25 550 / 550 Weight last 48 hrs Weight 76.204 kg Physical Exam Narrative: Alert awake oriented*3, not in acute distress Const: COMMON NORMALS: patient oriented x3 HENMT: COMMON NORMALS: normocephalic and atraumatic HEAD & SCALP: normocephalic and atraumatic Resp: COMMON NORMALS: clear to auscultation bilaterally AUSCULTATION: clear to auscultation bilaterally OTHER: Tachypneic, tachycardic diminished air entry, right lung gordon. Cardio: COMMON NORMALS: regular rate, regular rhythm, S1 normal heart sound present, S2 normal heart sound present, No gallops present (Cardio), No murmurs present (Cardio), No rub (Cardio) and Peripheral pulses 2+ throughout RATE: regular rate RHYTHM: regular rhythm HEART SOUNDS: S1 normal heart sound present and S2 normal heart sound present PERIPHERAL PULSES: Peripheral pulses 2+ throughout GI: COMMON NORMALS: Normal to inspection, nondistended, normoactive bowel sounds present, Soft to palpation, non-tender, No hepatosplenomegaly present and no masses AUSCULTATION: Yes normoactive bowel sounds PALPATION: Yes Soft to palpation and Yes No hepatosplenomegaly present RECTAL EXAM: deferred OTHER: Incision site intact and clean, ostomy patent. Extremity: COMMON NORMALS: no clubbing, cyanosis or edema and no pedal edema Neuro: COMMON NORMALS: patient oriented x3 Urinary Catheter Management: Suprapubic: Cath Placed During This Visit: no Data 11/28/22 02:47 11/28/22 02:47 Micro: Microbiology 11/23/22 06:29 Blood Culture - Final Blood NO GROWTH AFTER 5 DAYS 11/23/22 06:39 Blood Culture - Final Blood NO GROWTH AFTER 5 DAYS A&P Assessment and plan (1) Septic shock: CT abdomen and pelvis findings appreciated Blood culture: NTD Urine culture: No growth Lactic acid:2.5 Prior history of ESBL Proteus.M Currently she is on broad-spectrum antibiotics (namely vancomycin, meropenem) Also covered with antifungal fluconazole. Was on Levophed Maintain MAP greater than 65 Decubitus ulcer management as per recent wound care follow-up plan. (2) Bowel obstruction: s/p ex lap, right hemicolectomy, colostomy revision for large and small bowel obstruction, right colon ischemia post operative, colostomy and wound care management per surgery (3) Sepsis: (4) Respiratory failure: Acute hypoxic respiratory failure with complete left lung collapse secondary to mucous plugging / pneumonia: CTA chest done on 11/27: Complete left lung atelectasis due to mucous plugging, small bilateral pleural effusion. S/p bronchoscopy: With clearing of mucous plugging. Post bronc chest x-ray has shown improvement in the left lung field aeration. Currently she is on Mucomyst, hypertonic saline inhalation, nebs, chest vest. Patient was initially intubated and was on mechanical ventilation She has been extubated but currently is requiring heated high flow Monitor x-ray chest. Currently she is appropriately covered with broad-spectrum antibiotics. Patient has also received Lasix intermittently, and had made good urine. (5) Ischemic colon: (6) Metabolic acidosis: Likely secondary to septic shock: Monitor ABG, for now we will start on p.o. sodium bicarb IV fluid has been changed to LR. Low threshold for starting bicarb drip if needed depending upon the acceptable pH goal. As severe metabolic acidosis will interfere with vasopressors effectiveness. (7) Anemia: Possibly postop blood loss S/p 1 unit PRBC transfusion: Currently H&H is stable Monitor H&H Transfuse to maintain hemoglobin greater than 7 (8) Hypomagnesemia: Monitor and replace serum magnesium (9) Hyperphosphatemia: Monitor serum phosphorus (10) Hypoalbuminemia: Will give her 1 dose of albumin (11) Hypocalcemia: Has received IV calcium. Monitor serum calcium for now (12) Pneumonia: X-ray chest is suggestive of: Bilateral patchy lower lung opacities. Sputum culture: Monitor x-ray chest Currently she is requiring supplemental oxygen through heated high flow Continue broad-spectrum antibiotics as above Plan B/L Hydroureteronephrosis.: Mild right greater than left hydroureteronephrosis. Urology has seen the patient in the past, and at that time they decided not for any intervention. Attestations Medical Necessity Statement*: Needs to be in hospital for management of respiratory failure. Critical Care Time: The high probability of a clinically significant, sudden or life threatening deterioration of the patient's [] system(s) required my full and direct attention, intervention and personal management. The critical care time is as shown. This time is in addition to time spent performing any reported procedures but includes the following: [x] Data and vital sign review and interpretation [x] Patient assessment, examination and intervention [x] Documentation [x] Medication orders and management Critical Care Time (min): 45 Coding Level of Care Code Acute Code for g Fwd Diagnoses Septic shock A41.9; R65.21 Bowel obstruction K56.609 Sepsis A41.9 Respiratory failure J96.90 Ischemic colon K55.9 Metabolic acidosis E87.20 Anemia D64.9 Hypomagnesemia E83.42 Hyperphosphatemia E83.39 Hypoalbuminemia E88.09 Hypocalcemia E83.51 Pneumonia J18.9
[2022-11-28] MEDS: fluconazole premix 200 MG/100 ML PREMIX 100 MG IV (16:59)
[2022-11-28] MEDS: phosphorus 250 mg Tablet PO (18:01)
[2022-11-28] MEDS: guaiFENesin 600 mg Tablet 1200 MG PO (18:01)
[2022-11-28] MEDS: pregabalin 50 mg Capsule PO (18:01)
--- NOTE | 2022-11-28 20:29 | PC.NURSE ---
Shift Note: Pt rested in bed She had a broncoscopy this am. She states she feels much better. Pt smiling and singing while chest vest on today. Her color is no longer flushed. Her O2 needs reduced to high flow at 10 liters today. She remains in sinus rhythm. Her Pain is much better controlled, per her, today. her appetite has increased. She has ate more of her meals today and drank all of her Ensures. CARLY drains had serious drainage: left 85 ml right 12 ml. Her colostomy put out 200ml of stool, much less flatulence noted today, appliance 'burped' once. Urine output of 1400ml this shift. Frequent safety and comfort rounds continue. Orders and/or nursing care completed as indicated. Patient monitored for response to intervention and treatment(s). Education provided includes Bronc, mucinex, plan of care and progress. Patient and/or pharmaceutical service representative verbalized understanding of plan care , progress and all that was discussed. Will continue to monitor.
[2022-11-28] MEDS: pantoprazole 40 mg SDV IVP (20:52)
[2022-11-28 22:36] LABS: Glucose Point of Care 192 mg/dL (70-110)
[2022-11-28 22:55] LABS: Glucose Point of Care 198 mg/dL (70-110)
[2022-11-29] VITALS (59 sets, daily range): BP systolic 88–142; BP diastolic 51–86; PULSE 69–111; RESP 13–28; TEMP 36.4–36.7; O2SAT 94–100
[2022-11-29 04:25] LABS: Basophils % 0.1 %; Hematocrit 29.6 % (37.0-47.0); Hemoglobin 9.4 g/dL (11.5-15.3); Lymphocytes # 0.6 10^3/uL (0.8-4.8); Lymphocytes % 9.3 %; Mean Corpuscular HGB Conc 31.8 g/dL (30.0-36.0); Mean Corpuscular Hemoglobin 28.7 pg (28.0-34.0); Mean Corpuscular Volume 90.2 fl (81-99); Mean Platelet Volume 10.6 fL (7.4-10.4); Monocytes # 0.8 10^3/uL (0.2-0.9); Monocytes % 10.9 %; Neutrophils # 5.34 10^3/uL (1.8-7.7); Nucleated Red Blood Cells % 0 %; Platelet Count 376 10^3/cmm (130-400); Red Blood Count 3.28 10^6/uL (4.1-5.3); Red Cell Distribution Width 17.3 % (12.1-15.1); White Blood Count 6.9 10^3/uL (4.0-10.0)
[2022-11-29 04:47] LABS: Alanine Aminotransferase 29 U/L (0-33); Albumin Level 2.9 g/dL (3.5-5.2); Alkaline Phosphatase 64 U/L (35-105); Anion Gap 13.5 (5-19); Aspartate Amino Transferase 35 U/L (0-32); Blood Urea Nitrogen 7 mg/dL (6-20); Calcium 8.3 mg/dL (8.5-10.5); Carbon Dioxide 28 mmol/L (22-29); Chloride 103 mmol/L (98-107); Globulin 2.8 g/dL (1.3-4.6); Glomerular Filtration Rate 171.1 mL/min (90-130); Glucose 145 mg/dL (65-115); Magnesium 1.9 mg/dL (1.7-2.3); Osmolality Calculated 291 mOsm/kg (285-295); Phosphorus 2.9 mg/dL (2.5-4.5); Potassium 4.5 mmol/L (3.5-5.1); Sodium 140 mmol/L (136-145); Total Bilirubin 0.2 mg/dL (0.15-1.2); Total Protein 5.7 g/dL (6.6-8.7)
[2022-11-29 04:52] LABS: Vancomycin Trough 11.1 ug/mL (10-15)
[2022-11-29] MEDS: insulin lispro 100 unit/1 mL SUBCUT ×3 (05:22→17:06)
[2022-11-29] MEDS: vancomycin 1,000 MG in sodium chloride 0.9% 250 ML 250 MG IV (05:23)
[2022-11-29] MEDS: meropenem 1,000 MG in sodium chloride 0.9% (plus) 50 ML 100 MG IV ×3 (05:57→21:30)
--- NOTE | 2022-11-29 07:00 | XRR_ITS ---
PROCEDURE INFORMATION: Exam: XR Chest Exam date and time: 11/29/2022 7:06 AM Age: 47 years old Clinical indication: Shortness of breath; Prior surgery; Additional info: SOB TECHNIQUE: Imaging protocol: Radiologic exam of the chest. Views: 1 view. COMPARISON: CR XR chest 1V portable [id number] 11/28/2022 8:53 AM FINDINGS: Tubes, catheters and devices: There is a right central line extending into the right atrium Lungs: Low lung volumes seen. There is a parenchymal density inferior to the minor fissure near the lateral chest wall. This finding was present on prior examination and now has decreased in volume. Pleural spaces: Unremarkable. No pleural effusion. No pneumothorax. Heart/Mediastinum: Unremarkable. No cardiomegaly. Bones/joints: Unremarkable. XR/XR chest 1V portable [id number] IMPRESSION: 1. No acute findings. 2. Parenchymal density right lung decreased volume since prior 3. Right central line is in the right atrium
[2022-11-29] MEDS: heparin 5,000 unit/mL INJ 1 mL 5000 UNIT SUBCUT ×3 (08:17→22:23)
[2022-11-29] MEDS: phosphorus 250 mg Tablet PO ×2 (08:18→17:06)
[2022-11-29] MEDS: pregabalin 50 mg Capsule PO ×2 (08:18→17:06)
[2022-11-29] MEDS: gabapentin 400 mg Capsule 1200 MG PO ×3 (08:18→21:30)
[2022-11-29] MEDS: guaiFENesin 600 mg Tablet 1200 MG PO ×2 (08:18→17:06)
[2022-11-29] MEDS: sodium chloride 0.9% 1,000 ML 30 ML IV (08:19)
[2022-11-29] MEDS: HYDROmorphone 1 mg/mL INJ 1 mL 0.4 MG IVP ×3 (08:20→19:28)
[2022-11-29] MEDS: levalbuterol 1.25 mg/3 mL Neb INHALATION ×4 (09:31→19:31)
[2022-11-29] MEDS: ipratropium 0.5 mg/2.5 mL Neb INHALATION ×4 (09:31→19:31)
[2022-11-29] MEDS: acetylcysteine 200 mg/mL SDV 4 mL INHALATION ×3 (09:32→16:10)
[2022-11-29] MEDS: sodium chloride 3.5% neb 4 mL Neb INHALATION ×4 (09:37→19:32)
--- NOTE | 2022-11-29 10:21 | ECG_ITS ---
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 Measurements Intervals [place] Rate: 96 P: 27 IA: 122 QRS: 14 QRSD: 93 T: 37 QT: 376 QTc: 475 Interpretive Statements SINUS RHYTHM Compared to ECG 11/26/2022 16:11:14 Prolonged QT interval no longer present Electronically Signed On 11-29-2022 18:25:26 [employer] by Kasandra Tanner M.D. [id number]
--- NOTE | 2022-11-29 10:34 | PC.NURSE ---
Patient called this nurse into room and reported a right shoulder pain, jaw pain, and a headache. Patient states she feels weird with this pain. This nurse notified Dr. Kunz and obtained an EKG. Patient noted to be hemodynamically stable at this time, see documented vitals. EKG REPORT as shown below: Measurements Intervals [place] Rate: 96 P: 27 CT: 122 QRS: 14 QRSD: 93 T: 37 QT: 376 QTc: 475 Interpretive Statements SINUS RHYTHM
--- NOTE | 2022-11-29 10:43 | PC.SOCIAL ---
Imm update Imm updated with patient at bedside. Copy of page 2 provided. Patient verbalized understanding. Copy in chart initialed, dated and timed.
--- NOTE | 2022-11-29 10:50 | PM.PN ---
Subjective Subjective: Hemodynamically stable overnight Patient reports that she slept well Medications: Reviewed: Yes Vitals/I&O/Wt Last Vital Signs Temp 97.5 F L 11/29/22 08:00 Pulse 88 11/29/22 09:38 Resp 16 11/29/22 09:38 BP 122/79 11/29/22 08:30 Pulse Ox 96 11/29/22 09:38 O2 Del Method 11/29/22 09:38 O2 Flow Rate 6 11/29/22 09:38 FiO2 40 11/28/22 16:15 11/28/22 11/29/22 11/29/22 22:59 06:59 14:59 Intake Total 600 / 1390 350 / 1740 360 / 360 Output Total 1897 / 1897 1190 / 3087 Balance -1297 / -507 -840 / -1347 360 / 360 Physical Exam Narrative: Generally: No acute distress Lungs: Really clear to auscultation. I do not appreciate any dullness to percussion Heart: Regular rate and rhythm without murmurs Abdomen: Soft, nondistended. The patient's ostomy is functioning. The patient's ostomy is viable. The patient has normal active bowel sounds. I do not appreciate any rushes or tinkles. Neurologic: Patient is awake, alert, oriented x3. Urinary Catheter Management: Suprapubic: Cath Placed During This Visit: no Data 11/29/22 03:55 11/29/22 03:55 Micro: Microbiology 11/28/22 08:35 Gram Stain - Final Lung Left Lower Lobe 11/23/22 06:29 Blood Culture - Final Blood NO GROWTH AFTER 5 DAYS 11/23/22 06:39 Blood Culture - Final Blood NO GROWTH AFTER 5 DAYS A&P Assessment and plan (1) Small bowel obstruction: (2) Constipation: (3) Colostomy in place: Plan Assessment and plan (1) Bowel obstruction: (2) Colostomy in place: (3) Ischemic colon: Plan Postoperative day #7 status post exploratory laparotomy, lysis of adhesions for small bowel obstruction, right hemicolectomy for ischemia and colostomy revision Continue abx as there was some fecal contamination during surgery.? Approximately 7 L of stool was suctioned Pulmonary consult for possible bronchoscopy Regular diet Medical management per hospitalist-appreciate input Attestations Medical Necessity Statement*: continued ICU care Coding Level of Care Code Acute Code for Chg Fwd Medical Decision Making Low Complexity Diagnoses Small bowel obstruction K56.609 Constipation K59.[address] Z93.3
[2022-11-29 11:29] LABS: Glucose Point of Care 141 mg/dL (70-110)
--- NOTE | 2022-11-29 11:31 | P.PN_ITS ---
Subjective Subjective: Patient was seen and examined this morning, supplemental oxygen requirement is coming down, a.m. chest x-ray has shown improvement in bilateral lung field aeration.Robust urine output overnight Medications: Medication Review Details: Generic Name Dose Route Start Last Admin Trade Name Freq PRN Reason Stop Dose Admin Acetaminophen 650 mg 11/27/22 03:05 11/28/22 14:38 Acetaminophen 32 5 Mg Tablet PO 650 mg Q6H PRN Administration MILD PAIN Acetylcysteine 200 mg 11/28/22 12:00 11/28/22 11:32 Acetylcysteine 2 00 Mg/Ml Sdv 4 Ml INHALATION 200 mg QID.RESPIRATORY S CH Administration Fentanyl 1 patch 11/27/22 09:00 11/27/22 09:20 Fentanyl 50 Mcg Patch TRANSDERMA 1 patch Q72H ELISEO Administration Gabapentin 1,200 mg 11/27/22 09:00 11/28/22 14:39 Gabapentin 400 M g Capsule PO 1,200 mg TID ELISEO Administration Guaifenesin 1,200 mg 11/27/22 18:00 11/27/22 17:50 Guaifenesin 600 Mg Tablet PO 1,200 mg BID ELISEO Administration Heparin Sodium (Po rcine) 5,000 unit 11/28/22 07:15 11/28/22 14:36 Heparin 5,000 Un it/Ml Inj 1 Ml SUBCUT 5,000 unit Q8H ELISEO Administration Hydromorphone HCl 0.4 mg 11/28/22 07:05 11/28/22 10:37 Hydromorphone 1 Mg/Ml Inj 1 Ml IVP 0.4 mg Q6H PRN Administration MODERATE TO SEVER E PAIN Norepinephrine Bit artrate 4 mg 254 mls @ 0 mls/h r 11/22/22 22:15 11/25/22 22:17 / Dextrose IV Infused .Q0M ELISEO Titration Protocol Per Protocol Meropenem 1,000 mg / Sodium 50 mls @ 100 mls/ hr 11/22/22 22:30 11/28/22 14:35 Chloride IV 100 mls/hr Q8H ELISEO Administration Fluconazole 200 mg in 100 mls @ 100 mls/hr 11/23/22 17:00 11/27/22 19:22 Diflucan Premix IV 11/30/22 16:59 Infused Q24H ELISEO Infusion Vancomycin HCl 1,0 00 mg/ 250 mls @ 250 mls /hr 11/26/22 05:00 11/28/22 07:20 Sodium Chloride IV Infused Q24H ELISEO Infusion Protocol As Directed Sodium Chloride 1,000 mls @ 30 ml s/hr 11/28/22 08:15 11/28/22 08:56 Sodium Chloride 0.9% IV Infused .Q24H ELISEO Infusion Insulin Human Lisp ro 0 unit 11/23/22 11:15 11/28/22 13:08 Insulin Lispro 1 00 Unit/1 Ml SUBCUT 8 unit Q6H ELISEO Administration Protocol Ipratropium Bromid e 0.5 mg 11/27/22 16:00 11/28/22 11:32 Ipratropium 0.5 Mg/2.5 Ml Neb INHALATION 0.5 mg QID.RESPIRATORY S CH Administration Lanolin 1 applic 11/23/22 10:08 11/28/22 10:45 Lanolin Oint 7 G m TOPICAL 1 applic PRN PRN Administration DRYNESS Levalbuterol HCl 1.25 mg 11/27/22 16:00 11/28/22 11:32 Levalbuterol 1.2 5 Mg/3 Ml Neb INHALATION 1.25 mg QID.RESPIRATORY S CH Administration Ondansetron HCl 4 mg 11/22/22 21:52 11/27/22 21:18 Ondansetron 2 Mg /Ml Sdv 2 Ml IVP 4 mg Q6H PRN Administration vomiting, or N/V if npo Pantoprazole Sodiu m 40 mg 11/22/22 22:00 11/27/22 21:17 Pantoprazole 40 Mg Sdv IVP 40 mg Q24H ELISEO Administration Pregabalin 50 mg 11/23/22 18:00 11/27/22 17:50 Pregabalin 50 Mg Capsule PO 50 mg BID ELISEO Administration Sodium Chloride 4 ml 11/27/22 16:00 11/28/22 11:32 Sodium Chloride 3.5% Neb 4 Ml Neb INHALATION 4 ml QID.RESPIRATORY S CH Administration Vitals/I&O/Wt Last Vital Signs Temp 97.5 F L 11/29/22 08:00 Pulse 88 11/29/22 09:38 Resp 16 11/29/22 09:38 BP 122/79 11/29/22 08:30 Pulse Ox 96 11/29/22 09:38 O2 Del Method 11/29/22 09:38 O2 Flow Rate 6 11/29/22 09:38 FiO2 40 11/28/22 16:15 11/28/22 11/29/22 11/29/22 22:59 06:59 14:59 Intake Total 600 / 1390 350 / 1740 360 / 360 Output Total 1897 / 1897 1190 / 3087 Balance -1297 / -507 -840 / -1347 360 / 360 Physical Exam Narrative: Alert awake oriented*3, not in acute distress Const: COMMON NORMALS: patient oriented x3 HENMT: COMMON NORMALS: normocephalic and atraumatic HEAD & SCALP: normocephalic and atraumatic Resp: COMMON NORMALS: clear to auscultation bilaterally AUSCULTATION: clear to auscultation bilaterally OTHER: Tachypneic, tachycardic diminished air entry, right lung gordon. Cardio: COMMON NORMALS: regular rate, regular rhythm, S1 normal heart sound present, S2 normal heart sound present, No gallops present (Cardio), No murmurs present (Cardio), No rub (Cardio) and Peripheral pulses 2+ throughout RATE: regular rate RHYTHM: regular rhythm HEART SOUNDS: S1 normal heart sound present and S2 normal heart sound present PERIPHERAL PULSES: Peripheral pulses 2+ throughout GI: COMMON NORMALS: Normal to inspection, nondistended, normoactive bowel sounds present, Soft to palpation, non-tender, No hepatosplenomegaly present and no masses AUSCULTATION: Yes normoactive bowel sounds PALPATION: Yes Soft to palpation and Yes No hepatosplenomegaly present RECTAL EXAM: deferred OTHER: Incision site intact and clean, ostomy patent. Extremity: COMMON NORMALS: no clubbing, cyanosis or edema and no pedal edema Neuro: COMMON NORMALS: patient oriented x3 Urinary Catheter Management: Suprapubic: Cath Placed During This Visit: no Data 11/29/22 03:55 11/29/22 03:55 Micro: Microbiology 11/28/22 08:35 Gram Stain - Final Lung Left Lower Lobe 11/23/22 06:29 Blood Culture - Final Blood NO GROWTH AFTER 5 DAYS 11/23/22 06:39 Blood Culture - Final Blood NO GROWTH AFTER 5 DAYS A&P Assessment and plan (1) Septic shock: CT abdomen and pelvis findings appreciated Blood culture: NTD Urine culture: No growth Lactic acid:2.5 Prior history of ESBL Proteus.M Currently she is on broad-spectrum antibiotics (namely vancomycin, meropenem) Also covered with antifungal fluconazole. Was on Levophed Maintain MAP greater than 65 Decubitus ulcer management as per recent wound care follow-up plan. (2) Bowel obstruction: s/p ex lap, right hemicolectomy, colostomy revision for large and small bowel obstruction, right colon ischemia post operative, colostomy and wound care management per surgery (3) Sepsis: (4) Respiratory failure: Acute hypoxic respiratory failure with complete left lung collapse secondary to mucous plugging / pneumonia: CTA chest done on 11/27: Complete left lung atelectasis due to mucous plugging, small bilateral pleural effusion. S/p bronchoscopy: With clearing of mucous plugging. Post bronc chest x-ray has shown improvement in the left lung field aeration. Left lower lobe bronchial wash culture and Gram stain: Few yeast, moderate white blood cells, moderate PMNs. Bronchial fluid WBC 288, bronchial fluid RBC 1200, bronchial fluid neutrophil percent 51, bronchial fluid lymphocytes percent 41, bronchial macrophages percent 8. Follow Legionella pneumophila antigen, miscellaneous tests. Currently she is on Mucomyst, hypertonic saline inhalation, nebs, chest vest. Patient was initially intubated and was on mechanical ventilation She has been extubated but currently is requiring heated high flow Monitor x-ray chest. Currently she is appropriately covered with broad-spectrum antibiotics. Patient has also received Lasix intermittently, and had made good urine. (5) Ischemic colon: (6) Metabolic acidosis: Likely secondary to septic shock: Monitor ABG, for now we will start on p.o. sodium bicarb IV fluid has been changed to LR. Low threshold for starting bicarb drip if needed depending upon the acceptable pH goal. As severe metabolic acidosis will interfere with vasopressors effectiveness. (7) Anemia: Possibly postop blood loss S/p 1 unit PRBC transfusion: Currently H&H is stable Monitor H&H Transfuse to maintain hemoglobin greater than 7 (8) Hypomagnesemia: Monitor and replace serum magnesium (9) Hyperphosphatemia: Monitor serum phosphorus (10) Hypoalbuminemia: Will give her 1 dose of albumin (11) Hypocalcemia: Has received IV calcium. Monitor serum calcium for now (12) Pneumonia: X-ray chest is suggestive of: Bilateral patchy lower lung opacities. Sputum culture: Monitor x-ray chest Currently she is requiring supplemental oxygen through heated high flow Continue broad-spectrum antibiotics as above Plan B/L Hydroureteronephrosis.: Mild right greater than left hydroureteronephrosis. Urology has seen the patient in the past, and at that time they decided not for any intervention. Attestations Medical Necessity Statement*: In Hospital for management of sepsis Time Spent in Patient Care: Greater than 35 minutes Critical Care Time: The high probability of a clinically significant, sudden or life threatening deterioration of the patient's [] system(s) required my full and direct attention, intervention and personal management. The critical care time is as shown. This time is in addition to time spent performing any reported procedures but includes the following: [x] Data and vital sign review and interpretation [x] Patient assessment, examination and intervention [x] Documentation [x] Medication orders and management Critical Care Time (min): 30 Coding Level of Care Code Acute Code for [facility] Fwd Diagnoses Septic shock A41.9; R65.21 Bowel obstruction K56.609 Sepsis A41.9 Respiratory failure J96.90 Ischemic colon K55.9 Metabolic acidosis E87.20 Anemia D64.9 Hypomagnesemia E83.42 Hyperphosphatemia E83.39 Hypoalbuminemia E88.09 Hypocalcemia E83.51 Pneumonia J18.9
--- NOTE | 2022-11-29 12:37 | PC.NURSE ---
This nurse observed, cleaned, changed Abd surgical dressing site per protocol. At this time the CARLY drains were drained as well as cleaned and changed the split sponges dressing: Right CARLY drain- 60mL and Left CARLY drain-5mL out noted. The patient was then turn on right side and at this time right buttock pressure injury was changed per protocol, patient tolerated well. Pt noted to be resting comfortably on right side and this nurse educated on the importance of pressure injury prevention interventions, pt verbalized understanding- although reinforced education is needed.
[2022-11-29] MEDS: acetaminophen 325 mg Tablet 650 MG PO (15:26)
[2022-11-29] MEDS: fluconazole premix 200 MG/100 ML PREMIX 100 MG IV (17:06)
[2022-11-30] VITALS (46 sets, daily range): BP systolic 89–158; BP diastolic 54–116; PULSE 76–105; RESP 14–26; TEMP 36.4; O2SAT 94–100
[2022-11-30 04:19] LABS: Magnesium 1.8 mg/dL (1.7-2.3); Phosphorus 3.2 mg/dL (2.5-4.5)
[2022-11-30 04:59] LABS: Glucose Point of Care 143 mg/dL (70-110)
[2022-11-30 04:59] LABS: Glucose Point of Care 109 mg/dL (70-110)
--- NOTE | 2022-11-30 05:00 | XRR_ITS ---
PROCEDURE INFORMATION: Exam: XR Chest Exam date and time: 11/30/2022 5:27 AM Age: 47 years old Clinical indication: Shortness of breath; Additional info: SOB TECHNIQUE: Imaging protocol: Radiologic exam of the chest. Views: 1 view. COMPARISON: CR (CHEST, ) 11/29/2022 7:06 AM FINDINGS: Tubes, catheters and devices: Central venous catheter extends to the distal superior vena cava. Lungs: Low lung volumes with hazy infrahilar airspace opacities bilaterally. Pleural spaces: Unremarkable. No pleural effusion. No pneumothorax. Heart/Mediastinum: Unremarkable. No cardiomegaly. Bones/joints: Unremarkable. XR/XR chest 1V portable [id number] IMPRESSION: No significant changes in the chest.
[2022-11-30] MEDS: meropenem 1,000 MG in sodium chloride 0.9% (plus) 50 ML 100 MG IV ×3 (05:38→21:42)
[2022-11-30] MEDS: vancomycin 1,000 MG in sodium chloride 0.9% 250 ML 250 MG IV (05:38)
[2022-11-30] MEDS: HYDROmorphone 1 mg/mL INJ 1 mL 0.4 MG IVP ×4 (05:38→23:32)
[2022-11-30] MEDS: gabapentin 400 mg Capsule 1200 MG PO ×3 (08:16→21:41)
[2022-11-30] MEDS: pantoprazole DR 40 mg Tablet PO (08:16)
[2022-11-30] MEDS: pregabalin 50 mg Capsule PO ×2 (08:16→18:03)
[2022-11-30] MEDS: guaiFENesin 600 mg Tablet 1200 MG PO ×2 (08:16→18:03)
[2022-11-30] MEDS: heparin 5,000 unit/mL INJ 1 mL 5000 UNIT SUBCUT ×3 (08:17→23:32)
[2022-11-30 08:23] LABS: Basophils % 0.1 %; Eosinophils # 0.1 10^3/uL (0.0-0.8); Eosinophils % 1.8 %; Hematocrit 30.4 % (37.0-47.0); Hemoglobin 9.1 g/dL (11.5-15.3); Lymphocytes # 1.2 10^3/uL (0.8-4.8); Lymphocytes % 17.7 %; Mean Corpuscular HGB Conc 29.9 g/dL (30.0-36.0); Mean Corpuscular Hemoglobin 27.2 pg (28.0-34.0); Mean Platelet Volume 10.4 fL (7.4-10.4); Monocytes # 0.7 10^3/uL (0.2-0.9); Monocytes % 9.6 %; Neutrophils # 4.69 10^3/uL (1.8-7.7); Neutrophils % 69.2 %; Nucleated Red Blood Cells % 0 %; Platelet Count 367 10^3/cmm (130-400); Red Blood Count 3.34 10^6/uL (4.1-5.3); Red Cell Distribution Width 17.2 % (12.1-15.1); White Blood Count 6.8 10^3/uL (4.0-10.0)
[2022-11-30 08:39] LABS: Alanine Aminotransferase 42 U/L (0-33); Albumin Level 2.7 g/dL (3.5-5.2); Alkaline Phosphatase 60 U/L (35-105); Aspartate Amino Transferase 33 U/L (0-32); Blood Urea Nitrogen 11 mg/dL (6-20); Calcium 8.5 mg/dL (8.5-10.5); Carbon Dioxide 30 mmol/L (22-29); Chloride 104 mmol/L (98-107); Globulin 2.6 g/dL (1.3-4.6); Glomerular Filtration Rate 238.5 mL/min (90-130); Glucose 118 mg/dL (65-115); Osmolality Calculated 292 mOsm/kg (285-295); Sodium 141 mmol/L (136-145); Total Bilirubin 0.2 mg/dL (0.15-1.2); Total Protein 5.3 g/dL (6.6-8.7)
[2022-11-30] MEDS: ondansetron 2 mg/ML SDV 2 mL 4 MG IVP (09:38)
[2022-11-30] MEDS: fentaNYL 50 mcg Patch 1 PATCH TRANSDERMA (09:38)
--- NOTE | 2022-11-30 12:22 | PM.PN ---
Subjective Subjective: Patient was seen and examined this morning, currently saturating well on 3 L supplemental oxygen. A.m. x-ray chest reviewed. Medications: Reviewed: Yes Medication Review Details: Generic Name Dose Route Start Last Admin Trade Name Freq PRN Reason Stop Dose Admin Acetaminophen 650 mg 11/27/22 03:05 11/29/22 15:26 Acetaminophen 32 5 Mg Tablet PO 650 mg Q6H PRN Administration MILD PAIN Acetylcysteine 200 mg 11/28/22 12:00 11/30/22 08:58 Acetylcysteine 2 00 Mg/Ml Sdv 4 Ml INHALATION Not Given QID.RESPIRATORY S CH Fentanyl 1 patch 11/27/22 09:00 11/30/22 09:38 Fentanyl 50 Mcg Patch TRANSDERMA 1 patch Q72H ELISEO Administration Gabapentin 1,200 mg 11/27/22 09:00 11/30/22 08:16 Gabapentin 400 M g Capsule PO 1,200 mg TID ELISEO Administration Guaifenesin 1,200 mg 11/27/22 18:00 11/30/22 08:16 Guaifenesin 600 Mg Tablet PO 1,200 mg BID ELISEO Administration Heparin Sodium (Po rcine) 5,000 unit 11/28/22 07:15 11/30/22 08:17 Heparin 5,000 Un it/Ml Inj 1 Ml SUBCUT 5,000 unit Q8H ELISEO Administration Hydromorphone HCl 0.4 mg 11/28/22 07:05 11/30/22 11:50 Hydromorphone 1 Mg/Ml Inj 1 Ml IVP 0.4 mg Q6H PRN Administration MODERATE TO SEVER E PAIN Meropenem 1,000 mg / Sodium 50 mls @ 100 mls/ hr 11/22/22 22:30 11/30/22 06:08 Chloride IV Infused Q8H ELISEO Infusion Fluconazole 200 mg in 100 mls @ 100 mls/hr 11/23/22 17:00 11/29/22 18:06 Diflucan Premix IV 11/30/22 16:59 Infused Q24H ELISEO Infusion Vancomycin HCl 1,0 00 mg/ 250 mls @ 250 mls /hr 11/26/22 05:00 11/30/22 06:38 Sodium Chloride IV Infused Q24H ELISEO Infusion Protocol As Directed Insulin Human Lisp ro 0 unit 11/29/22 18:00 11/30/22 11:47 Insulin Lispro 1 00 Unit/1 Ml SUBCUT Not Given TIDWM [facility] Protocol Ipratropium Bromid e 0.5 mg 11/27/22 16:00 11/30/22 08:59 Ipratropium 0.5 Mg/2.5 Ml Neb INHALATION Not Given QID.RESPIRATORY S CH Lanolin 1 applic 11/23/22 10:08 11/28/22 10:45 Lanolin Oint 7 G m TOPICAL 1 applic PRN PRN Administration DRYNESS Levalbuterol HCl 1.25 mg 11/27/22 16:00 11/30/22 08:59 Levalbuterol 1.2 5 Mg/3 Ml Neb INHALATION Not Given QID.RESPIRATORY S CH Ondansetron HCl 4 mg 11/22/22 21:52 11/30/22 09:38 Ondansetron 2 Mg /Ml Sdv 2 Ml IVP 4 mg Q6H PRN Administration vomiting, or N/V if npo Pantoprazole Sodiu m 40 mg 11/30/22 09:00 11/30/22 08:[address] 40 Mg Tablet PO 40 mg DAILY ELISEO Administration Pregabalin 50 mg 11/23/22 18:00 11/30/22 08:16 Pregabalin 50 Mg Capsule PO 50 mg BID ELISEO Administration Sodium Chloride 4 ml 11/27/22 16:00 11/30/22 09:00 Sodium Chloride 3.5% Neb 4 Ml Neb INHALATION Not Given QID.RESPIRATORY S CH Vitals/I&O/Wt Last Vital Signs Temp 97.6 F 11/30/22 08:00 Pulse 100 11/30/22 10:42 Resp 20 H 11/30/22 11:50 BP 118/73 11/30/22 09:00 Pulse Ox 96 11/30/22 11:50 O2 Del Method 11/30/22 10:42 O2 Flow Rate 2 11/30/22 10:42 FiO2 40 11/28/22 16:15 11/29/22 11/30/22 11/30/22 22:59 06:59 14:59 Intake Total 300 / 900 300 / 1200 1004 / 1004 Output Total 990 / 990 190 / 1180 Balance -690 / -90 110 / 20 1004 / 1004 Physical Exam Narrative: Alert awake oriented*3, not in acute distress Const: COMMON NORMALS: patient oriented x3 HENMT: COMMON NORMALS: normocephalic and atraumatic HEAD & SCALP: normocephalic and atraumatic Resp: COMMON NORMALS: clear to auscultation bilaterally AUSCULTATION: clear to auscultation bilaterally OTHER: Tachypneic, tachycardic diminished air entry, right lung gordon. Cardio: COMMON NORMALS: regular rate, regular rhythm, S1 normal heart sound present, S2 normal heart sound present, No gallops present (Cardio), No murmurs present (Cardio), No rub (Cardio) and Peripheral pulses 2+ throughout RATE: regular rate RHYTHM: regular rhythm HEART SOUNDS: S1 normal heart sound present and S2 normal heart sound present PERIPHERAL PULSES: Peripheral pulses 2+ throughout GI: COMMON NORMALS: Normal to inspection, nondistended, normoactive bowel sounds present, Soft to palpation, non-tender, No hepatosplenomegaly present and no masses AUSCULTATION: Yes normoactive bowel sounds PALPATION: Yes Soft to palpation and Yes No hepatosplenomegaly present RECTAL EXAM: deferred OTHER: Incision site intact and clean, ostomy patent. Extremity: COMMON NORMALS: no clubbing, cyanosis or edema and no pedal edema Neuro: COMMON NORMALS: patient oriented x3 Urinary Catheter Management: Suprapubic: Cath Placed During This Visit: no Data 11/30/22 08:10 11/30/22 08:10 Micro: Microbiology 11/28/22 08:35 Gram Stain - Final Lung Left Lower Lobe Bronchial Washings Culture - Final A&P Assessment and plan (1) Septic shock: CT abdomen and pelvis findings appreciated Blood culture: NTD Urine culture: No growth Lactic acid:2.5 Prior history of ESBL Proteus.M Currently she is on broad-spectrum antibiotics (namely vancomycin, meropenem) Also covered with antifungal fluconazole. Was on Levophed Maintain MAP greater than 65 Decubitus ulcer management as per recent wound care follow-up plan. (2) Bowel obstruction: s/p ex lap, right hemicolectomy, colostomy revision for large and small bowel obstruction, right colon ischemia post operative, colostomy and wound care management per surgery (3) Sepsis: (4) Respiratory failure: Acute hypoxic respiratory failure with complete left lung collapse secondary to mucous plugging / pneumonia: CTA chest done on 11/27: Complete left lung atelectasis due to mucous plugging, small bilateral pleural effusion. S/p bronchoscopy: With clearing of mucous plugging. Post bronc chest x-ray has shown improvement in the left lung field aeration. Left lower lobe bronchial wash culture and Gram stain: Few yeast, moderate white blood cells, moderate PMNs. Bronchial fluid WBC 288, bronchial fluid RBC 1200, bronchial fluid neutrophil percent 51, bronchial fluid lymphocytes percent 41, bronchial macrophages percent 8. Follow Legionella pneumophila antigen, miscellaneous tests. Currently she is on Mucomyst, hypertonic saline inhalation, nebs, chest vest. Patient was initially intubated and was on mechanical ventilation She has been extubated but currently is requiring heated high flow Monitor x-ray chest. Currently she is appropriately covered with broad-spectrum antibiotics. Patient has also received Lasix intermittently, and had made good urine. (5) Ischemic colon: (6) Metabolic acidosis: Likely secondary to septic shock: Monitor ABG, for now we will start on p.o. sodium bicarb IV fluid has been changed to LR. Low threshold for starting bicarb drip if needed depending upon the acceptable pH goal. As severe metabolic acidosis will interfere with vasopressors effectiveness. (7) Anemia: Possibly postop blood loss S/p 1 unit PRBC transfusion: Currently H&H is stable Monitor H&H Transfuse to maintain hemoglobin greater than 7 (8) Hypomagnesemia: Monitor and replace serum magnesium (9) Hyperphosphatemia: Monitor serum phosphorus (10) Hypoalbuminemia: Will give her 1 dose of albumin (11) Hypocalcemia: Has received IV calcium. Monitor serum calcium for now (12) Pneumonia: X-ray chest is suggestive of: Bilateral patchy lower lung opacities. Sputum culture: Monitor x-ray chest Currently she is requiring supplemental oxygen through heated high flow Continue broad-spectrum antibiotics as above Plan B/L Hydroureteronephrosis.: Mild right greater than left hydroureteronephrosis. Urology has seen the patient in the past, and at that time they decided not for any intervention. Attestations Medical Necessity Statement*: Needs to be in hospital for management of respiratory failure sepsis. Coding Level of Care Code Acute Code for [facility] Diagnoses Septic shock A41.9; R65.21 Bowel obstruction K56.609 Sepsis A41.9 Respiratory failure J96.90 Ischemic colon K55.9 Metabolic acidosis E87.20 Anemia D64.9 Hypomagnesemia E83.42 Hyperphosphatemia E83.39 Hypoalbuminemia E88.09 Hypocalcemia E83.51 Pneumonia J18.9
[2022-11-30] MEDS: levalbuterol 1.25 mg/3 mL Neb INHALATION ×3 (12:42→19:51)
[2022-11-30] MEDS: acetylcysteine 200 mg/mL SDV 4 mL INHALATION (12:42)
[2022-11-30] MEDS: ipratropium 0.5 mg/2.5 mL Neb INHALATION ×3 (12:42→19:51)
[2022-11-30] MEDS: sodium chloride 3.5% neb 4 mL Neb INHALATION ×3 (12:42→19:51)
--- NOTE | 2022-11-30 13:01 | P.PN_ITS ---
Subjective Subjective: Hemodynamically stable overnight No complaints. Patient states that she has some intermittent abdominal pain. This is controlled with her current medication. She had no nausea or vomiting. Medications: Reviewed: Yes Vitals/I&O/Wt Last Vital Signs Temp 97.6 F 11/30/22 08:00 Pulse 100 11/30/22 10:42 Resp 20 H 11/30/22 11:50 BP 118/73 11/30/22 09:00 Pulse Ox 96 11/30/22 11:50 O2 Del Method 11/30/22 10:42 O2 Flow Rate 2 11/30/22 10:42 FiO2 40 11/28/22 16:15 11/29/22 11/30/22 11/30/22 22:59 06:59 14:59 Intake Total 300 / 900 300 / 1200 1004 / 1004 Output Total 990 / 990 190 / 1180 Balance -690 / -90 110 / 20 1004 / 1004 Physical Exam Narrative: Generally: No acute distress Lungs: Clear to auscultation. There are no wheezes or rales and I can appreciate Heart: Is regular rate and rhythm without murmurs. Patient slightly tachycardic. Abdomen: Soft, nondistended, nontender. Patient has normal active bowel sounds. Wounds are healing well. Neurologic: The patient is awake, alert, oriented x3. The patient sensations intact to light touch throughout. Urinary Catheter Management: Suprapubic: Cath Placed During This Visit: no Data 11/30/22 08:10 11/30/22 08:10 Micro: Microbiology 11/28/22 08:35 Gram Stain - Final Lung Left Lower Lobe Bronchial Washings Culture - Final Attestation for Other Data: I personally reviewed and interpreted the following: (All labs have been reviewed) A&P Assessment and plan (1) Bowel obstruction: This patient continues to slowly improve. We will continue current therapy. Attestations Medical Necessity Statement*: Continued hospital care Coding Level of Care Code Acute Code for [facility] Diagnoses Bowel obstruction K56.609
[2022-11-30 18:01] LABS: Glucose Point of Care 110 mg/dL (70-110)
[2022-11-30 21:47] LABS: Glucose Point of Care 101 mg/dL (70-110)
[2022-12-01] VITALS (34 sets, daily range): BP systolic 88–130; BP diastolic 57–91; PULSE 92–117; RESP 15–26; TEMP 37.9–38.6; O2SAT 91–96
[2022-12-01 03:05] LABS: Basophils % 0.3 %; Eosinophils # 0.1 10^3/uL (0.0-0.8); Eosinophils % 1.5 %; Hematocrit 31.5 % (37.0-47.0); Hemoglobin 9.7 g/dL (11.5-15.3); Lymphocytes # 1.7 10^3/uL (0.8-4.8); Mean Corpuscular HGB Conc 30.8 g/dL (30.0-36.0); Mean Corpuscular Hemoglobin 27.8 pg (28.0-34.0); Mean Corpuscular Volume 90.3 fl (81-99); Mean Platelet Volume 10.6 fL (7.4-10.4); Monocytes # 0.8 10^3/uL (0.2-0.9); Monocytes % 12.2 %; Neutrophils # 3.95 10^3/uL (1.8-7.7); Neutrophils % 59.5 %; Nucleated Red Blood Cells % 0 %; Platelet Count 405 10^3/cmm (130-400); Red Blood Count 3.49 10^6/uL (4.1-5.3); White Blood Count 6.6 10^3/uL (4.0-10.0)
[2022-12-01 03:25] LABS: Alanine Aminotransferase 32 U/L (0-33); Albumin Level 2.9 g/dL (3.5-5.2); Alkaline Phosphatase 63 U/L (35-105); Anion Gap 10.8 (5-19); Aspartate Amino Transferase 21 U/L (0-32); Blood Urea Nitrogen 10 mg/dL (6-20); Calcium 8.3 mg/dL (8.5-10.5); Carbon Dioxide 29 mmol/L (22-29); Chloride 98 mmol/L (98-107); Globulin 2.9 g/dL (1.3-4.6); Glomerular Filtration Rate 238.5 mL/min (90-130); Glucose 105 mg/dL (65-115); Osmolality Calculated 277 mOsm/kg (285-295); Potassium 3.8 mmol/L (3.5-5.1); Sodium 134 mmol/L (136-145); Total Bilirubin 0.2 mg/dL (0.15-1.2); Total Protein 5.8 g/dL (6.6-8.7)
[2022-12-01] MEDS: vancomycin 1,000 MG in sodium chloride 0.9% 250 ML 250 MG IV (05:06)
[2022-12-01] MEDS: meropenem 1,000 MG in sodium chloride 0.9% (plus) 50 ML 100 MG IV ×3 (05:35→22:46)
[2022-12-01] MEDS: HYDROmorphone 1 mg/mL INJ 1 mL 0.4 MG IVP (05:35)
[2022-12-01 07:10] LABS: Glucose Point of Care 107 mg/dL (70-110)
[2022-12-01 07:14] LABS: Glucose Point of Care 108 mg/dL (70-110)
[2022-12-01 07:14] LABS: Glucose Point of Care 115 mg/dL (70-110)
[2022-12-01] MEDS: levalbuterol 1.25 mg/3 mL Neb INHALATION (08:24)
[2022-12-01] MEDS: sodium chloride 3.5% neb 4 mL Neb INHALATION ×2 (08:24→20:29)
[2022-12-01] MEDS: ipratropium 0.5 mg/2.5 mL Neb INHALATION ×3 (08:24→20:29)
[2022-12-01] MEDS: gabapentin 400 mg Capsule 1200 MG PO ×3 (08:54→20:26)
[2022-12-01] MEDS: pantoprazole DR 40 mg Tablet PO (08:54)
[2022-12-01] MEDS: guaiFENesin 600 mg Tablet 1200 MG PO ×2 (08:54→17:40)
[2022-12-01] MEDS: heparin 5,000 unit/mL INJ 1 mL 5000 UNIT SUBCUT ×3 (08:54→22:46)
[2022-12-01] MEDS: pregabalin 50 mg Capsule PO ×2 (08:54→17:40)
[2022-12-01] MEDS: oxyCODONE-APAP 5-325 mg Tablet 1 TAB PO ×3 (10:43→23:34)
[2022-12-01] MEDS: fluconazole 100 mg Tablet 200 MG PO (10:43)
--- NOTE | 2022-12-01 11:15 | PC.NURSE ---
Dr. Lo at bedside, observing surgical sites. Verbal orders to remove CARLY drains and place new dressing on abd site. This nurse with the assistance of KRIS Ziegler removed CARLY drain as per protocol. The CARLY drains were deflated, sutures removed, CARLY drains removed, gauze/tegaderm in place and minimal drainage noted. Patient complained of slight pain but overall tolerated the removal well. Patient noted to be hemodynamically stable during the removal process.
[2022-12-01 12:00] LABS: Glucose Point of Care 129 mg/dL (70-110)
[2022-12-01] MEDS: levalbuterol 0.63 mg/3 mL Neb INHALATION ×2 (14:34→20:29)
[2022-12-01] MEDS: oxybutynin 5 mg Tablet PO ×2 (15:41→20:26)
[2022-12-01] MEDS: cyclobenzaprine 10 mg Tablet 5 MG PO ×2 (16:46→23:36)
--- NOTE | 2022-12-01 16:58 | P.PN_ITS ---
Subjective Subjective: Hospital course, labs appreciated. Examination patient lying comfortably in bed, awake and alert, able to complete conversation, comfortable. Denies of having any nausea, vomiting. Complaining of mild pain on the right side near the suture line. Currently on room air saturating more than 92%. Has remained hemodynamically stable and afebrile. Documented urine output within the last 24 hours around 3 L. Vitals/I&O/Wt Last Vital Signs Temp 97.6 F 11/30/22 08:00 Pulse 102 H 12/01/22 16:00 Resp 17 12/01/22 16:44 BP 93/69 12/01/22 15:00 Pulse Ox 94 12/01/22 16:44 O2 Del Method 12/01/22 14:35 O2 Flow Rate 2 11/30/22 19:51 FiO2 40 11/28/22 16:15 12/01/22 12/01/22 12/01/22 06:59 14:59 22:59 Intake Total 360 / 1824 60 / 60 50 / 110 Output Total 1613 / 3428 Balance -1253 / -1604 60 / 60 50 / 110 Physical Exam Narrative: General: No acute distress, awake and alert x3. HEENT: PERRLA, pupils bilaterally equal and reactive Chest: Normal vesicular breath sounds anteriorly, no added sounds, equal good air entry bilaterally CVS: S1-S2 regular, no murmurs, no tachycardia, no gallops, no rubs Abdomen: post operative, anterior abdomen surgical dressing in place, not opened for exam by me, multiple abdominal drains present, colostomy present Neuro: Moving all limbs, AOx3 Urinary Catheter Management: Suprapubic: Cath Placed During This Visit: no Data 12/01/22 02:30 12/01/22 02:30 Micro: Microbiology 11/28/22 08:35 Fungal Smear - Preliminary Pleural Fluid A&P Assessment and plan (1) Septic shock: Resolved. CT abdomen and pelvis findings appreciated Blood culture: NTD Urine culture: No growth Prior history of ESBL Proteus.M Currently currently on vancomycin and meropenem. Stop vancomycin. Complete meropenem 10-day course last dose on 12/02. Also covered with antifungal fluconazole to finish a 7-day course. Maintain MAP greater than 65 Decubitus ulcer management as per recent wound care follow-up plan. (2) Bowel obstruction: s/p ex lap, right hemicolectomy, colostomy revision for large and small bowel obstruction, right colon ischemia Diet, postoperative care, colostomy and wound care management per primary team. (3) Sepsis: (4) Respiratory failure: Acute hypoxic respiratory failure with complete left lung collapse secondary to mucous plugging / pneumonia: CTA chest done on 11/27: Complete left lung atelectasis due to mucous plugging, small bilateral pleural effusion. S/p bronchoscopy: With clearing of mucous plugging. Post bronc chest x-ray has shown improvement in the left lung field aeration. Follow-up [facility] cultures. Continue on hypertonic saline, Mucomyst. Patient is not a good candidate for chest vest given abdominal surgery. Incentive spirometry and flutter valve as possible. Oxygen supplementation keeping saturation over 90%. Ipratropium, Xopenex every 6 hours, (5) Ischemic colon: (6) Metabolic acidosis: Resolved. (7) Anemia: Possibly postop blood loss S/p 1 unit PRBC transfusion: Currently stable around 9.5 Monitor H&H Transfuse to maintain hemoglobin greater than 7 (8) Hypomagnesemia: Monitor and replace serum magnesium (9) Hyperphosphatemia: Monitor serum phosphorus (10) Hypoalbuminemia: Will give her 1 dose of albumin (11) Hypocalcemia: Has received IV calcium. Monitor serum calcium for now (12) Pneumonia: As above. Plan B/L Hydroureteronephrosis.: Mild right greater than left hydroureteronephrosis. Urology has seen the patient in the past, and at that time they decided not for any intervention. Analgesia: Restart home dose of oxycodone 5 every 6 hours as needed Glycemic control: Not needed Nutrition: Regular diet as per primary team CODE STATUS: Full code PUD prophylaxis: Protonix DVT prophylaxis: Heparin 5000 every 12 hourly. Discharge planning: Discharge to SNF at [facility] once stable as per primary team. Can be transferred to medical floor if okay with primary team. Care discussed in detail with patient's primary team, RN at bedside. All the questions were answered. This documentation was created by [employer] stock dealer software. Every effort was made to ensure accuracy of stock dealer. Any obvious errors or omissions should be clarified with the author of the document. Attestations Medical Necessity Statement*: Patient requires further hospitalization for postoperative care for ischemic colon requiring right hemicolectomy, colostomy revision, recovering sepsis while safe discharge planning is sought. Coding Level of Care Code 57425 Moderate MDM includes risk/complexity, reviewing previous or external records, reviewing test results, ordering lab/other test(s), independently interpretating test(s) (not separately recorded) and discussion of management or test(s) w/ other healthcare professional and High Time for a total of 60 minutes, includes reviewing past or interval history, examining/interviewing patient, placing orders, counseling patient/family/other support, updating patient/family/other support, discussing plan of care with staff, communicating with other healthcare providers, documenting encounter and coordinating care Diagnoses Septic shock A41.9; R65.21 Bowel obstruction K56.609 Sepsis A41.9 Respiratory failure J96.90 Ischemic colon K55.9 Metabolic acidosis E87.20 Anemia D64.9 Hypomagnesemia E83.42 Hyperphosphatemia E83.39 Hypoalbuminemia E88.09 Hypocalcemia E83.51 Pneumonia J18.9
--- NOTE | 2022-12-01 17:09 | PM.PN ---
Subjective Subjective: Patient reports that her pain is much better. She is off oxygen, tolerating diet Vitals/I&O/Wt Last Vital Signs Temp 97.6 F 11/30/22 08:00 Pulse 102 H 12/01/22 16:00 Resp 17 12/01/22 16:44 BP 93/69 12/01/22 15:00 Pulse Ox 94 12/01/22 16:44 O2 Del Method 12/01/22 14:35 O2 Flow Rate 2 11/30/22 19:51 FiO2 40 11/28/22 16:15 12/01/22 12/01/22 12/01/22 06:59 14:59 22:59 Intake Total 360 / 1824 60 / 50 / 110 Output Total 1613 / 3428 Balance -1253 / -1604 / 50 / 110 Physical Exam Narrative: General: In distress, awake alert and oriented x3 Abdomen: Soft, nondistended, no guarding rebound or masses Incisions intact without erythema or exudate Ostomy pink patent and producing Drain serosanguineous Urinary Catheter Management: Suprapubic: Cath Placed During This Visit: no Data 12/01/22 02:30 12/01/22 02:30 Micro: Microbiology 11/28/22 08:35 Fungal Smear - Preliminary Pleural Fluid A&P Assessment and plan (1) Bowel obstruction: (2) Colostomy in place: (3) Ischemic colon: Plan Status post exploratory laparotomy, lysis of adhesions for small bowel obstruction, right hemicolectomy for ischemia and colostomy revision Plan for discharge tomorrow Regular diet Medical management per hospitalist-appreciate input Attestations Medical Necessity Statement*: Patient requires 1 more night in the hospital following exploratory laparotomy for transportation set up to leave tomorrow Coding Level of Care Code Acute Code for [facility] Diagnoses Bowel obstruction K56.[address] Z93.3 Ischemic colon K55.9
[2022-12-01 17:21] LABS: Glucose Point of Care 127 mg/dL (70-110)
--- NOTE | 2022-12-01 19:59 | XRR_ITS ---
PROCEDURE INFORMATION: Exam: XR Abdomen Exam date and time: 12/01/2022 8:09 PM Age: 47 years old Clinical indication: Abdominal pain; Prior surgery; Surgery type: Appendectomy, colectomy with colostomy bag; Additional info: Pain/distention S/P abd surgery TECHNIQUE: Imaging protocol: Radiologic exam of the abdomen. Views: 2 Views. Upright and supine views. COMPARISON: CT abdomen pelvis w con* [id number] 11/26/2022 1:48 PM FINDINGS: Tubes, catheters and devices: Right subclavian line in place. RUQ suture. Gastrointestinal tract: No small bowel dilation. Mild excess large and small bowel gas. Intraperitoneal space: No evidence of free air. Bones/joints: Cervical fusion. Advanced bilateral hip DJD. Soft tissues: Upper abdominal clips. Abdominal vertical skin lasha. XR/XR acute abdomen series [id number] IMPRESSION: 1. Postop and chronic findings, no bowel obstruction noted. 2. Perhaps mild postop ileus.
[2022-12-01] MEDS: acetaminophen 325 mg Tablet 650 MG PO (20:25)
[2022-12-01] MEDS: ondansetron 2 mg/ML SDV 2 mL 4 MG IVP (20:26)
[2022-12-01] MEDS: atorvastatin 40 mg Tablet 20 MG PO (20:26)
[2022-12-01] MEDS: lactulose oral liq 20 gm/30 mL UDC 30 GM PO (20:33)
[2022-12-01 20:53] LABS: Glucose Point of Care 108 mg/dL (70-110)
[2022-12-02] VITALS (31 sets, daily range): BP systolic 89–120; BP diastolic 58–97; PULSE 82–115; RESP 14–25; TEMP 37.4–38.2; O2SAT 89–98
[2022-12-02] MEDS: ipratropium 0.5 mg/2.5 mL Neb INHALATION ×4 (02:14→20:13)
[2022-12-02] MEDS: levalbuterol 0.63 mg/3 mL Neb INHALATION ×4 (02:14→20:13)
[2022-12-02] MEDS: ondansetron 2 mg/ML SDV 2 mL 4 MG IVP (02:35)
[2022-12-02] MEDS: alteplase 1 mg/mL SDV 2 mL 2 MG INTRACATH ×3 (04:10→04:11)
[2022-12-02] MEDS: meropenem 1,000 MG in sodium chloride 0.9% (plus) 50 ML 100 MG IV ×3 (05:48→22:18)
[2022-12-02 06:11] LABS: Basophils % 0.3 %; Eosinophils % 0.4 %; Hematocrit 31.5 % (37.0-47.0); Hemoglobin 9.8 g/dL (11.5-15.3); Lymphocytes # 1.5 10^3/uL (0.8-4.8); Mean Corpuscular HGB Conc 31.1 g/dL (30.0-36.0); Mean Corpuscular Hemoglobin 27.8 pg (28.0-34.0); Mean Corpuscular Volume 89.5 fl (81-99); Mean Platelet Volume 10.4 fL (7.4-10.4); Monocytes # 0.7 10^3/uL (0.2-0.9); Monocytes % 9.8 %; Neutrophils % 67.4 %; Nucleated Red Blood Cells % 0 %; Platelet Count 381 10^3/cmm (130-400); Red Blood Count 3.52 10^6/uL (4.1-5.3); Red Cell Distribution Width 17.3 % (12.1-15.1); White Blood Count 7.3 10^3/uL (4.0-10.0)
[2022-12-02 06:37] LABS: Alanine Aminotransferase 23 U/L (0-33); Albumin Level 2.9 g/dL (3.5-5.2); Alkaline Phosphatase 63 U/L (35-105); Aspartate Amino Transferase 16 U/L (0-32); Blood Urea Nitrogen 12 mg/dL (6-20); Calcium 8.4 mg/dL (8.5-10.5); Carbon Dioxide 30 mmol/L (22-29); Chloride 99 mmol/L (98-107); Creatinine Clr Calc Pharmacy 115.8331; Globulin 2.9 g/dL (1.3-4.6); Glomerular Filtration Rate 107.2 mL/min (90-130); Glucose 131 mg/dL (65-115); Osmolality Calculated 288 mOsm/kg (285-295); Sodium 138 mmol/L (136-145); Total Bilirubin 0.2 mg/dL (0.15-1.2); Total Protein 5.8 g/dL (6.6-8.7)
[2022-12-02] MEDS: heparin 5,000 unit/mL INJ 1 mL 5000 UNIT SUBCUT ×3 (08:03→22:18)
[2022-12-02 08:08] LABS: Glucose Point of Care 123 mg/dL (70-110)
[2022-12-02] MEDS: sertraline 50 mg Tablet PO (08:26)
[2022-12-02] MEDS: pantoprazole DR 40 mg Tablet PO (08:26)
[2022-12-02] MEDS: oxybutynin 5 mg Tablet PO ×3 (08:26→21:07)
[2022-12-02] MEDS: fluconazole 100 mg Tablet 200 MG PO (08:26)
[2022-12-02] MEDS: gabapentin 400 mg Capsule 1200 MG PO ×3 (08:26→21:08)
[2022-12-02] MEDS: guaiFENesin 600 mg Tablet 1200 MG PO ×2 (08:26→17:05)
[2022-12-02] MEDS: pregabalin 50 mg Capsule PO ×2 (08:26→17:05)
[2022-12-02] MEDS: oxyCODONE-APAP 5-325 mg Tablet 1 TAB PO ×2 (08:27→15:30)
--- NOTE | 2022-12-02 08:33 | XRR_ITS ---
PROCEDURE INFORMATION: Exam: XR Chest Exam date and time: 12/02/2022 9:08 AM Age: 47 years old Clinical indication: Condition or disease; Lung condition and disease; Pneumonia; Additional info: Pna TECHNIQUE: Imaging protocol: Radiologic exam of the chest. Views: 1 view. COMPARISON: CR (CHEST, ) 11/30/2022 5:27 AM FINDINGS: Tubes, catheters and devices: Right subclavian central line tip is in the right atrium. Lungs: There is no consolidation. Assessment of the left lung is limited by patient rotation. Pleural spaces: There is no pneumothorax. No large effusion. Heart/Mediastinum: Cardiomediastinal contours are unremarkable. Bones/joints: Bones are unremarkable. XR/XR chest 1V portable [id number] IMPRESSION: 1. No change since 11/30/2022. 2. Right subclavian central line tip is in the right atrium.
[2022-12-02] MEDS: sodium chloride 3.5% neb 4 mL Neb INHALATION ×2 (08:59→20:13)
[2022-12-02 09:01] LABS: Procalcitonin 0.17 ng/mL (0-0.5)
--- NOTE | 2022-12-02 09:13 | PC.RESP ---
pt unable to give sputum sample at this time. will try again later
--- NOTE | 2022-12-02 09:13 | PC.NURSE ---
Dr. Tobar came to bedside, gave order to hold d/c, do UA and blood culture, Dr. Ernst called and added order for resp panel
--- NOTE | 2022-12-02 10:22 | PC.CHAP ---
Pastoral Care Encounter/Spiritual Assessment Type of Contact [] Declined mucker operator visit [] Patient/Family/Request visit [] Outpatient visit [] Follow-up visit [] Physician referral [] Code/Alert [x] Routine visit [] Staff referral [] Actively dying [] Patient sleeping [] Family support [] [] Out of room [] Palliative care [] [] Receiving care in room [] Pre-surgical visit [] Trauma [] Long length of stay [x] ICU visit [x] Other: ran a little fever in the pm... but hoping to be flown to family out of state. Relational/Emotional Strength [] Patient feels connected with others/family/visitors/staff [] Distress [] Loneliness/isolation [] Abandonment Spirituality of Patient [] Person of Susan [] Attends Yarsanism of their Susan [] Believes in Prayer [] Reads Bible or Alevism materials [] There are Spiritual issues to be addressed Stone Finisher Interventions [x] Prayer [] Active listening [] Non-anxious presence [] Spiritual/emotional support [] Crisis/trauma care [] Spiritual counseling [] Bereavement support [] Provided bereavement packet [] Provided Bible/devotional materials [] Provided toy/stuffed animal, coloring book to patient or family member [] Provided Communion [] Anointing/[place] [] Salvation [x] Completed spiritual assessment [] Other: Impact on Illness or Injury [] Angry [] Fearful [] Anxious [] Often cries [] Exhaustion [] Unable to work [] Unable to attend advent [] Unable to walk/stand [] Unable to read [] Unable to drive [] Unable to eat/drink [] Unable to sleep [] Unable to be with family [] Patient intubated [] Other: Summary Time spent with patient
[2022-12-02 10:27] LABS: Bacteria Urine R /hpf; Bilirubin Urine Neg (Negative); Blood Urine 3+ (Negative); Glucose Urine UA Norm (Normal); Ketones Urine 1+ (Negative); Leukocyte Esterase Urine Negative (Negative); Nitrate Urine Negative (Negative); Protein Urine Neg (Negative); Specific Gravity, Urine 1.005 (1.005-1.030); Squamous Epithelial Cell Urine 0-4 /hpf (0-5); Urine Appearance Hazy (CLEAR); Urine Color Yellow (Yellow); Urobilinogen Urine Neg (Negative); pH Urine 7 (5-7)
[2022-12-02 10:28] LABS: Add Urine Culture? No
--- NOTE | 2022-12-02 10:31 | PM.PN ---
Subjective Subjective: Patient reports that her pain is much better. She is off oxygen, tolerating diet. Patient was febrile overnight Vitals/I&O/Wt Last Vital Signs Temp 100.3 F H 12/03/22 02:30 Pulse 99 12/03/22 06:00 Resp 16 12/03/22 04:00 BP 113/71 12/03/22 04:00 Pulse Ox 94 12/03/22 04:00 O2 Del Method 12/03/22 02:00 O2 Flow Rate 2 12/02/22 16:00 FiO2 40 11/28/22 16:15 12/02/22 12/02/22 12/03/22 14:59 22:59 06:59 Intake Total 840 / 840 290 / 1130 Output Total 1113 / 1113 1050 / 2163 Balance -273 / -273 -760 / -1033 Physical Exam Narrative: General: In distress, awake alert and oriented x3 Abdomen: Soft, nondistended, no guarding rebound or masses Incisions intact without erythema or exudate Ostomy pink patent and producing Drain serosanguineous Urinary Catheter Management: Suprapubic: Cath Placed During This Visit: no Data 12/03/22 03:02 12/03/22 03:02 Micro: Microbiology 12/02/22 08:57 Blood Culture - Preliminary Blood SPECIMEN COLLECTED 12/02/22 08:55 Blood Culture - Preliminary Blood SPECIMEN COLLECTED A&P Assessment and plan (1) Bowel obstruction: (2) Colostomy in place: (3) Ischemic colon: Plan Status post exploratory laparotomy, lysis of adhesions for small bowel obstruction, right hemicolectomy for ischemia and colostomy revision Sputum, urine and blood cultures Hold discharge Regular diet Medical management per hospitalist-appreciate input Attestations Medical Necessity Statement*: Patient reports at least 1 more night in the hospital for work-up for fever and tachycardia Coding Level of Care Code Acute Code for [facility] Diagnoses Bowel obstruction K56.[address] Z93.3 Ischemic colon K55.9
[2022-12-02 11:14] LABS: Glucose Point of Care 111 mg/dL (70-110)
[2022-12-02 11:30] LABS: Adenovirus Not Detected (NOT DETECT); Chlamydia Pneumoniae Not Detected (NOT DETECT); Coronavirus 229E,HKU1,NL63,OC4 Not Detected (NOT DETECT); Human Metapneumovirus Not Detected (NOT DETECT); Human Rhinovirus/Enterovirus Not Detected (NOT DETECT); Influenza A Not Detected (NOT DETECT); Influenza A H1 Not Detected (NOT DETECT); Influenza A H1-2009 Not Detected (NOT DETECT); Influenza A H3 Not Detected (NOT DETECT); Influenza B Not Detected (NOT DETECT); Mycoplasma Pneumoniae Not Detected (NOT DETECT); Parainfluenza Virus Type 1 Not Detected (NOT DETECT); Parainfluenza Virus Type 2 Not Detected (NOT DETECT); Parainfluenza Virus Type 3 Not Detected (NOT DETECT); Parainfluenza Virus Type 4 Not Detected (NOT DETECT); Respiratory Syncytial Virus A Not Detected (NOT DETECT); Respiratory Syncytial Virus B Not Detected (NOT DETECT); SARS-COV-2 Not Detected (NOT DETECT)
[2022-12-02] MEDS: acetaminophen 325 mg Tablet 650 MG PO (15:17)
[2022-12-02 15:58] LABS: Glucose Point of Care 91 mg/dL (70-110)
--- NOTE | 2022-12-02 16:31 | CT_ITS ---
WS: [id number] CT ABDOMEN AND PELVIS NONCONTRAST HISTORY: post operative, right abdominal pain, hydronephrosis TECHNIQUE: Imaging performed through the abdomen and pelvis. Coronal and sagittal reformats are submi tted. All CT scans at [facility] use at least one of these dose optimization techniques: auto mated exposure control; mA and/or kV adjustment per patient size (includes targeted exams where dose is matched to clinical indication); or iterative reconstruction. DLP: 646.53 mGy.cm COMPARISON: 11/26/2022, 11/22/2022 Lower thorax: Very small bilateral pleural effusions with adjacent atelectasis. Heart size is normal. No hiatal hernia. Liver: Normal size liver. No mass or bile duct dilatation. Gallbladder: Normal gallbladder. Pancreas: Normal size and attenuation. Normal pancreatic duct. No pancreatitis or mass. Spleen: Normal. Adrenal glands: Normal. No mass. Right kidney: Unchanged moderate to severe hydronephrosis. No cause for the ureteral obstruction. Left kidney: Very mild dilatation of the extrarenal pelvis. Nonobstructing calcification LEFT kidney. Aorta: Mild atherosclerosis abdominal aorta with no aneurysm. There are several foci of free air within the abdomen that are not definitely contained within the nolberto men of the GI tract. These were not present on the prior study. Could be related to removal of the adam rgical drains. With the extent of wall thickening and and pericolonic edema, perforation needs to be considered. Mild diffuse mesenteric edema. There is a small amount of ascites. Fluid collection in the pelvis aline sures 8.4 x 6.3. Slightly increased in size since the prior study. This fluid collection is adjacent to several sutures in the RIGHT lower quadrant. GI tract: Prior gastric sleeve. No small bowel obstruction. Partial colectomy. LEFT lower quadrant co lostomy. There is marked wall thickening with luminal narrowing involving the distal colon. Wall thic kening measures up to 1.3 cm. There is marked fecal retention throughout the proximal colon extending through the transverse colon. There is pericolonic soft tissue stranding in the RIGHT abdomen. Peric olonic edema in the RIGHT abdomen adjacent to the hepatic flexure and transverse colon. There are als o a few small foci of air which appear extraluminal along the colon. Marked colonic wall thickening i n the RIGHT colon has improved. Abdominal wall: Midline postoperative changes. LEFT lower quadrant ostomy site. Pelvis: Urinary bladder is nondistended. Dumont catheter in place. There are stones in the bladder. Osseous structures: No interval change. CT/CT abdomen pelvis wo con [id number] IMPRESSION: 1. Study performed without IV and oral contrast. 2. There are several foci of free air within the abdomen which are not definit tristen contained within the lumen of the GI tract. Bowel perforation needs to be c onsidered. A small foci of free air also could be related to the peritoneal cathy ins that were recently removed. 3. Fluid collection in the central pelvis extends towards the mesenteric root. Slight increase in size but this is an ill-defined collection. Also described on the prior examination of 11/26/2022 but has slightly increased in size. No foc i of air within this collection. 4. New pericolonic and omental stranding surrounding the ascending colon and t ransverse colon with a few adjacent foci of air. Recommend surveillance for pos sible perforation. 5. LEFT lower quadrant ostomy site.
--- NOTE | 2022-12-02 16:34 | P.PN_ITS ---
Subjective Subjective: Today morning examination patient lying comfortably in bed. Complaining of stabbing pain in the right side near the suture line. Passing gas. No nausea or vomiting. X-ray done by primary team yesterday ruled out any worsening small bowel obstruction postoperatively. Patient did have a fever g oing up to 101 overnight. Today morning 99. Otherwise has remained hemodynamically stable. Vitals/I&O/Wt Last Vital Signs Temp 99.4 F 12/02/22 16:00 Pulse 91 12/02/22 16:00 Resp 18 12/02/22 16:00 BP 99/70 12/02/22 16:00 Pulse Ox 97 12/02/22 16:00 O2 Del Method 12/02/22 16:00 O2 Flow Rate 2 12/02/22 16:00 FiO2 40 11/28/22 16:15 12/02/22 12/02/22 12/02/22 06:59 14:59 22:59 Intake Total 100 / 330 Output Total 950 / 1800 Balance -850 / -1470 Physical Exam Narrative: General: No acute distress, awake and alert x3. HEENT: PERRLA, pupils bilaterally equal and reactive Chest: Normal vesicular breath sounds anteriorly, no added sounds, equal good air entry bilaterally CVS: S1-S2 regular, no murmurs, no tachycardia, no gallops, no rubs Abdomen: post operative, anterior abdomen surgical dressing in place, not opened for exam by me, multiple abdominal drains present, colostomy present Neuro: Moving all limbs, AOx3 Urinary Catheter Management: Suprapubic: Cath Placed During This Visit: no Data 12/02/22 05:45 12/02/22 05:45 Micro: Microbiology 12/02/22 08:57 Blood Culture - Preliminary Blood SPECIMEN COLLECTED 12/02/22 08:55 Blood Culture - Preliminary Blood SPECIMEN COLLECTED 11/28/22 08:35 Fungal Smear - Preliminary Pleural Fluid A&P Assessment and plan (1) Fever: Overnight patient had fever going up to 101 on 12/01. Check blood cultures, urinalysis, urine culture, respiratory viral panel to rule out COVID-19 or flu. Continue with meropenem for now. Continue with oral fluconazole. Change suprapubic catheter. Repeat CT abdomen pelvis to rule out worsening of hydro or ureteral nephrosis especially given right-sided abdominal pain. (2) Septic shock: Resolved. CT abdomen and pelvis findings appreciated Blood culture: NTD Urine culture: No growth Prior history of ESBL Proteus.M Vancomycin stopped on 12/01. Continue meropenem for now given overnight fevers. Also covered with antifungal fluconazole to finish a 7-day course. Maintain MAP greater than 65 Decubitus ulcer management as per recent wound care follow-up plan. (3) Bowel obstruction: s/p ex lap, right hemicolectomy, colostomy revision for large and small bowel obstruction, right colon ischemia Diet, postoperative care, colostomy and wound care management per primary team. (4) Sepsis: (5) Respiratory failure: Acute hypoxic respiratory failure with complete left lung collapse secondary to mucous plugging / pneumonia: CTA chest done on 11/27: Complete left lung atelectasis due to mucous plugging, small bilateral pleural effusion. S/p bronchoscopy: With clearing of mucous plugging. Post bronc chest x-ray has shown improvement in the left lung field aeration. Follow-up bronc cultures. Continue on hypertonic saline, Mucomyst. Patient is not a good candidate for chest vest given abdominal surgery. Incentive spirometry and flutter valve as possible. Oxygen supplementation keeping saturation over 90%. Ipratropium, Xopenex every 6 hours, (6) Ischemic colon: (7) Metabolic acidosis: Resolved. (8) Anemia: Possibly postop blood loss S/p 1 unit PRBC transfusion: Currently stable around 9.5 Monitor H&H Transfuse to maintain hemoglobin greater than 7 (9) Hypomagnesemia: Monitor and replace serum magnesium (10) Hyperphosphatemia: Monitor serum phosphorus (11) Hypoalbuminemia: Will give her 1 dose of albumin (12) Hypocalcemia: Has received IV calcium. Monitor serum calcium for now (13) Pneumonia: As above. (14) Mucus plugging of bronchi: (15) Complete atelectasis of left lung: Plan B/L Hydroureteronephrosis.: Mild right greater than left hydroureteronephrosis. Urology has seen the patient in the past, and at that time they decided not for any intervention. Analgesia: Restart home dose of oxycodone 5 every 6 hours as needed Glycemic control: Not needed Nutrition: Regular diet as per primary team CODE STATUS: Full code PUD prophylaxis: Protonix DVT prophylaxis: Heparin 5000 every 12 hourly. Discharge planning: Discharge to [facility] at [place] near family once stable as per primary team. Can be transferred to medical floor if okay with primary team. Care discussed in detail with patient's primary team, RN at bedside. All the questions were answered. This documentation was created by [employer] drafter refrigeration software. Every effort was made to ensure accuracy of drafter refrigeration. Any obvious errors or omissions should be clarified with the author of the document. Attestations Medical Necessity Statement*: Requires further hospitalization for postoperative care in setting of hemicolectomy, colostomy revision in setting of ischemic bowel, fever viral infectious causes are ruled out and safe discharge planning is sought. Coding Level of Care Code 10517 Moderate MDM includes risk/complexity, reviewing previous or external records, reviewing test results, ordering lab/other test(s), independently interpretating test(s) (not separately recorded) and discussion of management or test(s) w/ other healthcare professional and High Time for a total of 50 minutes, includes reviewing past or interval history, examining/interviewing patient, placing orders, counseling patient/family/other support, updating patient/family/other support, discussing plan of care with staff, communicating with other healthcare providers, documenting encounter and coordinating care Diagnoses Fever R50.9 Septic shock A41.9; R65.21 Bowel obstruction K56.609 Sepsis A41.9 Respiratory failure J96.90 Ischemic colon K55.9 Metabolic acidosis E87.20 Anemia D64.9 Hypomagnesemia E83.42 Hyperphosphatemia E83.39 Hypoalbuminemia E88.09 Hypocalcemia E83.51 Pneumonia J18.9 Mucus plugging of bronchi T17.500A Complete atelectasis of left lung J98.11
[2022-12-02 21:07] LABS: Glucose Point of Care 133 mg/dL (70-110)
[2022-12-02] MEDS: atorvastatin 40 mg Tablet 20 MG PO (21:07)
[2022-12-03] VITALS (27 sets, daily range): BP systolic 96–129; BP diastolic 67–89; PULSE 88–104; RESP 15–25; TEMP 37.1–38.6; O2SAT 91–96
[2022-12-03] MEDS: oxyCODONE-APAP 5-325 mg Tablet 1 TAB PO ×4 (00:42→22:19)
[2022-12-03] MEDS: levalbuterol 0.63 mg/3 mL Neb INHALATION ×4 (03:06→20:54)
[2022-12-03] MEDS: ipratropium 0.5 mg/2.5 mL Neb INHALATION ×4 (03:06→20:54)
[2022-12-03 03:39] LABS: Basophils % 0.2 %; Eosinophils % 0.2 %; Hematocrit 30.7 % (37.0-47.0); Hemoglobin 9.6 g/dL (11.5-15.3); Lymphocytes # 1.2 10^3/uL (0.8-4.8); Lymphocytes % 12.7 %; Mean Corpuscular HGB Conc 31.3 g/dL (30.0-36.0); Mean Corpuscular Hemoglobin 28.2 pg (28.0-34.0); Mean Platelet Volume 10.3 fL (7.4-10.4); Monocytes # 0.6 10^3/uL (0.2-0.9); Monocytes % 6.5 %; Neutrophils # 7.78 10^3/uL (1.8-7.7); Neutrophils % 79.6 %; Nucleated Red Blood Cells % 0 %; Platelet Count 357 10^3/cmm (130-400); Red Blood Count 3.41 10^6/uL (4.1-5.3); Red Cell Distribution Width 17.1 % (12.1-15.1); White Blood Count 9.8 10^3/uL (4.0-10.0)
[2022-12-03 03:53] LABS: Alanine Aminotransferase 19 U/L (0-33); Alkaline Phosphatase 76 U/L (35-105); Anion Gap 13.3 (5-19); Aspartate Amino Transferase 13 U/L (0-32); Blood Urea Nitrogen 12 mg/dL (6-20); Calcium 8.5 mg/dL (8.5-10.5); Carbon Dioxide 29 mmol/L (22-29); Chloride 99 mmol/L (98-107); Globulin 3.1 g/dL (1.3-4.6); Glomerular Filtration Rate 132.2 mL/min (90-130); Glucose 124 mg/dL (65-115); Osmolality Calculated 285 mOsm/kg (285-295); Potassium 4.3 mmol/L (3.5-5.1); Sodium 137 mmol/L (136-145); Total Bilirubin 0.2 mg/dL (0.15-1.2); Total Protein 6.1 g/dL (6.6-8.7)
[2022-12-03] MEDS: acetaminophen 325 mg Tablet 650 MG PO (05:37)
[2022-12-03] MEDS: meropenem 1,000 MG in sodium chloride 0.9% (plus) 50 ML 100 MG IV ×3 (05:38→23:24)
[2022-12-03] MEDS: sodium chloride 3.5% neb 4 mL Neb INHALATION (08:18)
[2022-12-03 08:41] LABS: Glucose Point of Care 119 mg/dL (70-110)
[2022-12-03] MEDS: fluconazole 100 mg Tablet 200 MG PO (08:43)
[2022-12-03] MEDS: gabapentin 400 mg Capsule 1200 MG PO ×3 (08:44→20:50)
[2022-12-03] MEDS: guaiFENesin 600 mg Tablet 1200 MG PO ×2 (08:44→18:13)
[2022-12-03] MEDS: oxybutynin 5 mg Tablet PO ×3 (08:45→20:50)
[2022-12-03] MEDS: pantoprazole DR 40 mg Tablet PO (08:46)
[2022-12-03] MEDS: sertraline 50 mg Tablet PO (08:46)
[2022-12-03] MEDS: pregabalin 50 mg Capsule PO ×2 (08:46→23:41)
[2022-12-03] MEDS: fentaNYL 50 mcg Patch 1 PATCH TRANSDERMA (09:22)
[2022-12-03] MEDS: heparin 5,000 unit/mL INJ 1 mL 5000 UNIT SUBCUT ×3 (09:27→23:36)
[2022-12-03 11:13] LABS: Glucose Point of Care 162 mg/dL (70-110)
[2022-12-03] MEDS: lactulose oral liq 20 gm/30 mL UDC 10 GM PO ×3 (11:21→23:26)
[2022-12-03] MEDS: insulin lispro 100 unit/1 mL SUBCUT (11:22)
[2022-12-03] MEDS: ondansetron 2 mg/ML SDV 2 mL 4 MG IVP ×3 (11:23→23:28)
--- NOTE | 2022-12-03 13:38 | PC.NURSE ---
Report called to KRIS Bailey on Medical Surgical floor. Patient to be transferred to room 264. Patient made aware of transfer and verbalized understanding. Sabino Nielsen(patient's brother) was contacted and notified of transfer, voiced he would call and check on her later this evening. Patient to be transferred via bed accompanied by this nurse and nursing technician Frida. Belongings sent with patient and placed at bedside. Patient noted to be A&O at time of transfer.
[2022-12-03 17:08] LABS: Glucose Point of Care 118 mg/dL (70-110)
--- NOTE | 2022-12-03 19:12 | PM.PN ---
Subjective Subjective: Patient was febrile overnight. She continues to say she has the same right-sided abdominal pain. Vitals/I&O/Wt Last Vital Signs Temp 98.7 F 12/03/22 16:00 Pulse 99 12/03/22 16:00 Resp 18 12/03/22 16:13 BP 106/73 12/03/22 16:00 Pulse Ox 95 12/03/22 16:13 O2 Del Method 12/03/22 16:00 O2 Flow Rate 2 12/02/22 16:00 FiO2 40 11/28/22 16:15 12/03/22 12/03/22 12/03/22 06:59 14:59 22:59 Intake Total 290 / 1130 240 / 240 Output Total 1050 / 2163 900 / 900 650 / 1550 Balance -760 / -1033 -660 / -660 -650 / -1310 Physical Exam Narrative: General: In distress, awake alert and oriented x3 Abdomen: Soft, nondistended, tender to palpation right abdomen no guarding rebound or masses Incisions intact without erythema or exudate Ostomy pink patent and producing Drain serosanguineous Urinary Catheter Management: Suprapubic: Cath Placed During This Visit: yes Reason for Continuing Indwelling Catheter: Chronic Indwelling Urinary Catheter on Admission Urinary Catheter Date of Insertion: 12/03/22 Urinary Catheter Time of Insertion: 14:21 Data 12/03/22 03:02 12/03/22 03:02 Micro: Microbiology 12/02/22 08:57 Blood Culture - Preliminary Blood NEGATIVE TO DATE 12/02/22 08:55 Blood Culture - Preliminary Blood NEGATIVE TO DATE A&P Assessment and plan (1) Bowel obstruction: (2) Colostomy in place: (3) Ischemic colon: Plan Status post exploratory laparotomy, lysis of adhesions for small bowel obstruction, right hemicolectomy for ischemia and colostomy revision I called the radiologist who read the CT from last night and went over it. She reports that the anastomosis looks healthier but that there is slightly increased free fluid in the root of the mesentery. No abscess yet. There are 3 dots of extraluminal air that are likely related to removal of the CARLY drains. She doubts there is a perforation and so to why but we will watch for it Regular diet Medical management per hospitalist-appreciate input Attestations Medical Necessity Statement*: Patient reports at least 1 more night in the hospital for work-up for fever and tachycardia Coding Level of Care Code Acute Code for Chg Fwd Diagnoses Bowel obstruction K56.[address] Z93.3 Ischemic colon K55.9
[2022-12-03] MEDS: atorvastatin 40 mg Tablet 20 MG PO (20:50)
[2022-12-03 21:26] LABS: Glucose Point of Care 111 mg/dL (70-110)
--- NOTE | 2022-12-03 22:17 | PM.PN ---
Subjective Subjective: Today morning patient seen in the ICU. Patiently comfortably in bed. States pain on the right side yesterday but a lot better than before. As per the nurse patient is not passing any stools from ostomy for last 24 to 36 hours. Patient states she is passing less gas to the ostomy tube. Patient otherwise denies any nausea, vomiting, headache. Able to tolerate diet well. Has remained hemodynamically stable and on baseline oxygen supplementation. Tmax last 24 hours again more than [address] abdomen pelvis results appreciated with discussed in detail with patient, surgeon who has discussed the CT images in detail with radiology. Vitals/I&O/Wt Last Vital Signs Temp 99.2 F 12/03/22 20:00 Pulse 88 12/03/22 20:55 Resp 16 12/03/22 20:55 BP 99/69 12/03/22 20:00 Pulse Ox 96 12/03/22 20:55 O2 Del Method 12/03/22 20:55 O2 Flow Rate 2 12/02/22 16:00 FiO2 40 11/28/22 16:15 12/03/22 12/03/22 12/03/22 06:59 14:59 22:59 Intake Total 290 / 1130 240 / 240 Output Total 1050 / 2163 900 / 900 650 / 1550 Balance -760 / -1033 -660 / -660 -650 / -1310 Physical Exam Narrative: General: No acute distress, awake and alert x3. HEENT: PERRLA, pupils bilaterally equal and reactive Chest: Normal vesicular breath sounds anteriorly, no added sounds, equal good air entry bilaterally CVS: S1-S2 regular, no murmurs, no tachycardia, no gallops, no rubs Abdomen: post operative, anterior abdomen surgical dressing in place, not opened for exam by me, multiple abdominal drains present, colostomy present Neuro: Moving all limbs, AOx3 Urinary Catheter Management: Suprapubic: Cath Placed During This Visit: yes Reason for Continuing Indwelling Catheter: Chronic Indwelling Urinary Catheter on Admission Urinary Catheter Date of Insertion: 12/03/22 Urinary Catheter Time of Insertion: 14:21 Data 12/03/22 03:02 12/03/22 03:02 Micro: Microbiology 12/02/22 08:57 Blood Culture - Preliminary Blood NEGATIVE TO DATE 12/02/22 08:55 Blood Culture - Preliminary Blood NEGATIVE TO DATE A&P Assessment and plan (1) Fever: Overnight patient had fever going up to 101 on 12/01. Blood cultures sent on 12/02 so far negative. Urinalysis benign. Respiratory viral panel negative. Suprapubic catheter changed on 12/03. CT abdomen pelvis done yesterday consistent with intra-abdominal collections. Continue with meropenem for now. Continue with oral fluconazole. (2) Intra-abdominal collection: Seen on CT scan done on 12/02. Discussed in detail with primary team. Primary team have discussed the images in detail with radiology as per them there are no concerns for large perforations for now. Collections are not amenable to IR drainage. Plan for now will be to continue IV antibiotics for around a week and repeat CAT scan for further evaluation of the intra-abdominal collection going forward. (3) Septic shock: Resolved. CT abdomen and pelvis findings appreciated Blood culture: NTD Urine culture: No growth Prior history of ESBL Proteus.M Vancomycin stopped on 12/01. Continue meropenem for now given overnight fevers. Also covered with antifungal fluconazole to finish a 7-day course. Maintain MAP greater than 65 Decubitus ulcer management as per recent wound care follow-up plan. (4) Bowel obstruction: s/p ex lap, right hemicolectomy, colostomy revision for large and small bowel obstruction, right colon ischemia Diet, postoperative care, colostomy and wound care management per primary team. As per patient and the nurse she is not having any output through the ostomy. Discussed in detail with primary surgeon. Advises to restart home bowel regimen along with lactulose every 6 hours. No suggestion of small bowel obstruction on CAT scan done on 12/02. (5) Sepsis: (6) Respiratory failure: Acute hypoxic respiratory failure with complete left lung collapse secondary to mucous plugging / pneumonia: CTA chest done on 11/27: Complete left lung atelectasis due to mucous plugging, small bilateral pleural effusion. S/p bronchoscopy: With clearing of mucous plugging. Post bronc chest x-ray has shown improvement in the left lung field aeration. Follow-up bron cultures. Continue on hypertonic saline, Mucomyst. Patient is not a good candidate for chest vest given abdominal surgery. Incentive spirometry and flutter valve as possible. Oxygen supplementation keeping saturation over 90%. Ipratropium, Xopenex every 6 hours, (7) Ischemic colon: (8) Metabolic acidosis: Resolved. (9) Anemia: Possibly postop blood loss S/p 1 unit PRBC transfusion: Currently stable around 9.5 Monitor H&H Transfuse to maintain hemoglobin greater than 7 (10) Hypomagnesemia: Monitor and replace serum magnesium (11) Hyperphosphatemia: Monitor serum phosphorus (12) Hypoalbuminemia: Will give her 1 dose of albumin (13) Hypocalcemia: Has received IV calcium. Monitor serum calcium for now (14) Pneumonia: As above. (15) Mucus plugging of bronchi: (16) Complete atelectasis of left lung: Plan B/L Hydroureteronephrosis.: Mild right greater than left hydroureteronephrosis. Urology has seen the patient in the past, and at that time they decided not for any intervention. Appreciated again on CAT scan done on 12/02. Analgesia: Restart home dose of oxycodone 5 every 6 hours as needed Glycemic control: Not needed Nutrition: Regular diet as per primary team CODE STATUS: Full code PUD prophylaxis: Protonix DVT prophylaxis: Heparin 5000 every 12 hourly. Discharge planning: Discharge to SNF at [facility] [place] once stable as per primary team. Transfer to [facility] floor. Care discussed in detail with patient's primary team, RN at bedside. All the questions were answered. This documentation was created by [employer] plant etiologist software. Every effort was made to ensure accuracy of plant etiologist. Any obvious errors or omissions should be clarified with the author of the document. Attestations Medical Necessity Statement*: Requesting hospitalization for management of fever, intra-abdominal collections in setting of postoperative care for ischemic colitis, ileostomy revision. Coding Level of Care Code 63011 High MDM includes risk/complexity, reviewing previous or external records, reviewing test results, ordering lab/other test(s), speaking with independent historian (other than patient), independently interpretating test(s) (not separately recorded) and discussion of management or test(s) w/ other healthcare professional and High Time for a total of 50 minutes, includes reviewing past or interval history, examining/interviewing patient, placing orders, counseling patient/family/other support, updating patient/family/other support, discussing plan of care with staff, communicating with other healthcare providers, documenting encounter and coordinating care Diagnoses Fever R50.9 Intra-abdominal collection R18.8 Septic shock A41.9; R65.21 Bowel obstruction K56.609 Sepsis A41.9 Respiratory failure J96.90 Ischemic colon K55.9 Metabolic acidosis E87.20 Anemia D64.9 Hypomagnesemia E83.42 Hyperphosphatemia E83.39 Hypoalbuminemia E88.09 Hypocalcemia E83.51 Pneumonia J18.9 Mucus plugging of bronchi T17.500A Complete atelectasis of left lung J98.11
[2022-12-03] MEDS: cyclobenzaprine 10 mg Tablet 5 MG PO (22:19)
[2022-12-04] VITALS (14 sets, daily range): BP systolic 106–120; BP diastolic 71–82; PULSE 83–91; RESP 16–19; TEMP 36.8–37.3; O2SAT 93–98
[2022-12-04] MEDS: ipratropium 0.5 mg/2.5 mL Neb INHALATION ×4 (03:17→21:18)
[2022-12-04] MEDS: levalbuterol 0.63 mg/3 mL Neb INHALATION ×4 (03:17→21:18)
[2022-12-04] MEDS: lactulose oral liq 20 gm/30 mL UDC 10 GM PO ×4 (05:35→22:46)
[2022-12-04] MEDS: meropenem 1,000 MG in sodium chloride 0.9% (plus) 50 ML 100 MG IV ×3 (05:35→22:06)
[2022-12-04 06:29] LABS: Glucose Point of Care 115 mg/dL (70-110)
[2022-12-04] MEDS: heparin 5,000 unit/mL INJ 1 mL 5000 UNIT SUBCUT ×3 (09:40→22:50)
[2022-12-04] MEDS: sertraline 50 mg Tablet PO (09:41)
[2022-12-04] MEDS: oxybutynin 5 mg Tablet PO ×3 (09:41→22:12)
[2022-12-04] MEDS: fluconazole 100 mg Tablet 200 MG PO (09:41)
[2022-12-04] MEDS: pregabalin 50 mg Capsule PO ×2 (09:41→18:31)
[2022-12-04] MEDS: guaiFENesin 600 mg Tablet 1200 MG PO ×2 (09:41→18:31)
[2022-12-04] MEDS: gabapentin 400 mg Capsule 1200 MG PO ×3 (09:42→22:15)
[2022-12-04] MEDS: pantoprazole DR 40 mg Tablet PO (09:42)
[2022-12-04] MEDS: oxyCODONE-APAP 5-325 mg Tablet 1 TAB PO ×2 (09:43→18:31)
[2022-12-04] MEDS: sodium chloride 3.5% neb 4 mL Neb INHALATION ×2 (09:44→21:18)
[2022-12-04 11:18] LABS: Glucose Point of Care 138 mg/dL (70-110)
[2022-12-04] MEDS: cyclobenzaprine 10 mg Tablet 5 MG PO ×2 (11:37→22:12)
--- NOTE | 2022-12-04 12:05 | PC.CHAP ---
Pastoral Care Encounter/Spiritual Assessment Type of Contact [] Declined tailor garment fitter visit [] Patient/Family/Request visit [] Outpatient visit [] Follow-up visit [] Physician referral [] Code/Alert [x] Routine visit [] Staff referral [] Actively dying [] Patient sleeping [] Family support [] [] Out of room [] Palliative care [] [x] Receiving care in room [] Pre-surgical visit [] Trauma [] Long length of stay [] ICU visit [] Other: Relational/Emotional Strength [x] Patient feels connected with others/family/visitors/staff [] Distress [] Loneliness/isolation [] Abandonment Spirituality of Patient [x] Person of Susan [] Attends Congregation of their Susan [x] Believes in Prayer [] Reads Bible or Scientologist materials [] There are Spiritual issues to be addressed Shingle Catcher Interventions [x] Prayer [x] Active listening [x] Non-anxious presence [x] Spiritual/emotional support [] Crisis/trauma care [x] Spiritual counseling [] Bereavement support [] Provided bereavement packet [] Provided Bible/devotional materials [] Provided toy/stuffed animal, coloring book to patient or family member [] Provided Communion [] Anointing/[place] [] Salvation [x] Completed spiritual assessment [] Other: Impact on Illness or Injury [] Angry [] Fearful [] Anxious [] Often cries [] Exhaustion [] Unable to work [] Unable to attend catholic [] Unable to walk/stand [] Unable to read [] Unable to drive [] Unable to eat/drink [] Unable to sleep [] Unable to be with family [] Patient intubated [] Other: Summary congestion and lungs has a good attitude well go home Time spent with patient 10 mins
[2022-12-04 13:30] LABS: Basophils % 0.3 %; Eosinophils % 0.3 %; Hematocrit 30.5 % (37.0-47.0); Hemoglobin 9.3 g/dL (11.5-15.3); Lymphocytes # 1.3 10^3/uL (0.8-4.8); Mean Corpuscular HGB Conc 30.5 g/dL (30.0-36.0); Mean Corpuscular Hemoglobin 27.6 pg (28.0-34.0); Mean Corpuscular Volume 90.5 fl (81-99); Mean Platelet Volume 10.7 fL (7.4-10.4); Monocytes # 0.7 10^3/uL (0.2-0.9); Monocytes % 6.8 %; Neutrophils # 7.54 10^3/uL (1.8-7.7); Neutrophils % 78.8 %; Nucleated Red Blood Cells % 0 %; Platelet Count 372 10^3/cmm (130-400); Red Blood Count 3.37 10^6/uL (4.1-5.3); Red Cell Distribution Width 16.6 % (12.1-15.1); White Blood Count 9.6 10^3/uL (4.0-10.0)
[2022-12-04 13:53] LABS: Anion Gap 13.3 (5-19); Blood Urea Nitrogen 11 mg/dL (6-20); Carbon Dioxide 29 mmol/L (22-29); Chloride 95 mmol/L (98-107); Glomerular Filtration Rate 132.2 mL/min (90-130); Glucose 114 mg/dL (65-115); Magnesium 2.2 mg/dL (1.7-2.3); Osmolality Calculated 276 mOsm/kg (285-295); Potassium 4.3 mmol/L (3.5-5.1); Sodium 133 mmol/L (136-145)
--- NOTE | 2022-12-04 14:23 | P.PN_ITS ---
Subjective Subjective: No acute vents overnight. [facility]. Patient denies any nausea, vomiting, headache. Still complaining of pain on the right side of the abdomen but states it is improving. Slight improvement in the ostomy output. As per the output charting it seems like she put out around 250 cc in last 24 hours. Tmax in last 24 hours 99.9 Fahrenheit. Vitals/I&O/Wt Last Vital Signs Temp 98.3 F 12/04/22 11:07 Pulse 85 12/04/22 14:11 Resp 16 12/04/22 14:07 BP 116/78 12/04/22 11:07 Pulse Ox 94 12/04/22 14:07 O2 Del Method 12/04/22 14:07 O2 Flow Rate 2 12/03/22 20:00 FiO2 40 11/28/22 16:15 12/03/22 12/04/22 12/04/22 22:59 06:59 14:59 Intake Total 50 / 290 730 / 1020 540 / 540 Output Total 650 / 1550 700 / 2250 325 / 325 Balance -600 / -1260 30 / -1230 215 / 215 Weight last 48 hrs Weight 65.181 kg Physical Exam Narrative: General: No acute distress, awake and alert x3. HEENT: PERRLA, pupils bilaterally equal and reactive Chest: Normal vesicular breath sounds anteriorly, no added sounds, equal good air entry bilaterally CVS: S1-S2 regular, no murmurs, no tachycardia, no gallops, no rubs Abdomen: post operative, anterior abdomen surgical dressing in place, not opened for exam by me, multiple abdominal drains present, colostomy present Neuro: Moving all limbs, AOx3 Urinary Catheter Management: Suprapubic: Cath Placed During This Visit: yes Reason for Continuing Indwelling Catheter: Chronic Indwelling Urinary Catheter on Admission Urinary Catheter Date of Insertion: 12/03/22 Urinary Catheter Time of Insertion: 14:21 Data 12/04/22 12:55 12/04/22 12:55 Micro: Microbiology 12/02/22 08:57 Blood Culture - Preliminary Blood NEGATIVE TO DATE 12/02/22 08:55 Blood Culture - Preliminary Blood NEGATIVE TO DATE A&P Assessment and plan (1) Fever: Fever curve improving. Has remained hemodynamically stable without leukocytosis. Blood cultures sent on 12/02 so far negative. Urinalysis benign. Respiratory viral panel negative. Suprapubic catheter changed on 12/03. CT abdomen pelvis done yesterday consistent with intra-abdominal collections. Continue with meropenem for now. Continue with oral fluconazole. (2) Intra-abdominal collection: Seen on CT scan done on 12/02. Discussed in detail with primary team. Primary team have discussed the images in detail with radiology as per them there are no concerns for large perforations for now. Collections are not amenable to IR drainage. Plan for now will be to continue IV antibiotics for around a week and repeat CAT scan for further evaluation of the intra-abdominal collection going forward. (3) Septic shock: Resolved. CT abdomen and pelvis findings appreciated Blood culture: NTD Urine culture: No growth Prior history of ESBL Proteus.M Vancomycin stopped on 12/01. Continue meropenem for now given overnight fevers. Also covered with antifungal fluconazole to finish a 7-day course. Maintain MAP greater than 65 Decubitus ulcer management as per recent wound care follow-up plan. (4) Bowel obstruction: s/p ex lap, right hemicolectomy, colostomy revision for large and small bowel obstruction, right colon ischemia Diet, postoperative care, colostomy and wound care management per primary team. As per patient and the nurse she is not having any output through the ostomy. Discussed in detail with primary surgeon. Advises to restart home bowel regimen along with lactulose every 6 hours. No suggestion of small bowel obstruction on CAT scan done on 12/02. (5) Sepsis: (6) Respiratory failure: Acute hypoxic respiratory failure with complete left lung collapse secondary to mucous plugging / pneumonia: CTA chest done on 11/27: Complete left lung atelectasis due to mucous plugging, small bilateral pleural effusion. S/p bronchoscopy: With clearing of mucous plugging. Post bronc chest x-ray has shown improvement in the left lung field aeration. Follow-up bron cultures. Continue on hypertonic saline, Mucomyst. Patient is not a good candidate for chest vest given abdominal surgery. Incentive spirometry and flutter valve as possible. Oxygen supplementation keeping saturation over 90%. Ipratropium, Xopenex every 6 hours, (7) Ischemic colon: (8) Metabolic acidosis: Resolved. (9) Anemia: Possibly postop blood loss S/p 1 unit PRBC transfusion: Currently stable around 9.5 Monitor H&H Transfuse to maintain hemoglobin greater than 7 (10) Hypomagnesemia: Monitor and replace serum magnesium (11) Hyperphosphatemia: Monitor serum phosphorus (12) Hypoalbuminemia: Will give her 1 dose of albumin (13) Hypocalcemia: Has received IV calcium. Monitor serum calcium for now (14) Pneumonia: As above. (15) Mucus plugging of bronchi: (16) Complete atelectasis of left lung: Plan B/L Hydroureteronephrosis.: Mild right greater than left hydroureteronephrosis. Urology has seen the patient in the past, and at that time they decided not for any intervention. Appreciated again on CAT scan done on 12/02. Analgesia: Restart home dose of oxycodone 5 every 6 hours as needed Glycemic control: Not needed Nutrition: Regular diet as per primary team CODE STATUS: Full code PUD prophylaxis: Protonix DVT prophylaxis: Heparin 5000 every 12 hourly. Plan for the day: Continue with home bowel regimen including Linzess and Relistor as needed. Monitor ostomy output. We will discuss with primary team regarding repeat CAT scan. Continue with meropenem and fluconazole for now. Discharge planning: Discharge to SNF at [facility] once stable as per primary team. Transfer to [facility] floor. Care discussed in detail with patient's primary team, RN at bedside. All the questions were answered. This documentation was created by [email or web address] fish skinning machine feeder software. Every effort was made to ensure accuracy of fish skinning machine feeder. Any obvious errors or omissions should be clarified with the author of the document. Attestations Medical Necessity Statement*: As per primary team. Coding Level of Care Code 52839 Moderate MDM includes risk/complexity, reviewing previous or external records, reviewing test results, ordering lab/other test(s), speaking with independent historian (other than patient), independently interpretating test(s) (not separately recorded) and discussion of management or test(s) w/ other healthcare professional and Straight Forward/Low Time for a total of 20 minutes, includes reviewing past or interval history, examining/interviewing patient, placing orders, counseling patient/family/other support, updating patient/family/other support, discussing plan of care with staff, communicating with other healthcare providers, documenting encounter and coordinating care Diagnoses Fever R50.9 Intra-abdominal collection R18.8 Septic shock A41.9; R65.21 Bowel obstruction K56.609 Sepsis A41.9 Respiratory failure J96.90 Ischemic colon K55.9 Metabolic acidosis E87.20 Anemia D64.9 Hypomagnesemia E83.42 Hyperphosphatemia E83.39 Hypoalbuminemia E88.09 Hypocalcemia E83.51 Pneumonia J18.9 Mucus plugging of bronchi T17.500A Complete atelectasis of left lung J98.11
[2022-12-04 16:43] LABS: Glucose Point of Care 135 mg/dL (70-110)
--- NOTE | 2022-12-04 18:06 | PM.PN ---
Subjective Subjective: Patient much improved afebrile with pain under control. Ostomy producing Vitals/I&O/Wt Last Vital Signs Temp 98.7 F 12/04/22 16:00 Pulse 90 12/04/22 16:00 Resp 17 12/04/22 16:00 BP 113/78 12/04/22 16:00 Pulse Ox 94 12/04/22 16:00 O2 Del Method 12/04/22 16:00 O2 Flow Rate 2 12/03/22 20:00 FiO2 40 11/28/22 16:15 12/04/22 12/04/22 12/04/22 06:59 14:59 22:59 Intake Total 780 / 1070 540 / 540 Output Total 700 / 2250 575 / 575 Balance 80 / -1180 -35 / -35 Weight last 48 hrs Weight 143 lb 11.2 oz Physical Exam Narrative: General: In distress, awake alert and oriented x3 Abdomen: Soft, nondistended, tender to palpation right abdomen no guarding rebound or masses Incisions intact without erythema or exudate Ostomy pink patent and producing Urinary Catheter Management: Suprapubic: Cath Placed During This Visit: yes Reason for Continuing Indwelling Catheter: Chronic Indwelling Urinary Catheter on Admission Urinary Catheter Date of Insertion: 12/03/22 Urinary Catheter Time of Insertion: 14:21 Data 12/04/22 12:55 12/04/22 12:55 A&P Assessment and plan (1) Bowel obstruction: (2) Colostomy in place: (3) Ischemic colon: Plan Status post exploratory laparotomy, lysis of adhesions for small bowel obstruction, right hemicolectomy for ischemia and colostomy revision Plan to repeat CT and hopefully discharge on Thursday if no abscess formation Regular diet Medical management per hospitalist-appreciate input Attestations Medical Necessity Statement*: Patient requires multiple following exploratory laparotomy with fluid collection in abdomen Coding Level of Care Code Acute Code for Chg Fwd Diagnoses Bowel obstruction K56.[address] Z93.3 Ischemic colon K55.9
[2022-12-04] MEDS: atorvastatin 40 mg Tablet 20 MG PO (22:12)
[2022-12-04 22:33] LABS: Glucose Point of Care 133 mg/dL (70-110)
[2022-12-05] VITALS (17 sets, daily range): BP systolic 105–117; BP diastolic 69–82; PULSE 72–96; RESP 16–20; TEMP 36.6–37.3; O2SAT 93–99
[2022-12-05] MEDS: ipratropium 0.5 mg/2.5 mL Neb INHALATION ×4 (02:47→20:22)
[2022-12-05] MEDS: levalbuterol 0.63 mg/3 mL Neb INHALATION ×4 (02:47→20:22)
[2022-12-05] MEDS: ondansetron 2 mg/ML SDV 2 mL 4 MG IVP (04:29)
[2022-12-05] MEDS: lactulose oral liq 20 gm/30 mL UDC 10 GM PO ×4 (04:38→22:26)
[2022-12-05] MEDS: oxyCODONE-APAP 5-325 mg Tablet 1 TAB PO ×3 (04:38→17:54)
[2022-12-05] MEDS: meropenem 1,000 MG in sodium chloride 0.9% (plus) 50 ML 100 MG IV ×3 (05:49→22:21)
[2022-12-05 06:35] LABS: Glucose Point of Care 113 mg/dL (70-110)
[2022-12-05] MEDS: heparin 5,000 unit/mL INJ 1 mL 5000 UNIT SUBCUT ×3 (06:44→22:25)
[2022-12-05 07:11] LABS: Basophils % 0.4 %; Eosinophils % 0.3 %; Lymphocytes # 1.4 10^3/uL (0.8-4.8); Lymphocytes % 19.4 %; Mean Corpuscular Volume 90.1 fl (81-99); Mean Platelet Volume 10.4 fL (7.4-10.4); Monocytes # 0.7 10^3/uL (0.2-0.9); Monocytes % 9.7 %; Neutrophils # 5.09 10^3/uL (1.8-7.7); Neutrophils % 69.4 %; Nucleated Red Blood Cells % 0 %; Platelet Count 319 10^3/cmm (130-400); Red Blood Count 3.22 10^6/uL (4.1-5.3); Red Cell Distribution Width 16.5 % (12.1-15.1); White Blood Count 7.3 10^3/uL (4.0-10.0)
[2022-12-05 07:30] LABS: Anion Gap 15.9 (5-19); Blood Urea Nitrogen 10 mg/dL (6-20); Calcium 8.5 mg/dL (8.5-10.5); Carbon Dioxide 26 mmol/L (22-29); Chloride 99 mmol/L (98-107); Glomerular Filtration Rate 132.2 mL/min (90-130); Glucose 111 mg/dL (65-115); Osmolality Calculated 284 mOsm/kg (285-295); Potassium 3.9 mmol/L (3.5-5.1); Sodium 137 mmol/L (136-145)
[2022-12-05] MEDS: sertraline 50 mg Tablet PO (08:41)
[2022-12-05] MEDS: oxybutynin 5 mg Tablet PO ×3 (08:41→20:50)
[2022-12-05] MEDS: gabapentin 400 mg Capsule 1200 MG PO ×3 (08:41→20:49)
[2022-12-05] MEDS: guaiFENesin 600 mg Tablet 1200 MG PO ×2 (08:42→17:49)
[2022-12-05] MEDS: pantoprazole DR 40 mg Tablet PO (08:42)
[2022-12-05] MEDS: fluconazole 100 mg Tablet 200 MG PO (08:42)
[2022-12-05] MEDS: cyclobenzaprine 10 mg Tablet 5 MG PO ×2 (08:43→17:50)
[2022-12-05] MEDS: pregabalin 50 mg Capsule PO ×2 (08:44→17:48)
[2022-12-05] MEDS: sodium chloride 3.5% neb 4 mL Neb INHALATION ×2 (09:53→20:22)
[2022-12-05 10:55] LABS: Glucose Point of Care 168 mg/dL (70-110)
[2022-12-05 11:31] LABS: Glucose Point of Care 157 mg/dL (70-110)
[2022-12-05] MEDS: insulin lispro 100 unit/1 mL SUBCUT (12:43)
--- NOTE | 2022-12-05 13:15 | PC.NURSE ---
1200 [place] patients brother updated on patients condition and upcoming discharge date
--- NOTE | 2022-12-05 13:32 | PM.PN ---
Subjective Subjective: Patient much improved afebrile with pain under control. Ostomy producing. Tolerating regular diet Vitals/I&O/Wt Last Vital Signs Temp 98.1 F 12/05/22 11:38 Pulse 89 12/05/22 11:38 Resp 17 12/05/22 11:38 BP 116/79 12/05/22 11:38 Pulse Ox 98 12/05/22 11:38 O2 Del Method 12/05/22 09:55 O2 Flow Rate 2 12/03/22 20:00 FiO2 40 11/28/22 16:15 12/04/22 12/05/22 12/05/22 22:59 06:59 14:59 Intake Total 440 / 980 240 / 1220 650 / 650 Output Total 1500 / 2075 1450 / 3525 1000 / 1000 Balance -1060 / -1095 -1210 / -2305 -350 / -350 Weight last 48 hrs Weight 143 lb 11.2 oz Physical Exam Narrative: General: In distress, awake alert and oriented x3 Abdomen: Soft, nondistended, tender to palpation right abdomen no guarding rebound or masses Incisions intact without erythema or exudate Ostomy pink patent and producing Urinary Catheter Management: Suprapubic: Cath Placed During This Visit: yes Reason for Continuing Indwelling Catheter: Chronic Indwelling Urinary Catheter on Admission Urinary Catheter Date of Insertion: 12/03/22 Urinary Catheter Time of Insertion: 14:21 Data 12/05/22 06:50 12/05/22 06:50 A&P Assessment and plan (1) Bowel obstruction: (2) Colostomy in place: (3) Ischemic colon: Plan Status post exploratory laparotomy, lysis of adhesions for small bowel obstruction, right hemicolectomy for ischemia and colostomy revision Plan to repeat CT and hopefully discharge on Thursday if no abscess formation Regular diet Medical management per hospitalist-appreciate input Attestations Medical Necessity Statement*: Patient requires multiple more days in the hospital following exploratory laparotomy with fluid collection in abdomen Coding Level of Care Code Acute Code for Chg Fwd Diagnoses Bowel obstruction K56.[address] Z93.3 Ischemic colon K55.9
--- NOTE | 2022-12-05 14:14 | P.PN_ITS ---
Subjective Subjective: No acute events overnight. Patient laying comfortably in bed today. Denies any nausea, vomiting, headache. Tolerating diet well. Ostomy output improving. Abdominal pain still there but improving. Has remained afebrile in last 24 hours. Appreciate CBC and CMP results. Renal functions have remained stable. Hemoglobin has remained stable. Vitals/I&O/Wt Last Vital Signs Temp 98.1 F 12/05/22 11:38 Pulse 80 12/05/22 14:08 Resp 16 12/05/22 14:08 BP 116/79 12/05/22 11:38 Pulse Ox 99 12/05/22 14:08 O2 Del Method 12/05/22 14:08 O2 Flow Rate 2 12/03/22 20:00 FiO2 40 11/28/22 16:15 12/04/22 12/05/22 12/05/22 22:59 06:59 14:59 Intake Total 440 / 980 240 / 1220 650 / 650 Output Total 1500 / 2075 1450 / 3525 1000 / 1000 Balance -1060 / -1095 -1210 / -2305 -350 / -350 Weight last 48 hrs Weight 65.181 kg Physical Exam Narrative: General: No acute distress, awake and alert x3. HEENT: PERRLA, pupils bilaterally equal and reactive Chest: Normal vesicular breath sounds anteriorly, no added sounds, equal good air entry bilaterally CVS: S1-S2 regular, no murmurs, no tachycardia, no gallops, no rubs Abdomen: post operative, anterior abdomen surgical dressing in place, not opened for exam by me, multiple abdominal drains present, colostomy present Neuro: Moving all limbs, AOx3 Urinary Catheter Management: Suprapubic: Cath Placed During This Visit: yes Reason for Continuing Indwelling Catheter: Chronic Indwelling Urinary Catheter on Admission Urinary Catheter Date of Insertion: 12/03/22 Urinary Catheter Time of Insertion: 14:21 Data 12/05/22 06:50 12/05/22 06:50 A&P Assessment and plan (1) Fever: Fever curve improving. Has remained hemodynamically stable without leukocytosis. Blood cultures sent on 12/02 so far negative. Urinalysis benign. Respiratory viral panel negative. Suprapubic catheter changed on 12/03. CT abdomen pelvis done yesterday consistent with intra-abdominal collections. Continue with meropenem for now. Continue with oral fluconazole. (2) Intra-abdominal collection: Seen on CT scan done on 12/02. Discussed in detail with primary team. Primary team have discussed the images in detail with radiology as per them there are no concerns for large perforations for now. Collections are not amenable to IR drainage. Plan for now will be to continue IV antibiotics for around a week and repeat CAT scan for further evaluation of the intra-abdominal collection going forward. (3) Septic shock: Resolved. CT abdomen and pelvis findings appreciated Blood culture: NTD Urine culture: No growth Prior history of ESBL Proteus.M Vancomycin stopped on 12/01. Continue meropenem for now given overnight fevers. Also covered with antifungal fluconazole to finish a 7-day course. Maintain MAP greater than 65 Decubitus ulcer management as per recent wound care follow-up plan. (4) Bowel obstruction: s/p ex lap, right hemicolectomy, colostomy revision for large and small bowel obstruction, right colon ischemia Diet, postoperative care, colostomy and wound care management per primary team. As per patient and the nurse she is not having any output through the ostomy. Discussed in detail with primary surgeon. Advises to restart home bowel regimen along with lactulose every 6 hours. No suggestion of small bowel obstruction on CAT scan done on 12/02. (5) Sepsis: (6) Respiratory failure: Acute hypoxic respiratory failure with complete left lung collapse secondary to mucous plugging / pneumonia: CTA chest done on 11/27: Complete left lung atelectasis due to mucous plugging, small bilateral pleural effusion. S/p bronchoscopy: With clearing of mucous plugging. Post bronc chest x-ray has shown improvement in the left lung field aeration. Follow-up bron cultures. Continue on hypertonic saline, Mucomyst. Patient is not a good candidate for chest vest given abdominal surgery. Incentive spirometry and flutter valve as possible. Oxygen supplementation keeping saturation over 90%. Ipratropium, Xopenex every 6 hours, (7) Ischemic colon: (8) Metabolic acidosis: Resolved. (9) Anemia: Possibly postop blood loss S/p 1 unit PRBC transfusion: Currently stable around 9.5 Monitor H&H Transfuse to maintain hemoglobin greater than 7 (10) Hypomagnesemia: Monitor and replace serum magnesium (11) Hyperphosphatemia: Monitor serum phosphorus (12) Hypoalbuminemia: Will give her 1 dose of albumin (13) Hypocalcemia: Has received IV calcium. Monitor serum calcium for now (14) Pneumonia: As above. (15) Mucus plugging of bronchi: (16) Complete atelectasis of left lung: Plan B/L Hydroureteronephrosis.: Mild right greater than left hydroureteronephrosis. Urology has seen the patient in the past, and at that time they decided not for any intervention. Appreciated again on CAT scan done on 12/02. Analgesia: Restart home dose of oxycodone 5 every 6 hours as needed Glycemic control: Not needed Nutrition: Regular diet as per primary team CODE STATUS: Full code PUD prophylaxis: Protonix DVT prophylaxis: Heparin 5000 every 12 hourly. Plan for the day: Continue with current antibiotics with meropenem and fluconazole. Patient has remained afebrile in last [address] scan on Thursday. If no abscess formation can possibly discharge by Thursday. Case management has been alerted. Ostomy output is improving. Continue with aggressive bowel regimen. Suprapubic catheter replaced. Discharge planning: Discharge to [facility] once stable as per primary team. Transfer to [facility] floor. Care discussed in detail with patient's primary team, RN at bedside. All the questions were answered. This documentation was created by [employer] paper [employer] printer software. Every effort was made to ensure accuracy of paper products printer. Any obvious errors or omissions should be clarified with the author of the document. Attestations Medical Necessity Statement*: Requires further hospitalization for postoperative care for diverting colostomy in setting of ischemic colitis, intra-abdominal collection while abscess is ruled out and safe discharge planning is sought. and Moderate Time for a total of 35 minutes, includes reviewing past or interval history, examining/interviewing patient, placing orders, counseling patient/family/other support, updating patient/family/other support, discussing plan of care with staff, communicating with other healthcare providers, documenting encounter and coordinating care Diagnoses Fever R50.9 Intra-abdominal collection R18.8 Septic shock A41.9; R65.21 Bowel obstruction K56.609 Sepsis A41.9 Respiratory failure J96.90 Ischemic colon K55.9 Metabolic acidosis E87.20 Anemia D64.9 Hypomagnesemia E83.42 Hyperphosphatemia E83.39 Hypoalbuminemia E88.09 Hypocalcemia E83.51 Pneumonia J18.9 Mucus plugging of bronchi T17.500A Complete atelectasis of left lung J98.11
[2022-12-05 17:24] LABS: Glucose Point of Care 123 mg/dL (70-110)
[2022-12-05] MEDS: atorvastatin 40 mg Tablet 20 MG PO (20:46)
[2022-12-05 21:58] LABS: Glucose Point of Care 137 mg/dL (70-110)
[2022-12-06] VITALS (14 sets, daily range): BP systolic 103–116; BP diastolic 68–80; PULSE 79–100; RESP 16–18; TEMP 36.5–37.9; O2SAT 92–97
[2022-12-06] MEDS: ondansetron 2 mg/ML SDV 2 mL 4 MG IVP (01:36)
[2022-12-06] MEDS: oxyCODONE-APAP 5-325 mg Tablet 1 TAB PO ×2 (01:36→11:55)
[2022-12-06] MEDS: levalbuterol 0.63 mg/3 mL Neb INHALATION ×4 (02:11→20:32)
[2022-12-06] MEDS: ipratropium 0.5 mg/2.5 mL Neb INHALATION ×4 (02:11→20:32)
[2022-12-06] MEDS: metoclopramide 10 mg Tablet 5 MG PO (03:53)
[2022-12-06 05:15] LABS: Basophils % 0.4 %; Eosinophils % 0.3 %; Hematocrit 28.6 % (37.0-47.0); Hemoglobin 8.9 g/dL (11.5-15.3); Lymphocytes # 1.3 10^3/uL (0.8-4.8); Mean Corpuscular HGB Conc 31.1 g/dL (30.0-36.0); Mean Corpuscular Hemoglobin 27.9 pg (28.0-34.0); Mean Corpuscular Volume 89.7 fl (81-99); Mean Platelet Volume 10.7 fL (7.4-10.4); Monocytes # 0.8 10^3/uL (0.2-0.9); Monocytes % 9.9 %; Neutrophils # 5.55 10^3/uL (1.8-7.7); Neutrophils % 71.4 %; Nucleated Red Blood Cells % 0 %; Platelet Count 364 10^3/cmm (130-400); Red Blood Count 3.19 10^6/uL (4.1-5.3); Red Cell Distribution Width 16.2 % (12.1-15.1); White Blood Count 7.8 10^3/uL (4.0-10.0)
[2022-12-06 05:33] LABS: Anion Gap 16.1 (5-19); Blood Urea Nitrogen 11 mg/dL (6-20); Calcium 8.8 mg/dL (8.5-10.5); Carbon Dioxide 28 mmol/L (22-29); Chloride 98 mmol/L (98-107); Glomerular Filtration Rate 132.2 mL/min (90-130); Glucose 115 mg/dL (65-115); Osmolality Calculated 286 mOsm/kg (285-295); Phosphorus 2.7 mg/dL (2.5-4.5); Potassium 4.1 mmol/L (3.5-5.1); Sodium 138 mmol/L (136-145)
[2022-12-06] MEDS: meropenem 1,000 MG in sodium chloride 0.9% (plus) 50 ML 100 MG IV (05:37)
[2022-12-06] MEDS: lactulose oral liq 20 gm/30 mL UDC 10 GM PO ×3 (05:37→22:16)
[2022-12-06] MEDS: heparin 5,000 unit/mL INJ 1 mL 5000 UNIT SUBCUT ×3 (06:17→22:16)
[2022-12-06 06:29] LABS: Glucose Point of Care 139 mg/dL (70-110)
--- NOTE | 2022-12-06 09:23 | CTR_ITS ---
PROCEDURE INFORMATION: Exam: CT Abdomen And Pelvis With Contrast Exam date and time: 12/06/2022 10:26 AM Age: 47 years old Clinical indication: Abdominal pain; Generalized; Prior surgery; Additional info: Intrabdominal collection TECHNIQUE: Imaging protocol: Computed tomography of the abdomen and pelvis with contrast. Radiation optimization: All CT scans at this facility use at least one of these dose optimization techniques: automated exposure control; mA and/or kV adjustment per patient size (includes targeted exams where dose is matched to clinical indication); or iterative reconstruction. Contrast material: [id number]; Contrast volume: 100 ml; Contrast route: INTRAVENOUS (IV); Other protocol: This patient has received 19 known CTs and 0 known cardiac nuclear medicine studies in the 12 months prior to the current study. COMPARISON: CT abdomen pelvis wo con [id number] 12/03/2022 1:36 AM RADIATION DOSE METRICS: Total DLP (mGy-cm): 651.13 FINDINGS: Liver: Normal. No mass. Gallbladder and bile ducts: Normal. No calcified stones. No ductal dilation. Pancreas: Normal. No ductal dilation. Spleen: Normal. No splenomegaly. Adrenal glands: Normal. No mass. Kidneys and ureters: Moderate bilateral hydronephrosis. The right hydronephrosis has improved. Stomach and bowel: Postsurgical changes are present with a sigmoid colostomy in the left lower quadrant and Bry's pouch. Fluid and liquid stool are present in moderately dilated colon. There is fluid in multiple nondilated loops of small bowel. Appendix: No evidence of appendicitis. Intraperitoneal space: There is a lobulated and loculated fluid collection in the pelvis with peripheral enhancement. This measures approximally 9.2 x 9.1 x 5.0 cm an overall diameters. This has not significantly changed since previous examination allowing for differences in measurement technique. Infected fluid and abscess is not excluded. No free intraperitoneal air is seen. There are stable wispy fluid collections and patchy fatty infiltration in the right side of the abdomen which are unchanged and probably postsurgical in nature. Vasculature: Unremarkable. No abdominal aortic aneurysm. Lymph nodes: Unremarkable. No enlarged lymph nodes. Urinary bladder: A suprapubic catheter is present in the urinary bladder. There is air in the urinary bladder consistent with the catheterization. Reproductive: Unremarkable as visualized. Bones/joints: Unremarkable. No acute fracture. Soft tissues: Unremarkable. CT/CT abdomen pelvis w con* [id number] IMPRESSION: 1. Again noted is a lobulated and loculated fluid collection in the pelvis with peripheral enhancement that measures about 9.2 x 9.1 x 5.0 cm in overall diameters. An infected fluid collection is not excluded. 2. Postsurgical changes with a left lower quadrant sigmoid ostomy and Bry's pouch. 3. Postsurgical wispy fluid collections in the right side of the abdomen unchanged. 4. Multiple fluid-filled loops of bowel most likely secondary to a adynamic ileus.
--- NOTE | 2022-12-06 09:29 | PM.PN ---
Subjective Subjective: Patient much improved. Afebrile with pain under control. Ostomy producing. Tolerating regular diet Vitals/I&O/Wt Last Vital Signs Temp 98.5 F 12/06/22 08:00 Pulse 91 12/06/22 08:34 Resp 16 12/06/22 08:34 BP 109/70 12/06/22 08:00 Pulse Ox 92 12/06/22 08:34 O2 Del Method 12/06/22 08:34 O2 Flow Rate 2 12/03/22 20:00 FiO2 40 11/28/22 16:15 12/05/22 12/06/22 12/06/22 22:59 06:59 14:59 Intake Total 960 / 1660 340 / 2000 Balance 960 / 360 340 / 700 Physical Exam Narrative: General: In distress, awake alert and oriented x3 Abdomen: Soft, nondistended, tender to palpation right abdomen no guarding rebound or masses Incisions intact without erythema or exudate Ostomy pink patent and producing Urinary Catheter Management: Suprapubic: Cath Placed During This Visit: yes Reason for Continuing Indwelling Catheter: Chronic Indwelling Urinary Catheter on Admission Urinary Catheter Date of Insertion: 12/03/22 Urinary Catheter Time of Insertion: 14:21 Data 12/06/22 04:20 12/06/22 04:20 A&P Assessment and plan (1) Bowel obstruction: (2) Colostomy in place: (3) Ischemic colon: Plan Status post exploratory laparotomy, lysis of adhesions for small bowel obstruction, right hemicolectomy for ischemia and colostomy revision Plan to repeat CT tomorrow and hopefully discharge on Thursday if no abscess formation PICC line and DC central line Regular diet Medical management per hospitalist-appreciate input Attestations Medical Necessity Statement*: Patient requires multiple more days in the hospital following exploratory laparotomy with fluid collection in abdomen Coding Level of Care Code Acute Code for Chg Fwd Diagnoses Bowel obstruction K56.[address] Z93.3 Ischemic colon K55.9
[2022-12-06] MEDS: gabapentin 400 mg Capsule 1200 MG PO ×3 (09:52→21:47)
[2022-12-06] MEDS: pregabalin 50 mg Capsule PO ×2 (09:53→18:12)
[2022-12-06] MEDS: sertraline 50 mg Tablet PO (09:53)
[2022-12-06] MEDS: guaiFENesin 600 mg Tablet 1200 MG PO ×2 (09:53→18:12)
[2022-12-06] MEDS: fluconazole 100 mg Tablet 200 MG PO (09:53)
[2022-12-06] MEDS: pantoprazole DR 40 mg Tablet PO (09:53)
[2022-12-06] MEDS: oxybutynin 5 mg Tablet PO ×3 (09:54→21:49)
[2022-12-06] MEDS: fentaNYL 50 mcg Patch 1 PATCH TRANSDERMA (10:04)
[2022-12-06] MEDS: iohexol 350 mg/mL 500 mL Btl (per mL) IV (10:33)
[2022-12-06 11:35] LABS: Glucose Point of Care 156 mg/dL (70-110)
[2022-12-06] MEDS: cyclobenzaprine 10 mg Tablet 5 MG PO (11:56)
[2022-12-06] MEDS: insulin lispro 100 unit/1 mL SUBCUT (11:57)
--- NOTE | 2022-12-06 14:41 | P.PN_ITS ---
Subjective Subjective: No acute events overnight. Patient denies any nausea, vomiting, headache. States that the pain is slightly better. Has remained hemodynamically stable. Ostomy output around 825 yesterday. Patient has mostly remained afebrile with Tmax in last 24 hours of 100.3 Fahrenheit. Vitals/I&O/Wt Last Vital Signs Temp 97.9 F 12/06/22 12:00 Pulse 83 12/06/22 14:28 Resp 18 12/06/22 14:28 BP 103/68 12/06/22 12:00 Pulse Ox 96 12/06/22 14:28 O2 Del Method 12/06/22 14:28 O2 Flow Rate 2 12/03/22 20:00 FiO2 40 11/28/22 16:15 12/05/22 12/06/22 12/06/22 22:59 06:59 14:59 Intake Total 960 / 1660 340 / 2000 360 / 360 Balance 960 / 360 340 / 700 360 / 360 Physical Exam Narrative: General: No acute distress, awake and alert x3. HEENT: PERRLA, pupils bilaterally equal and reactive Chest: Normal vesicular breath sounds anteriorly, no added sounds, equal good air entry bilaterally CVS: S1-S2 regular, no murmurs, no tachycardia, no gallops, no rubs Abdomen: post operative, anterior abdomen surgical dressing in place, not opened for exam by me, multiple abdominal drains present, colostomy present Neuro: Moving all limbs, AOx3 Urinary Catheter Management: Suprapubic: Cath Placed During This Visit: yes Reason for Continuing Indwelling Catheter: Chronic Indwelling Urinary Catheter on Admission Urinary Catheter Date of Insertion: 12/03/22 Urinary Catheter Time of Insertion: 14:21 Data 12/06/22 04:20 12/06/22 04:20 A&P Assessment and plan (1) Fever: Fever curve improving. Has remained hemodynamically stable without leukocytosis. Blood cultures sent on 12/02 so far negative. Urinalysis benign. Respiratory viral panel negative. Suprapubic catheter changed on 12/03. CT abdomen pelvis done yesterday consistent with intra-abdominal collections. Continue with meropenem for now. Continue with oral fluconazole. (2) Intra-abdominal collection: Seen on CT scan done on 12/02. Discussed in detail with primary team. Primary team have discussed the images in detail with radiology as per them there are no concerns for large perforations for now. Collections are not amenable to IR drainage. Plan for now will be to continue IV antibiotics for around a week and repeat CAT scan for further evaluation of the intra-abdominal collection going forward. (3) Septic shock: Resolved. CT abdomen and pelvis findings appreciated Blood culture: NTD Urine culture: No growth Prior history of ESBL Proteus. Vancomycin stopped on 12/01. Continue meropenem for now given overnight fevers. Also covered with antifungal fluconazole to finish a 7-day course. Maintain MAP greater than 65 Decubitus ulcer management as per recent wound care follow-up plan. (4) Bowel obstruction: s/p ex lap, right hemicolectomy, colostomy revision for large and small bowel obstruction, right colon ischemia Diet, postoperative care, colostomy and wound care management per primary team. Ostomy output improving. Continue with bowel regimen. (5) Sepsis: (6) Respiratory failure: Acute hypoxic respiratory failure with complete left lung collapse secondary to mucous plugging / pneumonia: CTA chest done on 11/27: Complete left lung atelectasis due to mucous plugging, small bilateral pleural effusion. S/p bronchoscopy: With clearing of mucous plugging. Post bronc chest x-ray has shown improvement in the left lung field aeration. Follow-up bronc cultures. Continue on hypertonic saline, Mucomyst. Patient is not a good candidate for chest vest given abdominal surgery. Incentive spirometry and flutter valve as possible. Oxygen supplementation keeping saturation over 90%. Ipratropium, Xopenex every 6 hours, (7) Ischemic colon: (8) Metabolic acidosis: Resolved. (9) Anemia: Possibly postop blood loss S/p 1 unit PRBC transfusion: Currently stable around 9 Monitor H&H Transfuse to maintain hemoglobin greater than 7 (10) Hypomagnesemia: Monitor and replace serum magnesium (11) Hyperphosphatemia: Monitor serum phosphorus (12) Hypoalbuminemia: Chronic. (13) Hypocalcemia: Has resolved. Received IV calcium. Monitor serum calcium for now (14) Pneumonia: As above. (15) Mucus plugging of bronchi: (16) Complete atelectasis of left lung: Plan B/L Hydroureteronephrosis.: Mild right greater than left hydroureteronephrosis. Urology has seen the patient in the past, and at that time they decided not for any intervention. Appreciated again on CAT scan done on 12/02. Analgesia: Restart home dose of oxycodone 5 every 6 hours as needed Glycemic control: Not needed Nutrition: Regular diet as per primary team CODE STATUS: Full code PUD prophylaxis: Protonix DVT prophylaxis: Heparin 5000 every 12 hourly. Plan for the day: Continue with meropenem and fluconazole. Blood cultures so far negative. Check C. difficile. DC central line. We will plan for midline placement. Check CT abdomen with contrast for further characterization and evaluation of intra-abdominal collection. Most likely patient will be discharged on IV or ertapenem as per culture sensitivities from previous Proteus in September for a 14-day course with advised to repeat CT scan in 2 weeks for further evaluation of intra-abdominal collection. Continue with bowel regimen. Care discussed in detail with patient's primary team and RN at bedside. Discharge planning: Discharge to [facility] at [place] near [facility] once stable as per primary team. Transfer to [facility]. This documentation was created by [employer] retail property manager software. Every effort was made to ensure accuracy of retail property manager. Any obvious errors or omissions should be clarified with the author of the document. Attestations 2 Medical Necessity Statement*: Requires further hospitalization for management of intra-abdominal collection in patient with postoperative care for ischemic colitis requiring colostomy revision, chronic quadriplegia, occasional recurrent fevers while safe discharge planning is sought. and Moderate Time for a total of 35 minutes, includes reviewing past or interval history, examining/interviewing patient, placing orders, counseling patient/family/other support, updating patient/family/other support, discussing plan of care with staff, communicating with other healthcare providers, documenting encounter and coordinating care Diagnoses Fever R50.9 Intra-abdominal collection R18.8 Septic shock A41.9; R65.21 Bowel obstruction K56.609 Sepsis A41.9 Respiratory failure J96.90 Ischemic colon K55.9 Metabolic acidosis E87.20 Anemia D64.9 Hypomagnesemia E83.42 Hyperphosphatemia E83.39 Hypoalbuminemia E88.09 Hypocalcemia E83.51 Pneumonia J18.9 Mucus plugging of bronchi T17.500A Complete atelectasis of left lung J98.11
[2022-12-06] MEDS: meropenem 2,000 MG in sodium chloride 0.9% (100 ml) 100 ML 200 MG IV ×2 (15:33→22:15)
--- NOTE | 2022-12-06 16:06 | PC.NURSE ---
[facility] called and set up a ride to [place] on Thursday at [address] Ernst stated that he would like this ride canceled at this time because he would not be here to make the decision on discharge and it would be up to the on coming doctor so the ride would need to rescheduled. the number to do that would be .
[2022-12-06 17:18] LABS: Glucose Point of Care 126 mg/dL (70-110)
[2022-12-06] MEDS: atorvastatin 40 mg Tablet 20 MG PO (21:48)
[2022-12-06 21:57] LABS: Glucose Point of Care 127 mg/dL (70-110)
[2022-12-07] VITALS (15 sets, daily range): BP systolic 101–132; BP diastolic 68–93; PULSE 77–101; RESP 16–18; TEMP 36.6–37.6; O2SAT 93–98
[2022-12-07] MEDS: ipratropium 0.5 mg/2.5 mL Neb INHALATION ×4 (02:39→20:12)
[2022-12-07] MEDS: levalbuterol 0.63 mg/3 mL Neb INHALATION ×4 (02:41→20:12)
[2022-12-07 04:40] LABS: Basophils % 0.4 %; Eosinophils % 0.1 %; Hematocrit 28.8 % (37.0-47.0); Hemoglobin 8.8 g/dL (11.5-15.3); Lymphocytes # 1.1 10^3/uL (0.8-4.8); Mean Corpuscular HGB Conc 30.6 g/dL (30.0-36.0); Mean Corpuscular Hemoglobin 27.7 pg (28.0-34.0); Mean Corpuscular Volume 90.6 fl (81-99); Mean Platelet Volume 10.6 fL (7.4-10.4); Monocytes # 0.8 10^3/uL (0.2-0.9); Monocytes % 11.4 %; Neutrophils # 4.68 10^3/uL (1.8-7.7); Neutrophils % 70.1 %; Nucleated Red Blood Cells % 0 %; Platelet Count 330 10^3/cmm (130-400); Red Blood Count 3.18 10^6/uL (4.1-5.3); Red Cell Distribution Width 16.4 % (12.1-15.1); White Blood Count 6.7 10^3/uL (4.0-10.0)
[2022-12-07 06:12] LABS: Anion Gap 16.6 (5-19); Blood Urea Nitrogen 11 mg/dL (6-20); Carbon Dioxide 27 mmol/L (22-29); Chloride 99 mmol/L (98-107); Glomerular Filtration Rate 132.2 mL/min (90-130); Glucose 146 mg/dL (65-115); Magnesium 2.1 mg/dL (1.7-2.3); Osmolality Calculated 288 mOsm/kg (285-295); Phosphorus 2.4 mg/dL (2.5-4.5); Potassium 4.6 mmol/L (3.5-5.1); Sodium 138 mmol/L (136-145)
[2022-12-07] MEDS: meropenem 2,000 MG in sodium chloride 0.9% (100 ml) 100 ML 200 MG IV ×3 (06:18→21:18)
[2022-12-07] MEDS: lactulose oral liq 20 gm/30 mL UDC 10 GM PO ×4 (06:18→22:28)
[2022-12-07] MEDS: heparin 5,000 unit/mL INJ 1 mL 5000 UNIT SUBCUT ×3 (06:19→22:28)
[2022-12-07 07:17] LABS: Glucose Point of Care 139 mg/dL (70-110)
[2022-12-07] MEDS: sodium chloride 3.5% neb 4 mL Neb INHALATION ×2 (07:47→20:12)
--- NOTE | 2022-12-07 10:24 | PC.SOCIAL ---
IMM IMM updated, copy given to patient and copy added to chart.
[2022-12-07] MEDS: guaiFENesin 600 mg Tablet 1200 MG PO ×2 (10:45→19:02)
[2022-12-07] MEDS: oxybutynin 5 mg Tablet PO ×3 (10:46→21:17)
[2022-12-07] MEDS: fluconazole 100 mg Tablet 200 MG PO (10:46)
[2022-12-07] MEDS: sertraline 50 mg Tablet PO (10:46)
[2022-12-07] MEDS: pantoprazole DR 40 mg Tablet PO (10:47)
[2022-12-07] MEDS: pregabalin 50 mg Capsule PO ×2 (10:47→19:03)
[2022-12-07] MEDS: gabapentin 400 mg Capsule 1200 MG PO ×3 (10:47→21:16)
[2022-12-07 11:00] LABS: Glucose Point of Care 151 mg/dL (70-110)
[2022-12-07] MEDS: ondansetron 2 mg/ML SDV 2 mL 4 MG IVP (13:19)
--- NOTE | 2022-12-07 13:19 | PM.PN ---
Subjective Subjective: Patient much improved. Afebrile with pain under control. Ostomy producing. Tolerating regular diet. CT shows abdominal abscess Vitals/I&O/Wt Last Vital Signs Temp 97.8 F 12/07/22 08:00 Pulse 99 12/07/22 08:00 Resp 16 12/07/22 08:00 BP 123/81 12/07/22 08:00 Pulse Ox 94 12/07/22 08:00 O2 Del Method 12/07/22 07:48 O2 Flow Rate 2 12/03/22 20:00 FiO2 40 11/28/22 16:15 12/06/22 12/07/22 12/07/22 22:59 06:59 14:59 Intake Total 920 / 1280 240 / 1520 480 / 480 Output Total 1360 / 1360 600 / 1960 Balance -440 / -80 -360 / -440 480 / 480 Physical Exam Narrative: General: In distress, awake alert and oriented x3 Abdomen: Soft, nondistended, tender to palpation right abdomen no guarding rebound or masses Incisions intact without erythema or exudate Ostomy pink patent and producing Urinary Catheter Management: Suprapubic: Cath Placed During This Visit: yes Reason for Continuing Indwelling Catheter: Chronic Indwelling Urinary Catheter on Admission Urinary Catheter Date of Insertion: 12/03/22 Urinary Catheter Time of Insertion: 14:21 Data 12/07/22 04:10 12/07/22 05:49 Micro: Microbiology 12/02/22 08:57 Blood Culture - Final Blood NO GROWTH AFTER 5 DAYS 12/02/22 08:55 Blood Culture - Final Blood NO GROWTH AFTER 5 DAYS A&P Assessment and plan (1) Bowel obstruction: (2) Colostomy in place: (3) Ischemic colon: Plan Status post exploratory laparotomy, lysis of adhesions for small bowel obstruction, right hemicolectomy for ischemia and colostomy revision Will request abscess drainage by IR tomorrow Regular diet Medical management per hospitalist-appreciate input Attestations Medical Necessity Statement*: Requires further hospitalization for management of intra-abdominal collection in patient with postoperative care for ischemic colitis requiring colostomy revision, chronic quadriplegia, occasional recurrent fevers while safe discharge planning is sought. Coding Level of Care Code Acute Code for [facility] Diagnoses Bowel obstruction K56.[address] Z93.3 Ischemic colon K55.9
[2022-12-07] MEDS: oxyCODONE-APAP 5-325 mg Tablet 1 TAB PO ×2 (13:23→21:15)
--- NOTE | 2022-12-07 13:30 | PC.SOCIAL ---
IMM IMM updated copy given to patient. patient voiced understanding
--- NOTE | 2022-12-07 14:48 | P.PN_ITS ---
Subjective Subjective: No acute events overnight. Patient has remained hemodynamically stable and afebrile in last 24 hours. Continues to remain on room air. Ostomy output of around 410 cc yesterday. Resting comfortably in bed on examination today. Vitals/I&O/Wt Last Vital Signs Temp 97.8 F 12/07/22 08:00 Pulse 88 12/07/22 13:39 Resp 18 12/07/22 13:34 BP 123/81 12/07/22 08:00 Pulse Ox 98 12/07/22 13:34 O2 Del Method 12/07/22 13:34 O2 Flow Rate 2 12/03/22 20:00 FiO2 40 11/28/22 16:15 12/06/22 12/07/22 12/07/22 22:59 06:59 14:59 Intake Total 920 / 1280 340 / 1620 480 / 480 Output Total 1360 / 1360 600 / 1960 Balance -440 / -80 -260 / -340 480 / 480 Physical Exam Narrative: General: No acute distress, awake and alert x3. HEENT: PERRLA, pupils bilaterally equal and reactive Chest: Normal vesicular breath sounds anteriorly, no added sounds, equal good air entry bilaterally CVS: S1-S2 regular, no murmurs, no tachycardia, no gallops, no rubs Abdomen: post operative, anterior abdomen surgical dressing in place, not opened for exam by me, multiple abdominal drains present, colostomy present Neuro: Moving all limbs, AOx3 Urinary Catheter Management: Suprapubic: Cath Placed During This Visit: yes Reason for Continuing Indwelling Catheter: Chronic Indwelling Urinary Catheter on Admission Urinary Catheter Date of Insertion: 12/03/22 Urinary Catheter Time of Insertion: 14:21 Data 12/07/22 04:10 12/07/22 05:49 Micro: Microbiology 12/06/22 13:45 Catheter Tip Culture - Preliminary Central Line 12/02/22 08:57 Blood Culture - Final Blood NO GROWTH AFTER 5 DAYS 12/02/22 08:55 Blood Culture - Final Blood NO GROWTH AFTER 5 DAYS A&P Assessment and plan (1) Fever: Fever curve improving. Has remained hemodynamically stable without leukocytosis. Blood cultures sent on 12/02 so far negative. Urinalysis benign. Respiratory viral panel negative. Suprapubic catheter changed on 12/03. Central line removed on 12/06. Placed on 12/06. CT abdomen pelvis done most recently on 12/06 [facility] with intra-abdominal collections. Appreciate results. Most likely will need IR drainage. We will try to consult with radiology in a.m. tomorrow to see if amenable. Continue with meropenem for now. Continue with oral fluconazole. (2) Intra-abdominal collection: Seen on repeat CT scan on 12/06 with size of around 9.2 x 9.1 x 5 in overall diameters with peripheral enhancement. Cannot rule out abscess. Discussed in detail with primary team. Primary team will discuss with radiology in a.m. to see if can be drained through IR. (3) Septic shock: Resolved. CT abdomen and pelvis findings appreciated Blood culture: NTD Urine culture: No growth Prior history of ESBL Proteus. Vancomycin stopped on 12/01. Continue meropenem for now given overnight fevers. Also covered with antifungal fluconazole to finish a 7-day course. Maintain MAP greater than 65 Decubitus ulcer management as per recent wound care follow-up plan. (4) Bowel obstruction: s/p ex lap, right hemicolectomy, colostomy revision for large and small bowel obstruction, right colon ischemia Diet, postoperative care, colostomy and wound care management per primary team. Ostomy output improving. Continue with bowel regimen. (5) Sepsis: (6) Respiratory failure: Acute hypoxic respiratory failure with complete left lung collapse secondary to mucous plugging / pneumonia: CTA chest done on 11/27: Complete left lung atelectasis due to mucous plugging, small bilateral pleural effusion. S/p bronchoscopy: With clearing of mucous plugging. Post bronc chest x-ray has shown improvement in the left lung field aeration. Follow-up [facility] cultures. Continue on hypertonic saline, Mucomyst. Patient is not a good candidate for chest vest given abdominal surgery. Incentive spirometry and flutter valve as possible. Oxygen supplementation keeping saturation over 90%. Ipratropium, Xopenex every 6 hours, (7) Ischemic colon: (8) Metabolic acidosis: Resolved. (9) Anemia: Possibly postop blood loss S/p 1 unit PRBC transfusion: Currently stable around 9 Monitor H&H Transfuse to maintain hemoglobin greater than 7 (10) Hypomagnesemia: Monitor and replace serum magnesium (11) Hyperphosphatemia: Monitor serum phosphorus (12) Hypoalbuminemia: Chronic. (13) Hypocalcemia: Has resolved. Received IV calcium. Monitor serum calcium for now (14) Pneumonia: As above. (15) Mucus plugging of bronchi: (16) Complete atelectasis of left lung: Plan B/L Hydroureteronephrosis.: Mild right greater than left hydroureteronephrosis. Urology has seen the patient in the past, and at that time they decided not for any intervention. Appreciated again on CAT scan done on 12/02. Analgesia: Restart home dose of oxycodone 5 every 6 hours as needed Glycemic control: Not needed Nutrition: Regular diet as per primary team CODE STATUS: Full code PUD prophylaxis: Protonix DVT prophylaxis: Heparin 5000 every 12 hourly. Plan for the day: Midline placed yesterday. Central line removed yesterday. Appreciate CT abdomen pelvis results. Will discuss with radiology in detail tomorrow once they are available to see if intra-abdominal collections are amenable to IR drainage. If able to would like to send for cultures. Till then continue with IV meropenem. Continue with bowel regimen. Care discussed in detail with patient's primary team and RN at bedside. Discharge planning: Discharge to [facility] at [facility] once stable as per primary team. Transfer to [facility]. This documentation was created by [employer] straw hat brim cutter operator software. Every effort was made to ensure accuracy of straw hat brim cutter operator. Any obvious errors or omissions should be clarified with the author of the document. Attestations Medical Necessity Statement*: Requires further hospitalization for management of intra-abdominal collections/possible abscess in a patient who is postoperative for ischemic colitis with revision of colostomy and Moderate Time for a total of 35 minutes, includes reviewing past or interval history, examining/interviewing patient, placing orders, updating patient/family/other support, discussing plan of care with staff, communicating with other healthcare providers, documenting encounter and coordinating care Diagnoses Fever R50.9 Intra-abdominal collection R18.8 Septic shock A41.9; R65.21 Bowel obstruction K56.609 Sepsis A41.9 Respiratory failure J96.90 Ischemic colon K55.9 Metabolic acidosis E87.20 Anemia D64.9 Hypomagnesemia E83.42 Hyperphosphatemia E83.39 Hypoalbuminemia E88.09 Hypocalcemia E83.51 Pneumonia J18.9 Mucus plugging of bronchi T17.500A Complete atelectasis of left lung J98.11
[2022-12-07] MEDS: acetaminophen 325 mg Tablet 650 MG PO (16:52)
[2022-12-07] MEDS: cyclobenzaprine 10 mg Tablet 5 MG PO (17:00)
[2022-12-07 17:14] LABS: Glucose Point of Care 133 mg/dL (70-110)
[2022-12-07] MEDS: atorvastatin 40 mg Tablet 20 MG PO (21:16)
[2022-12-07 21:43] LABS: Glucose Point of Care 136 mg/dL (70-110)
[2022-12-08] VITALS (16 sets, daily range): BP systolic 93–112; BP diastolic 67–79; PULSE 79–89; RESP 14–20; TEMP 36.3–37.2; O2SAT 95–100
[2022-12-08] MEDS: levalbuterol 0.63 mg/3 mL Neb INHALATION ×4 (01:57→22:10)
[2022-12-08] MEDS: ipratropium 0.5 mg/2.5 mL Neb INHALATION ×4 (01:57→22:10)
[2022-12-08] MEDS: meropenem 2,000 MG in sodium chloride 0.9% (100 ml) 100 ML 200 MG IV ×3 (06:14→22:46)
[2022-12-08] MEDS: lactulose oral liq 20 gm/30 mL UDC 10 GM PO ×4 (06:14→22:47)
[2022-12-08] MEDS: heparin 5,000 unit/mL INJ 1 mL 5000 UNIT SUBCUT ×3 (06:15→22:47)
[2022-12-08 06:47] LABS: Glucose Point of Care 113 mg/dL (70-110)
[2022-12-08] MEDS: gabapentin 400 mg Capsule 1200 MG PO ×3 (08:07→20:58)
[2022-12-08] MEDS: sertraline 50 mg Tablet PO (08:07)
[2022-12-08] MEDS: guaiFENesin 600 mg Tablet 1200 MG PO ×2 (08:07→17:33)
[2022-12-08] MEDS: oxybutynin 5 mg Tablet PO ×3 (08:07→20:59)
[2022-12-08] MEDS: pregabalin 50 mg Capsule PO ×2 (08:07→17:33)
[2022-12-08] MEDS: fluconazole 100 mg Tablet 200 MG PO (08:07)
[2022-12-08] MEDS: pantoprazole DR 40 mg Tablet PO (08:07)
[2022-12-08] MEDS: sodium chloride 3.5% neb 4 mL Neb INHALATION ×2 (09:30→22:10)
[2022-12-08] MEDS: ondansetron 2 mg/ML SDV 2 mL 4 MG IVP (10:23)
[2022-12-08] MEDS: oxyCODONE-APAP 5-325 mg Tablet 1 TAB PO ×2 (10:41→18:16)
[2022-12-08 11:12] LABS: Glucose Point of Care 155 mg/dL (70-110)
--- NOTE | 2022-12-08 12:09 | P.PN_ITS ---
Subjective Subjective: Seen this morning. Discussed with patient regarding her intra- abdominal abscess. Discussed with general surgery and radiology. It seems that radiology may not be able to reach that abscess with ultrasound guidance. Discussed earlier with ID physician in a.m. as well. Updated patient with all the information. She was afebrile overnight. Vitals/I&O/Wt Last Vital Signs Temp 97.9 F 12/08/22 08:05 Pulse 87 12/08/22 09:46 Resp 20 H 12/08/22 10:41 BP 93/68 12/08/22 08:05 Pulse Ox 98 12/08/22 09:31 O2 Del Method 12/08/22 09:31 O2 Flow Rate 2 12/03/22 20:00 FiO2 40 11/28/22 16:15 12/07/22 12/08/22 12/08/22 22:59 06:59 14:59 Intake Total 1220 / 2060 120 / 2180 340 / 340 Output Total 2250 / 2250 550 / 2800 Balance -1030 / -190 -430 / -620 340 / 340 Physical Exam Narrative: General: No acute distress, awake and alert x3. HEENT: EOMI. Chest: Normal vesicular breath sounds anteriorly, no added sounds, equal good air entry bilaterally CVS: S1-S2 regular, no murmurs, no tachycardia, no gallops, no rubs Abdomen: post operative, anterior abdomen surgical dressing in place, not opened for exam by me, multiple abdominal drains present, colostomy present. Mildly tender to palpation all throughout but soft. Neuro: AOx3. Quadriplegic patient. Urinary Catheter Management: Suprapubic: Cath Placed During This Visit: yes Reason for Continuing Indwelling Catheter: Chronic Indwelling Urinary Catheter on Admission Urinary Catheter Date of Insertion: 12/03/22 Urinary Catheter Time of Insertion: 14:21 Data 12/07/22 04:10 12/07/22 05:49 Micro: Microbiology 12/06/22 13:45 Catheter Tip Culture - Final Central Line 12/02/22 08:57 Blood Culture - Final Blood NO GROWTH AFTER 5 DAYS 12/02/22 08:55 Blood Culture - Final Blood NO GROWTH AFTER 5 DAYS A&P Assessment and plan (1) Intra-abdominal collection: (2) Fever: (3) Anemia: (4) Colostomy in place: (5) Quadriplegia: (6) Therapeutic opioid induced constipation: (7) Anxiety and depression: Plan Rosanne Morales is a 47 year old female with past medical history of quadriplegia suprapubic catheter neurogenic bladder, Erecurrent ESBL UTIs, opioid induced chronic constipation,?recently admitted here between 11/13-11/18 for constipation and obstipation, colinic dilatation s/p diverting colostomy to improve quality of life. Her postoperative stay was uneventful. She returned to ER today with abdominal pain and nausea. CT abdomen concerning for colonic obstruction possible appendicitis, small bowel obstruction and fluid collection in the left anterior abdomen near the colostomy. She was taken to the Er for Exploratory laparotomy with right hemicolectomy and colostomy revision. Inoperative findings included ischemic changes of the right colon pending perforation for which right hemicolectomy was needed. Appendix did not look inflammed. Patient was brought to ICU post operatively and remained intubated. She was on phenylephrine. EBL 300 cc. Her osotomy has fecal output post operatively. Internal medicine was consulted for postop vent management as well as possible sepsis. She was extubated on postop day 3. FiO2 requirements increased and her chest x-ray showed left lung opacities with possible mucous plugging. CTA on 11/2022 through showed complete atelectasis of left upper and left lower bases due to obstruction of proximal left main bronchus which is probably due to mucous plug that there are small bilateral effusions. Bronchoscopy was performed on y 2022 for therapeutic aspiration of tracheobronchial tree. Patient started to have fevers and CT abdomen pelvis on 12/06 showed intra-abdominal collections. Patient was on meropenem 1 g 3 times daily along with oral fluconazole. Peripheral enhancement seen on CT scan 9 cm x 9 cm x 5 cm. Abscess cannot be ruled out completely. Initial septic shock is resolved. Blood culture negative to date, urine culture no growth. Prior history of ESBL Proteus. #Constipation obstipation elective colostomy done November 15 #Status post exploratory laparotomy right hemicolectomy colostomy revision 11/22/22, ischemic bowel #Fever #Septic shock?resolved #Intra-abdominal fluid collection, abscess cannot be ruled out #Metabolic acidosis?resolved #Postop blood loss anemia?stable resolved #Respiratory failure secondary to left lung collapse due to mucous plugging?status post bronchoscopy/resolved. #Bilateral hydroureteronephrosis -Patient has been afebrile overnight. Infectious disease consulted. Discussed with radiology today in detail at length. Patient's fluid collection is above the cervix closer to cul-de-sac and it is very difficult to reach as there is small bowel around the area. It can possibly be reached to the buttock however leaving a drain via that route is not optimal. Patient also has a stage IV decubitus sacral ulcer. A possible way is to go through vaginal wall however unsure if that can be done. There is quite a bit of bowel all around the area. In conclusion this fluid collection is almost impossible to reach. ? Patient has been afebrile in last 24 hours. If she remains afebrile in next 24 hours she may be [facility] ertapenem 1 g daily hoping that it is sensitive. Patient will need repeat CT in 2 weeks to relook at that collection. If increasing in size or if patient continues to have fevers during this time and patient will need to be transferred or taken to a tertiary care hospital. ? Also discussed with radiology that we can potentially do another CAT scan in a.m. with contrast. If fluid collection is larger he may be able to aspirate via buttock approach and attempt to drain it however would not double to leave a drain in place. This is just a possibility but unsure if it can actually be done. -We will order CT scan abdomen pelvis with contrast in a.m. to evaluate. ? Continue meropenem 2 g 3 times daily for now, continue fluconazole to complete 7-day course. ? Continue on hypertonic saline, Mucomyst. Incentive spirometry and flutter valve. ?Mild right greater than left hydroureteronephrosis. Urology has seen the patient in the past, and at that time they decided not for any intervention. Appreciated again on CAT scan done on 12/02. -I discussed the above with the patient will be calling her brother to update as well with the situation. Analgesia: Continue home dose of oxycodone 5 every 6 hours as needed Glycemic control: Not needed Nutrition: Regular diet as per primary team CODE STATUS: Full code PUD prophylaxis: Protonix DVT prophylaxis: Heparin 5000 every 12 hourly. Discharge planning: Discharge to [facility] at [place] near [facility] once stable as per primary team. Attestations Medical Necessity Statement*: Requires further hospitalization for management of intra-abdominal collections/possible abscess in a patient who is postoperative for ischemic colitis with revision of colostomy and Moderate Time for a total of 45 minutes, includes reviewing past or interval history, examining/interviewing patient, placing orders, counseling patient/family/other support, updating patient/family/other support, discussing plan of care with staff, communicating with other healthcare providers, docume nting encounter and coordinating care Other Coding Information Focused coding review requested Diagnoses Intra-abdominal collection R18.8 Fever R50.9 Anemia D64.[address] Z93.3 Quadriplegia G82.50 Therapeutic opioid induced constipation K59.03; T40.2X5A Anxiety and depression F41.9; F32.A
[2022-12-08] MEDS: insulin lispro 100 unit/1 mL SUBCUT (12:10)
--- NOTE | 2022-12-08 13:14 | PM.PN ---
Subjective Subjective: Patient much improved. Afebrile with pain under control. Ostomy producing. Tolerating regular diet. Interventional radiology reports that they cannot access her abscess Vitals/I&O/Wt Last Vital Signs Temp 98.3 F 12/08/22 12:00 Pulse 89 12/08/22 12:00 Resp 18 12/08/22 12:00 BP 112/75 12/08/22 12:00 Pulse Ox 96 12/08/22 12:00 O2 Del Method 12/08/22 12:00 O2 Flow Rate 2 12/03/22 20:00 FiO2 40 11/28/22 16:15 12/07/22 12/08/22 12/08/22 22:59 06:59 14:59 Intake Total 1220 / 2060 120 / 2180 580 / 580 Output Total 2250 / 2250 550 / 2800 Balance -1030 / -190 -430 / -620 580 / 580 Physical Exam Narrative: General: In distress, awake alert and oriented x3 Abdomen: Soft, nondistended, tender to palpation right abdomen no guarding rebound or masses Incisions intact without erythema or exudate Ostomy pink patent and producing Urinary Catheter Management: Suprapubic: Cath Placed During This Visit: yes Reason for Continuing Indwelling Catheter: Chronic Indwelling Urinary Catheter on Admission Urinary Catheter Date of Insertion: 12/03/22 Urinary Catheter Time of Insertion: 14:21 Data 12/07/22 04:10 12/07/22 05:49 Micro: Microbiology 12/06/22 13:45 Catheter Tip Culture - Final Central Line 12/02/22 08:57 Blood Culture - Final Blood NO GROWTH AFTER 5 DAYS 12/02/22 08:55 Blood Culture - Final Blood NO GROWTH AFTER 5 DAYS A&P Assessment and plan (1) Bowel obstruction: (2) Colostomy in place: (3) Ischemic colon: Plan Status post exploratory laparotomy, lysis of adhesions for small bowel obstruction, right hemicolectomy for ischemia and colostomy revision Regular diet Medical management per hospitalist-appreciate input Plan for discharge tomorrow with 1 g ertapenem daily followed by repeat CT in 2 weeks Attestations Medical Necessity Statement*: Requires further hospitalization for management of intra-abdominal collections/possible abscess in a patient who is postoperative for ischemic colitis with right hemicolectomy and revision of colostomy Coding Level of Care Code Acute Code for Chg Fwd Diagnoses Bowel obstruction K56.[address] Z93.3 Ischemic colon K55.9
--- NOTE | 2022-12-08 16:34 | P.CONIM_ITS ---
Providers/Reason For Consult Consulting Physician/Specialty*: Debo Yen MD / iNFECTIOUS DISEASE Reason for Consult*: Intabdominal abscess Requesting Physician: Andrew Lo DO Attending Physician: Andrew Lo DO Primary Care Provider: Shakira Cruz MD History of Present Illness History of Present Illness Rosanne Morales is a 47 year old female with a ?past medical history of quadriplegia suprapubic catheter neurogenic bladder, recurrent ESBL UTIs, opioid induced chronic constipation,?recently admitted here between 11/13-11/18 for constipation and obstipation, colonic dilatation s/p diverting colostomy to improve quality of life. Her postoperative stay was uneventful. She returned to ER on 11/22 with abdominal pain and nausea. CT abdomen concerning for colonic obstruction possible appendicitis, small bowel obstruction and fluid collection in the left anterior abdomen near the colostomy. She was taken to the OR for Exploratory laparotomy with right hemicolectomy and colostomy revision. Inoperative findings included ischemic changes of the right colon pending perforation for which right hemicolectomy was needed. Appendix did not look inflammed. Patient was brought to ICU post operatively and remained intubated until 3 days post op.SHe required pressors initially but was able to be weaned off within 24 hrs. Post op course has been notable for left lung opacities and mucous plugging for which she underwent bronchoscopy for therapeutic aspiration of mucous plugging on 11/28. Respiratory cx negative. Respiratpry status has been stable since then. On 12/02 patient started spiking fever to 101F. CT of the abdomen and pelvis performed on this day showed several foci of free air within the abdomen, fluid collection in the central pelvis extending towards the mesenteric root. Collection measured 8.4 x 6.3 cm in size, increased in size compared to CAT scan upon admission. There was also noted to be pericolonic and omental stranding surrounding the ascending colon and transverse colon. On the CT obtained on December 06, 2022 this collection was again noted to be about 9 x 9 x 5 cm in overall diameters. Infected collection not excluded. Patient has had intermittent low-grade fevers during this timeframe with Tmax of 101.7. Leukocytosis has resolved since admission. No consolidation seen on most recent chest x-ray. Patient's right IJ central line placed upon admission was removed on December 06, 2022 after discussion with hospitalist. She has a chronic suprapubic catheter. Review of Systems General: Reports: 10 or more systems reviewed and unremarkable except in HPI and below Const: Denies: fever(s), chills or body aches Eyes: Denies: change in vision, blurry vision or photophobia ENMT: Reports: hoarseness; Denies: throat pain, enlarged tonsils, odynophagia or nasal congestion Card: Denies: chest pain, palpitations, irregular heart rhythm, edema, swelling of feet/ankles, lightheadedness, pre-syncope, dyspnea on exertion or orthopnea Resp: Denies: dyspnea, productive cough, non-productive cough, wheezing, stridor, pain on inspiration, change in phlegm color, hemoptysis or chest congestion GI: Denies: abdominal pain, nausea, vomiting, hematemesis, coffee ground emesis, dysphagia, heartburn, diarrhea, constipation, GI cramping, change in stool character, hematochezia or melena : Denies: flank pain, difficulty voiding, dysuria, urinary frequency, urinary urgency, urinary hesitancy or hematuria Musc: Denies: neck pain, back pain, extremity pain, joint swelling, joint warmth or deformity Neuro: Denies: headache(s), numbness in extremities, weakness in extremities, sensory changes, difficulty walking, frequent falls, dizziness, vertigo, behavioral changes, Slurred speech present or seizure-like activity Psych: Denies: anxiety, depression, suicidal ideation or homicidal ideation Endo: Denies: polyuria, polydipsia, tired all the time, cold intolerance or hot flashes Raul/Lymph: Denies: easy bruising or easy bleeding Medications/Allergies Home Medications Medication Instructions Recorded Confirmed Last Taken Type ascorbic acid (vitamin C) 1,000 mg 1,000 mg PO BID@,04/22/20 11/22/22 11/22/22 History tablet (Vitamin C) pantoprazole 40 mg tablet,delayed 40 mg PO DAILY 04/22/20 11/22/22 11/22/22 History release sennosides 8.6 mg-docusate sodium 2 tab PO BID@,05/28/20 11/22/22 11/22/22 History 50 mg tablet (Senna Plus) alprazolam 0.25 mg tablet (Xanax) 0.25 mg PO TID PRN Anxiety #10 tabs 11/22/20 11/22/22 11/20/22 Rx fentanyl 50 mcg/hr transdermal 1 patch transdermal Q72H #5 ea 11/22/20 11/22/22 11/20/22 Rx patch morphine concentrate 100 mg/5 mL 5 mg (0.25 mL) PO Q4H PRN Pain #30 11/22/20 11/22/22 11/11/22 Rx (20 mg/mL) oral solution mL acetaminophen 500 mg tablet 500 mg PO Q6H PRN Pain 08/17/21 11/22/22 11/20/22 History naloxone 0.4 mg/mL injection 0.4 mg IM Q2M PRN overdose 08/17/21 11/22/22 Unknown History solution pravastatin 40 mg tablet 40 mg PO BEDTIME 08/17/21 11/22/22 11/21/22 History simethicone 80 mg chewable tablet 80 mg PO TIDWM 08/17/21 11/22/22 11/22/22 History methylnaltrexone 12 mg/0.6 mL 0.6 ml SUBCUT Q3D PRN Constipation 01/24/22 11/22/22 11/11/22 History subcutaneous syringe (Relistor) ondansetron HCl 4 mg tablet 4 mg PO Q6H PRN Nausea 01/24/22 11/22/22 11/07/22 History docusate sodium 100 mg capsule 100 mg PO BID 02/11/22 11/22/22 11/22/22 History (Colace) gabapentin 600 mg tablet 1,200 mg PO TID 02/11/22 11/22/22 11/22/22 History calcium carbonate 400 mg calcium 400 mg PO DAILY PRN Heartburn 03/06/22 11/22/22 06/03/22 History (1,000 mg) chewable tablet (Tums Ultra) insulin lispro 100 unit/mL See Rx Instructions .Route .COMPLEX 03/06/22 11/22/22 11/13/22 History subcutaneous pen (Humalog KwikPen (U-100) Insulin) pregabalin 50 mg capsule (Lyrica) 50 mg PO BID 03/06/22 11/22/22 11/22/22 History potassium chloride 20 mEq 20 meq PO DAILY 03/28/22 11/22/22 11/22/22 History tablet,extended release lidocaine 5 % topical patch 1 patch topical Q12H 05/12/22 11/22/22 11/22/22 H istory metformin 1,000 mg tablet 1,000 mg PO BID 05/12/22 11/22/22 11/22/22 History sertraline 50 mg tablet 50 mg PO DAILY 05/12/22 11/22/22 11/21/22 History linaclotide 145 mcg capsule 145 mcg PO DAILY 07/31/22 11/22/22 11/22/22 History (Linzess) cyclobenzaprine 5 mg tablet 5 mg PO TID PRN Muscle Pain 10/21/22 11/22/22 11/11/22 History diclofenac sodium 1 % topical gel 2 g topical BID PRN Pain 10/21/22 11/22/22 11/12/22 History lidocaine 4 % topical cream 1 applic topical BID PRN Pain 10/21/22 11/22/22 Unknown History methenamine hippurate 1 gram tablet 1 g PO BID 10/21/22 11/22/22 11/22/22 History oxybutynin chloride 5 mg tablet 5 mg PO TID 10/21/22 11/22/22 11/22/22 History sitagliptin phosphate 25 mg tablet 25 mg PO DAILY 10/21/22 11/22/22 11/22/22 History (Januvia) sitagliptin phosphate 50 mg tablet 50 mg PO DAILY 10/21/22 11/22/22 11/22/22 History (Januvia) fosfomycin tromethamine 3 gram 3 g PO Q3D 30 days #10 ea 10/26/22 11/22/22 11/20/22 Rx oral packet bisacodyl 10 mg rectal suppository 10 mg ID DAILY PRN Constipation 11/11/22 0 11/22/22 11/10/22 History ketoconazole 2 % topical cream 1 applic topical BID 11/13/22 11/22/22 11/13/22 History magnesium hydroxide 400 mg/5 mL 5 ml PO TID PRN constipation #355 11/18/22 11/22/22 Unknown Rx oral suspension (Milk of Magnesia) mL metoclopramide HCl 5 mg tablet 5 mg PO DAILY PRN nausea and 11/18/22 11/22/22 11/20/22 Rx (Reglan) vomiting #14 tabs polyethylene glycol 3350 17 gram 17 g PO DAILY #30 ea 11/18/22 11/22/22 11/22/22 Rx oral powder packet hydroxyzine HCl 25 mg tablet 50 mg PO Q6H PRN Anxiety 11/22/22 11/22/22 Unknown History oxycodone-acetaminophen 5 mg-325 1 - 2 tab PO Q6H PRN Pain 11/22/22 11/22/22 Unknown History mg tablet Allergies Allergy/AdvReac Type Severity Reaction Status Date / Time No Known Allergies Allergy Verified 11/20/22 17:34 Current Medications Generic Name Dose Route Start Last Admin Trade Name Freq PRN Reason Stop Dose Admin Acetaminophen 650 mg 11/27/22 03:05 12/07/22 16:52 Acetaminophen 325 Mg Tablet PO 650 mg Q6H PRN Administration MILD PAIN Atorvastatin Calcium 20 mg 12/01/22 21:00 12/07/22 21:16 Atorvastatin 40 Mg Tablet PO 20 mg BEDTIME ELISEO Administration Cyclobenzaprine HCl 5 mg 12/01/22 10:00 12/07/22 17:00 Cyclobenzaprine 10 Mg Tablet PO 5 mg TID PRN Administration Muscle Pain Gabapentin 1,200 mg 11/27/22 09:00 12/08/22 14:48 Gabapentin 400 Mg Capsule PO 1,200 mg TID ELISEO Administration Guaifenesin 1,200 mg 11/27/22 18:00 12/08/22 08:07 Guaifenesin 600 Mg Tablet PO 1,200 mg BID ELISEO Administration Heparin Sodium (Porcine) 5,000 unit 11/28/22 07:15 12/08/22 14:48 Heparin 5,000 Unit/Ml Inj 1 Ml SUBCUT 5,000 unit Q8H ELISEO Administration Meropenem 2,000 mg/ Sodium 100 mls @ 200 mls/hr 12/06/22 14:00 12/08/22 14:46 Chloride IV Infused Q8H ELISEO Infusion Insulin Human Lispro 0 unit 12/01/22 12:00 12/08/22 12:10 Insulin Lispro 100 Unit/1 Ml SUBCUT 2 unit WM&BEDTIME ELISEO Administration Protocol Ipratropium [place] 0.5 mg 12/01/22 14:00 12/08/22 13:19 Ipratropium 0.5 Mg/2.5 Ml Neb INHALATION 0.5 mg Q6H.RESP ELISEO Administration Lactulose 10 gm 12/03/22 11:00 12/08/22 16:22 Lactulose Oral Liq 20 Gm/30 Ml Udc PO 10 gm Q6H ELISEO Administration Lanolin 1 applic 11/23/22 10:08 11/28/22 10:45 Lanolin Oint 7 Gm TOPICAL 1 applic PRN PRN Administration DRYNESS Levalbuterol HCl 0.63 mg 12/01/22 14:00 12/08/22 13:19 Levalbuterol 0.63 Mg/3 Ml Neb INHALATION 0.63 mg Q6H.RESP ELISEO Administration Metoclopramide HCl 5 mg 12/01/22 10:00 12/06/22 03:53 Metoclopramide 10 Mg Tablet PO 5 mg DAILY PRN Administration nausea and vomiting Non-Formulary Medication 145 mcg 12/04/22 09:00 12/08/22 10:17 Linaclotide [Linzess] PO Not Given DAILY ELISEO Ondansetron HCl 4 mg 11/22/22 21:52 12/08/22 10:23 Ondansetron 2 Mg/Ml Sdv 2 Ml IVP 4 mg Q6H PRN Administration vomiting, or N/V if npo Oxybutynin Chloride 5 mg 12/01/22 15:00 12/08/22 14:48 Oxybutynin 5 Mg Tablet PO 5 mg TID ELISEO Administration Oxycodone/Acetaminophen 1 tab 12/01/22 10:00 12/08/22 10:41 Oxycodone-Apap 5-325 Mg Tablet PO 1 tab Q6H PRN Administration Pain Pantoprazole Sodium 40 mg 11/30/22 09:00 12/08/22 08:[address] 40 Mg Tablet PO 40 mg DAILY ELISEO Administration Pregabalin 50 mg 11/23/22 18:00 12/08/22 08:07 Pregabalin 50 Mg Capsule PO 50 mg BID ELISEO Administration Sertraline HCl 50 mg 12/02/22 09:00 12/08/22 08:07 Sertraline 50 Mg Tablet PO 50 mg DAILY ELISEO Administration Sodium Chloride 4 ml 12/01/22 20:00 12/08/22 09:30 Sodium Chloride 3.5% Neb 4 Ml Neb INHALATION 4 ml BID.RESPIRATORY ELISEO Administration PFSH Acute PFSH: Medical History Anxiety Chronic kidney disease Colostomy in place COVID-19 (~2019) Depression Diabetes mellitus, type II GERD (gastroesophageal reflux disease) History of ESBL E. coli infection Hydronephrosis Hyperlipidemia senior living prescription opiate use Neurogenic bladder Neuropathic pain PVD (peripheral vascular disease) Quadriplegia secondary to trauma Recurrent sepsis due to urinary tract infection Sacral decubitus ulcer Sacral decubitus ulcer, stage IV Suprapubic catheter Therapeutic opioid induced constipation Urinary retention Surgical History H/O bladder repair surgery H/O cystoscopy H/O partial cystectomy H/O Spinal surgery History of hysterectomy History of partial gastrectomy (12/2019) due to perforated viscous from gastric ulcer Family History Other CAD (coronary artery disease) Diabetes Hypertension Social History Smoking and tobacco status: never smoked Alcohol intake: never Housing: Long-Term Marital status: Current occupational status: disabled Vitals/I&O/Wt Last Vital Signs Temp 98.1 F 12/08/22 16:00 Pulse 88 12/08/22 16:00 Resp 16 12/08/22 16:00 BP 104/67 12/08/22 16:00 Pulse Ox 95 12/08/22 16:00 O2 Del Method 12/08/22 16:00 O2 Flow Rate 2 12/03/22 20:00 FiO2 40 11/28/22 16:15 12/08/22 12/08/22 12/08/22 06:59 14:59 22:59 Intake Total 120 / 2180 680 / 680 Output Total 550 / 2800 400 / 400 Balance -430 / -620 280 / 280 Physical Exam Narrative: General: No acute distress, AO x3 HEENT: PERRLA, pupils bilaterally equal and reactive, pallors not present Chest: Normal vesicular breath sounds, no added sounds, equal good air entry bilaterally CVS: S1-S2 regular, no murmurs, no tachycardia, no gallops, no rubs Abdomen: Soft, nontender, non distended, colostomy in place , surgical lasha in place over midline ex lap incision, no drains Neuro: No focal deficits, no facial deformity, AO x3, power 5/5 in all limbs Urinary Catheter Management: Suprapubic: Cath Placed During This Visit: yes Reason for Continuing Indwelling Catheter: Chronic Indwelling Urinary Catheter on Admission Urinary Catheter Date of Insertion: 12/03/22 Urinary Catheter Time of Insertion: 14:21 Data 12/07/22 04:10 12/07/22 05:49 Other Labs: Radiology Impressions Chest CTA 11/27/22 09:10 IMPRESSION: 1. Complete atelectasis LEFT upper and LEFT lower lobes due to obstruction of the proximal LEFT mainstem bronchus which is probably due to mucus again. New atelectasis since 09/25/2022. 2. Small bilateral pleural effusions. 3. No pulmonary embolism. 4. Subsegmental atelectasis RIGHT lung base. Notified Jesse Kunz MD at 11/27/2022 12:42 PM. Chest/Abdomen X-ray 12/01/22 19:59 IMPRESSION: 1. Postop and chronic findings, no bowel obstruction noted. 2. Perhaps mild postop ileus. Chest X-Ray 12/02/22 08:33 IMPRESSION: 1. No change since 11/30/2022. 2. Right subclavian central line tip is in the right atrium. CT abd/pelvis 12/06/22 CT/CT abdomen pelvis w con* [id number] IMPRESSION: 1. Again noted is a lobulated and loculated fluid collection in the pelvis with peripheral enhancement that measures about 9.2 x 9.1 x 5.0 cm in overall diameters. An infected fluid collection is not excluded. 2. Postsurgical changes with a left lower quadrant sigmoid ostomy and Bry's pouch. 3. Postsurgical wispy fluid collections in the right side of the abdomen unchanged. 4. Multiple fluid-filled loops of bowel most likely secondary to a adynamic ileus. CT abd/pelvis 12/02/22 CT/CT abdomen pelvis wo con [id number] IMPRESSION: ? 1.? Study performed without IV and oral contrast. 2.? There are several foci of free air within the abdomen which are not definitely contained within the lumen of the GI tract. Bowel perforation needs to be considered. A small foci of free air also could be related to the p eritoneal drains that were recently removed. 3.? Fluid collection in the central pelvis extends towards the mesenteric root. Slight increase in size but this is an ill-defined collection. Also described on the prior examination of 11/26/2022 but has slightly increased in size. No foci of air within this collection. 4.? New pericolonic and omental stranding surrounding the ascending colon and transverse colon with a few adjacent foci of air. Recommend surveillance for possible perforation. 5.? LEFT lower quadrant ostomy site. Laboratory Results WBC 5.8 10^3/uL (4.0-10.0) 12/09/22 05:07 RBC 3.42 10^6/uL (4.1-5.3) L 12/09/22 05:07 Hgb 9.2 g/dL (11.5-15.3) L 12/09/22 05:07 Hct 30.2 % (37.0-47.0) L 12/09/22 05:07 MCV 88.3 fl (81-99) 12/09/22 05:07 MCH 26.9 pg (28.0-34.0) L 12/09/22 05:07 MCHC 30.5 g/dL (30.0-36.0) 12/09/22 05:07 RDW 16.3 % (12.1-15.1) H 12/09/22 05:07 Plt Count 370 10^3/cmm (130-400) 12/09/22 05:07 MPV 10.1 fL (7.4-10.4) 12/09/22 05:07 Neut % (Auto) 62.8 % 12/09/22 05:07 Lymph % (Auto) 21.7 % 12/09/22 05:07 [place] % (Auto) 12.8 % 12/09/22 05:07 Eos % (Auto) 0.3 % 12/09/22 05:07 Baso % (Auto) 0.7 % 12/09/22 05:07 Neut # (Auto) 3.62 10^3/uL (1.8-7.7) 12/09/22 05:07 Lymph # (Auto) 1.3 10^3/uL (0.8-4.8) 12/09/22 05:07 [place] # (Auto) 0.7 10^3/uL (0.2-0.9) 12/09/22 05:07 Eos # (Auto) 0.0 10^3/uL (0.0-0.8) 12/09/22 05:07 Baso # (Auto) 0.0 10^3/uL (0.0-0.1) 12/09/22 05:07 Nucleated RBC % (auto) 0 % 12/09/22 05:07 Nucleated RBCs # 0.0 /100WBC 12/09/22 05:07 Specimen Type Arterial 11/27/22 08:04 Sample Site Radial, left 11/27/22 08:04 ABG pH 7.41 (7.35-7.45) 11/27/22 08:04 ABG pCO2 32.6 mmHg (35-45) L 11/27/22 08:04 ABG pO2 53.6 mmHg (80.0-100.0) L 11/27/22 08:04 ABG HCO3 20.4 mmol/L (22-26) L 11/27/22 08:04 ABG O2 Saturation 89.9 11/27/22 08:04 ABG Base Excess -3.7 mmol/L (-2.0-2.0) L 11/27/22 08:04 Sabino Test Pos 11/27/22 08:04 A-a O2 Gradient 57.9 mmHg (5-10) H 11/27/22 08:04 Hematocrit 32.3 % (37-47) L 11/27/22 08:04 Hgb O2 Saturation 88.5 % (95-100) L 11/27/22 08:04 Carboxyhemoglobin 1.2 %THgb (0.4-20.1) 11/27/22 08:04 Methemoglobin 0.4 % (0.4-1.5) 11/27/22 08:04 Total Hemoglobin 10.5 g/dL (12-16) L 11/27/22 08:04 Sodium 141.0 mmol/L (131-143) 11/27/22 08:04 Potassium 3.5 mmol/L (3.5-5.0) 11/27/22 08:04 Glucose 106.0 mg/dL (70-115) 11/27/22 08:04 Ionized Calcium 1.2 mmol/L (1.1-1.4) 11/27/22 08:04 O2 Delivery Device Hag 11/27/22 08:04 O2 Liters/Min 30.0 % 11/27/22 08:04 FiO2 75.0 % 11/27/22 08:04 Tidal Volume 0.35 11/25/22 04:10 PEEP 5.0 cmH20 11/25/22 04:10 Cash Processing Specialist ID Monro 11/27/22 08:04 Sodium 138 mmol/L (136-145) 12/09/22 05:07 Potassium 4.5 mmol/L (3.5-5.1) 12/09/22 05:07 Chloride 99 mmol/L (98-107) 12/09/22 05:07 Carbon Dioxide 27 mmol/L (22-29) 12/09/22 05:07 Anion Gap 16.5 (5-19) 12/09/22 05:07 BUN 10 mg/dL (6-20) 12/09/22 05:07 Creatinine 0.5 mg/dL (0.5-0.9) 12/09/22 05:07 GFR Calculation 132.2 mL/min (90-130) H 12/09/22 05:07 Glucose 111 mg/dL (65-115) 12/09/22 05:07 POC Glucose 133 mg/dL (70-110) H 12/11/22 06:10 Calculated Osmolality 286 mOsm/kg (285-295) 12/09/22 05:07 Lactic Acid 0.9 mmol/L (0.5-2.2) 11/23/22 18:19 Lactate 1.4 mmol/L (0.5-2.2) 11/23/22 06:29 Calcium 9.0 mg/dL (8.5-10.5) 12/09/22 05:07 Phosphorus 2.9 mg/dL (2.5-4.5) 12/09/22 05:07 Magnesium 2.3 mg/dL (1.7-2.3) 12/09/22 05:07 Total Bilirubin 0.2 mg/dL (0.15-1.2) 12/03/22 03:02 AST 13 U/L (0-32) 12/03/22 03:02 ALT 19 U/L (0-33) 12/03/22 03:02 Alkaline Phosphatase 76 U/L (35-105) 12/03/22 03:02 Total Protein 6.1 g/dL (6.6-8.7) L 12/03/22 03:02 Albumin 3.0 g/dL (3.5-5.2) L 12/03/22 03:02 Globulin 3.1 g/dL (1.3-4.6) 12/03/22 03:02 Lipase 16 U/L (13-60) 11/22/22 14:08 Procalcitonin 0.17 ng/mL (0-0.5) 12/02/22 05:45 Urine Color Yellow (Yellow) 12/08/22 15:49 Urine Appearance Hazy (CLEAR) A 12/08/22 15:49 Urine pH 7 (5-7) 12/08/22 15:49 Ur Specific [place] 1.010 (1.005-1.030) 12/08/22 15:49 Urine Protein Trace (Negative) 12/08/22 15:49 Urine Glucose (UA) Norm (Normal) 12/08/22 15:49 Urine Ketones 1+ (Negative) H 12/08/22 15:49 Urine Blood Trace (Negative) H 12/08/22 15:49 Urine Nitrate Negative (Negative) 12/08/22 15:49 Urine Bilirubin Neg (Negative) 12/08/22 15:49 Urine Urobilinogen Neg mg/dL (Negative) 12/08/22 15:49 Ur Leukocyte Esterase 1+ (Negative) H 12/08/22 15:49 Urine RBC 0-4 /hpf (0-2) H 12/08/22 15:49 Urine WBC 10-15 /hpf (0-5) H 12/08/22 15:49 Ur Squamous Epith Cells 5-10 /hpf (0-5) H 12/08/22 15:49 Ur Renal Epithelial Cell 5-10 /hpf 12/08/22 15:49 Amorphous Sediment Not Reportable 12/08/22 15:49 Urine Bacteria None /hpf (NONE) 12/08/22 15:49 Nasal Influ A H1 2008 PCR Not detected (NOT DETECT) 12/02/22 08:50 Bronch Specimen Source Left lower lobe 11/28/22 08:35 Bronchial Fluid Color Slight pink 11/28/22 08:35 Bronchial Fluid Appearance Cloudy (CLEAR) 11/28/22 08:35 Bronchial Fluid WBC 288 /uL 11/28/22 08:35 Bronchial Fluid RBC 1200 10^3/uL 11/28/22 08:35 Bronch Cells Counted 200 11/28/22 08:35 Bronchial Neutrophils 51.00 % (0.9-2.3) H 11/28/22 08:35 Bronchial Lymphocytes 41.00 % (10.71-12.91) H 11/28/22 08:35 Bronchial Macrophages 8.00 % (83.6-86.8) L 11/28/22 08:35 Vancomycin Trough 11.1 ug/mL (10-15) 11/29/22 03:55 Adenovirus (PCR) Not detected (NOT DETECT) 12/02/22 08:50 C. pneumoniae DNA (PCR) Not detected (NOT DETECT) 12/02/22 08:50 Coronavirus 229E (PCR) Not detected (NOT DETECT) 12/02/22 08:50 Human Metapneumovir PCR Not detected (NOT DETECT) 12/02/22 08:50 Influenza A (H1) PCR Not detected (NOT DETECT) 12/02/22 08:50 Influenza A (H3) PCR Not detected (NOT DETECT) 12/02/22 08:50 Influenza Type A (PCR) Not detected (NOT DETECT) 12/02/22 08:50 Influenza Type B (PCR) Not detected (NOT DETECT) 12/02/22 08:50 Legionella Source 11/28/22 08:35 L.pneumophila Antigen Not detected 11/28/22 08:35 M. pneumoniae (PCR) Not detected (NOT DETECT) 12/02/22 08:50 Parainfluenza 1 (PCR) Not detected (NOT DETECT) 12/02/22 08:50 Parainfluenza 2 (PCR) Not detected (NOT DETECT) 12/02/22 08:50 Parainfluenza 3 (PCR) Not detected (NOT DETECT) 12/02/22 08:50 Parainfluenza 4 (PCR) Not detected (NOT DETECT) 12/02/22 08:50 RSV Type A (PCR) Not detected (NOT DETECT) 12/02/22 08:50 RSV Type B (PCR) Not detected (NOT DETECT) 12/02/22 08:50 Entero/Rhino (PCR) Not detected (NOT DETECT) 12/02/22 08:50 SARS-CoV-2 (PCR) Not detected (NOT DETECT) 12/02/22 08:50 SARS-CoV-2 Ag (Rapid) negative (Negative) 12/08/22 15:46 Blood Type A Positive 11/22/22 20:15 Rho(D) Type Positive 11/22/22 20:15 Antibody Screen Negative 11/22/22 20:15 Crossmatch See Detail 11/22/22 20:15 Micro: Microbiology 12/06/22 13:45 Catheter Tip Culture - Final Central Line Blood culture December 02, 2022: No growth November 28, 2022: Bronchial wash culture and Gram stain: No growth November 24, 2022: Urine culture: No growth November 23, 2022: Blood culture no growth 12/02: respiratory viral panel: negative Past cultures: Blood culture October 21, 2022 Proteus mirabilis ESBL (suppressive treatment with fosfomycin interrupted at this time) * Amikacin <=16 S * Amoxicillin/Clavulanate >16/8 R * Ampicillin >16 R * Ampicillin/Sulbactam <=8/4 S * Aztreonam >16 R * Cefepime <=8 R * Ceftriaxone <=1 R * Cefuroxime <=4 R * Ciprofloxacin >2 R * Gentamicin <=2 S * Levofloxacin >4 R * Tetracycline >8 R * Trimethoprim/Sulfamethoxazole >2/38 R * Piperacillin/Tazobactam <=16 S Urine culture: April 2022 ESBL E. coli * Amikacin <=16 S * Amoxicillin/Clavulanate 16/8 I * Ampicillin >16 R * Ampicillin/Sulbactam >16/8 R * Aztreonam >16 R * Cefepime >16 R * Ceftriaxone >32 R * Cefuroxime >16 R * Ciprofloxacin >2 R * Gentamicin <=2 S * Imipenem <=1 S * Levofloxacin >4 R * Nitrofurantoin >64 R * Tetracycline <=4 S * Trimethoprim/Sulfamethoxazole >2/38 R * Piperacillin/Tazobactam >64 R Urine culture: February 2022 ESBL E. coli January 2022: ESBL E. coli January 24, 2022: ESBL E. coli July 2021: ESBL E. coli and Proteus mirabilis July 2020: ESBL E. coli March 2020: ESBL E. coli and Pseudomonas aeruginosa February 2020: E. coli Other data: A&P Assessment and plan (1) Intra-abdominal abscess: 47 year old female with a ?past medical history of quadriplegia suprapubic catheter neurogenic bladder, recurrent ESBL UTIs, opioid induced chronic constipation,?Formerly [facility], 1928–1983 resident, recently admitted here between 11/13-11/18 for constipation and obstipation, colonic dilatation s/p diverting colostomy to improve quality of life. She returned to ER on 11/22 with abdominal pain and nausea. CT abdomen concerning for colonic obstruction and fluid collection in the left anterior abdomen near the colostomy. s/p Exploratory laparotomy with right hemicolectomy and colostomy revision. Inoperative findings included ischemic changes of the right colon pending perforation for which right hemicolectomy was needed. Postoperative course as described above. Current active issues include an intra-abdominal abscess,9.2 x 9.1 x 5.0 cm on last check on CT abdomen from December 06, 2022. Patient is currently receiving treatment with meropenem, 1 g IV every 8 hours since admission, dose increased to 2 g IV every 8 hours given past medical history of multiple ESBL isolates, including Proteus mirabilis, ongoing fever. W e are unable to obtain meropenem susceptibilities at out facility. Isolate from blood cx dates back to September 2022, can no longer be sent to [facility] for cx. . Currently the abscess is not amenable to IR drainage. No further surgeries are planned therefore direct cultures from the abscess are unable to be obtained. Presuming that past colonizers are the culprits here, chose meropenem for the empiric coverage. Patient is planning to be discharged in the next few days, at the time of discharge meropenem can be changed to ertapenem 1 g IV every 24 hours at discharge. Plan to treat patient with IV ertapenem over the next 2 weeks, then repeat a CT of the abdomen and pelvis to follow-up on interval resolution of the abscess. Final antibiotic duration will be dependent on resolution of radiographic findings and clinical course. Patient is transitioning care to [facility] in [place] where she is going to be closer to her family. Since it is anticipated it may be a few weeks before she is able to be established with a new infectious disease service, we have requested that her follow-up weekly labs and CT abdomen in 2 weeks to be faxed over to the ID clinic here for review. If she is able to be established with an ID service in the next 2 weeks, care can be transitioned over to the new team. Patient underwent bronchoscopy on November 28, 2022 for mucous plugging. Serial chest x-ray, most recent on December 02, 2022 without any signs of pneumonia. Respiratory cultures negative. Doubt that pneumonia is contributing to the fevers. Right IJ central line removed after 14 days recently, blood cultures remain negative to date. Respiratory viral panel is negative. No other focal signs or symptoms of localizing infection at other site. (2) Fever: Likely secondary to intra-abdominal abscess, Continue increased dose of meropenem 2 g IV every 8 hours (3) Mucus plugging of bronchi: Now resolved after bronchoscopy on November 28 (4) Ischemic colon: Present on admission, now resolved, being followed by general surgery (5) Sepsis: Present on admission, now resolved. (6) Colostomy in place: Stoma management per surgery (7) History of ESBL E. coli infection: Recurrent ESBL E. coli UTIs in 2020 and 2021. Bloodstream infection with Prot eus mirabilis September 2022. Placed on fosfomycin suppression as outpatient in April 2022, however treatment interrupted after 1 month, breakthrough infection with Proteus off of fosfomycin. Recommend to continue fosfomycin suppression once patient is completed with her ertapenem course. Until then fosfomycin can be on hold. (8) Suprapubic catheter: Follows with urology, recently with clogged catheter, resulting hydronephrosis, recently changed SPC in September 2022. (9) Recurrent UTI: As above (10) Stage III pressure ulcer of right buttock: Consult Attestations Medical Necessity Statement: Per admitting note and Moderate Time (65) for a total of 65 minutes, includes reviewing past or interval history, examining/interviewing patient, placing orders, counseling patient/family/other support, updating patient/family/other support, discussing plan of care with staff, communicating with other healthcare providers, documenting encounter and coordinating care Diagnoses Intra-abdominal abscess K65.1 Fever R50.9 Mucus plugging of bronchi T17.500A Ischemic colon K55.9 Sepsis A41.[address] Z93.3 History of ESBL E. coli infection Z86.19 Suprapubic catheter Z93.59 Recurrent UTI N39.0 Stage III pressure ulcer of right buttock L89.313
[2022-12-08 16:53] LABS: Glucose Point of Care 103 mg/dL (70-110)
[2022-12-08 17:00] LABS: Protein Urine Trace (Negative); Urine Appearance Hazy (CLEAR); pH Urine 7 (5-7)
[2022-12-08 17:01] LABS: Add Urine Microscopic? YES; Bilirubin Urine Neg (Negative); Blood Urine Trace (Negative); Glucose Urine UA Norm (Normal); Ketones Urine 1+ (Negative); Leukocyte Esterase Urine 1+ (Negative); Nitrate Urine Negative (Negative); Urobilinogen Urine Neg (Negative)
[2022-12-08 17:02] LABS: RBC Urine 0-4 /hpf (0-2); Urine Color Yellow (Yellow)
[2022-12-08 17:03] LABS: Add Urine Culture? Yes
[2022-12-08 18:02] LABS: SARS Covid-2 Antigen negative (Negative)
[2022-12-08 20:47] LABS: Glucose Point of Care 121 mg/dL (70-110)
[2022-12-08] MEDS: atorvastatin 40 mg Tablet 20 MG PO (20:59)
[2022-12-09] VITALS (13 sets, daily range): BP systolic 99–109; BP diastolic 67–75; PULSE 79–93; RESP 15–18; TEMP 36.8–37.8; O2SAT 93–98
[2022-12-09] MEDS: ipratropium 0.5 mg/2.5 mL Neb INHALATION ×3 (03:23→21:30)
[2022-12-09] MEDS: levalbuterol 0.63 mg/3 mL Neb INHALATION ×3 (03:23→21:30)
[2022-12-09 05:26] LABS: Basophils % 0.7 %; Eosinophils % 0.3 %; Hematocrit 30.2 % (37.0-47.0); Hemoglobin 9.2 g/dL (11.5-15.3); Lymphocytes # 1.3 10^3/uL (0.8-4.8); Lymphocytes % 21.7 %; Mean Corpuscular HGB Conc 30.5 g/dL (30.0-36.0); Mean Corpuscular Hemoglobin 26.9 pg (28.0-34.0); Mean Corpuscular Volume 88.3 fl (81-99); Mean Platelet Volume 10.1 fL (7.4-10.4); Monocytes # 0.7 10^3/uL (0.2-0.9); Monocytes % 12.8 %; Neutrophils # 3.62 10^3/uL (1.8-7.7); Neutrophils % 62.8 %; Nucleated Red Blood Cells % 0 %; Platelet Count 370 10^3/cmm (130-400); Red Blood Count 3.42 10^6/uL (4.1-5.3); Red Cell Distribution Width 16.3 % (12.1-15.1); White Blood Count 5.8 10^3/uL (4.0-10.0)
[2022-12-09 05:50] LABS: Anion Gap 16.5 (5-19); Blood Urea Nitrogen 10 mg/dL (6-20); Carbon Dioxide 27 mmol/L (22-29); Chloride 99 mmol/L (98-107); Glomerular Filtration Rate 132.2 mL/min (90-130); Glucose 111 mg/dL (65-115); Magnesium 2.3 mg/dL (1.7-2.3); Osmolality Calculated 286 mOsm/kg (285-295); Phosphorus 2.9 mg/dL (2.5-4.5); Potassium 4.5 mmol/L (3.5-5.1); Sodium 138 mmol/L (136-145)
[2022-12-09] MEDS: meropenem 2,000 MG in sodium chloride 0.9% (100 ml) 100 ML 200 MG IV ×3 (06:17→22:56)
[2022-12-09] MEDS: lactulose oral liq 20 gm/30 mL UDC 10 GM PO ×3 (06:19→22:57)
[2022-12-09] MEDS: heparin 5,000 unit/mL INJ 1 mL 5000 UNIT SUBCUT ×3 (06:20→22:57)
[2022-12-09] MEDS: ondansetron 2 mg/ML SDV 2 mL 4 MG IVP (06:28)
[2022-12-09 06:47] LABS: Glucose Point of Care 114 mg/dL (70-110)
--- NOTE | 2022-12-09 07:00 | CT_ITS ---
WS: [id number] CT ABDOMEN PELVIS TECHNIQUE: Contrast-enhanced CT of the abdomen and pelvis with coronal and sagittal reformatted image s. CLINICAL INFORMATION: intra-abdominal abscess COMPARISON: CT 12/06/2022 and 12/03/2022 DLP: 654.[address] scans at [facility] use at least one of these dose optimization techniques: automated e xposure control; mA and/or kV adjustment per patient size (includes targeted exams where dose is matc hed to clinical indication); or iterative reconstruction. FINDINGS: Previously described peripheral enhancing pelvic fluid collection. Decreased in size today measuring 2.3 x 3.1 x 5.4 CM. More ill-defined fluid inferiorly along the dorsal cervix is unchanged extending along the LEFT greater than RIGHT ovarian ligaments. No other suspicious fluid collections. Otherwise unchanged postoperative partial colectomy with LEFT lower quadrant colostomy and Vasquez's pouch. Prior postoperative changes gastric sleeve procedure. M ild bibasilar atelectasis. Diffuse fatty infiltration liver. Normal portal vein and splenic vein. No rmal pancreatic parenchymal enhancement. Normal splenic enhancement. Air-fluid level in the stomach. Mild fluid distended loops of small bowel similar to previous compatible with adynamic ileus with a f ew air-fluid levels. Mild distention of the transverse colon with air-fluid levels unchanged from pre vious. Ostomy is decompressed. Mesenteric edema compatible with recent postoperative changes. Normal caliber abdominal aorta. Celiac and SMA are patent. Adrenal glands are normal. Bilateral renal parenchymal scarring. Dumont catheter. Mild bilateral renal pelvocaliectasis slightly improved compared to previous. No other significant i nterval changes. CT/CT abdomen pelvis w con* [id number] IMPRESSION: 1. Previously described peripheral enhancing pelvic fluid collection has decr eased in size compared to previous today measuring 2.3 x 3.1 x 5.4 CM. This aline sured approximately 4.1 x 5.0 x 7.1 cm previous by my measurements 2. Additional more ill-defined fluid collection along the dorsal cervix and ex tending along the ovarian ligaments is relatively unchanged since November 26, 2022 3. Mild improvement in the bilateral hydronephrosis compared to previous. 4. Bibasilar atelectasis. 5. Persistent but slightly improved small bowel adynamic ileus. 6. No other significant interval changes. 7. Dumont catheter. Notified Gwen Robins MD at 12/09/2022 10:45 AM.
[2022-12-09] MEDS: gabapentin 400 mg Capsule 1200 MG PO ×3 (08:17→20:37)
[2022-12-09] MEDS: sertraline 50 mg Tablet PO (08:17)
[2022-12-09] MEDS: guaiFENesin 600 mg Tablet 1200 MG PO ×2 (08:17→17:18)
[2022-12-09] MEDS: pantoprazole DR 40 mg Tablet PO (08:18)
[2022-12-09] MEDS: oxybutynin 5 mg Tablet PO ×3 (08:18→20:38)
[2022-12-09] MEDS: pregabalin 50 mg Capsule PO ×2 (08:28→17:18)
--- NOTE | 2022-12-09 08:49 | PM.PN ---
Subjective Subjective: Patient much improved. Afebrile with pain under control. Ostomy producing. Tolerating regular diet. Interventional radiology reports that they cannot access her abscess Vitals/I&O/Wt Last Vital Signs Temp 98.3 F 12/09/22 08:00 Pulse 90 12/09/22 08:00 Resp 16 12/09/22 08:00 BP 109/75 12/09/22 08:00 Pulse Ox 95 12/09/22 08:00 O2 Del Method 12/09/22 08:00 O2 Flow Rate 2 12/03/22 20:00 FiO2 40 11/28/22 16:15 12/08/22 12/09/22 12/09/22 22:59 06:59 14:59 Intake Total 120 / 800 100 / 900 100 / 100 Output Total 1600 / 2000 700 / 2700 Balance -1480 / -1200 -600 / -1800 100 / 100 Physical Exam Narrative: General: In distress, awake alert and oriented x3 Abdomen: Soft, nondistended, tender to palpation right abdomen no guarding rebound or masses Incisions intact without erythema or exudate Ostomy pink patent and producing Urinary Catheter Management: Suprapubic: Cath Placed During This Visit: yes Reason for Continuing Indwelling Catheter: Other Urinary Catheter Date of Insertion: 12/03/22 Urinary Catheter Time of Insertion: 14:21 Data 12/09/22 05:07 12/09/22 05:07 Micro: Microbiology 12/06/22 13:45 Catheter Tip Culture - Final Central Line A&P Assessment and plan (1) Bowel obstruction: (2) Colostomy in place: (3) Ischemic colon: Plan Status post exploratory laparotomy, lysis of adhesions for small bowel obstruction, right hemicolectomy for ischemia and colostomy revision Regular diet Medical management per hospitalist-appreciate input Infectious Disease consulted- appreciate input Plan for possible discharge tomorrow with 1 g ertapenem daily followed by repeat CT in 2 weeks Attestations Medical Necessity Statement*: Requires further hospitalization for management of intra-abdominal abscess in a patient who is postoperative for ischemic colitis with right hemicolectomy and revision of colostomy Coding Level of Care Code Acute Code for Chg Fwd Diagnoses Bowel obstruction K56.[address] Z93.3 Ischemic colon K55.9
[2022-12-09] MEDS: iohexol 350 mg/mL 500 mL Btl (per mL) IV (08:50)
[2022-12-09] MEDS: metoclopramide 10 mg Tablet 5 MG PO (09:36)
[2022-12-09 11:25] LABS: Glucose Point of Care 136 mg/dL (70-110)
--- NOTE | 2022-12-09 11:40 | PC.SOCIAL ---
IMM Updated Updated pt on IMM. No questions voiced. Provided pt a copy. Initialed, dated, & timed copy in chart.
--- NOTE | 2022-12-09 12:00 | PM.PN ---
Subjective Subjective: repeat CT today showed the fluid enhanced collection a lot smaller down to 2.5 cm. pt has no complaints at this time no acute events overnight Vitals/I&O/Wt Last Vital Signs Temp 98.3 F 12/09/22 08:00 Pulse 90 12/09/22 08:00 Resp 16 12/09/22 08:00 BP 109/75 12/09/22 08:00 Pulse Ox 95 12/09/22 08:00 O2 Del Method 12/09/22 08:00 O2 Flow Rate 2 12/03/22 20:00 FiO2 40 11/28/22 16:15 12/08/22 12/09/22 12/09/22 22:59 06:59 14:59 Intake Total 120 / 800 100 / 900 340 / 340 Output Total 1600 / 2000 700 / 2700 Balance -1480 / -1200 -600 / -1800 340 / 340 Physical Exam Narrative: General: No acute distress, awake and alert x3. HEENT: EOMI. Chest: Normal vesicular breath sounds anteriorly, no added sounds, equal good air entry bilaterally CVS: S1-S2 regular, no murmurs, no tachycardia, no gallops, no rubs Abdomen: post operative, anterior abdomen surgical dressing in place, not opened for exam by me, multiple abdominal drains present, colostomy present. Mildly tender to palpation all throughout but soft. Neuro: AOx3. Quadriplegic patient. Urinary Catheter Management: Suprapubic: Cath Placed During This Visit: yes Reason for Continuing Indwelling Catheter: Other Urinary Catheter Date of Insertion: 12/03/22 Urinary Catheter Time of Insertion: 14:21 Data 12/09/22 05:07 12/09/22 05:07 Micro: Microbiology 12/06/22 13:45 Catheter Tip Culture - Final Central Line A&P Assessment and plan (1) Intra-abdominal collection: (2) Fever: (3) Anemia: (4) Colostomy in place: (5) Quadriplegia: (6) Therapeutic opioid induced constipation: (7) Anxiety and depression: Plan Rosanne Morales is a 47 year old female with past medical history of quadriplegia suprapubic catheter neurogenic bladder, Erecurrent ESBL UTIs, opioid induced chronic constipation,?recently admitted here between 11/13-11/18 for constipation and obstipation, colinic dilatation s/p diverting colostomy to improve quality of life. Her postoperative stay was uneventful. She returned to ER today with abdominal pain and nausea. CT abdomen concerning for colonic obstruction possible appendicitis, small bowel obstruction and fluid collection in the left anterior abdomen near the colostomy. She was taken to the Er for Exploratory laparotomy with right hemicolectomy and colostomy revision. Inoperative findings included ischemic changes of the right colon pending perforation for which right hemicolectomy was needed. Appendix did not look inflammed. Patient was brought to ICU post operatively and remained intubated. She was on phenylephrine. EBL 300 cc. Her osotomy has fecal output post operatively. Internal medicine was consulted for postop vent management as well as possible sepsis. She was extubated on postop day 3. FiO2 requirements increased and her chest x-ray showed left lung opacities with possible mucous plugging. CTA on 11/2022 through showed complete atelectasis of left upper and left lower bases due to obstruction of proximal left main bronchus which is probably due to mucous plug that there are small bilateral effusions. Bronchoscopy was performed on November 28, 2022 for therapeutic aspiration of tracheobronchial tree. Patient started to have fevers and CT abdomen pelvis on 12/06 showed intra-abdominal collections. Patient was on meropenem 1 g 3 times daily along with oral fluconazole. Peripheral enhancement seen on CT scan 9 cm x 9 cm x 5 cm. Abscess cannot be ruled out completely. Initial septic shock is resolved. Blood culture negative to date, urine culture no growth. Prior history of ESBL Proteus. #Constipation obstipation elective colostomy done November 15 #Status post exploratory laparotomy right hemicolectomy colostomy revision 11/22/22, ischemic bowel #Fever #Septic shock?resolved #Intra-abdominal fluid collection, abscess cannot be ruled out #Metabolic acidosis?resolved #Postop blood loss anemia?stable resolved #Respiratory failure secondary to left lung collapse due to mucous plugging?status post bronchoscopy/resolved. #Bilateral hydroureteronephrosis - Patient has been afebrile overnight. Infectious disease consulted. - Discharge to longterm with IV ertapenem 1 g daily ? Continue meropenem 2 g 3 times daily for now, continue fluconazole to complete 7-day course. ? Continue on hypertonic saline, Mucomyst. Incentive spirometry and flutter valve. ?Mild right greater than left hydroureteronephrosis. Urology has seen the patient in the past, and at that time they decided not for any intervention. Appreciated again on CAT scan done on 12/02. - Called brother but unable to get a hold of him. - Plan to dc patient to [facility] as soon as insurance authorization is setup. She will have a repeat ct abd in 2 weeks. Analgesia: Continue home dose of oxycodone 5 every 6 hours as needed Glycemic control: Not needed Nutrition: Regular diet as per primary team CODE STATUS: Full code PUD prophylaxis: Protonix DVT prophylaxis: Heparin 5000 every 12 hourly. Discharge planning: Discharge to [facility] at [facility] Attestations Medical Necessity Statement*: pending placement Coding Level of Care Code Acute Code for Chg Fwd Diagnoses Intra-abdominal collection R18.8 Fever R50.9 Anemia D64.[address] Z93.3 Quadriplegia G82.50 Therapeutic opioid induced constipation K59.03; T40.2X5A Anxiety and depression F41.9; F32.A
[2022-12-09] MEDS: oxyCODONE-APAP 5-325 mg Tablet 1 TAB PO ×2 (14:29→20:37)
[2022-12-09 17:13] LABS: Glucose Point of Care 117 mg/dL (70-110)
[2022-12-09] MEDS: cyclobenzaprine 10 mg Tablet 5 MG PO (20:37)
[2022-12-09] MEDS: atorvastatin 40 mg Tablet 20 MG PO (20:38)
[2022-12-09 20:51] LABS: Glucose Point of Care 142 mg/dL (70-110)
[2022-12-09] MEDS: insulin lispro 100 unit/1 mL SUBCUT (21:19)
[2022-12-09] MEDS: sodium chloride 3.5% neb 4 mL Neb INHALATION (21:30)
[2022-12-10] VITALS (15 sets, daily range): BP systolic 97–109; BP diastolic 67–75; PULSE 74–95; RESP 16–19; TEMP 36.6–37.1; O2SAT 93–99
[2022-12-10] MEDS: levalbuterol 0.63 mg/3 mL Neb INHALATION ×4 (02:52→22:36)
[2022-12-10] MEDS: ipratropium 0.5 mg/2.5 mL Neb INHALATION ×4 (02:52→22:36)
[2022-12-10] MEDS: meropenem 2,000 MG in sodium chloride 0.9% (100 ml) 100 ML 200 MG IV ×3 (05:33→23:01)
[2022-12-10] MEDS: heparin 5,000 unit/mL INJ 1 mL 5000 UNIT SUBCUT ×3 (06:15→22:53)
[2022-12-10 06:58] LABS: Glucose Point of Care 114 mg/dL (70-110)
[2022-12-10] MEDS: sodium chloride 3.5% neb 4 mL Neb INHALATION ×2 (07:50→22:36)
[2022-12-10] MEDS: gabapentin 400 mg Capsule 1200 MG PO ×3 (09:48→20:24)
[2022-12-10] MEDS: oxybutynin 5 mg Tablet PO ×3 (09:49→20:24)
[2022-12-10] MEDS: sertraline 50 mg Tablet PO (09:49)
[2022-12-10] MEDS: guaiFENesin 600 mg Tablet 1200 MG PO ×2 (09:49→17:31)
[2022-12-10] MEDS: pantoprazole DR 40 mg Tablet PO (09:49)
--- NOTE | 2022-12-10 11:00 | P.PN_ITS ---
Subjective Subjective: Infectious disease follow-up note No new events today. Patient had a CAT scan repeated yesterday which showed interval improvement in the size of the abscess. She has some intermittent abdominal pain but otherwise feels improved. She is planned to be discharged tomorrow pending prior Auth. Interval removal of surgical lasha. Medications: Reviewed: Yes Medication Review Details: Generic Name Dose Route Start Last Admin Trade Name Freq PRN Reason Stop Dose Admin Acetaminophen 650 mg 11/27/22 03:05 11/29/22 15:26 Acetaminophen 32 5 Mg Tablet PO 650 mg Q6H PRN Administration MILD PAIN Acetylcysteine 200 mg 11/28/22 12:00 11/30/22 08:58 Acetylcysteine 2 00 Mg/Ml Sdv 4 Ml INHALATION Not Given QID.RESPIRATORY S CH Fentanyl 1 patch 11/27/22 09:00 11/30/22 09:38 Fentanyl 50 Mcg Patch TRANSDERMA 1 patch Q72H ELISEO Administration Gabapentin 1,200 mg 11/27/22 09:00 11/30/22 08:16 Gabapentin 400 M g Capsule PO 1,200 mg TID ELISEO Administration Guaifenesin 1,200 mg 11/27/22 18:00 11/30/22 08:16 Guaifenesin 600 Mg Tablet PO 1,200 mg BID ELISEO Administration Heparin Sodium (Po rcine) 5,000 unit 11/28/22 07:15 11/30/22 08:17 Heparin 5,000 Un it/Ml Inj 1 Ml SUBCUT 5,000 unit Q8H ELISEO Administration Hydromorphone HCl 0.4 mg 11/28/22 07:05 11/30/22 11:50 Hydromorphone 1 Mg/Ml Inj 1 Ml IVP 0.4 mg Q6H PRN Administration MODERATE TO SEVER E PAIN Meropenem 1,000 mg / Sodium 50 mls @ 100 mls/ hr 11/22/22 22:30 11/30/22 06:08 Chloride IV Infused Q8H ELISEO Infusion Fluconazole 200 mg in 100 mls @ 100 mls/hr 11/23/22 17:00 11/29/22 18:06 Diflucan Premix IV 11/30/22 16:59 Infused Q24H ELISEO Infusion Vancomycin HCl 1,0 00 mg/ 250 mls @ 250 mls /hr 11/26/22 05:00 11/30/22 06:38 Sodium Chloride IV Infused Q24H [facility] Infusion Protocol As Directed Insulin Human Lisp ro 0 unit 11/29/22 18:00 11/30/22 11:47 Insulin Lispro 1 00 Unit/1 Ml SUBCUT Not Given TIDWM [facility] Protocol Ipratropium Bromid e 0.5 mg 11/27/22 16:00 11/30/22 08:59 Ipratropium 0.5 Mg/2.5 Ml Neb INHALATION Not Given QID.RESPIRATORY S CH Lanolin 1 applic 11/23/22 10:08 11/28/22 10:45 Lanolin Oint 7 G m TOPICAL 1 applic PRN PRN Administration DRYNESS Levalbuterol HCl 1.25 mg 11/27/22 16:00 11/30/22 08:59 Levalbuterol 1.2 5 Mg/3 Ml Neb INHALATION Not Given QID.RESPIRATORY S CH Ondansetron HCl 4 mg 11/22/22 21:52 11/30/22 09:38 Ondansetron 2 Mg /Ml Sdv 2 Ml IVP 4 mg Q6H PRN Administration vomiting, or N/V if npo Pantoprazole Sodiu m 40 mg 11/30/22 09:00 11/30/22 08:[address] 40 Mg Tablet PO 40 mg DAILY ELISEO Administration Pregabalin 50 mg 11/23/22 18:00 11/30/22 08:16 Pregabalin 50 Mg Capsule PO 50 mg BID ELISEO Administration Sodium Chloride 4 ml 11/27/22 16:00 11/30/22 09:00 Sodium Chloride 3.5% Neb 4 Ml Neb INHALATION Not Given QID.RESPIRATORY S CH Vitals/I&O/Wt Last Vital Signs Temp 97.6 F 12/11/22 08:00 Pulse 88 12/11/22 08:00 Resp 15 12/11/22 09:32 BP 106/68 12/11/22 08:00 Pulse Ox 97 12/11/22 08:00 O2 Del Method 12/11/22 08:00 O2 Flow Rate 2 12/03/22 20:00 FiO2 40 11/28/22 16:15 12/11/22 12/11/22 12/11/22 06:59 14:59 22:59 Intake Total 740 / 2400 240 / 240 Output Total 1450 / 2300 Balance -710 / 100 240 / 240 Physical Exam Narrative: General: No acute distress, AO x3 HEENT: PERRLA, pupils bilaterally equal and reactive, pallors not present Chest: Normal vesicular breath sounds, no added sounds, equal good air entry bilaterally CVS: S1-S2 regular, no murmurs, no tachycardia, no gallops, no rubs Abdomen: Soft, nontender, non distended, colostomy in place , surgical lasha interval removal, no drains Urinary Catheter Management: Suprapubic: Cath Placed During This Visit: yes Reason for Continuing Indwelling Catheter: Chronic Indwelling Urinary Catheter on Admission Urinary Catheter Date of Insertion: 12/03/22 Urinary Catheter Time of Insertion: 14:21 Data 12/09/22 05:07 12/09/22 05:07 Other Labs: 12/09/22 CT/CT abdomen pelvis w con* [id number] IMPRESSION: ? 1.? Previously described peripheral enhancing pelvic fluid collection? has decreased in size compared to previous today measuring 2.3 x 3.1 x 5.4 CM. This measured approximately 4.1 x 5.0 x 7.1 cm previous by my measurements 2.? Additional more ill-defined fluid collection along the dorsal cervix and extending along the ovarian ligaments is relatively unchanged since November 26, 2022 3.? Mild improvement in the bilateral hydronephrosis compared to previous. 4.? Bibasilar atelectasis. 5.? Persistent but slightly improved small bowel adynamic ileus. 6.? No other significant interval changes. 7.? Dumont catheter. ? A&P Assessment and plan (1) Intra-abdominal abscess: 47 year old female with a ?past medical history of quadriplegia suprapubic catheter neurogenic bladder, recurrent ESBL UTIs, opioid induced chronic constipation,?Formerly [facility] resident, recently admitted here between 11/13-11/18 for constipation and obstipation, colonic dilatation s/p diverting colostomy to improve quality of life. She returned to ER on 11/22 with abdominal pain and nausea. CT abdomen concerning for colonic obstruction and fluid collection in the left anterior abdomen near the colostomy. s/p Exploratory laparotomy with right hemicolectomy and colostomy revision. Inoperative findings included ischemic changes of the right colon pending perforation for which right hemicolectomy was needed. Current active issues include an intra-abdominal abscess,9.2 x 9.1 x 5.0 cm , now imprving to 2.3 x 3.1 x [address] from 12/09/22. Patient is currently receiving treatment with meropenem 2 g IV every 8 hours given past medical history of multiple ESBL isolates, including Proteus mirabilis, ongoing fever. We are unable to obtain meropenem susceptibilities at out facility. Isolate from blood cx dates back to September 2022, can no longer be sent to [facility] for cx. . Currently the abscess is not amenable to IR drainage. No further surgeries are planned therefore direct cultures from the abscess are unable to be obtained. Presuming that past colonizers are the culprits here, chose meropenem for the empiric coverage. Patient is planning to be discharged tomorrow, at the time of discharge meropenem can be changed to ertapenem 1 g IV every 24 hours. She is now afberile, hemodynmaically stable, no leukocytsois, no current signs of sepsis, clinically improving. Plan to treat patient with IV ertapenem over the next 2 weeks, then repeat a CT of the abdomen and pelvis to follow-up on interval resolution of the abscess. Final antibiotic duration will be dependent on resolution of radiographic findings and clinical course. Patient is transitioning care to [facility] in [place] where she is going to be closer to her family. Since it is anticipated it may be a few weeks before she is able to be established with a new infectious disease service, we have requested that her follow-up weekly labs and CT abdomen in 2 weeks to be faxed over to the ID clinic here for review. If she is able to be established with an ID service in the next 2 weeks, care can be transitioned over to the new team. (2) Fever: Likely secondary to intra-abdominal abscess, Transition to ertapenem 1gm iv q24h at discharge. (3) Mucus plugging of bronchi: Now resolved after bronchoscopy on November 28 (4) Ischemic colon: Present on admission, now resolved, being followed by general surgery (5) Sepsis: Present on admission, now resolved. (6) Colostomy in place: Stoma management per surgery (7) History of ESBL E. coli infection: Recurrent ESBL E. coli UTIs in 2020 and 2021. Bloodstream infection with Proteus mirabilis September 2022. Placed on fosfomycin suppression as outpatient in April 2022, however treatment interrupted after 1 month, breakthrough infection with Proteus off of fosfomycin. Recommend to continue fosfomycin suppression once patient is completed with her ertapenem course. Until then fosfomycin can be on hold. (8) Suprapubic catheter: Follows with urology, recently with clogged catheter, resulting hydronephrosis, recently changed SPC in September 2022. No current evidence of UTI. (9) Recurrent UTI: As above, follows with urology (10) Stage III pressure ulcer of right buttock: Attestations Medical Necessity Statement*: per admitting. Coding Level of Care Code Acute Code for [facility] Diagnoses Intra-abdominal abscess K65.1 Fever R50.9 Mucus plugging of bronchi T17.500A Ischemic colon K55.9 Sepsis A41.[address] Z93.3 History of ESBL E. coli infection Z86.19 Suprapubic catheter Z93.59 Recurrent UTI N39.0 Stage III pressure ulcer of right buttock L89.313
--- NOTE | 2022-12-10 11:04 | PM.PN ---
Subjective Subjective: Patient much improved. Afebrile with pain under control. Ostomy producing. Tolerating regular diet. Wants to get out of the hospital Vitals/I&O/Wt Last Vital Signs Temp 97.7 F 12/11/22 03:51 Pulse 96 12/11/22 03:51 Resp 17 12/11/22 03:51 BP 97/65 12/11/22 03:51 Pulse Ox 96 12/11/22 03:51 O2 Del Method 12/11/22 02:57 O2 Flow Rate 2 12/03/22 20:00 FiO2 40 11/28/22 16:15 12/10/22 12/10/22 12/11/22 14:59 22:59 06:59 Intake Total 840 / 840 820 / 1660 640 / 2300 Output Total 850 / 850 1450 / 2300 Balance -10 / -10 820 / 810 -810 / 0 Physical Exam Narrative: General: In distress, awake alert and oriented x3 Abdomen: Soft, nondistended, tender to palpation right abdomen no guarding rebound or masses Incisions intact without erythema or exudate Ostomy pink patent and producing Urinary Catheter Management: Suprapubic: Cath Placed During This Visit: yes Reason for Continuing Indwelling Catheter: Chronic Indwelling Urinary Catheter on Admission Urinary Catheter Date of Insertion: 12/03/22 Urinary Catheter Time of Insertion: 14:21 Data 12/09/22 05:07 12/09/22 05:07 Micro: Microbiology 12/08/22 15:49 Urine Culture - Final Urine,Clean Catch A&P Assessment and plan (1) Bowel obstruction: (2) Colostomy in place: (3) Ischemic colon: Plan Status post exploratory laparotomy, lysis of adhesions for small bowel obstruction, right hemicolectomy for ischemia and colostomy revision Regular diet Medical management per hospitalist-appreciate input Infectious Disease consulted- appreciate input Plan for possible discharge tomorrow with 1 g ertapenem daily followed by repeat CT in 2 weeks Attestations Medical Necessity Statement*: Patient needs 1 more night in the hospital for observation prior to [facility] to a jail facility that has accepted her tomorrow Coding Level of Care Code Acute Code for Chg Fwd Diagnoses Bowel obstruction K56.[address] Z93.3 Ischemic colon K55.9
[2022-12-10] MEDS: lactulose oral liq 20 gm/30 mL UDC 10 GM PO ×3 (11:10→22:53)
[2022-12-10] MEDS: cyclobenzaprine 10 mg Tablet 5 MG PO (11:11)
[2022-12-10] MEDS: ondansetron 2 mg/ML SDV 2 mL 4 MG IVP (11:15)
[2022-12-10 11:45] LABS: Glucose Point of Care 147 mg/dL (70-110)
[2022-12-10] MEDS: insulin lispro 100 unit/1 mL SUBCUT (13:01)
--- NOTE | 2022-12-10 13:49 | PM.PN ---
Subjective Subjective: seen today pending insurance authorization no acute events overnight Vitals/I&O/Wt Last Vital Signs Temp 98.3 F 12/10/22 11:24 Pulse 89 12/10/22 13:28 Resp 16 12/10/22 13:21 BP 109/72 12/10/22 11:24 Pulse Ox 99 12/10/22 13:21 O2 Del Method 12/10/22 13:21 O2 Flow Rate 2 12/03/22 20:00 FiO2 40 11/28/22 16:15 12/09/22 12/10/22 12/10/22 22:59 06:59 14:59 Intake Total 240 / 800 920 / 1720 480 / 480 Output Total 1525 / 1525 1300 / 2825 Balance -1285 / -725 -380 / -1105 480 / 480 Physical Exam Narrative: General: No acute distress, awake and alert x3. HEENT: EOMI. Chest: Normal vesicular breath sounds anteriorly, no added sounds, equal good air entry bilaterally CVS: S1-S2 regular, no murmurs, no tachycardia, no gallops, no rubs Abdomen: post operative, anterior abdomen surgical dressing in place, not opened for exam by me, multiple abdominal drains present, colostomy present. Mildly tender to palpation all throughout but soft. Neuro: AOx3. Quadriplegic patient. Urinary Catheter Management: Suprapubic: Cath Placed During This Visit: yes Reason for Continuing Indwelling Catheter: Chronic Indwelling Urinary Catheter on Admission Urinary Catheter Date of Insertion: 12/03/22 Urinary Catheter Time of Insertion: 14:21 Data 12/09/22 05:07 12/09/22 05:07 Micro: Microbiology 12/08/22 15:49 Urine Culture - Final Urine,Clean Catch A&P Assessment and plan (1) Intra-abdominal collection: (2) Fever: (3) Anemia: (4) Colostomy in place: (5) Quadriplegia: (6) Therapeutic opioid induced constipation: (7) Anxiety and depression: Plan Rosanne Morales is a 47 year old female with past medical history of quadriplegia suprapubic catheter neurogenic bladder, Erecurrent ESBL UTIs, opioid induced chronic constipation,?recently admitted here between 11/13-11/18 for constipation and obstipation, colinic dilatation s/p diverting colostomy to improve quality of life. Her postoperative stay was uneventful. She returned to ER today with abdominal pain and nausea. CT abdomen concerning for colonic obstruction possible appendicitis, small bowel obstruction and fluid collection in the left anterior abdomen near the colostomy. She was taken to the Er for Exploratory laparotomy with right hemicolectomy and colostomy revision. Inoperative findings included ischemic changes of the right colon pending perforation for which right hemicolectomy was needed. Appendix did not look inflammed. Patient was brought to ICU post operatively and remained intubated. She was on phenylephrine. EBL 300 cc. Her osotomy has fecal output post operatively. Internal medicine was consulted for postop vent management as well as possible sepsis. She was extubated on postop day 3. FiO2 requirements increased and her chest x-ray showed left lung opacities with possible mucous plugging. CTA on 11/2022 through showed complete atelectasis of left upper and left lower bases due to obstruction of proximal left main bronchus which is probably due to mucous plug that there are small bilateral effusions. Bronchoscopy was performed on November 28, 2022 for therapeutic aspiration of tracheobronchial tree. Patient started to have fevers and CT abdomen pelvis on 12/06 showed intra-abdominal collections. Patient was on meropenem 1 g 3 times daily along with oral fluconazole. Peripheral enhancement seen on CT scan 9 cm x 9 cm x 5 cm. Abscess cannot be ruled out completely. Initial septic shock is resolved. Blood culture negative to date, urine culture no growth. Prior history of ESBL Proteus. #Constipation obstipation elective colostomy done November 15 #Status post exploratory laparotomy right hemicolectomy colostomy revision 11/22/22, ischemic bowel #Fever #Septic shock?resolved #Intra-abdominal fluid collection, abscess cannot be ruled out #Metabolic acidosis?resolved #Postop blood loss anemia?stable resolved #Respiratory failure secondary to left lung collapse due to mucous plugging?status post bronchoscopy/resolved. #Bilateral hydroureteronephrosis - Patient has been afebrile overnight. Infectious disease consulted. - Discharge to senior living with IV ertapenem 1 g daily ? Continue meropenem 2 g 3 times daily for now, continue fluconazole to complete 7-day course. ? Continue on hypertonic saline, Mucomyst. Incentive spirometry and flutter valve. ?Mild right greater than left hydroureteronephrosis. Urology has seen the patient in the past, and at that time they decided not for any intervention. Appreciated again on CAT scan done on 12/02. - Called brother but unable to get a hold of him. - Plan to dc patient to [facility] in AM. She will have a repeat ct abd in 2 weeks. Analgesia: Continue home dose of oxycodone 5 every 6 hours as needed Glycemic control: Not needed Nutrition: Regular diet as per primary team CODE STATUS: Full code PUD prophylaxis: Protonix DVT prophylaxis: Heparin 5000 every 12 hourly. Discharge planning: Discharge to SNF at [facility] Medical Necessity Statement*: Defer to primary team Diagnoses Intra-abdominal collection R18.8 Fever R50.9 Anemia D64.[address] Z93.3 Quadriplegia G82.50 Therapeutic opioid induced constipation K59.03; T40.2X5A Anxiety and depression F41.9; F32.A
--- NOTE | 2022-12-10 14:57 | PC.NURSE ---
Abrahan, from [employer], was provided update on patient status. Plan is for transport to arrive at 10am. Family and patient updated. [phone] provided by Abrahan in case patient condition changes overnight or develops additional fevers.
[2022-12-10] MEDS: fentaNYL 50 mcg Patch 1 PATCH TRANSDERMA (15:56)
[2022-12-10] MEDS: pregabalin 50 mg Capsule PO ×2 (15:56→17:38)
[2022-12-10 17:09] LABS: Glucose Point of Care 127 mg/dL (70-110)
[2022-12-10] MEDS: acetaminophen 325 mg Tablet 650 MG PO (17:38)
[2022-12-10] MEDS: atorvastatin 40 mg Tablet 20 MG PO (20:23)
[2022-12-10 22:15] LABS: Glucose Point of Care 130 mg/dL (70-110)
[2022-12-10] MEDS: oxyCODONE-APAP 5-325 mg Tablet 1 TAB PO (22:53)
[2022-12-11] VITALS (7 sets, daily range): BP systolic 97–106; BP diastolic 65–68; PULSE 77–96; RESP 15–20; TEMP 36.4–36.5; O2SAT 96–97
[2022-12-11] MEDS: ipratropium 0.5 mg/2.5 mL Neb INHALATION ×2 (02:57→07:29)
[2022-12-11] MEDS: levalbuterol 0.63 mg/3 mL Neb INHALATION ×2 (02:57→07:29)
[2022-12-11] MEDS: levalbuterol 1.25 mg/3 mL Neb INHALATION (02:57)
[2022-12-11] MEDS: meropenem 2,000 MG in sodium chloride 0.9% (100 ml) 100 ML 200 MG IV (05:51)
[2022-12-11] MEDS: lactulose oral liq 20 gm/30 mL UDC 10 GM PO (05:51)
--- NOTE | 2022-12-11 06:15 | P.DS_ITS ---
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 Infectious disease Primary Care Provider: Shakira Cruz MD Diagnoses at Discharge Discharge Diagnosis (1) Bowel obstruction: Status: Acute (2) Colostomy in place: Status: Acute (3) Ischemic colon: Status: Acute Reason for Visit Reason for Visit: ABD PAIN Hospital Course Hospital Course Rosanne Morales is a 47 year old female with a ?past medical history of quadriplegia suprapubic catheter neurogenic bladder, recurrent ESBL UTIs, opioid induced chronic constipation,?recently admitted here between 11/13-11/18 for constipation and obstipation, colonic dilatation s/p diverting colostomy to improve quality of life. Her postoperative stay was uneventful. She returned to ER on 11/22 with abdominal pain and nausea. CT abdomen concerning for colonic obstruction possible appendicitis, small bowel obstruction and fluid collection in the left anterior abdomen near the colostomy. She was taken to the OR for Exploratory laparotomy with right hemicolectomy and colostomy revision. Inoperative findings included ischemic changes of the right colon pending perforation for which right hemicolectomy was needed. Appendix and ileum were densely adhered to the right ovary from her previous hysterectomy, requiring lysis of adhesions and a small portion of small bowel resected with the right c olon. Patient was brought to ICU post operatively and remained intubated until 3 days post op.SHe required pressors initially but was able to be weaned off within 24 hrs.? Post op course has been notable for left lung opacities and mucous plugging for which she underwent bronchoscopy for therapeutic aspiration of mucous plugging on 11/28. Respiratory cx negative. Respiratpry status has been stable since then. On 12/02 patient started spiking fever to 101F repeat imaging showed that the fluid collection in the abdomen had coalesced into an abscess. Interventional radiology could not access this abscess. Infectious disease was consulted. Patient began a course of meropenem. Infectious disease recommended 1 g of ertapenem every 24 hours after discharge with repeat CT abdomen in 2 weeks. Physical Exam Narrative: General: In distress, awake alert and oriented x3 Abdomen: Soft, nondistended, tender to palpation right abdomen no guarding rebound or masses Incisions intact without erythema or exudate Ostomy pink patent and producing Urinary Catheter Management: Suprapubic: Cath Placed During This Visit: yes Reason for Continuing Indwelling Catheter: Chronic Indwelling Urinary Catheter on Admission Urinary Catheter Date of Insertion: 12/03/22 Urinary Catheter Time of Insertion: 14:21 Discharge Data Studies Completed and Pending Completed Studies During Hospitalization Category Date Time Status CT abdomen pelvis w con* [id number] Routine Cat Scan 12/06/22 09:[address] abdomen pelvis w con* [id number] Routine Cat Scan 12/09/22 07:[address] abdomen pelvis w con* [id number] Stat Cat Scan 11/22/22 12:[address] abdomen pelvis w con* [id number] Urgent Cat Scan 11/26/22 10:[address] abdomen pelvis wo con [id number] Routine Cat Scan 12/02/22 16:[address] angio chest PE protcl [id number] Routine Cat Scan 11/27/22 09:10 Completed CXRP [XR chest 1V portable [id number]] Stat Exams 11/23/22 02:14 Completed CXRP [XR chest 1V portable 60750] Stat Exams 11/23/22 04:51 Completed XR acute abdomen series [id number] Urgent Exams 12/01/22 19:59 Completed XR chest 1V portable [id number] QAM Exams 11/24/22 06:00 Completed XR chest 1V portable [id number] QAM Exams 11/25/22 06:00 Completed XR chest 1V portable [id number] QAM Exams 11/26/22 06:00 Completed XR chest 1V portable [id number] Routine Exams 11/28/22 05:00 Completed XR chest 1V portable [id number] Routine Exams 11/28/22 08:44 Completed XR chest 1V portable [id number] Routine Exams 11/29/22 07:00 Completed XR chest 1V portable [id number] Routine Exams 11/30/22 05:00 Completed XR chest 1V portable [id number] Routine Exams 12/02/22 08:33 Completed XR chest 1V portable [id number] Stat Exams 11/23/22 05:49 Completed Cytology [PTH] Routine Pth 11/28/22 08:35 Completed Pathology: Surgical [PTH] Routine Pth 11/22/22 22:10 Completed Pending at discharge Category Date Time Status C DIFF [Clostridioides Difficile PCR] Routine Lab 12/03/22 18:37 Received Fungal Culture not HR/SK/BL Routine Lab 11/28/22 08:35 Results Miscellaneous Test Routine Lab 11/28/22 08:35 Received Sputum Culture Routine Lab 12/02/22 08:00 Uncollected Radiology Impressions Chest CTA 11/27/22 09:10 IMPRESSION: 1. Complete atelectasis LEFT upper and LEFT lower lobes due to obstruction of the proximal LEFT mainstem bronchus which is probably due to mucus again. New atelectasis since 09/25/2022. 2. Small bilateral pleural effusions. 3. No pulmonary embolism. 4. Subsegmental atelectasis RIGHT lung base. Notified Jesse Kunz MD at 11/27/2022 12:42 PM. Chest/Abdomen X-ray 12/01/22 19:59 IMPRESSION: 1. Postop and chronic findings, no bowel obstruction noted. 2. Perhaps mild postop ileus. Chest X-Ray 12/02/22 08:33 IMPRESSION: 1. No change since 11/30/2022. 2. Right subclavian central line tip is in the right atrium. Abdomen/Pelvis CT 12/09/22 07:00 IMPRESSION: 1. Previously described peripheral enhancing pelvic fluid collection has decreased in size compared to previous today measuring 2.3 x 3.1 x 5.4 CM. This measured approximately 4.1 x 5.0 x 7.1 cm previous by my measurements 2. Additional more ill-defined fluid collection along the dorsal cervix and extending along the ovarian ligaments is relatively unchanged since November 26, 2022 3. Mild improvement in the bilateral hydronephrosis compared to previous. 4. Bibasilar atelectasis. 5. Persistent but slightly improved small bowel adynamic ileus. 6. No other significant interval changes. 7. Dumont catheter. Notified Gwen Robins MD at 12/09/2022 10:45 AM. Laboratory Results WBC 5.8 10^3/uL (4.0-10.0) 12/09/22 05:07 RBC 3.42 10^6/uL (4.1-5.3) L 12/09/22 05:07 Hgb 9.2 g/dL (11.5-15.3) L 12/09/22 05:07 Hct 30.2 % (37.0-47.0) L 12/09/22 05:07 MCV 88.3 fl (81-99) 12/09/22 05:07 MCH 26.9 pg (28.0-34.0) L 12/09/22 05:07 MCHC 30.5 g/dL (30.0-36.0) 12/09/22 05:07 RDW 16.3 % (12.1-15.1) H 12/09/22 05:07 Plt Count 370 10^3/cmm (130-400) 12/09/22 05:07 MPV 10.1 fL (7.4-10.4) 12/09/22 05:07 Neut % (Auto) 62.8 % 12/09/22 05:07 Lymph % (Auto) 21.7 % 12/09/22 05:07 [place] % (Auto) 12.8 % 12/09/22 05:07 Eos % (Auto) 0.3 % 12/09/22 05:07 Baso % (Auto) 0.7 % 12/09/22 05:07 Neut # (Auto) 3.62 10^3/uL (1.8-7.7) 12/09/22 05:07 Lymph # (Auto) 1.3 10^3/uL (0.8-4.8) 12/09/22 05:07 [place] # (Auto) 0.7 10^3/uL (0.2-0.9) 12/09/22 05:07 Eos # (Auto) 0.0 10^3/uL (0.0-0.8) 12/09/22 05:07 Baso # (Auto) 0.0 10^3/uL (0.0-0.1) 12/09/22 05:07 Nucleated RBC % (auto) 0 % 12/09/22 05:07 Nucleated RBCs # 0.0 /100WBC 12/09/22 05:07 Specimen Type Arterial 11/27/22 08:04 Sample Site Radial, left 11/27/22 08:04 ABG pH 7.41 (7.35-7.45) 11/27/22 08:04 ABG pCO2 32.6 mmHg (35-45) L 11/27/22 08:04 ABG pO2 53.6 mmHg (80.0-100.0) L 11/27/22 08:04 ABG HCO3 20.4 mmol/L (22-26) L 11/27/22 08:04 ABG O2 Saturation 89.9 11/27/22 08:04 ABG Base Excess -3.7 mmol/L (-2.0-2.0) L 11/27/22 08:04 Sabino Test Pos 11/27/22 08:04 A-a O2 Gradient 57.9 mmHg (5-10) H 11/27/22 08:04 Hematocrit 32.3 % (37-47) L 11/27/22 08:04 Hgb O2 Saturation 88.5 % (95-100) L 11/27/22 08:04 Carboxyhemoglobin 1.2 %THgb (0.4-20.1) 11/27/22 08:04 Methemoglobin 0.4 % (0.4-1.5) 11/27/22 08:04 Total Hemoglobin 10.5 g/dL (12-16) L 11/27/22 08:04 Sodium 141.0 mmol/L (131-143) 11/27/22 08:04 Potassium 3.5 mmol/L (3.5-5.0) 11/27/22 08:04 Glucose 106.0 mg/dL (70-115) 11/27/22 08:04 Ionized Calcium 1.2 mmol/L (1.1-1.4) 11/27/22 08:04 O2 Delivery Device Hag 11/27/22 08:04 O2 Liters/Min 30.0 % 11/27/22 08:04 FiO2 75.0 % 11/27/22 08:04 Tidal Volume 0.35 11/25/22 04:10 PEEP 5.0 cmH20 11/25/22 04:10 Screen And Cyclone Repairer ID Monro 11/27/22 08:04 Sodium 138 mmol/L (136-145) 12/09/22 05:07 Potassium 4.5 mmol/L (3.5-5.1) 12/09/22 05:07 Chloride 99 mmol/L (98-107) 12/09/22 05:07 Carbon Dioxide 27 mmol/L (22-29) 12/09/22 05:07 Anion Gap 16.5 (5-19) 12/09/22 05:07 BUN 10 mg/dL (6-20) 12/09/22 05:07 Creatinine 0.5 mg/dL (0.5-0.9) 12/09/22 05:07 GFR Calculation 132.2 mL/min (90-130) H 12/09/22 05:07 Glucose 111 mg/dL (65-115) 12/09/22 05:07 POC Glucose 130 mg/dL (70-110) H 12/10/22 21:26 Calculated Osmolality 286 mOsm/kg (285-295) 12/09/22 05:07 Lactic Acid 0.9 mmol/L (0.5-2.2) 11/23/22 18:19 Lactate 1.4 mmol/L (0.5-2.2) 11/23/22 06:29 Calcium 9.0 mg/dL (8.5-10.5) 12/09/22 05:07 Phosphorus 2.9 mg/dL (2.5-4.5) 12/09/22 05:07 Magnesium 2.3 mg/dL (1.7-2.3) 12/09/22 05:07 Total Bilirubin 0.2 mg/dL (0.15-1.2) 12/03/22 03:02 AST 13 U/L (0-32) 12/03/22 03:02 ALT 19 U/L (0-33) 12/03/22 03:02 Alkaline Phosphatase 76 U/L (35-105) 12/03/22 03:02 Total Protein 6.1 g/dL (6.6-8.7) L 12/03/22 03:02 Albumin 3.0 g/dL (3.5-5.2) L 12/03/22 03:02 Globulin 3.1 g/dL (1.3-4.6) 12/03/22 03:02 Lipase 16 U/L (13-60) 11/22/22 14:08 Procalcitonin 0.17 ng/mL (0-0.5) 12/02/22 05:45 Urine Color Yellow (Yellow) 12/08/22 15:49 Urine Appearance Hazy (CLEAR) A 12/08/22 15:49 Urine pH 7 (5-7) 12/08/22 15:49 Ur Specific [place] 1.010 (1.005-1.030) 12/08/22 15:49 Urine Protein Trace (Negative) 12/08/22 15:49 Urine Glucose (UA) Norm (Normal) 12/08/22 15:49 Urine Ketones 1+ (Negative) H 12/08/22 15:49 Urine Blood Trace (Negative) H 12/08/22 15:49 Urine Nitrate Negative (Negative) 12/08/22 15:49 Urine Bilirubin Neg (Negative) 12/08/22 15:49 Urine Urobilinogen Neg mg/dL (Negative) 12/08/22 15:49 Ur Leukocyte Esterase 1+ (Negative) H 12/08/22 15:49 Urine RBC 0-4 /hpf (0-2) H 12/08/22 15:49 Urine WBC 10-15 /hpf (0-5) H 12/08/22 15:49 Ur Squamous Epith Cells 5-10 /hpf (0-5) H 12/08/22 15:49 Ur Renal Epithelial Cell 5-10 /hpf 12/08/22 15:49 Amorphous Sediment Not Reportable 12/08/22 15:49 Urine Bacteria None /hpf (NONE) 12/08/22 15:49 Nasal Influ A H1 2009 PCR Not detected (NOT DETECT) 12/02/22 08:50 Bronch Specimen Source Left lower lobe 11/28/22 08:35 Bronchial Fluid Color Slight pink 11/28/22 08:35 Bronchial Fluid Appearance Cloudy (CLEAR) 11/28/22 08:35 Bronchial Fluid WBC 288 /uL 11/28/22 08:35 Bronchial Fluid RBC 1200 10^3/uL 11/28/22 08:35 Bronch Cells Counted 200 11/28/22 08:35 Bronchial Neutrophils 51.00 % (0.9-2.3) H 11/28/22 08:35 Bronchial Lymphocytes 41.00 % (10.71-12.91) H 11/28/22 08:35 Bronchial Macrophages 8.00 % (83.6-86.8) L 11/28/22 08:35 Vancomycin Trough 11.1 ug/mL (10-15) 11/29/22 03:55 Adenovirus (PCR) Not detected (NOT DETECT) 12/02/22 08:50 C. pneumoniae DNA (PCR) Not detected (NOT DETECT) 12/02/22 08:50 Coronavirus 229E (PCR) Not detected (NOT DETECT) 12/02/22 08:50 Human Metapneumovir PCR Not detected (NOT DETECT) 12/02/22 08:50 Influenza A (H1) PCR Not detected (NOT DETECT) 12/02/22 08:50 Influenza A (H3) PCR Not detected (NOT DETECT) 12/02/22 08:50 Influenza Type A (PCR) Not detected (NOT DETECT) 12/02/22 08:50 Influenza Type B (PCR) Not detected (NOT DETECT) 12/02/22 08:50 Legionella Source 11/28/22 08:35 L.pneumophila Antigen Not detected 11/28/22 08:35 M. pneumoniae (PCR) Not detected (NOT DETECT) 12/02/22 08:50 Parainfluenza 1 (PCR) Not detected (NOT DETECT) 12/02/22 08:50 Parainfluenza 2 (PCR) Not detected (NOT DETECT) 12/02/22 08:50 Parainfluenza 3 (PCR) Not detected (NOT DETECT) 12/02/22 08:50 Parainfluenza 4 (PCR) Not detected (NOT DETECT) 12/02/22 08:50 RSV Type A (PCR) Not detected (NOT DETECT) 12/02/22 08:50 RSV Type B (PCR) Not detected (NOT DETECT) 12/02/22 08:50 Entero/Rhino (PCR) Not detected (NOT DETECT) 12/02/22 08:50 SARS-CoV-2 (PCR) Not detected (NOT DETECT) 12/02/22 08:50 SARS-CoV-2 Ag (Rapid) negative (Negative) 12/08/22 15:46 Blood Type A Positive 11/22/22 20:15 Rho(D) Type Positive 11/22/22 20:15 Antibody Screen Negative 11/22/22 20:15 Crossmatch See Detail 11/22/22 20:15 Procedures Performed Exploratory laparotomy with lysis of adhesions, right hemicolectomy and colostomy revision Bronchoscopy Vitals Last Vital Signs Temp 97.7 F 12/11/22 03:51 Pulse 96 12/11/22 03:51 Resp 17 12/11/22 03:51 BP 97/65 12/11/22 03:51 Pulse Ox 96 12/11/22 03:51 O2 Del Method 12/11/22 02:57 O2 Flow Rate 2 12/03/22 20:00 FiO2 40 11/28/22 16:15 Discharge Plan Discharge Patient Disposition: Xfer SNF Condition: Stable Prescriptions: Continued Linzess 145 mcg capsule 145 mcg PO DAILY ascorbic acid (vitamin C) [Vitamin C] 1,000 mg Tablet 1,000 mg PO BID@08,20 pantoprazole 40 mg Tablet,Delayed Release (Dr/Ec) 40 mg PO DAILY sennosides-docusate sodium [Senna Plus] 8.6-50 mg Tablet 2 tab PO BID@08,20 pravastatin 40 mg Tablet 40 mg PO BEDTIME naloxone 0.4 mg/mL Solution 0.4 mg IM Q2M PRN (Reason: overdose) acetaminophen 500 mg Tablet 500 mg PO Q6H PRN (Reason: Pain) simethicone 80 mg Tablet,Chewable 80 mg PO TIDWM fentanyl 50 mcg/hr Patch 72 Hour 1 patch TRANSDERMAL Q72H Qty: 5 0RF morphine concentrate 100 mg/5 mL (20 mg/mL) solution 5 mg PO Q4H PRN (Reason: Pain) Qty: 30 0RF alprazolam [Xanax] 0.25 mg Tablet 0.25 mg PO TID PRN (Reason: Anxiety) Qty: 10 0RF ondansetron HCl 4 mg Tablet 4 mg PO Q6H PRN (Reason: Nausea) Relistor 12 mg/0.6 mL Syringe 0.6 ml SUBCUT Q3D PRN (Reason: Constipation) gabapentin 600 mg tablet 1,200 mg PO TID docusate sodium [Colace] 100 mg Capsule 100 mg PO BID insulin lispro [Humalog KwikPen Insulin] 100 unit/mL Insulin Pen See Rx Instructions .ROUTE .COMPLEX Rx Instructions: SLIDING SCALE- BLOOD SUGAR 125-150 GIVE 2 UNITS, 151-200 GIVE 4 UNITS, 201- 250 GIVE 6 UNITS, 251-300 GIVE 8 UNITS, 301-350 GIVE 10 UNITS, 351-400 GIVE 12 UNITS pregabalin [Lyrica] 50 mg Capsule 50 mg PO BID calcium carbonate [Tums Ultra] 400 mg calcium (1,000 mg) Tablet,Chewable 400 mg PO DAILY PRN (Reason: Heartburn) potassium chloride 20 mEq Tablet Extended Release 20 meq PO DAILY ketoconazole 2 % Cream 1 applic TOPICAL BID polyethylene glycol 3350 17 gram Powder In Packet 17 g PO DAILY Qty: 30 0RF magnesium hydroxide [Milk of Magnesia] 400 mg/5 mL suspension 5 ml PO TID PRN (Reason: constipation) Qty: 355 0RF metoclopramide HCl [Reglan] 5 mg tablet 5 mg PO DAILY PRN (Reason: nausea and vomiting) Qty: 14 0RF oxycodone-acetaminophen 5-325 mg Tablet 1 - 2 tab PO Q6H PRN (Reason: Pain) hydroxyzine HCl 25 mg Tablet 50 mg PO Q6H PRN (Reason: Anxiety) metformin 1,000 mg Tablet 1,000 mg PO BID lidocaine 5 % Adhesive Patch,Medicated 1 patch TOPICAL Q12H Rx Instructions: leave on most painful area for up to 12 hrs sertraline 50 mg Tablet 50 mg PO DAILY cyclobenzaprine 5 mg Tablet 5 mg PO TID PRN (Reason: Muscle Pain) diclofenac sodium 1 % Gel 2 g TOPICAL BID PRN (Reason: Pain) Rx Instructions: apply to single elbow, wrist or hand; for hand includes palm/fingers/back of hand lidocaine 4 % Cream 1 applic TOPICAL BID PRN (Reason: Pain) methenamine hippurate 1 gram Tablet 1 g PO BID oxybutynin chloride 5 mg Tablet 5 mg PO TID Januvia 25 mg Tablet 25 mg PO DAILY Rx Instructions: Give with 50 mg to equal 75 mg daily Januvia 50 mg Tablet 50 mg PO DAILY Rx Instructions: Give with 25 mg to equal 75 mg daily fosfomycin tromethamine 3 gram packet 3 g PO Q3D 30 Days Qty: 10 5RF bisacodyl 10 mg Suppository 10 mg SC DAILY PRN (Reason: Constipation) Discharge Orders: Discharge Order (Routine); Ordered 12/11/22 Ordered By: Andrew Lo Referrals: [facility] [Outside] Andrew Lo DO [Physician] - 2 weeks Shakira Cruz MD [Primary Care Provider] - 4-7 days Discharge Diet: Advance as tolerated Discharge Activity: Resume usual activity Patient Instructions: Opioid Safety Discharge Attestations Time Spent in Discharge Care*: less than 30 min Status at Discharge: Cognitive status at discharge: cognitively intact , Behavioral status at discharge: cooperative , Quality Metrics Clinical Quality Measures [ No reported AMI, CVA or VTE this stay] Coding Level of Care Code Acute Code for Chg Fwd Diagnoses Bowel obstruction K56.[address] Z93.3 Ischemic colon K55.9
[2022-12-11 06:45] LABS: Glucose Point of Care 133 mg/dL (70-110)
[2022-12-11] MEDS: sodium chloride 3.5% neb 4 mL Neb INHALATION (07:29)
[2022-12-11] MEDS: guaiFENesin 600 mg Tablet 1200 MG PO (08:19)
[2022-12-11] MEDS: oxybutynin 5 mg Tablet PO (08:19)
[2022-12-11] MEDS: heparin 5,000 unit/mL INJ 1 mL 5000 UNIT SUBCUT (08:19)
[2022-12-11] MEDS: gabapentin 400 mg Capsule 1200 MG PO (08:19)
[2022-12-11] MEDS: pantoprazole DR 40 mg Tablet PO (08:19)
[2022-12-11] MEDS: sertraline 50 mg Tablet PO (08:19)
--- NOTE | 2022-12-11 08:21 | PM.PN ---
Subjective Subjective: No active complaints. Patient excited to go to [place]. She says she will be seeing her family after 5 years. She will be flying from [place] to [place] today. Vitals/I&O/Wt Last Vital Signs Temp 97.7 F 12/11/22 03:51 Pulse 88 12/11/22 07:40 Resp 20 H 12/11/22 07:30 BP 97/65 12/11/22 03:51 Pulse Ox 96 12/11/22 07:30 O2 Del Method 12/11/22 07:30 O2 Flow Rate 2 12/03/22 20:00 FiO2 40 11/28/22 16:15 12/10/22 12/11/22 12/11/22 22:59 06:59 14:59 Intake Total 820 / 1660 740 / 2400 Output Total 1450 / 2300 Balance 820 / 810 -710 / 100 Physical Exam Narrative: General: In distress, awake alert and oriented x3 Abdomen: Soft, nondistended, tender to palpation right abdomen no guarding rebound or masses Incisions intact without erythema or exudate states abdomen is sore. Ostomy pink patent and producing Lungs clear to auscultation bilaterally no wheezes no rhonchi. Normal S1-S2 Quadriplegic patient. Urinary Catheter Management: Suprapubic: Cath Placed During This Visit: yes Reason for Continuing Indwelling Catheter: Chronic Indwelling Urinary Catheter on Admission Urinary Catheter Date of Insertion: 12/03/22 Urinary Catheter Time of Insertion: 14:21 Data 12/09/22 05:07 12/09/22 05:07 Micro: Microbiology 12/08/22 15:49 Urine Culture - Final Urine,Clean Catch A&P Assessment and plan (1) Intra-abdominal collection: (2) Fever: (3) Anemia: (4) Colostomy in place: (5) Quadriplegia: (6) Therapeutic opioid induced constipation: (7) Anxiety and depression: Plan Rosanne Morales is a 47 year old female with past medical history of quadriplegia suprapubic catheter neurogenic bladder, Erecurrent ESBL UTIs, opioid induced chronic constipation,?recently admitted here between 11/13-11/18 for constipation and obstipation, colinic dilatation s/p diverting colostomy to improve quality of life. Her postoperative stay was uneventful. She returned to ER today with abdominal pain and nausea. CT abdomen concerning for colonic obstruction possible appendicitis, small bowel obstruction and fluid collection in the left anterior abdomen near the colostomy. She was taken to the Er for Exploratory laparotomy with right hemicolectomy and colostomy revision. Inoperative findings included ischemic changes of the right colon pending perforation for which right hemicolectomy was needed. Appendix did not look inflammed. Patient was brought to ICU post operatively and remained intubated. She was on phenylephrine. EBL 300 cc. Her osotomy has fecal output post operatively. Internal medicine was consulted for postop vent management as well as possible sepsis. She was extubated on postop day 3. FiO2 requirements increased and her chest x-ray showed left lung opacities with possible mucous plugging. CTA on 11/2022 through showed complete atelectasis of left upper and left lower bases due to obstruction of proximal left main bronchus which is probably due to mucous plug that there are small bilateral effusions. Bronchoscopy was performed on November 28, 2022 for therapeutic aspiration of tracheobronchial tree. Patient started to have fevers and CT abdomen pelvis on 12/06 showed intra-abdominal collections. Patient was on meropenem 1 g 3 times daily along with oral fluconazole. Peripheral enhancement seen on CT scan 9 cm x 9 cm x 5 cm. Abscess cannot be ruled out completely. Initial septic shock is resolved. Blood culture negative to date, urine culture no growth. Prior history of ESBL Proteus. #Constipation obstipation elective colostomy done November 15 #Status post exploratory laparotomy right hemicolectomy colostomy revision 11/22/22, ischemic bowel #Fever #Septic shock?resolved #Intra-abdominal fluid collection, abscess cannot be ruled out #Metabolic acidosis?resolved #Postop blood loss anemia?stable resolved #Respiratory failure secondary to left lung collapse due to mucous plugging?status post bronchoscopy/resolved. #Bilateral hydroureteronephrosis - Patient has been afebrile overnight. Infectious disease consulted. - Discharge to skilled nursing with IV ertapenem 1 g daily ? Continue meropenem 2 g 3 times daily for now, continue fluconazole to complete 7-day course. ? Continue on hypertonic saline, Mucomyst. Incentive spirometry and flutter valve. ?Mild right greater than left hydroureteronephrosis. Urology has seen the patient in the past, and at that time they decided not for any intervention. Appreciated again on CAT scan done on 12/02. - Plan to dc patient to [facility] today. She will have a repeat ct abd in 2 weeks. Discharge planning: Discharge to SNF at [place] near [facility] Attestations Medical Necessity Statement*: Discharge today. Diagnoses Intra-abdominal collection R18.8 Fever R50.9 Anemia D64.[address] Z93.3 Quadriplegia G82.50 Therapeutic opioid induced constipation K59.03; T40.2X5A Anxiety and depression F41.9; F32.A
[2022-12-11] MEDS: pregabalin 50 mg Capsule PO (08:32)
--- NOTE | 2022-12-11 09:21 | PC.NURSE ---
Report called to KRIS Harrison, at [facility].
[2022-12-11] MEDS: oxyCODONE-APAP 5-325 mg Tablet 1 TAB PO (09:32)
[2022-12-11] MEDS: ondansetron 2 mg/ML SDV 2 mL 4 MG IVP (09:32)
--- NOTE | 2022-12-11 10:32 | PC.NURSE ---
Patients brother, Sabino, notified that [facility] is leaving with patient at this time.
== END 2022-12-11 10:34 | disposition short-term general hospital (02) | DRG 329 ==
LOC: ER 14:39 → OR 14:56 → ICU 22:03 → MEDSURG 12-03 14:09
PROVIDERS: Internal Medicine; Internal Medicine Pulmonary Disease; Student in an Organized Health Care Education/Training Program; Admitting Provider Surgery; Emergency Provider Emergency Medicine; PCP Family Medicine; Visit Provider Surgery
PROC: 0DTF0ZZ Resection of Right Large Intestine, Open Approach (ICD-10-PCS; principal; 2022-11-22 15:30)
PROC: 0DTF0ZZ Resection of Right Large Intestine, Open Approach (ICD-10-PCS; CPT 49000; 2022-11-22 15:30)
PROC: 0DTF0ZZ Resection of Right Large Intestine, Open Approach (ICD-10-PCS; CPT 44140; 2022-11-22 15:30)
PROC: 0DTF0ZZ Resection of Right Large Intestine, Open Approach (ICD-10-PCS; CPT 44950; 2022-11-22 15:30)
PROC: 0BJ08ZZ Inspection of Tracheobronchial Tree, Via Natural or Artificial Opening Endoscopic (ICD-10-PCS; CPT 31622; principal; 2022-11-28 08:00)
DX: K56.50 Intestinal adhesions [bands], unspecified as to partial versus complete obstruction (principal); A41.9 Sepsis, unspecified organism; G82.50 Quadriplegia, unspecified; L89.313 Pressure ulcer of right buttock, stage 3; K65.1 Peritoneal abscess; R65.21 Severe sepsis with septic shock; J18.9 Pneumonia, unspecified organism; J96.01 Acute respiratory failure with hypoxia; D62 Acute posthemorrhagic anemia; E87.20 Acidosis, unspecified; J98.11 Atelectasis; T17.590A Other foreign object in bronchus causing asphyxiation, initial encounter; N13.30 Unspecified hydronephrosis; K55.9 Vascular disorder of intestine, unspecified; D63.1 Anemia in chronic kidney disease; K59.03 Drug induced constipation; T40.605A Adverse effect of unspecified narcotics, initial encounter; F41.8 Other specified anxiety disorders; Z96.0 Presence of urogenital implants; N31.9 Neuromuscular dysfunction of bladder, unspecified; Z87.440 Personal history of urinary (tract) infections; Z93.3 Colostomy status; Z79.891 Long term (current) use of opiate analgesic; Z79.4 Long term (current) use of insulin; Z79.84 Long term (current) use of oral hypoglycemic drugs; Z98.1 Arthrodesis status; E83.42 Hypomagnesemia; E87.6 Hypokalemia; Z90.3 Acquired absence of stomach [part of]; Z90.6 Acquired absence of other parts of urinary tract; E78.5 Hyperlipidemia, unspecified; K21.9 Gastro-esophageal reflux disease without esophagitis; E11.22 Type 2 diabetes mellitus with diabetic chronic kidney disease; N18.9 Chronic kidney disease, unspecified; E11.40 Type 2 diabetes mellitus with diabetic neuropathy, unspecified; E11.51 Type 2 diabetes mellitus with diabetic peripheral angiopathy without gangrene; Z86.16 Personal history of COVID-19; X58.XXXA Exposure to other specified factors, initial encounter
CPT/HCPCS: 12345; 31624; 31645; 36415; 36416; 36430; 36569; 36592; 36600; 51702; 71045; 71275; 74022; 74176; 74177; 80048; 80051; 80053; 80202; 80503; 81001; 82330; 82805; 82962; 83605; 83690; 83735; 84100; 84145; 85025; 86850; 86900; 86920; 87040; 87070; 87075; 87086; 87102; 87205; 87206; 87278; 87426; 87486; 87493; 87581; 87633; 88112; 88305; 88309; 89050; 92523; 92526; 92610; 93005; 94002; 94003; 94640; 94664; 94669; 94799; 96372; 96374; 96375; 96376; 99285; C9113; J0131; J0694; J1100; J1170; J1450; J1644; J1815; J1940; J2060; J2185; J2270; J2370; J2405; J2704; J2997; J3010; J3370; J3475; J3480; J3490; J7030; J7040; J7050; J7060; J7120; J7608; J7614; J7644; J7799; J8597; P9040; P9045; P9047; Q9967